=== PATIENT | female | born 1960 | race Caucasian/White ===

== ENCOUNTER 2023-03-07 16:28 | Outpatient (OUT) | payer OTHER, SELFPAY ==
--- NOTE | 2023-03-07 16:32 | XR_ITS ---
The [address] [address] Patient Name: MIRIAM DE PAZ MRN: [id number] date: 1960 Sex: F Assigned Patient Location: [facility] Current Patient Location: RAD Accession/Order Number: [id number] Exam Date: 03/07/2023 16:35 Report Date: 03/07/2023 16:55 At the request of: ULI MATHEW Procedure: XR chest 2V EXAM: XR chest 2V HISTORY: PNEUMONIA. J18.9 . Follow-up study. COMPARISON: 02/22/2023 TECHNIQUE: Upright PA and lateral chest x-ray FINDINGS: Significant infiltrates are seen in the lower lungs. The upper lungs are clear and there is no evidence of an effusion or pneumothorax. The heart is not enlarged and the vasculature is not distended. The osseous structures are grossly intact. XR/XR chest 2V IMPRESSION: Significant infiltrates are seen in the lower lungs. These are slightly more prominent since the prior study. There is no clear evidence of an effusion or pneumothorax. There is no evidence of cardiac decompensation. Further evaluation with a CT scan of the chest is recommended. Electronically authenticated by: ELIDIA HERRERA Date: 03/07/2023 16:55
== END 2023-03-07 16:29 | disposition home or self-care (01) ==
LOC: RAD 16:31
PROVIDERS: PCP Family Medicine; Visit Provider Internal Medicine
DX: J18.9 Pneumonia, unspecified organism (principal)
CPT/HCPCS: 71046

== ENCOUNTER 2023-03-21 14:31 | Outpatient (OUT) | payer OTHER, SELFPAY ==
--- NOTE | 2023-03-21 14:50 | CT_ITS ---
[address] [address] Patient Name: MIRIAM DE PAZ MRN: [id number] date: 1960 Sex: F Assigned Patient Location: CT Current Patient Location: CT Accession/Order Number: [id number] Exam Date: 03/21/2023 14:45 Report Date: 03/21/2023 15:33 At the request of: ULI MATHEW Procedure: CT chest wo con CT chest wo con, 03/21/2023 2:45 PM EDT INDICATION: Pneumonia J18.9, Bronchiestasia J47.9 COMPARISON: Radiograph the chest 02/22/2023 TECHNIQUE: Thin-section axial CT images of the chest were acquired without contrast. Supplemental 2D reformatted images were generated and reviewed as needed. Dose reduction techniques were achieved by using automated exposure control and/or adjustment of mA and/or kV according to patient size and/or use of iterative reconstruction technique. FINDINGS: Heart is upper limits of normal for size. Small pericardial effusion. Coronary artery calcification and calcified atherosclerotic change within the aorta. No aortic aneurysm. Enlarged precarinal lymph node 1.3 cm short axis. Enlarged aortopulmonary lymph node 1.6 cm short axis. No axillary lymphadenopathy. Calcified granulomas within the right lung. Bronchiectasis with extensive mucous plug in the right upper lobe, right middle lobe, lingula and lower lobes bilaterally. No pleural effusion. Septal thickening with focal peripheral reticular nodular opacities bilaterally. Hepatic cysts and subcentimeter hepatic hypodensities, too small to characterize. 8 mm lucent lesion T11 vertebral body. No acute fracture or dislocation. CT/CT chest wo con IMPRESSION: 1. Bronchiectasis with extensive mucous plug throughout the lung parenchyma bilaterally with increased conspicuity in the right and lower lobes. No pleural effusion. 2. Mediastinal lymphadenopathy. 3. Small pericardial effusion. 4. Multi lobar reticulonodular opacities. 5. Lucent lesion T11 vertebral body likely hemangioma but is nonspecific. Electronically authenticated by: DASHAWN PANDEY Date: 03/21/2023 15:33
== END 2023-03-21 14:32 | disposition home or self-care (01) ==
LOC: CT 14:31
PROVIDERS: PCP Family Medicine; Visit Provider Internal Medicine
DX: J18.9 Pneumonia, unspecified organism (principal); J47.9 Bronchiectasis, uncomplicated
CPT/HCPCS: 71250

== ENCOUNTER 2023-03-24 10:24 | Outpatient (OUT) | payer OTHER, SELFPAY | END 2023-03-24 10:25 | disposition home or self-care (01) | LOC: PST 10:24 | PROVIDERS: PCP Family Medicine; Visit Provider Internal Medicine | DX: Z01.818 Encounter for other preprocedural examination (principal); J47.9 Bronchiectasis, uncomplicated; J98.09 Other diseases of bronchus, not elsewhere classified ==

== ENCOUNTER 2023-03-30 07:28 | Day surgery (SDC) | payer OTHER, SELFPAY ==
[2023-03-24 11:30] VITALS: BP 133/82; PULSE 85; RESP 20; TEMP 36.2; O2SAT 94; BMI 20.2
[2023-03-30] VITALS (19 sets, daily range): BP systolic 90–126; BP diastolic 70–88; PULSE 70–135; RESP 15–39; TEMP 36.9; O2SAT 87–100; BMI 20.3
[2023-03-30] MEDS: LACTATED RINGER'S SOLUTION 1,000 ML 50 ML IV (08:01)
--- NOTE | 2023-03-30 09:59 | P.ON_ITS ---
Date of procedure: 03/30/23 Pre-op diagnosis: Bronchiectasis with diffuse mucus plugging on CT chest Post-op diagnosis: same as pre-op (1. Mucus plugging in large and small airways/excessive secretions; 2. Chronic inflammation; 3. No endobronchial lesions) Procedure: Procedure Diagnostic and therapeutic flexible bronchoscopy with bronchoalveolar lavage of the left lower and right lower lobes. Description Informed consent was obtained after risks, benefits, and alternatives were discussed with the patient.? Time out was initiated to confirm the correct patient, site, and procedure with all present voicing in the affirmative. Patient was brought to the operating room suite where noninvasive monitoring was utilized.? Sedation & anesthesia were administered by the anesthesia department- please refer to their records for further information.? Tape was placed over the patient's eyes to prevent spillage of secretions.? An i-Gel airway was placed by anesthesia.? The vocal cords were observed without gross evidence of nodules, ulcers, or masses.? 5mL of 1% lidocaine were instilled topically to the vocal cords.? The bronchoscope was then passed between the vocal cords and advanced through the trachea. A large amount of creamy secretions were encountered in the trachea, which the patient then coughed out through the i-Gel. The bronchoscope was retracted and secretions were suctioned. It was difficult to assess the airways given the significant amount of secretions, so I elected to clear the large airways of secretions to allow for closer inspection. There was a copious amount of secretions in the large airways. Normal saline was flushed into the airways to loosen the secretions. They were tenacious but thin enough that they were able to pass through the working channel with suction. The secretions were malodorous. Once the main airways were cleared of secretions, I was able to better examine the airways. The bronchoscope visualized the distal trachea, main chanelle, and bronchus intermedius. The bronchoscope was then advanced through the right main bronchus to the right upper lobe, where the apical, posterior, and anterior segments were visualized.? The bronchoscope was advanced through the bronchus intermedius to the right middle lobe which had a constricted opening. I was able to wedge the scope into the right middle lobe and visualize the medial and lateral segments.? The bronchoscope was then advanced to the right lower lobe superior, medial, anterior, lateral, and posterior basilar segments.? No endobronchial lesions were seen. The airways were friable and appeared inflamed with whitish exudate. The bronchoscope was retracted to the main chanelle and advanced through the left main bronchus to the left upper lobe where the upper division apicoposterior and anterior, as well as lingular superior and inferior segments were visualized.? The bronchoscope was then advanced into the left lower lobe where the superior, anteromedial, lateral, and posterior basilar segments visualized.? Findings were similar to the right lung, though inflammation was not as prominent. Next, a bronchoalveolar lavage was obtained from the left lower lobe. Once an adequate sample was obtained, further lavage was performed of the lower lobe. Despite aggressive irrigation, secretions continued to present from the left lower lobe. The bronchoscope was moved into the left upper lobe and light lavage was performed, as mucus was not as heavy here. More secretions were forming from the left lower lobe and further lavage was performed. The bronchoscope was then advanced to the right lower lobe where a second bronchoalveolar lavage was obtained. Secretions were so significant that the trap nearly filled with only a mild amount (~10mL) of instilled saline. After the sample was obtained, further lavage was performed of the right lower lobe, and then the right upper and middle lobes. The patient continued to produce secretions with mucus plugs bilaterally, mainly from the lower lobes. After further irrigations of the lower lobes, secretions decreased some, and the decision was made to stop at this time. The bronchoscope was retracted. The patient was transferred to PACU. The patient's was updated on the patient's condition (with her verbal consent). Final diagnosis pending cultures - I did not feel a need to assess for cytology at this current time. Specimens Left lower and right lower lobe bronchoalveolar lavages sent for cultures, including AFB and fungal as she has a history of MAC and cryptococcus. Anesthesia: MAC Surgeon: Stevie Fajardo Estimated blood loss (mL): 0 Pathology: none sent Condition: stable Disposition: PACU
--- NOTE | 2023-03-30 10:05 | PC.NURSE ---
Patient brought to pacu coughing with a simple face mask and 8 liters of oxygen. Denies pain and is rapidly breathng along with the cough. Patient also brought to PACU with a tachy heary rate. Anesthesia has give 15 mg esmolol to help decrease heart rate
--- NOTE | 2023-03-30 10:12 | ECG_ITS ---
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
--- NOTE | 2023-03-30 10:19 | PC.NURSE ---
Patient continues to cough post procedure with rapid heart rate and rapid breathing. Denies pain. Anesthesiologist requested 12 lead ekg in the process of being done now
--- NOTE | 2023-03-30 10:29 | PC.NURSE ---
Switched patient 3 liters oxygen via nasal cannula. Anethesiaologist gave 1 miligram of Metoprolol at this time.
--- NOTE | 2023-03-30 11:01 | PC.NURSE ---
Spoke to Anethesia it is ok to transfer patient to phase 2 on 1 liter of oxygen. Patient 's breathing has slowed down , heart rate has gone down . Patient states she is just sleepy
--- NOTE | 2023-03-30 11:03 | PC.NURSE ---
Anethesia is aware patient is still on 1 liter of oxygen and is ok to move to phase 2
--- NOTE | 2023-03-30 11:23 | PC.NURSE ---
continue with vital sign monitoring due to low saturations and rapid heart rate which is much improved
--- NOTE | 2023-03-30 12:41 | PC.NURSE ---
spoke with Dr. Fajardo about oxygen saturation of tis patient. Patient ranges from 89% to 93% on room air. Dr. Fajardo says to have patient cough and try and spit out mucus as much as possible. He states he is ok with her going home.
== END 2023-03-30 12:44 | disposition home or self-care (01) ==
PROVIDERS: PCP Family Medicine; Visit Provider Internal Medicine
PROC: (CPT 31624; principal; 2023-03-30 08:30)
DX: J47.9 Bronchiectasis, uncomplicated (principal); J98.09 Other diseases of bronchus, not elsewhere classified; K21.9 Gastro-esophageal reflux disease without esophagitis; G35 Multiple sclerosis; N31.9 Neuromuscular dysfunction of bladder, unspecified; C50.912 Malignant neoplasm of unspecified site of left female breast; Z86.19 Personal history of other infectious and parasitic diseases
CPT/HCPCS: 31624; 87070; 87102; 87116; 87205; 87206; 93005; 99999; J2704

== ENCOUNTER 2023-04-22 11:34 | Outpatient (OUT) | payer OTHER, SELFPAY | END 2023-04-22 11:35 | disposition home or self-care (01) | LOC: LAB 11:37 | PROVIDERS: PCP Family Medicine; Visit Provider Family Medicine | DX: J47.9 Bronchiectasis, uncomplicated (principal) | CPT/HCPCS: 87070 ==

== ENCOUNTER 2023-10-31 14:29 | Outpatient (OUT) | payer MEDICARE, OTHER, SELFPAY ==
--- NOTE | 2023-10-31 14:36 | XR_ITS ---
The [address] [address] Patient Name: MIRIAM DE PAZ MRN: [id number] date: 1960 Sex: F Assigned Patient Location: RAD Current Patient Location: RAD Accession/Order Number: [id number] Exam Date: 10/31/2023 14:44 Report Date: 10/31/2023 15:34 At the request of: ULI MATHEW Procedure: XR chest 2V EXAM: XR chest 2V HISTORY: Bronchiectasis. COMPARISON: 03/07/2023. TECHNIQUE: 2 views chest FINDINGS: There is progression of right perihilar, right middle, and bilateral lower lobe airspace disease since prior study. There is also mild airspace disease in the left perihilar upper lobe and lingula. There is bronchiectasis and bronchial wall thickening that is slightly worse. No effusion. No pneumothorax. There is aortic atherosclerosis and normal heart size. There are degenerative changes of the spine with mild scoliosis. XR/XR chest 2V IMPRESSION: 1. Progression of chronic multilobar pneumonia throughout both lungs. There are right worse than left perihilar to bilateral lower lobe consolidation since prior study 03/07/2023. There is bronchitis and chronic bronchiectasis that appears slightly worse. No significant effusion. Continued clinical and radiographic follow-up is recommended. Electronically authenticated by: CHARLEE PINEDO Date: 10/31/2023 15:34
== END 2023-10-31 14:30 | disposition home or self-care (01) ==
LOC: RAD 14:32
PROVIDERS: PCP Family Medicine; Visit Provider Internal Medicine
DX: J47.9 Bronchiectasis, uncomplicated (principal); J18.9 Pneumonia, unspecified organism
CPT/HCPCS: 71046

== ENCOUNTER 2023-11-01 13:35 | Outpatient (REF) | payer MEDICARE, OTHER, SELFPAY | END 2023-11-01 13:36 | disposition home or self-care (01) | LOC: LAB 13:35 | PROVIDERS: PCP Family Medicine; Visit Provider Internal Medicine | DX: J47.9 Bronchiectasis, uncomplicated (principal) | CPT/HCPCS: 87070; 87102; 87205; 87206 ==

== ENCOUNTER 2024-01-29 10:48 | Outpatient (REF) | payer MEDICARE, OTHER, SELFPAY ==
[2024-01-29 11:14] LABS: Internal Control Within Normal Limits; SARS-CoV-2 Ag POSITIVE (NEGATIVE)
== END 2024-01-29 10:49 | disposition home or self-care (01) ==
LOC: LAB 10:48
PROVIDERS: PCP Family Medicine; Visit Provider Family Medicine
DX: R50.9 Fever, unspecified (principal)
CPT/HCPCS: 87811

== ENCOUNTER 2024-03-08 12:47 | Outpatient (OUT) | payer MEDICARE, OTHER, SELFPAY ==
--- NOTE | 2024-03-08 12:57 | ECG_ITS ---
The 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
--- OUTSIDE RECORDS SUMMARY | 2024-03-08 13:01 | XMS_ITS | CCD ---
Author Organization [facility] Care Team Providers Care 3Rd Pressman Name Role Phone VAIBHAVY ., DR REED Admitting Unavailable HOY ., DR REED Primary Care Unavailable HOY ., DR REED Attending Unavailable HOY ., DR REED Consulting Unavailable HOY ., DR REED Primary Care Unavailable HOY ., DR REED Admitting Unavailable HOY ., DR REED Attending Unavailable HOY ., DR REED Consulting Unavailable ZIEBER, DR LUCIEN Morel Consulting Unavailable HOY ., DR REED Consulting Unavailable HOY ., DR REED Admitting Unavailable HOY ., DR REED Primary Care Unavailable HOY ., DR REED Attending Unavailable HOY ., DR REED Admitting Unavailable HOY ., DR REED Primary Care Unavailable HOY ., DR REED Attending Unavailable HOY ., DR REED Consulting Unavailable HOY ., DR REED Admdavid Unavailable HOY ., DR REED Primary Care Unavailable HOY ., DR REED Attending Unavailable HOY ., DR REED Consulting Unavailable HOY ., DR REED Primary Care Unavailable HOY ., DR REED Admitting Unavailable HOY ., DR REED Attending Unavailable HOY ., DR REED Primary Care Unavailable HOY ., DR REED Admitting Unavailable HOY ., DR REED Attending Unavailable HOY ., DR REED Consulting Unavailable HOY ., DR REED Admitting Unavailable HOY ., DR REED Primary Care Unavailable HOY ., DR REED Attending Unavailable HOY ., DR REED Consulting Unavailable VaibhavyBrianna Primary Care Physician ALANA MENDEZ Attending Unavaila abelino MENDEZ, ALANA Referring Unavaila abelino MENDEZ, ALANA Attending Unavaila KELIN aZvala Attending Unavailable KATHRYN, ALANA Attending Unavaila KELIN Zavala Attending Unavailable ALANA MENDEZ Attending Unavaila abelino MENDEZ, ALANA Attending Unavaila Brianna Benjamin MD Primary Care Provider [phone] SELF Referring Unavailable CHRIS BAUM Attending Unavailable BRIANNA YANEZ Primary Care Unavailable Lauro Simon Attending Unavailable Al-Marrawi, Masoodd Yaser Admitting Unavailabl e Al-Marrawi, Mhd Yaser Attending Unavailabl e Al-Marrawi, Mhd Yaser Attending Unavailabl e Al-Marrawi, Masoodd Yaser Admitting Unavailmichelle e Lauro Simon Attending Unavailable Al-Marrawi, Neftali Yaser Attending Unavailabl e Al-Marrawi, Mhd Yaser Referring Unavailabl e Al-Marrawi, Mhd Yaser Admitting Unavailabl e Sondra, Muna Fuentes Admitting Unavailable Muna Amaro Attending Unavailable Al-Marrawi, Neftali Yaadán Attending Unavailabl e Al-Marrawi, Mhd Yaser Admitting Unavailabl e Al-Marrawi, Mhd Yaser Attending Unavailmichelle e Lauro Simon Referring Unavailable Al-Yesenia, Neftali Ling Attending Unavailabl e Lauro Simon Attending Unavailable Al-Yesenia, Neftali Ling Attending Unavailabl e Muna Amaro Attending Unavailable NONE, XXXX Referring Unavailable Mehdi Jackson Attending Unavailable Negin Lobato Consulting Unavailab Lauro Husain Attending Unavailable Lauro Simon Referring Unavailable Lauro Simon Admitting Unavailable Tee Lobato Consulting Unavailable Tee Lobato Consulting Unavailable Tee Lobato Consulting Unavailable Tee Lobato Consulting Unavailable Tee Lobato Consulting Unavailable Tee Lobato Consulting Unavailable Tee Lobato Consulting Unavailable Tee Lobato Consulting Unavailable Tee Lobato Consulting Unavailable Lauro Simon Attending Unavailable Lauro Simon Attending Unavailable Lauro Simon Attending Unavailable Lauro Simon Attending Unavailable Muna Amaro Attending Unavailable Demboske, Muna Gina Admitting Unavailable MICHAEL BUKCLEY Referring Unavailable Allergies Allergy Classification Reported Allergen(s) Allergy Type Date of Onset Reaction(s) Facility (1 source) ALLERGIES NOT ON FILE; Translations: [ALLERGIES NOT ON FILE] Propensity to adverse reactions (disorder) [facility] (2 sources) No Known Medication Allergies; Translations: [No Known Medication Allergies] Propensity to adverse reactions (disorder) [facility] Rep[facility] Medications Current Medications Medication Drug Class(es) Dates Sig (Normalized) Sig (Original) albuterol 0.83 mg/ml inhalation solution (1 source) beta2-Adrenergic Agonist Start: 08-13-2019 take 3 mL by inhalation three times daily as needed albuterol (PROVENTIL) 2.5 mg /3 mL (0.083 %) nebulizer solution Indications: Bronchiectasis without complication (HCC) , Chronic cough Use 3 mL via nebulizer three times daily as needed. Inhale over 5-15 minutes 120 Vial 5 08/13/2019 Active calcium carbonate 1250 mg oral tablet (1 source) take 1 tablet by mouth once daily calcium carbonate (OS-TONY 500) 500 mg calcium (1,250 mg) tablet Take 1 tablet by mouth once daily. 0 Active cholecalciferol 0.05 mg oral tablet (1 source) Vitamin D take 1 tablet by mouth once daily cholecalciferol (VITAMIN D-3) 2,000 unit tablet Take 2,000 Units by mouth once daily. 0 Active ipratropium bromide 0.021 mg/actuat metered dose nasal spray (1 source) Anticholinergic Start: 07-19-2017 take 2 spray(s) nasal route twice daily Ipratropium Rudyard (ATROVENT) 0.03 % nasal spray Indications: Chronic vasomotor rhinitis Use 2 Sprays in each nostril twice daily. for up to three(3) weeks 1 Bottle 1 07/19/2017 Active letrozole 2.5 mg oral tablet (11 sources) Aromatase Inhibitor Start: 12-04-2023 take 1 tablet by mouth once daily letrozole 2.5 mg Tab 2.5 mg = 1 tab(s), Oral, Daily, # 90 tab(s), Refills(s) 1, Pharmacy: [facility]/pharmacy #[id number], 165, cm, 12/04/23 14:36:00 EDT, Height/Length Dosing, 54.8, kg, 12/04/23 14:36:00 EDT, Weight Dosing Start Date: 12/04/23 Status: Ordered Start: 05-22-2023 End: 11-18-2023 take 1 tablet by mouth once daily Femara 2.5 mg Tab 2.5 mg = 1 tab(s), Oral, Daily, Do not start until 1 week after radiation is finished., X 30 day(s), # 30 tab(s), Refills(s) 5, Pharmacy: [facility]/pharmacy #[id number], 165, cm, 05/22/23 14:14:00 EST, Height/Length Dosing, 56, kg, 05/22/23 14:14:00 EST, Weight Dosing Start Date: 05/22/23 Stop Date: 11/18/23 Status: Ordered levoFLOXacin 500 mg oral tablet (5 sources) Quinolone Antimicrobial Start: 11-06-2023 levofloxacin 500 mg Tab 10 tab(s), 0 Refill(s), Refills(s) 0 Start Date: 11/06/23 Status: Ordered Nebulizer and Compressor For Neb magdi (1 source) Start: 10-04-2016 Nebulizer and Compressor For Neb magdi Indications: Bronchiectasis without complication (HCC) , Chronic cough 1 Device as needed. Use as directed. 1 Device 0 10/04/2016 Active predniSONE (13 sources) Start: 05-01-2023 predniSONE Refills(s) 0 Start Date: 05/01/23 Status: Ordered risedronate sodium 35 mg oral tablet (1 source) Start: 09-04-2023 take 1 tablet by mouth every week Actonel 35 mg oral tablet 35 mg = 1 tab(s), Oral, qWeek, Take with full glass of 8oz plain water, at least 30 minutes before first food, beverage, or medication of the day. Remain in upright position for at least 30 minutes after taking., # 12 tab(s), Refills(s) 1, Pharmacy: [facility]/pharmacy #[id number], 165, cm, 09/04/23 14:48:00 EST, Height/Length Dosing, 56.1, kg, 09/04/23 14:48:00 EST, Weight Dosing Start Date: 09/04/23 Status: Ordered Sodium Chloride (17 sources) Start: 02-22-2023 Sodium Chloride, Inhalation 0.9% inhalation solution 1 dose, Inhalation, Daily, Other (see comment) Start Date: 02/22/23 Status: Ordered sodium chloride 0.9 % nebulizer solution Use 3 mL via nebulizer as needed. 0 Active Completed/Discontinued Medications Medication Drug Class(es) Dates Sig (Normalized) Sig (Original) alendronic acid 70 mg oral tablet (5 sources) Bisphosphonate Start: 01-05-2024 take 6-8 [oz_av] by mouth once daily alendronate 70 mg Tab 70 mg = 1 tab(s), Oral, q7day, with 6-8 oz plain water, at least 30 minutes before first food, beverage, or medication of the day, # 12 tab(s), Refills(s) 1, Pharmacy: [facility]/pharmacy #[id number], 165, cm, 12/04/23 14:36:00 EDT, Height/Length Dosing, 54.8, kg, 12/04/23 14:36:00 EDT, Weight Dosing Start Date: 01/05/24 Status: Ordered Start: 09-19-2023 take 6-8 [oz_av] by mouth once daily alendronate 70 mg Tab 70 mg = 1 tab(s), Oral, q7day, with 6-8 oz plain water, at least 30 minutes before first food, beverage, or medication of the day, # 12 tab(s), Refills(s) 1, Pharmacy: [facility]/pharmacy #[id number], 165, cm, 09/04/23 14:48:00 EST, Height/Length Dosing, 56.1, kg, 09/04/23 14:48:00 EST, Weight Dosing Start Date: 09/19/23 Status: Ordered latanoprost 0.05 mg/ml ophthalmic solution (17 sources) Prostaglandin Analog Start: 01-30-[address] Opth 0.005% Nita 1 drop(s), Eye-Both, qPM, Refill(s) 0, Other (see comment) Start Date: 01/30/23 Status: Ordered take 1 drop(s) into the eye(s) once daily at bedtime latanoprost (XALATAN) 0.005 % ophthalmic solution Use 1 Drop in both eyes daily at bedtime. 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 02-22-2023 Episodic Cancer of breast (20 sources) Malignant tumor of breast ; Translations: [Malignant neoplasm of unspecified site of left female breast] Onset: 05-01-2023 02-20-2023 Chronic Cancer of breast (13 sources) Personal history of malignant neoplasm of breast; Translations: [History of malignant neoplasm of breast] Onset: 08-07-2023 Episodic Chronic obstructive pulmonary disease and bronchiectasis (20 sources) Bronchiectasis, uncomplicated; Translations: [Chronic obstructive pulmonary disease, unspecified] Onset: 09-14-2016 Chronic Multiple sclerosis (18 sources) Multiple sclerosis; Translations: [Multiple sclerosis] Onset: 08-31-2010 01-30-2023 Chronic Other aftercare (4 sources) Follow-up status; Translations: [Encounter for follow-up examination after completed treatment for malignant neoplasm] Onset: 08-07-2023 Episodic Other bone disease and musculoskeletal deformities (1 source) Disorder of bone; Translations: [Other specified disorders of bone density and structure, unspecified site] Onset: 09-04-2023 Episodic Other hematologic conditions (1 source) Abnormal finding on evaluation procedure; Translations: [Other specified abnormalities of plasma proteins] Onset: 09-04-2023 Episodic Other lower respiratory disease (15 sources) H/O: respiratory disease 02-24-2023 Episodic Other screening for suspected conditions (not mental disorders or infectious disease) (20 sources) Encounter for screening for malignant neoplasm of rectum; Translations: [Mammography abnormal] Onset: 07-12-2022 Episodic Pneumonia (except that caused by tuberculosis or sexually transmitted disease) (18 sources) Pneumonia; Translations: [Pneumonia, unspecified organism] Onset: 09-14-2016 02-22-2023 Episodic Unclassified (1 source) CONTACT W/AND (SUSP) EXPOS COVID-19; Translations: [CONTACT W/AND (SUSP) EXPOS COVID-19] Onset: 09-18-2022 Unclassified (16 sources) Body mass index 20-24 - normal 02-20-2023 Unclassified (2 sources) OTV; Translations: [OTV] Onset: 07-27-2023 Viral infection (4 sources) COVID-19; Translations: [COVID-19] Onset: 04-16-2022 Past or Other Problems Problem Classification Problem Date Documented Da te Episodic/Chronic Other connective tissue disease (4 sources) Pain in right foot; Translations: [PAIN IN RIGHT FOOT] Onset: 01-10-2022 Episodic Other connective tissue disease (1 source) Pain in right toe(s); Translations: [PAIN IN RIGHT TOES] Onset: 01-13-2022 Episodic Other lower respiratory disease (1 source) Radiologic infiltrate of lung ; Translations: [Other nonspecific abnormal finding of lung field] Onset: 08-31-2010 08-31-2010 Episodic Other lower respiratory disease (1 source) Multiple nodules of lung; Translations: [Other nonspecific abnormal finding of lung field] Onset: 08-31-2010 08-31-2010 Episodic Other upper respiratory infections (4 sources) Acute sinusitis, unspecified; Translations: [ACUTE SINUSITIS UNSPECIFIED] Onset: 03-22-2022 Episodic Residual codes; unclassified (2 sources) Estrogen receptor positive status [ER+]; Translations: [Estrogen receptor positive status (ER+)] Onset: 05-25-2023 Episodic Skin and subcutaneous tissue infections (4 sources) Cellulitis, unspecified; Translations: [CELLULITIS UNSPECIFIED] Onset: 01-03-2022 Episodic Results Test Name Value Interpretation Reference Range Facility BI MAMMOGRAM SCREENING TOMOS YNTSHILAIS BILATERALon 03-01-2024 BI MAMMOGRAM SCREENING TOMOSYNTHESIS BILATERAL This is a summary report. The complete report is available in the patient's medical record. If you cannot access the medical record, please contact the sending organization for a detailed fax or copy. EXAMINATION: BI MAMMOGRAM SCREENING TOMOSYNTHESIS BILATERAL CLINICAL HISTORY:screening COMPARISON: January 05, 2023. RESULT: Density: There are scattered areas of fibroglandular density Overall appearance is stable. Left axillary tail surgical clips. There is no suspicious mass, asymmetry, architectural distortion, or calcification IMPRESSION: BIRADS 2 - Benign Follow-up: Routine Screening Mamm Board Certified Radiologists. Accredited by the ACR and FDA. MAMMOGRAPHY IS VERY IMPORTANT TO YOUR HEALTH. THE [employer] GUIDELINES RECOMMEND THAT WOMEN 40 YEARS OF AGE AND OLDER SHOULD HAVE A MAMMOGRAM EVERY YEAR. A REMINDER LETTER WILL BE SENT AT THE APPROPRIATE TIME. THIS FACILITY UTILIZES A REMINDER SYSTEM TO ENSURE ALL PATIENTS RECEIVE REMINDER NOTIFICATIONS AT THE APPROPRIATE TIME BASED ON THE RECOMMENDATIONS OF THIS EXAM. THIS INCLUDES REMINDERS FOR ROUTINE SCREENING MAMMOGRAMS, DIAGNOSTIC MAMMOGRAMS IN WHICH THE PATIENT IS ASKED TO RETURN FOR ADDITIONAL VIEWS, OR OTHER BREAST IMAGING INTERVENTIONS WHEN APPROPRIATE. THE PATIENT WILL BE PLACED IN THE APPROPRIATE REMINDER SYSTEM INCLUDING A REMINDER AT THE APPROPRIATE TIME FOR ANY PENDING ADDITIONAL VIEWS. TRANSCRIBED BY: ELECTRONICALLY SIGNED BY: Juma Garcia MD Normal Not Available Comment on above: Order Comment: Spot compression and us prn CHEMISTRYOrdered By: SYSTEM SYSTEM on 02-26-2024 Albumin [Mass/Vol] 4.1 g/dL Normal 3.3 - 5.0 gm/dL Remisol Chem Albumin/Globulin [Mass ratio] 1.1 {ratio} Normal 1.1 - 2.2 Remisol Chem ALP [Catalytic activity/Vol] 47 [iU]/d Normal 21 - 98 Int._Unit/L Remisol Chem ALT No additional P-5'-P [Catalytic activity/Vol] 9 [iU]/d Normal 6 - 46 Int._Unit/L [facility] Anion gap [Moles/Vol] 11 mmol/L Normal 6 - 16 mEq/L R emisol Chem AST [Catalytic activity/Vol] 16 [iU]/d Normal 5 - 43 Int._Unit/L [facility] Bilirubin [Mass/Vol] 0.4 mg/dL Normal 0.0 - 1 .1 mg/dL [facility] Calcium [Mass/Vol] 9.8 mg/dL Normal 8.9 - 11. 1 mg/dL [facility] Chloride [Moles/Vol] 102 mmol/L Normal 101 - 1 11 mmol/L [facility] CO2 [Moles/Vol] 27 mmol/L Normal 21 - 31 mmol/L [facility] Creatinine [Mass/Vol] 0.6 mg/dL Normal 0.5 - 1.3 mg/dL [facility] eGFR 99 mL/min/1.73 m2 Normal >=59mL/min /1 .73 m2 [facility] Globulin (S) [Mass/Vol] 3.7 g/dL Normal 1.4 - 4.0 gm/dL [facility] Glucose [Mass/Vol] 67 mg/dL Normal 55 - 199 mg/dL [facility] Potassium [Moles/Vol] 4.2 mmol/L Normal 3.5 - 5.3 mmol/L [facility] Protein [Mass/Vol] 7.8 g/dL Normal 6.0 - 7.8 gm/dL [facility] Sodium [Moles/Vol] 136 mmol/L Normal 135 - 145 mmol/L [facility] Urea nitrogen [Mass/Vol] 15 mg/dL Normal 5 - 21 mg/dL Rem[facility] Chem Urea nitrogen/Creatinine [Mass ratio] 25 mg/mg High 10 - 20 Remisol [facility] CMPon 02-26-2024 Albumin [Mass/Vol] 4.1 g/dL Normal 3.3-5.0 [facility] Comment on above: Performed By: #### 2 [id number] #### [facility] [address] [place] [address] Albumin/Globulin (S) [Mass conc ratio] 1.1 Normal 1.1-2.2 [facility] Comment on above: Performed By: #### 2 [id number] #### [facility] [address] [place] [address] ALP [Catalytic activity/Vol] 47 Int._Unit/L Normal 21-98 [facility] Comment on above: Performed By: #### 2 [id number] #### [facility] [address] [place] [address] ALT No additional P-5'-P [Catalytic activity/Vol] 9 Int._Unit/L Normal 6-46 [facility] Comment on above: Performed By: #### 2 [id number] #### [facility] [address] [place] [address] Anion gap [Moles/Vol] 11 mmol/L Normal 6-16 [facility] Comment on above: Performed By: #### 2 [id number] #### [facility] [address] [place] [address] AST [Catalytic activity/Vol] 16 Int._Unit/L Normal 5-43 [facility] Comment on above: Performed By: #### 2 [id number] #### [facility] [address] [place] [address] Bilirubin [Mass/Vol] 0.4 mg/dL Normal 0.0-1.1 [facility] Comment on above: Performed By: #### 2 [id number] #### [facility] [address] [place] [address] Calcium [Mass/Vol] 9.8 mg/dL Normal 8.9-11.1 [facility] Comment on above: Performed By: #### 2 [id number] #### [facility] [address] [place] [address] Chloride [Moles/Vol] 102 mmol/L Normal 101-111 [facility] Comment on above: Performed By: #### 2 [id number] #### [facility] [address] [place] [address] CO2 [Moles/Vol] 27 mmol/L Normal 21-31 [facility] Comment on above: Performed By: #### 2 [id number] #### [facility] [address] [place] [address] Creatinine [Mass/Vol] 0.6 mg/dL Normal 0.5-1.3 [facility] Comment on above: Performed By: #### 2 [id number] #### [facility] [address] [place] [address] Globulin (S) [Mass/Vol] 3.7 g/dL Normal 1.4-4.0 [facility] Comment on above: Performed By: #### 2 [id number] #### [facility] [address] [place] [address] Glucose [Mass/Vol] 67 mg/dL Normal 55-199 [facility] Comment on above: Performed By: #### 2 [id number] #### [facility] [address] [place] [address] Potassium [Moles/Vol] 4.2 mmol/L Normal 3.5-5.3 [facility] Comment on above: Performed By: #### 2 [id number] #### [facility] [address] [place] [address] Protein [Mass/Vol] 7.8 g/dL Normal 6.0-7.8 [facility] Comment on above: Performed By: #### 2 [id number] #### [facility] [address] [place] [address] Sodium [Moles/Vol] 136 mmol/L Normal 135-145 [facility] Comment on above: Performed By: #### 2 [id number] #### [facility] [address] [place] [address] Urea nitrogen [Mass/Vol] 15 mg/dL Normal 5-21 [facility] Comment on above: Performed By: #### 2 [id number] #### [facility] [address] [place] [address] Urea nitrogen/Creatinine [Mass ratio] 25 No Units High 10-20 [facility] Comment on above: Performed By: #### 2 [id number] #### [facility] [address] [place] [address] General Surgery Office/Clini c Noteon 02-26-2024 General Surgery Office/Clinic Note General Surgery Office/Clinic Note Chief Complaint Hormone positive left breast cancer surveillance visit HPI Staff Emeli is a 63 y.o. female here for 3 month follow up Hx of left breast cancer s/p [place] Node biopsy of left done 04/11/2023 Denies breast changes She continues with letrozole 2.5 mg History of Present Illness 63-year-old female currently on hormone therapy following left breast needle localized lumpectomy left axillary sentinel lymph node biopsy performed on April 11, 2023 this is her 3-month follow-up. Patient denies any issues with hormone therapy. Denies any shoulder pain or range of motion issues. Review of Systems PHQ Score Initial Depression Screen Score: 0 SCORE Negative other than as stated as above Physical Exam Vitals & Measurements HR: 90(Peripheral) BP: 145/96 HT: 65 in HT: 165 cm WT: 54 kg WT: 118.8 lb BMI: 19.83 Left breast incision clean dry intact healing well left axillary incision is completely healed left breast exam completely normal left axillary exam completely normal right breast exam normal right axillary exam normal Assessment/Plan 63-year-old female hormone positive cancer status post needle localized lumpectomy sentinel lymph node biopsy performed March 2023 doing well since is currently on hormone therapy 1. Breast cancer, left (C50.912: Malignant neoplasm of unspecified site of left female breast) Follow-up 3 months continue hormone therapy per medical oncology 2. Encounter for follow-up surveillance of breast cancer (Z08: Encounter for follow-up examination after completed treatment for malignant neoplasm) As above Ordered: E&M of Est. Patient Low 20-29 Min 06015 Personal history of malignant neoplasm of breast (Z85.3: Personal history of malignant neoplasm of breast) As above Portions of this record may have been created with voice recognition artificial intelligence software, specifically [employer], [email or web address] and or [employer]. Substitutions may have occurred due to the inherent limitations of voice recognition and artificial intelligence software. Follow-up No qualifying data available Problem List/Past Medical History Ongoing Abnormal mammogram of left breast BMI 22.0-22.9, adult Breast cancer, left Encounter for follow-up surveillance of breast cancer Multiple sclerosis Personal history of bronchiectasis Historical Bronchiectasis Procedure/Surgical History Biopsy of lymph node (04/11/2023), Bronchoscopy (06/16/2021), Biopsy of breast, section. Medications alendronate 70 mg Tab, 70 mg= 1 tab(s), Oral, q7day, 1 refills latanoprost Opth 0.005% Nita, 1 drop(s), Eye-Both, qPM letrozole 2.5 mg Tab, 2.5 mg= 1 tab(s), Oral, Daily, 1 refills levofloxacin 500 mg Tab predniSONE Sodium Chloride, Inhalation 0.9% inhalation solution, 1 dose, Inhalation, Daily Vitamin D 50,000 intl units (1.25 mg) oral capsule, [address] International_Unit= 1 cap(s), Oral, qWeek Allergies No Known Allergies No Known Medication Allergies Social History Alcohol - Denies Alcohol Use, 02/22/2023 Substance Abuse - Denies Substance Abuse, 02/22/2023 Tobacco - Denies Tobacco Use, 02/22/2023 Never (less than 100 in lifetime) Tobacco Use:. Never Smokeless Tobacco Use:. Household tobacco concerns: No., 02/26/2024 Immunizations Vaccine Date Status Comments influenza virus vaccine, inactivated - Not Given Postpone due to refusal influenza virus vaccine, inactivated 04/15/2022 Recorded influenza virus vaccine, inactivated 05/02/2021 Recorded SARS-CoV-2 (COVID-19) mRNA BNT-162b2 vax 10/31/2020 Recorded 2023-01-30: [id number] SARS-CoV-2 (COVID-19) mRNA BNT-162b2 vax 10/10/2020 Recorded 2023-01-30: TPV60 influenza virus vaccine, inactivated 05/02/2019 Recorded influenza virus vaccine, inactivated 05/04/2018 Recorded diphtheria/pertussis, acel/tetanus adult 11/27/2017 Recorded influenza virus vaccine, inactivated 05/02/2017 Recorded influenza, unspecified formulation 05/09/2016 Recorded influenza virus vaccine, inactivated 05/07/2015 Recorded pneumococcal 13-valent vaccine 07/14/2014 Recorded influenza virus vaccine, inactivated 07/14/2014 Recorded Normal [facility] Comment on above: Result Comment: Elec tronically Signed By: Aurora RICE, Lauro Cast.br\Date and Time Signed: 02/26/24 14:44 EDT eGFRon 02-26-2024 eGFR 99 mL/min/1.73 m2 Normal >=59 [facility] Comment on above: Order Comment: Order added by Discern Expert. Performed By: #### 1 [id number] #### [facility] [address] [place] [address] CNOVon 02-20-2024 CNOV Office Visit (MARIBELKaron ) EMELI KAUFMAN ([id number]) 1960 F Date Time Provider Department 02/20/24 1:00 PM CHRIS BAUM During your visit today, we recorded the following information about you: Pulse Blood pressure Weight Height 83/minute 133/81 59 kg 1.651 m Chris Baum MD 02/20/2024 5:38 PM Signed [facility] FOLLOWUP/ESTABLISHED PATIENT VISIT Also followed by: Brianna Yanez MD, PCP PRINCIPAL NEUROLOGIC DIAGNOSIS: Multiple sclerosis DISEASE SUMMARY Date of onset: 07/2005 Date of diagnosis of MS: 11/30/2005 Disease course at onset: Relapsing-Remitting Current disease course: Stable Previous disease therapies: Avonex (began 01/26/06) - stopped in June 2015 due to stable disease and chronic pulmonary infection Current disease therapy: None Most recent MRI brain: 12/11/15 (no new or contrast enhancing lesions) Most recent MRI cervical spine: 11/30/2005 (possible subtle C2 lesion per report) CSF: None CHIEF COMPLAINT: Follow-up for monitoring off MS modifying therapy INTERVAL HISTORY: Overall, patient has been doing well without any new neurologic symptoms or concerns for progressive disability. She has recently been treated for breast cancer with radiation and hormone therapy. She continues to have problematic symptoms from chronic bronchiectasis. She reports her weight is stable. However, reports she has lost some with her ongoing pulmonary issues. Mood: Good Spasticity:Sometimes a bit stiff after sitting in the car for too long and occasional muscle spasm in her legs Bladder: some stress incontinence with forceful coughing and some urgency Bowel: occasional constipation relieved with OTC stool softeners Fatigue: Mild Sleep: Difficulty staying asleep due to chronic cough Memory/Concentration: Patient has not noticed any issues; reports occasional issues using the computer Usual treating team: Fellow/Bautista The patient is accompanied by her . The patient was last seen 05/29/2019, currently taking Not on DMT. Since the patient's last visit the patient reports overall feeling stable. Issues with current therapy: Not currently on disease modifying therapy. Neuro-QoL Functions (higher=better functioning) Flowsheet Row Office Visit from 02/20/2024 in [facility] Office Visit from 07/01/2015 in [facility] Office Visit from 05/28/2014 in [facility] Upper Extremity Domain T Score 57 47.9 56.84 Lower Extremity Domain T Score 50 48.92 55.49 Cognitive Function Domain T Score 67 -- -- Positive Affect Well Being T Score -- -- -- Ability To Participate In Social Roles T Score 56 -- -- Satisfaction With Social Roles T Score 62 -- -- Neuro-QoL Symptoms (higher=worse symptoms) Flowsheet [facility] Office Visit from 02/20/2024 in [facility] Office Visit from 07/01/2015 in [facility] Office Visit from 05/28/2014 in [facility] Sleep Domain T Score 32 38.15 40.22 Fatigue Domain T Score 38 33.86 37.65 Anxiety Domain T Score 36 -- -- Depression Domain T Score 34 -- -- Stigma Domain T Score 37 -- -- Emotional Behavior Dyscontrol T Score -- -- -- has a past medical history of Migraine with aura, without mention of intractable migraine without mention of status migrainosus, Multiple sclerosis ([facility]), Pulmonary infiltrate, and Sciatica. She has no past medical history of Atrial fibrillation ([facility]), Cancer ([facility]), Chronic obstructive pulmonary disease (COPD) ([facility]), Chronic renal insufficiency, Congestive heart failure ([facility]), Coronary artery disease, Depression, Diabetes ([facility]), Epilepsy ([facility]), Hypertension, Obstructive sleep apnea, Steroid long-term use, Stroke ([facility]), or Substance abuse ([facility]). has a current medication list which includes the following prescription(s): letrozole, latanoprost, cholecalciferol, calcium carbonate, sodium chloride, albuterol, ipratropium bromide, and nebulizer and compressor for neb. EXAM: BP 133/81 Pulse 83 Ht 165.1 cm (5' 5 ) Wt 59 kg (130 lb) BMI 21.63 kg/m? MSPT Results [facility] Office Visit from 12/11/2015 in [facility] Office Visit from 07/01/2015 in [facility] Office Visit from 05/28/2014 in [facility] Processing Speed Total Number Correct -- -- -- Processing Speed Z score -- -- -- Dominant hand Right hand Right hand Right hand MDT Left Hand Time -- -- -- MDT Right Hand Time -- -- -- Walking Speed Test (25 feet) -- -- -- General Appearance: well appearing, in no acute distress Mental status evaluation during the interview and examination showed normal level of consciousness, orientation, language, memory, praxis, and higher intellectual function Affect: Normal Visual acuity: OD 20/20 OS 20/20 Correction: With glasses Extraocular movements: full, without MYLENE Facial sensation: Intact bilaterally Facial movements: Intact bilaterally Speech: normal Muscle tone: (more content not included)... Normal [facility] Oncology Progress Noteon Oncology Progress Note Chief Complaint breast Ca; has a mole that would like to discuss today. Diagnoses 1. Encounter for follow-up surveillance of breast cancer (Z08: Encounter for follow-up examination after completed treatment for malignant neoplasm) Personal history of malignant neoplasm of breast (Z85.3: Personal history of malignant neoplasm of breast) Oncological History/ROS/PE/Assess ment and Plan Emeli is a 62-year-old lady with history of multiple sclerosis and bronchiectasis who was referred by Dr. Simon to our oncology clinic to be evaluated and managed for her new left breast invasive lobular carcinoma, ER +90%, IL +20 to 30%, HER2/elif 1+, and Ki67 was positive 1%. 2 out of 2 sentinel lymph node with positive for macro metastatic disease. Her tumor was discussed at the [facility] tumor board patient is to obtain Oncotype DX score and identify if she needs chemotherapy or not. She will need for short adjuvant radiation and also adjuvant endocrine therapy. She initially had mammogram and ultrasound done on 01/05/2023 which revealed BI-RADS 4 of the left breast revealing 1.3 x 0.8 cm ill-defined heterogeneous solid ovoid nodule in the axillary tail at 2 o'clock position. They recommended left breast ultrasound-guided core biopsy which was done on 02/07/2023. She underwent left breast biopsy on 02/07/2023 which revealed invasive lobular carcinoma ER +90% and ki 67 was low 1%. Her lumpectomy was performed on 04/11/2023 and the surgical path revealed the following: A. TUMOR SUMMARY PROCEDURE: Lumpectomy with wire-guided localization LYMPH NODE SAMPLING: [place] lymph node(s) SPECIMEN INTEGRITY: multiple specimens (A and B) SPECIMEN SIZE: 3.5 x 2.6 x 0.8 cm (A) and 0.7-1.5 cm (B) SPECIMEN LATERALITY: Left TUMOR SITE OF INVASIVE CARCINOMA: Not specified SIZE OF LARGEST INVASION CARCINOMA: 1.1x0.6x0.5 cm TUMOR FOCALITY: Single focus of invasive carcinoma MACROSCOPIC AND MICROSCOPIC EXTENT OF TUMOR: Skin: Skin is not present Skeletal muscle: Skeletal muscle is not present DUCTAL CARCINOMA IN SITU (DCIS): Not identified SIZE (EXTENT) OF DCIS: NA LOBULAR CARCINOMA IN SITU (LCIS): Identified (involving 2 of 8 blocks) HISTOLOGIC TYPE OF INVASION CARCINOMA: Invasive lobular carcinoma GLANDULAR/TUBULAR DIFFERENTIATION: Score 3 NUCLEAR PLEOMORPHISM: Score 1 MITOTIC COUNT SCORE: Score 1 OVERALL GRADE OF INVASIVE CARCINOMA: Grade 1 (Total scores 5) MARGINS: Uninvolved by invasive carcinoma and LCIS (see comment above) Distance is indeterminant (part B represents true margin per surgeon). TREATMENT EFFECT: No known presurgical therapy LYMPHOVASCULAR INVASION: Not identified on the submitted sections DERMAL LYMPHOVASCULAR INVASION: No skin present LYMPH NODES: Metastatic lymph node identified (2/2) Number of sentinel lymph nodes examined: 2 Total number of lymph nodes examined (sentinel and nonsentinel): 2 Number of lymph nodes with macrometastasis: 2 Largest size of metastatic focus: 0.8 cm Extranodal extension: No identified METHOD OF EVALUATION OF SENTINAL NODES: H&E, multiple levels PRIMARY TUMOR (INVASIVE CARCINOMA (pT): pT1c (1 cm < tumor > 2cm) REGIONAL LYMPH NODES (pN): pN1a DISTANT METASTASIS (M): Not applicable ADDITIONAL PATHOLOGIC FINDINGS: NA ESTROGEN RECEPTOR: >90 % of invasive tumor cells, performed on previous biopsy (), please refer to previous report for details PROGESTERONE RECEPTOR: 20-30% of invasive tumor cells, performed on previous biopsy (), please refer to previous report for details Ki-67 INDEX OF INVASIVE TUMOR CELLS: Approximately 1% of invasive tumor cells, performed on previous biopsy (), please refer to previous report for details HER2/ELIF STUDIES: 1+ ([facility]), performed on previous biopsy (), please refer to previous report for details MICROCALCIFICATIONS: Not identified on submitted sections CLINICAL HISTORY: Radiologic finding Final Diagnosis (Verified) A: LEFT BREAST, LUMPECTOMY WITH NEEDLE LOCALIZATION: ? INVASIVE LOBULAR CARCINOMA, GRADE 1 (1.1 CM). ? LOBULAR CARCINOMA IN SITU. ? MEDIAL AND ANTERIOR/POSTERIOR MARGIN < 1 MM FROM INVASIVE CARCINOMA. ? PREVIOUS BIOPSY SITE IDENTIFIED. B: TRUE MARGINS, LEFT BREAST, EXCISION: ? BENIGN FATTY BREAST TISSUE WITH NO EVIDENCE OF MALIGNANCY. ? MARGINS NEGATIVE FOR MALIGNANCY. C: SENTINEL LYMPH NODES, LEFT BREAST, EXCISION: ? METASTATIC LYMPH NODES IDENTIFIED (08/18). Recovering from her surgery and she is seeing Dr. Montano again today. She denies any chest pain or shortness of breath. She never had bone density scan. Is not currently on hormone replacement therapy. 05/22/23: Patient is here for her Oncotype DX score and final planning of her adjuvant treatment. She is scheduled to see Rad onc on 05/25/23 for adjuvant radiation to her left breast. Her Oncotype DX screen came back only 17 with Recurrent score of 15% only at 9 years and no clear benefit from adding chemo to adjuv (more content not included)... Normal [facility] Consent for Treatmenton 11-15 Consent for Treatment [id number] Normal [facility] Immunoglobs. A/E/G/Mon 11-26 IgA Quant duplt test Invalid Interpretation Code [facility] Comment on above: Performed By: #### 1 2952598, 7000948, 2315846, 52201153, 41177784, 052580062 ####[facility] [address] [place] [address] IgG Quant duplt test Invalid Interpretation Code [facility] Comment on above: Performed By: #### 1 4093219, 9176491, 7020418, 59262188, 18290678, [id number] ####[facility] [address] [place] [address] IgM Quant duplt test Invalid Interpretation Code [facility] Comment on above: Performed By: #### 1 6821100, 6048515, 4992578, 66356500, 70861082, 406027105 ####[facility] [address] [place] [address] Free K+L Lt Chains,Qn,Son Immunoglobulin light chains.kappa.free (S) [Mass/Vol] 32.2 mg/L High 3.3-19.4 [facility] Comment on above: Performed By: #### 1 0297503, 8886136, 6363482, 08949732, 35348759, 707022894 ####[facility] [address] [place] [address] Immunoglobulin light chains.kappa.free/Immun oglobulin light chains.lambda.free (S) [Mass ratio] 1.11 Invalid Interpretation Code 0.26-1.65 [facility] Comment on above: Result Comment: Perf ormed at: [facility] [place] [address] [place], [place] [id number] PhD Adelfo Shannon Performed By: #### 1 5977797, 7256677, 6047008, 66157254, 75555705, 827710118 ####[address] [place] [address] Immunoglobulin light chains.lambda.free [Mass/Vol] 28.9 mg/L High 5.7-26.3 [facility] Comment on above: Performed By: #### 1 5143038, 8291249, 5030616, 87495636, 00523072, 964974607 ####[facility] [address] [place] [address] JULIO and PE, Serumon 11-26-19 24 Albumin [Mass/Vol] 3.6 g/dL Invalid Interpretation Code 2.9-4.4 [facility] Comment on above: Performed By: #### 1 1790071, 1856328, 6775233, 98564955, 51401573, 560705117 ####[facility] [address] [place] [address] Albumin/Globulin [Mass ratio] 0.9 {ratio} Invalid Interpretation Code 0.7-1.7 [facility] Comment on above: Performed By: #### 1 1585484, 2133414, 9660442, 86238199, 60013340, 084487283 ####[facility] [address] [place] [address] Alpha 1 globulin Elph [Mass/Vol] 0.4 g/dL Invalid Interpretation Code 0.0-0.4 [facility] Comment on above: Performed By: #### 1 0353695, 3170877, 1844018, 60764606, 08424049, 494125765 ####[address] [place] [address] Alpha 2 globulin Elph [Mass/Vol] 0.9 g/dL Invalid Interpretation Code 0.4-1.0 [facility] Comment on above: Performed By: #### 1 0884527, 9873747, 3695864, 98541040, 21573332, 498762149 ####[address] [place] [address] Beta globulin Elph [Mass/Vol] 1.2 g/dL Invalid Interpretation Code 0.7-1.3 [facility] Comment on above: Performed By: #### 1 0130397, 8025509, 7866668, 47065322, 88223899, 349860449 ####[address] [address] Gamma globulin Elph [Mass/Vol] 1.7 g/dL Invalid Interpretation Code 0.4-1.8 [facility] Comment on above: Performed By: #### 1 1842176, 1967857, 3288687, 30035369, 47890726, 490764708 ####[address] [place] [address] Globulin (S) [Mass/Vol] 4.2 g/dL High 2.2-3.9 [facility] Comment on above: Performed By: #### 1 2060358, 0575854, 4716947, 77991863, 55530572, 892934065 ####[address] [place] [address] IgA [Mass/Vol] 552 mg/dL High 87-352 [facility] Comment on above: Performed By: #### 1 8494345, 6895846, 7551850, 19419452, 76657115, 432324943 ####[address] [place] [address] IgG [Mass/Vol] 1650 mg/dL High 586-1602 [facility] Comment on above: Performed By: #### 1 7927354, 7963166, 5673257, 58610851, 65443608, 496782571 ####[facility] [address] [place] [address] IgM [Mass/Vol] 112 mg/dL Invalid Interpretation Code [facility] Comment on above: Performed By: #### 1 7314000, 4935348, 3176361, 37621743, 01612779, 025482578 ####[facility] [address] [place] [address] Interpretation IEP [Interp] Comment Invalid Interpretation Code [facility] Comment on above: Result Comment: No m onoclonality detected. Performed By: #### 1 7784287, 1567629, 1761789, 00548120, 60716530, 765822333 ####[facility] [address] [place] [address] Laboratory comment Yossi (Report) Comment Invalid Interpretation Code [facility] Comment on above: Result Comment: Prot ein electrophoresis scan will follow via computer, mail, or weigher packing delivery. Performed at: [address] [id number] PhD Adelfo Shannon Performed By: #### 1 3234755, 1256540, 7457460, 11961916, 43579196, 483784534 ####[facility] [address] [place] [address] Protein [Mass/Vol] 7.8 g/dL Invalid Interpretation Code 6.0-8.5 [facility] Comment on above: Performed By: #### 1 3544838, 5735374, 9051308, 36752834, 22366549, 251293291 ####[facility] [address] [place] [address] Protein.monoclonal Elph [Mass/Vol] Not Observed Invalid Interpretation Code Not Observed [facility] Comment on above: Performed By: #### 1 8514608, 4142685, 4121901, 59410261, 26433878, 675467279 ####[address] [place] [address] Immunoglobs. A/E/G/Mon 11-25 IgE Qn 21 International_Unit/mL Invalid Interpretation Code 6-376 [facility] Comment on above: Result Comment: Perf ormed at: [facility] [address] [id number] MD José Miguel Shipman Performed By: #### 1 4083628, 1872467, 2202925, 35669265, 74689331, 760327294 ####[address] [address] CBC w/ Auto Diffon 4 Basophils/100 WBC (Bld) 0.6 % Normal 0.0-2.0 F [facility] Comment on above: Performed By: #### 1 3416328, 6654443, 0053623, 66673112, 55614462, 767061720 ####[address] [address] Basophils/Leukocytes Auto (Bld) [Pure # fraction] 0.0 E9/L Normal 0.0-0.2 [facility] Comment on above: Performed By: #### 1 3582691, 6473148, 9076572, 06967026, 10609338, 730134205 ####[address] [address] Eosinophils (Bld) [#/Vol] 0.0 E9/L Normal 0.0-0.5 [facility] Comment on above: Performed By: #### 1 7133295, 5910716, 0507372, 65183869, 02548185, 092504668 ####[address] [address] Eosinophils/100 WBC (Bld) 0.9 % Normal 0.0-8.0 [facility] Comment on above: Performed By: #### 1 2766305, 0477731, 9377364, 18192831, 06061555, 236395195 ####[address] [place] [address] Erythrocyte distribution width (RBC) [Ratio] 14.3 % High 10.9-14.2 [facility] Comment on above: Performed By: #### 1 7465640, 5237002, 8596754, 05861171, 49306516, 483383586 ####[address] [address] Hematocrit (Bld) [Volume fraction] 37.7 % Normal 34.0-46.0 [facility] Comment on above: Performed By: #### 1 1098049, 6661696, 5924666, 90605186, 45686729, 375065095 ####[address] [address] Hemoglobin (Bld) [Mass/Vol] 12.2 g/dL Normal 12.0-16.0 [facility] Comment on above: Performed By: #### 1 2233346, 2939587, 5020471, 53736717, 66885785, 077677429 ####[address] [address] Lymphocytes (Bld) [#/Vol] 0.7 E9/L Low 1.0-4.0 [facility] Comment on above: Performed By: #### 1 2372858, 8347937, 2434237, 91726628, 63118644, 494627657 ####[address] [address] Lymphocytes/100 WBC (Bld) 16.0 % Normal 14.0-50.0 [facility] Comment on above: Performed By: #### 1 0584570, 3572968, 5948654, 75669927, 03541052, 781025110 ####[address] [address] MCH (RBC) [Entitic mass] 29.4 pg Normal 27.0-34.0 [facility] Comment on above: Performed By: #### 1 6112688, 6380065, 2353264, 42626086, 74489869, 156842608 ####[address] [place] [address] MCHC (RBC) [Mass/Vol] 32.3 g/dL Normal 31.4-36.0 [facility] Comment on above: Performed By: #### 1 3269332, 9107376, 8579370, 05144112, 55469086, 101319607 ####[address] [place] [address] MCV (RBC) [Entitic vol] 90.9 fL Normal 80.0-100.0 F [facility] Comment on above: Performed By: #### 1 0381610, 3214361, 7545349, 23491433, 39727497, 147119945 ####[address] [address] Monocytes (Bld) [#/Vol] 0.6 E9/L Normal 0.2-1.0 F [facility] Comment on above: Performed By: #### 1 5425825, 2217311, 8419070, 03360141, 52457257, 338305594 ####[address] [address] Neutrophils (Bld) [#/Vol] 3.2 E9/L Normal 2.0-7.5 [facility] Comment on above: Performed By: #### 1 5701310, 4072733, 3731801, 93288272, 88350155, 344687863 ####[address] [address] Neutrophils/100 WBC (Bld) 68.5 % Normal 36.0-75.0 [facility] Comment on above: Performed By: #### 1 2905129, 2490326, 7256750, 16830300, 15679974, 401004975 ####[facility] [address] [place] [address] Platelet 290.0 E9/L Normal 150.0-500.0 [facility] Comment on above: Performed By: #### 1 9219883, 9798904, 2945409, 13777314, 09820549, 145186610 ####[facility] [address] [place] [address] Platelet mean volume (Bld) [Entitic vol] 6.9 fL Normal 6.4-10.8 [facility] Comment on above: Performed By: #### 1 4163275, 2532255, 8685669, 30872150, 74865702, 399905591 ####[address] [place] [address] RBC (Bld) [#/Vol] 4.2 E12/L Low 4.3-5.9 [facility] Comment on above: Performed By: #### 1 5347838, 3035500, 0240159, 56153230, 67179147, 926406085 ####[facility] [address] [place] [address] WBC corrected for nucl RBC Auto (Bld) [#/Vol] 4.6 E9/L Normal 4.0-11.0 [facility] Comment on above: Performed By: #### 1 5258254, 2252200, 6607680, 43299214, 57819439, 113793912 ####[facility] [address] [place] [address] CHEMISTRYOrdered By: SYSTEM SYSTEM on 11-20-2023 Albumin [Mass/Vol] 4.1 g/dL Normal 3.3 - 5.0 gm/dL Remisol Chem Albumin/Globulin [Mass ratio] 1.0 {ratio} Low 1.1 - 2.2 Rem[facility] ALP [Catalytic activity/Vol] 52 [iU]/d Normal 21 - 98 Int._Unit/L Remisol Chem ALT No additional P-5'-P [Catalytic activity/Vol] 13 [iU]/d Normal 6 - 46 Int._Unit/L Rem[facility] Chem Anion gap [Moles/Vol] 11 mmol/L Normal 6 - 16 mEq/L R emisol Chem AST [Catalytic activity/Vol] 19 [iU]/d Normal 5 - 43 Int._Unit/L [facility] Bilirubin [Mass/Vol] 0.6 mg/dL Normal 0.0 - 1 .1 mg/dL [facility] Calcium [Mass/Vol] 9.4 mg/dL Normal 8.9 - 11. 1 mg/dL [facility] Chloride [Moles/Vol] 103 mmol/L Normal 101 - 1 11 mmol/L [facility] CO2 [Moles/Vol] 28 mmol/L Normal 21 - 31 mmol/L [facility] Creatinine [Mass/Vol] 0.6 mg/dL Normal 0.5 - 1.3 mg/dL [facility] eGFR 100 mL/min/1.73 m2 Normal >=59mL/mi n/1 .73 m2 [facility] Globulin (S) [Mass/Vol] 4.0 g/dL Normal 1.4 - 4.0 gm/dL [facility] Glucose [Mass/Vol] 84 mg/dL Normal 55 - 199 mg/dL [facility] Potassium [Moles/Vol] 4.2 mmol/L Normal 3.5 - 5.3 mmol/L [facility] Protein [Mass/Vol] 8.1 g/dL High 6.0 - 7.8 gm/dL [facility] Sodium [Moles/Vol] 138 mmol/L Normal 135 - 145 mmol/L [facility] Urea nitrogen [Mass/Vol] 17 mg/dL Normal 5 - 21 mg/dL [facility] Urea nitrogen/Creatinine [Mass ratio] 28 mg/mg High 10 - 20 Remisol Chem CMPon 11-20-2023 Albumin [Mass/Vol] 4.1 g/dL Normal 3.3-5.0 [facility] Comment on above: Performed By: #### 1 5230626, 0285582, 1223838, 57434736, 74798964, 889780078 ####[facility] [address] [place] [address] Albumin/Globulin (S) [Mass conc ratio] 1.0 Low 1.1-2.2 [facility] Comment on above: Performed By: #### 1 6122690, 5184186, 3359327, 69992677, 24609883, 078011929 ####[facility] [address] [place] [address] ALP [Catalytic activity/Vol] 52 Int._Unit/L Normal 21-98 [facility] Comment on above: Performed By: #### 1 9685855, 8767811, 1450503, 51065572, 80938994, 304626585 ####[address] [place] [address] ALT No additional P-5'-P [Catalytic activity/Vol] 13 Int._Unit/L Normal 6-46 [facility] Comment on above: Performed By: #### 1 0618008, 2331792, 5680397, 42364584, 83456427, 554884501 ####[address] [address] Anion gap [Moles/Vol] 11 mmol/L Normal 6-16 [facility] Comment on above: Performed By: #### 1 8488600, 2609861, 4658599, 79370417, 74765458, 390242521 ####[address] [address] AST [Catalytic activity/Vol] 19 Int._Unit/L Normal 5-43 [facility] Comment on above: Performed By: #### 1 0403654, 1427611, 3267820, 13872177, 75385897, 378608581 ####[address] [place] [address] Bilirubin [Mass/Vol] 0.6 mg/dL Normal 0.0-1.1 [facility] Comment on above: Performed By: #### 1 6962012, 8101618, 1330284, 48690732, 89185803, 222997752 ####[address] [place] [address] Calcium [Mass/Vol] 9.4 mg/dL Normal 8.9-11.1 [facility] Comment on above: Performed By: #### 1 9171652, 3489622, 6632114, 20688159, 07399260, 802662200 ####[facility] [address] [place] [address] Chloride [Moles/Vol] 103 mmol/L Normal 101-111 [facility] Comment on above: Performed By: #### 1 4181772, 2932056, 5969240, 89889159, 89956722, 724440901 ####[facility] [address] [place] [address] CO2 [Moles/Vol] 28 mmol/L Normal 21-31 [facility] Comment on above: Performed By: #### 1 3060012, 2737627, 4408369, 55209302, 83789244, 594948202 ####[facility] [address] [place] [address] Creatinine [Mass/Vol] 0.6 mg/dL Normal 0.5-1.3 [facility] [facility] Comment on above: Performed By: #### 1 [id number], [id number], [id number], [id number] ####[facility] [address] [place] [address] Globulin (S) [Mass/Vol] 4.0 g/dL Normal 1.4-4.0 F [facility] Comment on above: Performed By: #### 1 [id number], [id number], [id number], [id number], [id number], [id number] ####[facility] [address] [place] [address] Glucose [Mass/Vol] 84 mg/dL Normal 55-199 [facility] Comment on above: Performed By: #### 1 [id number], [id number], 4632462, [id number], [id number], [id number] ####[facility] [address] [place] [address] Potassium [Moles/Vol] 4.2 mmol/L Normal 3.5-5.3 [facility] Comment on above: Performed By: #### 1 [id number], 7759205, 0283191, [id number], [id number], [id number] ####[facility] [address] [place] [address] Protein [Mass/Vol] 8.1 g/dL High 6.0-7.8 [facility] Comment on above: Performed By: #### 1 [id number], 9089113, [id number], [id number], [id number], [id number] ####[facility] [address] [place] [address] Sodium [Moles/Vol] 138 mmol/L Normal 135-145 [facility] Comment on above: Performed By: #### 1 [id number], 3654935, 4039472, [id number], [id number], [id number] ####[facility] [address] [place] [address] Urea nitrogen [Mass/Vol] 17 mg/dL Normal 5-21 [facility] Comment on above: Performed By: #### 1 [id number], 4584749, 9102093, 48104400, [id number], [id number] ####[facility] [address] [place] [address] Urea nitrogen/Creatinine [Mass ratio] 28 No Units High 10-20 [facility] Comment on above: Performed By: #### 1 [id number], 8578406, 2714897, [id number], [id number], [id number] ####[facility] [address] [place] [address] Consent for Treatmenton Consent for Treatment [id number] .[id number] Normal [facility] HEMATOLOGYOrdered By: SYSTEM SYSTEM on 11-20-2023 Basophils/100 WBC (Bld) 0.6 % Normal 0.0 - 2.0 % Remisol Heme Basophils/Leukocytes Auto (Bld) [Pure # fraction] 0.0 E9/L Normal 0.0 - 0.2 E9/L Remisol Heme Eosinophils (Bld) [#/Vol] 0.0 E9/L Normal 0.0 - 0.5 E9/L Remisol Heme Eosinophils/100 WBC (Bld) 0.9 % Normal 0.0 - 8.0 % Remisol Heme Erythrocyte distribution width (RBC) [Ratio] 14.3 % High 10.9 - 14.2 % Remisol Heme Hematocrit (Bld) [Volume fraction] 37.7 % Normal 34.0 - 46.0 % Remisol Heme Hemoglobin (Bld) [Mass/Vol] 12.2 g/dL Normal 12.0 - 16.0 gm/dL Remisol Heme Lymphocytes (Bld) [#/Vol] 0.7 E9/L Low 1.0 - 4.0 E9/L Remisol Heme Lymphocytes/100 WBC (Bld) 16.0 % Normal 14.0 - 50.0 % Remisol Heme MCH (RBC) [Entitic mass] 29.4 pg Normal 27.0 - 34.0 pg Remisol Heme MCHC (RBC) [Mass/Vol] 32.3 g/dL Normal 31.4 - 36.0 gm/dL Remisol Heme MCV (RBC) [Entitic vol] 90.9 fL Normal 80.0 - 100.0 fL Remisol Heme Monocytes (Bld) [#/Vol] 0.6 E9/L Normal 0.2 - 1.0 E9/L Remisol Heme Monocytes/100 WBC (Bld) 14.0 % Normal 4.0 - 14.0 % Remisol Heme Neutrophils (Bld) [#/Vol] 3.2 E9/L Normal 2.0 - 7.5 E9/L Remisol Heme Neutrophils/100 WBC (Bld) 68.5 % Normal 36.0 - 75.0 % Remisol Heme Platelet 290.0 E9/L Normal 150.0 - 500.0 E9/L Remisol Heme Platelet mean volume (Bld) [Entitic vol] 6.9 fL Normal 6.4 - 10.8 fL Remisol Heme RBC (Bld) [#/Vol] 4.2 E12/L Low 4.3 - 5.9 E12/L Remisol Heme WBC corrected for nucl RBC Auto (Bld) [#/Vol] 4.6 E9/L Normal 4.0 - 11.0 E9/L Remisol Heme eGFRon 11-20-2023 eGFR 100 mL/min/1.73 m2 Normal >=59 [facility] Comment on above: Order Comment: Order added by Discern Expert. Performed By: #### 1 [id number], [id number], [id number], [id number], [id number], [id number] ####[facility] [address] [place] [address] General Surgery Office/Clini c Noteon 11-14-2023 General Surgery Office/Clinic Note Chief Complaint 3 month follow up HPI Staff Emeli is a 62 y.o. female here for 3 month follow up Hx of left breast cancer s/p [place] Node biopsy of left done 04/11/2023 Denies breast changes She continues with letrozole 2.5 mg History of Present Illness Emeli Kaufman is a 62-year-old female status post left breast needle localized lumpectomy and left sentinel lymph node biopsy. Two out of 2 lymph nodes are positive for cancer. Chemotherapy deferred by medical oncology. The patient has completed radiation therapy. She is currently on hormone therapy. The patient reports no issues since the operation. Review of Systems PHQ Score Initial Depression Screen Score: 0 SCORE ROS - Constitutional: No fever, no sweats, no weight loss. Eyes: No glasses, no blurred vision, no visual loss. ENMT: No dentures, no hoarseness, no swallowing difficulties, no hearing loss, no ear infection(s), no nose bleeds. Cardiovascular: Normal blood pressure, no chest pain, regular heartbeat, no heart murmur. Respiratory: No shortness of breath, no cough, no wheezing, no asthma. Gastrointestinal: No nausea, no vomiting, no diarrhea, no constipation, no blood in stool, no change in bowel habits, no abdominal pain, no hepatitis. Genitourinary: No kidney stones, no urine infection, no difficulty passing urine. Musculoskeletal: No pain, no weakness. Skin: No changing moles, no rash, no skin lumps. Neurologic: No seizures, no epilepsy, no headache. Psychiatric: No emotional, no psychiatric problem. Endocrine: No thyroid, no diabetes. Heme/Lymph: No bleeding problems, no anemia, no blood clots, no transfusions. Allergy/Immunologic: No swollen lymph nodes/glands, no IV drug abuse. Other: Additional ROS info: Except as noted in the above Review of Systems and in the History of Present Illness, all other systems have been reviewed and are negative or noncontributory. Physical Exam Vitals & Measurements HR: 85(Peripheral) BP: 137/90 HT: 65 in HT: 165 cm WT: 56 kg WT: 123.2 lb BMI: 20.57 Skin: Left breast incision and left axillary incision are clean, dry, intact and have healed well with no sign of infection. Breast: Bilateral breast exam is normal. Axilla: Bilateral axillary exam is normal. Assessment/Plan 1. Encounter for follow-up surveillance of breast cancer (Z08: Encounter for follow-up examination after completed treatment for malignant neoplasm) The patient is scheduled for a follow-up visit in 3 months. 2. Breast cancer, left (C50.912: Malignant neoplasm of unspecified site of left female breast) Personal history of malignant neoplasm of breast (Z85.3: Personal history of malignant neoplasm of breast) Portions of this record may have been created with voice recognition artificial intelligence software, specifically [email or web address], [email or web address] and or [employer]. Substitutions may have occurred due to the inherent limitations of voice recognition and artificial intelligence software. ATTESTATION: Documentation services were performed after patient or guardian consented to allow [employer] to record this visit. SANTA military technology specialist and provider reviewed before signing. SANTA: Lashay Smith. Follow-up No qualifying data available Problem List/Past Medical History Ongoing Abnormal mammogram of left breast BMI 22.0-22.9, adult Breast cancer, left Encounter for follow-up surveillance of breast cancer Multiple sclerosis Personal history of bronchiectasis Historical Bronchiectasis Procedure/Surgical History Biopsy of lymph node (04/11/2023), Bronchoscopy (06/16/2021), Biopsy of breast, section. Medications alendronate 70 mg Tab, 70 mg= 1 tab(s), Oral, q7day, 1 refills Femara 2.5 mg Tab, 2.5 mg= 1 tab(s), Oral, Daily, 5 refills latanoprost Opth 0.005% Nita, 1 drop(s), Eye-Both, qPM levofloxacin 500 mg Tab predniSONE Sodium Chloride, Inhalation 0.9% inhalation solution, 1 dose, Inhalation, Daily Vitamin D 50,000 intl units (1.25 mg) oral capsule, [address] International_Unit= 1 cap(s), Oral, qWeek Allergies No Known Allergies No Known Medication Allergies Social History Alcohol - Denies Alcohol Use, 02/22/2023 Substance Abuse - Denies Substance Abuse, 02/22/2023 Tobacco - Denies Tobacco Use, 02/22/2023 Never (less than 100 in lifetime) Tobacco Use:. Never Smokeless Tobacco Use:. Household tobacco concerns: No., 11/06/2023 Immunizations Vaccine Date Status Comments influenza virus vaccine, inactivated - Not Given Postpone due to refusal influenza virus vaccine, inactivated 04/15/2022 Recorded influenza virus vaccine, inactivated 05/02/2021 Recorded SARS-CoV-2 (COVID-19) mRNA BNT-162b2 vax 10/31/2020 Recorded 2023-01-30: TPV60 SARS-CoV-2 (COVID-19) mRNA BNT-162b2 vax 10/10/2020 Recorded 2023-01-30: TPV60 influenza virus vaccine, inactivated 05/02/2019 Recorded influenza virus vaccine, inactivated 05/04/2018 Recorded diphthe (more content not included)... Normal [facility] Comment on above: Result Comment: Elec tronically Signed By: Lauro Simon MD\.br\Date and Time Signed: 11/14/23 08:56 EDT\.br\Electronically Co-Signed By: Lashay Smith\.br\Date and Time Co-Signed: 11/06/23 16:21 EDT Ambulatory Visit Summaryon 0 11-06-2023 Ambulatory Visit Summary EMELI KAUFMAN :1960 Visit Date:11/06/2023 Ambulatory Visit Instructions Your Diagnosis Encounter for follow-up surveillance of breast cancer Breast cancer, left Personal history of malignant neoplasm of breast Your Care Team Attending Physician - Lauro Simon MD Primary Care Physician - Brianna Yanez MD This Is Your Medications List alendronate (alendronate 70 mg Tab) ergocalciferol (Vitamin D 50,000 intl units (1.25 mg) oral capsule) latanoprost ophthalmic (latanoprost Opth 0.005% Nita) letrozole (Femara 2.5 mg Tab) levofloxacin (levofloxacin 500 mg Tab) predniSONE sodium chloride (Sodium Chloride, Inhalation 0.9% inhalation solution) Procedures Performed Biopsy of lymph node (04/11/2023), Bronchoscopy (06/16/2021), Biopsy of breast, section. Discharge Vitals Heart Rate (Peripheral) 85 Blood Pressure 137/90 Height 165 cm Height 65 in Weight 56 kg Weight 123.2 lb BMI 20.57 What to do next Scheduled Follow-Up Appointments Monday 2:30 PM EDT With: Sylvain RICE, Neftali Ling Where: [facility] Monday 3:00 PM EDT With: Aurora RICE, Lauro Toro Where: [facility] General Surgery [place] Normal [facility] Insurance Correspondenceon 0 09-25-2023 Insurance Correspondence [id number] .00TIFF [facility] Consent for Treatmenton 08-17 Consent for Treatment [id number] .00TIFF [facility] ED Pat Eduon 09-04-2023 ED [facility] Nephrology Protein Blood Test Why am I having this test? Proteins are substances that are important for many functions in the body. You may have the protein blood test as a part of routine screening tests. This test helps screen for liver problems, kidney disease, and many other conditions. Your health care provider may also order this test if you have symptoms of one of these conditions. What is being tested? This test measures the amount of protein in your blood. The two main types of protein in the body are albumin and globulin. The test will measure the amount of each type as well as the total amount of protein in your blood. What kind of sample is taken? A blood sample is required for this test. It is usually collected by inserting a needle into a blood vessel. Tell a health care provider about: ? All medicines you are taking, including vitamins, herbs, eye drops, creams, and ootj-nhk-kktqsvx medicines. ? Any medical conditions you have. How are the results reported? Your test results will be reported as values that indicate the total amount of protein in your blood and the amount of albumin and globulin. Your health care provider will compare your results to normal ranges that were established after testing a large group of people (reference ranges). Reference ranges may vary among labs and hospitals. For this test, common reference ranges are: Adult and aging adult ? Total protein: 6.4?8.3 g/dL or 64?83 g/L (SI units). ? Albumin: 3.5?5 g/dL or 35?50 g/L (SI units). ? Globulin: 2.3?3.4 g/dL. ? Alpha1 globulin: 0.1?3 g/dL or 1?3 g/L (SI units). ? Alpha2 globulin: 0.6?1 g/dL or 6?10 g/L (SI units). ? Beta globulin: 0.7?1.1 g/dL or 7?11 g/L (SI units). Children ? Total protein: ? Premature : 4.2?7.6 g/dL. ? : 4.6?7.4 g/dL. ? Infant: 6?6.7 g/dL. ? Child: 6.2?8 g/dL. ? Albumin: ? Premature infant: 3?4.2 g/dL. ? : 3.5?5.4 g/dL. ? : 4.4?5.4 g/dL. ? Child: 4?5.9 g/dL. What do the results mean? Results within the reference range are considered normal. Increased protein levels may indicate: ? Dehydration. ? High cholesterol. ? Iron deficiency anemia. ? Estrogen therapy. ? Malignancy. ? Chronic inflammatory disease. Decreased protein levels may indicate: ? Malnutrition. ? . ? Liver disease. ? Nephrotic syndrome. ? Fluid imbalance. ? Acute inflammation. Talk with your health care provider about what your results mean. Questions to ask your health care provider Ask your health care provider, or the department that is doing the test: ? When will my results be ready? ? How will I get my results? ? What are my treatment options? ? What other tests do I need? ? What are my next steps? Summary ? A protein blood test measures the total amount of protein in your blood and the amount of albumin and globulin, the two main types of protein in your body. ? The protein blood test is a part of routine screening tests and helps screen for liver problems, kidney disease, and many other conditions. ? Talk with your health care provider about what your results mean. This information is not intended to replace advice given to you by your health care provider. Make sure you discuss any questions you have with your health care provider. Document Revised: 03/26/2021 Document Reviewed: 03/26/2021 [employer] Patient Education ? 2022 [employer] Normal [facility] Oncology Progress Noteon Oncology Progress Note Chief Complaint Breast CA Pt has no major ques/concerns for doc today. Diagnoses 1. Breast cancer, left (C50.912: Malignant neoplasm of unspecified site of left female breast) Oncological History/ROS/PE/Assess ment and Plan Chief Complaint Left breast invasive lobular carcinoma, ER +90%, IL +20 to 30%, HER2/elif 1+, and Ki67 was positive 1%. 2 out of 2 sentinel lymph node with positive for macro metastatic disease. History of Present Illness Emeli is a 62-year-old lady with history of multiple sclerosis and bronchiectasis who was referred by Dr. Simon to our oncology clinic to be evaluated and managed for her new left breast invasive lobular carcinoma, ER +90%, IL +20 to 30%, HER2/elif 1+, and Ki67 was positive 1%. 2 out of 2 sentinel lymph node with positive for macro metastatic disease. Her tumor was discussed at the [facility] tumor board patient is to obtain Oncotype DX score and identify if she needs chemotherapy or not. She will need for short adjuvant radiation and also adjuvant endocrine therapy. She initially had mammogram and ultrasound done on 01/05/2023 which revealed BI-RADS 4 of the left breast revealing 1.3 x 0.8 cm ill-defined heterogeneous solid ovoid nodule in the axillary tail at 2 o'clock position. They recommended left breast ultrasound-guided core biopsy which was done on 02/07/2023. She underwent left breast biopsy on 02/07/2023 which revealed invasive lobular carcinoma ER +90% and ki 67 was low 1%. Her lumpectomy was performed on 04/11/2023 and the surgical path revealed the following: A. TUMOR SUMMARY PROCEDURE: Lumpectomy with wire-guided localization LYMPH NODE SAMPLING: [place] lymph node(s) SPECIMEN INTEGRITY: multiple specimens (A and B) SPECIMEN SIZE: 3.5 x 2.6 x 0.8 cm (A) and 0.7-1.5 cm (B) SPECIMEN LATERALITY: Left TUMOR SITE OF INVASIVE CARCINOMA: Not specified SIZE OF LARGEST INVASION CARCINOMA: 1.1x0.6x0.5 cm TUMOR FOCALITY: Single focus of invasive carcinoma MACROSCOPIC AND MICROSCOPIC EXTENT OF TUMOR: Skin: Skin is not present Skeletal muscle: Skeletal muscle is not present DUCTAL CARCINOMA IN SITU (DCIS): Not identified SIZE (EXTENT) OF DCIS: NA LOBULAR CARCINOMA IN SITU (LCIS): Identified (involving 2 of 8 blocks) HISTOLOGIC TYPE OF INVASION CARCINOMA: Invasive lobular carcinoma GLANDULAR/TUBULAR DIFFERENTIATION: Score 3 NUCLEAR PLEOMORPHISM: Score 1 MITOTIC COUNT SCORE: Score 1 OVERALL GRADE OF INVASIVE CARCINOMA: Grade 1 (Total scores 5) MARGINS: Uninvolved by invasive carcinoma and LCIS (see comment above) Distance is indeterminant (part B represents true margin per surgeon). TREATMENT EFFECT: No known presurgical therapy LYMPHOVASCULAR INVASION: Not identified on the submitted sections DERMAL LYMPHOVASCULAR INVASION: No skin present LYMPH NODES: Metastatic lymph node identified (2/2) Number of sentinel lymph nodes examined: 2 Total number of lymph nodes examined (sentinel and nonsentinel): 2 Number of lymph nodes with macrometastasis: 2 Largest size of metastatic focus: 0.8 cm Extranodal extension: No identified METHOD OF EVALUATION OF SENTINAL NODES: H&E, multiple levels PRIMARY TUMOR (INVASIVE CARCINOMA (pT): pT1c (1 cm < tumor > 2cm) REGIONAL LYMPH NODES (pN): pN1a DISTANT METASTASIS (M): Not applicable ADDITIONAL PATHOLOGIC FINDINGS: NA ESTROGEN RECEPTOR: >90 % of invasive tumor cells, performed on previous biopsy ([id number]), please refer to previous report for details PROGESTERONE RECEPTOR: 20-30% of invasive tumor cells, performed on previous biopsy (), please refer to previous report for details Ki-67 INDEX OF INVASIVE TUMOR CELLS: Approximately 1% of invasive tumor cells, performed on previous biopsy (), please refer to previous report for details HER2/ELIF STUDIES: 1+ (IHC), performed on previous biopsy ([id number]), please refer to previous report for details MICROCALCIFICATIONS: Not identified on submitted sections CLINICAL HISTORY: Radiologic finding Final Diagnosis (Verified) A: LEFT BREAST, LUMPECTOMY WITH NEEDLE LOCALIZATION: ? INVASIVE LOBULAR CARCINOMA, GRADE 1 (1.1 CM). ? LOBULAR CARCINOMA IN SITU. ? MEDIAL AND ANTERIOR/POSTERIOR MARGIN < 1 MM FROM INVASIVE CARCINOMA. ? PREVIOUS BIOPSY SITE IDENTIFIED. B: TRUE MARGINS, LEFT BREAST, EXCISION: ? BENIGN FATTY BREAST TISSUE WITH NO EVIDENCE OF MALIGNANCY. ? MARGINS NEGATIVE FOR MALIGNANCY. C: SENTINEL LYMPH NODES, LEFT BREAST, EXCISION: ? METASTATIC LYMPH NODES IDENTIFIED (08/18). Recovering from her surgery and she is seeing Dr. Montano again today. She denies any chest pain or shortness of breath. She never had bone density scan. Is not currently on hormone replacement therapy. 05/22/23: Patient is here for her Oncotype DX score and final planning of her adjuvant treatment. She is scheduled to see Rad onc on 05/25/23 for adjuvant radiation to her left breast. Her Oncotype DX screen came back only 17 with Recurrent score of (more content not included)... Normal [facility] Outside Oncologyon Outside Oncology [id number]# 1.00TIFF Normal [facility] CHEMISTRYOrdered By: SYSTEM SYSTEM on 09-01-2023 Albumin [Mass/Vol] 4.0 g/dL Normal 3.3 - 5.0 gm/dL Remisol Chem Albumin/Globulin [Mass ratio] 0.9 {ratio} Low 1.1 - 2.2 Remisol Chem Alk Phos 67 [iU]/d Normal 21 - 98 Int._Unit/L Remisol Chem ALT 11 [iU]/d Normal 6 - 46 Int._Unit/L Remisol Chem AST 18 [iU]/d Normal 5 - 43 Int._Unit/L Remisol Chem Bili Direct 0.1 mg/dL Normal 0.0 - 0.4 mg/dL Remisol Chem Bili Indirect 0.4 mg/dL Normal 0.1 - 0.9 mg/dL Remisol Chem Bili Total 0.5 mg/dL Normal 0.0 - 1.1 mg/dL Remisol Chem Globulin (S) [Mass/Vol] 4.6 g/dL High 1.4 - 4.0 gm/dL Remisol Chem Protein [Mass/Vol] 8.6 g/dL High 6.0 - 7.8 gm/dL Remisol Chem Consent for Treatmenton 08-17 Consent for Treatment [id number] [facility] [id number]#1 .00TIFF Normal [facility] Hep Func Panelon 09-01-2023 Albumin [Mass/Vol] 4.0 g/dL Normal 3.3-5.0 [facility] Comment on above: Performed By: #### 2 [id number] #### [facility] [address] [place] [address] Albumin/Globulin [Mass ratio] 0.9 {ratio} Low 1.1-2.2 [facility] Comment on above: Performed By: #### 2 [id number] #### [facility] [address] [place] [address] Alk Phos 67 Int._Unit/L Normal 21-98 [facility] Comment on above: Performed By: #### 2 [id number] #### [facility] [address] [place] [address] ALT 11 Int._Unit/L Normal 6-46 [facility] Comment on above: Performed By: #### 2 [id number] #### [facility] [address] [place] [address] AST 18 Int._Unit/L Normal 5-43 [facility] Comment on above: Performed By: #### 2 [id number] #### [facility] [address] [place] [address] Bili Direct 0.1 mg/dL Normal 0.0-0.4 [facility] Comment on above: Performed By: #### 2 [id number] #### [facility] [address] [place] [address] Bili Indirect 0.4 mg/dL Normal 0.1-0.9 [facility] Comment on above: Performed By: #### 2 [id number] #### [facility] [address] [place] [address] Bili Total 0.5 mg/dL Normal 0.0-1.1 [facility] Comment on above: Performed By: #### 2 [id number] #### [facility] [address] [place] [address] Globulin (S) [Mass/Vol] 4.6 g/dL High 1.4-4.0 F [facility] Comment on above: Performed By: #### 2 [id number] #### [facility] [address] [place] [address] Protein [Mass/Vol] 8.6 g/dL High 6.0-7.8 [facility] Comment on above: Performed By: #### 2 [id number] #### [facility] [address] [place] [address] Ambulatory Visit Summaryon 0 08-07-2023 Ambulatory Visit Summary EMELI KAUFMAN :1960 Visit Date:08/07/2023 Ambulatory Visit Instructions Your Care Team Attending Physician - Aurora RICE, Lauro Toro Primary Care Physician - Bernard RICE, Brianna This Is Your Medications List ergocalciferol (Vitamin D 50,000 intl units (1.25 mg) oral capsule) latanoprost ophthalmic (latanoprost Opth 0.005% Nita) letrozole (Femara 2.5 mg Tab) predniSONE sodium chloride (Sodium Chloride, Inhalation 0.9% inhalation solution) Procedures Performed Biopsy of lymph node (04/11/2023), Bronchoscopy (06/16/2021), Biopsy of breast, section. Discharge Vitals Heart Rate (Peripheral) 80 Blood Pressure 128/78 Height 165 cm Height 65 in Weight 55.7 kg Weight 122.54 lb BMI 20.46 What to do next Scheduled Follow-Up Appointments Monday 2:30 PM EST With: Where: [facility] Monday 3:00 PM EDT With: Aurora RICE, Lauro Toro Where: [facility] General Surgery [place] Normal [facility] General Surgery Office/Clini c Noteon 08-07-2023 General Surgery Office/Clinic Note Chief Complaint 3 month follow up HPI Staff Emeli is a 62 y.o. female here for 3 month follow up Hx of left breast cancer s/p [place] Node biopsy of left done 04/11/2023 denies breast changes She started letrozole 2.5 mg History of Present Illness 62-year-old female status post left breast needle localized lumpectomy, left axillary sentinel lymph node biopsy performed for ER positive IL HER2 negative T1 N1 MX breast cancer 2 of 2 lymph nodes found to have metastases, low Oncotype DX with chemotherapy declined by medical oncology, completed radiation therapy at [facility] here today for breast cancer surveillance visit. Patient reports no new issues at this time states that the redness to her left breast is decreased and stopping radiation therapy Review of Systems PHQ Score Initial Depression Screen Score: 0 SCORE Physical Exam Vitals & Measurements HR: 80(Peripheral) BP: 128/78 HT: 65 in HT: 165 cm WT: 55.7 kg WT: 122.54 lb BMI: 20.46 General: Patient appears cachectic Breast exam: Left breast incision clean dry intact healed well no nipple retraction skin thickening peau d'orange noted normal nipple areolar complex no dominant masses noted. Right breast exam normal Axillary exam: Left axillary incision is clean dry intact is healed well, no enlarged lymph nodes noted in the left axilla, right axillary exam normal Assessment/Plan 62-year-old female with ER positive IL HER2 negative breast cancer status post needle left breast localized lumpectomy left sentinel lymph node biopsy performed March 2023 here for surveillance visit 1. Breast cancer, left (C50.912: Malignant neoplasm of unspecified site of left female breast) Follow-up 3 months Ordered: E&M of Est. Patient Low 20-29 Min [id number] 2. Encounter for follow-up surveillance of breast cancer (Z08: Encounter for follow-up examination after completed treatment for malignant neoplasm) As above Ordered: E&M of Est. Patient Low 20-29 Min [id number] Portions of this record may have been created with voice recognition artificial intelligence software, specifically Slots.com, BuyMyTronics.com and or Dragon Ambient Experience. Substitutions may have occurred due to the inherent limitations of voice recognition and artificial intelligence software. Follow-up No qualifying data available Problem List/Past Medical History Ongoing Abnormal mammogram of left breast BMI 22.0-22.9, adult Breast cancer, left Encounter for follow-up surveillance of breast cancer Multiple sclerosis Personal history of bronchiectasis Historical Bronchiectasis Procedure/Surgical History Biopsy of lymph node (04/11/2023), Bronchoscopy (06/16/2021), Biopsy of breast, section. Medications Femara 2.5 mg Tab, 2.5 mg= 1 tab(s), Oral, Daily, 5 refills latanoprost Opth 0.005% Nita, 1 drop(s), Eye-Both, qPM predniSONE Sodium Chloride, Inhalation 0.9% inhalation solution, 1 dose, Inhalation, Daily Vitamin D 50,000 intl units (1.25 mg) oral capsule, 35801 International_Unit= 1 cap(s), Oral, qWeek Allergies No Known Medication Allergies Social History Alcohol - Denies Alcohol Use, 02/22/2023 Substance Abuse - Denies Substance Abuse, 02/22/2023 Tobacco - Denies Tobacco Use, 02/22/2023 Never (less than 100 in lifetime) Tobacco Use:. Never Smokeless Tobacco Use:. Household tobacco concerns: No., 05/22/2023 Immunizations Vaccine Date Status Comments influenza virus vaccine, inactivated - Not Given Postpone due to refusal influenza virus vaccine, inactivated 04/15/2022 Recorded influenza virus vaccine, inactivated 05/02/2021 Recorded SARS-CoV-2 (COVID-19) mRNA BNT-162b2 vax 10/31/2020 Recorded 2023-01-30: TPV60 SARS-CoV-2 (COVID-19) mRNA BNT-162b2 vax 10/10/2020 Recorded 2023-01-30: TPV60 influenza virus vaccine, inactivated 05/02/2019 Recorded influenza virus vaccine, inactivated 05/04/2018 Recorded diphtheria/pertussis, acel/tetanus adult 11/27/2017 Recorded influenza virus vaccine, inactivated 05/02/2017 Recorded influenza, unspecified formulation 05/09/2016 Recorded influenza virus vaccine, inactivated 05/07/2015 Recorded pneumococcal 13-valent vaccine 07/14/2014 Recorded influenza virus vaccine, inactivated 07/14/2014 Recorded Normal [facility] Comment on above: Result Comment: Elec tronically Signed By: Aurora RICE, Lauro Peacock\Date and Time Signed: 08/07/23 16:29 EST BD Bone Density DEXAon 06-01 BD Bone Density DEXA Exam Date/Time: 05/30/2023 14:43 EST Reason for Exam: M85.88;supervisor 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 The 10 year probability (FRAX) of a major osteoporotic fracture based on the right femoral neck bone marrow density is: 7.6%, and hip fracture 0.8%. The NOF/ISD guideline recommend FRAX for postmenopausal patients (not on treatment) if the lowest T-score for Spine(L1-L4), Femur Neck or Femur Total indicates low bone density (T score -1.0 to -2.5, osteopenia). EXAM: BD Bone Density DEXA DATE: 05/30/2023 2:21 PM CLINICAL HISTORY: supervisor intermediates medication use, M85.88. COMPARISON: None available. COMMENTS: The lumbar spine, left forearm, and both hips were scanned. The mean bone mineral density from L1 to L4 is 1.146 g/cm2 and this value is -0.3 standard of deviation below the standard reference value for a young adult. Bone mineral density of the left femoral neck is 0.858 g/cm2 and this value is -1.3 standard of deviation below the standard reference value. Bone mineral density of the right femoral neck is 0.845 g/cm2 and this value is -1.4 standard of deviation below the standard reference value. Bone mineral density left radius 33% is 0.753 g/cm2 and this value is -1.5 standard of deviation below the standard reference value. The lowest value(s) meet WHO criteria for osteopenia. RECOMMENDATIONS: 1. All patients should optimize her calcium and vitamin D intake. 2. Consider FDA-approved medical therapies in postmenopausal women and minimal age 50 years and older, based on the following: - hip or vertebral (clinical or morphometric) fracture. - T-score less than or equal to -2.5 at the femoral neck or spine after the appropriate evaluation to exclude secondary causes. Report - Low bone density (T score between -1.0 and -2.5 at the femoral neck or spine) and a 10 year probability of hip fracture greater than or equal to 3% or a 10-year probability of a major osteoporosis-related fracture greater than or equal to 20% based on FRAX calculation. - Clinician judgment and/or patient preferences may indicate treatment for people with 10 year fracture probability above or below these levels. - Further guidance on treatment can be found at the National Osteoporosis Foundation's website: bonesource.org 3. Patients with diagnosis of osteoporosis or high risk for fracture should have regular bone mineral density tests. For patients eligible for Medicare, routine testing is allowed once every 2 years. Testing frequency can be increased to 1 year for patient's history of rapidly progressing disease, those who are receiving or discontinuing medical therapy to restore bone mass or have additional risk factors. Ordering Provider: Neftali Narayan FINAL REPORT Dictated: 06/01/2023 12:47 pm Aamir Dale MD Signed (Electronic Signature): 06/01/2023 12:47 pm Signed by: Aamir Dale MD Transcribed by: MEAGAN Technologist: VINCE [facility] Operative Reporton 3 Operative Report [id number]# 1.00TIFF [facility] Consent for Treatmenton 05-17 Consent for Treatment [id number]#1 .00TIFF [facility] Outside Progress Noteon 05-17 Outside Progress Note [id number]# 1.00TIFF [facility] 29on 05-25-2023 29 Encounter addended by: Alana Mendez on: 05/25/2023 4:02 PM Actions taken: Letter saved Normal [facility] Orders Onlyon 05-24-2023 Orders Only [id number] Emeli Kaufman 1960 F Date Provider Department Center 05/24/2023 [id number] RODAS RAD ONC DCC No family history on file [facility] CHEMISTRYOrdered By: SYSTEM SYSTEM on 05-22-2023 Albumin [Mass/Vol] 3.5 g/dL Normal 3.3 - 5.0 gm/dL [facility] Remisol Albumin/Globulin [Mass ratio] 0.8 {ratio} Low 1.1 - 2.2 [facility] Remisol ALP [Catalytic activity/Vol] 65 [iU]/d Normal 21 - 98 Int._Unit/L [facility] Remisol ALT No additional P-5'-P [Catalytic activity/Vol] 13 [iU]/d Normal 6 - 46 Int._Unit/L [facility] Remisol AST [Catalytic activity/Vol] 20 [iU]/d Normal 5 - 43 Int._Unit/L [facility] Bilirubin [Mass/Vol] 0.3 mg/dL Normal 0.0 - 1 .1 mg/dL [facility] Remisol Bilirubin.direct [Mass/Vol] mg/dL Normal 0.1 - 0.4 mg/dL [facility] Remisol Bilirubin.indirect [Mass or moles/Vol] Unable to Calculate mg/dL Invalid Interpretation Code 0.1 - 0.9 mg/dL [facility] Globulin (S) [Mass/Vol] 4.5 g/dL High 1.4 - 4.0 gm/dL [facility] Remisol Protein [Mass/Vol] 8.0 g/dL High 6.0 - 7.8 gm/dL [facility] Remisol Consent for Treatmenton Consent for Treatment [id number]#1 .00TIFF Normal [facility] Consent for Treatment [id number]#1 .00TIFF Normal [facility] Hep Func Panelon 05-22-2023 Bilirubin.indirect [Mass or moles/Vol] UTC Abnormal 0.1-0.9 [facility] Comment on above: Result Comment: Resu lt verified by Discern Rule. Performed result UTC (Unable to Calculate) was sent as an Alpha code due the inability to calculate a valid numeric value. Performed By: #### 2 [id number] #### [facility] [address] [place] [address] Albumin [Mass/Vol] 3.5 g/dL Normal 3.3-5.0 [facility] Comment on above: Performed By: #### 2 [id number] #### [facility] [address] [place] [address] Albumin/Globulin (S) [Mass conc ratio] 0.8 Low 1.1-2.2 [facility] Comment on above: Performed By: #### 2 [id number] #### [facility] [address] [place] [address] ALP [Catalytic activity/Vol] 65 Int._Unit/L Normal 21-98 [facility] Comment on above: Performed By: #### 2 [id number] #### [facility] [address] [place] [address] ALT No additional P-5'-P [Catalytic activity/Vol] 13 Int._Unit/L Normal 6-46 [facility] Comment on above: Performed By: #### 2 [id number] #### [facility] [address] [place] [address] AST [Catalytic activity/Vol] 20 Int._Unit/L Normal 5-43 [facility] Comment on above: Performed By: #### 2 [id number] #### [facility] [address] [place] [address] Bilirubin [Mass/Vol] 0.3 mg/dL Normal 0.0-1.1 [facility] Comment on above: Performed By: #### 2 [id number] #### [facility] [address] [place] [address] Globulin (S) [Mass/Vol] 4.5 g/dL High 1.4-4.0 [facility] Comment on above: Performed By: #### 2 [id number] #### [facility] [address] [place] [address] Protein [Mass/Vol] 8.0 g/dL High 6.0-7.8 [facility] Comment on above: Performed By: #### 2 [id number] #### [facility] [address] [place] [address] Bilirubin.direct [Mass/Vol] mg/dL Normal 0.1-0.4 [facility] Comment on above: Performed By: #### 2 [id number] #### [facility] [address] [place] [address] Oncology Noteon 05-22-2023 Oncology Note Oncology Manager Mba Office Visit/Treatment Note Current Patient Status/Reason: Pt in with family member for scheduled clinic visit after diagnosis of breast cancer. I accompanied Dr. Narayan in room. explained Oncotype Dx findings, with understanding voiced. Pt has appt with [facility] radiation oncologist on 05/25. explained aromatase inhibitor to start 1 week after finishing radiation. Treatment Plan: [facility] radiation of breast. LFT, now and 4 weeks after starting Femara 2.5 mg, and bone density soon. Follow-Up Appointment Info/Referrals: F/U in 12 weeks. Resources Offered: I gave pt my contact information and instructed to call with any questions or concerns. I instructed and gave handout on Femara from [facility] pt education. Pt voiced no questions or concerns. I instructed in outpt lab where and when with understanding voiced. I explained Bone density, and that she would get a call from our central scheduling dept. Pt voiced understanding. Normal [facility] Comment on above: Result Comment: Elec tronically Signed By: Matias CRAMER, Akua\.br\Date and Time Signed: 05/22/23 14:57 EST Oncology Progress Noteon Oncology Progress Note Patient: EMELI KAUFMAN Age: 62 years Sex: Female : 1960 Associated Diagnoses: None Author: Sylvain RICE, Neftali Ling Chief Complaint Left breast invasive lobular carcinoma, ER +90%, IL +20 to 30%, HER2/elif 1+, and Ki67 was positive 1%. 2 out of 2 sentinel lymph node with positive for macro metastatic disease. History of Present Illness Emeli is a 62-year-old lady with history of multiple sclerosis and bronchiectasis who was referred by Dr. Simon to our oncology clinic to be evaluated and managed for her new left breast invasive lobular carcinoma, ER +90%, IL +20 to 30%, HER2/elif 1+, and Ki67 was positive 1%. 2 out of 2 sentinel lymph node with positive for macro metastatic disease. Her tumor was discussed at the [facility] tumor board patient is to obtain Oncotype DX score and identify if she needs chemotherapy or not. She will need for short adjuvant radiation and also adjuvant endocrine therapy. She initially had mammogram and ultrasound done on 01/05/2023 which revealed BI-RADS 4 of the left breast revealing 1.3 x 0.8 cm ill-defined heterogeneous solid ovoid nodule in the axillary tail at 2 o'clock position. They recommended left breast ultrasound-guided core biopsy which was done on 02/07/2023. She underwent left breast biopsy on 02/07/2023 which revealed invasive lobular carcinoma ER +90% and ki 67 was low 1%. Her lumpectomy was performed on 04/11/2023 and the surgical path revealed the following: A. TUMOR SUMMARY PROCEDURE: Lumpectomy with wire-guided localization LYMPH NODE SAMPLING: [place] lymph node(s) SPECIMEN INTEGRITY: multiple specimens (A and B) SPECIMEN SIZE: 3.5 x 2.6 x 0.8 cm (A) and 0.7-1.5 cm (B) SPECIMEN LATERALITY: Left TUMOR SITE OF INVASIVE CARCINOMA: Not specified SIZE OF LARGEST INVASION CARCINOMA: 1.1x0.6x0.5 cm TUMOR FOCALITY: Single focus of invasive carcinoma MACROSCOPIC AND MICROSCOPIC EXTENT OF TUMOR: Skin: Skin is not present Skeletal muscle: Skeletal muscle is not present DUCTAL CARCINOMA IN SITU (DCIS): Not identified SIZE (EXTENT) OF DCIS: NA LOBULAR CARCINOMA IN SITU (LCIS): Identified (involving 2 of 8 blocks) HISTOLOGIC TYPE OF INVASION CARCINOMA: Invasive lobular carcinoma GLANDULAR/TUBULAR DIFFERENTIATION: Score 3 NUCLEAR PLEOMORPHISM: Score 1 MITOTIC COUNT SCORE: Score 1 OVERALL GRADE OF INVASIVE CARCINOMA: Grade 1 (Total scores 5) MARGINS: Uninvolved by invasive carcinoma and LCIS (see comment above) Distance is indeterminant (part B represents true margin per surgeon). TREATMENT EFFECT: No known presurgical therapy LYMPHOVASCULAR INVASION: Not identified on the submitted sections DERMAL LYMPHOVASCULAR INVASION: No skin present LYMPH NODES: Metastatic lymph node identified (2/2) Number of sentinel lymph nodes examined: 2 Total number of lymph nodes examined (sentinel and nonsentinel): 2 Number of lymph nodes with macrometastasis: 2 Largest size of metastatic focus: 0.8 cm Extranodal extension: No identified METHOD OF EVALUATION OF SENTINAL NODES: H&E, multiple levels PRIMARY TUMOR (INVASIVE CARCINOMA (pT): pT1c (1 cm < tumor > 2cm) REGIONAL LYMPH NODES (pN): pN1a DISTANT METASTASIS (M): Not applicable ADDITIONAL PATHOLOGIC FINDINGS: NA ESTROGEN RECEPTOR: >90 % of invasive tumor cells, performed on previous biopsy (), please refer to previous report for details PROGESTERONE RECEPTOR: 20-30% of invasive tumor cells, performed on previous biopsy (), please refer to previous report for details Ki-67 INDEX OF INVASIVE TUMOR CELLS: Approximately 1% of invasive tumor cells, performed on previous biopsy (), please refer to previous report for details HER2/ELIF STUDIES: 1+ (IHC), performed on previous biopsy (), please refer to previous report for details MICROCALCIFICATIONS: Not identified on submitted sections CLINICAL HISTORY: Radiologic finding Final Diagnosis (Verified) A: LEFT BREAST, LUMPECTOMY WITH NEEDLE LOCALIZATION: ? INVASIVE LOBULAR CARCINOMA, GRADE 1 (1.1 CM). ? LOBULAR CARCINOMA IN SITU. ? MEDIAL AND ANTERIOR/POSTERIOR MARGIN < 1 MM FROM INVASIVE CARCINOMA. ? PREVIOUS BIOPSY SITE IDENTIFIED. B: TRUE MARGINS, LEFT BREAST, EXCISION: ? BENIGN FATTY BREAST TISSUE WITH NO EVIDENCE OF MALIGNANCY. ? MARGINS NEGATIVE FOR MALIGNANCY. C: SENTINEL LYMPH NODES, LEFT BREAST, EXCISION: ? METASTATIC LYMPH NODES IDENTIFIED (2/2). Recovering from her surgery and she is seeing Dr. Montano again today. She denies any chest pain or shortness of breath. She never had bone density scan. Is not currently on hormone replacement therapy. 05/22/23: Patient is here for her Oncotype DX score and final planning of her adjuvant treatment. She is scheduled to see Rad onc on 05/25/23 for adjuvant radiation to her left breast. Her Oncotype DX screen came back only 17 with Recurrent score of 15% only at 9 years and no clear benefit from adding chemo to adjuvant endocrine (more content not included)... Normal [facility] Patient Educationon 05-22-20 Patient Education Normal [facility] Lab Reportson 05-12-2023 Lab Reports [id number]#1 .00TIFF Normal [facility] Reference Lab Reporton 05-09 Reference Lab Report [id number]# 1.00TIFF Normal [facility] Consenton 05-03-2023 Consent [id number] #1.00TIFF Normal [facility] ONC - Otheron 05-03-2023 ONC - Other [id number] #1.00TIFF Normal [facility] General Surgery Office/Clini c Noteon 05-02-2023 General Surgery Office/Clinic Note HPI Staff Emeli is a 62 y.o. female here for s/p sentinel node biopsy done 04/11/23 History of Present Illness Emeli Kaufman is a 62-year-old female who presents today for a follow-up of left axillary seroma following lumpectomy and sentinel lymph node biopsy. The seroma is almost completely resolved with only a small collection left, substantially decreased in size from when she was last seen 10 days ago in the office. She may follow up with us in 3 months as scheduled for her routine breast cancer surveillance. She last saw Dr. Narayan on 05/01/2023. We are awaiting Oncotype DX results. Review of Systems Constitutional: No fever, no sweats, no weight loss. Eyes: No glasses, no blurred vision, no visual loss. ENMT: No dentures, no hoarseness, no swallowing difficulties, no hearing loss, no ear infection (s), no nose bleeds. Cardiovascular: Normal blood pressure, no chest pain, regular heartbeat, no heart murmur. Respiratory: No shortness of breath, no cough, no wheezing, no asthma. Gastrointestinal: No nausea, no vomiting, no diarrhea, no constipation, no change in bowel habits, no abdominal pain, no hepatitis. Genitourinary: No kidney stones, no urine infection, no difficulty passing urine. Musculoskeletal: No pain, no weakness. Skin: No changing moles, no rash, no skin lumps. Neurologic: No seizures, no epilepsy, no headache. Psychiatric: No emotional, no psychiatric problem. Endocrine: No thyroid, no diabetes. Heme/Lymph: No bleeding problems, no anemia, no blood clots, no transfusions. Allergy/Immunologic: No swollen lymph nodes/glands, no IV drug abuse. Other: Additional ROS info: Except as noted in the above Review of Systems and in the History of Present Illness, all other systems have been reviewed and are negative or noncontributory. Physical Exam General: No acute distress Respiratory: Unlabored breathing on room air Cardiac: Regular rate and rhythm Abdomen: Soft nontender nondistended Assessment/Plan The patient may follow up with us in 3 months as scheduled for her routine breast cancer surveillance. She last saw Dr. Narayan on 05/01/2023. We are awaiting Oncotype DX results for the patient. 1. Breast cancer, left (C50.912: Malignant neoplasm of unspecified site of left female breast) ATTESTATION: Portions of this record may have been created with voice recognition artificial intelligence software, specifically Slots.com, [employer]MyTron[employer].com and or [employer] [employer]. Substitutions may have occurred voice recognition and artificial intelligence software. Documentation services were performed after patient or guardian consented to allow [employer] to record this visit. SANTA military technology specialist and provider reviewed before signing. SANTA: Scarlet Neal/Pasted by: Scarlet Neal Follow-up No qualifying data available Problem List/Past Medical History Ongoing Abnormal mammogram of left breast BMI 22.0-22.9, adult Breast cancer, left Multiple sclerosis Personal history of bronchiectasis Historical Bronchiectasis Procedure/Surgical History Biopsy of lymph node (04/11/2023), Bronchoscopy (06/16/2021), Biopsy of breast, section. Medications latanoprost Opth 0.005% Nita, 1 drop(s), Eye-Both, qPM predniSONE Sodium Chloride, Inhalation 0.9% inhalation solution, 1 dose, Inhalation, Daily Vitamin D 50,000 intl units (1.25 mg) oral capsule, 02113 International_Unit= 1 cap(s), Oral, qWeek Allergies No Known Medication Allergies Social History Alcohol - Denies Alcohol Use, 02/22/2023 Substance Abuse - Denies Substance Abuse, 02/22/2023 Tobacco - Denies Tobacco Use, 02/22/2023 Never (less than 100 in lifetime) Tobacco Use:. Never Smokeless Tobacco Use:., 04/21/2023 Immunizations Vaccine Date Status Comments influenza virus vaccine, inactivated - Not Given Postpone due to refusal influenza virus vaccine, inactivated 04/15/2022 Recorded influenza virus vaccine, inactivated 05/02/2021 Recorded SARS-CoV-2 (COVID-19) mRNA BNT-162b2 vax 10/31/2020 Recorded 2023-01-30: TPV60 SARS-CoV-2 (COVID-19) mRNA BNT-162b2 vax 10/10/2020 Recorded 2023-01-30: TPV60 influenza virus vaccine, inactivated 05/02/2019 Recorded influenza virus vaccine, inactivated 05/04/2018 Recorded diphtheria/pertussis, acel/tetanus adult 11/27/2017 Recorded influenza virus vaccine, inactivated 05/02/2017 Recorded influenza, unspecified formulation 05/09/2016 Recorded influenza virus vaccine, inactivated 05/07/2015 Recorded pneumococcal 13-valent vaccine 07/14/2014 Recorded influenza virus vaccine, inactivated 07/14/2014 Recorded Diagnostic Results No results were obtained or interrupted today. [facility] Comment on above: Result Comment: Elec tronically Signed By: Lauro Simon MD\.br\Date and Time Signed: 05/02/23 08:37 EDT\.br\Electronically Co-Signed By: Scarlet Neal\.br\Date and Time Co-Signed: 05/01/23 14:47 EDT\.br\Electronically Co-Signed By: Scarlet Neal\.br\Date and Time Co-Signed: 05/01/23 14:52 EDT Consent for Treatmenton 04-16 Consent for Treatment [id number]#1 .00TIFF [facility] Oncology Noteon 05-01-2023 Oncology Note Oncology Manager Mba Office Visit/Treatment Note Current Patient Status/Reason: Patient here with spouse for scheduled Initial Clinic Visit. I accompanied Dr. Narayan in room. Patient informs of left breast cancer - ER/IL positive. Patient has positive Lymph node. Medical history reviewed. Disease process and treatment options reviewed. Treatment Plan: Oncotype DX(per Teri/Dr. Simon's office will send), refer to Radiation-[facility] per patient's request Follow-Up Appointment Info/Referrals: 3 weeks Resources Offered: Distress thermometer of 4 discussed - no needs at this time. Distress thermometer emailed to social sciences professor. Contact information provided to patient. Normal [facility] Comment on above: Result Comment: Elec tronically Signed By: Donna CRAMER, Aundrea Perez\.br\Date and Time Signed: 05/01/23 12:59 EDT Oncology Progress Noteon Oncology Progress Note Patient: EMELI KAUFMAN Age: 62 years Sex: Female : 1960 Associated Diagnoses: None Author: Sylvain RICE, Neftali Ling Chief Complaint Left breast invasive lobular carcinoma, ER +90%, IL +20 to 30%, HER2/elif 1+, and Ki67 was positive 1%. 2 out of 2 sentinel lymph node with positive for macro metastatic disease. History of Present Illness Emeli is a 62-year-old lady with history of multiple sclerosis and bronchiectasis who was referred by Dr. Simon to our oncology clinic to be evaluated and managed for her new left breast invasive lobular carcinoma, ER +90%, IL +20 to 30%, HER2/elif 1+, and Ki67 was positive 1%. 2 out of 2 sentinel lymph node with positive for macro metastatic disease. Her tumor was discussed at the [facility] tumor board patient is to obtain Oncotype DX score and identify if she needs chemotherapy or not. She will need for short adjuvant radiation and also adjuvant endocrine therapy. She initially had mammogram and ultrasound done on 01/05/2023 which revealed BI-RADS 4 of the left breast revealing 1.3 x 0.8 cm ill-defined heterogeneous solid ovoid nodule in the axillary tail at 2 o'clock position. They recommended left breast ultrasound-guided core biopsy which was done on 02/07/2023. She underwent left breast biopsy on 02/07/2023 which revealed invasive lobular carcinoma ER +90% and ki 67 was low 1%. Her lumpectomy was performed on 04/11/2023 and the surgical path revealed the following: A. TUMOR SUMMARY PROCEDURE: Lumpectomy with wire-guided localization LYMPH NODE SAMPLING: [place] lymph node(s) SPECIMEN INTEGRITY: multiple specimens (A and B) SPECIMEN SIZE: 3.5 x 2.6 x 0.8 cm (A) and 0.7-1.5 cm (B) SPECIMEN LATERALITY: Left TUMOR SITE OF INVASIVE CARCINOMA: Not specified SIZE OF LARGEST INVASION CARCINOMA: 1.1x0.6x0.5 cm TUMOR FOCALITY: Single focus of invasive carcinoma MACROSCOPIC AND MICROSCOPIC EXTENT OF TUMOR: Skin: Skin is not present Skeletal muscle: Skeletal muscle is not present DUCTAL CARCINOMA IN SITU (DCIS): Not identified SIZE (EXTENT) OF DCIS: NA LOBULAR CARCINOMA IN SITU (LCIS): Identified (involving 2 of 8 blocks) HISTOLOGIC TYPE OF INVASION CARCINOMA: Invasive lobular carcinoma GLANDULAR/TUBULAR DIFFERENTIATION: Score 3 NUCLEAR PLEOMORPHISM: Score 1 MITOTIC COUNT SCORE: Score 1 OVERALL GRADE OF INVASIVE CARCINOMA: Grade 1 (Total scores 5) MARGINS: Uninvolved by invasive carcinoma and LCIS (see comment above) Distance is indeterminant (part B represents true margin per surgeon). TREATMENT EFFECT: No known presurgical therapy LYMPHOVASCULAR INVASION: Not identified on the submitted sections DERMAL LYMPHOVASCULAR INVASION: No skin present LYMPH NODES: Metastatic lymph node identified (2/2) Number of sentinel lymph nodes examined: 2 Total number of lymph nodes examined (sentinel and nonsentinel): 2 Number of lymph nodes with macrometastasis: 2 Largest size of metastatic focus: 0.8 cm Extranodal extension: No identified METHOD OF EVALUATION OF SENTINAL NODES: H&E, multiple levels PRIMARY TUMOR (INVASIVE CARCINOMA (pT): pT1c (1 cm < tumor > 2cm) REGIONAL LYMPH NODES (pN): pN1a DISTANT METASTASIS (M): Not applicable ADDITIONAL PATHOLOGIC FINDINGS: NA ESTROGEN RECEPTOR: >90 % of invasive tumor cells, performed on previous biopsy (), please refer to previous report for details PROGESTERONE RECEPTOR: 20-30% of invasive tumor cells, performed on previous biopsy (), please refer to previous report for details Ki-67 INDEX OF INVASIVE TUMOR CELLS: Approximately 1% of invasive tumor cells, performed on previous biopsy (), please refer to previous report for details HER2/ELIF STUDIES: 1+ (IHC), performed on previous biopsy (), please refer to previous report for details MICROCALCIFICATIONS: Not identified on submitted sections CLINICAL HISTORY: Radiologic finding Final Diagnosis (Verified) A: LEFT BREAST, LUMPECTOMY WITH NEEDLE LOCALIZATION: ? INVASIVE LOBULAR CARCINOMA, GRADE 1 (1.1 CM). ? LOBULAR CARCINOMA IN SITU. ? MEDIAL AND ANTERIOR/POSTERIOR MARGIN < 1 MM FROM INVASIVE CARCINOMA. ? PREVIOUS BIOPSY SITE IDENTIFIED. B: TRUE MARGINS, LEFT BREAST, EXCISION: ? BENIGN FATTY BREAST TISSUE WITH NO EVIDENCE OF MALIGNANCY. ? MARGINS NEGATIVE FOR MALIGNANCY. C: SENTINEL LYMPH NODES, LEFT BREAST, EXCISION: ? METASTATIC LYMPH NODES IDENTIFIED (2/2). Recovering from her surgery and she is seeing Dr. Montano again today. She denies any chest pain or shortness of breath. She never had bone density scan. Is not currently on hormone replacement therapy. Review of Systems Constitutional: Negative. Eye: Negative. Ear/Nose/Mouth/Throat : Negative. Respiratory: Negative. Cardiovascular: Negative. Gastrointestinal: Negative. Genitourinary: Negative. Hematology/Lymphatics : Negative. Immunologic: Negative. Musculoskeletal: Negative. Integumentary: Negative. Ne (more content not included)... [facility] Ambulatory Visit Summaryon 1 Ambulatory Visit Summary EMELI KAUFMAN :1960 Visit Date:04/21/2023 Ambulatory Visit Instructions Your Diagnosis Breast cancer, left Your Care Team Attending Physician - Lauro Simon MD Primary Care Physician - Brianna Yanez MD This Is Your Medications List ergocalciferol (Vitamin D 50,000 intl units (1.25 mg) oral capsule) latanoprost ophthalmic (latanoprost Opth 0.005% Nita) sodium chloride (Sodium Chloride, Inhalation 0.9% inhalation solution) Procedures Performed Biopsy of lymph node (04/11/2023), Bronchoscopy (06/16/2021), Biopsy of breast, section. What to do next Scheduled Follow-Up Appointments Monday 2:00 PM EDT With: Aurora RICE, Lauro Toro Where: [facility] General Surgery [place] [facility] General Surgery Office/Clini c Noteon 04-21-2023 General Surgery Office/Clinic Note HPI Staff Emeli is a 62 y.o. female here for s/p needle lumpectomy done 04/11/23 She continues to have a baseball size lump above incision that started yesterday. Denies fever or pain. History of Present Illness Here for postop visit has seroma in left axilla says it is gotten somewhat smaller in size Physical Exam Left axillary seroma soft roughly 3 cm in diameter incisions clean dry intact and healing well no evidence of infection, left breast incision is also clean dry intact and healing well Assessment/Plan 62-year-old female left breast cancer, 2 of the 2 nodes with metastatic disease, margins clear ER/IL positive HER2 negative low Ki-67 index T1 cN1 Mx 1. Breast cancer, left (C50.912: Malignant neoplasm of unspecified site of left female breast) Medical oncology, follow-up in 2 weeks for wound check, Oncotype DX, patient is listed for tumor board. Ordered: [facility] Internal Ambulatory Referral Postoperative follow-up visit, related to the original procedure [id number] Follow-up No qualifying data available Problem List/Past Medical History Ongoing Abnormal mammogram of left breast BMI 22.0-22.9, adult Breast cancer, left Multiple sclerosis Personal history of bronchiectasis Historical Bronchiectasis Procedure/Surgical History Biopsy of lymph node (04/11/2023), Bronchoscopy (06/16/2021), Biopsy of breast, section. Medications latanoprost Opth 0.005% Nita, 1 drop(s), Eye-Both, qPM Sodium Chloride, Inhalation 0.9% inhalation solution, 1 dose, Inhalation, Daily Vitamin D 50,000 intl units (1.25 mg) oral capsule, 64945 International_Unit= 1 cap(s), Oral, qWeek Allergies No Known Medication Allergies Social History Alcohol - Denies Alcohol Use, 02/22/2023 Substance Abuse - Denies Substance Abuse, 02/22/2023 Tobacco - Denies Tobacco Use, 02/22/2023 Never (less than 100 in lifetime) Tobacco Use:. Never Smokeless Tobacco Use:., 04/21/2023 Immunizations Vaccine Date Status Comments influenza virus vaccine, inactivated - Not Given Postpone due to refusal influenza virus vaccine, inactivated 04/15/2022 Recorded influenza virus vaccine, inactivated 05/02/2021 Recorded SARS-CoV-2 (COVID-19) mRNA BNT-162b2 vax 10/31/2020 Recorded 2023-01-30: TPV60 SARS-CoV-2 (COVID-19) mRNA BNT-162b2 vax 10/10/2020 Recorded 2023-01-30: TPV60 influenza virus vaccine, inactivated 05/02/2019 Recorded influenza virus vaccine, inactivated 05/04/2018 Recorded diphtheria/pertussis, acel/tetanus adult 11/27/2017 Recorded influenza virus vaccine, inactivated 05/02/2017 Recorded influenza, unspecified formulation 05/09/2016 Recorded influenza virus vaccine, inactivated 05/07/2015 Recorded pneumococcal 13-valent vaccine 07/14/2014 Recorded influenza virus vaccine, inactivated 07/14/2014 Recorded [facility] Comment on above: Result Comment: Elec tronically Signed By: Aurora RICE, Lauro Toro\.br\Date and Time Signed: 04/21/23 09:12 EDT IntraOperative Documentson 1 IntraOperative Documents [id number] #1.00CD:127 [facility] Main OR Intraoperative Recor don 04-13-2023 Main OR Intraoperative Record IntraOp Document Type FT Summary Primary Physician: Lauro Simon MD Finalized Date/Time: 04/13/23 13:34:41 Pt. Name: EMELI KAUFMAN/Sex: 1960 Female Med Rec #: [id number] Physician: Laruo Simon MD Financial #: [id number] Pt. Type: A Room/Bed: [place] [address] Admit/Disch: 04/11/23 08:40:14 - 04/11/23 15:30:00 Institution: Case Times FT Entry 1 Patient Times In Room 04/11/23 11:25:00 Out Room 04/11/23 13:19:00 Procedure Times Start 04/11/23 11:52:00 Stop 04/11/23 13:14:00 Anesthesia Times Start 04/11/23 11:25:00 Stop 04/11/23 13:19:00 Last Modified By: Teresa Minor RN 04/11/23 13:19:25 General Comments: 04/13/23 Chart opened to review and send charges LRoth CSFA Case Attendance FT Entry 1 Entry 2 Entry 3 Case Attendee Aurora RICE, Lauro GARDNER, Brissa Doyle A Role Performed Surgeon - Primary Anesthesiologist Scrub - Primary Wharf Attendant Time In 04/11/23 11:45:00 04/11/23 11:25:00 04/11/23 11:25:00 Time Out 04/11/23 12:58:00 04/11/23 13:19:00 04/11/23 13:01:00 Procedure BREAST BIOPSY(Left), BREAST BIOPSY(Left), BREAST BIOPSY(Left), SENTINEL NODE SENTINEL NODE SENTINEL NODE BIOPSY(Left) BIOPSY(Left) BIOPSY(Left) Comments Dr. Hanson supervising Last Modified By: Iván RN, Teresa Minor RN, Teresa Minor RN, Teresa Alatorre 04/11/23 13:19:26 04/11/23 13:19:04/11/23 13:19:26 Entry 4 Entry 5 Entry 6 Case Attendee Iván CRAMER, Darrel Guadalupe RN, Kayla Alatorre Role Performed Railroad Police - Primary HAIR TINTER/SA [employer] - Relief Time In 04/11/23 11:25:00 04/11/23 11:25:00 04/11/23 11:50:00 Time Out 04/11/23 13:19:00 04/11/23 13:19:00 04/11/23 12:35:00 Procedure BREAST BIOPSY(Left), BREAST BIOPSY(Left), BREAST BIOPSY(Left), SENTINEL NODE SENTINEL NODE SENTINEL NODE BIOPSY(Left) BIOPSY(Left) BIOPSY(Left) Comments Out of room for lunch [id number] Last Modified By: Iván RN, Teresa Minor RN, Teresa Minor RN, Teresa Alatorre 04/11/23 13:19:26 04/11/23 13:19:04/11/23 13:19: Perioperative Protocols FT Pre-Care Text: Implements protective measures prior to operative or invasive procedure, confirms identity before the operative or invasive procedure, verifies operative procedure, surgical site, and laterality Entry 1 Procedure(s) BREAST BIOPSY(Left), Patient Identity Birthday, ID Band SENTINEL NODE Verified (select at Check, Patient BIOPSY(Left) least 2): Participation Consents / H and P Anesthesia Consent, Operative Site Present Verified HandP, Surgery/Procedure Marking Verified Consent Surgical Site Yes Laterality Verified Yes Verified Procedure Verified Yes Correct Patient Yes Position Verified Availability Equipment, Medication Prep Dry Yes Verified (If Applicable) PreOp Antibiotic Yes Time Out Lauro Oates, Given Participants Aurora RICE, Lauro Toro, Iván CRAMER, Michele Pugh James W, Chap[place], [place] A, Mary CRAMER, Kayla Alatorre Time Out Complete 04/11/23 11:50:00 Outcomes Met? Yes Last Modified By: Teresa Minor RN 04/11/23 12:40:02 Post-Care Text: The patient is free from signs and symptoms of injury caused by extraneous objects Allergy Information FT Pre-Care Text: Verifies allergies Entry 1 Allergies Reviewed? Yes Allergies Reviewed Self/Patient With Outcomes Met? Yes Last Modified By: Teresa Minor RN 04/11/23 10:04:59 Post-Care Text: The patient received appropriate medication(s) safely administered during the perioperative period Surgical Procedures FT Entry 1 Entry 2 Procedure Description Procedure BREAST BIOPSY SENTINEL NODE BIOPSY Modifiers Left Left Surgeon Description LEFT BREAST NEEDLE LEFT BREAST NEEDLE LOCALIZED LUMPECTOMY LOCALIZED LUMPECTOMY WITH LEFT AXILLARY WITH LEFT AXILLARY SENTINEL LYMPH NODE SENTINEL LYMPH NODE BIOPSY BIOPSY Primary Procedure Yes No Primary Surgeon Aurora RICE, Lauro Simon MD, Lauro Toro Start 04/11/23 11:52:00 04/11/23 11:52:00 Stop 04/11/23 13:14:00 04/11/23 13:14:00 Anesthesia Type General General Surgical Service General General Wound Class 1 - Clean 1 - Clean Last Modified By: Teresa Minor RN, RN, Sheminith A 04/11/23 13:16:52 04/11/23 13:16:52 General Case Data FT Pre-Care Text: Classifies surgical wound, implements aseptic technique, initiates traffic control Entry 1 Case Information OR OR 5 FT Case Level Level 2 Wound Class 1 - Clean Specialty General ASA Class 2 Preop Diagnosis MALIGNANT NEOPLASM LEFT Postop Same As Preop Yes BREAST Postop Diagnosis MALIGNANT NEOPLASM LEFT Outcomes Met? Yes BREAST Last Modified By: Teresa Minor RN 04/11/23 12:47:54 Post-Care Text: The patient is free from signs and symptoms of infection Skin Assessment (Pre Procedure) FT Pre-Care Text: Implements protective measures to prevent skin/ tissue injury due to thermal or mechanical sources Evaluates for signs and sympto (more content not included)... [facility] Postoperative Documentson Postoperative Documents [id number]#1 .00CD:127 [facility] Progress Note-Physicianon Progress Note-Physician Patient: EMELI KAUFMAN Age: 62 years Sex: Female : 1960 Associated Diagnoses: None Author: MD Hanson Ahmad F Postoperative Information Postoperative disposition: Postoperative disposition: To PACU. Optimetrix number: Optimetrix number [id number]. Anesthetic utilized: General. Health Status Allergies: Allergic Reactions (Selected) No Known Medication Allergies Physical Examination VS/Measurements Pain Assessment: Controlled. General: Awake, Alert, Appropriate. Respiratory: Adequate air exchange. Cardiovascular: Stable, Normal peripheral perfusion. Neurological: Normal sensory function, Normal motor function. Assessment Anesthetic outcome No anesthetic complications noted. Adequate pain relief. able to void without difficulty, able to ambulate with assist, tolerating PO intake, no N/V. Review / Management Condition: Stable. Plan Transfer/Discharge: Transfer/Discharge Discharge when meets criteria ( To home ). [facility] Comment on above: Result Comment: Elec tronically Signed By: MD Hanson Ahmad F\.br\Date and Time Signed: 04/13/23 09:56 EDT Progress Note-Physician Patient: EMELI KAUFMAN Age: 62 years Sex: Female : 1960 Associated Diagnoses: None Author: MD Hanson Ahmad F Preoperative Information Time patient last ate or drank:=== (npo 8 hours) Anesthesia history: Patient history: No prior anesthesia problems. Re-evaluation prior to induction: Completed, Initial evaluation reviewed. Review of Systems Respiratory: No shortness of breath. Cardiovascular: No chest pain. Hematology/Lymphatics : No bruising tendency, No bleeding tendency. Health Status Allergies: Allergic Reactions (All) No Known Medication Allergies Current medications: (Selected) Prescriptions Prescribed [place] 325 mg-5 mg oral tablet: 1 tab(s), Oral, q6hr as needed for pain, 12 tab(s), Refill(s) 0, [facility], 165, cm, 03/01/23 11:22:00 EDT, Height/Length Dosing, 55.8, kg, 03/01/23 11:22:00 EDT, Weight Dosing Documented Medications Documented Sodium Chloride, Inhalation 0.9% inhalation solution: 1 dose, Inhalation, Daily, Other (see comment) Vitamin D 50,000 intl units (1.25 mg) oral capsule: 50,000 International_Unit = 1 cap(s), Oral, qWeek, Refills(s) 0, Prophylaxis latanoprost Opth 0.005% Nita: 1 drop(s), Eye-Both, qPM, Refill(s) 0, Other (see comment) Problem list: All Problems Frequent episodes of pneumonia / SNOMED CT 253544615 / Confirmed Multiple sclerosis / SNOMED CT 88505867 / Confirmed Abnormal mammogram of left breast / SNOMED CT 751597107 / Confirmed Breast cancer, left / SNOMED CT 992667296 / Confirmed BMI 22.0-22.9, adult / SNOMED CT 2974321394 / Confirmed Personal history of bronchiectasis / SNOMED CT 942849766 / Confirmed Inactive: EVAN (mycobacterium avium-intracellulare) / SNOMED CT 5126127775 Resolved: Bronchiectasis / SNOMED CT 58059696 Histories Past Medical History: Resolved Bronchiectasis (31710205): Resolved. Family History: Procedure history: Biopsy of lymph node in left breast (03744952) on 04/11/2023 at 62 Years. Bronchoscopy (72156939) on 06/16/2021 at 60 Years. section (69470681). Biopsy of breast - left (168964638). Social History Social & Psychosocial Habits Alcohol 02/22/2023 Risk Assessment: Denies Alcohol Use Substance Abuse 02/22/2023 Risk Assessment: Denies Substance Abuse Tobacco 02/22/2023 Risk Assessment: Denies Tobacco Use 03/01/2023 Tobacco Use: Never (less than 100 in l Smokeless tobacco use: Never . Physical Examination Please see preop flow sheet Airway: Mallampati classification: II (soft palate, fauces, uvula visible). Respiratory: Lungs are clear to auscultation. Cardiovascular: Normal rate, Regular rhythm. Neurologic: Alert. Review / Management Results review Interpretation of Outside Results Chest x-ray results Radiology results ECG interpretation Condition Plan [place] [employer]esthesi[employer] (ASA) physical status classification: Class II. Anesthetic Preoperative Plan Anesthesia: General. . Anesthetic plan, risks, benefits, and alternatives discussed with the patient and/or family. Risks discussed: nausea, vomiting, headache, sore throat, dental injury, serious complications. Patient verbalized understanding. Communication: face to face with patient 5 minutes. [facility] Comment on above: Result Comment: Elec tronically Signed By: MD Valentin, Chloe Arechiga\.br\Date and Time Signed: 04/13/23 09:54 EDT Consent for Anesthesiaon Consent for Anesthesia [id number]# 1.00CD:127 [facility] Discharge Instructionson Discharge Instructions [id number]# 1.00CD:127 [facility] IntraOperative Documentson 0 04-12-2023 IntraOperative Documents [id number]# 1.00CD:127 [facility] IntraOperative Documents [id number]# 1.00CD:127 [facility] Preoperative Documentson Preoperative Documents [id number]# 1.00CD:127 [facility] Provider Letteron 04-12-2023 Provider Letter April 12, 2023 EMELI KAUFMAN [id number] [place] [address] : 1960 To Whom It May Concern, Please excuse above patient from work. Date of Illness: From: 04/11/2023 To: 04/14/2023 May Return to Work On: 04/17/2023 Restrictions: None Comments: _ Sincerely, Lauro Simon MD [facility] General Surgery work excuse emailed to @[facility]..co m per patient request. [facility] Consent for Procedure/Surger yon 04-11-2023 Consent for Procedure/Surgery [id number]#1 .00CD:127 [facility] Consent for Treatmenton 03-18 Consent for Treatment [id number]#1 .00CD:127 [facility] Discharge Instructionson Discharge Instructions EMELI KAUFMAN :1960 Visit Date:04/11/2023 Inpatient Discharge Instructions Your Care Team Admitting Physician - Lauro Simon MD Consulting Physician - Cheryle Kam, Tee Perez Referring Physician - Aurora RICE, Lauro Toro Reason for Your Visit C50.912 This Is Your Medications List acetaminophen-hydroco done ([place] 325 mg-5 mg oral tablet) ergocalciferol (Vitamin D 50,000 intl units (1.25 mg) oral capsule) latanoprost ophthalmic (latanoprost Opth 0.005% Nita) sodium chloride (Sodium Chloride, Inhalation 0.9% inhalation solution) Procedure History Bronchoscopy (06/16/2021), Biopsy of breast, section. What to do next Instructions From Your Doctor Event Name Event Result Discharge Instructions Freetext Okay to remove wraps tomorrow, okay to remove gauze tomorrow. Do not remove skin glue. Okay to shower tomorrow. Do not submerge incision in water as in pool or tub for 2 weeks after surgery Discharge Activity Resume normal activities in 24 hours, Expect mild pain, Expect minimal amount of drainage and/or bleeding Discharge Restrictions No driving for 24 hrs, Do not make important decisions for 24 hours, Do not drink alcoholic beverages for 24 hours Discharge Diet(s) Regular Call Your Doctor For Persistent or heavy bleeding, Temperature above 101.5 degrees, Redness, swelling, or pus at operative site, Severe pain at the operative site, Persistent vomiting Discharge Instructions Discharge Instructions Previously Scheduled Follow-Up Appointments Monday 9:00 AM EDT With: Where: FT Mammography Monday 10:30 AM EDT With: Where: [facility] Nuclear Medicine Monday 8:40 AM EDT With: Lauro Simon MD Where: [facility] General Surgery [facility] Comment on above: Result Comment: Elec tronically Signed By: Madi CRAMER, Rio Olson\.br\Date and Time Signed: 04/11/23 13:59 EDT H&P Updateon 04-11-2023 H&P Update [id number]#1 .00CD:127 [facility] Inpatient Patient Summaryon 04-11-2023 Inpatient Patient Summary [address] [address] [facility] Clinical Discharge Instructions PERSON INFORMATION Name: EMELI KAUFMAN PHYSICIANS Admitting Physician: Lauro Simon MD Attending Physician: Lauro Simon MD PCP: Brianna Yanez MD Discharge Diagnosis: Comment: PATIENT EDUCATION INFORMATION Instructions: Lumpectomy, Care After Medication Leaflets: Follow up: With: Address: When: Lauro Simon [address] [place] [phone] Business (1) Comments: Appointment has already been scheduled Type Location Start Finish State MA Needle Loc (FT) FT.MAMMOGRAM 04/11/2023 9:00 AM 04/11/2023 9:45 AM Confirmed NM Lymphoscintigraphy (FT) FT.NUCLEAR MED 04/11/2023 10:30 AM 04/11/2023 12:00 PM Confirmed GS Post Op 15 [facility] GS [place] 04/21/2023 8:40 AM 04/21/2023 9:00 AM Confirmed MEDICATION LIST New Medications [facility] [address], [address] [place], [place] [id number], [phone] acetaminophen-hydroco done ([place] 325 mg-5 mg oral tablet) 1 Tablets By Mouth every 6 hours as needed as needed for pain. Refills: 0. Medications to Continue with No Changes Other Medications ergocalciferol (Vitamin D 50,000 intl units (1.25 mg) oral capsule) 1 Capsules By Mouth every week. latanoprost ophthalmic (latanoprost Opth 0.005% Nita) 1 Drops Both eyes once a day (in the evening)., glaucoma sodium chloride (Sodium Chloride, Inhalation 0.9% inhalation solution) 1 dose Inhalation every day., bronchiectasis Comment: [facility] Breast Needle Loc w/ Guid marianelae, Lefton 04-11-2023 [place] Breast Needle Loc w/ Guidance, Left Exam Date/Time: 04/11/2023 09:52 EDT Reason for Exam: Abnormal mammogram;C50.912 Report IMPRESSION: PREOPERATIVE LOCALIZATION PROCEDURE LEFT BREAST. CLINICAL HISTORY: Abnormal mammogram, C50.912. COMMENT: The procedure was discussed with the patient. Using sterile technique, lidocaine infiltration for analgesia, and mammographic localization, a localization needle and wire were introduced into the left breast. The needle was removed and the wire left in place. The end of the localization wire is in close proximity to the small metallic biopsy clip in the upper outer left breast. Ordering Provider: Lauor Simon FINAL REPORT Dictated: 04/11/2023 12:22 pm Tee Lobato M.D. Signed (Electronic Signature): 04/11/2023 12:22 pm Signed by: Tee Lobato M.D. Transcribed by: MEAGAN Technologist: [facility] Surgical Specimen Lefton 04-11-2023 [place] Surgical Specimen Left Exam Date/Time: 04/11/2023 12:12 EDT Reason for Exam: Biopsy Report IMPRESSION: BIOPSY CLIP WITHIN THE LEFT BREAST SURGICAL SPECIMEN. CLINICAL HISTORY: Biopsy. COMMENT: The left breast surgical specimen was radiographed. The end of the localization wire and the metallic biopsy clip are located within the surgical specimen. Ordering Provider: Lauro Simon FINAL REPORT Dictated: 04/11/2023 12:20 pm Tee Lobato M.D. Signed (Electronic Signature): 04/11/2023 12:20 pm Signed by: Tee Lobato M.D. Transcribed by: MEAGAN Technologist: PETRA Chowdhury [facility] Main OR PACU I Recordon 03-18 Main OR PACU I Record PACU Phase I Docum ent Type FT Summary Primary Physician: Lauro Simon MD Finalized Date/Time: 04/11/23 14:30:12 Pt. Name: ZANDRACONOR HODGEJOSELINE Alexander./Sex: 1960 Female Med Rec #: [id number] Physician: Lauro Simon MD Financial #: [id number] Pt. Type: A Room/Bed: [facility]09/14 Admit/Disch: 04/11/23 08:40:14 - Institution: Case Times PACU I FT Pre-Care Text: Identifies barriers to communication and implements measures to provide psychological support Develops individualized plan of care, and ensures continuity of care Maintains patient's dignity and privacy, and maintains patient confidentiality Identifies and reports philosophical, cultural, and spiritual beliefs and values Identifies individual values and wishes concerning care Implements aseptic technique, and administers prescribed antibiotic therapy and immunizing agents as ordered Evaluates postoperative tissue perfusion Implements thermoregulation measures, and monitors body temperature Evaluates postoperative respiratory status Evaluates postoperative cardiac status Evaluates postoperative neurological status Assesses pain control, collaborated in initiating patient-controlled analgesia and implements alternative methods of pain control Verifies allergies, administers prescribed medications and solutions, evaluates response to medications Entry 1 In PACU I 04/11/23 13:21:00 Discharge from PACU 04/11/23 14:00:00 I Outcomes Met? Yes Last Modified By: Magalys Wiggins RN 04/11/23 14:29:54 Post-Care Text: The patient demonstrates knowledge of the expected response to the operative or invasive procedure The patient's care is consistent with the individualized perioperative plan of care The patient's right to privacy is maintained The patient's value system, lifestyle, ethnicity, and culture are considered, respected, and incorporated into the perioperative plan of care The patient participates in decisions affecting his or her perioperative plan of care The patient is free from signs and symptoms of infection The patient has wound/tissue perfusion consistent with or improved from baseline levels established preoperatively The patient is at or returning to normothermia at the conclusion of the immediate postoperative period The patient's respiratory function is consistent with or improved from baseline levels established preoperatively The patient's cardiovascular status is consistent with or improved from baseline levels established preoperatively The patient's cardiovascular status is consistent with or improved from baseline levels established preoperatively The patient demonstrates and/or reports adequate pain control throughout the perioperative period The patient received appropriate medication(s), safely administered during the perioperative period Acuity Level PACU I FT Entry 1 Start Time 04/11/23 13:21:00 Stop Time 04/11/23 14:00:00 Acuity Level Acuity Level I Last Modified By: Magalys Wiggins RN 04/11/23 14:30:08 Finalized By: Magalys Wiggins RN Document Signatures Signed By: Magalys Wiggins RN 04/11/23 14:30 [facility] Main OR PACU II [facility] Main OR PACU II Record PACU Phase II Document Type FT Summary Primary Physician: Lauro Simon MD Finalized Date/Time: 04/11/23 15:52:51 Pt. Name: CONOR KAUFMANJOSELINE Art/Sex: 1960 Female Med Rec #: [id number] Physician: Lauro Simon MD Financial #: [id number] Pt. Type: A Room/Bed: [place] [address] Admit/Disch: 04/11/23 08:40:14 - Institution: Case Times PACU II FT Pre-Care Text: Identifies barriers to communication and implements measures to provide psychological support and determines knowledge level Develops individualized plan of care, and ensures continuity of care Maintains patient's dignity and privacy, and maintains patient confidentiality Identifies and reports philosophical, cultural, and spiritual beliefs and values Identifies individual values and wishes concerning care administers prescribed antibiotic therapy and immunizing agents as ordered, Evaluates postoperative tissue perfusion Implements thermoregulation measures, and monitors body temperature Evaluates postoperative respiratory status Evaluates postoperative cardiac status Evaluates postoperative neurological status Assesses pain control, collaborated in initiating patient-controlled analgesia and implements alternative methods of pain control Verifies allergies, administers prescribed medications and solutions, evaluates response to medications Entry 1 In PACU II 04/11/23 14:15:00 Discharge from PACU 04/11/23 15:30:00 II Outcomes Met? Yes Last Modified By: Rio Barraza RN 04/11/23 15:52:50 Post-Care Text: The patient demonstrates knowledge of the expected response to the operative or invasive procedure The patient's care is consistent with the individualized perioperative plan of care The patient's right to privacy is maintained The patient's value system, lifestyle, ethnicity, and culture are considered, respected, and incorporated into the perioperative plan of care The patient participates in decisions affecting his or her perioperative plan of care. The patient is free from signs and symptoms of infection The patient has wound/tissue perfusion consistent with or improved from baseline levels established preoperatively The patient is at or returning to normothermia at the conclusion of the immediate postoperative period The patient's respiratory function is consistent with or improved from baseline levels established preoperatively The patient's cardiovascular status is consistent with or improved from baseline levels established preoperatively The patient's neurological status is consistent with or improved from baseline levels established preoperatively The patient demonstrates and/or reports adequate pain control throughout the perioperative period The patient received appropriate medication(s), safely administered during the perioperative period Finalized By: Rio Barraza RN Document Signatures Signed By: Rio Barraza RN 04/11/23 15:52 [facility] Main OR Preoperative Recordo n 04-11-2023 Main OR Preoperative Record PreOp Document Type FT Summary Primary Physician: Lauro Simon MD Finalized Date/Time: 04/11/23 11:39:26 Pt. Name: EMELI KAUFMAN D.O.B./Sex: 1960 Female Med Rec #: [id number] Physician: Lauro Simon MD Financial #: [id number] Pt. Type: A Room/Bed: [place] [address] Admit/Disch: 04/11/23 08:40:14 - Institution: Case Times PreOp FT Pre-Care Text: Verifies consent for planned procedure, identifies individual values and wishes concerning care, includes family members in perioperative teaching Entry 1 Patient Times. In Pre Surgery 04/11/23 08:45:00 Out Pre Surgery 04/11/23 11:23:00 Outcomes Met? Yes Last Modified By: Teresa Minor RN 04/11/23 11:39:14 Post-Care Text: The patient participates in decisions affecting his or her perioperative plan of care Finalized By: Teresa Minor RN Document Signatures Signed By: Teresa Minor RN 04/11/23 11:39 Teresa Minor RN 04/11/23 11:39 [facility] Monitor [facility]ordon 04-11-2023 Monitor Record [id number]# 1.00CD:127 [facility] Monitor Record [id number]# 1.00CD:127 [facility] NM Lymphoscintigraphyon 03-18 NM Lymphoscintigraphy Exam Date/Time: 04/11/2023 10:20 EDT Reason for Exam: breast cancer Report IMPRESSION: ACTIVITY AT INJECTION SITES LEFT BREAST. CLINICAL HISTORY: breast cancer. COMMENT: The procedure was discussed with the patient. Using sterile technique, a total of 593 uCi of 99m Technetium Lymphoseek were injected subdermally at 4 periareolar sites in the left breast. At 15 minutes post radionuclide injection, there is activity at the injection sites. No definite sentinel lymph node activity is noted at 15 minutes. Ordering Provider: Lauro Simon FINAL REPORT Dictated: 04/11/2023 12:25 pm Tee Lobato M.D. Signed (Electronic Signature): 04/11/2023 12:25 pm Signed by: Tee Lobato M.D. Transcribed by: MEAGAN Technologist: JANNET Technical Comments Dose (mCi Tc99m Lymphoseek): 593 [facility] Outpatient Surgery Discharge Instructionon 04-11-2023 Outpatient Surgery Discharge Instruction [address] [address] Patient Discharge Instructions PERSON INFORMATION Name: EMELI KAUFMAN Date of : 1960 Current Date: 04/11/2023 13:32:38 PHYSICIANS Admitting Physician: Lauro Simon MD Discharge Diagnosis: EMELI KAUFMAN has been given the following list of follow-up instructions, prescriptions, and patient education materials: PATIENT FOLLOW-UP INFORMATION Diet: Regular Discharge Activity: Resume normal activities in 24 hours, Expect mild pain, Expect minimal amount of drainage and/or bleeding Discharge Restrictions: No driving for 24 hrs, Do not make important decisions for 24 hours, Do not drink alcoholic beverages for 24 hours Call Your Doctor For: Persistent or heavy bleeding, Temperature above 101.5 degrees, Redness, swelling, or pus at operative site, Severe pain at the operative site, Persistent vomiting Additional Instructions: Okay to remove wraps tomorrow, okay to remove gauze tomorrow. Do not remove skin glue. Okay to shower tomorrow. Do not submerge incision in water as in pool or tub for 2 weeks after surgery IF UNABLE TO CONTACT YOUR PHYSICIAN AND YOU FEEL IT IS AN EMERGENCY, GO TO THE NEAREST EMERGENCY ROOM OR CALL 911 ZANDRA Santana ANNETTE M, have received the attached patient education materials/instruction s and have verbalized understanding: May we do a follow up call? Yes No I was present when discharge instructions were given Patient Signature Date Clinican/Nurse Signature Date Follow up: With: Address: When: Lauro Simon [address] [place] [address], [place] [address], [address] [address] [phone] Business (1) Comments: Appointment has already been scheduled Type Location Start Finish State MA Needle Loc (FT) FT.MAMMOGRAM 04/11/2023 9:00 AM 04/11/2023 9:45 AM Confirmed NM Lymphoscintigraphy (FT) FT.NUCLEAR MED 04/11/2023 10:30 AM 04/11/2023 12:00 PM Confirmed GS Post Op 15 [facility] GS [place] 04/21/2023 8:40 AM 04/21/2023 9:00 AM Confirmed Pharmacy Information: You may receive a survey from [facility] asking you to rate your care experience. Your feedback is important and will help us understand what we do well and how we can improve the quality of care we provide to you, your loved ones and our community. It?s an honor to serve you. Thank you for choosing [facility] HERE ARE THE MEDICATION CHANGES THAT OCCURRED DURING YOUR HOSPITAL STAY New Medications [address], [place] [id number], [phone] acetaminophen-hydroco done ([place] 325 mg-5 mg oral tablet) 1 Tablets By Mouth every 6 hours as needed as needed for pain. Refills: 0. Medications to Continue with No Changes Other Medications ergocalciferol (Vitamin D 50,000 intl units (1.25 mg) oral capsule) 1 Capsules By Mouth every week. latanoprost ophthalmic (latanoprost Opth 0.005% Nita) 1 Drops Both eyes once a day (in the evening)., glaucoma sodium chloride (Sodium Chloride, Inhalation 0.9% inhalation solution) 1 dose Inhalation every day., bronchiectasis PATIENT EDUCATION INFORMATION Instructions: Lumpectomy, Care After This sheet gives you information about how to care for yourself after your procedure. Your health care provider may also give you more specific instructions. If you have problems or questions, contact your health care provider. What can I expect after the procedure? After the procedure, it is common to have: ? Breast swelling. ? Breast tenderness. ? Stiffness in your arm or shoulder. ? A change in the shape and feel of your breast. ? Scar tissue that feels hard to the touch in the area where the lump was removed. Follow these instructions at home: Medicines ? Take rtvo-dqs-cbwhavq and prescription medicines only as told by your health care provider. ? If you were prescribed an antibiotic medicine, take it as told by your health care provider. Do not stop taking the antibiotic even if you start to feel better. ? Ask your health care provider if the medicine prescribed to you: ? Requires you to avoid driving or using heavy machinery. ? Can cause constipation. You may need to take these actions to prevent or treat constipation: ? Drink enough fluid to keep your urine pale yellow. ? Take lsxy-oqh-kovpsjr or prescription medicines. ? Eat foods that are high in fiber, such as beans, whole grains, and fresh fruits and vegetables. ? Limit foods that are high in fat and processed sugars, such as fried or sweet foods. Incision care ? Follow instructio (more content not included)... [facility] Patient Education - Texton 0 04-11-2023 Patient Education - Text Obstetrics and Gynecology Lumpectomy, Care After This sheet gives you information about how to care for yourself after your procedure. Your health care provider may also give you more specific instructions. If you have problems or questions, contact your health care provider. What can I expect after the procedure? After the procedure, it is common to have: ? Breast swelling. ? Breast tenderness. ? Stiffness in your arm or shoulder. ? A change in the shape and feel of your breast. ? Scar tissue that feels hard to the touch in the area where the lump was removed. Follow these instructions at home: Medicines ? Take hxya-lpy-juqhqoz and prescription medicines only as told by your health care provider. ? If you were prescribed an antibiotic medicine, take it as told by your health care provider. Do not stop taking the antibiotic even if you start to feel better. ? Ask your health care provider if the medicine prescribed to you: ? Requires you to avoid driving or using heavy machinery. ? Can cause constipation. You may need to take these actions to prevent or treat constipation: ? Drink enough fluid to keep your urine pale yellow. ? Take kqtf-fna-ffhhdhe or prescription medicines. ? Eat foods that are high in fiber, such as beans, whole grains, and fresh fruits and vegetables. ? Limit foods that are high in fat and processed sugars, such as fried or sweet foods. Incision care ? Follow instructions from your health care provider about how to take care of your incision. Make sure you: ? Wash your hands with soap and water before and after you change your bandage (dressing). If soap and water are not available, use hand equipment service technician. ? Change your dressing as told by your health care provider. ? Leave stitches (sutures), skin glue, or adhesive strips in place. These skin closures may need to stay in place for 2 weeks or longer. If adhesive strip edges start to loosen and curl up, you may trim the loose edges. Do not remove adhesive strips completely unless your health care provider tells you to do that. ? Check your incision area every day for signs of infection. Check for: ? More redness, swelling, or pain. ? Fluid or blood. ? Warmth. ? Pus or a bad smell. ? Keep your dressing clean and dry. ? If you were sent home with a surgical drain in place, follow instructions from your health care provider about emptying it. Bathing ? Do not take baths, swim, or use a hot tub until your health care provider approves. ? Ask your health care provider if you may take showers. You may only be allowed to take sponge baths. Activity ? Rest as told by your health care provider. ? Avoid sitting for a long time without moving. Get up to take short walks every 1?2 hours. This is important to improve blood flow and breathing. Ask for help if you feel weak or unsteady. ? Return to your normal activities as told by your health care provider. Ask your health care provider what activities are safe for you. ? Be careful to avoid any activities that could cause an injury to your arm on the side of your surgery. ? Do not lift anything that is heavier than 10 lb (4.5 kg), or the limit that you are told, until your health care provider says that it is safe. Avoid lifting with the arm that is on the side of your surgery. ? Do not carry heavy objects on your shoulder on the side of your surgery. ? Do exercises to keep your shoulder and arm from getting stiff and swollen. Talk with your health care provider about which exercises are safe for you. General instructions ? Wear a supportive bra as told by your health care provider. ? Raise (elevate) your arm above the level of your heart while you are sitting or lying down. ? Do not wear tight jewelry on your arm, wrist, or fingers on the side of your surgery. ? Keep all follow-up visits as told by your health care provider. This is important. ? You may need to be screened for extra fluid around the lymph nodes and swelling in the breast and arm (lymphedema). Follow instructions from your health care provider about how often you should be checked. ? If you had any lymph nodes removed during your procedure, be sure to tell all of your health care providers. This is important information to share before you are involved in certain procedures, such as having blood tests or having your blood pressure taken. Contact a health care provider if: ? You develop a rash. ? You have a fever. ? Your pain medicine is not working. ? You have swelling, weakness, or numbness in your arm that does not improve after a few weeks. ? You have new swelling in your breast. ? You have any of these signs of infection: ? More redness, swelling, or pain in your incision area. ? Fluid or blood coming from your incision. ? Warmth coming from the incision area. ? Pus (more content not included)... [facility] RAD - Consent to Procedureon 04-11-2023 RAD - Consent to Procedure [id number]# 1.00CD:127 [facility] Consultation Noteon 04-06-20 Consultation Note [id number] .00CD:127 [facility] Consultation Noteon 03-31-20 Consultation Note [id number]#1. 00CD:127 [facility] Operative Reporton Operative Report [id number]#1. 00CD:127 [facility] RAD - CT Reporton 03-31-2023 [address] - [address] Report [id number] .00CD:127 [facility] RAD - MISCon 03-31-2023 RAD - MISC [id number] .00CD:127 [facility] RAD - MISCon 03-21-2023 RAD - MISC [id number] .00CD:127 [facility] Insurance Correspondenceon 0 03-15-2023 Insurance Correspondence [id number] .00CD:127 [facility] Consent for Treatmenton 02-14 Consent for Treatment [id number] .00CD:127 [facility] Heart and Vascular Office/Cl inic Noteon 03-01-2023 Heart and Vascular Office/Clinic Note Chief Complaint Moderate bibsilar pulm B/L pnumonia History of Present Illness This is 62-year-old female with past medical history significant for bronchiectasis diagnosed in 2011 at that time she was treated for MAC infection for couple years, she is followed by Dr. Fajardo. She was recently diagnosed with a lump on her breast and early stage breast cancer she is scheduled for surgery and chest x-ray showed bibasilar infiltrates suggestive of pneumonia. She does report that she had increase in her cough and sputum production around that time. She was prescribed Levaquin by her primary care physician. Her canal boat operator apparently out of office and was referred to pulmonary clinic for preop evaluation. She has chronic cough and productive sputum at baseline she uses hypertonic saline nebulizer treatment, she gets flareup of her bronchiectasis about 3 times a year. She was told before that her x-ray is always abnormal. She has good functional status and no significant dyspnea on exertion Review of Systems PHQ Score Initial Depression Screen Score: 0 12 point system review was done and negative except what mentioned in HPI Physical Exam Vitals & Measurements HR: 77(Peripheral) BP: 136/78 SpO2: 97% HT: 65 in HT: 165 cm WT: 55.8 kg WT: 122.76 lb BMI: 20.5 General: no distress Skin: warm? , dry? Head: no? trauma, normocephalic? Neck: Trachea midline? , no? adenopathy, no? tenderness Eye: normal? conjunctiva, sclera clear? ENMT: oral mucosa moist? Cardiovascular: regular? rate and rhythm, normal? Respiratory: Lungs CTA? ,respirations non labored? Chest wall: no? deformity. Gastrointestinal: soft? , non distended? , no? tenderness, no? guarding. Extremities: no? deformity, no? trauma Neurological: nonfocal Assessment/Plan 1. Bronchiectasis (J47.9: Bronchiectasis, uncomplicated) 2. Pneumonia (J18.9: Pneumonia, unspecified organism) 3. Preop pulmonary/respiratory exam (Z01.811: Encounter for preprocedural respiratory examination) Her symptoms and x-ray suggestive of bronchiectasis exacerbation and likely pneumonia, agree with the management with Levaquin and she seems to be improving on this therapy. Regarding her preop evaluation she has chronic bronchiectasis with good functional status at baseline. She will be at mild to moderate risk for perioperative pulmonary complication. Okay to proceed with the surgery considering the improvement in her clinical symptoms. The changes on the chest x-ray is likely chronic with some degree of acute worsening from the pneumonia, less likely to be related to her breast cancer or metastasis. Will defer the decision of ordering CT chest or staging to her surgeon. Per patient report it is small size and felt to be early stage. She will continue to follow-up with her regular canal boat operator Dr Fajardo Follow-up No qualifying data available Problem List/Past Medical History Ongoing Abnormal mammogram of left breast BMI 22.0-22.9, adult Breast cancer, left Multiple sclerosis Personal history of bronchiectasis Historical Bronchiectasis Procedure/Surgical History Bronchoscopy (06/16/2021), Biopsy of breast, section. Medications latanoprost Opth 0.005% Nita, 1 drop(s), Eye-Both, qPM Sodium Chloride, Inhalation 0.9% inhalation solution, 1 dose, Inhalation, Daily Vitamin D 50,000 intl units (1.25 mg) oral capsule, [address]874 International_Unit= 1 cap(s), Oral, qWeek Allergies No Known Medication Allergies Social History Alcohol - Denies Alcohol Use, 02/22/2023 Substance Abuse - Denies Substance Abuse, 02/22/2023 Tobacco - Denies Tobacco Use, 02/22/2023 Never (less than 100 in lifetime) Tobacco Use:. Never Smokeless Tobacco Use:., 03/01/2023 Immunizations Vaccine Date Status Comments influenza virus vaccine, inactivated 04/15/2022 Recorded influenza virus vaccine, inactivated 05/02/2021 Recorded SARS-CoV-2 (COVID-19) mRNA BNT-162b2 vax 10/31/2020 Recorded 2023-01-30: TPV60 SARS-CoV-2 (COVID-19) mRNA BNT-162b2 vax 10/10/2020 Recorded 2023-01-30: TPV60 influenza virus vaccine, inactivated 05/02/2019 Recorded influenza virus vaccine, inactivated 05/04/2018 Recorded diphtheria/pertussis, acel/tetanus adult 11/27/2017 Recorded influenza virus vaccine, inactivated 05/02/2017 Recorded influenza, unspecified formulation 05/09/2016 Recorded influenza virus vaccine, inactivated 05/07/2015 Recorded pneumococcal 13-valent vaccine 07/14/2014 Recorded influenza virus vaccine, inactivated 07/14/2014 Recorded [facility] Comment on above: Result Comment: Elec tronically Signed By: Manuel RICE, Mehdi Vitale\.br\Date and Time Signed: 03/01/23 15:50 EDT Physician Orderon 03-01-2023 Physician Order [id number]# 1.00CD:127 [facility] CHEMISTRYOrdered By: SYSTEM SYSTEM on 02-22-2023 Anion gap [Moles/Vol] 11 mmol/L Normal 6 - 16 mEq/L F [facility] Remisol Chloride [Moles/Vol] 105 mmol/L Normal 101 - 1 11 mmol/L [facility] Remisol CO2 [Moles/Vol] 26 mmol/L Normal 21 - 31 mmol/L [facility] Remisol Creatinine [Mass/Vol] 0.7 mg/dL Normal 0.5 - 1.3 mg/dL [facility] Remisol GFR/1.73 sq M.predicted among non-blacks MDRD (S/P/Bld) [Vol rate/Area] 97 mL/min/1.73 m2 Normal >=59mL/min/1 .73 m2 [facility] Chem S Glucose [Mass/Vol] 93 mg/dL Normal 55 - 199 mg/dL FT Remisol Potassium [Moles/Vol] 4.1 mmol/L Normal 3.5 - 5.3 mmol/L FT Remisol Sodium [Moles/Vol] 138 mmol/L Normal 135 - 145 mmol/L FT [facility] Urea nitrogen [Mass/Vol] 21 mg/dL Normal 5 - 21 mg/dL FT [facility] HEMATOLOGYOrdered By: Rama Davenport on 02-22-2023 Erythrocyte distribution width (RBC) [Ratio] 15.4 % High 10.9 - 14.2 % FT HemeAutoSS Hematocrit (Bld) [Volume fraction] 36.5 % Normal 34.0 - 46.0 % FT HemeAutoSS Hemoglobin (Bld) [Mass/Vol] 12.4 g/dL Normal 12.0 - 16.0 gm/dL FT HemeAutoSS MCH (RBC) [Entitic mass] 29.5 pg Normal 27.0 - 34.0 pg FT HemeAutoSS MCHC (RBC) [Mass/Vol] 34.0 g/dL Normal 31.4 - 36.0 gm/dL FT HemeAutoSS MCV (RBC) [Entitic vol] 86.8 fL Normal 80.0 - 100.0 fL FT HemeAutoSS Platelet mean volume (Bld) [Entitic vol] 7.1 fL Normal 6.4 - 10.8 fL FT HemeAutoSS Platelets (Bld) [#/Vol] 275.0 E9/L Normal 150. 0 - 500.0 E9/L FT HemeAutoSS RBC (Bld) [#/Vol] 4.2 E12/L Low 4.3 - 5.9 E12/L FT HemeAutoSS WBC corrected for nucl RBC Auto (Bld) [#/Vol] 6.6 E9/L Normal 4.0 - 11.0 E9/L [facility] HemeAutoSS CULTURE SPUTUMon 12-10-2022 CULTURE SPUTUM Culture Observations : NORMAL RESPIRATORY LI. Normal [facility] Comment on above: Performed By: #### C BC #### [facility] [address] [address] [address] Ildefonso Finn SPUTUM GRAM STAINon 12-11-19 COMMENTS Normal [facility] Comment on above: Performed By: #### S PUTGS #### [facility] [address] [place] [address] Dr. Ildefonso Finn DIPHTHEROIDS Normal [facility] Comment on above: Performed By: #### S PUTGS #### [facility] [address] [place] [address] Dr. Ildefonso Finn EPITHELIALS <25 Normal [facility] Comment on above: Performed By: #### S PUTGS #### [facility] [address] [address] [address] Ildefonso Finn FUNGAL ELEMENTS Normal [facility] Comment on above: Performed By: #### S PUTGS #### [facility] [address] [place] [address] Dr. Ildefonso Finn GRAM NEG BACILLI [facility] Comment on above: Performed By: #### S PUTGS #### [facility] [address] [place] [address] Dr. Ildefonso Finn GRAM NEG DIPPLOCOCCI [facility] Comment on above: Performed By: #### S PUTGS #### [facility] [address] [place] [address] Dr. Ildefonso Finn GRAM POS BACILLI Normal [facility] Comment on above: Performed By: #### S PUTGS #### [facility] [address] [place] [address] Dr. Ildefonso Finn GRAM POSITIVE COCCI MODERATE Normal [facility] Comment on above: Performed By: #### S PUTGS #### [facility] [address] [place] [address] Dr. Ildefonso Finn WBC (Bld) [#/Vol] 10*3/uL Normal [facility] Comment on above: Performed By: #### S PUTGS #### [facility] [address] [place] [address] Dr. Ildefonso Finn Covid-19 PCR (CVDTB)on SARS-CoV-2 (COVID-19) RNA KARLA+probe Ql (Unsp spec) Not detected Normal NOT DETECTED [facility] Comment on above: Result Comment: When diagnostic testing is negative, the possibility of a false negative should be considered in the context of a patient's recent exposures and the presence of clinical signs and symptoms consistent with SARS-CoV-2. This test is not yet approved or cleared by the [place] FDA. When there are no FDA-approved or cleared tests available, and other criteria are met, FDA can make tests available under an emergency access mechanism called an Emergency Use Authorization (EUA). The EUA for this test is supported by the [place] of Health and Human Service's declaration that circumstances exist to justify the emergency use of in vitro diagnostics for the detection and/or diagnosis of the virus that causes COVID-19. This EUA will remain in effect for the duration of the COVID-19 declaration justifying emergency of IVDs, unless it is terminated or revoked by the FDA (after which the test may no longer be used). Performed By: #### C VDTB #### [facility] [address] [place] [address] Dr. Ildefonso Finn INFLUENZA A AND B AGon 09-15 [facility] BEL[facility] Normal [facility] Comment on above: Result Comment: Nega tive for Flu A protein angiten. Infection due to Flu A cannot be ruled out. Flu A angiten in the sample may be below the detection limit of the test. Performed By: #### I NFLUAB #### [facility] [address] [place] [address] Dr. Ildefonso Finn [facility] SEE BELOW Normal [facility] Comment on above: Result Comment: Nega tive for Flu B protein antigen. Infection due to Flu B cannot be ruled out. Flu B antigen in the sample may be below the detection limit of the test. Performed By: #### I NFLUAB #### [facility] [address] [place] [address] Dr. Ildefonso Finn INFLUENZA A AG Negative Normal NEGATIVE SEE COMMENT [facility] Comment on above: Performed By: #### I NFLUAB #### [facility] [address] [place] [address] Dr. Ildefonso Finn INFLUENZA B AG Negative Normal NEGATIVE SEE COMMENT [facility] Comment on above: Performed By: #### I NFLUAB #### [facility] [address] [place] [address] Dr. Ildefonso Finn OCC BLD IMMUNO SCREENon 06-17 OCCULT BLOOD Negative Normal NEGATIVE [facility] Comment on above: Performed By: #### O BSCRN #### [facility] [address] [place] [address] Dr. Ildefonso Finn CBC AUTO DIFFon 07-02-2022 BASO # 0.0 103/ul Normal 0.0-0.1 [facility] Comment on above: Performed By: #### C BC #### [facility] [address] [place] [address] Dr. Ildefonso Finn Basophils/100 WBC (Bld) 0.8 % Normal 0.2-2.0 [facility] Comment on above: Performed By: #### C BC #### [facility] [address] [place] [address] Dr. Ildefonso Finn EO # 0.1 103/ul Normal 0.0-0.7 [facility] Comment on above: Performed By: #### C BC #### [facility] [address] [place] [address] Dr. Ildefonso Finn Eosinophils/100 WBC (Bld) 1.1 % Normal 0.9-7.0 [facility] Comment on above: Performed By: #### C BC #### [facility] [address] [place] [address] Dr. Ildefonso Finn Erythrocyte distribution width (RBC) [Ratio] 13.4 % Normal 11.0-15.0 [facility] Comment on above: Performed By: #### C BC #### [facility] [address] [place] [address] Dr. Ildefonso Finn Hematocrit (Bld) [Volume fraction] 39.5 % Normal 36.0-48.0 [facility] Comment on above: Performed By: #### C BC #### [facility] [address] [place] [address] Dr. Ildefonso Finn Hemoglobin (Bld) [Mass/Vol] 12.9 g/dL Normal 12.0-16.0 [facility] Comment on above: Performed By: #### C BC #### [facility] [address] [place] [address] Dr. Ildefonso Finn IG # 0.01 10e3/ul Normal 0.00-0.03 [facility] Comment on above: Performed By: #### C BC #### [facility] [address] [place] [address] Dr. Ildefonso Finn IG % 0.2 % Normal 0.0-0.5 [facility] Comment on above: Performed By: #### C BC #### [facility] [address] [place] [address] Dr. Ildefonso Finn LYMPH # 1.1 103/ul Critically low 1.2-3.8 [facility] Comment on above: Performed By: #### C BC #### [facility] [address] [place] [address] Dr. Ildefonso Finn Lymphocytes/100 WBC (Bld) 20.3 % Critically low 20.5-60.0 [facility] Comment on above: Performed By: #### C BC #### [facility] [address] [place] [address] Dr. Ildefonso Finn MANUAL DIFF REQ NO Normal [facility] Comment on above: Performed By: #### C BC #### [facility] [address] [place] [address] Dr. Ildefonso Finn MCH (RBC) [Entitic mass] 29.3 pg Normal 26.7-34.0 [facility] Comment on above: Performed By: #### C BC #### [facility] [address] [place] [address] Dr. Ildefonso Finn MCHC (RBC) [Mass/Vol] 32.7 g/dL Normal 29.9-35.2 [facility] Comment on above: Performed By: #### C BC #### [facility] [address] [place] [address] Dr. Ildefonso Finn MCV (RBC) [Entitic vol] 89.8 fL Normal 81.0-99.0 [facility] Comment on above: Performed By: #### C BC #### [facility] [address] [place] [address] Dr. Ildefonso Finn MONO # 0.5 103/ul Normal 0.3-0.8 [facility] Comment on above: Performed By: #### C BC #### [facility] [address] [place] [address] Dr. Ildefonso Finn Monocytes/100 WBC (Bld) 10.0 % Normal 1.7-12.0 [facility] Comment on above: Performed By: #### C BC #### [facility] [address] [place] [address] Dr. Ildefonso Finn NEUT # 3.6 103/ul Normal 1.4-6.5 [facility] Comment on above: Performed By: #### C BC #### [facility] [address] [place] [address] Dr. Ildefonso Finn Neutrophils/100 WBC (Bld) 67.6 % Normal 43.0-75.0 [facility] Comment on above: Performed By: #### C BC #### [facility] [address] [place] [address] Dr. Ildefonso Finn Platelet mean volume (Bld) [Entitic vol] 9.0 fL Critically low 9.5-13.5 [facility] Comment on above: Performed By: #### C BC #### [facility] [address] [place] [address] Dr. Ildefonso Finn PLT 290 103/ul Normal 150-450 [facility] Comment on above: Performed By: #### C BC #### [facility] [address] [place] [address] Dr. Ildefonso Finn RBC 4.40 106/ul Normal 4.20-5.40 [facility] Comment on above: Performed By: #### C BC #### [facility] [address] [place] [address] Dr. Ildefonso Finn WBC 5.3 103/ul Normal 4.0-11.0 [facility] Comment on above: Performed By: #### C BC #### [facility] [address] [address] [address] Ildefonso Finn FREE THYROXINE INDEX T7on FTI 2.56 Normal 1.30-4.50 [facility] Comment on above: Performed By: #### C BC #### [facility] [address] [place] [address] Dr. Ildefonso Finn T3U 32.0 % Normal 30.0-39.0 [facility] Comment on above: Performed By: #### C BC #### [facility] [address] [address] [address] Ildefonso Finn T4 [Mass/Vol] 8.00 ug/dL Normal 4.80-13.90 [facility] Comment on above: Performed By: #### C BC #### [facility] [address] [place] [address] Dr. Ildefonso Finn GLYCOHEMOGLOBIN A1Con 2021 ADA RECOMMENDATION SEE BELOW Normal [facility] Comment on above: Result Comment: ADA RECOMMENDED LIMIT 4.0 - 6.0 ADA THERAPEUTIC TARGET < 7.0 ACTION SUGGESTED > 7.0 Performed By: #### A 1C #### [facility] [address] [place] [address] Dr. Ildefonso Finn Glucose [Mass/Vol] 114 mg/dL Normal [facility] Comment on above: Performed By: #### A 1C #### [facility] [address] [place] [address] Dr. Ildefonso Finn HbA1c (Bld) [Mass fraction] 5.6 % Normal 4.5-6.2 [facility] Comment on above: Performed By: #### A 1C #### [facility] [address] [place] [address] Dr. Ildefonso Finn IRONon 07-02-2022 Iron [Mass/Vol] 87.0 ug/dL Normal 50.0-170.0 [facility] Comment on above: Performed By: #### I PRISCILLA #### [facility] [address] [place] [address] Dr. Ildefonso Finn LIPID PROFILEon 07-02-2022 CHOL-HDL RATIO NORM SEE BELOW Normal [facility] Comment on above: Result Comment: 3.3 - 4.4 LOW RISK 4.4 - 7.1 AVERAGE RISK 7.1 - 11.0 MODERATE RISK >11.0 HIGH RISK Performed By: #### C BC #### [facility] [address] [place], [place] [address] Dr. Ildefonso Finn Cholesterol [Mass/Vol] 173 mg/dL Normal <=200 Th [facility] Comment on above: Performed By: #### C BC #### [facility] [address] [address] [address] Ildefonso Finn Cholesterol in HDL [Mass/Vol] 74 mg/dL Critically high 40-60 [facility] Comment on above: Performed By: #### C BC #### [facility] [address] [address] [address] Ildefonso Finn Cholesterol in LDL [Mass/Vol] 90.6 mg/dL Normal [facility] Comment on above: Performed By: #### C BC #### [facility] [address] [address] [address] Ildefonso Finn Cholesterol.total/Tracee sterol in HDL [Mass ratio] 2.3 {ratio} Normal [facility] Comment on above: Performed By: #### C BC #### [facility] [address] [address] [address] Ildefonso Finn HDL NORMAL > or = 60 mg/dl - LO W CARDIOVASCULAR RISK <40 mg/dl - HIGH CARDIOVASCULAR RISK Normal [facility] Comment on above: Performed By: #### C BC #### [facility] [address] [address] [address] Ildefonso Finn LDL CALC NORMAL SEE BELOW Normal [facility] Comment on above: Result Comment: <100 mg/dl OPTIMAL 100 - 129 mg/dl NEAR OR ABOVE OPTIMAL 130 - 159 mg/dl BORDERLINE HIGH 160 - 189 mg/dl HIGH >190 mg/dl VERY HIGH Performed By: #### C BC #### [facility] [address] [address] [address] Ildefonso Finn Triglyceride [Mass/Vol] 42 mg/dL Normal <=150 T [facility] Comment on above: Performed By: #### C BC #### [facility] [address] [place] [address] Dr. Ildefonso Finn VLDL CALC 8.4 mg/dL Normal [facility] Comment on above: Performed By: #### C BC #### [facility] [address] [place] [address] Dr. Ildefonso Finn PROF 14(COMP METB)on 022 Albumin [Mass/Vol] 3.6 g/dL Normal 3.4-5.0 [facility] Comment on above: Performed By: #### C BC #### [facility] [address] [place] [address] Dr. Ildefonso Finn Albumin/Globulin [Mass ratio] 0.8 {ratio} Normal [facility] Comment on above: Performed By: #### C BC #### [facility] [address] [place] [address] Dr. Ildefonso Finn ALP [Catalytic activity/Vol] 74 U/L Normal 46-116 [facility] Comment on above: Performed By: #### C BC #### [facility] [address] [place] [address] Dr. Ildefonso Finn ALT [Catalytic activity/Vol] 15 U/L Normal 14-59 [facility] Comment on above: Performed By: #### C BC #### [facility] [address] [place] [address] Dr. Ildefonso Finn Anion gap [Moles/Vol] 7.8 mmol/L Normal [facility] Comment on above: Performed By: #### C BC #### [facility] [address] [place] [address] Dr. Ildefonso Finn AST [Catalytic activity/Vol] 21 U/L Normal 15-37 [facility] Comment on above: Performed By: #### C BC #### [facility] [address] [place] [address] Dr. Ildefonso Finn Bilirubin [Mass/Vol] 0.4 mg/dL Normal 0.2-1.0 [facility] Comment on above: Performed By: #### C BC #### [facility] [address] [place] [address] Dr. Ildefonso Finn Calcium [Mass/Vol] 9.0 mg/dL Normal 8.5-10.1 [facility] Comment on above: Performed By: #### C BC #### [facility] [address] [place] [address] Dr. Ildefonso Finn Chloride [Moles/Vol] 103 mmol/L Normal 98-107 [facility] Comment on above: Performed By: #### C BC #### [facility] [address] [place] [address] Dr. Ildefonso Finn CO2 [Moles/Vol] 30.5 mmol/L Normal 21.0-32.0 [facility] Comment on above: Performed By: #### C BC #### [facility] [address] [place] [address] Dr. Ildefonso Finn Creatinine [Mass/Vol] 0.70 mg/dL Normal 0.55-1.02 [facility] Comment on above: Performed By: #### C BC #### [facility] [address] [place] [address] Dr. Ildefonso Finn EGFR-AF [place] >60 Normal >=60 [facility] Comment on above: Performed By: #### C BC #### [facility] [address] [place] [address] Dr. Ildefonso Finn EGFR-NON AF [place] >60 Normal >=60 [facility] Comment on above: Performed By: #### C BC #### [facility] [address] [place] [address] Dr. Ildefonso Finn Globulin (S) [Mass/Vol] 4.5 g/dL Normal [facility] Comment on above: Performed By: #### C BC #### [facility] [address] [place] [address] Dr. Ildefonso Finn Glucose [Mass/Vol] 106 mg/dL Normal 74-106 [facility] Comment on above: Performed By: #### C BC #### [facility] [address] [place] [address] Dr. Ildefonso Finn Potassium [Moles/Vol] 4.3 mmol/L Normal 3.5-5.1 [facility] Comment on above: Performed By: #### C BC #### [facility] [address] [address] [address] Ildefonso Finn Protein [Mass/Vol] 8.1 g/dL Normal 6.4-8.2 [facility] Comment on above: Performed By: #### C BC #### [facility] [address] [address] [address] Ildefonso Finn Sodium [Moles/Vol] 137 mmol/L Normal 136-145 [facility] Comment on above: Performed By: #### C BC #### [facility] [address] [place] [address] Dr. Ildefonso Finn Urea nitrogen [Mass/Vol] 15.0 mg/dL Normal 7.0-18.0 [facility] Comment on above: Performed By: #### C BC #### [facility] [address] [place] [address] Dr. Ildefonso Finn Urea nitrogen/Creatinine [Mass ratio] 21.4 mg/mg Normal [facility] Comment on above: Performed By: #### C BC #### [facility] [address] [place] [address] Dr. Ildefonso Finn TSHon 07-02-2022 TSH 2.511 uIU/mL Normal 0.358-3.740 [facility] Comment on above: Performed By: #### C BC #### [facility] [address] [place] [address] Dr. Ildefonso Finn CULTURE SPUTUMon 04-16-2022 CULTURE SPUTUM Culture Observations : H. parainfluenzae; beta lactamase negative Isolate 1 Haemophilus parainfluenzae Normal [facility] Comment on above: Performed By: #### S PUTCX #### [facility] [address] [place] [address] Dr. Ildefonso Finn SPUTUM GRAM STAINon 04-16-20 COMMENTS Normal [facility] Comment on above: Performed By: #### S PUTGS #### [facility] [address] [address] [address] Ildefonso Finn DIPHTHEROIDS Normal [facility] Comment on above: Performed By: #### S PUTGS #### [facility] [address] [address] [address] Ildefonso Finn EPITHELIALS <25 Normal [facility] Comment on above: Performed By: #### S PUTGS #### [facility] [address] [address] [address] Ildefonso Finn FUNGAL ELEMENTS Normal [facility] Comment on above: Performed By: #### S PUTGS #### [facility] [address] [address] [address] Ildefonso Finn GRAM NEG BACILLI Normal [facility] Comment on above: Performed By: #### S PUTGS #### [facility] [address] [place] [address] Dr. Ildefonso INGRAM NEG DIPPLOCOCCI MODERATE Normal [facility] Comment on above: Performed By: #### S PUTGS #### [facility] [address] [place] [address] Dr. Ildefonso Finn GRAM POS BACILLI Normal [facility] Comment on above: Performed By: #### S PUTGS #### [facility] [address] [address] [address] Ildefonso Finn GRAM POSITIVE COCCI FEW Normal The [facility] Comment on above: Performed By: #### S PUTGS #### [facility] [address] [place] [address] Dr. Ildefonso Finn WBC (Bld) [#/Vol] 10*3/uL Normal [facility] Comment on above: Performed By: #### S PUTGS #### [facility] [address] [address] [address] Ildefonso Finn Covid-19 PCR (CVDTB)on SARS-CoV-2 (COVID-19) RNA KARLA+probe Ql (Unsp spec) Detected Critically abnormal NOT DETECTED [facility] Comment on above: Result Comment: This test is not yet approved or cleared by the [place] FDA. When there are no FDA-approved or cleared tests available, and other criteria are met, FDA can make tests available under an emergency access mechanism called an Emergency Use Authorization (EUA). The EUA for this test is supported by the [place] of Health and Human Service's (HHS's) declaration that circumstances exist to justify the emergency use of in vitro diagnostics for the detection and/or diagnosis of the virus that causes COVID-19. This EUA will remain in effect (meaning this test can be used) for the duration of the COVID-19 declaration justifying emergency of IVDs, unless it is terminated or revoked by FDA (after which the test may no longer be used). Performed By: #### C [facility] #### [facility] [address] [place] [address] Dr. Ildefonso Finn Screening Mammogram, [facility] 12-29-2021 Screening Mammogram, Bilateral CLINICAL HISTORY: Screening Mammogram COMPARISON: 2020, 2020 2018. TECHNIQUE: 2D and 3D mammogram imaging of both breasts was performed. RESULT: DENSITY: Heterogeneously dense, which may obscure small masses. There is no suspicious mass, asymmetry, architectural distortion, or calcification. No significant change since the prior mammograms. IMPRESSION: BIRADS 1 : NEGATIVE, NORMAL INTERVAL FOLLOW UP FOLLOW UP: 12 months DENSITY: Heterogeneously dense MAMMOGRAPHY IS VERY IMPORTANT TO YOUR HEALTH. THE CURRENT [place] [employer] OF [employer] AND [employer]WORK GUIDELINES RECOMMENDS ANNUAL MAMMOGRAPHY BEGINNING AT AGE 38 THIS FACILITY USES A REMINDER SYSTEM TO ENSURE ALL PATIENTS RECEIVE REMINDER NOTIFICATIONS AT THE APPROPRIATE TIME BASED ON THE RECOMMENDATIONS OF THIS EXAM. 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 Accredited by the ACR and FDA. Report reported and signed by ESTEFANIA RUBIN on 12/31/2021 1312 Normal [facility] [employer] Vital Signs Date Time Vital Sign Value Performing Clinician Facility 02-26-2024 14:36-0400 Diastolic blood pressure 96 mm[Hg] Lauro Simon [facility] [place] 02-26-2024 14:36-0400 Heart rate 90 /min Lauro Simon [facility] [place] 02-26-2024 14:36-0400 Systolic blood pressure 145 mm[Hg] Lauro Mourany [facility] [place] 02-20-2024 12:42-0400 Body height 165.1 cm Chris Baum MD Work Phone: [facility] 02-20-2024 12:42-0400 Body mass index (BMI) [Ratio] 21.63 kg/m2 Chris Baum MD Work Phone: [facility] 02-20-2024 12:42-0400 Body weight 58.97 kg Chris Baum MD Work Phone: [facility] 02-20-2024 12:42-0400 Diastolic blood pressure 81 mm[Hg] Chris Baum MD Work Phone: [facility] 02-20-2024 12:42-0400 Heart rate 83 /min Chris Baum MD Work Phone: [facility] 02-20-2024 12:42-0400 Systolic blood pressure 133 mm[Hg] Chris Baum MD Work Phone: [facility] 12-04-2023 14:31-0400 Body temperature 98.42 [degF] Muna Amaro [facility] 12-04-2023 14:31-0400 Diastolic blood pressure 72 mm[Hg] Muna Amaro [facility] 12-04-2023 14:31-0400 Heart rate 97 /min Muna Amaro [facility] 12-04-2023 14:31-0400 Mean blood pressure 86 mm[Hg] Muna Amaro [facility] 12-04-2023 14:31-0400 Respiratory rate 16 /min Muna Amaro [facility] 12-04-2023 14:31-0400 SaO2% (BldA) [Mass fraction] 95 % Muna Amaro [facility] 12-04-2023 14:31-0400 Systolic blood pressure 113 mm[Hg] Muna Amaro [facility] 11-06-2023 15:13-0400 Blood Pressure Location Lauro Simon [facility] [place] 11-06-2023 15:13-0400 Diastolic blood pressure 90 mm[Hg] Lauro Simon [facility] [place] 11-06-2023 15:13-0400 Heart rate 85 /min Lauor Simon [facility] [place] 11-06-2023 15:13-0400 Systolic blood pressure 137 mm[Hg] Lauro Simon [facility] 09-04-2023 14:44-0500 Body temperature 97.34 [degF] Mhd Al-Marrawi [facility] 09-04-2023 14:44-0500 Diastolic blood pressure 64 mm[Hg] Mhd Al-Marrawi [facility] 09-04-2023 14:44-0500 Heart rate 91 /min Mhd Al-Marrawi [facility] 09-04-2023 14:44-0500 Mean blood pressure 86 mm[Hg] Mhd Al-Marrawi [facility] 09-04-2023 14:44-0500 Respiratory rate 18 /min Mhd Al-Marrawi [facility] 09-04-2023 14:44-0500 SaO2% (BldA) [Mass fraction] 99 % Mhd Al-Marrawi [facility] 09-04-2023 14:44-0500 Systolic blood pressure 130 mm[Hg] Mhd Al-Marrawi [facility] 08-07-2023 15:51-0500 Diastolic blood pressure 78 mm[Hg] Lauro Simon [facility] [place] 08-07-2023 15:51-0500 Heart rate 80 /min Lauro Simon [facility] [place] 08-07-2023 15:51-0500 Systolic blood pressure 128 mm[Hg] Lauro Simon [facility] [place] 05-22-2023 14:00-0500 Blood Pressure Location Mhd Al-Marrawi [facility] 05-22-2023 14:00-0500 Body temperature 97.88 [degF] Mhd Al-Marrawi [facility] 05-22-2023 14:00-0500 Diastolic blood pressure 77 mm[Hg] Mhd Al-Marrawi [facility] 05-22-2023 14:00-0500 Heart rate 86 /min Mhd Al-Marrawi [facility] 05-22-2023 14:00-0500 Mean blood pressure 94 mm[Hg] Mhd Al-Marrawi [facility] 05-22-2023 14:00-0500 Respiratory rate 16 /min Mhd Al-Marrawi [facility] 05-22-2023 14:00-0500 SaO2% (BldA) [Mass fraction] 98 % Mhd Al-Marrawi [facility] 05-22-2023 14:00-0500 Systolic blood pressure 129 mm[Hg] Mhd Al-Marrawi [facility] 05-01-2023 09:00-0400 Blood Pressure Location Mhd Al-Marrawi [facility] 05-01-2023 09:00-0400 Body temperature 97.7 [degF] Mhd Al-Marrawi [facility] 05-01-2023 09:00-0400 Diastolic blood pressure 71 mm[Hg] d Al-Marrawi [facility] 05-01-2023 09:00-0400 Heart rate 86 /min d Al-Marrawi [facility] 05-01-2023 09:00-0400 Mean blood pressure 87 mm[Hg] d Al-Marrawi [facility] 05-01-2023 09:00-0400 Respiratory rate 18 /min d Al-Marrawi [facility] 05-01-2023 09:00-0400 SaO2% (BldA) [Mass fraction] 95 % d Al-Marrawi [facility] 05-01-2023 09:00-0400 Systolic blood pressure 120 mm[Hg] d Al-Marrawi [facility] 03-01-2023 10:51-0400 Blood Pressure Location Bashar Palmyra [facility] 03-01-2023 10:51-0400 Diastolic blood pressure 78 mm[Hg] Bashar [place] [facility] 03-01-2023 10:51-0400 Heart rate 77 /min Bashar [place] [facility] 03-01-2023 10:51-0400 SaO2% (BldA) [Mass fraction] 97 % Bashar [place] [facility] 03-01-2023 10:51-0400 Systolic blood pressure 136 mm[Hg] Bashar Palmyra [facility] 02-22-2023 12:31-0400 Blood Pressure Location Lauro Ugartebradfordy [facility] 02-22-2023 12:31-0400 Diastolic blood pressure 84 mm[Hg] Lauro Mourany [facility] 02-22-2023 12:31-0400 Systolic blood pressure 127 mm[Hg] Lauro Mourany [facility] 02-22-2023 12:30-0400 Blood Pressure Location Lauro Mourany [facility] 02-22-2023 12:30-0400 Body temperature 98.06 [degF] Lauro Mourany [facility] 02-22-2023 12:30-0400 Diastolic blood pressure 79 mm[Hg] Lauro Mourany [facility] 02-22-2023 12:30-0400 Heart rate 87 /min Lauro Mourany [facility] 02-22-2023 12:30-0400 Respiratory rate 16 /min Lauro Ugarteurany [facility] 02-22-2023 12:30-0400 SaO2% (BldA) [Mass fraction] 96 % Lauro Moratayay [facility] 02-22-2023 12:30-0400 Systolic blood pressure 136 mm[Hg] Lauro Mourany [facility] Encounters Encounter Date Encounter Type Care Provider Facility Start: 05-27-2024 ambulatory Lauro Wick y:[facility] Start: 03-01-2024 End: 03-01-2024 ambulatory MICHAEL BUCKLEY Not Available Start: 02-26-2024 End: 02-26-2024 ambulatory Lauro Simon Facility:[facility] Start: 02-26-2024 End: 02-26-2024 Patient encounter procedure Lauro Simon [facility] [place] Start: 02-20-2024 End: 02-20-2024 ambulatory SELF Facility:[facility] Start: 02-20-2024 End: 02-20-2024 Patient encounter procedure Chris Baum MD Work Phone: [facility] Comment on above: Multiple sclerosis ( HCC) (Primary Dx) Start: 12-04-2023 End: 12-04-2023 ambulatory Muna Amaro Facility:[facility] Start: 12-04-2023 End: 12-04-2023 Patient encounter procedure Muna Amaro [facility] Start: 11-20-2023 End: 11-20-2023 ambulatory Mhd Yaser Al-Marrawi Facility:[facility] Start: 11-20-2023 End: 11-20-2023 Patient encounter procedure Mhd Yaser Al-Marrawi [facility] Start: 11-07-2023 End: 11-08-2023 ambulatory ALANA MENDEZ [facility] Start: 11-06-2023 End: 11-06-2023 ambulatory Lauro Simon Facility:[facility] Start: 11-06-2023 End: 11-06-2023 Patient encounter procedure Lauro Simon [facility] [place] Start: 09-15-2023 ambulatory Lauro Simon Facility:[facility] Start: 09-04-2023 End: 09-04-2023 ambulatory Mhd Yaser Al-Marrawi Facility:[facility] Start: 09-04-2023 End: 09-04-2023 Patient encounter procedure Mhd Yaser Al-Marrawi [facility] Start: 09-01-2023 End: 09-01-2023 ambulatory Mhd Sushil Narayan Facility:[facility] Start: 09-01-2023 End: 09-01-2023 Patient encounter procedure Mhd Sushil Narayan [facility] Start: 08-07-2023 End: 08-07-2023 ambulatory Lauro Simon Facility:[facility] Start: 08-07-2023 End: 08-07-2023 Patient encounter procedure Lauro Simon [facility] [place] Start: 07-28-2023 End: 07-29-2023 ambulatory [facility] Start: 07-28-2023 End: 08-01-2023 ambulatory [facility] Start: 07-27-2023 End: 07-28-2023 ambulatory [facility] Start: 07-26-2023 End: 07-27-2023 ambulatory [facility] Start: 07-25-2023 End: 07-26-2023 ambulatory [facility] Start: 07-24-2023 End: 07-25-2023 ambulatory [facility] Start: 07-21-2023 End: 07-22-2023 ambulatory [facility] Start: 07-20-2023 End: 07-21-2023 ambulatory [facility] Start: 07-19-2023 End: 07-20-2023 ambulatory KELIN CASSIDYGEOFFREY [facility] Start: 07-18-2023 End: 07[facility]: 07-14-[facility]23 End: 07-15-2023 ambulatory [facility] Start: 07-13-2023 End: 07-14-2023 ambulatory [facility] Start: 07-13-2023 End: 07-13-2023 ambulatory KELIN ANGEGEOFFREY [facility] Start: 07-12-2023 End: 07-13-2023 ambulatory [facility] Start: 07-07-2023 End: 07-08-2023 ambulatory [facility] Start: 07-06-2023 End: 07-07-2023 ambulatory [facility] Start: 07-05-2023 End: 07-06-2023 ambulatory [facility] Start: 07-04-2023 End: 07-05-2023 ambulatory [facility] Start: 07-03-2023 End: 07-04-2023 ambulatory [facility] Start: 06-30-2023 End: 07-01-2023 ambulatory [facility] Start: 06-29-2023 End: 06-30-2023 ambulatory [facility] Start: 06-28-2023 End: 06-29-2023 ambulatory [facility] Start: 06-27-2023 End: 06-28-2023 ambulatory [facility] Start: 06-26-2023 End: 06-27-2023 ambulatory [facility] Start: 06-23-2023 End: 06-24-2023 ambulatory [facility] Start: 06-22-2023 End: 06-23-2023 [facility] Start: 06-21-2023 End: 06-22-2023 ambulatory [facility] Start: 06-20-2023 End: 06-21-2023 ambulatory [facility] Start: 06-19-2023 End: 06-20-2023 ambulatory [facility] Start: 06-16-2023 End: 06-17-2023 ambulatory [facility] Start: 06-15-2023 End: 06-16-2023 ambulatory [facility] Start: 06-14-2023 End: 06-15-2023 ambulatory [facility] Start: 06-13-2023 End: 06-14-2023 ambulatory [facility] Start: 05-30-2023 End: 05-30-2023 ambulatory Mhd Yaser Al-Marrawi Facility:[facility] Start: 05-30-2023 End: 05-30-2023 Patient encounter procedure Mhd Yaser Al-Marrawi [facility] Start: 05-25-2023 End: 05-26-2023 [facility] Start: 05-25-2023 End: 05-25-2023 [facility] Start: 05-22-2023 End: 05-22-2023 ambulatory Mhd Yaser Al-Marrawi Facility:[facility] Start: 05-22-2023 End: 05-22-2023 Patient encounter procedure Mhd Yaser Al-Marrawi [facility] Start: 05-22-2023 End: 05-22-2023 ambulatory Mhd Yaser Al-Marrawi Facility:[facility] Start: 05-22-2023 End: 05-22-2023 Patient encounter procedure Mhd Sushil Boo-Yesenia [facility] Start: 05-02-2023 End: 05-03-2023 ambulatory BESSYJILL KATHRYN [facility] Start: 05-01-2023 End: 05-01-2023 ambulatory Lauro Simon Facility:[facility] Start: 05-01-2023 End: 05-01-2023 Patient encounter procedure Lauro Simon [facility] [place] Start: 05-01-2023 End: 05-01-2023 ambulatory Mhd Sushil Narayan Facility:[facility] Start: 05-01-2023 End: 05-01-2023 Patient encounter procedure Mhd Sushil Narayan [facility] Start: 04-21-2023 End: 04-21-2023 ambulatory Lauro Simon Facility:[facility] Start: 04-11-2023 End: 04-11-2023 ambulatory Negin Lobato Facility:[facility] Start: 04-03-2023 ambulatory Lauro Simon Facilit y:[facility] Start: 03-01-2023 End: 03-01-2023 ambulatory XXXX NONE Facility:[facility] Start: 03-01-2023 End: 03-01-2023 Patient encounter procedure Basangie X Pal[place]ra [facility] Start: 03-01-2023 End: 03-01-2023 Preprocedural examination done Bashar X [place] [facility] Start: 02-22-2023 End: 02-22-2023 Patient encounter procedure Lauro Simon [facility] Start: 02-20-2023 End: 03-23-2023 Pre-admission assessment Lauro Simon [facility] Start: 12-10-2022 End: 12-11-[address] BRIANNA YANEZ . Facility:[facility] Start: 09-15-2022 End: 09-15-[address] BRIANNA YANEZ . Facility:[facility] Start: 07-12-2022 End: 07-12-[address] BRIANNA YANEZ . Facility:[facility] Start: 07-06-2022 Encounter for genera l adult medical examination without abnormal findings DR BRIANNA YANEZ . [facility] Start: 07-02-2022 End: 07-03-[address] BRIANNA YANEZ . Facility:[facility] Start: 07-02-2022 End: 07-03-2022 Encounter for general adult medical examination without abnormal findings DR BRIANNA YANEZ . Facility:[facility] Start: 04-16-2022 End: 04-17-[address] BRIANNA YANEZ . Facility:[facility] Start: 03-22-2022 End: 03-22-[address] BRIANNA YANEZ . Facility:[facility] Start: 01-10-2022 End: 01-10-[address] BRIANNA YANEZ . Facility:[facility] Start: 01-03-2022 End: 01-04-[address] BRIANNA YANEZ . Facility: Procedures Date Procedure Procedure Detail Performing Clinician Start: 04-11-2023 Biopsy of lymph node June Simon Start: 06-16-2021 Bronchoscopy Lauro more Biopsy of breast Lauro stevenson section Lauro stevenson Plan of Treatment Date Care Activity Detail Author Start: 11-28-2027 Urine microalbumin profile DTa P,Tdap,Td Vaccine (2 - Td or Tdap) [facility] Start: 03-17-2024 Influenza vaccination Influenza Vacc ine (#1) [facility] Start: 01-06-2024 Screening for malign ant neoplasm of breast Mammogram Screening [facility] Start: 11-11-2023 Advance Directive Discussion Advance Directive Discussion [facility] Start: 11-11-2023 Screening for osteoporosis Bone Dens ity Screening [facility] Start: 03-17-2023 Covid-19 Vaccine ( season) Covid-19 Vaccine ( season) [facility] Start: 07-05-2022 Diabetes Screening Diabetes Screenin g [facility] Start: 2008 Shingrix Vaccine (1 of 2) Craig grix Vaccine (1 of 2) [facility] Start: 11-11-2003 Lipid panel Lipid Screening [place] Start: 11-11-2003 Screening for malign ant neoplasm of colon [facility] Start: 1976 Anxiety Screening Anxiety Screening [facility] Start: 1976 Depression Screening Depression Scre ening [facility] Start: 1976 Hepatitis C screening Hepatitis C Sc reening [facility] Start: 1976 HIV screening [facility] Immunizations Immunization Date Immunization Notes Care Provider [facility] 06-27-2023 influenza virus vaccine, unspecified formulation Chris Baum MD Work Phone: [facility] 04-15-2022 influenza virus vaccine, unspecified formulation Lauro Simon [facility] 05-02-2021 influenza virus vaccine, unspecified formulation Lauro Simon [facility] 10-31-2020 SARS-CoV-2 (COVID-19 ) mRNA BNT-162l2 vax Lauro Mourangraham [facility] Comment on above: Result Comment: 2022: [id number] 10-10-2020 SARS-CoV-2 (COVID-19 ) mRNA BNT-162b2 vax Lauro Mourangraham [facility] Comment on above: Result Comment: 2022: [id number] 05-02-2019 influenza virus vaccine, unspecified formulation Lauro Simon [facility] 05-02-2019 influenza, injectabl e, quadrivalent, preservative free Chris Baum MD Work Phone: [facility] 05-04-2018 influenza virus vaccine, unspecified formulation Lauro Simon [facility] 05-04-2018 influenza, injectabl e, quadrivalent, preservative free Chris Baum MD Work Phone: [facility] 11-27-2017 tetanus toxoid, redu alona diphtheria toxoid, and acellular pertussis vaccine, adsorbed Lauro Simon [facility] 05-02-2017 influenza virus vaccine, unspecified formulation Lauro Simon [facility] 05-09-2016 influenza, unspecifi ed formulation Lauro Simon [facility] 05-07-2015 influenza virus vaccine, unspecified formulation Lauro Simon [facility] 05-07-2015 influenza, high dose seasonal, preservative-free Chris Baum MD Work Phone: [facility] 07-14-2014 influenza virus vaccine, unspecified formulation Lauro Simon [facility] 07-14-2014 influenza, injectable,quadrivalent , preservative free, pediatric Chris Baum MD Work Phone: [facility] 07-14-2014 pneumococcal conjuga te vaccine, 13 valent Lauro Simon [facility] 04-12-2013 influenza virus vaccine, unspecified formulation Chris Baum MD Work Phone: [facility] Work Phone: 06-15-2012 influenza virus vaccine, unspecified formulation Chris Baum MD Work Phone: [facility] 12-01-2011 pneumococcal polysaccharide vaccine, 23 valent Chris Baum MD Work Phone: [facility] 10-12-2010 influenza virus vaccine, unspecified formulation Chris Baum MD Work Phone: [facility] NEGATED: Highlighted row has not occurred!04-21-2023 influenza virus vaccine, unspecified formulation Lauro Ugarteshae [facility] [place] Payers Date Payer Category Payer Medicare [id number] 2023 Medicare [id number] 2023 Unknown [id number] 2022 Unknown [id number] 1958 Unknown [id number] 2.16.84 0.1.798971.3.579.2.593 1958 Unknown [id number] 2.16.84 0.1.722652.3.579.2.593 1958 Unknown [id number] 2.16.84 0.1.038342.3.579.2.593 1958 Unknown [id number] 2.16.84 0.1.155959.3.579.2.593 1958 Unknown [id number] 2.16.84 0.1.472145.3.579.2.593 1958 Unknown [id number] 2.16.84 0.1.390480.3.579.2.593 1958 Unknown [id number] 2.16.84 0.1.658072.3.579.2.593 1958 Unknown [id number] 2.16.84 0.1.231122.3.579.2.593 1958 Unknown [id number] 2.16.8 40.1.342962.3.579.2.727 1958 Unknown [id number] 2.16.8 40.1.581332.3.579.2. 1958 Unknown [id number] 2.16.8 40.1.524634.3.579.2 1958 Unknown [id number] 2.16.8 40.1.920973.3.579.2. 1958 Unknown [id number] 2.16.8 40.1.604335.3.579.2 1958 Unknown [id number] 2.16.8 40.1.738165.3.579.2 1958 Unknown [id number] 2.16.8 40.1.117910.3.579.2 1958 Unknown [id number] 2.16.8 40.1.956271.3.579.2 1958 Unknown [id number] 2.16.8 40.1.406659.3.579.2 1958 Unknown [id number] 2.16.8 40.1.058294.3.579.2 1958 Unknown [id number] 2.16.8 40.1.331628.3.579.2 1958 Unknown [id number] 2.16.8 40.1.628571.3.579.2 1958 Unknown [id number] 2.16.8 40.1.504916.3.579.2 1958 Unknown [id number] 2.16.8 40.1.173016.3.579.2 1958 Unknown [id number] 2.16.8 40.1.136700.3.579.2 1958 Unknown [id number] 2.16.8 40.1.429159.3.579.2 1958 Unknown [id number] 2.16.8 40.1.144996.3.579.2.727 1958 Unknown [id number] 2.16.8 40.1.679202.3.579.2.727 1958 Unknown [id number] 2.16.8 40.1.245113.3.579.2.727 1958 Unknown [id number] 2.16.84 0.1.168851.3.579.2.1259 Unknown [id number] Social History Date Type Detail Facility Start: 01-30-2023 End: 02-26-2024 Tobacco smoking status Never smoked tobacco (finding) [facility] Tobacco smoking status Never [facility] Start: 02-19-2024 End: 02-20-2024 Sex Assigned At Female [facility] Start: 10-22-2014 Tobacco use and exposure Smokeless tobacco non-user [facility] Start: 02-20-2024 Alcohol intake 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 Functional Status Date Assessment Result Facility 08-07-2023 Functional Status N/A [facility] 03-01-2023 Functional Status No [facility] 02-22-2023 Functional Status No [facility] Clinical Notes 01-03-2022 to 02-20-2024 Chris Baum MD - 02/20/2024 12:45 PM EDTRadiologyRadiologyLaboratoryRadiologyLaboratoryLaboratoryLaboratoryLaboratory Laboratory Note Date & Type Note Facility 02-20-2024 Note HNO ID: [id number] Author: CHRIS BAUM MD Service: ? Author Type: Physician Type: Progress Notes Filed: 02/20/2024 17:38 Note Text: [facility] FOLLOWUP/ESTABLISHED PATIENT VISIT Also followed by: Brianna Yanez MD, PCP PRINCIPAL NEUROLOGIC DIAGNOSIS: Multiple sclerosis DISEASE SUMMARY Date of onset: 07/2005 Date of diagnosis of MS: 11/30/2005 Disease course at onset: Relapsing-Remitting Current disease course: Stable Previous disease therapies: Avonex (began 01/26/06) - stopped in June 2015 due to stable disease and chronic pulmonary infection Current disease therapy: None Most recent MRI brain: 12/11/15 (no new or contrast enhancing lesions) Most recent MRI cervical spine: 11/30/2005 (possible subtle C2 lesion per report) CSF: None CHIEF COMPLAINT: Follow-up for monitoring off MS modifying therapy INTERVAL HISTORY: Overall, patient has been doing well without any new neurologic symptoms or concerns for progressive disability. She has recently been treated for breast cancer with radiation and hormone therapy. She continues to have problematic symptoms from chronic bronchiectasis. She reports her weight is stable. However, reports she has lost some with her ongoing pulmonary issues. Mood: Good Spasticity:Sometimes a bit stiff after sitting in the car for too long and occasional muscle spasm in her legs Bladder: some stress incontinence with forceful coughing and some urgency Bowel: occasional constipation relieved with OTC stool softeners Fatigue: Mild Sleep: Difficulty staying asleep due to chronic cough Memory/Concentration: Patient has not noticed any issues; reports occasional issues using the computer Usual treating team: Fellow/Baum The patient is accompanied by her . The patient was last seen 05/29/2019, currently taking Not on DMT. Since the patient's last visit the patient reports overall feeling stable. Issues with current therapy: Not currently on disease modifying therapy. Neuro-QoL Functions (higher=better functioning) Flowsheet [facility] Office Visit from 02/20/2024 in [facility] Office Visit from 07/01/2015 in [facility] Office Visit from 05/28/2014 in [facility] Upper Extremity Domain T Score 57 47.9 56.84 Lower Extremity Domain T Score 50 48.92 55.49 Cognitive Function Domain T Score 67 -- -- Positive Affect Well Being T Score -- -- -- Ability To Participate In Social Roles T Score 56 -- -- Satisfaction With Social Roles T Score 62 -- -- Neuro-QoL Symptoms (higher=worse symptoms) Flowsheet [facility] Office Visit from 02/20/2024 in [facility] Office Visit from 07/01/2015 in [facility] Office Visit from 05/28/2014 in [facility] Sleep Domain T Score 32 38.15 40.22 Fatigue Domain T Score 38 33.86 37.65 Anxiety Domain T Score 36 -- -- Depression Domain T Score 34 -- -- Stigma Domain T Score 37 -- -- Emotional Behavior Dyscontrol T Score -- -- -- has a past medical history of Migraine with aura, without mention of intractable migraine without mention of status migrainosus, Multiple sclerosis ([facility]), Pulmonary infiltrate, and Sciatica. She has no past medical history of Atrial fibrillation ([facility]), Cancer ([facility]), Chronic obstructive pulmonary disease (COPD) ([facility] [facility]), Chronic renal insufficiency, Congestive heart failure ([facility]), Coronary artery disease, Depression, Diabetes ([facility]), Epilepsy ([facility]), Hypertension, Obstructive sleep apnea, Steroid long-term use, Stroke ([facility]), or Substance abuse ([facility]). has a current medication list which includes the following prescription(s): letrozole, latanoprost, cholecalciferol, calcium carbonate, sodium chloride, albuterol, ipratropium bromide, and nebulizer and compressor for neb. EXAM: BP 133/81 Pulse 83 Ht 165.1 cm (5' 5 ) Wt 59 kg (130 lb) BMI 21.63 kg/m? MSPT Results Flowsheet [facility] Office Visit from 12/11/2015 in [facility] Office Visit from 07/01/2015 in [facility] Office Visit from 05/28/2014 in [facility] Processing Speed Total Number Correct -- -- -- Processing Speed Z score -- -- -- Dominant hand Right hand Right hand Right hand MDT Left Hand Time -- -- -- MDT Right Hand Time -- -- -- Walking Speed Test (25 feet) -- -- -- General Appearance: well appearing, in no acute distress Mental status evaluation during the interview and examination showed normal level of consciousness, orientation, language, memory, praxis, and higher intellectual function Affect: Normal Visual acuity: OD 20/20 OS 20/20 Correction: With glasses Extraocular movements: full, without MYLENE Facial sensation: Intact bilaterally Facial movements: Intact bilaterally Speech: normal Muscle tone: Right arm spasticity: None Right leg spasticity: None Left arm spasticity: None Left leg spasticity: None Muscle strength (#/5): Right Left Upper Extremity: Deltoids 5 5 Biceps 5 5 Triceps 5 5 Sewing Inspector 5 5 Dorsal interossei 5 5 Lower extremit (more content not included)... [facility] 02-20-2024 History of Present illness Narrative Images from the original note were not included. [facility] FOLLOWUP/ESTABLISHED PATIENT VISIT Also followed by: Brianna Yanez MD, PCP PRINCIPAL NEUROLOGIC DIAGNOSIS: Multiple sclerosis DISEASE SUMMARY Date of onset: 07/2005 Date of diagnosis of MS: 11/30/2005 Disease course at onset: Relapsing-Remitting Current disease course: Stable Previous disease therapies: Avonex (began 01/26/06) - stopped in June 2015 due to stable disease and chronic pulmonary infection Current disease therapy: None Most recent MRI brain: 12/11/15 (no new or contrast enhancing lesions) Most recent MRI cervical spine: 11/30/2005 (possible subtle C2 lesion per report) CSF: None CHIEF COMPLAINT: Follow-up for monitoring off MS modifying therapy INTERVAL HISTORY: Overall, patient has been doing well without any new neurologic symptoms or concerns for progressive disability. She has recently been treated for breast cancer with radiation and hormone therapy. She continues to have problematic symptoms from chronic bronchiectasis. She reports her weight is stable. However, reports she has lost some with her ongoing pulmonary issues. Mood: Good Spasticity:Sometimes a bit stiff after sitting in the car for too long and occasional muscle spasm in her legs Bladder: some stress incontinence with forceful coughing and some urgency Bowel: occasional constipation relieved with OTC stool softeners Fatigue: Mild Sleep: Difficulty staying asleep due to chronic cough Memory/Concentration: Patient has not noticed any issues; reports occasional issues using the computer Usual treating team: Fellow/Baum The patient is accompanied by her . The patient was last seen 05/29/2019, currently taking Not on DMT. Since the patient's last visit the patient reports overall feeling stable. Issues with current therapy: Not currently on disease modifying therapy. Neuro-QoL Functions (higher=better functioning) Flowsheet Row Office Visit from 02/20/2024 in [facility] Office Visit from 07/01/2015 in [facility] Office Visit from 05/28/2014 in [facility] Upper Extremity Domain T Score 57 47.9 56.84 Lower Extremity Domain T Score 50 48.92 55.49 Cognitive Function Domain T Score 67 -- -- Positive Affect Well Being T Score -- -- -- Ability To Participate In Social Roles T Score 56 -- -- Satisfaction With Social Roles T Score 62 -- -- Neuro-QoL Symptoms (higher=worse symptoms) Flowsheet [facility] Office Visit from 02/20/2024 in [facility] Office Visit from 07/01/2015 in [facility] Office Visit from 05/28/2014 in [facility] Sleep Domain T Score 32 38.15 40.22 Fatigue Domain T Score 38 33.86 37.65 Anxiety Domain T Score 36 -- -- Depression Domain T Score 34 -- -- Stigma Domain T Score 37 -- -- Emotional Behavior Dyscontrol T Score -- -- -- has a past medical history of Migraine with aura, without mention of intractable migraine without mention of status migrainosus, Multiple sclerosis ([facility]), Pulmonary infiltrate, and Sciatica. She has no past medical history of Atrial fibrillation ([facility]), Cancer ([facility]), Chronic obstructive pulmonary disease (COPD) ([facility]), Chronic renal insufficiency, Congestive heart failure ([facility]), Coronary artery disease, Depression, Diabetes ([facility]), Epilepsy ([facility]), Hypertension, Obstructive sleep apnea, Steroid long-term use, Stroke ([facility]), or Substance abuse ([facility]). has a current medication list which includes the following prescription(s): letrozole, latanoprost, cholecalciferol, calcium carbonate, sodium chloride, albuterol, ipratropium bromide, and nebulizer and compressor for neb. EXAM: BP 133/81 Pulse 83 Ht 165.1 cm (5' 5 ) Wt 59 kg (130 lb) BMI 21.63 kg/m MSPT Results [facility] Office Visit from 12/11/2015 in [facility] Office Visit from 07/01/2015 in [facility] Office Visit from 05/28/2014 in [facility] Processing Speed Total Number Correct -- -- -- Processing Speed Z score -- -- -- Dominant hand Right hand Right hand Right hand MDT Left Hand Time -- -- -- MDT Right Hand Time -- -- -- Walking Speed Test (25 feet) -- -- -- General Appearance: well appearing, in no acute distress Mental status evaluation during the interview and examination showed normal level of consciousness, orientation, language, memory, praxis, and higher intellectual function Affect: Normal Visual acuity: OD 20/20 OS 20/20 Correction: With glasses Extraocular movements: full, without MYLENE Facial sensation: Intact bilaterally Facial movements: Intact bilaterally Speech: normal Muscle tone: Right arm spasticity: None Right leg spasticity: None Left arm spasticity: None Left leg spasticity: None Muscle strength (#/5): Right Left Upper Extremity: Deltoids 5 5 Biceps 5 5 Triceps 5 5 Sewing Inspector 5 5 Dorsal interossei 5 5 Lower extremity: Iliopsoas 4+ < 4+ Quadriceps 4+ 4+ Hamstrings 4+ 4+ Tibialis anterior 5 5 Gastrocnemius 5 5 Reflexes: brachioradialis +++ brachioradialis +++ biceps ++ biceps ++ triceps ++ triceps ++ patellar +++ patellar +++ Achilles 0 Achilles ++ plantar response down plantar response down Coordination: Upper extremity dexterity and rapid movements: Normal bilaterally Finger-nose: no dysmetria; coordination intact Heel-craig: no dysmetria; coordination intact Sensory Perception: Pin Prick: Intact, Vibration: Diminished at the right toe, Touch: Diminished below the knees bilaterally, Position Sense: diminished at the right toe Standing balance: Normal Standard gait: slow and somewhat cautious but otherwise normal. Assistive device: independent RESULTS: No updated labs to review MRI Results: Discrete MRI Results Component Value Date Brain New T2 Lesions Not applicable 12/11/2015 Brain Enhancing Lesions None 12/11/2015 MRI brain 12/11/15 personally reviewed and a moderate to severe burden of periventricular demyelinating lesions as well as additional more nonspecific subcortical lesions. ASSESSMENT/PLAN: Emeli Kaufman is a 63 year old female with multiple sclerosis not currently on disease modifying therapy. Based on history and exam as well as patient's age, she is very unlikely to have active inflammatory disease and her exam is overall relatively stable compared to 2019 with only some very mild proximal bilateral lower extremity weakness. Given this and continued desire to avoid strong immunosuppression in the setting of chronic bronchiectasis and pulmonary issues, we will continue to monitor the patient clinically off DMT. PLAN: -Continue to monitor clinically. Consider follow-up in 1 to 2 years or as needed. -No need for repeat imaging at this time Ángel Zendejas MD Neuroimmunology Fellow, PGY 5 [facility] Patient seen and evaluated. She has long-standing multiple sclerosis but has been clinically stable for many years, without evidence for active inflammation. Although a brain MRI could be considered now, I think it's unlikely to change our current recommendations to remain off multiple sclerosis disease modifying therapy. Chris Baum MD cc: Brianna Yanez MD, [address] [facility] [id number] documented in this encounter [facility] 11-07-2023 Note [facility] Department of Radiation Oncology [address] [place] [address] RADIATION ONCOLOGY FOLLOW UP NOTE Date of Service: 11/07/23 Patient Name: Emeli Kaufman Patient : 1960 Diagnosis: 62 y.o. woman diagnosed in January 2023 with low-grade, ER/IL+, her2 negative invasive lobular carcinoma of the LEFT breast s/p R0 lumpectomy and SLNbx in Mar 2023 yielding pT1c pN1a(sn) G1 R0 disease, OncotypeDx score X, completed a course of adjuvant radiotherapy to the L breast and draining lymphatics on 07/28/2023, on letrozole/Femara. Chief Complaint: I feel fine. Interval Hx: Patient returns in an initial post-radiation follow up. She is doing well, tolerating letrozole. She saw both her medical oncologist and surgeon in follow up recently. Also follows closely with her canal boat operator for chronic EVAN infection. Denies breast pain, nipple discharge, limited RoM in L shoulder, CP, worsening SOB, worsening cough. Original Consultation History of Present Illness: Patient presents in initial Radiation Oncology consultation as per the request of Dr. Narayan of Medical Oncology. We have been asked to evaluate the patient for radiotherapy options. Ms. Kaufman is a 62 y.o. woman diagnosed in January with early-stage invasive lobular carcinoma of the left breast, as noted above. She has been regularly getting screening mammograms which have been benign all these years; in December 2022 she palpated a mass in the left breast, thus prompting further work-up thateventually established the diagnosis in January. Patient had to have bronchoscopy to clear out my airways before she had oncologic surgery in late March. Of note, patient has a history of multiple sclerosis, has been off treatment for 12-13 years, without neurologic progression. Moreover, she has a chronic Mycobacterium avium intracellulare infection, NOS, that causes bronchiectasis, and she is under a close care of Dr. Stevie Fajardo at [facility]. Patient experiences cough whenever I lie down. I reviewed the patient's oncologic, medical, surgical, social, and family history, as well as allergies/medications as per the medical record. GynHx: Menarche 10. Used oral contraceptives 4-5 years. . Age at delivery of first child 20. Did not breast feed. Menopause early 50s. No HRT. SocHx: , lives with spouse. Does not smoke or drink alcohol. FamHx: Reviewed. Review of Systems: I reviewed the Review of Systems with the patient. Clinically pertinent ones noted in the HPI. All others have been reviewed and are negative. Physical Exam: BP 114/68 (BP Location: Right arm, Patient Position: Sitting, BP Cuff Size: Adult) Pulse 99 Temp 36.6 ???C (97.8 ???F) (Oral) Resp 18 Wt 54.4 kg (120 lb) BMI 19.97 kg/m??? GENERAL: ECOG 1-2, well-appearing, in no apparent distress, alert and fully oriented, answers questions appropriately, accompanied by spouse. HEENT: Normocephalic, atraumatic, PER, EOMI, mucous membranes moist, no suspicious asymmetry or abnormal mass lesions. NECK: No cervical or supraclavicular lymphadenopathy. BREAST: barely perceptible curvilinear incision in UOQ of L breast is c/d/I; mild edema; no palpable mass in either breast, no LAD in axillae or supraclavicular fossae. ABD: No visceromegaly or masses. EXTREMITIES: Normal range of motion, no cyanosis/clubbing/edema. LYMPH: No appreciable adenopathy. NEURO: AOx4, credit reference clerk grossly normal, gait normal, muscle power in extremities normal. PSYCH: Appropriate affect for the clinical situation. Insight and judgment not impaired. LABS: No recent studies. RADS: 01/05/2023 BI MAMMOGRAM DIAGNOSTIC TOMOSYNTHESIS BILATERAL, BI US BREAST LIMITED LEFT: A mostly obscured asymmetric density is noted in the upper outer quadrant of the left breast at an area of palpable concern. There are no suspicious microcalcifications, or other significant changes identified elsewhere, given differences in technique and positioning. On ultrasound, at the 1 to 2 o'clock position of the axillary tail is an ill-defined heterogeneous solid ovoid nodule measuring approximately 1.3 x 0.8 x 0.6 cm. Ultrasound-guided biopsy is suggested. PATH: 04/19/2023 Left partial mastectomy (lumpectomy, upper outer quadrant) and sentinel lymph node biopsy specimens demonstrated invasive lobular carcinoma, single focus, grade 1, 1.1 x 0.6 x 0.5 cm, with associated lobular carcinoma in situ. Medial and anterior/posterior margin was less than 1 mm from invasive carcinoma. True margin, left breast, excision: No evidence of malignancy. [place] lymph nodes, left breast, excision: Metastatic lymph nodes identified, 2/2 positive for metastatic neoplasm, large size of metastatic focus 0.8 cm, no extranodal extension identified. Pathologic staging: pT1c pN1a(sn). Estrogen receptor >90% positive, progesterone receptor 20-30% positi (more content not included)... [facility] 09-04-2023 Hospital Discharge instructions Follow Up Care 09/04/2023 15:35:12 With:Sondra FIELDS, Muna Fuentes, ONC Address: [facility] [address] [place] [phone] When: Unknown Comments:continue alendronate weekly and letrozole dailydiagnostic mamm in January/Feb (pipeline superintendent will order)cmp in 3mofollow-up in 3mo with Dr. Donis [facility] 09-04-2023 Hospital Discharge instructions Patient Education 09/04/2023 15:24:09 Protein Blood Test Protein Blood Test Why am I having this test? Proteins are substances that are important for many functions in the body. You may have the protein blood test as a part of routine screening tests. This test helps screen for liver problems, kidney disease, and many other conditions. Your health care provider may also order this test if you have symptoms of one of these conditions. What is being tested? This test measures the amount of protein in your blood. The two main types of protein in the body are albumin and globulin. The test will measure the amount of each type as well as the total amount of protein in your blood. What kind of sample is taken? A blood sample is required for this test. It is usually collected by inserting a needle into a blood vessel. Tell a health care provider about: All medicines you are taking, including vitamins, herbs, eye drops, creams, and [id number] medicines. Any medical conditions you have. How are the results reported? Your test results will be reported as values that indicate the total amount of protein in your blood and the amount of albumin and globulin. Your health care provider will compare your results to normal ranges that were established after testing a large group of people (reference ranges). Reference ranges may vary among labs and hospitals. For this test, common reference ranges are: Adult and aging adult Total protein: 6.4 8.3 g/dL or 64 83 g/L (SI units). Albumin: 3.5 5 g/dL or 35 50 g/L (SI units). Globulin: 2.3 3.4 g/dL. Alpha1 globulin: 0.1 3 g/dL or 1 3 g/L (SI units). Alpha2 globulin: 0.6 1 g/dL or 6 10 g/L (SI units). Beta globulin: 0.7 1.1 g/dL or 7 11 g/L (SI units). Children Total protein: ?Premature infant: 4.2 7.6 g/dL. ?[place]: 4.6 7.4 g/dL. ?: 6 6.7 g/dL. ?Child: 6.2 8 g/dL. Albumin: ?Premature infant: 3 4.2 g/dL. ?: 3.5 5.4 g/dL. ?: 4.4 5.4 g/dL. ?Child: 4 5.9 g/dL. What do the results mean? Results within the reference range are considered normal. Increased protein levels may indicate: Dehydration. High cholesterol. Iron deficiency anemia. Estrogen therapy. Malignancy. Chronic inflammatory disease. Decreased protein levels may indicate: Malnutrition. . Liver disease. Nephrotic syndrome. Fluid imbalance. Acute inflammation. Talk with your health care provider about what your results mean. Questions to ask your health care provider Ask your health care provider, or the department that is doing the test: When will my results be ready? How will I get my results? What are my treatment options? What other tests do I need? What are my next steps? Summary A protein blood test measures the total amount of protein in your blood and the amount of albumin and globulin, the two main types of protein in your body. The protein blood test is a part of routine screening tests and helps screen for liver problems, kidney disease, and many other conditions. Talk with your health care provider about what your results mean. This information is not intended to replace advice given to you by your health care provider. Make sure you discuss any questions you have with your health care provider. Document Revised: 03/26/2021 Document Reviewed: 03/26/2021 [employer] Patient Education 2022 [employer]. Follow Up Care 05/22/2023 14:57:40 With:Sylvain RICE, Neftali Ling, MED, ONC Address: When: Unknown Comments:Start Actonel 35 mg once a week with full glass of water in am in upright position, again only once a week.Continue Femara once daily.Calcium 500 mg twice daily.Continue vitamin D 2000 units daily.Labs in 3 months including CBC with differential, CMP, myeloma labs.Return in 3 months. [facility] 07-27-2023 Note [facility] Department of Radiation Oncology [address] [place] [address] Date of Service: 07/27/23 Patient Name: Emeli Kaufman Patient : 1960 Radiation Oncology ON-TREATMENT VISIT NOTE Diagnosis: 62 y.o. woman diagnosed in January 2023 with low-grade, ER/IL+, her2 negative invasive lobular carcinoma of the LEFT breast s/p R0 lumpectomy and SLNbx in Mar 2023 yielding pT1c pN1a(sn) G1 R0 disease, now receiving adjuvant radiotherapy to the left breast and axillary lymph nodes. Dose Accrued: 25/25 fractions to left breast, and 4/5 fractions lumpectomy bed boost. Subjective: Patient is doing well, voices no complaints, will complete the course tomorrow. She is tolerating daily treatment set-up and delivery without issues. Noticing some additional areas of erythema, now on the posterior left shoulder, applying Aveeno lotion twice daily. Energy level is essentially stable, daily routine largely unchanged. Objective: ECOG 1, well appearing, in NAD, sitting comfortably in a chair, treatment area with moderate erythema, no desquamation or breakdown. Plan: Continue radiotherapy as planned, will finish the course tomorrow. Start applying Aquaphor or an ointment-like moisturizer; will also Rx Silvadene cream. I reiterated the anticipated recovery over the next few weeks. Continue bacterial decolonization for another week or so, and moisturizing at least twice a day for 2-3 weeks, as instructed. RTC in mid October. She will follow up with [facility] in te interim. Patient verbalized a good understanding to everything. Alana Mendez MD [facility] 07-19-2023 Note [facility] Department of Radiation Oncology [address] [place] [address] Date of Service: 07/19/23 Patient Name: Emeli Kaufman Patient : 1960 Radiation Oncology ON-TREATMENT VISIT NOTE Diagnosis: 62 y.o. woman diagnosed in January 2023 with low-grade, ER/IL+, her2 negative invasive lobular carcinoma of the LEFT breast s/p R0 lumpectomy and SLNbx in Mar 2023 yielding pT1c pN1a(sn) G1 R0 disease, now receiving adjuvant radiotherapy to the left breast and axillary lymph nodes. Dose Accrued: 23/25 fractions. Subjective: Patient is doing well, voices no complaints. She is tolerating daily treatment set-up and delivery without issues. Noticing some additional areas of erythema, now on the posterior left shoulder, applying moisturizers twice daily. Energy level is essentially stable, daily routine largely unchanged. Objective: Visit Vitals BP 135/78 Pulse 86 Temp 36.4 ???C (97.5 ???F) Resp 16 ECOG 1, well appearing, in NAD, sitting comfortably in a chair, treatment area with moderate erythema, no desquamation or breakdown. Plan: Continue radiotherapy as planned. I reiterated the anticipated side effects over the next few weeks. Continue bacterial decolonization, and moisturizing at least twice a day. Patient verbalized a good understanding to everything. 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 Vitals WNL. Rad site brisk, no open areas. Reviewed proper skin care, pt verbalizes understanding. Pt. Denies any pain. No further concerns at this time. [facility] 07-13-2023 Note [facility] Department of Radiation Oncology [address] [place] [address] Date of Service: 07/13/23 Patient Name: Emeli Kaufman Patient : 1960 Radiation Oncology ON-TREATMENT VISIT NOTE Diagnosis: 62 y.o. woman diagnosed in January 2023 with low-grade, ER/IL+, her2 negative invasive lobular carcinoma of the LEFT breast s/p R0 lumpectomy and SLNbx in Mar 2023 yielding pT1c pN1a(sn) G1 R0 disease, now receiving adjuvant radiotherapy to the left breast and axillary lymph nodes. Dose Accrued: 20/25 fractions. Subjective: Patient is doing well, same as last week, voices no complaints. She is tolerating daily treatment set-up and delivery without issues. Denies new symptoms. Energy level is essentially stable, daily routine largely unchanged. She is washing the treated area with an antibacterial soap as instructed, and moisturizing twice daily with Aveeno lotion. Objective: Visit Vitals BP 137/63 Pulse 95 Temp 36.3 ???C (97.3 ???F) Resp 16 ECOG 1, well appearing, in NAD, sitting comfortably in a chair, treatment area with moderate erythema, no desquamation or breakdown. Plan: Continue radiotherapy as planned. I reiterated the anticipated side effects over the next few weeks. Continue bacterial decolonization, and moisturizing at least twice a day. Patient verbalized a good understanding to everything. Kelin Rosenberg MD Patient Care Team: Brianna Yanez MD as PCP - General Alana Mendez (Radiation Oncology) Stevie Fajardo (Pulmonary Disease) Sridhar Narayan as Referring Physician (Medical Oncology) [facility] 06-27-2023 Note Accompanied by Noe mark nd. States tolerating radiation treatments well. States is using antibacterial soap and moisturizing daily with Aveeno. Denies pain. Left breast slightly reddened. Denies dyspnea. States has chronic cough productive of light green sputum. Denies hemoptysis. Denies issues with elimination. Denies hematuria or hematochezia. [facility] 06-27-2023 Note [facility] Department of Radiation Oncology [address] [place] [address] Date of Service: 06/27/23 Patient Name: Emeli Kaufman Patient : 1960 Radiation Oncology ON-TREATMENT VISIT NOTE Diagnosis: 62 y.o. woman diagnosed in January 2023 with low-grade, ER/IL+, her2 negative invasive lobular carcinoma of the LEFT breast s/p R0 lumpectomy and SLNbx in Mar 2023 yielding pT1c pN1a(sn) G1 R0 disease, now receiving adjuvant radiotherapy to the left breast and axillary lymph nodes. Dose Accrued: Reviewed. Subjective: Patient is doing well, same as last week, voices no complaints. She is tolerating daily treatment set-up and delivery without issues. Denies new symptoms. Energy level is essentially stable, daily routine largely unchanged. She has a long commute, but it's not bothersome as of yet. She is washing the treated area with an antibacterial soap as instructed, and moisturizing twice daily with Aveeno lotion. 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 Objective: Visit Vitals BP 156/87 (BP Location: Left arm, Patient Position: Sitting, BP Cuff Size: Small adult) Pulse 90 Temp 36.2 ???C (97.2 ???F) (Oral) Resp 16 ECOG 1, well appearing, in NAD, sitting comfortably in a chair, grossly stable exam with no signs of RT induced toxicity. Plan: Continue radiotherapy as planned. I reiterated the anticipated side effects over the next few weeks. Continue bacterial decolonization, and moisturizing at least twice a day. Patient verbalized a good understanding to everything. Alana Mendez MD Patient Care Team: Brianna Yanez MD as PCP - General Alana Mendez (Radiation Oncology) Stevie Fajardo (Pulmonary Disease) Sridhar Narayan as Referring Physician (Medical Oncology) [facility] 06-22-2023 Note [facility] a t [facility] Department of Radiation Oncology [address] [place] [address] Date of Service: 06/22/23 Patient Name: Emeli Kaufman Patient : 1960 Radiation Oncology ON-TREATMENT VISIT NOTE Diagnosis: 62 y.o. woman diagnosed in January 2023 with low-grade, ER/IL+, her2 negative invasive lobular carcinoma of the LEFT breast s/p R0 lumpectomy and SLNbx in Mar 2023 yielding pT1c pN1a(sn) G1 R0 disease, now receiving adjuvant radiotherapy to the left breast and axillary lymph nodes. Dose Accrued: Reviewed. Subjective: Patient is doing well, tolerating daily treatment set-up and delivery without issues. Denies new symptoms. Energy level is essentially stable, daily routine largely unchanged. She has a long commute, but it's not bothersome as of yet. She is washing the treated area with an antibacterial soap as instructed, and moisturizing twice daily. 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 Objective: Visit Vitals BP 128/78 (BP Location: Left arm, Patient Position: Sitting, BP Cuff Size: Adult) Pulse 78 Temp 37.1 ???C (98.7 ???F) (Oral) Resp 16 ECOG 1, well appearing, in NAD, sitting comfortably in a chair, grossly stable exam with no signs of RT induced toxicity. Plan: Continue radiotherapy as planned. I reiterated the anticipated side effects over the next few weeks. Continue bacterial decolonization, and moisturizing at least twice a day. Patient verbalized a good understanding to everything. Alana Mendez MD Patient Care Team: Brianna Yanez MD as PCP - General Alana Mendez (Radiation Oncology) Stevie Fajardo (Pulmonary Disease) Sridhar Narayan as Referring Physician (Medical Oncology) [facility] 06-22-2023 Note [employer]T INSTALLER NOTE: Emeli is accompanied by Aamir. Pt has completed 7/ fx RT to Left Breast/LN. Pt denies pain. Respirations are unlabored, O2 sat 95% RA. Pt is cleansing treatment area with antibacterial soap daily and moisturizer as directed. [facility] 05-25-2023 Note PHYSICIAN CLINICAL T REATMENT PLANNING NOTE Identification: Emeli Kaufman is a 62 y.o. female with T1c N1a M0 invasive lobular carcinoma of LEFT breast. Emeli has agreed to proceed with Radiation Therapy. The following represents the clinical treatment plan after I considered the patient???s clinical history, exam findings and relevant testing. Tests and supporting medical records were also reviewed to define the tumor location and extent of disease. Patient has not previously received radiation therapy. Patient does not have a pacemaker. ? No. Exclusions:female 53 older Radiation Therapy Planning Treatment Site 1 Treatment intent Curative Line of treatment Adjuvant Treatment site Left Breast with lymph nodes Technique IGRT and 3D SOCIAL ECONOMIST IGRT localization type Daily kV Prescribed fraction dose 2 Gy Prescribed total dose 50 Gy Prescribed number of fractions 25 Frequency Every 1 day Energy MV Patient position Supine, head first Immobilization Cradle, Gating and Breath Hold Boost Details Boost treatment included Yes Boost treatment site Left Partial breast Boost technique Electron Beam Boost prescribed fraction dose 2 Gy Boost prescribed total dose 10 Gy Boost prescribed number of fractions 5 Boost frequency Every 1 day Boost energy MeV I am ordering CT guidance for placement of XRT koch Yes Scan area: lower neck and thorax Isocenters: tentative isocenter Slice thickness: 3mm [facility] Scan requested: Yes - Simulation will be performed on CT Scanner to accomplish a reproducible treatment position, to determine optimal beam arrangements and to .design beam modifying devices and immobilization devices: Alphacradle. Verification Sim (films Day1): Yes Ongoing images: Daily image guided radiotherapy. Image fusion requested: will not be performed A 4D CT will be performed for assessment of respiratory motion and deformation of the target volume. This assessment was used to generate an internal target volume designed for maximal normal tissue sparing and reduction of ptv margins. 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 Pt has been referred by Dr. Narayan, Medical Oncologist, [facility]. Pt is s/p Lumpectomy 04/11/23. Pt states surgery was delayed due to hx of Bronchiectasis. Oncotype score 17. PT DENIES HAVING PRIOR CANCER DIAGNOSIS, PRIOR CHEMOTHERAPY OR RADIATION THERAPY. PT DENIES HAVING ANY IMPLANTABLE DEVICES OR CONNECTIVE TISSUE DISEASE. Pt denies pain. Pt has frequent dry cough. Pt states she does not have a neurologist Care Trainer present for exam. [facility] 05-25-2023 Note [facility] Department of Radiation Oncology [address] [place] [address] RADIATION ONCOLOGY CONSULTATION NOTE Date of Service: 05/25/23 Patient Name: Emeli Kaufman Patient : 1960 Diagnosis: 62 y.o. woman diagnosed in January 2023 with low-grade, ER/IL+, her2 negative invasive lobular carcinoma of the LEFT breast s/p R0 lumpectomy and SLNbx in Mar 2023 yielding pT1c pN1a(sn) G1 R0 disease. Chief Complaint: I have breast cancer. History of Present Illness: Patient presents in initial Radiation Oncology consultation as per the request of Dr. Narayan of Medical Oncology. We have been asked to evaluate the patient for radiotherapy options. Ms. Kaufman is a 62 y.o. woman diagnosed in January with early-stage invasive lobular carcinoma of the left breast, as noted above. She has been regularly getting screening mammograms which have been benign all these years; in December 2022 she palpated a mass in the left breast, thus prompting further work-up that eventually established the diagnosis in January. Patient had to have bronchoscopy to clear out my airways before she had oncologic surgery in late March. Of note, patient has a history of multiple sclerosis, has been off treatment for 12-13 years, without neurologic progression. Moreover, she has a chronic Mycobacterium avium intracellulare infection, NOS, that causes bronchiectasis, and she is under a close care of Dr. Stevie Fajardo at [facility]. Patient experiences cough whenever I lie down. I reviewed the patient's oncologic, medical, surgical, social, and family history, as well as allergies/medications as per the medical record. GynHx: Menarche 10. Used oral contraceptives 4-5 years. . Age at delivery of first child 20. Did not breast feed. Menopause early 50s. No HRT. SocHx: , lives with spouse. Does not smoke or drink alcohol. FamHx: Reviewed. Review of Systems: I reviewed the Review of Systems with the patient. Clinically pertinent ones noted in the HPI. All others have been reviewed and are negative. Physical Exam: BP 150/83 (BP Location: Right arm, Patient Position: Sitting, BP Cuff Size: Adult) Pulse 93 Temp 36.3 ???C (97.4 ???F) (Oral) Resp 16 Ht 1.651 m (5' 5 ) Wt 55.5 kg (122 lb 6.4 oz) BMI 20.37 kg/m??? GENERAL: ECOG 1-2, well-appearing, in no apparent distress, alert and fully oriented, answers questions appropriately, accompanied by spouse. HEENT: Normocephalic, atraumatic, PER, EOMI, mucous membranes moist, no suspicious asymmetry or abnormal mass lesions. NECK: No cervical or supraclavicular lymphadenopathy. LUNGS: Clear to auscultation bilaterally. HEART: Normal rate, regular rhythm. Normal S1/S2, no murmurs/rubs/gallops appreciated. BREAST: curvilinear incision in UOQ of L breast is c/d/I; no palpable mass in either breast, no LAD in axillae or supraclavicular fossae. ABD: No visceromegaly or masses. EXTREMITIES: Normal range of motion, no cyanosis/clubbing/edema. LYMPH: No appreciable adenopathy. NEURO: AOx4, credit reference clerk grossly normal, gait normal, muscle power in extremities normal. PSYCH: Appropriate affect for the clinical situation. Insight and judgment not impaired. LABS: No recent studies. RADS: 01/05/2023 BI MAMMOGRAM DIAGNOSTIC TOMOSYNTHESIS BILATERAL, BI US BREAST LIMITED LEFT: A mostly obscured asymmetric density is noted in the upper outer quadrant of the left breast at an area of palpable concern. There are no suspicious microcalcifications, or other significant changes identified elsewhere, given differences in technique and positioning. On ultrasound, at the 1 to 2 o'clock position of the axillary tail is an ill-defined heterogeneous solid ovoid nodule measuring approximately 1.3 x 0.8 x 0.6 cm. Ultrasound-guided biopsy is suggested. PATH: 04/19/2023 Left partial mastectomy (lumpectomy, upper outer quadrant) and sentinel lymph node biopsy specimens demonstrated invasive lobular carcinoma, single focus, grade 1, 1.1 x 0.6 x 0.5 cm, with associated lobular carcinoma in situ. Medial and anterior/posterior margin was less than 1 mm from invasive carcinoma. True margin, left breast, excision: No evidence of malignancy. [place] lymph nodes, left breast, excision: Metastatic lymph nodes identified, 2/2 positive for metastatic neoplasm, large size of metastatic focus 0.8 cm, no extranodal extension identified. Pathologic staging: pT1c pN1a(sn). Estrogen receptor >90% positive, progesterone receptor 20-30% positive, Ki-67 index 1%, HER2/elif 1+ IHC. 02/07/2023 left breast nodule, 1:00, ultrasound-guided core biopsy: Invasive lobular carcinoma grade 1. Assessment: 62 y.o. woman diagnosed in January 2023 with low-grade, ER/IL+, her2 negative invasive lobular carcinoma of the LEFT breast s/p R0 lumpectomy and SLNbx in Mar 2023 yielding pT1c pN1a(sn) G1 R0 disease. Plan: I explained t (more content not included)... [facility] 05-01-2023 Hospital Discharge instructions Follow Up Care 05/01/2023 10:39:18 With:Neftali Narayan Address: [address] [address] [phone] Business (1) When: Unknown Comments:Proceed with radiation oncology consult and adjuvant radiation once recommended by them.LFTS and Bone density scan now.Start Femara 2.5 mg once daily one week after completing the radiation to the left breast.Start calcium 500 mg one pill twice daily.Start vitamin D 2000 units daily.LFTs 4 weeks after starting Femara and RTC then. [facility] 04-25-2023 Hospital Discharge instructions Follow Up Care 04/25/2023 12:37:04 With:Neftali Narayan Address: [address] [address]- [phone] Business (1) When: Unknown Comments:The plan will need to do Oncotype DX scoreReferral to radiation oncology for evaluation for need for adjuvant radiation. Return in 2 to 3 weeks for oncotype DX results [facility] 03-09-2023 Note [id number]:127 [facility] 01-03-2022 Note PROCEDURE: XR FOOT R T MIN 3 VIEWS HISTORY: Cellulitis ; acute second toe pain COMPARISON: None. FINDINGS: BONES:No fracture, acute abnormality, or significant arthropathy. SOFT TISSUES:No visible soft tissue swelling. EFFUSION:None visible. OTHER: Negative. IMPRESSION: 1. No appreciable bone or soft tissue abnormality to account for patient's symptoms. Electronically authenticated by: LUCIEN BONILLA Date: 2022-01-03 17:34 [facility] Evaluation + Plan note Future Appointments Appointment Date:03/01/2023 09:00:00 AM Scheduled Provider: Location:.MAMMOGRAM Appointment Type:MA Needle Loc (FT) Appointment Date:03/01/2023 11:00:00 AM Scheduled Provider: [facility] App[facility] Type:NM Lymphoscintigraphy (FT) Appointment Date:03/01/2023 12:00:00 PM Scheduled Provider: Location:[facility] Appointment Type:Surgery FT Appointment Date:03/01/2023 02:00:00 PM Scheduled Provider: Location:.MAMMOGRAM Appointment Type:MA Diagnostic (FT) Appointment Date:03/13/2023 03:00:00 PM Scheduled Provider:Lauro Simon MD Location:[facility] Appointment Type: Post Op 15 Future Scheduled TestsMA Breast Needle Loc w/ Guidance, Left 03/01/23NM Lymphoscintigraphy 03/01/23MA Mamm Diag w/CAD if perf and 3D LT 03/01/23 [facility] Evaluation + Plan note Future Appointments Appointment Date:03/22/2023 09:00:00 AM Scheduled Provider: Location:.MAMMOGRAM Appointment Type:MA Needle Loc (FT) Appointment Date:03/22/2023 10:00:00 AM Scheduled Provider: Location:.[facility] Appointment Type:NM Lymphoscintigraphy (FT) Appointment Date:03/22/2023 01:00:00 PM Scheduled Provider: Location:[facility] Appointment Type:Surgery FT Appointment Date:03/22/2023 03:00:00 PM Scheduled [facility]: [facility] Type:MA Diagnostic (FT) Appointment Date:04/03/2023 02:00:00 PM Scheduled Provider:Lauro Simon MD Location:[facility] Appointment Type: Post Op 15 Future Scheduled TestsMA Breast Needle Loc w/ Guidance, Left 03/22/23NM Lymphoscintigraphy 03/22/23MA Mamm Diag w/CAD if perf and 3D LT 03/22/23 [facility] Evaluation + Plan note Future Appointments Appointment Date:04/03/2023 02:00:00 PM Scheduled Provider:Lauro Simon MD Location:[facility] Appointment Type: Post Op 15 [facility] Evaluation + Plan note Future Appointments Appointment Date:05/22/2023 02:00:00 PM Scheduled Provider: [facility] Type:ONC Office Visit 30 (FT) Appointment Date:07/24/2023 03:00:00 PM Scheduled Provider:Lauro Simon MD Location:[facility] Appointment Type:[address] General Surgery [place] Evaluation + Plan note Future Appointments Appointment Date:07/24/2023 03:00:00 PM Scheduled Provider:Lauro Simon MD Location:[facility] Appointment Type:[place] [address] Appointment Date:08/14/2023 02:30:00 PM Scheduled Provider: [facility] Type:ONC Office Visit 30 (FT) Future Scheduled TestsHepatic Function Panel 08/07/23BD Bone Density DEXA 05/23/23 [facility] Evaluation + Plan note Future Appointments Appointment Date:07/24/2023 03:00:00 PM Scheduled Provider:Lauro Simon MD Location:[facility] Appointment Type:[place] [address] Appointment Date:08/14/2023 02:30:00 PM Scheduled Provider: [facility] Type:ONC Office Visit 30 (FT) Future Scheduled TestsHepatic Function Panel 08/07/23 [facility] Evaluation + Plan note Future Appointments Appointment Date:08/14/2023 02:30:00 PM Scheduled Provider: Location:.ONCOLOGY Appointment Type:ONC Office Visit 30 (FT) Appointment Date:11/06/2023 03:00:00 PM Scheduled Provider:Lauro Simon MD Location:[facility] Appointment Type:[place] [address] Future Scheduled TestsHepatic Function Panel 08/07/23 [facility] General Surgery [place] Evaluation + Plan note Future Appointments Appointment Date:09/04/2023 02:30:00 PM Scheduled Provider:Neftali Narayan MD Location:FT.ONCOLOGY Appointment Type:ONC Office Visit 30 (FT) Appointment Date:11/06/2023 03:00:00 PM Scheduled Provider:Lauro Simon MD Location:[facility] Appointment Type:[address] Evaluation + Plan note Future Appointments Appointment Date:11/06/2023 03:00:00 PM Scheduled Provider:Lauro Simon MD Location:[facility] Appointment Type:[facility] Appointment Date:12/04/2023 02:30:00 PM Scheduled Provider:Neftali Narayan MD Location:FT.ONCOLOGY Appointment Type:ONC Office Visit 30 (FT) Future Scheduled TestsIFE and PE, Serum 12/03/23Immunoglobs. A/E/G/M 12/03/23Free K+L Lt Chains,Qn,S 12/03/23CBC w/ Auto Diff 12/03/23Comprehensive Metabolic Panel 12/03/23 [facility] Evaluation + Plan note Future Appointments Appointment Date:12/04/2023 02:30:00 PM Scheduled Provider:Neftali Narayan MD Location:FT.ONCOLOGY Appointment Type:ONC Office Visit 30 (FT) Appointment Date:02/05/2024 03:00:00 PM Scheduled Provider:Lauro Simon MD Location:[facility] Appointment Type:[place] [address] Future Scheduled TestsIFE and PE, Serum 12/03/23Immunoglobs. A/E/G/M 12/03/23Free K+L Lt Chains,Qn,S 12/03/23CBC w/ Auto Diff 12/03/23Comprehensive Metabolic Panel 12/03/23 [facility] Evaluation + Plan note Future Appointments Appointment Date:12/04/2023 02:30:00 PM Scheduled Provider:Neftali Narayan MD Location:FT.ONCOLOGY Appointment Type:ONC Office Visit 30 (FT) Appointment Date:02/05/2024 03:00:00 PM Scheduled Provider:Lauro Simon MD Location:[facility] Appointment Type:[facility] 15 Diagnostic Tests PendingIFE and PE, Serum 11/20/23Immunoglobs. A/E/G/M 11/20/23Free K+L Lt Chains,Qn,S 11/20/23 [facility] Evaluation + Plan note Future Appointments Appointment Date:02/05/2024 03:00:00 PM Scheduled Provider:Lauro Simon MD Location:[facility] Appointment Type: Established 15 Appointment Date:03/04/2024 03:30:00 PM Scheduled Provider:Neftali Narayan MD Location:FT.ONCOLOGY Appointment Type:ONC Office Visit 30 (FT) Future Scheduled TestsComprehensive Metabolic Panel 02/26/24 [facility] Evaluation + Plan note Future Appointments Appointment Date:03/11/2024 03:00:00 PM Scheduled Provider:Neftali Narayan MD Location:FT.ONCOLOGY Appointment Type:ONC Office Visit 30 (FT) Appointment Date:05/27/2024 03:00:00 PM Scheduled Provider:Lauro Simon MD Location:[facility] Appointment Type: Established 15 [facility] Evaluation note Diagnosis Multiple sclerosis (HCC)- Primary Multiple sclerosis [facility] Narr[facility] No data available for this section [facility] No data available for this section [facility] No data available for this section [facility] Summary Purpose Family History No Family History Records FoundNo Family History Records Found No data available for this section No data available for this section No data available for this section No data available for this section No data available for this section No data available for this section No data available for this section No data available for this section No data available for this section No Family History Records Found No data available for this section No data available for this section No Family History Records Found No data available for this section No data available for this section No Family History Records FoundNo Family History Records FoundNo Family History Records FoundNo Family History Records Found Advance Directives No Advanced Directives Records FoundNo Advanced Directives Records FoundNo Advanced Directives Records FoundNo Advanced Directives Records FoundNo Advanced Directives Records FoundNo Advanced Directives Records FoundNo Advanced Directives Records FoundNo Advanced Directives Records Found Additional Source Comments INFORMATION SOURCE (unrecogn ized section and content) DATE CREATED AUTHOR 01/01/2022 [facility] dical Specialist DATE CREATED AUTHOR AUTHOR'S ORGANIZ ATION 12/23/2022 [facility] DATE CREATED AUTHOR AUTHOR'S ORGANIZ ATION 11/09/[address] [facility] DATE CREATED AUTHOR AUTHOR'S ORGANIZ ATION 02/22/2024 [facility] DATE CREATED AUTHOR AUTHOR'S ORGANIZ ATION 02/28/2024 [facility] DATE CREATED AUTHOR AUTHOR'S ORGANIZ ATION 03/03/2024 [facility] DATE CREATED AUTHOR AUTHOR'S ORGANIZ ATION 03/05/2024 [facility] dical Specialists EPIC Patient Care team informatio n (unrecognized section and content) [address] Pressman Relationship Specialty Start Date End Date Brianna Yanez MD PCP - General Family Medicine 09/09/10 Source Comments (unrecognize d section and content) In the event this informatio n is protected by the Federal Confidentiality of Alcohol and Drug Abuse Patient Records regulations: The Federal rules restrict any use of the information to criminally investigate or prosecute any alcohol or drug abuse patient.[facility] Reason for Visit (unrecogniz ed section and content) Reason Comments New Patient Evaluation FOR RECORDS PERTAINING TO PATIENTS WHO ARE OR HAVE BEEN ENROLLED IN A CHEMICAL DEPENDENCY/SUBSTANCEABUSE PROGRAM, SOME INFORMATION MAY BE OMITTED. This clinical summary was aggregated from multiple sources. Caution should be exercised in using it in the provision of clinical care. This summary normalizes information from multiple sources, and as a consequence, information in this document may materially change the coding, format and clinical context of patient data. In addition, data may be omitted in some cases. CLINICAL DECISIONS SHOULD BE BASED ON THE PRIMARY CLINICAL RECORDS. [facility]. provides no warranty or guarantee of the accuracy or completeness of information in this document.
== END 2024-03-08 12:48 | disposition home or self-care (01) ==
LOC: PST 12:48
PROVIDERS: PCP Family Medicine; Visit Provider Internal Medicine
DX: Z01.810 Encounter for preprocedural cardiovascular examination (principal); J47.9 Bronchiectasis, uncomplicated; J98.09 Other diseases of bronchus, not elsewhere classified
CPT/HCPCS: 93005

== ENCOUNTER 2024-03-14 06:17 | Day surgery (SDC) | payer MEDICARE, OTHER, SELFPAY ==
[2024-03-08 13:20] VITALS: BP 133/81; PULSE 90; TEMP 36.2; O2SAT 97; BMI 20.3
[2024-03-14 06:20] VITALS: BP 142/69; PULSE 88; TEMP 36.4; O2SAT 93; BMI 20.3
--- OUTSIDE RECORDS SUMMARY | 2024-03-14 06:20 | XMS_ITS | CCD ---
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 Name Role Phone VAIBHAVY ., DR REED [...] Primary Care Physician ALANA MENDEZ Attending Unavaila ble HADZITORREYMETGERTRUDE, ALANA Referring Unavaila abelino MENDEZ, ALANA Attending Unavaila ble KELIN ROSENBERG Attending Unavailable HADZIAHMETGERTRUDE, ALANA Attending Unavaila ble FREKELIN BLETRE Attending Unavailable HADZIAHMETOVIC, MERSIHA Attending Unavaila ALANA De León Attending Unavaila Brianna Benjamin MD Primary Care Provider [phone] SELF Referring Unavailable CHRIS BAUM Attending Unavailable BRIANNA YANEZ Primary Care Unavailable Muna Amaro Attending Unavailable Muna Amaro Admitting Unavailable RINKES, MICHAEL E Referring Unavailable Lauro Simon. Attending Unavailable Al-Marrawi, Mhd Yaser Admitting Unavailabl e Al-Marrawi, Mhd Yaser Attending Unavailabl e Al-Marrawi, Mhd Yaser Attending Unavailabl e Al-Marrawi, Mhd Yaser Admitting Unavailabl e MoLauro kaufman E. Attending Unavailable Al-Marrawi, Mhd Yaser Attending Unavailabl e Al-Marrawi, Mhd Yaser Referring Unavailabl e Al-Marrawi, Mhd Yaser Admitting Unavailabl e Kaceybossuellen, Muna Fuentes Attending Unavailable Sondra, Muna Fuentes Admitting Unavailable Al-Marrawi, Mhd Yaser Attending Unavailabl e Al-Marrawi, Mhd Yaser Admitting Unavailabl e Al-Marrawi, Mhd Yaser Attending Unavailabl e Al-Marrawi, Mhd Yaser Attending Unavailabl e Al-Marrawi, Mhd Yaser Attending Unavailabl e MoLauro kaufman Referring Unavailable Lauro Simon. Attending Unavailable Al-Marrawi, Neftali Yaser Attending Unavailabl e Muna Amaro Attending Unavailable Tee Lobato Consulting Unavailable Lauro Simon. Attending Unavailable Lauro Simon. Referring Unavailable MoLauro kaufman E. Admitting Unavailable CheryleTee L Consulting Unavailable CheryleTee L Consulting Unavailable Cheryle, Tee L Consulting Unavailable Cheryle, Tee Perez Consulting Unavailable Cheryle, Tee L Consulting Unavailable Cheryle, Tee L Consulting Unavailable Cheryle, Tee L Consulting Unavailable Cheryle, Tee Perez Consulting Unavailable CheryleTee Consulting Unavailable Lauro Simon Attending Unavailable MoLauro kaufman Attending Unavailable MoLauro kaufman. Attending Unavailable Lauro Simon Attending Unavailable Allergies Allergy Classification Reported Allergen(s) Allergy Type Date of Onset Reaction(s) Facility (1 source) ALLERGIES NOT ON FILE; Translations: [ALLERGIES NOT ON FILE] Propensity to adverse reactions (disorder) [facility] Repository (2 sources) No Known Medication Allergies; Translations: [No Known Medication Allergies] Propensity to adverse reactions (disorder) [facility] Repository Medications Current Medications Medication Drug Class(es) [...] 2 spray(s) nasal route twice daily Ipratropium [place] (ATROVENT) 0.03 % nasal spray Indications: Chronic vasomotor rhinitis Use 2 Sprays in each nostril twice daily. for up to three(3) weeks 1 Bottle 1 07/19/2017 Active letrozole 2.5 mg oral tablet (12 sources) Aromatase Inhibitor Start: 12-04-2023 take 1 tablet by mouth once daily letrozole 2.5 mg Tab 2.5 mg = 1 tab(s), Oral, Daily, # 90 tab(s), Refills(s) 1, Pharmacy: [facility]/pharmacy #[id number], 165, cm, 12/04/23 14:36:00 EDT, Height/Length Dosing, 54.8, kg, 12/04/23 14:36:00 EDT, Weight Dosing Start Date: 12/04/23 Status: Ordered Start: 05-22-2023 End: 11-18-2023 take 1 tablet by mouth once daily Femara 2.5 mg Tab 2.5 mg = 1 tab(s), Oral, Daily, Do not start until 1 week after radiation is finished., X 30 day(s), # 30 tab(s), Refills(s) 5, Pharmacy: [facility]/pharmacy #[id number], 165, cm, 05/22/23 14:14:00 EST, Height/Length Dosing, 56, kg, 05/22/23 14:14:00 EST, Weight Dosing Start Date: 05/22/23 Stop Date: 11/18/23 Status: Ordered levoFLOXacin 500 mg oral tablet (6 sources) Quinolone Antimicrobial Start: 11-06-2023 levofloxacin 500 mg Tab 10 tab(s), 0 Refill(s), Refills(s) 0 Start Date: 11/06/23 Status: Ordered Nebulizer and Compressor For Neb magdi (1 source) Start: 10-04-2016 Nebulizer and Compressor For Neb magdi Indications: Bronchiectasis without complication (HCC) , Chronic cough 1 Device as needed. Use as directed. 1 Device 0 10/04/2016 Active predniSONE (14 sources) Start: 05-01-2023 predniSONE Refills(s) 0 Start [...] taking., # 12 tab(s), Refills(s) 1, Pharmacy: [facility]/pharmacy #[id number], 165, cm, 09/04/23 14:48:00 EST, Height/Length Dosing, 56.1, kg, 09/04/23 14:48:00 EST, Weight Dosing Start Date: 09/04/23 Status: Ordered Sodium Chloride (18 sources) Start: 02-22-2023 Sodium Chloride, Inhalation 0.9% inhalation solution 1 dose, Inhalation, Daily, Other (see comment) Start Date: 02/22/23 Status: Ordered sodium chloride 0.9 % nebulizer solution Use 3 mL via nebulizer as needed. 0 Active Completed/Discontinued Medications Medication Drug Class(es) Dates Sig (Normalized) Sig (Original) alendronic acid 70 mg oral tablet (6 sources) Bisphosphonate Start: 01-05-2024 take 6-8 [oz_av] by mouth once daily alendronate 70 mg Tab 70 mg = 1 tab(s), Oral, q7day, with 6-8 oz plain water, at least 30 minutes before first food, beverage, or medication of the day, # 12 tab(s), Refills(s) 1, Pharmacy: [facility]/pharmacy #[id number], 165, cm, 12/04/23 14:36:00 EDT, Height/Length [...] day, # 12 tab(s), Refills(s) 1, Pharmacy: [facility]/pharmacy #[id number], 165, cm, 09/04/23 14:48:00 EST, Height/Length Dosing, 56.1, kg, 09/04/23 14:48:00 EST, Weight Dosing Start Date: 09/19/23 Status: Ordered latanoprost 0.05 mg/ml ophthalmic solution (18 sources) Prostaglandin Analog Start: 01-30-[address] Opth 0.005% Nita 1 drop(s), Eye-Both, qPM, Refill(s) 0, Other (see comment) Start Date: 01/30/23 Status: Ordered take 1 drop(s) into the eye(s) once daily at bedtime latanoprost (XALATAN) 0.005 % ophthalmic solution Use 1 Drop in both eyes daily at bedtime. 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 02-22-2023 Episodic Cancer of breast (20 sources) Malignant tumor of breast ; Translations: [Malignant neoplasm of unspecified site of left female breast] Onset: 05-01-2023 02-20-2023 Chronic Cancer of breast (14 sources) Personal history of malignant neoplasm of breast; Translations: [History of malignant neoplasm of breast] Onset: 08-07-2023 Episodic Chronic obstructive pulmonary disease and bronchiectasis (20 sources) Bronchiectasis, uncomplicated; Translations: [Chronic obstructive pulmonary disease, unspecified] Onset: 09-14-2016 Chronic Multiple sclerosis (19 sources) Multiple sclerosis; Translations: [Multiple sclerosis] Onset: [...] Onset: 09-04-2023 Episodic Other lower respiratory disease (16 sources) H/O: respiratory disease 02-24-2023 Episodic Other screening for suspected conditions (not mental disorders or infectious disease) (20 sources) Encounter for screening for malignant neoplasm of rectum; Translations: [Mammography abnormal] Onset: 07-12-2022 Episodic Pneumonia (except that caused by tuberculosis or sexually transmitted disease) (19 sources) Pneumonia; Translations: [Pneumonia, unspecified organism] Onset: 09-14-2016 02-22-2023 Episodic Unclassified (1 source) CONTACT W/AND (SUSP) EXPOS COVID-19; Translations: [CONTACT W/AND (SUSP) EXPOS COVID-19] Onset: 09-18-2022 Unclassified (17 sources) Body mass index 20-24 - normal [...] Reference Range Facility BI MAMMOGRAM SCREENING TOMOS YNTHESIS BILATERALon 03-01-2024 BI MAMMOGRAM SCREENING TOMOSYNTHESIS BILATERAL [...] IS VERY IMPORTANT TO YOUR HEALTH. THE [employer] GUIDELINES RECOMMEND THAT WOMEN 40 [...] 02-26-2024 Albumin [Mass/Vol] 4.1 g/dL Normal 3.3-5.0 [facility] Comment on above: Performed By: #### 2 [id number] #### [facility] [address] [place] [address] Albumin/Globulin (S) [Mass conc ratio] 1.1 Normal 1.1-2.2 [facility] Comment on above: Performed By: #### 2 [id number] #### [facility] [address] [place] [address] ALP [Catalytic activity/Vol] 47 Int._Unit/L Normal 21-98 [facility] Comment on above: Performed By: #### 2 [id number] #### [facility] [address] [place] [address] ALT No additional P-5'-P [Catalytic activity/Vol] 9 Int._Unit/L Normal 6-46 [facility] Comment on above: Performed By: #### 2 093514 #### [facility] [address] [place] [address] Anion gap [Moles/Vol] 11 mmol/L Normal 6-16 [facility] Comment on above: Performed By: #### 2 [id number] #### [facility] [address] [place] [address] AST [Catalytic activity/Vol] 16 Int._Unit/L Normal 5-43 [facility] Comment on above: Performed By: #### 2 [id number] #### [facility] [address] [place] [address] Bilirubin [Mass/Vol] 0.4 mg/dL Normal 0.0-1.1 [facility] Comment on above: Performed By: #### 2 471945 #### [facility] [address] [place] [address] Calcium [Mass/Vol] 9.8 mg/dL Normal 8.9-11.1 [facility] Comment on above: Performed By: #### 2 692555 #### [facility] [address] [place] [address] Chloride [Moles/Vol] 102 mmol/L Normal 101-111 [facility] Comment on above: Performed By: #### 2 [id number] #### [facility] [address] [place] [address] CO2 [Moles/Vol] 27 mmol/L Normal 21-31 [facility] Comment on above: Performed By: #### 2 920542 #### [facility] [address] [place] [address] Creatinine [Mass/Vol] 0.6 mg/dL Normal 0.5-1.3 [facility] Comment on above: Performed By: #### 2 572324 #### [facility] [address] [place] [address] Globulin (S) [Mass/Vol] 3.7 g/dL Normal 1.4-4.0 [facility] Comment on above: Performed By: #### 2 017735 #### [facility] [address] [place] [address] Glucose [Mass/Vol] 67 mg/dL Normal 55-199 [facility] Comment on above: Performed By: #### 2 060657 #### [facility] [address] [place] [address] Potassium [Moles/Vol] 4.2 mmol/L Normal 3.5-5.3 [facility] Comment on above: Performed By: #### 2 520326 #### [facility] [address] [place] [address] Protein [Mass/Vol] 7.8 g/dL Normal 6.0-7.8 [facility] Comment on above: Performed By: #### 2 578088 #### [facility] [address] [place] [address] Sodium [Moles/Vol] 136 mmol/L Normal 135-145 [facility] Comment on above: Performed By: #### 2 934860 #### [facility] [address] [place] [address] Urea nitrogen [Mass/Vol] 15 mg/dL Normal 5-21 [facility] Comment on above: Performed By: #### 2 575359 #### [facility] [address] [place] [address] Urea nitrogen/Creatinine [Mass ratio] 25 No Units High 10-20 [facility] Comment on above: Performed By: #### 2 257054 #### [facility] [address] [place] [address] General Surgery Office/Clini c Noteon 02-26-2024 General Surgery Office/Clinic Note General Surgery Office/Clinic Note Chief Complaint Hormone positive left breast cancer surveillance visit HPI Staff Emeli is a 63 y.o. female here for 3 month follow up Hx of left breast cancer s/p [place] Node biopsy of left done 04/11/2023 Denies [...] E&M of Est. Patient Low 20-29 Min 03481 Personal history of malignant neoplasm of breast (Z85.3: Personal history of malignant neoplasm of breast) As above Portions of this record may have been created with voice recognition artificial intelligence software, specifically Brightcove, SureWaves and or [employer]. Substitutions may have occurred due to the [...] 50,000 intl units (1.25 mg) oral capsule, [address] International_Unit= 1 cap(s), Oral, qWeek Allergies No [...] influenza virus vaccine, inactivated 07/14/2014 Recorded Normal [facility] Comment on above: Result Comment: Elec tronically Signed By: Aurora RICE, Lauro Peacock\Date and Time Signed: 02/26/24 14:44 EDT eGFRon 02-26-2024 eGFR 99 mL/min/1.73 m2 Normal >=59 [facility] Comment on above: Order Comment: Order added by Discern Expert. Performed By: #### 1 [id number] #### [facility] [address] [place] [address] CNOVon 02-20-2024 CNOV Office Visit (NEMN ) EMELI KAUFMAN ([id number]) 1960 F Date Time Provider Department 02/20/24 1:00 PM CHRIS BAUM During your visit today, we recorded the following information about you: Pulse Blood pressure Weight Height 83/minute 133/81 59 kg 1.651 m Chris Baum MD 02/20/2024 5:38 PM Signed [facility] FOLLOWUP/ESTABLISHED PATIENT VISIT Also followed by: Brianna [...] Flowsheet Row Office Visit from 02/20/2024 in [facility] Office Visit from 07/01/2015 in [facility] Office Visit from 05/28/2014 in [facility] Upper Extremity Domain T Score 57 47.9 56.84 Lower Extremity Domain T Score 50 48.92 55.49 Cognitive Function Domain T Score 67 -- -- Positive Affect Well Being T Score -- -- -- Ability To Participate In Social Roles T Score 56 -- -- Satisfaction With Social Roles T Score 62 -- -- Neuro-QoL Symptoms (higher=worse symptoms) Flowsheet [facility] Office Visit from 02/20/2024 in [facility] Office Visit from 07/01/2015 in [facility] Office Visit from 05/28/2014 in [facility] Sleep Domain T Score 32 38.15 [...] without mention of status migrainosus, Multiple sclerosis ([facility]), Pulmonary infiltrate, and Sciatica. She has no past medical history of Atrial fibrillation ([facility]), Cancer ([facility]), Chronic obstructive pulmonary disease (COPD) ([facility]), Chronic renal insufficiency, Congestive heart failure ([facility]), Coronary artery disease, Depression, Diabetes ([facility]), Epilepsy ([facility]), Hypertension, Obstructive sleep apnea, Steroid long-term use, Stroke ([facility]), or Substance abuse ([facility]). has a current medication list which includes the following prescription(s): letrozole, latanoprost, cholecalciferol, calcium carbonate, sodium chloride, albuterol, ipratropium bromide, and nebulizer and compressor for neb. EXAM: BP 133/81 Pulse 83 Ht 165.1 cm (5' 5 ) Wt 59 kg (130 lb) BMI 21.63 kg/m? MSPT Results Flowsheet [facility] Office Visit from 12/11/2015 in [facility] Office Visit from 07/01/2015 in [facility] Office Visit from 05/28/2014 in [facility] Processing Speed Total Number Correct -- [...] Muscle tone: (more content not included)... Normal [facility] Oncology Progress Noteon Oncology Progress Note Chief [...] left breast invasive lobular carcinoma, ER +90%, [place] +20 to 30%, HER2/elif 1+, and Ki67 was positive 1%. 2 out of 2 sentinel lymph node with positive for macro metastatic disease. Her tumor was discussed at the [facility] tumor board patient is to obtain Oncotype [...] Lumpectomy with wire-guided localization LYMPH NODE SAMPLING: [place] lymph node(s) SPECIMEN INTEGRITY: multiple specimens (A [...] invasive tumor cells, performed on previous biopsy (6415), please refer to previous report for details PROGESTERONE RECEPTOR: 20-30% of invasive tumor cells, performed on previous biopsy (965), please refer to previous report for details Ki-67 INDEX OF INVASIVE TUMOR CELLS: Approximately 1% of invasive tumor cells, performed on previous biopsy (813), please refer to previous report for details HER2/ELIF STUDIES: 1+ ([facility]), performed on previous biopsy (571), please refer to previous report for details [...] to adjuv (more content not included)... Normal [facility] Consent for Treatmenton 11-15 Consent for Treatment [id number] Normal [facility] Immunoglobs. A/E/G/Mon 11-26 IgA Quant duplt test Invalid Interpretation Code [facility] Comment on above: Performed By: #### 1 1939168, [id number], 23117315, 9445909, 01698811, 0019114 ####[facility] [address] [place] [address] IgG Quant duplt test Invalid Interpretation Code [facility] Comment on above: Performed By: #### 1 5351592, 689139439, 12417480, 7453765, 97443278, 0808568 ####[facility] [address] [place] [address] IgM Quant duplt test Invalid Interpretation Code [facility] Comment on above: Performed By: #### 1 5592675, 669044524, 68582425, 9492550, 68640483, 9991871 ####[facility] [address] [place] [address] Free K+L Lt Chains,Qn,Son Immunoglobulin light chains.kappa.free (S) [Mass/Vol] 32.2 mg/L High 3.3-19.4 [facility] Comment on above: Performed By: #### 1 9176210, 079755637, 82073730, 0839512, 77529800, 3928165 ####[place] [address] Immunoglobulin light chains.kappa.free/Immun oglobulin light chains.lambda.free (S) [Mass ratio] 1.11 Invalid Interpretation Code 0.26-1.65 [facility] Comment on above: Result Comment: Perf ormed at: [facility] [address] [place], [place] [id number] PhD Adelfo Shannon Performed By: #### 1 6581755, 198063909, 38797061, 3082080, 73190641, 9839424 ####[address] [address] Immunoglobulin light chains.lambda.free [Mass/Vol] 28.9 mg/L High 5.7-26.3 [facility] Comment on above: Performed By: #### 1 5478534, 199553900, 81771046, 0220150, 49214127, 2492852 ####[address] [address] JULIO and PE, Serumon 11-26-19 24 Albumin [Mass/Vol] 3.6 g/dL Invalid Interpretation Code 2.9-4.4 [facility] Comment on above: Performed By: #### 1 0446735, 273031545, 74312634, 8010704, 16310843, 1391535 ####[address] [address] Albumin/Globulin [Mass ratio] 0.9 {ratio} Invalid Interpretation Code 0.7-1.7 [facility] Comment on above: Performed By: #### 1 1452226, 452103157, 65283402, 3190625, 31274978, 5868395 ####[place] [place] [address] Alpha 1 globulin Elph [Mass/Vol] 0.4 g/dL Invalid Interpretation Code 0.0-0.4 [facility] Comment on above: Performed By: #### 1 6231128, 088343164, 04844650, 0484187, 88761364, 4028678 ####[facility] [address] [place] [address] Alpha 2 globulin Elph [Mass/Vol] 0.9 g/dL Invalid Interpretation Code 0.4-1.0 [facility] Comment on above: Performed By: #### 1 8522926, 784317215, 09733318, 3786524, 38681074, 0483520 ####[facility] [address] [place] [address] Beta globulin Elph [Mass/Vol] 1.2 g/dL Invalid Interpretation Code 0.7-1.3 [facility] Comment on above: Performed By: #### 1 4177553, 170926773, 55524730, 0493586, 63560409, 6266083 ####[facility] [address] [place] [address] Gamma globulin Elph [Mass/Vol] 1.7 g/dL Invalid Interpretation Code 0.4-1.8 [facility] Comment on above: Performed By: #### 1 4975226, 746424543, 05855020, 2814405, 95705026, 7312435 ####[facility] [address] [place] [address] Globulin (S) [Mass/Vol] 4.2 g/dL High 2.2-3.9 [facility] Comment on above: Performed By: #### 1 6333957, 530308275, 45818298, 6411345, 99390152, 7373158 ####[facility] [address] [place] [address] IgA [Mass/Vol] 552 mg/dL High 87-352 [facility] Comment on above: Performed By: #### 1 9404331, 409316571, 67266438, 9676972, 03483473, 6899001 ####[facility] [address] [place] [address] IgG [Mass/Vol] 1650 mg/dL High 586-1602 [facility] Comment on above: Performed By: #### 1 6141231, 225832008, 95783018, 2578937, 46506289, 5012945 ####[facility] [address] [place] [address] IgM [Mass/Vol] 112 mg/dL Invalid Interpretation Code [facility] Comment on above: Performed By: #### 1 5539705, 824708335, 50706346, 4781230, 87810684, 3739858 ####[facility] [address] [place] [address] Interpretation IEP [Interp] Comment Invalid Interpretation Code [facility] Comment on above: Result Comment: No m onoclonality detected. Performed By: #### 1 7551116, 171820200, 08683634, 7960900, 43443776, 7550600 ####[address] [place] [address] Laboratory comment Yossi (Report) Comment Invalid Interpretation Code [facility] Comment on above: Result Comment: Prot ein electrophoresis scan will follow via computer, mail, or valve repairer delivery. Performed at: [address] [id number] PhD Adelfo Shannon Performed By: #### 1 7941667, 701486734, 35286444, 1712855, 91485760, 2136910 ####[address] [place] [address] Protein [Mass/Vol] 7.8 g/dL Invalid Interpretation Code 6.0-8.5 [facility] Comment on above: Performed By: #### 1 5132478, 164894794, 26044608, 3578433, 16934502, 4028935 ####[facility] [address] [place] [address] Protein.monoclonal Elph [Mass/Vol] Not Observed Invalid Interpretation Code Not Observed [facility] Comment on above: Performed By: #### 1 1596997, 848484415, 22499765, 8527842, 80822885, 2679723 ####[facility] [address] [place] [address] Immunoglobs. A/E/G/Mon 11-25 IgE Qn 21 International_Unit/mL Invalid Interpretation Code 6-495 [facility] Comment on above: Result Comment: Perf ormed at: [facility] [address] [id number] MD José Miguel Shipman Performed By: #### 1 1859765, 590317182, 48114149, 2480178, 49727639, 3816017 ####[facility] [address] [place] [address] CBC w/ Auto Diffon 4 Basophils/100 WBC (Bld) 0.6 % Normal 0.0-2.0 [facility] Comment on above: Performed By: #### 1 5321276, 617474356, 76597740, 5352007, 53778486, 2997635 ####[facility] [address] [place] [address] Basophils/Leukocytes Auto (Bld) [Pure # fraction] 0.0 E9/L Normal 0.0-0.2 [facility] Comment on above: Performed By: #### 1 1668151, 837311534, 39144538, 2717558, 39694920, 4180312 ####[facility] [address] [place] [address] Eosinophils (Bld) [#/Vol] 0.0 E9/L Normal 0.0-0.5 [facility] Comment on above: Performed By: #### 1 4061969, 758097587, 58557100, 7056225, 85802751, 6735036 ####[facility] [address] [place] [address] Eosinophils/100 WBC (Bld) 0.9 % Normal 0.0-8.0 [facility] Comment on above: Performed By: #### 1 2656039, 443949905, 25213114, 7996321, 71061220, 0852770 ####[address] [place] [address] Erythrocyte distribution width (RBC) [Ratio] 14.3 % High 10.9-14.2 [facility] Comment on above: Performed By: #### 1 6201821, 902081242, 02909931, 9600591, 89180719, 9953746 ####[address] [place] [address] Hematocrit (Bld) [Volume fraction] 37.7 % Normal 34.0-46.0 [facility] Comment on above: Performed By: #### 1 8722797, 496755976, 75938736, 9784644, 63005707, 3579336 ####[address] [address] Hemoglobin (Bld) [Mass/Vol] 12.2 g/dL Normal 12.0-16.0 [facility] Comment on above: Performed By: #### 1 2554375, 583687427, 47147090, 0598846, 94232191, 6357450 ####[address] [address] Lymphocytes (Bld) [#/Vol] 0.7 E9/L Low 1.0-4.0 [facility] Comment on above: Performed By: #### 1 4880938, 814359692, 33175271, 3293468, 66780452, 5479372 ####[address] [address] Lymphocytes/100 WBC (Bld) 16.0 % Normal 14.0-50.0 [facility] Comment on above: Performed By: #### 1 0096081, 351339407, 04765452, 7327416, 91996946, 9208813 ####[address] [address] MCH (RBC) [Entitic mass] 29.4 pg Normal 27.0-34.0 [facility] Comment on above: Performed By: #### 1 2435850, 632133010, 30289306, 7021917, 37627242, 2949694 ####[place] [place] [address] MCHC (RBC) [Mass/Vol] 32.3 g/dL Normal 31.4-36.0 [facility] Comment on above: Performed By: #### 1 8500691, [id number], 74666716, 2525234, 55756458, 9314206 ####[place] 0748657 MCV (RBC) [Entitic vol] 90.9 fL Normal 80.0-100.0 [facility] Comment on above: Performed By: #### 1 9040986, 892395187, 09860194, 8905918, 45467462, 2776057 ####[place] 0748657 Monocytes (Bld) [#/Vol] 0.6 E9/L Normal 0.2-1.0 [facility] Comment on above: Performed By: #### 1 6861065, 910936156, 37256935, 2389224, 25936564, 7032325 ####[place] 0748657 Neutrophils (Bld) [#/Vol] 3.2 E9/L Normal 2.0-7.5 [facility] Comment on above: Performed By: #### 1 1521967, 324211300, 75604451, 4151623, 98463426, 9110979 ####[place] 0748657 Neutrophils/100 WBC (Bld) 68.5 % Normal 36.0-75.0 [facility] Comment on above: Performed By: #### 1 5925036, 674127554, 01347831, 0278238, 62533145, 3679350 ####[address] [address] Platelet 290.0 E9/L Normal 150.0-500.0 [facility] Comment on above: Performed By: #### 1 2218697, 733705362, 89182450, 4915270, 14116747, 6943763 ####[facility] [address] [place] [address] Platelet mean volume (Bld) [Entitic vol] 6.9 fL Normal 6.4-10.8 [facility] Comment on above: Performed By: #### 1 0818026, 489858628, 83486829, 1919642, 47897813, 7423332 ####[facility] [address] [place] [address] RBC (Bld) [#/Vol] 4.2 E12/L Low 4.3-5.9 [facility] Comment on above: Performed By: #### 1 8028426, 061171727, 93765315, 9900913, 36741266, 7915766 ####[facility] [address] [place] [address] WBC corrected for nucl RBC Auto (Bld) [#/Vol] 4.6 E9/L Normal 4.0-11.0 [facility] Comment on above: Performed By: #### 1 3023303, 147152519, 82825718, 0706130, 41744973, 4228868 ####[facility] [address] [place] [address] CHEMISTRYOrdered By: SYSTEM SYSTEM on 11-20-2023 Albumin [...] 11-20-2023 Albumin [Mass/Vol] 4.1 g/dL Normal 3.3-5.0 [facility] Comment on above: Performed By: #### 1 2736306, 252296801, 87759945, 7197922, 82088996, 5687676 ####[facility] [address] [place] [address] Albumin/Globulin (S) [Mass conc ratio] 1.0 Low 1.1-2.2 [facility] Comment on above: Performed By: #### 1 8050940, 505997212, 08098697, 3717235, 39240907, 7127050 ####[facility] [address] [place] [address] ALP [Catalytic activity/Vol] 52 Int._Unit/L Normal 21-98 [facility] Comment on above: Performed By: #### 1 7384278, 696214219, 37191422, 1460791, 07895933, 7531878 ####[facility] [address] [place] [address] ALT No additional P-5'-P [Catalytic activity/Vol] 13 Int._Unit/L Normal 6-46 [facility] Comment on above: Performed By: #### 1 5047301, 857781475, 72566985, 2838611, 38508979, 2689489 ####[address] [address] Anion gap [Moles/Vol] 11 mmol/L Normal 6-16 [facility] Comment on above: Performed By: #### 1 2747029, 606471437, 33629684, 5737846, 46511995, 1406928 ####[facility] [address] [place] [address] AST [Catalytic activity/Vol] 19 Int._Unit/L Normal 5-43 [facility] Comment on above: Performed By: #### 1 2281845, 417423363, 68610764, 4554765, 78562009, 2494043 ####[facility] [address] [place] [address] Bilirubin [Mass/Vol] 0.6 mg/dL Normal 0.0-1.1 [facility] Comment on above: Performed By: #### 1 0085395, 123897279, 21045605, 2363674, 72693884, 0534188 ####[facility] [address] [place] [address] Calcium [Mass/Vol] 9.4 mg/dL Normal 8.9-11.1 [facility] Comment on above: Performed By: #### 1 3549340, 360113496, 49836726, 4414484, 22471148, 2896902 ####[facility] [address] [place] [address] Chloride [Moles/Vol] 103 mmol/L Normal 101-111 [facility] Comment on above: Performed By: #### 1 6316258, 673695218, 91877437, 3149773, 61076373, 2855476 ####[facility] [address] [place] [address] CO2 [Moles/Vol] 28 mmol/L Normal 21-31 [facility] Comment on above: Performed By: #### 1 7088097, 863563331, 74584140, 3671570, 92415915, 7321588 ####[facility] [address] [place] [address] Creatinine [Mass/Vol] 0.6 mg/dL Normal 0.5-1.3 [facility] Comment on above: Performed By: #### 1 1125729, 066718801, 69168971, 1020556, 58180910, 5933286 ####[facility] [address] [place] [address] Globulin (S) [Mass/Vol] 4.0 g/dL Normal 1.4-4.0 [facility] Comment on above: Performed By: #### 1 8677975, 838170812, 28873095, 6495582, 19390308, 1506078 ####[facility] [address] [place] [address] Glucose [Mass/Vol] 84 mg/dL Normal 55-199 [facility] Comment on above: Performed By: #### 1 4054289, 399634818, 70288669, 1782227, 33643732, 0815633 ####[facility] [address] [place] [address] Potassium [Moles/Vol] 4.2 mmol/L Normal 3.5-5.3 [facility] Comment on above: Performed By: #### 1 0389216, 965179428, 10444088, 2908816, 49892772, 9592289 ####[facility] [address] [place] [address] Protein [Mass/Vol] 8.1 g/dL High 6.0-7.8 [facility] Comment on above: Performed By: #### 1 8346180, 248291924, 72749941, 9953178, 07326794, 7653803 ####[facility] [address] [place] [address] Sodium [Moles/Vol] 138 mmol/L Normal 135-145 [facility] Comment on above: Performed By: #### 1 6722985, 309823222, 20541215, 0068154, 83994526, 7900529 ####[facility] [address] [place] [address] Urea nitrogen [Mass/Vol] 17 mg/dL Normal 5-21 [facility] Comment on above: Performed By: #### 1 1069217, 275694260, 14521988, 7305161, 20779005, 3847571 ####[facility] [address] [place] [address] Urea nitrogen/Creatinine [Mass ratio] 28 No Units High 10-20 [facility] Comment on above: Performed By: #### 1 2029932, 453844392, 20187489, 4160369, 30853345, 3011173 ####[facility] [address] [place] [address] Consent for Treatmenton Consent for Treatment [id number] 405 [id number]#1 .00TIFF Normal [facility] HEMATOLOGYOrdered By: SYSTEM SYSTEM on 11-20-2023 Basophils/100 [...] 11-20-2023 eGFR 100 mL/min/1.73 m2 Normal >=59 [facility] Comment on above: Order Comment: Order added by Discern Expert. Performed By: #### 1 0978820, 101507252, 15116407, 0293168, 56456562, 4603516 ####[facility] [address] [place] [address] General Surgery Office/Clini c Noteon 11-14-2023 General Surgery Office/Clinic Note Chief Complaint 3 month follow up HPI Staff Emeli is a 62 y.o. female here for 3 month follow up Hx of left breast cancer s/p [place] Node biopsy of left done 04/11/2023 Denies [...] with voice recognition artificial intelligence software, specifically Brightcove, SureWaves and or XL Video. Substitutions may have occurred due to the inherent limitations of voice recognition and artificial intelligence software. ATTESTATION: Documentation services were performed after patient or guardian consented to allow [employer] to record this visit. SANTA residential lawn specialist and provider reviewed before signing. SANTA: [...] 50,000 intl units (1.25 mg) oral capsule, 75462 International_Unit= 1 cap(s), Oral, qWeek Allergies No [...] Recorded diphthe (more content not included)... Normal [facility] Comment on above: Result Comment: Elec [...] breast Your Care Team Attending Physician - Aurora RICE, Lauro Toro Primary Care Physician - Brianna Yanez MD [...] FT Oncology Monday 3:00 PM EDT With: Lauro Simon MD Where: [facility] General Surgery [facility] Insurance Correspondenceon 0 09-25-2023 Insurance Correspondence [id number]#1 .00TIFF [facility] Consent for Treatmenton 08-17 Consent for Treatment [id number]#1 .00TIFF [facility] ED Pat Eduon 09-04-2023 ED [facility] Nephrology Protein Blood Test Why am I [...] including vitamins, herbs, eye drops, creams, and kxde-qib-ybfubvn medicines. ? Any medical conditions you have. [...] units). Children ? Total protein: ? Premature infant: 4.2?7.6 g/dL. ? [place]: 4.6?7.4 g/dL. ? : 6?6.7 g/dL. ? Child: 6.2?8 g/dL. ? Albumin: ? Premature infant: 3?4.2 g/dL. ? : 3.5?5.4 g/dL. ? Infant: 4.4?5.4 g/dL. ? Child: 4?5.9 g/dL. What [...] provider. Document Revised: 03/26/2021 Document Reviewed: 03/26/2021 Elsevier Patient Education ? 2022 Doctor Evidence. Normal [facility] Oncology Progress Noteon Oncology Progress Note Chief Complaint Breast CA Pt has no major ques/concerns for doc today. Diagnoses 1. Breast cancer, left (C50.912: Malignant neoplasm of unspecified site of left female breast) Oncological History/ROS/PE/Assess ment and Plan Chief Complaint Left breast invasive lobular carcinoma, ER +90%, KY +20 to 30%, HER2/elif 1+, and Ki67 [...] left breast invasive lobular carcinoma, ER +90%, KY +20 to 30%, HER2/elif 1+, and Ki67 was positive 1%. 2 out of 2 sentinel lymph node with positive for macro metastatic disease. Her tumor was discussed at the [facility] tumor board patient is to obtain Oncotype [...] Lumpectomy with wire-guided localization LYMPH NODE SAMPLING: [place] lymph node(s) SPECIMEN INTEGRITY: multiple specimens (A [...] score of (more content not included)... Normal [facility] Outside Oncologyon 4 Outside Oncology [id number]# 1.00TIFF Normal [facility] CHEMISTRYOrdered By: SYSTEM SYSTEM on 09-01-2023 Albumin [...] for Treatmenton 08-17 Consent for Treatment [id number] 402 [id number]#1 .00TIFF Normal [facility] Hep Func Panelon 09-01-2023 Albumin [Mass/Vol] 4.0 g/dL Normal 3.3-5.0 [facility] Comment on above: Performed By: #### 2 081393 #### [facility] [address] [place] [address] Albumin/Globulin [Mass ratio] 0.9 {ratio} Low 1.1-2.2 [facility] Comment on above: Performed By: #### 2 249154 #### [facility] [address] [place] [address] Alk Phos 67 Int._Unit/L Normal 21-98 [facility] Comment on above: Performed By: #### 2 863764 #### [facility] [address] [place] [address] ALT 11 Int._Unit/L Normal 6-46 [facility] Comment on above: Performed By: #### 2 045057 #### [facility] [address] [place] [address] AST 18 Int._Unit/L Normal 5-43 [facility] Comment on above: Performed By: #### 2 242093 #### [facility] [address] [place] [address] Bili Direct 0.1 mg/dL Normal 0.0-0.4 [facility] Comment on above: Performed By: #### 2 536409 #### [facility] [address] [place] [address] Bili Indirect 0.4 mg/dL Normal 0.1-0.9 [facility] Comment on above: Performed By: #### 2 433740 #### [facility] [address] [place] [address] Bili Total 0.5 mg/dL Normal 0.0-1.1 [facility] Comment on above: Performed By: #### 2 222241 #### [facility] [address] [place] [address] Globulin (S) [Mass/Vol] 4.6 g/dL High 1.4-4.0 F [facility] Comment on above: Performed By: #### 2 709632 #### [facility] [address] [place] [address] Protein [Mass/Vol] 8.6 g/dL High 6.0-7.8 [facility] Comment on above: Performed By: #### 2 719963 #### [facility] [address] [place] [address] Ambulatory Visit Summaryon 0 08-07-2023 Ambulatory Visit Summary EMELI KAUFMAN :1960 Visit Date:08/07/2023 Ambulatory Visit Instructions Your Care Team Attending Physician - Lauro [...] Appointments Monday 2:30 PM EST With: Where: Oncology Monday 3:00 PM EDT With: Lauro Simon MD Where: [facility] General Surgery [facility] General Surgery Office/Clini c Noteon 08-07-2023 General Surgery Office/Clinic Note Chief Complaint 3 month follow up HPI Staff Emeli is a 62 y.o. female here for 3 month follow up Hx of left breast cancer s/p [place] Node biopsy of left done 04/11/2023 denies breast changes She started letrozole 2.5 mg History of Present Illness 62-year-old female status post left breast needle localized lumpectomy, left axillary sentinel lymph node biopsy performed for ER positive KY HER2 negative T1 N1 MX breast cancer 2 of 2 lymph nodes found to have metastases, low Oncotype DX with chemotherapy declined by medical oncology, completed radiation therapy at [facility] here today for breast cancer surveillance visit. [...] normal Assessment/Plan 62-year-old female with ER positive KY HER2 negative breast cancer status post needle left breast localized lumpectomy left sentinel lymph node biopsy performed March 2023 here for surveillance visit 1. Breast cancer, left (C50.912: Malignant neoplasm of unspecified site of left female breast) Follow-up 3 months Ordered: E&M of Est. Patient Low 20-29 Min 01529 2. Encounter for follow-up surveillance of breast cancer (Z08: Encounter for follow-up examination after completed treatment for malignant neoplasm) As above Ordered: E&M of Est. Patient Low 20-29 Min 77432 Portions of this record may have been created with voice recognition artificial intelligence software, specifically Brightcove, SureWaves and or XL Video. Substitutions may have occurred due to the [...] 50,000 intl units (1.25 mg) oral capsule, 15914 International_Unit= 1 cap(s), Oral, qWeek Allergies No [...] virus vaccine, inactivated 07/14/2014 Recorded Normal [facility] Comment on above: Result Comment: Elec tronically Signed By: Aurora RICE, Lauro Roabr\Date and Time Signed: 08/07/23 16:29 EST BD Bone Density DEXAon 06-01 BD Bone Density DEXA Exam Date/Time: 05/30/2023 14:43 EST Reason for Exam: M85.88;nursing home medication use Report IMPRESSION: OSTEOPENIA. The 10 [...] DEXA DATE: 05/30/2023 2:21 PM CLINICAL HISTORY: nursing home medication use, M85.88. COMPARISON: None available. COMMENTS: [...] Dale MD Transcribed by: MEAGAN Technologist: VINCE [facility] Operative Reporton 3 Operative Report [id number]# 1.00TIFF [facility] Consent for Treatmenton 05-17 Consent for Treatment [id number]#1 .00TIFF [facility] Outside Progress Noteon 05-17 Outside Progress Note [id number]# 1.00TIFF [facility] 29on 05-25-2023 29 Encounter addended by: Alana Mendez on: 05/25/2023 4:02 PM Actions taken: Letter saved Normal [facility] Orders Onlyon 05-24-2023 Orders Only [id number] Emeli Kaufman 1960 F Date Provider Department Center 05/24/2023 743-OSITO RODAS RAD ONC DCC No family history on file Normal [facility] CHEMISTRYOrdered By: SYSTEM SYSTEM on 05-22-2023 Albumin [Mass/Vol] 3.5 g/dL Normal 3.3 - 5.0 gm/dL [facility] Remisol Albumin/Globulin [Mass ratio] 0.8 {ratio} Low [...] for Treatmenton Consent for Treatment [id number] 311 [id number]#1 .00TIFF Normal [facility] Consent for Treatment [id number] 311 [id number]#1 .00TIFF Normal [facility] Hep Func Panelon 05-22-2023 Bilirubin.indirect [Mass or moles/Vol] UTC Abnormal 0.1-0.9 [facility] Comment on above: Result Comment: Resu lt verified by Discern Rule. Performed result UTC (Unable to Calculate) was sent as an Alpha code due the inability to calculate a valid numeric value. Performed By: #### 2 436024 #### [facility] [address] [place] [address] Albumin [Mass/Vol] 3.5 g/dL Normal 3.3-5.0 [facility] Comment on above: Performed By: #### 2 833449 #### [facility] [address] [place] [address] Albumin/Globulin (S) [Mass conc ratio] 0.8 Low 1.1-2.2 [facility] Comment on above: Performed By: #### 2 815906 #### [facility] [address] [place] [address] ALP [Catalytic activity/Vol] 65 Int._Unit/L Normal 21-98 [facility] Comment on above: Performed By: #### 2 320940 #### [facility] [address] [place] [address] ALT No additional P-5'-P [Catalytic activity/Vol] 13 Int._Unit/L Normal 6-46 [facility] Comment on above: Performed By: #### 2 059833 #### [facility] [address] [place] [address] AST [Catalytic activity/Vol] 20 Int._Unit/L Normal 5-43 [facility] Comment on above: Performed By: #### 2 087968 #### [facility] [address] [place] [address] Bilirubin [Mass/Vol] 0.3 mg/dL Normal 0.0-1.1 [facility] Comment on above: Performed By: #### 2 926275 #### [facility] [address] [place] [address] Globulin (S) [Mass/Vol] 4.5 g/dL High 1.4-4.0 [facility] Comment on above: Performed By: #### 2 015821 #### [facility] [address] [place] [address] Protein [Mass/Vol] 8.0 g/dL High 6.0-7.8 [facility] Comment on above: Performed By: #### 2 142959 #### [facility] [address] [place] [address] Bilirubin.direct [Mass/Vol] mg/dL Normal 0.1-0.4 [facility] Comment on above: Performed By: #### 2 769628 #### [facility] [address] [place] [address] Oncology Noteon 05-22-2023 Oncology Note Oncology Supervisor Garage Office Visit/Treatment Note Current Patient Status/Reason: Pt in with family member for scheduled clinic visit after diagnosis of breast cancer. I accompanied Dr. Narayan in room. explained Oncotype Dx findings, with understanding voiced. Pt has appt with [facility] radiation oncologist on 05/25. explained aromatase inhibitor to start 1 week after finishing radiation. Treatment Plan: [facility] radiation of breast. LFT, now and 4 [...] central scheduling dept. Pt voiced understanding. Normal [facility] Comment on above: Result Comment: Elec tronically Signed By: Matias CRAMER, Akua\.br\Date and Time Signed: 05/22/23 14:57 EST Oncology Progress Noteon Oncology Progress Note Patient: EMELI KAUFMAN Age: 62 years Sex: Female : 1960 Associated Diagnoses: None Author: Sylvain RICE, Neftali Ling Chief Complaint Left breast invasive lobular carcinoma, ER +90%, KY +20 to 30%, HER2/elif 1+, and Ki67 [...] left breast invasive lobular carcinoma, ER +90%, [place] +20 to 30%, HER2/elif 1+, and Ki67 was positive 1%. 2 out of 2 sentinel lymph node with positive for macro metastatic disease. Her tumor was discussed at the [facility] tumor board patient is to obtain Oncotype [...] Lumpectomy with wire-guided localization LYMPH NODE SAMPLING: [place] lymph node(s) SPECIMEN INTEGRITY: multiple specimens (A [...] BREAST, EXCISION: ? METASTATIC LYMPH NODES IDENTIFIED (2/). Recovering from her surgery and she is [...] adjuvant endocrine (more content not included)... Normal [facility] Patient Educationon 05-22-20 Patient Education Normal [facility] Lab Reportson 05-12-2023 Lab Reports [id number]#1 .00TIFF Normal [facility] Reference Lab Reporton 10-24 -2023 Reference Lab Report [id number]# 1.00TIFF Normal [facility] Consenton 05-03-2023 Consent [id number] #1.00TIFF Normal [facility] ONC - Otheron 05-03-2023 ONC - Other [id number] #1.00TIFF Normal [facility] General Surgery Office/Clini c Noteon 05-02-2023 General [...] with voice recognition artificial intelligence software, specifically Brightcove, SureWaves and or XL Video. Substitutions may have occurred voice recognition and artificial intelligence software. Documentation services were performed after patient or guardian consented to allow [employer] to record this visit. SANTA residential lawn specialist and provider reviewed before signing. SANTA: [...] 50,000 intl units (1.25 mg) oral capsule, 08765 International_Unit= 1 cap(s), Oral, qWeek Allergies No [...] No results were obtained or interrupted today. [facility] Comment on above: Result Comment: Elec tronically Signed By: Lauro Simon MD\.br\Date and Time Signed: 05/02/23 08:37 EDT\.br\Electronically Co-Signed By: Scarlet Neal\.br\Date and Time Co-Signed: 05/01/23 14:47 EDT\.br\Electronically Co-Signed By: Scarlet Neal\.br\Date and Time Co-Signed: 05/01/23 14:52 EDT Consent for Treatmenton 04-16 Consent for Treatment [id number]#1 .00TIFF [facility] Oncology Noteon 05-01-2023 Oncology Note Oncology Supervisor Garage Office Visit/Treatment Note Current Patient Status/Reason: Patient here with spouse for scheduled Initial Clinic Visit. I accompanied Dr. Narayan in room. Patient informs of left breast cancer - ER/KY positive. Patient has positive Lymph node. Medical history reviewed. Disease process and treatment options reviewed. Treatment Plan: Oncotype DX(per Teri/Dr. Simon's office will send), refer to Radiation-[facility] per patient's request Follow-Up Appointment Info/Referrals: 3 weeks Resources Offered: Distress thermometer of 4 discussed - no needs at this time. Distress thermometer emailed to social welfare clerk. Contact information provided to patient. Normal [facility] Comment on above: Result Comment: Elec trovianeyally Signed By: Donna CRAMER, Aundrea Perez\.marianela\Date and Time Signed: 05/01/23 12:59 EDT Oncology Progress Noteon Oncology Progress Note Patient: EMELI KAUFMAN Age: 62 years Sex: Female : 1960 Associated Diagnoses: None Author: Sylvain RICE, Neftali Ling Chief Complaint Left breast invasive lobular carcinoma, ER +90%, KY +20 to 30%, HER2/elif 1+, and Ki67 [...] left breast invasive lobular carcinoma, ER +90%, KY +20 to 30%, HER2/elif 1+, and Ki67 was positive 1%. 2 out of 2 sentinel lymph node with positive for macro metastatic disease. Her tumor was discussed at the [facility] tumor board patient is to obtain Oncotype [...] Lumpectomy with wire-guided localization LYMPH NODE SAMPLING: [place] lymph node(s) SPECIMEN INTEGRITY: multiple specimens (A [...] Negative. Ne (more content not included)... Normal [facility] Ambulatory Visit Summaryon 1 Ambulatory Visit Summary [...] EDT With: Aurora RICE, Lauro Toro Where: [facility] General Surgery [place] Normal [facility] General Surgery Office/Clini c Noteon 04-21-2023 General [...] 2 nodes with metastatic disease, margins clear ER/KY positive HER2 negative low Ki-67 index T1 cN1 Mx 1. Breast cancer, left (C50.912: Malignant neoplasm of unspecified site of left female breast) Medical oncology, follow-up in 2 weeks for wound check, Oncotype DX, patient is listed for tumor board. Ordered: [facility] Internal Ambulatory Referral Postoperative follow-up visit, related to the original procedure [id number] Follow-up No qualifying data available Problem List/Past [...] 50,000 intl units (1.25 mg) oral capsule, 46243 International_Unit= 1 cap(s), Oral, qWeek Allergies No [...] influenza virus vaccine, inactivated 07/14/2014 Recorded Normal [facility] Comment on above: Result Comment: Elec tronically Signed By: Aurora RICE, Lauro Toro\.br\Date and Time Signed: 04/21/23 09:12 EDT IntraOperative Documentson 1 IntraOperative Documents [id number] #1.00CD:127 Normal [facility] Main OR Intraoperative Recor don 04-13-2023 Main OR Intraoperative Record IntraOp Document Type FT Summary Primary Physician: Lauro Simon MD Finalized Date/Time: 04/13/23 13:34:41 Pt. Name: EMELI KAUFMAN Nehal BelcherB./Sex: 1960 Female Med Rec #: [id number] Physician: Lauro Simon MD Financial #: [id number] Pt. Type: A Room/Bed: [place] [address] Admit/Disch: 04/11/23 08:40:14 - 04/11/23 15:30:00 Institution: [...] Entry 3 Case Attendee Aurora RICE, Lauro GARDNERLauro [facility] A Role Performed Surgeon - Primary Anesthesiologist Scrub - Primary Tester Operator Helper Time In 04/11/23 11:45:00 04/11/23 11:25:00 04/11/23 11:25:00 Time Out 04/11/23 12:58:00 04/11/23 13:19:00 04/11/23 13:01:00 Procedure BREAST BIOPSY(Left), BREAST BIOPSY(Left), BREAST BIOPSY(Left), SENTINEL NODE SENTINEL NODE SENTINEL NODE BIOPSY(Left) BIOPSY(Left) BIOPSY(Left) Comments Dr. Hanson supervising Last Modified By: Iván RN, Teresa Minor RN, Teresa Minor RN, Teresa Alatorre 04/11/23 13:19:04/11/23 13::04/11/23 13:19: Entry 4 Entry 5 Entry 6 Case Attendee Iván CRAMER, Darrel Guadalupe RN, Olivia A Role Performed Prototype Technician - Primary OPEN HEARTH DOOR LINER/SA Prototype Technician - Relief Time In 04/11/23 11:25:00 04/11/23 11:25:00 04/11/23 11:50:00 Time Out 04/11/23 13:19:00 04/11/23 13:19:04/11/23 12:35:00 Procedure BREAST BIOPSY(Left), BREAST BIOPSY(Left), BREAST BIOPSY(Left), SENTINEL NODE SENTINEL NODE SENTINEL NODE BIOPSY(Left) BIOPSY(Left) BIOPSY(Left) Comments Out of room for lunch [id number] Last Modified By: Iván RN, Teresa Minor RN, Teresa Minor RN, Teresa Alatorre 04/11/23 13:19:04/11/23 13:19:04/11/23 13:: Perioperative Protocols FT Pre-Care Text: Implements protective [...] (If Applicable) PreOp Antibiotic Yes Time Out Jabari GARDNER, Lauro Edge, Given Participants uArora RICE, Lauro Toro, Iván CRAMER, Michele Pugh [...] signs and sympto (more content not included)... [facility] Postoperative Documentson Postoperative Documents [id number]#1 .00CD:127 [facility] Progress Note-Physicianon Progress Note-Physician Patient: EMELI KAUFMAN Age: 62 years Sex: Female : 1960 Associated Diagnoses: None Author: MD Valentin, Chloe Arechiga Postoperative Information Postoperative disposition: Postoperative disposition: To PACU. Optimetrix number: Optimetrix number [id number]. Anesthetic utilized: General. Health Status Allergies: Allergic [...] when meets criteria ( To home ). [facility] Comment on above: Result Comment: Elec tronically [...] Medication Allergies Current medications: (Selected) Prescriptions Prescribed [place] 325 mg-5 mg oral tablet: 1 tab(s), Oral, q6hr as needed for pain, 12 tab(s), Refill(s) 0, [facility], 165, cm, 03/01/23 11:22:00 EDT, Height/Length [...] Frequent episodes of pneumonia / SNOMED CT 857871116 / Confirmed Multiple sclerosis / SNOMED CT 67765962 / Confirmed Abnormal mammogram of left breast / SNOMED CT 605664018 / Confirmed Breast cancer, left / SNOMED CT 060606994 / Confirmed BMI 22.0-22.9, adult / SNOMED CT 8618306734 / Confirmed Personal history of bronchiectasis / SNOMED CT 696981248 / Confirmed Inactive: EVAN (mycobacterium avium-intracellulare) / SNOMED CT 8377079879 Resolved: Bronchiectasis / SNOMED CT 35918614 Histories Past Medical History: Resolved Bronchiectasis (55028983): Resolved. Family History: Procedure history: Biopsy of lymph node in left breast (32162636) on 04/11/2023 at 62 Years. Bronchoscopy (66797326) on 06/16/2021 at 60 Years. section (55807945). Biopsy of breast - left (131304447). Social History Social & Psychosocial Habits Alcohol [...] results Radiology results ECG interpretation Condition Plan [place] [employer]esthesi[employer] (ASA) physical status classification: Class II. Anesthetic Preoperative Plan Anesthesia: General. . Anesthetic plan, risks, benefits, and alternatives discussed with the patient and/or family. Risks discussed: nausea, vomiting, headache, sore throat, dental injury, serious complications. Patient verbalized understanding. Communication: face to face with patient 5 minutes. [facility] Comment on above: Result Comment: Elec tronically Signed By: MD Valentin, Chloe Arechiga\.br\Date and Time Signed: 04/13/23 09:54 EDT Consent for Anesthesiaon Consent for Anesthesia [id number] [id number]# 1.00CD:127 [facility] Discharge Instructionson Discharge Instructions [id number]# 1.00CD:127 [facility] IntraOperative Documentson 0 04-12-2023 IntraOperative Documents [id number]# 1.00CD:127 [facility] IntraOperative Documents [id number]# 1.00CD:127 [facility] Preoperative Documentson Preoperative Documents [id number]# 1.00CD:127 [facility] Provider Letteron 04-12-2023 Provider Letter April 12, 2023 [address]ELI [place] [id number] [place] [address] : 1960 To Whom It May Concern, Please excuse above patient from work. Date of Illness: From: 04/11/2023 To: 04/14/2023 May Return to Work On: 04/17/2023 Restrictions: None Comments: _ Sincerely, Lauro Simon MD [facility] General Surgery work excuse emailed to [email or web address] patient request. [facility] Consent for Procedure/Surger yon 04-11-2023 Consent for Procedure/Surgery [id number]#1 .00CD:127 Normal [facility] Consent for Treatmenton 03-18 Consent for Treatment [id number]#1 .00CD:127 [facility] Discharge Instructionson Discharge Instructions EMELI KAUFMAN :1960 Visit Date:04/11/2023 Inpatient Discharge Instructions Your Care Team Admitting Physician - Lauro Simon MD Consulting Physician - Cheryle Kam, Tee Perez Referring Physician - Lauro Simon MD Reason for Your Visit C50.832 This Is Your Medications List acetaminophen-hydroco done ([place] 325 mg-5 mg oral tablet) ergocalciferol (Vitamin [...] AM EDT With: Lauro Simon MD Where: [facility] General Surgery [facility] Comment on above: Result Comment: Elec tronically Signed By: Madi CRAMER, Rio Olson\.br\Date and Time Signed: 04/11/23 13:59 EDT H&P Updateon 04-11-2023 H&P Update [id number]#1 .00CD:127 Normal [facility] Inpatient Patient Summaryon 04-11-2023 Inpatient Patient Summary [address] [address] [facility] Clinical Discharge Instructions PERSON INFORMATION Name: EMELI KAUFMAN PHYSICIANS Admitting Physician: Lauro Simon MD Attending Physician: Lauro Simon MD PCP: Brianna Yanez MD Discharge Diagnosis: Comment: PATIENT EDUCATION INFORMATION Instructions: Lumpectomy, Care After Medication Leaflets: Follow up: With: Address: When: Lauro Simon [address] [place] [address], [place] [address], [address] [phone] Business (1) Comments: Appointment has already been scheduled Type Location Start Finish [facility] MA Needle Loc (FT) FT.MAMMOGRAM 04/11/2023 9:00 AM 04/11/2023 9:45 AM Confirmed NM Lymphoscintigraphy (FT) FT.NUCLEAR MED 04/11/2023 10:30 AM 04/11/2023 12:00 PM Confirmed GS Post Op 15 [facility] 04/21/2023 8:40 AM 04/21/2023 9:00 AM Confirmed MEDICATION LIST New Medications [facility], [address] [place], [place] [id number], [phone] acetaminophen-hydroco done ([place] 325 mg-5 mg oral tablet) 1 Tablets [...] 1 dose Inhalation every day., bronchiectasis Comment: Normal [facility] Breast Needle Loc w/ Guid ance, Lefton 04-11-2023 MA Breast Needle Loc w/ Guidance, Left Exam [...] the upper outer left breast. Ordering Provider: Lauro Simon FINAL REPORT Dictated: 04/11/2023 12:22 pm Tee Lobato M.D. Signed (Electronic Signature): 04/11/2023 12:22 pm Signed by: Tee Lobato M.D. Transcribed by: MEAGAN Technologist: [facility] Normal [facility] Surgical Specimen Lefton 04-11-2023 MA Surgical Specimen Left Exam Date/Time: 04/11/2023 12:12 [...] Tee Lobato M.D. Transcribed by: MEAGAN Technologist: [facility] Main OR PACU I Recordon 03-18 Main OR PACU I Record PACU Phase I Docum ent Type FT Summary Primary Physician: Lauro Simon MD Finalized Date/Time: 04/11/23 14:30:12 Pt. Name: CONOR KAUFMANJOSELINE Calvert D.O.B./Sex: 1960 Female Med Rec #: [id number] Physician: Lauro Simon MD Financial #: [id number] Pt. Type: A Room/Bed: [facility]/ Admit/Disch: 04/11/23 08:40:14 - Institution: Case Times [...] Outcomes Met? Yes Last Modified By: Magalys Wigigns RN 04/11/23 14:29:54 Post-Care Text: The patient [...] Signed By: Magalys Wiggins RN 04/11/23 14:30 Normal [facility] Main OR PACU II Recordon Main OR PACU II Record PACU Phase II Document Type FT Summary Primary Physician: Lauro Simon MD Finalized Date/Time: 04/11/23 15:52:51 Pt. Name: EMELI KAUFMAN/Sex: 1960 Female Med Rec #: [id number] Physician: Lauro Simon MD Financial #: [id number] Pt. Type: A Room/Bed: [place] [address] Admit/Disch: 04/11/23 08:40:14 - Institution: Case Times [...] By: Rio Barraza RN 04/11/23 15:52 Normal [facility] Main OR Preoperative Recordo n 04-11-2023 Main OR Preoperative Record PreOp Document Type FT Summary Primary Physician: Lauro Simon MD Finalized Date/Time: 04/11/23 11:39:26 Pt. Name: EMELI KAUFMAN Nehal Art/Sex: 1960 Female Med Rec #: [id number] Physician: Lauro Simon MD Financial #: [id number] Pt. Type: A Room/Bed: [place] [address] Admit/Disch: 04/11/23 08:40:14 - Institution: Case Times [...] 11:39 Teresa Minor RN 04/11/23 11:39 Normal [facility] Monitor Recordon 04-11-2023 Monitor Record [id number]# 1.00CD:127 Normal [facility] Monitor Record [id number]# 1.00CD:127 Normal [facility] NM Lymphoscintigraphyon 03-18 NM Lymphoscintigraphy Exam Date/Time: [...] Comments Dose (mCi Tc99m Lymphoseek): 593 Normal [facility] Outpatient Surgery Discharge Instructionon 04-11-2023 Outpatient Surgery Discharge Instruction [address] [address] Patient Discharge Instructions PERSON INFORMATION [...] Follow up: With: Address: When: Lauro Simon [address] [place], [place] [address]dict Savita, [facility] [address], [address] [address] [phone] Business (1) Comments: Appointment has already been scheduled Type Location Start Finish State [place] Needle Loc (FT) FT.MAMMOGRAM 04/11/2023 9:00 AM 04/11/2023 9:45 AM Confirmed NM Lymphoscintigraphy (FT) FT.NUCLEAR MED 04/11/2023 10:30 AM 04/11/2023 12:00 PM Confirmed GS Post Op 15 [facility] GS [place] 04/21/2023 8:40 AM 04/21/2023 9:00 AM Confirmed [...] to serve you. Thank you for choosing [facility] HERE ARE THE MEDICATION CHANGES THAT OCCURRED DURING YOUR HOSPITAL STAY New Medications [facility], [address] [place], [place] [id number], [phone] acetaminophen-hydroco done ([place] 325 mg-5 mg oral tablet) 1 Tablets [...] these instructions at home: Medicines ? Take ppng-hpw-dskyerv and prescription medicines only as told by [...] keep your urine pale yellow. ? Take wnpv-ocj-ltolxdo or prescription medicines. ? Eat foods that are high in fiber, such as beans, whole grains, and fresh fruits and vegetables. ? Limit foods that are high in fat and processed sugars, such as fried or sweet foods. Incision care ? Follow instructio (more content not included)... Normal [facility] Patient Education - Texton 0 04-11-2023 Patient [...] these instructions at home: Medicines ? Take zyub-bar-gujmmjt and prescription medicines only as told by [...] keep your urine pale yellow. ? Take indw-cve-icuqlbj or prescription medicines. ? Eat foods that [...] and water are not available, use hand animal biologist. ? Change your dressing as told by [...] ? Pus (more content not included)... [facility] RAD - Consent to Procedureon 04-11-2023 RAD - Consent to Procedure [id number]# 1.00CD:127 [facility] Consultation Noteon 04-06-20 Consultation Note [id number]#1 .00CD:127 Normal [facility] Consultation Noteon 03-31-20 Consultation Note [id number]#1. 00CD:127 [facility] Operative Reporton Operative Report [id number]#1. 00CD:127 [facility] RAD - CT Reporton 03-31-2023 RAD - CT Report [id number]#1 .00CD:127 [facility] Insurance Correspondenceon 0 03-15-2023 Insurance Correspondence [id number]#1 .00CD:127 [facility] CHEMISTRYOrdered By: SYSTEM SYSTEM on 02-22-2023 Anion gap [Moles/Vol] 11 mmol/L Normal 6 - 16 mEq/L [facility] Remisol Chloride [Moles/Vol] 105 mmol/L Normal 101 - 1 11 mmol/L FT Remisol CO2 [Moles/Vol] 26 mmol/L Normal 21 - 31 mmol/L FT Remisol Creatinine [Mass/Vol] 0.7 mg/dL Normal 0.5 - 1.3 mg/dL FT Remisol GFR/1.73 sq M.predicted among non-blacks MDRD (S/P/Bld) [Vol rate/Area] 97 mL/min/1.73 m2 Normal >=59mL/min/1 .73 m2 [facility] Chem S Glucose [Mass/Vol] 93 mg/dL Normal [...] 86.8 fL Normal 80.0 - 100.0 fL [facility] HemeAutoSS Platelet mean volume (Bld) [Entitic vol] 7.1 fL Normal 6.4 - 10.8 fL [facility] HemeAutoSS Platelets (Bld) [#/Vol] 275.0 E9/L Normal 150. 0 - 500.0 E9/L FT HemeAutoSS RBC (Bld) [#/Vol] 4.2 E12/L Low 4.3 - 5.9 E12/L FT HemeAutoSS WBC corrected for nucl RBC Auto (Bld) [#/Vol] 6.6 E9/L Normal 4.0 - 11.0 E9/L [facility] HemeAutoSS CULTURE SPUTUMon 12-10-2022 CULTURE SPUTUM Culture Observations : NORMAL RESPIRATORY LI. Normal [facility] Comment on above: Performed By: #### C BC #### [facility] [address] [place] [address] Dr. Ildefonso Finn SPUTUM GRAM STAINon 12-11-19 COMMENTS Normal [facility] Comment on above: Performed By: #### S PUTGS #### [facility] [address] [place] [address] Dr. Ildefonso Finn DIPHTHEROIDS Normal [facility] Comment on above: Performed By: #### S PUTGS #### [facility] [address] [place] [address] Dr. Ildefonso Finn EPITHELIALS <25 Normal [facility] Comment on above: Performed By: #### S PUTGS #### [facility] [address] [place] [address] [address] Ildefonso Finn FUNGAL ELEMENTS Normal [facility] Comment on above: Performed By: #### S PUTGS #### [facility] [address] [place] [address] Dr. Ildefonso INGRAM NEG BACILLI Normal [facility] Comment on above: Performed By: #### S PUTGS #### [facility] [address] [place] [address] Dr. Ildefonso INGRAM NEG DIPPLOCOCCI Normal [facility] Comment on above: Performed By: #### S PUTGS #### [facility] [address] [place] [address] Dr. Ildefonso Finn GRAM POS BACILLI Normal [facility] Comment on above: Performed By: #### S PUTGS #### [facility] [address] [place] [address] [address] Ildefonso Finn GRAM POSITIVE COCCI MODERATE Normal [facility] Comment on above: Performed By: #### S PUTGS #### [facility] [address] [place] [address] [address] Ildefonso Finn WBC (Bld) [#/Vol] 10*3/uL Normal [facility] Comment on above: Performed By: #### S PUTGS #### [facility] [address] [place] [address] [address] Ildefonso Finn Cov[facility] PCR [facility] SARS-CoV-2 (COVID-19) RNA KARLA+probe Ql (Unsp spec) Not detected Normal NOT DETECTED [facility] Comment on above: Result Comment: When diagnostic [...] for this test is supported by the [place] of Health and Human Service's declaration that [...] longer be used). Performed By: #### C VDTBH #### [facility] [address] [place] [address] [address] Ildefonso Finn INFLUENZA A AND B AGon 09-15 INFLUANEGH SEE BELOW Normal [facility] Comment on above: Result Comment: Nega tive for Flu A protein angiten. Infection due to Flu A cannot be ruled out. Flu A angiten in the sample may be below the detection limit of the test. Performed By: #### I NFLUAB #### [facility] [address] [place] [address] Dr. Ildefonso Finn [facility] SEE BELOW Normal [facility] Comment on above: Result Comment: Nega tive for Flu B protein antigen. Infection due to Flu B cannot be ruled out. Flu B antigen in the sample may be below the detection limit of the test. Performed By: #### I NFLUAB #### [facility] [address] [place] [address] Dr. Ildefonso Finn INFLUENZA A AG Negative Normal NEGATIVE SEE COMMENT [facility] Comment on above: Performed By: #### I NFLUAB #### [facility] [address] [place] [address] Dr. Ildefonso Finn INFLUENZA B AG Negative Normal NEGATIVE SEE COMMENT [facility] Comment on above: Performed By: #### I NFLUAB #### [facility] [address] [place] [address] Dr. Ildefonso Finn OCC BLD IMMUNO SCREENon 06-17 OCCULT BLOOD Negative Normal NEGATIVE [facility] Comment on above: Performed By: #### O BSCRN #### [facility] [address] [place] [address] Dr. Ildefonso Finn CBC AUTO DIFFon 07-02-2022 BASO # 0.0 103/ul Normal 0.0-0.1 [facility] Comment on above: Performed By: #### C BC #### [facility] [address] [place] [address] Dr. Ildefonso Finn Basophils/100 WBC (Bld) 0.8 % Normal 0.2-2.0 [facility] Comment on above: Performed By: #### C BC #### [facility] [address] [place] [address] Dr. Ildefonso Finn EO # 0.1 103/ul Normal 0.0-0.7 [facility] Comment on above: Performed By: #### C BC #### [facility] [address] [place] [address] Dr. Ildefonso Finn Eosinophils/100 WBC (Bld) 1.1 % Normal 0.9-7.0 [facility] Comment on above: Performed By: #### C BC #### [facility] [address] [place] [address] Dr. Ildefonso Finn Erythrocyte distribution width (RBC) [Ratio] 13.4 % Normal 11.0-15.0 [facility] Comment on above: Performed By: #### C BC #### [facility] [address] [place] [address] Dr. Ildefonso Finn Hematocrit (Bld) [Volume fraction] 39.5 % Normal 36.0-48.0 [facility] Comment on above: Performed By: #### C BC #### [facility] [address] [place] [address] Dr. Ildefonso Finn Hemoglobin (Bld) [Mass/Vol] 12.9 g/dL Normal 12.0-16.0 [facility] Comment on above: Performed By: #### C BC #### [facility] [address] [place] [address] Dr. Ildefonso Finn IG # 0.01 10e3/ul Normal 0.00-0.03 [facility] Comment on above: Performed By: #### C BC #### [facility] [address] [place] [address] Dr. Ildefonso Finn IG % 0.2 % Normal 0.0-0.5 [facility] Comment on above: Performed By: #### C BC #### [facility] [address] [place] [address] Dr. Ildefonso Finn LYMPH # 1.1 103/ul Critically low 1.2-3.8 [facility] Comment on above: Performed By: #### C BC #### [facility] [address] [place] [address] Dr. Ildefonso Finn Lymphocytes/100 WBC (Bld) 20.3 % Critically low 20.5-60.0 [facility] Comment on above: Performed By: #### C BC #### [facility] [address] [place] [address] Dr. Ildefonso Finn MANUAL DIFF REQ NO Normal [facility] Comment on above: Performed By: #### C BC #### [facility] [address] [place] [address] Dr. Ildefonso Finn MCH (RBC) [Entitic mass] 29.3 pg Normal 26.7-34.0 [facility] Comment on above: Performed By: #### C BC #### [facility] [address] [place] [address] Dr. Ildefonso Finn MCHC (RBC) [Mass/Vol] 32.7 g/dL Normal 29.9-35.2 [facility] Comment on above: Performed By: #### C BC #### [facility] [address] [place] [address] Dr. Ildefonso Finn MCV (RBC) [Entitic vol] 89.8 fL Normal 81.0-99.0 [facility] Comment on above: Performed By: #### C BC #### [facility] [address] [place] [address] Dr. Ildefonso Finn MONO # 0.5 103/ul Normal 0.3-0.8 [facility] Comment on above: Performed By: #### C BC #### [facility] [address] [place] [address] Dr. Ildefonso Finn Monocytes/100 WBC (Bld) 10.0 % Normal 1.7-12.0 [facility] Comment on above: Performed By: #### C BC #### [facility] [address] [place] [address] Dr. Ildefonso Finn NEUT # 3.6 103/ul Normal 1.4-6.5 [facility] Comment on above: Performed By: #### C BC #### [facility] [address] [place] [address] Dr. Ildefonso Finn Neutrophils/100 WBC (Bld) 67.6 % Normal 43.0-75.0 [facility] Comment on above: Performed By: #### C BC #### [facility] [address] [place] [address] Dr. Ildefonso Finn Platelet mean volume (Bld) [Entitic vol] 9.0 fL Critically low 9.5-13.5 [facility] Comment on above: Performed By: #### C BC #### [facility] [address] [place] [address] Dr. Ildefonso Finn PLT 290 103/ul Normal 150-450 [facility] Comment on above: Performed By: #### C BC #### [facility] [address] [place] [address] Dr. Ildefonso Finn RBC 4.40 106/ul Normal 4.20-5.40 [facility] Comment on above: Performed By: #### C BC #### [facility] [address] [place] [address] Dr. Ildefonso Finn WBC 5.3 103/ul Normal 4.0-11.0 [facility] Comment on above: Performed By: #### C BC #### [facility] [address] [place] [address] Dr. Ildefonso Finn FREE THYROXINE INDEX T7on FTI 2.56 Normal 1.30-4.50 [facility] Comment on above: Performed By: #### C BC #### [facility] [address] [place] [address] Dr. Ildefonso Finn T3U 32.0 % Normal 30.0-39.0 [facility] Comment on above: Performed By: #### C BC #### [facility] [address] [place] [address] Dr. Ildefonso Finn T4 [Mass/Vol] 8.00 ug/dL Normal 4.80-13.90 [facility] Comment on above: Performed By: #### C BC #### [facility] [address] [place] [address] Dr. Ildefonso Finn GLYCOHEMOGLOBIN A1Con 2021 ADA RECOMMENDATION SEE BELOW Normal [facility] Comment on above: Result Comment: ADA RECOMMENDED LIMIT 4.0 - 6.0 ADA THERAPEUTIC TARGET < 7.0 ACTION SUGGESTED > 7.0 Performed By: #### A 1C #### [facility] [address] [place] [address] Dr. Ildefonso Finn Glucose [Mass/Vol] 114 mg/dL Normal [facility] Comment on above: Performed By: #### A 1C #### [facility] [address] [place] [address] Dr. Ildefonso Finn HbA1c (Bld) [Mass fraction] 5.6 % Normal 4.5-6.2 [facility] Comment on above: Performed By: #### A 1C #### [facility] [address] [place] [address] Dr. Ildefonso Finn IRONon 07-02-2022 Iron [Mass/Vol] 87.0 ug/dL Normal 50.0-170.0 [facility] Comment on above: Performed By: #### I PRISCILLA #### [facility] [address] [place] [address] Dr. Ildefonso Finn LIPID PROFILEon 07-02-2022 CHOL-HDL RATIO NORM SEE BELOW Normal [facility] Comment on above: Result Comment: 3.3 - 4.4 LOW RISK 4.4 - 7.1 AVERAGE RISK 7.1 - 11.0 MODERATE RISK >11.0 HIGH RISK Performed By: #### C BC #### [facility] [address] [place] [address] Dr. Ildefonso Finn Cholesterol [Mass/Vol] 173 mg/dL Normal <=200 Th [facility] Comment on above: Performed By: #### C BC #### [facility] [address] [place] [address] Dr. Ildefonso Finn Cholesterol in HDL [Mass/Vol] 74 mg/dL Critically high 40-60 [facility] Comment on above: Performed By: #### C BC #### [facility] [address] [address] [address] Ildefonso Finn Cholesterol in LDL [Mass/Vol] 90.6 mg/dL Normal [facility] Comment on above: Performed By: #### C BC #### [facility] [address] [place] [address] Dr. Ildefonso Finn Cholesterol.total/Tracee sterol in HDL [Mass ratio] 2.3 {ratio} Normal [facility] Comment on above: Performed By: #### C BC #### [facility] [address] [address] [address] Ildefonso Finn HDL NORMAL > or = 60 mg/dl - LO W CARDIOVASCULAR RISK <40 mg/dl - HIGH CARDIOVASCULAR RISK Normal [facility] Comment on above: Performed By: #### C BC #### [facility] [address] [place] [address] Dr. Ildefonso Finn LDL CALC NORMAL SEE BELOW Normal [facility] Comment on above: Result Comment: <100 mg/dl OPTIMAL 100 - 129 mg/dl NEAR OR ABOVE OPTIMAL 130 - 159 mg/dl BORDERLINE HIGH 160 - 189 mg/dl HIGH >190 mg/dl VERY HIGH Performed By: #### C BC #### [facility] [address] [place] [address] Dr. Ildefonso Finn Triglyceride [Mass/Vol] 42 mg/dL Normal <=150 [facility] Comment on above: Performed By: #### C BC #### [facility] [address] [place] [address] Dr. Ildefonso Finn VLDL CALC 8.4 mg/dL Normal [facility] Comment on above: Performed By: #### C BC #### [facility] [address] [place] [address] Dr. Ildefonso Finn PROF 14(COMP METB)on 022 Albumin [Mass/Vol] 3.6 g/dL Normal 3.4-5.0 [facility] Comment on above: Performed By: #### C BC #### [facility] [address] [place] [address] Dr. Ildefonso Finn Albumin/Globulin [Mass ratio] 0.8 {ratio} Normal [facility] Comment on above: Performed By: #### C BC #### [facility] [address] [place] [address] Dr. Ildefonso Finn ALP [Catalytic activity/Vol] 74 U/L Normal 46-116 [facility] Comment on above: Performed By: #### C BC #### [facility] [address] [place] [address] Dr. Ildefonso Finn ALT [Catalytic activity/Vol] 15 U/L Normal 14-59 [facility] Comment on above: Performed By: #### C BC #### [facility] [address] [address] [address] Ildefonso Finn Anion gap [Moles/Vol] 7.8 mmol/L Normal [facility] Comment on above: Performed By: #### C BC #### [facility] [address] [address] [address] Ildefonso Finn AST [Catalytic activity/Vol] 21 U/L Normal 15-37 [facility] Comment on above: Performed By: #### C BC #### [facility] [address] [address] [address] Ildefonso Finn Bilirubin [Mass/Vol] 0.4 mg/dL Normal 0.2-1.0 [facility] Comment on above: Performed By: #### C BC #### [facility] [address] [place] [address] Dr. Ildefonso Finn Calcium [Mass/Vol] 9.0 mg/dL Normal 8.5-10.1 [facility] Comment on above: Performed By: #### C BC #### [facility] [address] [place] [address] Dr. Ildefonso Finn Chloride [Moles/Vol] 103 mmol/L Normal 98-107 [facility] Comment on above: Performed By: #### C BC #### [facility] [address] [address] [address] Ildefonso Finn CO2 [Moles/Vol] 30.5 mmol/L Normal 21.0-32.0 [facility] Comment on above: Performed By: #### C BC #### [facility] [address] [address] [address] Ildefonso Finn Creatinine [Mass/Vol] 0.70 mg/dL Normal 0.55-1.02 [facility] Comment on above: Performed By: #### C BC #### [facility] [address] [address] [address] Ildefonso Finn EGFR-AF BANGLADESHI >60 Normal >=60 [facility] Comment on above: Performed By: #### C BC #### [facility] [address] [place] [address] Dr. Ildefonso Finn EGFR-NON AF BANGLADESHI >60 Normal >=60 [facility] Comment on above: Performed By: #### C BC #### [facility] [address] [address] [address] Ildefonso Finn Globulin (S) [Mass/Vol] 4.5 g/dL Normal [facility] Comment on above: Performed By: #### C BC #### [facility] [address] [place] [address] Dr. Ildefonso Finn Glucose [Mass/Vol] 106 mg/dL Normal 74-106 [facility] Comment on above: Performed By: #### C BC #### [facility] [address] [place] [address] Dr. Ildefonso Finn Potassium [Moles/Vol] 4.3 mmol/L Normal 3.5-5.1 [facility] Comment on above: Performed By: #### C BC #### [facility] [address] [place] [address] Dr. Ildefonso Finn Protein [Mass/Vol] 8.1 g/dL Normal 6.4-8.2 [facility] Comment on above: Performed By: #### C BC #### [facility] [address] [place] [address] Dr. Ildefonso Finn Sodium [Moles/Vol] 137 mmol/L Normal 136-145 [facility] Comment on above: Performed By: #### C BC #### [facility] [address] [place] [address] Dr. Ildefonso Finn Urea nitrogen [Mass/Vol] 15.0 mg/dL Normal 7.0-18.0 [facility] Comment on above: Performed By: #### C BC #### [facility] [address] [place] [address] Dr. Ildefonso Finn Urea nitrogen/Creatinine [Mass ratio] 21.4 mg/mg Normal [facility] Comment on above: Performed By: #### C BC #### [facility] [address] [address] [address] Ildefonso Finn TSHon 07-02-2022 TSH 2.511 uIU/mL Normal 0.358-3.740 [facility] Comment on above: Performed By: #### C BC #### [facility] [address] [address] [address] Ildefonso Finn CULTURE SPUTUMon 04-16-2022 CULTURE SPUTUM Culture Observations : H. parainfluenzae; beta lactamase negative Isolate 1 Haemophilus parainfluenzae Normal [facility] Comment on above: Performed By: #### S PUTCX #### [facility] [address] [address] [address] Ildefonso Finn SPUTUM GRAM STAINon 04-16-20 COMMENTS Normal [facility] Comment on above: Performed By: #### S PUTGS #### [facility] [address] [place] [address] Dr. Ildefonso Finn DIPHTHEROIDS [facility] Comment on above: Performed By: #### S PUTGS #### [facility] [address] [place] [address] Dr. Ildefonso Finn EPITHELIALS <25 Normal [facility] Comment on above: Performed By: #### S PUTGS #### [facility] [address] [place] [address] Dr. Ildefonso Finn FUNGAL ELEMENTS Normal [facility] Comment on above: Performed By: #### S PUTGS #### [facility] [address] [place] [address] Dr. Ildefonso Finn GRAM NEG BACILLI Normal [facility] Comment on above: Performed By: #### S PUTGS #### [facility] [address] [address] [address] Ildefonso INGRAM NEG DIPPLOCOCCI MODERATE Normal [facility] Comment on above: Performed By: #### S PUTGS #### [facility] [address] [place] [address] Dr. Ildefonso Finn GRAM POS BACILLI Normal [facility] Comment on above: Performed By: #### S PUTGS #### [facility] [address] [address] [address] Ildefonso Finn GRAM POSITIVE COCCI FEW Normal [facility] Comment on above: Performed By: #### S PORSCHEGS #### [facility] [address] [address] [address] Ildefonso Finn WBC (Bld) [#/Vol] 10*3/uL Normal [facility] Comment on above: Performed By: #### S PUTGS #### [facility] [address] [address] [address] Ildefonso Finn Covid-19 PCR (CVDTB)on SARS-CoV-2 (COVID-19) RNA KARLA+probe Ql (Unsp spec) Detected Critically abnormal NOT DETECTED [facility] Comment on above: Result Comment: This test is not yet approved or cleared by the [place] FDA. When there are no FDA-approved or cleared tests available, and other criteria are met, FDA can make tests available under an emergency access mechanism called an Emergency Use Authorization (EUA). The EUA for this test is supported by the Robotic Weld Technician of Health and Human Service's (HHS's) declaration [...] used). Performed By: #### C VDTB #### [facility] [address] [address] [address] Ildefonso Finn Screening Mammogram, Ryan stanley 12-29-2021 Screening Mammogram, Bilateral CLINICAL HISTORY: Screening [...] VERY IMPORTANT TO YOUR HEALTH. THE CURRENT [place] [employer] OF [employer] AND [employer] GUIDELINES RECOMMENDS ANNUAL MAMMOGRAPHY BEGINNING AT AGE 38 THIS FACILITY USES A REMINDER SYSTEM TO ENSURE ALL PATIENTS RECEIVE REMINDER NOTIFICATIONS AT THE APPROPRIATE TIME BASED ON THE RECOMMENDATIONS OF THIS EXAM. 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 Accredited by the ACR and FDA. Report reported and signed by ESTEFANIA RUBIN on 12/31/2021 1312 Normal [facility] [employer] Vital Signs Date Time Vital Sign Value Performing Clinician Facility 03-11-2024 15:19-0400 Body temperature 99.14 [degF] Mhd Al-Marrawi [facility] 03-11-2024 15:19-0400 Diastolic blood pressure 83 mm[Hg] Mhd Al-Marrawi [facility] 03-11-2024 15:19-0400 Heart rate 96 /min Mhd Al-Marrawi [facility] 03-11-2024 15:19-0400 Mean blood pressure 97 mm[Hg] Mhd Al-Marrawi [facility] 03-11-2024 15:19-0400 Respiratory rate 20 /min Mhd Al-Marrawi [facility] 03-11-2024 15:19-0400 SaO2% (BldA) [Mass fraction] 94 % Mhd Al-Marrawi [facility] 03-11-2024 15:19-0400 Systolic blood pressure 124 mm[Hg] Mhd Al-Marrawi [facility] 02-26-2024 14:36-0400 Diastolic blood pressure 96 mm[Hg] Lauro Simon [facility] [place] 02-26-2024 14:36-0400 Heart rate 90 /min Lauro Simon [facility] 02-26-2024 14:36-0400 Systolic blood pressure 145 mm[Hg] Lauro Simon [facility] [place] 02-20-2024 12:42-0400 Body height 165.1 cm Chris Baum MD Work Phone: [facility] 02-20-2024 12:42-0400 Body mass index (BMI) [Ratio] 21.63 kg/m2 Chris Baum MD Work Phone: [facility] 02-20-2024 12:42-0400 Body weight 58.97 kg Chris Baum MD Work Phone: [facility] 02-20-2024 12:42-0400 Diastolic blood pressure 81 mm[Hg] Chris Baum MD Work Phone: [facility] 02-20-2024 12:42-0400 Heart rate 83 /min Chris Baum MD Work Phone: [facility] 02-20-2024 12:42-0400 Systolic blood pressure 133 mm[Hg] Chris Baum MD Work Phone: [facility] 12-04-2023 14:31-0400 Body temperature 98.42 [degF] Muna Amaro [facility] 12-04-2023 14:31-0400 Diastolic blood pressure 72 mm[Hg] Muna Amaro [facility] 12-04-2023 14:31-0400 Heart rate 97 /min Muna Amaro [facility] 12-04-2023 14:31-0400 Mean blood pressure 86 mm[Hg] Muna Amaro [facility] 12-04-2023 14:31-0400 Respiratory rate 16 /min Muna Amaro [facility] 12-04-2023 14:31-0400 SaO2% (BldA) [Mass fraction] 95 % Muna Amaro [facility] 12-04-2023 14:31-0400 Systolic blood pressure 113 mm[Hg] Muna Amaro [facility] 11-06-2023 15:13-0400 Blood Pressure Location Lauro Simon [facility] [place] 11-06-2023 15:13-0400 Diastolic blood pressure 90 mm[Hg] Lauro Simon [facility] [place] 11-06-2023 15:13-0400 Heart rate 85 /min Lauro Simon [facility] [place] 11-06-2023 15:13-0400 Systolic blood pressure 137 mm[Hg] Lauro Simon [facility] 09-04-2023 14:44-0500 Body temperature 97.34 [degF] Mhd Al-Marrawi [facility] 09-04-2023 14:44-0500 Diastolic blood pressure 64 mm[Hg] Mhd Al-Marrawi [facility] 09-04-2023 14:44-0500 Heart rate 91 /min d Al-Marrawi [facility] 09-04-2023 14:44-0500 Mean blood pressure 86 mm[Hg] Mhd Al-Marrawi [facility] 09-04-2023 14:44-0500 Respiratory rate 18 /min Mhd Al-Marrawi [facility] 09-04-2023 14:44-0500 SaO2% (BldA) [Mass fraction] 99 % Mhd Al-Marrawi [facility] 09-04-2023 14:44-0500 Systolic blood pressure 130 mm[Hg] Mhd Al-Marrawi [facility] 08-07-2023 15:51-0500 Diastolic blood pressure 78 mm[Hg] Lauro Simon [facility] [place] 08-07-2023 15:51-0500 Heart rate 80 /min Lauro Simon [facility] [place] 08-07-2023 15:51-0500 Systolic blood pressure 128 mm[Hg] Lauro Simon [facility] [place] 05-22-2023 14:00-0500 Blood Pressure Location Mhd Al-Marrawi [facility] 05-22-2023 14:00-0500 Body temperature 97.88 [degF] Mhd Al-Marrawi [facility] 05-22-2023 14:00-0500 Diastolic blood pressure 77 mm[Hg] Mhd Al-Marrawi [facility] 05-22-2023 14:00-0500 Heart rate 86 /min Mhd Al-Marrawi [facility] 05-22-2023 14:00-0500 Mean blood pressure 94 mm[Hg] Mhd Al-Marrawi [facility] 05-22-2023 14:00-0500 Respiratory rate 16 /min Mhd Al-Marrawi [facility] 05-22-2023 14:00-0500 SaO2% (BldA) [Mass fraction] 98 % Mhd Al-Marrawi [facility] 05-22-2023 14:00-0500 Systolic blood pressure 129 mm[Hg] Mhd Al-Marrawi [facility] 05-01-2023 09:00-0400 Blood Pressure Location Mhd Al-Marrawi [facility] 05-01-2023 09:00-0400 Body temperature 97.7 [degF] Mhd Al-Marrawi [facility] 05-01-2023 09:00-0400 Diastolic blood pressure 71 mm[Hg] Mhd Al-Marrawi [facility] 05-01-2023 09:00-0400 Heart rate 86 /min d Al-Marrawi [facility] 05-01-2023 09:00-0400 Mean blood pressure 87 mm[Hg] d Al-Marrawi [facility] 05-01-2023 09:00-0400 Respiratory rate 18 /min d Al-Marrawi [facility] 05-01-2023 09:00-0400 SaO2% (BldA) [Mass fraction] 95 % d Al-Marrawi [facility] 05-01-2023 09:00-0400 Systolic blood pressure 120 mm[Hg] d Al-Marrawi [facility] 03-01-2023 10:51-0400 Blood Pressure Location Bashar Harding [facility] 03-01-2023 10:51-0400 Diastolic blood pressure 78 mm[Hg] Bashar Harding [facility] 03-01-2023 10:51-0400 Heart rate 77 /min Bashar Harding [facility] 03-01-2023 10:51-0400 SaO2% (BldA) [Mass fraction] 97 % Bashar Harding [facility] 03-01-2023 10:51-0400 Systolic blood pressure 136 mm[Hg] Bashar Harding [facility] 02-22-2023 12:31-0400 Blood Pressure Location Lauro Hoody [facility] 02-22-2023 12:31-0400 Diastolic blood pressure 84 mm[Hg] Lauro Ugarteurany [facility] 02-22-2023 12:31-0400 Systolic blood pressure 127 mm[Hg] Lauro Ugarteurany [facility] 02-22-2023 12:30-0400 Blood Pressure Location Lauro Hoody [facility] 02-22-2023 12:30-0400 Body temperature 98.06 [degF] Lauro Moratayay [facility] 02-22-2023 12:30-0400 Diastolic blood pressure 79 mm[Hg] Lauro Moratayay [facility] 02-22-2023 12:30-0400 Heart rate 87 /min Lauro Toritourany [facility] 02-22-2023 12:30-0400 Respiratory rate 16 /min Lauro Moratayay [facility] 02-22-2023 12:30-0400 SaO2% (BldA) [Mass fraction] 96 % Lauro Simon [facility] 02-22-2023 12:30-0400 Systolic blood pressure 136 mm[Hg] Lauro Mourany [facility] Encounters Encounter Date Encounter Type Care Provider Facility Start: 03-11-2024 End: 03-11-2024 ambulatory Mhd Sushil Narayan Facility:[facility] Start: 03-11-2024 End: 03-11-2024 Patient encounter procedure Mhd Sushil Narayan [facility] Start: 03-01-2024 End: 03-01-2024 ambulatory MICHAEL BUCKLEY Not Available Start: 02-26-2024 End: 02-26-2024 ambulatory Muna Amaro Facility:[facility] Start: 02-26-2024 End: 02-26-2024 Patient encounter procedure Lauro Simon [facility] [place] Start: 02-20-2024 End: 02-20-2024 ambulatory SELF Facility:[facility] Start: 02-20-2024 End: 02-20-2024 Patient encounter procedure Chris Baum MD Work Phone: [facility] Comment on above: Multiple sclerosis ( HCC) (Primary Dx) Start: 12-04-2023 End: 12-04-2023 ambulatory Muna Amaro Facility:[facility] Start: 12-04-2023 End: 12-04-2023 Patient encounter procedure Muna Amaro [facility] Start: 11-20-2023 End: 11-20-2023 ambulatory Mhd Yaser Al-Marrawi Facility:[facility] Start: 11-20-2023 End: 11-20-2023 Patient encounter procedure Mhd Yaser Al-Marrawi [facility] Start: 11-07-2023 End: 11-08-2023 ambulatory ALANA MENDEZ [facility] Start: 11-06-2023 End: 11-06-2023 ambulatory Lauro Simon Facility:[facility] Start: 11-06-2023 End: 11-06-2023 Patient encounter procedure Lauro Simon [facility] [place] Start: 09-15-2023 ambulatory Lauro Simon Facility:[facility] Start: 09-04-2023 End: 09-04-2023 ambulatory Mhd Kristineser Al-Sharirawi Facility:[facility] Start: 09-04-2023 End: 09-04-2023 Patient encounter procedure Mhd Kristineser Al-Sharirasendy [facility] Start: 09-01-2023 End: 09-01-2023 ambulatory Mhd Kristineser Al-Sharirasendy Facility:[facility] Start: 09-01-2023 End: 09-01-2023 Patient encounter procedure Mhd Kristineser Al-Sharirasendy [facility] Start: 08-07-2023 End: 08-07-2023 ambulatory Lauro Simon Facility:[facility] Start: 08-07-2023 End: 08-07-2023 Patient encounter procedure Lauro Simon [facility] [place] Start: 07-28-2023 End: 07-29-2023 ambulatory [facility] Start: 07-28-2023 End: 08-01-2023 ambulatory [facility] Start: 07-27-2023 End: 07-28-2023 ambulatory [facility] Start: 07-26-2023 End: 07-27-2023 ambulatory [facility] Start: 07-25-2023 End: 07-26-2023 ambulatory [facility] Start: 07-24-2023 End: 07-25-2023 ambulatory [facility] Start: 07-21-2023 End: 07-22-2023 ambulatory [facility] Start: 07-20-2023 End: 07-21-2023 ambulatory [facility] Start: 07-19-2023 End: 07-20-2023 ambulatory KELINDAPHNE ROSENBERG [facility] Start: 07-18-2023 End: 07-19-2023 ambulatory [facility] Start: 07-14-2023 End: 07-15-2023 ambulatory [facility] Start: 07-13-2023 End: 07-14-2023 ambulatory [facility] Start: 07-13-2023 End: [facility]: 07-12-[facility]23 End: 07-13-2023 ambulatory [facility] Start: 07-07-2023 End: 07-08-2023 ambulatory [facility] Start: 07-06-2023 End: 07-07-2023 ambulatory [facility] Start: 07-05-2023 End: 07-06-2023 ambulatory [facility] Start: 07-04-2023 End: 07-05-2023 ambulatory [facility] Start: 07-03-2023 End: 07-04-2023 ambulatory [facility] Start: 06-30-2023 End: 07-01-2023 ambulatory [facility] Start: 06-29-2023 End: 06-30-2023 ambulatory [facility] Start: 06-28-2023 End: 06-29-2023 ambulatory [facility] Start: 06-27-2023 End: 06-28-2023 ambulatory [facility] Start: 06-26-2023 End: 06-27-2023 [facility]: [facility]-23-[facility]23 End: 06-24-2023 ambulatory [facility] Start: 06-22-2023 End: 06-23-2023 ambulatory [facility] Start: 06-21-2023 End: 06-22-2023 ambulatory [facility] Start: 06-20-2023 End: 06-21-2023 ambulatory [facility] Start: 06-19-2023 End: 06-20-2023 ambulatory [facility] Start: 06-16-2023 End: 06-17-2023 ambulatory [facility] Start: 06-15-2023 End: 06-16-2023 ambulatory [facility] Start: 06-14-2023 End: 06-15-2023 ambulatory [facility] Start: 06-13-2023 End: 06-14-2023 ambulatory [facility] Start: 05-30-2023 End: 05-30-2023 ambulatory Mhd Yaser Al-Marrawi Facility:[facility] Start: 05-30-2023 End: 05-30-2023 Patient encounter procedure Mhd Yaser Al-Yesenia [facility] Start: 05-25-2023 End: 05-26-2023 ambulatory [facility] Start: 05-25-2023 End: 05-25-2023 ambulatory [facility] Start: 05-22-2023 End: 05-22-2023 ambulatory Mhd Yaser Al-Marrawi Facility:[facility] Start: 05-22-2023 End: 05-22-2023 Patient encounter procedure Mhd Yaser Al-Marrawi [facility] Start: 05-22-2023 End: 05-22-2023 ambulatory Mhd Yaser Al-Marrawi Facility:[facility] Start: 05-22-2023 End: 05-22-2023 Patient encounter procedure Mhd Yaser Al-Marrawi [facility] Start: 05-02-2023 End: 05-03-2023 ambulatory AMRIKLandry KATHRYN [facility] Start: 05-01-2023 End: 05-01-2023 ambulatory Lauro Simon Facility:[facility] Start: 05-01-2023 End: 05-01-2023 Patient encounter procedure Lauro Simon [facility] [place] Start: 05-01-2023 End: 05-01-2023 ambulatory Mhd Yaser Al-Marrawi Facility:[facility] Start: 05-01-2023 End: 05-01-2023 Patient encounter procedure Mhd Yaser Al-Marrawi [facility] Start: 04-21-2023 End: 04-21-2023 ambulatory Lauro Simon Facility:[facility] Start: 04-11-2023 End: 04-11-2023 ambulatory Tee Lobato Facility:[facility] Start: 04-03-2023 ambulatory Lauro Simon Facilit y:[facility] Start: 03-01-2023 End: 03-01-2023 Patient encounter procedure Bashar X Harding [facility] Start: 03-01-2023 End: 03-01-2023 Preprocedural examination done Bashar X Harding [facility] Start: 02-22-2023 End: 02-22-2023 Patient encounter procedure Lauro Simon [facility] Start: 02-20-2023 End: 03-23-2023 Pre-admission assessment Lauro Simon [facility] Start: 12-10-2022 End: 12-11-[address] BRIANNA YANEZ . Facility:[facility] Start: 09-15-2022 End: 09-15-[address] BRIANNA YANEZ . Facility:[facility] Start: 07-12-2022 End: 07-12-[address] BRIANNA YANEZ . Facility:[facility] Start: 07-06-2022 Encounter for genera l adult medical examination without abnormal findings DR BRIANNA YANEZ . [facility] Start: 07-02-2022 End: 07-03-[address] BRIANNA [...] End: 01-04-[address] BRIANNA YANEZ . Facility:[facility] Procedures Date Procedure Procedure Detail Performing Clinician Start: 04-11-2023 Biopsy of lymph node June Simon Start: 06-16-2021 Bronchoscopy Lauro Ro ny Biopsy of breast Lauro stevenson section Lauro stevenson Plan of Treatment Date Care Activity Detail Author Start: 11-28-2027 Urine microalbumin profile DTaP,Tdap,Td Vaccine (2 - Td or Tdap) [facility] Start: 05-27-2024 ambulatory Ambulatory Facility:[facility] Start: 03-17-2024 Influenza vaccination Influenza Vacc ine (#1) [facility] Start: 01-06-2024 Screening for malign ant neoplasm of breast Mammogram Screening [facility] Start: 11-11-2023 Advance Directive Discussion Advance Directive Discussion [facility] Start: 11-11-2023 Screening for osteoporosis Bone Density Screening [facility] Start: 03-17-2023 Covid-19 Vaccine ( season) Covid-19 Vaccine () [facility] [facility] Start: 07-05-2022 Diabetes Screening Diabetes Screenin g [facility] Start: 2008 Shingrix Vaccine (1 of 2) Craig grix Vaccine (1 of 2) [facility] Start: 11-11-2003 Lipid panel Lipid Screening [facility] Start: 11-11-2003 Screening for malign ant neoplasm of colon [facility] Start: 1976 Anxiety Screening Anxiety Screening [facility] Start: 1976 Depression Screening Depression Scre ening [facility] Start: 1976 Hepatitis C screening Hepatitis C Sc reening [facility] Start: 1976 HIV screening HIV Screening [facility] Immunizations Immunization Date Immunization Notes Care Provider Vianca mcfarlane 06-27-2023 influenza virus vaccine, unspecified formulation Chris Baum MD Work Phone: [facility] 04-15-2022 influenza virus vaccine, unspecified formulation Lauro Simon [facility] 05-02-2021 influenza virus vaccine, unspecified formulation Lauro Simon [facility] 10-31-2020 SARS-CoV-2 (COVID-19 ) mRNA BNT-162y4 vax Lauro Simon [facility] Comment on above: Result Comment: 2022: [id number] 10-10-2020 SARS-CoV-2 (COVID-19 ) mRNA BNT-162b2 vax Lauro Simon [facility] Comment on above: Result Comment: 2022: [id number] 05-02-2019 influenza virus vaccine, unspecified formulation Lauro Simon [facility] 05-02-2019 influenza, injectabl e, quadrivalent, preservative free Chris Baum MD Work Phone: [facility] 05-04-2018 influenza virus vaccine, unspecified formulation Lauro Simon [facility] 05-04-2018 influenza, injectabl e, quadrivalent, preservative free Chris Baum MD Work Phone: [facility] 11-27-2017 tetanus toxoid, redu alona diphtheria toxoid, and acellular pertussis vaccine, adsorbed Lauro Simon [facility] 05-02-2017 influenza virus vaccine, unspecified formulation Lauro Simon [facility] 05-09-2016 influenza, unspecifi ed formulation Lauro Simon [facility] 05-07-2015 influenza virus vaccine, unspecified formulation Lauro Simon [facility] 05-07-2015 influenza, high dose seasonal, preservative-free Chris Baum MD Work Phone: [facility] 07-14-2014 influenza virus vaccine, unspecified formulation Lauro Simon [facility] 07-14-2014 influenza, injectable,quadrivalent , preservative free, pediatric Chris Baum MD Work Phone: [facility] 07-14-2014 pneumococcal conjuga te vaccine, 13 valent Lauro Simon [facility] 04-12-2013 influenza virus vaccine, unspecified formulation Chris Baum MD Work Phone: [facility] Work Phone: 06-15-2012 influenza virus vaccine, unspecified formulation Chris Baum MD Work Phone: [facility] 12-01-2011 pneumococcal polysaccharide vaccine, 23 valent Chris Baum MD Work Phone: [facility] 10-12-2010 influenza virus vaccine, unspecified formulation Chris Baum MD Work Phone: [facility] NEGATED: Highlighted row has not occurred!04-21-2023 influenza virus vaccine, unspecified formulation Lauro Ugartebradfordgraham [facility] [place] Payers Date Payer Category Payer Medicare [id number] 2023 Medicare [id number] 2023 Unknown [id number] 2022 Unknown [id number] 1960 Unknown [id number] 2.16.84 0.1.835536.3.579.2.593 1960 Unknown [id number] 2.16.84 0.1.659176.3.579.2.593 1960 Unknown [id number] 2.16.84 0.1.495680.3.579.2.593 1960 Unknown [id number] 2.16.84 0.1.271811.3.579.2.593 1960 Unknown [id number] 2.16.84 0.1.088087.3.579.2.593 1958 Unknown [id number] 2.16.84 0.1.509637.3.579.2.593 1960 Unknown [id number] 2.16.84 0.1.505070.3.579.2.593 1960 Unknown [id number] 2.16.84 0.1.215865.3.579.2.593 1960 Unknown [id number] 2.16.8 40.1.163230.3.579.2.727 1960 Unknown [id number] 2.16.84 0.1.204129.3.579.2.1259 1960 Unknown [id number] 2.16.8 40.1.620921.3.579.2.727 1960 Unknown [id number] 2.16.8 40.1.734551.3.579.2.727 1960 Unknown [id number] 2.16.8 40.1.034463.3.579.2.727 1958 Unknown [id number] 2.16.8 40.1.784550.3.579.2.727 1958 Unknown [id number] 2.16.8 40.1.364870.3.579.2.72 1960 Unknown [id number] 2.16.8 40.1.273362.3.579.2.727 1960 Unknown [id number] 2.16.8 40.1.702229.3.579.2.727 1958 Unknown [id number] 2.16.8 40.1.990131.3.579.2.727 1958 Unknown [id number] 2.16.8 40.1.643722.3.579.2.727 1960 Unknown [id number] 2.16.8 40.1.165370.3.579.2.727 1960 Unknown [id number] 2.16.8 40.1.667430.3.579.2.72 1958 Unknown [id number] 2.16.8 40.1.544298.3.579.2.727 1958 Unknown [id number] 2.16.8 40.1.240378.3.579.2.72 1958 Unknown [id number] 2.16.8 40.1.583562.3.579.2.727 1958 Unknown [id number] 2.16.8 40.1.500147.3.579.2.727 1958 Unknown [id number] 2.16.8 40.1.794351.3.579.2.727 1960 Unknown [id number] 2.16.8 40.1.112808.3.579.2.727 1960 Unknown [id number] 2.16.8 40.1.527521.3.579.2.727 Unknown [id number] Social History Date Type Detail Facility Start: 01-30-2023 End: 02-26-2024 Tobacco smoking status Never smoked tobacco (finding) [facility] Tobacco smoking status Never [facility] Start: 02-19-2024 End: 02-20-2024 Sex Assigned At Female [facility] Start: 10-22-2014 Tobacco use and exposure Smokeless tobacco non-user [facility] Start: 02-20-2024 Alcohol intake Current non-dr polisher dial of alcohol (finding) [facility] Start: 02-19-2024 End: 02-20-2024 History of Social function [facility] Start: 1960 [facility] Functional Status Date Assessment Result Facility 08-07-2023 Functional Status N/A [facility] 03-01-2023 Functional Status No [facility] 02-22-2023 Functional Status No [facility] Clinical Notes 01-03-2022 to 03-11-2024 Chris Baum MD - 02/20/2024 12:45 PM EDTRadiologyRadiologyLaboratoryRadiologyLaboratoryLaboratoryLaboratoryLaboratory LaboratoryLaboratory Note Date & Type Note Facility 03-11-2024 Note Oncology Progress No te Chief Complaint no concerns Diagnoses 1. Breast cancer, left (C50.912: Malignant neoplasm of unspecified site of left female breast) Oncological History/ROS/PE/Assessment and Plan Chief Complaint breast Ca; has a mole that would like to discuss today. Diagnoses 1. Encounter for follow-up surveillance of breast cancer (Z08: Encounter for follow-up examination after completed treatment for malignant neoplasm) Personal history of malignant neoplasm of breast (Z85.3: Personal history of malignant neoplasm of breast) Oncological History/ROS/PE/Assessment and Plan Emeli is a 62-year-old lady with history of multiple sclerosis and bronchiectasis who was referred by Dr. Simon to our oncology clinic to be evaluated and managed for her new left breast invasive lobular carcinoma, ER +90%, KY +20 to 30%, HER2/elif 1+, and Ki67 was positive 1%. 2 out of 2 sentinel lymph node with positive for macro metastatic disease. Her tumor was discussed at the [facility] tumor board patient is to obtain Oncotype [...] Lumpectomy with wire-guided localization LYMPH NODE SAMPLING: [place] lymph node(s) SPECIMEN INTEGRITY: multiple specimens (A [...] invasive tumor cells, performed on previous biopsy ([id number]), please refer to previous report for details PROGESTERONE RECEPTOR: 20-30% of invasive tumor cells, performed on previous biopsy (993), please refer to previous report for details Ki-67 INDEX OF INVASIVE TUMOR CELLS: Approximately 1% of invasive tumor cells, performed on previous biopsy ([id number]), please refer to previous report for details HER2/ELIF STUDIES: 1+ ([facility]), performed on previous biopsy (307), please refer to previous report for details [...] final planning of her adjuvant treatment. She (more content not included)... [facility] 02-20-2024 Note HNO ID: [id number] Author: CHRIS BAUM MD Service: ? Author Type: Physician Type: Progress Notes Filed: 02/20/2024 17:38 Note Text: [facility] FOLLOWUP/ESTABLISHED PATIENT VISIT Also followed by: Brianna [...] Flowsheet Row Office Visit from 02/20/2024 in [facility] Office Visit from 07/01/2015 in [facility] Office Visit from 05/28/2014 in [facility] Upper Extremity Domain T Score 57 47.9 56.84 Lower Extremity Domain T Score 50 48.92 55.49 Cognitive Function Domain T Score 67 -- -- Positive Affect Well Being T Score -- -- -- Ability To Participate In Social Roles T Score 56 -- -- Satisfaction With Social Roles T Score 62 -- -- Neuro-QoL Symptoms (higher=worse symptoms) Flowsheet [facility] Office Visit from 02/20/2024 in [facility] Office Visit from 07/01/2015 in [facility] Office Visit from 05/28/2014 in [facility] Sleep Domain T Score 32 38.15 [...] without mention of status migrainosus, Multiple sclerosis ([facility]), Pulmonary infiltrate, and Sciatica. She has no past medical history of Atrial fibrillation ([facility]), Cancer ([facility]), Chronic obstructive pulmonary disease (COPD) ([facility]), Chronic renal insufficiency, Congestive heart failure ([facility]), Coronary artery disease, Depression, Diabetes ([facility]), Epilepsy ([facility]), Hypertension, Obstructive sleep apnea, Steroid long-term use, Stroke ([facility]), or Substance abuse ([facility]). has a current medication list which includes the following prescription(s): letrozole, latanoprost, cholecalciferol, calcium carbonate, sodium chloride, albuterol, ipratropium bromide, and nebulizer and compressor for neb. EXAM: BP 133/81 Pulse 83 Ht 165.1 cm (5' 5 ) Wt 59 kg (130 lb) BMI 21.63 kg/m? MSPT Results Flowsheet [facility] Office Visit from 12/11/2015 in [facility] Office Visit from 07/01/2015 in [facility] Office Visit from 05/28/2014 in [facility] Processing Speed Total Number Correct -- [...] 5 Biceps 5 5 Triceps 5 5 Fabrication Operator 5 5 Dorsal interossei 5 5 Lower extremit (more content not included)... [facility] 02-20-2024 History of Present illness Narrative Images from the original note were not included. [facility] FOLLOWUP/ESTABLISHED PATIENT VISIT Also followed by: Brianna [...] modifying therapy. Neuro-QoL Functions (higher=better functioning) Flowsheet [facility] Office Visit from 02/20/2024 in [facility] Office Visit from 07/01/2015 in [facility] Office Visit from 05/28/2014 in [facility] Upper Extremity Domain T Score 57 47.9 56.84 Lower Extremity Domain T Score 50 48.92 55.49 Cognitive Function Domain T Score 67 -- -- Positive Affect Well Being T Score -- -- -- Ability To Participate In Social Roles T Score 56 -- -- Satisfaction With Social Roles T Score 62 -- -- Neuro-QoL Symptoms (higher=worse symptoms) Flowsheet [facility] Office Visit from 02/20/2024 in [facility] Office Visit from 07/01/2015 in [facility] Office Visit from 05/28/2014 in [facility] Sleep Domain T Score 32 38.15 [...] without mention of status migrainosus, Multiple sclerosis ([facility]), Pulmonary infiltrate, and Sciatica. She has no past medical history of Atrial fibrillation ([facility]), Cancer ([facility]), Chronic obstructive pulmonary disease (COPD) ([facility]), Chronic renal insufficiency, Congestive heart failure ([facility]), Coronary artery disease, Depression, Diabetes ([facility]), Epilepsy ([facility]), Hypertension, Obstructive sleep apnea, Steroid long-term use, Stroke ([facility]), or Substance abuse ([facility]). has a current medication list which includes the following prescription(s): letrozole, latanoprost, cholecalciferol, calcium carbonate, sodium chloride, albuterol, ipratropium bromide, and nebulizer and compressor for neb. EXAM: BP 133/81 Pulse 83 Ht 165.1 cm (5' 5 ) Wt 59 kg (130 lb) BMI 21.63 kg/m MSPT Results Flowsheet [facility] Office Visit from 12/11/2015 in [facility] Office Visit from 07/01/2015 in [facility] Office Visit from 05/28/2014 in [facility] Processing Speed Total Number Correct -- [...] 5 Biceps 5 5 Triceps 5 5 Fabrication Operator 5 5 Dorsal interossei 5 5 Lower [...] Ángel Zendejas MD Neuroimmunology Fellow, PGY 5 [facility] for Multiple Sclerosis Patient seen and evaluated. She has long-standing multiple sclerosis but has been clinically stable for many years, without evidence for active inflammation. Although a brain MRI could be considered now, I think it's unlikely to change our current recommendations to remain off multiple sclerosis disease modifying therapy. Chris Baum MD cc: Brianna Yanez MD, [address] [place] [id number] documented in this encounter [facility] 12-04-2023 Hospital Discharge instructions Follow Up Care 12/04/2023 15:23:41 With:Sylvain RICE, Neftali Ling, BRENNAN, ONC Address: When: Unknown Comments:Continue taking letrozole or Femara once daily.Continue calcium and vitamin D.Continue taking Fosamax once a week for the osteoporosis.CBC and CMP labs in 6 months and return in 6 months. [facility] 11-07-2023 Note [facility] Department of Radiation Oncology [address] [place] [address] RADIATION ONCOLOGY FOLLOW UP NOTE Date of Service: 11/07/23 Patient Name: Emeli Kaufman Patient : 1960 Diagnosis: 62 y.o. woman diagnosed in January 2023 with low-grade, ER/KY+, her2 negative invasive lobular carcinoma of the [...] up recently. Also follows closely with her learning and development consultant for chronic EVAN infection. Denies breast pain, [...] close care of Dr. Stevie Fajardo at [facility]. Patient experiences cough whenever I lie [...] cyanosis/clubbing/edema. LYMPH: No appreciable adenopathy. 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 [place] lymph nodes, left breast, excision: Metastatic lymph nodes identified, 2/2 positive for metastatic neoplasm, large size of metastatic focus 0.8 cm, no extranodal extension identified. Pathologic staging: pT1c pN1a(sn). Estrogen receptor >90% positive, progesterone receptor 20-30% positi (more content not included)... [facility] 09-04-2023 Hospital Discharge instructions Follow Up Care 09/04/2023 15:35:12 With:Sondra FEILDS, Muna Fuentes, ONC Address: [facility] [place] [address]- [phone] When: Unknown Comments:continue alendronate weekly and letrozole dailydiagnostic mamm in January/Feb (scarfer operator will order)cmp in 3mofollow-up in 3mo with Dr. Donis [facility] 09-04-2023 Hospital Discharge instructions Patient Education 09/04/2023 [...] including vitamins, herbs, eye drops, creams, and mvub-yuh-sglxoxe medicines. Any medical conditions you have. How [...] g/L (SI units). Children Total protein: ?Premature : 4.2 7.6 g/dL. ?: 4.6 7.4 g/dL. ?: 6 6.7 g/dL. ?Child: 6.2 8 g/dL. Albumin: ?Premature infant: 3 4.2 g/dL. ?[place]: 3.5 5.4 g/dL. ?Infant: 4.4 5.4 g/dL. ?Child: 4 5.9 g/dL. [...] provider. Document Revised: 03/26/2021 Document Reviewed: 03/26/2021 [employer] Patient Education 2022 Doctor Evidence. Follow Up Care 05/22/2023 14:57:40 With:Sylvain RICE, Neftali Ling, MED, ONC Address: When: Unknown Comments:Start Actonel 35 mg once a week with full glass of water in am in upright position, again only once a week.Continue Femara once daily.Calcium 500 mg twice daily.Continue vitamin D 2000 units daily.Labs in 3 months including CBC with differential, CMP, myeloma labs.Return in 3 months. [facility] 07-27-2023 Note [facility] Department of Radiation Oncology [address] [place] [address] Date of Service: 07/27/23 Patient Name: Emeli Kaufman Patient : 1960 Radiation Oncology ON-TREATMENT VISIT NOTE Diagnosis: 62 y.o. woman diagnosed in January 2023 with low-grade, ER/KY+, her2 negative invasive lobular carcinoma of the [...] mid October. She will follow up with [facility] in te interim. Patient verbalized a good understanding to everything. Alana Mendez MD [facility] 07-19-2023 Note [facility] Department of Radiation Oncology [address] [place] [address] Date of Service: 07/19/23 Patient Name: Emeli Kaufman Patient : 1960 Radiation Oncology ON-TREATMENT VISIT NOTE Diagnosis: 62 y.o. woman diagnosed in January 2023 with low-grade, ER/KY+, her2 negative invasive lobular carcinoma of the [...] Sridhar Narayan as Referring Physician (Medical Oncology) [facility] 07-13-2023 Note GROUNDMAN/LINEMAN: L breast and LN 20/25 fx + 5. Vitals WNL. Rad site brisk, no open areas. Reviewed proper skin care, pt verbalizes understanding. Pt. Denies any pain. No further concerns at this time. [facility] 07-13-2023 Note [facility] Department of Radiation Oncology [address] [place] [address] Date of Service: 07/13/23 Patient Name: Emeli Kaufman Patient : 1960 Radiation Oncology ON-TREATMENT VISIT NOTE Diagnosis: 62 y.o. woman diagnosed in January 2023 with low-grade, ER/KY+, her2 negative invasive lobular carcinoma of the [...] Sridhar Narayan as Referring Physician (Medical Oncology) [facility] 06-27-2023 Note Accompanied by Noe mark nd. States tolerating radiation treatments well. States is using antibacterial soap and moisturizing daily with Aveeno. Denies pain. Left breast slightly reddened. Denies dyspnea. States has chronic cough productive of light green sputum. Denies hemoptysis. Denies issues with elimination. Denies hematuria or hematochezia. [facility] 06-27-2023 Note [facility] landry dozier [facility] Department of Radiation Oncology [address] [place] [address] Date of Service: 06/27/23 Patient Name: Emeli Kaufman Patient : 1960 Radiation Oncology ON-TREATMENT VISIT NOTE Diagnosis: 62 y.o. woman diagnosed in January 2023 with low-grade, ER/KY+, her2 negative invasive lobular carcinoma of the [...] cough due to EVAN, regularly sees her learning and development consultant in [place]. Objective: Visit Vitals BP 156/87 (BP Location: [...] Sridhar Narayan as Referring Physician (Medical Oncology) [facility] 06-22-2023 Note [facility] Department of Radiation Oncology [address] [place] [address] Date of Service: 06/22/23 Patient Name: Emeli Kaufman Patient : 1960 Radiation Oncology ON-TREATMENT VISIT NOTE Diagnosis: 62 y.o. woman diagnosed in January 2023 with low-grade, ER/KY+, her2 negative invasive lobular carcinoma of the [...] cough due to EVAN, regularly sees her learning and development consultant in [place]. Objective: Visit Vitals BP 128/78 (BP Location: [...] Sridhar Narayan as Referring Physician (Medical Oncology) [facility] 06-22-2023 Note GROUNDMAN/LINEMAN NOTE: Emeli is accompanied by Aamir. Pt has completed 02/07 fx RT to Left Breast/LN. Pt denies pain. Respirations are unlabored, O2 sat 95% RA. Pt is cleansing treatment area with antibacterial soap daily and moisturizer as directed. [facility] 05-25-2023 Note PHYSICIAN CLINICAL T REATMENT PLANNING [...] with lymph nodes Technique IGRT and 3D DATA LIBRARIAN IGRT localization type Daily kV Prescribed fraction [...] thorax Isocenters: tentative isocenter Slice thickness: 3mm DIBH Scan requested: Yes - Simulation will be [...] and reduction of ptv margins. Additional comments: [facility] 05-25-2023 Note GROUNDMAN/LINEMAN NOTE: Emeli is here for Consult accompanied by Aamir. Pt has been referred by Dr. Narayan, Medical Oncologist, [facility]. Pt is s/p Lumpectomy 04/11/23. Pt states surgery was delayed due to hx of Bronchiectasis. Oncotype score 17. PT DENIES HAVING PRIOR CANCER DIAGNOSIS, PRIOR CHEMOTHERAPY OR RADIATION THERAPY. PT DENIES HAVING ANY IMPLANTABLE DEVICES OR CONNECTIVE TISSUE DISEASE. Pt denies pain. Pt has frequent dry cough. Pt states she does not have a neurologist Residence Hall Director present for exam. [facility] 05-25-2023 Note [facility] Department of Radiation Oncology [address] [place] [address] RADIATION ONCOLOGY CONSULTATION NOTE Date of Service: 05/25/23 Patient Name: Emeli Kaufman Patient : 1960 Diagnosis: 62 y.o. woman diagnosed in January 2023 with low-grade, ER/KY+, her2 negative invasive lobular carcinoma of the [...] close care of Dr. Stevie Fajardo at [facility]. Patient experiences cough whenever I lie [...] cyanosis/clubbing/edema. LYMPH: No appreciable adenopathy. 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 [place] lymph nodes, left breast, excision: Metastatic lymph [...] woman diagnosed in January 2023 with low-grade, ER/KY+, her2 negative invasive lobular carcinoma of the LEFT breast s/p R0 lumpectomy and SLNbx in Mar 2023 yielding pT1c pN1a(sn) G1 R0 disease. Plan: I explained t (more content not included)... [facility] 05-01-2023 Hospital Discharge instructions Follow Up Care 05/01/2023 10:39:18 With:Neftali Narayan Address: [address] [address] [phone] Business (1) When: Unknown Comments:Proceed with radiation oncology consult and adjuvant radiation once recommended by them.LFTS and Bone density scan now.Start Femara 2.5 mg once daily one week after completing the radiation to the left breast.Start calcium 500 mg one pill twice daily.Start vitamin D 2000 units daily.LFTs 4 weeks after starting Femara and RTC then. [facility] 04-25-2023 Hospital Discharge instructions Follow Up Care 04/25/2023 12:37:04 With:Neftali Narayan Address: [address] [address]- [phone] Business (1) When: Unknown Comments:The plan will need to do Oncotype DX scoreReferral to radiation oncology for evaluation for need for adjuvant radiation. Return in 2 to 3 weeks for oncotype DX results [facility] 01-03-2022 Note PROCEDURE: XR FOOT R T MIN 3 VIEWS HISTORY: Cellulitis ; acute second toe pain COMPARISON: None. FINDINGS: BONES:No fracture, acute abnormality, or significant arthropathy. SOFT TISSUES:No visible soft tissue swelling. EFFUSION:None visible. OTHER: Negative. IMPRESSION: 1. No appreciable bone or soft tissue abnormality to account for patient's symptoms. Electronically authenticated by: LUCIEN BONILLA Date: 2022-01-03 17:34 [facility] Evaluation + Plan note Future Appointments Appointment Date:03/01/2023 09:00:00 AM Scheduled Provider: Location:.[facility]MO[facility] Appointment Type:MA Needle Loc (FT) Appointment Date:03/01/2023 11:00:00 AM Scheduled Provider: Location:.NUCLEAR MED Appointment Type:NM Lymphoscintigraphy (FT) Appointment Date:03/01/2023 12:00:00 PM Scheduled Provider: Location:[facility] Appointment Type:Surgery FT Appointment Date:03/01/2023 02:00:00 PM Scheduled Provider: Location:.MAMMOGRAM Appointment Type:MA Diagnostic (FT) Appointment Date:03/13/2023 03:00:00 PM Scheduled Provider:Lauro Simon MD Location:[facility] Appointment Type:GS Post Op 15 Future Scheduled TestsMA Breast Needle Loc w/ Guidance, Left 03/01/23NM Lymphoscintigraphy 03/01/23MA Mamm Diag w/CAD if perf and 3D LT 03/01/23 [facility] Evaluation + Plan note Future Appointments Appointment Date:03/22/2023 09:00:00 AM Scheduled Provider: Location:.M[facility]MOGRAM Appointment Type:MA Needle Loc (FT) Appointment Date:03/22/2023 10:00:00 AM Scheduled [facility] Type:NM Lymphoscintigraphy (FT) Appointment Date:03/22/2023 01:00:00 PM Scheduled Provider: Location:[facility] Appointment Type:Surgery FT Appointment Date:03/22/2023 03:00:00 PM Scheduled Provider: Location:.[facility]MOGRAM Appointment Type:MA Diagnostic (FT) Appointment Date:04/03/2023 02:00:00 PM Scheduled Provider:Lauro Simon MD Location:[facility] Appointment Type: Post Op 15 Future Scheduled TestsMA Breast Needle Loc w/ Guidance, Left 03/22/23NM Lymphoscintigraphy 03/22/23MA Mamm Diag w/CAD if perf and 3D LT 03/22/23 [facility] Evaluation + Plan note Future Appointments Appointment Date:04/03/2023 02:00:00 PM Scheduled Provider:Lauro Simon MD Location:[facility] Appointment Type:GS Post Op 15 [facility] Evaluation + Plan note Future Appointments Appointment Date:05/22/2023 02:00:00 PM Scheduled Provider: Location:.ONCOLOGY Appointment Type:ONC Office Visit 30 (FT) Appointment Date:07/24/2023 03:00:00 PM Scheduled Provider:Lauro Simon MD Location:[facility] Appointment Type:GS Established 15 [facility] General Surgery [place] Evaluation + Plan note Future Appointments Appointment Date:07/24/2023 03:00:00 PM Scheduled Provider:Lauro Simon MD Location:[facility] Appointment Type:[facility] Appointment Date:08/14/2023 02:30:00 PM Scheduled Provider: Location:.ONCOLOGY Appointment Type:ONC Office Visit 30 (FT) Future Scheduled TestsHepatic Function Panel 08/07/23BD Bone Density DEXA 05/23/23 [facility] Evaluation + Plan note Future Appointments Appointment Date:07/24/2023 03:00:00 PM Scheduled Provider:Lauro Simon MD Location:[facility] Appointment Type:[facility] Appointment Date:08/14/2023 02:30:00 PM Scheduled [facility]: [facility] Type:[facility]C Office Visit 30 (FT) Future Scheduled TestsHepatic Function Panel 08/07/23 [facility] Evaluation + Plan note Future Appointments Appointment Date:08/14/2023 02:30:00 PM Scheduled Provider: Location:.ONCOLOGY Appointment Type:ONC Office Visit 30 (FT) Appointment Date:11/06/2023 03:00:00 PM Scheduled Provider:Lauro Simon MD Location:[facility] Appointment Type:[facility] Future Scheduled TestsHepatic Function Panel 08/07/23 [facility] General Surgery [place] Evaluation + Plan note Future Appointments Appointment Date:09/04/2023 02:30:00 PM Scheduled Provider:Neftali Narayan MD Location:.ONCOLOGY Appointment Type:ONC Office Visit 30 (FT) Appointment Date:11/06/2023 03:00:00 PM Scheduled Provider:Lauro Simon MD Location:[facility] Appointment Type:[address] Evaluation + Plan note Future Appointments Appointment Date:11/06/2023 03:00:00 PM Scheduled Provider:Lauro Simon MD Location:[facility] Appointment Type: Appointment Date:12/04/2023 02:30:00 PM Scheduled Provider:Neftali Narayan MD Location:.ONCOLOGY Appointment Type:ONC Office Visit 30 (FT) Future Scheduled TestsIFE and PE, Serum 12/03/23Immunoglobs. A/E/G/M 12/03/23Free K+L Lt Chains,Qn,S 12/03/23CBC w/ Auto Diff 12/03/23Comprehensive Metabolic Panel 12/03/23 [facility] Evaluation + Plan note Future Appointments Appointment Date:12/04/2023 02:30:00 PM Scheduled Provider:Neftali Narayan MD Location:FT.ONCOLOGY Appointment Type:ONC Office Visit 30 (FT) Appointment Date:02/05/2024 03:00:00 PM Scheduled Provider:Lauro Simon MD Location:[facility] Appointment Type: Established 15 Future Scheduled TestsIFE and PE, Serum 12/03/23Immunoglobs. A/E/G/M 12/03/23Free K+L Lt Chains,Qn,S 12/03/23CBC w/ Auto Diff 12/03/23Comprehensive Metabolic Panel 12/03/23 [facility] General Surgery [place] Evaluation + Plan note Future Appointments Appointment Date:12/04/2023 02:30:00 PM Scheduled Provider:Neftali Narayan MD Location:FT.ONCOLOGY Appointment Type:ONC Office Visit 30 (FT) Appointment Date:02/05/2024 03:00:00 PM Scheduled Provider:Lauro Simon MD Location:[facility] Appointment Type: Established 15 Diagnostic Tests PendingIFE and PE, Serum 11/20/23Immunoglobs. A/E/G/M 11/20/23Free K+L Lt Chains,Qn,S 11/20/23 [facility] Evaluation + Plan note Future Appointments Appointment Date:02/05/2024 03:00:00 PM Scheduled Provider:Lauro Simon MD Location:[facility] Appointment Type: Established 15 Appointment Date:03/04/2024 03:30:00 PM Scheduled Provider:Neftali Narayan MD Location:FT.ONCOLOGY Appointment Type:ONC Office Visit 30 (FT) Future Scheduled TestsComprehensive Metabolic Panel 02/26/24 [facility] Evaluation + Plan note Future Appointments Appointment Date:03/11/2024 03:00:00 PM Scheduled Provider:Neftali Narayan MD Location:FT.ONCOLOGY Appointment Type:ONC Office Visit 30 (FT) Appointment Date:05/27/2024 03:00:00 PM Scheduled Provider:Lauro Simon MD Location:[facility] Appointment Type:[address] General Surgery [place] Evaluation + Plan note Future Appointments Appointment Date:05/27/2024 03:00:00 PM Scheduled Provider:Lauro Simon MD Location:[facility] Appointment Type:[place] [address] Appointment Date:09/02/2024 03:20:00 PM Scheduled Provider:Neftali Narayan MD Location:FT.ONCOLOGY Appointment Type:ONC Office Visit 20 (FT) Future Scheduled TestsCBC w/ Auto Diff 09/11/24Comprehensive Metabolic Panel 09/11/24 [facility] Evaluation note Diagnosis Multiple sclerosis (HCC)- Primary Multiple [facility] Narrative No data available for this section [facility] No data available for this section [facility] No data available for this section [facility] Summary Purpose Family History No Family History [...] this section No Family History Records Found Advance Directives No Advanced Directives Records FoundNo Advanced Directives Records FoundNo Advanced Directives Records FoundNo Advanced Directives Records FoundNo Advanced Directives Records FoundNo Advanced Directives Records FoundNo Advanced Directives Records FoundNo Advanced Directives Records Found Additional Source Comments INFORMATION SOURCE (unrecogn ized section and content) DATE CREATED AUTHOR 01/01/2022 [facility] DATE CREATED AUTHOR AUTHOR'S ORGANIZ ATION 12/23/2022 [facility] DATE CREATED AUTHOR AUTHOR'S ORGANIZ ATION 11/09/2023 [facility] DATE CREATED AUTHOR AUTHOR'S ORGANIZ ATION 02/22/2024 [facility] DATE CREATED AUTHOR AUTHOR'S ORGANIZ ATION 02/28/2024 [facility] DATE CREATED AUTHOR AUTHOR'S ORGANIZ ATION 03/03/2024 [facility] DATE CREATED AUTHOR AUTHOR'S ORGANIZ ATION 03/05/[address] [facility] EPIC DATE CREATED AUTHOR AUTHOR'S ORGANIZ ATION 03/13/2024 [facility] Patient Care team informatio n (unrecognized section and content) 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 [facility] [employer] [facility]. provides no warranty or guarantee of the accuracy or completeness of information in this document.
[2024-03-14] MEDS: LACTATED RINGER'S SOLUTION 1,000 ML 50 ML IV ×2 (06:53→08:10)
[2024-03-14] MEDS: LIDOCAINE HCL 1% 100 MG/10 ML MDV INJ (07:25)
[2024-03-14] MEDS: EPINEPHrine 1 MG/10 ML SYRINGE INJ (07:40)
[2024-03-14] MEDS: TRANEXAMIC ACID 1,000 MG/10 ML AMPUL 1000 MG IV ×2 (07:45→10:09)
[2024-03-14] MEDS: 0.9 % SODIUM CHLORIDE 1,000 ML 75 ML IV (08:00)
--- NOTE | 2024-03-14 08:24 | W.PM.PROCNOT ---
Date of procedure: 03/14/24 Pre-op diagnosis: Bronchiectasis with mucus plugging Post-op diagnosis: same as pre-op Procedure: Procedure Diagnostic and therapeutic bronchoscopy with bronchoalveolar lavage Indication Bronchiectasis with mucus plugging, history of EVAN and pulmonary cryptococcus Findings 1. Diffuse mucus plugging 2. Friable mucosa 3. Significant bleeding from right middle lobe bronchus Anesthesia 1. General anesthesia - please see their records 2. Lidocaine 1% - 10mL Additional medications 1. Epinephrine 5mg 2. Tranexamic acid 200mg Specimens Bronchoalveolar lavage Estimated blood loss 250mL Complications Massive hemoptysis History Patient has history of MAC and cryptococcus. She has bronchiectasis and failed traditional treatments for clearance of secretions (PEP, saline nebs, vest) with increased work of breathing. Bronchoscopy was scheduled for clearance of secretions and to obtain a bronchoalveolar lavage from the right middle lobe and lingula for cultures. Informed consent was obtained after risks, benefits, and alternatives were discussed with the patient.? Description Time out was initiated to confirm the correct patient, site, and procedure with all present voicing in the affirmative. Patient was brought to the operating room suite where noninvasive monitoring was utilized.? Sedation & anesthesia were administered by the anesthesia department-please refer to their records for further information.? Tape was placed over the patient's eyes to prevent spillage of secretions.? A laryngeal mask airway was placed by anesthesia.? The vocal cords were observed without gross evidence of nodules, ulcers, or masses.? 5mL of 1% lidocaine were instilled topically to the vocal cords.? The bronchoscope was then passed between the vocal cords and advanced through the trachea. A mild amount of secretions adhered to the anterior trachea were noted. The bronchoscope reached the distal trachea where large mucus plugs were noted occluding both the left and right main bronchi, with saddle secretions across the main chanelle. An additional 5mL of 1% lidocaine were instilled topically to the main chanelle.? The retained secretions were suctioned to the point I could visualize the airway. The bronchoscope was then advanced through the right main bronchus to the right upper lobe with a moderate amount of secretions noted - they were suctioned and I was able to visualize the apical, posterior, and anterior segments.? The bronchoscope was advanced through the bronchus intermedius to the right middle lobe where a large obstructing mucus plug was noted. This was removed with the medial and lateral segments visualized.? The bronchoscope was then advanced to the right lower lobe superior with secretions removed, afterwards visualizing the medial, anterior, lateral, and posterior basilar segments.? The bronchoscope was retracted to the main chanelle and advanced through the left main bronchus to the left upper lobe with retained secretions which were suctioned. The upper division apicoposterior and anterior, as well as lingular superior and inferior segments were visualized.? The bronchoscope was then advanced into the left lower lobe where once again secretions were removed to the point the superior, anteromedial, lateral, and posterior basilar segments could be visualized. Mucosa throughout the airways appeared inflamed and friable. There were no endobronchial lesions visualized. Next, the bronchoscope was wedged into the right middle lobe to obtain a bronchoalveolar lavage. Saline was instilled, and when suction was applied, there was a large amount of blood returned. There was hemorrhaging from the right middle lobe which was unable to be stopped with suction tamponade. At this point, the hemorrhaging compromised her respiratory status with inability to ventilate the patient. The LMA was removed and an 8.0 endotracheal tube was placed. The patient was positioned in a right lateral recumbent position. The bronchoscope was inserted through the endotracheal tube. Blood was suctioned with a large amount of clot occluding the trachea and main bronchi. These were removed and the bronchoscope was able to be positioned at the right middle lobe bronchus where 2mg epinephrine was administered topically. Bleeding continued and an additional 3mg of epinephrine was administered topically. This still did not stop the bleeding. 200mg tranexamic acid was applied topically which finally stopped active bleeding. A large hemostatic plug developed from the right middle lobe extending in to the right main bronchus. This was deemed to be beneficial and no attempts to remove this plug were made at this time. Anesthesia noted improvement to the patient's ventilation with better tidal volumes. Patient did not require any ACLS / CPR. I estimate a 250mL blood loss during this time. Due to the massive hemorrhage, I felt that keeping the patient here at [facility] was too risky, especially if she were to hemorrhage again. The was updated on the patient's status and recommendation to transfer to a tertiary care facility where there are more advanced services available (e.g. interventional bronchoscopy, interventional radiology, thoracic surgery). He verbalized agreement and consent to transfer the patient; he requested [facility]. I contact [facility] and spoke with the ICU team who accepted the patient for transfer under Dr. Adler. I recommended transfer via flight due to the critical nature of her airway. Unfortunately, none of the flight crews we contacted were flying today due to the weather/fog. By this time, the patient was transported to PACU. Discussed case closely with anesthesia - her oxygenation and ventilation have improved. She was started on a Precedex drip, requiring phenylephrine for blood pressure support. FiO2 is being weaned down slowly. I notified the patient's . He asked about going towards [place] for flight - I explained that we have the patient currently stabilized from a respiratory and hemodynamic standpoint that I feel that ICU mobile/ground is acceptable at this point. The voiced agreement. Patient will be transported to [facility] ICU. Anesthesia: DAWSON Surgeon: Stevie Fajardo Estimated blood loss (mL): 250 Condition: critical Disposition: other (Transfer to [facility])
[2024-03-14 08:26] VITALS: BP 92/57; PULSE 80; PULSE 81; TEMP 36.3; O2SAT 100
[2024-03-14 08:35] LABS: Basophils Absolute Auto 0.1 10^3/uL (0.0-0.1); Basophils Percent Auto 0.7 % (0.2-2.0); Eosinophils Absolute Auto 0.1 10^3/uL (0.0-0.7); Eosinophils Percent Auto 1.3 % (0.9-7.0); Hematocrit 31.3 % (36.0-48.0); Hemoglobin 9.8 g/dL (12.0-16.0); Immature Granulocytes Abs Auto 0.02 10^3/uL (0.00-0.03); Immature Granulocytes Pct Auto 0.3 % (0.0-0.5); Lymphocytes Absolute Auto 0.9 10^3/uL (1.2-3.8); Lymphocytes Percent Auto 13.5 % (20.5-60.0); Mean Corpuscular HGB Conc 31.3 g/dL (29.9-35.2); Mean Corpuscular Hemoglobin 29.9 pg (26.7-34.0); Mean Corpuscular Volume 95.4 fL (81.0-99.0); Mean Platelet Volume 9.1 fL (9.5-13.5); Monocytes Absolute Auto 0.7 10^3/uL (0.3-0.8); Monocytes Percent Auto 10.2 % (1.7-12.0); Platelet Count 243 10^3/uL (150-450); Red Blood Count 3.28 10^6/uL (4.20-5.40); Red Cell Distribution Width 14.6 % (11.0-15.0); White Blood Count 6.8 10^3/uL (4.0-11.0)
[2024-03-14] MEDS: SODIUM CHLORIDE 0.9% IV (08:37)
[2024-03-14] MEDS: PHENYLEPHRINE HCL IV (08:37)
[2024-03-14] MEDS: DEXMEDETOMIDINE HCL 200 MCG in 0.9 % SODIUM CHLORIDE 50 ML IV (08:40)
[2024-03-14 08:50] LABS: Alanine Aminotransferase 14 U/L (14-59); Albumin Globulin Ratio 0.7; Albumin Level 2.4 g/dL (3.4-5.0); Alkaline Phosphatase 41 U/L (46-116); Anion Gap 11.8; Aspartate Amino Transferase 17 U/L (15-37); BUN Creatinine Ratio 30.2; Bilirubin Total 0.2 mg/dL (0.2-1.0); Calcium 8.2 mg/dL (8.5-10.1); Carbon Dioxide 25.4 mmol/L (21.0-32.0); Chloride 108 mmol/L (98-107); Estimated GFR (African America >60 (>=60); Estimated GFR (Non-African Ame >60 (>=60); Globulin 3.6 g/dL; Glucose 106 mg/dL (74-106); INR 1.03; Partial Thromboplastin Time 29.3 sec (22.3-36.2); Potassium 4.2 mmol/L (3.5-5.1); Prothrombin Time 10.9 sec (9.0-11.6); Sodium 141 mmol/L (136-145)
--- NOTE | 2024-03-14 08:59 | RESP.RT ---
Titrated down to 70% FiO2
[2024-03-14] MEDS: PROPOFOL 1,000 MG/100 ML VIAL 8.295 MG IV (09:37)
--- NOTE | 2024-03-14 14:40 | PC.NURSE ---
Addendum entered by Carrol Rizvi RN 03/14/24 16:14: Clarification on medication given at 1023. Medication given was Thrombin. Original Note: 0826- Received patient from OR. Patient orally intubated with #8.0 taped at 24cm @ lip. Patient placed on mechanical ventilator per CPS. Dr. Trimble and Dr. Fajardo present at bedside. (0837) Dom-synephrine drip started as ordered. See RX sheet. (0840) Precedex started as ordered. See RX sheet. (0844) Fi02 decreased to 70% per CPS. (0845) Dr. Fajardo states that PCXR isn't needed at present time. (0900) See posted vital signs. Dom-Synephrine decreased to 0.4mcg as instructed per Dr. Trimble. (0902) Family to bedside. Family updated on patients status. All questions answered. Family tearful at times. Reassurance given. (0906) Dom-Synephrine stopped as instructed per Dr. Trimble. See posted vital signs. (0916)-Fi02 decreased to 60% per CPS. (0920)-Patient suctioned via ET for moderate amount of bloody secretions. Mouth suctioned orally for small amount of bloody secretions. (0937) Patient breathing above ventilator settings. Propofol drip initiated at @25mcg as ordered. (0945) Patient continues to breathe above ventilator settings. Propofol drip increased to 50mcg as instructed per Dr. Trimble. (0952) BP decreased. See posted vital signs. Propofol decreased to 25mcg as instructed per Dr. Trimble. (0955) See posted vital signs. Dom-synephrine restarted as instructed per Dr. Trimble. (1004) Precedex restarted as instructed per Dr. Trimble. (1009) Dr. Fajardo at bedside. Moderate amount of bleeding noted when suctioning via ET tube. Dr. Fajardo gives 300mg TXA via ET tube. (1010) [facility] ICU Transport here. (1015) SAO2 reading 77%. Patient placed on 100% and suctioned for moderate amount of bloody secretions via ET tube. Small blood clot noted in suction catheter. Family members updated on patients condition. (1019) Dr. Fajardo performs bronchoscopy at bedside. (1022) Dr. Trimble gives Rocuronium 40mg via IV. (1023) Dr. Fajardo injects Thrombus 5000 units via ET during bronchoscopy. (1025) Bronchoscopy completed. (1030) Patient suctioned via ET for moderate bloody secretions. Suctioned for moderate amount bloody secretions orally. (1035) Family members at bedside and updated on condition. Family members tearful. Reassurance given. (1040) Patient transported to [facility] via [facility] ICU Transport. See completed assessments and vital signs. (1115) Report called to Jayshree CRAMER at [facility] in the MICU.
== END 2024-03-14 10:40 | disposition short-term general hospital (02) ==
PROVIDERS: PCP Family Medicine; Visit Provider Internal Medicine
PROC: (CPT 31624; principal; 2024-03-14 07:15)
DX: J47.9 Bronchiectasis, uncomplicated (principal); J95.61 Intraoperative hemorrhage and hematoma of a respiratory system organ or structure complicating a respiratory system procedure; J98.09 Other diseases of bronchus, not elsewhere classified; Z86.16 Personal history of COVID-19; Z86.19 Personal history of other infectious and parasitic diseases
CPT/HCPCS: 31624; 36415; 80053; 85025; 85610; 85730; 87015; 87070; 87075; 87102; 87116; 87205; 87206; 94002; 99999; J0171; J0330; J1100; J2250; J2371; J2405; J2704; J3010

== ENCOUNTER 2024-03-26 23:40 | Emergency (ER) | payer MEDICARE, OTHER, SELFPAY ==
[2024-03-26] MEDS: MIDAZOLAM HCL 2 MG/2 ML VIAL 4 MG IV (23:40)
--- NOTE | 2024-03-26 23:42 | XR_ITS ---
The [address] [address] Patient Name: MIRIAM DE PAZ MRN: [id number] date: 1960 Sex: F Assigned Patient Location: ER Current Patient Location: ED.MAIN Accession/Order Number: [id number] Exam Date: 03/26/2024 23:48 Report Date: 03/27/2024 00:25 At the request of: BECKIE MONTES Procedure: XR chest 1V SINGLE VIEW CHEST: 03/26/2024 11:48 PM EDT CLINICAL HISTORY:intubation COMPARISONS: None. TECHNIQUE: Single frontal view of the chest, utilizing portable technique. Portable radiography should be considered a technically compromised study. Strongly consider dedicated PA and lateral chest radiographs, as clinically indicated. FINDINGS: LINES AND TUBES: Endotracheal tube tip in good position and clavicular head level approximately 5.1 cm above chanelle. External cardiac monitoring leads. CARDIAC SILHOUETTE: Within normal limits. MEDIASTINAL AND HILAR CONTOUR: Within normal limits. PULMONARY PARENCHYMA AND PLEURA: Widespread mixed alveolar infiltrates throughout right perihilar lower lobe and left lower lobe. Multifocal pneumonia with slight sparing of the upper lobes. No pneumothorax. No pleural effusion. OSSEOUS STRUCTURES:Nothing significant. OTHER COMMENTS:None. XR/XR chest 1V IMPRESSION: Bilateral multifocal pneumonia mostly lung bases greater on the right. Satisfactory endotracheal tube position. This report was generated with voice recognition software. Effort has been made to ensure accuracy of this report, however, occasional wording errors may persist. Please contact our office with any questions. Electronically authenticated by: RODOLFO BANG Date: 03/27/2024 00:25
--- OUTSIDE RECORDS SUMMARY | 2024-03-26 23:48 | XMS_ITS | CCD ---
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 Attending Unavailable Al-Marrawi, Masoodd Yaser Admitting Unavailabl e Al-Marrawi, Masoodd Yaser Attending Unavailabl e Al-Marrawi, Mhd Yaser Attending Unavailabl e Al-Marrawi, Mhd Yaser Admitting Unavailabl e MoLauro kaufman E. Attending Unavailable Al-Marrawi, Neftali Yaser Attending Unavailabl e Al-Marrawi, Mhd Yaser Referring Unavailabl e Al-Marrawi, Mhd Yaser Admitting Unavailabl e Dembossuellen, Muna Fuentes Attending Unavailable Kaceyboske, Muna Gina Admitting Unavailable Al-Marrawi, Masoodd Yaser Attending Unavailabl e Al-Marrawi, Mhd Yaser Admitting Unavailabl e Al-Marrawi, Mhd Yaser Attending Unavailabl e Al-Marrawi, Mhd Yaser Attending Unavailabl e Al-Marrawi, Mhd Yaser Attending Unavailabl e MoLauro kaufman. Referring Unavailable Moshae, Lauro Pritchard. Attending Unavailable Al-Marrawi, Neftali Carmonaser Attending Unavailabl e Dembossuellen, Muna Fuentes Attending Unavailable Tee Lobato Consulting Unavailable MoLauro kaufman Attending Unavailable MoLauro kaufman Referring Unavailable MoLauro kaufman. Admitting Unavailable Tee Lobato Consulting Unavailable CheryleTee Consulting Unavailable Cheryle, Tee Perez Consulting Unavailable CheryleTee Consulting Unavailable CheryleTee Consulting Unavailable CheryleTee Consulting Unavailable CheryleTee Consulting Unavailable CheryleTee Consulting Unavailable CheryleTee Consulting Unavailable MoLauro kaufman. Attending Unavailable MoLauro kaufman. Attending Unavailable MouranyLauro. Attending Unavailable MoLauro kaufman. Attending Unavailable ASSALY, RAGHEB Referring Unavailable HADZIAHMETOVIC, MERSIHA Attending Unavaila ble ASSALY, RAGHEB Referring Unavailable HADZIAHMETOVIC, MERSIHA Attending Unavaila ble HADZIAHMETOVIC, MERSLUCIA Attending Unavaila ble HADZIAHMETOVIC, MERSLUCIA Attending Unavaila ble FREDMKELIN HALE Attending Unavailable FREDMKELIN HALE Attending Unavailable ASSALY, RAGHEB Referring Unavailable ASSALY, RAGHEB Referring Unavailable ASSALY, RAGHEB Referring Unavailable PIRKL, DEA Referring Unavailable ASSALY, RAGHEB Referring Unavailable PIRKL, DEA Referring Unavailable YUSUF, LAURA Referring Unavailable ANIBAL, JO ANN Referring Unavailable HADZIAHMETOVIC, MERSIHA Attending Unavaila ble HADZIAHMETOVIC, MERSIHA Referring Unavaila ble YUSUF, LAURA Referring Unavailable YUSUF, LAURA Referring Unavailable JOSE, MIRRA Referring Unavailable JOSE, MIRRA Referring Unavailable YUSUF, LAURA Referring Unavailable ASSALY, RAGHEB Referring Unavailable SAMSA, ULI Referring Unavailable ASSALY, RAGHEB Admitting Unavailable YUSUF, LAURA Attending Unavailable ASSALY, RAGHEB Referring Unavailable ASSALY, RAGHEB Referring Unavailable ASSALY, RAGHEB Referring Unavailable Allergies Allergy Classification Reported Allergen(s) Allergy Type Date of Onset Reaction(s) Facility (2 sources) No Known Medication Allergies; Translations: [No Known Medication Allergies] Propensity to adverse reactions (disorder) [facility] Repository (1 source) ALLERGIES NOT ON FILE; Translations: [ALLERGIES NOT ON FILE] Propensity to adverse reactions (disorder) [facility] Repository Medications Current Medications Medication Drug Class(es) [...] 2 spray(s) nasal route twice daily Ipratropium Mckenzie (ATROVENT) 0.03 % nasal spray Indications: Chronic vasomotor rhinitis Use 2 Sprays in each nostril twice daily. for up to three(3) weeks 1 Bottle 1 07/19/2017 Active letrozole 2.5 mg oral tablet (12 sources) Aromatase Inhibitor Start: 12-04-2023 take 1 tablet by mouth once daily letrozole 2.5 mg Tab 2.5 mg = 1 tab(s), Oral, Daily, # 90 tab(s), Refills(s) 1, Pharmacy: [facility]/pharmacy #[id number], 165, cm, 12/04/23 14:36:00 EDT, Height/Length Dosing, 54.8, kg, 12/04/23 14:36:00 EDT, Weight Dosing Start Date: 12/04/23 Status: Ordered Start: 05-22-2023 End: 11-18-2023 take 1 tablet by mouth once daily Femara 2.5 mg Tab 2.5 mg = 1 tab(s), Oral, Daily, Do not start until 1 week after radiation is finished., X 30 day(s), # 30 tab(s), Refills(s) 5, Pharmacy: [facility]/pharmacy #[id number], 165, cm, 05/22/23 14:14:00 EST, [...] taking., # 12 tab(s), Refills(s) 1, Pharmacy: [facility]/pharmacy #[id number], 165, cm, 09/04/23 14:48:00 EST, [...] day, # 12 tab(s), Refills(s) 1, Pharmacy: [facility]/pharmacy #[id number], 165, cm, 12/04/23 14:36:00 EDT, [...] day, # 12 tab(s), Refills(s) 1, Pharmacy: [facility]/pharmacy #[id number], 165, cm, 09/04/23 14:48:00 EST, [...] sources) H/O: respiratory disease 02-24-2023 Episodic Other lower respiratory disease (2 sources) Hemoptysis; Translations: [Hemoptysis] Onset: 03-14-2024 Episodic Other screening for suspected conditions (not [...] Test Name Value Interpretation Reference Range Facility 30on 03-25-2024 30 Normal [facility] 30 Normal [facility] ANTI-XA (HEPARIN LEVEL)on HEPARIN UNFRACTIONATED (U/ML) IN PPP BY CHROMOGENIC METHOD 0.24 IU/mL Low 0.3-0.7 [facility] Comment on above: Order Comment: Check anti-Xa level every 6 hours while on heparin infusion, or per protocol. Result Comment: [place] roxaban and Apixaban will interfere with the anti Xa assay used to monitor UFH and LMWH. Performed By: #### L [id number] ####[facility] ([facility])[address] [place] [address] HEPARIN UNFRACTIONATED (U/ML) IN PPP BY CHROMOGENIC METHOD 0.10 IU/mL Invalid Interpretation Code 0.3-0.7 [facility] Comment on above: Order Comment: Check anti-Xa level every 6 hours while on heparin infusion, or per protocol. Result Comment: [place] roxaban and Apixaban will interfere with the anti Xa assay used to monitor UFH and LMWH. Performed By: #### L [id number] ####[facility] ([facility])[address] [facility] [address] BASIC METABOLIC PANELon Anion gap [Moles/Vol] 13 mmol/L Normal 7-20 [facility] Comment on above: Performed By: #### L [id number] ####[facility] ([facility])[address] [facility] [address] Calcium [Mass/Vol] 9.4 mg/dL Normal 8.6-10.3 [facility] Comment on above: Performed By: #### L [id number] ####[facility] ([facility])[address] [facility] [address] Chloride [Moles/Vol] 100 mmol/L Normal 98-107 [facility] Comment on above: Performed By: #### L [id number] ####[facility] ([facility] [place] [address] CO2 [Moles/Vol] 27 mmol/L Normal 21-31 [facility] Comment on above: Performed By: #### L [id number] ####[facility] ([facility])[address] [place] [address] Creatinine [Mass/Vol] 0.52 mg/dL Low 0.60-1.20 [facility] Comment on above: Performed By: #### L [id number] ####[facility] ([facility])[address] [place] [address] GLOMERULAR FILTRATION RATE ML/MIN/1.73 SQ M.PREDICTED 103.0 mL/min/1.73m*2 Normal >60.0 [facility] Comment on above: Result Comment: The [facility]???s estimated glomerular filtration rate (eGFR) will no longer include consideration of race in its calculation. The National Kidney Foundation???s eGFR Task Force developed new recommendations for the estimation of the glomerular filtration rate in the [place] They recommend immediate implementation of the new equation refit without the race variable in all laboratories because the calculation does not include race. In addition to not including race in the calculation and reporting, it included diversity in its development, and has acceptable performance characteristics and potential consequences that do not disproportionately affect any one group of individuals. Performed By: #### L [id number] ####[facility] ([facility])[address] [place] [address] Glucose [Mass/Vol] 109 mg/dL High 70-100 [facility] Comment on above: Performed By: #### L [id number] ####[facility] ([facility])[address] [place] [address] Potassium [Moles/Vol] 4.6 mmol/L Normal 3.5-5.1 [facility] Comment on above: Performed By: #### L [id number] ####[facility] ([facility])[address] [place] [address] Sodium [Moles/Vol] 135 mmol/L Low 136-145 [facility] Comment on above: Performed By: #### L [id number] ####[facility] ([facility])[address] [place] [address] Urea nitrogen [Mass/Vol] 22 mg/dL Normal 7-25 [facility] Comment on above: Performed By: #### L [id number] ####[facility] ([facility])[address] [place] [address] UREA NITROGEN/CREATININE (MASS RATIO) IN SER/PLAS 42.3 Normal [facility] Comment on above: Performed By: #### L [id number] ####[facility] ([facility])[address] [place] [address] CBCon 03-25-2024 Erythrocyte distribution width (RBC) [Ratio] 14.6 % Normal 11.5-15.0 [facility] Comment on above: Performed By: #### L [id number] ####[facility] ([facility])[address] [place] [address] ERYTHROCYTE MEAN CORPUSCULAR HEMOGLOBIN CONCENTRATION (G/DL) BY AUTOMATED 31.3 g/dL Low 32.0-35.0 [facility] Comment on above: Performed By: #### L [id number] ####[facility] ([facility])[address] [place] [address] Hematocrit (Bld) [Volume fraction] 33.5 % Low 36.0-48.0 [facility] Comment on above: Performed By: #### L [id number] ####[facility] ([facility])[address] [place] [address] Hemoglobin (Bld) [Mass/Vol] 10.5 g/dL Low 12.0-15.0 [facility] Comment on above: Performed By: #### L [id number] ####[facility] ([facility])[address] [place] [address] MCH (RBC) [Entitic mass] 29.6 pg Normal 27.0-33.0 [facility] Comment on above: Performed By: #### L [id number] ####[facility] ([facility])[address] [place] [address] MCV (RBC) [Entitic vol] 94.4 fL Normal 82.0-98.0 [facility] Comment on above: Performed By: #### L [id number] ####[facility] ([facility])[address] [place] [address] PLATELETS (10*3/UL) IN BLOOD AUTOMATED COUNT 321 10*3/uL Normal 150-400 [facility] Comment on above: Performed By: #### L [id number] ####[facility] ([facility])[address] [place], [place] [address] RBC (Bld) [#/Vol] 3.55 10*6/uL Low 3.80-5.00 [facility] Comment on above: Performed By: #### L [id number] ####[facility] ([facility])[address] [place], [place] [address] WBC (Bld) [#/Vol] 8.51 10*3/uL Normal 4.00-10.60 [facility] Comment on above: Performed By: #### L [id number] ####[facility] ([facility])[address] [place], [place] [address] Erythrocyte distribution width (RBC) [Ratio] 14.5 % Normal 11.5-15.0 [facility] Comment on above: Performed By: #### L [id number] ####[facility] ([facility])[address] [place], [place] [address] ERYTHROCYTE MEAN CORPUSCULAR HEMOGLOBIN CONCENTRATION (G/DL) BY AUTOMATED 30.7 g/dL Low 32.0-35.0 [facility] Comment on above: Performed By: #### L [id number] ####[facility] ([facility])[address] [place] [address] Hematocrit (Bld) [Volume fraction] 28.3 % Low 36.0-48.0 [facility] Comment on above: Performed By: #### L [id number] ####[facility] ([facility])[address] [place] [address] Hemoglobin (Bld) [Mass/Vol] 8.7 g/dL Low 12.0-15.0 [facility] Comment on above: Performed By: #### L [id number] ####[facility] ([facility])[address] [place] [address] MCH (RBC) [Entitic mass] 28.8 pg Normal 27.0-33.0 [facility] Comment on above: Performed By: #### L [id number] ####[facility] ([facility])[address] [place] [address] MCV (RBC) [Entitic vol] 93.7 fL Normal 82.0-98.0 [facility] Comment on above: Performed By: #### L [id number] ####[facility] ([facility])[address] [place] [address] PLATELETS (10*3/UL) IN BLOOD AUTOMATED COUNT 350 10*3/uL Normal 150-400 [facility] Comment on above: Performed By: #### L [id number] ####[facility] ([facility])[address] [place] [address] RBC (Bld) [#/Vol] 3.02 10*6/uL Low 3.80-5.00 [facility] Comment on above: Performed By: #### L [id number] ####[facility] ([facility])[address] [place] [address] WBC (Bld) [#/Vol] 6.83 10*3/uL Normal 4.00-10.60 [facility] Comment on above: Performed By: #### L [id number] ####[facility] ([facility])[address] [place] [address] COMPREHENSIVE METABOLIC PANE Flash 03-25-2024 Albumin [Mass/Vol] 3.2 g/dL Low 3.5-5.7 [facility] Comment on above: Performed By: #### L [id number] ####[facility] ([facility])[address] [place] [address] ALP [Catalytic activity/Vol] 41 U/L Normal 34-104 [facility] Comment on above: Performed By: #### L [id number] ####[facility] ([facility])[address] [place] [address] ALT [Catalytic activity/Vol] 13 U/L Normal 7-52 [facility] Comment on above: Performed By: #### L [id number] ####[facility] ([facility])[address] [place] [address] Anion gap [Moles/Vol] 10 mmol/L Normal 7-20 [facility] Comment on above: Performed By: #### L [id number] ####[facility] ([facility])[address] [place] [address] AST [Catalytic activity/Vol] 19 U/L Normal 13-39 [facility] Comment on above: Performed By: #### L [id number] ####[facility] ([facility])[address] [place] [address] Bilirubin [Mass/Vol] 0.3 mg/dL Normal 0.3-1.0 [facility] Comment on above: Performed By: #### L [id number] ####[facility] ([facility])[address] [place] [address] Calcium [Mass/Vol] 8.6 mg/dL Normal 8.6-10.3 [facility] Comment on above: Performed By: #### L [id number] ####[facility] ([facility])[address] [place] [address] Chloride [Moles/Vol] 101 mmol/L Normal 98-107 [facility] Comment on above: Performed By: #### L [id number] ####[facility] ([facility])[address] [place] [address] CO2 [Moles/Vol] 30 mmol/L Normal 21-31 [facility] Comment on above: Performed By: #### L [id number] ####[facility] ([facility])[address] [place] [address] Creatinine [Mass/Vol] 0.49 mg/dL Low 0.60-1.20 [facility] Comment on above: Performed By: #### L [id number] ####[facility] ([facility])[address] [place] [address] GLOMERULAR FILTRATION RATE ML/MIN/1.73 SQ M.PREDICTED 104.5 mL/min/1.73m*2 Normal >60.0 [facility] Comment on above: Result Comment: The [facility]???s estimated glomerular filtration rate (eGFR) will no longer include consideration of race in its calculation. The National Kidney Foundation???s eGFR Task Force developed new recommendations for the estimation of the glomerular filtration rate in the [place] They recommend immediate implementation of the new equation refit without the race variable in all laboratories because the calculation does not include race. In addition to not including race in the calculation and reporting, it included diversity in its development, and has acceptable performance characteristics and potential consequences that do not disproportionately affect any one group of individuals. Performed By: #### L [id number] ####[facility] ([facility])[address] [place] [address] Glucose [Mass/Vol] 108 mg/dL High 70-100 [facility] Comment on above: Performed By: #### L [id number] ####[facility] ([facility])[address] [place] [address] Potassium [Moles/Vol] 4.2 mmol/L Normal 3.5-5.1 [facility] Comment on above: Performed By: #### L [id number] ####[facility] ([facility])[address] [place] [address] Protein [Mass/Vol] 6.5 g/dL Normal 6.0-8.3 [facility] Comment on above: Performed By: #### L [id number] ####[facility] ([facility])[address] [place] [address] Sodium [Moles/Vol] 137 mmol/L Normal 136-145 [facility] Comment on above: Performed By: #### L [id number] ####[facility] ([facility])[address] [place] [address] Urea nitrogen [Mass/Vol] 22 mg/dL Normal 7-25 [facility] Comment on above: Performed By: #### L [id number] ####[facility] ([facility])[address] [place] [address] UREA NITROGEN/CREATININE (MASS RATIO) IN SER/PLAS 44.9 Normal [facility] Comment on above: Performed By: #### L [id number] ####[facility] ([facility])[address] [place] [address] KAPPA / LAMBDA LIGHT CHAINS, FREEon 03-25-2024 IMMUNOGLOBULIN LIGHT CHAINS KAPPA/LAMBDA (MASS RATIO) IN SERUM 1.29 Normal 0.22-1.74 [facility] Comment on above: Result Comment: Test Performed by [employer] [address] [place], [place] [id number] - Released 03/25/2024 18:34 Performed By: #### L [id number] ####[facility] [id number] [place] [id number] IMMUNOGLOBULIN LIGHT CHAINS.KAPPA (MG/DL) IN SERUM 51.3 mg/L High <20.8 [facility] Comment on above: Result Comment: Perf ormed using Diazyme reagent on [employer]. Results obtained with different assay methods cannot be used interchangeably. Performed By: #### L [id number] ####[facility] [id number] [place] [address] IMMUNOGLOBULIN LIGHT CHAINS.LAMBDA (MG/DL) IN SERUM 39.9 mg/L High 4.2-27.7 [facility] Comment on above: Result Comment: Perf ormed using Diazyme reagent on [employer]. Results obtained with different assay methods cannot be used interchangeably. Performed By: #### L [id number] ####[facility] [id number] [place] [address] MAGNESIUMon 03-25-2024 Magnesium [Mass/Vol] 1.8 mg/dL Low 1.9-2.7 [facility] Comment on above: Performed By: #### L [id number] ####[facility] ([facility])[address] [place] [address] 30on 03-24-2024 30 Normal [facility] APTTon 03-24-2024 ACTIVATED PARTIAL THROMBOPLASTIN TIME IN PPP BY COAGULATION ASSAY 27.4 Seconds Normal 25.0-35.0 [facility] Comment on above: Order Comment: Basel ine aPTT before initiating heparin infusion. Result Comment: Clin ical significance of the APTT is questionable in the presence of heparin. Performed By: #### L [id number] ####[facility] ([facility])[address] [place] [address] CBC WITH AUTO DIFFERENTIALon 03-24-2024 Basophils (Bld) [#/Vol] 0.04 10*3/uL Normal 0.00-0.20 [facility] Comment on above: Performed By: #### L [id number] ####[facility] ([facility])[address] [place] [address] Basophils/100 WBC (Bld) 0.6 % Normal 0.0-1.0 [facility] Comment on above: Performed By: #### L [id number] ####[facility] ([facility])[address] [place] [address] Eosinophils (Bld) [#/Vol] 0.25 10*3/uL Normal 0.00-0.50 [facility] Comment on above: Performed By: #### L [id number] ####[facility] ([facility])[address] [place] [address] Eosinophils/100 WBC (Bld) 3.5 % Normal 0.0-6.0 [facility] Comment on above: Performed By: #### L [id number] ####[facility] ([facility])[address] [place] [address] Erythrocyte distribution width (RBC) [Ratio] 14.5 % Normal 11.5-15.0 [facility] Comment on above: Performed By: #### L [id number] ####[facility] ([facility])[address] [place] [address] ERYTHROCYTE MEAN CORPUSCULAR HEMOGLOBIN CONCENTRATION (G/DL) BY AUTOMATED 30.7 g/dL Low 32.0-35.0 [facility] Comment on above: Performed By: #### L [id number] ####[facility] ([facility])[address] [place] [address] Hematocrit (Bld) [Volume fraction] 27.4 % Low 36.0-48.0 [facility] Comment on above: Performed By: #### L [id number] ####[facility] ([facility])[address] [place] [address] Hemoglobin (Bld) [Mass/Vol] 8.4 g/dL Low 12.0-15.0 [facility] Comment on above: Performed By: #### L [id number] ####[facility] ([facility])[address] [place] [address] Immature granulocytes (Bld) [#/Vol] 0.04 10*3/uL Normal 0.00-0.20 [facility] Comment on above: Performed By: #### L [id number] ####[facility] ([facility])[address] [place] [address] Immature granulocytes/100 WBC (Bld) 0.6 % Normal 0.0-1.0 [facility] Comment on above: Performed By: #### L [id number] ####[facility] ([facility])[address] [place] [address] Lymphocytes (Bld) [#/Vol] 0.93 10*3/uL Low 1.20-4.00 [facility] Comment on above: Performed By: #### L [id number] ####[facility] ([facility])[address] [place] [address] Lymphocytes/100 WBC (Bld) 12.9 % Low 20.0-45.0 [facility] Comment on above: Performed By: #### L [id number] ####[facility] ([facility])[address] [place] [address] MCH (RBC) [Entitic mass] 29.5 pg Normal 27.0-33.0 [facility] Comment on above: Performed By: #### L [id number] ####[facility] ([facility])[address] [place] [address] MCV (RBC) [Entitic vol] 96.1 fL Normal 82.0-98.0 [facility] Comment on above: Performed By: #### L [id number] ####[facility] ([facility])[address] [place] [address] Monocytes (Bld) [#/Vol] 0.57 10*3/uL Normal 0.10-1.00 [facility] Comment on above: Performed By: #### L [id number] ####[facility] ([facility])[address] [place] [address] Monocytes/100 WBC (Bld) 7.9 % Normal 5.0-12.0 [facility] Comment on above: Performed By: #### L [id number] ####[facility] ([facility])[address] [place] [address] Neutrophils (Bld) [#/Vol] 5.39 10*3/uL Normal 1.60-7.60 [facility] Comment on above: Performed By: #### L [id number] ####[facility] ([facility])[address] [place] [address] Neutrophils/100 WBC (Bld) 74.5 % High 40.0-72.0 [facility] Comment on above: Performed By: #### L [id number] ####[facility] ([facility])[address] [place] [address] NRBC (PER 100 WBCS) BY AUTOMATED COUNT 0.0 % Normal 0 [facility] Comment on above: Performed By: #### L [id number] ####[facility] ([facility])[address] [place] [address] PLATELETS (10*3/UL) IN BLOOD AUTOMATED COUNT 303 10*3/uL Normal 150-400 [facility] Comment on above: Performed By: #### L [id number] ####[facility] ([facility])[address] [place] [address] RBC (Bld) [#/Vol] 2.85 10*6/uL Low 3.80-5.00 [facility] Comment on above: Performed By: #### L [id number] ####[facility] ([facility])[address] [place] [address] WBC (Bld) [#/Vol] 7.22 10*3/uL Normal 4.00-10.60 [facility] Comment on above: Performed By: #### L [id number] ####[facility] ([facility])[address] [place] [address] COMPREHENSIVE METABOLIC PANE Flash 03-24-2024 Albumin [Mass/Vol] 3.0 g/dL Low 3.5-5.7 [facility] Comment on above: Performed By: #### L [id number] ####[facility] ([facility])[address] [place] [address] ALP [Catalytic activity/Vol] 39 U/L Normal 34-104 [facility] Comment on above: Performed By: #### L [id number] ####[facility] ([facility])[address] [place] [address] ALT [Catalytic activity/Vol] 13 U/L Normal 7-52 [facility] Comment on above: Performed By: #### L [id number] ####[facility] ([facility])[address] [place] [address] Anion gap [Moles/Vol] 8 mmol/L Normal 7-20 [facility] Comment on above: Performed By: #### L [id number] ####[facility] ([facility])[address] [place] [address] AST [Catalytic activity/Vol] 20 U/L Normal 13-39 [facility] Comment on above: Performed By: #### L [id number] ####[facility] ([facility])[address] [place] [address] Bilirubin [Mass/Vol] 0.3 mg/dL Normal 0.3-1.0 [facility] Comment on above: Performed By: #### L [id number] ####[facility] ([facility])[address] [place] [address] Calcium [Mass/Vol] 8.6 mg/dL Normal 8.6-10.3 [facility] Comment on above: Performed By: #### L [id number] ####[facility] ([facility])[address] [place] [address] Chloride [Moles/Vol] 106 mmol/L Normal 98-107 [facility] Comment on above: Performed By: #### L [id number] ####[facility] ([facility])[address] [place] [address] CO2 [Moles/Vol] 30 mmol/L Normal 21-31 [facility] Comment on above: Performed By: #### L [id number] ####[facility] ([facility])[address] [place] [address] Creatinine [Mass/Vol] 0.42 mg/dL Low 0.60-1.20 [facility] Comment on above: Performed By: #### L [id number] ####[facility] ([facility])[address] [place] [address] GLOMERULAR FILTRATION RATE ML/MIN/1.73 SQ M.PREDICTED 108.5 mL/min/1.73m*2 Normal >60.0 [facility] Comment on above: Result Comment: The [facility]???s estimated glomerular filtration rate (eGFR) will no longer include consideration of race in its calculation. The National Kidney Foundation???s eGFR Task Force developed new recommendations for the estimation of the glomerular filtration rate in the [place] They recommend immediate implementation of the new equation refit without the race variable in all laboratories because the calculation does not include race. In addition to not including race in the calculation and reporting, it included diversity in its development, and has acceptable performance characteristics and potential consequences that do not disproportionately affect any one group of individuals. Performed By: #### L [id number] ####[facility] ([facility])[address] [place] [address] Glucose [Mass/Vol] 102 mg/dL High 70-100 [facility] Comment on above: Performed By: #### L [id number] ####[facility] ([facility])[address] [place] [address] Potassium [Moles/Vol] 3.9 mmol/L Normal 3.5-5.1 [facility] Comment on above: Performed By: #### L [id number] ####[facility] ([facility])[address] [place] [address] Protein [Mass/Vol] 6.2 g/dL Normal 6.0-8.3 [facility] Comment on above: Performed By: #### L [id number] ####[facility] ([facility])[address] [place] [address] Sodium [Moles/Vol] 140 mmol/L Normal 136-145 [facility] Comment on above: Performed By: #### L [id number] ####[facility] ([facility])[address] [place] [address] Urea nitrogen [Mass/Vol] 28 mg/dL High 7-25 [facility] Comment on above: Performed By: #### L [id number] ####[facility] ([facility])[address] [place] [address] UREA NITROGEN/CREATININE (MASS RATIO) IN SER/PLAS 66.7 Normal [facility] Comment on above: Performed By: #### L [id number] ####[facility] ([facility])[address] [place] [address] PLATELET COUNTon 03-24-2024 PLATELETS (10*3/UL) IN BLOOD AUTOMATED COUNT 345 10*3/uL Normal 150-400 [facility] Comment on above: Performed By: #### L [id number] ####[facility] ([facility])[address] [place] [address] CBCon 03-23-2024 Erythrocyte distribution width (RBC) [Ratio] 14.1 % Normal 11.5-15.0 [facility] Comment on above: Performed By: #### L [id number] ####[facility] ([facility])[address] [place] [address] ERYTHROCYTE MEAN CORPUSCULAR HEMOGLOBIN CONCENTRATION (G/DL) BY AUTOMATED 30.9 g/dL Low 32.0-35.0 [facility] Comment on above: Performed By: #### L [id number] ####[facility] ([facility])[address] [place] [address] Hematocrit (Bld) [Volume fraction] 31.4 % Low 36.0-48.0 [facility] Comment on above: Performed By: #### L [id number] ####[facility] ([facility])[address] [place] [address] Hemoglobin (Bld) [Mass/Vol] 9.7 g/dL Low 12.0-15.0 [facility] Comment on above: Performed By: #### L [id number] ####[facility] ([facility])[address] [place] [address] MCH (RBC) [Entitic mass] 29.4 pg Normal 27.0-33.0 [facility] Comment on above: Performed By: #### L [id number] ####[facility] ([facility])[address] [place] [address] MCV (RBC) [Entitic vol] 95.2 fL Normal 82.0-98.0 [facility] Comment on above: Performed By: #### L [id number] ####[facility] ([facility])[address] [place] [address] PLATELETS (10*3/UL) IN BLOOD AUTOMATED COUNT 266 10*3/uL Normal 150-400 [facility] Comment on above: Performed By: #### L [id number] ####[facility] ([facility])[address] [place] [address] RBC (Bld) [#/Vol] 3.30 10*6/uL Low 3.80-5.00 [facility] Comment on above: Performed By: #### L [id number] ####[facility] ([facility])[address] [place] [address] WBC (Bld) [#/Vol] 5.54 10*3/uL Normal 4.00-10.60 [facility] Comment on above: Performed By: #### L [id number] ####[facility] ([facility])[address] [place] [address] COMPREHENSIVE METABOLIC PANE [facility] 03-23-2024 Albumin [Mass/Vol] 3.0 g/dL Low 3.5-5.7 [facility] Comment on above: Performed By: #### L [id number] ####[facility] ([facility])[address] [place] [address] ALP [Catalytic activity/Vol] 38 U/L Normal 34-104 [facility] Comment on above: Performed By: #### L [id number] ####[facility] ([facility])[address] [place] [address] ALT [Catalytic activity/Vol] 11 U/L Normal 7-52 [facility] Comment on above: Performed By: #### L [id number] ####[facility] ([facility])[address] [place] [address] Anion gap [Moles/Vol] 13 mmol/L Normal 7-20 [facility] Comment on above: Performed By: #### L [id number] ####[facility] ([facility])[address] [place] [address] AST [Catalytic activity/Vol] 21 U/L Normal 13-39 [facility] Comment on above: Performed By: #### L [id number] ####[facility] ([facility])[address] [place] [address] Bilirubin [Mass/Vol] 0.3 mg/dL Normal 0.3-1.0 [facility] Comment on above: Performed By: #### L [id number] ####[facility] ([facility])[address] [facility] [place] [address] Calcium [Mass/Vol] 8.6 mg/dL Normal 8.6-10.3 [facility] Comment on above: Performed By: #### L [id number] ####[facility] ([facility])[address] [facility] [address] Chloride [Moles/Vol] 107 mmol/L Normal 98-107 [facility] Comment on above: Performed By: #### L [id number] ####[facility] ([facility])[address] [facility] [place] [address] CO2 [Moles/Vol] 23 mmol/L Normal 21-31 [facility] Comment on above: Performed By: #### L [id number] ####[facility] ([facility])[address] [facility] [address] Creatinine [Mass/Vol] 0.46 mg/dL Low 0.60-1.20 [facility] Comment on above: Performed By: #### L [id number] ####[facility] ([facility])[address] [facility] [address] GLOMERULAR FILTRATION RATE ML/MIN/1.73 SQ M.PREDICTED 106.1 mL/min/1.73m*2 Normal >60.0 [facility] Comment on above: Result Comment: The [facility]???s estimated glomerular filtration rate (eGFR) will no longer include consideration of race in its calculation. The National Kidney Foundation???s eGFR Task Force developed new recommendations for the estimation of the glomerular filtration rate in the [place] They recommend immediate implementation of the new equation refit without the race variable in all laboratories because the calculation does not include race. In addition to not including race in the calculation and reporting, it included diversity in its development, and has acceptable performance characteristics and potential consequences that do not disproportionately affect any one group of individuals. Performed By: #### L [id number] ####[facility] ([facility])[address] [place] [address] Glucose [Mass/Vol] 93 mg/dL Normal 70-100 [facility] Comment on above: Performed By: #### L [id number] ####[facility] ([facility])[address] [place] [address] Potassium [Moles/Vol] 3.8 mmol/L Normal 3.5-5.1 [facility] Comment on above: Performed By: #### L [id number] ####[facility] ([facility])[address] [place] [address] Protein [Mass/Vol] 6.2 g/dL Normal 6.0-8.3 [facility] Comment on above: Performed By: #### L [id number] ####[facility] ([facility])[address] [place] [address] Sodium [Moles/Vol] 139 mmol/L Normal 136-145 [facility] Comment on above: Performed By: #### L [id number] ####[facility] ([facility])[address] [place] [address] Urea nitrogen [Mass/Vol] 28 mg/dL High 7-25 [facility] Comment on above: Performed By: #### L [id number] ####[facility] ([facility])[address] [place] [address] UREA NITROGEN/CREATININE (MASS RATIO) IN SER/PLAS 60.9 Normal [facility] Comment on above: Performed By: #### L [id number] ####[facility] ([facility])[address] [place] [address] CONSULTon 03-23-2024 CONSULT Normal [facility] CT ABDOMEN PELVIS W AND WO I V CONTRASTon 03-23-2024 CT ABDOMEN PELVIS W AND WO IV CONTRAST Invalid Interpretation Code [facility] CT CHEST W IV CONTRASTon CT CHEST W IV CONTRAST Invalid Interpretation Code [facility] MAGNESIUMon 03-23-2024 Magnesium [Mass/Vol] 1.7 mg/dL Low 1.9-2.7 [facility] Comment on above: Performed By: #### L [id number] ####[facility] ([facility])[address] [place] [address] PHOSPHORUSon 03-23-2024 Magnesium [Mass/Vol] 3.6 mg/dL Normal 2.5-5.0 [facility] Comment on above: Performed By: #### L [id number] ####[facility] ([facility])[address] [place] [address] VENOUS BLOOD GAS WITH IONIZE D CALCIUMon 03-23-2024 Base excess Calc (BldV) [Moles/Vol] 4.5 mmol/L Normal [facility] Comment on above: Performed By: #### L [id number] ####[facility] [id number] [place] [address] [place] CALCIUM IONIZED (MMOL/L) IN BLOOD 1.18 mmol/L Normal 1.15-1.33 [facility] Comment on above: Performed By: #### L [id number] ####[facility] [id number] [place] [address] [place] CO2 (BldV) [Partial pressure] 39 mm[Hg] Low 40-50 [facility] Comment on above: Performed By: #### L [id number] ####[facility] [id number] [place] [address] [place] HCO3 (Bld) [Moles/Vol] 28.4 mmol/L Normal [facility] Comment on above: Performed By: #### L [id number] ####[facility] [id number] [place] [address] [place] Oxygen (BldV) [Partial pressure] 62 mm[Hg] High 35-45 [facility] Comment on above: Performed By: #### L [id number] ####[facility] [id number] [place] [address] [place] OXYGEN SATURATION (%) IN VENOUS BLOOD 92.7 % High 65.0-75.0 [facility] Comment on above: Performed By: #### L [id number] ####[facility] [id number] [place] [address] [place] PH OF VENOUS BLOOD 7.47 High 7.31-7.41 [facility] Comment on above: Performed By: #### L [id number] ####[facility] [id number] [place] [address] [place] 30on 03-22-2024 30 Normal [facility] 30 Normal [facility] BASIC METABOLIC PANELon Anion gap [Moles/Vol] 12 mmol/L Normal 7-20 [facility] Comment on above: Performed By: #### L [id number] ####[facility])[address] [place] [address] Calcium [Mass/Vol] 8.9 mg/dL Normal 8.6-10.3 [facility] Comment on above: Performed By: #### L [id number] ####[facility] ([facility])[address] [place] [address] Chloride [Moles/Vol] 105 mmol/L Normal 98-107 [facility] Comment on above: Performed By: #### L [id number] ####[facility] ([facility])[address] [place] [address] CO2 [Moles/Vol] 26 mmol/L Normal 21-31 [facility] Comment on above: Performed By: #### L [id number] ####[facility] ([facility])[address] [place] [address] Creatinine [Mass/Vol] 0.44 mg/dL Low 0.60-1.20 [facility] Comment on above: Performed By: #### L [id number] ####[facility] ([facility])[address] [place] [address] GLOMERULAR FILTRATION RATE ML/MIN/1.73 SQ M.PREDICTED 107.3 mL/min/1.73m*2 Normal >60.0 [facility] Comment on above: Result Comment: The [facility]???s estimated glomerular filtration rate (eGFR) will no longer include consideration of race in its calculation. The National Kidney Foundation???s eGFR Task Force developed new recommendations for the estimation of the glomerular filtration rate in the [place] They recommend immediate implementation of the new equation refit without the race variable in all laboratories because the calculation does not include race. In addition to not including race in the calculation and reporting, it included diversity in its development, and has acceptable performance characteristics and potential consequences that do not disproportionately affect any one group of individuals. Performed By: #### L [id number] ####[facility] ([facility])[address] [place] [address] Glucose [Mass/Vol] 92 mg/dL Normal 70-100 [facility] Comment on above: Performed By: #### L [id number] ####[facility] ([facility])[address] [place] [address] Potassium [Moles/Vol] 3.7 mmol/L Normal 3.5-5.1 [facility] Comment on above: Performed By: #### L [id number] ####[facility] ([facility])[address] [place] [address] Sodium [Moles/Vol] 139 mmol/L Normal 136-145 [facility] Comment on above: Performed By: #### L [id number] ####[facility] ([facility])[address] [place] [address] Urea nitrogen [Mass/Vol] 26 mg/dL High 7-25 [facility] Comment on above: Performed By: #### L [id number] ####[facility] ([facility])[address] [place] [address] UREA NITROGEN/CREATININE (MASS RATIO) IN SER/PLAS 59.1 Normal [facility] Comment on above: Performed By: #### L [id number] ####[facility] ([facility])[address] [place] [address] CBCon 03-22-2024 Erythrocyte distribution width (RBC) [Ratio] 13.9 % Normal 11.5-15.0 [facility] Comment on above: Performed By: #### L [id number] ####[facility] ([facility])[address] [place] [address] ERYTHROCYTE MEAN CORPUSCULAR HEMOGLOBIN CONCENTRATION (G/DL) BY AUTOMATED 31.4 g/dL Low 32.0-35.0 [facility] Comment on above: Performed By: #### L [id number] ####[facility] ([facility])[address] [place] [address] Hematocrit (Bld) [Volume fraction] 32.8 % Low 36.0-48.0 [facility] Comment on above: Performed By: #### L [id number] ####[facility] ([facility])[address] [place] [address] Hemoglobin (Bld) [Mass/Vol] 10.3 g/dL Low 12.0-15.0 [facility] Comment on above: Performed By: #### L [id number] ####[facility] ([facility])[address] [place] [address] MCH (RBC) [Entitic mass] 28.9 pg Normal 27.0-33.0 [facility] Comment on above: Performed By: #### L [id number] ####[facility] ([facility])[address] [place] [address] MCV (RBC) [Entitic vol] 91.9 fL Normal 82.0-98.0 [facility] Comment on above: Performed By: #### L [id number] ####[facility] ([facility])[address] [place] [address] PLATELETS (10*3/UL) IN BLOOD AUTOMATED COUNT 313 10*3/uL Normal 150-400 [facility] Comment on above: Performed By: #### L [id number] ####[facility] ([facility])[address] [place] [address] RBC (Bld) [#/Vol] 3.57 10*6/uL Low 3.80-5.00 [facility] Comment on above: Performed By: #### L [id number] ####[facility] ([facility])[address] [address] WBC (Bld) [#/Vol] 5.94 10*3/uL Normal 4.00-10.60 [facility] Comment on above: Performed By: #### L [id number] ####[facility] ([facility])[address] [place] [address] CONSULTon 03-22-2024 CONSULT Normal [facility] LACTIC ACID WITH 4 HOUR REFL EXon 03-22-2024 LACTATE (MMOL/L) IN SER/PLAS 1.3 mmol/L Normal 0.5-2.2 [facility] Comment on above: Result Comment: M-CH EMISTRY SPECIMEN MODERATELY HEMOLYZED RESULTS MAY NOT BE ACCURATE Performed By: #### L [id number] ####[facility] ([facility])[address] [place] [address] MAGNESIUMon 03-22-2024 Magnesium [Mass/Vol] 1.9 mg/dL Normal 1.9-2.7 [facility] Comment on above: Performed By: #### L [id number] ####[facility] ([facility])[address] [place] [address] MR CERVICAL SPINE W AND WO C ONTRASTon 03-22-2024 MR CERVICAL SPINE W AND WO CONTRAST Invalid Interpretation Code [facility] MR LUMBAR SPINE W AND WO CON TRASTon 03-22-2024 MR LUMBAR SPINE W AND WO CONTRAST Invalid Interpretation Code [facility] MR THORACIC SPINE W AND WO C ONTRASTon 03-22-2024 MR THORACIC SPINE W AND WO CONTRAST Invalid Interpretation Code [facility] PHOSPHORUSon 03-22-2024 Magnesium [Mass/Vol] 3.5 mg/dL Normal 2.5-5.0 [facility] Comment on above: Performed By: #### L [id number] ####[facility] ([facility])[address] [facility] [facility] [place] [address] 30on 03-21-2024 30 Normal [facility] 30 Normal [facility] BASIC METABOLIC PANELon 09-0 Anion gap [Moles/Vol] 13 mmol/L Normal 7-20 [facility] Comment on above: Performed By: #### L [id number] ####[facility] ([facility])[address] [place] [address] Calcium [Mass/Vol] 8.8 mg/dL Normal 8.6-10.3 [facility] Comment on above: Performed By: #### L [id number] ####[facility] ([facility])[address] [place] [address] Chloride [Moles/Vol] 104 mmol/L Normal 98-107 [facility] Comment on above: Performed By: #### L [id number] ####[facility] ([facility])[address] [place] [address] CO2 [Moles/Vol] 27 mmol/L Normal 21-31 [facility] Comment on above: Performed By: #### L [id number] ####[facility] ([facility])[address] [place] [address] Creatinine [Mass/Vol] 0.48 mg/dL Low 0.60-1.20 [facility] Comment on above: Performed By: #### L [id number] ####[facility] ([facility])[address] [place] [address] GLOMERULAR FILTRATION RATE ML/MIN/1.73 SQ M.PREDICTED 105.0 mL/min/1.73m*2 Normal >60.0 [facility] Comment on above: Result Comment: The [facility]???s estimated glomerular filtration rate (eGFR) will no longer include consideration of race in its calculation. The National Kidney Foundation???s eGFR Task Force developed new recommendations for the estimation of the glomerular filtration rate in the [place] They recommend immediate implementation of the new equation refit without the race variable in all laboratories because the calculation does not include race. In addition to not including race in the calculation and reporting, it included diversity in its development, and has acceptable performance characteristics and potential consequences that do not disproportionately affect any one group of individuals. Performed By: #### L [id number] ####[facility] ([facility])[address] [place] [address] Glucose [Mass/Vol] 108 mg/dL High 70-100 [facility] Comment on above: Performed By: #### L [id number] ####[facility] ([facility])[address] [place] [address] Potassium [Moles/Vol] 3.9 mmol/L Normal 3.5-5.1 [facility] Comment on above: Performed By: #### L [id number] ####[facility] ([facility])[address] [place] [address] Sodium [Moles/Vol] 140 mmol/L Normal 136-145 [facility] Comment on above: Performed By: #### L [id number] ####[facility] ([facility])[address] [place] [address] Urea nitrogen [Mass/Vol] 23 mg/dL Normal 7-25 [facility] Comment on above: Performed By: #### L [id number] ####[facility] ([facility])[address] [place] [address] UREA NITROGEN/CREATININE (MASS RATIO) IN SER/PLAS 47.9 Normal [facility] Comment on above: Performed By: #### L [id number] ####[facility] ([facility])[address] [place] [address] CBCon 03-21-2024 Erythrocyte distribution width (RBC) [Ratio] 13.7 % Normal 11.5-15.0 [facility] Comment on above: Performed By: #### L [id number] ####[facility] ([facility])[address] [place] [address] ERYTHROCYTE MEAN CORPUSCULAR HEMOGLOBIN CONCENTRATION (G/DL) BY AUTOMATED 32.4 g/dL Normal 32.0-35.0 [facility] Comment on above: Performed By: #### L [id number] ####[facility] ([facility])[address] [place] [address] Hematocrit (Bld) [Volume fraction] 32.4 % Low 36.0-48.0 [facility] Comment on above: Performed By: #### L [id number] ####[facility] ([facility])[address] [place] [address] Hemoglobin (Bld) [Mass/Vol] 10.5 g/dL Low 12.0-15.0 [facility] Comment on above: Performed By: #### L [id number] ####[facility] ([facility])[address] [place] [address] MCH (RBC) [Entitic mass] 29.2 pg Normal 27.0-33.0 [facility] Comment on above: Performed By: #### L [id number] ####[facility] ([facility])[address] [address] MCV (RBC) [Entitic vol] 90.3 fL Normal 82.0-98.0 [facility] Comment on above: Performed By: #### L [id number] ####[facility] ([facility])[address] [place] [address] PLATELETS (10*3/UL) IN BLOOD AUTOMATED COUNT 288 10*3/uL Normal 150-400 [facility] Comment on above: Performed By: #### L [id number] ####[facility] ([facility])[address] [place] [address] RBC (Bld) [#/Vol] 3.59 10*6/uL Low 3.80-5.00 [facility] Comment on above: Performed By: #### L [id number] ####[facility] ([facility])[address] [place] [address] WBC (Bld) [#/Vol] 7.45 10*3/uL Normal 4.00-10.60 [facility] Comment on above: Performed By: #### L [id number] ####[facility] ([facility])[address] [place] [address] CONSULTon 03-21-2024 CONSULT Normal [facility] MAGNESIUMon 03-21-2024 Magnesium [Mass/Vol] 1.9 mg/dL Normal 1.9-2.7 [facility] Comment on above: Performed By: #### L [id number] ####[facility] ([facility])[address] [place] [address] MR BRAIN W AND WO CONTRASTon 03-21-2024 MR BRAIN W AND WO CONTRAST Invalid Interpretation Code [facility] PHOSPHORUSon 03-21-2024 Magnesium [Mass/Vol] 3.1 mg/dL Normal 2.5-5.0 [facility] Comment on above: Performed By: #### L [id number] ####[facility] ([facility])[address] [place] [address] 30on 03-20-2024 30 Normal [facility] BASIC METABOLIC PANELon Anion gap [Moles/Vol] 15 mmol/L Normal 7-20 [facility] Comment on above: Performed By: #### L [id number] ####[facility] ([facility])[address] [place] [address] Calcium [Mass/Vol] 8.7 mg/dL Normal 8.6-10.3 [facility] Comment on above: Performed By: #### L [id number] ####[facility] ([facility])[address] [place] [address] Chloride [Moles/Vol] 102 mmol/L Normal 98-107 [facility] Comment on above: Performed By: #### L [id number] ####[facility] ([facility])[address] [place] [address] CO2 [Moles/Vol] 25 mmol/L Normal 21-31 [facility] Comment on above: Performed By: #### L [id number] ####[facility] ([facility])[address] [place] [address] Creatinine [Mass/Vol] 0.39 mg/dL Low 0.60-1.20 [facility] Comment on above: Performed By: #### L [id number] ####[facility] ([facility])[address] [place] [address] GLOMERULAR FILTRATION RATE ML/MIN/1.73 SQ M.PREDICTED 110.4 mL/min/1.73m*2 Normal >60.0 [facility] Comment on above: Result Comment: The [facility]???s estimated glomerular filtration rate (eGFR) will no longer include consideration of race in its calculation. The National Kidney Foundation???s eGFR Task Force developed new recommendations for the estimation of the glomerular filtration rate in the [place] They recommend immediate implementation of the new equation refit without the race variable in all laboratories because the calculation does not include race. In addition to not including race in the calculation and reporting, it included diversity in its development, and has acceptable performance characteristics and potential consequences that do not disproportionately affect any one group of individuals. Performed By: #### L [id number] ####[facility] ([facility])[address] [place] [address] Glucose [Mass/Vol] 85 mg/dL Normal 70-100 [facility] Comment on above: Performed By: #### L [id number] ####[facility] ([facility])[address] [place] [address] Potassium [Moles/Vol] 3.5 mmol/L Normal 3.5-5.1 [facility] Comment on above: Performed By: #### L [id number] ####[facility] ([facility])[address] [place] [address] Sodium [Moles/Vol] 138 mmol/L Normal 136-145 [facility] Comment on above: Performed By: #### L [id number] ####[facility] ([facility])[address] [facility] [place] [address] Urea nitrogen [Mass/Vol] 8 mg/dL Normal 7-25 [facility] Comment on above: Performed By: #### L [id number] ####[facility] ([facility])[address] [facility] [facility] [place] [address] UREA NITROGEN/CREATININE (MASS RATIO) IN SER/PLAS 20.5 Normal [facility] Comment on above: Performed By: #### L [id number] ####[facility] ([facility])[address] [place] [address] CBCon 03-20-2024 Erythrocyte distribution width (RBC) [Ratio] 13.9 % Normal 11.5-15.0 [facility] Comment on above: Performed By: #### L [id number] ####[facility] ([facility])[address] [place] [address] ERYTHROCYTE MEAN CORPUSCULAR HEMOGLOBIN CONCENTRATION (G/DL) BY AUTOMATED 32.1 g/dL Normal 32.0-35.0 [facility] Comment on above: Performed By: #### L [id number] ####[facility] ([facility])[address] [place] [address] Hematocrit (Bld) [Volume fraction] 32.1 % Low 36.0-48.0 [facility] Comment on above: Performed By: #### L [id number] ####[facility] ([facility])[address] [place] [address] Hemoglobin (Bld) [Mass/Vol] 10.3 g/dL Low 12.0-15.0 [facility] Comment on above: Performed By: #### L [id number] ####[facility] ([facility])[address] [place] [address] MCH (RBC) [Entitic mass] 29.5 pg Normal 27.0-33.0 [facility] Comment on above: Performed By: #### L [id number] ####[facility] ([facility])[address] [place] [address] MCV (RBC) [Entitic vol] 92.0 fL Normal 82.0-98.0 [facility] Comment on above: Performed By: #### L [id number] ####[facility] ([facility])[address] [place] [address] PLATELETS (10*3/UL) IN BLOOD AUTOMATED COUNT 243 10*3/uL Normal 150-400 [facility] Comment on above: Performed By: #### L [id number] ####[facility] ([facility])[address] [place] [address] RBC (Bld) [#/Vol] 3.49 10*6/uL Low 3.80-5.00 [facility] Comment on above: Performed By: #### L [id number] ####[facility] ([facility])[address] [place] [address] WBC (Bld) [#/Vol] 6.86 10*3/uL Normal 4.00-10.60 [facility] Comment on above: Performed By: #### L [id number] ####[facility] ([facility])[address] [place] [address] MAGNESIUMon 03-20-2024 Magnesium [Mass/Vol] 1.8 mg/dL Low 1.9-2.7 [facility] Comment on above: Performed By: #### L [id number] ####[facility] ([facility])[address] [place] [address] PHOSPHORUSon 03-20-2024 Magnesium [Mass/Vol] 2.6 mg/dL Normal 2.5-5.0 [facility] Comment on above: Performed By: #### L [id number] ####[facility] ([facility])[address] [place] [address] BASIC METABOLIC PANELon Anion gap [Moles/Vol] 10 mmol/L Normal 7-20 [facility] Comment on above: Performed By: #### L [id number] ####[facility] ([facility])[address] [place] [address] Calcium [Mass/Vol] 8.1 mg/dL Low 8.6-10.3 [facility] Comment on above: Performed By: #### L [id number] ####[facility] ([facility])[address] [place] [address] Chloride [Moles/Vol] 107 mmol/L Normal 98-107 [facility] Comment on above: Performed By: #### L [id number] ####[facility] ([facility])[address] [place] [address] CO2 [Moles/Vol] 27 mmol/L Normal 21-31 [facility] Comment on above: Performed By: #### L [id number] ####[facility] ([facility])[address] [place] [address] Creatinine [Mass/Vol] 0.41 mg/dL Low 0.60-1.20 [facility] Comment on above: Performed By: #### L [id number] ####[facility] ([facility])[address] [place] [address] GLOMERULAR FILTRATION RATE ML/MIN/1.73 SQ M.PREDICTED 109.1 mL/min/1.73m*2 Normal >60.0 [facility] Comment on above: Result Comment: The [facility]???s estimated glomerular filtration rate (eGFR) will no longer include consideration of race in its calculation. The National Kidney Foundation???s eGFR Task Force developed new recommendations for the estimation of the glomerular filtration rate in the [place] They recommend immediate implementation of the new equation refit without the race variable in all laboratories because the calculation does not include race. In addition to not including race in the calculation and reporting, it included diversity in its development, and has acceptable performance characteristics and potential consequences that do not disproportionately affect any one group of individuals. Performed By: #### L [id number] ####[facility] ([facility])[address] [place] [address] Glucose [Mass/Vol] 107 mg/dL High 70-100 [facility] Comment on above: Performed By: #### L [id number] ####[facility] ([facility])[address] [place] [address] Potassium [Moles/Vol] 3.6 mmol/L Normal 3.5-5.1 [facility] Comment on above: Performed By: #### L [id number] ####[facility] ([facility])[address] [place] [address] Sodium [Moles/Vol] 140 mmol/L Normal 136-145 [facility] Comment on above: Performed By: #### L [id number] ####[facility] ([facility])[address] [place] [address] Urea nitrogen [Mass/Vol] 6 mg/dL Low 7-25 [facility] Comment on above: Performed By: #### L [id number] ####[facility] ([facility])[address] [place] [address] UREA NITROGEN/CREATININE (MASS RATIO) IN SER/PLAS 14.6 Normal [facility] Comment on above: Performed By: #### L [id number] ####[facility] ([facility])[address] [place] [address] CBCon 03-19-2024 Erythrocyte distribution width (RBC) [Ratio] 14.6 % Normal 11.5-15.0 [facility] Comment on above: Performed By: #### L [id number] ####[facility] ([facility])[address] [place] [address] ERYTHROCYTE MEAN CORPUSCULAR HEMOGLOBIN CONCENTRATION (G/DL) BY AUTOMATED 31.6 g/dL Low 32.0-35.0 [facility] Comment on above: Performed By: #### L [id number] ####[facility] ([facility])[address] [place] [address] Hematocrit (Bld) [Volume fraction] 28.2 % Low 36.0-48.0 [facility] Comment on above: Performed By: #### L [id number] ####[facility] ([facility])[address] [place] [address] Hemoglobin (Bld) [Mass/Vol] 8.9 g/dL Low 12.0-15.0 [facility] Comment on above: Performed By: #### L [id number] ####[facility] ([facility])[address] [place] [address] MCH (RBC) [Entitic mass] 29.3 pg Normal 27.0-33.0 [facility] Comment on above: Performed By: #### L [id number] ####[facility] ([facility])[address] [address] MCV (RBC) [Entitic vol] 92.8 fL Normal 82.0-98.0 [facility] Comment on above: Performed By: #### L [id number] ####[facility] ([facility])[address] [place] [address] PLATELETS (10*3/UL) IN BLOOD AUTOMATED COUNT 212 10*3/uL Normal 150-400 [facility] Comment on above: Performed By: #### L [id number] ####[facility] ([facility])[address] [place] [address] RBC (Bld) [#/Vol] 3.04 10*6/uL Low 3.80-5.00 [facility] Comment on above: Performed By: #### L [id number] ####[facility] ([facility])[address] [place] [address] WBC (Bld) [#/Vol] 6.98 10*3/uL Normal 4.00-10.60 [facility] Comment on above: Performed By: #### L [id number] ####[facility] ([facility])[address] [place] [address] MAGNESIUMon 03-19-2024 Magnesium [Mass/Vol] 1.8 mg/dL Low 1.9-2.7 [facility] Comment on above: Performed By: #### L [id number] ####[facility] ([facility])[address] [place] [address] PHOSPHORUSon 03-19-2024 Magnesium [Mass/Vol] 2.6 mg/dL Normal 2.5-5.0 [facility] Comment on above: Performed By: #### L [id number] ####[facility] ([facility])[address] [place] [address] [id number] 2023 ALPHA-1 ANTITRYPSIN 294 mg/dL High 90-200 [facility] Comment on above: Result Comment: To c onvert to umol/L, multiply mg/dL by 0.185Performed By: [facility] [place], [place] [address]Bpllfwzbce Director: Tip Hathaway MD, PhDCLIA Number: [id number] Performed By: #### L [id number] ####[facility] ([facility])[address] [place] [address] BASIC METABOLIC PANELon 09-0 -2023 Anion gap [Moles/Vol] 14 mmol/L Normal 7-20 [facility] Comment on above: Performed By: #### L [id number] ####[facility] ([facility])[address] [place] [address] Calcium [Mass/Vol] 7.9 mg/dL Low 8.6-10.3 [facility] Comment on above: Performed By: #### L [id number] ####[facility] ([facility])[address] [facility] [place] [place] [address] Chloride [Moles/Vol] 108 mmol/L High 98-107 [facility] Comment on above: Performed By: #### L [id number] ####[facility] ([facility])[address] [place] [address] CO2 [Moles/Vol] 23 mmol/L Normal 21-31 [facility] Comment on above: Performed By: #### L [id number] ####[facility] ([facility])[address] [facility] [place] [address] Creatinine [Mass/Vol] 0.47 mg/dL Low 0.60-1.20 [facility] Comment on above: Performed By: #### L [id number] ####[facility] ([facility])[address] [facility] [address] GLOMERULAR FILTRATION RATE ML/MIN/1.73 SQ M.PREDICTED 105.6 mL/min/1.73m*2 Normal >60.0 [facility] Comment on above: Result Comment: The [facility]???s estimated glomerular filtration rate (eGFR) will no longer include consideration of race in its calculation. The National Kidney Foundation???s eGFR Task Force developed new recommendations for the estimation of the glomerular filtration rate in the [place] They recommend immediate implementation of the new equation refit without the race variable in all laboratories because the calculation does not include race. In addition to not including race in the calculation and reporting, it included diversity in its development, and has acceptable performance characteristics and potential consequences that do not disproportionately affect any one group of individuals. Performed By: #### L [id number] ####[facility] ([facility])[address] [place] [address] Glucose [Mass/Vol] 103 mg/dL High 70-100 [facility] Comment on above: Performed By: #### L [id number] ####[facility] ([facility])[address] [place] [address] Potassium [Moles/Vol] 3.6 mmol/L Normal 3.5-5.1 [facility] Comment on above: Performed By: #### L [id number] ####[facility] ([facility])[address] [place] [address] Sodium [Moles/Vol] 141 mmol/L Normal 136-145 [facility] Comment on above: Performed By: #### L [id number] ####[facility] ([facility])[address] [place] [address] Urea nitrogen [Mass/Vol] 6 mg/dL Low 7-25 [facility] Comment on above: Performed By: #### L [id number] ####[facility] ([facility])[address] [place] [address] UREA NITROGEN/CREATININE (MASS RATIO) IN SER/PLAS 12.8 Normal [facility] Comment on above: Performed By: #### L [id number] ####[facility] ([facility])[address] [place] [address] Anion gap [Moles/Vol] 11 mmol/L Normal 7-20 [facility] Comment on above: Performed By: #### L [id number] ####[facility] ([facility])[address] [place] [address] Calcium [Mass/Vol] 8.1 mg/dL Low 8.6-10.3 [facility] Comment on above: Performed By: #### L [id number] ####[facility] ([facility])[address] [place] [address] Chloride [Moles/Vol] 108 mmol/L High 98-107 [facility] Comment on above: Performed By: #### L [id number] ####[facility] ([facility])[address] [place] [address] CO2 [Moles/Vol] 23 mmol/L Normal 21-31 [facility] Comment on above: Performed By: #### L [id number] ####[facility] ([facility])[address] [place] [address] Creatinine [Mass/Vol] 0.44 mg/dL Low 0.60-1.20 [facility] Comment on above: Performed By: #### L [id number] ####[facility] ([facility])[address] [place] [address] GLOMERULAR FILTRATION RATE ML/MIN/1.73 SQ M.PREDICTED 107.3 mL/min/1.73m*2 Normal >60.0 [facility] Comment on above: Result Comment: The [facility]???s estimated glomerular filtration rate (eGFR) will no longer include consideration of race in its calculation. The National Kidney Foundation???s eGFR Task Force developed new recommendations for the estimation of the glomerular filtration rate in the [place] They recommend immediate implementation of the new equation refit without the race variable in all laboratories because the calculation does not include race. In addition to not including race in the calculation and reporting, it included diversity in its development, and has acceptable performance characteristics and potential consequences that do not disproportionately affect any one group of individuals. Performed By: #### L [id number] ####[facility] ([facility])[address] [place] [address] Glucose [Mass/Vol] 92 mg/dL Normal 70-100 [facility] Comment on above: Performed By: #### L [id number] ####[facility] ([facility])[address] [place] [address] Potassium [Moles/Vol] 3.6 mmol/L Normal 3.5-5.1 [facility] Comment on above: Performed By: #### L [id number] ####[facility] ([facility])[address] [place] [address] Sodium [Moles/Vol] 138 mmol/L Normal 136-145 [facility] Comment on above: Performed By: #### L [id number] ####[facility] ([facility])[address] [place] [address] Urea nitrogen [Mass/Vol] 8 mg/dL Normal 7-25 [facility] Comment on above: Performed By: #### L [id number] ####[facility] ([facility])[address] [place] [address] UREA NITROGEN/CREATININE (MASS RATIO) IN SER/PLAS 18.2 Normal [facility] Comment on above: Performed By: #### L [id number] ####[facility] ([facility])[address] [place] [address] CBCon 03-18-2024 Erythrocyte distribution width (RBC) [Ratio] 14.6 % Normal 11.5-15.0 [facility] Comment on above: Performed By: #### L [id number] ####[facility] ([facility])[address] [place] [address] ERYTHROCYTE MEAN CORPUSCULAR HEMOGLOBIN CONCENTRATION (G/DL) BY AUTOMATED 31.7 g/dL Low 32.0-35.0 [facility] Comment on above: Performed By: #### L [id number] ####[facility] ([facility])[address] [place] [address] Hematocrit (Bld) [Volume fraction] 27.1 % Low 36.0-48.0 [facility] Comment on above: Performed By: #### L [id number] ####[facility] ([facility])[address] [place] [address] Hemoglobin (Bld) [Mass/Vol] 8.6 g/dL Low 12.0-15.0 [facility] Comment on above: Performed By: #### L [id number] ####[facility] ([facility])[address] [address] MCH (RBC) [Entitic mass] 29.3 pg Normal 27.0-33.0 [facility] Comment on above: Performed By: #### L [id number] ####[facility] ([facility])[address] [place] [address] MCV (RBC) [Entitic vol] 92.2 fL Normal 82.0-98.0 [facility] Comment on above: Performed By: #### L [id number] ####[facility] ([facility])[address] [place] [address] PLATELETS (10*3/UL) IN BLOOD AUTOMATED COUNT 167 10*3/uL Normal 150-400 [facility] Comment on above: Performed By: #### L [id number] ####[facility] ([facility])[address] [place] [address] RBC (Bld) [#/Vol] 2.94 10*6/uL Low 3.80-5.00 [facility] Comment on above: Performed By: #### L [id number] ####[facility] ([facility])[address] [place] [address] WBC (Bld) [#/Vol] 8.17 10*3/uL Normal 4.00-10.60 [facility] Comment on above: Performed By: #### L [id number] ####[facility] ([facility])[address] [place] [address] MAGNESIUMon 03-18-2024 Magnesium [Mass/Vol] 2.0 mg/dL Normal 1.9-2.7 [facility] Comment on above: Performed By: #### L [id number] ####[facility] ([facility])[address] [place] [address] Magnesium [Mass/Vol] 1.7 mg/dL Low 1.9-2.7 [facility] Comment on above: Performed By: #### L [id number] ####[facility] ([facility])[address] [place] [address] PHOSPHORUSon 03-18-2024 Magnesium [Mass/Vol] 3.4 mg/dL Normal 2.5-5.0 [facility] Comment on above: Performed By: #### L [id number] ####[facility] ([facility])[address] [facility] [place] [address] Magnesium [Mass/Vol] 2.4 mg/dL Low 2.5-5.0 [facility] Comment on above: Performed By: #### L [id number] ####[facility] ([facility])[address] [address] TRIGLYCERIDESon 03-18-2024 FASTING? Unknown [facility] Comment on above: Order Comment: Monit or triglycerides while patient is on propofol. Consult Nutrition if greater than 500 mg/dL. Performed By: #### L [id number] ####[facility] ([facility])[address]AR[address] [facility] [place] [address] Magnesium [Mass/Vol] 116 mg/dL Normal 40-149 [facility] Comment on above: Order Comment: Monit or triglycerides while patient is on propofol. Consult Nutrition if greater than 500 mg/dL. Result Comment: TRIG LYCERIDE REFERENCE RANGE:20 YEARS AND OLDER CARDIOVASCULAR RISKLESS THAN 150 mg/dL LOW [id number] TO 199 mg/dL BORDERLINE [id number] mg/dL AND GREATER HIGH RISK Performed By: #### L [id number] ####[facility] ([facility])[address]AR[address] [facility] [place] [address] 30on 03-17-2024 30 Normal [facility] AFB CULTUREon 03-17-2024 AFB CULTURE No growth at 6 days Normal [facility] Comment on above: Performed By: #### L [id number] ####[facility] ([facility])[address] [place] [address] AFB STAIN No acid fast bacilli seen Normal [facility] Comment on above: Performed By: #### L [id number] ####[facility] ([facility])[address] [place] [address] BASIC METABOLIC PANELon 09-0 Anion gap [Moles/Vol] 10 mmol/L Normal 7-20 [facility] Comment on above: Performed By: #### L [id number] ####[facility] ([facility])[address] [place] [address] Calcium [Mass/Vol] 8.0 mg/dL Low 8.6-10.3 [facility] Comment on above: Performed By: #### L [id number] ####[facility] (BEAKER)[address] [place] [address] Chloride [Moles/Vol] 107 mmol/L Normal 98-107 [facility] Comment on above: Performed By: #### L [id number] ####[facility] (BEAKER)[address] [place] [address] CO2 [Moles/Vol] 23 mmol/L Normal 21-31 [facility] Comment on above: Performed By: #### L [id number] ####[facility] (BEAKER)[address] [place] [address] Creatinine [Mass/Vol] 0.48 mg/dL Low 0.60-1.20 [facility] Comment on above: Performed By: #### L [id number] ####[facility] (BEAKER)[address] [place] [address] GLOMERULAR FILTRATION RATE ML/MIN/1.73 SQ M.PREDICTED 105.0 mL/min/1.73m*2 Normal >60.0 [facility] Comment on above: Result Comment: The [facility]???s estimated glomerular filtration rate (eGFR) will no longer include consideration of race in its calculation. The National Kidney Foundation???s eGFR Task Force developed new recommendations for the estimation of the glomerular filtration rate in the [place] They recommend immediate implementation of the new equation refit without the race variable in all laboratories because the calculation does not include race. In addition to not including race in the calculation and reporting, it included diversity in its development, and has acceptable performance characteristics and potential consequences that do not disproportionately affect any one group of individuals. Performed By: #### L [id number] ####[facility] (BEAKER)[address] [place] [address] Glucose [Mass/Vol] 101 mg/dL High 70-100 [facility] Comment on above: Performed By: #### L [id number] ####[facility] ([facility])[address] [place] [address] Potassium [Moles/Vol] 3.4 mmol/L Low 3.5-5.1 [facility] Comment on above: Performed By: #### L [id number] ####[facility] ([facility])[address] [place] [address] Sodium [Moles/Vol] 137 mmol/L Normal 136-145 [facility] Comment on above: Performed By: #### L [id number] ####[facility] ([facility])[address] [place] [address] Urea nitrogen [Mass/Vol] 8 mg/dL Normal 7-25 [facility] Comment on above: Performed By: #### L [id number] ####[facility] (BEAKER)[address] [place] [address] UREA NITROGEN/CREATININE (MASS RATIO) IN SER/PLAS 16.7 Normal [facility] Comment on above: Performed By: #### L [id number] ####[facility] (BEAKER)[address] [place] [address] CBCon 03-17-2024 Erythrocyte distribution width (RBC) [Ratio] 14.7 % Normal 11.5-15.0 [facility] Comment on above: Performed By: #### L [id number] ####[facility] (BEAKER)[address] [place] [address] ERYTHROCYTE MEAN CORPUSCULAR HEMOGLOBIN CONCENTRATION (G/DL) BY AUTOMATED 32.0 g/dL Normal 32.0-35.0 [facility] Comment on above: Performed By: #### L [id number] ####[facility] ([facility])[address] [place] [address] Hematocrit (Bld) [Volume fraction] 29.7 % Low 36.0-48.0 [facility] Comment on above: Performed By: #### L [id number] ####[facility] ([facility])[address] [place] [address] Hemoglobin (Bld) [Mass/Vol] 9.5 g/dL Low 12.0-15.0 [facility] Comment on above: Performed By: #### L [id number] ####[facility] ([facility])[address], [place] [address] MCH (RBC) [Entitic mass] 29.9 pg Normal 27.0-33.0 [facility] Comment on above: Performed By: #### L [id number] ####[facility] ([facility])[address] [place] [address] MCV (RBC) [Entitic vol] 93.4 fL Normal 82.0-98.0 [facility] Comment on above: Performed By: #### L [id number] ####[facility] ([facility])[address] [place] [address] PLATELETS (10*3/UL) IN BLOOD AUTOMATED COUNT 186 10*3/uL Normal 150-400 [facility] Comment on above: Performed By: #### L [id number] ####[facility] ([facility])[address] [place] [address] RBC (Bld) [#/Vol] 3.18 10*6/uL Low 3.80-5.00 [facility]: Performed By: #### L [id number] ####[facility] ([facility])[address] [place] [address] WBC (Bld) [#/Vol] 8.27 10*3/uL Normal 4.00-10.60 [facility] Comment on above: Performed By: #### L [id number] ####[facility] (BEAKER)[address] [place] [address] Erythrocyte distribution width (RBC) [Ratio] 14.6 % Normal 11.5-15.0 [facility] Comment on above: Performed By: #### L [id number] ####[facility] ([facility])[address], [place] [address] ERYTHROCYTE MEAN CORPUSCULAR HEMOGLOBIN CONCENTRATION (G/DL) BY AUTOMATED 31.4 g/dL Low 32.0-35.0 [facility] Comment on above: Performed By: #### L [id number] ####[facility] ([facility])[address] [place] [address] Hematocrit (Bld) [Volume fraction] 30.3 % Low 36.0-48.0 [facility] Comment on above: Performed By: #### L [id number] ####[facility] ([facility])[address] [place] [address] Hemoglobin (Bld) [Mass/Vol] 9.5 g/dL Low 12.0-15.0 [facility] Comment on above: Performed By: #### L [id number] ####[facility] ([facility])[address] [place] [address] MCH (RBC) [Entitic mass] 29.3 pg Normal 27.0-33.0 [facility] Comment on above: Performed By: #### L [id number] ####[facility] ([facility])[address] [place] [address] MCV (RBC) [Entitic vol] 93.5 fL Normal 82.0-98.0 [facility] Comment on above: Performed By: #### L [id number] ####[facility] (BEAKER)[address] [place] [address] PLATELETS (10*3/UL) IN BLOOD AUTOMATED COUNT 185 10*3/uL Normal 150-400 [facility] Comment on above: Performed By: #### L [id number] ####[facility] (BEAKER)[address] [place] [address] RBC (Bld) [#/Vol] 3.24 10*6/uL Low 3.80-5.00 [facility] Comment on above: Performed By: #### L [id number] ####[facility] ([facility])[address] [address] WBC (Bld) [#/Vol] 9.38 10*3/uL Normal 4.00-10.60 [facility] Comment on above: Performed By: #### L [id number] ####[facility] ([facility])[address] [address] FUNGAL CULTUREon 03-17-2024 FUNGAL SMEAR No yeast or fungal e lements seen Normal [facility] Comment on above: Performed By: #### L [id number] ####[facility] ([facility])[address] [place] [address] HEMOGLOBIN AND HEMATOCRIT, B LOODon 03-17-2024 Hematocrit (Bld) [Volume fraction] 27.7 % Low 36.0-48.0 [facility] Comment on above: Performed By: #### L [id number] ####[facility] (BEAKER)[address] [place] [address] Hemoglobin (Bld) [Mass/Vol] 9.0 g/dL Low 12.0-15.0 [facility] Comment on above: Performed By: #### L [id number] ####[facility] (BEAKER)[address] [place] [address] MAGNESIUMon 03-17-2024 Magnesium [Mass/Vol] 1.9 mg/dL Normal 1.9-2.7 [facility] Comment on above: Performed By: #### L [id number] ####[facility] (BEAKER)[address] [place] [address] PHOSPHORUSon 03-17-2024 Magnesium [Mass/Vol] 2.2 mg/dL Low 2.5-5.0 [facility] Comment on above: Performed By: #### L [id number] ####[facility] ([facility])[address] [facility] [place] [address] SPUTUM CULTUREon 03-17-2024 GRAM STAIN RESULT Normal [facility] Comment on above: Order Comment: Light Growth Colonies Consistent with Upper Respiratory Li Result Comment: <10 Epithelial cells per low power field>25 Polys Per Low Power FieldRare Gram positive cocci in clustersRare Gram negative bacilli Performed By: #### L [id number] ####[facility] ([facility])[address] [address] TROPONIN Ion 03-17-2024 Troponin I.cardiac [Mass/Vol] 0.08 ng/mL High 0.00-0.04 [facility] Comment on above: Performed By: #### L [id number] ####[facility] ([facility])[address] [place] [address] Troponin I.cardiac [Mass/Vol] 0.06 ng/mL High 0.00-0.04 [facility] Comment on above: Performed By: #### L [id number] ####[facility] ([facility])[address] [place] [address] VANCOMYCIN, TROUGHon 024 VANCOMYCIN (UG/ML) IN SER/PLAS - TROUGH 4.5 ug/mL Low 5.0-20.0 [facility] Comment on above: Performed By: #### L [id number] ####[facility] ([facility])[address] [place] [address] BASIC METABOLIC PANELon 08-3 Anion gap [Moles/Vol] 12 mmol/L Normal 7-20 [facility] Comment on above: Performed By: #### L [id number] ####[facility] ([facility])[address] [place] [address] Calcium [Mass/Vol] 7.9 mg/dL Low 8.6-10.3 [facility] Comment on above: Performed By: #### L [id number] ####[facility] ([facility])[address] [place] [address] Chloride [Moles/Vol] 105 mmol/L Normal 98-107 [facility] Comment on above: Performed By: #### L [id number] ####[facility] ([facility])[address] [place] [address] CO2 [Moles/Vol] 22 mmol/L Normal 21-31 [facility] Comment on above: Performed By: #### L [id number] ####[facility] ([facility])[address] [place] [address] Creatinine [Mass/Vol] 0.65 mg/dL Normal 0.60-1.20 [facility] Comment on above: Performed By: #### L [id number] ####[facility] ([facility])[address] [place] [address] GLOMERULAR FILTRATION RATE ML/MIN/1.73 SQ M.PREDICTED 97.6 mL/min/1.73m*2 Normal >60.0 [facility] Comment on above: Result Comment: The [facility]???s estimated glomerular filtration rate (eGFR) will no longer include consideration of race in its calculation. The National Kidney Foundation???s eGFR Task Force developed new recommendations for the estimation of the glomerular filtration rate in the [place] They recommend immediate implementation of the new equation refit without the race variable in all laboratories because the calculation does not include race. In addition to not including race in the calculation and reporting, it included diversity in its development, and has acceptable performance characteristics and potential consequences that do not disproportionately affect any one group of individuals. Performed By: #### L [id number] ####[facility] ([facility])[address] [place] [address] Glucose [Mass/Vol] 95 mg/dL Normal 70-100 [facility] Comment on above: Performed By: #### L [id number] ####[facility] ([facility])[address] [place] [address] Potassium [Moles/Vol] 3.3 mmol/L Low 3.5-5.1 [facility] Comment on above: Performed By: #### L [id number] ####[facility] (BEAKER)[address] [place] [address] Sodium [Moles/Vol] 136 mmol/L Normal 136-145 [facility] Comment on above: Performed By: #### L [id number] ####[facility] (BEAKER)[address] [address] Urea nitrogen [Mass/Vol] 9 mg/dL Normal 7-25 [facility] Comment on above: Performed By: #### L [id number] ####[facility] (BEAKER)[address] [place] [address] UREA NITROGEN/CREATININE (MASS RATIO) IN SER/PLAS 13.8 Normal [facility] Comment on above: Performed By: #### L [id number] ####[facility] (BEAKER)[address] [place] [address] CBCon 03-16-2024 Erythrocyte distribution width (RBC) [Ratio] 14.7 % Normal 11.5-15.0 [facility] Comment on above: Performed By: #### L [id number] ####[facility] (BEAKER)[address] [address] ERYTHROCYTE MEAN CORPUSCULAR HEMOGLOBIN CONCENTRATION (G/DL) BY AUTOMATED 31.8 g/dL Low 32.0-35.0 [facility] Comment on above: Performed By: #### L [id number] ####[facility] (BEAKER)[address], [place] [address] Hematocrit (Bld) [Volume fraction] 30.8 % Low 36.0-48.0 [facility] Comment on above: Performed By: #### L [id number] ####[facility] (BEAKER)[address], [place] [address] Hemoglobin (Bld) [Mass/Vol] 9.8 g/dL Low 12.0-15.0 [facility] Comment on above: Performed By: #### L [id number] ####[facility] (BEAKER)[address] [place] [address] MCH (RBC) [Entitic mass] 29.4 pg Normal 27.0-33.0 [facility] Comment on above: Performed By: #### L [id number] ####[facility] ([facility])[address] [address] MCV (RBC) [Entitic vol] 92.5 fL Normal 82.0-98.0 [facility] Comment on above: Performed By: #### L [id number] ####[facility] ([facility])[address] [place] [address] PLATELETS (10*3/UL) IN BLOOD AUTOMATED COUNT 179 10*3/uL Normal 150-400 [facility] Comment on above: Performed By: #### L [id number] ####[facility] ([facility])[address] [place] [address] RBC (Bld) [#/Vol] 3.33 10*6/uL Low 3.80-5.00 [facility] Comment on above: Performed By: #### L [id number] ####[facility] ([facility])[address] [place] [address] WBC (Bld) [#/Vol] 9.45 10*3/uL Normal 4.00-10.60 [facility] Comment on above: Performed By: #### L [id number] ####[facility] ([facility])[address] [place] [address] Erythrocyte distribution width (RBC) [Ratio] 14.7 % Normal 11.5-15.0 [facility] Comment on above: Performed By: #### L [id number] ####[facility] ([facility])[address] [place] [address] ERYTHROCYTE MEAN CORPUSCULAR HEMOGLOBIN CONCENTRATION (G/DL) BY AUTOMATED 32.0 g/dL Normal 32.0-35.0 [facility] Comment on above: Performed By: #### L [id number] ####[facility] ([facility])[address] [place] [address] Hematocrit (Bld) [Volume fraction] 30.6 % Low 36.0-48.0 [facility] Comment on above: Performed By: #### L [id number] ####[facility] (BEAKER)[address] [address] Hemoglobin (Bld) [Mass/Vol] 9.8 g/dL Low 12.0-15.0 [facility] Comment on above: Performed By: #### L [id number] ####[facility] ([facility])[address] [address] MCH (RBC) [Entitic mass] 30.0 pg Normal 27.0-33.0 [facility] Comment on above: Performed By: #### L [id number] ####[facility] ([facility])[address] [address] MCV (RBC) [Entitic vol] 93.6 fL Normal 82.0-98.0 [facility] Comment on above: Performed By: #### L [id number] ####[facility] ([facility])[address] [place] [address] PLATELETS (10*3/UL) IN BLOOD AUTOMATED COUNT 177 10*3/uL Normal 150-400 [facility] Comment on above: Performed By: #### L [id number] ####[facility] (BEAKER)[address] [place] [address] RBC (Bld) [#/Vol] 3.27 10*6/uL Low 3.80-5.00 [facility] Comment on above: Performed By: #### L [id number] ####[facility] (BEAKER)[address] [place] [address] WBC (Bld) [#/Vol] 10.10 10*3/uL Normal 4.00-10.60 [facility] Comment on above: Performed By: #### L [id number] ####[facility] (BEAKER)[address] [place] [address] Erythrocyte distribution width (RBC) [Ratio] 14.9 % Normal 11.5-15.0 [facility] Comment on above: Performed By: #### L [id number] ####[facility] ([facility])[address] [place] [address] ERYTHROCYTE MEAN CORPUSCULAR HEMOGLOBIN CONCENTRATION (G/DL) BY AUTOMATED 31.0 g/dL Low 32.0-35.0 [facility] Comment on above: Performed By: #### L [id number] ####[facility] ([facility])[address] [place] [address] Hematocrit (Bld) [Volume fraction] 37.4 % Normal 36.0-48.0 [facility] Comment on above: Performed By: #### L [id number] ####[facility] ([facility])[address] [place] [address] Hemoglobin (Bld) [Mass/Vol] 11.6 g/dL Low 12.0-15.0 [facility] Comment on above: Performed By: #### L [id number] ####[facility] ([facility])[address] [place] [address] MCH (RBC) [Entitic mass] 30.1 pg Normal 27.0-33.0 [facility] Comment on above: Performed By: #### L [id number] ####[facility] ([facility])[address] [place] [address] MCV (RBC) [Entitic vol] 96.9 fL Normal 82.0-98.0 [facility] Comment on above: Performed By: #### L [id number] ####[facility] ([facility])[address] [place] [address] PLATELETS (10*3/UL) IN BLOOD AUTOMATED COUNT 179 10*3/uL Normal 150-400 [facility] Comment on above: Performed By: #### L [id number] ####[facility] (BEAKER)[address] [place] [address] RBC (Bld) [#/Vol] 3.86 10*6/uL Normal 3.80-5.00 [facility] Comment on above: Performed By: #### L [id number] ####[facility] (BEAKER)[address] [place] [address] WBC (Bld) [#/Vol] 12.28 10*3/uL High 4.00-10.60 [facility] Comment on above: Performed By: #### L [id number] ####[facility] (BEAKER)[address] [place] [address] HEMOGLOBIN AND HEMATOCRIT, B LOODon 03-16-2024 Hematocrit (Bld) [Volume fraction] 29.0 % Low 36.0-48.0 [facility] Comment on above: Performed By: #### L [id number] ####[facility] (BEAKER)[address] [place] [address] Hemoglobin (Bld) [Mass/Vol] 9.4 g/dL Low 12.0-15.0 [facility] Comment on above: Performed By: #### L [id number] ####[facility] (BEAKER)[address] [place] [address] Hematocrit (Bld) [Volume fraction] 31.8 % Low 36.0-48.0 [facility] Comment on above: Performed By: #### L [id number] ####[facility] (BEAKER)[address] [place] [address] Hemoglobin (Bld) [Mass/Vol] 9.9 g/dL Low 12.0-15.0 [facility] Comment on above: Performed By: #### L [id number] ####[facility] (BEAKER)[address] [place] [address] Hematocrit (Bld) [Volume fraction] 30.0 % Low 36.0-48.0 [facility] Comment on above: Performed By: #### L [id number] ####[facility] (BEAKER)[address] [place] [address] Hemoglobin (Bld) [Mass/Vol] 9.6 g/dL Low 12.0-15.0 [facility] Comment on above: Performed By: #### L [id number] ####[facility] ([facility])[address] [place] [address] MAGNESIUMon 03-16-2024 Magnesium [Mass/Vol] 1.7 mg/dL Low 1.9-2.7 [facility] Comment on above: Performed By: #### L [id number] ####[facility] ([facility])[address] [place] [address] PHOSPHORUSon 03-16-2024 Magnesium [Mass/Vol] 2.4 mg/dL Low 2.5-5.0 [facility] Comment on above: Performed By: #### L [id number] ####[facility] ([facility])[address] [place] [address] TROPONIN Ion 03-16-2024 Troponin I.cardiac [Mass/Vol] 0.05 ng/mL High 0.00-0.04 [facility] Comment on above: Performed By: #### L [id number] ####[facility] (AKER)[address] [place] [address] Troponin I.cardiac [Mass/Vol] 0.05 ng/mL High 0.00-0.04 [facility] Comment on above: Performed By: #### L [id number] ####[facility] (BEAKER)[address] [place] [address] Troponin I.cardiac [Mass/Vol] 0.03 ng/mL Normal 0.00-0.04 [facility] Comment on above: Performed By: #### L [id number] ####[facility] (BEAKER)[address] [place] [address] Troponin I.cardiac [Mass/Vol] 0.02 ng/mL Normal 0.00-0.04 [facility] Comment on above: Performed By: #### L [id number] ####[facility] (BEAKER)[address] [place] [address] Troponin I.cardiac [Mass/Vol] 0.07 ng/mL High 0.00-0.04 [facility] Comment on above: Performed By: #### L [id number] ####[facility] (BEAKER)[address] [place] [address] VANCOMYCIN, PEAKon 03-16- 4 VANCOMYCIN (UG/ML) IN SER/PLAS - PEAK 13.4 ug/mL Low 20.0-50.0 [facility] Comment on above: Performed By: #### L [id number] ####[facility] (BEAKER)[address] [place] [address] 30on 03-15-2023 30 Normal [facility] BASIC METABOLIC PANELon 02-16 Anion gap [Moles/Vol] 10 mmol/L Normal 7-20 [facility] Comment on above: Performed By: #### L [id number] ####[facility] (BEAKER)[address] [place] [address] Calcium [Mass/Vol] 7.9 mg/dL Low 8.6-10.3 [facility] Comment on above: Performed By: #### L [id number] ####[facility] (BEAKER)[address] [place] [address] Chloride [Moles/Vol] 110 mmol/L High 98-107 [facility] Comment on above: Performed By: #### L [id number] ####[facility] (BEAKER)[address] [place] [address] CO2 [Moles/Vol] 23 mmol/L Normal 21-31 [facility] Comment on above: Performed By: #### L [id number] ####[facility] (BEAKER)[address] [place] [address] Creatinine [Mass/Vol] 0.59 mg/dL Low 0.60-1.20 [facility] Comment on above: Performed By: #### L [id number] ####[facility] (BEAKER)[address] [place] [address] GLOMERULAR FILTRATION RATE ML/MIN/1.73 SQ M.PREDICTED 100.0 mL/min/1.73m*2 Normal >60.0 [facility] Comment on above: Result Comment: The [facility]???s estimated glomerular filtration rate (eGFR) will no longer include consideration of race in its calculation. The National Kidney Foundation???s eGFR Task Force developed new recommendations for the estimation of the glomerular filtration rate in the [place] They recommend immediate implementation of the new equation refit without the race variable in all laboratories because the calculation does not include race. In addition to not including race in the calculation and reporting, it included diversity in its development, and has acceptable performance characteristics and potential consequences that do not disproportionately affect any one group of individuals. Performed By: #### L [id number] ####[facility] ([facility])[address] [place] [address] Glucose [Mass/Vol] 103 mg/dL High 70-100 [facility] Comment on above: Performed By: #### L [id number] ####[facility] ([facility])[address] [place] [address] Potassium [Moles/Vol] 3.6 mmol/L Normal 3.5-5.1 [facility] Comment on above: Performed By: #### L [id number] ####[facility] ([facility])[address] [place] [address] Sodium [Moles/Vol] 139 mmol/L Normal 136-145 [facility] Comment on above: Performed By: #### L [id number] ####[facility] ([facility])[address] [place] [address] Urea nitrogen [Mass/Vol] 11 mg/dL Normal 7-25 [facility] Comment on above: Performed By: #### L [id number] ####[facility] ([facility])[address] [place] [address] UREA NITROGEN/CREATININE (MASS RATIO) IN SER/PLAS 18.6 Normal [facility] Comment on above: Performed By: #### L [id number] ####[facility] ([facility])[address] [place] [address] Anion gap [Moles/Vol] 9 mmol/L Normal 7-20 [facility] Comment on above: Performed By: #### L [id number] ####[facility] ([facility])[address] [place] [address] Calcium [Mass/Vol] 7.9 mg/dL Low 8.6-10.3 [facility] Comment on above: Performed By: #### L [id number] ####[facility] ([facility])[address] [facility] [place] [address] Chloride [Moles/Vol] 107 mmol/L Normal 98-107 [facility] Comment on above: Performed By: #### L [id number] ####[facility] ([facility])[address] [place] [address] CO2 [Moles/Vol] 24 mmol/L Normal 21-31 [facility] Comment on above: Performed By: #### L [id number] ####[facility] ([facility])[address] [facility] [place] [address] Creatinine [Mass/Vol] 0.65 mg/dL Normal 0.60-1.20 [facility] Comment on above: Performed By: #### L [id number] ####[facility] ([facility])[address] [place] [address] GLOMERULAR FILTRATION RATE ML/MIN/1.73 SQ M.PREDICTED 97.6 mL/min/1.73m*2 Normal >60.0 [facility] Comment on above: Result Comment: The [facility]???s estimated glomerular filtration rate (eGFR) will no longer include consideration of race in its calculation. The National Kidney Foundation???s eGFR Task Force developed new recommendations for the estimation of the glomerular filtration rate in the [place] They recommend immediate implementation of the new equation refit without the race variable in all laboratories because the calculation does not include race. In addition to not including race in the calculation and reporting, it included diversity in its development, and has acceptable performance characteristics and potential consequences that do not disproportionately affect any one group of individuals. Performed By: #### L [id number] ####[facility] ([facility])[address] [place] [address] Glucose [Mass/Vol] 117 mg/dL High 70-100 [facility] Comment on above: Performed By: #### L [id number] ####[facility] ([facility])[address] [place] [address] Potassium [Moles/Vol] 3.8 mmol/L Normal 3.5-5.1 [facility] Comment on above: Performed By: #### L [id number] ####[facility] ([facility])[address] [place] [address] Sodium [Moles/Vol] 136 mmol/L Normal 136-145 [facility] Comment on above: Performed By: #### L [id number] ####[facility] ([facility])[address] [place] [address] Urea nitrogen [Mass/Vol] 15 mg/dL Normal 7-25 [facility] Comment on above: Performed By: #### L [id number] ####[facility] ([facility])[address] [place] [address] UREA NITROGEN/CREATININE (MASS RATIO) IN SER/PLAS 23.1 Normal [facility] Comment on above: Performed By: #### L [id number] ####[facility] ([facility])[address] [place] [address] CBCon 03-15-2024 Erythrocyte distribution width (RBC) [Ratio] 14.7 % Normal 11.5-15.0 [facility] Comment on above: Performed By: #### L [id number] ####[facility] ([facility])[address] [place] [address] ERYTHROCYTE MEAN CORPUSCULAR HEMOGLOBIN CONCENTRATION (G/DL) BY AUTOMATED 31.5 g/dL Low 32.0-35.0 [facility] Comment on above: Performed By: #### L [id number] ####[facility] ([facility])[address] [place] [address] Hematocrit (Bld) [Volume fraction] 28.9 % Low 36.0-48.0 [facility] Comment on above: Performed By: #### L [id number] ####[facility] ([facility])[address] [place] [address] Hemoglobin (Bld) [Mass/Vol] 9.1 g/dL Low 12.0-15.0 [facility] Comment on above: Performed By: #### L [id number] ####[facility] ([facility])[address] [place] [address] MCH (RBC) [Entitic mass] 29.4 pg Normal 27.0-33.0 [facility] Comment on above: Performed By: #### L [id number] ####[facility] ([facility])[address], [place] [address] MCV (RBC) [Entitic vol] 93.5 fL Normal 82.0-98.0 [facility] Comment on above: Performed By: #### L [id number] ####[facility] ([facility])[address] [place] [address] PLATELETS (10*3/UL) IN BLOOD AUTOMATED COUNT 170 10*3/uL Normal 150-400 [facility] Comment on above: Performed By: #### L [id number] ####[facility] ([facility])[address], [place] [address] RBC (Bld) [#/Vol] 3.09 10*6/uL Low 3.80-5.00 [facility] Comment on above: Performed By: #### L [id number] ####[facility] ([facility])[address] [place] [address] WBC (Bld) [#/Vol] 6.38 10*3/uL Normal 4.00-10.60 [facility] Comment on above: Performed By: #### L [id number] ####[facility] ([facility])[address] [place] [address] Erythrocyte distribution width (RBC) [Ratio] 14.9 % Normal 11.5-15.0 [facility] Comment on above: Performed By: #### L [id number] ####[facility] ([facility])[address] [place] [address] ERYTHROCYTE MEAN CORPUSCULAR HEMOGLOBIN CONCENTRATION (G/DL) BY AUTOMATED 32.0 g/dL Normal 32.0-35.0 [facility] Comment on above: Performed By: #### L [id number] ####[facility] ([facility])[address] [address] Hematocrit (Bld) [Volume fraction] 28.4 % Low 36.0-48.0 [facility] Comment on above: Performed By: #### L [id number] ####[facility] ([facility])[address] [address] Hemoglobin (Bld) [Mass/Vol] 9.1 g/dL Low 12.0-15.0 [facility] Comment on above: Performed By: #### L [id number] ####[facility] ([facility])[address] [place] [address] MCH (RBC) [Entitic mass] 29.7 pg Normal 27.0-33.0 [facility] Comment on above: Performed By: #### L [id number] ####[facility] ([facility])[address] [address] MCV (RBC) [Entitic vol] 92.8 fL Normal 82.0-98.0 [facility] Comment on above: Performed By: #### L [id number] ####[facility] ([facility])[address] [place] [address] PLATELETS (10*3/UL) IN BLOOD AUTOMATED COUNT 180 10*3/uL Normal 150-400 [facility] Comment on above: Performed By: #### L [id number] ####[facility] ([facility])[address] [address] RBC (Bld) [#/Vol] 3.06 10*6/uL Low 3.80-5.00 [facility] Comment on above: Performed By: #### L [id number] ####[facility] ([facility])[address] [place] [address] WBC (Bld) [#/Vol] 5.62 10*3/uL Normal 4.00-10.60 [facility] Comment on above: Performed By: #### L [id number] ####[facility] ([facility])[address] [place] [address] HEMOGLOBIN AND HEMATOCRIT, B LOODon 03-15-2024 Hematocrit (Bld) [Volume fraction] 30.1 % Low 36.0-48.0 [facility] Comment on above: Performed By: #### L [id number] ####[facility] ([facility])[address] [place] [address] Hemoglobin (Bld) [Mass/Vol] 9.5 g/dL Low 12.0-15.0 [facility] Comment on above: Performed By: #### L [id number] ####[facility] ([facility])[address] [place] [address] Hematocrit (Bld) [Volume fraction] 30.3 % Low 36.0-48.0 [facility] Comment on above: Performed By: #### L [id number] ####[facility] ([facility])[address] [place] [address] Hemoglobin (Bld) [Mass/Vol] 9.7 g/dL Low 12.0-15.0 [facility] Comment on above: Performed By: #### L [id number] ####[facility] ([facility])[address] [place] [address] MAGNESIUMon 03-15-2024 Magnesium [Mass/Vol] 1.5 mg/dL Low 1.9-2.7 [facility] Comment on above: Performed By: #### L [id number] ####[facility] ([facility])[address] [place] [address] MRSA/MSSA DNA NASALon 2023 MRSA DNA Negative Normal Negative [facility] Comment on above: Order Comment: Testi ng methodology is an automated qualitative in vitro diagnostic test for the directdetection and differentiation of Staphylococcus aureus (SA) DNA and methicillin-resistant Staphylococcus aureus (MRSA) DNA from nasal swabs in patients at risk for nasal colonization. The test utilizes real-time polymerase chain reaction (PCR) for the amplification of MRSA/SA DNA and fluorogenic target-specific hybridization probes for the detection of the amplified DNA. A negative result does not preclude nasal colonization. Performed By: #### L [id number] ####[facility] ([facility])[address] [place] [address] MSSA DNA Negative Normal Negative [facility] Comment on above: Order Comment: Testi ng methodology is an automated qualitative in vitro diagnostic test for the directdetection and differentiation of Staphylococcus aureus (SA) DNA and methicillin-resistant Staphylococcus aureus (MRSA) DNA from nasal swabs in patients at risk for nasal colonization. The test utilizes real-time polymerase chain reaction (PCR) for the amplification of MRSA/SA DNA and fluorogenic target-specific hybridization probes for the detection of the amplified DNA. A negative result does not preclude nasal colonization. Performed By: #### L [id number] ####[facility] ([facility])[address] [place] [address] PHOSPHORUSon 03-15-2024 Magnesium [Mass/Vol] 2.1 mg/dL Normal 1.9-2.7 [facility] Comment on above: Performed By: #### L [id number] ####[facility] ([facility])[address] [place] [address] Performed By: #### L [id number] ####[facility] ([facility])[address] [place] [address] Magnesium [Mass/Vol] 2.8 mg/dL Normal 2.5-5.0 [facility] Comment on above: Performed By: #### L [id number] ####[facility] ([facility])[address] [place] [address] TROPONIN Ion 03-15-2024 Troponin I.cardiac [Mass/Vol] 0.02 ng/mL Normal 0.00-0.04 [facility] Comment on above: Performed By: #### L [id number] ####[facility] ([facility])[address] [facility] [address] Troponin I.cardiac [Mass/Vol] 0.01 ng/mL Normal 0.00-0.04 [facility] Comment on above: Performed By: #### L [id number] ####[facility] ([facility])[address] [facility] [address] Troponin I.cardiac [Mass/Vol] 0.02 ng/mL Normal 0.00-0.04 [facility] Comment on above: Performed By: #### L [id number] ####[facility] ([facility])[address] [facility] [address] Troponin I.cardiac [Mass/Vol] 0.03 ng/mL Normal 0.00-0.04 [facility] Comment on above: Performed By: #### L [id number] ####[facility] ([facility])[address] [facility] [address] Troponin I.cardiac [Mass/Vol] 0.07 ng/mL High 0.00-0.04 [facility] Comment on above: Performed By: #### L [id number] ####[facility] ([facility])[address] [place] [address] 1,7-CEIF-Y-GLUCANon 03-14-20 24 (1,3)-OOYL-G-IOFYQW 47 pg/mL Normal [facility] Comment on above: Performed By: #### L [id number] ####[facility] ([facility])[address] [place] [address] (1,3)-NNJU-H-GILVZA INTERPRETATION Negative Normal Negative [facility] Comment on above: Result Comment: INTE RPRETIVE INFORMATION: (1,3)-bjnw-N-xsovwg (Fungitell) Less than 31 pg/mL ................... Negative 31-59 pg/mL .......................... Negative 60-79 pg/mL .......................... Indeterminate Greater than or equal to 80 pg/mL .... PositiveThe Fungitell test is indicated for presumptive diagnosisof fungal infection and should be used in conjunction withother diagnostic procedures. This test does not detectcertain fungal species such as Cryptococcus, which producevery low levels of (1,3)-qfzm-T-kyqyqf. This test will notdetect the zygomycetes, such as Absidia, Mucor, andRhizopus, which are not known to produce(1,3)-zbbj-A-mqiylm. In addition, the yeast phase ofBlastomyces dermatitidis produces little(1,3)-qllx-U-mepdsb and may not be detected by the assay.Performed By: [facility] [place] [id number] Director: Tip Hathaway MD, PhDCLIA Number: [id number] Performed By: #### L [id number] ####[facility] ([facility])[address] [place] [address] 30on 03-14-2024 30 Normal [facility] 30 Normal [facility] 30 The patient is Moder ately Unstable - Medium risk of patient condition declining or worsening The patient's goals for the shift include NABIL The clinical goals for the shift include Reduce Bleeding and VSS Normal [facility] AFB CULTUREon 03-14-2024 AFB CULTURE No growth at 9 days Normal [facility] Comment on above: Performed By: #### L [id number] ####[facility] ([facility])[address] [place] [address] AFB STAIN No acid fast bacilli seen Normal [facility] Comment on above: Performed By: #### L [id number] ####[facility] ([facility])[address] [place] [address] ALLERGEN ASPERGILLUS FUMIGAT USon 03-14-2024 ALLERGEN MICROORGANISM: ASPERGILLUS FUMIGATUS IGE (KU/L) <0.10 Normal <=0.34 [facility] Comment on above: Result Comment: Perf ormed By: [facility] [place] [id number] Director: Tip Hathaway MD, PhDCLIA Number: [id number] Performed By: #### L [id number] ####[facility] [employer] ([facility])[address] [place] [address] ALLERGEN INTERPRETATIONon ALLERGEN INTERPRETATION See Note Normal [facility] Comment on above: Result Comment: REFE RENCE INTERVAL: Allergen, Interpretation Less than 0.10 kU/L......Class 0.....No significant level detected 0.10-0.34 kU/L...........Class 0/1...Clinical relevanceundetermined 0.35-0.70 kU/L...........Class 1.....Low 0.71-3.50 kU/L...........Class 2.....Moderate 3.51-17.50 kU/L..........Class 3.....High 17.51-50.00 kU/L.........Class 4.....Very High 50.01-100.00 kU/L........Class 5.....Very High Greater than 100.00kU/L..Class 6.....Very HighAllergen results of 0.10-0.34 kU/L are intended for specialist useas the clinical relevance is undetermined. Even though increasingranges are reflective of increasing concentrations ofallergen-specific IgE, these concentrations may not correlate withthe degree of clinical response or skin testing results whenchallenged with a specific allergen. The correlation of allergylaboratory results with clinical history and in vivo reactivity tospecific allergens is essential. A negative test may not rule outclinical allergy or even anaphylaxis.Performed By: [facility] [place] [id number] Director: Tip Hathaway MD, PhDCLIA Number: [id number] Performed By: #### L [id number] ####[facility] [employer] ([facility])[address] [place] [address] APTTon 03-14-2024 ACTIVATED PARTIAL THROMBOPLASTIN TIME IN PPP BY COAGULATION ASSAY 26.4 Seconds Normal 25.0-35.0 [facility] Comment on above: Result Comment: Clin ical significance of the APTT is questionable in the presence of heparin. Performed By: #### L [id number] ####[facility] ([facility])[address] [place] [address] ASPERGILLUS GALACTOMANNAN AN TIGENon 03-14-2024 ASPERGILLUS GALACTOMANNAN ANTIGEN, SERUM Negative Normal Negative [facility] Comment on above: Result Comment: INTE RPRETIVE INFORMATION: Aspergillus Galactomannan Antigen by EIANegative results do not exclude the diagnosis of invasiveaspergillosis. A single positive test result (index equalto or greater than 0.5) should be clinically correlatedby testing a separate serum specimen because many agents(e.g. foods, antibiotics) may cross-react with the test.If invasive aspergillosis is suspected in high-riskpatients, serial sampling is recommended.Performed By: [facility] [place], [place] [address]Lcgaplifcq Director: Tip Hathaway MD, PhDCLIA Number: [id number] Performed By: #### L [id number] ####[facility] ([facility])[address] [place] [address] ASPERGILLUS GALACTOMANNAN INDEX 0.03 Normal [facility] Comment on above: Performed By: #### L [id number] ####[facility] ([facility] [place] [place] [address] ASPERGILLUS GALACTOMANNAN ANTIGEN, SERUM Negative Normal Negative [facility] Comment on above: Result Comment: INTE RPRETIVE INFORMATION: Aspergillus Galactomannan Antigen by EIANegative results do not exclude the diagnosis of invasiveaspergillosis. A single positive test result (index equalto or greater than 0.5) should be clinically correlatedby testing a separate serum specimen because many agents(e.g. foods, antibiotics) may cross-react with the test.If invasive aspergillosis is suspected in high-riskpatients, serial sampling is recommended.Performed By: [facility] [place], [place] [address]Anazdrpguz Director: Tip Hathaway MD, PhDCLIA Number: [id number] Performed By: #### L [id number] ####[facility] ([facility])[address] [place] [address] ASPERGILLUS GALACTOMANNAN INDEX 0.03 Normal [facility] Comment on above: Performed By: #### L [id number] ####[facility] ([facility])[address] [place] [address] BASIC METABOLIC PANELon 02-15 Anion gap [Moles/Vol] 11 mmol/L Normal 7-20 [facility] Comment on above: Performed By: #### L [id number] ####[facility] ([facility])[address] [facility] [address] Calcium [Mass/Vol] 7.7 mg/dL Low 8.6-10.3 [facility] Comment on above: Performed By: #### L [id number] ####[facility] ([facility])[address] [place] [address] Chloride [Moles/Vol] 106 mmol/L Normal 98-107 [facility] Comment on above: Performed By: #### L [id number] ####[facility] ([facility])[address] [facility] [address] CO2 [Moles/Vol] 26 mmol/L Normal 21-31 [facility] Comment on above: Performed By: #### L [id number] ####[facility] ([facility])[address] [place] [address] Creatinine [Mass/Vol] 0.73 mg/dL Normal 0.60-1.20 [facility] Comment on above: Performed By: #### L [id number] ####[facility] ([facility])[address] [place] [address] GLOMERULAR FILTRATION RATE ML/MIN/1.73 SQ M.PREDICTED 91.2 mL/min/1.73m*2 Normal >60.0 [facility] Comment on above: Result Comment: The [facility]???s estimated glomerular filtration rate (eGFR) will no longer include consideration of race in its calculation. The National Kidney Foundation???s eGFR Task Force developed new recommendations for the estimation of the glomerular filtration rate in the [place] They recommend immediate implementation of the new equation refit without the race variable in all laboratories because the calculation does not include race. In addition to not including race in the calculation and reporting, it included diversity in its development, and has acceptable performance characteristics and potential consequences that do not disproportionately affect any one group of individuals. Performed By: #### L [id number] ####[facility] ([facility])[address] [place] [address] Glucose [Mass/Vol] 104 mg/dL High 70-100 [facility] Comment on above: Performed By: #### L [id number] ####[facility] ([facility])[address] [place] [address] Potassium [Moles/Vol] 4.0 mmol/L Normal 3.5-5.1 [facility] Comment on above: Performed By: #### L [id number] ####[facility] ([facility])[address] [place] [address] Sodium [Moles/Vol] 139 mmol/L Normal 136-145 [facility] Comment on above: Performed By: #### L [id number] ####[facility] ([facility])[address] [place] [address] Urea nitrogen [Mass/Vol] 17 mg/dL Normal 7-25 [facility] Comment on above: Performed By: #### L [id number] ####[facility] ([facility])[address] [place] [address] UREA NITROGEN/CREATININE (MASS RATIO) IN SER/PLAS 23.3 Normal [facility] Comment on above: Performed By: #### L [id number] ####[facility] ([facility])[address] [place] [address] BLOOD CULTUREon 03-14-2024 Bacteria identified Cx Nom (Bld) No growth at 5 days Normal [facility] Comment on above: Performed By: #### L [id number] ####[facility] ([facility])[address] [place] [address] Order Comment: From a different site than #1. BODY FLUID CELL DIFFERENTIAL on 03-14-2024 BASOPHILS TOTAL PER COUNTED LEUKOCYTES IN BODY FLUID BY MANUAL COUNT [facility] Comment on above: Order Comment: Diffe rential performed on cytospin Performed By: #### L [id number] ####[facility] ([facility])[address] [place] [address] CELLS COUNTED TOTAL (#) IN BODY FLUID 100 Normal [facility] Comment on above: Order Comment: Diffe rential performed on cytospin Performed By: #### L [id number] ####[facility] ([facility])[address] [place] [address] EOSINOPHILS TOTAL PER COUNTED LEUKOCYTES IN BODY FLUID BY MANUAL COUNT [facility] Comment on above: Order Comment: Diffe rential performed on cytospin Performed By: #### L [id number] ####[facility] ([facility])[address] [place] [address] LYMPHOCYTES TOTAL PER COUNTED LEUKOCYTES IN BODY FLUID BY MANUAL COUNT 13 [facility] Comment on above: Order Comment: Diffe rential performed on cytospin Performed By: #### L [id number] ####[facility] ([facility])[address] [place] [address] MESOTHELIAL CELLS TOTAL PER COUNTED LEUKOCYTES IN BODY FLUID BY MANUAL COUN [facility] Comment on above: Order Comment: Diffe rential performed on cytospin Performed By: #### L [id number] ####[facility] ([facility])[address] [place] [address] MONOCYTES+MACROPHAGES TOTAL PER COUNTED LEUKOCYTES IN BODY FLUID BY MANUAL 36 [facility] Comment on above: Order Comment: Diffe rential performed on cytospin Performed By: #### L [id number] ####[facility] ([facility])[address] [place] [address] NEUTROPHILS TOTAL PER COUNTED LEUKOCYTES IN BODY FLUID BY MANUAL COUNT 51 [facility] Comment on above: Order Comment: Diffe rential performed on cytospin Performed By: #### L [id number] ####[facility] ([facility])[address] [place] [address] OTHER CELLS BODY FLUID (MANUAL) Normal [facility] Comment on above: Order Comment: Jas cason performed on cytospin Performed By: #### L [id number] ####[facility] ([facility] [place] [address] CBC WITH AUTO DIFFERENTIALon 03-14-2024 Erythrocyte distribution width (RBC) [Ratio] 14.7 % Normal 11.5-15.0 [facility] Comment on above: Performed By: #### L [id number] ####[facility] ([facility])[address] [place] [address] ERYTHROCYTE MEAN CORPUSCULAR HEMOGLOBIN CONCENTRATION (G/DL) BY AUTOMATED 31.6 g/dL Low 32.0-35.0 [facility] Comment on above: Performed By: #### L [id number] ####[facility] ([facility])[address] [place] [address] Hematocrit (Bld) [Volume fraction] 34.2 % Low 36.0-48.0 [facility] Comment on above: Performed By: #### L [id number] ####[facility] ([facility])[address] [place] [address] Hemoglobin (Bld) [Mass/Vol] 10.8 g/dL Low 12.0-15.0 [facility] Comment on above: Performed By: #### L [id number] ####[facility] ([facility])[address] [place] [address] MCH (RBC) [Entitic mass] 29.8 pg Normal 27.0-33.0 [facility] Comment on above: Performed By: #### L [id number] ####[facility] ([facility])[address] [place] [address] MCV (RBC) [Entitic vol] 94.5 fL Normal 82.0-98.0 [facility] Comment on above: Performed By: #### L [id number] ####[facility])[address] [place] [address] NRBC (PER 100 WBCS) BY AUTOMATED COUNT 0.0 % Normal 0 [facility] Comment on above: Performed By: #### L [id number] ####[facility] ([facility])[address] [place] [address] PLATELETS (10*3/UL) IN BLOOD AUTOMATED COUNT 218 10*3/uL Normal 150-400 [facility] Comment on above: Performed By: #### L [id number] ####[facility] ([facility])[address] [place] [address] RBC (Bld) [#/Vol] 3.62 10*6/uL Low 3.80-5.00 [facility] Comment on above: Performed By: #### L [id number] ####[facility] ([facility])[address] [place] [address] WBC (Bld) [#/Vol] 18.33 10*3/uL High 4.00-10.60 [facility] Comment on above: Performed By: #### L [id number] ####[facility] ([facility])[address] [place] [address] CONSULTon 03-14-2024 CONSULT Normal [facility] FUNGAL CULTUREon 03-14-2024 FUNGAL SMEAR No yeast or fungal e lements seen Normal [facility] Comment on above: Performed By: #### L [id number] ####[facility])[address] [place] [address] HEMOGLOBIN AND HEMATOCRIT, B LOODon 03-14-2024 Hematocrit (Bld) [Volume fraction] 31.9 % Low 36.0-48.0 [facility] Comment on above: Performed By: #### L [id number] ####[facility] ([facility])[address] [place] [address] Hemoglobin (Bld) [Mass/Vol] 10.3 g/dL Low 12.0-15.0 [facility] Comment on above: Performed By: #### L [id number] ####[facility] ([facility])[address] [place] [address] HPon 03-14-2024 HP Normal [facility] IGG, IGA, IGMon 03-14-2024 Magnesium [Mass/Vol] 1340 mg/dL Normal 591-1540 [facility] Comment on above: Performed By: #### L [id number] ####[facility] ([facility])[address] [place] [address] Magnesium [Mass/Vol] 517 mg/dL High 60-413 [facility] Comment on above: Performed By: #### L [id number] ####[facility] ([facility])[address] [place] [address] Magnesium [Mass/Vol] 95.3 mg/dL Normal 54-285 [facility] Comment on above: Performed By: #### L [id number] ####[facility] ([facility])[address] [place] [address] IMMUNOGLOBULIN Skyler IMMUNOGLOBIN E 32 IU/mL Normal 0-100 [facility] Comment on above: Result Comment: Test Performed by [facility] [place] [address] - Released 03/14/2024 23:25 Performed By: #### L [id number] ####[employer] [facility] [id number] [place] [address] LACTIC ACID WITH 4 HOUR REFL EXon 03-14-2024 LACTATE (MMOL/L) IN SER/PLAS 0.3 mmol/L Low 0.5-2.2 [facility] Comment on above: Performed By: #### L [id number] ####[facility] ([facility])[address] [place] [address] MAGNESIUMon 03-14-2024 Magnesium [Mass/Vol] 1.5 mg/dL Low 1.9-2.7 [facility] Comment on above: Performed By: #### L [id number] ####[facility] ([facility])[address] [place] [address] MANUAL DIFFERENTIALon 2023 BASOPHILS (10*3/UL) IN BLOOD BY CALCULATION 0.04 10*3/uL Normal 0.00-0.20 [facility] Comment on above: Performed By: #### L [id number] ####[facility] ([facility])[address] [place] [address] BASOPHILS/100 LEUKOCYTES IN BLOOD BY AUTOMATED COUNT 0.2 % Normal 0.0-1.0 [facility] Comment on above: Performed By: #### L [id number] ####[facility] ([facility])[address] [place] [address] EOSINOPHILS (10*3/UL) IN BLOOD BY CALCULATION 0.00 10*3/uL Normal 0.00-0.50 [facility] Comment on above: Performed By: #### L [id number] ####[facility] ([facility])[address] [place] [address] EOSINOPHILS/100 LEUKOCYTES IN BLOOD BY AUTOMATED COUNT 0.0 % Normal 0.0-6.0 [facility] Comment on above: Performed By: #### L [id number] ####[facility] ([facility])[address] [place] [address] IMMATURE GRANULOCYTES (10*3/UL) IN BLOOD BY CALCULATION 0.09 10*3/uL Normal 0.00-0.20 [facility] Comment on above: Performed By: #### L [id number] ####[facility] ([facility])[address] [place] [address] IMMATURE GRANULOCYTES/100 LEUKOCYTES IN BLOOD BY AUTOMATED COUNT 0.5 % Normal 0.0-1.0 [facility] Comment on above: Performed By: #### L [id number] ####[facility] ([facility])[address] [place] [address] LYMPHOCYTES (10*3/UL) IN BLOOD BY CALCULATION 0.24 10*3/uL Low 1.20-4.00 [facility] Comment on above: Performed By: #### L [id number] ####[facility] ([facility])[address] [place] [address] LYMPHOCYTES/100 LEUKOCYTES IN BLOOD BY AUTOMATED COUNT 1.3 % Low 20.0-45.0 [facility] Comment on above: Performed By: #### L [id number] ####[facility] ([facility])[address] [place] [address] MONOCYTES (10*3/UL) IN BLOOD BY CALCUATION 0.97 10*3/uL Normal 0.10-1.00 [facility] Comment on above: Performed By: #### L [id number] ####[facility] ([facility])[address] [place] [address] MONOCYTES/100 LEUKOCYTES IN BLOOD BY AUTOMATED COUNT 5.3 % Normal 5.0-12.0 [facility] Comment on above: Performed By: #### L [id number] ####[facility] ([facility])[address] [place] [address] NEUTROPHILS (10*3/UL) IN BLOOD BY CALCULATION 17.0 10*3/uL High 1.6-7.6 [facility] Comment on above: Performed By: #### L [id number] ####[facility] ([facility])[address] [place] [address] NEUTROPHILS/100 LEUKOCYTES IN BLOOD BY AUTOMATED COUNT 92.7 % High 40.0-72.0 [facility] Comment on above: Performed By: #### L [id number] ####[facility] ([facility])[address] [place] [address] MYCOPLASMA PNEUMONIAE ANTIBO DY, IGMon 03-14-2024 MYCOPLASMA PNEUMONIAE IGM 0.43 U/L Normal <=0.76 [facility] Comment on above: Result Comment: INTE RPRETIVE INFORMATION: Mycoplasma pneumoniae Ab, IgM 0.76 U/L or less .......... Negative: No clinically significant amount of M. pneumoniae IgM antibody detected. 0.77 - 0.95 U/L ........... Low Positive: M. pneumoniae- specific IgM presumptively detected. Collection of a follow-up sample in 1-2 weeks is recommended to assure reactivity. 0.96 U/L or greater ....... Positive: Highly significant amount of M. pneumoniae- specific IgM antibody detected. However, low levels of IgM antibodies may occasionally persist for more than 12 months post-infection.Performed By: [facility] [place] [id number] Director: Tip Hathaway MD, PhDCLIA Number: [id number] Performed By: #### L [id number] ####[facility] ([facility])[address] [place] [address] MYCOPLASMA PNEUMONIAE PCRon 03-14-2024 MYCOPLASMA PNEUMONIAE PCR Not detected Normal [facility] Comment on above: Result Comment: NOT DETECTED - A negative result does not rule out thepresence of PCR inhibitors in the patient specimen orassay specific nucleic acid in concentrations below thelevel of detection by the assay.INTERPRETIVE INFORMATION: Mycoplasma pneumoniae by PCRThis test was developed and its performance characteristicsdetermined by [facility]. It has not been cleared orapproved by the [place] Food and Drug Administration. This test wasperformed in a CLIA certified laboratory and is intended forclinical purposes.Performed By: [facility] [place] [id number] Director: Tip Hathaway MD, PhDCLIA Number: [id number] Performed By: #### L [id number] ####[facility] ([facility])[address] [place] [address] MYCOPLASMA PNEUMONIAE SOURCE Bronchial wash Normal [facility] Comment on above: Performed By: #### L [id number] ####[facility] ([facility])[address] [place] [address] NON-MOSAIC TECHNICIAN CYTOLOGY - CELLULAR EXAMon 03-14-2024 LAB AP CASE REPORT Normal [facility] Comment on above: Result Comment: Non- gynecologic Cytology Case: [id number] Provider: Quinn Adler MD Collected: 03/14/2024 1535Ordering Location: [facility] Medical Intensive Received: 03/15/2024 0721 CarePathologist: DAVID Reddypecimen: Bronchoalveolar lavage, right lower lobe Performed By: #### L [id number] ####[facility] ([facility])[address] [place] [address] LAB AP CLINICAL INFORMATION Hemoptysis Normal [facility] Comment on above: Performed By: #### L [id number] ####[facility] ([facility])[address] [place] [address] LAB AP GROSS DESCRIPTION Normal [facility] Comment on above: Result Comment: 27 m L cloudy, red mucoid fluid Performed By: #### L [id number] ####[facility] ([facility])[address] [place] [address] LAB AP REPORT FINAL DIAGNOSIS NARRATIVE Normal [facility] Comment on above: Result Comment: A. L óscar, right lower lobe, bronchoalveolar lavage: - Negative for malignancy - Marked acute inflammation and bacteria present. Performed By: #### L [id number] ####[facility] ([facility])[address] [place] [address] PATHOLOGY REVIEWon PATHOLOGY REVIEW Electronically pete d by Eboni Celis MD on 03/22/24 at 12:41 PM. Normal [facility] Comment on above: Performed By: #### L [id number] ####[facility] ([facility])[address] [place] [address] PHOSPHORUSon 03-14-2024 Magnesium [Mass/Vol] 3.7 mg/dL Normal 2.5-5.0 [facility] Comment on above: Performed By: #### L [id number] ####[facility] ([facility])[address] [place] [address] PNEUMOCYSTIS SMEAR BY DFAon 03-14-2024 PNEUMOCYSTIS SMEAR, DFA Negative Normal Negative [facility] Comment on above: Performed By: #### L [id number] ####[facility] ([facility])[address] [place] [address] PROTIME-INRon 03-14-2024 INR IN PPP BY COAGULATION ASSAY 1.08 Normal 0.90-1.10 [facility] Comment on above: Result Comment: ACCC P RECOMMENDED INR FOR WARFARIN THERAPY CONDITION INRPROPHYLAXIS OF VENOUS THROMBOSIS 2-3(HIGH-RISK SURGERY)TREATMENT OF VENOUS THROMBOSIS 2-3TREATMENT OF PULMONARY EMBOLISM 2-3PREVENTION OF SYSTEMIC EMBOLISM: 2-3 ACUTE MYOCARDIAL INFARCTION TISSUE HEART VALVES VALVULAR HEART DISEASE ATRIAL FIBRILLATION RECURRENT SYSTEMIC EMBOLISMMECHANICAL HEART VALVE 2.5-3.5 FROM: ORAL ANTICOAGULANTS. MECHANISM OF ACTION, CLINICAL EFFECTIVENESS, AND OPTIMAL THERAPEUTIC RANGE. CHEST 1995;108:231S-246S. Performed By: #### L [id number] ####[facility] ([facility])[address] [place] [address] PROTHROMBIN TIME (PT) IN PPP BY COAGULATION ASSAY 14.0 Seconds Normal 12.3-14.8 [facility] Comment on above: Performed By: #### L [id number] ####[facility] [employer])[address] [place] [address] RESPIRATORY CULTUREon 2023 Bacteria identified Cx Nom (Unsp spec) Normal [facility] Comment on above: Result Comment: >10, 000 CFU/mL of Colonies Consistent with Upper Respiratory Li Performed By: #### L [id number] ####[facility] [employer])[address] [place] [address] GRAM STAIN RESULT Normal [facility] Comment on above: Result Comment: Poly morphonuclear leukocytesGram positive cocci in pairsGram negative bacilliCytocentrifuge sample Performed By: #### L [id number] ####[facility] ([facility])[address] [facility] [address] TRIGLYCERIDESon 03-14-2024 FASTING? unknown Normal [facility] Comment on above: Order Comment: Monit or triglycerides while patient is on propofol. Consult Nutrition if greater than 500 mg/dL. Performed By: #### L [id number] ####[facility] ([facility])[address] [place] [address] Magnesium [Mass/Vol] 84 mg/dL Normal 40-149 [facility] Comment on above: Order Comment: Monit or triglycerides while patient is on propofol. Consult Nutrition if greater than 500 mg/dL. Result Comment: TRIG LYCERIDE REFERENCE RANGE:20 YEARS AND OLDER CARDIOVASCULAR RISKLESS THAN 150 mg/dL LOW [id number] TO 199 mg/dL BORDERLINE [id number] mg/dL AND GREATER HIGH RISK Performed By: #### L [id number] ####[facility] ([facility])[address] [place] [address] TROPONIN Ion 03-14-2024 Troponin I.cardiac [Mass/Vol] 0.05 ng/mL High 0.00-0.04 [facility] Comment on above: Performed By: #### L [id number] ####[facility] ([facility])[address] [facility] [place] [address] Troponin I.cardiac [Mass/Vol] 0.06 ng/mL High 0.00-0.04 [facility] Comment on above: Performed By: #### L [id number] ####[facility] ([facility])[address] [facility] [address] TYPE AND SCREENon 03-14-2024 AB SCREEN Negative Normal [facility] Comment on above: Performed By: #### L [id number] ####[facility], ABO group Nom (Bld) A Normal [facility] Comment on above: Performed By: #### L [id number] ####[facility], RH TYPE IN BLOOD Negative Normal [facility] Comment on above: Performed By: #### L [id number] ####[facility], BI MAMMOGRAM SCREENING TOMOS YNTHESIS BILATERALon 03-01-2024 [...] IS VERY IMPORTANT TO YOUR HEALTH. THE [employer] GUIDELINES RECOMMEND THAT WOMEN 40 [...] activity/Vol] 47 [iU]/d Normal 21 - 98 Int._Unit/ L Remisol Chem ALT No additional P-5'-P [Catalytic activity/Vol] 9 [iU]/d Normal 6 - 46 Int._Unit/ L Remisol Chem Anion gap [Moles/Vol] 11 mmol/L Normal 6 - 16 mEq/L Remisol Chem AST [Catalytic activity/Vol] 16 [iU]/d Normal 5 - 43 Int._Unit/ L Remisol Chem Bilirubin [Mass/Vol] 0.4 mg/dL Normal [...] Chem eGFR 99 mL/min/1.73 m2 Normal >=59mL/min /1.73 m2 Remisol Chem Globulin (S) [Mass/Vol] 3.7 [...] 02-26-2024 Albumin [Mass/Vol] 4.1 g/dL Normal 3.3-5.0 [facility] Comment on above: Performed By: #### 2 [id number] #### [facility] [address] [place] [address] Albumin/Globulin (S) [Mass conc ratio] 1.1 Normal 1.1-2.2 [facility] Comment on above: Performed By: #### 2 [id number] #### [facility] [address] [place] [address] ALP [Catalytic activity/Vol] 47 Int._Unit/L Normal 21-98 [facility] Comment on above: Performed By: #### 2 [id number] #### [facility] [address] [place] [address] ALT No additional P-5'-P [Catalytic activity/Vol] 9 Int._Unit/L Normal 6-46 [facility] Comment on above: Performed By: #### 2 [id number] #### [facility] [address] [place] [address] Anion gap [Moles/Vol] 11 mmol/L Normal 6-16 [facility] Comment on above: Performed By: #### 2 [id number] #### [facility] [address] [place] [address] AST [Catalytic activity/Vol] 16 Int._Unit/L Normal 5-43 [facility] Comment on above: Performed By: #### 2 [id number] #### [facility] [address] [place] [address] Bilirubin [Mass/Vol] 0.4 mg/dL Normal 0.0-1.1 [facility] Comment on above: Performed By: #### 2 [id number] #### [facility] [address] [place] [address] Calcium [Mass/Vol] 9.8 mg/dL Normal 8.9-11.1 [facility] Comment on above: Performed By: #### 2 [id number] #### [facility] [address] [place] [address] Chloride [Moles/Vol] 102 mmol/L Normal 101-111 [facility] Comment on above: Performed By: #### 2 [id number] #### [facility] [address] [place] [address] CO2 [Moles/Vol] 27 mmol/L Normal 21-31 [facility] Comment on above: Performed By: #### 2 [id number] #### [facility] [address] [place] [address] Creatinine [Mass/Vol] 0.6 mg/dL Normal 0.5-1.3 [facility] Comment on above: Performed By: #### 2 [id number] #### [facility] [address] [place] [address] Globulin (S) [Mass/Vol] 3.7 g/dL Normal 1.4-4.0 [facility] Comment on above: Performed By: #### 2 [id number] #### [facility] [address] [place] [address] Glucose [Mass/Vol] 67 mg/dL Normal 55-199 [facility] Comment on above: Performed By: #### 2 [id number] #### [facility] [address] [place] [address] Potassium [Moles/Vol] 4.2 mmol/L Normal 3.5-5.3 [facility] Comment on above: Performed By: #### 2 [id number] #### [facility] [address] [place] [address] Protein [Mass/Vol] 7.8 g/dL Normal 6.0-7.8 [facility] Comment on above: Performed By: #### 2 [id number] #### [facility] [address] [place] [address] Sodium [Moles/Vol] 136 mmol/L Normal 135-145 [facility] Comment on above: Performed By: #### 2 [id number] #### [facility] [address] [place] [address] Urea nitrogen [Mass/Vol] 15 mg/dL Normal 5-21 [facility] Comment on above: Performed By: #### 2 [id number] #### [facility] [address] [place] [address] Urea nitrogen/Creatinine [Mass ratio] 25 No Units High 10-20 [facility] Comment on above: Performed By: #### 2 [id number] #### [facility] [address] [place] [address] General Surgery Office/Clini c Noteon 02-26-2024 General Surgery Office/Clinic Note General Surgery Office/Clinic Note Chief Complaint Hormone positive left breast cancer surveillance visit HPI Staff Emeli is a 63 y.o. female here for 3 month follow up Hx of left breast cancer s/p Spray Node biopsy of left done 04/11/2023 Denies [...] E&M of Est. Patient Low 20-29 Min [address]4340 Personal history of malignant neoplasm of breast (Z85.3: Personal history of malignant neoplasm of breast) As above Portions of this record may have been created with voice recognition artificial intelligence software, specifically Apartment [employer], What[employer]on and or Statzup. Substitutions may have occurred due to the [...] 50,000 intl units (1.25 mg) oral capsule, [address] International_Unit= 1 cap(s), Oral, qWeek Allergies No [...] influenza virus vaccine, inactivated 07/14/2014 Recorded Normal [facility] Comment on above: Result Comment: Elec tronically Signed By: Aurora RICE, Lauro Roabr\Date and Time Signed: 02/26/24 14:44 EDT eGFRon 02-26-2024 eGFR 99 mL/min/1.73 m2 Normal >=59 [facility] Comment on above: Order Comment: Order added by Discern Expert. Performed By: #### 1 [id number] #### [facility] [address] [facility] [address] CNOVon 02-20-2024 [facility] EMELI KAUFMAN ([id number]) 1960 F Date Time Provider Department 02/20/24 1:00 PM CHRIS BAUM During your visit today, we recorded the following information about you: Pulse Blood pressure Weight Height 83/minute 133/81 59 kg 1.651 m Chris Baum MD 02/20/2024 5:38 PM [facility] FOLLOWUP/ESTABLISHED PATIENT VISIT Also followed by: Brianna [...] modifying therapy. Neuro-QoL Functions (higher=better functioning) Flowsheet [facility] Office Visit from 02/20/2024 in [facility] Office Visit from 07/01/2015 in [facility] Office Visit from 05/28/2014 in [facility] Upper Extremity Domain T Score 57 47.9 56.84 Lower Extremity Domain T Score 50 48.92 55.49 Cognitive Function Domain T Score 67 -- -- Positive Affect Well Being T Score -- -- -- Ability To Participate In Social Roles T Score 56 -- -- Satisfaction With Social Roles T Score 62 -- -- Neuro-QoL Symptoms (higher=worse symptoms) Flowsheet [facility] Office Visit from 02/20/2024 in [facility] Office Visit from 07/01/2015 in [facility] Office Visit from 05/28/2014 in [facility] Sleep Domain T Score 32 38.15 [...] without mention of status migrainosus, Multiple sclerosis ([facility]), Pulmonary infiltrate, and Sciatica. She has no past medical history of Atrial fibrillation ([facility]), Cancer ([facility]), Chronic obstructive pulmonary disease (COPD) ([facility]), Chronic renal insufficiency, Congestive heart failure ([facility]), Coronary artery disease, Depression, Diabetes ([facility]), Epilepsy ([facility]), Hypertension, Obstructive sleep apnea, Steroid long-term use, Stroke ([facility]), or Substance abuse ([facility]). has a current medication list which includes the following prescription(s): letrozole, latanoprost, cholecalciferol, calcium carbonate, sodium chloride, albuterol, ipratropium bromide, and nebulizer and compressor for neb. EXAM: BP 133/81 Pulse 83 Ht 165.1 cm (5' 5 ) Wt 59 kg (130 lb) BMI 21.63 kg/m? MSPT Results Flowsheet [facility] Office Visit from 12/11/2015 in [facility] Office Visit from 07/01/2015 in [facility] Office Visit from 05/28/2014 [facility] Processing Speed Total Number Correct -- -- [...] Muscle tone: (more content not included)... Normal [facility] Oncology Progress Noteon Oncology Progress Note Chief [...] disease. Her tumor was discussed at the [facility] tumor board patient is to obtain Oncotype [...] Lumpectomy with wire-guided localization LYMPH NODE SAMPLING: Spray lymph node(s) SPECIMEN INTEGRITY: multiple specimens (A [...] invasive tumor cells, performed on previous biopsy ([id number]), please refer to previous report for details PROGESTERONE RECEPTOR: 20-30% of invasive tumor cells, performed on previous biopsy (858), please refer to previous report for details Ki-67 INDEX OF INVASIVE TUMOR CELLS: Approximately 1% of invasive tumor cells, performed on previous biopsy (7955), please refer to previous report for details HER2/ELIF STUDIES: 1+ ([facility]), performed on previous biopsy (2461), please refer to previous report for details [...] to adjuv (more content not included)... Normal [facility] Consent for Treatmenton 11-15 Consent for Treatment [id number] Normal [facility] Immunoglobs. A/E/G/Mon 11-26 IgA Quant duplt test Invalid Interpretation Code [facility] Comment on above: Performed By: #### 1 [id number] ####[facility] [id number] [place] [address] IgG Quant duplt test Invalid Interpretation Code [facility] Comment on above: Performed By: #### 1 [id number], [id number], 69050336, 8728413, 53421294, 8773009 ####[facility] [address] [place] [address] IgM Quant duplt test Invalid Interpretation Code [facility] Comment on above: Performed By: #### 1 6704661, 414765913, 51286441, 5736433, 46486675, 7670319 ####[facility] [address] [place] [address] Free K+L Lt Chains,Qn,Son Immunoglobulin light chains.kappa.free (S) [Mass/Vol] 32.2 mg/L High 3.3-19.4 [facility] Comment on above: Performed By: #### 1 3505067, 827337173, 81208970, 0820708, 62348082, 3452374 ####[facility] [address] [place] [address] Immunoglobulin light chains.kappa.free/Immu noglobulin light chains.lambda.free (S) [Mass ratio] 1.11 Invalid Interpretation Code 0.26-1.65 [facility] Comment on above: Result Comment: Perf ormed at: [facility] [address] [id number] PhD Adelfo Shannon Performed By: #### 1 5601965, 678348707, 85099230, 1412403, 83779254, 5260334 ####[address] [place] [address] Immunoglobulin light chains.lambda.free [Mass/Vol] 28.9 mg/L High 5.7-26.3 [facility] Comment on above: Performed By: #### 1 6877912, 545818410, 91252348, 3165484, 26542684, 0749770 ####[facility] [address] [place] [address] JULIO and PE, Serumon 11-26-19 Albumin [Mass/Vol] 3.6 g/dL Invalid Interpretation Code 2.9-4.4 [facility] Comment on above: Performed By: #### 1 2237918, 125912610, 60291819, 8143250, 74068336, 7420563 ####[address] [place] [address] Albumin/Globulin [Mass ratio] 0.9 {ratio} Invalid Interpretation Code 0.7-1.7 [facility] Comment on above: Performed By: #### 1 2102229, 061320544, 07711396, 3579043, 93772316, 9094208 ####[address] [place] [address] Alpha 1 globulin Elph [Mass/Vol] 0.4 g/dL Invalid Interpretation Code 0.0-0.4 [facility] Comment on above: Performed By: #### 1 7557834, 940127708, 51313426, 1603752, 59049303, 6220438 ####[address] [address] Alpha 2 globulin Elph [Mass/Vol] 0.9 g/dL Invalid Interpretation Code 0.4-1.0 [facility] Comment on above: Performed By: #### 1 5348881, 208680686, 26648892, 0525407, 38032788, 7795616 ####[address] [address] Beta globulin Elph [Mass/Vol] 1.2 g/dL Invalid Interpretation Code 0.7-1.3 [facility] Comment on above: Performed By: #### 1 2599814, 607727265, 29117201, 5183608, 22011837, 2807050 ####[address] [address] Gamma globulin Elph [Mass/Vol] 1.7 g/dL Invalid Interpretation Code 0.4-1.8 [facility] Comment on above: Performed By: #### 1 3210470, 126046894, 24652957, 7302700, 13779225, 3394591 ####[address] [place] [address] Globulin (S) [Mass/Vol] 4.2 g/dL High 2.2-3.9 [facility] Comment on above: Performed By: #### 1 6068160, 400366589, 18547992, 9128628, 02548856, 0137902 ####[facility] [address] [place] [address] IgA [Mass/Vol] 552 mg/dL High 87-352 [facility] Comment on above: Performed By: #### 1 3463355, 584860207, 91430395, 8120381, 69740637, 3391061 ####[facility] [address] [place] [address] IgG [Mass/Vol] 1650 mg/dL High 586-1602 [facility] Comment on above: Performed By: #### 1 6169719, 407588441, 29664413, 5646242, 26208754, 3072068 ####[facility] [address] [place] [address] IgM [Mass/Vol] 112 mg/dL Invalid Interpretation Code [facility] Comment on above: Performed By: #### 1 2302248, 117054711, 73248223, 4745933, 05685249, 0921137 ####[facility] [address] [place] [address] Interpretation IEP [Interp] Comment Invalid Interpretation Code [facility] Comment on above: Result Comment: No m onoclonality detected. Performed By: #### 1 8501292, 128140424, 60890056, 8468984, 35119384, 9986258 ####[facility] [address] [place] [address] Laboratory comment Yossi (Report) Comment Invalid Interpretation Code [facility] Comment on above: Result Comment: Prot ein electrophoresis scan will follow via computer, mail, or combination machine tender delivery. Performed at: [facility] [address] [place], [place] [id number] PhD Adelfo Shannon Performed By: #### 1 7612226, 495504535, 27402840, 6078484, 48737098, 2735827 ####[address] [place] [address] Protein [Mass/Vol] 7.8 g/dL Invalid Interpretation Code 6.0-8.5 [facility] Comment on above: Performed By: #### 1 7471354, 122124905, 04797545, 2461108, 72023684, 2392271 ####[facility] [address] [place] [address] Protein.monoclonal Elph [Mass/Vol] Not Observed Invalid Interpretation Code Not Observed [facility] Comment on above: Performed By: #### 1 6402031, 426038270, 66941831, 0604136, 27566575, 4091618 ####[facility] [address] [place] [address] Immunoglobs. A/E/G/Mon 11-25 IgE Qn 21 International_Unit/mL Invalid Interpretation Code 6-495 [facility] Comment on above: Result Comment: Perf ormed at: [facility] [address] [id number] MD José Miguel Shipman Performed By: #### 1 7346316, 807033375, 98970489, 8028914, 37188913, 4422529 ####[facility] [address] [place] [address] CBC w/ Auto Diffon 4 Basophils/100 WBC (Bld) 0.6 % Normal 0.0-2.0 [facility] Comment on above: Performed By: #### 1 3536907, 860939492, 48654575, 4816447, 83293361, 7988728 ####[facility] [address] [place] [address] Basophils/Leukocytes Auto (Bld) [Pure # fraction] 0.0 E9/L Normal 0.0-0.2 [facility] Comment on above: Performed By: #### 1 1199266, 107582256, 66135830, 5346328, 40970122, 0725504 ####[facility] [address] [place] [address] Eosinophils (Bld) [#/Vol] 0.0 E9/L Normal 0.0-0.5 [facility] Comment on above: Performed By: #### 1 8507036, 418059901, 94897908, 8364961, 56032346, 1107426 ####[address] [place] [address] Eosinophils/100 WBC (Bld) 0.9 % Normal 0.0-8.0 [facility] Comment on above: Performed By: #### 1 4065334, 335749587, 52912529, 4887903, 14518414, 8320085 ####[address] [place] [address] Erythrocyte distribution width (RBC) [Ratio] 14.3 % High 10.9-14.2 [facility] Comment on above: Performed By: #### 1 2854335, 671542183, 09435194, 6040608, 67212575, 5898282 ####[address] Hematocrit (Bld) [Volume fraction] 37.7 % Normal 34.0-46.0 [facility] Comment on above: Performed By: #### 1 0278192, 277634304, 49616928, 9508887, 89898536, 8181742 ####[place] Hemoglobin (Bld) [Mass/Vol] 12.2 g/dL Normal 12.0-16.0 [facility] Comment on above: Performed By: #### 1 0080628, 521828341, 94659179, 0138068, 94730304, 3465865 ####[address] Lymphocytes (Bld) [#/Vol] 0.7 E9/L Low 1.0-4.0 [facility] Comment on above: Performed By: #### 1 8941544, 333478740, 91057469, 0783960, 62130933, 3973808 ####[address] [place] [address] Lymphocytes/100 WBC (Bld) 16.0 % Normal 14.0-50.0 [facility] Comment on above: Performed By: #### 1 6737258, 620714562, 64981090, 1594947, 47372427, 6260074 ####[address] [address] MCH (RBC) [Entitic mass] 29.4 pg Normal 27.0-34.0 [facility] Comment on above: Performed By: #### 1 1160364, 005514298, 22595982, 5825589, 28464437, 5685226 ####[address] [address] MCHC (RBC) [Mass/Vol] 32.3 g/dL Normal 31.4-36.0 [facility] Comment on above: Performed By: #### 1 9025756, 902172009, 82741403, 3926318, 82131258, 2919826 ####[address] [address] MCV (RBC) [Entitic vol] 90.9 fL Normal 80.0-100.0 [facility] Comment on above: Performed By: #### 1 1311068, 455825036, 82477339, 5967874, 94632325, 5294189 ####[address] [address] Monocytes (Bld) [#/Vol] 0.6 E9/L Normal 0.2-1.0 [facility] Comment on above: Performed By: #### 1 4665254, 412973982, 75020983, 5210798, 72692897, 9664798 ####[address] [address] Neutrophils (Bld) [#/Vol] 3.2 E9/L Normal 2.0-7.5 [facility] Comment on above: Performed By: #### 1 8510926, 605745604, 46226803, 8054722, 83286952, 7010369 ####[address] [place] [address] Neutrophils/100 WBC (Bld) 68.5 % Normal 36.0-75.0 [facility] Comment on above: Performed By: #### 1 2014976, 729544171, 16305658, 0891983, 03520720, 7509027 ####[address] [place] [address] Platelet 290.0 E9/L Normal 150.0-500. 0 [facility] Comment on above: Performed By: #### 1 8671625, 099335902, 38944379, 7165678, 11766858, 8608058 ####[address] [address] Platelet mean volume (Bld) [Entitic vol] 6.9 fL Normal 6.4-10.8 [facility] Comment on above: Performed By: #### 1 2773387, 263627579, 88594625, 3579090, 90169121, 1395498 ####[address] [address] RBC (Bld) [#/Vol] 4.2 E12/L Low 4.3-5.9 [facility] Comment on above: Performed By: #### 1 0282509, 722259123, 12934348, 0685462, 94731287, 3824050 ####[address] [place] [address] WBC corrected for nucl RBC Auto (Bld) [#/Vol] 4.6 E9/L Normal 4.0-11.0 [facility] Comment on above: Performed By: #### 1 9004846, 380242427, 79766958, 3017530, 76693895, 6762312 ####[address] [address] CHEMISTRYOrdered By: SYSTEM SYSTEM on 11-20-2023 Albumin [Mass/Vol] 4.1 g/dL Normal 3.3 - 5.0 gm/dL Remisol Chem Albumin/Globulin [Mass ratio] 1.0 {ratio} Low 1.1 - 2.2 Rem[facility] Chem ALP [Catalytic activity/Vol] 52 [iU]/d Normal 21 - 98 Int._Unit/ L Remisol Chem ALT No additional P-5'-P [Catalytic activity/Vol] 13 [iU]/d Normal 6 - 46 Int._Unit/ L Remisol Chem Anion gap [Moles/Vol] 11 mmol/L Normal 6 - 16 mEq/L Remisol Chem AST [Catalytic activity/Vol] 19 [iU]/d Normal 5 - 43 Int._Unit/ L Rem[facility] Chem Bilirubin [Mass/Vol] 0.6 mg/dL Normal [...] Chem eGFR 100 mL/min/1.73 m2 Normal >=59mL/mi n /1.73 m2 Remisol Chem Globulin (S) [Mass/Vol] 4.0 [...] 11-20-2023 Albumin [Mass/Vol] 4.1 g/dL Normal 3.3-5.0 [facility] Comment on above: Performed By: #### 1 4594811, 360355461, 45502836, 9197124, 24328859, 4497595 ####[facility] [address] [place] [address] Albumin/Globulin (S) [Mass conc ratio] 1.0 Low 1.1-2.2 [facility] Comment on above: Performed By: #### 1 4608264, 831842584, 17837394, 3023630, 77326455, 9400891 ####[facility] [address] [place] [address] ALP [Catalytic activity/Vol] 52 Int._Unit/L Normal 21-98 [facility] Comment on above: Performed By: #### 1 1473531, 668016490, 25349770, 9462869, 15348862, 8827851 ####[facility] [address] [place] [address] ALT No additional P-5'-P [Catalytic activity/Vol] 13 Int._Unit/L Normal 6-46 [facility] Comment on above: Performed By: #### 1 3356456, 312285419, 65755580, 0020060, 47626427, 6021662 ####[facility] [address] [place] [address] Anion gap [Moles/Vol] 11 mmol/L Normal 6-16 [facility] Comment on above: Performed By: #### 1 9945264, 332444826, 74583720, 8313113, 34655148, 1695899 ####[facility] [address] [place] [address] AST [Catalytic activity/Vol] 19 Int._Unit/L Normal 5-43 [facility] Comment on above: Performed By: #### 1 3577788, 043514196, 00234194, 0701722, 47673597, 6840519 ####[facility] [address] [place] [address] Bilirubin [Mass/Vol] 0.6 mg/dL Normal 0.0-1.1 [facility] Comment on above: Performed By: #### 1 8252309, 785595497, 51088483, 3662169, 65698549, 7512145 ####[facility] [address] [place] [address] Calcium [Mass/Vol] 9.4 mg/dL Normal 8.9-11.1 [facility] Comment on above: Performed By: #### 1 1112559, 190264422, 81057586, 5193894, 29645188, 4997911 ####[facility] [address] [place] [address] Chloride [Moles/Vol] 103 mmol/L Normal 101-111 [facility] Comment on above: Performed By: #### 1 9141906, 497845445, 65764498, 1219969, 39649639, 9421690 ####[facility] [address] [place] [address] CO2 [Moles/Vol] 28 mmol/L Normal 21-31 [facility] Comment on above: Performed By: #### 1 0706616, 955912429, 34211135, 1202038, 05541607, 4096709 ####[facility] [address] [place] [address] Creatinine [Mass/Vol] 0.6 mg/dL Normal 0.5-1.3 [facility] Comment on above: Performed By: #### 1 4136234, 820163172, 91770141, 8145205, 21684432, 5230304 ####[facility] [address] [place] [address] Globulin (S) [Mass/Vol] 4.0 g/dL Normal 1.4-4.0 [facility] Comment on above: Performed By: #### 1 0633967, 601844224, 39928767, 8313075, 81274407, 0377182 ####[facility] [address] [place] [address] Glucose [Mass/Vol] 84 mg/dL Normal 55-199 [facility] Comment on above: Performed By: #### 1 9524233, 367364710, 68811735, 1181668, 79580008, 5135510 ####[facility] [address] [place] [address] Potassium [Moles/Vol] 4.2 mmol/L Normal 3.5-5.3 [facility] Comment on above: Performed By: #### 1 7859344, 199057605, 67544532, 4925710, 20871289, 2487151 ####[facility] [address] [place] [address] Protein [Mass/Vol] 8.1 g/dL High 6.0-7.8 [facility] Comment on above: Performed By: #### 1 3526795, 866886606, 98009446, 6005088, 82569392, 9382495 ####[facility] [address] [place] [address] Sodium [Moles/Vol] 138 mmol/L Normal 135-145 [facility] Comment on above: Performed By: #### 1 3400089, 587744351, 48086487, 3300637, 92184247, 5908257 ####[facility] [address] [place] [address] Urea nitrogen [Mass/Vol] 17 mg/dL Normal 5-21 [facility] Comment on above: Performed By: #### 1 0835460, 835972465, 46304668, 1311087, 89923415, 8101928 ####[facility] [address] [place] [address] Urea nitrogen/Creatinine [Mass ratio] 28 No Units High 10-20 [facility] Comment on above: Performed By: #### 1 5748268, 106998810, 24534714, 7940553, 92437039, 6235780 ####[facility] [address] [place] [address] Consent for Treatmenton Consent for Treatment [id number]#1.00TIFF Normal [facility] HEMATOLOGYOrdered By: SYSTEM SYSTEM on 11-20-2023 [...] 11-20-2023 eGFR 100 mL/min/1.73 m2 Normal >=59 [facility] Comment on above: Order Comment: Order added by Discern Expert. Performed By: #### 1 5617792, 912203862, 32372372, 2625149, 29424287, 1364712 ####[facility] [address] [place] [address] General Surgery Office/Clini c Noteon 11-14-2023 General Surgery Office/Clinic Note Chief Complaint 3 month follow up HPI Staff Emeli is a 62 y.o. female here for 3 month follow up Hx of left breast cancer s/p Spray Node biopsy of left done 04/11/2023 Denies [...] with voice recognition artificial intelligence software, specifically Apartment List, WhatSalon and or Statzup. Substitutions may have occurred due to the inherent limitations of voice recognition and artificial intelligence software. ATTESTATION: Documentation services were performed after patient or guardian consented to allow [facility] to record this visit. SANTA station air traffic control specialist and provider reviewed before signing. [place]: [...] 50,000 intl units (1.25 mg) oral capsule, [address] International_Unit= 1 cap(s), Oral, qWeek Allergies No [...] Recorded diphthe (more content not included)... Normal [facility] Comment on above: Result Comment: Elec tronically Signed By: Lauro Simon MD.br\Date and Time Signed: 11/14/23 08:56 EDT\.br\Electronically Co-Signed By: Lashay Smith.br\Date and Time Co-Signed: 11/06/23 16:21 EDT Ambulatory [...] PM EDT With: Lauro Simon MD Where: [facility] General Surgery [place] Normal [facility] Insurance Correspondenceon 0 09-25-2023 Insurance Correspondence [id number]#1.00TIFF [facility] Consent for Treatmenton 08-17 Consent for Treatment [id number]#1.00TIFF [facility] ED Pat Eduon 09-04-2023 ED Pat Edu Nephrology Protein Blood Test Why am I [...] including vitamins, herbs, eye drops, creams, and cggy-ztq-kohcegu medicines. ? Any medical conditions you have. [...] 4.2?7.6 g/dL. ? : 4.6?7.4 g/dL. ? : 6?6.7 g/dL. ? [...] provider. Document Revised: 03/26/2021 Document Reviewed: 03/26/2021 [employer] Patient Education ? 2022 [employer]. Normal [facility] Oncology Progress Noteon Oncology Progress Note Chief Complaint Breast CA Pt has no major ques/concerns for doc today. Diagnoses 1. Breast cancer, left (C50.912: Malignant neoplasm of unspecified site of left female breast) Oncological History/ROS/PE/Assessment and Plan Chief Complaint Left breast invasive [...] disease. Her tumor was discussed at the [facility] tumor board patient is to obtain Oncotype [...] Lumpectomy with wire-guided localization LYMPH NODE SAMPLING: Spray lymph node(s) SPECIMEN INTEGRITY: multiple specimens (A [...] score of (more content not included)... Normal [facility] Outside Oncologyon 4 Outside Oncology [id number]#1.00TIFF Normal [facility] CHEMISTRYOrdered By: SYSTEM SYSTEM on 09-01-2023 Albumin [Mass/Vol] 4.0 g/dL Normal 3.3 - 5.0 gm/dL Remisol Chem Albumin/Globulin [Mass ratio] 0.9 {ratio} Low 1.1 - 2.2 [facility] Chem Alk Phos 67 [iU]/d Normal 21 - 98 Int._Unit/ L Remisol Chem ALT 11 [iU]/d Normal 6 - 46 Int._Unit/ L Remisol Chem AST 18 [iU]/d Normal 5 - 43 Int._Unit/ L Remisol Chem Bili Direct 0.1 mg/dL Normal [...] for Treatmenton 08-17 Consent for Treatment [id number]#1.00TIFF Normal [facility] Hep Func Panelon 09-01-2023 Albumin [Mass/Vol] 4.0 g/dL Normal 3.3-5.0 [facility] Comment on above: Performed By: #### 2 170392 #### [facility] [address] [place] [address] Albumin/Globulin [Mass ratio] 0.9 {ratio} Low 1.1-2.2 [facility] Comment on above: Performed By: #### 2 766216 #### [facility] [address] [place] [address] Alk Phos 67 Int._Unit/L Normal - [facility] Comment on above: Performed By: #### 2 465832 #### [facility] [address] [place] [address] ALT 11 Int._Unit/L Normal - [facility] Comment on above: Performed By: #### 2 801617 #### [facility] [address] [place] [address] AST 18 Int._Unit/L Normal - [facility] Comment on above: Performed By: #### 2 083627 #### [facility] [address] [place] [address] Bili Direct 0.1 mg/dL Normal 0.0-0.4 [facility] Comment on above: Performed By: #### 2 711548 #### [facility] [address] [place] [address] Bili Indirect 0.4 mg/dL Normal 0.1-0.9 [facility] Comment on above: Performed By: #### 2 400516 #### [facility] [address] [place] [address] Bili Total 0.5 mg/dL Normal 0.0-1.1 [facility] Comment on above: Performed By: #### 2 840880 #### [facility] [address] [place] [address] Globulin (S) [Mass/Vol] 4.6 g/dL High 1.4-4.0 [facility] Comment on above: Performed By: #### 2 252455 #### [facility] [address] [place] [address] Protein [Mass/Vol] 8.6 g/dL High 6.0-7.8 [facility] Comment on above: Performed By: #### 2 007765 #### [facility] [address] [place] [address] Ambulatory Visit Summaryon 0 08-07-2023 Ambulatory Visit Summary ZANDRACONOR HODGEJOSELINE Calvert :1960 Visit Date:08/07/2023 Ambulatory Visit Instructions Your [...] Where: Oncology Monday 3:00 PM EDT With: Aurora RICE, Lauro Toro Where: [facility] General Surgery [place] Normal [facility] General Surgery Office/Clini c Noteon 08-07-2023 General Surgery Office/Clinic Note Chief Complaint 3 month follow up HPI Staff Emeli is a 62 y.o. female here for 3 month follow up Hx of left breast cancer s/p Spray Node biopsy of left done 04/11/2023 denies [...] by medical oncology, completed radiation therapy at [facility] here today for breast cancer surveillance [...] E&M of Est. Patient Low 20-29 Min 00047 2. Encounter for follow-up surveillance of breast cancer (Z08: Encounter for follow-up examination after completed treatment for malignant neoplasm) As above Ordered: E&M of Est. Patient Low 20-29 Min [address]1091 Portions of this record may have been created with voice recognition artificial intelligence software, specifically Apartment List, WhatSalon and or Statzup. Substitutions may have occurred due to the [...] 50,000 intl units (1.25 mg) oral capsule, [address] International_Unit= 1 cap(s), Oral, qWeek Allergies No [...] virus vaccine, inactivated 07/14/2014 Recorded Normal [facility] Comment on above: Result Comment: Elec tronically Signed By: Aurora RICE, Lauro Peacock\Date and Time Signed: 08/07/23 16:29 EST BD Bone Density DEXAon 06-01 BD Bone Density DEXA Exam Date/Time: 05/30/2023 14:43 EST Reason for Exam: M85.88;[facility] medication use Report IMPRESSION: OSTEOPENIA. The 10 [...] DEXA DATE: 05/30/2023 2:21 PM CLINICAL HISTORY: [facility] medication use, M85.88. COMPARISON: None available. COMMENTS: [...] Dale MD Transcribed by: MEAGAN Technologist: VINCE [facility] Operative Reporton 3 Operative Report [id number]#1.00TIFF [facility] Consent for Treatmenton 05-17 Consent for Treatment [id number]#1.00TIFF [facility] Outside Progress Noteon 05-17 Outside Progress Note [id number]#1.00TIFF [facility] 29on 05-25-2023 29 Encounter addended b y: Alana Mendez on: 05/25/2023 4:02 PM Actions taken: Letter saved Normal [facility] 80on 05-25-2023 80 Normal [facility] Orders Onlyon 05-24-2023 Orders Only [id number] Conor Kaufman Nehal 1960 F Date Provider Department Center 05/24/2023 743-OSITO RODAS [facility] RAD ONC [facility] No family history on file [facility] CHEMISTRYOrdered By: SYSTEM SYSTEM on 05-22-2023 Albumin [Mass/Vol] 3.5 g/dL Normal 3.3 - 5.0 gm/dL [facility] Remisol Albumin/Globulin [Mass ratio] 0.8 {ratio} Low 1.1 - 2.2 [facility] Remisol ALP [Catalytic activity/Vol] 65 [iU]/d Normal 21 - 98 Int._Unit/ L [facility] Remisol ALT No additional P-5'-P [Catalytic activity/Vol] 13 [iU]/d Normal 6 - 46 Int._Unit/ L [facility] Remisol AST [Catalytic activity/Vol] 20 [iU]/d Normal 5 - 43 Int._Unit/ L [facility] Remisol Bilirubin [Mass/Vol] 0.3 mg/dL Normal [...] Consent for Treatmenton Consent for Treatment [id number]#1.00TIFF [facility] Consent for Treatment [id number]#1.00TIFF [facility] Hep Func Panelon 05-22-2023 Bilirubin.indirect [Mass or moles/Vol] UTC Abnormal 0.1-0.9 [facility] Comment on above: Result Comment: Resu lt verified by Discern Rule. Performed result UTC (Unable to Calculate) was sent as an Alpha code due the inability to calculate a valid numeric value. Performed By: #### 2 244787 #### [facility] [address] [place] [address] Albumin [Mass/Vol] 3.5 g/dL Normal 3.3-5.0 [facility] Comment on above: Performed By: #### 2 683715 #### [facility] [address] [place] [address] Albumin/Globulin (S) [Mass conc ratio] 0.8 Low 1.1-2.2 [facility] Comment on above: Performed By: #### 2 654368 #### [facility] [address] [place] [address] ALP [Catalytic activity/Vol] 65 Int._Unit/L Normal 21-98 [facility] Comment on above: Performed By: #### 2 543485 #### [facility] [address] [place] [address] ALT No additional P-5'-P [Catalytic activity/Vol] 13 Int._Unit/L Normal 6-46 [facility] Comment on above: Performed By: #### 2 017431 #### [facility] Laboratory [address] [place] [address] AST [Catalytic activity/Vol] 20 Int._Unit/L Normal 5-43 [facility] Comment on above: Performed By: #### 2 [id number] #### [facility] [address] [place] [address] Bilirubin [Mass/Vol] 0.3 mg/dL Normal 0.0-1.1 [facility] Comment on above: Performed By: #### 2 [id number] #### [facility] [address] [place] [address] Globulin (S) [Mass/Vol] 4.5 g/dL High 1.4-4.0 [facility] Comment on above: Performed By: #### 2 [id number] #### [facility] [address] [place] [address] Protein [Mass/Vol] 8.0 g/dL High 6.0-7.8 [facility] Comment on above: Performed By: #### 2 [id number] #### [facility] [address] [place] [address] Bilirubin.direct [Mass/Vol] mg/dL Normal 0.1-0.4 [facility] Comment on above: Performed By: #### 2 [id number] #### [facility] [address] [place] [address] Oncology Noteon 05-22-2023 Oncology Note Oncology Care Coordi nator Office Visit/Treatment Note Current Patient Status/Reason: Pt in with family member for scheduled clinic visit after diagnosis of breast cancer. I accompanied Dr. Narayan in room. explained Oncotype Dx findings, with understanding voiced. Pt has appt with [facility] radiation oncologist on 05/25. explained aromatase inhibitor to start 1 week after finishing radiation. Treatment Plan: [facility] radiation of breast. LFT, now [...] central scheduling dept. Pt voiced understanding. Normal [facility] Comment on above: Result Comment: Elec [...] disease. Her tumor was discussed at the [facility] tumor board patient is to obtain Oncotype [...] Lumpectomy with wire-guided localization LYMPH NODE SAMPLING: Spray lymph node(s) SPECIMEN INTEGRITY: multiple specimens (A [...] invasive tumor cells, performed on previous biopsy (6576), please refer to previous report for details PROGESTERONE RECEPTOR: 20-30% of invasive tumor cells, performed on previous biopsy (710), please refer to previous report for details Ki-67 INDEX OF INVASIVE TUMOR CELLS: Approximately 1% of invasive tumor cells, performed on previous biopsy (9210), please refer to previous report for details HER2/ELIF STUDIES: 1+ (IHC), performed on previous biopsy (008), please refer to previous report for details [...] adjuvant treatment. She is scheduled to see [facility] on 05/25/23 for adjuvant radiation to her left breast. Her Oncotype DX screen came back only 17 with Recurrent score of 15% only at 7 years and no clear benefit from adding chemo to adjuvant endocrine (more content not included)... Normal [facility] Patient Educationon 05-22-20 Patient Education Normal [facility] Lab Reportson 05-12-2023 Lab Reports [id number]#1.00TIFF Normal [facility] Reference Lab Reporton 05-09 Reference Lab Report [id number]#1.00TIFF Normal [facility] Consenton 05-03-2023 Consent [id number]#1.00TIFF Normal [facility] ONC - Otheron 05-03-2023 ONC - Other [id number]#1.00TIFF Normal [facility] General Surgery Office/Clini c Noteon 05-02-2023 [...] with voice recognition artificial intelligence software, specifically Apartment [employer], What[employer]on and or Statzup. Substitutions may have occurred voice recognition and artificial intelligence software. Documentation services were performed after patient or guardian consented to allow [facility] to record this visit. SANTA station air traffic control specialist and provider reviewed before signing. SANTA: [...] 50,000 intl units (1.25 mg) oral capsule, 19127 International_Unit= 1 cap(s), Oral, qWeek Allergies No [...] No results were obtained or interrupted today. [facility] Comment on above: Result Comment: Elec tronically Signed By: Lauro Simon MD\.br\Date and Time Signed: 05/02/23 08:37 EDT\.br\Electronically Co-Signed By: Scarlet Neal\.br\Date and Time Co-Signed: 05/01/23 14:47 EDT\.br\Electronically Co-Signed By: Scarlet Neal\.br\Date and Time Co-Signed: 05/01/23 14:52 EDT Consent for Treatmenton 04-16 Consent for Treatment [id number]#1.00TIFF [facility] Oncology Noteon 05-01-2023 Oncology Note Oncology Care Coordi nator Office Visit/Treatment Note Current Patient Status/Reason: Patient here with spouse for scheduled Initial Clinic Visit. I accompanied Dr. Narayan in room. Patient informs of left breast cancer - ER/[place] positive. Patient has positive Lymph node. Medical history reviewed. Disease process and treatment options reviewed. Treatment Plan: Oncotype DX(per Teri/Dr. Simon's office will send), refer to Radiation-[facility] per patient's request Follow-Up Appointment Info/Referrals: 3 weeks Resources Offered: Distress thermometer of 4 discussed - no needs at this time. Distress thermometer emailed to social services coordinator. Contact information provided to patient. [facility] Comment on above: Result Comment: Elec [...] disease. Her tumor was discussed at the [facility] tumor board patient is to obtain Oncotype [...] Lumpectomy with wire-guided localization LYMPH NODE SAMPLING: Spray lymph node(s) SPECIMEN INTEGRITY: multiple specimens (A [...] invasive tumor cells, performed on previous biopsy ([id number]), please refer to previous report for details [...] BREAST, EXCISION: ? METASTATIC LYMPH NODES IDENTIFIED (/). Recovering from her surgery and she is seeing Dr. Montano again today. She denies any chest pain or shortness of breath. She never had bone density scan. Is not currently on hormone replacement therapy. Review of Systems Constitutional: Negative. Eye: Negative. Ear/Nose/Mouth/Throat: Negative. Respiratory: Negative. Cardiovascular: Negative. Gastrointestinal: Negative. Genitourinary: Negative. Hematology/Lymphatics: Negative. Immunologic: Negative. Musculoskeletal: Negative. Integumentary: Negative. Ne (more content not included)... Normal [facility] Ambulatory Visit Summaryon 1 Ambulatory Visit Summary EMELI KAUFMAN :1960 Visit Date:04/21/2023 Ambulatory Visit Instructions Your Diagnosis Breast cancer, left Your Care Team Attending Physician - Aurora [...] EDT With: Aurora RICE, Lauro Toro Where: [facility] General Surgery [place] Normal [facility] General Surgery Office/Clini c Noteon 04-21-2023 [...] patient is listed for tumor board. Ordered: [facility] Internal Ambulatory Referral Postoperative follow-up visit, related to the original procedure 37618 Follow-up No qualifying data available Problem List/Past [...] 50,000 intl units (1.25 mg) oral capsule, 92383 International_Unit= 1 cap(s), Oral, qWeek Allergies No [...] influenza virus vaccine, inactivated 07/14/2014 Recorded Normal [facility] Comment on above: Result Comment: Elec tronically Signed By: Aurora RICE, Lauro Toro\.br\Date and Time Signed: 04/21/23 09:12 EDT IntraOperative Documentson 1 IntraOperative Documents [id number]#1.00CD:127 Normal [facility] Main OR Intraoperative Recor don 04-13-2023 Main OR Intraoperative Record IntraOp Document Type FT Summary Primary Physician: Lauro Simon MD Finalized Date/Time: 04/13/23 13:34:41 Pt. Name: EMELI KAUFMAN/Sex: 1960 Female Med Rec #: [id number] Physician: Lauro Simon MD Financial #: [id number] Pt. Type: A Room/Bed: [facility]/ Admit/Disch: 04/11/23 08:40:14 - 04/11/23 15:30:00 Institution: [...] Attendee Aurora RICE, Lauro GARDNER, Brissa Doyle Role Performed Surgeon - Primary Anesthesiologist Scrub - Primary Sticker Operator Time In 04/11/23 11:45:00 04/11/23 11:25:00 04/11/23 11:25:00 Time Out 04/11/23 12:58:00 04/11/23 13:19:00 04/11/23 13:01:00 Procedure BREAST BIOPSY(Left), BREAST BIOPSY(Left), BREAST BIOPSY(Left), SENTINEL NODE SENTINEL NODE SENTINEL NODE BIOPSY(Left) BIOPSY(Left) BIOPSY(Left) Comments Dr. Hanson supervising Last Modified By: Teresa Minor RN, RN, Sheminith A Cantal RN, Sheminith A 04/11/23 13:19:26 04/11/23 13:19:26 04/11/23 13:19:26 Entry 4 Entry 5 Entry 6 Case Attendee Iván CRAMER, Darrel Guadalupe RN, Olivia A Role Performed Hand Assembler - Primary CYLINDER MACHINE OPERATOR PULP DRIER/SA Hand Assembler - Relief Time In 04/11/23 11:25:00 04/11/23 11:25:00 04/11/23 11:50:00 Time Out 04/11/23 13:19:00 04/11/23 13:19:00 04/11/23 12:35:00 Procedure BREAST BIOPSY(Left), BREAST BIOPSY(Left), BREAST BIOPSY(Left), SENTINEL NODE SENTINEL NODE SENTINEL NODE BIOPSY(Left) BIOPSY(Left) BIOPSY(Left) Comments Out of room for lunch [phone] Last Modified By: Teresa Minor RN RN, Teresa Mcdowell RN 04/11/23 13:19:26 04/11/23 13:19:26 04/11/23 13:19:26 Perioperative Protocols FT Pre-Care Text: Implements protective [...] Yes Time Out Lauro Oates, Given Participants Lauro Simon MD, Iván CRAMER, Michele Pugh James W, Chaput, Madison A, Saflund RN, Kayla Alatorre Time Out Complete 04/11/23 11:50:00 [...] Yes No Primary Surgeon Aurora RICE, Lauro Rodriguez MD Start 04/11/23 11:52:00 04/11/23 11:52:00 Stop 04/11/23 13:14:00 04/11/23 13:14:00 Anesthesia Type General General Surgical Service General General Wound Class 1 - Clean 1 - Clean Last Modified By: Teresa Minor RN, RN, Teresa Alatorre 04/11/23 13:16:52 04/11/23 13:16:52 General Case Data [...] signs and sympto (more content not included)... [facility] Postoperative Documentson Postoperative Documents [id number]#1.00CD:127 [facility] Progress Note-Physicianon Progress Note-Physician Patient: EMELI KAUFMAN Age: 62 years Sex: Female : 1960 Associated Diagnoses: None Author: MD Valentin, Chloe Arechiga Postoperative Information Postoperative disposition: Postoperative disposition: To PACU. Optimetrix number: Optimetrix number [id number]. Anesthetic utilized: General. Health Status Allergies: Allergic [...] when meets criteria ( To home ). [facility] Comment on above: Result Comment: Elec tronically Signed By: MD Hanson Ahmad F\.br\Date and Time Signed: 04/13/23 09:56 EDT Progress Note-Physician Patient: EMELI KAUFMAN Age: 62 years Sex: Female : 1960 Associated Diagnoses: None Author: MD Valentin, Chloe Arechiga Preoperative Information Time patient last ate or drank:=== (npo 8 hours) Anesthesia history: Patient history: No prior anesthesia problems. Re-evaluation prior to induction: Completed, Initial evaluation reviewed. Review of Systems Respiratory: No shortness of breath. Cardiovascular: No chest pain. Hematology/Lymphatics: No bruising tendency, No bleeding tendency. Health Status Allergies: Allergic Reactions (All) No Known Medication Allergies Current medications: (Selected) Prescriptions Prescribed [place] 325 mg-5 mg oral tablet: 1 tab(s), Oral, q6hr as needed for pain, 12 tab(s), Refill(s) 0, [facility], 165, cm, 03/01/23 11:22:00 EDT, Height/Length [...] Frequent episodes of pneumonia / SNOMED CT 371988398 / Confirmed Multiple sclerosis / SNOMED CT 49087951 / Confirmed Abnormal mammogram of left breast / SNOMED CT 231980242 / Confirmed Breast cancer, left / SNOMED CT 030296381 / Confirmed BMI 22.0-22.9, adult / SNOMED CT 4048497864 / Confirmed Personal history of bronchiectasis / SNOMED CT 413033441 / Confirmed Inactive: EVAN (mycobacterium avium-intracellulare) / SNOMED CT 8739317877 Resolved: Bronchiectasis / SNOMED CT 67565980 Histories Past Medical History: Resolved Bronchiectasis (34055624): Resolved. Family History: Procedure history: Biopsy of lymph node in left breast (11349712) on 04/11/2023 at 62 Years. Bronchoscopy (48506630) on 06/16/2021 at 60 Years. section (01682312). Biopsy of breast - left (876524877). Social History Social & Psychosocial Habits Alcohol [...] results Radiology results ECG interpretation Condition Plan [place] [employer] Anesthesiologists (ASA) physical status classification: Class II. Anesthetic Preoperative Plan Anesthesia: General. . Anesthetic plan, risks, benefits, and alternatives discussed with the patient and/or family. Risks discussed: nausea, vomiting, headache, sore throat, dental injury, serious complications. Patient verbalized understanding. Communication: face to face with patient 5 minutes. [facility] Comment on above: Result Comment: Elec tronically Signed By: MD Valentin, Chloe Arechiga\.marianela\Date and Time Signed: 04/13/23 09:54 EDT Consent for Anesthesiaon Consent for Anesthesia [id number]#1.00CD:127 [facility] Discharge Instructionson Discharge Instructions [id number]#1.00CD:127 [facility] IntraOperative Documentson 0 04-12-2023 IntraOperative Documents [id number]#1.00CD:127 [facility] IntraOperative Documents [id number]#1.00CD:127 [facility] Preoperative Documentson Preoperative Documents [id number]#1.00CD:127 Normal [facility] Provider Letteron 04-12-2023 Provider Letter (Inserted Image. Frances ble to display) April 12, 2023 EMELI [place] [address] [place] [address] : 1960 To Whom It May Concern, Please excuse above patient from work. Date of Illness: From: 04/11/2023 To: 04/14/2023 May Return to Work On: 04/17/2023 Restrictions: None Comments: _ Sincerely, Lauro Simon MD [facility] General Surgery work excuse emailed to per patient request. [facility] Consent for Procedure/Surger yon 04-11-2023 Consent for Procedure/Surgery [id number]#1.00CD:127 Normal [facility] Consent for Treatmenton 03-18 Consent for Treatment [id number]#1.00CD:127 [facility] Discharge Instructionson Discharge Instructions EMELI KAUFMAN :1960 Visit Date:04/11/2023 Inpatient Discharge Instructions Your Care Team Admitting Physician - Lauro Simon MD Consulting Physician - Tee Lobato M.D. Referring Physician - Lauro Simon MD Reason for Your Visit C50.912 This Is Your Medications List acetaminophen-hydrocodone ([place] 325 mg-5 mg oral tablet) ergocalciferol (Vitamin [...] Mammography Monday 10:30 AM EDT With: Where: Nuclear Medicine Monday 8:40 AM EDT With: Lauro Simon MD Where: [facility] General Surgery [facility] Comment on above: Result Comment: Elec tronically Signed By: Madi CRAMER, Rio Olson\.br\Date and Time Signed: 04/11/23 13:59 EDT H&P Updateon 04-11-2023 H&P Update [id number]#1.00CD:127 Normal [facility] Inpatient Patient Summaryon 04-11-2023 Inpatient Patient Summary [place] [id number] [facility] Clinical Discharge Instructions PERSON INFORMATION Name: EMELI KAUFMAN PHYSICIANS Admitting Physician: Lauro Simon MD Attending Physician: Lauro Simon MD PCP: Brianna Yanez MD Discharge Diagnosis: Comment: PATIENT EDUCATION INFORMATION Instructions: Lumpectomy, Care After Medication Leaflets: Follow up: With: Address: When: Lauro Simon [address] [place] [address], [place] [address], [place] [address] [phone] Business (1) Comments: Appointment has already been scheduled Type Location Start [facility] Needle Loc (FT) FT.MAMMOGRAM 04/11/2023 9:00 AM 04/11/2023 9:45 AM Confirmed NM Lymphoscintigraphy (FT) FT.NUCLEAR MED 04/11/2023 10:30 AM 04/11/2023 12:00 PM Confirmed GS Post Op 15 [facility] GS Pelon 04/21/2023 8:40 AM 04/21/2023 9:00 AM Confirmed MEDICATION LIST New Medications [facility], [address] [place], [place] [id number], [phone] acetaminophen-hydrocodone ([place] 325 mg-5 mg oral tablet) 1 Tablets [...] 1 dose Inhalation every day., bronchiectasis Comment: [facility] Breast Needle Loc w/ Guid Jimmie el 04-11-2023 [place] Breast Needle Loc w/ Guidance, Left Exam [...] Tee Lobato M.D. Transcribed by: MEAGAN Technologist: [facility] Surgical Specimen Lefton 04-11-2023 [place] Surgical Specimen [...] Tee Lobato M.D. Transcribed by: MEAGAN Technologist: [facility] Main OR PACU I Recordon 03-18 Main OR PACU I Record PACU Phase I Docum ent Type FT Summary Primary Physician: Lauro Simon MD Finalized Date/Time: 04/11/23 14:30:12 Pt. Name: EMELI KAUFMAN/Sex: 1960 Female Med Rec #: [id number] Physician: Lauro Simon MD Financial #: [id number] Pt. Type: A Room/Bed: [place] [address] Admit/Disch: 04/11/23 08:40:14 - Institution: Case Times [...] Signed By: Magalys Wiggins RN 04/11/23 14:30 [facility] Main OR PACU II Recordon Main OR PACU II Record PACU Phase II Doc ument Type FT Summary Primary Physician: Lauro Simon MD Finalized Date/Time: 04/11/23 15:52:51 Pt. Name: EMELI KAUFMAN/Sex: 1960 Female Med Rec #: [id number] Physician: Lauro Simon MD Financial #: [id number] Pt. Type: A Room/Bed: [facility]09/14 Admit/Disch: 04/11/23 08:40:14 - Institution: Case Times [...] By: Rio Barraza RN 04/11/23 15:52 Normal [facility] Main OR Preoperative Recordo n 04-11-2023 Main OR Preoperative Record PreOp Document Type FT Summary Primary Physician: Lauro Simon MD Finalized Date/Time: 04/11/23 11:39:26 Pt. Name: EMELI KAUFMANO.B./Sex: 1960 Female Med Rec #: [id number] Physician: Lauro Simon MD Financial #: [id number] Pt. Type: A Room/Bed: [facility]3 Admit/Disch: 04/11/23 08:40:14 - Institution: Case Times [...] 11:39 Teresa Minor RN 04/11/23 11:39 Normal [facility] Monitor Recordon 04-11-2023 Monitor Record [id number]#1.00CD:127 Normal [facility] Monitor Record [id number]#1.00CD:127 Normal [facility] NM Lymphoscintigraphyon 03-18 NM Lymphoscintigraphy Exam [...] Comments Dose (mCi Tc99m Lymphoseek): 593 Normal [facility] Outpatient Surgery Discharge Instructionon 04-11-2023 Outpatient Surgery Discharge Instruction [place] [id number] Patient Discharge Instructions PERSON INFORMATION Name: EMELI [...] THE NEAREST EMERGENCY ROOM OR CALL 911 I, EMELI KAUFMAN, have received the attached patient education materials/instructions and have verbalized understanding: May we do a follow up call? Yes No I was present when discharge instructions were given ___ Patient Signature Date Clinican/Nurse Signature Date Follow up: With: Address: When: Lauro Simon [address] [place], [place] [address]yana [address], [facility] [address], [facility] [address] [place] [phone] Business (1) Comments: Appointment has already been scheduled Type Location Start [place] Needle Loc (FT) FT.MAMMOGRAM 04/11/2023 9:00 AM 04/11/2023 9:45 AM Confirmed NM Lymphoscintigraphy (FT) FT.NUCLEAR MED 04/11/2023 10:30 AM 04/11/2023 12:00 PM Confirmed GS Post Op 15 [facility] GS [place] 04/21/2023 8:40 AM 04/21/2023 9:00 AM Confirmed Pharmacy Information: You may receive a survey from [employer] asking you to rate your care experience. Your feedback is important and will help us understand what we do well and how we can improve the quality of care we provide to you, your loved ones and our community. It?s an honor to serve you. Thank you for choosing [facility] HERE ARE THE MEDICATION CHANGES THAT OCCURRED DURING YOUR HOSPITAL STAY New Medications [facility], [address] [place] [id number], [phone] acetaminophen-hydrocodone ([place] 325 mg-5 mg oral tablet) 1 Tablets [...] these instructions at home: Medicines ? Take rffd-epf-wrrfjij and prescription medicines only as told by [...] keep your urine pale yellow. ? Take nkui-wxi-bwkphar or prescription medicines. ? Eat foods that are high in fiber, such as beans, whole grains, and fresh fruits and vegetables. ? Limit foods that are high in fat and processed sugars, such as fried or sweet foods. Incision care ? Follow instructio (more content not included)... Normal [facility] Patient Education - Texton 0 04-11-2023 [...] these instructions at home: Medicines ? Take ncot-oxg-ukpnjma and prescription medicines only as told by [...] keep your urine pale yellow. ? Take aeyp-nwb-gzkrkjg or prescription medicines. ? Eat foods that [...] and water are not available, use hand loop puller. ? Change your dressing as told by [...] ? Pus (more content not included)... [facility] RAD - Consent to Procedureon 04-11-2023 RAD - Consent to Procedure [id number]#1.00CD:127 Normal [facility] Consultation Noteon 04-06-20 Consultation Note [id number]#1.00CD:127 Normal [facility] Consultation Noteon 03-31-20 Consultation Note [id number]#1.00CD:127 Normal [facility] Operative Reporton Operative Report [id number]#1.00CD:127 Normal [facility] RAD - CT Reporton 03-31-[address] - [address] Report [id number]#1.00CD:127 Normal [facility] Insurance Correspondenceon 0 03-15-2023 Insurance Correspondence [id number]#1.00CD:127 Normal [facility] CHEMISTRYOrdered By: SYSTEM SYSTEM on 02-22-2023 Anion gap [Moles/Vol] 11 mmol/L Normal 6 - 16 mEq/L [facility] Remisol Chloride [Moles/Vol] 105 mmol/L Normal 101 - 1 11 mmol/L [facility] Remisol CO2 [Moles/Vol] 26 mmol/L Normal 21 - 31 mmol/L [facility] Remisol Creatinine [Mass/Vol] 0.7 mg/dL Normal 0.5 - 1.3 mg/dL [facility] Remisol GFR/1.73 sq M.predicted among non-blacks MDRD (S/P/Bld) [Vol rate/Area] 97 mL/min/1.73 m2 Normal >=59mL/min /1.73 m2 [facility] Chem S Glucose [Mass/Vol] 93 mg/dL Normal 55 - 199 mg/dL [facility] Remisol Potassium [Moles/Vol] 4.1 mmol/L Normal 3.5 - 5.3 mmol/L [facility] Remisol Sodium [Moles/Vol] 138 mmol/L Normal 135 - 145 mmol/L [facility] Remisol Urea nitrogen [Mass/Vol] 21 mg/dL Normal 5 - 21 mg/dL [facility] Remisol HEMATOLOGYOrdered By: Rama Davenport on 02-22-2023 Erythrocyte distribution width (RBC) [Ratio] 15.4 % High 10.9 - 14.2 % FT HemeAutoSS Hematocrit (Bld) [Volume fraction] 36.5 % Normal 34.0 - 46.0 % [facility] HemeAutoSS Hemoglobin (Bld) [Mass/Vol] 12.4 g/dL Normal 12.0 - 16.0 gm/dL [facility] HemeAutoSS MCH (RBC) [Entitic mass] 29.5 pg Normal 27.0 - 34.0 pg [facility] HemeAutoSS MCHC (RBC) [Mass/Vol] 34.0 g/dL Normal 31.4 - 36.0 gm/dL [facility]eAutoSS MCV (RBC) [Entitic vol] 86.8 fL Normal 80.0 - 100.0 fL [facility]eAutoSS Platelet mean volume (Bld) [Entitic vol] 7.1 fL Normal 6.4 - 10.8 fL [facility]eAutoSS Platelets (Bld) [#/Vol] 275.0 E9/L Normal 150.0 - 500.0 E9/L [facility]eAutoSS RBC (Bld) [#/Vol] 4.2 E12/L Low 4.3 - 5.9 E12/L [facility]eAutoSS WBC corrected for nucl RBC Auto (Bld) [#/Vol] 6.6 E9/L Normal 4.0 - 11.0 E9/L FT HemeAutoSS CULTURE SPUTUMon 12-10-2022 CULTURE SPUTUM Culture Observations : NORMAL RESPIRATORY LI. Normal [facility] Comment on above: Performed By: #### C BC #### [facility] [address] [place] [address] Dr. Ildefonso Finn SPUTUM GRAM STAINon 12-11-19 COMMENTS Normal [facility] Comment on above: Performed By: #### S PUTGS #### [facility] [address] [address] [address] Ildefonso Finn DIPHTHEROIDS Normal [facility] Comment on above: Performed By: #### S PUTGS #### [facility] [address] [place] [address] Dr. Ildefonso Finn EPITHELIALS <25 Normal [facility] [facility] Comment on above: Performed By: #### S PUTGS #### [facility] [address] [address] [address] Ildefonso Finn FUNGAL ELEMENTS Normal [facility] Comment on above: Performed By: #### S PUTGS #### [facility] [address] [place] [address] Dr. Ildefonso Finn GRAM NEG BACILLI Normal [facility] Comment on above: Performed By: #### S PUTGS #### [facility] [address] [place] [address] Dr. Ildefonso Finn GRAM NEG DIPPLOCOCCI Normal [facility] Comment on above: Performed By: #### S PUTGS #### [facility] [address] [place] [address] Dr. Ildefonso Finn GRAM POS BACILLI Normal [facility] Comment on above: Performed By: #### S PUTGS #### [facility] [address] [place] [address] Dr. Ildefonso Finn GRAM POSITIVE COCCI MODERATE Normal [facility] Comment on above: Performed By: #### S PUTGS #### [facility] [address] [place] [address] Dr. Ildefonso Finn WBC (Bld) [#/Vol] 10*3/uL Normal [facility] Comment on above: Performed By: #### S PUTGS #### [facility] [address] [place] [address] Dr. Ildefonso Finn Covid-19 PCR (CVDTB)on SARS-CoV-2 (COVID-19) RNA KARLA+probe Ql (Unsp spec) Not detected Normal NOT DETECTED [facility] Comment on above: Result Comment: When [...] for this test is supported by the [employer] Leader of Health and Human Service's declaration that [...] used). Performed By: #### C VDTBH #### [facility] [address] [place] [address] Dr. Ildefonso Finn INFLUENZA A AND B AGon 09-15 [facility] SEE BELOW Normal [facility] Comment on above: Result Comment: Nega tive for Flu A protein angiten. Infection due to Flu A cannot be ruled out. Flu A angiten in the sample may be below the detection limit of the test. Performed By: #### I NFLUAB #### [facility] [address] [place] [address] Dr. Ildefonso Finn INFLUBNEG SEE BELOW Normal [facility] Comment on above: Result Comment: Nega tive for Flu B protein antigen. Infection due to Flu B cannot be ruled out. Flu B antigen in the sample may be below the detection limit of the test. Performed By: #### I NFLUAB #### [facility] [address] [place] [address] Dr. Ildefonso Finn INFLUENZA A AG Negative Normal NEGATIVE SEE COMMENT [facility] Comment on above: Performed By: #### I NFLUAB #### [facility] [address] [place] [address] Dr. Ildefonso Finn INFLUENZA B AG Negative Normal NEGATIVE SEE COMMENT [facility] Comment on above: Performed By: #### I NFLUAB #### [facility] [address] [place] [address] Dr. Ildefonso Finn OCC BLD IMMUNO SCREENon 06-17 OCCULT BLOOD Negative Normal NEGATIVE [facility] Comment on above: Performed By: #### O BSCRN #### [facility] [address] [place] [address] Dr. Ildefonso Finn CBC AUTO DIFFon 07-02-2022 BASO # 0.0 103/ul Normal 0.0-0.1 [facility] Comment on above: Performed By: #### C BC #### [facility] [address] [place] [address] Dr. Ildefonso Finn Basophils/100 WBC (Bld) 0.8 % Normal 0.2-2.0 [facility] Comment on above: Performed By: #### C BC #### [facility] [address] [place] [address] Dr. Ildefonso Finn EO # 0.1 103/ul Normal 0.0-0.7 [facility] Comment on above: Performed By: #### C BC #### [facility] [address] [place] [address] Dr. Ildefonso Finn Eosinophils/100 WBC (Bld) 1.1 % Normal 0.9-7.0 [facility] Comment on above: Performed By: #### C BC #### [facility] [address] [place] [address] Dr. Ildefonso Finn Erythrocyte distribution width (RBC) [Ratio] 13.4 % Normal 11.0-15.0 [facility] Comment on above: Performed By: #### C BC #### [facility] [address] [place] [address] Dr. Ildefonso Finn Hematocrit (Bld) [Volume fraction] 39.5 % Normal 36.0-48.0 [facility] Comment on above: Performed By: #### C BC #### [facility] [address] [place] [address] Dr. Ildefonso Finn Hemoglobin (Bld) [Mass/Vol] 12.9 g/dL Normal 12.0-16.0 [facility] Comment on above: Performed By: #### C BC #### [facility] [address] [place] [address] Dr. Ildefonso Finn IG # 0.01 10e3/ul Normal 0.00-0.03 [facility] Comment on above: Performed By: #### C BC #### [facility] [address] [place] [address] Dr. Ildefonso Finn IG % 0.2 % Normal 0.0-0.5 [facility] Comment on above: Performed By: #### C BC #### [facility] [address] [place] [address] Dr. Ildefonso Finn LYMPH # 1.1 103/ul Critically low 1.2-3.8 [facility] Comment on above: Performed By: #### C BC #### [facility] [address] [place] [address] Dr. Ildefonso Finn Lymphocytes/100 WBC (Bld) 20.3 % Critically low 20.5-60.0 [facility] Comment on above: Performed By: #### C BC #### [facility] [address] [place] [address] Dr. Ildefonso Finn MANUAL DIFF REQ NO Normal [facility] Comment on above: Performed By: #### C BC #### [facility] [address] [place] [address] Dr. Ildefonso Finn MCH (RBC) [Entitic mass] 29.3 pg Normal 26.7-34.0 [facility] Comment on above: Performed By: #### C BC #### [facility] [address] [place] [address] Dr. Ildefonso Finn MCHC (RBC) [Mass/Vol] 32.7 g/dL Normal 29.9-35.2 [facility] Comment on above: Performed By: #### C BC #### [facility] [address] [place] [address] Dr. Ildefonso Finn MCV (RBC) [Entitic vol] 89.8 fL Normal 81.0-99.0 [facility] Comment on above: Performed By: #### C BC #### [facility] [address] [place] [address] Dr. Ildefonso Finn MONO # 0.5 103/ul Normal 0.3-0.8 [facility] Comment on above: Performed By: #### C BC #### [facility] [address] [place] [address] Dr. Ildefonso Finn Monocytes/100 WBC (Bld) 10.0 % Normal 1.7-12.0 [facility] Comment on above: Performed By: #### C BC #### [facility] [address] [place] [address] Dr. Ildefonso Finn NEUT # 3.6 103/ul Normal 1.4-6.5 [facility] Comment on above: Performed By: #### C BC #### [facility] [address] [place] [address] Dr. Ildefonso Finn Neutrophils/100 WBC (Bld) 67.6 % Normal 43.0-75.0 [facility] Comment on above: Performed By: #### C BC #### [facility] [address] [place] [address] Dr. Ildefonso Finn Platelet mean volume (Bld) [Entitic vol] 9.0 fL Critically low 9.5-13.5 [facility] Comment on above: Performed By: #### C BC #### [facility] [address] [place] [address] Dr. Ildefonso Finn PLT 290 103/ul Normal 150-450 [facility] Comment on above: Performed By: #### C BC #### [facility] [address] [place] [address] Dr. Ildefonso Finn RBC 4.40 106/ul Normal 4.20-5.40 [facility] Comment on above: Performed By: #### C BC #### [facility] [address] [place] [address] Dr. Ildefonso Finn WBC 5.3 103/ul Normal 4.0-11.0 [facility] Comment on above: Performed By: #### C BC #### [facility] [address] [place] [address] Dr. Ildefonso Finn FREE THYROXINE INDEX T7on FTI 2.56 Normal 1.30-4.50 [facility] Comment on above: Performed By: #### C BC #### [facility] [address] [place] [address] Dr. Ildefonso Finn T3U 32.0 % Normal 30.0-39.0 [facility] Comment on above: Performed By: #### C BC #### [facility] [address] [place] [address] Dr. Ildefonso Finn T4 [Mass/Vol] 8.00 ug/dL Normal 4.80-13.90 [facility] Comment on above: Performed By: #### C BC #### [facility] [address] [place] [address] Dr. Ildefonso Finn GLYCOHEMOGLOBIN A1Con 2021 ADA RECOMMENDATION SEE BELOW Normal [facility] Comment on above: Result Comment: ADA RECOMMENDED LIMIT 4.0 - 6.0 ADA THERAPEUTIC TARGET < 7.0 ACTION SUGGESTED > 7.0 Performed By: #### A 1C #### [facility] [address] [place] [address] Dr. Ildefonso Finn Glucose [Mass/Vol] 114 mg/dL Normal [facility] Comment on above: Performed By: #### A 1C #### [facility] [address] [place] [address] Dr. Ildefonso Finn HbA1c (Bld) [Mass fraction] 5.6 % Normal 4.5-6.2 [facility] Comment on above: Performed By: #### A 1C #### [facility] [address] [place] [address] Dr. Ildefonso Finn IRONon 07-02-2022 Iron [Mass/Vol] 87.0 ug/dL Normal 50.0-170.0 [facility] Comment on above: Performed By: #### I PRISCILLA #### [facility] [address] [place] [address] Dr. Ildefonso Finn LIPID PROFILEon 07-02-2022 CHOL-HDL RATIO NORM SEE BELOW Normal [facility] Comment on above: Result Comment: 3.3 - 4.4 LOW RISK 4.4 - 7.1 AVERAGE RISK 7.1 - 11.0 MODERATE RISK >11.0 HIGH RISK Performed By: #### C BC #### [facility] [address] [place] [address] Dr. Ildefonso Finn Cholesterol [Mass/Vol] 173 mg/dL Normal <=200 Th [facility] Comment on above: Performed By: #### C BC #### [facility] [address] [place] [address] Dr. Ildefonso Finn Cholesterol in HDL [Mass/Vol] 74 mg/dL Critically high 40-60 [facility] Comment on above: Performed By: #### C BC #### [facility] [address] [address] [address] Ildefonso Finn Cholesterol in LDL [Mass/Vol] 90.6 mg/dL Normal [facility] Comment on above: Performed By: #### C BC #### [facility] [address] [place] [address] Dr. Ildefonso Finn Cholesterol.total/Chol esterol in HDL [Mass ratio] 2.3 {ratio} Normal [facility] Comment on above: Performed By: #### C BC #### [facility] [address] [place] [address] Dr. Ildefonso Finn HDL NORMAL > or = 60 mg/dl - LO W CARDIOVASCULAR RISK <40 mg/dl - HIGH CARDIOVASCULAR RISK Normal [facility] Comment on above: Performed By: #### C BC #### [facility] [address] [place] [address] Dr. Ildefonso Finn LDL CALC NORMAL SEE BELOW Normal [facility] Comment on above: Result Comment: <100 mg/dl OPTIMAL 100 - 129 mg/dl NEAR OR ABOVE OPTIMAL 130 - 159 mg/dl BORDERLINE HIGH 160 - 189 mg/dl HIGH >190 mg/dl VERY HIGH Performed By: #### C BC #### [facility] [address] [place] [address] Dr. Ildefonso Finn Triglyceride [Mass/Vol] 42 mg/dL Normal <=150 [facility] Comment on above: Performed By: #### C BC #### [facility] [address] [place] [address] Dr. Ildefonso Finn VLDL CALC 8.4 mg/dL Normal [facility] Comment on above: Performed By: #### C BC #### [facility] [address] [place] [address] Dr. Ildefonso Finn PROF 14(COMP METB)on 022 Albumin [Mass/Vol] 3.6 g/dL Normal 3.4-5.0 [facility] Comment on above: Performed By: #### C BC #### [facility] [address] [place] [address] Dr. Ildefonso Finn Albumin/Globulin [Mass ratio] 0.8 {ratio} Normal [facility] Comment on above: Performed By: #### C BC #### [facility] [address] [place] [address] Dr. Ildefonso Finn ALP [Catalytic activity/Vol] 74 U/L Normal 46-116 [facility] Comment on above: Performed By: #### C BC #### [facility] [address] [place] [address] Dr. Ildefonso Finn ALT [Catalytic activity/Vol] 15 U/L Normal 14-59 [facility] Comment on above: Performed By: #### C BC #### [facility] [address] [place] [address] Dr. Ildefonso Finn Anion gap [Moles/Vol] 7.8 mmol/L Normal [facility] Comment on above: Performed By: #### C BC #### [facility] [address] [place] [address] Dr. Ildefonso Finn AST [Catalytic activity/Vol] 21 U/L Normal 15-37 [facility] Comment on above: Performed By: #### C BC #### [facility] [address] [place] [address] Dr. Ildefonso Finn Bilirubin [Mass/Vol] 0.4 mg/dL Normal 0.2-1.0 [facility] Comment on above: Performed By: #### C BC #### [facility] [address] [place] [address] Dr. Ildefonso Finn Calcium [Mass/Vol] 9.0 mg/dL Normal 8.5-10.1 [facility] Comment on above: Performed By: #### C BC #### [facility] [address] [place] [address] Dr. Ildefonso Finn Chloride [Moles/Vol] 103 mmol/L Normal 98-107 [facility] Comment on above: Performed By: #### C BC #### [facility] [address] [place] [address] Dr. Ildefonso Finn CO2 [Moles/Vol] 30.5 mmol/L Normal 21.0-32.0 [facility] Comment on above: Performed By: #### C BC #### [facility] [address] [place] [address] Dr. Ildefonso Finn Creatinine [Mass/Vol] 0.70 mg/dL Normal 0.55-1.02 [facility] Comment on above: Performed By: #### C BC #### [facility] [address] [place] [address] Dr. Ildefonso Finn EGFR-AF ETHIOPIAN >60 Normal >=60 [facility] Comment on above: Performed By: #### C BC #### [facility] [address] [place] [address] Dr. Ildefonso Finn EGFR-NON AF ETHIOPIAN >60 Normal >=60 [facility] Comment on above: Performed By: #### C BC #### [facility] [address] [place] [address] Dr. Ildefonso Finn Globulin (S) [Mass/Vol] 4.5 g/dL Normal [facility] Comment on above: Performed By: #### C BC #### [facility] [address] [place] [address] Dr. Ildefonso Finn Glucose [Mass/Vol] 106 mg/dL Normal 74-106 [facility] Comment on above: Performed By: #### C BC #### [facility] [address] [place] [address] Dr. Ildefonso Finn Potassium [Moles/Vol] 4.3 mmol/L Normal 3.5-5.1 [facility] Comment on above: Performed By: #### C BC #### [facility] [address] [place] [address] Dr. Ildefonso Finn Protein [Mass/Vol] 8.1 g/dL Normal 6.4-8.2 [facility] Comment on above: Performed By: #### C BC #### [facility] [address] [place] [address] Dr. Ildefonso Finn Sodium [Moles/Vol] 137 mmol/L Normal 136-145 [facility] Comment on above: Performed By: #### C BC #### [facility] [address] [address] [address] Ildefonso Finn Urea nitrogen [Mass/Vol] 15.0 mg/dL Normal 7.0-18.0 [facility] Comment on above: Performed By: #### C BC #### [facility] [address] [address] [address] Ildefonso Finn Urea nitrogen/Creatinine [Mass ratio] 21.4 mg/mg Normal [facility] Comment on above: Performed By: #### C BC #### [facility] [address] [address] [address] Ildefonso Finn TSHon 07-02-2022 TSH 2.511 uIU/mL Normal 0.358-3.74 0 [facility] Comment on above: Performed By: #### C BC #### [facility] [address] [address] [address] Ildefonso Finn CULTURE SPUTUMon 04-16-2022 CULTURE SPUTUM Culture Observations : H. parainfluenzae; beta lactamase negative Isolate 1 Haemophilus parainfluenzae Normal [facility] Comment on above: Performed By: #### S PUTCX #### [facility] [address] [address] [address] Ildefonso Finn SPUTUM GRAM STAINon 04-16-20 COMMENTS Normal [facility] Comment on above: Performed By: #### S PUTGS #### [facility] [address] [place] [address] Dr. Ildefonso Finn DIPHTHEROIDS Normal [facility] Comment on above: Performed By: #### S PUTGS #### [facility] [address] [place] [address] Dr. Ildefonso Finn EPITHELIALS <25 Normal [facility] Comment on above: Performed By: #### S PUTGS #### [facility] [address] [place] [address] Dr. Ildefonso Finn FUNGAL ELEMENTS Normal [facility] Comment on above: Performed By: #### S PUTGS #### [facility] [address] [place] [address] Dr. Ildefonso Finn GRAM NEG BACILLI Normal [facility] Comment on above: Performed By: #### S PUTGS #### [facility] [address] [address] [address] Ildefonso Finn GRAM NEG DIPPLOCOCCI MODERATE Normal [facility] Comment on above: Performed By: #### S PUTGS #### [facility] [address] [address] [address] Ildefonso Finn GRAM POS BACILLI Normal [facility] Comment on above: Performed By: #### S PUTGS #### [facility] [address] [place] [address] Dr. Ildefonso Finn GRAM POSITIVE COCCI FEW Normal [facility] Comment on above: Performed By: #### S PUTGS #### [facility] [address] [place] [address] Dr. Ildefonso Finn WBC (Bld) [#/Vol] 10*3/uL Normal [facility] Comment on above: Performed By: #### S PUTGS #### [facility] [address] [place] [address] Dr. Ildefonso Finn Covid-19 PCR (CVDTBH)on SARS-CoV-2 (COVID-19) RNA KARLA+probe Ql (Unsp spec) Detected Critically abnormal NOT DETECTED [facility] Comment on above: Result Comment: This test is not yet approved or cleared by the [place] FDA. When there are no FDA-approved or cleared tests available, and other criteria are met, FDA can make tests available under an emergency access mechanism called an Emergency Use Authorization (EUA). The EUA for this test is supported by the [employer] Leader of Health and Human Service's (HHS's) declaration [...] used). Performed By: #### C VDTBH #### [facility] [address] [place] [address] Dr. Ildefonso Finn Screening Mammogram, Ryan stanley [...] VERY IMPORTANT TO YOUR HEALTH. THE CURRENT [employer] GUIDELINES RECOMMENDS ANNUAL MAMMOGRAPHY BEGINNING AT AGE 40 THIS FACILITY USES A REMINDER SYSTEM TO ENSURE ALL PATIENTS RECEIVE REMINDER NOTIFICATIONS AT THE APPROPRIATE TIME BASED ON THE RECOMMENDATIONS OF THIS EXAM. 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 Accredited by the ACR and FDA. Report reported and signed by ESTEFANIA RUBIN on 12/31/2021 1312 Normal [facility] Vital Signs Date Time Vital Sign Value Performing Clinician Facility 03-11-2024 15:19-0400 Body temperature 99.14 [degF] Mhd Al-Marrawi [facility] 03-11-2024 15:19-0400 Diastolic blood pressure 83 mm[Hg] Mhd Al-Marrawi [facility] 03-11-2024 15:19-0400 Heart rate 96 /min d Al-Marrawi [facility] 03-11-2024 15:19-0400 Mean blood pressure 97 mm[Hg] d Al-Marrawi [facility] 03-11-2024 15:19-0400 Respiratory rate 20 /min Mhd Al-Marrawi [facility] 03-11-2024 15:19-0400 SaO2% (BldA) [Mass fraction] 94 % Mhd Al-Marrawi [facility] 03-11-2024 15:19-0400 Systolic blood pressure 124 mm[Hg] Mhd Al-Marrawi [facility] 02-26-2024 14:36-0400 Diastolic blood pressure 96 mm[Hg] Lauro Simon [facility] 02-26-2024 14:36-0400 Heart rate 90 /min Lauro Simon [facility] 02-26-2024 14:36-0400 Systolic blood pressure 145 mm[Hg] Lauro Simon [facility] 02-20-2024 12:42-0400 Body height 165.1 cm Chris Baum MD Work Phone: [facility] 02-20-2024 12:42-0400 Body mass index (BMI) [Ratio] 21.63 kg/m2 Chris Baum MD Work Phone: [facility] 02-20-2024 12:42-0400 Body weight 58.97 kg Chris Baum MD Work Phone: [facility] 02-20-2024 12:42-0400 Diastolic blood pressure 81 mm[Hg] Chris Baum MD Work Phone: [facility] 02-20-2024 12:42-0400 Heart rate 83 /min Chris Baum MD Work Phone: [facility] 02-20-2024 12:42-0400 Systolic blood pressure 133 mm[Hg] Chris Baum MD Work Phone: [facility] 12-04-2023 14:31-0400 Body temperature 98.42 [degF] Muna Erazochad [facility] 12-04-2023 14:31-0400 Diastolic blood pressure 72 mm[Hg] Muna Erazochad [facility] 12-04-2023 14:31-0400 Heart rate 97 /min Muna Erazochad [facility] 12-04-2023 14:31-0400 Mean blood pressure 86 mm[Hg] Muna Amaro [facility] 12-04-2023 14:31-0400 Respiratory rate 16 /min Muna Amaro [facility] 12-04-2023 14:31-0400 SaO2% (BldA) [Mass fraction] 95 % Muna Amaro [facility] 12-04-2023 14:31-0400 Systolic blood pressure 113 mm[Hg] Muna Amaro [facility] 11-06-2023 15:13-0400 Blood Pressure Location Lauro Ugartebradfordgraham [facility] [place] 11-06-2023 15:13-0400 Diastolic blood pressure 90 mm[Hg] Lauro Aurora [facility] [place] 11-06-2023 15:13-0400 Heart rate 85 /min Lauro Ugartebradfordgraham [facility] [place] 11-06-2023 15:13-0400 Systolic blood pressure 137 mm[Hg] Lauro Ugartebradfordgraham [facility] [place] 09-04-2023 14:44-0500 Body temperature 97.34 [degF] Mhd Al-Marrawi [facility] 09-04-2023 14:44-0500 Diastolic blood pressure 64 mm[Hg] Mhd Al-Marrawi [facility] 09-04-2023 14:44-0500 Heart rate 91 /min Mhd Al-Marrawi [facility] 09-04-2023 14:44-0500 Mean blood pressure 86 mm[Hg] Mhd Al-Marrawi [facility] 09-04-2023 14:44-0500 Respiratory rate 18 /min Mhd Al-Marrawi [facility] 09-04-2023 14:44-0500 SaO2% (BldA) [Mass fraction] 99 % Mhd Al-Marrawi [facility] 09-04-2023 14:44-0500 Systolic blood pressure 130 mm[Hg] Mhd Al-Marrawi [facility] 08-07-2023 15:51-0500 Diastolic blood pressure 78 mm[Hg] Lauro Simon [facility] [place] 08-07-2023 15:51-0500 Heart rate 80 /min Lauro Aurora [facility] 08-07-2023 15:51-0500 Systolic blood pressure 128 mm[Hg] Lauro Hoody [facility] 05-22-2023 14:00-0500 Blood Pressure Location Mhd Al-Marrawi [facility] 05-22-2023 14:00-0500 Body temperature 97.88 [degF] Mhd Al-Marrawi [facility] 05-22-2023 14:00-0500 Diastolic blood pressure 77 mm[Hg] Mhd Al-Marrawi [facility] 05-22-2023 14:00-0500 Heart rate 86 /min Mhd Al-Marrawi [facility] 05-22-2023 14:00-0500 Mean blood pressure 94 mm[Hg] Mhd Al-Marrawi [facility] 05-22-2023 14:00-0500 Respiratory rate 16 /min Mhd Al-Marrawi [facility] 05-22-2023 14:00-0500 SaO2% (BldA) [Mass fraction] 98 % Mhd Al-Marrawi [facility] 05-22-2023 14:00-0500 Systolic blood pressure 129 mm[Hg] Mhd Al-Marrawi [facility] 05-01-2023 09:00-0400 Blood Pressure Location Mhd Al-Marrawi [facility] 05-01-2023 09:00-0400 Body temperature 97.7 [degF] Mhd Al-Marrawi [facility] 05-01-2023 09:00-0400 Diastolic blood pressure 71 mm[Hg] Mhd Al-Marrawi [facility] 05-01-2023 09:00-0400 Heart rate 86 /min Mhd Al-Marrawi [facility] 05-01-2023 09:00-0400 Mean blood pressure 87 mm[Hg] Mhd Al-Marrawi [facility] 05-01-2023 09:00-0400 Respiratory rate 18 /min Mhd Al-Marrawi [facility] 05-01-2023 09:00-0400 SaO2% (BldA) [Mass fraction] 95 % Mhd Al-Marrawi [facility] 05-01-2023 09:00-0400 Systolic blood pressure 120 mm[Hg] Mhd Al-Marrawi [facility] 03-01-2023 10:51-0400 Blood Pressure Location Bashar [place] [facility] 03-01-2023 10:51-0400 Diastolic blood pressure 78 mm[Hg] Bashar [place] [facility] 03-01-2023 10:51-0400 Heart rate 77 /min Mehdi Jackson [facility] 03-01-2023 10:51-0400 SaO2% (BldA) [Mass fraction] 97 % Mehdi Jackson [facility] 03-01-2023 10:51-0400 Systolic blood pressure 136 mm[Hg] Mehdi Jackson [facility] 02-22-2023 12:31-0400 Blood Pressure Location Lauro Moratayay [facility] 02-22-2023 12:31-0400 Diastolic blood pressure 84 mm[Hg] Lauro Mourany [facility] 02-22-2023 12:31-0400 Systolic blood pressure 127 mm[Hg] Lauro Mourany [facility] 02-22-2023 12:30-0400 Blood Pressure Location Lauro Mourany [facility] 02-22-2023 12:30-0400 Body temperature 98.06 [degF] Lauro Mourany [facility] 02-22-2023 12:30-0400 Diastolic blood pressure 79 mm[Hg] Lauro Mourany [facility] 02-22-2023 12:30-0400 Heart rate 87 /min Lauro Mourany [facility] 02-22-2023 12:30-0400 Respiratory rate 16 /min Lauro Mourany [facility] 02-22-2023 12:30-0400 SaO2% (BldA) [Mass fraction] 96 % Lauro Mourany [facility] 02-22-2023 12:30-0400 Systolic blood pressure 136 mm[Hg] Lauro Simon [facility] Encounters Encounter Date Encounter Type Care Provider Facility Start: [facility]: [facility]: 03-25-2024 Evaluation and management of inpatient JO ANN ANIBAL [facility] Start: 03-25-2024 [facility] Start: 03-24-2024 Evaluation and management of inpatient LAURA [facility] Start: 03-23-2024 Evaluation and management of inpatient MIRRA JOSE [facility] Start: 03-22-2024 Evaluation and management of inpatient DEA [facility] Start: 03-22-2024 Evaluation and management of inpatient LAURA [facility] Start: 03-22-2024 Evaluation and management of inpatient RAGHEB [facility] Start: 03-21-2024 Evaluation and management of inpatient RAGHEB [facility] Start: 03-20-2024 Evaluation and management of inpatient RAGHEB [facility] Start: 03-18-2024 Evaluation and management of inpatient RAGHEB [facility] Start: 03-17-2024 Evaluation and management of inpatient RAGHEB [facility] Start: 03-16-2024 Evaluation and management of inpatient RAGHEB [facility] Start: 03-15-2024 Evaluation and management of inpatient RAGHEB [facility] Start: 03-15-2024 Evaluation and management of inpatient RAGHEB [facility] Start: 03-14-2024 [facility]: 03-11-2024 End: 03-11-2024 ambulatory Mhd Sushil Narayan Facility[facility] Start: 03-11-2024 End: 03-11-2024 Patient encounter procedure Mhd Yaser Al-Marrawi [facility] Start: 03-01-2024 End: 03-01-2024 ambulatory MICHAEL BUCKLEY Not Available Start: 02-26-2024 End: 02-26-2024 ambulatory Muna Amaro Facility:[facility] Start: 02-26-2024 End: 02-26-2024 Patient encounter procedure Lauro Simon [facility] [place] Start: 02-20-2024 End: 02-20-2024 ambulatory SELF Facility:[facility] Start: 02-20-2024 End: 02-20-2024 Patient encounter procedure Chris Baum MD Work Phone: [facility] Comment on above: Multiple sclerosis ( HCC) (Primary Dx) Start: 12-04-2023 End: 12-04-2023 ambulatory Muna Amaro Facility:[facility] Start: 12-04-2023 End: 12-04-2023 Patient encounter procedure Muna Amaro [facility] Start: 11-20-2023 End: 11-20-2023 ambulatory Mhd Yaser Al-Marrawi Facility:[facility] Start: 11-20-2023 End: 11-20-2023 Patient encounter procedure Mhd Yaser Al-Marrawi [facility] Start: 11-07-2023 End: 11-07-2023 ambulatory ALANA MENDEZ [facility] Start: 11-06-2023 End: 11-06-2023 ambulatory Lauro Simon Facility: [place] Start: 11-06-2023 End: 11-06-2023 Patient encounter procedure Lauro Simon [facility] Start: 09-15-2023 ambulatory Lauro Ugarteshae Facility:[facility] Start: 09-04-2023 End: 09-04-2023 ambulatory Mhd Yaser Al-Marrawi Facility:[facility] Start: 09-04-2023 End: 09-04-2023 Patient encounter procedure Mhd Yaser Al-Marrawi [facility] Start: 09-01-2023 End: 09-01-2023 ambulatory Mhd Yaser Al-Marrawi Facility:[facility] Start: 09-01-2023 End: 09-01-2023 Patient encounter procedure Mhd Yaser Al-Marrawi [facility] Start: 08-07-2023 End: 08-07-2023 ambulatory Lauro Simon Facility:[facility] Start: 08-07-2023 End: 08-07-2023 Patient encounter procedure Lauro Simon [facility] Start: 07-28-2023 End: 07-28-2023 ambulatory RAGHEB [facility] Start: 07-27-2023 End: 08-01-2023 ambulatory ALANA MENDEZ [facility] Start: 07-27-2023 End: 07-27-2023 ambulatory RAGHEB [facility] Start: 07-26-2023 End: 07-26-2023 ambulatory RAGHEB [facility] Start: 07-25-2023 End: 07-25-2023 ambulatory RAGHEB [facility] Start: 07-24-2023 End: 07-24-2023 ambulatory RAGHEB [facility] Start: 07-21-2023 End: 07-21-2023 ambulatory RAGHEB [facility] Start: 07-20-2023 End: 07-20-2023 ambulatory RAGHEB [facility] Start: 07-19-2023 End: 07-19-2023 ambulatory [facility] Start: 07-18-2023 End: 07-18-2023 ambulatory RAGHEB [facility] Start: 07-14-2023 End: 07-14-2023 ambulatory RAGHEB [facility] Start: 07-13-2023 End: 07-13-2023 ambulatory RAGHEB [facility] Start: 07-13-2023 End: 07-13-2023 ambulatory [facility] Start: 07-12-2023 End: 07-12-2023 ambulatory RAGHEB [facility] Start: 07-07-2023 End: 07-07-2023 ambulatory RAGHEB [facility] Start: 07-06-2023 End: 07-06-2023 ambulatory RAGHEB [facility] Start: 07-05-2023 End: 07-05-2023 ambulatory RAGHEB [facility] Start: 07-04-2023 End: 07-04-2023 ambulatory RAGHEB [facility] Start: 07-03-2023 End: 07-03-2023 ambulatory RAGHEB [facility] Start: 06-30-2023 End: 06-30-2023 ambulatory RAGHEB [facility] Start: 06-29-2023 End: 06-29-2023 ambulatory RAGHEB [facility] Start: 06-28-2023 End: 06-28-2023 ambulatory RAGHEB [facility] Start: 06-27-2023 End: 06-27-[facility]: 06-26-2023 End: 06-26-2023 ambulatory RAGHEB [facility] Start: 06-23-2023 End: 06-23-2023 ambulatory RAGHEB [facility] Start: 06-22-2023 End: 06-22-2023 ambulatory [facility] Start: 06-21-2023 End: 06-21-2023 ambulatory RAGB [facility] Start: 06-20-2023 End: 06-20-2023 ambulatory RAGHEB [facility] Start: 06-19-2023 End: 06-19-2023 ambulatory RAGHEB [facility] Start: 06-16-2023 End: 06-16-2023 ambulatory RAGB [facility] Start: 06-15-2023 End: 06-15-2023 ambulatory RAGHEB [facility] Start: 06-14-2023 End: 06-14-2023 ambulatory RAGB [facility] Start: 06-13-2023 End: 06-13-2023 ambulatory RAGHEB [facility] Start: 05-30-2023 End: 05-30-2023 ambulatory Mhd Yaser Al-Marrawi Facility:[facility] Start: 05-30-2023 End: 05-30-2023 Patient encounter procedure Mhd Yaser Al-Marrawi [facility] Start: 05-25-2023 End: 05-25-2023 ambulatory RAGHEB [facility] Start: 05-25-2023 End: 05-25-2023 ambulatory [facility] Start: 05-22-2023 End: 05-22-2023 ambulatory Mhd Yaser Al-Marrawi Facility:[facility] Start: 05-22-2023 End: 05-22-2023 Patient encounter procedure Mhd Yaser Al-Marrawi [facility] Start: 05-22-2023 End: 05-22-2023 ambulatory Mhd Yaser Al-Marrawi Facility:[facility] Start: 05-22-2023 End: 05-22-2023 Patient encounter procedure Mhd Yaser Al-Marrawi [facility] Start: 05-02-2023 End: 05-02-2023 ambulatory BESSYJILL LOZAD[facility]EM[facility]REY[facility] Start: 05-01-2023 End: 05-01-2023 ambulatory Lauro Simon Facility:[facility] Start: 05-01-2023 End: 05-01-2023 Patient encounter procedure Lauro Simon [facility] [place] Start: 05-01-2023 End: 05-01-2023 ambulatory Mhd Yaser Al-Marrawi Facility:[facility] Start: 05-01-2023 End: 05-01-2023 Patient encounter procedure Mhd Yaser Al-Marrasendy [facility] Start: 04-21-2023 End: 04-21-2023 ambulatory Lauro Simon Facility:[facility] Start: 04-11-2023 End: 04-11-2023 ambulatory Tee Lobato Facility:[facility] Start: 04-03-2023 ambulatory Lauro Simon Facilit y:[facility] Start: 03-01-2023 End: 03-01-2023 Patient encounter procedure Bashar X [place] [facility] Start: 03-01-2023 End: 03-01-2023 Preprocedural examination done Bashar X [place] [facility] Start: 02-22-2023 End: 02-22-2023 Patient encounter procedure Lauro Simon [facility] Start: 02-20-2023 End: 03-23-2023 Pre-admission assessment Lauro Simon [facility] Start: 12-10-2022 End: 12-11-[address] BRIANNA YANEZ . Facility:[facility] Start: 09-15-2022 End: 09-15-[address] BRIANNA YANEZ . Facility:[facility] Start: 07-12-2022 End: 07-12-[address] BRIANNA YANEZ . Facility:[facility] Start: 07-06-2022 Encounter for genera l adult medical examination without abnormal findings DR BRIANNA YANEZ . [facility] Start: 07-02-2022 End: 07-03-[address] BRIANNA YANEZ . Facility:[facility] Start: 07-02-2022 End: 07-03-2022 Encounter for general adult medical examination without abnormal findings DR BRIANAN YANEZ . Facility:[facility] Start: 04-16-2022 End: 04-17-2022 [...] DTaP,Tdap,Td Vaccine (2 - Td or Tdap) [facility] Start: 05-27-2024 ambulatory Ambulatory Facility:[facility] Start: 03-17-2024 Influenza vaccination Influenza Vacc ine (#1) [facility] Start: 01-06-2024 Screening for malign ant neoplasm of breast Mammogram Screening [facility] Start: 11-11-2023 Advance Directive Discussion Advance Directive Discussion [facility] Start: 11-11-2023 Screening for osteoporosis Bone Density Screening [facility] Start: 03-17-2023 Covid-19 Vaccine ( season) Covid-19 Vaccine ( season) [facility] Start: 07-05-2022 Diabetes Screening Diabetes Screenin g [facility] Start: 2008 Shingrix Vaccine (1 of 2) Craig grix Vaccine (1 of 2) [facility] Start: 11-11-2003 Lipid panel Lipid Screening [facility] Start: 11-11-2003 Screening for malign ant neoplasm of colon [facility] Start: 1976 Anxiety Screening Anxiety Screening [facility] Start: 1976 Depression Screening Depression Scre ening [facility] Start: 1976 Hepatitis C screening Hepatitis C Sc reening [facility] Start: 1976 HIV screening HIV Screening [facility] Immunizations Immunization Date Immunization Notes Care Provider Fa [facility] 06-27-2023 influenza virus vaccine, unspecified formulation Chris Baum MD Work Phone: [facility] 04-15-2022 influenza virus vaccine, unspecified formulation Lauro Simon [facility] 05-02-2021 influenza virus vaccine, unspecified formulation Lauro Simon [facility] 10-31-2020 SARS-CoV-2 (COVID-19 ) mRNA BNT-162b2 vax Lauro Mourany [facility] Comment on above: Result Comment: 2022: [id number] 10-10-2020 SARS-CoV-2 (COVID-19 ) mRNA BNT-162b2 vax Lauro Mourangraham [facility] Comment on above: Result Comment: 2022: [id number] 05-02-2019 influenza virus vaccine, unspecified formulation Lauro Simon [facility] 05-02-2019 influenza, injectabl e, quadrivalent, preservative free Chris Baum MD Work Phone: [facility] 05-04-2018 influenza virus vaccine, unspecified formulation Lauro Simon [facility] 05-04-2018 influenza, injectabl e, quadrivalent, preservative free Chris Baum MD Work Phone: [facility] 11-27-2017 tetanus toxoid, redu alona diphtheria toxoid, and acellular pertussis vaccine, adsorbed Lauro Simon [facility] 05-02-2017 influenza virus vaccine, unspecified formulation Lauro Simon [facility] 05-09-2016 influenza, unspecifi ed formulation Lauro Simon [facility] 05-07-2015 influenza virus vaccine, unspecified formulation Lauro Simon [facility] 05-07-2015 influenza, high dose seasonal, preservative-free Chris Baum MD Work Phone: [facility] 07-14-2014 influenza virus vaccine, unspecified formulation Lauro Simon [facility] 07-14-2014 influenza, injectable,quadrivalent , preservative free, pediatric Chris Baum MD Work Phone: [facility] 07-14-2014 pneumococcal conjuga te vaccine, 13 valent Lauro Simon [facility] 04-12-2013 influenza virus vaccine, unspecified formulation Chris Baum MD Work Phone: [facility] Work Phone: 06-15-2012 influenza virus vaccine, unspecified formulation Chris Baum MD Work Phone: [facility] 12-01-2011 pneumococcal polysaccharide vaccine, 23 valent Chris Baum MD Work Phone: [facility] 10-12-2010 influenza virus vaccine, unspecified formulation Chris Baum MD Work Phone: [facility] NEGATED: Highlighted row has not occurred!04-21-2023 influenza virus vaccine, unspecified formulation Lauro Ugarteshae [facility] [place] Payers Date Payer Category Payer Medicare [id number] 2023 Medicare [id number] 2023 Unknown [id number] 2022 Unknown [id number] 1958 Unknown [id number] 2.16.84 0.1.111564.3.579.2.593 1958 Unknown [id number] 2.16.84 0.1.647242.3.579.2.593 1958 Unknown [id number] 2.16.84 0.1.108468.3.579.2.593 1958 Unknown [id number] 2.16.84 0.1.497860.3.579.2.593 1958 Unknown [id number] 2.16.84 0.1.793258.3.579.2.593 1958 Unknown [id number] 2.16.84 0.1.493945.3.579.2.593 1958 Unknown [id number] 2.16.84 0.1.466796.3.579.2.593 1958 Unknown [id number] 2.16.84 0.1.579839.3.579.2.593 1958 Unknown [id number] 2.16.8 40.1.997647.3.579.2.72 1958 Unknown [id number] 2.16.84 0.1.573335.3.579.2.1259 1958 Unknown [id number] 2.16.8 40.1.164004.3.579.2. 1958 Unknown [id number] 2.16.8 40.1.734633.3.579.2. 1958 Unknown [id number] 2.16.8 40.1.058649.3.579.2 1958 Unknown [id number] 2.16.8 40.1.631681.3.579.2 1958 Unknown [id number] 2.16.8 40.1.902576.3.579.2 1958 Unknown [id number] 2.16.8 40.1.441157.3.579.2 1958 Unknown [id number] 2.16.8 40.1.397291.3.579.2 1958 Unknown [id number] 2.16.8 40.1.171403.3.579.2 1958 Unknown [id number] 2.16.8 40.1.145998.3.579.2 1958 Unknown [id number] 2.16.8 40.1.239912.3.579.2 1958 Unknown [id number] 2.16.8 40.1.075850.3.579.2 1958 Unknown [id number] 2.16.8 40.1.541661.3.579.2 1958 Unknown [id number] 2.16.8 40.1.991422.3.579.2 1958 Unknown [id number] 2.16.8 40.1.758095.3.579.2 1958 Unknown [id number] 2.16.8 40.1.714491.3.579.2.727 1958 Unknown [id number] 2.16.8 40.1.566725.3.579.2.727 1958 Unknown [id number] 2.16.8 40.1.201487.3.579.2.727 1958 Unknown [id number] 2.16.8 40.1.551618.3.579.2.727 Unknown [id number] Social History Date Type Detail Facility Start: 01-30-2023 End: 02-26-2024 Tobacco smoking status Never smoked tobacco (finding) [facility] Tobacco smoking status Never [facility] Start: 02-19-2024 End: 02-20-2024 Sex Assigned At Female [facility] Start: 10-22-2014 Tobacco use and exposure Smokeless tobacco non-user [facility] Start: 02-20-2024 Alcohol intake 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 (finding) [facility] Start: 02-19-2024 End: 02-20-2024 History of Social function [facility] Start: 1960 Sex Assigned At Not on file [facility] Functional Status Date Assessment Result Facility 08-07-2023 Functional Status N/A [facility] 03-01-2023 Functional Status No [facility] 02-22-2023 Functional Status No [facility] Clinical Notes 01-03-2022 to 03-25-2024 Chris Baum MD - 02/20/2024 12:45 PM EDTRadiologyRadiologyLaboratoryRadiologyLaboratoryLaboratoryLaboratoryLaboratory LaboratoryLaboratory Note Date & Type Note Facility 03-25-2024 Note [facility] 03-25-2024 Note [facility] 03-25-2024 Note [facility] 03-25-2024 Note 9:30-SW sent MRI fin dings to [facility], to call. 10:30-SW called and faxed updated documents to [facility]-await call back on accepting. OTM will continue to follow. [facility] 03-25-2024 Note [facility] 03-24-2024 Note [facility] 03-24-2024 Note [facility] 03-23-2024 Note [facility] 03-23-2024 Note [facility] 03-22-2024 Note [facility] 03-22-2024 Note [facility] 03-22-2024 Note [facility] 03-22-2024 Note [facility] 03-22-2024 Note [facility] 03-21-2024 Note [facility] 03-21-2024 Note [facility] 03-21-2024 Note [facility] 03-20-2024 Note [facility] 03-20-2024 Note [facility] 03-20-2024 Note [facility] 03-20-2024 Note [facility] 03-20-2024 Note [facility] 03-19-2024 Note [facility] 03-19-2024 Note [facility] 03-18-2024 Note [facility] 03-18-2024 Note [facility] 03-17-2024 Note [facility] 03-17-2024 Note [facility] 03-17-2024 Note [facility] 03-16-2024 Note [facility] 03-15-2024 Note [facility] 03-15-2024 Note [facility] 03-15-2024 Note [facility] 03-14-2024 Note [facility] 03-14-2024 Note Satisfactory for luci luation. Examination of the ThinPrep slide and cell block reveals benign bronchial cells, abundant acute inflammation, bacteria, and debris. [facility] Comment on above: Performed By: #### L [id number] ####[facility] ([facility])[address] [place] [address] 03-11-2024 Note Oncology Progress No te Chief [...] disease. Her tumor was discussed at the [facility] tumor board patient is to obtain Oncotype [...] Lumpectomy with wire-guided localization LYMPH NODE SAMPLING: Spray lymph node(s) SPECIMEN INTEGRITY: multiple specimens (A [...] present LYMPH NODES: Metastatic lymph node identified (2/) Number of sentinel lymph nodes examined: 2 [...] adjuvant treatment. She (more content not included)... [facility] 02-20-2024 Note HNO ID: [id number] Author: CHRIS BAUM MD Service: ? Author Type: Physician Type: Progress Notes Filed: 02/20/2024 17:38 Note Text: [facility] FOLLOWUP/ESTABLISHED PATIENT VISIT Also followed by: [...] modifying therapy. Neuro-QoL Functions (higher=better functioning) Flowsheet [facility] Office Visit from 02/20/2024 in [facility] Office Visit from 07/01/2015 in [facility] Office Visit from 05/28/2014 in [facility] Upper Extremity Domain T Score 57 47.9 56.84 Lower Extremity Domain T Score 50 48.92 55.49 Cognitive Function Domain T Score 67 -- -- Positive Affect Well Being T Score -- -- -- Ability To Participate In Social Roles T Score 56 -- -- Satisfaction With Social Roles T Score 62 -- -- Neuro-QoL Symptoms (higher=worse symptoms) Flowsheet [facility] Office Visit from 02/20/2024 in [facility] Office Visit from 07/01/2015 in [facility] Office Visit from 05/28/2014 in [facility] Sleep Domain T Score 32 38.15 [...] without mention of status migrainosus, Multiple sclerosis ([facility]), Pulmonary infiltrate, and Sciatica. She has no past medical history of Atrial fibrillation ([facility]), Cancer ([facility]), Chronic obstructive pulmonary disease (COPD) ([facility]), Chronic renal insufficiency, Congestive heart failure ([facility]), Coronary artery disease, Depression, Diabetes ([facility]), Epilepsy ([facility]), Hypertension, Obstructive sleep apnea, Steroid long-term use, Stroke ([facility]), or Substance abuse ([facility]). has a current medication list which includes the following prescription(s): letrozole, latanoprost, cholecalciferol, calcium carbonate, sodium chloride, albuterol, ipratropium bromide, and nebulizer and compressor for neb. EXAM: BP 133/81 Pulse 83 Ht 165.1 cm (5' 5 ) Wt 59 kg (130 lb) BMI 21.63 kg/m? MSPT Results Flowsheet [facility] Office Visit from 12/11/2015 in [facility] Office Visit from 07/01/2015 in [facility] Office Visit from 05/28/2014 in [facility] Processing Speed Total Number Correct -- [...] 5 Biceps 5 5 Triceps 5 5 Workforce Management Coordinator 5 5 Dorsal interossei 5 5 Lower extremit (more content not included)... [facility] 02-20-2024 History of Present illness Narrative Images from the original note were not included. [facility] FOLLOWUP/ESTABLISHED PATIENT VISIT Also followed by: [...] modifying therapy. Neuro-QoL Functions (higher=better functioning) Flowsheet [facility] Office Visit from 02/20/2024 in [facility] Office Visit from 07/01/2015 in [facility] Office Visit from 05/28/2014 in [facility] Upper Extremity Domain T Score 57 47.9 56.84 Lower Extremity Domain T Score 50 48.92 55.49 Cognitive Function Domain T Score 67 -- -- Positive Affect Well Being T Score -- -- -- Ability To Participate In Social Roles T Score 56 -- -- Satisfaction With Social Roles T Score 62 -- -- Neuro-QoL Symptoms (higher=worse symptoms) Flowsheet [facility] Office Visit from 02/20/2024 in [facility] Office Visit from 07/01/2015 in [facility] Office Visit from 05/28/2014 in [facility] Sleep Domain T Score 32 38.15 [...] without mention of status migrainosus, Multiple sclerosis ([facility]), Pulmonary infiltrate, and Sciatica. She has no past medical history of Atrial fibrillation ([facility]), Cancer ([facility]), Chronic obstructive pulmonary disease (COPD) ([facility]), Chronic renal insufficiency, Congestive heart failure ([facility]), Coronary artery disease, Depression, Diabetes ([facility]), Epilepsy ([facility]), Hypertension, Obstructive sleep apnea, Steroid long-term use, Stroke ([facility]), or Substance abuse ([facility]). has a current medication list which includes the following prescription(s): letrozole, latanoprost, cholecalciferol, calcium carbonate, sodium chloride, albuterol, ipratropium bromide, and nebulizer and compressor for neb. EXAM: BP 133/81 Pulse 83 Ht 165.1 cm (5' 5 ) Wt 59 kg (130 lb) BMI 21.63 kg/m MSPT Results Flowsheet [facility] Office Visit from 12/11/2015 in [facility] Office Visit from 07/01/2015 in [facility] Office Visit from 05/28/2014 in [facility] Processing Speed Total Number Correct -- [...] 5 Biceps 5 5 Triceps 5 5 Workforce Management Coordinator 5 5 Dorsal interossei 5 5 Lower [...] this time Ángel Zendejas MD Neuroimmunology Fellow, Y 5 [facility] for Multiple Sclerosis Patient seen and evaluated. She has long-standing multiple sclerosis but has been clinically stable for many years, without evidence for active inflammation. Although a brain MRI could be considered now, I think it's unlikely to change our current recommendations to remain off multiple sclerosis disease modifying therapy. Chris Baum MD cc: Brianna Yanez MD, [address] [place] [id number] documented in this encounter [facility] 12-04-2023 Hospital Discharge instructions Follow Up Care 12/04/2023 15:23:41 With:Sylvain RICE, BRENNAN Mello, ONC Address: When: Unknown Comments:Continue taking letrozole or Femara once daily.Continue calcium and vitamin D.Continue taking Fosamax once a week for the osteoporosis.CBC and CMP labs in 6 months and return in 6 months. [facility] 11-07-2023 Note [facility] 09-04-2023 Hospital Discharge instructions Follow Up Care 09/04/2023 15:35:12 With:Sondra FIELDS, Muna Fuentes, ONC Address: [facility] [address] [place] [phone] When: Unknown Comments:continue alendronate weekly and letrozole dailydiagnostic mamm in (quality control tech raw materials will order)cmp in 3mofollow-up [place] [facility] [place] [facility] 09-04-2023 Hospital Discharge instructions Patient Education 09/04/2023 [...] including vitamins, herbs, eye drops, creams, and [id number] medicines. Any medical conditions you have. How [...] Total protein: ?Premature : 4.2 7.6 g/dL. ?[place]: 4.6 7.4 g/dL. ?: 6 6.7 g/dL. ?Child: 6.2 8 g/dL. Albumin: ?Premature : 3 4.2 g/dL. ?: 3.5 5.4 g/dL. [...] provider. Document Revised: 03/26/2021 Document Reviewed: 03/26/2021 [employer] Patient Education 2022 [employer]. Follow Up Care 05/22/2023 14:57:40 With:Sylvain RICE, Neftali Ling, MED, ONC Address: When: Unknown Comments:Start Actonel 35 mg once a week with full glass of water in am in upright position, again only once a week.Continue Femara once daily.Calcium 500 mg twice daily.Continue vitamin D 2000 units daily.Labs in 3 months including CBC with differential, CMP, myeloma labs.Return in 3 months. [facility] 07-27-2023 Note [facility] 07-19-2023 Note [facility] 07-13-2023 Note REAL ESTATE LISTING CONSULTANT: L breast and LN 20/25 fx + 5. Vitals WNL. Rad site brisk, no open areas. Reviewed proper skin care, pt verbalizes understanding. Pt. Denies any pain. No further concerns at this time. [facility] 07-13-2023 Note [facility] 06-27-2023 Note [facility] 06-27-2023 Note [facility] 06-22-2023 Note [facility] 06-22-2023 Note REAL ESTATE LISTING CONSULTANT NOTE: Emeli is accompanied by Aamir. Pt has completed / fx RT to Left Breast/LN. Pt denies pain. Respirations are unlabored, O2 sat 95% RA. Pt is cleansing treatment area with antibacterial soap daily and moisturizer as directed. [facility] 05-25-2023 Note [facility] 05-25-2023 Note [facility] 05-01-2023 Hospital Discharge instructions Follow Up Care 05/01/2023 10:39:18 With:Neftali Narayan Address: [address] [phone] Business (1) When: Unknown Comments:Proceed with radiation oncology consult and adjuvant radiation once recommended by them.LFTS and Bone density scan now.Start Femara 2.5 mg once daily one week after completing the radiation to the left breast.Start calcium 500 mg one pill twice daily.Start vitamin D 2000 units daily.LFTs 4 weeks after starting Femara and RTC then. [facility] 04-25-2023 Hospital Discharge instructions Follow Up Care 04/25/2023 12:37:04 With:Neftali Narayan Address: [address] [phone] Business (1) When: Unknown Comments:The plan will need to do Oncotype DX scoreReferral to radiation oncology for evaluation for need for adjuvant radiation. Return in 2 to 3 weeks for oncotype DX results [facility] 01-03-2022 Note PROCEDURE: XR FOOT R T MIN 3 VIEWS HISTORY: Cellulitis ; acute second toe pain COMPARISON: None. FINDINGS: BONES:No fracture, acute abnormality, or significant arthropathy. SOFT TISSUES:No visible soft tissue swelling. EFFUSION:None visible. OTHER: Negative. IMPRESSION: 1. No appreciable bone or soft tissue abnormality to account for patient's symptoms. Electronically authenticated by: LUCIEN BONILLA Date: 2022-01-03 17:34 [facility] Evaluation + Plan note Future Appointments Appointment Date:03/01/2023 09:00:00 AM Scheduled Provider: Location:.MAMMOGRAM Appointment Type:MA Needle Loc (FT) Appointment Date:03/01/2023 11:00:00 AM Scheduled Provider: Location:.NUCLEAR MED Appointment Type:NM Lymphoscintigraphy (FT) Appointment Date:03/01/2023 12:00:00 PM Scheduled Provider: Location:[facility] Appointment Type:Surgery FT Appointment Date:03/01/2023 02:00:00 PM Scheduled Provider: Location:.MAMMOGRAM Appointment Type:MA Diagnostic (FT) Appointment Date:03/13/2023 03:00:00 PM Scheduled Provider:Lauro Simon MD Location:[facility] Appointment Type:GS Post Op 15 Future Scheduled TestsMA Breast Needle Loc w/ Guidance, Left 03/01/23NM Lymphoscintigraphy 03/01/23MA Mamm Diag w/CAD if perf and 3D LT 03/01/23 [facility] Evaluation + Plan note Future Appointments Appointment Date:03/22/2023 09:00:00 AM Scheduled Provider: Location:.MAMMOGRAM Appointment Type:MA Needle Loc (FT) Appointment Date:03/22/2023 10:00:00 AM Scheduled Provider: Location:.NUCLEAR MED Appointment Type:NM Lymphoscintigraphy (FT) Appointment Date:03/22/2023 01:00:00 PM Scheduled Provider: Location:[facility] Appointment Type:Surgery FT Appointment Date:03/22/2023 03:00:00 PM Scheduled Provider: Location:.MAMMOGRAM Appointment Type:MA Diagnostic (FT) Appointment Date:04/03/2023 02:00:00 PM Scheduled Provider:Lauro Simon MD Location:[facility] Appointment Type: Post Op 15 Future Scheduled TestsMA Breast Needle Loc w/ Guidance, Left /01/06NM Lymphoscintigraphy 03/22/23MA Mamm Diag w/CAD if perf and 3D LT 03/22/23 [facility] Evaluation + Plan note Future Appointments Appointment Date:04/03/2023 02:00:00 PM Scheduled Provider:Lauro Simon MD Location:[facility] Appointment Type: Post Op 15 [facility] Evaluation + Plan note Future Appointments Appointment Date:05/22/2023 02:00:00 PM Scheduled Provider: Location:.ONCOLOGY Appointment Type:ONC Office Visit 30 (FT) Appointment Date:07/24/2023 03:00:00 PM Scheduled Provider:Lauro Simon MD Location:[facility] Appointment Type:[address] Evaluation + Plan note Future Appointments Appointment Date:07/24/2023 03:00:00 PM Scheduled Provider:Lauro Simon MD Location:[facility] Appointment Type:[place] [address] Appointment Date:08/14/2023 02:30:00 PM Scheduled Provider: Location:.ONCOLOGY Appointment Type:ONC Office Visit 30 (FT) Future Scheduled TestsHepatic Function Panel 08/07/23BD Bone Density DEXA 05/23/23 [facility] Evaluation + Plan note Future Appointments Appointment Date:07/24/2023 03:00:00 PM Scheduled Provider:Lauro Simon MD Location:[facility] Appointment Type:[facility] Appointment Date:08/14/2023 02:30:00 PM Scheduled Provider: Location:.ONCOLOGY Appointment Type:ONC Office Visit 30 (FT) Future Scheduled TestsHepatic Function Panel 08/07/23 [facility] Evaluation + Plan note Future Appointments Appointment Date:08/14/2023 02:30:00 PM Scheduled Provider: Location:FT.ONCOLOGY Appointment Type:ONC Office Visit 30 (FT) Appointment Date:11/06/2023 03:00:00 PM Scheduled Provider:Lauro Simon MD Location:[facility] Appointment Type:[place] [address] Future Scheduled TestsHepatic Function Panel 08/07/23 [facility] Evaluation + Plan note Future Appointments Appointment Date:09/04/2023 02:30:00 PM Scheduled Provider:Neftali Narayan MD Location:FT.ONCOLOGY Appointment Type:ONC Office Visit 30 (FT) Appointment Date:11/06/2023 03:00:00 PM Scheduled Provider:Lauro Simon MD Location:[facility] Appointment Type: Established 15 [facility] Evaluation + Plan note Future Appointments Appointment Date:11/06/2023 03:00:00 PM Scheduled Provider:Lauro Simon MD Location:[facility] Appointment Type: Established 15 Appointment Date:12/04/2023 02:30:00 PM Scheduled Provider:Neftali Narayan MD Location:FT.ONCOLOGY Appointment Type:ONC Office Visit 30 (FT) Future Scheduled TestsIFE and PE, Serum 12/03/23Immunoglobs. A/E/G/M 12/03/23Free K+L Lt Chains,Qn,S 12/03/23CBC w/ Auto Diff 12/03/23Comprehensive Metabolic Panel 12/03/23 [facility] Evaluation + Plan note Future Appointments Appointment Date:12/04/2023 02:30:00 PM Scheduled Provider:Neftali Narayan MD Location:FT.ONCOLOGY Appointment Type:ONC Office Visit 30 (FT) Appointment Date:02/05/2024 03:00:00 PM Scheduled Provider:Lauro Simon MD Location:[facility] Appointment Type: Established 15 Future Scheduled TestsIFE and PE, Serum 12/03/23Immunoglobs. A/E/G/M 12/03/23Free K+L Lt Chains,Qn,S 12/03/23CBC w/ Auto Diff 12/03/23Comprehensive Metabolic Panel 12/03/23 [facility] Surgery [place] Evaluation + Plan note Future Appointments Appointment Date:12/04/2023 02:30:00 PM Scheduled Provider:Neftali Narayan MD Location:.ONCOLOGY Appointment Type:ONC Office Visit 30 (FT) Appointment Date:02/05/2024 03:00:00 PM Scheduled Provider:Lauro Simon MD Location:[facility] Appointment Type: Established 15 Diagnostic Tests PendingIFE and PE, Serum 11/20/23Immunoglobs. A/E/G/M 11/20/23Free K+L Lt Chains,Qn,S 11/20/23 [facility] Evaluation + Plan note Future Appointments Appointment Date:02/05/2024 03:00:00 PM Scheduled Provider:Lauro Simon MD Location:[facility] Appointment Type:[place] [address] Appointment Date:03/04/2024 03:30:00 PM Scheduled Provider:Neftali Narayan MD Location:FT.ONCOLOGY Appointment Type:ONC Office Visit 30 (FT) Future Scheduled TestsComprehensive Metabolic Panel 02/26/24 [facility] Evaluation + Plan note Future Appointments Appointment Date:03/11/2024 03:00:00 PM Scheduled Provider:Neftali Narayan MD Location:FT.ONCOLOGY Appointment Type:ONC Office Visit 30 (FT) Appointment Date:05/27/2024 03:00:00 PM Scheduled Provider:Lauro Simon MD Location:[facility] Appointment Type:[address] General Surgery [place] Evaluation + Plan note Future Appointments Appointment Date:05/27/2024 03:00:00 PM Scheduled Provider:Lauro Simon MD Location:[facility] Appointment Type:[place] [address] Appointment Date:09/02/2024 03:20:00 PM Scheduled Provider:Neftali Narayan MD Location:FT.ONCOLOGY Appointment Type:ONC Office Visit 20 (FT) Future Scheduled TestsCBC w/ Auto Diff 09/11/24Comprehensive Metabolic Panel 09/11/24 [facility] Evaluation note Diagnosis Multiple sclerosis (HCC)- Primary Multiple sclerosis [facility] N[facility] No data available for this section [facility] No data available for this section [facility] No data available for this section [facility] Summary Purpose Family History No Family [...] section and content) DATE CREATED AUTHOR 01/01/2022 [facility] Me dical Specialist DATE CREATED AUTHOR AUTHOR'S ORGANIZ ATION 12/23/2022 [facility] DATE CREATED AUTHOR AUTHOR'S ORGANIZ ATION 02/22/2024 [facility] DATE CREATED AUTHOR AUTHOR'S ORGANIZ ATION 02/28/2024 [facility] DATE CREATED AUTHOR AUTHOR'S ORGANIZ ATION 03/03/2024 [facility] DATE CREATED AUTHOR AUTHOR'S ORGANIZ ATION 03/05/2024 [facility] dical Specialists EPIC DATE CREATED AUTHOR AUTHOR'S ORGANIZ ATION 03/13/2024 [facility] DATE CREATED AUTHOR AUTHOR'S ORGANIZ ATION 03/26/2024 [facility] Patient Care team informatio n (unrecognized section and content) Lead Based Paint Technician Relationship Specialty Start Date End Date Brianna Yanez MD PCP - General Family Medicine 09/09/10 Source Comments (unrecognize d section and content) In the event this informatio n is protected by the Federal Confidentiality of Alcohol and Drug Abuse Patient Records regulations: The Federal rules restrict any use of the information to criminally investigate or prosecute any alcohol or drug abuse patient.[facility] Reason for Visit (unrecogniz ed section and [...] BE BASED ON THE PRIMARY CLINICAL RECORDS. [facility]. provides no warranty or guarantee of the accuracy or completeness of information in this document.
[2024-03-26] MEDS: 0.9 % SODIUM CHLORIDE 1,000 ML 2000 ML IV (23:50)
[2024-03-26] MEDS: LORAZEPAM 2 MG/ML VIAL IV (23:58)
--- NOTE | 2024-03-27 00:05 | ED.SOB1 ---
HPI - SOB/Dyspnea General Chief Complaint: Shortness of Breath/Dyspnea Stated Complaint: COUGHING BLOOD Time Seen by Provider: 03/26/24 23:52 History of Present Illness HPI Narrative: patient presents carried in by family bleeding from her airway. Discharged today from [facility] after admission for Bronchial airway bleed. She takes Eliquis patient arrives unresponsive with agonal respirations. RA pulse ox 46 palpable radial pulse Related Data Home Medications ?Medication ?Instructions ?Recorded ?Confirmed benzonatate 200 mg capsule 200 mg PO TID 03/24/23 03/30/23 cholecalciferol (vitamin D3) 50 50 mcg PO DAILY 03/24/23 03/08/24 mcg (2,000 unit) capsule latanoprost 0.005 % eye drops 1 drp ophthalmic (eye) DAILY 03/24/23 03/08/24 sodium chloride 0.9 % for 3 ml inhalation Q8H 03/24/23 03/08/24 nebulization alendronate 70 mg tablet 70 mg PO QWEEK 03/08/24 03/08/24 calcium 500 mg tablet 500 mg PO DAILY 03/08/24 03/08/24 letrozole 2.5 mg tablet 2.5 mg PO DAILY 03/08/24 03/08/24 Allergies Allergy/AdvReac Type Severity Reaction Status Date / Time No Known Drug Allergies Allergy Verified 03/27/24 00:19 Review of Systems ROS Status of ROS unobtainable due to mental status [facility] Medical History (Updated 03/27/24 @ 00:44 by Roberto Verdin MD) Chronic cough ?R05.3 - Chronic cough (ICD-10) Breast cancer ?C50.919 - Malignant neoplasm of unspecified site of unspecified female breast (ICD-10) Mucus plugging of bronchi ?T17.500A - Unspecified foreign body in bronchus causing asphyxiation, initial encounter (ICD-10) Fungal infection ?B49 - Unspecified mycosis (ICD-10) COVID-19 ?U07.1 - COVID-19 (ICD-10) GERD (gastroesophageal reflux disease) ?K21.9 - Gastro-esophageal reflux disease without esophagitis (ICD-10) Dextroscoliosis ?M41.80 - Other forms of scoliosis, site unspecified (ICD-10) Multiple sclerosis ?G35 - Multiple sclerosis (ICD-10) Neurogenic bladder ?N31.9 - Neuromuscular dysfunction of bladder, unspecified (ICD-10) Migraines ?G43.909 - Migraine, unspecified, not intractable, without status migrainosus (ICD-10) Paralysis of vocal cords ?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 - Paralysis of vocal cords and larynx, unspecified (ICD-10) Pericardial effusion ?I31.39 - Other pericardial effusion (noninflammatory) (ICD-10) Bronchiectasis ?J47.9 - Bronchiectasis, uncomplicated (ICD-10) Surgical History (Updated 03/08/24 @ 13:16 by Alisa Dorantes NP) H/O lumpectomy ?Z98.890 - Other specified postprocedural states (ICD-10) History of breast biopsy ?Z98.890 - Other specified postprocedural states (ICD-10) History of bronchoscopy ?Z98.890 - Other specified postprocedural states (ICD-10) H/O dilation and curettage ?Z98.890 - Other specified postprocedural states (ICD-10) Previous section ?Z98.891 - History of uterine scar from previous surgery (ICD-10) Family History (Updated 03/24/23 @ 11:21 by Carrol Rizvi RN) Other Blood clot in vein Family history of diabetes mellitus Respiratory disease Social History (Updated 03/14/24 @ 06:36 by Rhoda Wagoner) Within the past year, how often did you have a drink containing alcohol: never Score interpretation: A score less than 3 is consistent with normal alcohol consumption. Smoking status: Never smoker Second hand tobacco smoke exposure: Yes Non-prescribed substance use: denies use Previous occupational history: retired Known occupational exposures/hazards: No Highest level of school completed/degree received: high school graduate Exam Constitutional Vital Signs, click to edit/add: Last Vital Signs Pulse 120 H 03/27/24 00:22 Resp 24 H 03/27/24 00:22 BP 123/78 03/27/24 00:08 Pulse Ox 45 L 03/27/24 00:08 O2 Del Method Mechanical Ventilator 03/27/24 00:22 FiO2 100 03/27/24 00:22 Orientation/consciousness: Yes obtunded HENMT Common normals: normocephalic and head/scalp atraumatic Chest Other: diminished breath sounds on right . no obvious wheezes or rhonchi on left Respiratory Other: agonal Cardio Rate: tachycardic GI Common normals: Normal to inspection, nondistended, normoactive bowel sounds present and soft to palpation Extremity Other: no deformity of her extremities Neuro Other: obtunded Course Vital Signs Vital signs: Vital Signs Pulse Rate 135 H 03/27/24 00:08 Respiratory Rate 0 L 03/27/24 00:08 Blood Pressure 123/78 03/27/24 00:08 Pulse Oximetry 45 L 03/27/24 00:08 Oxygen Delivery Method Room Air 03/27/24 00:08 Pulse Rate 120 H 03/27/24 00:22 Respiratory Rate 24 H 03/27/24 00:22 Blood Pressure 123/78 03/27/24 00:08 Pulse Oximetry 45 L 03/27/24 00:08 Oxygen Delivery Method Mechanical Ventilator 03/27/24 00:22 Fraction of Inspired Oxygen 100 03/27/24 00:22 MDM - SOB/Dyspnea MDM Narrative Medical decision making narrative: patient arrives bleeding from her airway unresponsive, agonal breaths. palpable radial pulse. Immediately suctioned and intubated. Despite intubation her pulse ox remained in low 80s. She was sedated with propofol and ativan because she was coughing with tube in place. Solumedrol and duoneb administered due to history of Bronchiectasis to see if this may help. Cxray with proper tube placement and bilat infiltrates patient placed on vent and suctioned repeatedly and a large blood clot was removed and her pulse ox improved into mid 90s. her BP dropped to 60 systolic despite receiving IV fluids propofol d/alona. patient giving ketamine for sedation and IV levophed ordered. BP has improved to 82 systolic and pulse ox remains 95%. [facility] now in room managing patient for transfer Lab Data Labs: Lab Results 03/26/24 03/27/24 Range/Units 23:40 00:04 WBC 15.6 H (4.0-11.0) 10^3/uL RBC 3.42 L (4.20-5.40) 10^6/uL Hgb 10.2 L (12.0-16.0) g/dL Hct 33.8 L (36.0-48.0) % MCV 98.8 (81.0-99.0) fL MCH 29.8 (26.7-34.0) pg MCHC 30.2 (29.9-35.2) g/dL RDW 15.2 H (11.0-15.0) % Plt Count 576 H (150-450) 10^3/uL MPV 10.6 (9.5-13.5) fL Seg Neuts % (Manual) 53.0 (43.0-75.0) Lymphocytes % (Manual) 34.0 (20.5-60.0) % Monocytes % (Manual) 10.0 (1.7-12.0) % Eosinophils % (Manual) 3.0 (0.9-7.0) % Basophils % (Manual) 0.0 L (0.2-2.0) % Neutrophils # (Manual) 8.26 H (1.4-6.5) 10^3/uL Lymphocytes # (Manual) 5.30 H (1.20-3.80) 10^3/uL Monocytes # (Manual) 1.56 H (0.30-0.80) 10^3/uL Eosinophils # (Manual) 0.46 (0.00-0.70) 10^3/uL Basophils # (Manual) 0.00 (0.00-0.10) 10^3/uL Puncture Site Rtfem ABG pH 7.215 L* (7.350-7.450) ABG pCO2 60.9 H* (35.0-45.0) mmHg ABG pO2 62.6 L (80.0-100.0) mmHg ABG HCO3 24.6 (22.0-26.0) mmol/L ABG O2 Saturation 84.6 % ABG Base Excess -3.2 L (-2.0-2.0) mmol/L Calin Test Positive (POSITIVE) O2 Liters/Min 15 FiO2 100 % Imaging Data Chest x-ray: Radiologist's impression: ITS Impressions Chest X-Ray 03/26/24 23:42 IMPRESSION: Bilateral multifocal pneumonia mostly lung bases greater on the right. Satisfactory endotracheal tube position. This report was generated with voice recognition software. Effort has been made to ensure accuracy of this report, however, occasional wording errors may persist. Please contact our office with any questions. Electronically authenticated by: RODOLFO BANG Date: 03/27/2024 00:25 Critical Care Time Critical Care Time Total Critical Care Time: 60 Discharge Plan Discharge Chief Complaint: Shortness of Breath/Dyspnea Clinical Impression: Acute respiratory failure with hypoxemia, Airway obstruction due to foreign body Patient Disposition: [facility] Mode of Transportation: [facility] Discharge Date/Time: 03/27/24 01:15 Procedures ED Procedure Instructions Procedures Procedures: patient intubated on first attempt with size # 7 tube using #3 straight blade. no complications. Positive color CO2 change
[2024-03-27 00:08] VITALS: BP 123/78; PULSE 135; O2SAT 45; BMI 19.5
[2024-03-27 00:10] LABS: Allen Test POSITIVE (POSITIVE); Base Excess ABG -3.2 mmol/L (-2.0-2.0); HCO3 ABG 24.6 mmol/L (22.0-26.0); Oxygen Saturation ABG 84.6 %; PO2 ABG 62.6 mmHg (80.0-100.0)
[2024-03-27 00:11] LABS: Fractionated Inspired Oxygen 100 %; Liters per Minute 15; O2 Mode PPV; Puncture Site RTFEM
[2024-03-27 00:12] LABS: ABG PCO2 60.9 mmHg (35.0-45.0); pH ABG 7.215 (7.350-7.450)
[2024-03-27 00:15] VITALS: PULSE 120
[2024-03-27 00:22] VITALS: PULSE 120
[2024-03-27] MEDS: IPRATROPIUM/ALBUTEROL SULFATE 3 ML AMPUL.NEB IH (00:22)
[2024-03-27] MEDS: METHYLPREDNISOLONE SOD SUCC PF 125 MG/2 ML VIAL IVP (00:23)
[2024-03-27] MEDS: KETAMINE HCL 500 MG/5 ML VIAL 50 MG IV (00:35)
[2024-03-27 00:48] LABS: Hematocrit 33.8 % (36.0-48.0); Hemoglobin 10.2 g/dL (12.0-16.0); Mean Corpuscular HGB Conc 30.2 g/dL (29.9-35.2); Mean Corpuscular Hemoglobin 29.8 pg (26.7-34.0); Mean Corpuscular Volume 98.8 fL (81.0-99.0); Mean Platelet Volume 10.6 fL (9.5-13.5); Platelet Count 576 10^3/uL (150-450); Red Blood Count 3.42 10^6/uL (4.20-5.40); Red Cell Distribution Width 15.2 % (11.0-15.0); White Blood Count 15.6 10^3/uL (4.0-11.0)
[2024-03-27] MEDS: NOREPINEPHRINE BITARTRATE/D5W 4 MG/250 ML PREMIX 37.5 MG IV (00:49)
--- NOTE | 2024-03-27 01:20 | PC.NURSE ---
Patient was brought into the ED being carried by her son. They had called the police who then called the ED to inform us that the patient would be arriving. They pulled up by private vehicle to the ambulance bay, honking the car horn. Staff met patient and family at the doors where patient was then carried in by son, blood was coming out of her mouth and she appeared to not be breathing. Patient was carried by son to room 6 in the ED. Patient's son and were shouting at staff, screaming orders at everyone, son states that he is a medic and begins to go through all the drawers looking for things. Dr. Verdin was in the room the entire time, the situation was being handled appropriately by staff members, respiratory was in the room and security asked the family to step out so we could care for the patient. at 2336 Etomidate was given and at 2338 Dr. Verdin successfully intubated the patient. dalton catheter was inserted Propofol drip started at 0001, BP started to drop, second liter of fluids started with pressure bag and propofol drip stopped at 0030. IV push Ketamine given at 0035 and levophed drip started at 0049 at 10mcg/minute. BP responded to Levo and fluids.. [facility] arrived at 0055, report given by Dr. Verdin, myself and respiratory. Nursing report called to Ronel CRAMER at [facility] at 0119
[2024-03-27 01:37] LABS: Eosinophils Absolute Manual 0.46 10^3/uL (0.00-0.70); Monocytes Absolute Manual 1.56 10^3/uL (0.30-0.80); Segmented Neut Absolute Manual 8.26 10^3/uL (1.4-6.5)
--- NOTE | 2024-03-27 01:56 | ECG_ITS ---
[facility] Test Date: 2024-03-27 Pat Name: MIRIAM DE PAZ Department: Room: - Gender: Female Disbursement Clerk: : 1960 Requested By: [id number] Order Number: [id number] Reading MD: DAMI MCKOY Measurements Intervals Garfield Rate: 109 P: 90 VA: 114 QRS: 86 QRSD: 90 T: 270 QT: 330 QTc: 394 Interpretive Statements 1120 Sinus tachycardia 2210 Short VA interval 2420 RSR (QR) in lead V1/V2, consistent with right ventricular conduction delay [address] depression 4664 Twave abnormality, possible inferior ischemia 9150 abnormal ECG Electronically Signed On 03-28-2024 6:42:37 EDT by DAMI MCKOY
== END 2024-03-27 01:15 | disposition short-term general hospital (02) ==
PROVIDERS: Emergency Provider Internal Medicine; PCP Family Medicine
DX: J96.01 Acute respiratory failure with hypoxia (principal); Z79.01 Long term (current) use of anticoagulants; R40.4 Transient alteration of awareness; T17.900A Unspecified foreign body in respiratory tract, part unspecified causing asphyxiation, initial encounter; W44.9XXA Unspecified foreign body entering into or through a natural orifice, initial encounter; J47.0 Bronchiectasis with acute lower respiratory infection; J18.9 Pneumonia, unspecified organism; R04.2 Hemoptysis
CPT/HCPCS: 31500; 31720; 36415; 36600; 71045; 82805; 85007; 85027; 93005; 94002; 94640; 96365; 96375; 99285; J2060; J2250; J2704; J2919

== ENCOUNTER 2024-04-04 12:04 | Outpatient (OUT) | payer MEDICARE, OTHER, SELFPAY ==
--- NOTE | 2024-04-04 12:10 | US_ITS ---
[facility] [place] [id number] Patient Name: MIRIAM DE PAZ MRN: [id number] date: 1960 Sex: F Assigned Patient Location: LAB Current Patient Location: LAB Accession/Order Number: [id number] Exam Date: 04/04/2024 12:18 Report Date: 04/04/2024 13:38 At the request of: BRIANNA YANEZ Procedure: US venous doppler LE BI CLINICAL DATA: Bilateral leg edema. PROCEDURE: Bilateral lower extremity venous duplex ultrasound TECHNIQUE: Rowland-scale, color flow, and waveform spectral analysis was performed of the bilateral lower extremities. FINDINGS: The bilateral common femoral, profunda femoral, femoral, and popliteal veins were compressible. The saphenous veins were compressible. No venous thrombosis was seen. The veins fill with color Doppler. Augmentation was normal. US/US venous doppler LE BI IMPRESSION: 1. No acute lower extremity deep venous thrombosis. 2. No superficial venous thrombosis. Electronically authenticated by: Charlie ALCANTAR Date: 04/04/2024 13:38
--- OUTSIDE RECORDS SUMMARY | 2024-04-04 12:18 | XMS_ITS | CCD ---
Author Organization [facility] Care Team Providers Care Shelter Case Manager Name Role Phone RENATA ., DR REED Admitting Unavailable HOY ., [...] Physician Brianna Yanez MD Primary Care Provider [phone] SELF Referring Unavailable CHRIS BAUM Attending Unavailable BRIANNA YANEZ Primary Care Unavailable Demboske, Muna Gina Attending Unavailable Sondra, Muna Fuentes Admitting Unavailable RINVINCE, MICHAEL E Referring Unavailable Lauro Simon. Attending Unavailable Al-Marrawi, Masoodd Yaser Admitting Unavailabl e Al-Marrawi, Masoodd Yaser Attending Unavailabl e Al-Marrawi, Masoodd Yaser Attending Unavailabl e Al-Marrawi, Mhd Yaser Admitting Unavailabl e MoLauro kaufman. Attending Unavailable Al-Marrawi, Masoodd Yaser Attending Unavailabl e Al-Marrawi, Mhd Yaser Referring Unavailabl e Al-Marrawi, Mhd Yaser Admitting Unavailabl e Muna Amaro Attending Unavailable Sondra, Muna Fuentes Admitting Unavailable Al-Marrawi, Masoodd Yaser Attending Unavailabl e Al-Marrawi, Mhd Yaser Admitting Unavailabl e Al-Marrawi, Mhd Yaser Attending Unavailabl e Al-Marrawi, Mhd Yaser Attending Unavailabl e Al-Marrawi, Mhd Yaser Attending Unavailabl e Lauro Simon Referring Unavailable Lauro Simon Attending Unavailable Al-Marrasendy, Neftali Ling Attending Unavailabl e Muna Amaro Attending Unavailable Tee Lobato Consulting Unavailable Lauro Simon Attending Unavailable Lauro Simon Referring Unavailable Lauro Simon Admitting Unavailable Tee Lobato Consulting Unavailable CheryleTee Consulting Unavailable CheryleTee Consulting Unavailable CheryleTee Consulting Unavailable CheryleTee Consulting Unavailable CheryleTee Consulting Unavailable CheryleTee Consulting Unavailable CheryleTee Consulting Unavailable CheryleTee Consulting Unavailable Lauro Simon Attending Unavailable MoLauro kaufman Attending Unavailable Lauro Simon Attending Unavailable Lauro Simon Attending Unavailable ASSALY, RAGHEB Referring Unavailable HADZIAHMETOVIC, BESSYIHA Attending Unavaila ble ASSALY, RAGHEB Referring Unavailable PIRKL, DEA Referring Unavailable HADZIAHMETOVIC, AMRIKA Attending Unavaila ble HADZIAHMETOVIC, MERSLUCIA Attending Unavaila ble YUSUF, LAURA Referring Unavailable YUSUF, LAURA Referring Unavailable ANIBAL, JO ANN Referring Unavailable JOSE, MIRRA Referring Unavailable ASSALY, RAGHEB Referring Unavailable ASSALY, RAGHEB Referring Unavailable ASSALY, RAGHEB Referring Unavailable YUSUF, LAURA Referring Unavailable HADZIAHMETOVIC, MERSIHA Referring Unavaila ble HADZIAHMETOVIC, MERSIHA Attending Unavaila ble FREDMAN, KELIN Attending Unavailable FREDMAN, KELIN Attending Unavailable HADZIAHMETOVIC, MERSIHA Attending Unavaila ble JOSE, MIRRA Referring Unavailable YUSUF, LAURA Referring Unavailable PIRKL, DEA Referring Unavailable CHACE, YOUNGSOOK Referring Unavailable CHACE, YOUNGSOOK Referring Unavailable CHACE, YOUNGSOOK Referring Unavailable CHACE, YOUNGSOOK Referring Unavailable ASSALY, RAGHEB Referring Unavailable ASSALY, RAGHEB Referring Unavailable ASSALY, RAGHEB Referring Unavailable ASSALY, RAGHEB Referring Unavailable SIMON, BECKIE T Referring Unavailable OMBALLI, MOHAMED Admitting Unavailable BUFFY, HANI Attending Unavailable SAMSA, ULI Referring Unavailable ASSALY, RAGHEB Admitting Unavailable HORANI, OTIS Attending Unavailable ASSALY, RAGHEB Referring Unavailable PROVIDER, UNKNOWN Attending Unavailable PROVIDER, UNKNOWN Admitting Unavailable Allergies Allergy Classification Reported Allergen(s) Allergy Type Date of Onset Reaction(s) Facility (2 sources) No Known Medication Allergies; Translations: [No Known Medication Allergies] Propensity to adverse reactions (disorder) [facility] Repository (1 source) ALLERGIES NOT ON FILE; Translations: [ALLERGIES NOT ON FILE] Propensity to adverse reactions (disorder) [facility] Repository Medications Current Medications Medication Drug [...] 2 spray(s) nasal route twice daily Ipratropium Sheridan (ATROVENT) 0.03 % nasal spray Indications: Chronic vasomotor rhinitis Use 2 Sprays in each nostril twice daily. for up to three(3) weeks 1 Bottle 1 07/19/2017 Active letrozole 2.5 mg oral tablet (12 sources) Aromatase Inhibitor Start: 12-04-2023 take 1 tablet by mouth once daily letrozole 2.5 mg Tab 2.5 mg = 1 tab(s), Oral, Daily, # 90 tab(s), Refills(s) 1, Pharmacy: [facility]/pharmacy #[id number], 165, cm, 12/04/23 14:36:00 EDT, Height/Length Dosing, 54.8, kg, 12/04/23 14:36:00 EDT, Weight Dosing Start Date: 12/04/23 Status: Ordered Start: 05-22-2023 End: 11-18-2023 take 1 tablet by mouth once daily Femara 2.5 mg Tab 2.5 mg = 1 tab(s), Oral, Daily, Do not start until 1 week after radiation is finished., X 30 day(s), # 30 tab(s), Refills(s) 5, Pharmacy: [facility]/pharmacy #[id number], 165, cm, 05/22/23 14:14:00 EST, [...] taking., # 12 tab(s), Refills(s) 1, Pharmacy: [facility]/pharmacy #[id number], 165, cm, 09/04/23 14:48:00 EST, [...] day, # 12 tab(s), Refills(s) 1, Pharmacy: [facility]/pharmacy #[id number], 165, cm, 12/04/23 14:36:00 EDT, [...] day, # 12 tab(s), Refills(s) 1, Pharmacy: [facility]/pharmacy #[id number], 165, cm, 09/04/23 14:48:00 EST, [...] malignant neoplasm of breast] Onset: 08-07-2023 Episodic Cardiac dysrhythmias (2 sources) Tachycardia, unspecified; Translations: [Tachycardia, unspecified] Onset: 03-27-2024 Episodic Chronic obstructive pulmonary disease and bronchiectasis (20 sources) Bronchiectasis, uncomplicated; Translations: [Chronic obstructive pulmonary disease, unspecified] Onset: 09-14-2016 Chronic Multiple sclerosis (20 sources) Multiple sclerosis; Translations: [Multiple sclerosis] Onset: [...] disease (2 sources) Hemoptysis; Translations: [Hemoptysis] Onset: 03-27-2024 Episodic Other screening for suspected conditions (not [...] Test Name Value Interpretation Reference Range Facility 36on 04-02-2024 36 No one answered the phone call. Normal [facility] Telephoneon 04-02-2024 Telephone Normal [facility] 30on 04-01-2024 30 Normal [facility] BASIC METABOLIC PANELon 03-17 Anion gap [Moles/Vol] 13 mmol/L Normal 7-20 [facility] Comment on above: Performed By: #### L [id number] ####[facility] (BEAKER)[address] [facility] [place] [address] Calcium [Mass/Vol] 9.3 mg/dL Normal 8.6-10.3 [facility] Comment on above: Performed By: #### L [id number] ####[facility] (BEAKER)[address] [facility] [place] [address] Chloride [Moles/Vol] 103 mmol/L Normal 98-107 [facility] Comment on above: Performed By: #### L [id number] ####[facility] (BEAKER)[address] [facility] [place] [address] CO2 [Moles/Vol] 28 mmol/L Normal 21-31 [facility] Comment on above: Performed By: #### L [id number] ####[facility] (BEAKER)[address] [place] [address] Creatinine [Mass/Vol] 0.52 mg/dL Low 0.60-1.20 [facility] Comment on above: Performed By: #### L [id number] ####[facility] ([facility])[address] [place] [address] GLOMERULAR FILTRATION RATE ML/MIN/1.73 SQ M.PREDICTED 103.0 mL/min/1.73m*2 Normal >60.0 [facility] Comment on above: Result Comment: The [facility]???s estimated glomerular filtration rate (eGFR) will no [...] of individuals. Performed By: #### L [id number] ####[facility] ([facility])[address] [place] [address] Glucose [Mass/Vol] 84 mg/dL Normal 70-100 [facility] Comment on above: Performed By: #### L [id number] ####[facility] ([facility])[address] [place] [address] Potassium [Moles/Vol] 3.8 mmol/L Normal 3.5-5.1 [facility] Comment on above: Performed By: #### L [id number] ####[facility] ([facility])[address] [place] [address] Sodium [Moles/Vol] 140 mmol/L Normal 136-145 [facility] Comment on above: Performed By: #### L [id number] ####[facility] ([facility])[address] [place] [address] Urea nitrogen [Mass/Vol] 34 mg/dL High 7-25 [facility] Comment on above: Performed By: #### L [id number] ####[facility] ([facility])[address] [place] [address] UREA NITROGEN/CREATININE (MASS RATIO) IN SER/PLAS 65.4 Normal [facility] Comment on above: Performed By: #### L [id number] ####[facility] ([facility])[address] [place] [address] CBC WITH AUTO DIFFERENTIALon 04-01-2024 Basophils (Bld) [#/Vol] 0.04 10*3/uL Normal 0.00-0.20 [facility] Comment on above: Performed By: #### L [id number] ####[facility] ([facility])[address] [place] [address] Basophils/100 WBC (Bld) 0.8 % Normal 0.0-1.0 [facility] Comment on above: Performed By: #### L [id number] ####[facility] ([facility])[address] [place] [address] Eosinophils (Bld) [#/Vol] 0.17 10*3/uL Normal 0.00-0.50 [facility] Comment on above: Performed By: #### L [id number] ####[facility] ([facility])[address] [place] [address] Eosinophils/100 WBC (Bld) 3.4 % Normal 0.0-6.0 [facility] Comment on above: Performed By: #### L [id number] ####[facility] ([facility])[address] [place] [address] Erythrocyte distribution width (RBC) [Ratio] 15.7 % High 11.5-15.0 [facility] Comment on above: Performed By: #### L [id number] ####[facility] ([facility])[address] [place] [address] ERYTHROCYTE MEAN CORPUSCULAR HEMOGLOBIN CONCENTRATION (G/DL) BY AUTOMATED 30.8 g/dL Low 32.0-35.0 [facility] Comment on above: Performed By: #### L [id number] ####[facility] ([facility])[address] [place] [address] Hematocrit (Bld) [Volume fraction] 31.8 % Low 36.0-48.0 [facility] Comment on above: Performed By: #### L [id number] ####[facility] (BEAKER)[address] [place] [address] Hemoglobin (Bld) [Mass/Vol] 9.8 g/dL Low 12.0-15.0 [facility] Comment on above: Performed By: #### L [id number] ####[facility] (BEAKER)[address] [place] [address] Immature granulocytes (Bld) [#/Vol] 0.04 10*3/uL Normal 0.00-0.20 [facility] Comment on above: Performed By: #### L [id number] ####[facility] (BEAKER)[address] [place] [address] Immature granulocytes/100 WBC (Bld) 0.8 % Normal 0.0-1.0 [facility] Comment on above: Performed By: #### L [id number] ####[facility] (BEAKER)[address] [place] [address] Lymphocytes (Bld) [#/Vol] 1.49 10*3/uL Normal 1.20-4.00 [facility] Comment on above: Performed By: #### L [id number] ####[facility] (BEAKER)[address] [place] [address] Lymphocytes/100 WBC (Bld) 30.2 % Normal 20.0-45.0 [facility] Comment on above: Performed By: #### L [id number] ####[facility] (BEAKER)[address] [place] [address] MCH (RBC) [Entitic mass] 29.6 pg Normal 27.0-33.0 [facility] Comment on above: Performed By: #### L [id number] ####[facility] (BEAKER)[address] [place] [address] MCV (RBC) [Entitic vol] 96.1 fL Normal 82.0-98.0 [facility] Comment on above: Performed By: #### L [id number] ####[facility] (BEAKER)[address] [place] [address] Monocytes (Bld) [#/Vol] 0.46 10*3/uL Normal 0.10-1.00 [facility] Comment on above: Performed By: #### L [id number] ####[facility] (BEAKER)[address] [place] [address] Monocytes/100 WBC (Bld) 9.3 % Normal 5.0-12.0 [facility] Comment on above: Performed By: #### L [id number] ####[facility] (AKER)[address] [place] [address] Neutrophils (Bld) [#/Vol] 2.74 10*3/uL Normal 1.60-7.60 [facility] Comment on above: Performed By: #### L [id number] ####[facility] ([facility])[address] [place] [address] Neutrophils/100 WBC (Bld) 55.5 % Normal 40.0-72.0 [facility] Comment on above: Performed By: #### L [id number] ####[facility] ([facility])[address] [place] [address] NRBC (PER 100 WBCS) BY AUTOMATED COUNT 0.0 % Normal 0 [facility] Comment on above: Performed By: #### L [id number] ####[facility] ([facility])[address] [place] [address] PLATELETS (10*3/UL) IN BLOOD AUTOMATED COUNT 393 10*3/uL Normal 150-400 [facility] Comment on above: Performed By: #### L [id number] ####[facility] ([facility])[address] [address] RBC (Bld) [#/Vol] 3.31 10*6/uL Low 3.80-5.00 [facility] Comment on above: Performed By: #### L [id number] ####[facility] (BEAKER)[address] [place] [address] WBC (Bld) [#/Vol] 4.94 10*3/uL Normal 4.00-10.60 [facility] Comment on above: Performed By: #### L [id number] ####[facility] (BEAKER)[address] [place] [address] CONSULTon 04-01-2024 CONSULT Normal [facility] DSon 04-01-2024 DS Normal [facility] MAGNESIUMon 04-01-2024 Magnesium [Mass/Vol] 1.9 mg/dL Normal 1.9-2.7 [facility] Comment on above: Performed By: #### L [id number] ####[facility] (BEAKER)[address] [place] [address] PHOSPHORUSon 04-01-2024 Magnesium [Mass/Vol] 3.1 mg/dL Normal 2.5-5.0 [facility] Comment on above: Performed By: #### L [id number] ####[facility] (BEAKER)[address] [place] [address] BASIC METABOLIC PANELon 03-17 Anion gap [Moles/Vol] 12 mmol/L Normal 7-20 [facility] Comment on above: Performed By: #### L [id number] ####[facility] (BEAKER)[address] [place] [address] Calcium [Mass/Vol] 9.1 mg/dL Normal 8.6-10.3 [facility] Comment on above: Performed By: #### L [id number] ####[facility] (BEAKER)[address] [place] [address] Chloride [Moles/Vol] 102 mmol/L Normal 98-107 [facility] Comment on above: Performed By: #### L [id number] ####[facility] (BEAKER)[address] [place] [address] CO2 [Moles/Vol] 28 mmol/L Normal 21-31 [facility] Comment on above: Performed By: #### L [id number] ####[facility] ([facility])[address] [place] [address] Creatinine [Mass/Vol] 0.52 mg/dL Low 0.60-1.[address] [facility] Comment on above: Performed By: #### L [id number] ####[facility] ([facility])[address] [place] [address] GLOMERULAR FILTRATION RATE ML/MIN/1.73 SQ M.PREDICTED 103.0 mL/min/1.73m*2 Normal >60.0 [facility] Comment on above: Result Comment: The [facility]???s estimated glomerular filtration rate (eGFR) will no [...] of individuals. Performed By: #### L [id number] ####[facility] ([facility])[address] [place] [address] Glucose [Mass/Vol] 103 mg/dL High 70-100 [facility] Comment on above: Performed By: #### L [id number] ####[facility] ([facility])[address] [place] [address] Potassium [Moles/Vol] 4.0 mmol/L Normal 3.5-5.[address] [facility] Comment on above: Performed By: #### L [id number] ####[facility] ([facility])[address] [place] [address] Sodium [Moles/Vol] 138 mmol/L Normal 136-145 [facility] Comment on above: Performed By: #### L [id number] ####[facility] ([facility])[address] [place] [address] Urea nitrogen [Mass/Vol] 28 mg/dL High 7-25 [facility] Comment on above: Performed By: #### L [id number] ####[facility] (BEAKER)[address] [place] [address] UREA NITROGEN/CREATININE (MASS RATIO) IN SER/PLAS 53.8 Normal [facility] Comment on above: Performed By: #### L [id number] ####[facility] ([facility])[address] [place] [address] CBC WITH AUTO DIFFERENTIALon 03-31-2024 Basophils (Bld) [#/Vol] 0.05 10*3/uL Normal 0.00-0.20 [facility] Comment on above: Performed By: #### L [id number] ####[facility] (BEAKER)[address] [place] [address] Basophils/100 WBC (Bld) 0.8 % Normal 0.0-1.0 [facility] Comment on above: Performed By: #### L [id number] ####[facility] (BEAKER)[address] [place] [address] Eosinophils (Bld) [#/Vol] 0.16 10*3/uL Normal 0.00-0.50 [facility] Comment on above: Performed By: #### L [id number] ####[facility] (BEAKER)[address] [place] [address] Eosinophils/100 WBC (Bld) 2.7 % Normal 0.0-6.0 [facility] Comment on above: Performed By: #### L [id number] ####[facility] (BEAKER)[address] [place] [address] Erythrocyte distribution width (RBC) [Ratio] 15.4 % High 11.5-15.0 [facility] Comment on above: Performed By: #### L [id number] ####[facility] (BEAKER)[address] [place] [address] ERYTHROCYTE MEAN CORPUSCULAR HEMOGLOBIN CONCENTRATION (G/DL) BY AUTOMATED 31.4 g/dL Low 32.0-35.0 [facility] Comment on above: Performed By: #### L [id number] ####[facility] (BEAKER)[address] [place] [address] Hematocrit (Bld) [Volume fraction] 30.6 % Low 36.0-48.0 [facility] Comment on above: Performed By: #### L [id number] ####[facility] (BEAKER)[address] [place] [address] Hemoglobin (Bld) [Mass/Vol] 9.6 g/dL Low 12.0-15.0 [facility] Comment on above: Performed By: #### L [id number] ####[facility] (BEAKER)[address] [place] [address] Immature granulocytes (Bld) [#/Vol] 0.03 10*3/uL Normal 0.00-0.20 [facility] Comment on above: Performed By: #### L [id number] ####[facility] (BEAKER)[address] [place] [address] Immature granulocytes/100 WBC (Bld) 0.5 % Normal 0.0-1.0 [facility] Comment on above: Performed By: #### L [id number] ####[facility] (BEAKER)[address] [place] [address] Lymphocytes (Bld) [#/Vol] 1.18 10*3/uL Low 1.20-4.00 [facility] Comment on above: Performed By: #### L [id number] ####[facility] (BEAKER)[address] [place] [address] Lymphocytes/100 WBC (Bld) 20.0 % Normal 20.0-45.0 [facility] Comment on above: Performed By: #### L [id number] ####[facility] (BEAKER)[address] [place] [address] MCH (RBC) [Entitic mass] 29.6 pg Normal 27.0-33.0 [facility] Comment on above: Performed By: #### L [id number] ####[facility] ([facility])[address] [place] [address] MCV (RBC) [Entitic vol] 94.4 fL Normal 82.0-98.0 [facility] Comment on above: Performed By: #### L [id number] ####[facility] ([facility])[address] [place] [address] Monocytes (Bld) [#/Vol] 0.61 10*3/uL Normal 0.10-1.00 [facility] Comment on above: Performed By: #### L [id number] ####[facility] ([facility])[address] [place] [address] Monocytes/100 WBC (Bld) 10.4 % Normal 5.0-12.0 [facility] Comment on above: Performed By: #### L [id number] ####[facility] ([facility])[address] [place] [address] Neutrophils (Bld) [#/Vol] 3.86 10*3/uL Normal 1.60-7.60 [facility] Comment on above: Performed By: #### L [id number] ####[facility] ([facility])[address] [place] [address] Neutrophils/100 WBC (Bld) 65.6 % Normal 40.0-72.0 [facility] Comment on above: Performed By: #### L [id number] ####[facility] ([facility])[address] [place] [address] NRBC (PER 100 WBCS) BY AUTOMATED COUNT 0.0 % Normal 0 [facility] Comment on above: Performed By: #### L [id number] ####[facility] ([facility])[address] [place] [address] PLATELETS (10*3/UL) IN BLOOD AUTOMATED COUNT 373 10*3/uL Normal 150-400 [facility] Comment on above: Performed By: #### L [id number] ####[facility] ([facility])[address] [place] [address] RBC (Bld) [#/Vol] 3.24 10*6/uL Low 3.80-5.00 [facility] Comment on above: Performed By: #### L [id number] ####[facility] ([facility])[address] [address] WBC (Bld) [#/Vol] 5.89 10*3/uL Normal 4.00-10.60 [facility] Comment on above: Performed By: #### L [id number] ####[facility] ([facility])[address] [place] [address] MAGNESIUMon 03-31-2024 Magnesium [Mass/Vol] 1.9 mg/dL Normal 1.9-2.7 [facility] Comment on above: Performed By: #### L [id number] ####[facility] ([facility])[address] [place] [address] Magnesium [Mass/Vol] 1.8 mg/dL Low 1.9-2.7 [facility] Comment on above: Performed By: #### L [id number] ####[facility] ([facility])[address] [place] [address] NURSNOTEon 03-31-2024 NURSNOTE [facility] NURSNOTE Normal [facility] PHOSPHORUSon 03-31-2024 Magnesium [Mass/Vol] 3.2 mg/dL Normal 2.5-5.0 [facility] Comment on above: Performed By: #### L [id number] ####[facility] ([facility])[address] [place] [address] 30on 03-30-2024 30 Normal [facility] BASIC METABOLIC PANELon 03-17 Anion gap [Moles/Vol] 14 mmol/L Normal 7-[address] [facility] Comment on above: Performed By: #### L [id number] ####[facility] ([facility])[address] [place] [address] Calcium [Mass/Vol] 9.2 mg/dL Normal 8.6-10.3 [facility] Comment on above: Performed By: #### L [id number] ####[facility] ([facility])[address] [place] [address] Chloride [Moles/Vol] 101 mmol/L Normal 98-107 [facility] Comment on above: Performed By: #### L [id number] ####[facility] ([facility])[address] [place] [address] CO2 [Moles/Vol] 27 mmol/L Normal 21-31 [facility] Comment on above: Performed By: #### L [id number] ####[facility] ([facility])[address] [place] [address] Creatinine [Mass/Vol] 0.44 mg/dL Low 0.60-1.20 [facility] Comment on above: Performed By: #### L [id number] ####[facility] ([facility])[address] [place] [address] GLOMERULAR FILTRATION RATE ML/MIN/1.73 SQ M.PREDICTED 107.3 mL/min/1.73m*2 Normal >60.0 [facility] Comment on above: Result Comment: The [facility]???s estimated glomerular filtration rate (eGFR) will no [...] of individuals. Performed By: #### L [id number] ####[facility] ([facility])[address] [place] [address] Glucose [Mass/Vol] 103 mg/dL High 70-100 [facility] Comment on above: Performed By: #### L [id number] ####[facility] (BEAKER)[address] [place] [address] Potassium [Moles/Vol] 3.8 mmol/L Normal 3.5-5.[address] [facility] Comment on above: Performed By: #### L [id number] ####[facility] (BEAKER)[address] [place] [address] Sodium [Moles/Vol] 138 mmol/L Normal 136-145 [facility] Comment on above: Performed By: #### L [id number] ####[facility] ([facility])[address] [place] [address] Urea nitrogen [Mass/Vol] 15 mg/dL Normal 7-25 [facility] Comment on above: Performed By: #### L [id number] ####[facility] ([facility])[address] [place] [address] UREA NITROGEN/CREATININE (MASS RATIO) IN SER/PLAS 34.1 Normal [facility] Comment on above: Performed By: #### L [id number] ####[facility] ([facility])[address] [place] [address] CBC WITH AUTO DIFFERENTIALon 03-30-2024 Basophils (Bld) [#/Vol] 0.03 10*3/uL Normal 0.00-0.20 [facility] Comment on above: Performed By: #### L [id number] ####[facility] ([facility])[address] [place] [address] Basophils/100 WBC (Bld) 0.4 % Normal 0.0-1.0 [facility] Comment on above: Performed By: #### L [id number] ####[facility] ([facility])[address] [place] [address] Eosinophils (Bld) [#/Vol] 0.03 10*3/uL Normal 0.00-0.50 [facility] Comment on above: Performed By: #### L [id number] ####[facility] ([facility])[address] [place] [place] [address] Eosinophils/100 WBC (Bld) 0.4 % Normal 0.0-6.0 [facility] Comment on above: Performed By: #### L [id number] ####[facility] ([facility])[address] [place] [address] Erythrocyte distribution width (RBC) [Ratio] 14.6 % Normal 11.5-15.0 [facility] Comment on above: Performed By: #### L [id number] ####[facility] ([facility])[address] [place] [address] ERYTHROCYTE MEAN CORPUSCULAR HEMOGLOBIN CONCENTRATION (G/DL) BY AUTOMATED 32.4 g/dL Normal 32.0-35.0 [facility] Comment on above: Performed By: #### L [id number] ####[facility] ([facility])[address] [place] [address] Hematocrit (Bld) [Volume fraction] 29.6 % Low 36.0-48.0 [facility] Comment on above: Performed By: #### L [id number] ####[facility] ([facility])[address] [place] [address] Hemoglobin (Bld) [Mass/Vol] 9.6 g/dL Low 12.0-15.0 [facility] Comment on above: Performed By: #### L [id number] ####[facility] ([facility])[address] [place] [address] Immature granulocytes (Bld) [#/Vol] 0.04 10*3/uL Normal 0.00-0.20 [facility] Comment on above: Performed By: #### L [id number] ####[facility] ([facility])[address] [place] [address] Immature granulocytes/100 WBC (Bld) 0.5 % Normal 0.0-1.0 [facility] Comment on above: Performed By: #### L [id number] ####[facility] ([facility])[address] [place] [address] Lymphocytes (Bld) [#/Vol] 1.16 10*3/uL Low 1.20-4.00 [facility] Comment on above: Performed By: #### L [id number] ####[facility] ([facility])[address] [place] [address] Lymphocytes/100 WBC (Bld) 14.4 % Low 20.0-45.0 [facility] Comment on above: Performed By: #### L [id number] ####[facility] ([facility])[address] [place] [address] MCH (RBC) [Entitic mass] 30.1 pg Normal 27.0-33.0 [facility] Comment on above: Performed By: #### L [id number] ####[facility] ([facility])[address] [place] [address] MCV (RBC) [Entitic vol] 92.8 fL Normal 82.0-98.0 [facility] Comment on above: Performed By: #### L [id number] ####[facility] ([facility])[address] [place] [address] Monocytes (Bld) [#/Vol] 0.83 10*3/uL Normal 0.10-1.00 [facility] Comment on above: Performed By: #### L [id number] ####[facility] ([facility])[address] [place] [address] Monocytes/100 WBC (Bld) 10.3 % Normal 5.0-12.0 [facility] Comment on above: Performed By: #### L [id number] ####[facility] ([facility])[address] [place] [address] Neutrophils (Bld) [#/Vol] 5.97 10*3/uL Normal 1.60-7.60 [facility] Comment on above: Performed By: #### L [id number] ####[facility] ([facility])[address] [place] [address] Neutrophils/100 WBC (Bld) 74.0 % High 40.0-72.0 [facility] Comment on above: Performed By: #### L [id number] ####[facility] ([facility])[address] [place] [address] NRBC (PER 100 WBCS) BY AUTOMATED COUNT 0.0 % Normal 0 [facility] Comment on above: Performed By: #### L [id number] ####[facility] ([facility])[address] [place] [address] PLATELETS (10*3/UL) IN BLOOD AUTOMATED COUNT 394 10*3/uL Normal 150-400 [facility] Comment on above: Performed By: #### L [id number] ####[facility] ([facility])[address] [place] [address] RBC (Bld) [#/Vol] 3.19 10*6/uL Low 3.80-5.00 [facility] Comment on above: Performed By: #### L [id number] ####[facility] ([facility])[address], [place] [address] WBC (Bld) [#/Vol] 8.06 10*3/uL Normal 4.00-10.60 [facility] Comment on above: Performed By: #### L [id number] ####[facility] ([facility])[address] [place] [address] HEMOGLOBIN AND HEMATOCRIT, B LOODon 03-30-2024 Hematocrit (Bld) [Volume fraction] 29.9 % Low 36.0-48.0 [facility] Comment on above: Performed By: #### L [id number] ####[facility] ([facility])[address] [place] [address] Hemoglobin (Bld) [Mass/Vol] 9.7 g/dL Low 12.0-15.0 [facility] Comment on above: Performed By: #### L [id number] ####[facility] ([facility])[address] [place] [address] MAGNESIUMon 03-30-2024 Magnesium [Mass/Vol] 2.1 mg/dL Normal 1.9-2.7 [facility] Comment on above: Performed By: #### L [id number] ####[facility] ([facility])[address] [place] [address] PHOSPHORUSon 03-30-2024 Magnesium [Mass/Vol] 3.4 mg/dL Normal 2.5-5.0 [facility] Comment on above: Performed By: #### L [id number] ####[facility] ([facility])[address] [place] [address] BASIC METABOLIC PANELon 03-17 Anion gap [Moles/Vol] 16 mmol/L Normal 7-20 [facility] Comment on above: Performed By: #### L [id number] ####[facility] ([facility])[address] [place] [address] Calcium [Mass/Vol] 9.5 mg/dL Normal 8.6-10.3 [facility] Comment on above: Performed By: #### L [id number] ####[facility] ([facility])[address] [place] [address] Chloride [Moles/Vol] 101 mmol/L Normal 98-107 [facility] Comment on above: Performed By: #### L [id number] ####[facility] ([facility])[address] [place] [address] CO2 [Moles/Vol] 26 mmol/L Normal 21-31 [facility] Comment on above: Performed By: #### L [id number] ####[facility] ([facility])[address] [place] [address] Creatinine [Mass/Vol] 0.48 mg/dL Low 0.60-1.20 [facility] Comment on above: Performed By: #### L [id number] ####[facility] ([facility])[address] [place] [address] GLOMERULAR FILTRATION RATE ML/MIN/1.73 SQ M.PREDICTED 105.0 mL/min/1.73m*2 Normal >60.0 [facility] Comment on above: Result Comment: The [facility]???s estimated glomerular filtration rate (eGFR) will no [...] of individuals. Performed By: #### L [id number] ####[facility] ([facility])[address] [place] [address] Glucose [Mass/Vol] 183 mg/dL High 70-100 [facility] Comment on above: Performed By: #### L [id number] ####[facility] ([facility])[address] [place] [address] Potassium [Moles/Vol] 3.9 mmol/L Normal 3.5-5.[address] [facility] Comment on above: Performed By: #### L [id number] ####[facility] ([facility])[address] [place] [address] Sodium [Moles/Vol] 139 mmol/L Normal 136-145 [facility] Comment on above: Performed By: #### L [id number] ####[facility] ([facility])[address] [place] [address] Urea nitrogen [Mass/Vol] 13 mg/dL Normal 7-25 [facility] Comment on above: Performed By: #### L [id number] ####[facility] ([facility])[address] [place] [address] UREA NITROGEN/CREATININE (MASS RATIO) IN SER/PLAS 27.1 Normal [facility] Comment on above: Performed By: #### L [id number] ####[facility] ([facility])[address] [place] [address] Anion gap [Moles/Vol] 10 mmol/L Normal 7-[address] [facility] Comment on above: Performed By: #### L [id number] ####[facility] ([facility])[address] [place] [address] Calcium [Mass/Vol] 8.5 mg/dL Low 8.6-10.3 [facility] Comment on above: Performed By: #### L [id number] ####[facility] ([facility])[address] [place] [address] Chloride [Moles/Vol] 107 mmol/L Normal 98-107 [facility] Comment on above: Performed By: #### L [id number] ####[facility] ([facility])[address] [place] [address] CO2 [Moles/Vol] 26 mmol/L Normal 21-31 [facility] Comment on above: Performed By: #### L [id number] ####[facility] ([facility])[address] [place] [address] Creatinine [Mass/Vol] 0.41 mg/dL Low 0.60-1.20 [facility] Comment on above: Performed By: #### L [id number] ####[facility] ([facility])[address] [place] [address] GLOMERULAR FILTRATION RATE ML/MIN/1.73 SQ M.PREDICTED 109.1 mL/min/1.73m*2 Normal >60.0 [facility] Comment on above: Result Comment: The [facility]???s estimated glomerular filtration rate (eGFR) will no [...] of individuals. Performed By: #### L [id number] ####[facility] ([facility])[address] [place] [address] Glucose [Mass/Vol] 86 mg/dL Normal 70-100 [facility] Comment on above: Performed By: #### L [id number] ####[facility] ([facility])[address] [place] [address] Potassium [Moles/Vol] 3.8 mmol/L Normal 3.5-5.[address] [facility] Comment on above: Performed By: #### L [id number] ####[facility] ([facility])[address] [place] [address] Sodium [Moles/Vol] 139 mmol/L Normal 136-145 [facility] Comment on above: Performed By: #### L [id number] ####[facility] ([facility])[address] [place] [address] Urea nitrogen [Mass/Vol] 14 mg/dL Normal 7-25 [facility] Comment on above: Performed By: #### L [id number] ####[facility] ([facility])[address] [place] [address] UREA NITROGEN/CREATININE (MASS RATIO) IN SER/PLAS 34.1 Normal [facility] Comment on above: Performed By: #### L [id number] ####[facility] ([facility])[address] [place] [address] CBC WITH AUTO DIFFERENTIALon 03-29-2024 Basophils (Bld) [#/Vol] 0.03 10*3/uL Normal 0.00-0.20 [facility] Comment on above: Performed By: #### L [id number] ####[facility] ([facility])[address] [place] [address] Basophils/100 WBC (Bld) 0.7 % Normal 0.0-1.0 [facility] Comment on above: Performed By: #### L [id number] ####[facility] ([facility])[address] [place] [address] Eosinophils (Bld) [#/Vol] 0.19 10*3/uL Normal 0.00-0.50 [facility] Comment on above: Performed By: #### L [id number] ####[facility] ([facility])[address] [place] [address] Eosinophils/100 WBC (Bld) 4.3 % Normal 0.0-6.0 [facility] Comment on above: Performed By: #### L [id number] ####[facility] ([facility])[address] [place] [address] Erythrocyte distribution width (RBC) [Ratio] 15.2 % High 11.5-15.0 [facility] Comment on above: Performed By: #### L [id number] ####[facility] ([facility])[address] [place] [address] ERYTHROCYTE MEAN CORPUSCULAR HEMOGLOBIN CONCENTRATION (G/DL) BY AUTOMATED 31.6 g/dL Low 32.0-35.0 [facility] Comment on above: Performed By: #### L [id number] ####[facility] ([facility])[address] [place] [address] Hematocrit (Bld) [Volume fraction] 24.7 % Low 36.0-48.0 [facility] Comment on above: Performed By: #### L [id number] ####[facility] ([facility])[address] [place] [address] Hemoglobin (Bld) [Mass/Vol] 7.8 g/dL Low 12.0-15.0 [facility] Comment on above: Performed By: #### L [id number] ####[facility] ([facility])[address] [place] [address] Immature granulocytes (Bld) [#/Vol] 0.02 10*3/uL Normal 0.00-0.20 [facility] Comment on above: Performed By: #### L [id number] ####[facility] ([facility])[address] [place] [address] Immature granulocytes/100 WBC (Bld) 0.4 % Normal 0.0-1.0 [facility] Comment on above: Performed By: #### L [id number] ####[facility] ([facility])[address] [place] [address] Lymphocytes (Bld) [#/Vol] 0.87 10*3/uL Low 1.20-4.00 [facility] Comment on above: Performed By: #### L [id number] ####[facility] ([facility])[address] [place] [address] Lymphocytes/100 WBC (Bld) 19.5 % Low 20.0-45.0 [facility] Comment on above: Performed By: #### L [id number] ####[facility] ([facility]ER)[address] [place] [address] MCH (RBC) [Entitic mass] 29.3 pg Normal 27.0-33.0 [facility] Comment on above: Performed By: #### L [id number] ####[facility] ([facility]ER)[address] [place] [address] MCV (RBC) [Entitic vol] 92.9 fL Normal 82.0-98.0 [facility] Comment on above: Performed By: #### L [id number] ####[facility] ([facility])[address] [place] [address] Monocytes (Bld) [#/Vol] 0.49 10*3/uL Normal 0.10-1.00 [facility] Comment on above: Performed By: #### L [id number] ####[facility] ([facility])[address] [place] [address] Monocytes/100 WBC (Bld) 11.0 % Normal 5.0-12.0 [facility] Comment on above: Performed By: #### L [id number] ####[facility] ([facility])[address] [place] [address] Neutrophils (Bld) [#/Vol] 2.86 10*3/uL Normal 1.60-7.60 [facility] Comment on above: Performed By: #### L [id number] ####[facility] ([facility]ER)[address] [place] [address] Neutrophils/100 WBC (Bld) 64.1 % Normal 40.0-72.0 [facility] Comment on above: Performed By: #### L [id number] ####[facility] ([facility])[address] [place] [address] NRBC (PER 100 WBCS) BY AUTOMATED COUNT 0.0 % Normal 0 [facility] Comment on above: Performed By: #### L [id number] ####[facility] ([facility])[address] [address] PLATELETS (10*3/UL) IN BLOOD AUTOMATED COUNT 283 10*3/uL Normal 150-400 [facility] Comment on above: Performed By: #### L [id number] ####[facility] ([facility])[address] [place] [address] RBC (Bld) [#/Vol] 2.66 10*6/uL Low 3.80-5.00 [facility] Comment on above: Performed By: #### L [id number] ####[facility] ([facility])[address] [address] WBC (Bld) [#/Vol] 4.46 10*3/uL Normal 4.00-10.60 [facility] Comment on above: Performed By: #### L [id number] ####[facility] ([facility]ER)[address] [address] HEMOGLOBIN AND HEMATOCRIT, B LOODon 03-29-2024 Hematocrit (Bld) [Volume fraction] 32.2 % Low 36.0-48.0 [facility] Comment on above: Performed By: #### L [id number] ####[facility] ([facility]ER)[address], [place] [address] Hemoglobin (Bld) [Mass/Vol] 10.4 g/dL Low 12.0-15.0 [facility] Comment on above: Performed By: #### L [id number] ####[facility] ([facility]ER)[address] [place] [address] Hematocrit (Bld) [Volume fraction] 23.8 % Low 36.0-48.0 [facility] Comment on above: Performed By: #### L [id number] ####[facility] ([facility])[address] [address] Hemoglobin (Bld) [Mass/Vol] 7.8 g/dL Low 12.0-15.0 [facility] Comment on above: Performed By: #### L [id number] ####[facility] ([facility])[address] [address] Hematocrit (Bld) [Volume fraction] 25.2 % Low 36.0-48.0 [facility] Comment on above: Performed By: #### L [id number] ####[facility] ([facility])[address] [address] Hemoglobin (Bld) [Mass/Vol] 8.1 g/dL Low 12.0-15.0 [facility] Comment on above: Performed By: #### L [id number] ####[facility] ([facility])[address] [place] [address] MAGNESIUMon 03-29-2024 Magnesium [Mass/Vol] 1.8 mg/dL Low 1.9-2.7 [facility] Comment on above: Performed By: #### L [id number] ####[facility] ([facility])[address] [place] [address] Magnesium [Mass/Vol] 1.9 mg/dL Normal 1.9-2.7 [facility] Comment on above: Performed By: #### L [id number] ####[facility] ([facility])[address] [place] [address] PHOSPHORUSon 03-29-2024 Magnesium [Mass/Vol] 3.6 mg/dL Normal 2.5-5.0 [facility] Comment on above: Performed By: #### L [id number] ####[facility] (BEAKER)[address] [place] [address] BASIC METABOLIC PANELon 03-17 Anion gap [Moles/Vol] 9 mmol/L Normal 7-20 [facility] Comment on above: Performed By: #### L [id number] ####[facility] ([facility])[address] [place] [address] Calcium [Mass/Vol] 8.1 mg/dL Low 8.6-10.3 [facility] Comment on above: Performed By: #### L [id number] ####[facility] ([facility])[address] [place] [address] Chloride [Moles/Vol] 107 mmol/L Normal 98-107 [facility] Comment on above: Performed By: #### L [id number] ####[facility] ([facility])[address] [place] [address] CO2 [Moles/Vol] 26 mmol/L Normal 21-31 [facility] Comment on above: Performed By: #### L [id number] ####[facility] ([facility])[address] [place] [address] Creatinine [Mass/Vol] 0.47 mg/dL Low 0.60-1.20 [facility] Comment on above: Performed By: #### L [id number] ####[facility] ([facility])[address] [place] [address] GLOMERULAR FILTRATION RATE ML/MIN/1.73 SQ M.PREDICTED 105.6 mL/min/1.73m*2 Normal >60.0 [facility] Comment on above: Result Comment: The [facility]???s estimated glomerular filtration rate (eGFR) will no [...] of individuals. Performed By: #### L [id number] ####[facility] ([facility])[address] [place] [address] Glucose [Mass/Vol] 111 mg/dL High 70-100 [facility] Comment on above: Performed By: #### L [id number] ####[facility] ([facility])[address] [place] [address] Potassium [Moles/Vol] 3.8 mmol/L Normal 3.5-5.[address] [facility] Comment on above: Performed By: #### L [id number] ####[facility] ([facility])[address] [place] [address] Sodium [Moles/Vol] 138 mmol/L Normal 136-145 [facility] Comment on above: Performed By: #### L [id number] ####[facility] ([facility])[address] [place] [address] Urea nitrogen [Mass/Vol] 24 mg/dL Normal 7-25 [facility] Comment on above: Performed By: #### L [id number] ####[facility] ([facility])[address] [place] [address] UREA NITROGEN/CREATININE (MASS RATIO) IN SER/PLAS 51.1 Normal [facility] Comment on above: Performed By: #### L [id number] ####[facility] ([facility])[address] [place] [address] CBC WITH AUTO DIFFERENTIALon 03-28-2024 Basophils (Bld) [#/Vol] 0.05 10*3/uL Normal 0.00-0.20 [facility] Comment on above: Performed By: #### L [id number] ####[facility] ([facility])[address] [place] [address] Basophils/100 WBC (Bld) 0.6 % Normal 0.0-1.0 [facility] Comment on above: Performed By: #### L [id number] ####[facility] ([facility])[address] [place] [address] Eosinophils (Bld) [#/Vol] 0.11 10*3/uL Normal 0.00-0.50 [facility] Comment on above: Performed By: #### L [id number] ####[facility] (BEAKER)[address] [place] [address] Eosinophils/100 WBC (Bld) 1.3 % Normal 0.0-6.0 [facility] Comment on above: Performed By: #### L [id number] ####[facility] ([facility])[address] [place] [address] Erythrocyte distribution width (RBC) [Ratio] 15.4 % High 11.5-15.0 [facility] Comment on above: Performed By: #### L [id number] ####[facility] ([facility])[address] [place] [address] ERYTHROCYTE MEAN CORPUSCULAR HEMOGLOBIN CONCENTRATION (G/DL) BY AUTOMATED 32.0 g/dL Normal 32.0-35.0 [facility] Comment on above: Performed By: #### L [id number] ####[facility] ([facility])[address] [place] [address] Hematocrit (Bld) [Volume fraction] 25.3 % Low 36.0-48.0 [facility] Comment on above: Performed By: #### L [id number] ####[facility] (BEAKER)[address] [place] [address] Hemoglobin (Bld) [Mass/Vol] 8.1 g/dL Low 12.0-15.0 [facility] Comment on above: Performed By: #### L [id number] ####[facility] ([facility])[address] [place] [address] Immature granulocytes (Bld) [#/Vol] 0.04 10*3/uL Normal 0.00-0.20 [facility] Comment on above: Performed By: #### L [id number] ####[facility] ([facility]AKER)[address] [place] [address] Immature granulocytes/100 WBC (Bld) 0.5 % Normal 0.0-1.0 [facility] Comment on above: Performed By: #### L [id number] ####[facility] ([facility]AK[facility])[address] [place] [address] Lymphocytes (Bld) [#/Vol] 1.35 10*3/uL Normal 1.20-4.00 [facility] Comment on above: Performed By: #### L [id number] ####[facility] ([facility]AKER)[address] [place] [address] Lymphocytes/100 WBC (Bld) 15.9 % Low 20.0-45.0 [facility] Comment on above: Performed By: #### L [id number] ####[facility] ([facility]AKER)[address] [place] [address] MCH (RBC) [Entitic mass] 30.1 pg Normal 27.0-33.0 [facility] Comment on above: Performed By: #### L [id number] ####[facility] (BEAKER)[address] [place] [address] MCV (RBC) [Entitic vol] 94.1 fL Normal 82.0-98.0 [facility] Comment on above: Performed By: #### L [id number] ####[facility] (BEAKER)[address] [place] [address] Monocytes (Bld) [#/Vol] 0.83 10*3/uL Normal 0.10-1.00 [facility] Comment on above: Performed By: #### L [id number] ####[facility] (BEAKER)[address] [place] [address] Monocytes/100 WBC (Bld) 9.8 % Normal 5.0-12.0 [facility] Comment on above: Performed By: #### L [id number] ####[facility] (BEAKER)[address] [place] [address] Neutrophils (Bld) [#/Vol] 6.10 10*3/uL Normal 1.60-7.60 [facility] Comment on above: Performed By: #### L [id number] ####[facility] (BEAKER)[address] [address] Neutrophils/100 WBC (Bld) 71.9 % Normal 40.0-72.0 [facility] Comment on above: Performed By: #### L [id number] ####[facility] ([facility])[address] [address] NRBC (PER 100 WBCS) BY AUTOMATED COUNT 0.0 % Normal 0 [facility] Comment on above: Performed By: #### L [id number] ####[facility] ([facility])[address] [address] PLATELETS (10*3/UL) IN BLOOD AUTOMATED COUNT 397 10*3/uL Normal 150-400 [facility] Comment on above: Performed By: #### L [id number] ####[facility] ([facility])[address] [address] RBC (Bld) [#/Vol] 2.69 10*6/uL Low 3.80-5.00 [facility] Comment on above: Performed By: #### L [id number] ####[facility] ([facility])[address] [address] WBC (Bld) [#/Vol] 8.48 10*3/uL Normal 4.00-10.60 [facility] Comment on above: Performed By: #### L [id number] ####[facility] ([facility])[address] [address] CONSULTon 03-28-2024 CONSULT Normal [facility] HEMOGLOBIN AND HEMATOCRIT, B LOODon 03-28-2024 Hematocrit (Bld) [Volume fraction] 24.9 % Low 36.0-48.0 [facility] Comment on above: Performed By: #### L [id number] ####[facility] (BEAKER)[address] [address] Hemoglobin (Bld) [Mass/Vol] 7.9 g/dL Low 12.0-15.0 [facility] Comment on above: Performed By: #### L [id number] ####[facility] ([facility])[address] [place] [address] Hematocrit (Bld) [Volume fraction] 25.7 % Low 36.0-48.0 [facility] Comment on above: Performed By: #### L [id number] ####[facility] ([facility])[address] [place] [address] Hemoglobin (Bld) [Mass/Vol] 8.2 g/dL Low 12.0-15.0 [facility] Comment on above: Performed By: #### L [id number] ####[facility] ([facility])[address] [place] [address] MAGNESIUMon 03-28-2024 Magnesium [Mass/Vol] 1.9 mg/dL Normal 1.9-2.7 [facility] Comment on above: Performed By: #### L [id number] ####[facility] ([facility])[address] [place] [address] PHOSPHORUSon 03-28-2024 Magnesium [Mass/Vol] 3.0 mg/dL Normal 2.5-5.0 [facility] Comment on above: Performed By: #### L [id number] ####[facility] ([facility])[address] [place] [address] 30on 03-27-2024 30 Normal [facility] 30 Normal [facility] 30 Normal [facility] AFB CULTUREon 03-27-2024 AFB STAIN No acid fast bacilli seen Normal [facility] Comment on above: Performed By: #### L [id number] ####[facility] ([facility])[address] [place] [address] APTTon 03-27-2024 ACTIVATED PARTIAL THROMBOPLASTIN TIME IN PPP BY COAGULATION ASSAY 27.7 Seconds Normal 25.0-35.0 [facility] Comment on above: Result Comment: Clin ical significance of the APTT is questionable in the presence of heparin. Performed By: #### L [id number] ####[facility] ([facility])[address] [place] [address] ACTIVATED PARTIAL THROMBOPLASTIN TIME IN PPP BY COAGULATION ASSAY 31.3 Seconds Normal 25.0-35.0 [facility] Comment on above: Result Comment: Clin ical significance of the APTT is questionable in the presence of heparin. Performed By: #### L [id number] ####[facility] ([facility])[address] [place] [address] B-TYPE NATRIURETIC PEPTIDEon 03-27-2024 Natriuretic peptide B (Bld) [Mass/Vol] 53 pg/mL Normal 0-100 [facility] Comment on above: Performed By: #### L [id number] ####[facility] ([facility])[address] [place] [address] BASIC METABOLIC PANELon 03-17 Anion gap [Moles/Vol] 10 mmol/L Normal 7-20 [facility] Comment on above: Performed By: #### L [id number] ####[facility] ([facility])[address] [place] [address] Calcium [Mass/Vol] 8.2 mg/dL Low 8.6-10.3 [facility] Comment on above: Performed By: #### L [id number] ####[facility] ([facility])[address] [place] [address] Chloride [Moles/Vol] 106 mmol/L Normal 98-107 [facility] Comment on above: Performed By: #### L [id number] ####[facility] ([facility])[address] [place] [address] CO2 [Moles/Vol] 26 mmol/L Normal 21-31 [facility] Comment on above: Performed By: #### L [id number] ####[facility] (BEAKER)[address] [place] [address] Creatinine [Mass/Vol] 0.51 mg/dL Low 0.60-1.20 [facility] Comment on above: Performed By: #### L [id number] ####[facility] (BEAKER)[address] [place] [address] GLOMERULAR FILTRATION RATE ML/MIN/1.73 SQ M.PREDICTED 103.5 mL/min/1.73m*2 Normal >60.0 [facility] Comment on above: Result Comment: The [facility]???s estimated glomerular filtration rate (eGFR) will no [...] of individuals. Performed By: #### L [id number] ####[facility] ([facility])[address] [place] [address] Glucose [Mass/Vol] 103 mg/dL High 70-100 [facility] Comment on above: Performed By: #### L [id number] ####[facility] ([facility])[address] [place] [address] Potassium [Moles/Vol] 4.0 mmol/L Normal 3.5-5.1 [facility] Comment on above: Performed By: #### L [id number] ####[facility] ([facility])[address] [place] [address] Sodium [Moles/Vol] 138 mmol/L Normal 136-145 [facility] Comment on above: Performed By: #### L [id number] ####[facility] (BEAKER)[address] [place] [address] Urea nitrogen [Mass/Vol] 26 mg/dL High 7-25 [facility] Comment on above: Performed By: #### L [id number] ####[facility] ([facility])[address] [place] [address] UREA NITROGEN/CREATININE (MASS RATIO) IN SER/PLAS 51.0 Normal [facility] Comment on above: Performed By: #### L [id number] ####[facility] (BEAKER)[address] [place] [address] BLOOD CULTUREon 03-27-2024 Bacteria identified Cx Nom (Bld) No growth at 5 days Normal [facility] Comment on above: Performed By: #### L [id number] ####[facility] ([facility])[address] [place] [address] Order Comment: From a different site than #1. CALCIUM, IONIZEDon CALCIUM IONIZED (MMOL/L) IN BLOOD 1.24 mmol/L Normal 1.15-1.33 [facility] Comment on above: Performed By: #### C ALCIUM, IONIZED ####[facility] RESPIRATORY [id number] [place], [place] [address] CALCIUM IONIZED (MMOL/L) IN BLOOD 1.21 mmol/L Normal 1.15-1.33 [facility] Comment on above: Performed By: #### C ALCIUM, IONIZED ####[facility] RESPIRATORY [id number] [place], [place] [address] CBC WITH AUTO DIFFERENTIALon 03-27-2024 Basophils (Bld) [#/Vol] 0.04 10*3/uL Normal 0.00-0.20 [facility] Comment on above: Performed By: #### L [id number] ####[facility] (BEAKER)[address] [place] [address] Basophils/100 WBC (Bld) 0.2 % Normal 0.0-1.0 [facility] Comment on above: Performed By: #### L [id number] ####[facility] (BEAKER)[address] [place] [address] Eosinophils (Bld) [#/Vol] 0.02 10*3/uL Normal 0.00-0.50 [facility] Comment on above: Performed By: #### L [id number] ####[facility] (BEAKER)[address] [place] [address] Eosinophils/100 WBC (Bld) 0.1 % Normal 0.0-6.0 [facility] Comment on above: Performed By: #### L [id number] ####[facility] ([facility])[address] [place] [address] Erythrocyte distribution width (RBC) [Ratio] 15.1 % High 11.5-15.0 [facility] Comment on above: Performed By: #### L [id number] ####[facility] ([facility])[address] [place] [address] ERYTHROCYTE MEAN CORPUSCULAR HEMOGLOBIN CONCENTRATION (G/DL) BY AUTOMATED 30.1 g/dL Low 32.0-35.0 [facility] Comment on above: Performed By: #### L [id number] ####[facility] ([facility])[address] [place] [address] Hematocrit (Bld) [Volume fraction] 28.2 % Low 36.0-48.0 [facility] Comment on above: Performed By: #### L [id number] ####[facility] ([facility])[address] [place] [address] Hemoglobin (Bld) [Mass/Vol] 8.5 g/dL Low 12.0-15.0 [facility] Comment on above: Performed By: #### L [id number] ####[facility] ([facility])[address] [place] [address] Immature granulocytes (Bld) [#/Vol] 0.16 10*3/uL Normal 0.00-0.20 [facility] Comment on above: Performed By: #### L [id number] ####[facility] ([facility])[address] [place] [address] Immature granulocytes/100 WBC (Bld) 0.8 % Normal 0.0-1.0 [facility] Comment on above: Performed By: #### L [id number] ####[facility] ([facility])[address] [place] [address] Lymphocytes (Bld) [#/Vol] 0.37 10*3/uL Low 1.20-4.00 [facility] Comment on above: Performed By: #### L [id number] ####[facility] (BEAKER)[address] [place] [address] Lymphocytes/100 WBC (Bld) 1.9 % Low 20.0-45.0 [facility] Comment on above: Performed By: #### L [id number] ####[facility] (BEAKER)[address] [place] [address] MCH (RBC) [Entitic mass] 29.4 pg Normal 27.0-33.0 [facility] Comment on above: Performed By: #### L [id number] ####[facility] (BEAKER)[address] [place] [address] MCV (RBC) [Entitic vol] 97.6 fL Normal 82.0-98.0 [facility] Comment on above: Performed By: #### L [id number] ####[facility] (BEAKER)[address] [place] [address] Monocytes (Bld) [#/Vol] 0.31 10*3/uL Normal 0.10-1.00 [facility] Comment on above: Performed By: #### L [id number] ####[facility] (BEAKER)[address] [place] [address] Monocytes/100 WBC (Bld) 1.6 % Low 5.0-12.0 [facility] Comment on above: Performed By: #### L [id number] ####[facility] (BEAKER)[address] [place] [address] Neutrophils (Bld) [#/Vol] 18.90 10*3/uL High 1.60-7.60 [facility] Comment on above: Performed By: #### L [id number] ####[facility] (BEAKER)[address] [place] [address] Neutrophils/100 WBC (Bld) 95.4 % High 40.0-72.0 [facility] Comment on above: Performed By: #### L [id number] ####[facility] (BEAKER)[address] [place] [address] NRBC (PER 100 WBCS) BY AUTOMATED COUNT 0.0 % Normal 0 [facility] Comment on above: Performed By: #### L [id number] ####[facility] ([facility])[address] [place] [address] PLATELETS (10*3/UL) IN BLOOD AUTOMATED COUNT 399 10*3/uL Normal 150-400 [facility] Comment on above: Performed By: #### L [id number] ####[facility] ([facility])[address] [place] [address] RBC (Bld) [#/Vol] 2.89 10*6/uL Low 3.80-5.00 [facility] Comment on above: Performed By: #### L [id number] ####[facility] ([facility])[address] [address] WBC (Bld) [#/Vol] 19.80 10*3/uL High 4.00-10.60 [facility] Comment on above: Performed By: #### L [id number] ####[facility] ([facility])[address] [place] [address] COMPREHENSIVE METABOLIC PANE Flash 03-27-2024 Albumin [Mass/Vol] 3.2 g/dL Low 3.5-5.7 [facility] Comment on above: Performed By: #### L [id number] ####[facility] ([facility])[address] [place] [address] ALP [Catalytic activity/Vol] 43 U/L Normal 34-104 [facility] Comment on above: Performed By: #### L [id number] ####[facility] (BEAKER)[address] [place] [address] ALT [Catalytic activity/Vol] 11 U/L Normal 7-52 [facility] Comment on above: Performed By: #### L [id number] ####[facility] (BEAKER)[address] [place] [address] Anion gap [Moles/Vol] 10 mmol/L Normal 7-20 [facility] Comment on above: Performed By: #### L [id number] ####[facility] (BEAKER)[address] [place] [address] AST [Catalytic activity/Vol] 17 U/L Normal 13-39 [facility] Comment on above: Performed By: #### L [id number] ####[facility] (BEAKER)[address] [place] [address] Bilirubin [Mass/Vol] 0.4 mg/dL Normal 0.3-1.0 [facility] Comment on above: Performed By: #### L [id number] ####[facility] (BEAKER)[address] [place] [address] Calcium [Mass/Vol] 8.1 mg/dL Low 8.6-10.3 [facility] Comment on above: Performed By: #### L [id number] ####[facility] (BEAKER)[address] [place] [address] Chloride [Moles/Vol] 104 mmol/L Normal 98-107 [facility] Comment on above: Performed By: #### L [id number] ####[facility] (BEAKER)[address] [place] [address] CO2 [Moles/Vol] 26 mmol/L Normal 21-31 [facility] Comment on above: Performed By: #### L [id number] ####[facility] (BEAKER)[address] [place] [address] Creatinine [Mass/Vol] 0.54 mg/dL Low 0.60-1.20 [facility] Comment on above: Performed By: #### L [id number] ####[facility] (BEAKER)[address] [place] [address] GLOMERULAR FILTRATION RATE ML/MIN/1.73 SQ M.PREDICTED 102.1 mL/min/1.73m*2 Normal >60.0 [facility] Comment on above: Result Comment: The [facility]???s estimated glomerular filtration rate (eGFR) will no [...] of individuals. Performed By: #### L [id number] ####[facility] ([facility])[address] [place] [address] Glucose [Mass/Vol] 176 mg/dL High 70-100 [facility] Comment on above: Performed By: #### L [id number] ####[facility] ([facility])[address] [place] [address] Potassium [Moles/Vol] 4.4 mmol/L Normal 3.5-5.[address] [facility] Comment on above: Performed By: #### L [id number] ####[facility] ([facility])[address] [place] [address] Protein [Mass/Vol] 6.5 g/dL Normal 6.0-8.3 [facility] Comment on above: Performed By: #### L [id number] ####[facility] ([facility])[address] [place] [address] Sodium [Moles/Vol] 136 mmol/L Normal 136-145 [facility] Comment on above: Performed By: #### L [id number] ####[facility] ([facility])[address] [place] [address] Urea nitrogen [Mass/Vol] 34 mg/dL High 7-25 [facility] Comment on above: Performed By: #### L [id number] ####[facility] ([facility])[address] [place] [address] UREA NITROGEN/CREATININE (MASS RATIO) IN SER/PLAS 63.0 Normal [facility] Comment on above: Performed By: #### L [id number] ####[facility] (BEAKER)[address] [place] [address] FUNGAL CULTUREon 03-27-2024 FUNGAL SMEAR No yeast or fungal e lements seen Normal [facility] Comment on above: Performed By: #### L [id number] ####[facility] (BEAKER)[address] [place] [address] HEMOGLOBIN AND HEMATOCRIT, B LOODon 03-27-2024 Hematocrit (Bld) [Volume fraction] 22.1 % Low 36.0-48.0 [facility] Comment on above: Performed By: #### L [id number] ####[facility] (BEAKER)[address] [place] [address] Hemoglobin (Bld) [Mass/Vol] 6.9 g/dL Low 12.0-15.0 [facility] Comment on above: Performed By: #### L [id number] ####[facility] (BEAKER)[address] [place] [address] Hematocrit (Bld) [Volume fraction] 24.1 % Low 36.0-48.0 [facility] Comment on above: Performed By: #### L [id number] ####[facility] (BEAKER)[address] [place] [address] Hemoglobin (Bld) [Mass/Vol] 7.5 g/dL Low 12.0-15.0 [facility] Comment on above: Performed By: #### L [id number] ####[facility] (BEAKER)[address] [place] [address] Hematocrit (Bld) [Volume fraction] 24.4 % Low 36.0-48.0 [facility] Comment on above: Performed By: #### L [id number] ####[facility] (BEAKER)[address] [place] [address] Hemoglobin (Bld) [Mass/Vol] 7.6 g/dL Low 12.0-15.0 [facility] Comment on above: Performed By: #### L [id number] ####[facility] (BEAKER)[address] [place] [address] Hematocrit (Bld) [Volume fraction] 25.4 % Low 36.0-48.0 [facility] Comment on above: Performed By: #### L [id number] ####[facility] ([facility])[address] [address] Hemoglobin (Bld) [Mass/Vol] 8.0 g/dL Low 12.0-15.0 [facility] Comment on above: Performed By: #### L [id number] ####[facility] ([facility])[address] [place] [address] HPon 03-27-2024 HP Normal [facility] LACTIC ACID WITH 4 HOUR REFL EXon 03-27-2024 LACTATE (MMOL/L) IN SER/PLAS 0.7 mmol/L Normal 0.5-2.2 [facility] Comment on above: Performed By: #### L [id number] ####[facility] ([facility])[address] [place] [address] LACTATE (MMOL/L) IN SER/PLAS 1.3 mmol/L Normal 0.5-2.2 [facility] Comment on above: Performed By: #### L [id number] ####[facility] ([facility])[address] [place] [address] MAGNESIUMon 03-27-2024 Magnesium [Mass/Vol] 1.8 mg/dL Low 1.9-2.7 [facility] Comment on above: Performed By: #### L [id number] ####[facility] ([facility])[address] [place] [address] PHOSPHORUSon 03-27-2024 Magnesium [Mass/Vol] 4.0 mg/dL Normal 2.5-5.0 [facility] Comment on above: Performed By: #### L [id number] ####[facility] ([facility])[address] [place] [address] POTASSIUM, WHOLE BLOODon Potassium [Moles/Vol] 4.1 mmol/L Normal 3.5-5.[address] [facility] Comment on above: Performed By: #### P OTASSIUM, WHOLE BLOOD ####[facility] RESPIRATORY [id number] [place] [address] [facility] Potassium [Moles/Vol] 4.9 mmol/L Normal 3.5-5.1 [facility] Comment on above: Performed By: #### P OTASSIUM, WHOLE BLOOD ####[facility] RESPIRATORY [id number] [place] [address] [facility] PROCALCITONIN TESTon 024 PROCALCITONIN IN BLOOD 0.08 ng/mL Normal 0.00-0.10 [facility] Comment on above: Result Comment: Rebeca tor triglycerides while patient is on propofol Performed By: #### L [id number] ####[facility] ([facility])[address] [place] [address] PROTIME-INRon 03-27-2024 INR IN PPP BY COAGULATION ASSAY 1.16 High 0.90-1.10 [facility] Comment on above: Result Comment: ACCC P [...] CHEST 1995;108:[id number]. Performed By: #### L [id number] ####[facility] (BEAKER)[address] [place] [address] PROTHROMBIN TIME (PT) IN PPP BY COAGULATION ASSAY 14.8 Seconds Normal 12.3-14.8 [facility] Comment on above: Performed By: #### L [id number] ####[facility] ([facility])[address] [place] [address] INR IN PPP BY COAGULATION ASSAY 1.41 High 0.90-1.10 [facility] Comment on above: Result Comment: ACCC P [...] CHEST 1995;108:[id number]. Performed By: #### L [id number] ####[facility] ([facility])[address] [place] [address] PROTHROMBIN TIME (PT) IN PPP BY COAGULATION ASSAY 17.1 Seconds High 12.3-14.8 [facility] Comment on above: Performed By: #### L [id number] ####[facility] ([facility])[address] [place] [address] RESPIRATORY CULTUREon 2023 Bacteria identified Cx Nom (Unsp spec) 1,000 CFU/mL Colonies Consistent with Upper Respiratory Li Normal [facility] Comment on above: Performed By: #### L [id number] ####[facility] ([facility])[address] [place] [address] GRAM STAIN RESULT Normal [facility] Comment on above: Result Comment: Few Polymorphonuclear leukocytesNo organisms seen Performed By: #### L [id number] ####[facility] ([facility])[address] [place] [place] [address] SODIUM, WHOLE BLOODon 2023 SODIUM, WHOLE BLOOD 138 Normal 136-145 [facility] Comment on above: Performed By: #### S ODIUM, WHOLE BLOOD ####[facility] RESPIRATORY [id number] [place] [address] [place] SODIUM, WHOLE BLOOD 137 Normal 136-145 [facility] Comment on above: Performed By: #### S ODIUM, WHOLE BLOOD ####[facility] RESPIRATORY [id number] [place] [address] [place] TRIGLYCERIDESon 03-27-2024 FASTING? unknown Normal [facility] Comment on above: Order Comment: Monit or triglycerides while patient is on propofol. Consult Nutrition if greater than 500 mg/dL. Performed By: #### L [id number] ####[facility] ([facility])[address] [place] [address] Magnesium [Mass/Vol] 50 mg/dL Normal 40-149 [facility] Comment on above: Order Comment: Monit or triglycerides while patient is on propofol. Consult Nutrition if greater than 500 mg/dL. Result Comment: TRIG LYCERIDE REFERENCE RANGE:20 YEARS AND OLDER CARDIOVASCULAR RISKLESS THAN 150 mg/dL LOW [id number] TO 199 mg/dL BORDERLINE SPHC820 mg/dL AND GREATER HIGH RISK Performed By: #### L [id number] ####[facility] ([facility])[address] [place] [address] TROPONIN Ion 03-27-2024 Troponin I.cardiac [Mass/Vol] 0.02 ng/mL Normal 0.00-0.04 [facility] Comment on above: Performed By: #### L [id number] ####[facility] ([facility])[address] [place] [address] TYPE AND SCREENon 03-27-2024 AB SCREEN Negative Normal [facility] Comment on above: Performed By: #### L [id number] ####[facility] BLOOD BANK, ABO group Nom (Bld) A Normal [facility] Comment on above: Performed By: #### L [id number] ####[facility] BLOOD BANK, RH TYPE IN BLOOD Negative Normal [facility] Comment on above: Performed By: #### L [id number] ####[facility] BLOOD BANK, VENOUS BLOOD GAS WITH IONIZE D CALCIUMon 03-27-2024 Base excess Calc (BldV) [Moles/Vol] 2.1 mmol/L Normal [facility] Comment on above: Performed By: #### L [id number] ####[facility] RESPIRATORY [id number] [place] [address] [facility] CALCIUM IONIZED (MMOL/L) IN BLOOD 1.21 mmol/L Normal 1.15-1.33 [facility] Comment on above: Performed By: #### L [id number] ####[facility] RESPIRATORY [id number] [place] [address] [place] CO2 (BldV) [Partial pressure] 61 mm[Hg] High 40-50 [facility] Comment on above: Performed By: #### L [id number] ####[facility] RESPIRATORY [id number] [place] [address] [place] HCO3 (Bld) [Moles/Vol] 29.3 mmol/L Normal U [facility] Comment on above: Performed By: #### L [id number] ####[facility] RESPIRATORY [id number] [place] [address] [place] Oxygen (BldV) [Partial pressure] 55 mm[Hg] High 35-45 [facility] Comment on above: Performed By: #### L [id number] ####[facility] RESPIRATORY [id number] [place] [address] [facility] OXYGEN SATURATION (%) IN VENOUS BLOOD 83.8 % High 65.0-75.0 [facility] Comment on above: Performed By: #### L [id number] ####[facility] RESPIRATORY [id number] [place] [address] [facility] PH OF VENOUS BLOOD 7.29 Low 7.31-7.41 [facility] Comment on above: Performed By: #### L [id number] ####[facility] RESPIRATORY [id number] [place] [address] [place] 30on 03-26-2024 30 Normal [facility] ANTI-XA (HEPARIN LEVEL)on HEPARIN UNFRACTIONATED (U/ML) IN PPP BY CHROMOGENIC METHOD >1.00 Critically high 0.3-0.7 [facility] Comment on above: Order Comment: Check anti-Xa level every 6 hours while on heparin infusion, or per protocol. Result Comment: [place] roxaban and Apixaban will interfere with the anti Xa assay used to monitor UFH and LMWH. Performed By: #### L [id number] ####[facility] ([facility])[address] [place] [address] COMPREHENSIVE METABOLIC PANE Flash 03-26-2024 Albumin [Mass/Vol] 3.4 g/dL Low 3.5-5.7 [facility] Comment on above: Performed By: #### L [id number] ####[facility] ([facility])[address] [place] [address] ALP [Catalytic activity/Vol] 39 U/L Normal 34-104 [facility] Comment on above: Performed By: #### L [id number] ####[facility] (BEAKER)[address] [place] [address] ALT [Catalytic activity/Vol] 10 U/L Normal 7-52 [facility] Comment on above: Performed By: #### L [id number] ####[facility] (BEAKER)[address] [place] [address] Anion gap [Moles/Vol] 11 mmol/L Normal 7-20 [facility] Comment on above: Performed By: #### L [id number] ####[facility] (BEAKER)[address] [place] [address] AST [Catalytic activity/Vol] 19 U/L Normal 13-39 [facility] Comment on above: Performed By: #### L [id number] ####[facility] ([facility])[address] [place] [address] Bilirubin [Mass/Vol] 0.4 mg/dL Normal 0.3-1.0 [facility] Comment on above: Performed By: #### L [id number] ####[facility] ([facility])[address] [place] [address] Calcium [Mass/Vol] 9.0 mg/dL Normal 8.6-10.3 [facility] Comment on above: Performed By: #### L [id number] ####[facility] ([facility])[address] [place] [address] Chloride [Moles/Vol] 101 mmol/L Normal 98-107 [facility] Comment on above: Performed By: #### L [id number] ####[facility] ([facility])[address] [place] [address] CO2 [Moles/Vol] 28 mmol/L Normal 21-31 [facility] Comment on above: Performed By: #### L [id number] ####[facility] ([facility])[address] [place] [address] Creatinine [Mass/Vol] 0.46 mg/dL Low 0.60-1.20 [facility] Comment on above: Performed By: #### L [id number] ####[facility] ([facility])[address] [place] [address] GLOMERULAR FILTRATION RATE ML/MIN/1.73 SQ M.PREDICTED 106.1 mL/min/1.73m*2 Normal >60.0 [facility] Comment on above: Result Comment: The [facility]???s estimated glomerular filtration rate (eGFR) will no [...] of individuals. Performed By: #### L [id number] ####[facility] ([facility])[address] [place] [address] Glucose [Mass/Vol] 115 mg/dL High 70-100 [facility] Comment on above: Performed By: #### L [id number] ####[facility] ([facility])[address] [place] [address] Potassium [Moles/Vol] 4.0 mmol/L Normal 3.5-5.1 [facility] Comment on above: Performed By: #### L [id number] ####[facility] ([facility])[address] [place] [address] Protein [Mass/Vol] 6.9 g/dL Normal 6.0-8.3 [facility] Comment on above: Performed By: #### L [id number] ####[facility] ([facility])[address] [place] [address] Sodium [Moles/Vol] 136 mmol/L Normal 136-145 [facility] Comment on above: Performed By: #### L [id number] ####[facility] ([facility])[address] [place] [address] Urea nitrogen [Mass/Vol] 17 mg/dL Normal 7-25 [facility] Comment on above: Performed By: #### L [id number] ####[facility] ([facility])[address] [place] [address] UREA NITROGEN/CREATININE (MASS RATIO) IN SER/PLAS 37.0 [facility] Comment on above: Performed By: #### L [id number] ####[facility] ([facility])[address] [place] [address] DSon 03-26-2024 DS [facility] NURSNOTEon 03-26-2024 NURSNOTE [facility] NURSNOTE Health Information Clerk received a ca ll from lab for a critical heparin greater than 1.0 and PTT of 32. The patient is no longer on the heparin drip. [facility] 30on 03-25-2024 30 [facility] 30 [facility] ANTI-XA (HEPARIN LEVEL)on HEPARIN UNFRACTIONATED (U/ML) IN PPP BY CHROMOGENIC METHOD 0.24 IU/mL Low 0.3-0.7 [facility] Comment on above: Order Comment: Check anti-Xa level every 6 hours while on heparin infusion, or per protocol. Result Comment: [place] roxaban and Apixaban will interfere with the anti Xa assay used to monitor UFH and LMWH. Performed By: #### L [id number] ####[facility] (AKER)[address] [place] [address] HEPARIN UNFRACTIONATED (U/ML) IN PPP BY CHROMOGENIC METHOD 0.10 IU/mL Invalid Interpretation Code 0.3-0.7 [facility] Comment on above: Order Comment: Check anti-Xa level every 6 hours while on heparin infusion, or per protocol. Result Comment: [place] roxaban and Apixaban will interfere with the anti Xa assay used to monitor UFH and LMWH. Performed By: #### L [id number] ####[facility] (AKER)[address] [place] [address] BASIC METABOLIC PANELon Anion gap [Moles/Vol] 13 mmol/L Normal 7-20 [facility] Comment on above: Performed By: #### L [id number] ####[facility] (BEAKER)[address] [place] [address] Calcium [Mass/Vol] 9.4 mg/dL Normal 8.6-10.3 [facility] Comment on above: Performed By: #### L [id number] ####[facility] (BEAKER)[address] [place] [address] Chloride [Moles/Vol] 100 mmol/L Normal 98-107 [facility] Comment on above: Performed By: #### L [id number] ####[facility] ([facility])[address] [place] [address] CO2 [Moles/Vol] 27 mmol/L Normal 21-31 [facility] Comment on above: Performed By: #### L [id number] ####[facility] ([facility])[address] [place] [address] Creatinine [Mass/Vol] 0.52 mg/dL Low 0.60-1.20 [facility] Comment on above: Performed By: #### L [id number] ####[facility] ([facility])[address] [place] [address] GLOMERULAR FILTRATION RATE ML/MIN/1.73 SQ M.PREDICTED 103.0 mL/min/1.73m*2 Normal >60.0 [facility] Comment on above: Result Comment: The [facility]???s estimated glomerular filtration rate (eGFR) will no [...] of individuals. Performed By: #### L [id number] ####[facility] ([facility])[address] [place] [address] Glucose [Mass/Vol] 109 mg/dL High 70-100 [facility] Comment on above: Performed By: #### L [id number] ####[facility] ([facility])[address] [place] [address] Potassium [Moles/Vol] 4.6 mmol/L Normal 3.5-5.1 [facility] Comment on above: Performed By: #### L [id number] ####[facility] ([facility])[address] [place] [address] Sodium [Moles/Vol] 135 mmol/L Low 136-145 [facility] Comment on above: Performed By: #### L [id number] ####[facility] (BEAKER)[address] [place] [address] Urea nitrogen [Mass/Vol] 22 mg/dL Normal 7-25 [facility] Comment on above: Performed By: #### L [id number] ####[facility] ([facility])[address] [place] [address] UREA NITROGEN/CREATININE (MASS RATIO) IN SER/PLAS 42.3 Normal [facility] Comment on above: Performed By: #### L [id number] ####[facility] ([facility])[address] [place] [address] CBCon 03-25-2024 Erythrocyte distribution width (RBC) [Ratio] 14.6 % Normal 11.5-15.0 [facility] Comment on above: Performed By: #### L [id number] ####[facility] ([facility])[address] [place] [address] ERYTHROCYTE MEAN CORPUSCULAR HEMOGLOBIN CONCENTRATION (G/DL) BY AUTOMATED 31.3 g/dL Low 32.0-35.0 [facility] Comment on above: Performed By: #### L [id number] ####[facility] ([facility])[address] [place] [address] Hematocrit (Bld) [Volume fraction] 33.5 % Low 36.0-48.0 [facility] Comment on above: Performed By: #### L [id number] ####[facility] ([facility])[address] [place] [address] Hemoglobin (Bld) [Mass/Vol] 10.5 g/dL Low 12.0-15.0 [facility] Comment on above: Performed By: #### L [id number] ####[facility] (BEAKER)[address] [place] [address] MCH (RBC) [Entitic mass] 29.6 pg Normal 27.0-33.0 [facility] Comment on above: Performed By: #### L [id number] ####[facility] (BEAKER)[address] [place] [address] MCV (RBC) [Entitic vol] 94.4 fL Normal 82.0-98.0 [facility] Comment on above: Performed By: #### L [id number] ####[facility] ([facility])[address] [place] [address] PLATELETS (10*3/UL) IN BLOOD AUTOMATED COUNT 321 10*3/uL Normal 150-400 [facility] Comment on above: Performed By: #### L [id number] ####[facility] ([facility])[address] [place] [address] RBC (Bld) [#/Vol] 3.55 10*6/uL Low 3.80-5.00 [facility] Comment on above: Performed By: #### L [id number] ####[facility] ([facility])[address] [place] [address] WBC (Bld) [#/Vol] 8.51 10*3/uL Normal 4.00-10.60 [facility] Comment on above: Performed By: #### L [id number] ####[facility] ([facility])[address] [place], [place] [address] Erythrocyte distribution width (RBC) [Ratio] 14.5 % Normal 11.5-15.0 [facility] Comment on above: Performed By: #### L [id number] ####[facility] ([facility])[address] [place], [place] [address] ERYTHROCYTE MEAN CORPUSCULAR HEMOGLOBIN CONCENTRATION (G/DL) BY AUTOMATED 30.7 g/dL Low 32.0-35.0 [facility] Comment on above: Performed By: #### L [id number] ####[facility] (BEAKER)[address] [place], [place] [address] Hematocrit (Bld) [Volume fraction] 28.3 % Low 36.0-48.0 [facility] Comment on above: Performed By: #### L [id number] ####[facility] ([facility])[address] [place] [address] Hemoglobin (Bld) [Mass/Vol] 8.7 g/dL Low 12.0-15.0 [facility] Comment on above: Performed By: #### L [id number] ####[facility] ([facility])[address] [place] [address] MCH (RBC) [Entitic mass] 28.8 pg Normal 27.0-33.0 [facility] Comment on above: Performed By: #### L [id number] ####[facility] ([facility])[address] [place], [place] [address] MCV (RBC) [Entitic vol] 93.7 fL Normal 82.0-98.0 [facility] Comment on above: Performed By: #### L [id number] ####[facility] ([facility])[address] [place] [address] PLATELETS (10*3/UL) IN BLOOD AUTOMATED COUNT 350 10*3/uL Normal 150-400 [facility] Comment on above: Performed By: #### L [id number] ####[facility] ([facility])[address] [place], [place] [address] RBC (Bld) [#/Vol] 3.02 10*6/uL Low 3.80-5.00 [facility] Comment on above: Performed By: #### L [id number] ####[facility] ([facility])[address] [place], [place] [address] WBC (Bld) [#/Vol] 6.83 10*3/uL Normal 4.00-10.60 [facility] Comment on above: Performed By: #### L [id number] ####[facility] ([facility])[address] [place] [address] COMPREHENSIVE METABOLIC PANE Flash 03-25-2024 Albumin [Mass/Vol] 3.2 g/dL Low 3.5-5.7 [facility] Comment on above: Performed By: #### L [id number] ####[facility] (BEAKER)[address] [place] [address] ALP [Catalytic activity/Vol] 41 U/L Normal 34-104 [facility] Comment on above: Performed By: #### L [id number] ####[facility] (BEAKER)[address] [place] [address] ALT [Catalytic activity/Vol] 13 U/L Normal 7-52 [facility] Comment on above: Performed By: #### L [id number] ####[facility] ([facility])[address] [place] [address] Anion gap [Moles/Vol] 10 mmol/L Normal 7-20 [facility] Comment on above: Performed By: #### L [id number] ####[facility] ([facility])[address] [place] [address] AST [Catalytic activity/Vol] 19 U/L Normal 13-39 [facility] Comment on above: Performed By: #### L [id number] ####[facility] ([facility])[address] [place] [address] Bilirubin [Mass/Vol] 0.3 mg/dL Normal 0.3-1.0 [facility] Comment on above: Performed By: #### L [id number] ####[facility] ([facility])[address] [place] [address] Calcium [Mass/Vol] 8.6 mg/dL Normal 8.6-10.3 [facility] Comment on above: Performed By: #### L [id number] ####[facility] ([facility])[address] [place] [address] Chloride [Moles/Vol] 101 mmol/L Normal 98-107 [facility] Comment on above: Performed By: #### L [id number] ####[facility] (BEAKER)[address] [place] [address] CO2 [Moles/Vol] 30 mmol/L Normal 21-31 [facility] Comment on above: Performed By: #### L [id number] ####[facility] ([facility])[address] [place] [address] Creatinine [Mass/Vol] 0.49 mg/dL Low 0.60-1.20 [facility] Comment on above: Performed By: #### L [id number] ####[facility] ([facility])[address] [place] [address] GLOMERULAR FILTRATION RATE ML/MIN/1.73 SQ M.PREDICTED 104.5 mL/min/1.73m*2 Normal >60.0 [facility] Comment on above: Result Comment: The [facility]???s estimated glomerular filtration rate (eGFR) will no [...] of individuals. Performed By: #### L [id number] ####[facility] ([facility])[address] [place] [address] Glucose [Mass/Vol] 108 mg/dL High 70-100 [facility] Comment on above: Performed By: #### L [id number] ####[facility] ([facility])[address] [place] [address] Potassium [Moles/Vol] 4.2 mmol/L Normal 3.5-5.1 [facility] Comment on above: Performed By: #### L [id number] ####[facility] ([facility])[address] [place] [address] Protein [Mass/Vol] 6.5 g/dL Normal 6.0-8.3 [facility] Comment on above: Performed By: #### L [id number] ####[facility] ([facility])[address] [place] [address] Sodium [Moles/Vol] 137 mmol/L Normal 136-145 [facility] Comment on above: Performed By: #### L [id number] ####[facility] ([facility])[address] [place] [address] Urea nitrogen [Mass/Vol] 22 mg/dL Normal 7-25 [facility] Comment on above: Performed By: #### L [id number] ####[facility] ([facility])[address] [place] [address] UREA NITROGEN/CREATININE (MASS RATIO) IN SER/PLAS 44.9 Normal [facility] Comment on above: Performed By: #### L [id number] ####[facility] ([facility])[address] [place] [address] KAPPA / LAMBDA LIGHT CHAINS, FREEon 03-25-2024 IMMUNOGLOBULIN LIGHT CHAINS KAPPA/LAMBDA (MASS RATIO) IN SERUM 1.29 Normal 0.22-1.74 [facility] Comment on above: Result Comment: Test Performed by [email or web address] [address] [place] [id number] - Released 03/25/2024 18:34 Performed By: #### L [id number] ####[facility] [employer] [id number] [place] [address] IMMUNOGLOBULIN LIGHT CHAINS.KAPPA (MG/DL) IN SERUM 51.3 mg/L High <20.8 [facility] Comment on above: Result Comment: Perf ormed using [employer] reagent on [employer]. Results obtained with different assay methods cannot be used interchangeably. Performed By: #### L [id number] ####[employer] [id number] [place] [address] IMMUNOGLOBULIN LIGHT CHAINS.LAMBDA (MG/DL) IN SERUM 39.9 mg/L High 4.2-27.7 [facility] Comment on above: Result Comment: Perf ormed using [employer] reagent on [employer]. Results obtained with different assay methods cannot be used interchangeably. Performed By: #### L [id number] ####[employer] [id number] [place] [address] MAGNESIUMon 03-25-2024 Magnesium [Mass/Vol] 1.8 mg/dL Low 1.9-2.7 [facility] Comment on above: Performed By: #### L [id number] ####[facility] ([facility])[address] [place] [address] 30on 03-24-2024 30 Normal [facility] APTTon 03-24-2024 ACTIVATED PARTIAL THROMBOPLASTIN TIME IN PPP BY COAGULATION ASSAY 27.4 Seconds Normal 25.0-35.0 [facility] Comment on above: Order Comment: Basel ine aPTT before initiating heparin infusion. Result Comment: Clin ical significance of the APTT is questionable in the presence of heparin. Performed By: #### L [id number] ####[facility] ([facility])[address] [place] [address] CBC WITH AUTO DIFFERENTIALon 03-24-2024 Basophils (Bld) [#/Vol] 0.04 10*3/uL Normal 0.00-0.20 [facility] Comment on above: Performed By: #### L [id number] ####[facility] ([facility])[address] [place] [address] Basophils/100 WBC (Bld) 0.6 % Normal 0.0-1.0 [facility] Comment on above: Performed By: #### L [id number] ####[facility] ([facility])[address] [place] [address] Eosinophils (Bld) [#/Vol] 0.25 10*3/uL Normal 0.00-0.50 [facility] Comment on above: Performed By: #### L [id number] ####[facility] ([facility])[address] [place] [address] Eosinophils/100 WBC (Bld) 3.5 % Normal 0.0-6.0 [facility] Comment on above: Performed By: #### L [id number] ####[facility] ([facility])[address] [place] [address] Erythrocyte distribution width (RBC) [Ratio] 14.5 % Normal 11.5-15.0 [facility] Comment on above: Performed By: #### L [id number] ####[facility] (BEAKER)[address] [place] [address] ERYTHROCYTE MEAN CORPUSCULAR HEMOGLOBIN CONCENTRATION (G/DL) BY AUTOMATED 30.7 g/dL Low 32.0-35.0 [facility] Comment on above: Performed By: #### L [id number] ####[facility] (BEAKER)[address] [place] [address] Hematocrit (Bld) [Volume fraction] 27.4 % Low 36.0-48.0 [facility] Comment on above: Performed By: #### L [id number] ####[facility] (BEAKER)[address] [place] [address] Hemoglobin (Bld) [Mass/Vol] 8.4 g/dL Low 12.0-15.0 [facility] Comment on above: Performed By: #### L [id number] ####[facility] (BEAKER)[address] [place] [address] Immature granulocytes (Bld) [#/Vol] 0.04 10*3/uL Normal 0.00-0.20 [facility] Comment on above: Performed By: #### L [id number] ####[facility] (BEAKER)[address] [place] [address] Immature granulocytes/100 WBC (Bld) 0.6 % Normal 0.0-1.0 [facility] Comment on above: Performed By: #### L [id number] ####[facility] (BEAKER)[address] [place] [address] Lymphocytes (Bld) [#/Vol] 0.93 10*3/uL Low 1.20-4.00 [facility] Comment on above: Performed By: #### L [id number] ####[facility] (BEAKER)[address] [place] [address] Lymphocytes/100 WBC (Bld) 12.9 % Low 20.0-45.0 [facility] Comment on above: Performed By: #### L [id number] ####[facility] (BEAKER)[address] [place] [address] MCH (RBC) [Entitic mass] 29.5 pg Normal 27.0-33.0 [facility] Comment on above: Performed By: #### L [id number] ####[facility] (BEAKER)[address] [place] [address] MCV (RBC) [Entitic vol] 96.1 fL Normal 82.0-98.0 [facility] Comment on above: Performed By: #### L [id number] ####[facility] (BEAKER)[address] [place] [address] Monocytes (Bld) [#/Vol] 0.57 10*3/uL Normal 0.10-1.00 [facility] Comment on above: Performed By: #### L [id number] ####[facility] (BEAKER)[address] [place] [address] Monocytes/100 WBC (Bld) 7.9 % Normal 5.0-12.0 [facility] Comment on above: Performed By: #### L [id number] ####[facility] (BEAKER)[address] [place] [address] Neutrophils (Bld) [#/Vol] 5.39 10*3/uL Normal 1.60-7.60 [facility] Comment on above: Performed By: #### L [id number] ####[facility] (BEAKER)[address] [place] [address] Neutrophils/100 WBC (Bld) 74.5 % High 40.0-72.0 [facility] Comment on above: Performed By: #### L [id number] ####[facility] (BEAKER)[address] [place] [address] NRBC (PER 100 WBCS) BY AUTOMATED COUNT 0.0 % Normal 0 [facility] Comment on above: Performed By: #### L [id number] ####[facility] (BEAKER)[address] [place] [address] PLATELETS (10*3/UL) IN BLOOD AUTOMATED COUNT 303 10*3/uL Normal 150-400 [facility] Comment on above: Performed By: #### L [id number] ####[facility] ([facility])[address] [place] [address] RBC (Bld) [#/Vol] 2.85 10*6/uL Low 3.80-5.00 [facility] Comment on above: Performed By: #### L [id number] ####[facility] ([facility])[address] [place] [address] WBC (Bld) [#/Vol] 7.22 10*3/uL Normal 4.00-10.60 [facility] Comment on above: Performed By: #### L [id number] ####[facility] ([facility])[address] [place] [address] COMPREHENSIVE METABOLIC PANE Flash 03-24-2024 Albumin [Mass/Vol] 3.0 g/dL Low 3.5-5.7 [facility] Comment on above: Performed By: #### L [id number] ####[facility] ([facility])[address] [place] [address] ALP [Catalytic activity/Vol] 39 U/L Normal 34-104 [facility] Comment on above: Performed By: #### L [id number] ####[facility] ([facility])[address] [place] [address] ALT [Catalytic activity/Vol] 13 U/L Normal 7-52 [facility] Comment on above: Performed By: #### L [id number] ####[facility] ([facility])[address] [place] [address] Anion gap [Moles/Vol] 8 mmol/L Normal 7-20 [facility] Comment on above: Performed By: #### L [id number] ####[facility] ([facility])[address] [place] [address] AST [Catalytic activity/Vol] 20 U/L Normal 13-39 [facility] Comment on above: Performed By: #### L [id number] ####[facility] (BEAKER)[address] [place] [address] Bilirubin [Mass/Vol] 0.3 mg/dL Normal 0.3-1.0 [facility] Comment on above: Performed By: #### L [id number] ####[facility] (BEAKER)[address] [place] [address] Calcium [Mass/Vol] 8.6 mg/dL Normal 8.6-10.3 [facility] Comment on above: Performed By: #### L [id number] ####[facility] (BEAKER)[address] [place] [address] Chloride [Moles/Vol] 106 mmol/L Normal 98-107 [facility] Comment on above: Performed By: #### L [id number] ####[facility] (BEAKER)[address] [place] [address] CO2 [Moles/Vol] 30 mmol/L Normal 21-31 [facility] Comment on above: Performed By: #### L [id number] ####[facility] (BEAKER)[address] [place] [address] Creatinine [Mass/Vol] 0.42 mg/dL Low 0.60-1.20 [facility] Comment on above: Performed By: #### L [id number] ####[facility] ([facility])[address] [place] [address] GLOMERULAR FILTRATION RATE ML/MIN/1.73 SQ M.PREDICTED 108.5 mL/min/1.73m*2 Normal >60.0 [facility] Comment on above: Result Comment: The [facility]???s estimated glomerular filtration rate (eGFR) will no [...] of individuals. Performed By: #### L [id number] ####[facility] ([facility])[address] [place] [address] Glucose [Mass/Vol] 102 mg/dL High 70-100 [facility] Comment on above: Performed By: #### L [id number] ####[facility] ([facility])[address] [place] [address] Potassium [Moles/Vol] 3.9 mmol/L Normal 3.5-5.1 [facility] Comment on above: Performed By: #### L [id number] ####[facility] ([facility])[address] [place] [address] Protein [Mass/Vol] 6.2 g/dL Normal 6.0-8.3 [facility] Comment on above: Performed By: #### L [id number] ####[facility] ([facility])[address] [place] [address] Sodium [Moles/Vol] 140 mmol/L Normal 136-145 [facility] Comment on above: Performed By: #### L [id number] ####[facility] ([facility])[address] [place] [address] Urea nitrogen [Mass/Vol] 28 mg/dL High 7-25 [facility] Comment on above: Performed By: #### L [id number] ####[facility] ([facility])[address] [place] [address] UREA NITROGEN/CREATININE (MASS RATIO) IN SER/PLAS 66.7 Normal [facility] Comment on above: Performed By: #### L [id number] ####[facility] ([facility])[address] [place] [address] PLATELET COUNTon 03-24-2024 PLATELETS (10*3/UL) IN BLOOD AUTOMATED COUNT 345 10*3/uL Normal 150-400 [facility] Comment on above: Performed By: #### L [id number] ####[facility] ([facility])[address] [place] [address] CBCon 03-23-2024 Erythrocyte distribution width (RBC) [Ratio] 14.1 % Normal 11.5-15.0 [facility] Comment on above: Performed By: #### L [id number] ####[facility] ([facility])[address] [place] [address] ERYTHROCYTE MEAN CORPUSCULAR HEMOGLOBIN CONCENTRATION (G/DL) BY AUTOMATED 30.9 g/dL Low 32.0-35.0 [facility] Comment on above: Performed By: #### L [id number] ####[facility] ([facility])[address] [place] [address] Hematocrit (Bld) [Volume fraction] 31.4 % Low 36.0-48.0 [facility] Comment on above: Performed By: #### L [id number] ####[facility] ([facility])[address] [place] [address] Hemoglobin (Bld) [Mass/Vol] 9.7 g/dL Low 12.0-15.0 [facility] Comment on above: Performed By: #### L [id number] ####[facility] ([facility])[address] [place] [address] MCH (RBC) [Entitic mass] 29.4 pg Normal 27.0-33.0 [facility] Comment on above: Performed By: #### L [id number] ####[facility] ([facility])[address] [place] [address] MCV (RBC) [Entitic vol] 95.2 fL Normal 82.0-98.0 [facility] Comment on above: Performed By: #### L [id number] ####[facility] ([facility])[address] [place] [address] PLATELETS (10*3/UL) IN BLOOD AUTOMATED COUNT 266 10*3/uL Normal 150-400 [facility] Comment on above: Performed By: #### L [id number] ####[facility] ([facility])[place] [address] RBC (Bld) [#/Vol] 3.30 10*6/uL Low 3.80-5.00 [facility] Comment on above: Performed By: #### L [id number] ####[facility] ([facility])[address] [place] [address] WBC (Bld) [#/Vol] 5.54 10*3/uL Normal 4.00-10.60 [facility] Comment on above: Performed By: #### L [id number] ####[facility] ([facility])[address] [place] [address] COMPREHENSIVE METABOLIC PANE [facility] 03-23-2024 Albumin [Mass/Vol] 3.0 g/dL Low 3.5-5.7 [facility] Comment on above: Performed By: #### L [id number] ####[facility] ([facility])[address] [place] [address] ALP [Catalytic activity/Vol] 38 U/L Normal 34-104 [facility] Comment on above: Performed By: #### L [id number] ####[facility] ([facility])[address] [place] [address] ALT [Catalytic activity/Vol] 11 U/L Normal 7-52 [facility] Comment on above: Performed By: #### L [id number] ####[facility] ([facility])[address] [place] [address] Anion gap [Moles/Vol] 13 mmol/L Normal 7-20 [facility] Comment on above: Performed By: #### L [id number] ####[facility] ([facility])[address] [place] [address] AST [Catalytic activity/Vol] 21 U/L Normal 13-39 [facility] Comment on above: Performed By: #### L [id number] ####[facility] ([facility])[address] [place] [address] Bilirubin [Mass/Vol] 0.3 mg/dL Normal 0.3-1.0 [facility] Comment on above: Performed By: #### L [id number] ####[facility] ([facility])[address] [place] [address] Calcium [Mass/Vol] 8.6 mg/dL Normal 8.6-10.3 [facility] Comment on above: Performed By: #### L [id number] ####[facility] ([facility])[address] [place] [address] Chloride [Moles/Vol] 107 mmol/L Normal 98-107 [facility] Comment on above: Performed By: #### L [id number] ####[facility] ([facility])[address] [place] [address] CO2 [Moles/Vol] 23 mmol/L Normal 21-31 [facility] Comment on above: Performed By: #### L [id number] ####[facility] ([facility])[address] [place] [address] Creatinine [Mass/Vol] 0.46 mg/dL Low 0.60-1.20 [facility] Comment on above: Performed By: #### L [id number] ####[facility] ([facility])[address] [place] [address] GLOMERULAR FILTRATION RATE ML/MIN/1.73 SQ M.PREDICTED 106.1 mL/min/1.73m*2 Normal >60.0 [facility] Comment on above: Result Comment: The [facility]???s estimated glomerular filtration rate (eGFR) will no [...] of individuals. Performed By: #### L [id number] ####[facility] ([facility])[address] [place] [address] Glucose [Mass/Vol] 93 mg/dL Normal 70-100 [facility] Comment on above: Performed By: #### L [id number] ####[facility] ([facility])[address] [place] [address] Potassium [Moles/Vol] 3.8 mmol/L Normal 3.5-5.1 [facility] Comment on above: Performed By: #### L [id number] ####[facility] ([facility])[address] [place] [address] Protein [Mass/Vol] 6.2 g/dL Normal 6.0-8.3 [facility] Comment on above: Performed By: #### L [id number] ####[facility] ([facility])[address] [place] [address] Sodium [Moles/Vol] 139 mmol/L Normal 136-145 [facility] Comment on above: Performed By: #### L [id number] ####[facility] ([facility])[address] [place] [address] Urea nitrogen [Mass/Vol] 28 mg/dL High 7-25 [facility] Comment on above: Performed By: #### L [id number] ####[facility] ([facility])[address] [place] [address] UREA NITROGEN/CREATININE (MASS RATIO) IN SER/PLAS 60.9 Normal [facility] Comment on above: Performed By: #### L [id number] ####[facility] ([facility])[address] [place] [address] CONSULTon 03-23-2024 CONSULT Normal [facility] CT ABDOMEN PELVIS W AND WO I V CONTRASTon 03-23-2024 CT ABDOMEN PELVIS W AND WO IV CONTRAST Invalid Interpretation Code [facility] CT CHEST W IV CONTRASTon CT CHEST W IV CONTRAST Invalid Interpretation Code [facility] MAGNESIUMon 03-23-2024 Magnesium [Mass/Vol] 1.7 mg/dL Low 1.9-2.7 [facility] Comment on above: Performed By: #### L [id number] ####[facility] (BEAKER)[address] [place] [address] PHOSPHORUSon 03-23-2024 Magnesium [Mass/Vol] 3.6 mg/dL Normal 2.5-5.0 [facility] Comment on above: Performed By: #### L [id number] ####[facility] (BEAKER)[address] [place] [address] VENOUS BLOOD GAS WITH IONIZE D CALCIUMon 03-23-2024 Base excess Calc (BldV) [Moles/Vol] 4.5 mmol/L Normal [facility] Comment on above: Performed By: #### L [id number] ####[facility] [id number] [place] [address] [facility] CALCIUM IONIZED (MMOL/L) IN BLOOD 1.18 mmol/L Normal 1.15-1.33 [facility] Comment on above: Performed By: #### L [id number] ####[facility] [id number] [place] [address] [place] CO2 (BldV) [Partial pressure] 39 mm[Hg] Low 40-50 [facility] Comment on above: Performed By: #### L [id number] ####[facility] [id number] [place] [address] [place] HCO3 (Bld) [Moles/Vol] 28.4 mmol/L Normal [facility] Comment on above: Performed By: #### L [id number] ####[facility] RESPIR[facility] [id number] [place] [address] [place] Oxygen (BldV) [Partial pressure] 62 mm[Hg] High 35-45 [facility] Comment on above: Performed By: #### L [id number] ####[facility] [id number] [place] [address] [place] OXYGEN SATURATION (%) IN VENOUS BLOOD 92.7 % High 65.0-75.0 [facility] Comment on above: Performed By: #### L [id number] ####[facility] [id number] [place] [address] [facility] PH OF VENOUS BLOOD 7.47 High 7.31-7.41 [facility] Comment on above: Performed By: #### L [id number] ####[facility]PIRAT[facility] [id number] [place] [address] [place] 30on 03-22-2024 30 Normal [facility] 30 Normal [facility] BASIC METABOLIC PANELon Anion gap [Moles/Vol] 12 mmol/L Normal 7-20 [facility] Comment on above: Performed By: #### L [id number] ####[facility] ([facility])[address] [place] [address] Calcium [Mass/Vol] 8.9 mg/dL Normal 8.6-10.3 [facility] Comment on above: Performed By: #### L [id number] ####[facility] ([facility])[address] [place] [address] Chloride [Moles/Vol] 105 mmol/L Normal 98-107 [facility] Comment on above: Performed By: #### L [id number] ####[facility] ([facility])[address] [place] [address] CO2 [Moles/Vol] 26 mmol/L Normal 21-31 [facility] Comment on above: Performed By: #### L [id number] ####[facility] ([facility])[address] [place] [address] Creatinine [Mass/Vol] 0.44 mg/dL Low 0.60-1.20 [facility] Comment on above: Performed By: #### L [id number] ####[facility] ([facility])[address] [place] [address] GLOMERULAR FILTRATION RATE ML/MIN/1.73 SQ M.PREDICTED 107.3 mL/min/1.73m*2 Normal >60.0 [facility] Comment on above: Result Comment: The [facility]???s estimated glomerular filtration rate (eGFR) will no [...] of individuals. Performed By: #### L [id number] ####[facility] ([facility])[address] [place] [address] Glucose [Mass/Vol] 92 mg/dL Normal 70-100 [facility] Comment on above: Performed By: #### L [id number] ####[facility] ([facility])[address] [place] [address] Potassium [Moles/Vol] 3.7 mmol/L Normal 3.5-5.[address] [facility] Comment on above: Performed By: #### L [id number] ####[facility] ([facility])[address] [place] [address] Sodium [Moles/Vol] 139 mmol/L Normal 136-145 [facility] Comment on above: Performed By: #### L [id number] ####[facility] ([facility])[address] [place] [address] Urea nitrogen [Mass/Vol] 26 mg/dL High 7-25 [facility] Comment on above: Performed By: #### L [id number] ####[facility] ([facility])[address] [place] [address] UREA NITROGEN/CREATININE (MASS RATIO) IN SER/PLAS 59.1 Normal [facility] Comment on above: Performed By: #### L [id number] ####[facility] ([facility])[address] [place] [address] CBCon 03-22-2024 Erythrocyte distribution width (RBC) [Ratio] 13.9 % Normal 11.5-15.0 [facility] Comment on above: Performed By: #### L [id number] ####[facility] (BEAKER)[address] [address] ERYTHROCYTE MEAN CORPUSCULAR HEMOGLOBIN CONCENTRATION (G/DL) BY AUTOMATED 31.4 g/dL Low 32.0-35.0 [facility] Comment on above: Performed By: #### L [id number] ####[facility] ([facility])[address] [address] Hematocrit (Bld) [Volume fraction] 32.8 % Low 36.0-48.0 [facility] Comment on above: Performed By: #### L [id number] ####[facility] ([facility])[address] [address] Hemoglobin (Bld) [Mass/Vol] 10.3 g/dL Low 12.0-15.0 [facility] Comment on above: Performed By: #### L [id number] ####[facility] ([facility])[address] [place] [address] MCH (RBC) [Entitic mass] 28.9 pg Normal 27.0-33.0 [facility] Comment on above: Performed By: #### L [id number] ####[facility] ([facility])[address] [address] MCV (RBC) [Entitic vol] 91.9 fL Normal 82.0-98.0 [facility] Comment on above: Performed By: #### L [id number] ####[facility] ([facility])[address] [place] [address] PLATELETS (10*3/UL) IN BLOOD AUTOMATED COUNT 313 10*3/uL Normal 150-400 [facility] Comment on above: Performed By: #### L [id number] ####[facility] ([facility])[address] [address] RBC (Bld) [#/Vol] 3.57 10*6/uL Low 3.80-5.00 [facility] Comment on above: Performed By: #### L [id number] ####[facility] ([facility])[address] [place] [address] WBC (Bld) [#/Vol] 5.94 10*3/uL Normal 4.00-10.60 [facility] Comment on above: Performed By: #### L [id number] ####[facility] ([facility])[address] [place] [address] CONSULTon 03-22-2024 CONSULT Normal [facility] LACTIC ACID WITH 4 HOUR REFL EXon 03-22-2024 LACTATE (MMOL/L) IN SER/PLAS 1.3 mmol/L Normal 0.5-2.2 [facility] Comment on above: Result Comment: M- EMISTRY SPECIMEN MODERATELY HEMOLYZED RESULTS MAY NOT BE ACCURATE Performed By: #### L [id number] ####[facility] ([facility])[address] [place] [address] MAGNESIUMon 03-22-2024 Magnesium [Mass/Vol] 1.9 mg/dL Normal 1.9-2.7 [facility] Comment on above: Performed By: #### L [id number] ####[facility] ([facility])[address] [place] [address] MR CERVICAL SPINE W AND WO C ONTRASTon 03-22-2024 MR CERVICAL SPINE W AND WO CONTRAST Invalid Interpretation Code [facility] MR LUMBAR SPINE W AND WO CON TRASTon 03-22-2024 MR LUMBAR SPINE W AND WO CONTRAST Invalid Interpretation Code [facility] MR THORACIC SPINE W AND WO C ONTRASTon 03-22-2024 MR THORACIC SPINE W AND WO CONTRAST Invalid Interpretation Code [facility] PHOSPHORUSon 03-22-2024 Magnesium [Mass/Vol] 3.5 mg/dL Normal 2.5-5.0 [facility] Comment on above: Performed By: #### L [id number] ####[facility] ([facility])[address] [place] [address] 30on 03-21-2024 30 Normal [facility] 30 Normal [facility] BASIC METABOLIC PANELon Anion gap [Moles/Vol] 13 mmol/L Normal 7-20 [facility] Comment on above: Performed By: #### L [id number] ####[facility] ([facility])[address] [place] [address] Calcium [Mass/Vol] 8.8 mg/dL Normal 8.6-10.3 [facility] Comment on above: Performed By: #### L [id number] ####[facility] ([facility])[address] [place] [address] Chloride [Moles/Vol] 104 mmol/L Normal 98-107 [facility] Comment on above: Performed By: #### L [id number] ####[facility] (BEINNA)[address] [place] [address] CO2 [Moles/Vol] 27 mmol/L Normal 21-31 [facility] Comment on above: Performed By: #### L [id number] ####[facility] (JACK)[address] [place] [address] Creatinine [Mass/Vol] 0.48 mg/dL Low 0.60-1.20 [facility] Comment on above: Performed By: #### L [id number] ####[facility] (INNA)[address] [place] [address] GLOMERULAR FILTRATION RATE ML/MIN/1.73 SQ M.PREDICTED 105.0 mL/min/1.73m*2 Normal >60.0 [facility] Comment on above: Result Comment: The [facility]???s estimated glomerular filtration rate (eGFR) will no [...] of individuals. Performed By: #### L [id number] ####[facility] (BEAKER)[address] [place] [address] Glucose [Mass/Vol] 108 mg/dL High 70-100 [facility] Comment on above: Performed By: #### L [id number] ####[facility] (BEAKER)[address] [place] [address] Potassium [Moles/Vol] 3.9 mmol/L Normal 3.5-5.[address] [facility] Comment on above: Performed By: #### L [id number] ####[facility] ([facility])[address] [place] [address] Sodium [Moles/Vol] 140 mmol/L Normal 136-145 [facility] Comment on above: Performed By: #### L [id number] ####[facility] ([facility])[address] [place] [address] Urea nitrogen [Mass/Vol] 23 mg/dL Normal 7-25 [facility] Comment on above: Performed By: #### L [id number] ####[facility] ([facility])[address] [place] [address] UREA NITROGEN/CREATININE (MASS RATIO) IN SER/PLAS 47.9 Normal [facility] Comment on above: Performed By: #### L [id number] ####[facility] ([facility])[address] [place] [address] CBCon 03-21-2024 Erythrocyte distribution width (RBC) [Ratio] 13.7 % Normal 11.5-15.0 [facility] Comment on above: Performed By: #### L [id number] ####[facility] ([facility])[address] [place] [address] ERYTHROCYTE MEAN CORPUSCULAR HEMOGLOBIN CONCENTRATION (G/DL) BY AUTOMATED 32.4 g/dL Normal 32.0-35.0 [facility] Comment on above: Performed By: #### L [id number] ####[facility] (BEAKER)[address] [place] [address] Hematocrit (Bld) [Volume fraction] 32.4 % Low 36.0-48.0 [facility] Comment on above: Performed By: #### L [id number] ####[facility] ([facility])[address] [place] [address] Hemoglobin (Bld) [Mass/Vol] 10.5 g/dL Low 12.0-15.0 [facility] Comment on above: Performed By: #### L [id number] ####[facility] ([facility])[address] [place] [address] MCH (RBC) [Entitic mass] 29.2 pg Normal 27.0-33.0 [facility] Comment on above: Performed By: #### L [id number] ####[facility] ([facility])[address] [place] [id number] MCV (RBC) [Entitic vol] 90.3 fL Normal 82.0-98.0 [facility] Comment on above: Performed By: #### L [id number] ####[facility] ([facility])[address] [place] [id number] PLATELETS (10*3/UL) IN BLOOD AUTOMATED COUNT 288 10*3/uL Normal 150-400 [facility] Comment on above: Performed By: #### L [id number] ####[facility] LAB ([facility])[address] [place] [address] RBC (Bld) [#/Vol] 3.59 10*6/uL Low 3.80-5.00 [facility] Comment on above: Performed By: #### L [id number] ####[facility] ([facility])[address] [place] [address] WBC (Bld) [#/Vol] 7.45 10*3/uL Normal 4.00-10.60 [facility] Comment on above: Performed By: #### L [id number] ####[facility] LAB ([facility])[address] [place] [address] CONSULTon 03-21-2024 CONSULT Normal [facility] MAGNESIUMon 03-21-2024 Magnesium [Mass/Vol] 1.9 mg/dL Normal 1.9-2.7 [facility] Comment on above: Performed By: #### L [id number] ####[facility] (BEAKER)[address] [place] [address] MR BRAIN W AND WO CONTRASTon 03-21-2024 MR BRAIN W AND WO CONTRAST Invalid Interpretation Code [facility] PHOSPHORUSon 03-21-2024 Magnesium [Mass/Vol] 3.1 mg/dL Normal 2.5-5.0 [facility] Comment on above: Performed By: #### L [id number] ####[facility] LAB (BEAKER)[address] [place] [address] 30on 03-20-2024 30 Normal [facility] BASIC METABOLIC PANELon Anion gap [Moles/Vol] 15 mmol/L Normal 7-20 [facility] Comment on above: Performed By: #### L [id number] ####[facility] ([facility])[address] [place] [address] Calcium [Mass/Vol] 8.7 mg/dL Normal 8.6-10.3 [facility] Comment on above: Performed By: #### L [id number] ####[facility] LAB (BEAKER)[address] [place] [address] Chloride [Moles/Vol] 102 mmol/L Normal 98-107 [facility] Comment on above: Performed By: #### L [id number] ####[facility] ([facility])[address] [place] [address] CO2 [Moles/Vol] 25 mmol/L Normal 21-31 [facility] Comment on above: Performed By: #### L [id number] ####[facility] ([facility])[address] [place] [address] Creatinine [Mass/Vol] 0.39 mg/dL Low 0.60-1.20 [facility] Comment on above: Performed By: #### L [id number] ####[facility] ([facility])[address] [place] [address] GLOMERULAR FILTRATION RATE ML/MIN/1.73 SQ M.PREDICTED 110.4 mL/min/1.73m*2 Normal >60.0 [facility] Comment on above: Result Comment: The [facility]???s estimated glomerular filtration rate (eGFR) will no [...] of individuals. Performed By: #### L [id number] ####[facility] ([facility])[address] [place] [address] Glucose [Mass/Vol] 85 mg/dL Normal 70-100 [facility] Comment on above: Performed By: #### L [id number] ####[facility] ([facility])[address] [place] [address] Potassium [Moles/Vol] 3.5 mmol/L Normal 3.5-5.1 [facility] Comment on above: Performed By: #### L [id number] ####[facility] LAB ([facility])[address] [place] [address] Sodium [Moles/Vol] 138 mmol/L Normal 136-145 [facility] Comment on above: Performed By: #### L [id number] ####[facility] LAB (BEAKER)[address] [place] [address] Urea nitrogen [Mass/Vol] 8 mg/dL Normal 7-25 [facility] Comment on above: Performed By: #### L [id number] ####[facility] LAB ([facility])[address] [place] [address] UREA NITROGEN/CREATININE (MASS RATIO) IN SER/PLAS 20.5 Normal [facility] Comment on above: Performed By: #### L [id number] ####[facility] LAB ([facility])[address] [place] [address] CBCon 03-20-2024 Erythrocyte distribution width (RBC) [Ratio] 13.9 % Normal 11.5-15.0 [facility] Comment on above: Performed By: #### L [id number] ####[facility] LAB ([facility])[address] [place] [address] ERYTHROCYTE MEAN CORPUSCULAR HEMOGLOBIN CONCENTRATION (G/DL) BY AUTOMATED 32.1 g/dL Normal 32.0-35.0 [facility] Comment on above: Performed By: #### L [id number] ####[facility] ([facility])[address] [place] [address] Hematocrit (Bld) [Volume fraction] 32.1 % Low 36.0-48.0 [facility] Comment on above: Performed By: #### L [id number] ####[facility] ([facility])[address] [place] [address] Hemoglobin (Bld) [Mass/Vol] 10.3 g/dL Low 12.0-15.0 [facility] Comment on above: Performed By: #### L [id number] ####[facility] ([facility])[address] [place] [address] MCH (RBC) [Entitic mass] 29.5 pg Normal 27.0-33.0 [facility] Comment on above: Performed By: #### L [id number] ####[facility] LAB ([facility])[address] [place] [address] MCV (RBC) [Entitic vol] 92.0 fL Normal 82.0-98.0 [facility] Comment on above: Performed By: #### L [id number] ####[facility] LAB ([facility])[address] [place] [address] PLATELETS (10*3/UL) IN BLOOD AUTOMATED COUNT 243 10*3/uL Normal 150-400 [facility] Comment on above: Performed By: #### L [id number] ####[facility] ([facility])[address] [place] [address] RBC (Bld) [#/Vol] 3.49 10*6/uL Low 3.80-5.00 [facility] Comment on above: Performed By: #### L [id number] ####[facility] LAB ([facility])[address] [place] [address] WBC (Bld) [#/Vol] 6.86 10*3/uL Normal 4.00-10.60 [facility] Comment on above: Performed By: #### L [id number] ####[facility] LAB ([facility])[address] [place] [address] MAGNESIUMon 03-20-2024 Magnesium [Mass/Vol] 1.8 mg/dL Low 1.9-2.7 [facility] Comment on above: Performed By: #### L [id number] ####[facility] LAB ([facility])[address] [place] [address] PHOSPHORUSon 03-20-2024 Magnesium [Mass/Vol] 2.6 mg/dL Normal 2.5-5.0 [facility] Comment on above: Performed By: #### L [id number] ####[facility] LAB ([facility])[address] [place] [address] BASIC METABOLIC PANELon Anion gap [Moles/Vol] 10 mmol/L Normal 7-20 [facility] Comment on above: Performed By: #### L [id number] ####[facility] ([facility])[address] [place] [address] Calcium [Mass/Vol] 8.1 mg/dL Low 8.6-10.3 [facility] Comment on above: Performed By: #### L [id number] ####[facility] LAB ([facility])[address] [place] [address] Chloride [Moles/Vol] 107 mmol/L Normal 98-107 [facility] Comment on above: Performed By: #### L [id number] ####[facility] LAB ([facility])[address] [place] [address] CO2 [Moles/Vol] 27 mmol/L Normal 21-31 [facility] Comment on above: Performed By: #### L [id number] ####[facility] LAB ([facility])[address] [place] [address] Creatinine [Mass/Vol] 0.41 mg/dL Low 0.60-1.20 [facility] Comment on above: Performed By: #### L [id number] ####[facility] LAB ([facility])[address] [place] [address] GLOMERULAR FILTRATION RATE ML/MIN/1.73 SQ M.PREDICTED 109.1 mL/min/1.73m*2 Normal >60.0 [facility] Comment on above: Result Comment: The [facility]???s estimated glomerular filtration rate (eGFR) will no [...] of individuals. Performed By: #### L [id number] ####[facility] LAB ([facility])[address] [place] [address] Glucose [Mass/Vol] 107 mg/dL High 70-100 [facility] Comment on above: Performed By: #### L [id number] ####[facility] LAB ([facility])[address] [place] [address] Potassium [Moles/Vol] 3.6 mmol/L Normal 3.5-5.1 [facility] Comment on above: Performed By: #### L [id number] ####[facility] LAB ([facility])[address] [place] [address] Sodium [Moles/Vol] 140 mmol/L Normal 136-145 [facility] Comment on above: Performed By: #### L [id number] ####[facility] LAB ([facility])[address] [place] [address] Urea nitrogen [Mass/Vol] 6 mg/dL Low 7-25 [facility] Comment on above: Performed By: #### L [id number] ####[facility] LAB ([facility])[address] [place] [address] UREA NITROGEN/CREATININE (MASS RATIO) IN SER/PLAS 14.6 Normal [facility] Comment on above: Performed By: #### L [id number] ####[facility] LAB ([facility])[address] [place] [address] CBCon 03-19-2024 Erythrocyte distribution width (RBC) [Ratio] 14.6 % Normal 11.5-15.0 [facility] Comment on above: Performed By: #### L [id number] ####[facility] LAB ([facility])[address] [place] [address] ERYTHROCYTE MEAN CORPUSCULAR HEMOGLOBIN CONCENTRATION (G/DL) BY AUTOMATED 31.6 g/dL Low 32.0-35.0 [facility] Comment on above: Performed By: #### L [id number] ####[facility] LAB ([facility])[address] [place] [address] Hematocrit (Bld) [Volume fraction] 28.2 % Low 36.0-48.0 [facility] Comment on above: Performed By: #### L [id number] ####[facility] LAB ([facility])[address] [place] [address] Hemoglobin (Bld) [Mass/Vol] 8.9 g/dL Low 12.0-15.0 [facility] Comment on above: Performed By: #### L [id number] ####[facility] LAB ([facility])[address] [place] [address] MCH (RBC) [Entitic mass] 29.3 pg Normal 27.0-33.0 [facility] Comment on above: Performed By: #### L [id number] ####[facility] LAB ([facility])[address] [place] [address] MCV (RBC) [Entitic vol] 92.8 fL Normal 82.0-98.0 [facility] Comment on above: Performed By: #### L [id number] ####[facility] LAB ([facility])[address] [place] [address] PLATELETS (10*3/UL) IN BLOOD AUTOMATED COUNT 212 10*3/uL Normal 150-400 [facility] Comment on above: Performed By: #### L [id number] ####[facility] LAB ([facility])[address] [place] [address] RBC (Bld) [#/Vol] 3.04 10*6/uL Low 3.80-5.00 [facility] Comment on above: Performed By: #### L [id number] ####[facility] LAB ([facility])[address] [place] [address] WBC (Bld) [#/Vol] 6.98 10*3/uL Normal 4.00-10.60 [facility] Comment on above: Performed By: #### L [id number] ####[facility] LAB ([facility])[address] [place] [address] MAGNESIUMon 03-19-2024 Magnesium [Mass/Vol] 1.8 mg/dL Low 1.9-2.7 [facility] Comment on above: Performed By: #### L [id number] ####[facility] LAB ([facility])[address] [place] [address] PHOSPHORUSon 03-19-2024 Magnesium [Mass/Vol] 2.6 mg/dL Normal 2.5-5.0 [facility] Comment on above: Performed By: #### L [id number] ####[facility] LAB ([facility])[address] [place] [address] [id number] 2023 ALPHA-1 ANTITRYPSIN 294 mg/dL High 90-200 [facility] Comment on above: Result Comment: To c onvert to umol/L, multiply mg/dL by 0.185Performed By: [id number] [place], [place] [address]Evdlsvlwfe Director: Tip Hathaway MD, PhDCLIA Number: [id number] Performed By: #### L [id number] ####[facility] (BEAKER)[address] [place] [address] BASIC METABOLIC PANELon 09-0 Anion gap [Moles/Vol] 14 mmol/L Normal 7-20 [facility] Comment on above: Performed By: #### L [id number] ####[facility] (BE[facility]ER)[address] [place] [address] Calcium [Mass/Vol] 7.9 mg/dL Low 8.6-10.3 [facility] Comment on above: Performed By: #### L [id number] ####[facility] LAB (BEAKER)[address] [place] [address] Chloride [Moles/Vol] 108 mmol/L High 98-107 [facility] Comment on above: Performed By: #### L [id number] ####[facility] LAB (BEAKER)[address] [place] [address] CO2 [Moles/Vol] 23 mmol/L Normal 21-31 [facility] Comment on above: Performed By: #### L [id number] ####[facility] LAB (BEAKER)[address] [place] [address] Creatinine [Mass/Vol] 0.47 mg/dL Low 0.60-1.20 [facility] Comment on above: Performed By: #### L [id number] ####[facility] LAB (BEAKER)[address] [place] [address] GLOMERULAR FILTRATION RATE ML/MIN/1.73 SQ M.PREDICTED 105.6 mL/min/1.73m*2 Normal >60.0 [facility] Comment on above: Result Comment: The [facility]???s estimated glomerular filtration rate (eGFR) will no [...] of individuals. Performed By: #### L [id number] ####[facility] LAB ([facility])[address] [place] [address] Glucose [Mass/Vol] 103 mg/dL High 70-100 [facility] Comment on above: Performed By: #### L [id number] ####[facility] LAB ([facility])[address] [place] [address] Potassium [Moles/Vol] 3.6 mmol/L Normal 3.5-5.[address] [facility] Comment on above: Performed By: #### L [id number] ####[facility] LAB ([facility])[address] [place] [address] Sodium [Moles/Vol] 141 mmol/L Normal 136-145 [facility] Comment on above: Performed By: #### L [id number] ####[facility] ([facility])[address] [place] [address] Urea nitrogen [Mass/Vol] 6 mg/dL Low 7-25 [facility] Comment on above: Performed By: #### L [id number] ####[facility] LAB ([facility])[address] [place] [address] UREA NITROGEN/CREATININE (MASS RATIO) IN SER/PLAS 12.8 Normal [facility] Comment on above: Performed By: #### L [id number] ####[facility] ([facility])[address] [place] [address] Anion gap [Moles/Vol] 11 mmol/L Normal 7-[address] [facility] Comment on above: Performed By: #### L [id number] ####[facility] LAB ([facility])[address] [place] [address] Calcium [Mass/Vol] 8.1 mg/dL Low 8.6-10.3 [facility] Comment on above: Performed By: #### L [id number] ####[facility] ([facility])[address] [place] [address] Chloride [Moles/Vol] 108 mmol/L High 98-107 [facility] Comment on above: Performed By: #### L [id number] ####[facility] LAB ([facility])[address] [place] [address] CO2 [Moles/Vol] 23 mmol/L Normal 21-31 [facility] Comment on above: Performed By: #### L [id number] ####[facility] LAB ([facility])[address] [place] [address] Creatinine [Mass/Vol] 0.44 mg/dL Low 0.60-1.20 [facility] Comment on above: Performed By: #### L [id number] ####[facility] ([facility])[address] [place] [address] GLOMERULAR FILTRATION RATE ML/MIN/1.73 SQ M.PREDICTED 107.3 mL/min/1.73m*2 Normal >60.0 [facility] Comment on above: Result Comment: The [facility]???s estimated glomerular filtration rate (eGFR) will no [...] of individuals. Performed By: #### L [id number] ####[facility] LAB ([facility])[address] [place] [address] Glucose [Mass/Vol] 92 mg/dL Normal 70-100 [facility] Comment on above: Performed By: #### L [id number] ####[facility] (BEAKER)[address] [place] [address] Potassium [Moles/Vol] 3.6 mmol/L Normal 3.5-5.[address] [facility] Comment on above: Performed By: #### L [id number] ####[facility] LAB (BEAKER)[address] [place] [address] Sodium [Moles/Vol] 138 mmol/L Normal 136-145 [facility] Comment on above: Performed By: #### L [id number] ####[facility] LAB (BEAKER)[address] [place] [address] Urea nitrogen [Mass/Vol] 8 mg/dL Normal 7-25 [facility] Comment on above: Performed By: #### L [id number] ####[facility] LAB (BEAKER)[address] [place] [address] UREA NITROGEN/CREATININE (MASS RATIO) IN SER/PLAS 18.2 Normal [facility] Comment on above: Performed By: #### L [id number] ####[facility] LAB (BEAKER)[address] [place] [address] CBCon 03-18-2024 Erythrocyte distribution width (RBC) [Ratio] 14.6 % Normal 11.5-15.0 [facility] Comment on above: Performed By: #### L [id number] ####[facility] LAB (BEAKER)[address] [place] [address] ERYTHROCYTE MEAN CORPUSCULAR HEMOGLOBIN CONCENTRATION (G/DL) BY AUTOMATED 31.7 g/dL Low 32.0-35.0 [facility] Comment on above: Performed By: #### L [id number] ####[facility] LAB (BEAKER)[address] [place] [address] Hematocrit (Bld) [Volume fraction] 27.1 % Low 36.0-48.0 [facility] Comment on above: Performed By: #### L [id number] ####[facility] (BEAKER)[address] [place] [address] Hemoglobin (Bld) [Mass/Vol] 8.6 g/dL Low 12.0-15.0 [facility] Comment on above: Performed By: #### L [id number] ####[facility] LAB ([facility])[address] [place] [address] MCH (RBC) [Entitic mass] 29.3 pg Normal 27.0-33.0 [facility] Comment on above: Performed By: #### L [id number] ####[facility] LAB ([facility])[address] [place] [address] MCV (RBC) [Entitic vol] 92.2 fL Normal 82.0-98.0 [facility] Comment on above: Performed By: #### L [id number] ####[facility] LAB ([facility])[address] [place] [address] PLATELETS (10*3/UL) IN BLOOD AUTOMATED COUNT 167 10*3/uL Normal 150-400 [facility] Comment on above: Performed By: #### L [id number] ####[facility] ([facility])[address] [place] [address] RBC (Bld) [#/Vol] 2.94 10*6/uL Low 3.80-5.00 [facility] Comment on above: Performed By: #### L [id number] ####[facility] LAB ([facility])[address] [place] [address] WBC (Bld) [#/Vol] 8.17 10*3/uL Normal 4.00-10.60 [facility] Comment on above: Performed By: #### L [id number] ####[facility] LAB ([facility])[address] [place] [address] MAGNESIUMon 03-18-2024 Magnesium [Mass/Vol] 2.0 mg/dL Normal 1.9-2.7 [facility] Comment on above: Performed By: #### L [id number] ####[facility] LAB ([facility])[address] [place] [address] Magnesium [Mass/Vol] 1.7 mg/dL Low 1.9-2.7 [facility] Comment on above: Performed By: #### L [id number] ####[facility] LAB ([facility])[address] [place] [address] PHOSPHORUSon 03-18-2024 Magnesium [Mass/Vol] 3.4 mg/dL Normal 2.5-5.0 [facility] Comment on above: Performed By: #### L [id number] ####[facility] ([facility])[address] [place] [address] Magnesium [Mass/Vol] 2.4 mg/dL Low 2.5-5.0 [facility] Comment on above: Performed By: #### L [id number] ####[facility] ([facility])[address] [place] [address] TRIGLYCERIDESon 03-18-2024 FASTING? Unknown Normal [facility] Comment on above: Order Comment: Monit or triglycerides while patient is on propofol. Consult Nutrition if greater than 500 mg/dL. Performed By: #### L [id number] ####[facility] ([facility])[address] [place] [address] Magnesium [Mass/Vol] 116 mg/dL Normal 40-149 [facility] Comment on above: Order Comment: Monit or triglycerides while patient is on propofol. Consult Nutrition if greater than 500 mg/dL. Result Comment: TRIG LYCERIDE REFERENCE RANGE:20 YEARS AND OLDER CARDIOVASCULAR RISKLESS THAN 150 mg/dL LOW [id number] TO 199 mg/dL BORDERLINE [id number] mg/dL AND GREATER HIGH RISK Performed By: #### L [id number] ####[facility] ([facility])[address] [place] [address] 30on 03-17-2024 30 Normal [facility] AFB CULTUREon 03-17-2024 AFB CULTURE No growth at [address] [facility] Comment on above: Performed By: #### L [id number] ####[facility] ([facility])[address] [place] [address] AFB STAIN No acid fast bacilli seen Normal [facility] Comment on above: Performed By: #### L [id number] ####[facility] ([facility])[address] [place] [address] BASIC METABOLIC PANELon 09-0 Anion gap [Moles/Vol] 10 mmol/L Normal 7-20 [facility] Comment on above: Performed By: #### L [id number] ####[facility] ([facility])[address] [place] [address] Calcium [Mass/Vol] 8.0 mg/dL Low 8.6-10.3 [facility] Comment on above: Performed By: #### L [id number] ####[facility] LAB ([facility])[address] [place] [address] Chloride [Moles/Vol] 107 mmol/L Normal 98-107 [facility] Comment on above: Performed By: #### L [id number] ####[facility] ([facility])[address] [place] [address] CO2 [Moles/Vol] 23 mmol/L Normal 21-31 [facility] Comment on above: Performed By: #### L [id number] ####[facility] LAB ([facility])[address] [place] [address] Creatinine [Mass/Vol] 0.48 mg/dL Low 0.60-1.20 [facility] Comment on above: Performed By: #### L [id number] ####[facility] LAB ([facility])[address] [place] [address] GLOMERULAR FILTRATION RATE ML/MIN/1.73 SQ M.PREDICTED 105.0 mL/min/1.73m*2 Normal >60.0 [facility] Comment on above: Result Comment: The [facility]???s estimated glomerular filtration rate (eGFR) will no [...] of individuals. Performed By: #### L [id number] ####[facility] ([facility])[address] [place] [address] Glucose [Mass/Vol] 101 mg/dL High 70-100 [facility] Comment on above: Performed By: #### L [id number] ####[facility] ([facility])[address] [place] [address] Potassium [Moles/Vol] 3.4 mmol/L Low 3.5-5.[address] [facility] Comment on above: Performed By: #### L [id number] ####[facility] ([facility])[address] [place] [address] Sodium [Moles/Vol] 137 mmol/L Normal 136-145 [facility] Comment on above: Performed By: #### L [id number] ####[facility] ([facility])[address] [place] [address] Urea nitrogen [Mass/Vol] 8 mg/dL Normal 7-25 [facility] Comment on above: Performed By: #### L [id number] ####[facility] ([facility])[address] [place] [address] UREA NITROGEN/CREATININE (MASS RATIO) IN SER/PLAS 16.7 Normal [facility] Comment on above: Performed By: #### L [id number] ####[facility] ([facility])[address] [place] [address] CBCon 03-17-2024 Erythrocyte distribution width (RBC) [Ratio] 14.7 % Normal 11.5-15.0 [facility] Comment on above: Performed By: #### L [id number] ####[facility] ([facility])[address] [place] [address] ERYTHROCYTE MEAN CORPUSCULAR HEMOGLOBIN CONCENTRATION (G/DL) BY AUTOMATED 32.0 g/dL Normal 32.0-35.0 [facility] Comment on above: Performed By: #### L [id number] ####[facility] ([facility])[address] [place] [address] Hematocrit (Bld) [Volume fraction] 29.7 % Low 36.0-48.0 [facility] Comment on above: Performed By: #### L [id number] ####[facility] ([facility])[address] [place] [address] Hemoglobin (Bld) [Mass/Vol] 9.5 g/dL Low 12.0-15.0 [facility] Comment on above: Performed By: #### L [id number] ####[facility] ([facility])[address] [place] [address] MCH (RBC) [Entitic mass] 29.9 pg Normal 27.0-33.0 [facility] Comment on above: Performed By: #### L [id number] ####[facility] ([facility])[address] [place] [address] MCV (RBC) [Entitic vol] 93.4 fL Normal 82.0-98.0 [facility] Comment on above: Performed By: #### L [id number] ####[facility] ([facility])[address] [place] [address] PLATELETS (10*3/UL) IN BLOOD AUTOMATED COUNT 186 10*3/uL Normal 150-400 [facility] Comment on above: Performed By: #### L [id number] ####[facility] ([facility])[address] [place] [address] RBC (Bld) [#/Vol] 3.18 10*6/uL Low 3.80-5.00 [facility] Comment on above: Performed By: #### L [id number] ####[facility] ([facility])[address] [place] [address] WBC (Bld) [#/Vol] 8.27 10*3/uL Normal 4.00-10.60 [facility] Comment on above: Performed By: #### L [id number] ####[facility] ([facility])[address] [place] [address] Erythrocyte distribution width (RBC) [Ratio] 14.6 % Normal 11.5-15.0 [facility] Comment on above: Performed By: #### L [id number] ####[facility] ([facility])[address] [place] [address] ERYTHROCYTE MEAN CORPUSCULAR HEMOGLOBIN CONCENTRATION (G/DL) BY AUTOMATED 31.4 g/dL Low 32.0-35.0 [facility] Comment on above: Performed By: #### L [id number] ####[facility] ([facility])[address] [place] [address] Hematocrit (Bld) [Volume fraction] 30.3 % Low 36.0-48.0 [facility] Comment on above: Performed By: #### L [id number] ####[facility] ([facility])[address] [place] [address] Hemoglobin (Bld) [Mass/Vol] 9.5 g/dL Low 12.0-15.0 [facility] Comment on above: Performed By: #### L [id number] ####[facility] ([facility])[address] [place] [address] MCH (RBC) [Entitic mass] 29.3 pg Normal 27.0-33.0 [facility] Comment on above: Performed By: #### L [id number] ####[facility] ([facility])[address] [place] [address] MCV (RBC) [Entitic vol] 93.5 fL Normal 82.0-98.0 [facility] Comment on above: Performed By: #### L [id number] ####[facility] ([facility])[address] [place] [address] PLATELETS (10*3/UL) IN BLOOD AUTOMATED COUNT 185 10*3/uL Normal 150-400 [facility] Comment on above: Performed By: #### L [id number] ####[facility] ([facility])[address] [place] [address] RBC (Bld) [#/Vol] 3.24 10*6/uL Low 3.80-5.00 [facility] Comment on above: Performed By: #### L [id number] ####[facility] ([facility])[address] [place] [address] WBC (Bld) [#/Vol] 9.38 10*3/uL Normal 4.00-10.60 [facility] Comment on above: Performed By: #### L [id number] ####[facility] ([facility])[address] [address] FUNGAL CULTUREon 03-17-2024 FUNGAL SMEAR No yeast or fungal e lements seen Normal [facility] Comment on above: Performed By: #### L [id number] ####[facility] ([facility])[address] [place] [address] HEMOGLOBIN AND HEMATOCRIT, B LOODon 03-17-2024 Hematocrit (Bld) [Volume fraction] 27.7 % Low 36.0-48.0 [facility] Comment on above: Performed By: #### L [id number] ####[facility] ([facility])[address] [address] Hemoglobin (Bld) [Mass/Vol] 9.0 g/dL Low 12.0-15.0 [facility] Comment on above: Performed By: #### L [id number] ####[facility] ([facility])[address] [address] MAGNESIUMon 03-17-2024 Magnesium [Mass/Vol] 1.9 mg/dL Normal 1.9-2.7 [facility] Comment on above: Performed By: #### L [id number] ####[facility] ([facility])[address] [place] [address] PHOSPHORUSon 03-17-2024 Magnesium [Mass/Vol] 2.2 mg/dL Low 2.5-5.0 [facility] Comment on above: Performed By: #### L [id number] ####[facility] ([facility])[address] [place] [address] SPUTUM CULTUREon 03-17-2024 GRAM STAIN RESULT Normal [facility] Comment on above: Order Comment: Light Growth Colonies Consistent with Upper Respiratory Li Result Comment: <10 Epithelial cells per low power field>25 Polys Per Low Power FieldRare Gram positive cocci in clustersRare Gram negative bacilli Performed By: #### L [id number] ####[facility] ([facility])[address] [place] [address] TROPONIN Ion 03-17-2024 Troponin I.cardiac [Mass/Vol] 0.08 ng/mL High 0.00-0.04 [facility] Comment on above: Performed By: #### L [id number] ####[facility] ([facility])[address] [place] [address] Troponin I.cardiac [Mass/Vol] 0.06 ng/mL High 0.00-0.04 [facility] Comment on above: Performed By: #### L [id number] ####[facility] ([facility])[address] [place] [address] VANCOMYCIN, TROUGHon 024 VANCOMYCIN (UG/ML) IN SER/PLAS - TROUGH 4.5 ug/mL Low 5.0-20.0 [facility] Comment on above: Performed By: #### L [id number] ####[facility] ([facility])[address] [place] [address] BASIC METABOLIC PANELon 3 Anion gap [Moles/Vol] 12 mmol/L Normal 7-20 [facility] Comment on above: Performed By: #### L [id number] ####[facility] ([facility])[address] [place] [address] Calcium [Mass/Vol] 7.9 mg/dL Low 8.6-10.3 [facility] Comment on above: Performed By: #### L [id number] ####[facility] ([facility])[address] [place] [address] Chloride [Moles/Vol] 105 mmol/L Normal 98-107 [facility] Comment on above: Performed By: #### L [id number] ####[facility] ([facility])[address] [place] [address] CO2 [Moles/Vol] 22 mmol/L Normal 21-31 [facility] Comment on above: Performed By: #### L [id number] ####[facility] ([facility])[address] [place] [address] Creatinine [Mass/Vol] 0.65 mg/dL Normal 0.60-1.20 [facility] Comment on above: Performed By: #### L [id number] ####[facility] ([facility])[address] [place] [address] GLOMERULAR FILTRATION RATE ML/MIN/1.73 SQ M.PREDICTED 97.6 mL/min/1.73m*2 Normal >60.0 [facility] Comment on above: Result Comment: The [facility]???s estimated glomerular filtration rate (eGFR) will no [...] of individuals. Performed By: #### L [id number] ####[facility] ([facility])[address] [place] [address] Glucose [Mass/Vol] 95 mg/dL Normal 70-100 [facility] Comment on above: Performed By: #### L [id number] ####[facility] ([facility])[address] [place] [address] Potassium [Moles/Vol] 3.3 mmol/L Low 3.5-5.1 [facility] Comment on above: Performed By: #### L [id number] ####[facility] ([facility])[address] [place] [address] Sodium [Moles/Vol] 136 mmol/L Normal 136-145 [facility] Comment on above: Performed By: #### L [id number] ####[facility] ([facility])[address] [place] [address] Urea nitrogen [Mass/Vol] 9 mg/dL Normal 7-25 [facility] Comment on above: Performed By: #### L [id number] ####[facility] ([facility])[address] [place] [address] UREA NITROGEN/CREATININE (MASS RATIO) IN SER/PLAS 13.8 Normal [facility] Comment on above: Performed By: #### L [id number] ####[facility] ([facility])[address] [place] [address] CBCon 03-16-2024 Erythrocyte distribution width (RBC) [Ratio] 14.7 % Normal 11.5-15.0 [facility] Comment on above: Performed By: #### L [id number] ####[facility] ([facility])[address] [place] [address] ERYTHROCYTE MEAN CORPUSCULAR HEMOGLOBIN CONCENTRATION (G/DL) BY AUTOMATED 31.8 g/dL Low 32.0-35.0 [facility] Comment on above: Performed By: #### L [id number] ####[facility] ([facility])[address], [place] [address] Hematocrit (Bld) [Volume fraction] 30.8 % Low 36.0-48.0 [facility] Comment on above: Performed By: #### L [id number] ####[facility] ([facility])[address], [place] [address] Hemoglobin (Bld) [Mass/Vol] 9.8 g/dL Low 12.0-15.0 [facility] Comment on above: Performed By: #### L [id number] ####[facility] ([facility])[address] [place] [address] MCH (RBC) [Entitic mass] 29.4 pg Normal 27.0-33.0 [facility] Comment on above: Performed By: #### L [id number] ####[facility] ([facility])[address] [address] MCV (RBC) [Entitic vol] 92.5 fL Normal 82.0-98.0 [facility] Comment on above: Performed By: #### L [id number] ####[facility] ([facility])[address] [place] [address] PLATELETS (10*3/UL) IN BLOOD AUTOMATED COUNT 179 10*3/uL Normal 150-400 [facility] Comment on above: Performed By: #### L [id number] ####[facility] ([facility])[address] [place] [address] RBC (Bld) [#/Vol] 3.33 10*6/uL Low 3.80-5.00 [facility] Comment on above: Performed By: #### L [id number] ####[facility] ([facility])[address] [place] [address] WBC (Bld) [#/Vol] 9.45 10*3/uL Normal 4.00-10.60 [facility] Comment on above: Performed By: #### L [id number] ####[facility] ([facility])[address] [place] [address] Erythrocyte distribution width (RBC) [Ratio] 14.7 % Normal 11.5-15.0 [facility] Comment on above: Performed By: #### L [id number] ####[facility] ([facility])[address] [place] [address] ERYTHROCYTE MEAN CORPUSCULAR HEMOGLOBIN CONCENTRATION (G/DL) BY AUTOMATED 32.0 g/dL Normal 32.0-35.0 [facility] Comment on above: Performed By: #### L [id number] ####[facility] ([facility])[address] [place] [address] Hematocrit (Bld) [Volume fraction] 30.6 % Low 36.0-48.0 [facility] Comment on above: Performed By: #### L [id number] ####[facility] ([facility])[address] [place] [address] Hemoglobin (Bld) [Mass/Vol] 9.8 g/dL Low 12.0-15.0 [facility] Comment on above: Performed By: #### L [id number] ####[facility] ([facility])[address] [place] [address] MCH (RBC) [Entitic mass] 30.0 pg Normal 27.0-33.0 [facility] Comment on above: Performed By: #### L [id number] ####[facility] ([facility])[address], [place] [address] MCV (RBC) [Entitic vol] 93.6 fL Normal 82.0-98.0 [facility] Comment on above: Performed By: #### L [id number] ####[facility] ([facility])[address] [place] [address] PLATELETS (10*3/UL) IN BLOOD AUTOMATED COUNT 177 10*3/uL Normal 150-400 [facility] Comment on above: Performed By: #### L [id number] ####[facility] ([facility])[address] [place] [address] RBC (Bld) [#/Vol] 3.27 10*6/uL Low 3.80-5.00 [facility] Comment on above: Performed By: #### L [id number] ####[facility] ([facility])[address] [place] [address] WBC (Bld) [#/Vol] 10.10 10*3/uL Normal 4.00-10.60 [facility] Comment on above: Performed By: #### L [id number] ####[facility] ([facility])[address] [place] [address] Erythrocyte distribution width (RBC) [Ratio] 14.9 % Normal 11.5-15.0 [facility] Comment on above: Performed By: #### L [id number] ####[facility] ([facility])[address] [place] [address] ERYTHROCYTE MEAN CORPUSCULAR HEMOGLOBIN CONCENTRATION (G/DL) BY AUTOMATED 31.0 g/dL Low 32.0-35.0 [facility] Comment on above: Performed By: #### L [id number] ####[facility] ([facility])[address] [place] [address] Hematocrit (Bld) [Volume fraction] 37.4 % Normal 36.0-48.0 [facility] Comment on above: Performed By: #### L [id number] ####[facility] ([facility])[address] [place] [address] Hemoglobin (Bld) [Mass/Vol] 11.6 g/dL Low 12.0-15.0 [facility] Comment on above: Performed By: #### L [id number] ####[facility] ([facility])[address] [place] [address] MCH (RBC) [Entitic mass] 30.1 pg Normal 27.0-33.0 [facility] Comment on above: Performed By: #### L [id number] ####[facility] ([facility])[address] [place] [address] MCV (RBC) [Entitic vol] 96.9 fL Normal 82.0-98.0 [facility] Comment on above: Performed By: #### L [id number] ####[facility] ([facility])[address] [place] [address] PLATELETS (10*3/UL) IN BLOOD AUTOMATED COUNT 179 10*3/uL Normal 150-400 [facility] Comment on above: Performed By: #### L [id number] ####[facility] ([facility])[address] [place] [address] RBC (Bld) [#/Vol] 3.86 10*6/uL Normal 3.80-5.00 [facility] Comment on above: Performed By: #### L [id number] ####[facility] ([facility])[address] [place] [address] WBC (Bld) [#/Vol] 12.28 10*3/uL High 4.00-10.60 [facility] Comment on above: Performed By: #### L [id number] ####[facility] ([facility])[address] [place] [address] HEMOGLOBIN AND HEMATOCRIT, B LOODon 03-16-2024 Hematocrit (Bld) [Volume fraction] 29.0 % Low 36.0-48.0 [facility] Comment on above: Performed By: #### L [id number] ####[facility] ([facility])[address] [place] [address] Hemoglobin (Bld) [Mass/Vol] 9.4 g/dL Low 12.0-15.0 [facility] Comment on above: Performed By: #### L [id number] ####[facility] ([facility])[address] [place] [address] Hematocrit (Bld) [Volume fraction] 31.8 % Low 36.0-48.0 [facility] Comment on above: Performed By: #### L [id number] ####[facility] ([facility])[address] [place] [address] Hemoglobin (Bld) [Mass/Vol] 9.9 g/dL Low 12.0-15.0 [facility] Comment on above: Performed By: #### L [id number] ####[facility] ([facility])[address] [place] [address] Hematocrit (Bld) [Volume fraction] 30.0 % Low 36.0-48.0 [facility] Comment on above: Performed By: #### L [id number] ####[facility] ([facility])[address] [place] [address] Hemoglobin (Bld) [Mass/Vol] 9.6 g/dL Low 12.0-15.0 [facility] Comment on above: Performed By: #### L [id number] ####[facility] ([facility])[address] [place] [address] MAGNESIUMon 03-16-2024 Magnesium [Mass/Vol] 1.7 mg/dL Low 1.9-2.7 [facility] Comment on above: Performed By: #### L [id number] ####[facility] ([facility])[address] [place] [address] PHOSPHORUSon 03-16-2024 Magnesium [Mass/Vol] 2.4 mg/dL Low 2.5-5.0 [facility] Comment on above: Performed By: #### L [id number] ####[facility] ([facility])[address] [place] [address] TROPONIN Ion 03-16-2024 Troponin I.cardiac [Mass/Vol] 0.05 ng/mL High 0.00-0.04 [facility] Comment on above: Performed By: #### L [id number] ####[facility] ([facility])[address] [place] [address] Troponin I.cardiac [Mass/Vol] 0.05 ng/mL High 0.00-0.04 [facility] Comment on above: Performed By: #### L [id number] ####[facility] ([facility])[address] [place] [address] Troponin I.cardiac [Mass/Vol] 0.03 ng/mL Normal 0.00-0.04 [facility] Comment on above: Performed By: #### L [id number] ####[facility] ([facility])[address] [place] [address] Troponin I.cardiac [Mass/Vol] 0.02 ng/mL Normal 0.00-0.04 [facility] Comment on above: Performed By: #### L [id number] ####[facility] ([facility])[address] [place] [address] Troponin I.cardiac [Mass/Vol] 0.07 ng/mL High 0.00-0.04 [facility] Comment on above: Performed By: #### L [id number] ####[facility] ([facility])[address] [place] [address] VANCOMYCIN, PEAKon 4 VANCOMYCIN (UG/ML) IN SER/PLAS - PEAK 13.4 ug/mL Low 20.0-50.0 [facility] Comment on above: Performed By: #### L [id number] ####[facility] ([facility])[address] [place] [address] 30on 03-15-2023 30 Normal [facility] BASIC METABOLIC PANELon 02-16 Anion gap [Moles/Vol] 10 mmol/L Normal 7-20 [facility] Comment on above: Performed By: #### L [id number] ####[facility] ([facility])[address] [place] [address] Calcium [Mass/Vol] 7.9 mg/dL Low 8.6-10.3 [facility] Comment on above: Performed By: #### L [id number] ####[facility] ([facility])[address] [place] [address] Chloride [Moles/Vol] 110 mmol/L High 98-107 [facility] Comment on above: Performed By: #### L [id number] ####[facility] ([facility])[address] [place] [address] CO2 [Moles/Vol] 23 mmol/L Normal 21-31 [facility] Comment on above: Performed By: #### L [id number] ####[facility] ([facility])[address] [place] [address] Creatinine [Mass/Vol] 0.59 mg/dL Low 0.60-1.20 [facility] Comment on above: Performed By: #### L [id number] ####[facility] ([facility])[address] [place] [address] GLOMERULAR FILTRATION RATE ML/MIN/1.73 SQ M.PREDICTED 100.0 mL/min/1.73m*2 Normal >60.0 [facility] Comment on above: Result Comment: The [facility]???s estimated glomerular filtration rate (eGFR) will no [...] of individuals. Performed By: #### L [id number] ####[facility] ([facility])[address] [place] [address] Glucose [Mass/Vol] 103 mg/dL High 70-100 [facility] Comment on above: Performed By: #### L [id number] ####[facility] ([facility])[address] [place] [address] Potassium [Moles/Vol] 3.6 mmol/L Normal 3.5-5.[address] [facility] Comment on above: Performed By: #### L [id number] ####[facility] ([facility])[address] [place] [address] Sodium [Moles/Vol] 139 mmol/L Normal 136-145 [facility] Comment on above: Performed By: #### L [id number] ####[facility] ([facility])[address] [place] [address] Urea nitrogen [Mass/Vol] 11 mg/dL Normal 7-25 [facility] Comment on above: Performed By: #### L [id number] ####[facility] ([facility])[address] [place] [address] UREA NITROGEN/CREATININE (MASS RATIO) IN SER/PLAS 18.6 Normal [facility] Comment on above: Performed By: #### L [id number] ####[facility] ([facility])[address] [place] [address] Anion gap [Moles/Vol] 9 mmol/L Normal 7-20 [facility] Comment on above: Performed By: #### L [id number] ####[facility] ([facility])[address] [place] [address] Calcium [Mass/Vol] 7.9 mg/dL Low 8.6-10.3 [facility] Comment on above: Performed By: #### L [id number] ####[facility] ([facility])[address] [place] [address] Chloride [Moles/Vol] 107 mmol/L Normal 98-107 [facility] Comment on above: Performed By: #### L [id number] ####[facility] ([facility])[address] [place] [address] CO2 [Moles/Vol] 24 mmol/L Normal 21-31 [facility] Comment on above: Performed By: #### L [id number] ####[facility] ([facility])[address] [place] [address] Creatinine [Mass/Vol] 0.65 mg/dL Normal 0.60-1.20 [facility] Comment on above: Performed By: #### L [id number] ####[facility] ([facility])[address] [place] [address] GLOMERULAR FILTRATION RATE ML/MIN/1.73 SQ M.PREDICTED 97.6 mL/min/1.73m*2 Normal >60.0 [facility] Comment on above: Result Comment: The [facility]???s estimated glomerular filtration rate (eGFR) will no [...] of individuals. Performed By: #### L [id number] ####[facility] ([facility])[address] [place] [address] Glucose [Mass/Vol] 117 mg/dL High 70-100 [facility] Comment on above: Performed By: #### L [id number] ####[facility] ([facility])[address] [place] [address] Potassium [Moles/Vol] 3.8 mmol/L Normal 3.5-5.[address] [facility] Comment on above: Performed By: #### L [id number] ####[facility] ([facility])[address] [place] [address] Sodium [Moles/Vol] 136 mmol/L Normal 136-145 [facility] Comment on above: Performed By: #### L [id number] ####[facility] ([facility])[address] [place] [address] Urea nitrogen [Mass/Vol] 15 mg/dL Normal 7-25 [facility] Comment on above: Performed By: #### L [id number] ####[facility] ([facility])[address] [place] [address] UREA NITROGEN/CREATININE (MASS RATIO) IN SER/PLAS 23.1 Normal [facility] Comment on above: Performed By: #### L [id number] ####[facility] ([facility])[address] [place] [address] CBCon 03-15-2024 Erythrocyte distribution width (RBC) [Ratio] 14.7 % Normal 11.5-15.0 [facility] Comment on above: Performed By: #### L [id number] ####[facility] ([facility])[address] [place] [address] ERYTHROCYTE MEAN CORPUSCULAR HEMOGLOBIN CONCENTRATION (G/DL) BY AUTOMATED 31.5 g/dL Low 32.0-35.0 [facility] Comment on above: Performed By: #### L [id number] ####[facility] ([facility])[address] [place] [address] Hematocrit (Bld) [Volume fraction] 28.9 % Low 36.0-48.0 [facility] Comment on above: Performed By: #### L [id number] ####[facility] ([facility])[address] [address] Hemoglobin (Bld) [Mass/Vol] 9.1 g/dL Low 12.0-15.0 [facility] Comment on above: Performed By: #### L [id number] ####[facility] ([facility])[address] [address] MCH (RBC) [Entitic mass] 29.4 pg Normal 27.0-33.0 [facility] Comment on above: Performed By: #### L [id number] ####[facility] ([facility])[address] [address] MCV (RBC) [Entitic vol] 93.5 fL Normal 82.0-98.0 [facility] Comment on above: Performed By: #### L [id number] ####[facility] ([facility])[address] [place] [address] PLATELETS (10*3/UL) IN BLOOD AUTOMATED COUNT 170 10*3/uL Normal 150-400 [facility] Comment on above: Performed By: #### L [id number] ####[facility] ([facility])[address] [address] RBC (Bld) [#/Vol] 3.09 10*6/uL Low 3.80-5.00 [facility] Comment on above: Performed By: #### L [id number] ####[facility] ([facility])[address], [place] [address] WBC (Bld) [#/Vol] 6.38 10*3/uL Normal 4.00-10.60 [facility] Comment on above: Performed By: #### L [id number] ####[facility] ([facility])[address], [place] [address] Erythrocyte distribution width (RBC) [Ratio] 14.9 % Normal 11.5-15.0 [facility] Comment on above: Performed By: #### L [id number] ####[facility] ([facility])[address] [place] [address] ERYTHROCYTE MEAN CORPUSCULAR HEMOGLOBIN CONCENTRATION (G/DL) BY AUTOMATED 32.0 g/dL Normal 32.0-35.0 [facility] Comment on above: Performed By: #### L [id number] ####[facility] ([facility])[address] [address] Hematocrit (Bld) [Volume fraction] 28.4 % Low 36.0-48.0 [facility] Comment on above: Performed By: #### L [id number] ####[facility] ([facility])[address] [address] Hemoglobin (Bld) [Mass/Vol] 9.1 g/dL Low 12.0-15.0 [facility] Comment on above: Performed By: #### L [id number] ####[facility] ([facility])[address] [place] [address] MCH (RBC) [Entitic mass] 29.7 pg Normal 27.0-33.0 [facility] Comment on above: Performed By: #### L [id number] ####[facility] ([facility])[address] [place] [address] MCV (RBC) [Entitic vol] 92.8 fL Normal 82.0-98.0 [facility] Comment on above: Performed By: #### L [id number] ####[facility] ([facility])[address] [place] [address] PLATELETS (10*3/UL) IN BLOOD AUTOMATED COUNT 180 10*3/uL Normal 150-400 [facility] Comment on above: Performed By: #### L [id number] ####[facility] ([facility])[address] [place] [address] RBC (Bld) [#/Vol] 3.06 10*6/uL Low 3.80-5.00 [facility] Comment on above: Performed By: #### L [id number] ####[facility] ([facility])[address] [place] [address] WBC (Bld) [#/Vol] 5.62 10*3/uL Normal 4.00-10.60 [facility] Comment on above: Performed By: #### L [id number] ####[facility] ([facility])[address] [place] [address] CYSTIC FIBROSIS EXPANDED CHIARA IANT PANELon 03-15-2024 CYSTIC FIBROSIS 5T VARIANT Negative Normal [facility] Comment on above: Performed By: #### L [id number] ####[facility] ([facility])[address] [place] [address] CYSTIC FIBROSIS EXPANDED VARIANT PANEL INTERP 0 variants Normal [facility] Comment on above: Result Comment: None of the CFTR variants tested by the cystic fibrosis (CF)variant panel (including the mild 5T variant) were detected. Thus,this individual's risk to be affected with classic CF, or aCFTR-related disorder (i.e., bronchiectasis, bilateral absence ofthe vas deferens or pancreatitis), is reduced. The chart belowindicates the percentage of individuals with classic CF who arepredicted to have no detectable variants identified by this test.Individuals with CFTR-related disorders are more likely to havemild CF variants which are undetectable by this assay. If thereremains concern that this individual is affected with classic CFor a CFTR-related disorder, consider ordering Cystic Fibrosis(CFTR) Sequencing and Deletion/Duplication ([employer] test [id number]) to detect rare CFTR variants not tested by this assay. Ifthere is a family history of CF, please contact an [employer] geneticcounselor ([phone]) and provide the specific familialvariants to confirm they were tested by this assay.Ethnicity Classic CF Patients with No Detectable Severe Variants by CF Variant PanelAfrican Mosotho 5%Ashkenazi Quaker 1% Mosotho 20% 1% Mosotho 4%Specimen: Whole BloodSymptoms: YesFamily History: UnknownThis result has been reviewed and approved by Francia Vasquez M.D.BACKGROUND INFORMATION: Cystic Fibrosis (CFTR), Expanded Variant PanelCHARACTERISTICS OF CYSTIC FIBROSIS (CF): Chronic sinopulmonarydisease, gastrointestinal malabsorption/pancreatic insufficiency,and obstructive azoospermia. Symptoms of CFTR-related disordersinclude: pancreatitis, bilateral absence of the vas deferens,nasal polyposis, and bronchiectasis.INCIDENCE: 1 in 2,300 Ashkenazi Quaker, 1 in 2,500 Caucasians, 1in 13,500 Hispanics, 1 in 15,100 Americans, 1 in 35,100Asians.INHERITANCE: Autosomal recessive.PENETRANCE: High for severe pathogenic variants and variable forvariants of varying clinical consequences.Cause of CF: Two severe pathogenic CFTR variants on oppositechromosomes.Cause of CFTR-related disorders: Two pathogenic CFTR variants onopposite chromosomes, at least one of which is classified as mildor a variant of varying clinical consequences.VARIANTS TESTED:*Note: variants are listed by standard nomenclature. Legacy namesare also provided for the 23 recommended ACMG variants.c.1A>G, p.Obi8Uod; c.54-8330_273+39631wzw64yy, Exons 2-3del;c.115C>T, p.Gln39X; c.178G>T, p.Glu60X; c.200C>T, p.Hjl91Pyc;c.223C>T, p.Arg75X; c.254G>A (Legacy G85E), p.Euz92Oqv;c.262_263delTT, p.Tgu78IsztyI37 (aka p.Zoc91jl); c.273+1G>A,Intronic; c.273+3A>C, Intronic; c.274-1G>A, Intronic; c.274G>A,p.Ksl60Aei; c.274G>T, p.Glu92X; c.292C>T, p.Gln98X; c.313delA,p.Jhr893VgzrvZ8 (aka p.Xjh846ff); c.325_327delTATinsG,p.Tyx882BexevI7 (aka p.Zai372ix); c.328G>C, p.Tfn477Tlu; c.349C>T,p.Jrx501Ksu; c.350G>A (Legacy R117H), p.Oyh941Kxu; c.366T>A,p.Wua868G; c.442delA, p.Ggt252PfenjM5 (aka p.Xvi534kc); c.489+1G>T(Legacy 621+1G>T), Intronic; c.531delT, p.Zqj079IaiijD24 (akap.Wij107gt); c.532G>A, p.Ffa826Joy; c.579+1G>T (Legacy 711+1G>T),Intronic; c.579+5G>A, Intronic; c.579+3A>G, Intronic; c.580-1G>T,Intronic; c.595C>T, p.Jpw575Nsm; c.613C>T, p.Ezp231Eti; c.617T>G,p.Dvt833Jrr; c.658C>T, p.Anb686S; c.680T>G, p.Dvx908Wai;c.722_743del, p.Zxg414UjkhfP04 (aka p.Mem256lc); c.803delA,p.Xyb282RghiiV70 (aka p.Nvf992mp); c.805_806delAT, p.Jow700NjpjjI3(aka p.Efz599la); c.935_937delTCT, p.Hsf826kim; c.948delT,p.Mqs972XfopsA23 (aka p.Lhf668tm); c.988G>T, p.Yru072V; c.1000C>T(Legacy R334W), p.Wqs140Egx; c.1007T>A, p.Qzj772Nfk; c.1021T>C,p.Mgf527Wsn; c.1021_1022dupTC, p.Zyn729BfrlmJ36 (aka p.Mml147zk);c.1040G>A, p.Ndb617Nwv; c.1040G>C (Legacy R347P), p.Zzi566Szk;c.1055G>A, p.Dck375Cne; c.1081delT, p.Tkf347WnngaE2 (akap.Xdt401ac); c.1116+1G>A, Intronic; c.1130dupA, p.Hne655MbafjY6(aka p.Pxt363mo); c.1155_1156dupTA, p.Yuk176VhqccK2 (akap.Ahh572gy); c.1202G>A, p.Apz058Y; c.1203G>A, p.Sol425P;c.1209+1G>A, Intronic; c.1327_1330dupGATA, p.Xck532HztleZ4 (akap.Lzf616ga); c.1340delA, p.Tjn724RunpxR7 (aka p.Wak291qi);c.1364C>A (Legacy A455E), p.Lik965Kuk; c.1393-1G>A, Intronic;c.1397C>A, p.Vhv460R; c.1397C>G, p.Fft599Z; c.1400T>C,p.Otb238Ztn; c.1418delG, p.Wmn926EqvcgY72 (aka p.Lqe955ac);c.1438G>T, p.Rkc863Fwd; c.1466C>A, p.Sru589Y; c.1475C>T,p.Oui683Itn; c.1477C>T, p.Wwj874H; c.1519_1521delATC (GlzdgfE468nvl), p.Cal692egi; c.1521_1523delCTT (Legacy K959lzz),p.Yys728vct; c.1545_1546delTA, p.Zok132N; c.1558G>T, p.Juu234Yrg;c.1572C>A, p.Gcp185G; c.1573C>T, p.Rzz439W; c.1585-1G>A (Foikha1400-6R>A), Intronic; c.1585-8G>A, Intronic; c.1624G>T (EeogmkL445A), p.Dhp464E; c.1645A>C, p.Nil724Eqr; c.1646G>A, p.Nwh414Rpi;c.1647T>G, p.Mhs582Xkj; c.1651G>A, p.Ssv716Rtb; c.1652G>A (FwvaezF078U), p.Zgg399Bbx; c.1654C>T, p.Lmk640C; c.1657C>T (LlgegeW553C), p.Pbi786U; c.1675G>A, p.Tej532Bqg; c.1679G>A, p.Hyw231Cvj;c.1679G>C (Legacy R560T), p.Fhb664Xrf; c.1680-886A>G, Intronic;c.1680-1G>A, Intronic; c.1703delT, p.Vbq289PussvW9 (akap.Vts675jq); c.1705T>G, p.Lfv441Hvk; c.1721C>A, p.Ifi869Gtp;c.1753G>T, p.Wle482U; c.1766+1G>A (Legacy 1898+1G>A), Intronic;c.1766+3A>G, Intronic; c.1792_1798delAAAACTA, p.Kxv109XnoqvK81(aka p.Ysu977cr); c.1911delG, p.Khq604HzjdcZ65 (aka p.Ufo298nf);c.1923_1931del9insA, p.Qdv308HgyucE5 (aka p.Zsf247jx);c.1972_1984del13insAGAAA, p.Pzo874LmrveJ5 (aka p.Jmm677vz);c.1975delA, p.Ikj462XkqjnQ7 (aka p.Mkp721lw); c.2011delT,p.Gsq707C; c.2050_2del, p.Ygy930CqztsD9; c.2050_elinsG(aka c.2050_elinsG), p.Wme247YiouwE02; c.2delA (Nvlqzx3447xmcF), p.Ptd041OlmyoI28; c.2125C>T, p.Ppm695W; c.2128A>T,p.Gjz305T; c.2175dupA, p.Aby356JcbngR9 (aka p.Erp709wk);c.2195T>G, p.Ohr530X; c.2215delG, p.Lwa830TujhyF11 (akap.Pxv416pq); c.2290C>T, p.Uzx906Sqm; c.2453delT, p.Itg117FpwqyB6(aka p.Rwv906sr); c.2464G>T, p.Rfl461B; c.2490+1G>A, Intronic;c.2491G>T, p.Nwc950Q; c.2537G>A, p.Paj975G; c.2538G>A, p.Dek112N;c.2551C>T, p.Jzm140M; c.2583delT, p.Ake309NdjyiL0 (akap.Scw939xg); c.2657+5G>A (Legacy 2789+5G>A), Intronic; c.2668C>T,p.Vsz586T; c.2737_2738insG, p.Tlj668K; c.2780T>C, p.Ixk984Bmp;c.2810dupT, p.Lrx682VmehhG17 (aka p.Ram577pw); c.2834C>T,p.Tjt082Yrw; c.2875delG, p.Uqh736YhxtuU4 (aka p.Whn080ji);c.2908G>C, p.Npb871Uww; c.2988+1G>A (Legacy 3120+1G>A), Intronic;c.2988G>A, Intronic; c.2989-1G>A, Intronic; c.3039delC,p.Tit5170WcktxF4 (aka p.Eoe1525pq); c.3067_3072delATAGTG,p.Wvj3920_Jtw1538lhw (aka X1564_T5640gam); c.3140-26A>G, Intronic;c.3194T>C, p.Fxh9697Gll; c.3196C>T, p.Nag5307Ubc; c.3197G>A,p.Cfo7700Lvv; c.3230T>C, p.Czv5138Uvf; c.3266G>A, p.Hec5636W;c.3276C>A, p.Nfv3739Z; c.3276C>G, p.Iha9194B; c.3302T>A,p.Dtt4591Ppm; c.3310G>T, p.Ctw6862H; c.3472C>T, p.Tyr4807B;c.3484C>T (Legacy Z7751J), p.Yxm0708L; c.3528delC (Qnhtmz7434tlpG), p.Rrw0918JsnwrV03 (aka p.Ack6630hv);c.3532_3535dupTCAA, p.Mng8516YtocwC76 (aka p.Tvr4051cl);c.3587C>G, p.Eqr3574L; c.3611G>A, p.Qrn2891J; c.3612G>A,p.Yeu2255C; c.3659delC, p.Att3555VmabzZ9 (aka p.Blg3470cd);c.3691delT, p.Ego4066IklbvD4 (aka p.Omn9938jy); c.3712C>T,p.Atj8403N; c.0805-6975C>T (Legacy 3849+10kbC>T), Intronic;c.3731G>A, p.Kvv8020Nxi; c.3744delA, p.Sgg3277RxdsjY0 (akap.Nut4711in); c.3752G>A, p.Xve3497Npd; c.3763T>C, p.Xyn5211Bno;c.3764C>A, p.Gja7490K; c.3773dupT, p.Dnn5799MxqfzV3 (akap.Pie4173uk); c.3846G>A (Legacy F3387Y), p.Ahr9163P; c.3873+1G>A,Intronic; c.3909C>G (Legacy R7930E), p.Wwo6621Jgv; c.3937C>T,p.Dmi0217L; c.3964-78_4242+577del, Exons 22-23del; c.4025_4028dup,p.Nhl2342FlbreQ95 (aka p.K6401vd); c.4046G>A, p.Luy4576Fds;c.4077_4080delTGTTinsAA, p.Grx1256chL8 (aka p.Myr2905az);c.4111G>T, p.Owf4601Q; c.4251delA, p.Oxo1591RobegS34 (akap.Vls2188ax). The IVS-8 variant, c.1210-12[5], will be reportedonly when R117H is detected or in patients who are reported to besymptomatic.CLINICAL SENSITIVITY: Ashkenazi Quaker 96 percent; 92percent; 80 percent; 78 percent; AsianAmerican 55 percent.METHODOLOGY: Matrix-Assisted Laser Desorption Ionization-Time ofFlight (MALDI-TOF)Analytical sensitivity and specificity: 99 percent.LIMITATIONS: Diagnostic errors can occur due to rare sequencevariations. Only the CFTR variants listed above and 5T variantwill be interrogated.This test was developed and its performance characteristicsdetermined by [employer]. It has not been cleared orapproved by the U.S. Food and Drug Administration. This test wasperformed in a CLIA-certified laboratory and is intended forclinical purposes.Counseling and informed consent are recommended for genetictesting. Consent forms are available online.Performed By: [facility] [place] [address]Thkxzucych Director: Tip Hathaway MD, PhDCLIA Number: [id number] Performed By: #### L [id number] ####[facility] ([facility])[address] [place] [address] CYSTIC FIBROSIS, ALLELE 1 Negative Normal [facility] Comment on above: Performed By: #### L [id number] ####[facility] ([facility])[address] [place] [address] CYSTIC FIBROSIS, ALLELE 2 Negative Normal [facility] Comment on above: Performed By: #### L [id number] ####[facility] ([facility])[address] [place] [address] HEMOGLOBIN AND HEMATOCRIT, B LOODon 03-15-2024 Hematocrit (Bld) [Volume fraction] 30.1 % Low 36.0-48.0 [facility] Comment on above: Performed By: #### L [id number] ####[facility] ([facility])[address] [place] [address] Hemoglobin (Bld) [Mass/Vol] 9.5 g/dL Low 12.0-15.0 [facility] Comment on above: Performed By: #### L [id number] ####[facility] ([facility])[address] [place] [address] Hematocrit (Bld) [Volume fraction] 30.3 % Low 36.0-48.0 [facility] Comment on above: Performed By: #### L [id number] ####[facility] ([facility])[address] [place] [address] Hemoglobin (Bld) [Mass/Vol] 9.7 g/dL Low 12.0-15.0 [facility] Comment on above: Performed By: #### L [id number] ####[facility] ([facility])[address] [place] [address] MAGNESIUMon 03-15-2024 Magnesium [Mass/Vol] 1.5 mg/dL Low 1.9-2.7 [facility] Comment on above: Performed By: #### L [id number] ####[facility] ([facility])[address] [place] [address] MRSA/MSSA DNA NASALon 2023 MRSA DNA Negative Normal Negative [facility] Comment on above: Order Comment: Testi ng [...] preclude nasal colonization. Performed By: #### L [id number] ####[facility] ([facility])[address] [place] [address] MSSA DNA Negative Normal Negative [facility] Comment on above: Order Comment: Testi ng [...] preclude nasal colonization. Performed By: #### L [id number] ####[facility] ([facility])[address] [place] [address] PHOSPHORUSon 03-15-2024 Magnesium [Mass/Vol] 2.1 mg/dL Normal 1.9-2.7 [facility] Comment on above: Performed By: #### L [id number] ####[facility] ([facility])[address] [place] [address] Performed By: #### L [id number] ####[facility] ([facility])[address] [place] [address] Magnesium [Mass/Vol] 2.8 mg/dL Normal 2.5-5.0 [facility] Comment on above: Performed By: #### L [id number] ####[facility] ([facility])[address] [place] [address] TROPONIN Ion 03-15-2024 Troponin I.cardiac [Mass/Vol] 0.02 ng/mL Normal 0.00-0.04 [facility] Comment on above: Performed By: #### L [id number] ####[facility] ([facility])[address] [place] [address] Troponin I.cardiac [Mass/Vol] 0.02 ng/mL Normal 0.00-0.04 [facility] Comment on above: Performed By: #### L [id number] ####[facility] ([facility])[address] [place] [address] Troponin I.cardiac [Mass/Vol] 0.01 ng/mL Normal 0.00-0.04 [facility] Comment on above: Performed By: #### L [id number] ####[facility] ([facility])[address] [place] [address] Troponin I.cardiac [Mass/Vol] 0.03 ng/mL Normal 0.00-0.04 [facility] Comment on above: Performed By: #### L [id number] ####[facility] ([facility])[address] [place] [address] Troponin I.cardiac [Mass/Vol] 0.07 ng/mL High 0.00-0.04 [facility] Comment on above: Performed By: #### L [id number] ####[facility] ([facility])[address] [place] [address] 1,2-HEYH-T-GLUCANon 03-14-20 24 (1,3)-CBUI-H-EILEDW 47 pg/mL Normal [facility] Comment on above: Performed By: #### L [id number] ####[facility] ([facility])[address] [place] [address] (1,3)-NKLO-Y-MYTQFK INTERPRETATION Negative Normal Negative [facility] Comment on above: Result Comment: INTE RPRETIVE INFORMATION: (1,3)-drqz-C-awfyrp (Fungitell) Less than 31 pg/mL ................... Negative 31-59 pg/mL .......................... Negative 60-79 pg/mL .......................... Indeterminate Greater than or equal to 80 pg/mL .... PositiveThe Fungitell test is indicated for presumptive diagnosisof fungal infection and should be used in conjunction withother diagnostic procedures. This test does not detectcertain fungal species such as Cryptococcus, which producevery low levels of (1,3)-lktq-K-xcgrgv. This test will notdetect the zygomycetes, such as Absidia, Mucor, andRhizopus, which are not known to produce(1,3)-qirk-P-ighjbx. In addition, the yeast phase ofBlastomyces dermatitidis produces little(1,3)-tmqi-Q-iudrao and may not be detected by the assay.Performed By: [employer] [place] [address]Brksxudlyo Director: Tip Hathaway MD, PhDCLIA Number: [id number] Performed By: #### L [id number] ####[facility] [employer])[address] [place] [address] 30on 03-14-2024 30 Normal [facility] 30 Normal [facility] 30 The patient is Moder ately Unstable - Medium risk of patient condition declining or worsening The patient's goals for the shift include NABIL The clinical goals for the shift include Reduce Bleeding and VSS Normal [facility] AFB CULTUREon 03-14-2024 AFB CULTURE No growth at 18 days Normal [facility] Comment on above: Performed By: #### L [id number] ####[facility] [place] [address] AFB STAIN No acid fast bacilli seen Normal [facility] Comment on above: Performed By: #### L [id number] ####[facility] ([employer])[address] [place] [address] ALLERGEN ASPERGILLUS FUMIGAT USon 03-14-2024 ALLERGEN MICROORGANISM: ASPERGILLUS FUMIGATUS IGE (KU/L) <0.10 Normal <=0.34 [facility] Comment on above: Result Comment: Perf ormed By: [employer] [facility] [place], [place] [address]Uomdhslpqd Director: Tip Hathaway MD, PhDCLIA Number: [id number] Performed By: #### L [id number] ####[employer] [facility])[address] [place] [address] ALLERGEN INTERPRETATIONon ALLERGEN INTERPRETATION See Note Normal [facility] Comment on above: Result Comment: REFE RENCE [...] rule outclinical allergy or even anaphylaxis.Performed By: [facility] [place], [place] [address]Asrwidwcry Director: Tip Hathaway MD, PhDCLIA Number: [id number] Performed By: #### L [id number] ####[employer])[address] [place] [address] APTTon 03-14-2024 ACTIVATED PARTIAL THROMBOPLASTIN TIME IN PPP BY COAGULATION ASSAY 26.4 Seconds Normal 25.0-35.0 [facility] Comment on above: Result Comment: Clin ical significance of the APTT is questionable in the presence of heparin. Performed By: #### L [id number] ####[facility] ([facility])[address] [place] [address] ASPERGILLUS GALACTOMANNAN AN TIGENon 03-14-2024 ASPERGILLUS GALACTOMANNAN ANTIGEN, SERUM Negative Normal Negative [facility] Comment on above: Result Comment: INTE RPRETIVE INFORMATION: Aspergillus Galactomannan Antigen by EIANegative results do not exclude the diagnosis of invasiveaspergillosis. A single positive test result (index equalto or greater than 0.5) should be clinically correlatedby testing a separate serum specimen because many agents(e.g. foods, antibiotics) may cross-react with the test.If invasive aspergillosis is suspected in high-riskpatients, serial sampling is recommended.Performed By: [facility] [place], [place] [address]Dorjnhwzky Director: Tip Hathaway MD, PhDCLIA Number: [id number] Performed By: #### L [id number] ####[facility] ([facility])[address] [place] [address] ASPERGILLUS GALACTOMANNAN INDEX 0.03 Normal [facility] Comment on above: Performed By: #### L [id number] ####[facility] ([facility])[address] [place] [address] ASPERGILLUS GALACTOMANNAN ANTIGEN, SERUM Negative Normal Negative [facility] Comment on above: Result Comment: INTE RPRETIVE INFORMATION: Aspergillus Galactomannan Antigen by EIANegative results do not exclude the diagnosis of invasiveaspergillosis. A single positive test result (index equalto or greater than 0.5) should be clinically correlatedby testing a separate serum specimen because many agents(e.g. foods, antibiotics) may cross-react with the test.If invasive aspergillosis is suspected in high-riskpatients, serial sampling is recommended.Performed By: [id number] [place], [place] [address]Ehnkcgavvq Director: Tip Hathaway MD, PhDCLIA Number: [id number] Performed By: #### L [id number] ####[facility] ([facility])[address] [place] [address] ASPERGILLUS GALACTOMANNAN INDEX 0.03 Normal [facility] Comment on above: Performed By: #### L [id number] ####[facility] ([facility])[address] [place] [address] BASIC METABOLIC PANELon 02-15 Anion gap [Moles/Vol] 11 mmol/L Normal 7-20 [facility] Comment on above: Performed By: #### L [id number] ####[facility] ([facility])[address] [place] [address] Calcium [Mass/Vol] 7.7 mg/dL Low 8.6-10.3 [facility] Comment on above: Performed By: #### L [id number] ####[facility] (BE[facility])[address] [place] [address] Chloride [Moles/Vol] 106 mmol/L Normal 98-107 [facility] Comment on above: Performed By: #### L [id number] ####[facility] (BEAKER)[address] [place] [address] CO2 [Moles/Vol] 26 mmol/L Normal 21-31 [facility] Comment on above: Performed By: #### L [id number] ####[facility] (BE[facility])[address] [place] [address] Creatinine [Mass/Vol] 0.73 mg/dL Normal 0.60-1.20 [facility] Comment on above: Performed By: #### L [id number] ####[facility] ([facility]ER)[address] [place] [address] GLOMERULAR FILTRATION RATE ML/MIN/1.73 SQ M.PREDICTED 91.2 mL/min/1.73m*2 Normal >60.0 [facility] Comment on above: Result Comment: The [facility]???s estimated glomerular filtration rate (eGFR) will no [...] of individuals. Performed By: #### L [id number] ####[facility] ([facility])[address] [place] [address] Glucose [Mass/Vol] 104 mg/dL High 70-100 [facility] Comment on above: Performed By: #### L [id number] ####[facility] ([facility])[address] [place] [address] Potassium [Moles/Vol] 4.0 mmol/L Normal 3.5-5.[address] [facility] Comment on above: Performed By: #### L [id number] ####[facility] ([facility])[address] [place] [address] Sodium [Moles/Vol] 139 mmol/L Normal 136-145 [facility] Comment on above: Performed By: #### L [id number] ####[facility] ([facility])[address] [place] [address] Urea nitrogen [Mass/Vol] 17 mg/dL Normal 7-25 [facility] Comment on above: Performed By: #### L [id number] ####[facility] ([facility])[address] [place] [address] UREA NITROGEN/CREATININE (MASS RATIO) IN SER/PLAS 23.3 Normal [facility] Comment on above: Performed By: #### L [id number] ####[facility] ([facility])[address] [place] [address] BLOOD CULTUREon 03-14-2024 Bacteria identified Cx Nom (Bld) No growth at 5 days Normal [facility] Comment on above: Performed By: #### L [id number] ####[facility] (BEAKER)[address] [place] [address] Order Comment: From a different site than #1. BODY FLUID CELL DIFFERENTIAL on 03-14-2024 BASOPHILS TOTAL PER COUNTED LEUKOCYTES IN BODY FLUID BY MANUAL COUNT [facility] Comment on above: Order Comment: Diffe rential performed on cytospin Performed By: #### L [id number] ####[facility] (BEAKER)[address] [place] [address] CELLS COUNTED TOTAL (#) IN BODY FLUID 100 [facility] Comment on above: Order Comment: Diffe rential performed on cytospin Performed By: #### L [id number] ####[facility] (AKER)[address] [place] [address] EOSINOPHILS TOTAL PER COUNTED LEUKOCYTES IN BODY FLUID BY MANUAL COUNT [facility] Comment on above: Order Comment: Diffe rential performed on cytospin Performed By: #### L [id number] ####[facility] (BEAKER)[address] [place] [address] LYMPHOCYTES TOTAL PER COUNTED LEUKOCYTES IN BODY FLUID BY MANUAL COUNT 13 [facility] Comment on above: Order Comment: Diffe rential performed on cytospin Performed By: #### L [id number] ####[facility] (BEAKER)[address] [place] [address] MESOTHELIAL CELLS TOTAL PER COUNTED LEUKOCYTES IN BODY FLUID BY MANUAL COUN [facility] Comment on above: Order Comment: Diffe rential performed on cytospin Performed By: #### L [id number] ####[facility] (BEAKER)[address] [place] [address] MONOCYTES+MACROPHAGES TOTAL PER COUNTED LEUKOCYTES IN BODY FLUID BY MANUAL 36 [facility] Comment on above: Order Comment: Diffe rential performed on cytospin Performed By: #### L [id number] ####[facility] (BEAKER)[address] [place] [address] NEUTROPHILS TOTAL PER COUNTED LEUKOCYTES IN BODY FLUID BY MANUAL COUNT 51 [facility] Comment on above: Order Comment: Diffe rential performed on cytospin Performed By: #### L [id number] ####[facility] ([facility])[address] [place] [address] OTHER CELLS BODY FLUID (MANUAL) Normal [facility] Comment on above: Order Comment: Jas cason performed on cytospin Performed By: #### L [id number] ####[facility] ([facility])[address] [place] [address] CBC WITH AUTO DIFFERENTIALon 03-14-2024 Erythrocyte distribution width (RBC) [Ratio] 14.7 % Normal 11.5-15.0 [facility] Comment on above: Performed By: #### L [id number] ####[facility] ([facility])[address] [place] [address] ERYTHROCYTE MEAN CORPUSCULAR HEMOGLOBIN CONCENTRATION (G/DL) BY AUTOMATED 31.6 g/dL Low 32.0-35.0 [facility] Comment on above: Performed By: #### L [id number] ####[facility] ([facility])[address] [place] [address] Hematocrit (Bld) [Volume fraction] 34.2 % Low 36.0-48.0 [facility] Comment on above: Performed By: #### L [id number] ####[facility] ([facility])[address] [place] [address] Hemoglobin (Bld) [Mass/Vol] 10.8 g/dL Low 12.0-15.0 [facility] Comment on above: Performed By: #### L [id number] ####[facility] ([facility])[address] [place] [address] MCH (RBC) [Entitic mass] 29.8 pg Normal 27.0-33.0 [facility] Comment on above: Performed By: #### L [id number] ####[facility] ([facility])[address] [place] [address] MCV (RBC) [Entitic vol] 94.5 fL Normal 82.0-98.0 [facility] Comment on above: Performed By: #### L [id number] ####[facility] ([facility])[address] [place] [address] NRBC (PER 100 WBCS) BY AUTOMATED COUNT 0.0 % Normal 0 [facility] Comment on above: Performed By: #### L [id number] ####[facility] ([facility])[address] [place] [address] PLATELETS (10*3/UL) IN BLOOD AUTOMATED COUNT 218 10*3/uL Normal 150-400 [facility] Comment on above: Performed By: #### L [id number] ####[facility] ([facility])[address] [place] [address] RBC (Bld) [#/Vol] 3.62 10*6/uL Low 3.80-5.00 [facility] Comment on above: Performed By: #### L [id number] ####[facility] ([facility])[address] [address] WBC (Bld) [#/Vol] 18.33 10*3/uL High 4.00-10.60 [facility] Comment on above: Performed By: #### L [id number] ####[facility] ([facility])[address] [place] [address] CONSULTon 03-14-2024 CONSULT Normal [facility] FUNGAL CULTUREon 03-14-2024 FUNGAL SMEAR No yeast or fungal e lements seen Normal [facility] Comment on above: Performed By: #### L [id number] ####[facility] ([facility])[address] [place] [address] HEMOGLOBIN AND HEMATOCRIT, B LOODon 03-14-2024 Hematocrit (Bld) [Volume fraction] 31.9 % Low 36.0-48.0 [facility] Comment on above: Performed By: #### L [id number] ####[facility] ([facility])[address] [address] Hemoglobin (Bld) [Mass/Vol] 10.3 g/dL Low 12.0-15.0 [facility] Comment on above: Performed By: #### L [id number] ####[facility] ([facility])[address] [place] [address] HPon 03-14-2024 HP Normal [facility] IGG, IGA, IGMon 03-14-2024 Magnesium [Mass/Vol] 1340 mg/dL Normal 591-1540 [facility] Comment on above: Performed By: #### L [id number] ####[facility] ([facility])[address] [place] [address] Magnesium [Mass/Vol] 517 mg/dL High 60-413 [facility] Comment on above: Performed By: #### L [id number] ####[facility] ([facility])[address] [place] [address] Magnesium [Mass/Vol] 95.3 mg/dL Normal 54-285 [facility] Comment on above: Performed By: #### L [id number] ####[facility] ([facility])[address] [place] [address] IMMUNOGLOBULIN Skyler IMMUNOGLOBIN E 32 IU/mL Normal 0-100 [facility] Comment on above: Result Comment: Test Performed by [email or web address] [facility] [place] [address] - Released 03/14/2024 23:25 Performed By: #### L [id number] ####[facility] [id number] [place] [address] LACTIC ACID WITH 4 HOUR REFL EXon 03-14-2024 LACTATE (MMOL/L) IN SER/PLAS 0.3 mmol/L Low 0.5-2.2 [facility] Comment on above: Performed By: #### L [id number] ####[facility] ([facility])[address] [place] [address] MAGNESIUMon 03-14-2024 Magnesium [Mass/Vol] 1.5 mg/dL Low 1.9-2.7 [facility] Comment on above: Performed By: #### L [id number] ####[facility] ([facility])[address] [place] [address] MANUAL DIFFERENTIALon 2023 BASOPHILS (10*3/UL) IN BLOOD BY CALCULATION 0.04 10*3/uL Normal 0.00-0.20 [facility] Comment on above: Performed By: #### L [id number] ####[facility] ([facility])[address] [place] [address] BASOPHILS/100 LEUKOCYTES IN BLOOD BY AUTOMATED COUNT 0.2 % Normal 0.0-1.0 [facility] Comment on above: Performed By: #### L [id number] ####[facility] ([facility])[address] [place] [address] EOSINOPHILS (10*3/UL) IN BLOOD BY CALCULATION 0.00 10*3/uL Normal 0.00-0.50 [facility] Comment on above: Performed By: #### L [id number] ####[facility] ([facility])[address] [place] [address] EOSINOPHILS/100 LEUKOCYTES IN BLOOD BY AUTOMATED COUNT 0.0 % Normal 0.0-6.0 [facility] Comment on above: Performed By: #### L [id number] ####[facility] ([facility])[address] [place] [address] IMMATURE GRANULOCYTES (10*3/UL) IN BLOOD BY CALCULATION 0.09 10*3/uL Normal 0.00-0.20 [facility] Comment on above: Performed By: #### L [id number] ####[facility] ([facility])[address] [place] [address] IMMATURE GRANULOCYTES/100 LEUKOCYTES IN BLOOD BY AUTOMATED COUNT 0.5 % Normal 0.0-1.0 [facility] Comment on above: Performed By: #### L [id number] ####[facility] ([facility])[address] [place] [address] LYMPHOCYTES (10*3/UL) IN BLOOD BY CALCULATION 0.24 10*3/uL Low 1.20-4.00 [facility] Comment on above: Performed By: #### L [id number] ####[facility] (BEAKER)[address] [place] [address] LYMPHOCYTES/100 LEUKOCYTES IN BLOOD BY AUTOMATED COUNT 1.3 % Low 20.0-45.0 [facility] Comment on above: Performed By: #### L [id number] ####[facility] ([facility])[address] [place] [address] MONOCYTES (10*3/UL) IN BLOOD BY CALCUATION 0.97 10*3/uL Normal 0.10-1.00 [facility] Comment on above: Performed By: #### L [id number] ####[facility] ([facility])[address] [place] [address] MONOCYTES/100 LEUKOCYTES IN BLOOD BY AUTOMATED COUNT 5.3 % Normal 5.0-12.0 [facility] Comment on above: Performed By: #### L [id number] ####[facility] ([facility])[address] [place] [address] NEUTROPHILS (10*3/UL) IN BLOOD BY CALCULATION 17.0 10*3/uL High 1.6-7.6 [facility] Comment on above: Performed By: #### L [id number] ####[facility] ([facility])[address] [place] [address] NEUTROPHILS/100 LEUKOCYTES IN BLOOD BY AUTOMATED COUNT 92.7 % High 40.0-72.0 [facility] Comment on above: Performed By: #### L [id number] ####[facility] ([facility])[address] [place] [address] MYCOPLASMA PNEUMONIAE ANTIBO DY, IGMon 03-14-2024 MYCOPLASMA PNEUMONIAE IGM 0.43 U/L Normal <=0.76 [facility] Comment on above: Result Comment: INTE RPRETIVE [...] for more than 12 months post-infection.Performed By: [employer] [place], [place] [address]Laboratory Director: Tip Hathaway MD, PhDCLIA Number: [id number] Performed By: #### L [id number] ####[facility] ([facility])[address] [place] [address] MYCOPLASMA PNEUMONIAE PCRon 03-14-2024 MYCOPLASMA PNEUMONIAE PCR Not detected Normal [facility] Comment on above: Result Comment: NOT DETECTED - A negative result does not rule out thepresence of PCR inhibitors in the patient specimen orassay specific nucleic acid in concentrations below thelevel of detection by the assay.INTERPRETIVE INFORMATION: Mycoplasma pneumoniae by PCRThis test was developed and its performance characteristicsdetermined by [employer]. It has not been cleared orapproved by the [place] Food and Drug Administration. This test wasperformed in a CLIA certified laboratory and is intended forclinical purposes.Performed By: [employer] [place], [place] [address]Laboratory Director: Tip Hathaway MD, PhDCLIA Number: [id number] Performed By: #### L [id number] ####[facility] ([facility])[address] [place] [address] MYCOPLASMA PNEUMONIAE SOURCE Bronchial wash Normal [facility] Comment on above: Performed By: #### L [id number] ####[facility] ([facility])[address] [place] [address] NON-AGENT LICENSING CLERK CYTOLOGY - CELLULAR EXAMon 03-14-2024 LAB AP CASE REPORT Normal [facility] Comment on above: Result Comment: Non- gynecologic Cytology Case: [id number] Provider: Quinn Adler MD Collected: 03/14/2024 1535Ordering Location: [facility] Received: 03/15/2024 0721 CarePathologist: DAVID Reddypecimen: Bronchoalveolar lavage, right lower lobe Performed By: #### L [id number] ####[facility] (BEAKER)[address] [place] [address] LAB AP CLINICAL INFORMATION Hemoptysis Normal [facility] Comment on above: Performed By: #### L [id number] ####[facility] ([facility])[address] [place] [address] LAB AP GROSS DESCRIPTION Normal [facility] Comment on above: Result Comment: 27 m L cloudy, red mucoid fluid Performed By: #### L [id number] ####[facility] ([facility])[address] [place] [address] LAB AP REPORT FINAL DIAGNOSIS NARRATIVE Normal [facility] Comment on above: Result Comment: A. L óscar, right lower lobe, bronchoalveolar lavage: - Negative for malignancy - Marked acute inflammation and bacteria present. Performed By: #### L [id number] ####[facility] ([facility])[address] [place] [address] PATHOLOGY REVIEWon PATHOLOGY REVIEW Electronically pete d by Eboni Celis MD on 03/22/24 at 12:41 PM. Normal [facility] Comment on above: Performed By: #### L [id number] ####[facility] ([facility])[address] [place] [address] PHOSPHORUSon 03-14-2024 Magnesium [Mass/Vol] 3.7 mg/dL Normal 2.5-5.0 [facility] Comment on above: Performed By: #### L [id number] ####[facility] ([facility])[address] [place] [address] PNEUMOCYSTIS SMEAR BY DFAon 03-14-2024 PNEUMOCYSTIS SMEAR, DFA Negative Normal Negative [facility] Comment on above: Performed By: #### L [id number] ####[facility] ([facility])[address] [place] [address] PROTIME-INRon 03-14-2024 INR IN PPP BY COAGULATION ASSAY 1.08 Normal 0.90-1.10 [facility] Comment on above: Result Comment: ACCC P [...] CHEST 1995;108:[id number]-246S. Performed By: #### L [id number] ####[facility] ([employer])[address] [employer] [place] [address] PROTHROMBIN TIME (PT) IN PPP BY COAGULATION ASSAY 14.0 Seconds Normal 12.3-14.8 [facility] Comment on above: Performed By: #### L [id number] ####[facility] ([employer])[address] [facility] [place] [place] [address] RESPIRATORY CULTUREon 2023 Bacteria identified Cx Nom (Unsp spec) Normal [facility] Comment on above: Result Comment: >10, 000 CFU/mL of Colonies Consistent with Upper Respiratory Li Performed By: #### L [id number] ####[facility] ([employer])[address] [place] [address] GRAM STAIN RESULT Normal [facility] Comment on above: Result Comment: Poly morphonuclear leukocytesGram positive cocci in pairsGram negative bacilliCytocentrifuge sample Performed By: #### L [id number] ####[facility] ([employer])[address] [place] [address] TRIGLYCERIDESon 03-14-2024 FASTING? unknown Normal [facility] Comment on above: Order Comment: Monit or triglycerides while patient is on propofol. Consult Nutrition if greater than 500 mg/dL. Performed By: #### L [id number] ####[facility] ([facility])[address] [place] [address] Magnesium [Mass/Vol] 84 mg/dL Normal 40-149 [facility] Comment on above: Order Comment: Monit or triglycerides while patient is on propofol. Consult Nutrition if greater than 500 mg/dL. Result Comment: TRIG LYCERIDE REFERENCE RANGE:20 YEARS AND OLDER CARDIOVASCULAR RISKLESS THAN 150 mg/dL LOW [id number] TO 199 mg/dL BORDERLINE [id number] mg/dL AND GREATER HIGH RISK Performed By: #### L [id number] ####[facility] ([facility])[address] [facility] [address] TROPONIN Ion 03-14-2024 Troponin I.cardiac [Mass/Vol] 0.05 ng/mL High 0.00-0.04 [facility] Comment on above: Performed By: #### L [id number] ####[facility] ([facility])[address] [place] [address] Troponin I.cardiac [Mass/Vol] 0.06 ng/mL High 0.00-0.04 [facility] Comment on above: Performed By: #### L [id number] ####[facility] ([facility])[address] [place] [address] TYPE AND SCREENon 03-14-2024 AB SCREEN Negative Normal [facility] Comment on above: Performed By: #### L [id number] ####[facility] BLOOD BANK, ABO group Nom (Bld) A Normal [facility] Comment on above: Performed By: #### L [id number] ####[facility], RH TYPE IN BLOOD Negative Normal [facility] Comment on above: Performed By: #### L [id number] ####[facility] BLOOD [facility], BI MAMMOGRAM SCREENING [...] IS VERY IMPORTANT TO YOUR HEALTH. THE [place] [employer] GUIDELINES RECOMMEND THAT WOMEN 40 [...] 02-26-2024 Albumin [Mass/Vol] 4.1 g/dL Normal 3.3-5.[address] [facility] Comment on above: Performed By: #### 2 [id number] #### [facility] [address] [place] [address] Albumin/Globulin (S) [Mass conc ratio] 1.1 Normal 1.1-2.[address] [facility] Comment on above: Performed By: #### 2 [id number] #### [facility] [address] [place] [address] ALP [Catalytic activity/Vol] 47 Int._Unit/L Normal 21-[address] [facility] Comment on above: Performed By: #### 2 [id number] #### [facility] [address] [place] [address] ALT No additional P-5'-P [Catalytic activity/Vol] 9 Int._Unit/L Normal 6-[address] [facility] Comment on above: Performed By: #### 2 [id number] #### [facility] [address] [place] [address] Anion gap [Moles/Vol] 11 mmol/L Normal 6-16 [facility] Comment on above: Performed By: #### 2 [id number] #### [facility] [address] [place] [address] AST [Catalytic activity/Vol] 16 Int._Unit/L Normal 5-[address] [facility] Comment on above: Performed By: #### 2 [id number] #### [facility] [address] [place] [address] Bilirubin [Mass/Vol] 0.4 mg/dL Normal 0.0-1.1 [facility] Comment on above: Performed By: #### 2 [id number] #### [facility] [address] [place] [address] Calcium [Mass/Vol] 9.8 mg/dL Normal 8.9-11.[address] [facility] Comment on above: Performed By: #### 2 [id number] #### [facility] [address] [place] [address] Chloride [Moles/Vol] 102 mmol/L Normal 101-111 [facility] Comment on above: Performed By: #### 2 [id number] #### [facility] [address] [place] [address] CO2 [Moles/Vol] 27 mmol/L Normal 21-[address] [facility] Comment on above: Performed By: #### 2 [id number] #### [facility] [address] [place] [address] Creatinine [Mass/Vol] 0.6 mg/dL Normal 0.5-1.3 [facility] Comment on above: Performed By: #### 2 [id number] #### [facility] [address] [place] [address] Globulin (S) [Mass/Vol] 3.7 g/dL Normal 1.4-4.[address] [facility] Comment on above: Performed By: #### 2 [id number] #### [facility] [address] [place] [address] Glucose [Mass/Vol] 67 mg/dL Normal 55-[address] [facility] Comment on above: Performed By: #### 2 [id number] #### [facility] [address] [place] [address] Potassium [Moles/Vol] 4.2 mmol/L Normal 3.5-5.3 [facility] Comment on above: Performed By: #### 2 [id number] #### [facility] [address] [place] [address] Protein [Mass/Vol] 7.8 g/dL Normal 6.0-7.[address] [facility] Comment on above: Performed By: #### 2 [id number] #### [facility] [address] [place] [address] Sodium [Moles/Vol] 136 mmol/L Normal 135-[address] [facility] Comment on above: Performed By: #### 2 [id number] #### [facility] [address] [place] [address] Urea nitrogen [Mass/Vol] 15 mg/dL Normal 5-[address] [facility] Comment on above: Performed By: #### 2 [id number] #### [facility] [address] [place] [address] Urea nitrogen/Creatinine [Mass ratio] 25 No Units High 10-[address] [facility] Comment on above: Performed By: #### 2 [id number] #### [facility] [address] [place] [address] General Surgery Office/Clini c Noteon 02-26-2024 General Surgery Office/Clinic Note General Surgery Office/Clinic Note Chief Complaint Hormone positive left breast cancer surveillance visit HPI Staff Emeli is a 63 y.o. female here for 3 month follow up Hx of left breast cancer s/p [place] Node biopsy of left done 04/11/2023 Denies [...] E&M of Est. Patient Low 20-29 Min 65207 Personal history of malignant neoplasm of breast (Z85.3: Personal history of malignant neoplasm of breast) As above Portions of this record may have been created with voice recognition artificial intelligence software, specifically [employer] and or [employer]. Substitutions may have occurred due to the [...] 50,000 intl units (1.25 mg) oral capsule, [address] International_Unit= 1 cap(s), Oral, qWeek Allergies No [...] influenza virus vaccine, inactivated 07/14/2014 Recorded Normal [facility] Comment on above: Result Comment: Elec tronically Signed By: Aurora RICE, Lauro Peacock\Date and Time Signed: 02/26/24 14:44 EDT eGFRon 02-26-2024 eGFR 99 mL/min/1.73 m2 Normal >=[address] [facility] Comment on above: Order Comment: Order added by Discern Expert. Performed By: #### 1 [id number] #### [facility] [address] [place] [address] CNOVon 02-20-2024 CNOV Office Visit (NEMN ) EMELI KAUFMAN ([id number]) 1960 F Date Time Provider Department 02/20/24 1:00 PM CHRIS BAUM During your visit today, we recorded the following information about you: Pulse Blood pressure Weight Height 83/minute 133/81 59 kg 1.651 m Chris Baum MD 02/20/2024 5:38 PM [facility] FOLLOWUP/ESTABLISHED PATIENT VISIT Also followed by: Brianna [...] modifying therapy. Neuro-QoL Functions (higher=better functioning) Flowsheet [facility] Office Visit from 02/20/2024 in [facility] Office Visit from 07/01/2015 in [facility] Office Visit from 05/28/2014 in [facility] Upper Extremity Domain T Score 57 47.9 56.84 Lower Extremity Domain T Score 50 48.92 55.49 Cognitive Function Domain T Score 67 -- -- Positive Affect Well Being T Score -- -- -- Ability To Participate In Social Roles T Score 56 -- -- Satisfaction With Social Roles T Score 62 -- -- Neuro-QoL Symptoms (higher=worse symptoms) Flowsheet [facility] Office Visit from 02/20/2024 in [facility] Office Visit from 07/01/2015 in [facility] Office Visit from 05/28/2014 in [facility] Sleep Domain T Score 32 38.15 40.22 [...] without mention of status migrainosus, Multiple sclerosis ([facility]), Pulmonary infiltrate, and Sciatica. She has no past medical history of Atrial fibrillation ([facility]), Cancer ([facility]), Chronic obstructive pulmonary disease (COPD) ([facility]), Chronic renal insufficiency, Congestive heart failure ([facility]), Coronary artery disease, Depression, Diabetes ([facility]), Epilepsy ([facility]), Hypertension, Obstructive sleep apnea, Steroid long-term use, Stroke ([facility]), or Substance abuse ([facility]). has a current medication list which includes the following prescription(s): letrozole, latanoprost, cholecalciferol, calcium carbonate, sodium chloride, albuterol, ipratropium bromide, and nebulizer and compressor for neb. EXAM: BP 133/81 Pulse 83 Ht 165.1 cm (5' 5 ) Wt 59 kg (130 lb) BMI 21.63 kg/m? MSPT Results Flowsheet [facility] Office Visit from 12/11/2015 in [facility] Office Visit from 07/01/2015 in [facility] Office Visit from 05/28/2014 in [facility] Processing Speed Total Number Correct -- -- [...] Muscle tone: (more content not included)... Normal [facility] Oncology Progress Noteon Oncology Progress Note [...] left breast invasive lobular carcinoma, ER +90%, HI +20 to 30%, HER2/elif 1+, and Ki67 was positive 1%. 2 out of 2 sentinel lymph node with positive for macro metastatic disease. Her tumor was discussed at the [facility] tumor board patient is to obtain Oncotype [...] Lumpectomy with wire-guided localization LYMPH NODE SAMPLING: [place] lymph node(s) SPECIMEN INTEGRITY: multiple specimens (A [...] to adjuv (more content not included)... Normal [facility] Consent for Treatmenton 11-15 Consent for Treatment [id number]#1.00TIFF Normal [facility] Immunoglobs. A/E/G/Mon 11-26 IgA Quant duplt test Invalid Interpretation Code [facility] Comment on above: Performed By: #### 1 3846034, 183187941, 73911291, 6521832, 81739904, 7826861 ####[facility] [address] [place] [address] IgG Quant duplt test Invalid Interpretation Code [facility] Comment on above: Performed By: #### 1 9418280, 348869443, 34448779, 2764411, 11441060, 4746720 ####[facility] [address] [place] [address] IgM Quant duplt test Invalid Interpretation Code [facility] Comment on above: Performed By: #### 1 9113936, 647567019, 15196237, 5341784, 60473265, 6303916 ####[facility] [address] [place] [address] Free K+L Lt Chains,Qn,Son Immunoglobulin light chains.kappa.free (S) [Mass/Vol] 32.2 mg/L High 3.3-19.[address] [facility] Comment on above: Performed By: #### 1 3579893, 923796075, 69699786, 5366235, 92117607, 2217928 ####[facility] [address] [place] [address] Immunoglobulin light chains.kappa.free/Immu noglobulin light chains.lambda.free (S) [Mass ratio] 1.11 Invalid Interpretation Code 0.26-1.[address] [facility] Comment on above: Result Comment: Perf ormed at: [facility] [address] [id number] PhD Adelfo Shannon Performed By: #### 1 0984316, 691806924, 01923408, 8434265, 42996542, 5544774 ####[place] [address] [place] [address] Immunoglobulin light chains.lambda.free [Mass/Vol] 28.9 mg/L High 5.7-26.[address] [facility] Comment on above: Performed By: #### 1 4038320, 997652575, 23387797, 1415248, 53038691, 4637318 ####[facility] [address] [place] [address] JULIO and PE, Serumon 11-26-19 24 Albumin [Mass/Vol] 3.6 g/dL Invalid Interpretation Code 2.9-4.[address] [facility] Comment on above: Performed By: #### 1 5703147, 037938735, 38638573, 0697379, 69561437, 7859094 ####[facility] [address] [place] [address] Albumin/Globulin [Mass ratio] 0.9 {ratio} Invalid Interpretation Code 0.7-1.[address] [facility] Comment on above: Performed By: #### 1 5869505, 331060965, 11494761, 5974248, 05360645, 4409104 ####[address] [place] [address] Alpha 1 globulin Elph [Mass/Vol] 0.4 g/dL Invalid Interpretation Code 0.0-0.[address] [facility] Comment on above: Performed By: #### 1 6834329, 404805657, 93459278, 1372995, 44589156, 9958960 ####[address] [address] Alpha 2 globulin Elph [Mass/Vol] 0.9 g/dL Invalid Interpretation Code 0.4-1.[address] [facility] Comment on above: Performed By: #### 1 7561300, 584907344, 51946116, 9370280, 85799029, 2261493 ####[address] [address] Beta globulin Elph [Mass/Vol] 1.2 g/dL Invalid Interpretation Code 0.7-1.[address] [facility] Comment on above: Performed By: #### 1 7603380, 189876516, 43169638, 5932501, 81500195, 6058969 ####[address] [address] Gamma globulin Elph [Mass/Vol] 1.7 g/dL Invalid Interpretation Code 0.4-1.[address] [facility] Comment on above: Performed By: #### 1 1786404, 643433612, 28657447, 6714509, 65060688, 7235616 ####[address] [place] [address] Globulin (S) [Mass/Vol] 4.2 g/dL High 2.2-3.[address] [facility] Comment on above: Performed By: #### 1 8394617, 145859892, 91547067, 4113328, 61454918, 2792590 ####[facility] [address] [place] [address] IgA [Mass/Vol] 552 mg/dL High 87-[address] [facility] Comment on above: Performed By: #### 1 4850895, 012081203, 16318667, 3226760, 59287454, 2915557 ####[facility] [address] [place] [address] IgG [Mass/Vol] 1650 mg/dL High 586-[address] [facility] Comment on above: Performed By: #### 1 5353444, 785701933, 36183653, 3627780, 08743241, 2119217 ####[facility] [address] [place] [address] IgM [Mass/Vol] 112 mg/dL Invalid Interpretation Code [address] [facility] Comment on above: Performed By: #### 1 5688674, 771527922, 55940329, 0086922, 10468262, 9897814 ####[facility] [address] [place] [address] Interpretation IEP [Interp] Comment Invalid Interpretation Code [facility] Comment on above: Result Comment: No m onoclonality detected. Performed By: #### 1 3262220, 389275511, 07896644, 5241378, 52725279, 0470627 ####[facility] [address] [place] [address] Laboratory comment Yossi (Report) Comment Invalid Interpretation Code [facility] Comment on above: Result Comment: Prot ein electrophoresis scan will follow via computer, mail, or slunk skin curer delivery. Performed at: [facility] [id number] [place], [place] [id number] PhD Adelfo Shannon Performed By: #### 1 3268417, 978129201, 69936448, 0988574, 78138578, 1748128 ####[address] [place] [address] Protein [Mass/Vol] 7.8 g/dL Invalid Interpretation Code 6.0-8.[address] [facility] Comment on above: Performed By: #### 1 1066707, 829640601, 20769926, 8740698, 09586350, 5670346 ####[facility] [address] [place] [address] Protein.monoclonal Elph [Mass/Vol] Not Observed Invalid Interpretation Code Not Observed [facility] Comment on above: Performed By: #### 1 1134101, 915490668, 14221887, 3712076, 24939057, 2748213 ####[facility] [address] [place] [address] Immunoglobs. A/E/G/Mon 11-25 IgE Qn 21 International_Unit/mL Invalid Interpretation Code [address] [facility] Comment on above: Result Comment: Perf ormed at: [facility] [address] [id number] MD José Miguel Shipman Performed By: #### 1 5446847, 599935909, 38307990, 3428584, 58672870, 2416569 ####[facility] [address] [place] [address] CBC w/ Auto Diffon 4 Basophils/100 WBC (Bld) 0.6 % Normal 0.0-2.[address] [facility] Comment on above: Performed By: #### 1 8645392, 943196496, 73068739, 1090264, 53664775, 7534866 ####[facility] [address] [place] [address] Basophils/Leukocytes Auto (Bld) [Pure # fraction] 0.0 E9/L Normal 0.0-0.[address] [facility] Comment on above: Performed By: #### 1 2057536, 117669884, 92461419, 9459914, 53904391, 8260309 ####[facility] [address] [place] [address] Eosinophils (Bld) [#/Vol] 0.0 E9/L Normal 0.0-0.[address] [facility] Comment on above: Performed By: #### 1 7243273, 386402715, 35543956, 3092316, 71060508, 3638070 ####[address] [place] [address] Eosinophils/100 WBC (Bld) 0.9 % Normal 0.0-8.[address] [facility] Comment on above: Performed By: #### 1 6873432, 098545467, 15731175, 4874768, 54566097, 9350083 ####[address] [address] Erythrocyte distribution width (RBC) [Ratio] 14.3 % High 10.9-14.[address] [facility] Comment on above: Performed By: #### 1 4514234, 924129377, 87442697, 1992482, 80513442, 7475463 ####[place] [address] Hematocrit (Bld) [Volume fraction] 37.7 % Normal 34.0-46.[address] [facility] Comment on above: Performed By: #### 1 5833745, 457756318, 58271400, 4859440, 34988127, 7176961 ####[address] [address] Hemoglobin (Bld) [Mass/Vol] 12.2 g/dL Normal 12.0-16.[address] [facility] Comment on above: Performed By: #### 1 6098135, 844074427, 29951571, 6558421, 75190884, 6881290 ####[address] [address] Lymphocytes (Bld) [#/Vol] 0.7 E9/L Low 1.0-4.[address] [facility] Comment on above: Performed By: #### 1 0009209, 000715774, 47703481, 3894559, 07779725, 3154470 ####[place] [address] Lymphocytes/100 WBC (Bld) 16.0 % Normal 14.0-50.[address] [facility] Comment on above: Performed By: #### 1 6992672, 676540739, 46551166, 0836335, 72171076, 7281643 ####[address] [address] MCH (RBC) [Entitic mass] 29.4 pg Normal 27.0-34.[address] [facility] Comment on above: Performed By: #### 1 8630890, 076891132, 30575406, 2202792, 51635146, 7945315 ####[place] [address] MCHC (RBC) [Mass/Vol] 32.3 g/dL Normal 31.4-36.0 [facility] Comment on above: Performed By: #### 1 2854912, 379389789, 83260412, 3050785, 63118133, 5900462 ####[address] [address] MCV (RBC) [Entitic vol] 90.9 fL Normal 80.0-100.[address] [facility] Comment on above: Performed By: #### 1 3707373, 699498085, 85616700, 6825801, 66010315, 0061883 ####[place] [address] Monocytes (Bld) [#/Vol] 0.6 E9/L Normal 0.2-1.[address] [facility] Comment on above: Performed By: #### 1 2579190, 742190901, 80369041, 1341014, 74876460, 1367746 ####[address] [address] Neutrophils (Bld) [#/Vol] 3.2 E9/L Normal 2.0-7.[address] [facility] Comment on above: Performed By: #### 1 0527335, 208082381, 48449888, 5657791, 05102425, 0036489 ####[address] [address] Neutrophils/100 WBC (Bld) 68.5 % Normal 36.0-75.[address] [facility] Comment on above: Performed By: #### 1 9373549, 040795155, 80669906, 2132247, 78640089, 4202278 ####[address] [address] Platelet 290.0 E9/L Normal 150.0-500. [address] [facility] Comment on above: Performed By: #### 1 7240840, 073807461, 35693457, 2838081, 20084925, 9372772 ####[address] [address] Platelet mean volume (Bld) [Entitic vol] 6.9 fL Normal 6.4-10.[address] [facility] Comment on above: Performed By: #### 1 9681168, 868318615, 08415913, 8486661, 84216516, 9502016 ####[address] [address] RBC (Bld) [#/Vol] 4.2 E12/L Low 4.3-5.[address] [facility] Comment on above: Performed By: #### 1 0372581, 950444934, 40271346, 2057227, 12333715, 9081664 ####[address] [address] WBC corrected for nucl RBC Auto (Bld) [#/Vol] 4.6 E9/L Normal 4.0-11.[address] [facility] Comment on above: Performed By: #### 1 7106643, 277087857, 88648964, 8547005, 20335060, 8108447 ####[address] [address] CHEMISTRYOrdered By: SYSTEM SYSTEM on 11-20-2023 Albumin [...] 11-20-2023 Albumin [Mass/Vol] 4.1 g/dL Normal 3.3-5.[address] [facility] Comment on above: Performed By: #### 1 8981058, 510127351, 89431219, 9825387, 32682290, 5235725 ####[facility] [address] [place] [address] Albumin/Globulin (S) [Mass conc ratio] 1.0 Low 1.1-2.[address] [facility] Comment on above: Performed By: #### 1 5810646, 930083331, 14594506, 4440183, 37384723, 9041970 ####[facility] [address] [place] [address] ALP [Catalytic activity/Vol] 52 Int._Unit/L Normal 21-[address] [facility] Comment on above: Performed By: #### 1 4026507, 775863298, 41568311, 2136670, 25604933, 9621721 ####[facility] [address] [place] [address] ALT No additional P-5'-P [Catalytic activity/Vol] 13 Int._Unit/L Normal 6-[address] [facility] Comment on above: Performed By: #### 1 2652358, 023495532, 34522933, 4735333, 34553523, 2542885 ####[facility] [address] [place] [address] Anion gap [Moles/Vol] 11 mmol/L Normal 6-16 [facility] Comment on above: Performed By: #### 1 8350027, 012733278, 48135331, 5345128, 30422634, 7412720 ####[facility] [address] [place] [address] AST [Catalytic activity/Vol] 19 Int._Unit/L Normal 5-[address] [facility] Comment on above: Performed By: #### 1 5139060, 019322469, 86511074, 2658287, 87517039, 8406922 ####[facility] [address] [place] [address] Bilirubin [Mass/Vol] 0.6 mg/dL Normal 0.0-1.1 [facility] Comment on above: Performed By: #### 1 3786054, 523010125, 98614994, 3002873, 90335249, 9611415 ####[facility] [address] [place] [address] Calcium [Mass/Vol] 9.4 mg/dL Normal 8.9-11.[address] [facility] Comment on above: Performed By: #### 1 1731101, 518108633, 49649115, 5464169, 94978790, 7441170 ####[address] [place] [address] Chloride [Moles/Vol] 103 mmol/L Normal 101-111 [facility] Comment on above: Performed By: #### 1 9173413, 247726117, 99332164, 4555293, 38331937, 3991965 ####[facility] [address] [place] [address] CO2 [Moles/Vol] 28 mmol/L Normal 21-[address] [facility] Comment on above: Performed By: #### 1 2253541, 113448789, 02600865, 3907527, 03235092, 0212667 ####[facility] [address] [place] [address] Creatinine [Mass/Vol] 0.6 mg/dL Normal 0.5-1.3 [facility] Comment on above: Performed By: #### 1 6533154, 905624227, 66581972, 3378791, 09298165, 1068121 ####[facility] [address] [place] [address] Globulin (S) [Mass/Vol] 4.0 g/dL Normal 1.4-4.[address] [facility] Comment on above: Performed By: #### 1 5518665, 593667380, 58572673, 2357038, 35815913, 1406713 ####[facility] [address] [place] [address] Glucose [Mass/Vol] 84 mg/dL Normal 55-[address] [facility] Comment on above: Performed By: #### 1 5947650, 679303630, 84441589, 1883118, 20677075, 2653031 ####[facility] [address] [place] [address] Potassium [Moles/Vol] 4.2 mmol/L Normal 3.5-5.3 [facility] Comment on above: Performed By: #### 1 8958091, 600484023, 75556299, 6185226, 62810033, 9132659 ####[facility] [address] [place] [address] Protein [Mass/Vol] 8.1 g/dL High 6.0-7.[address] [facility] Comment on above: Performed By: #### 1 1903362, 953659815, 17206794, 6813237, 36827934, 2318103 ####[facility] [address] [place] [address] Sodium [Moles/Vol] 138 mmol/L Normal 135-[address] [facility] Comment on above: Performed By: #### 1 3221757, 803311974, 24806810, 4856678, 23078380, 0131401 ####[facility] [address] [place] [address] Urea nitrogen [Mass/Vol] 17 mg/dL Normal 5-[address] [facility] Comment on above: Performed By: #### 1 7407921, 086671051, 16178694, 4792818, 73776071, 7616456 ####[facility] [address] [place] [address] Urea nitrogen/Creatinine [Mass ratio] 28 No Units High 10-[address] [facility] Comment on above: Performed By: #### 1 1495368, 156077990, 07265142, 2748558, 04951150, 9321547 ####[facility] [address] [place] [address] Consent for Treatmenton Consent for Treatment [id number]#1.00TIFF Normal [facility] HEMATOLOGYOrdered By: SYSTEM SYSTEM on 11-20-2023 Basophils/100 [...] 11-20-2023 eGFR 100 mL/min/1.73 m2 Normal >=[address] [facility] Comment on above: Order Comment: Order added by Discern Expert. Performed By: #### 1 6332757, 327875439, 29348317, 2596769, 92982554, 3313653 ####[facility] [address] [place] [address] General Surgery Office/Clini c Noteon 11-14-2023 General Surgery Office/Clinic Note Chief Complaint 3 month follow up HPI Staff Emeli is a 62 y.o. female here for 3 month follow up Hx of left breast cancer s/p [place] Node biopsy of left done 04/11/2023 Denies [...] with voice recognition artificial intelligence software, specifically [employer] and or [employer]. Substitutions may have occurred due to the inherent limitations of voice recognition and artificial intelligence software. ATTESTATION: Documentation services were performed after patient or guardian consented to allow [employer] to record this visit. SANTA emr specialist and provider reviewed before signing. SANTA: [...] 50,000 intl units (1.25 mg) oral capsule, [address] International_Unit= 1 cap(s), Oral, qWeek Allergies No [...] Recorded diphthe (more content not included)... Normal [facility] Comment on above: Result Comment: Elec tronically Signed By: Aurora RICE, Lauro Toro\.br\Date and Time Signed: 11/14/23 08:56 EDT\.br\Electronically Co-Signed [...] PM EDT With: Lauro Simon MD Where: [facility] General Surgery [facility] Insurance Correspondenceon 0 09-25-2023 Insurance Correspondence [id number]#1.00TIFF [facility] Consent for Treatmenton 08-17 Consent for Treatment [id number]#1.00TIFF [facility] ED Pat Eduon 09-04-2023 ED Pat [...] including vitamins, herbs, eye drops, creams, and hsxw-kfs-kqkqdlk medicines. ? Any medical conditions you have. [...] protein: ? Premature infant: 4.2?7.6 g/dL. ? [place]: 4.6?7.4 g/dL. ? Infant: 6?6.7 g/dL. ? [...] provider. Document Revised: 03/26/2021 Document Reviewed: 03/26/2021 [employer] Patient Education ? 2022 [place]. Normal [facility] Oncology Progress Noteon Oncology Progress Note Chief Complaint Breast CA Pt has no major ques/concerns for doc today. Diagnoses 1. Breast cancer, left (C50.912: Malignant neoplasm of unspecified site of left female breast) Oncological History/ROS/PE/Assessment and Plan Chief Complaint Left breast invasive lobular carcinoma, ER +90%, HI +20 to 30%, HER2/elif 1+, and Ki67 [...] left breast invasive lobular carcinoma, ER +90%, HI +20 to 30%, HER2/elif 1+, and Ki67 was positive 1%. 2 out of 2 sentinel lymph node with positive for macro metastatic disease. Her tumor was discussed at the [facility] tumor board patient is to obtain Oncotype [...] Lumpectomy with wire-guided localization LYMPH NODE SAMPLING: [place] lymph node(s) SPECIMEN INTEGRITY: multiple specimens (A [...] score of (more content not included)... Normal [facility] Outside Oncologyon 4 Outside Oncology [id number]#1.00TIFF Normal [facility] CHEMISTRYOrdered By: SYSTEM SYSTEM on 09-01-2023 Albumin [...] for Treatmenton 08-17 Consent for Treatment [id number]#1.00TIFF Normal [facility] Hep Func Panelon 09-01-2023 Albumin [Mass/Vol] 4.0 g/dL Normal 3.3-5.[address] [facility] Comment on above: Performed By: #### 2 580073 #### [facility] [address] [place] [address] Albumin/Globulin [Mass ratio] 0.9 {ratio} Low 1.1-2.[address] [facility] Comment on above: Performed By: #### 2 606672 #### [facility] [address] [place] [address] Alk Phos 67 Int._Unit/L Normal 21-[address] [facility] Comment on above: Performed By: #### 2 535786 #### [facility] [address] [place] [address] ALT 11 Int._Unit/L Normal 6-[address] [facility] Comment on above: Performed By: #### 2 015001 #### [facility] [address] [place] [address] AST 18 Int._Unit/L Normal 5-[address] [facility] Comment on above: Performed By: #### 2 691671 #### [facility] [address] [place] [address] Bili Direct 0.1 mg/dL Normal 0.0-0.[address] [facility] Comment on above: Performed By: #### 2 634821 #### [facility] [address] [place] [address] Bili Indirect 0.4 mg/dL Normal 0.1-0.[address] [facility] Comment on above: Performed By: #### 2 840825 #### [facility] [address] [place] [address] Bili Total 0.5 mg/dL Normal 0.0-1.[address] [facility] Comment on above: Performed By: #### 2 210408 #### [facility] [address] [place] [address] Globulin (S) [Mass/Vol] 4.6 g/dL High 1.4-4.[address] [facility] Comment on above: Performed By: #### 2 210727 #### [facility] [address] [place] [address] Protein [Mass/Vol] 8.6 g/dL High 6.0-7.[address] [facility] Comment on above: Performed By: #### 2 473199 #### [facility] [address] [place] [address] Ambulatory Visit Summaryon 0 08-07-2023 Ambulatory Visit [...] EDT With: Aurora RICE, Lauro Toro Where: [facility] General Surgery [place] Normal [facility] General Surgery Office/Clini c Noteon 08-07-2023 General Surgery Office/Clinic Note Chief Complaint 3 month follow up HPI Staff Emeli is a 62 y.o. female here for 3 month follow up Hx of left breast cancer s/p [place] Node biopsy of left done 04/11/2023 denies breast changes She started letrozole 2.5 mg History of Present Illness 62-year-old female status post left breast needle localized lumpectomy, left axillary sentinel lymph node biopsy performed for ER positive HI HER2 negative T1 N1 MX breast cancer 2 of 2 lymph nodes found to have metastases, low Oncotype DX with chemotherapy declined by medical oncology, completed radiation therapy at [facility] here today for breast cancer [...] normal Assessment/Plan 62-year-old female with ER positive HI HER2 negative breast cancer status post needle left breast localized lumpectomy left sentinel lymph node biopsy performed March 2023 here for surveillance visit 1. Breast cancer, left (C50.912: Malignant neoplasm of unspecified site of left female breast) Follow-up 3 months Ordered: E&M of Est. Patient Low 20-29 Min 70786 2. Encounter for follow-up surveillance of breast cancer (Z08: Encounter for follow-up examination after completed treatment for malignant neoplasm) As above Ordered: E&M of Est. Patient Low 20-29 Min [id number] Portions of this record may have been created with voice recognition artificial intelligence software, specifically [employer], [employer] and or [employer]. Substitutions may have occurred due to the [...] 50,000 intl units (1.25 mg) oral capsule, 33255 International_Unit= 1 cap(s), Oral, qWeek Allergies No [...] virus vaccine, inactivated 07/14/2014 Recorded Normal [facility] Comment on above: Result Comment: Elec tronically [...] Dale MD Transcribed by: MEAGAN Technologist: VINCE [facility] Operative Reporton 3 Operative Report [id number]#1.00TIFF [facility] Consent for Treatmenton 05-17 Consent for Treatment [id number]#1.00TIFF [facility] Outside Progress Noteon 05-17 Outside Progress Note [id number]#1.00TIFF [facility] 29on 05-25-2023 29 Encounter addended b y: Deja Mendez on: 05/25/2023 4:02 PM Actions taken: Letter saved [facility] 80on 05-25-2023 80 Normal [facility] Orders Onlyon 05-24-2023 Orders Only [id number] Conor Kaufman Nehal 1960 F Date Provider Department Center 05/24/2023 Aleja3-OSITO [facility] RAD ONC DCC No family history on file Normal [facility] CHEMISTRYOrdered By: SYSTEM SYSTEM on 05-22-2023 [...] Consent for Treatmenton Consent for Treatment [id number]#1.00TIFF Normal [facility] Consent for Treatment [id number]#1.00TIFF [facility] Hep Func Panelon 05-22-2023 Bilirubin.indirect [Mass or moles/Vol] UTC Abnormal 0.1-0.[address] [facility] Comment on above: Result Comment: Resu lt verified by Discern Rule. Performed result UT (Unable to Calculate) was sent as an Alpha code due the inability to calculate a valid numeric value. Performed By: #### 2 [id number] #### [facility] Laboratory [address] [place] [address] Albumin [Mass/Vol] 3.5 g/dL Normal 3.3-5.[address] [facility] Comment on above: Performed By: #### 2 [id number] #### [facility] [address] [place] [address] Albumin/Globulin (S) [Mass conc ratio] 0.8 Low 1.1-2.[address] [facility] Comment on above: Performed By: #### 2 [id number] #### [facility] [address] [place] [address] ALP [Catalytic activity/Vol] 65 Int._Unit/L Normal 21-[address] [facility] Comment on above: Performed By: #### 2 [id number] #### [facility] [address] [place] [address] ALT No additional P-5'-P [Catalytic activity/Vol] 13 Int._Unit/L Normal 6-[address] [facility] Comment on above: Performed By: #### 2 327857 #### [facility] [address] [place] [address] AST [Catalytic activity/Vol] 20 Int._Unit/L Normal 5-[address] [facility] Comment on above: Performed By: #### 2 765287 #### [facility] [address] [place] [address] Bilirubin [Mass/Vol] 0.3 mg/dL Normal 0.0-1.1 [facility] Comment on above: Performed By: #### 2 [id number] #### [facility] [address] [place] [address] Globulin (S) [Mass/Vol] 4.5 g/dL High 1.4-4.[address] [facility] Comment on above: Performed By: #### 2 729839 #### [facility] [address] [place] [address] Protein [Mass/Vol] 8.0 g/dL High 6.0-7.[address] [facility] Comment on above: Performed By: #### 2 743960 #### [facility] [address] [place] [address] Bilirubin.direct [Mass/Vol] mg/dL Normal 0.1-0.[address] [facility] Comment on above: Performed By: #### 2 475127 #### [facility] [address] [place] [address] Oncology Noteon 05-22-2023 Oncology Note Oncology Care Coordi nator Office Visit/Treatment Note Current Patient Status/Reason: Pt in with family member for scheduled clinic visit after diagnosis of breast cancer. I accompanied Dr. Narayan in room. explained Oncotype Dx findings, with understanding voiced. Pt has appt with [facility] radiation oncologist on 05/25. explained aromatase inhibitor to start 1 week after finishing radiation. Treatment Plan: [facility] radiation of breast. LFT, now [...] central scheduling dept. Pt voiced understanding. Normal [facility] Comment on above: Result Comment: Elec tronically Signed By: Matias CRAMER, Akua\.br\Date and Time Signed: 05/22/23 14:57 EST Oncology Progress Noteon Oncology Progress Note Patient: EMELI KAUFMAN Age: 62 years Sex: Female : 1960 Associated Diagnoses: None Author: Sylvain RICE, Neftali Ling Chief Complaint Left breast invasive lobular carcinoma, ER +90%, HI +20 to 30%, HER2/elif 1+, and Ki67 [...] left breast invasive lobular carcinoma, ER +90%, HI +20 to 30%, HER2/elif 1+, and Ki67 was positive 1%. 2 out of 2 sentinel lymph node with positive for macro metastatic disease. Her tumor was discussed at the [facility] tumor board patient is to obtain Oncotype [...] Lumpectomy with wire-guided localization LYMPH NODE SAMPLING: [place] lymph node(s) SPECIMEN INTEGRITY: multiple specimens (A [...] invasive tumor cells, performed on previous biopsy (109), please refer to previous report for details PROGESTERONE RECEPTOR: 20-30% of invasive tumor cells, performed on previous biopsy (103), please refer to previous report for details Ki-67 INDEX OF INVASIVE TUMOR CELLS: Approximately 1% of invasive tumor cells, performed on previous biopsy (974), please refer to previous report for details HER2/ELIF STUDIES: 1+ (IHC), performed on previous biopsy (012), please refer to previous report for details [...] adjuvant endocrine (more content not included)... Normal [facility] Patient Educationon 05-22-20 Patient Education Normal [facility] Lab Reportson 05-12-2023 Lab Reports [id number]#1.00TIFF Normal [facility] Reference Lab Reporton 05-09 Reference Lab Report [id number]#1.00TIFF Normal [facility] Consenton 05-03-2023 Consent [id number]#1.00TIFF Normal [facility] ONC - Otheron 05-03-2023 ONC - Other [id number]#1.00TIFF Normal [facility] General Surgery Office/Clini c Noteon 05-02-2023 General [...] with voice recognition artificial intelligence software, specifically [employer], [employer] and or [employer]. Substitutions may have occurred voice recognition and artificial intelligence software. Documentation services were performed after patient or guardian consented to allow [employer] to record this visit. SANTA emr specialist and provider reviewed before signing. SANTA: [...] 50,000 intl units (1.25 mg) oral capsule, 24326 International_Unit= 1 cap(s), Oral, qWeek Allergies No [...] No results were obtained or interrupted today. [facility] Comment on above: Result Comment: Elec tronically Signed By: Lauro Simon MD\.br\Date and Time Signed: 05/02/23 08:37 EDT\.br\Electronically Co-Signed By: Scarlet Neal\.br\Date and Time Co-Signed: 05/01/23 14:47 EDT\.br\Electronically Co-Signed By: Scarlet Neal\.br\Date and Time Co-Signed: 05/01/23 14:52 EDT Consent for Treatmenton 04-16 Consent for Treatment [id number]#1.00TIFF [facility] Oncology Noteon 05-01-2023 Oncology Note Oncology Care Coordi nator Office Visit/Treatment Note Current Patient Status/Reason: Patient here with spouse for scheduled Initial Clinic Visit. I accompanied Dr. Narayan in room. Patient informs of left breast cancer - ER/HI positive. Patient has positive Lymph node. Medical history reviewed. Disease process and treatment options reviewed. Treatment Plan: Oncotype DX(per Teri/Dr. Simon's office will send), refer to Radiation-[facility] per patient's request Follow-Up Appointment Info/Referrals: 3 weeks Resources Offered: Distress thermometer of 4 discussed - no needs at this time. 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 Contact information provided to patient. [facility] Comment on above: Result Comment: Elec tronically Signed By: Donna CRAMER, Aundrea Perez\.br\Date and Time Signed: 05/01/23 12:59 EDT Oncology Progress Noteon Oncology Progress Note Patient: EMELI KAUFMAN Age: 62 years Sex: Female : 1960 Associated Diagnoses: None Author: Sylvain RICE, Neftali Ling Chief Complaint Left breast invasive lobular carcinoma, ER +90%, HI +20 to 30%, HER2/elif 1+, and Ki67 [...] left breast invasive lobular carcinoma, ER +90%, HI +20 to 30%, HER2/elif 1+, and Ki67 was positive 1%. 2 out of 2 sentinel lymph node with positive for macro metastatic disease. Her tumor was discussed at the [facility] tumor board patient is to obtain Oncotype [...] Lumpectomy with wire-guided localization LYMPH NODE SAMPLING: [place] lymph node(s) SPECIMEN INTEGRITY: multiple specimens (A [...] invasive tumor cells, performed on previous biopsy ([id number]), please refer to previous report for details [...] Negative. Ne (more content not included)... Normal [facility] Ambulatory Visit Summaryon 1 Ambulatory Visit Summary [...] EDT With: Aurora RICE, Lauro Toro Where: [facility] General Surgery [place] Normal [facility] General Surgery Office/Clini c Noteon 04-21-2023 General [...] 2 nodes with metastatic disease, margins clear ER/HI positive HER2 negative low Ki-67 index T1 cN1 Mx 1. Breast cancer, left (C50.912: Malignant neoplasm of unspecified site of left female breast) Medical oncology, follow-up in 2 weeks for wound check, Oncotype DX, patient is listed for tumor board. Ordered: [facility] Internal Ambulatory Referral Postoperative follow-up visit, related to the original procedure 85107 Follow-up No qualifying data available Problem List/Past [...] 50,000 intl units (1.25 mg) oral capsule, 27519 International_Unit= 1 cap(s), Oral, qWeek Allergies No [...] influenza virus vaccine, inactivated 07/14/2014 Recorded Normal [facility] Comment on above: Result Comment: Elec tronically Signed By: Aurora RICE, Lauro Toro\.br\Date and Time Signed: 04/21/23 09:12 EDT IntraOperative Documentson 1 IntraOperative Documents [id number]#1.00CD:127 [facility] Main OR Intraoperative Recor don 04-13-2023 Main OR Intraoperative Record IntraOp Document Type FT Summary Primary Physician: Lauro Simon MD Finalized Date/Time: 04/13/23 13:34:41 Pt. Name: EMELI KAUFMAN/Sex: 1960 Female Med Rec #: [id number] Physician: Lauro Simon MD Financial #: [id number] Pt. Type: A Room/Bed: [place] [address] Admit/Disch: 04/11/23 08:40:14 - 04/11/23 15:30:00 Institution: [...] Surgeon - Primary Anesthesiologist Scrub - Primary Sales And Marketing Representative Time In 04/11/23 11:45:00 04/11/23 11:25:00 04/11/23 11:25:00 Time Out 04/11/23 12:58:00 04/11/23 13:19:00 04/11/23 13:01:00 Procedure BREAST BIOPSY(Left), BREAST BIOPSY(Left), BREAST BIOPSY(Left), SENTINEL NODE SENTINEL NODE SENTINEL NODE BIOPSY(Left) BIOPSY(Left) BIOPSY(Left) Comments Dr. Hanson supervising Last Modified By: Iván RN, Teresa Minor RN, Teresa Mcdowell RN 04/11/23 13:19:26 04/11/23 13:19:26 04/11/23 13:19:26 Entry 4 Entry 5 Entry 6 Case Attendee Iván CRAMER, Teresa Bautista, Darrel Hernandez RN, Kayla Alatorre Role Performed Beef Grinder - Primary PITCH FILLER/SA Beef Grinder - Relief Time In 04/11/23 11:25:00 04/11/23 11:25:00 04/11/23 11:50:00 Time Out 04/11/23 13:19:00 04/11/23 13:19:00 04/11/23 12:35:00 Procedure BREAST BIOPSY(Left), BREAST BIOPSY(Left), BREAST BIOPSY(Left), SENTINEL NODE SENTINEL NODE SENTINEL NODE BIOPSY(Left) BIOPSY(Left) BIOPSY(Left) Comments Out of room for lunch [phone] Last Modified By: Teresa Minor RN, RN, Teresa Mcdowell RN 04/11/23 13:19:26 04/11/23 [...] signs and sympto (more content not included)... [facility] Postoperative Documentson Postoperative Documents [id number]#1.00CD:127 [facility] Progress Note-Physicianon Progress Note-Physician Patient: EMELI KAUFMAN Age: 62 years Sex: Female : 1960 Associated Diagnoses: None Author: MD Valentin, Chloe Arechiga Postoperative Information Postoperative disposition: Postoperative disposition: To PACU. Optimetrix number: Optimetrix number [id number]. Anesthetic utilized: General. Health Status Allergies: Allergic [...] when meets criteria ( To home ). [facility] Comment on above: Result Comment: Elec [...] Medication Allergies Current medications: (Selected) Prescriptions Prescribed Allison 325 mg-5 mg oral tablet: 1 tab(s), Oral, q6hr as needed for pain, 12 tab(s), Refill(s) 0, [facility] #37, 165, cm, 03/01/23 11:22:00 EDT, Height/Length [...] Frequent episodes of pneumonia / SNOMED CT 034841053 / Confirmed Multiple sclerosis / SNOMED CT 15770758 / Confirmed Abnormal mammogram of left breast / SNOMED CT 408493719 / Confirmed Breast cancer, left / SNOMED CT 104610736 / Confirmed BMI 22.0-22.9, adult / SNOMED CT 0635804756 / Confirmed Personal history of bronchiectasis / SNOMED CT 115831778 / Confirmed Inactive: EVAN (mycobacterium avium-intracellulare) / SNOMED CT 9420195869 Resolved: Bronchiectasis / SNOMED CT 83613675 Histories Past Medical History: Resolved Bronchiectasis (44887518): Resolved. Family History: Procedure history: Biopsy of lymph node in left breast (73175783) on 04/11/2023 at 62 Years. Bronchoscopy (47247565) on 06/16/2021 at 60 Years. section (47663611). Biopsy of breast - left (569010301). Social History Social & Psychosocial Habits Alcohol [...] results Radiology results ECG interpretation Condition Plan [place] [employer] Anesthesiologists (ASA) physical status classification: Class II. Anesthetic Preoperative Plan Anesthesia: General. . Anesthetic plan, risks, benefits, and alternatives discussed with the patient and/or family. Risks discussed: nausea, vomiting, headache, sore throat, dental injury, serious complications. Patient verbalized understanding. Communication: face to face with patient 5 minutes. [facility] Comment on above: Result Comment: Elec tronically Signed By: MD Valentin, Chloe Arechiga\.br\Date and Time Signed: 04/13/23 09:54 EDT Consent for Anesthesiaon Consent for Anesthesia [id number]#1.00CD:127 [facility] Discharge Instructionson Discharge Instructions [id number]#1.00CD:127 [facility] IntraOperative Documentson 0 04-12-2023 IntraOperative Documents [id number]#1.00CD:127 [facility] IntraOperative Documents [id number]#1.00CD:127 [facility] Preoperative Documentson Preoperative Documents [id number]#1.00CD:127 [facility] Provider Letteron 04-12-2023 Provider Letter (Inserted Image. Frances ble to display) April 12, 2023 EMELI KAUFMAN [id number] [place] [address] : 1960 To Whom It May Concern, Please excuse above patient from work. Date of Illness: From: 04/11/2023 To: 04/14/2023 May Return to Work On: 04/17/2023 Restrictions: None Comments: _ Sincerely, Lauro Simon MD [facility] General Surgery work excuse emailed to [email or web address] per patient request. [facility] Consent for Procedure/Surger yon 04-11-2023 Consent for Procedure/Surgery [id number]#1.00CD:127 [facility] Consent for Treatmenton 03-18 Consent for Treatment [id number]#1.00CD:127 [facility] Discharge Instructionson Discharge Instructions EMELI KAUFMAN :1960 Visit Date:04/11/2023 Inpatient Discharge Instructions Your Care Team Admitting Physician - Lauro Simon MD Consulting Physician - Tee Lobato M.D. Referring Physician - Lauro Simon MD Reason for Your Visit C50.912 This Is Your Medications List acetaminophen-hydrocodone (Allison 325 mg-5 mg oral tablet) ergocalciferol (Vitamin [...] AM EDT With: Lauro Simon MD Where: [facility] General Surgery [facility] Comment on above: Result Comment: Elec tronically Signed By: Madi CRAMER, Rio Olson\.br\Date and Time Signed: 04/11/23 13:59 EDT H&P Updateon 04-11-2023 H&P Update [id number]#1.00CD:127 [facility] Inpatient Patient Summaryon 04-11-2023 Inpatient Patient Summary [place] [id number] [facility] Clinical Discharge Instructions PERSON INFORMATION Name: EMELI KAUFMAN PHYSICIANS Admitting Physician: Lauro Simon MD Attending Physician: Lauro Simon MD PCP: Brianna Yanez MD Discharge Diagnosis: Comment: PATIENT EDUCATION INFORMATION Instructions: Lumpectomy, Care After Medication Leaflets: Follow up: With: Address: When: Lauro Simon [address] [place] [address], [facility] [address], [place] [phone] Business (1) Comments: Appointment has already been scheduled Type Location Start [facility] MA Needle Loc (FT) FT.MAMMOGRAM 04/11/2023 9:00 AM 04/11/2023 9:45 AM Confirmed NM Lymphoscintigraphy (FT) FT.NUCLEAR MED 04/11/2023 10:30 AM 04/11/2023 12:00 PM Confirmed GS Post Op 15 [facility] GS Pelon 04/21/2023 8:40 AM 04/21/2023 9:00 AM Confirmed MEDICATION LIST New Medications [facility], [address] [place], [place] [id number], [phone] acetaminophen-hydrocodone (Allison 325 mg-5 mg oral tablet) 1 Tablets [...] dose Inhalation every day., bronchiectasis Comment: Normal [facility] Breast Needle Loc w/ Guid ance, Lefton 04-11-2023 [place] Breast Needle Loc w/ Guidance, Left Exam [...] Lobato M.D. Transcribed by: MEAGAN Technologist: PETRA Normal [facility] Surgical Specimen Lefton 04-11-2023 [place] Surgical Specimen [...] Tee Lobato M.D. Transcribed by: MEAGAN Technologist: [facility] Main OR PACU I Recordon 03-18 Main OR PACU I Record PACU Phase I Docum ent Type FT Summary Primary Physician: Lauro Simon MD Finalized Date/Time: 04/11/23 14:30:12 Pt. Name: EMELI KAUFMAN/Sex: 1960 Female Med Rec #: [id number] Physician: Lauro Simon MD Financial #: [id number] Pt. Type: A Room/Bed: [place] [address] Admit/Disch: 04/11/23 08:40:14 - Institution: Case Times [...] By: Magalys Wiggins RN 04/11/23 14:[address] [facility] Main OR PACU II Recordon Main OR PACU II Record PACU Phase II Doc ument Type FT Summary Primary Physician: Lauro Simon MD Finalized Date/Time: 04/11/23 15:52:51 Pt. Name: EMELI KAUFMAN/Sex: 1960 Female Med Rec #: [id number] Physician: Lauro Simon MD Financial #: [id number] Pt. Type: A Room/Bed: [facility]09/14 Admit/Disch: 04/11/23 08:40:14 - Institution: Case [...] By: Rio Barraza RN 04/11/23 15:[address] [facility] Main OR Preoperative Recordo n 04-11-2023 Main OR Preoperative Record PreOp Document Type FT Summary Primary Physician: Lauro Simon MD Finalized Date/Time: 04/11/23 11:39:26 Pt. Name: CONOR KAUFMANJOSELINE Art/Sex: 1960 Female Med Rec #: [id number] Physician: Lauro Simon MD Financial #: [id number] Pt. Type: A Room/Bed: AS13 Admit/Disch: 04/11/23 08:40:14 - Institution: Case Times [...] 11:39 Teresa Minor RN 04/11/23 11:[address] [facility] Monitor Recordon 04-11-2023 Monitor Record [id number]#1.00CD:[address] [facility] Monitor Record [id number]#1.00CD:[address] [facility] NM Lymphoscintigraphyon 03-18 NM Lymphoscintigraphy Exam Date/Time: [...] Comments Dose (mCi Tc99m Lymphoseek): [address] [facility] Outpatient Surgery Discharge Instructionon 04-11-2023 Outpatient Surgery Discharge Instruction [place] [address] Patient Discharge Instructions PERSON INFORMATION Name: EMELI [...] Date Follow up: With: Address: When: Lauro Siomn [address], [address], [address] [place] [address] [place] [phone] Business (1) Comments: Appointment has already been scheduled Type Location Start [facility] [place] Needle Loc (FT) FT.MAMMOGRAM 04/11/2023 9:00 AM 04/11/2023 9:45 AM Confirmed NM Lymphoscintigraphy (FT) FT.NUCLEAR MED 04/11/2023 10:30 AM 04/11/2023 12:00 PM Confirmed GS Post Op [facility] 04/21/2023 8:40 AM 04/21/2023 9:00 AM Confirmed Pharmacy Information: You may receive a survey from [employer] asking you to rate your care experience. Your feedback is important and will help us understand what we do well and how we can improve the quality of care we provide to you, your loved ones and our community. It?s an honor to serve you. Thank you for choosing [facility] HERE ARE THE MEDICATION CHANGES THAT OCCURRED DURING YOUR HOSPITAL STAY New Medications [facility] [address], [address] [place], [place] [id number], [phone] acetaminophen-hydrocodone (Allison 325 mg-5 mg oral tablet) 1 Tablets [...] these instructions at home: Medicines ? Take kwsb-ovr-tmtpmmj and prescription medicines only as told by [...] keep your urine pale yellow. ? Take yrfw-wik-xysgvjq or prescription medicines. ? Eat foods that are high in fiber, such as beans, whole grains, and fresh fruits and vegetables. ? Limit foods that are high in fat and processed sugars, such as fried or sweet foods. Incision care ? Follow instructio (more content not included)... Normal [facility] Patient Education - Texton 0 04-11-2023 Patient [...] these instructions at home: Medicines ? Take crvn-bhg-ucsymla and prescription medicines only as told by [...] keep your urine pale yellow. ? Take ctnk-ljt-qfmpvub or prescription medicines. ? Eat foods that [...] water are not available, use hand animal impersonator. ? Change your dressing as told by [...] ? Pus (more content not included)... Normal [facility] RAD - Consent to Procedureon 04-11-2023 RAD - Consent to Procedure [id number]#1.00CD:[address] [facility] Consultation Noteon 04-06-20 Consultation Note [id number]#1.00CD:[address] [facility] Consultation Noteon 03-31-20 Consultation Note [id number]#1.00CD:[address] [facility] Operative Reporton Operative Report [id number]#1.00CD:[address] [facility] RAD - CT Reporton 03-31-2023 RAD - CT Report [id number]#1.00CD:[address] [facility] Insurance Correspondenceon 03-15-2023 Insurance Correspondence [id number] [facility] CHEMISTRYOrdered By: SYSTEM SYSTEM on 02-22-2023 Anion gap [Moles/Vol] 11 mmol/L Normal 6 - 16 mEq/L [facility] Remisol Chloride [Moles/Vol] 105 mmol/L Normal 101 - 1 11 mmol/L [facility] Remisol CO2 [Moles/Vol] 26 mmol/L Normal 21 - 31 mmol/L [facility] Remisol Creatinine [Mass/Vol] 0.7 mg/dL Normal 0.5 - 1.3 mg/dL [facility] Remisol GFR/1.73 sq M.predicted among non-blacks MDRD (S/P/Bld) [Vol rate/Area] 97 mL/min/1.73 m2 Normal >=59mL/min /1.73 m2 [facility] Chem S Glucose [Mass/Vol] 93 mg/dL Normal 55 - 199 mg/dL [facility] Remisol Potassium [Moles/Vol] 4.1 mmol/L Normal 3.5 - 5.3 mmol/L [facility] Remisol Sodium [Moles/Vol] 138 mmol/L Normal 135 - 145 mmol/L [facility] Remisol Urea nitrogen [Mass/Vol] 21 mg/dL Normal 5 - 21 mg/dL [facility] Remisol HEMATOLOGYOrdered By: Rama Davenport on 02-22-2023 Erythrocyte distribution width (RBC) [Ratio] 15.4 % High 10.9 - 14.2 % [facility] HemeAutoSS Hematocrit (Bld) [Volume fraction] 36.5 % [...] Observations : NORMAL RESPIRATORY LI. Normal [facility] Comment on above: Performed By: #### C BC #### [facility] [address] [place] [address] Dr. Ildefonso Finn SPUTUM GRAM STAINon 12-11-19 23 COMMENTS Normal [facility] Comment on above: Performed By: #### S PUTGS #### [facility] [address] [address] [address] Ildefonso Finn DIPHTHEROIDS Normal [facility] Comment on above: Performed By: #### S PUTGS #### [facility] [address] [place] [address] Dr. Ildefonso Finn EPITHELIALS <25 Normal [facility] Comment on above: Performed By: #### S PUTGS #### [facility] [address] [address] [address] Ildefonso Finn FUNGAL ELEMENTS Normal [facility] Comment on above: Performed By: #### S PUTGS #### [facility] [address] [address] [address] Ildefonso Finn GRAM NEG BACILLI Normal [facility] Comment on above: Performed By: #### S PUTGS #### [facility] [address] [place] [address] Dr. Ildefonso INGRAM NEG DIPPLOCOCCI Normal [facility] Comment on above: Performed By: #### S PUTGS #### [facility] [address] [place] [address] Dr. Ildefonso INGRAM POS BACILLI Normal [facility] Comment on above: Performed By: #### S PUTGS #### [facility] [address] [place] [address] Dr. Ildefonso INGRAM POSITIVE COCCI MODERATE Normal [facility] Comment on above: Performed By: #### S PUTGS #### [facility] [address] [place] [address] Dr. Ildefonso Finn WBC (Bld) [#/Vol] 10*3/uL Normal [facility] Comment on above: Performed By: #### S PUTGS #### [facility] [address] [place] [address] Dr. Ildefonso Finn [facility]on SARS-CoV-2 (COVID-19) RNA KARLA+probe Ql (Unsp spec) Not detected Normal NOT DETECTED [facility] Comment on above: Result Comment: When [...] for this test is supported by the Detective Sergeant of Health and Human Service's declaration that [...] used). Performed By: #### C VDTBH #### [facility] [address] [place] [address] Dr. Ildefonso Finn INFLUENZA A AND B AGon 09[facility] Normal [facility] Comment on above: Result Comment: Nega tive for Flu A protein angiten. Infection due to Flu A cannot be ruled out. Flu A angiten in the sample may be below the detection limit of the test. Performed By: #### I NFLUAB #### [facility] [address] [place] [address] Dr. Ildefonso Finn INFLUBNEG SEE BELOW Normal [facility] Comment on above: Result Comment: Nega tive for Flu B protein antigen. Infection due to Flu B cannot be ruled out. Flu B antigen in the sample may be below the detection limit of the test. Performed By: #### I NFLUAB #### [facility] [address] [place] [address] Dr. Ildefonso Finn INFLUENZA A AG Negative Normal NEGATIVE SEE COMMENT [facility] Comment on above: Performed By: #### I NFLUAB #### [facility] [address] [place] [address] Dr. Ildefonso Finn INFLUENZA B AG Negative Normal NEGATIVE SEE COMMENT [facility] Comment on above: Performed By: #### I NFLUAB #### [facility] [address] [place] [address] Dr. Ildefonso Finn OCC BLD IMMUNO SCREENon 06-17 OCCULT BLOOD Negative Normal NEGATIVE [facility] Comment on above: Performed By: #### O BSCRN #### [facility] [address] [place] [address] Dr. Ildefonso Finn CBC AUTO DIFFon 07-02-2022 BASO # 0.0 103/ul Normal 0.0-0.1 [facility] Comment on above: Performed By: #### C BC #### [facility] [address] [place] [address] Dr. Ildefonso Finn Basophils/100 WBC (Bld) 0.8 % Normal 0.2-2.0 [facility] Comment on above: Performed By: #### C BC #### [facility] [address] [place] [address] Dr. Ildefonso Finn EO # 0.1 103/ul Normal 0.0-0.7 [facility] Comment on above: Performed By: #### C BC #### [facility] [address] [place] [address] Dr. Ildefonso Finn Eosinophils/100 WBC (Bld) 1.1 % Normal 0.9-7.0 [facility] Comment on above: Performed By: #### C BC #### [facility] [address] [place] [address] Dr. Ildefonso Finn Erythrocyte distribution width (RBC) [Ratio] 13.4 % Normal 11.0-15.0 [facility] Comment on above: Performed By: #### C BC #### [facility] [address] [place] [address] Dr. Ildefonso Finn Hematocrit (Bld) [Volume fraction] 39.5 % Normal 36.0-48.0 [facility] Comment on above: Performed By: #### C BC #### [facility] [address] [place] [address] Dr. Ildfeonso Finn Hemoglobin (Bld) [Mass/Vol] 12.9 g/dL Normal 12.0-16.0 [facility] Comment on above: Performed By: #### C BC #### [facility] [address] [place] [address] Dr. Ildefonso Finn IG # 0.01 10e3/ul Normal 0.00-0.03 [facility] Comment on above: Performed By: #### C BC #### [facility] [address] [place] [address] Dr. Ildefonso Finn IG % 0.2 % Normal 0.0-0.5 [facility] Comment on above: Performed By: #### C BC #### [facility] [address] [place] [address] Dr. Ildefonso Finn LYMPH # 1.1 103/ul Critically low 1.2-3.8 [facility] Comment on above: Performed By: #### C BC #### [facility] [address] [place] [address] Dr. Ildefonso Finn Lymphocytes/100 WBC (Bld) 20.3 % Critically low 20.5-60.0 [facility] Comment on above: Performed By: #### C BC #### [facility] [address] [place] [address] Dr. Ildefonso Finn MANUAL DIFF REQ NO Normal [facility] Comment on above: Performed By: #### C BC #### [facility] [address] [place] [address] Dr. Ildefonso Finn MCH (RBC) [Entitic mass] 29.3 pg Normal 26.7-34.0 [facility] Comment on above: Performed By: #### C BC #### [facility] [address] [place] [address] Dr. Ildefonso Finn MCHC (RBC) [Mass/Vol] 32.7 g/dL Normal 29.9-35.2 [facility] Comment on above: Performed By: #### C BC #### [facility] [address] [place] [address] Dr. Ildefonso Finn MCV (RBC) [Entitic vol] 89.8 fL Normal 81.0-99.0 [facility] Comment on above: Performed By: #### C BC #### [facility] [address] [place] [address] Dr. Ildefonso Finn MONO # 0.5 103/ul Normal 0.3-0.8 [facility] Comment on above: Performed By: #### C BC #### [facility] [address] [place] [address] Dr. Ildefonso Finn Monocytes/100 WBC (Bld) 10.0 % Normal 1.7-12.0 [facility] Comment on above: Performed By: #### C BC #### [facility] [address] [place] [address] Dr. Ildefonso Finn NEUT # 3.6 103/ul Normal 1.4-6.5 [facility] Comment on above: Performed By: #### C BC #### [facility] [address] [place] [address] Dr. Ildefonso Finn Neutrophils/100 WBC (Bld) 67.6 % Normal 43.0-75.0 [facility] Comment on above: Performed By: #### C BC #### [facility] [address] [place] [address] Dr. Ildefonso Finn Platelet mean volume (Bld) [Entitic vol] 9.0 fL Critically low 9.5-13.5 [facility] Comment on above: Performed By: #### C BC #### [facility] [address] [place] [address] Dr. Ildefonso Finn PLT 290 103/ul Normal 150-450 [facility] Comment on above: Performed By: #### C BC #### [facility] [address] [place] [address] Dr. Ildefonso Finn RBC 4.40 106/ul Normal 4.20-5.40 [facility] Comment on above: Performed By: #### C BC #### [facility] [address] [place] [address] Dr. Ildefonso Fnin WBC 5.3 103/ul Normal 4.0-11.0 [facility] Comment on above: Performed By: #### C BC #### [facility] [address] [place] [address] Dr. Ildefonso Finn FREE THYROXINE INDEX T7on -2021 FTI 2.56 Normal 1.30-4.50 [facility] Comment on above: Performed By: #### C BC #### [facility] [address] [place] [address] Dr. Ildefonso Finn T3U 32.0 % Normal 30.0-39.0 [facility] Comment on above: Performed By: #### C BC #### [facility] [address] [place] [address] Dr. Ildefonso Finn T4 [Mass/Vol] 8.00 ug/dL Normal 4.80-13.90 [facility] Comment on above: Performed By: #### C BC #### [facility] [address] [place] [address] Dr. Ildefonso Finn GLYCOHEMOGLOBIN A1Con 2021 ADA RECOMMENDATION SEE BELOW Normal [facility] Comment on above: Result Comment: ADA RECOMMENDED LIMIT 4.0 - 6.0 ADA THERAPEUTIC TARGET < 7.0 ACTION SUGGESTED > 7.0 Performed By: #### A 1C #### [facility] [address] [place] [address] Dr. Ildefonso Finn Glucose [Mass/Vol] 114 mg/dL Normal [facility] Comment on above: Performed By: #### A 1C #### [facility] [address] [place] [address] Dr. Ildefonso Finn HbA1c (Bld) [Mass fraction] 5.6 % Normal 4.5-6.2 [facility] Comment on above: Performed By: #### A 1C #### [facility] [address] [place] [address] Dr. Ildefonso Finn IRONon 07-02-2022 Iron [Mass/Vol] 87.0 ug/dL Normal 50.0-170.0 [facility] Comment on above: Performed By: #### I PRISCILLA #### [facility] [address] [place] [address] Dr. Ildefonso Finn LIPID PROFILEon 07-02-2022 CHOL-HDL RATIO NORM SEE BELOW Normal [facility] Comment on above: Result Comment: 3.3 - 4.4 LOW RISK 4.4 - 7.1 AVERAGE RISK 7.1 - 11.0 MODERATE RISK >11.0 HIGH RISK Performed By: #### C BC #### [facility] [address] [place] [address] Dr. Ildefonso Finn Cholesterol [Mass/Vol] 173 mg/dL Normal <=200 [facility] Comment on above: Performed By: #### C BC #### [facility] [address] [place] [address] Dr. Ildefonso Finn Cholesterol in HDL [Mass/Vol] 74 mg/dL Critically high 40-60 [facility] Comment on above: Performed By: #### C BC #### [facility] [address] [address] [address] Ildefonso Finn Cholesterol in LDL [Mass/Vol] 90.6 mg/dL Normal [facility] Comment on above: Performed By: #### C BC #### [facility] [address] [address] [address] Ildefonso Finn Cholesterol.total/Chol esterol in HDL [Mass ratio] 2.3 {ratio} Normal [facility] Comment on above: Performed By: #### C BC #### [facility] [address] [place] [address] Dr. Ildefonso Finn HDL NORMAL > or = 60 mg/dl - LO W CARDIOVASCULAR RISK <40 mg/dl - HIGH CARDIOVASCULAR RISK Normal [facility] Comment on above: Performed By: #### C BC #### [facility] [address] [place] [address] Dr. Ildefonso Finn LDL CALC NORMAL SEE BELOW Normal [facility] Comment on above: Result Comment: <100 mg/dl OPTIMAL 100 - 129 mg/dl NEAR OR ABOVE OPTIMAL 130 - 159 mg/dl BORDERLINE HIGH 160 - 189 mg/dl HIGH >190 mg/dl VERY HIGH Performed By: #### C BC #### [facility] [address] [place] [address] Dr. Ildefonso Finn Triglyceride [Mass/Vol] 42 mg/dL Normal <=150 [facility] Comment on above: Performed By: #### C BC #### [facility] [address] [place] [address] Dr. Ildefonso Finn VLDL CALC 8.4 mg/dL Normal [facility] Comment on above: Performed By: #### C BC #### [facility] [address] [place] [address] Dr. Ildefonso Finn PROF 14(COMP METB)on 022 Albumin [Mass/Vol] 3.6 g/dL Normal 3.4-5.0 [facility] Comment on above: Performed By: #### C BC #### [facility] [address] [place] [address] Dr. Ildefonso Finn Albumin/Globulin [Mass ratio] 0.8 {ratio} Normal [facility] Comment on above: Performed By: #### C BC #### [facility] [address] [place] [address] Dr. Ildefonso Finn ALP [Catalytic activity/Vol] 74 U/L Normal 46-116 [facility] Comment on above: Performed By: #### C BC #### [facility] [address] [address] [address] Ildefonso Finn ALT [Catalytic activity/Vol] 15 U/L Normal 14-59 [facility] Comment on above: Performed By: #### C BC #### [facility] [address] [place] [address] Dr. Ildefonso Finn Anion gap [Moles/Vol] 7.8 mmol/L Normal [facility] Comment on above: Performed By: #### C BC #### [facility] [address] [place] [address] Dr. Ildefonso Finn AST [Catalytic activity/Vol] 21 U/L Normal 15-37 [facility] Comment on above: Performed By: #### C BC #### [facility] [address] [place] [address] Dr. Ildefonso Finn Bilirubin [Mass/Vol] 0.4 mg/dL Normal 0.2-1.0 [facility] Comment on above: Performed By: #### C BC #### [facility] [address] [place] [address] Dr. Ildefonso Finn Calcium [Mass/Vol] 9.0 mg/dL Normal 8.5-10.1 [facility] Comment on above: Performed By: #### C BC #### [facility] [address] [place] [address] Dr. Ildefonso Finn Chloride [Moles/Vol] 103 mmol/L Normal 98-107 [facility] Comment on above: Performed By: #### C BC #### [facility] [address] [place] [address] Dr. Ildefonso Finn CO2 [Moles/Vol] 30.5 mmol/L Normal 21.0-32.0 [facility] Comment on above: Performed By: #### C BC #### [facility] [address] [place] [address] Dr. Ildefonso Finn Creatinine [Mass/Vol] 0.70 mg/dL Normal 0.55-1.02 [facility] Comment on above: Performed By: #### C BC #### [facility] [address] [place] [address] Dr. Ildefonso Finn EGFR-AF MOSOTHO >60 Normal >=60 [facility] Comment on above: Performed By: #### C BC #### [facility] [address] [place] [address] Dr. Ildefonso Finn EGFR-NON AF MOSOTHO >60 Normal >=60 [facility] Comment on above: Performed By: #### C BC #### [facility] [address] [place] [address] Dr. Ildefonso Finn Globulin (S) [Mass/Vol] 4.5 g/dL Normal [facility] Comment on above: Performed By: #### C BC #### [facility] [address] [place] [address] Dr. Ildefonso Finn Glucose [Mass/Vol] 106 mg/dL Normal 74-106 [facility] Comment on above: Performed By: #### C BC #### [facility] [address] [place] [address] Dr. Ildefonso Finn Potassium [Moles/Vol] 4.3 mmol/L Normal 3.5-5.1 [facility] Comment on above: Performed By: #### C BC #### [facility] [address] [place] [address] Dr. Ildefonso Finn Protein [Mass/Vol] 8.1 g/dL Normal 6.4-8.2 [facility] Comment on above: Performed By: #### C BC #### [facility] [address] [place] [address] Dr. Ildefonso Finn Sodium [Moles/Vol] 137 mmol/L Normal 136-145 [facility] Comment on above: Performed By: #### C BC #### [facility] [address] [place] [address] Dr. Ildefonso Finn Urea nitrogen [Mass/Vol] 15.0 mg/dL Normal 7.0-18.0 [facility] Comment on above: Performed By: #### C BC #### [facility] [address] [address] [address] Ildefonso Finn Urea nitrogen/Creatinine [Mass ratio] 21.4 mg/mg Normal [facility] Comment on above: Performed By: #### C BC #### [facility] [address] [address] [address] Ildefonso Finn TSHon 07-02-2022 TSH 2.511 uIU/mL Normal 0.358-3.74 0 [facility] Comment on above: Performed By: #### C BC #### [facility] [address] [place] [address] Dr. Ildefonso Finn CULTURE SPUTUMon 04-16-2022 CULTURE SPUTUM Culture Observations : H. parainfluenzae; beta lactamase negative Isolate 1 Haemophilus parainfluenzae Normal [facility] Comment on above: Performed By: #### S PUTCX #### [facility] [address] [place] [address] Dr. Ildefonso Finn SPUTUM GRAM STAINon 04-16-20 COMMENTS Normal [facility] Comment on above: Performed By: #### S PUTGS #### [facility] [address] [place] [address] Dr. Ildefonso Finn DIPHTHEROIDS Normal [facility] Comment on above: Performed By: #### S PUTGS #### [facility] [address] [place] [address] Dr. Ildefonso Finn EPITHELIALS <25 Normal [facility] Comment on above: Performed By: #### S PUTGS #### [facility] [address] [place] [address] Dr. Ildefonso Finn FUNGAL ELEMENTS [facility] Comment on above: Performed By: #### S PUTGS #### [facility] [address] [place] [address] Dr. Ildefonso Finn GRAM NEG BACILLI Normal [facility] Comment on above: Performed By: #### S PUTGS #### [facility] [address] [address] [address] Ildefonso Finn GRAM NEG DIPPLOCOCCI MODERATE Normal [facility] Comment on above: Performed By: #### S PUTGS #### [facility] [address] [address] [address] Ildefonso Finn GRAM POS BACILLI Normal [facility] Comment on above: Performed By: #### S PUTGS #### [facility] [address] [place] [address] Dr. Ildefonso Finn GRAM POSITIVE COCCI FEW Normal [facility] Comment on above: Performed By: #### S PUTGS #### [facility] [address] [place] [address] Dr. Ildefonso Finn WBC (Bld) [#/Vol] 10*3/uL Normal [facility] Comment on above: Performed By: #### S PUTGS #### [facility] [address] [place] [address] Dr. Ildefonso Finn Covid-19 PCR (CVDTBH)on SARS-CoV-2 (COVID-19) RNA KARLA+probe Ql (Unsp spec) Detected Critically abnormal NOT DETECTED [facility] Comment on above: Result Comment: This test is not yet approved or cleared by the [place] FDA. When there are no FDA-approved or cleared tests available, and other criteria are met, FDA can make tests available under an emergency access mechanism called an Emergency Use Authorization (EUA). The EUA for this test is supported by the Detective Sergeant of Health and Human Service's (HHS's) declaration [...] used). Performed By: #### C VDTBH #### [facility] [address] [place] [address] Dr. Ildefonso Finn Screening Mammogram, Ryan stanley [...] VERY IMPORTANT TO YOUR HEALTH. THE CURRENT [employer] [employer] GUIDELINES RECOMMENDS ANNUAL MAMMOGRAPHY BEGINNING AT AGE 40 THIS FACILITY USES A REMINDER SYSTEM TO ENSURE ALL PATIENTS RECEIVE REMINDER NOTIFICATIONS AT THE APPROPRIATE TIME BASED ON THE RECOMMENDATIONS OF THIS EXAM. 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 Accredited by the ACR and FDA. 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 Vital Signs Date Time Vital Sign Value Performing Clinician Facility 03-11-2024 15:19-0400 Body temperature 99.14 [degF] Mhd Al-Marrawi [facility] 03-11-2024 15:19-0400 Diastolic blood pressure 83 mm[Hg] [facility] 03-11-2024 15:19-0400 Heart rate 96 /min d Al-Marraw[facility] 03-11-2024 15:19-0400 Mean blood pressure 97 mm[Hg] d Al[facility]Marraw[facility] 03-11-2024 15:19-0400 Respiratory rate 20 /min d Al[facility]Marraw[facility] 03-11-2024 15:19-0400 SaO2% (BldA) [Mass fraction] 94 % d Al[facility]Marraw[facility] 03-11-2024 15:19-0400 Systolic blood pressure 124 mm[Hg] d Al[facility]Marraw[facility] 02-26-2024 14:36-0400 Diastolic blood pressure 96 mm[Hg] Lauro Simon [facility] 02-26-2024 14:36-0400 Heart rate 90 /min Lauro Simon [facility] 02-26-2024 14:36-0400 Systolic blood pressure 145 mm[Hg] Lauro Simon [facility] 02-20-2024 12:42-0400 Body height 165.1 cm Chris Baum MD Work Phone: [facility] 02-20-2024 12:42-0400 Body mass index (BMI) [Ratio] 21.63 kg/m2 Chris Baum MD Work Phone: [facility] 02-20-2024 12:42-0400 Body weight 58.97 kg Chris Baum MD Work Phone: [facility] 02-20-2024 12:42-0400 Diastolic blood pressure 81 mm[Hg] Chris Baum MD Work Phone: [facility] 02-20-2024 12:42-0400 Heart rate 83 /min Chris Baum MD Work Phone: [facility] 02-20-2024 12:42-0400 Systolic blood pressure 133 mm[Hg] Chris Baum MD Work Phone: [facility] 12-04-2023 14:31-0400 Body temperature 98.42 [degF] Muna Amaro [facility] 12-04-2023 14:31-0400 Diastolic blood pressure 72 mm[Hg] Muna Erazoboske [facility] 12-04-2023 14:31-0400 Heart rate 97 /min Muna Amaro [facility] 12-04-2023 14:31-0400 Mean blood pressure 86 mm[Hg] Muna Erazoboske [facility] 12-04-2023 14:31-0400 Respiratory rate 16 /min Muna Amaro [facility] 12-04-2023 14:31-0400 SaO2% (BldA) [Mass fraction] 95 % Muna Amaro [facility] 12-04-2023 14:31-0400 Systolic blood pressure 113 mm[Hg] Muna Amaro [facility] 11-06-2023 15:13-0400 Blood Pressure Location Lauro Simon [facility] [place] 11-06-2023 15:13-0400 Diastolic blood pressure 90 mm[Hg] Lauro Simon [facility] [place] 11-06-2023 15:13-0400 Heart rate 85 /min Lauro Simon [facility] [place] 11-06-2023 15:13-0400 Systolic blood pressure 137 mm[Hg] Lauro Simon [facility] 09-04-2023 14:44-0500 Body temperature 97.34 [degF] [facility] 09-04-2023 14:44-0500 Diastolic blood pressure 64 mm[Hg] [facility] 09-04-2023 14:44-0500 Heart rate 91 /min [facility] 09-04-2023 14:44-0500 Mean blood pressure 86 mm[Hg] [facility] 09-04-2023 14:44-0500 Respiratory rate 18 /min [facility] 09-04-2023 14:44-0500 SaO2% (BldA) [Mass fraction] 99 % [facility] 09-04-2023 14:44-0500 Systolic blood pressure 130 mm[Hg] [facility] 08-07-2023 15:51-0500 Diastolic blood pressure 78 mm[Hg] Lauro Aurora [facility] [place] 08-07-2023 15:51-0500 Heart rate 80 /min Lauro Aurora [facility] 08-07-2023 15:51-0500 Systolic blood pressure 128 mm[Hg] Lauro Simon [facility] 05-22-2023 14:00-0500 Blood Pressure Location Mhd Al[facility]Marraw[facility] 05-22-2023 14:00-0500 Body temperature 97.88 [degF] Mhd Al[facility]Marraw[facility] 05-22-2023 14:00-0500 Diastolic blood pressure 77 mm[Hg] Mhd Al[facility] 05-22-2023 14:00-0500 Heart rate 86 /min Mhd Al[facility]raw[facility] 05-22-2023 14:00-0500 Mean blood pressure 94 mm[Hg] [facility]hd [facility] 05-22-2023 14:00-0500 Respiratory rate 16 /min Mhd [facility] 05-22-2023 14:00-0500 SaO2% (BldA) [Mass fraction] 98 % [facility] 05-22-2023 14:00-0500 Systolic blood pressure 129 mm[Hg] [facility] 05-01-2023 09:00-0400 Blood Pressure Location Mhd Al[facility]Marraw[facility] 05-01-2023 09:00-0400 Body temperature 97.7 [degF] Mhd [facility] 05-01-2023 09:00-0400 Diastolic blood pressure 71 mm[Hg] Mhd [facility] 05-01-2023 09:00-0400 Heart rate 86 /min Mhd Al[facility] 05-01-2023 09:00-0400 Mean blood pressure 87 mm[Hg] Mhd Al[facility] 05-01-2023 09:00-0400 Respiratory rate 18 /min Mhd Al[facility] 05-01-2023 09:00-0400 SaO2% (BldA) [Mass fraction] 95 % [facility] 05-01-2023 09:00-0400 Systolic blood pressure 120 mm[Hg] Mhd Al[facility] 03-01-2023 10:51-0400 Blood Pressure Location Bashar [facility] 03-01-2023 10:51-0400 Diastolic blood pressure 78 mm[Hg] Bashar [facility] 03-01-2023 10:51-0400 Heart rate 77 /min Mehdi Jackson [facility] 03-01-2023 10:51-0400 SaO2% (BldA) [Mass fraction] 97 % Mehdi Jackson [facility] 03-01-2023 10:51-0400 Systolic blood pressure 136 mm[Hg] Mehdi Gallardom [facility] 02-22-2023 12:31-0400 Blood Pressure Location Lauro Mourany [facility] 02-22-2023 12:31-0400 Diastolic blood pressure 84 mm[Hg] Lauro Mourany [facility] 02-22-2023 12:31-0400 Systolic blood pressure 127 mm[Hg] Lauro Mourany [facility] 02-22-2023 12:30-0400 Blood Pressure Location Lauro Mourany [facility] 02-22-2023 12:30-0400 Body temperature 98.06 [degF] Lauro Mourany [facility] 02-22-2023 12:30-0400 Diastolic blood pressure 79 mm[Hg] Lauro Mourany [facility] 02-22-2023 12:30-0400 Heart rate 87 /min Lauro Mourany [facility] 02-22-2023 12:30-0400 Respiratory rate 16 /min Lauro Mourany [facility] 02-22-2023 12:30-0400 SaO2% (BldA) [Mass fraction] 96 % Lauro Mourany [facility] 02-22-2023 12:30-0400 Systolic blood pressure 136 mm[Hg] Lauro Simon [facility] Encounters Encounter Date Encounter Type Care Provider Facility Start: 03-28-2024 [facility]: 03-27-2024 Evaluation and management of inpatient JULIANO MAS [facility] Start: 03-27-2024 Evaluation and management of inpatient JULIANO MAS [facility] Start: 03-27-2024 End: 04-01-2024 Evaluation and management of inpatient BECKIE MONTES [facility] Start: 03-27-2024 End: 03-27-2024 ambulatory UNKNOWN PROVIDER Facility:[facility] Start: 03-25-2024 Evaluation and management of inpatient DEA [facility] Start: 03-25-2024 Evaluation and management of inpatient LAURA [facility] Start: 03-25-2024 Evaluation and management of inpatient JO ANN ANIBAL [facility] Start: 03-25-2024 Evaluation and management of inpatient LAURA [facility] Start: 03-24-2024 [facility]: 03[facility]: 03-22-2024 Evaluation and management of inpatient DEA [facility] Start: 03-22-2024 [facility] Start: 03-22-2024 Evaluation and management of inpatient RAGHEB [facility] Start: 03-21-2024 [facility] Start: 03-20-2024 [facility]: 03-18-[facility]24 Evaluation and management of inpatient RAGHEB [facility] Start: 03-17-2024 [facility]: 03-16-2024 Evaluation and management of inpatient RAGHEB ASSALY [facility] Start: 03-15-2024 Evaluation and management of [facility] Start: 03-15-2024 Evaluation and management of inpatient [facility] Start: 03-14-2024 End: 03-26-2024 Evaluation and management of inpatient ULI MATHEW [facility] Start: 03-11-2024 End: 03-11-2024 ambulatory Mhd Yaser Al-Marrawi Facility:[facility] Start: 03-11-2024 End: 03-11-2024 Patient encounter procedure Mhd Yaser [facility] Start: 03-01-2024 End: 03-01-2024 ambulatory MICHAEL BUCKLEY Not Available Start: 02-26-2024 End: 02-26-2024 ambulatory Muna Amaro Facility:[facility] Start: 02-26-2024 End: 02-26-2024 Patient encounter procedure Lauro Simon [facility] [place] Start: 02-20-2024 End: 02-20-2024 ambulatory SELF Facility:[facility] Start: 02-20-2024 End: 02-20-2024 Patient encounter procedure Chris Baum MD Work Phone: [facility] Comment on above: Multiple sclerosis ( HCC) (Primary Dx) Start: 12-04-2023 End: 12-04-2023 ambulatory Muna Amaro Facility:[facility] Start: 12-04-2023 End: 12-04-2023 Patient encounter procedure Muna Amaro [facility] Start: 11-20-2023 End: 11-20-2023 ambulatory Mhd Yaser Al-Marrawi Facility:[facility] Start: 11-20-2023 End: 11-20-2023 Patient encounter procedure Mhd Yaser [facility] Start: 11-07-2023 End: 11-07-2023 [facility] Start: 11-06-2023 End: 11-06-2023 ambulatory Lauro Moratayay Facility:[facility] Start: 11-06-2023 End: 11-06-2023 Patient encounter procedure Lauro Simon [facility] [place] Start: 09-15-2023 ambulatory Lauro Simon [facility] Start: 09-04-2023 End: 09-04-2023 ambulatory Mhd Yaser Al-Marrawi Facility:[facility] Start: 09-04-2023 End: 09-04-2023 Patient encounter procedure Mhd Yaser Al-Marrawi [facility] Start: 09-01-2023 End: 09-01-2023 ambulatory Mhd Yaser Al-Marrawi Facility:[facility] Start: 09-01-2023 End: 09-01-2023 Patient encounter procedure Mhd Yaser Al-Marrawi [facility] Start: 08-07-2023 End: 08-07-2023 ambulatory Lauro Simon Facility:[facility] Start: 08-07-2023 End: 08-07-2023 Patient encounter procedure Lauro Moratayay [facility] Start: 07-28-2023 End: 07-28-2023 ambulatory [facility] Start: 07-27-2023 End: 08-01-2023 [facility] Start: 07-27-2023 End: 07-27-2023 ambulatory RAGHEB [facility] Start: 07-26-2023 End: 07-26-2023 ambulatory RAGHEB [facility] Start: 07-25-2023 End: 07-25-2023 ambulatory RAGHEB [facility] Start: 07-24-2023 End: 07-24-2023 ambulatory RAGHEB [facility] Start: 07-21-2023 End: 07-21-2023 ambulatory RAGHEB [facility] Start: 07-20-2023 End: 07-20-2023 ambulatory RAGHEB [facility] Start: 07-19-2023 End: 07-19-2023 ambulatory [facility] Start: 07-18-2023 End: 07-18-2023 ambulatory RAGHEB [facility] Start: 07-14-2023 End: 07-14-2023 ambulatory RAGHEB [facility] Start: 07-13-2023 End: 07-13-2023 ambulatory RAGHEB [facility] Start: 07-13-2023 End: 07-13-2023 ambulatory [facility] Start: 07-12-2023 End: 07-12-2023 ambulatory RAGHEB [facility] Start: 07-07-2023 End: 07-07-2023 ambulatory RAGHEB [facility] Start: 07-06-2023 End: 07-06-2023 ambulatory RAGHEB [facility] Start: 07-05-2023 End: 07-05-2023 ambulatory RAGHEB [facility] Start: 07-04-2023 End: 07-04-2023 ambulatory RAGHEB [facility] Start: 07-03-2023 End: 07-03-2023 ambulatory RAGHEB [facility] Start: 06-30-2023 End: 06-30-2023 ambulatory RAGHEB [facility] Start: 06-29-2023 End: 06-29-2023 ambulatory RAGHEB [facility] Start: 06-28-2023 End: 06-28-2023 ambulatory RAGHEB [facility] Start: 06-27-2023 End: 06-27-2023 ambulatory [facility] Start: 06-26-2023 End: 06-26-2023 ambulatory RAGHEB [facility] Start: 06-23-2023 End: 06-23-2023 ambulatory RAGHEB [facility] Start: 06-22-2023 End: 06-22-2023 ambulatory [facility] Start: 06-21-2023 End: 06-21-2023 ambulatory RAGB [facility] Start: 06-20-2023 End: 06-20-2023 ambulatory RAGHEB [facility] Start: 06-19-2023 End: 06-19-2023 ambulatory RAGHEB [facility] Start: 06-16-2023 End: 06-16-2023 ambulatory RAGHEB [facility] Start: 06-15-2023 End: 06-15-2023 ambulatory RAGHEB [facility] Start: 06-14-2023 End: 06-14-2023 ambulatory RAGHEB [facility] Start: 06-13-2023 End: 06-13-2023 ambulatory RAGHEB [facility] Start: 05-30-2023 End: 05-30-2023 ambulatory Neftali Narayan Facility:[facility] Start: 05-30-2023 End: 05-30-2023 Patient encounter procedure Mhd Sushil Narayan [facility] Start: 05-25-2023 End: 05-25-2023 ambulatory RAGHEB [facility] Start: 05-25-2023 End: 05-25-2023 ambulatory [facility] Start: 05-22-2023 End: 05-22-2023 ambulatory Mhd Yaser Al-Marrawi Facility:[facility] Start: 05-22-2023 End: 05-22-2023 Patient encounter procedure Mhd Yaser Al-Marrawi [facility] Start: 05-22-2023 End: 05-22-2023 ambulatory Mhd Yaser Al-Marrawi Facility:[facility] Start: 05-22-2023 End: 05-22-2023 Patient encounter procedure Mhd Yaser Al-Marrawi [facility] Start: 05-02-2023 End: 05-02-2023 ambulatory [facility] Start: 05-01-2023 End: 05-01-2023 ambulatory Lauro Simon Facility:[facility] Start: 05-01-2023 End: 05-01-2023 Patient encounter procedure Lauro Simon [facility] [place] Start: 05-01-2023 End: 05-01-2023 ambulatory Mhd Yaser Al-Marrawi Facility:[facility] Start: 05-01-2023 End: 05-01-2023 Patient encounter procedure Mhd Yaser Al-Marrawi [facility] Start: 04-21-2023 End: 04-21-2023 ambulatory Lauro Simon Facility:[facility] Start: 04-11-2023 End: 04-11-2023 ambulatory Tee Lobato Facility:[facility] Start: 04-03-2023 ambulatory Lauro Simon Facilit y: [place] Start: 03-01-2023 End: 03-01-2023 Patient encounter procedure Mehdi Jackson [facility] Start: 03-01-2023 End: 03-01-2023 Preprocedural examination done Mehdi Jackson [facility] Start: 02-22-2023 End: 02-22-2023 Patient encounter procedure Lauro Simon [facility] Start: 02-20-2023 End: 03-23-2023 Pre-admission assessment Lauro Simon [facility] Start: 12-10-2022 End: 12-11-[address] BRIANNA YANEZ . Facility:[facility] Start: 09-15-2022 End: 09-15-[address] BRIANNA YANEZ . Facility:[facility] Start: 07-12-2022 End: 07-12-[address] BRIANNA YANEZ . Facility:[facility] Start: 07-06-2022 Encounter for genera l adult medical examination without abnormal findings DR BRIANNA YANEZ . [facility] Start: 07-02-2022 End: 07-03-[address] [...] DTaP,Tdap,Td Vaccine (2 - Td or Tdap) [facility] Start: 05-27-2024 ambulatory Ambulatory Facility:[facility] Start: 03-17-2024 Influenza vaccination Influenza Vacc ine (#1) [facility] Start: 01-06-2024 Screening for malign ant neoplasm of breast Mammogram Screening [facility] Start: 11-11-2023 Advance Directive Discussion Advance Directive Discussion [facility] Start: 11-11-2023 Screening for osteoporosis Bone Density Screening [facility] Start: 03-17-2023 Covid-19 Vaccine ( season) Covid-19 Vaccine () [facility] Start: 07-05-2022 Diabetes Screening Diabetes Screenin g [facility] Start: 2008 Shingrix Vaccine (1 of 2) Brower grix Vaccine (1 of 2) [facility] Start: 11-11-2003 Lipid panel Lipid Screening [facility] Start: 11-11-2003 Screening for malign ant neoplasm of colon [facility] Start: 1976 Anxiety Screening Anxiety Screening [facility] Start: 1976 Depression Screening Depression Scre ening [facility] Start: 1976 Hepatitis C screening Hepatitis C Sc reening [facility] Start: 1976 HIV screening HIV Screening [facility] Immunizations Immunization Date Immunization Notes Care Provider Vianca mcfarlane 06-27-2023 influenza virus vaccine, unspecified formulation Chris Baum MD Work Phone: [facility] 04-15-2022 influenza virus vaccine, unspecified formulation Lauro Simon [facility] [place] 05-02-2021 influenza virus vaccine, unspecified formulation Lauro Simon [facility] [place] 10-31-2020 SARS-CoV-2 (COVID-19 ) mRNA BNT-162b2 vax Lauro Moratayay [facility] Comment on above: Result Comment: 2022: [id number] 10-10-2020 SARS-CoV-2 (COVID-19 ) mRNA BNT-162b2 vax Lauro Simon [facility] Comment on above: Result Comment: 2022: [id number] 05-02-2019 influenza virus vaccine, unspecified formulation Lauro Simon [facility] 05-02-2019 influenza, injectabl e, quadrivalent, preservative free Chris Baum MD Work Phone: [facility] 05-04-2018 influenza virus vaccine, unspecified formulation Lauro Simon [facility] 05-04-2018 influenza, injectabl e, quadrivalent, preservative free Chris Baum MD Work Phone: [facility] 11-27-2017 tetanus toxoid, redu alona diphtheria toxoid, and acellular pertussis vaccine, adsorbed Lauro Simon [facility] 05-02-2017 influenza virus vaccine, unspecified formulation Lauro Simon [facility] 05-09-2016 influenza, unspecifi ed formulation Lauro Simon [facility] 05-07-2015 influenza virus vaccine, unspecified formulation Lauro Simon [facility] 05-07-2015 influenza, high dose seasonal, preservative-free Chris Baum MD Work Phone: [facility] 07-14-2014 influenza virus vaccine, unspecified formulation Lauro Simon [facility] 07-14-2014 influenza, injectable,quadrivalent , preservative free, pediatric Chris Baum MD Work Phone: [facility] 07-14-2014 pneumococcal conjuga te vaccine, 13 valent Lauro Simon [facility] 04-12-2013 influenza virus vaccine, unspecified formulation Chris Baum MD Work Phone: [facility] Work Phone: 06-15-2012 influenza virus vaccine, unspecified formulation Chrsi Baum MD Work Phone: [facility] 12-01-2011 pneumococcal polysaccharide vaccine, 23 valent Crhis Baum MD Work Phone: [facility] 10-12-2010 influenza virus vaccine, unspecified formulation Chris Baum MD Work Phone: [facility] NEGATED: Highlighted row has not occurred!04-21-2023 influenza virus vaccine, unspecified formulation Lauro Simon [facility] Payers Date Payer Category Payer Medicare [id number] 2023 Medicare [id number] 2023 Unknown [id number] 2022 Unknown [id number] 1958 Unknown [id number] 2.16.84 0.1.005373.3.579.2.593 1958 Unknown [id number] 2.16.84 0.1.141783.3.579.2.593 1958 Unknown [id number] 2.16.84 0.1.437800.3.579.2.593 1958 Unknown [id number] 2.16.84 0.1.707835.3.579.2.593 1958 Unknown [id number] 2.16.84 0.1.685366.3.579.2.593 1958 Unknown [id number] 2.16.84 0.1.981047.3.579.2.593 1958 Unknown [id number] 2.16.84 0.1.288468.3.579.2.593 1958 Unknown [id number] 2.16.84 0.1.081565.3.579.2.593 1958 Unknown [id number] 2.16.8 40.1.585970.3.579.2.727 1958 Unknown [id number] 2.16.84 0.1.760894.3.579.2.1259 1958 Unknown [id number] 2.16.8 40.1.665173.3.579.2.72 1958 Unknown [id number] 2.16.8 40.1.837961.3.579.2.72 1958 Unknown [id number] 2.16.8 40.1.104681.3.579.2.72 1958 Unknown [id number] 2.16.8 40.1.111414.3.579.2.72 1958 Unknown [id number] 2.16.8 40.1.739457.3.579.2.727 1958 Unknown [id number] 2.16.8 40.1.190451.3.579.2.727 1958 Unknown [id number] 2.16.8 40.1.084193.3.579.2.72 1958 Unknown [id number] 2.16.8 40.1.336909.3.579.2.72 1958 Unknown [id number] 2.16.8 40.1.509714.3.579.2.72 1958 Unknown [id number] 2.16.8 40.1.019361.3.579.2.727 1958 Unknown [id number] 2.16.8 40.1.647971.3.579.2.727 1958 Unknown [id number] 2.16.8 40.1.879835.3.579.2.727 1958 Unknown [id number] 2.16.8 40.1.653398.3.579.2.727 1958 Unknown [id number] 2.16.8 40.1.682170.3.579.2.727 1958 Unknown [id number] 2.16.8 40.1.965363.3.579.2.727 1958 Unknown [id number] 2.16.8 40.1.865011.3.579.2.727 1958 Unknown [id number] 2.16.8 40.1.688589.3.579.2.727 1958 Unknown [id number] 2.16.8 40.1.649003.3.579.2.7 1958 Unknown [id number] 2.16. 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 (finding) [facility] Start: 02-19-2024 End: 02-20-2024 History of Social function [facility] Start: 1960 Sex Assigned At Not on file C [facility] Functional Status Date Assessment Result Facility 08-07-2023 Functional Status N/A [facility] 03-01-2023 Functional Status No [facility] 02-22-2023 Functional Status No [facility] Clinical Notes 01-03-2022 to 04-01-2024 Chris Baum MD - 02/20/2024 12:45 PM EDTRadiologyRadiologyLaboratoryRadiologyLaboratoryLaboratoryLaboratoryLaboratory LaboratoryLaboratory Note Date & Type Note Facility 04-01-2024 Note [facility] 04-01-2024 Note [facility] 03-31-2024 Note [facility] 03-31-2024 Note [facility] 03-30-2024 Note [facility] 03-30-2024 Note [facility] 03-29-2024 Note [facility] 03-28-2024 Note [facility] 03-27-2024 Note [facility] 03-27-2024 Note [facility] 03-27-2024 Note [facility] 03-27-2024 Note [facility] 03-27-2024 Note [facility] 03-27-2024 Note [facility] 03-26-2024 Note Patient is up walkin g halls with spouse without the need for oxygen. Patient has no complaints of shortness of breath. Plan of care is ongoing. [facility] 03-26-2024 Note [facility] 03-26-2024 Note [facility] 03-26-2024 Note [facility] 03-26-2024 Note [facility] 03-26-2024 Note [facility] 03-25-2024 Note [facility] 03-25-2024 Note [facility] 03-25-2024 Note [facility] 03-25-2024 Note [facility] 03-25-2024 Note 9:30-SW sent MRI fin dings to [facility], SW to call. 10:30-SW called and [facility] IPR-await call back on accepting. OTM will continue to follow. [facility] 03-25-2024 Note [facility] 03-25-2024 Note [facility] 03-24-2024 Note [facility] 03-24-2024 Note [facility] 03-23-2024 Note [facility] 03-23-2024 Note [facility] 03-23-2024 Note [facility] 03-22-2024 Note [facility] 03-22-2024 Note [facility] 03-22-2024 Note [facility] 03-22-2024 Note [facility] 03-22-2024 Note [facility] 03-22-2024 Note [facility] 03-21-2024 Note [facility] 03-21-2024 Note [facility] 03-21-2024 Note [facility] 03-20-2024 Note [facility] 03-20-2024 Note [facility] 03-20-2024 Note [facility] 03-20-2024 Note [facility] 03-20-2024 Note [facility] 03-19-2024 Note [facility] 03-19-2024 Note [facility] 03-18-2024 Note [facility] 03-18-2024 Note [facility] 03-17-2024 Note [facility] 03-17-2024 Note [facility] 03-17-2024 Note [facility] 03-16-2024 Note [facility] 03-15-2024 Note [facility] 03-15-2024 Note [facility] 03-15-2024 Note [facility] 03-14-2024 Note [facility] 03-14-2024 Note Satisfactory for luci luation. Examination of the ThinPrep slide and cell block reveals benign bronchial cells, abundant acute inflammation, bacteria, and debris. [facility] Comment on above: Performed By: #### L [id number] ####[facility] (JACK)[place] [address] 03-11-2024 Note Oncology Progress No te Chief [...] left breast invasive lobular carcinoma, ER +90%, HI +20 to 30%, HER2/elif 1+, and Ki67 was positive 1%. 2 out of 2 sentinel lymph node with positive for macro metastatic disease. Her tumor was discussed at the [facility] tumor board patient is to obtain Oncotype [...] Lumpectomy with wire-guided localization LYMPH NODE SAMPLING: [place] lymph node(s) SPECIMEN INTEGRITY: multiple specimens (A [...] adjuvant treatment. She (more content not included)... [facility] 02-20-2024 Note HNO ID: [id number] Author: CHRIS BAUM MD Service: ? Author [...] modifying therapy. Neuro-QoL Functions (higher=better functioning) Flowsheet [facility] Office Visit from 02/20/2024 in [facility] Office Visit from 07/01/2015 in [facility] Office Visit from 05/28/2014 in [facility] Upper Extremity Domain T Score 57 47.9 56.84 Lower Extremity Domain T Score 50 48.92 55.49 Cognitive Function Domain T Score 67 -- -- Positive Affect Well Being T Score -- -- -- Ability To Participate In Social Roles T Score 56 -- -- Satisfaction With Social Roles T Score 62 -- -- Neuro-QoL Symptoms (higher=worse symptoms) Flowsheet [facility] Office Visit from 02/20/2024 in [facility] Office Visit from 07/01/2015 in [facility] Office Visit from 05/28/2014 in [facility] Sleep Domain T Score 32 38.15 40.22 [...] without mention of status migrainosus, Multiple sclerosis ([facility]), Pulmonary infiltrate, and Sciatica. She has no past medical history of Atrial fibrillation ([facility]), Cancer ([facility]), Chronic obstructive pulmonary disease (COPD) ([facility]), Chronic renal insufficiency, Congestive heart failure ([facility]), Coronary artery disease, Depression, Diabetes ([facility]), Epilepsy ([facility]), Hypertension, Obstructive sleep apnea, Steroid long-term use, Stroke ([facility]), or Substance abuse ([facility]). has a current medication list which includes the following prescription(s): letrozole, latanoprost, cholecalciferol, calcium carbonate, sodium chloride, albuterol, ipratropium bromide, and nebulizer and compressor for neb. EXAM: BP 133/81 Pulse 83 Ht 165.1 cm (5' 5 ) Wt 59 kg (130 lb) BMI 21.63 kg/m? MSPT Results Flowsheet [facility] Office Visit from 12/11/2015 in [facility] Office Visit from 07/01/2015 in [facility] Office Visit from 05/28/2014 in [facility] Processing Speed Total Number Correct -- -- [...] 5 Biceps 5 5 Triceps 5 5 Lean Coach 5 5 Dorsal interossei 5 5 Lower extremit (more content not included)... [facility] 02-20-2024 History of Present illness Narrative [...] modifying therapy. Neuro-QoL Functions (higher=better functioning) Flowsheet [facility] Office Visit from 02/20/2024 in [facility] Office Visit from 07/01/2015 in [facility] Office Visit from 05/28/2014 in [facility] Upper Extremity Domain T Score 57 47.9 56.84 Lower Extremity Domain T Score 50 48.92 55.49 Cognitive Function Domain T Score 67 -- -- Positive Affect Well Being T Score -- -- -- Ability To Participate In Social Roles T Score 56 -- -- Satisfaction With Social Roles T Score 62 -- -- Neuro-QoL Symptoms (higher=worse symptoms) Flowsheet [facility] Office Visit from 02/20/2024 in [facility] Office Visit from 07/01/2015 in [facility] Office Visit from 05/28/2014 in [facility] Sleep Domain T Score 32 38.15 40.22 [...] without mention of status migrainosus, Multiple sclerosis ([facility]), Pulmonary infiltrate, and Sciatica. She has no past medical history of Atrial fibrillation ([facility]), Cancer ([facility]), Chronic obstructive pulmonary disease (COPD) ([facility]), Chronic renal insufficiency, Congestive heart failure ([facility]), Coronary artery disease, Depression, Diabetes ([facility]), Epilepsy ([facility]), Hypertension, Obstructive sleep apnea, Steroid long-term use, Stroke ([facility]), or Substance abuse ([facility]). has a current medication list which includes the following prescription(s): letrozole, latanoprost, cholecalciferol, calcium carbonate, sodium chloride, albuterol, ipratropium bromide, and nebulizer and compressor for neb. EXAM: BP 133/81 Pulse 83 Ht 165.1 cm (5' 5 ) Wt 59 kg (130 lb) BMI 21.63 kg/m MSPT Results Flowsheet Row Office Visit from 12/11/2015 in [facility] Office Visit from 07/01/2015 in [facility] Office Visit from 05/28/2014 in [facility] Processing Speed Total Number Correct -- -- [...] 5 Biceps 5 5 Triceps 5 5 Lean Coach 5 5 Dorsal interossei 5 5 Lower [...] Normal bilaterally Finger-nose: no dysmetria; coordination intact Heel-brower: no dysmetria; coordination intact Sensory Perception: Pin [...] Ángel Zendejas MD Neuroimmunology Fellow, PGY 5 [facility] for Multiple Sclerosis Patient seen and evaluated. She has long-standing multiple sclerosis but has been clinically stable for many years, without evidence for active inflammation. Although a brain MRI could be considered now, I think it's unlikely to change our current recommendations to remain off multiple sclerosis disease modifying therapy. Chris Baum MD cc: Brianna Yanez MD, [address] [place], [place] [id number] documented in this encounter [facility] 12-04-2023 Hospital Discharge instructions Follow Up Care 12/04/2023 15:23:41 With:Sylvain RICE, BRENNAN Mello, ONC Address: When: Unknown Comments:Continue taking letrozole or Femara once daily.Continue calcium and vitamin D.Continue taking Fosamax once a week for the osteoporosis.CBC and CMP labs in 6 months and return in 6 months. 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 Donis [facility] 09-04-2023 Hospital Discharge instructions Patient Education [...] including vitamins, herbs, eye drops, creams, and ovzh-jxj-bbcajew medicines. Any medical conditions you have. How [...] Total protein: ?Premature : 4.2 7.6 g/dL. ?[place]: 4.6 7.4 g/dL. ?Infant: 6 6.7 g/dL. ?Child: 6.2 8 g/dL. Albumin: ?Premature : 3 4.2 g/dL. ?[place]: 3.5 5.4 g/dL. ?: 4.4 5.4 g/dL. [...] provider. Document Revised: 03/26/2021 Document Reviewed: 03/26/2021 [employer] Patient Education 2022 [employer]. Follow Up Care 05/22/2023 14:57:40 With:Sylvain RICE, Neftali Ling, MED, ONC Address: When: Unknown Comments:Start Actonel 35 mg once a week with full glass of water in am in upright position, again only once a week.Continue Femara once daily.Calcium 500 mg twice daily.Continue vitamin D 2000 units daily.Labs in 3 months including CBC with differential, CMP, myeloma labs.Return in 3 months. 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 Vitals WNL. Rad site brisk, no open areas. Reviewed proper skin care, pt verbalizes understanding. Pt. Denies any pain. No further concerns at this time. [facility] 06-27-2023 Note [facility] 06-27-2023 Note [facility] 06-22-2023 Note [facility] 06-22-2023 Note TETRYL BOILING TUB OPERATOR NOTE: Emeli is accompanied by Aamir. Pt has completed 02/07 fx RT to Left Breast/LN. Pt denies pain. Respirations are unlabored, O2 sat 95% RA. Pt is cleansing treatment area with antibacterial soap daily and moisturizer as directed. [facility] 05-25-2023 Note [facility] 05-25-2023 Note [facility] 05-01-2023 Hospital Discharge instructions Follow Up Care 05/01/2023 10:39:18 With:Neftali Narayan Address: [address] [phone] Business (1) When: Unknown Comments:Proceed with radiation oncology consult and adjuvant radiation once recommended by them.LFTS and Bone density scan now.Start Femara 2.5 mg once daily one week after completing the radiation to the left breast.Start calcium 500 mg one pill twice daily.Start vitamin D 2000 units daily.LFTs 4 weeks after starting Femara and RTC then. [facility] 04-25-2023 Hospital Discharge instructions Follow Up Care 04/25/2023 12:37:04 With:Neftali Narayan Address: [place] [address]- [phone] Business (1) When: Unknown Comments:The plan will need to do Oncotype DX scoreReferral to radiation oncology for evaluation for need for adjuvant radiation. Return in 2 to 3 weeks for oncotype DX results [facility] 01-03-2022 Note PROCEDURE: XR FOOT R T MIN 3 VIEWS HISTORY: Cellulitis ; acute second toe pain COMPARISON: None. FINDINGS: BONES:No fracture, acute abnormality, or significant arthropathy. SOFT TISSUES:No visible soft tissue swelling. EFFUSION:None visible. OTHER: Negative. IMPRESSION: 1. No appreciable bone or soft tissue abnormality to account for patient's symptoms. Electronically authenticated by: LUCIEN BONILLA Date: 2022-01-03 17:34 [facility] Evaluation + Plan note Future Appointments Appointment Date:03/01/2023 09:00:00 AM Scheduled Provider: Location:.MAMMOGRAM Appointment Type:MA Needle Loc (FT) Appointment Date:03/01/2023 11:00:00 AM Scheduled Provider: Location:.NUCLEAR MED Appointment Type:NM Lymphoscintigraphy (FT) Appointment Date:03/01/2023 12:00:00 PM Scheduled Provider: Location:[facility] Appointment Type:Surgery FT Appointment Date:03/01/2023 02:00:00 PM Scheduled Provider: Location:.MAMMOGRAM Appointment Type:MA Diagnostic (FT) Appointment Date:03/13/2023 03:00:00 PM Scheduled Provider:Lauro Simon MD Location:[facility] Appointment Type:GS Post Op 15 Future Scheduled TestsMA Breast Needle Loc w/ Guidance, Left 03/01/23NM Lymphoscintigraphy 8MA Mamm Diag w/CAD if perf and 3D LT 03/01/23 [facility] Evaluation + Plan note Future Appointments Appointment Date:03/22/2023 09:00:00 AM Scheduled Provider: Location:.MAMMOGRAM Appointment Type:MA Needle Loc (FT) Appointment Date:03/22/2023 10:00:00 AM Scheduled Provider: Location:.NUCLEAR MED Appointment Type:NM Lymphoscintigraphy (FT) Appointment Date:03/22/2023 01:00:00 PM Scheduled Provider: Location:[facility] Appointment Type:Surgery FT Appointment Date:03/22/2023 03:00:00 PM Scheduled Provider: Location:.MAMMOGRAM Appointment Type:MA Diagnostic (FT) Appointment Date:04/03/2023 02:00:00 PM Scheduled Provider:Lauro Simon MD Location:[facility] Appointment Type:GS Post Op 15 Future Scheduled TestsMA Breast Needle Loc w/ Guidance, Left 9//NM Lymphoscintigraphy 9//23MA Mamm Diag w/CAD if perf and 3D LT 9/6/23 [facility] Evaluation + Plan note Future Appointments Appointment Date:04/03/2023 02:00:00 PM Scheduled Provider:Lauro Simon MD Location:[facility] Appointment Type: Post Op 15 [facility] Evaluation + Plan note Future Appointments Appointment Date:05/22/2023 02:00:00 PM Scheduled Provider: Location:.ONCOLOGY Appointment Type:ONC Office Visit 30 (FT) Appointment Date:07/24/2023 03:00:00 PM Scheduled Provider:Lauro Simon MD Location:[facility] Appointment Type: Established [address] [place] [address] Evaluation + Plan note Future Appointments Appointment Date:07/24/2023 03:00:00 PM Scheduled Provider:Luaro Simon MD Location:[facility] Appointment Type:[place] [address] Appointment Date:08/14/2023 02:30:00 PM Scheduled [facility]: [facility] Type[facility] Office Visit 30 (FT) Future Scheduled TestsHepatic Function Panel 08/07/23BD Bone Density DEXA 05/23/23 [facility] Evaluation + Plan note Future Appointments Appointment Date:07/24/2023 03:00:00 PM Scheduled Provider:Lauro Simon MD Location:[facility] Appointment Type:[facility] Appointment Date:08/14/2023 02:30:00 PM Scheduled Provider: Location:.ONCOLOGY Appointment Type:ONC Office Visit 30 (FT) Future Scheduled TestsHepatic Function Panel 08/07/23 [facility] Evaluation + Plan note Future Appointments Appointment Date:08/14/2023 02:30:00 PM Scheduled Provider: Location:.ONCOLOGY Appointment Type:ONC Office Visit 30 (FT) Appointment Date:11/06/2023 03:00:00 PM Scheduled Provider:Lauro Simon MD Location:[facility] Appointment Type:[place] [address] Future Scheduled TestsHepatic Function Panel 08/07/23 [facility] Evaluation + Plan note Future Appointments Appointment Date:09/04/2023 02:30:00 PM Scheduled Provider:Neftali Narayan MD Location:FT.ONCOLOGY Appointment Type:ONC Office Visit 30 (FT) Appointment Date:11/06/2023 03:00:00 PM Scheduled Provider:Lauro Simon MD Location:[facility] Appointment Type:[facility] 15 [facility] Evaluation + Plan note Future Appointments Appointment Date:11/06/2023 03:00:00 PM Scheduled Provider:Lauro Simon MD Location:[facility] Appointment Type:[facility] 15 Appointment Date:12/04/2023 02:30:00 PM Scheduled Provider:Neftali Narayan MD Location:FT.ONCOLOGY Appointment Type:ONC Office Visit 30 (FT) Future Scheduled TestsIFE and PE, Serum 12/03/23Immunoglobs. A/E/G/M 12/03/23Free K+L Lt Chains,Qn,S 12/03/23CBC w/ Auto Diff 12/03/23Comprehensive Metabolic Panel 12/03/23 [facility] Evaluation + Plan note Future Appointments Appointment Date:12/04/2023 02:30:00 PM Scheduled Provider:Neftali Narayan MD Location:FT.ONCOLOGY Appointment Type:ONC Office Visit 30 (FT) Appointment Date:02/05/2024 03:00:00 PM Scheduled Provider:Lauro Simon MD Location:[facility] Appointment Type:[facility] Future Scheduled TestsIFE and PE, Serum 12/03/23Immunoglobs. A/E/G/M 12/03/23Free K+L Lt Chains,Qn,S 12/03/23CBC w/ Auto Diff 12/03/23Comprehensive Metabolic Panel 12/03/23 [facility] [place] Evaluation + Plan note Future Appointments Appointment Date:12/04/2023 02:30:00 PM Scheduled Provider:Neftali Narayan MD Location:FT.ONCOLOGY Appointment Type:ONC Office Visit 30 (FT) Appointment Date:02/05/2024 03:00:00 PM Scheduled Provider:Lauro Simon MD Location:[facility] Appointment Type:[facility] 15 Diagnostic Tests PendingIFE and PE, Serum 11/20/23Immunoglobs. A/E/G/M 11/20/23Free K+L Lt Chains,Qn,S 11/20/23 [facility] Evaluation + Plan note Future Appointments Appointment Date:02/05/2024 03:00:00 PM Scheduled Provider:Lauro Simon MD Location:[facility] Appointment Type:[facility] Appointment Date:03/04/2024 03:30:00 PM Scheduled Provider:Neftali Narayan MD Location:FT.ONCOLOGY Appointment Type:ONC Office Visit 30 (FT) Future Scheduled TestsComprehensive Metabolic Panel 02/26/24 [facility] Evaluation + Plan note Future Appointments Appointment Date:03/11/2024 03:00:00 PM Scheduled Provider:Neftali Narayan MD Location:FT.ONCOLOGY Appointment Type:ONC Office Visit 30 (FT) Appointment Date:05/27/2024 03:00:00 PM Scheduled Provider:Lauro Simon MD Location:[facility] Appointment Type:[address] General Surgery [place] Evaluation + Plan note Future Appointments Appointment Date:05/27/2024 03:00:00 PM Scheduled Provider:Lauro Simon MD Location:[facility] Appointment Type:[facility] Appointment Date:09/02/2024 03:20:00 PM Scheduled Provider:Neftali Narayan MD Location:FT.ONCOLOGY Appointment Type:ONC Office Visit 20 (FT) Future Scheduled TestsCBC w/ Auto Diff 09/11/24Comprehensive Metabolic Panel 09/11/24 [facility] Evaluation note Diagnosis Multiple sclerosis (HCC)- Primary Multiple sclerosis [facility] Narrative No data available for this section [facility] No data available for this section [facility] No data available for this section [facility] Summary Purpose Family History No Family [...] section and content) DATE CREATED AUTHOR 01/01/2022 [facility] dical Specialist DATE CREATED AUTHOR AUTHOR'S ORGANIZ ATION 12/23/2022 [facility] DATE CREATED AUTHOR AUTHOR'S ORGANIZ ATION 02/22/2024 [facility] DATE CREATED AUTHOR AUTHOR'S ORGANIZ ATION 02/28/2024 [facility] DATE CREATED AUTHOR AUTHOR'S ORGANIZ ATION 03/03/2024 [facility] DATE CREATED AUTHOR AUTHOR'S ORGANIZ ATION 03/05/2024 [facility] dical Specialists [facility] DATE CREATED AUTHOR AUTHOR'S ORGANIZ ATION 03/13/2024 [facility] DATE CREATED AUTHOR AUTHOR'S ORGANIZ ATION 04/03/2024 [facility] DATE CREATED AUTHOR AUTHOR'S ORGANIZ ATION 04/03/2024 [facility] Patient Care team informatio n (unrecognized section and content) Shelter Case Manager Relationship Specialty Start Date End Date Brianna Yanez MD PCP - General Family Medicine 09/09/10 Source Comments (unrecognize d section and content) In the event this informatio n is protected by the Federal Confidentiality of Alcohol and Drug Abuse Patient Records regulations: The Federal rules restrict any use of the information to criminally investigate or prosecute any alcohol or drug abuse patient.[facility] Reason for Visit (unrecogniz ed section [...] BE BASED ON THE PRIMARY CLINICAL RECORDS. [employer] [facility]. provides no warranty or guarantee of the accuracy or completeness of information in this document.
[2024-04-04 13:31] LABS: Basophils Percent Auto 0.5 % (0.2-2.0); Eosinophils Absolute Auto 0.2 10^3/uL (0.0-0.7); Eosinophils Percent Auto 1.8 % (0.9-7.0); Hematocrit 34.7 % (36.0-48.0); Hemoglobin 10.4 g/dL (12.0-16.0); Immature Granulocytes Abs Auto 0.04 10^3/uL (0.00-0.03); Immature Granulocytes Pct Auto 0.5 % (0.0-0.5); Lymphocytes Percent Auto 11.7 % (20.5-60.0); Mean Platelet Volume 9.9 fL (9.5-13.5); Monocytes Absolute Auto 0.7 10^3/uL (0.3-0.8); Monocytes Percent Auto 7.6 % (1.7-12.0); Neutrophils Absolute Auto 6.9 10^3/uL (1.4-6.5); Neutrophils Percent Auto 77.9 % (43.0-75.0); Platelet Count 359 10^3/uL (150-450); Red Blood Count 3.47 10^6/uL (4.20-5.40); Red Cell Distribution Width 15.5 % (11.0-15.0); White Blood Count 8.8 10^3/uL (4.0-11.0)
[2024-04-04 13:45] LABS: Partial Thromboplastin Time 26.8 sec (22.3-36.2); Prothrombin Time 10.6 sec (9.0-11.6)
[2024-04-04 14:48] LABS: Alanine Aminotransferase 17 U/L (14-59); Albumin Globulin Ratio 0.7; Albumin Level 3.4 g/dL (3.4-5.0); Alkaline Phosphatase 61 U/L (46-116); Anion Gap 10.4; Aspartate Amino Transferase 21 U/L (15-37); BUN Creatinine Ratio 43.5; Bilirubin Total 0.3 mg/dL (0.2-1.0); Calcium 9.5 mg/dL (8.5-10.1); Carbon Dioxide 30.7 mmol/L (21.0-32.0); Chloride 100 mmol/L (98-107); Estimated GFR (African America >60 (>=60); Estimated GFR (Non-African Ame >60 (>=60); Globulin 4.6 g/dL; Glucose 95 mg/dL (74-106); Potassium 4.1 mmol/L (3.5-5.1); Sodium 137 mmol/L (136-145)
== END 2024-04-04 12:05 | disposition home or self-care (01) ==
LOC: LAB 12:06
PROVIDERS: PCP Family Medicine; Visit Provider Family Medicine
DX: J47.9 Bronchiectasis, uncomplicated (principal); I50.30 Unspecified diastolic (congestive) heart failure; I11.0 Hypertensive heart disease with heart failure; R60.0 Localized edema
CPT/HCPCS: 36415; 80053; 83880; 85025; 85610; 85730; 93970

== ENCOUNTER 2024-04-16 12:35 | Outpatient (OUT) | payer MEDICARE, OTHER, SELFPAY ==
[2024-04-16 13:13] LABS: Hematocrit 32.9 % (36.0-48.0); Hemoglobin 10.2 g/dL (12.0-16.0); Mean Corpuscular Hemoglobin 28.9 pg (26.7-34.0); Mean Corpuscular Volume 93.2 fL (81.0-99.0); Mean Platelet Volume 9.3 fL (9.5-13.5); Platelet Count 390 10^3/uL (150-450); Red Blood Count 3.53 10^6/uL (4.20-5.40); Red Cell Distribution Width 14.9 % (11.0-15.0); White Blood Count 8.1 10^3/uL (4.0-11.0)
[2024-04-16 13:44] LABS: Lymphocytes Absolute Manual 0.64 10^3/uL (1.20-3.80); Segmented Neut Absolute Manual 6.64 10^3/uL (1.4-6.5)
[2024-04-16 13:45] LABS: Monocytes Absolute Manual 0.81 10^3/uL (0.30-0.80)
[2024-04-16 13:55] LABS: Alanine Aminotransferase 18 U/L (14-59); Albumin Globulin Ratio 0.5; Albumin Level 2.7 g/dL (3.4-5.0); Alkaline Phosphatase 64 U/L (46-116); Anion Gap 12.2; Aspartate Amino Transferase 16 U/L (15-37); BUN Creatinine Ratio 19.7; Bilirubin Total 0.3 mg/dL (0.2-1.0); Calcium 9.4 mg/dL (8.5-10.1); Carbon Dioxide 25.8 mmol/L (21.0-32.0); Chloride 98 mmol/L (98-107); Estimated GFR (African America >60 (>=60); Estimated GFR (Non-African Ame >60 (>=60); Globulin 5.7 g/dL; Glucose 104 mg/dL (74-106); Sodium 132 mmol/L (136-145); Total Protein 8.4 g/dL (6.4-8.2); Troponin I High Sensitivity 4.4 pg/mL (4.0-51.3)
== END 2024-04-16 12:36 | disposition home or self-care (01) ==
LOC: LAB 12:35
PROVIDERS: PCP Family Medicine; Visit Provider Family Medicine
DX: R07.9 Chest pain, unspecified (principal); G35 Multiple sclerosis; R53.83 Other fatigue
CPT/HCPCS: 36415; 80053; 83880; 84484; 85007; 85027

== ENCOUNTER 2024-04-24 14:00 | Outpatient (OUT) | payer MEDICARE, OTHER, SELFPAY ==
--- NOTE | 2024-04-24 14:00 | CA_ITS ---
Patient Name: MIRIAM DE PAZ MR#: [id number] : 1960 Exam Date: 04/24/2024 Ordering Doctor: DR Sabas Wagner . ECHOCARDIOGRAM REPORT PROCEDURE: CA ECHO DOPPLER COMPLETE INDICATIONS: Chest pain COMPARISON: None. DESCRIPTION: COMPLETE ECHOCARDIOGRAM Real-time transthoracic echocardiography with 2D, M-mode, spectral and color flow Doppler performed. QUALITY: Technical quality was good. LEFT VENTRICLE: Normal chamber size. Thickened septal wall. LV EF: Global left ventricular systolic function is normal; visually estimated ejection fraction is 55 to 60%. DIASTOLIC: Diastolic function is indeterminate. ATRIAL SEPTUM: There is a circumscribed, sessile mass on the left atrial side of the intra-atrial septum; differential diagnosis includes lipomatous hypertrophy versus tumor versus thrombus. Further imaging (e.g. transesophageal echocardiography, cardiac CT or cardiac MRI) is recommended LEFT ATRIUM: Mild dilatation. RIGHT ATRIUM: Normal chamber size. RIGHT VENTRICLE: Normal chamber size. Normal right ventricular systolic function. TRICUSPID VALVE: Normal mobility and thickness. Moderate regurgitation. Doppler studies reveal moderately (45-60) elevated right sided pressures. RVSP 58 mmHg MITRAL VALVE: Normal mobility and thickness. No evidence of mitral valve stenosis. There is no mitral annular calcification. Mild mitral regurgitation. AORTIC VALVE: Normal trileaflet appearance. Mildly calcified aortic valve. Normal leaflet mobility. No evidence of aortic valve stenosis. Trivial aortic regurgitation. AORTIC ROOT: Normal diameter and appearance. Ascending aorta is normal in size. PULMONIC VALVE: Normal thickness and mobility. No stenosis. Trivial regurgitation. PERICARDIUM: Trivial pericardial effusion. IVC: IVC is normal in size, does not collapse. CONCLUSION: 1. Global left ventricular systolic function is normal; visually estimated ejection fraction is 55 to 60% 2. Normal right ventricular size and systolic function 3. The left atrium is mildly dilated 4. Moderate tricuspid regurgitation 5. Moderately elevated right ventricular systolic pressure; RVSP 58 mmHg 6. Mild mitral regurgitation 7. There is a circumscribed, echodense mass seen on the left atrial side of the intra-atrial septum; differential diagnosis includes lipomatous hypertrophy versus tumor versus thrombus Further imaging (e.g. transesophageal echocardiography, cardiac CT or cardiac MRI) is recommended Adult Echocardiography Procedure Report Left Ventricle LVEDD (3.7 - 5.6 cm): 4.51 cm LVESD (2.2 - 4.0 cm): 3.74 cm LVIVS thickness (0.6 - 1.2 cm): 1.07 cm LVPW thickness (0.5 - 1.0 cm): 0.75 cm e': 0.13 m/s E - e': 4.98 LVOT Max Gradient: 2.72 mm[Hg] LVOT Area (cm2): 0.82 m/s Peak Velocity (LVOT): 0.82 m/s Mean Velocity (LVOT): 0.55 m/s LVOT Diameter 1.93 cm Left Atrium LA Volume Index (2D A2C): 41.35 ml/m2 Left Atrium Systolic Dimension: 2.88 cm Mitral Valve MV E to A Ratio: 0.90, 1.03 Right Ventricle Aorta AO Root Diam: 2.63 cm Ascending Ao Diam: 2.97 cm Aortic Valve AoV Area (Peak Abisai): 1.52 cm2, 1.52 cm2 AoV Area (VTI): 1.43 cm2, 1.43 cm2 Peak Velocity(Antegrade Flow): 1.59 m/s, 1.55 m/s Peak Gradient(Antegrade Flow): 10.10 mm[Hg], 9.56 mm[Hg] Mean Velocity(Antegrade Flow): 1.09 m/s, 1.02 m/s Mean Gradient(Antegrade Flow): 5.51 mm[Hg], 4.85 mm[Hg] Velocity Time Integral: 34.55 cm, 33.12 cm Tricuspid Valve Peak Velocity (Regurgitant Flow): 3.51 m/s, 3.55 m/s, 3.17 m/s, 3.12 m/s Pulmonic Valve Mean Gradient: 1.86 mm[Hg] Mean Velocity: 0.64 m/s Peak Velocity: 0.99 m/s, 1.04 m/s Peak Gradient: 3.92 mm[Hg], 4.36 mm[Hg] Right Atrium Right Atrium Systolic Pressure: 36.20 ml, 36.20 ml Dictated by: Jennifer Pan M.D. on 04/24/2024 at 16:09 Approved by: Jennifer Pan M.D. on 04/24/2024 at 16:16
== END 2024-04-24 14:01 | disposition home or self-care (01) ==
PROVIDERS: PCP Family Medicine; Visit Provider Family Medicine
DX: R07.9 Chest pain, unspecified (principal)
CPT/HCPCS: 87070; 93306

== ENCOUNTER 2024-06-10 14:49 | Outpatient (REF) | payer MEDICARE, OTHER, SELFPAY ==
--- OUTSIDE RECORDS SUMMARY | 2024-06-10 15:03 | XMS_ITS | CCD ---
Author Organization [facility] Team Providers Care Business Continuity Manager Name Role Phone VAIBHAVY ., DR REED [...] REED Consulting Unavailable VaibhavyBrianna Primary Care Physician Brianna Yanez MD Primary Care Provider [phone] PROVIDER, UNKNOWN Attending Unavailable PROVIDER, UNKNOWN Admitting Unavailable Neftali Narayan Admitting Unavailmichelle e Neftali Narayan Attending Unavailabl e Al-Marrawi, Mhd Yaser Attending Unavailabl e Al-Marrawi, Mhd Yaser Admitting Unavailabl e RINKES, FERNANDA E Referring Unavailable RINKES, FERNANDA E Attending Unavailable RINKES, FERNANDA E Referring Unavailable Al-Marrawi, Mhd Yaser Attending Unavailabl e Al-Marrawi, Mhd Yaser Referring Unavailabl e Al-Marrawi, Mhd Yaser Referring Unavailabl e Al-Marrawi, Mhd Yaser Admitting Unavailabl e Al-Marrawi, Mhd Yaser Attending Unavailabl e Al-Marrawi, Mhd Yaser Admitting Unavailabl e Al-Marrawi, Mhd Yaser Attending Unavailabl e Al-Marrawi, Mhd Yaser Referring Unavailabl e Bernard RICE, Brianna Calvert Primary Care Provider [phone] Al-Marrasendy, Mhd Yaser Attending Unavailabl e Al-Marrawi, Mhd Yaser Attending Unavailabl e Al-Marrawi, Mhd Yaser Admitting Unavailabl e Muna Amaro Admitting Unavailable Sondra, Muna Fuentes Attending Unavailable Al-Marrawi, Mhd Yaser Attending Unavailabl e Sondra, Muna Gina Admitting Unavailable Demchad, Muna Gina Attending Unavailable Al-Marrawi, Mhd Yaser Attending Unavailabl e Al-Marrawi, Mhd Yaser Admitting Unavailabl e Al-Marrawi, Mhd Yaser Attending Unavailabl e Al-Marrawi, Mhd Yaser Admitting Unavailabl e Al-Marrawi, Mhd Yaser Attending Unavailabl e Muna Amaro Attending Unavailable Lauro Simon. Attending Unavailable Lauro Simon Attending Unavailable Lauro Simon Attending Unavailable Lauro Simon Attending Unavailable Al-Marrawi, Mhd Yaser Attending Unavailabl e Al-Marrawi, Mhd Yaser Attending Unavailabl e Al-Marrawi, Mhd Yaser Referring Unavailabl e Al-Marrawi, Mhd Yaser Admitting Unavailabl e Lauro Simon Attending Unavailable Mckayla RICE, [facility] Unavailable Unspecified, Cardiac Surgeon - Unavailable U navailable ASSPONCHO, RAGHEB Referring Unavailable HADZIAHMETOVIC, ALANA Attending Unavaila ble ASSALY, RAGHEB Referring Unavailable YUSUF, LAURA Referring Unavailable FREDMAN, KELIN Attending Unavailable ALGHOTHANI, CRISTINEAMAD Referring Unavailable HADZIAHMETOVIC, MERSLUCIA Attending Unavaila ble YUSUF, LAURA Referring Unavailable ASSALY, RAGHEB Referring Unavailable YUSUF, LAURA Referring Unavailable PIRKL, DEA Referring Unavailable ASSALY, RAGHEB Referring Unavailable JOSE, MIRRA Referring Unavailable PIRKL, DEA Referring Unavailable OMBALLI, MOHSERVANDO Attending Unavailable ALGHOTHANI, MOHAMAD Referring Unavailable ALGHOTHANI, BÁRBARAD Attending Unavailable ALGHOTHANI, CRISTINEAMAD Attending Unavailable OMBALLI, MOHAMED Referring Unavailable FREDMAN, KELIN Attending Unavailable HADZIAHMETOVIC, MERSLUCIA Attending Unavaila ble HADZIAHMETOVIC, MERSIHA Attending Unavaila ble JOSE, MIRRA Referring Unavailable YUSUF, LAURA Referring Unavailable ANIBAL, JO ANN Referring Unavailable CHACE, YOUNGSOOK Referring Unavailable CHACE, YOUNGSOOK Referring Unavailable CHACE, YOUNGSOOK Referring Unavailable CHACE, YOUNGSOOK Referring Unavailable ASSALY, RAGHEB Referring Unavailable ASSALY, RAGHEB Referring Unavailable ASSALY, RAGHEB Referring Unavailable ASSALY, RAGHEB Referring Unavailable ASSALY, RAGHEB Referring Unavailable BUFFY, HANI Attending Unavailable OMBALLI, MOHAMED Admitting Unavailable SIMON, BECKIE T Referring Unavailable HORANI, OTIS Attending Unavailable ASSALY, RAGHEB Admitting Unavailable SAMSA, ULI Referring Unavailable ASSALY, RAGHEB Referring Unavailable CHRIS BAUM Attending Unavailable SELF Referring Unavailable BRIANNA YANEZ Primary Care Unavailable Allergies Allergy Classification Reported Allergen(s) Allergy Type Date of Onset Reaction(s) Facility (6 sources) No Known Medication Allergies; Translations: [No Known Medication Allergies] Propensity to adverse reactions (disorder) [facility] Repository Medications Current Medications Medication Drug Class(es) Dates Sig (Normalized) Sig (Original) albuterol 0.83 mg/ml inhalation solution (3 sources) beta2-Adrenergic Agonist Start: 08-13-2019 take 3 mL by inhalation three times daily as needed albuterol (PROVENTIL) 2.5 mg /3 mL (0.083 %) nebulizer solution Indications: Bronchiectasis without complication (HCC) , Chronic cough Use 3 mL via nebulizer three times daily as needed. Inhale over 5-15 minutes 120 Vial 5 08/13/2019 Active calcium carbonate 1250 mg oral tablet (5 sources) take 1 tablet by mouth once daily calcium carbonate (OS-TONY 500) 500 mg calcium (1,250 mg) tablet Take 1 tablet by mouth once daily. Active take 1 tablet by mouth in the [place] calcium carbonate (Os-Tony) 1250 (500 Ca) MG tablet Take 1 tablet by mouth in the morning. Active cholecalciferol 0.05 mg oral tablet (6 sources) Vitamin D take 1 tablet by mouth once daily cholecalciferol (VITAMIN D-3) 2,000 unit tablet Take 2,000 Units by mouth once daily. Active take 1 tablet by mouth in the [place] cholecalciferol (Vitamin D-3) 50 MCG (2000 UT) tablet Take 2,000 Units by mouth in the morning. Active furosemide 40 mg oral tablet (3 sources) Loop Diuretic Start: 04-19-2024 take 1 tablet by mouth once daily furosemide 40 mg Tab 40 mg = 1 tab(s), Oral, Daily, Refills(s) 0 Start Date: 04/19/24 Status: Ordered ipratropium bromide 0.021 mg/actuat metered dose nasal spray (3 sources) Anticholinergic Start: 07-19-2017 take 2 spray(s) nasal route twice daily Ipratropium Centerpoint (ATROVENT) 0.03 % nasal spray Indications: Chronic vasomotor rhinitis Use 2 Sprays in each nostril twice daily. for up to three(3) weeks 1 Bottle 1 07/19/2017 Active letrozole 2.5 mg oral tablet (20 sources) Aromatase Inhibitor Start: 12-04-2023 take 1 tablet by mouth once daily letrozole (FEMARA) 2.5 mg tablet Take 2.5 mg by mouth once daily. 12/04/2023 Active Start: 05-22-2023 End: 11-18-2023 take 1 tablet by mouth once daily Femara 2.5 mg Tab 2.5 mg = 1 tab(s), Oral, Daily, Do not start until 1 week after radiation is finished., X 30 day(s), # 30 tab(s), Refills(s) 5, Pharmacy: [facility]/pharmacy #[id number], 165, cm, 05/22/23 14:14:00 EST, Height/Length Dosing, 56, kg, 05/22/23 14:14:00 EST, Weight Dosing Start Date: 05/22/23 Stop Date: 11/18/23 Status: Ordered levoFLOXacin 750 mg oral tablet (14 sources) Quinolone Antimicrobial Start: 04-16-2024 levoFLOXacin (Levaquin) 750 MG tablet 04/16/2024 Active Start: 11-06-2023 levofloxacin 5 00 mg Tab 10 tab(s), 0 Refill(s), Refills(s) 0 Start Date: 11/06/23 Status: Ordered metoprolol tartrate 25 mg oral tablet (8 sources) beta-Adrenergic Linus Start: 04-09-2024 Lopres sor 25 mg oral tablet Refills(s) 0 Start Date: 04/09/24 Status: Ordered Start: 04-01-2024 End: 05-01-2024 metoprolol tartrate (Lopress or) 25 MG tablet Take 12.5 mg by mouth in the morning and 12.5 mg in the evening. 04/01/2024 05/01/2024 Active Nebulizer and Compressor For Neb magdi (3 sources) Start: 10-04-2016 Nebulizer and Compressor For Neb magdi Indications: Bronchiectasis without complication (HCC) , Chronic cough 1 Device as needed. Use as directed. 1 Device 10/04/2016 Active Start: 10-04-2016 Nebulizer and Compressor For Neb magdi Indications: Bronchiectasis without complication (HCC) , Chronic cough 1 Device as needed. Use as directed. 1 Device 0 10/04/2016 Active predniSONE (17 sources) Start: 05-01-2023 predniSONE Ref ills(s) 0 Start Date: 05/01/23 Status: Ordered risedronate [...] taking., # 12 tab(s), Refills(s) 1, Pharmacy: [facility]/pharmacy #[id number], 165, cm, 09/04/23 14:48:00 EST, Height/Length Dosing, 56.1, kg, 09/04/23 14:48:00 EST, Weight Dosing Start Date: 09/04/23 Status: Ordered Sodium Chloride (20 sources) Start: 02-22-2023 Sodium Chlorid e, Inhalation 0.9% inhalation solution 1 dose, Inhalation, Daily, Other (see comment) Start Date: 02/22/23 Status: Ordered sodium chloride 0.9 % nebulizer solution Use 3 mL via nebulizer as needed. Active Completed/Discontinued Medications Medication Drug Class(es) Dates Sig (Normalized) Sig (Original) alendronic acid 70 mg oral tablet (14 sources) Bisphosphonate Start: 01-05-2024 take 6-8 [oz_av] by mouth once daily alendronate 70 mg Tab 70 mg = 1 tab(s), Oral, q7day, with 6-8 oz plain water, at least 30 minutes before first food, beverage, or medication of the day, # 12 tab(s), Refills(s) 1, Pharmacy: [facility]/pharmacy #[id number], 165, cm, 12/04/23 14:36:00 EDT, Height/Length [...] day, # 12 tab(s), Refills(s) 1, Pharmacy: [facility]/pharmacy #[id number], 165, cm, 09/04/23 14:48:00 EST, Height/Length Dosing, 56.1, kg, 09/04/23 14:48:00 EST, Weight Dosing Start Date: 09/19/23 Status: Ordered alendronate (Fos amax) 70 MG tablet TAKE 1 TABLET BY MOUTH EVERY 7 DAYS WITH 6-8 OZ WATER 30 MINUTES BEFORE ANY FOOD DRINK OR MEDICATION Active latanoprost 0.05 mg/ml ophthalmic solution (20 sources) Prostaglandin Analog Start: 01-30-[address] Opth 0.005% Nita 1 drop(s), Eye-Both, qPM, Refill(s) 0, Other (see comment) Start Date: 01/30/23 Status: Ordered take 1 drop(s) into the eye(s) once daily at bedtime latanoprost (XALATAN) 0.005 % ophthalmic solution Use 1 Drop in both eyes daily at bedtime. Active take 1 drop(s) into the eye(s) at bedtime latanoprost (Xalatan) 0.005 % ophthalmic solution Administer 1 drop into both eyes at bedtime. Active Vitamin D 50,000 intl units (1.25 mg) oral capsule (20 sources) Start: 01-30-2023 take 1 capsule by mouth once daily Vitamin D 50,000 intl units (1.25 mg) oral capsule 50,000 International_Unit = 1 cap(s), Oral, Daily, Refills(s) 0, Prophylaxis Start Date: 01/30/23 Status: Ordered Start: 01-30-2023 take 1 capsule by mo [facility] every week Vitamin D 50,000 intl units (1.25 mg) oral capsule 50,000 International_Unit = 1 cap(s), Oral, qWeek, Refills(s) 0, Prophylaxis Start Date: 01/30/23 Status: Ordered Problems Active Problems Problem Classification Problem Date Documented Da te Episodic/Chronic Bacterial infection; unspecified site (20 sources) 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 02-22-2023 Episodic Cancer of breast (20 sources) Malignant tumor of breast ; Translations: [Malignant neoplasm of unspecified site of left female breast] Onset: 05-01-2023 02-20-2023 Chronic Cancer of breast (20 sources) Personal history of malignant neoplasm of [...] sclerosis] Onset: 08-31-2010 01-30-2023 Chronic Other aftercare (5 sources) Follow-up status; Translations: [Encounter for follow-up examination after completed treatment for malignant neoplasm] Onset: 08-07-2023 Episodic Other and ill-defined heart disease (2 sources) Other ill-defined heart diseases; Translations: [Other ill-defined heart diseases] Onset: 05-01-2024 Chronic Other bone disease and musculoskeletal deformities (3 sources) Disorder of bone; Translations: [Other specified disorders of bone density and structure, unspecified site] Onset: 09-04-2023 Episodic Other hematologic conditions (1 source) Abnormal finding on evaluation procedure; Translations: [Other specified abnormalities of plasma proteins] Onset: 09-04-2023 Episodic Other lower respiratory disease (20 sources) H/O: respiratory disease 02-24-2023 Episodic Other lower respiratory disease (2 sources) Other nonspecific abnormal finding of lung field; Translations: [Other nonspecific abnormal finding of lung field] Onset: 05-24-2023 Episodic Other lower respiratory disease (2 sources) Hemoptysis; Translations: [Hemoptysis] Onset: 03-27-2024 Episodic Other screening for suspected conditions (not mental disorders or infectious disease) (20 sources) Encounter for screening for malignant neoplasm of rectum; Translations: [Mammography abnormal] Onset: 07-12-2022 Episodic Pneumonia (except that caused by tuberculosis or sexually transmitted disease) (20 sources) Pneumonia; Translations: [Pneumonia, unspecified organism] Onset: 09-14-2016 02-22-2023 Episodic Unclassified (1 source) CONTACT W/AND (SUSP) EXPOS COVID-19; Translations: [CONTACT W/AND (SUSP) EXPOS COVID-19] Onset: 09-18-2022 Unclassified (20 sources) Body mass index 20-24 - normal [...] Onset: 01-13-2022 Episodic Other lower respiratory disease (3 sources) Radiologic infiltrate of lung ; Translations: [Other nonspecific abnormal finding of lung field] Onset: 08-31-2010 08-31-2010 Episodic Other lower respiratory disease (3 sources) Multiple nodules of lung; Translations: [Other nonspecific [...] Test Name Value Interpretation Reference Range Facility [facility] EMEL[facility]AU[facility] ([id number]) 1960 F Date Time Provider Department 06/04/24 [facility] During your visit today, we recorded the following information about you: Jp Mcclendon 06/04/2024 2:12 PM Signed INN Allergies As of Date: 06/04/2024 (No Known Allergies) Date Reviewed: 02/20/2024 Reviewed by: José Miguel Tom MA - Fully Assessed Reason for Visit: Insurance Inquiry [[id number]] Prescriptions as of 06/04/2024 - calcium carbonate (OS-TONY 500) 500 mg calcium (1,250 mg) tablet Take 1 tablet by mouth once daily. - letrozole (FEMARA) 2.5 mg tablet Take 2.5 mg by mouth once daily. - sodium chloride 0.9 % nebulizer solution Use 3 mL via nebulizer as needed. - albuterol (PROVENTIL) 2.5 mg /3 mL (0.083 %) nebulizer solution Use 3 mL via nebulizer three times daily as needed. Inhale over 5-15 minutes - Ipratropium Centerpoint (ATROVENT) 0.03 % nasal spray Use 2 Sprays in each nostril twice daily. for up to three(3) weeks - latanoprost (XALATAN) 0.005 % ophthalmic solution Use 1 Drop in both eyes daily at bedtime. - cholecalciferol (VITAMIN D-3) 2,000 unit tablet Take 2,000 Units by mouth once daily. - Nebulizer and Compressor For Neb magdi 1 Device as needed. Use as directed. Problem List As Of Date 06/04/2024 Noted Resolved Multiple sclerosis [G35] 08/31/2010 Pulmonary infiltrates [R91.8] 08/31/2010 Pulmonary nodules [R91.8] 08/31/2010 Bronchiectasis (HCC) [J47.9] 09/14/2016 Fungal pneumonia [J16.8, B49] 09/14/2016 Encounter Status:Closed by JP MCCLENDON on 06/04/24 [facility] Telephone (REFPHY) EMELI KAUFMAN ([id number]) 1960 F Date Time Provider Department 06/04/24 NO ONE (HISTORICAL) REFPHY During your visit today, we recorded the following information about you: Jj Daina 06/04/2024 1:43 PM Signed Patient: Emeli Kaufman Date of : 1960 Patient phone number: [phone] Referring Provider for the encounter: Kem Block Requesting Provider: n/a Reason for requesting visit (RFV/signs and symptoms/diagnosis): Cardiac mass (I51.89). Person calling: caregiver: Daina Return call to: self Medical Records/Insurance Card scanned into Buzz[employer]: Yes Comments: Allergies As of Date: 06/04/2024 (No Known Allergies) Date Reviewed: 02/20/2024 Reviewed by: José Miguel Tom MA - Fully Assessed Reason for Visit: External Referrals/resources [[id number]] Prescriptions as of 06/04/2024 - calcium carbonate (OS-TONY 500) 500 mg calcium (1,250 mg) tablet Take 1 tablet by mouth once daily. - letrozole (FEMARA) 2.5 mg tablet Take 2.5 mg by mouth once daily. - sodium chloride 0.9 % nebulizer solution Use 3 mL via nebulizer as needed. - albuterol (PROVENTIL) 2.5 mg /3 mL (0.083 %) nebulizer solution Use 3 mL via nebulizer three times daily as needed. Inhale over 5-15 minutes - Ipratropium Centerpoint (ATROVENT) 0.03 % nasal spray Use 2 Sprays in each nostril twice daily. for up to three(3) weeks - latanoprost (XALATAN) 0.005 % ophthalmic solution Use 1 Drop in both eyes daily at bedtime. - cholecalciferol (VITAMIN D-3) 2,000 unit tablet Take 2,000 Units by mouth once daily. - Nebulizer and Compressor For Neb magdi 1 Device as needed. Use as directed. Problem List As Of Date 06/04/2024 Noted Resolved Multiple sclerosis [G35] 08/31/2010 Pulmonary infiltrates [R91.8] 08/31/2010 Pulmonary nodules [R91.8] 08/31/2010 Bronchiectasis (HCC) [J47.9] 09/14/2016 Fungal pneumonia [J16.8, B49] 09/14/2016 Encounter Status:Closed by DAINA AQUINO on 06/04/24 Normal [facility] Follow-Upon 05-30-2024 Follow-Up Normal [facility] Ambulatory Visit Summaryon 1 07-27-2023 Ambulatory Visit Summary Ambulatory Visit Summary EMELI KAUFMAN :1960 Visit Date:05/27/2024 Ambulatory Visit Instructions Your Diagnosis Breast cancer, left Encounter for follow-up surveillance of breast cancer Personal history of malignant neoplasm of breast Your Care Team Attending Physician - Lauro Simon MD Primary Care Physician - Brianna Yanez MD This Is Your Medications List alendronate (alendronate 70 mg Tab) ergocalciferol (Vitamin D 50,000 intl units (1.25 mg) oral capsule) furosemide (furosemide 40 mg Tab) latanoprost ophthalmic (latanoprost Opth 0.005% Nita) letrozole (letrozole 2.5 mg Tab) levofloxacin (levofloxacin 500 mg Tab) metoprolol (Lopressor 25 mg oral tablet) sodium chloride (Sodium Chloride, Inhalation 0.9% inhalation solution) Procedures Performed Biopsy of bone (04/19/2024), Biopsy of lymph node (04/11/2023), Bronchoscopy (06/16/2021), Biopsy of breast, section. Discharge Vitals Heart Rate (Peripheral) 91 Blood Pressure 159/94 Height 165 cm Height 65 in Weight 56 kg Weight 123.459 lb BMI 20.57 What to do next Scheduled Follow-Up Appointments Monday 3:20 PM EST With: Sylvain RICE, Neftali Ling Where: [facility] Monday 2:40 PM EDT With: Lauro Simon MD Where: [facility] General Surgery [address], [address] [place] [address]- Medications What How Much When Why Instructions Unchanged alendronate (alendronate 70 mg Tab) 1 Tablets By Mouth Every 7 days with 6-8 oz plain water, at least 30 minutes before first food, beverage, or medication of the day Unchanged ergocalciferol (Vitamin D 50,000 intl units (1.25 mg) oral capsule) 1 Capsules By Mouth Every day Unchanged furosemide (furosemide 40 mg Tab) 1 Tablets By Mouth Every day Unchanged latanoprost ophthalmic (latanoprost Opth 0.005% Nita) 1 Drops Both eyes Once a day (in the evening) Unchanged letrozole (letrozole 2.5 mg Tab) 1 Tablets By Mouth Every day Personal history of malignant neoplasm of breast Unchanged levofloxacin (levofloxacin 500 mg Tab) 10 tab(s), 0 Refill(s) Unchanged metoprolol (Lopressor 25 mg oral tablet) Unchanged sodium chloride (Sodium Chloride, Inhalation 0.9% inhalation solution) 1 dose Inhalation Every day Allergies No Known Allergies No Known Medication Allergies Problems Ongoing - Any problem that you are currently receiving treatment for. Abnormal mammogram of left breast BMI 22.0-22.9, adult Breast cancer, left Encounter for follow-up surveillance of breast cancer Lytic bone lesions on xray Multiple sclerosis Personal history of bronchiectasis Historical - Any problem that you are no longer receiving treatment for. Bronchiectasis Patient Survey You may receive a survey via text or e-mail asking about your office visit. Please share your experience with us by completing your survey. We appreciate your feedback and thank you for choosing us for your care. Normal Escobar [facility] General Surgery Office/Clini c Noteon 05-27-2024 General Surgery Office/Clinic Note General Surgery Office/Clinic Note Chief Complaint 3 month follow up HPI Staff Emeli is a 63 y.o. female here for 3 month follow up Hx of left breast cancer s/p [place] Node biopsy of left done 04/11/2023 Denies breast changes She continues with letrozole 2.5 mg Recently hospitalized [facility] after undergoing a bronch Bone biopsy done 04/19 History of Present Illness 63-year-old female status post left breast needle localized lumpectomy left sentinel lymph node biopsy performed on the 2022 , noted to have 2 for 2 positive for metastatic lymph nodes ER/AZ positive HER2 negative invasive lobular carcinoma measuring 1.1 cm. Patient admitted an outside facility for hemoptysis. Currently following with infectious disease and pulmonology at [facility] for evaluation of chronic infections of the lung. Also found to have lytic bone lesions in the calvarium and iliac crest. Bone biopsy of this did not reveal malignancy. Most recent mammography is from March 01, 2014 and it was Physical Exam Vitals & Measurements HR: 91(Peripheral) BP: 159/94 HT: 65 in HT: 165 cm WT: 56 kg WT: 123.459 lb BMI: 20.57 Left breast exam: Incision clean dry intact and healed well no abnormalities the left breast such as nipple discharge skin retraction or peau d'orange are noted Right breast exam: Axillary exam: Right axillary exam shows small mobile soft subcentimeter lymph node. Left axillary incision clean dry intact is healed well no axillary adenopathy is noted Assessment/Plan 63-year-old female hormone positive lobular carcinoma status post left breast lumpectomy with sentinel node biopsy performed April 2023 1. Breast cancer, left (C50.912: Malignant neoplasm of unspecified site of left female breast) Follow-up 6 months Ordered: Postoperative follow-up visit, related to the original procedure 37267 2. Encounter for follow-up surveillance of breast cancer (Z08: Encounter for follow-up examination after completed treatment for malignant neoplasm) As above Ordered: Postoperative follow-up visit, related to the original procedure 61961 Personal history of malignant neoplasm of breast (Z85.3: Personal history of malignant neoplasm of breast) Portions of this record may have been created with voice recognition artificial intelligence software, specifically [employer], [employer] and or [employer]. Substitutions may have occurred due to the inherent limitations of voice recognition and artificial intelligence software. Follow-up No qualifying data available Problem List/Past Medical History Ongoing Abnormal mammogram of left breast BMI 22.0-22.9, adult Breast cancer, left Encounter for follow-up surveillance of breast cancer Lytic bone lesions on xray Multiple sclerosis Personal history of bronchiectasis Historical Bronchiectasis Procedure/Surgical History Biopsy of bone (04/19/2024), Biopsy of lymph node (04/11/2023), Bronchoscopy (06/16/2021), Biopsy of breast, section. Medications alendronate 70 mg Tab, 70 mg= 1 tab(s), Oral, q7day, 1 refills furosemide 40 mg Tab, 40 mg= 1 tab(s), Oral, Daily latanoprost Opth 0.005% Nita, 1 drop(s), Eye-Both, qPM letrozole 2.5 mg Tab, 2.5 mg= 1 tab(s), Oral, Daily, 1 refills levofloxacin 500 mg Tab Lopressor 25 mg oral tablet Sodium Chloride, Inhalation 0.9% inhalation solution, 1 dose, Inhalation, Daily Vitamin D 50,000 intl units (1.25 mg) oral capsule, 73151 International_Unit= 1 cap(s), Oral, Daily Allergies No Known Allergies No Known Medication Allergies Social History Alcohol - Denies Alcohol Use, 02/22/2023 Never., 05/27/2024 Substance Abuse - Denies Substance Abuse, 02/22/2023 Never., 05/27/2024 Tobacco - Denies Tobacco Use, 02/22/2023 Never (less than 100 in lifetime) Tobacco Use:., 05/27/2024 Family History Family history is negative Immunizations Vaccine Date Status Comments influenza virus [...] Recorded influenza virus vaccine, inactivated 07/14/2014 Recorded [facility] Comment on above: Result Comment: Elec tronically Signed By: Aurora RICE, Lauro Cast.br\Date and Time Signed: 05/27/24 15:27 EST Documentationon 05-16-2024 Documentation [id number] Jing Kaufman 1960 F Date Provider Department Center 05/16/2024 [facility] No family history on file [facility] Follow-Upon 05-02-2024 Follow-Up [facility] ANESon 05-01-[address] [facility] HPon 05-01-[address] [facility] NURSNOTEon 05-01-[address] [facility] NURSNOTE Bedside swallow stud y completed and passed. [facility] Surgical Pathology Reporton 04-29-2024 Surgical Pathology Report [address] [place] [address]- Surgical Pathology Report Collected Date/Time: 04/19/2024 09:04 EDT Pathologist: Aakash RICE PhD, Ildefonso Perez Received Date/Time: 04/19/2024 10:12 EDT Khanh RICE, Jatin Cassidy MD, Jatin Junior Surgical Pathology Report - 04/29/2024 15:04 EDT - Auth (Verified) Final Diagnosis BONE LESION, RIGHT ILIAC CREST, EXCISION: - BORDERLINE HYPERCELLULAR BONE MARROW WITH TRILINEAGE HEMATOPOIESIS. - BENIGN TRABECULAR BONE FRAGMENTS. - SCANT BENIGN SKIN TISSUE PRESENT (SEE COMMENT). Comment: Benign skin tissue is attached to trilineage hematopoietic bone marrow elements at dermal edge, suggestive of tissue contamination during the procedure. Otherwise, no evidence of metastatic disease is identified per AE1/3 and S100. Although no aberrant pathologic features are identified per CD34, CD138, CD3 and CD20, the bone marrow elements demonstrate borderline hypercellularity for age (approximately 60%), this finding is subtle and nonspecific, and this specimen is not suitable for further etiologic interpretation regarding hematopoietic process. There is a possibility that current biopsy may not sample the clinical bone lesion. Clinical correlation and proper follow-up is recommended as clinically indicated. (Electronic Signature) Ildefonso Finn MD PhD 04/29/2024 15:04 Clinical Information rt iliac lesion Pre-Op Diagnosis: rt iliac lesion Procedure: ct bone biopsy Post-Op Diagnosis: Specimen(s) Received Rt iliac lesion Gross Description Received in formalin labeled with patient name, number, and right iliac lesion is a cylindrical segment of hernandez/pink/light red bony tissue measuring 1.6 x 0.3 cm. It is entirely submitted in one cassette after Immunocal decalcification. (DC) DC:MCA Microscopic Description The use of one or more reagents in the above tests is regulated as an analyte specific reagent (ASR). The test or tests are ordered following initial H&E microscopic examination. The performance characteristics were determined by the [facility]. They have not been cleared or approved by the US Food and Drug Administration. The FDA has determined that such clearance or approval is not necessary. These tests are used for clinical purposes. They should not be regarded as investigational or for research. Appropriate positive and negative controls are performed and are acceptable. Normal [facility] Comment on above: Performed By: #### 4 [id number] #### [facility] [address] [place] [id number] Telephoneon 04-29-2024 Telephone [phone] Jing Kaufman 1960 F Date Provider Department Center 04/29/2024 RosaHoldenMikeANNETTE MEENA [facility] No family history on file Normal [facility] NM PET w/ CT Scan Skull Base to Midthighon 04-21-2024 NM PET w/ CT Scan Skull Base to Midthigh Exam Date/Time: 04/17/2024 17:30 EDT Reason for Exam: R93.0 Abnormal findings on diagnostic imaging of skull and head, not elsewhere classified Report IMPRESSION: MILD METABOLISM WITHIN MODERATELY EXTENSIVE PULMONARY OPACITIES, MILD HILAR AND MEDIASTINAL LYMPHADENOPATHY, AND BONE MARROW, NOT TYPICAL FOR MALIGNANCY, DESCRIBED. EXAM: NM PET w/ CT Scan Skull Whole Body DATE: 04/17/2024 4:00 PM CLINICAL HISTORY: R93.0 Abnormal findings on diagnostic imaging of skull and head, not elsewhere classified. COMPARISON: Outside chest CTA 04/03/2024 and cervical, thoracic, and lumbar spine MRIs 03/23/2024. TECHNIQUE: Following the administration of 12.63 millicuries of G06-Skmrkmzrkhccnqepyx (FDG), scans were obtained from above the skull through both feet on a dedicated PET CT unit. Using the [employer] operations intelligence chief\X2019\s standard software, data were reconstructed using filtered back projection with and without attenuation correction. A low dose, noncontrast CT provided attenuation correction and anatomic localization. The patient\X2019\s baseline blood glucose was 107. FINDINGS: Mild heterogeneous FDG metabolism within the bone marrow is nonspecific, but a lytic lesion within the right iliac body appears essentially hypometabolic. Mild metabolism associated with previously described pulmonary opacities, hilar and mediastinal lymphadenopathy is most consistent with a chronic infectious process. A somewhat suspicious over 3 cm mass within the lateral aspect of the superior segment of the right upper lobe on the prior chest CTA has diminished in size to less than 2 cm. There is no other abnormal hypermetabolism identified elsewhere within the head, neck, chest, abdomen or pelvis to suggest malignancy. Small pleural effusions have resolved from 03/24/2024. A few fluid density metabolic liver cysts are noted Report Ordering Provider: Neftali Narayan FINAL REPORT Dictated: 04/21/2024 10:12 am Jatin Cassidy MD Signed (Electronic Signature): 04/21/2024 10:12 am Signed by: Jatin Cassidy MD Transcribed by: MEAGAN Technologist: VICNENT Technical Comments Dose (mCi F-18 FDG): 12.6 Imaging Post Administration (mins): 50 Normal [facility] CBC w/ Auto Diffon 4 Basophils/100 WBC (Bld) 0.7 % Normal 0.0-2.0 [facility] Comment on above: Performed By: #### 2 [id number] #### [facility] [address] [place] [address] Basophils/Leukocytes Auto (Bld) [Pure # fraction] 0.0 E9/L Normal 0.0-0.2 [facility] Comment on above: Performed By: #### 2 [id number] #### [facility] [address] [place] [address] Eosinophils (Bld) [#/Vol] 0.1 E9/L Normal 0.0-0.5 [facility] Comment on above: Performed By: #### 2 [id number] #### [facility] [address] [place] [address] Eosinophils/100 WBC (Bld) 1.1 % Normal 0.0-8.0 [facility] Comment on above: Performed By: #### 2 [id number] #### [facility] [address] [place] [address] Erythrocyte distribution width (RBC) [Ratio] 16.0 % High 10.9-14.2 [facility] Comment on above: Performed By: #### 2 [id number] #### [facility] [address] [place] [address] Hematocrit (Bld) [Volume fraction] 31.6 % Low 34.0-46.0 [facility] Comment on above: Performed By: #### 2 [id number] #### [facility] [address] [place] [address] Hemoglobin (Bld) [Mass/Vol] 10.3 g/dL Low 12.0-16.0 [facility] Comment on above: Performed By: #### 2 [id number] #### [facility] [address] [place] [address] Lymphocytes (Bld) [#/Vol] 0.7 E9/L Low 1.0-4.0 [facility] Comment on above: Performed By: #### 2 [id number] #### [facility] [address] [place] [address] Lymphocytes/100 WBC (Bld) 14.2 % Normal 14.0-50.0 [facility] Comment on above: Performed By: #### 2 [id number] #### [facility] [address] [place] [address] MCH (RBC) [Entitic mass] 29.2 pg Normal 27.0-34.0 [facility] Comment on above: Performed By: #### 2 [id number] #### [facility] [address] [place] [address] MCHC (RBC) [Mass/Vol] 32.5 g/dL Normal 31.4-36.0 [facility] Comment on above: Performed By: #### 2 [id number] #### [facility] [address] [place] [address] MCV (RBC) [Entitic vol] 89.7 fL Normal 80.0-100.0 [facility] Comment on above: Performed By: #### 2 [id number] #### [facility] [address] [place] [address] Monocytes (Bld) [#/Vol] 0.5 E9/L Normal 0.2-1.0 [facility] Comment on above: Performed By: #### 2 [id number] #### [facility] [address] [place] [address] Neutrophils (Bld) [#/Vol] 3.6 E9/L Normal 2.0-7.5 [facility] Comment on above: Performed By: #### 2 [id number] #### [facility] [address] [place] [address] [place] [address] Neutrophils/100 WBC (Bld) 74.6 % Normal 36.0-75.0 [facility] Comment on above: Performed By: #### 2 [id number] #### [facility] [address] [place] [address] Platelet mean volume (Bld) [Entitic vol] 7.1 fL Normal 6.4-10.8 [facility] Comment on above: Performed By: #### 2 [id number] #### [facility] [address] [place] [address] Platelets (Bld) [#/Vol] 392.0 E9/L Normal 150.0-500.0 [facility] Comment on above: Performed By: #### 2 [id number] #### [facility] [address] [place] [address] RBC (Bld) [#/Vol] 3.5 E12/L Low 4.3-5.9 [facility] Comment on above: Performed By: #### 2 [id number] #### [facility] [address] [place] [address] WBC corrected for nucl RBC Auto (Bld) [#/Vol] 4.8 E9/L Normal 4.0-11.0 [facility] Comment on above: Performed By: #### 2 [id number] #### [facility] [address] [place] [address] COAGULATIONOrdered By: Gaston Harp on 04-19-2024 aPTT Coag (PPP) [Time] 32.7 s Normal 25.1 - 36.5 second(s) [facility] Auto Coag Comment on above: Interpretive Data: P arameter 15 days - 4 weeks 1 - 5 months 6 - 11 months 1 - 5 years 6 - 10 years 11 - 17 years PTT Mean: 35.4 (27.6-45.6) Mean: 33.5 (24.8-40.7) Mean: 32.4 (25.1-40.7) Mean: 31.6 (24.0-39.2) Mean: 31.6 (26.9-38.7) Mean: 31.0 (24.6-38.4) Pediatric Reference ranges were obtained from a study by olegario Bartholomew al. prepared from 1437 samples obtained at 7 different centers using the same coagulation reagent and instrumentation as [facility]. Currently there are no coagulation studies available worldwide for children to 14 days, and no normal ranges. Heparin therapeutic range (represented by Anti-Factor Xa activity of 0.2 - 0.4 U/mL) corresponds to PTT of 56.6 - 109.0 sec. INR Coag (PPP) [Relative time] 1.17 {INR} Invalid Interpretation Code [facility] Comment on above: Interpretive Data: I NR results are specifically intended to assess patients stabilized on long-term Anticoagulation therapy suggested INR s Less Intensive Anticoagulation 2.0 3.0 Conventional Range 3.0 4.5 PT Coag (PPP) [Time] 13.1 s High 9.4 - 1 2.5 second(s) [facility] Auto Coag Comment on above: Interpretive Data: 1 5 days - 4 weeks 1 - 5 months 6 -11 months 1 5 years 6 10 years 11 -17 years Mean: 11.2 (9.5 12.6) Mean: 11.0 (9.7 12.8) Mean: 11.0 (9.8 13.0) Mean: 11.3 (9.9 13.4) Mean: 11.7 (10.0 14.6) Mean: 11.8 (10.0 - 14.1) Pediatric Reference ranges were obtained from a study by Emmanuel Nathan et al. prepared from 1437 samples obtained at 7 different centers using the same coagulation reagent and instrumentation as [facility]. Currently there are no coagulation studies available worldwide for children to 14 days, and no normal ranges. CT Biopsy, Bone Superficialo n 04-19-2024 CT Biopsy, Bone Superficial Exam Date/Time: 04/19/2024 09:55 EDT Reason for Exam: Bx of Iliac bone lesion;Other (please specify) Report IMPRESSION: CT-GUIDED RIGHT ILIAC BONE BIOPSY. EXAM: CT Biopsy, Bone Superficial DATE: 04/19/2024 9:16 AM CLINICAL HISTORY: Bx of Iliac bone lesion COMPARISON: PET/CT 04/17/2024 and outside abdomen and pelvis CTs 03/24/2024. PROCEDURE: Informed consent was obtained. Sterile technique, local lidocaine anesthesia and CT guidance were used to place an 11-gauge needle into the right iliac body from a posterior approach. A core sample were obtained of the usual fashion. The patient tolerated the procedure without evidence of immediate complication. She was monitored in the [facility] for approximately one half hour without event, and discharged home in stable condition with usual instructions. All CT scans at this facility use dose modulation, iterative reconstruction, and/or weight based dosing when appropriate to reduce radiation dose to as low as reasonably achievable. Ordering Provider: Neftali Narayan FINAL REPORT Dictated: 04/19/2024 11:32 am Jatin Cassidy MD Signed (Electronic Signature): 04/19/2024 11:32 am Signed by: Jatin Cassidy MD Transcribed by: MEAGAN Technologist: Trenton MOON [facility] HEMATOLOGYOrdered By: SYSTEM SYSTEM on 04-19-2024 Basophils/100 WBC (Bld) 0.7 % Normal 0.0 - 2.0 % Remisol Heme Basophils/Leukocytes Auto (Bld) [Pure # fraction] 0.0 E9/L Normal 0.0 - 0.2 E9/L [facility]e Eosinophils (Bld) [#/Vol] 0.1 E9/L Normal 0.0 - 0.5 E9/L [facility] Eosinophils/100 WBC (Bld) 1.1 % Normal 0.0 - 8.0 % [facility]e Erythrocyte distribution width (RBC) [Ratio] 16.0 % High 10.9 - 14.2 % [facility] Hematocrit (Bld) [Volume fraction] 31.6 % Low 34.0 - 46.0 % [facility] Hemoglobin (Bld) [Mass/Vol] 10.3 g/dL Low 12.0 - 16.0 gm/dL [facility] Lymphocytes (Bld) [#/Vol] 0.7 E9/L Low 1.0 - 4.0 E9/L [facility] Lymphocytes/100 WBC (Bld) 14.2 % Normal 14.0 - 50.0 % [facility] MCH (RBC) [Entitic mass] 29.2 pg Normal 27.0 - 34.0 pg [facility]e MCHC (RBC) [Mass/Vol] 32.5 g/dL Normal 31.4 - 36.0 gm/dL [facility] MCV (RBC) [Entitic vol] 89.7 fL Normal 80.0 - 100.0 fL [facility] Monocytes (Bld) [#/Vol] 0.5 E9/L Normal 0.2 - 1.0 E9/L [facility] Monocytes/100 WBC (Bld) 9.4 % Normal 4.0 - 14.0 % [facility] Neutrophils (Bld) [#/Vol] 3.6 E9/L Normal 2.0 - 7.5 E9/L [facility] Neutrophils/100 WBC (Bld) 74.6 % Normal 36.0 - 75.0 % [facility] Platelet mean volume (Bld) [Entitic vol] 7.1 fL Normal 6.4 - 10.8 fL [facility] Platelets (Bld) [#/Vol] 392.0 E9/L Normal 150.0 - 500.0 E9/L [facility]e RBC (Bld) [#/Vol] 3.5 E12/L Low 4.3 - 5.9 E12/L [facility] WBC corrected for nucl RBC Auto (Bld) [#/Vol] 4.8 E9/L Normal 4.0 - 11.0 E9/L Remisol Heme PTon 04-19-2024 INR Coag (PPP) [Relative time] 1.17 {INR} Invalid Interpretation Code [facility] Comment on above: Result Comment: INR results are specifically intended to assess patients stabilized on long-term Anticoagulation therapy suggested INR?s ?Less Intensive Anticoagulation? 2.0 ? 3.0 Conventional Range 3.0 ? 4.5 Performed By: #### 2 [id number] #### [facility] [address] [place] [address] PT Coag (PPP) [Time] 13.1 second(s) High 9.4-12.5 [facility] Comment on above: Result Comment: 15 d ays - 4 weeks 1 - 5 months 6 -11 months 1 ? 5 years 6 ? 10 years 11 -17 years Mean: 11.2 (9.5 ? 12.6) Mean: 11.0 (9.7 ? 12.8) Mean: 11.0 (9.8 ? 13.0) Mean: 11.3 (9.9 ? 13.4) Mean: 11.7 (10.0 ? 14.6) Mean: 11.8 (10.0 - 14.1) Pediatric Reference ranges were obtained from a study by rosanna Bartholomew. prepared from 1437 samples obtained at 7 different centers using the same coagulation reagent and instrumentation as [facility]. Currently there are no coagulation studies available worldwide for children to 14 days, and no normal ranges. Performed By: #### 2 [id number] #### [facility] [address] [place] [address] PTTon 04-19-2024 aPTT Coag (PPP) [Time] 32.7 second(s) Normal 25.1-36.5 [facility] Comment on above: Result Comment: Para meter 15 days - 4 weeks 1 - 5 months 6 - 11 months 1 - 5 years 6 - 10 years 11 - 17 years PTT Mean: 35.4 (27.6-45.6) Mean: 33.5 (24.8-40.7) Mean: 32.4 (25.1-40.7) Mean: 31.6 (24.0-39.2) Mean: 31.6 (26.9-38.7) Mean: 31.0 (24.6-38.4) Pediatric Reference ranges were obtained from a study by rosanna Bartholomew. prepared from 1437 samples obtained at 7 different centers using the same coagulation reagent and instrumentation as [facility]. Currently there are no coagulation studies available worldwide for children to 14 days, and no normal ranges. Heparin therapeutic range (represented by Anti-Factor Xa activity of 0.2 - 0.4 U/mL) corresponds to PTT of 56.6 - 109.0 sec. Performed By: #### 2 [id number] #### [facility] [address] [place] [address] U24 Prot Electon 04-17-2024 Albumin Elph (24H U) [Mass fraction] 22.8 % Invalid Interpretation Code [facility] Comment on above: Order Comment: [facility] called and asked if gina had sent order over yet since they werent able to see the order. I went ahead and put the sample into transit for them. She will call back if they cant see the order. 04/15/2024 16:14:48 EDT [id number] Performed By: #### 1 [id number] #### [facility] [address] [place] [address] Alpha 1 globulin Elph (24H U) [Mass fraction] 6.9 % Invalid Interpretation Code [facility] Comment on above: Order Comment: [facility] called and asked if gina had sent order over yet since they werent able to see the order. I went ahead and put the sample into transit for them. She will call back if they cant see the order. 04/15/2024 16:14:48 EDT [id number] Performed By: #### 1 [id number] #### [facility] [address] [place] [address] Alpha 2 globulin Elph (24H U) [Mass fraction] 21.0 % Invalid Interpretation Code [facility] Comment on above: Order Comment: [facility] called and asked if gina had sent order over yet since they werent able to see the order. I went ahead and put the sample into transit for them. She will call back if they cant see the order. 04/15/2024 16:14:48 EDT [id number] Performed By: #### 1 [id number] #### [facility] [address] [place] [address] Beta globulin Elph (24H U) [Mass fraction] 27.8 % Invalid Interpretation Code [facility] Comment on above: Order Comment: [facility] called and asked if gina had sent order over yet since they werent able to see the order. I went ahead and put the sample into transit for them. She will call back if they cant see the order. 04/15/2024 16:14:48 EDT [id number] Performed By: #### 1 [id number] #### [facility] [address] [place] [address] Gamma globulin Elph (24H U) [Mass fraction] 21.5 % Invalid Interpretation Code [facility] Comment on above: Order Comment: [facility] called and asked if gina had sent order over yet since they werent able to see the order. I went ahead and put the sample into transit for them. She will call back if they cant see the order. 04/15/2024 16:14:48 EDT [id number] Performed By: #### 1 [id number] #### [facility] [address] [place] [address] Laboratory comment Yossi (Report) Comment Invalid Interpretation Code [facility] Comment on above: Order Comment: [facility] called and asked if gina had sent order over yet since they werent able to see the order. I went ahead and put the sample into transit for them. She will call back if they cant see the order. 04/15/2024 16:14:48 EDT [id number] Result Comment: Prot ein electrophoresis scan will follow via computer, mail, or yoghurt maker delivery. Performed at: [facility] [id number] PhD Adelfo Shannon Performed By: #### 1 [id number] #### [facility] [address] [place] [address] Protein (24H U) [Mass/Time] 130 mg/24hr Invalid Interpretation Code 30-150 [facility] Comment on above: Order Comment: [facility] called and asked if gina had sent order over yet since they werent able to see the order. I went ahead and put the sample into transit for them. She will call back if they cant see the order. 04/15/2024 16:14:48 EDT [id number] Performed By: #### 1 [id number] #### [facility] [address] [place] [address] Protein (U) [Mass/Vol] 9.6 mg/dL Invalid Interpretation Code Not Estab. [facility] Comment on above: Order Comment: [facility] called and asked if gina had sent order over yet since they werent able to see the order. I went ahead and put the sample into transit for them. She will call back if they cant see the order. 04/15/2024 16:14:48 EDT [id number] Performed By: #### 1 [id number] #### [facility] [address] [place] [address] Protein.monoclonal Elph (24H U) [Mass fraction] Not Observed Invalid Interpretation Code Not Observed [facility] Comment on above: Order Comment: [facility] called and asked if gina had sent order over yet since they werent able to see the order. I went ahead and put the sample into transit for them. She will call back if they cant see the order. 04/15/2024 16:14:48 EDT [id number] Performed By: #### 1 [id number] #### [facility] [address] [place] [address] WRITTEN AUTHORIZATIONon 10-0 Written Authorization Comment Invalid Interpretation Code [facility] Comment on above: Result Comment: Writ ten Authorization Received. Authorization received from electronic requisition 04-15-2024 Logged by Nya Burt Performed at: [address] [id number] PhD Adelfo Shannon Performed By: #### 3 [id number] #### [facility] [address] [place] [address] [place] 15-3on 04-15-2024 Cancer Ag 15-3 Qn 19.4 unit/mL Invalid Interpretation Code 0.0-25.0 [facility] Comment on above: Result Comment: [employer] Electrochemiluminescence Immunoassay (ECLIA) Values obtained with different assay methods or kits cannot be used interchangeably. Results cannot be interpreted as absolute evidence of the presence or absence of malignant disease. Performed at: [address] [id number] PhD Adelfo Shannon Performed By: #### 1 [id number] #### [facility] [address] [place] [address] CA 27 29on 04-15-2024 Cancer Ag 27-29 Qn 24.0 unit/mL Invalid Interpretation Code 0.0-38.6 [facility] Comment on above: Result Comment: [employer] Immunochemiluminometric Methodology (ICMA) Values obtained with different assay methods or kits cannot be used interchangeably. Results cannot be interpreted as absolute evidence of the presence or absence of malignant disease. Performed at: [address] [place], [place] [id number] PhD Adelfo Shannon Performed By: #### 1 [id number] #### [facility] [address] [place] [address] Free K+L Lt Chains,Qn,Son Immunoglobulin light chains.kappa.free (S) [Mass/Vol] 35.2 mg/L High 3.3-19.4 [facility] Comment on above: Performed By: #### 2 [id number] #### [facility] [address] [place] [address] Immunoglobulin light chains.kappa.free/Im munoglobulin light chains.lambda.free (S) [Mass ratio] 1.12 Invalid Interpretation Code 0.26-1.65 [facility] Comment on above: Result Comment: Perf ormed at: [address] [id number] PhD Adelfo Shannon Performed By: #### 2 [id number] #### [facility] [address] [place] [address] Immunoglobulin light chains.lambda.free [Mass/Vol] 31.5 mg/L High 5.7-26.3 [facility] Comment on above: Performed By: #### 2 [id number] #### [facility] [address] [place] [address] JULIO and PE, Serumon 04-15-20 24 Albumin [Mass/Vol] 3.0 g/dL Invalid Interpretation Code 2.9-4.4 [facility] Comment on above: Performed By: #### 1 [id number] #### [facility] [address] [place] [address] Albumin/Globulin [Mass ratio] 0.8 {ratio} Invalid Interpretation Code 0.7-1.7 [facility] Comment on above: Performed By: #### 1 [id number] #### [facility] [address] [place] [address] Alpha 1 globulin Elph [Mass/Vol] 0.5 g/dL High 0.0-0.4 [facility] Comment on above: Performed By: #### 1 [id number] #### [facility] [address] [place] [address] Alpha 2 globulin Elph [Mass/Vol] 0.9 g/dL Invalid Interpretation Code 0.4-1.0 [facility] Comment on above: Performed By: #### 1 [id number] #### [facility] [address] [place] [address] Beta globulin Elph [Mass/Vol] 1.2 g/dL Invalid Interpretation Code 0.7-1.3 [facility] Comment on above: Performed By: #### 1 [id number] #### [facility] [address] [place] [address] Gamma globulin Elph [Mass/Vol] 1.4 g/dL Invalid Interpretation Code 0.4-1.8 [facility] Comment on above: Performed By: #### 1 [id number] #### [facility] [address] [place] [address] Globulin (S) [Mass/Vol] 4.0 g/dL High 2.2-3.9 [facility] Comment on above: Performed By: #### 1 [id number] #### [facility] [address] [place] [address] IgA [Mass/Vol] 533 mg/dL High 87-352 [facility] Comment on above: Performed By: #### 1 [id number] #### [facility] [address] [place] [address] IgG [Mass/Vol] 1396 mg/dL Invalid Interpretation Code [id number] [facility] Comment on above: Performed By: #### 1 [id number] #### [facility] [address] [place] [address] IgM [Mass/Vol] 114 mg/dL Invalid Interpretation Code 26-217 [facility] Comment on above: Performed By: #### 1 [id number] #### [facility] [address] [place] [address] Interpretation IEP [Interp] Comment Invalid Interpretation Code [facility] Comment on above: Result Comment: No m onoclonality detected. Performed By: #### 1 [id number] #### [facility] [address] [place] [address] Laboratory comment Yossi (Report) Comment Invalid Interpretation Code [facility] Comment on above: Result Comment: Prot ein electrophoresis scan will follow via computer, mail, or yoghurt maker delivery. Performed at: [address] [id number] PhD Adelfo Shannon Performed By: #### 1 [id number] #### [facility] [address] [place] [address] Protein [Mass/Vol] 7.0 g/dL Invalid Interpretation Code 6.0-8.5 [facility] Comment on above: Performed By: #### 1 [id number] #### [facility] [address] [place] [address] Protein.monoclonal Elph [Mass/Vol] Not Observed Invalid Interpretation Code Not Observed [facility] Comment on above: Performed By: #### 1 [id number] #### [facility] [address] [place] [address] IgE, Quanton 04-15-2023 IgE Qn 24 International_Unit/mL Invalid Interpretation Code 6-495 [facility] Comment on above: Result Comment: Perf ormed at: [address] [id number] MD José Miguel Shipman Performed By: #### 1 [id number] #### [facility] [address] [place] [address] Urine Vol/Per Ref Labon 03-19 Hrs Will Ref Lab 24 hour(s) Invalid Interpretation Code [facility] Comment on above: Order Comment: Order added by Discern Expert Performed By: #### 9 [id number] #### [facility] [address] [place] [address] Specimen volume Unsp time (U) 1350 mL Invalid Interpretation Code [facility] Comment on above: Order Comment: Order added by Discern Expert Performed By: #### 9 [id number] #### [facility] [address] [place] [address] Lab Miscellaneous-LCon 04-13 Lab Miscellaneous COMMENT Invalid Interpretation Code [facility] Comment on above: Order Comment: 24 hr urine TV-1350 ML Result Comment: Test Ordered: 200780 Free K+L Lt Chains,Qn,Ur Free [place] Lt Chains,Ur 89.13 [H ] mg/L BN Reference Range: 1.17-86.46 Free Lambda Lt Chains,Ur 10.17 mg/L BN Reference Range: 0.27-15.21 [place]/Lambda Ratio,U 8.76 BN Reference Range: 1.83-14.26 Performed at: [address] [id number] PhD Adelfo Shannon Performed By: #### 1 [id number] #### [facility] [address] [place] [address] Lab Miscellaneous-LCon 04-11 Test Code 314227 Invalid Interpretation Code [facility] Comment on above: Order Comment: 24 hr urine TV-1350 ML Performed By: #### 1 [id number] #### [facility] [address] [place] [address] Lab Miscellaneous-LCOrdered By: Estela Harris on 04-11-2024 Test Name FLC 24hr UR Invalid Interpretation Code [facility] Comment on above: Order Comment: 24 hr urine TV-1350 ML Performed By: #### 1 [id number] #### [facility] [address] [place] [address] Reference Laboratory Testing Ordered By: Estela Harris on 04-11-2024 Test Code [id number] 1 Invalid Interpretation Code [facility] Ambulatory Visit Summaryon 0 04-09-2024 Ambulatory Visit Summary Ambulatory Visit Summary ZANDRA EMELI M :1960 Visit Date:04/09/2024 Ambulatory Visit Instructions Your Diagnosis Breast cancer, left Your Care Team Attending Physician - Sylvain RICE, Neftali Ling Primary Care Physician - Brianna Yanez MD This Is Your Medications List alendronate (alendronate 70 mg Tab) ergocalciferol (Vitamin D 50,000 intl units (1.25 mg) oral capsule) latanoprost ophthalmic (latanoprost Opth 0.005% Nita) letrozole (letrozole 2.5 mg Tab) levofloxacin (levofloxacin 500 mg Tab) metoprolol (Lopressor 25 mg oral tablet) predniSONE sodium chloride (Sodium Chloride, Inhalation 0.9% inhalation solution) Procedures Performed Biopsy of lymph node (04/11/2023), Bronchoscopy (06/16/2021), Biopsy of breast, section. Discharge Vitals Temperature (Oral) 36.4 ?C Heart Rate (Peripheral) 93 Respiratory Rate 16 Blood Pressure 127/77 Height 165 cm Weight 54.3 kg BMI 19.94 What to do next Scheduled Follow-Up Appointments Monday 3:00 PM EST With: Aurora RICE, Lauro Toro Where: [facility] General Surgery [address], [address] [place] [address]- Medications What How Much When Why Instructions Unchanged alendronate (alendronate 70 mg Tab) 1 Tablets By Mouth Every 7 days with 6-8 oz plain water, at least 30 minutes before first food, beverage, or medication of the day Unchanged ergocalciferol (Vitamin D 50,000 intl units (1.25 mg) oral capsule) 1 Capsules By Mouth Every week Unchanged latanoprost ophthalmic (latanoprost Opth 0.005% Nita) 1 Drops Both eyes Once a day (in the evening) Unchanged letrozole (letrozole 2.5 mg Tab) 1 Tablets By Mouth Every day Personal history of malignant neoplasm of breast Unchanged levofloxacin (levofloxacin 500 mg Tab) 10 tab(s), 0 Refill(s) Unchanged metoprolol (Lopressor 25 mg oral tablet) Unchanged predniSONE Unchanged sodium chloride (Sodium Chloride, Inhalation 0.9% inhalation solution) 1 dose Inhalation Every day Allergies No Known Allergies No Known Medication Allergies Problems Ongoing - Any problem that you are currently receiving treatment for. Abnormal mammogram of left breast BMI 22.0-22.9, adult Breast cancer, left Encounter for follow-up surveillance of breast cancer Multiple sclerosis Personal history of bronchiectasis Historical - Any problem that you are no longer receiving treatment for. Bronchiectasis Patient Survey You may receive a survey via text or e-mail asking about your office visit. Please share your experience with us by completing your survey. We appreciate your feedback and thank you for choosing us for your care. Normal [facility] CBC w/ Auto Diffon 4 Basophils/100 WBC (Bld) 0.4 % Normal 0.0-2.0 [facility] Comment on above: Performed By: #### 2 [id number] #### [facility] [address] [place] [address] Basophils/Leukocytes Auto (Bld) [Pure # fraction] 0.0 E9/L Normal 0.0-0.2 [facility] Comment on above: Performed By: #### 2 [id number] #### [facility] [address] [place] [address] Eosinophils (Bld) [#/Vol] 0.0 E9/L Normal 0.0-0.5 [facility] Comment on above: Performed By: #### 2 [id number] #### [facility] [address] [place] [address] Eosinophils/100 WBC (Bld) 0.2 % Normal 0.0-8.0 [facility] Comment on above: Performed By: #### 2 [id number] #### [facility] [address] [place] [address] Erythrocyte distribution width (RBC) [Ratio] 15.7 % High 10.9-14.2 [facility] Comment on above: Performed By: #### 2 [id number] #### [facility] [address] [place] [address] Hematocrit (Bld) [Volume fraction] 32.0 % Low 34.0-46.0 [facility] Comment on above: Performed By: #### 2 [id number] #### [facility] [address] [place] [address] Hemoglobin (Bld) [Mass/Vol] 10.7 g/dL Low 12.0-16.0 [facility] Comment on above: Performed By: #### 2 [id number] #### [facility] [address] [place] [address] Lymphocytes (Bld) [#/Vol] 0.5 E9/L Low 1.0-4.0 [facility] Comment on above: Performed By: #### 2 [id number] #### [facility] [address] [place] [address] Lymphocytes/100 WBC (Bld) 5.2 % Low 14.0-50.0 [facility] Comment on above: Performed By: #### 2 [id number] #### [facility] [address] [place] [address] MCH (RBC) [Entitic mass] 30.7 pg Normal 27.0-34.0 [facility] Comment on above: Performed By: #### 2 [id number] #### [facility] [address] [place] [address] MCHC (RBC) [Mass/Vol] 33.3 g/dL Normal 31.4-36.0 [facility] Comment on above: Performed By: #### 2 [id number] #### [facility] [address] [place] [address] MCV (RBC) [Entitic vol] 92.2 fL Normal 80.0-100.0 [facility] Comment on above: Performed By: #### 2 [id number] #### [facility] [address] [place] [address] Monocytes (Bld) [#/Vol] 1.0 E9/L Normal 0.2-1.0 [facility] Comment on above: Performed By: #### 2 [id number] #### [facility] [address] [place] [address] Neutrophils (Bld) [#/Vol] 8.6 E9/L High 2.0-7.5 [facility] Comment on above: Performed By: #### 2 [id number] #### [facility] [address] [place] [address] Neutrophils/100 WBC (Bld) 84.0 % High 36.0-75.0 [facility] Comment on above: Performed By: #### 2 [id number] #### [facility] [address] [place] [address] Platelet mean volume (Bld) [Entitic vol] 8.5 fL Normal 6.4-10.8 [facility] Comment on above: Performed By: #### 2 [id number] #### [facility] [address] [place] [address] Platelets (Bld) [#/Vol] 310.0 E9/L Normal 150.0-500.0 [facility] Comment on above: Performed By: #### 2 [id number] #### [facility] [address] [place] [address] RBC (Bld) [#/Vol] 3.5 E12/L Low 4.3-5.9 [facility] Comment on above: Performed By: #### 2 [id number] #### [facility] [address] [place] [address] WBC corrected for nucl RBC Auto (Bld) [#/Vol] 10.2 E9/L Normal 4.0-11.0 [facility] Comment on above: Performed By: #### 2 [id number] #### [facility] [address] [place] [address] CHEMISTRYOrdered By: SYSTEM SYSTEM on 04-09-2024 Albumin [Mass/Vol] 4.0 g/dL Normal 3.3 - 5.0 gm/dL [facility] Albumin/Globulin [Mass ratio] 1.0 {ratio} Low 1.1 - 2.2 [facility] ALP [Catalytic activity/Vol] 56 [iU]/d Normal 21 - 98 Int._Unit/L [facility] ALT No additional P-5'-P [Catalytic activity/Vol] 8 [iU]/d Normal 6 - 46 Int._Unit/L [facility] Anion gap [Moles/Vol] 12 mmol/L Normal 6 - 16 mEq/L [facility] AST [Catalytic activity/Vol] 13 [iU]/d Normal 5 - 43 Int._Unit/L [facility] Bilirubin [Mass/Vol] 0.5 mg/dL Normal 0.0 - 1 .1 mg/dL [facility] Calcium [Mass/Vol] 9.1 mg/dL Normal 8.9 - 11. 1 mg/dL [facility] Chloride [Moles/Vol] 103 mmol/L Normal 101 - 1 11 mmol/L [facility] CO2 [Moles/Vol] 25 mmol/L Normal 21 - 31 mmol/L [facility] Creatinine [Mass/Vol] 0.5 mg/dL Normal 0.5 - 1.3 mg/dL [facility] eGFR 104 mL/min/1.73 m2 Normal >=59mL/mi n/ 1.73 m2 [facility] Globulin (S) [Mass/Vol] 4.0 g/dL Normal 1.4 - 4.0 gm/dL [facility] Glucose [Mass/Vol] 97 mg/dL Normal 55 - 199 mg/dL [facility] Potassium [Moles/Vol] 4.2 mmol/L Normal 3.5 - 5.3 mmol/L [facility] Protein [Mass/Vol] 8.0 g/dL High 6.0 - 7.8 gm/dL [facility] Sodium [Moles/Vol] 136 mmol/L Normal 135 - 145 mmol/L [facility] Urea nitrogen [Mass/Vol] 20 mg/dL Normal 5 - 21 mg/dL [facility] Urea nitrogen/Creatinine [Mass ratio] 40 mg/mg High 10 - 20 [facility] CMPon 04-09-2024 Albumin [Mass/Vol] 4.0 g/dL Normal 3.3-5.0 [facility] Comment on above: Performed By: #### 2 [id number] #### [facility] [address] [place] [address] Albumin/Globulin (S) [Mass conc ratio] 1.0 Low 1.1-2.2 [facility] Comment on above: Performed By: #### 2 [id number] #### [facility] [address] [place] [address] ALP [Catalytic activity/Vol] 56 Int._Unit/L Normal 21-98 [facility] Comment on above: Performed By: #### 2 [id number] #### [facility] [address] [place] [address] ALT No additional P-5'-P [Catalytic activity/Vol] 8 Int._Unit/L Normal 6-46 [facility] Comment on above: Performed By: #### 2 [id number] #### [facility] [address] [place] [address] Anion gap [Moles/Vol] 12 mmol/L Normal 6-16 [facility] Comment on above: Performed By: #### 2 [id number] #### [facility] [address] [place] [address] AST [Catalytic activity/Vol] 13 Int._Unit/L Normal 5-43 [facility] Comment on above: Performed By: #### 2 [id number] #### [facility] [address] [place] [address] Bilirubin [Mass/Vol] 0.5 mg/dL Normal 0.0-1.1 [facility] Comment on above: Performed By: #### 2 [id number] #### [facility] [address] [place] [address] Calcium [Mass/Vol] 9.1 mg/dL Normal 8.9-11.1 [facility] Comment on above: Performed By: #### 2 [id number] #### [facility] [address] [place] [address] Chloride [Moles/Vol] 103 mmol/L Normal 101-111 [facility] Comment on above: Performed By: #### 2 [id number] #### [facility] [address] [place] [address] CO2 [Moles/Vol] 25 mmol/L Normal 21-31 [facility] Comment on above: Performed By: #### 2 [id number] #### [facility] [address] [place] [address] Creatinine [Mass/Vol] 0.5 mg/dL Normal 0.5-1.3 [facility] Comment on above: Performed By: #### 2 [id number] #### [facility] [address] [place] [address] Globulin (S) [Mass/Vol] 4.0 g/dL Normal 1.4-4.0 [facility] Comment on above: Performed By: #### 2 [id number] #### [facility] [address] [place] [address] Glucose [Mass/Vol] 97 mg/dL Normal 55-199 [facility] Comment on above: Performed By: #### 2 [id number] #### [facility] [address] [place] [address] Potassium [Moles/Vol] 4.2 mmol/L Normal 3.5-5.3 [facility] Comment on above: Performed By: #### 2 [id number] #### [facility] [address] [place] [address] Protein [Mass/Vol] 8.0 g/dL High 6.0-7.8 [facility] Comment on above: Performed By: #### 2 [id number] #### [facility] [address] [place] [address] Sodium [Moles/Vol] 136 mmol/L Normal 135-145 [facility] Comment on above: Performed By: #### 2 [id number] #### [facility] [address] [place] [address] Urea nitrogen [Mass/Vol] 20 mg/dL Normal 5-21 [facility] Comment on above: Performed By: #### 2 [id number] #### [facility] [address] [place] [address] Urea nitrogen/Creatinine [Mass ratio] 40 No Units High 10-20 [facility] Comment on above: Performed By: #### 2 [id number] #### [facility] [address] [place] [address] HEMATOLOGYOrdered By: SYSTEM SYSTEM on 04-09-2024 Basophils/100 WBC (Bld) 0.4 % Normal 0.0 - 2.0 % [facility] Basophils/Leukocytes Auto (Bld) [Pure # fraction] 0.0 E9/L Normal 0.0 - 0.2 E9/L [facility] Eosinophils (Bld) [#/Vol] 0.0 E9/L Normal 0.0 - 0.5 E9/L [facility] Eosinophils/100 WBC (Bld) 0.2 % Normal 0.0 - 8.0 % [facility] Erythrocyte distribution width (RBC) [Ratio] 15.7 % High 10.9 - 14.2 % [facility] Hematocrit (Bld) [Volume fraction] 32.0 % Low 34.0 - 46.0 % [facility] Hemoglobin (Bld) [Mass/Vol] 10.7 g/dL Low 12.0 - 16.0 gm/dL [facility] Lymphocytes (Bld) [#/Vol] 0.5 E9/L Low 1.0 - 4.0 E9/L [facility] Lymphocytes/100 WBC (Bld) 5.2 % Low 14.0 - 50.0 % [facility] MCH (RBC) [Entitic mass] 30.7 pg Normal 27.0 - 34.0 pg [facility] MCHC (RBC) [Mass/Vol] 33.3 g/dL Normal 31.4 - 36.0 gm/dL [facility] MCV (RBC) [Entitic vol] 92.2 fL Normal 80.0 - 100.0 fL [facility] Monocytes (Bld) [#/Vol] 1.0 E9/L Normal 0.2 - 1.0 E9/L [facility] Monocytes/100 WBC (Bld) 10.2 % Normal 4.0 - 14.0 % [facility] Neutrophils (Bld) [#/Vol] 8.6 E9/L High 2.0 - 7.5 E9/L [facility] Neutrophils/100 WBC (Bld) 84.0 % High 36.0 - 75.0 % [facility] Platelet mean volume (Bld) [Entitic vol] 8.5 fL Normal 6.4 - 10.8 fL [facility] Platelets (Bld) [#/Vol] 310.0 E9/L Normal 150.0 - 500.0 E9/L [facility] RBC (Bld) [#/Vol] 3.5 E12/L Low 4.3 - 5.9 E12/L [facility] WBC corrected for nucl RBC Auto (Bld) [#/Vol] 10.2 E9/L Normal 4.0 - 11.0 E9/L [facility] eGFRon 04-09-2024 eGFR 104 mL/min/1.73 m2 Normal >=59 [facility] Comment on above: Performed By: #### 1 [id number] #### [facility] [address] [place] [address] 36on 04-02-2024 36 No one answered the phone call. Normal [facility] Telephoneon 04-02-2024 Telephone Normal [facility] 30on 04-01-2024 30 Normal [facility] BASIC METABOLIC PANELon 03-17 Anion gap [Moles/Vol] 13 mmol/L Normal 7-20 [facility] Comment on above: Performed By: #### L [id number] ####[facility] (BEAKER)[address] [facility] [place] [address] Calcium [Mass/Vol] 9.3 mg/dL Normal 8.6-10.3 [facility] Comment on above: Performed By: #### L [id number] ####[facility] (BEAKER)[address] [facility] [place] [address] Chloride [Moles/Vol] 103 mmol/L Normal 98-107 [facility] Comment on above: Performed By: #### L [id number] ####[facility] (BEAKER)[address] [facility] [place] [address] CO2 [Moles/Vol] 28 mmol/L Normal 21-31 [facility] Comment on above: Performed By: #### L [id number] ####[facility] (BEAKER)[address] [facility] [place] [address] Creatinine [Mass/Vol] 0.52 mg/dL Low 0.60-1.20 [facility] Comment on above: Performed By: #### L [id number] ####[facility] (BEAKER)[address] [place] [address] GLOMERULAR FILTRATION RATE ML/MIN/1.73 SQ M.PREDICTED 103.0 mL/min/1.73m*2 Normal >60.0 [facility] Comment on above: Result Comment: The [facility]???s estimated glomerular filtration rate (eGFR) will no [...] of individuals. Performed By: #### L [id number] ####[facility] ([facility])[address] [place] [address] Glucose [Mass/Vol] 84 mg/dL Normal 70-100 [facility] Comment on above: Performed By: #### L [id number] ####[facility] ([facility])[address] [place] [address] Potassium [Moles/Vol] 3.8 mmol/L Normal 3.5-5.1 [facility] Comment on above: Performed By: #### L [id number] ####[facility] ([facility])[address] [place] [address] Sodium [Moles/Vol] 140 mmol/L Normal 136-145 [facility] Comment on above: Performed By: #### L [id number] ####[facility] ([facility])[address] [place] [address] Urea nitrogen [Mass/Vol] 34 mg/dL High 7-25 [facility] Comment on above: Performed By: #### L [id number] ####[facility] ([facility])[address] [place] [address] UREA NITROGEN/CREATININE (MASS RATIO) IN SER/PLAS 65.4 Normal [facility] Comment on above: Performed By: #### L [id number] ####[facility] [place] [address] CBC WITH AUTO DIFFERENTIALon 04-01-2024 Basophils (Bld) [#/Vol] 0.04 10*3/uL Normal 0.00-0.20 [facility] Comment on above: Performed By: #### L [id number] ####[facility] ([facility])[address] [place] [address] Basophils/100 WBC (Bld) 0.8 % Normal 0.0-1.0 [facility] Comment on above: Performed By: #### L [id number] ####[facility] ([facility])[address] [place] [address] Eosinophils (Bld) [#/Vol] 0.17 10*3/uL Normal 0.00-0.50 [facility] Comment on above: Performed By: #### L [id number] ####[facility] ([facility])[address] [place] [address] Eosinophils/100 WBC (Bld) 3.4 % Normal 0.0-6.0 [facility] Comment on above: Performed By: #### L [id number] ####[facility] ([facility])[address] [place] [address] Erythrocyte distribution width (RBC) [Ratio] 15.7 % High 11.5-15.0 [facility] Comment on above: Performed By: #### L [id number] ####[facility] ([facility])[address] [place] [address] ERYTHROCYTE MEAN CORPUSCULAR HEMOGLOBIN CONCENTRATION (G/DL) BY AUTOMATED 30.8 g/dL Low 32.0-35.0 [facility] Comment on above: Performed By: #### L [id number] ####[facility] ([facility])[address] [place] [address] Hematocrit (Bld) [Volume fraction] 31.8 % Low 36.0-48.0 [facility] Comment on above: Performed By: #### L [id number] ####[facility] (BEAKER)[address] [place] [address] Hemoglobin (Bld) [Mass/Vol] 9.8 g/dL Low 12.0-15.0 [facility] Comment on above: Performed By: #### L [id number] ####[facility] (BEAKER)[address] [place] [address] Immature granulocytes (Bld) [#/Vol] 0.04 10*3/uL Normal 0.00-0.20 [facility] Comment on above: Performed By: #### L [id number] ####[facility] (BEAKER)[address] [place] [address] Immature granulocytes/100 WBC (Bld) 0.8 % Normal 0.0-1.0 [facility] Comment on above: Performed By: #### L [id number] ####[facility] [place] [address] Lymphocytes (Bld) [#/Vol] 1.49 10*3/uL Normal 1.20-4.00 [facility] Comment on above: Performed By: #### L [id number] ####[facility] (BEAKER)[address] [place] [address] Lymphocytes/100 WBC (Bld) 30.2 % Normal 20.0-45.0 [facility] Comment on above: Performed By: #### L [id number] ####[facility] (BEAKER)[address] [place] [address] MCH (RBC) [Entitic mass] 29.6 pg Normal 27.0-33.0 [facility] Comment on above: Performed By: #### L [id number] ####[facility] (BEAKER)[address] [place] [address] MCV (RBC) [Entitic vol] 96.1 fL Normal 82.0-98.0 [facility] Comment on above: Performed By: #### L [id number] ####[facility] (BEAKER)[address] [place] [address] Monocytes (Bld) [#/Vol] 0.46 10*3/uL Normal 0.10-1.00 [facility] Comment on above: Performed By: #### L [id number] ####[facility] (BEAKER)[address] [address] Monocytes/100 WBC (Bld) 9.3 % Normal 5.0-12.0 [facility] Comment on above: Performed By: #### L [id number] ####[facility] (BEAKER)[address] [place] [address] Neutrophils (Bld) [#/Vol] 2.74 10*3/uL Normal 1.60-7.60 [facility] Comment on above: Performed By: #### L [id number] ####[facility] (BEAKER)[address] [place] [address] Neutrophils/100 WBC (Bld) 55.5 % Normal 40.0-72.0 [facility] Comment on above: Performed By: #### L [id number] ####[facility] [place] [address] NRBC (PER 100 WBCS) BY AUTOMATED COUNT 0.0 % Normal 0 [facility] Comment on above: Performed By: #### L [id number] ####[facility] (BEAKER)[address] [place] [address] PLATELETS (10*3/UL) IN BLOOD AUTOMATED COUNT 393 10*3/uL Normal 150-400 [facility] Comment on above: Performed By: #### L [id number] ####[facility] (BEAKER)[address] [place] [address] RBC (Bld) [#/Vol] 3.31 10*6/uL Low 3.80-5.00 [facility] Comment on above: Performed By: #### L [id number] ####[facility] (BEAKER)[address] [place] [address] WBC (Bld) [#/Vol] 4.94 10*3/uL Normal 4.00-10.60 [facility] Comment on above: Performed By: #### L [id number] ####[facility] [place] [address] CONSULTon 04-01-2024 CONSULT Normal [facility] DSon 04-01-2024 DS Normal [facility] MAGNESIUMon 04-01-2024 Magnesium [Mass/Vol] 1.9 mg/dL Normal 1.9-2.7 [facility] Comment on above: Performed By: #### L [id number] ####[facility] [place] [address] PHOSPHORUSon 04-01-2024 Magnesium [Mass/Vol] 3.1 mg/dL Normal 2.5-5.0 [facility] Comment on above: Performed By: #### L [id number] ####[facility] [place] [address] BASIC METABOLIC PANELon 03-17 Anion gap [Moles/Vol] 12 mmol/L Normal 7-20 [facility] Comment on above: Performed By: #### L [id number] ####[facility] (BEAKER)[address] [place] [address] Calcium [Mass/Vol] 9.1 mg/dL Normal 8.6-10.3 [facility] Comment on above: Performed By: #### L [id number] ####[facility] (BEAKER)[address] [place] [address] Chloride [Moles/Vol] 102 mmol/L Normal 98-107 [facility] Comment on above: Performed By: #### L [id number] ####[facility] (BEAKER)[address] [place] [address] CO2 [Moles/Vol] 28 mmol/L Normal 21-31 [facility] Comment on above: Performed By: #### L [id number] ####[facility] (BEAKER)[address] [place] [address] Creatinine [Mass/Vol] 0.52 mg/dL Low 0.60-1.20 [facility] Comment on above: Performed By: #### L [id number] ####[facility] ([facility])[address] [place] [address] GLOMERULAR FILTRATION RATE ML/MIN/1.73 SQ M.PREDICTED 103.0 mL/min/1.73m*2 Normal >60.0 [facility] Comment on above: Result Comment: The [facility]???s estimated glomerular filtration rate (eGFR) will no [...] of individuals. Performed By: #### L [id number] ####[facility] ([facility])[address] [place] [address] Glucose [Mass/Vol] 103 mg/dL High 70-100 [facility] Comment on above: Performed By: #### L [id number] ####[facility] ([facility])[address] [place] [address] Potassium [Moles/Vol] 4.0 mmol/L Normal 3.5-5.1 [facility] Comment on above: Performed By: #### L [id number] ####[facility] ([facility])[address] [place] [address] Sodium [Moles/Vol] 138 mmol/L Normal 136-145 [facility] Comment on above: Performed By: #### L [id number] ####[facility] ([facility])[address] [place] [address] Urea nitrogen [Mass/Vol] 28 mg/dL High 7-25 [facility] Comment on above: Performed By: #### L [id number] ####[facility] [place] [address] UREA NITROGEN/CREATININE (MASS RATIO) IN SER/PLAS 53.8 Normal [facility] Comment on above: Performed By: #### L [id number] ####[facility] ([facility])[address] [place] [address] CBC WITH AUTO DIFFERENTIALon 03-31-2024 Basophils (Bld) [#/Vol] 0.05 10*3/uL Normal 0.00-0.20 [facility] Comment on above: Performed By: #### L [id number] ####[facility] ([facility])[address] [place] [address] Basophils/100 WBC (Bld) 0.8 % Normal 0.0-1.0 [facility] Comment on above: Performed By: #### L [id number] ####[facility] ([facility])[address] [place] [address] Eosinophils (Bld) [#/Vol] 0.16 10*3/uL Normal 0.00-0.50 [facility] Comment on above: Performed By: #### L [id number] ####[facility] ([facility])[address] [place] [address] Eosinophils/100 WBC (Bld) 2.7 % Normal 0.0-6.0 [facility] Comment on above: Performed By: #### L [id number] ####[facility] ([facility])[address] [place] [address] Erythrocyte distribution width (RBC) [Ratio] 15.4 % High 11.5-15.0 [facility] Comment on above: Performed By: #### L [id number] ####[facility] [place] [address] ERYTHROCYTE MEAN CORPUSCULAR HEMOGLOBIN CONCENTRATION (G/DL) BY AUTOMATED 31.4 g/dL Low 32.0-35.0 [facility] Comment on above: Performed By: #### L [id number] ####[facility] (BEAKER)[address] [place] [address] Hematocrit (Bld) [Volume fraction] 30.6 % Low 36.0-48.0 [facility] Comment on above: Performed By: #### L [id number] ####[facility] (BEAKER)[address] [place] [address] Hemoglobin (Bld) [Mass/Vol] 9.6 g/dL Low 12.0-15.0 [facility] Comment on above: Performed By: #### L [id number] ####[facility] (BEAKER)[address] [place] [address] Immature granulocytes (Bld) [#/Vol] 0.03 10*3/uL Normal 0.00-0.20 [facility] Comment on above: Performed By: #### L [id number] ####[facility] (BEAKER)[address] [place] [address] Immature granulocytes/100 WBC (Bld) 0.5 % Normal 0.0-1.0 [facility] Comment on above: Performed By: #### L [id number] ####[facility] (BEAKER)[address] [place] [address] Lymphocytes (Bld) [#/Vol] 1.18 10*3/uL Low 1.20-4.00 [facility] Comment on above: Performed By: #### L [id number] ####[facility] (BEAKER)[address] [place] [address] Lymphocytes/100 WBC (Bld) 20.0 % Normal 20.0-45.0 [facility] Comment on above: Performed By: #### L [id number] ####[facility] (BEAKER)[address] [place] [address] MCH (RBC) [Entitic mass] 29.6 pg Normal 27.0-33.0 [facility] Comment on above: Performed By: #### L [id number] ####[facility] (BEAKER)[address] [place] [address] MCV (RBC) [Entitic vol] 94.4 fL Normal 82.0-98.0 [facility] Comment on above: Performed By: #### L [id number] ####[facility] (BEAKER)[address] [place] [address] Monocytes (Bld) [#/Vol] 0.61 10*3/uL Normal 0.10-1.00 [facility] Comment on above: Performed By: #### L [id number] ####[facility] (BEAKER)[address] [place] [address] Monocytes/100 WBC (Bld) 10.4 % Normal 5.0-12.0 [facility] Comment on above: Performed By: #### L [id number] ####[facility] (BEAKER)[address] [place] [address] Neutrophils (Bld) [#/Vol] 3.86 10*3/uL Normal 1.60-7.60 [facility] Comment on above: Performed By: #### L [id number] ####[facility] (BEAKER)[address] [place] [address] Neutrophils/100 WBC (Bld) 65.6 % Normal 40.0-72.0 [facility] Comment on above: Performed By: #### L [id number] ####[facility] (BEAKER)[address] [place] [address] NRBC (PER 100 WBCS) BY AUTOMATED COUNT 0.0 % Normal 0 [facility] Comment on above: Performed By: #### L [id number] ####[facility] (BEAKER)[address] [place] [address] PLATELETS (10*3/UL) IN BLOOD AUTOMATED COUNT 373 10*3/uL Normal 150-400 [facility] Comment on above: Performed By: #### L [id number] ####[facility] (BEAKER)[address] [place] [address] RBC (Bld) [#/Vol] 3.24 10*6/uL Low 3.80-5.00 [facility] Comment on above: Performed By: #### L [id number] ####[facility] ([facility])[address] [place] [address] WBC (Bld) [#/Vol] 5.89 10*3/uL Normal 4.00-10.60 [facility] Comment on above: Performed By: #### L [id number] ####[facility] ([facility])[address] [place] [address] MAGNESIUMon 03-31-2024 Magnesium [Mass/Vol] 1.9 mg/dL Normal 1.9-2.7 [facility] Comment on above: Performed By: #### L [id number] ####[facility] ([facility])[address] [place] [address] Magnesium [Mass/Vol] 1.8 mg/dL Low 1.9-2.7 [facility] Comment on above: Performed By: #### L [id number] ####[facility] ([facility])[address] [place] [address] NURSNOTEon 03-31-2024 NURSNOTE Normal [facility] NURSNOTE Normal [facility] PHOSPHORUSon 03-31-2024 Magnesium [Mass/Vol] 3.2 mg/dL Normal 2.5-5.0 [facility] Comment on above: Performed By: #### L [id number] ####[facility] ([facility])[address] [place] [address] 30on 03-30-2024 30 Normal [facility] BASIC METABOLIC PANELon 03-17 Anion gap [Moles/Vol] 14 mmol/L Normal 7-20 [facility] Comment on above: Performed By: #### L [id number] ####[facility] ([facility])[address] [place] [address] Calcium [Mass/Vol] 9.2 mg/dL Normal 8.6-10.3 [facility] Comment on above: Performed By: #### L [id number] ####[facility] (BEAKER)[address] [place] [address] Chloride [Moles/Vol] 101 mmol/L Normal 98-107 [facility] Comment on above: Performed By: #### L [id number] ####[facility] (BEAKER)[address] [place] [address] CO2 [Moles/Vol] 27 mmol/L Normal 21-31 [facility] Comment on above: Performed By: #### L [id number] ####[facility] [place] [address] Creatinine [Mass/Vol] 0.44 mg/dL Low 0.60-1.20 [facility] Comment on above: Performed By: #### L [id number] ####[facility] ([facility])[address] [place] [address] GLOMERULAR FILTRATION RATE ML/MIN/1.73 SQ M.PREDICTED 107.3 mL/min/1.73m*2 Normal >60.0 [facility] Comment on above: Result Comment: The [facility]???s estimated glomerular filtration rate (eGFR) will no [...] of individuals. Performed By: #### L [id number] ####[facility] [place] [address] Glucose [Mass/Vol] 103 mg/dL High 70-100 [facility] Comment on above: Performed By: #### L [id number] ####[facility] [place] [address] Potassium [Moles/Vol] 3.8 mmol/L Normal 3.5-5.1 [facility] Comment on above: Performed By: #### L [id number] ####[facility] (BEAKER)[address] [place] [address] Sodium [Moles/Vol] 138 mmol/L Normal 136-145 [facility] Comment on above: Performed By: #### L [id number] ####[facility] [place] [address] Urea nitrogen [Mass/Vol] 15 mg/dL Normal 7-25 [facility] Comment on above: Performed By: #### L [id number] ####[facility] [place] [address] UREA NITROGEN/CREATININE (MASS RATIO) IN SER/PLAS 34.1 Normal [facility] Comment on above: Performed By: #### L [id number] ####[facility] [place] [address] CBC WITH AUTO DIFFERENTIALon 03-30-2024 Basophils (Bld) [#/Vol] 0.03 10*3/uL Normal 0.00-0.20 [facility] Comment on above: Performed By: #### L [id number] ####[facility] (BEAKER)[address] [place] [address] Basophils/100 WBC (Bld) 0.4 % Normal 0.0-1.0 [facility] Comment on above: Performed By: #### L [id number] ####[facility] (BEAKER)[address] [place] [address] Eosinophils (Bld) [#/Vol] 0.03 10*3/uL Normal 0.00-0.50 [facility] Comment on above: Performed By: #### L [id number] ####[facility] (BEAKER)[address] [place] [address] Eosinophils/100 WBC (Bld) 0.4 % Normal 0.0-6.0 [facility] Comment on above: Performed By: #### L [id number] ####[facility] [place] [address] Erythrocyte distribution width (RBC) [Ratio] 14.6 % Normal 11.5-15.0 [facility] Comment on above: Performed By: #### L [id number] ####[facility] ([facility])[address] [place] [address] ERYTHROCYTE MEAN CORPUSCULAR HEMOGLOBIN CONCENTRATION (G/DL) BY AUTOMATED 32.4 g/dL Normal 32.0-35.0 [facility] Comment on above: Performed By: #### L [id number] ####[facility] ([facility])[address] [place] [address] Hematocrit (Bld) [Volume fraction] 29.6 % Low 36.0-48.0 [facility] Comment on above: Performed By: #### L [id number] ####[facility] ([facility])[address] [place] [address] Hemoglobin (Bld) [Mass/Vol] 9.6 g/dL Low 12.0-15.0 [facility] Comment on above: Performed By: #### L [id number] ####[facility] ([facility])[address] [place] [address] Immature granulocytes (Bld) [#/Vol] 0.04 10*3/uL Normal 0.00-0.20 [facility] Comment on above: Performed By: #### L [id number] ####[facility] ([facility])[address] [place] [address] Immature granulocytes/100 WBC (Bld) 0.5 % Normal 0.0-1.0 [facility] Comment on above: Performed By: #### L [id number] ####[facility] ([facility])[address] [place] [address] Lymphocytes (Bld) [#/Vol] 1.16 10*3/uL Low 1.20-4.00 [facility] Comment on above: Performed By: #### L [id number] ####[facility] [place] [address] Lymphocytes/100 WBC (Bld) 14.4 % Low 20.0-45.0 [facility] Comment on above: Performed By: #### L [id number] ####[facility] [place] [address] MCH (RBC) [Entitic mass] 30.1 pg Normal 27.0-33.0 [facility] Comment on above: Performed By: #### L [id number] ####[facility] [place] [address] MCV (RBC) [Entitic vol] 92.8 fL Normal 82.0-98.0 [facility] Comment on above: Performed By: #### L [id number] ####[facility] [place] [address] Monocytes (Bld) [#/Vol] 0.83 10*3/uL Normal 0.10-1.00 [facility] Comment on above: Performed By: #### L [id number] ####[facility] (BEAKER)[address] [place] [address] Monocytes/100 WBC (Bld) 10.3 % Normal 5.0-12.0 [facility] Comment on above: Performed By: #### L [id number] ####[facility] (BEAKER)[address] [place] [address] Neutrophils (Bld) [#/Vol] 5.97 10*3/uL Normal 1.60-7.60 [facility] Comment on above: Performed By: #### L [id number] ####[facility] (BEAKER)[address] [place] [address] Neutrophils/100 WBC (Bld) 74.0 % High 40.0-72.0 [facility] Comment on above: Performed By: #### L [id number] ####[facility] (BEAKER)[address] [place] [address] NRBC (PER 100 WBCS) BY AUTOMATED COUNT 0.0 % Normal 0 [facility] Comment on above: Performed By: #### L [id number] ####[facility] (BEAKER)[address] [place] [address] PLATELETS (10*3/UL) IN BLOOD AUTOMATED COUNT 394 10*3/uL Normal 150-400 [facility] Comment on above: Performed By: #### L [id number] ####[facility] (BEAKER)[address] [place] [address] RBC (Bld) [#/Vol] 3.19 10*6/uL Low 3.80-5.00 [facility] Comment on above: Performed By: #### L [id number] ####[facility] (BEAKER)[address] [place] [address] WBC (Bld) [#/Vol] 8.06 10*3/uL Normal 4.00-10.60 [facility] Comment on above: Performed By: #### L [id number] ####[facility] (BEAKER)[address] [place] [address] HEMOGLOBIN AND HEMATOCRIT, B LOODon 03-30-2024 Hematocrit (Bld) [Volume fraction] 29.9 % Low 36.0-48.0 [facility] Comment on above: Performed By: #### L [id number] ####[facility] (BEAKER)[address] [place] [address] Hemoglobin (Bld) [Mass/Vol] 9.7 g/dL Low 12.0-15.0 [facility] Comment on above: Performed By: #### L [id number] ####[facility] (BEAKER)[address] [place] [address] MAGNESIUMon 03-30-2024 Magnesium [Mass/Vol] 2.1 mg/dL Normal 1.9-2.7 [facility] Comment on above: Performed By: #### L [id number] ####[facility] (BEAKER)[address] [place] [address] PHOSPHORUSon 03-30-2024 Magnesium [Mass/Vol] 3.4 mg/dL Normal 2.5-5.0 [facility] Comment on above: Performed By: #### L [id number] ####[facility] [place] [address] BASIC METABOLIC PANELon 09- Anion gap [Moles/Vol] 16 mmol/L Normal 7-20 [facility] Comment on above: Performed By: #### L [id number] ####[facility] [place] [address] Calcium [Mass/Vol] 9.5 mg/dL Normal 8.6-10.3 [facility] Comment on above: Performed By: #### L [id number] ####[facility] [place] [address] Chloride [Moles/Vol] 101 mmol/L Normal 98-107 [facility] Comment on above: Performed By: #### L [id number] ####[facility] [place] [address] CO2 [Moles/Vol] 26 mmol/L Normal 21-31 [facility] Comment on above: Performed By: #### L [id number] ####[facility] [place] [address] Creatinine [Mass/Vol] 0.48 mg/dL Low 0.60-1.20 [facility] Comment on above: Performed By: #### L [id number] ####[facility] [place] [address] GLOMERULAR FILTRATION RATE ML/MIN/1.73 SQ M.PREDICTED 105.0 mL/min/1.73m*2 Normal >60.0 [facility] Comment on above: Result Comment: The [facility]???s estimated glomerular filtration rate (eGFR) will no [...] of individuals. Performed By: #### L [id number] ####[facility] ([facility])[address] [place] [address] Glucose [Mass/Vol] 183 mg/dL High 70-100 [facility] Comment on above: Performed By: #### L [id number] ####[facility] ([facility])[address] [place] [address] Potassium [Moles/Vol] 3.9 mmol/L Normal 3.5-5.1 [facility] Comment on above: Performed By: #### L [id number] ####[facility] ([facility])[address] [place] [address] Sodium [Moles/Vol] 139 mmol/L Normal 136-145 [facility] Comment on above: Performed By: #### L [id number] ####[facility] ([facility])[address] [place] [address] Urea nitrogen [Mass/Vol] 13 mg/dL Normal 7-25 [facility] Comment on above: Performed By: #### L [id number] ####[facility] ([facility])[address] [place] [address] UREA NITROGEN/CREATININE (MASS RATIO) IN SER/PLAS 27.1 Normal [facility] Comment on above: Performed By: #### L [id number] ####[facility] ([facility])[address] [place] [address] Anion gap [Moles/Vol] 10 mmol/L Normal 7-20 [facility] Comment on above: Performed By: #### L [id number] ####[facility] ([facility])[address] [place] [address] Calcium [Mass/Vol] 8.5 mg/dL Low 8.6-10.3 [facility] Comment on above: Performed By: #### L [id number] ####[facility] (BEAKER)[address] [place] [address] Chloride [Moles/Vol] 107 mmol/L Normal 98-107 [facility] Comment on above: Performed By: #### L [id number] ####[facility] (BEAKER)[address] [place] [address] CO2 [Moles/Vol] 26 mmol/L Normal 21-31 [facility] Comment on above: Performed By: #### L [id number] ####[facility] [place] [address] Creatinine [Mass/Vol] 0.41 mg/dL Low 0.60-1.20 [facility] Comment on above: Performed By: #### L [id number] ####[facility] ([facility])[address] [place] [address] GLOMERULAR FILTRATION RATE ML/MIN/1.73 SQ M.PREDICTED 109.1 mL/min/1.73m*2 Normal >60.0 [facility] Comment on above: Result Comment: [facility]???s estimated glomerular filtration rate (eGFR) will no [...] of individuals. Performed By: #### L [id number] ####[facility] [place] [address] Glucose [Mass/Vol] 86 mg/dL Normal 70-100 [facility] Comment on above: Performed By: #### L [id number] ####[facility] (BEAKER)[address] [place] [address] Potassium [Moles/Vol] 3.8 mmol/L Normal 3.5-5.1 [facility] Comment on above: Performed By: #### L [id number] ####[facility] ([facility])[address] [place] [address] Sodium [Moles/Vol] 139 mmol/L Normal 136-145 [facility] Comment on above: Performed By: #### L [id number] ####[facility] ([facility])[address] [place] [address] Urea nitrogen [Mass/Vol] 14 mg/dL Normal 7-25 [facility] Comment on above: Performed By: #### L [id number] ####[facility] ([facility])[address] [place] [address] UREA NITROGEN/CREATININE (MASS RATIO) IN SER/PLAS 34.1 Normal [facility] Comment on above: Performed By: #### L [id number] ####[facility] ([facility])[address] [place] [address] CBC WITH AUTO DIFFERENTIALon 03-29-2024 Basophils (Bld) [#/Vol] 0.03 10*3/uL Normal 0.00-0.20 [facility] Comment on above: Performed By: #### L [id number] ####[facility] [facility] [place] [address] Basophils/100 WBC (Bld) 0.7 % Normal 0.0-1.0 [facility] Comment on above: Performed By: #### L [id number] ####[facility] ([facility])[address] [place] [address] Eosinophils (Bld) [#/Vol] 0.19 10*3/uL Normal 0.00-0.50 [facility] Comment on above: Performed By: #### L [id number] ####[facility] [place] [address] Eosinophils/100 WBC (Bld) 4.3 % Normal 0.0-6.0 [facility] Comment on above: Performed By: #### L [id number] ####[facility] [place] [address] Erythrocyte distribution width (RBC) [Ratio] 15.2 % High 11.5-15.0 [facility] Comment on above: Performed By: #### L [id number] ####[facility] [place] [address] ERYTHROCYTE MEAN CORPUSCULAR HEMOGLOBIN CONCENTRATION (G/DL) BY AUTOMATED 31.6 g/dL Low 32.0-35.0 [facility] Comment on above: Performed By: #### L [id number] ####[facility] ([facility])[address] [place] [address] Hematocrit (Bld) [Volume fraction] 24.7 % Low 36.0-48.0 [facility] Comment on above: Performed By: #### L [id number] ####[facility] ([facility])[address] [place] [address] Hemoglobin (Bld) [Mass/Vol] 7.8 g/dL Low 12.0-15.0 [facility] Comment on above: Performed By: #### L [id number] ####[facility] ([facility])[address] [place] [address] Immature granulocytes (Bld) [#/Vol] 0.02 10*3/uL Normal 0.00-0.20 [facility] Comment on above: Performed By: #### L [id number] ####[facility] ([facility])[address] [place] [address] Immature granulocytes/100 WBC (Bld) 0.4 % Normal 0.0-1.0 [facility] Comment on above: Performed By: #### L [id number] ####[facility] ([facility])[address] [place] [address] Lymphocytes (Bld) [#/Vol] 0.87 10*3/uL Low 1.20-4.00 [facility] Comment on above: Performed By: #### L [id number] ####[facility] [place] [address] Lymphocytes/100 WBC (Bld) 19.5 % Low 20.0-45.0 [facility] Comment on above: Performed By: #### L [id number] ####[facility] [place] [address] MCH (RBC) [Entitic mass] 29.3 pg Normal 27.0-33.0 [facility] Comment on above: Performed By: #### L [id number] ####[facility] [place] [address] MCV (RBC) [Entitic vol] 92.9 fL Normal 82.0-98.0 [facility] Comment on above: Performed By: #### L [id number] ####[facility] [place] [address] Monocytes (Bld) [#/Vol] 0.49 10*3/uL Normal 0.10-1.00 [facility] Comment on above: Performed By: #### L [id number] ####[facility] [place] [address] Monocytes/100 WBC (Bld) 11.0 % Normal 5.0-12.0 [facility] Comment on above: Performed By: #### L [id number] ####[facility] [place] [address] Neutrophils (Bld) [#/Vol] 2.86 10*3/uL Normal 1.60-7.60 [facility] Comment on above: Performed By: #### L [id number] ####[facility] ([facility])[address] [place] [address] Neutrophils/100 WBC (Bld) 64.1 % Normal 40.0-72.0 [facility] Comment on above: Performed By: #### L [id number] ####[facility] ([facility])[address] [place] [address] NRBC (PER 100 WBCS) BY AUTOMATED COUNT 0.0 % Normal 0 [facility] Comment on above: Performed By: #### L [id number] ####[facility] ([facility])[address] [place] [address] PLATELETS (10*3/UL) IN BLOOD AUTOMATED COUNT 283 10*3/uL Normal 150-400 [facility] Comment on above: Performed By: #### L [id number] ####[facility] ([facility])[address] [place] [address] RBC (Bld) [#/Vol] 2.66 10*6/uL Low 3.80-5.00 [facility] Comment on above: Performed By: #### L [id number] ####[facility] [place] [address] WBC (Bld) [#/Vol] 4.46 10*3/uL Normal 4.00-10.60 [facility] Comment on above: Performed By: #### L [id number] ####[facility] ([facility])[address] [place] [address] HEMOGLOBIN AND HEMATOCRIT, B LOODon 03-29-2024 Hematocrit (Bld) [Volume fraction] 32.2 % Low 36.0-48.0 [facility] Comment on above: Performed By: #### L [id number] ####[facility] ([facility])[address] [place] [address] Hemoglobin (Bld) [Mass/Vol] 10.4 g/dL Low 12.0-15.0 [facility] Comment on above: Performed By: #### L [id number] ####[facility] ([facility])[address] [place] [address] Hematocrit (Bld) [Volume fraction] 23.8 % Low 36.0-48.0 [facility] Comment on above: Performed By: #### L [id number] ####[facility] ([facility])[address] [place] [address] Hemoglobin (Bld) [Mass/Vol] 7.8 g/dL Low 12.0-15.0 [facility] Comment on above: Performed By: #### L [id number] ####[facility] [place] [address] Hematocrit (Bld) [Volume fraction] 25.2 % Low 36.0-48.0 [facility] Comment on above: Performed By: #### L [id number] ####[facility] ([facility])[address] [place] [address] Hemoglobin (Bld) [Mass/Vol] 8.1 g/dL Low 12.0-15.0 [facility] Comment on above: Performed By: #### L [id number] ####[facility] ([facility])[address] [place] [address] MAGNESIUMon 03-29-2024 Magnesium [Mass/Vol] 1.8 mg/dL Low 1.9-2.7 [facility] Comment on above: Performed By: #### L [id number] ####[facility] ([facility])[address] [place] [address] Magnesium [Mass/Vol] 1.9 mg/dL Normal 1.9-2.7 [facility] Comment on above: Performed By: #### L [id number] ####[facility] ([facility])[address] [place] [address] PHOSPHORUSon 03-29-2024 Magnesium [Mass/Vol] 3.6 mg/dL Normal 2.5-5.0 [facility] Comment on above: Performed By: #### L [id number] ####[facility])[address] [place] [address] BASIC METABOLIC PANELon 03-17 Anion gap [Moles/Vol] 9 mmol/L Normal 7-20 [facility] Comment on above: Performed By: #### L [id number] ####[facility] ([facility])[address] [place] [address] Calcium [Mass/Vol] 8.1 mg/dL Low 8.6-10.3 [facility] Comment on above: Performed By: #### L [id number] ####[facility] ([facility])[address] [place] [address] Chloride [Moles/Vol] 107 mmol/L Normal 98-107 [facility] Comment on above: Performed By: #### L [id number] ####[facility] ([facility])[address] [place] [address] CO2 [Moles/Vol] 26 mmol/L Normal 21-31 [facility] Comment on above: Performed By: #### L [id number] ####[facility] ([facility])[address] [place] [address] Creatinine [Mass/Vol] 0.47 mg/dL Low 0.60-1.20 [facility] Comment on above: Performed By: #### L [id number] ####[facility] ([facility])[address] [place] [address] GLOMERULAR FILTRATION RATE ML/MIN/1.73 SQ M.PREDICTED 105.6 mL/min/1.73m*2 Normal >60.0 [facility] Comment on above: Result Comment: The [facility]???s estimated glomerular filtration rate (eGFR) will no [...] of individuals. Performed By: #### L [id number] ####[facility] ([facility])[address] [place] [address] Glucose [Mass/Vol] 111 mg/dL High 70-100 [facility] Comment on above: Performed By: #### L [id number] ####[facility] ([facility])[address] [place] [address] Potassium [Moles/Vol] 3.8 mmol/L Normal 3.5-5.1 [facility] Comment on above: Performed By: #### L [id number] ####[facility] ([facility])[address] [place] [address] Sodium [Moles/Vol] 138 mmol/L Normal 136-145 [facility] Comment on above: Performed By: #### L [id number] ####[facility] ([facility])[address] [place] [address] Urea nitrogen [Mass/Vol] 24 mg/dL Normal 7-25 [facility] Comment on above: Performed By: #### L [id number] ####[facility] ([facility])[address] [place] [address] UREA NITROGEN/CREATININE (MASS RATIO) IN SER/PLAS 51.1 Normal [facility] Comment on above: Performed By: #### L [id number] ####[facility] ([facility])[address] [place] [address] CBC WITH AUTO DIFFERENTIALon 03-28-2024 Basophils (Bld) [#/Vol] 0.05 10*3/uL Normal 0.00-0.20 [facility] Comment on above: Performed By: #### L [id number] ####[facility] ([facility])[address] [place] [address] Basophils/100 WBC (Bld) 0.6 % Normal 0.0-1.0 [facility] Comment on above: Performed By: #### L [id number] ####[facility] [place] [address] Eosinophils (Bld) [#/Vol] 0.11 10*3/uL Normal 0.00-0.50 [facility] Comment on above: Performed By: #### L [id number] ####[facility] [place] [address] Eosinophils/100 WBC (Bld) 1.3 % Normal 0.0-6.0 [facility] Comment on above: Performed By: #### L [id number] ####[facility] ([facility])[address] [place] [address] Erythrocyte distribution width (RBC) [Ratio] 15.4 % High 11.5-15.0 [facility] Comment on above: Performed By: #### L [id number] ####[facility] ([facility])[address] [place] [address] ERYTHROCYTE MEAN CORPUSCULAR HEMOGLOBIN CONCENTRATION (G/DL) BY AUTOMATED 32.0 g/dL Normal 32.0-35.0 [facility] Comment on above: Performed By: #### L [id number] ####[facility] ([facility])[address] [place] [address] Hematocrit (Bld) [Volume fraction] 25.3 % Low 36.0-48.0 [facility] Comment on above: Performed By: #### L [id number] ####[facility] ([facility])[address] [place] [address] Hemoglobin (Bld) [Mass/Vol] 8.1 g/dL Low 12.0-15.0 [facility] Comment on above: Performed By: #### L [id number] ####[facility] ([facility])[address] [place] [address] Immature granulocytes (Bld) [#/Vol] 0.04 10*3/uL Normal 0.00-0.20 [facility] Comment on above: Performed By: #### L [id number] ####[facility] ([facility])[address] [place] [address] Immature granulocytes/100 WBC (Bld) 0.5 % Normal 0.0-1.0 [facility] Comment on above: Performed By: #### L [id number] ####[facility] ([facility])[address] [place] [address] Lymphocytes (Bld) [#/Vol] 1.35 10*3/uL Normal 1.20-4.00 [facility] Comment on above: Performed By: #### L [id number] ####[facility] ([facility])[address] [place] [address] Lymphocytes/100 WBC (Bld) 15.9 % Low 20.0-45.0 [facility] Comment on above: Performed By: #### L [id number] ####[facility] ([facility])[address] [place] [address] MCH (RBC) [Entitic mass] 30.1 pg Normal 27.0-33.0 [facility] Comment on above: Performed By: #### L [id number] ####[facility] ([facility])[address] [place] [address] MCV (RBC) [Entitic vol] 94.1 fL Normal 82.0-98.0 [facility] Comment on above: Performed By: #### L [id number] ####[facility] ([facility])[address] [place] [address] Monocytes (Bld) [#/Vol] 0.83 10*3/uL Normal 0.10-1.00 [facility] Comment on above: Performed By: #### L [id number] ####[facility] ([facility])[address] [place] [address] Monocytes/100 WBC (Bld) 9.8 % Normal 5.0-12.0 [facility] Comment on above: Performed By: #### L [id number] ####[facility] ([facility])[address] [place] [address] Neutrophils (Bld) [#/Vol] 6.10 10*3/uL Normal 1.60-7.60 [facility] Comment on above: Performed By: #### L [id number] ####[facility] ([facility])[address] [place] [address] Neutrophils/100 WBC (Bld) 71.9 % Normal 40.0-72.0 [facility] Comment on above: Performed By: #### L [id number] ####[facility] ([facility])[address] [place] [address] NRBC (PER 100 WBCS) BY AUTOMATED COUNT 0.0 % Normal 0 [facility] Comment on above: Performed By: #### L [id number] ####[facility] ([facility])[address] [place] [address] PLATELETS (10*3/UL) IN BLOOD AUTOMATED COUNT 397 10*3/uL Normal 150-400 [facility] Comment on above: Performed By: #### L [id number] ####[facility] ([facility])[address] [place] [address] RBC (Bld) [#/Vol] 2.69 10*6/uL Low 3.80-5.00 [facility] Comment on above: Performed By: #### L [id number] ####[facility] ([facility])[address] [place] [address] WBC (Bld) [#/Vol] 8.48 10*3/uL Normal 4.00-10.60 [facility] Comment on above: Performed By: #### L [id number] ####[facility] ([facility])[address] [place] [address] CONSULTon 03-28-2024 CONSULT Normal [facility] HEMOGLOBIN AND HEMATOCRIT, B LOODon 03-28-2024 Hematocrit (Bld) [Volume fraction] 24.9 % Low 36.0-48.0 [facility] Comment on above: Performed By: #### L [id number] ####[facility] [place] [address] Hemoglobin (Bld) [Mass/Vol] 7.9 g/dL Low 12.0-15.0 [facility] Comment on above: Performed By: #### L [id number] ####[facility] ([facility])[address] [place] [address] Hematocrit (Bld) [Volume fraction] 25.7 % Low 36.0-48.0 [facility] Comment on above: Performed By: #### L [id number] ####[facility] ([facility])[address] [place] [address] Hemoglobin (Bld) [Mass/Vol] 8.2 g/dL Low 12.0-15.0 [facility] Comment on above: Performed By: #### L [id number] ####[facility] ([facility])[address] [place] [address] MAGNESIUMon 03-28-2024 Magnesium [Mass/Vol] 1.9 mg/dL Normal 1.9-2.7 [facility] Comment on above: Performed By: #### L [id number] ####[facility] ([facility])[address] [place] [address] PHOSPHORUSon 03-28-2024 Magnesium [Mass/Vol] 3.0 mg/dL Normal 2.5-5.0 [facility] Comment on above: Performed By: #### L [id number] ####[facility] ([facility])[address] [place] [address] 30on 03-27-2024 30 Normal [facility] 30 Normal [facility] 30 Normal [facility] AFB CULTUREon 03-27-2024 AFB CULTURE No growth at 42 days Normal [facility] Comment on above: Performed By: #### L [id number] ####[facility] ([facility])[address] [place] [address] AFB STAIN No acid fast bacilli seen Normal [facility] Comment on above: Performed By: #### L [id number] ####[facility] ([facility])[address] [place] [address] APTTon 03-27-2024 ACTIVATED PARTIAL THROMBOPLASTIN TIME IN PPP BY COAGULATION ASSAY 27.7 Seconds Normal 25.0-35.0 [facility] Comment on above: Result Comment: Clin ical significance of the APTT is questionable in the presence of heparin. Performed By: #### L [id number] ####[facility] ([facility])[address] [place] [address] ACTIVATED PARTIAL THROMBOPLASTIN TIME IN PPP BY COAGULATION ASSAY 31.3 Seconds Normal 25.0-35.0 [facility] Comment on above: Result Comment: Clin ical significance of the APTT is questionable in the presence of heparin. Performed By: #### L [id number] ####[facility] ([facility])[address] [place] [address] B-TYPE NATRIURETIC PEPTIDEon 03-27-2024 Natriuretic peptide B (Bld) [Mass/Vol] 53 pg/mL Normal 0-100 [facility] Comment on above: Performed By: #### L [id number] ####[facility] [place] [address] BASIC METABOLIC PANELon 03-17 Anion gap [Moles/Vol] 10 mmol/L Normal 7-20 [facility] Comment on above: Performed By: #### L [id number] ####[facility] [place] [address] Calcium [Mass/Vol] 8.2 mg/dL Low 8.6-10.3 [facility] Comment on above: Performed By: #### L [id number] ####[facility] [place] [address] Chloride [Moles/Vol] 106 mmol/L Normal 98-107 [facility] Comment on above: Performed By: #### L [id number] ####[facility] ([facility])[address] [place] [address] CO2 [Moles/Vol] 26 mmol/L Normal 21-31 [facility] Comment on above: Performed By: #### L [id number] ####[facility] ([facility])[address] [place] [address] Creatinine [Mass/Vol] 0.51 mg/dL Low 0.60-1.20 [facility] Comment on above: Performed By: #### L [id number] ####[facility] ([facility])[address] [place] [address] GLOMERULAR FILTRATION RATE ML/MIN/1.73 SQ M.PREDICTED 103.5 mL/min/1.73m*2 Normal >60.0 [facility] Comment on above: Result Comment: [facility]???s estimated glomerular filtration rate (eGFR) will no [...] of individuals. Performed By: #### L [id number] ####[facility] ([facility])[address] [address] Glucose [Mass/Vol] 103 mg/dL High 70-100 [facility] Comment on above: Performed By: #### L [id number] ####[facility] ([facility])[address] [facility] [place] [address] Potassium [Moles/Vol] 4.0 mmol/L Normal 3.5-5.1 [facility] Comment on above: Performed By: #### L [id number] ####[facility] ([facility])[address] [facility] [place] [address] Sodium [Moles/Vol] 138 mmol/L Normal 136-145 [facility] Comment on above: Performed By: #### L [id number] ####[facility] ([facility])[address] [address] Urea nitrogen [Mass/Vol] 26 mg/dL High 7-25 [facility] Comment on above: Performed By: #### L [id number] ####[facility] ([facility])[address] BiosciencesDE[facility] [place] [address] UREA NITROGEN/CREATININE (MASS RATIO) IN SER/PLAS 51.0 Normal [facility] Comment on above: Performed By: #### L [id number] ####[facility] ([facility])[address] [place] [address] BLOOD CULTUREon 09-11-2024 Bacteria identified Cx Nom (Bld) No growth at 5 days Normal [facility] Comment on above: Performed By: #### L [id number] ####[facility] ([facility])[address] [place] [address] Order Comment: From a different site than #1. CALCIUM, IONIZEDon CALCIUM IONIZED (MMOL/L) IN BLOOD 1.24 mmol/L Normal 1.15-1.33 [facility] Comment on above: Performed By: #### C ALCIUM, IONIZED ####[facility] [id number] [address] CALCIUM IONIZED (MMOL/L) IN BLOOD 1.21 mmol/L Normal 1.15-1.33 [facility] Comment on above: Performed By: #### C ALCIUM, IONIZED ####[facility] [id number] [address] CBC WITH AUTO DIFFERENTIALon 03-27-2024 Basophils (Bld) [#/Vol] 0.04 10*3/uL Normal 0.00-0.20 [facility] Comment on above: Performed By: #### L [id number] ####[facility] ([facility])[address] [place] [address] Basophils/100 WBC (Bld) 0.2 % Normal 0.0-1.0 [facility] Comment on above: Performed By: #### L [id number] ####[facility] [place] [address] Eosinophils (Bld) [#/Vol] 0.02 10*3/uL Normal 0.00-0.50 [facility] Comment on above: Performed By: #### L [id number] ####[facility] ([facility])[address] [place] [address] Eosinophils/100 WBC (Bld) 0.1 % Normal 0.0-6.0 [facility] Comment on above: Performed By: #### L [id number] ####[facility] [place] [address] Erythrocyte distribution width (RBC) [Ratio] 15.1 % High 11.5-15.0 [facility] Comment on above: Performed By: #### L [id number] ####[facility] ([facility])[address] [place] [address] ERYTHROCYTE MEAN CORPUSCULAR HEMOGLOBIN CONCENTRATION (G/DL) BY AUTOMATED 30.1 g/dL Low 32.0-35.0 [facility] Comment on above: Performed By: #### L [id number] ####[facility] ([facility])[address] [place] [address] Hematocrit (Bld) [Volume fraction] 28.2 % Low 36.0-48.0 [facility] Comment on above: Performed By: #### L [id number] ####[facility] ([facility])[address] [place] [address] Hemoglobin (Bld) [Mass/Vol] 8.5 g/dL Low 12.0-15.0 [facility] Comment on above: Performed By: #### L [id number] ####[facility] ([facility])[address] [place] [address] Immature granulocytes (Bld) [#/Vol] 0.16 10*3/uL Normal 0.00-0.20 [facility] Comment on above: Performed By: #### L [id number] ####[facility] ([facility])[address] [place] [address] Immature granulocytes/100 WBC (Bld) 0.8 % Normal 0.0-1.0 [facility] Comment on above: Performed By: #### L [id number] ####[facility] [place] [address] Lymphocytes (Bld) [#/Vol] 0.37 10*3/uL Low 1.20-4.00 [facility] Comment on above: Performed By: #### L [id number] ####[facility] ([facility])[address] [place] [address] Lymphocytes/100 WBC (Bld) 1.9 % Low 20.0-45.0 [facility] Comment on above: Performed By: #### L [id number] ####[facility] ([facility])[address] [place] [address] MCH (RBC) [Entitic mass] 29.4 pg Normal 27.0-33.0 [facility] Comment on above: Performed By: #### L [id number] ####[facility] [place] [address] MCV (RBC) [Entitic vol] 97.6 fL Normal 82.0-98.0 [facility] Comment on above: Performed By: #### L [id number] ####[facility] (BEAKER)[address] [place] [address] Monocytes (Bld) [#/Vol] 0.31 10*3/uL Normal 0.10-1.00 [facility] Comment on above: Performed By: #### L [id number] ####[facility] (BEAKER)[address] [place] [address] Monocytes/100 WBC (Bld) 1.6 % Low 5.0-12.0 [facility] Comment on above: Performed By: #### L [id number] ####[facility] (BEAKER)[address] [place] [address] Neutrophils (Bld) [#/Vol] 18.90 10*3/uL High 1.60-7.60 [facility] Comment on above: Performed By: #### L [id number] ####[facility] (BEAKER)[address] [place] [address] Neutrophils/100 WBC (Bld) 95.4 % High 40.0-72.0 [facility] Comment on above: Performed By: #### L [id number] ####[facility] (BEAKER)[address] [place] [address] NRBC (PER 100 WBCS) BY AUTOMATED COUNT 0.0 % Normal 0 [facility] Comment on above: Performed By: #### L [id number] ####[facility] ([facility])[address] [place] [address] PLATELETS (10*3/UL) IN BLOOD AUTOMATED COUNT 399 10*3/uL Normal 150-400 [facility] Comment on above: Performed By: #### L [id number] ####[facility] ([facility])[address] [place] [address] RBC (Bld) [#/Vol] 2.89 10*6/uL Low 3.80-5.00 [facility] Comment on above: Performed By: #### L [id number] ####[facility] ([facility])[address] [place] [address] WBC (Bld) [#/Vol] 19.80 10*3/uL High 4.00-10.60 [facility] Comment on above: Performed By: #### L [id number] ####[facility] ([facility])[address] [place] [address] COMPREHENSIVE METABOLIC PANE Flash 03-27-2024 Albumin [Mass/Vol] 3.2 g/dL Low 3.5-5.7 [facility] Comment on above: Performed By: #### L [id number] ####[facility] [place] [address] ALP [Catalytic activity/Vol] 43 U/L Normal 34-104 [facility] Comment on above: Performed By: #### L [id number] ####[facility] [place] [address] ALT [Catalytic activity/Vol] 11 U/L Normal 7-52 [facility] Comment on above: Performed By: #### L [id number] ####[facility] [place] [address] Anion gap [Moles/Vol] 10 mmol/L Normal 7-20 [facility] Comment on above: Performed By: #### L [id number] ####[facility] (BEAKER)[address] [place] [address] AST [Catalytic activity/Vol] 17 U/L Normal 13-39 [facility] Comment on above: Performed By: #### L [id number] ####[facility] (BEAKER)[address] [place] [address] Bilirubin [Mass/Vol] 0.4 mg/dL Normal 0.3-1.0 [facility] Comment on above: Performed By: #### L [id number] ####[facility] (BEAKER)[address] [place] [address] Calcium [Mass/Vol] 8.1 mg/dL Low 8.6-10.3 [facility] Comment on above: Performed By: #### L [id number] ####[facility] (BEAKER)[address] [place] [address] Chloride [Moles/Vol] 104 mmol/L Normal 98-107 [facility] Comment on above: Performed By: #### L [id number] ####[facility] (BEAKER)[address] [place] [address] CO2 [Moles/Vol] 26 mmol/L Normal 21-31 [facility] Comment on above: Performed By: #### L [id number] ####[facility] (BEAKER)[address] [place] [address] Creatinine [Mass/Vol] 0.54 mg/dL Low 0.60-1.20 [facility] Comment on above: Performed By: #### L [id number] ####[facility] (BEAKER)[address] [place] [address] GLOMERULAR FILTRATION RATE ML/MIN/1.73 SQ M.PREDICTED 102.1 mL/min/1.73m*2 Normal >60.0 [facility] Comment on above: Result Comment: [facility]???s estimated glomerular filtration rate (eGFR) will no [...] of individuals. Performed By: #### L [id number] ####[facility] ([facility])[address] [place] [address] Glucose [Mass/Vol] 176 mg/dL High 70-100 [facility] Comment on above: Performed By: #### L [id number] ####[facility] ([facility])[address] [place] [address] Potassium [Moles/Vol] 4.4 mmol/L Normal 3.5-5.1 [facility] Comment on above: Performed By: #### L [id number] ####[facility] ([facility])[address] [place] [address] Protein [Mass/Vol] 6.5 g/dL Normal 6.0-8.3 [facility] Comment on above: Performed By: #### L [id number] ####[facility] ([facility])[address] [place] [address] Sodium [Moles/Vol] 136 mmol/L Normal 136-145 [facility] Comment on above: Performed By: #### L [id number] ####[facility] ([facility])[address] [place] [address] Urea nitrogen [Mass/Vol] 34 mg/dL High 7-25 [facility] Comment on above: Performed By: #### L [id number] ####[facility] ([facility])[address] [place] [address] UREA NITROGEN/CREATININE (MASS RATIO) IN SER/PLAS 63.0 Normal [facility] Comment on above: Performed By: #### L [id number] ####[facility] ([facility])[address] [place] [address] FUNGAL CULTUREon 03-27-2024 FUNGAL SMEAR No yeast or fungal e lements seen Normal [facility] Comment on above: Performed By: #### L [id number] ####[facility] (BEAKER)[address] [place] [address] HEMOGLOBIN AND HEMATOCRIT, B LOODon 03-27-2024 Hematocrit (Bld) [Volume fraction] 22.1 % Low 36.0-48.0 [facility] Comment on above: Performed By: #### L [id number] ####[facility] (BEAKER)[address] [place] [address] Hemoglobin (Bld) [Mass/Vol] 6.9 g/dL Low 12.0-15.0 [facility] Comment on above: Performed By: #### L [id number] ####[facility] (BEAKER)[address] [place] [address] Hematocrit (Bld) [Volume fraction] 24.1 % Low 36.0-48.0 [facility] Comment on above: Performed By: #### L [id number] ####[facility] (BEAKER)[address] [place] [address] Hemoglobin (Bld) [Mass/Vol] 7.5 g/dL Low 12.0-15.0 [facility] Comment on above: Performed By: #### L [id number] ####[facility] (BEAKER)[address] [place] [address] Hematocrit (Bld) [Volume fraction] 24.4 % Low 36.0-48.0 [facility] Comment on above: Performed By: #### L [id number] ####[facility] (BEAKER)[address] [place] [address] Hemoglobin (Bld) [Mass/Vol] 7.6 g/dL Low 12.0-15.0 [facility] Comment on above: Performed By: #### L [id number] ####[facility] (BEAKER)[address] [place] [address] Hematocrit (Bld) [Volume fraction] 25.4 % Low 36.0-48.0 [facility] Comment on above: Performed By: #### L [id number] ####[facility] [place] [address] Hemoglobin (Bld) [Mass/Vol] 8.0 g/dL Low 12.0-15.0 [facility] Comment on above: Performed By: #### L [id number] ####[facility] ([facility])[address] [place] [address] HPon 03-27-2024 HP Normal [facility] LACTIC ACID WITH 4 HOUR REFL EXon 03-27-2024 LACTATE (MMOL/L) IN SER/PLAS 0.7 mmol/L Normal 0.5-2.2 [facility] Comment on above: Performed By: #### L [id number] ####[facility] ([facility])[address] [place] [address] LACTATE (MMOL/L) IN SER/PLAS 1.3 mmol/L Normal 0.5-2.2 [facility] Comment on above: Performed By: #### L [id number] ####[facility] ([facility])[address] [address] MAGNESIUMon 03-27-2024 Magnesium [Mass/Vol] 1.8 mg/dL Low 1.9-2.7 [facility] Comment on above: Performed By: #### L [id number] ####[facility] ([facility])[address] [place] [address] PHOSPHORUSon 03-27-2024 Magnesium [Mass/Vol] 4.0 mg/dL Normal 2.5-5.0 [facility] Comment on above: Performed By: #### L [id number] ####[facility] [place] [address] POTASSIUM, WHOLE BLOODon Potassium [Moles/Vol] 4.1 mmol/L Normal 3.5-5.1 [facility] Comment on above: Performed By: #### P OTASSIUM, WHOLE BLOOD ####[facility] [id number] [place] [address] [facility] Potassium [Moles/Vol] 4.9 mmol/L Normal 3.5-5.1 [facility] Comment on above: Performed By: #### P OTASSIUM, WHOLE BLOOD ####[facility] [id number] [place] [address] [facility] PROCALCITONIN TESTon 024 PROCALCITONIN IN BLOOD 0.08 ng/mL Normal 0.00-0.10 [facility] Comment on above: Result Comment: Rebeca tor triglycerides while patient is on propofol Performed By: #### L [id number] ####[facility] (BEAKER)[address] [place] [address] PROTIME-INRon 03-27-2024 INR IN PPP BY COAGULATION ASSAY 1.16 High 0.90-1.10 [facility] Comment on above: Result Comment: ACCC P [...] CHEST 1995;[id number]. Performed By: #### L [id number] ####[facility] (BEAKER)[address] [place] [address] PROTHROMBIN TIME (PT) IN PPP BY COAGULATION ASSAY 14.8 Seconds Normal 12.3-14.8 [facility] Comment on above: Performed By: #### L [id number] ####[facility] ([facility])[address] [place] [address] INR IN PPP BY COAGULATION ASSAY 1.41 High 0.90-1.10 [facility] Comment on above: Result Comment: ACCC P [...] CHEST 1995;[id number]. Performed By: #### L [id number] ####[facility] ([facility])[address] [place] [address] PROTHROMBIN TIME (PT) IN PPP BY COAGULATION ASSAY 17.1 Seconds High 12.3-14.8 [facility] Comment on above: Performed By: #### L [id number] ####[facility] ([facility])[address] [place] [address] RESPIRATORY CULTUREon 2023 Bacteria identified Cx Nom (Unsp spec) 1,000 CFU/mL Colonies Consistent with Upper Respiratory Li Normal [facility] Comment on above: Performed By: #### L [id number] ####[facility] ([facility])[address] [place] [address] GRAM STAIN RESULT Normal [facility] Comment on above: Result Comment: Few Polymorphonuclear leukocytesNo organisms seen Performed By: #### L [id number] ####[facility] ([facility])[address] [place] [address] SODIUM, WHOLE BLOODon 2023 SODIUM, WHOLE BLOOD 138 Normal 136-145 [facility] Comment on above: Performed By: #### S ODIUM, WHOLE BLOOD ####[facility] [id number] [place] [address] [place] SODIUM, WHOLE BLOOD 137 Normal 136-145 [facility] Comment on above: Performed By: #### S ODIUM, WHOLE BLOOD ####[facility] [id number] [place] [address] [place] TRIGLYCERIDESon 03-27-2024 FASTING? unknown Normal [facility] Comment on above: Order Comment: Monit or triglycerides while patient is on propofol. Consult Nutrition if greater than 500 mg/dL. Performed By: #### L [id number] ####[facility] ([facility])[address] [place] [address] Magnesium [Mass/Vol] 50 mg/dL Normal 40-149 [facility] Comment on above: Order Comment: Monit or triglycerides while patient is on propofol. Consult Nutrition if greater than 500 mg/dL. Result Comment: TRIG LYCERIDE REFERENCE RANGE:20 YEARS AND OLDER CARDIOVASCULAR RISKLESS THAN 150 mg/dL LOW [id number] TO 199 mg/dL BORDERLINE [id number] mg/dL AND GREATER HIGH RISK Performed By: #### L [id number] ####[facility] ([facility])[address] [place] [address] TROPONIN Ion 03-27-2024 Troponin I.cardiac [Mass/Vol] 0.02 ng/mL Normal 0.00-0.04 [facility] Comment on above: Performed By: #### L [id number] ####[facility] ([facility])[address] [place] [address] TYPE AND SCREENon 03-27-2024 AB SCREEN Negative Normal [facility] Comment on above: Performed By: #### L [id number] ####[facility], ABO group Nom (Bld) A Normal [facility] Comment on above: Performed By: #### L [id number] ####[facility], RH TYPE IN BLOOD Negative Normal [facility] Comment on above: Performed By: #### L [id number] ####[facility], VENOUS BLOOD GAS WITH IONIZE D CALCIUMon 03-27-2024 Base excess Calc (BldV) [Moles/Vol] 2.1 mmol/L Normal [facility] Comment on above: Performed By: #### L [id number] ####[facility] [id number] [place] [address] [facility] CALCIUM IONIZED (MMOL/L) IN BLOOD 1.21 mmol/L Normal 1.15-1.33 [facility] Comment on above: Performed By: #### L [id number] ####[facility] [id number] [facility] [address] [place] CO2 (BldV) [Partial pressure] 61 mm[Hg] High 40-50 [facility] Comment on above: Performed By: #### L [id number] ####[facility] [id number] [facility] [address] [place] HCO3 (Bld) [Moles/Vol] 29.3 mmol/L [facility] Comment on above: Performed By: #### L [id number] ####[facility] [id number] [facility] [address] [place] Oxygen (BldV) [Partial pressure] 55 mm[Hg] High 35-45 [facility] Comment on above: Performed By: #### L [id number] ####[facility] [id number] [facility] [address] [place] OXYGEN SATURATION (%) IN VENOUS BLOOD 83.8 % High 65.0-75.0 [facility] Comment on above: Performed By: #### L [id number] ####[facility] [id number] [facility] [address] [place] PH OF VENOUS BLOOD 7.29 Low 7.31-7.41 [facility] Comment on above: Performed By: #### L [id number] ####[facility] [id number] [place] [address] [place] 30on 03-26-2024 30 Normal [facility] ANTI-XA (HEPARIN LEVEL)on HEPARIN UNFRACTIONATED (U/ML) IN PPP BY CHROMOGENIC METHOD >1.00 Critically high 0.3-0.7 [facility] Comment on above: Order Comment: Check anti-Xa level every 6 hours while on heparin infusion, or per protocol. Result Comment: [place] roxaban and Apixaban will interfere with the anti Xa assay used to monitor UFH and LMWH. Performed By: #### L [id number] ####[facility] ([facility])[address] [place] [address] COMPREHENSIVE METABOLIC PANE Flash 03-26-2024 Albumin [Mass/Vol] 3.4 g/dL Low 3.5-5.7 [facility] Comment on above: Performed By: #### L [id number] ####[facility] (BEAKER)[address] [place] [address] ALP [Catalytic activity/Vol] 39 U/L Normal 34-104 [facility] Comment on above: Performed By: #### L [id number] ####[facility] (BEAKER)[address] [place] [address] ALT [Catalytic activity/Vol] 10 U/L Normal 7-52 [facility] Comment on above: Performed By: #### L [id number] ####[facility] (BEAKER)[address] [place] [address] Anion gap [Moles/Vol] 11 mmol/L Normal 7-20 [facility] Comment on above: Performed By: #### L [id number] ####[facility] (BEAKER)[address] [place] [address] AST [Catalytic activity/Vol] 19 U/L Normal 13-39 [facility] Comment on above: Performed By: #### L [id number] ####[facility] [place] [address] Bilirubin [Mass/Vol] 0.4 mg/dL Normal 0.3-1.0 [facility] Comment on above: Performed By: #### L [id number] ####[facility] [place] [address] Calcium [Mass/Vol] 9.0 mg/dL Normal 8.6-10.3 [facility] Comment on above: Performed By: #### L [id number] ####[facility] (BEAKER)[address] [place] [address] Chloride [Moles/Vol] 101 mmol/L Normal 98-107 [facility] Comment on above: Performed By: #### L [id number] ####[facility] (BEAKER)[address] [place] [address] CO2 [Moles/Vol] 28 mmol/L Normal 21-31 [facility] Comment on above: Performed By: #### L [id number] ####[facility] [place] [address] Creatinine [Mass/Vol] 0.46 mg/dL Low 0.60-1.20 [facility] Comment on above: Performed By: #### L [id number] ####[facility] [place] [address] GLOMERULAR FILTRATION RATE ML/MIN/1.73 SQ M.PREDICTED 106.1 mL/min/1.73m*2 Normal >60.0 [facility] Comment on above: Result Comment: [facility]???s estimated glomerular filtration rate (eGFR) will no [...] of individuals. Performed By: #### L [id number] ####[facility] ([facility])[address] [place] [address] Glucose [Mass/Vol] 115 mg/dL High 70-100 [facility] Comment on above: Performed By: #### L [id number] ####[facility] ([facility])[address] [place] [address] Potassium [Moles/Vol] 4.0 mmol/L Normal 3.5-5.1 [facility] Comment on above: Performed By: #### L [id number] ####[facility] ([facility])[address] [place] [address] Protein [Mass/Vol] 6.9 g/dL Normal 6.0-8.3 [facility] Comment on above: Performed By: #### L [id number] ####[facility] ([facility])[address] [facility] [place] [address] Sodium [Moles/Vol] 136 mmol/L Normal 136-145 [facility] Comment on above: Performed By: #### L [id number] ####[facility] ([facility])[address] [place] [address] Urea nitrogen [Mass/Vol] 17 mg/dL Normal 7-25 [facility] Comment on above: Performed By: #### L [id number] ####[facility] ([facility])[address] [facility] [place] [address] UREA NITROGEN/CREATININE (MASS RATIO) IN SER/PLAS 37.0 Normal [facility] Comment on above: Performed By: #### L [id number] ####[facility] ([facility])[address] [place] [address] DSon 03-26-[address] [facility] NURSNOTEon 03-26-[address] [facility] NURSNOTE It Technical Support Specialist received a ca ll from lab for a critical heparin greater than 1.0 and PTT of 32. The patient is no longer on the heparin drip. [facility] 30on 03-25-2024 30 Normal [facility] 30 Normal [facility] ANTI-XA (HEPARIN LEVEL)on HEPARIN UNFRACTIONATED (U/ML) IN PPP BY CHROMOGENIC METHOD 0.24 IU/mL Low 0.3-0.7 [facility] Comment on above: Order Comment: Check anti-Xa level every 6 hours while on heparin infusion, or per protocol. Result Comment: [place] roxaban and Apixaban will interfere with the anti Xa assay used to monitor UFH and LMWH. Performed By: #### L [id number] ####[facility] (BEAKER)[address] [place] [address] HEPARIN UNFRACTIONATED (U/ML) IN PPP BY CHROMOGENIC METHOD 0.10 IU/mL Invalid Interpretation Code 0.3-0.7 [facility] Comment on above: Order Comment: Check anti-Xa level every 6 hours while on heparin infusion, or per protocol. Result Comment: [place] roxaban and Apixaban will interfere with the anti Xa assay used to monitor UFH and LMWH. Performed By: #### L [id number] ####[facility] (BEAKER)[address] [facility] [place] [address] BASIC METABOLIC PANELon Anion gap [Moles/Vol] 13 mmol/L Normal 7-20 [facility] Comment on above: Performed By: #### L [id number] ####[facility] (BEAKER)[address] [facility] [address] Calcium [Mass/Vol] 9.4 mg/dL Normal 8.6-10.3 [facility] Comment on above: Performed By: #### L [id number] ####[facility] (BEAKER)[address] [place] [address] Chloride [Moles/Vol] 100 mmol/L Normal 98-107 [facility] Comment on above: Performed By: #### L [id number] ####[facility] (BEAKER)[address] [facility] [place] [address] CO2 [Moles/Vol] 27 mmol/L Normal 21-31 [facility] Comment on above: Performed By: #### L [id number] ####[facility] ([facility])[address] [place] [address] Creatinine [Mass/Vol] 0.52 mg/dL Low 0.60-1.20 [facility] Comment on above: Performed By: #### L [id number] ####[facility] ([facility])[address] [place] [address] GLOMERULAR FILTRATION RATE ML/MIN/1.73 SQ M.PREDICTED 103.0 mL/min/1.73m*2 Normal >60.0 [facility] Comment on above: Result Comment: [facility]???s estimated glomerular filtration rate (eGFR) will no [...] of individuals. Performed By: #### L [id number] ####[facility] ([facility])[address] [place] [address] Glucose [Mass/Vol] 109 mg/dL High 70-100 [facility] Comment on above: Performed By: #### L [id number] ####[facility] ([facility])[address] [place] [address] Potassium [Moles/Vol] 4.6 mmol/L Normal 3.5-5.1 [facility] Comment on above: Performed By: #### L [id number] ####[facility] ([facility])[address] [place] [address] Sodium [Moles/Vol] 135 mmol/L Low 136-145 [facility] Comment on above: Performed By: #### L [id number] ####[facility] ([facility])[address] [place] [address] Urea nitrogen [Mass/Vol] 22 mg/dL Normal 7-25 [facility] Comment on above: Performed By: #### L [id number] ####[facility] [place] [address] UREA NITROGEN/CREATININE (MASS RATIO) IN SER/PLAS 42.3 Normal [facility] Comment on above: Performed By: #### L [id number] ####[facility] ([facility])[address] [place] [address] CBCon 03-25-2024 Erythrocyte distribution width (RBC) [Ratio] 14.6 % Normal 11.5-15.0 [facility] Comment on above: Performed By: #### L [id number] ####[facility] ([facility])[address] [place] [address] ERYTHROCYTE MEAN CORPUSCULAR HEMOGLOBIN CONCENTRATION (G/DL) BY AUTOMATED 31.3 g/dL Low 32.0-35.0 [facility] Comment on above: Performed By: #### L [id number] ####[facility] ([facility])[address] [place] [address] Hematocrit (Bld) [Volume fraction] 33.5 % Low 36.0-48.0 [facility] Comment on above: Performed By: #### L [id number] ####[facility] [place] [address] Hemoglobin (Bld) [Mass/Vol] 10.5 g/dL Low 12.0-15.0 [facility] Comment on above: Performed By: #### L [id number] ####[facility] [place] [address] MCH (RBC) [Entitic mass] 29.6 pg Normal 27.0-33.0 [facility] Comment on above: Performed By: #### L [id number] ####[facility] (BEAKER)[address] [place] [address] MCV (RBC) [Entitic vol] 94.4 fL Normal 82.0-98.0 [facility] Comment on above: Performed By: #### L [id number] ####[facility] (BEAKER)[address] [place] [address] PLATELETS (10*3/UL) IN BLOOD AUTOMATED COUNT 321 10*3/uL Normal 150-400 [facility] Comment on above: Performed By: #### L [id number] ####[facility] (BEAKER)[address] [place] [address] RBC (Bld) [#/Vol] 3.55 10*6/uL Low 3.80-5.00 [facility] Comment on above: Performed By: #### L [id number] ####[facility] (BEAKER)[address] [place] [address] WBC (Bld) [#/Vol] 8.51 10*3/uL Normal 4.00-10.60 [facility] Comment on above: Performed By: #### L [id number] ####[facility] (BEAKER)[address] [place] [address] Erythrocyte distribution width (RBC) [Ratio] 14.5 % Normal 11.5-15.0 [facility] Comment on above: Performed By: #### L [id number] ####[facility] (BEAKER)[address] [place] [address] ERYTHROCYTE MEAN CORPUSCULAR HEMOGLOBIN CONCENTRATION (G/DL) BY AUTOMATED 30.7 g/dL Low 32.0-35.0 [facility] Comment on above: Performed By: #### L [id number] ####[facility] (BEAKER)[address] [place] [address] Hematocrit (Bld) [Volume fraction] 28.3 % Low 36.0-48.0 [facility] Comment on above: Performed By: #### L [id number] ####[facility] (BEAKER)[address] [place] [address] Hemoglobin (Bld) [Mass/Vol] 8.7 g/dL Low 12.0-15.0 [facility] Comment on above: Performed By: #### L [id number] ####[facility] (BEAKER)[address] [place] [address] MCH (RBC) [Entitic mass] 28.8 pg Normal 27.0-33.0 [facility] Comment on above: Performed By: #### L [id number] ####[facility] ([facility])[address] [place] [address] MCV (RBC) [Entitic vol] 93.7 fL Normal 82.0-98.0 [facility] Comment on above: Performed By: #### L [id number] ####[facility] ([facility])[address] [place] [address] PLATELETS (10*3/UL) IN BLOOD AUTOMATED COUNT 350 10*3/uL Normal 150-400 [facility] Comment on above: Performed By: #### L [id number] ####[facility] ([facility])[address] [place] [address] RBC (Bld) [#/Vol] 3.02 10*6/uL Low 3.80-5.00 [facility] Comment on above: Performed By: #### L [id number] ####[facility] [place] [address] WBC (Bld) [#/Vol] 6.83 10*3/uL Normal 4.00-10.60 [facility] Comment on above: Performed By: #### L [id number] ####[facility] [place] [address] COMPREHENSIVE METABOLIC PANE Flash 03-25-2024 Albumin [Mass/Vol] 3.2 g/dL Low 3.5-5.7 [facility] Comment on above: Performed By: #### L [id number] ####[facility] (BEAKER)[address] [place] [address] ALP [Catalytic activity/Vol] 41 U/L Normal 34-104 [facility] Comment on above: Performed By: #### L [id number] ####[facility] ([facility]AKER)[address] [place] [address] ALT [Catalytic activity/Vol] 13 U/L Normal 7-52 [facility] Comment on above: Performed By: #### L [id number] ####[facility] (BEAKER)[address] [place] [address] Anion gap [Moles/Vol] 10 mmol/L Normal 7-20 [facility] Comment on above: Performed By: #### L [id number] ####[facility] (BEAKER)[address] [place] [address] AST [Catalytic activity/Vol] 19 U/L Normal 13-39 [facility] Comment on above: Performed By: #### L [id number] ####[facility] (BEAKER)[address] [place] [address] Bilirubin [Mass/Vol] 0.3 mg/dL Normal 0.3-1.0 [facility] Comment on above: Performed By: #### L [id number] ####[facility] (BEAKER)[address] [place] [address] Calcium [Mass/Vol] 8.6 mg/dL Normal 8.6-10.3 [facility] Comment on above: Performed By: #### L [id number] ####[facility] (BEAKER)[address] [place] [address] Chloride [Moles/Vol] 101 mmol/L Normal 98-107 [facility] Comment on above: Performed By: #### L [id number] ####[facility] ([facility]AKER)[address] [place] [address] CO2 [Moles/Vol] 30 mmol/L Normal 21-31 [facility] Comment on above: Performed By: #### L [id number] ####[facility] (BEAKER)[address] [place] [address] Creatinine [Mass/Vol] 0.49 mg/dL Low 0.60-1.20 [facility] Comment on above: Performed By: #### L [id number] ####[facility] ([facility])[address] [place] [address] GLOMERULAR FILTRATION RATE ML/MIN/1.73 SQ M.PREDICTED 104.5 mL/min/1.73m*2 Normal >60.0 [facility] Comment on above: Result Comment: The [facility]???s estimated glomerular filtration rate (eGFR) will no [...] of individuals. Performed By: #### L [id number] ####[facility] ([facility])[address] [place] [address] Glucose [Mass/Vol] 108 mg/dL High 70-100 [facility] Comment on above: Performed By: #### L [id number] ####[facility] ([facility])[address] [place] [address] Potassium [Moles/Vol] 4.2 mmol/L Normal 3.5-5.1 [facility] Comment on above: Performed By: #### L [id number] ####[facility] ([facility])[address] [place] [address] Protein [Mass/Vol] 6.5 g/dL Normal 6.0-8.3 [facility] Comment on above: Performed By: #### L [id number] ####[facility] ([facility])[address] [place] [address] Sodium [Moles/Vol] 137 mmol/L Normal 136-145 [facility] Comment on above: Performed By: #### L [id number] ####[facility] ([facility])[address] [place] [address] Urea nitrogen [Mass/Vol] 22 mg/dL Normal 7-25 [facility] Comment on above: Performed By: #### L [id number] ####[facility] ([facility])[address] [facility] [place] [address] UREA NITROGEN/CREATININE (MASS RATIO) IN SER/PLAS 44.9 Normal [facility] Comment on above: Performed By: #### L [id number] ####[facility] ([facility])[address] [place] [address] IMMUNOFIXATION ELECTROPHORES Monika 03-25-2024 IMMUNOFIXATION ELECTROPHORESIS [address] [facility] Comment on above: Performed By: #### L [id number] ####[facility] ([facility])[address] [place] [address] Magnesium [Mass/Vol] 1450 mg/dL Normal 591-1540 [facility] Comment on above: Performed By: #### L [id number] ####[facility] ([facility])[address] [place] [address] Magnesium [Mass/Vol] 633 mg/dL High 60-413 [facility] Comment on above: Performed By: #### L [id number] ####[facility] ([facility])[address] [place] [address] Magnesium [Mass/Vol] 116 mg/dL Normal 54-285 [facility] Comment on above: Performed By: #### L [id number] ####[facility] ([facility])[address] [place] [address] KAPPA / LAMBDA LIGHT CHAINS, FREEon 03-25-2024 IMMUNOGLOBULIN LIGHT CHAINS KAPPA/LAMBDA (MASS RATIO) IN SERUM 1.29 Normal 0.22-1.74 [facility] Comment on above: Result Comment: Test Performed by [employer] [address] [place], [place] [id number] - Released 03/25/2024 18:34 Performed By: #### L [id number] ####[employer] [id number] [place] [address] IMMUNOGLOBULIN LIGHT CHAINS.KAPPA (MG/DL) IN SERUM 51.3 mg/L High <20.8 [facility] Comment on above: Result Comment: Perf ormed using Diazyme reagent on [employer]. Results obtained with different assay methods cannot be used interchangeably. Performed By: #### L [id number] ####[facility] [id number] [place] [address] IMMUNOGLOBULIN LIGHT CHAINS.LAMBDA (MG/DL) IN SERUM 39.9 mg/L High 4.2-27.7 [facility] Comment on above: Result Comment: Perf ormed using Diazyme reagent on [employer]. Results obtained with different assay methods cannot be used interchangeably. Performed By: #### L [id number] ####[facility] [id number] [place] [address] MAGNESIUMon 03-25-2024 Magnesium [Mass/Vol] 1.8 mg/dL Low 1.9-2.7 [facility] Comment on above: Performed By: #### L [id number] ####[facility] (BEAKER)[address] [place] [address] PROTEIN ELECTROPHORESIS, SER UMon 03-25-2024 Protein [Mass/Vol] 7.1 g/dL Normal 6.0-8.3 [facility] Comment on above: Performed By: #### L [id number] ####[facility] (BEAKER)[address] [place] [address] PROTEIN FRACTION (INTERPRETATION) IN SER/PLAS BY ELECTROPHORESIS See attached report [facility] Comment on above: Performed By: #### L [id number] ####[facility] (BEAKER)[address] [place] [address] 30on 03-24-2024 30 Normal [facility] APTTon 03-24-2024 ACTIVATED PARTIAL THROMBOPLASTIN TIME IN PPP BY COAGULATION ASSAY 27.4 Seconds Normal 25.0-35.0 [facility] Comment on above: Order Comment: Basel ine aPTT before initiating heparin infusion. Result Comment: Clin ical significance of the APTT is questionable in the presence of heparin. Performed By: #### L [id number] ####[facility] [place] [address] CBC WITH AUTO DIFFERENTIALon 03-24-2024 Basophils (Bld) [#/Vol] 0.04 10*3/uL Normal 0.00-0.20 [facility] Comment on above: Performed By: #### L [id number] ####[facility] ([facility])[address] [place] [address] Basophils/100 WBC (Bld) 0.6 % Normal 0.0-1.0 [facility] Comment on above: Performed By: #### L [id number] ####[facility] ([facility])[address] [place] [address] Eosinophils (Bld) [#/Vol] 0.25 10*3/uL Normal 0.00-0.50 [facility] Comment on above: Performed By: #### L [id number] ####[facility] ([facility])[address] [place] [address] Eosinophils/100 WBC (Bld) 3.5 % Normal 0.0-6.0 [facility] Comment on above: Performed By: #### L [id number] ####[facility] ([facility])[address] [place] [address] Erythrocyte distribution width (RBC) [Ratio] 14.5 % Normal 11.5-15.0 [facility] Comment on above: Performed By: #### L [id number] ####[facility] ([facility])[address] [place] [address] ERYTHROCYTE MEAN CORPUSCULAR HEMOGLOBIN CONCENTRATION (G/DL) BY AUTOMATED 30.7 g/dL Low 32.0-35.0 [facility] Comment on above: Performed By: #### L [id number] ####[facility] ([facility])[address] [place] [address] Hematocrit (Bld) [Volume fraction] 27.4 % Low 36.0-48.0 [facility] Comment on above: Performed By: #### L [id number] ####[facility] (BEAKER)[address] [place] [address] Hemoglobin (Bld) [Mass/Vol] 8.4 g/dL Low 12.0-15.0 [facility] Comment on above: Performed By: #### L [id number] ####[facility] (BEAKER)[address] [place] [address] Immature granulocytes (Bld) [#/Vol] 0.04 10*3/uL Normal 0.00-0.20 [facility] Comment on above: Performed By: #### L [id number] ####[facility] (BEAKER)[address] [place] [address] Immature granulocytes/100 WBC (Bld) 0.6 % Normal 0.0-1.0 [facility] Comment on above: Performed By: #### L [id number] ####[facility] [place] [address] Lymphocytes (Bld) [#/Vol] 0.93 10*3/uL Low 1.20-4.00 [facility] Comment on above: Performed By: #### L [id number] ####[facility] (BEAKER)[address] [place] [address] Lymphocytes/100 WBC (Bld) 12.9 % Low 20.0-45.0 [facility] Comment on above: Performed By: #### L [id number] ####[facility] (BEAKER)[address] [place] [address] MCH (RBC) [Entitic mass] 29.5 pg Normal 27.0-33.0 [facility] Comment on above: Performed By: #### L [id number] ####[facility] (BEAKER)[address] [place] [address] MCV (RBC) [Entitic vol] 96.1 fL Normal 82.0-98.0 [facility] Comment on above: Performed By: #### L [id number] ####[facility] (BEAKER)[address] [place] [address] Monocytes (Bld) [#/Vol] 0.57 10*3/uL Normal 0.10-1.00 [facility] Comment on above: Performed By: #### L [id number] ####[facility] (BEAKER)[address] [place] [address] Monocytes/100 WBC (Bld) 7.9 % Normal 5.0-12.0 [facility] Comment on above: Performed By: #### L [id number] ####[facility] (BEAKER)[address] [place] [address] Neutrophils (Bld) [#/Vol] 5.39 10*3/uL Normal 1.60-7.60 [facility] Comment on above: Performed By: #### L [id number] ####[facility] (BEAKER)[address] [place] [address] Neutrophils/100 WBC (Bld) 74.5 % High 40.0-72.0 [facility] Comment on above: Performed By: #### L [id number] ####[facility] [place] [address] NRBC (PER 100 WBCS) BY AUTOMATED COUNT 0.0 % Normal 0 [facility] Comment on above: Performed By: #### L [id number] ####[facility] (BEAKER)[address] [place] [address] PLATELETS (10*3/UL) IN BLOOD AUTOMATED COUNT 303 10*3/uL Normal 150-400 [facility] Comment on above: Performed By: #### L [id number] ####[facility] (BEAKER)[address] [place] [address] RBC (Bld) [#/Vol] 2.85 10*6/uL Low 3.80-5.00 [facility] Comment on above: Performed By: #### L [id number] ####[facility] (BEAKER)[address] [place] [address] WBC (Bld) [#/Vol] 7.22 10*3/uL Normal 4.00-10.60 [facility] Comment on above: Performed By: #### L [id number] ####[facility] [place] [address] COMPREHENSIVE METABOLIC PANE Flash 03-24-2024 Albumin [Mass/Vol] 3.0 g/dL Low 3.5-5.7 [facility] Comment on above: Performed By: #### L [id number] ####[facility] ([facility])[address] [place] [address] ALP [Catalytic activity/Vol] 39 U/L Normal 34-104 [facility] Comment on above: Performed By: #### L [id number] ####[facility] ([facility])[address] [place] [address] ALT [Catalytic activity/Vol] 13 U/L Normal 7-52 [facility] Comment on above: Performed By: #### L [id number] ####[facility] ([facility])[address] [place] [address] Anion gap [Moles/Vol] 8 mmol/L Normal 7-20 [facility] Comment on above: Performed By: #### L [id number] ####[facility] ([facility])[address] [place] [address] AST [Catalytic activity/Vol] 20 U/L Normal 13-39 [facility] Comment on above: Performed By: #### L [id number] ####[facility] ([facility])[address] [place] [address] Bilirubin [Mass/Vol] 0.3 mg/dL Normal 0.3-1.0 [facility] Comment on above: Performed By: #### L [id number] ####[facility] ([facility])[address] [place] [address] Calcium [Mass/Vol] 8.6 mg/dL Normal 8.6-10.3 [facility] Comment on above: Performed By: #### L [id number] ####[facility] [place] [address] Chloride [Moles/Vol] 106 mmol/L Normal 98-107 [facility] Comment on above: Performed By: #### L [id number] ####[facility] ([facility])[address] [place] [address] CO2 [Moles/Vol] 30 mmol/L Normal 21-31 [facility] Comment on above: Performed By: #### L [id number] ####[facility] ([facility])[address] [place] [address] Creatinine [Mass/Vol] 0.42 mg/dL Low 0.60-1.20 [facility] Comment on above: Performed By: #### L [id number] ####[facility] ([facility])[address] [place] [address] GLOMERULAR FILTRATION RATE ML/MIN/1.73 SQ M.PREDICTED 108.5 mL/min/1.73m*2 Normal >60.0 [facility] Comment on above: Result Comment: [facility]???s estimated glomerular filtration rate (eGFR) will no [...] of individuals. Performed By: #### L [id number] ####[facility] [place] [address] Glucose [Mass/Vol] 102 mg/dL High 70-100 [facility] Comment on above: Performed By: #### L [id number] ####[facility] [place] [address] Potassium [Moles/Vol] 3.9 mmol/L Normal 3.5-5.1 [facility] Comment on above: Performed By: #### L [id number] ####[facility] [place] [address] Protein [Mass/Vol] 6.2 g/dL Normal 6.0-8.3 [facility] Comment on above: Performed By: #### L [id number] ####[facility] [place] [address] Sodium [Moles/Vol] 140 mmol/L Normal 136-145 [facility] Comment on above: Performed By: #### L [id number] ####[facility] [place] [address] Urea nitrogen [Mass/Vol] 28 mg/dL High 7-25 [facility] Comment on above: Performed By: #### L [id number] ####[facility] ([facility])[address] [place] [address] UREA NITROGEN/CREATININE (MASS RATIO) IN SER/PLAS 66.7 Normal [facility] Comment on above: Performed By: #### L [id number] ####[facility] ([facility])[address] [place] [address] PLATELET COUNTon 03-24-2024 PLATELETS (10*3/UL) IN BLOOD AUTOMATED COUNT 345 10*3/uL Normal 150-400 [facility] Comment on above: Performed By: #### L [id number] ####[facility] ([facility])[address] [place] [address] CBCon 03-23-2024 Erythrocyte distribution width (RBC) [Ratio] 14.1 % Normal 11.5-15.0 [facility] Comment on above: Performed By: #### L [id number] ####[facility] ([facility])[address] [place] [address] ERYTHROCYTE MEAN CORPUSCULAR HEMOGLOBIN CONCENTRATION (G/DL) BY AUTOMATED 30.9 g/dL Low 32.0-35.0 [facility] Comment on above: Performed By: #### L [id number] ####[facility] [place] [address] Hematocrit (Bld) [Volume fraction] 31.4 % Low 36.0-48.0 [facility] Comment on above: Performed By: #### L [id number] ####[facility] (BEAKER)[address] [place] [address] Hemoglobin (Bld) [Mass/Vol] 9.7 g/dL Low 12.0-15.0 [facility] Comment on above: Performed By: #### L [id number] ####[facility] (BEAKER)[address] [place] [address] MCH (RBC) [Entitic mass] 29.4 pg Normal 27.0-33.0 [facility] Comment on above: Performed By: #### L [id number] ####[facility] (BEAKER)[address] [place] [address] MCV (RBC) [Entitic vol] 95.2 fL Normal 82.0-98.0 [facility] Comment on above: Performed By: #### L [id number] ####[facility] (BEAKER)[address] [place] [address] PLATELETS (10*3/UL) IN BLOOD AUTOMATED COUNT 266 10*3/uL Normal 150-400 [facility] Comment on above: Performed By: #### L [id number] ####[facility] (BEAKER)[address] [place] [address] RBC (Bld) [#/Vol] 3.30 10*6/uL Low 3.80-5.00 [facility] Comment on above: Performed By: #### L [id number] ####[facility] (BEAKER)[address] [place] [address] WBC (Bld) [#/Vol] 5.54 10*3/uL Normal 4.00-10.60 [facility] Comment on above: Performed By: #### L [id number] ####[facility] (BEAKER)[address] [place] [address] COMPREHENSIVE METABOLIC PANE Flash 03-23-2024 Albumin [Mass/Vol] 3.0 g/dL Low 3.5-5.7 [facility] Comment on above: Performed By: #### L [id number] ####[facility] (BEAKER)[address] [place] [address] ALP [Catalytic activity/Vol] 38 U/L Normal 34-104 [facility] Comment on above: Performed By: #### L [id number] ####[facility] [place] [address] ALT [Catalytic activity/Vol] 11 U/L Normal 7-52 [facility] Comment on above: Performed By: #### L [id number] ####[facility] [place] [address] Anion gap [Moles/Vol] 13 mmol/L Normal 7-20 [facility] Comment on above: Performed By: #### L [id number] ####[facility] [place] [address] AST [Catalytic activity/Vol] 21 U/L Normal 13-39 [facility] Comment on above: Performed By: #### L [id number] ####[facility] [place] [address] Bilirubin [Mass/Vol] 0.3 mg/dL Normal 0.3-1.0 [facility] Comment on above: Performed By: #### L [id number] ####[facility] [place] [address] Calcium [Mass/Vol] 8.6 mg/dL Normal 8.6-10.3 [facility] Comment on above: Performed By: #### L [id number] ####[facility] [place] [address] Chloride [Moles/Vol] 107 mmol/L Normal 98-107 [facility] Comment on above: Performed By: #### L [id number] ####[facility] [place] [address] CO2 [Moles/Vol] 23 mmol/L Normal 21-31 [facility] Comment on above: Performed By: #### L [id number] ####[facility] ([facility])[address] [place] [address] Creatinine [Mass/Vol] 0.46 mg/dL Low 0.60-1.20 [facility] Comment on above: Performed By: #### L [id number] ####[facility] ([facility])[address] [place] [address] GLOMERULAR FILTRATION RATE ML/MIN/1.73 SQ M.PREDICTED 106.1 mL/min/1.73m*2 Normal >60.0 [facility] Comment on above: Result Comment: [facility]???s estimated glomerular filtration rate (eGFR) will no [...] of individuals. Performed By: #### L [id number] ####[facility] ([facility])[address] [place] [address] Glucose [Mass/Vol] 93 mg/dL Normal 70-100 [facility] Comment on above: Performed By: #### L [id number] ####[facility] ([facility])[address] [place] [address] Potassium [Moles/Vol] 3.8 mmol/L Normal 3.5-5.1 [facility] Comment on above: Performed By: #### L [id number] ####[facility] ([facility])[address] [place] [address] Protein [Mass/Vol] 6.2 g/dL Normal 6.0-8.3 [facility] Comment on above: Performed By: #### L [id number] ####[facility] [facility])[address] [place] [address] Sodium [Moles/Vol] 139 mmol/L Normal 136-145 [facility] Comment on above: Performed By: #### L [id number] ####[facility] ([facility])[address] [place] [address] Urea nitrogen [Mass/Vol] 28 mg/dL High 7-25 [facility] Comment on above: Performed By: #### L [id number] ####[facility] ([facility])[address] [place] [address] UREA NITROGEN/CREATININE (MASS RATIO) IN SER/PLAS 60.9 Normal [facility] Comment on above: Performed By: #### L [id number] ####[facility] ([facility])[address] [place] [address] CONSULTon 03-23-2024 CONSULT Normal [facility] CT ABDOMEN PELVIS W AND WO I V CONTRASTon 03-23-2024 CT ABDOMEN PELVIS W AND WO IV CONTRAST Invalid Interpretation Code [facility] CT CHEST W IV CONTRASTon CT CHEST W IV CONTRAST Invalid Interpretation Code [facility] MAGNESIUMon 03-23-2024 Magnesium [Mass/Vol] 1.7 mg/dL Low 1.9-2.7 [facility] Comment on above: Performed By: #### L [id number] ####[facility] ([facility])[address] [place] [address] PHOSPHORUSon 03-23-2024 Magnesium [Mass/Vol] 3.6 mg/dL Normal 2.5-5.0 [facility] Comment on above: Performed By: #### L [id number] ####[facility] ([facility])[address] [place] [address] VENOUS BLOOD GAS WITH IONIZE D CALCIUMon 03-23-2024 Base excess Calc (BldV) [Moles/Vol] 4.5 mmol/L Normal [facility] Comment on above: Performed By: #### L [id number] ####[facility] [id number] [place] [address] [place] CALCIUM IONIZED (MMOL/L) IN BLOOD 1.18 mmol/L Normal 1.15-1.33 [facility] Comment on above: Performed By: #### L [id number] ####[facility] [id number] [place] [address] [facility] CO2 (BldV) [Partial pressure] 39 mm[Hg] Low 40-50 [facility] Comment on above: Performed By: #### L [id number] ####[facility] [id number] [place] [address] [place] HCO3 (Bld) [Moles/Vol] 28.4 mmol/L Normal [facility] Comment on above: Performed By: #### L [id number] ####[facility] [id number] [place] [address] [facility] Oxygen (BldV) [Partial pressure] 62 mm[Hg] High 35-45 [facility] Comment on above: Performed By: #### L [id number] ####[facility] [id number] [place] [address] [place] OXYGEN SATURATION (%) IN VENOUS BLOOD 92.7 % High 65.0-75.0 [facility] Comment on above: Performed By: #### L [id number] ####[facility] [id number] [place] [address] [place] PH OF VENOUS BLOOD 7.47 High 7.31-7.41 [facility] Comment on above: Performed By: #### L [id number] ####[facility] [id number] [place] [address] [place] 30on 03-22-2024 30 Normal [facility] 30 Normal [facility] BASIC METABOLIC PANELon Anion gap [Moles/Vol] 12 mmol/L Normal 7-20 [facility] Comment on above: Performed By: #### L [id number] ####[facility] ([facility])[address] [place] [address] Calcium [Mass/Vol] 8.9 mg/dL Normal 8.6-10.3 [facility] Comment on above: Performed By: #### L [id number] ####[facility] ([facility])[address] [place] [address] Chloride [Moles/Vol] 105 mmol/L Normal 98-107 [facility] Comment on above: Performed By: #### L [id number] ####[facility] [place] [address] CO2 [Moles/Vol] 26 mmol/L Normal 21-31 [facility] Comment on above: Performed By: #### L [id number] ####[facility] ([facility])[address] [place] [address] Creatinine [Mass/Vol] 0.44 mg/dL Low 0.60-1.20 [facility] Comment on above: Performed By: #### L [id number] ####[facility] ([facility])[address] [place] [address] GLOMERULAR FILTRATION RATE ML/MIN/1.73 SQ M.PREDICTED 107.3 mL/min/1.73m*2 Normal >60.0 [facility] Comment on above: Result Comment: [facility]???s estimated glomerular filtration rate (eGFR) will no [...] of individuals. Performed By: #### L [id number] ####[facility] [place] [address] Glucose [Mass/Vol] 92 mg/dL Normal 70-100 [facility] Comment on above: Performed By: #### L [id number] ####[facility] ([facility])[address] [place] [address] Potassium [Moles/Vol] 3.7 mmol/L Normal 3.5-5.1 [facility] Comment on above: Performed By: #### L [id number] ####[facility] ([facility])[address] [place] [address] Sodium [Moles/Vol] 139 mmol/L Normal 136-145 [facility] Comment on above: Performed By: #### L [id number] ####[facility] ([facility])[address] [place] [address] Urea nitrogen [Mass/Vol] 26 mg/dL High 7-25 [facility] Comment on above: Performed By: #### L [id number] ####[facility] ([facility])[address] [place] [address] UREA NITROGEN/CREATININE (MASS RATIO) IN SER/PLAS 59.1 Normal [facility] Comment on above: Performed By: #### L [id number] ####[facility] ([facility])[address] [place] [address] CBCon 03-22-2024 Erythrocyte distribution width (RBC) [Ratio] 13.9 % Normal 11.5-15.0 [facility] Comment on above: Performed By: #### L [id number] ####[facility] ([facility])[address] [place] [address] ERYTHROCYTE MEAN CORPUSCULAR HEMOGLOBIN CONCENTRATION (G/DL) BY AUTOMATED 31.4 g/dL Low 32.0-35.0 [facility] Comment on above: Performed By: #### L [id number] ####[facility] ([facility])[address] [place] [address] Hematocrit (Bld) [Volume fraction] 32.8 % Low 36.0-48.0 [facility] Comment on above: Performed By: #### L [id number] ####[facility] ([facility])[address] [place] [address] Hemoglobin (Bld) [Mass/Vol] 10.3 g/dL Low 12.0-15.0 [facility] Comment on above: Performed By: #### L [id number] ####[facility] ([facility])[address] [place] [address] MCH (RBC) [Entitic mass] 28.9 pg Normal 27.0-33.0 [facility] Comment on above: Performed By: #### L [id number] ####[facility] ([facility])[address] [place] [address] MCV (RBC) [Entitic vol] 91.9 fL Normal 82.0-98.0 [facility] Comment on above: Performed By: #### L [id number] ####[facility] ([facility])[address] [place] [address] PLATELETS (10*3/UL) IN BLOOD AUTOMATED COUNT 313 10*3/uL Normal 150-400 [facility] Comment on above: Performed By: #### L [id number] ####[facility] ([facility])[address] [place] [address] RBC (Bld) [#/Vol] 3.57 10*6/uL Low 3.80-5.00 [facility] Comment on above: Performed By: #### L [id number] ####[facility] ([facility])[address] [place] [address] WBC (Bld) [#/Vol] 5.94 10*3/uL Normal 4.00-10.60 [facility] Comment on above: Performed By: #### L [id number] ####[facility] ([facility])[address] [place] [address] CONSULTon 03-22-2024 CONSULT Normal [facility] LACTIC ACID WITH 4 HOUR REFL EXon 03-22-2024 LACTATE (MMOL/L) IN SER/PLAS 1.3 mmol/L Normal 0.5-2.2 [facility] Comment on above: Result Comment: M-CH EMISTRY SPECIMEN MODERATELY HEMOLYZED RESULTS MAY NOT BE ACCURATE Performed By: #### L [id number] ####[facility] ([facility])[address] [place] [address] MAGNESIUMon 03-22-2024 Magnesium [Mass/Vol] 1.9 mg/dL Normal 1.9-2.7 [facility] Comment on above: Performed By: #### L [id number] ####[facility] ([facility])[address] [place] [address] MR CERVICAL SPINE W AND WO C ONTRASTon 03-22-2024 MR CERVICAL SPINE W AND WO CONTRAST Invalid Interpretation Code [facility] MR LUMBAR SPINE W AND WO CON TRASTon 03-22-2024 MR LUMBAR SPINE W AND WO CONTRAST Invalid Interpretation Code [facility] MR THORACIC SPINE W AND WO C ONTRASTon 03-22-2024 MR THORACIC SPINE W AND WO CONTRAST Invalid Interpretation Code [facility] PHOSPHORUSon 03-22-2024 Magnesium [Mass/Vol] 3.5 mg/dL Normal 2.5-5.0 [facility] Comment on above: Performed By: #### L [id number] ####[facility] ([facility])[address] [place] [address] 30on 03-21-2024 30 Normal [facility] 30 Normal [facility] BASIC METABOLIC PANELon Anion gap [Moles/Vol] 13 mmol/L Normal 7-20 [facility] Comment on above: Performed By: #### L [id number] ####[facility] ([facility])[address] [place] [address] Calcium [Mass/Vol] 8.8 mg/dL Normal 8.6-10.3 [facility] Comment on above: Performed By: #### L [id number] ####[facility] ([facility])[address] [place] [address] Chloride [Moles/Vol] 104 mmol/L Normal 98-107 [facility] Comment on above: Performed By: #### L [id number] ####[facility] ([facility])[address] [place] [address] CO2 [Moles/Vol] 27 mmol/L Normal 21-31 [facility] Comment on above: Performed By: #### L [id number] ####[facility] ([facility])[address] [place] [address] Creatinine [Mass/Vol] 0.48 mg/dL Low 0.60-1.20 [facility] Comment on above: Performed By: #### L [id number] ####[facility] ([facility])[address] [place] [address] GLOMERULAR FILTRATION RATE ML/MIN/1.73 SQ M.PREDICTED 105.0 mL/min/1.73m*2 Normal >60.0 [facility] Comment on above: Result Comment: [facility]???s estimated glomerular filtration rate (eGFR) will no [...] of individuals. Performed By: #### L [id number] ####[facility] ([facility])[address] [place] [address] Glucose [Mass/Vol] 108 mg/dL High 70-100 [facility] Comment on above: Performed By: #### L [id number] ####[facility] ([facility])[address] [place] [address] Potassium [Moles/Vol] 3.9 mmol/L Normal 3.5-5.1 [facility] Comment on above: Performed By: #### L [id number] ####[facility] [place] [address] Sodium [Moles/Vol] 140 mmol/L Normal 136-145 [facility] Comment on above: Performed By: #### L [id number] ####[facility] [place] [address] Urea nitrogen [Mass/Vol] 23 mg/dL Normal 7-25 [facility] Comment on above: Performed By: #### L [id number] ####[facility] [place] [address] UREA NITROGEN/CREATININE (MASS RATIO) IN SER/PLAS 47.9 Normal [facility] Comment on above: Performed By: #### L [id number] ####[facility] ([facility])[address] [place] [address] CBCon 03-21-2024 Erythrocyte distribution width (RBC) [Ratio] 13.7 % Normal 11.5-15.0 [facility] Comment on above: Performed By: #### L [id number] ####[facility] ([facility])[address] [place] [address] ERYTHROCYTE MEAN CORPUSCULAR HEMOGLOBIN CONCENTRATION (G/DL) BY AUTOMATED 32.4 g/dL Normal 32.0-35.0 [facility] Comment on above: Performed By: #### L [id number] ####[facility] ([facility])[address], [place] [address] Hematocrit (Bld) [Volume fraction] 32.4 % Low 36.0-48.0 [facility] Comment on above: Performed By: #### L [id number] ####[facility] [address] Hemoglobin (Bld) [Mass/Vol] 10.5 g/dL Low 12.0-15.0 [facility] Comment on above: Performed By: #### L [id number] ####[facility], [place] [address] MCH (RBC) [Entitic mass] 29.2 pg Normal 27.0-33.0 [facility] Comment on above: Performed By: #### L [id number] ####[facility] [place] [address] MCV (RBC) [Entitic vol] 90.3 fL Normal 82.0-98.0 [facility] Comment on above: Performed By: #### L [id number] ####[facility] ([facility])[address] [place] [address] PLATELETS (10*3/UL) IN BLOOD AUTOMATED COUNT 288 10*3/uL Normal 150-400 [facility] Comment on above: Performed By: #### L [id number] ####[facility] ([facility])[address] [place] [address] RBC (Bld) [#/Vol] 3.59 10*6/uL Low 3.80-5.00 [facility] Comment on above: Performed By: #### L [id number] ####[facility] ([facility])[address] [place] [address] WBC (Bld) [#/Vol] 7.45 10*3/uL Normal 4.00-10.60 [facility] Comment on above: Performed By: #### L [id number] ####[facility] ([facility])[address] [place] [address] CONSULTon 03-21-2024 CONSULT Normal [facility] MAGNESIUMon 03-21-2024 Magnesium [Mass/Vol] 1.9 mg/dL Normal 1.9-2.7 [facility] Comment on above: Performed By: #### L [id number] ####[facility] ([facility])[address] [place] [address] MR BRAIN W AND WO CONTRASTon 03-21-2024 MR BRAIN W AND WO CONTRAST Invalid Interpretation Code [facility] PHOSPHORUSon 03-21-2024 Magnesium [Mass/Vol] 3.1 mg/dL Normal 2.5-5.0 [facility] Comment on above: Performed By: #### L [id number] ####[facility] ([facility])[address] [place] [address] 30on 03-20-2024 30 Normal [facility] BASIC METABOLIC PANELon 09-0 Anion gap [Moles/Vol] 15 mmol/L Normal 7-20 [facility] Comment on above: Performed By: #### L [id number] ####[facility] [place] [address] Calcium [Mass/Vol] 8.7 mg/dL Normal 8.6-10.3 [facility] Comment on above: Performed By: #### L [id number] ####[facility] [place] [address] Chloride [Moles/Vol] 102 mmol/L Normal 98-107 [facility] Comment on above: Performed By: #### L [id number] ####[facility] [place] [address] CO2 [Moles/Vol] 25 mmol/L Normal 21-31 [facility] Comment on above: Performed By: #### L [id number] ####[facility] [place] [address] Creatinine [Mass/Vol] 0.39 mg/dL Low 0.60-1.20 [facility] Comment on above: Performed By: #### L [id number] ####[facility] [place] [address] GLOMERULAR FILTRATION RATE ML/MIN/1.73 SQ M.PREDICTED 110.4 mL/min/1.73m*2 Normal >60.0 [facility] Comment on above: Result Comment: [facility]???s estimated glomerular filtration rate (eGFR) will no [...] of individuals. Performed By: #### L [id number] ####[facility] ([facility])[address] [place] [address] Glucose [Mass/Vol] 85 mg/dL Normal 70-100 [facility] Comment on above: Performed By: #### L [id number] ####[facility] [place] [address] Potassium [Moles/Vol] 3.5 mmol/L Normal 3.5-5.1 [facility] Comment on above: Performed By: #### L [id number] ####[facility] [place] [address] Sodium [Moles/Vol] 138 mmol/L Normal 136-145 [facility] Comment on above: Performed By: #### L [id number] ####[facility] [place] [address] Urea nitrogen [Mass/Vol] 8 mg/dL Normal 7-25 [facility] Comment on above: Performed By: #### L [id number] ####[facility] ([facility])[address] [place] [address] UREA NITROGEN/CREATININE (MASS RATIO) IN SER/PLAS 20.5 Normal [facility] Comment on above: Performed By: #### L [id number] ####[facility] [place] [address] CBCon 03-20-2024 Erythrocyte distribution width (RBC) [Ratio] 13.9 % Normal 11.5-15.0 [facility] Comment on above: Performed By: #### L [id number] ####[facility] [place] [address] ERYTHROCYTE MEAN CORPUSCULAR HEMOGLOBIN CONCENTRATION (G/DL) BY AUTOMATED 32.1 g/dL Normal 32.0-35.0 [facility] Comment on above: Performed By: #### L [id number] ####[facility] [place] [address] Hematocrit (Bld) [Volume fraction] 32.1 % Low 36.0-48.0 [facility] Comment on above: Performed By: #### L [id number] ####[facility] ([facility])[address] [place] [address] Hemoglobin (Bld) [Mass/Vol] 10.3 g/dL Low 12.0-15.0 [facility] Comment on above: Performed By: #### L [id number] ####[facility] ([facility])[address] [place] [address] MCH (RBC) [Entitic mass] 29.5 pg Normal 27.0-33.0 [facility] Comment on above: Performed By: #### L [id number] ####[facility] ([facility])[address] [place] [address] MCV (RBC) [Entitic vol] 92.0 fL Normal 82.0-98.0 [facility] Comment on above: Performed By: #### L [id number] ####[facility] ([facility])[address] [place] [address] PLATELETS (10*3/UL) IN BLOOD AUTOMATED COUNT 243 10*3/uL Normal 150-400 [facility] Comment on above: Performed By: #### L [id number] ####[facility] ([facility])[address] [place] [address] RBC (Bld) [#/Vol] 3.49 10*6/uL Low 3.80-5.00 [facility] Comment on above: Performed By: #### L [id number] ####[facility] ([facility])[address] [place] [address] WBC (Bld) [#/Vol] 6.86 10*3/uL Normal 4.00-10.60 [facility] Comment on above: Performed By: #### L [id number] ####[facility] [place] [address] MAGNESIUMon 03-20-2024 Magnesium [Mass/Vol] 1.8 mg/dL Low 1.9-2.7 [facility] Comment on above: Performed By: #### L [id number] ####[facility] [place] [address] PHOSPHORUSon 03-20-2024 Magnesium [Mass/Vol] 2.6 mg/dL Normal 2.5-5.0 [facility] Comment on above: Performed By: #### L [id number] ####[facility] ([facility])[address] [place] [address] BASIC METABOLIC PANELon Anion gap [Moles/Vol] 10 mmol/L Normal 7-20 [facility] Comment on above: Performed By: #### L [id number] ####[facility] [place] [address] Calcium [Mass/Vol] 8.1 mg/dL Low 8.6-10.3 [facility] Comment on above: Performed By: #### L [id number] ####[facility] [place], [place] [address] Chloride [Moles/Vol] 107 mmol/L Normal 98-107 [facility] Comment on above: Performed By: #### L [id number] ####[facility] [place] [address] CO2 [Moles/Vol] 27 mmol/L Normal 21-31 [facility] Comment on above: Performed By: #### L [id number] ####[facility] [place] [address] Creatinine [Mass/Vol] 0.41 mg/dL Low 0.60-1.20 [facility] Comment on above: Performed By: #### L [id number] ####[facility] ([facility])[address] [place] [address] GLOMERULAR FILTRATION RATE ML/MIN/1.73 SQ M.PREDICTED 109.1 mL/min/1.73m*2 Normal >60.0 [facility] Comment on above: Result Comment: [facility]???s estimated glomerular filtration rate (eGFR) will no [...] of individuals. Performed By: #### L [id number] ####[facility] ([facility])[address] [place] [address] Glucose [Mass/Vol] 107 mg/dL High 70-100 [facility] Comment on above: Performed By: #### L [id number] ####[facility] [place] [address] Potassium [Moles/Vol] 3.6 mmol/L Normal 3.5-5.1 [facility] Comment on above: Performed By: #### L [id number] ####[facility] ([facility])[address] [place] [address] Sodium [Moles/Vol] 140 mmol/L Normal 136-145 [facility] Comment on above: Performed By: #### L [id number] ####[facility] ([facility])[address] [place] [address] Urea nitrogen [Mass/Vol] 6 mg/dL Low 7-25 [facility] Comment on above: Performed By: #### L [id number] ####[facility] ([facility])[address] [place] [address] UREA NITROGEN/CREATININE (MASS RATIO) IN SER/PLAS 14.6 Normal [facility] Comment on above: Performed By: #### L [id number] ####[facility] ([facility])[address] [place] [address] CBCon 03-19-2024 Erythrocyte distribution width (RBC) [Ratio] 14.6 % Normal 11.5-15.0 [facility] Comment on above: Performed By: #### L [id number] ####[facility] ([facility])[address] [place] [address] ERYTHROCYTE MEAN CORPUSCULAR HEMOGLOBIN CONCENTRATION (G/DL) BY AUTOMATED 31.6 g/dL Low 32.0-35.0 [facility] Comment on above: Performed By: #### L [id number] ####[facility] [place] [address] Hematocrit (Bld) [Volume fraction] 28.2 % Low 36.0-48.0 [facility] Comment on above: Performed By: #### L [id number] ####[facility] [place] [address] Hemoglobin (Bld) [Mass/Vol] 8.9 g/dL Low 12.0-15.0 [facility] Comment on above: Performed By: #### L [id number] ####[facility] [place] [address] MCH (RBC) [Entitic mass] 29.3 pg Normal 27.0-33.0 [facility] Comment on above: Performed By: #### L [id number] ####[facility] ([facility])[address] [place] [address] MCV (RBC) [Entitic vol] 92.8 fL Normal 82.0-98.0 [facility] Comment on above: Performed By: #### L [id number] ####[facility] ([facility])[address] [place] [address] PLATELETS (10*3/UL) IN BLOOD AUTOMATED COUNT 212 10*3/uL Normal 150-400 [facility] Comment on above: Performed By: #### L [id number] ####[facility] (BEAKER)[address] [place] [address] RBC (Bld) [#/Vol] 3.04 10*6/uL Low 3.80-5.00 [facility] Comment on above: Performed By: #### L [id number] ####[facility] [place] [address] WBC (Bld) [#/Vol] 6.98 10*3/uL Normal 4.00-10.60 [facility] Comment on above: Performed By: #### L [id number] ####[facility] ([facility] [facility] [place] [address] MAGNESIUMon 03-19-2024 Magnesium [Mass/Vol] 1.8 mg/dL Low 1.9-2.7 [facility] Comment on above: Performed By: #### L [id number] ####[facility] ([facility])[address] [place] [address] PHOSPHORUSon 03-19-2024 Magnesium [Mass/Vol] 2.6 mg/dL Normal 2.5-5.0 [facility] Comment on above: Performed By: #### L [id number] ####[facility] ([facility])[address] [place] [address] [id number] 2023 ALPHA-1 ANTITRYPSIN 294 mg/dL High 90-200 [facility] Comment on above: Result Comment: To c onvert to umol/L, multiply mg/dL by 0.185Performed By: [facility] [place], [place] [address]Heghhwknvw Director: Tip Hathaway MD, PhDCLIA Number: [id number] Performed By: #### L [id number] ####[facility] ([facility])[address] [place] [address] BASIC METABOLIC PANELon Anion gap [Moles/Vol] 14 mmol/L Normal 7-20 [facility] Comment on above: Performed By: #### L [id number] ####[facility] [place] [address] Calcium [Mass/Vol] 7.9 mg/dL Low 8.6-10.3 [facility] Comment on above: Performed By: #### L [id number] ####[facility] [place] [address] Chloride [Moles/Vol] 108 mmol/L High 98-107 [facility] Comment on above: Performed By: #### L [id number] ####[facility] ([facility])[address] [place] [address] CO2 [Moles/Vol] 23 mmol/L Normal 21-31 [facility] Comment on above: Performed By: #### L [id number] ####[facility] ([facility])[address] [place] [address] Creatinine [Mass/Vol] 0.47 mg/dL Low 0.60-1.20 [facility] Comment on above: Performed By: #### L [id number] ####[facility] ([facility])[address] [place] [address] GLOMERULAR FILTRATION RATE ML/MIN/1.73 SQ M.PREDICTED 105.6 mL/min/1.73m*2 Normal >60.0 [facility] Comment on above: Result Comment: [facility]???s estimated glomerular filtration rate (eGFR) will no [...] of individuals. Performed By: #### L [id number] ####[facility] [place] [address] Glucose [Mass/Vol] 103 mg/dL High 70-100 [facility] Comment on above: Performed By: #### L [id number] ####[facility] ([facility])[address] [place] [address] Potassium [Moles/Vol] 3.6 mmol/L Normal 3.5-5.1 [facility] Comment on above: Performed By: #### L [id number] ####[facility] [place] [address] Sodium [Moles/Vol] 141 mmol/L Normal 136-145 [facility] Comment on above: Performed By: #### L [id number] ####[facility] [place] [address] Urea nitrogen [Mass/Vol] 6 mg/dL Low 7-25 [facility] Comment on above: Performed By: #### L [id number] ####[facility] ([facility])[address] [place] [address] UREA NITROGEN/CREATININE (MASS RATIO) IN SER/PLAS 12.8 Normal [facility] Comment on above: Performed By: #### L [id number] ####[facility] ([facility])[address] [place] [address] Anion gap [Moles/Vol] 11 mmol/L Normal 7-20 [facility] Comment on above: Performed By: #### L [id number] ####[facility] ([facility])[address] [place] [address] Calcium [Mass/Vol] 8.1 mg/dL Low 8.6-10.3 [facility] Comment on above: Performed By: #### L [id number] ####[facility] [place] [address] Chloride [Moles/Vol] 108 mmol/L High 98-107 [facility] Comment on above: Performed By: #### L [id number] ####[facility] ([facility])[address] [place] [address] CO2 [Moles/Vol] 23 mmol/L Normal 21-31 [facility] Comment on above: Performed By: #### L [id number] ####[facility] ([facility])[address] [place] [address] Creatinine [Mass/Vol] 0.44 mg/dL Low 0.60-1.20 [facility] Comment on above: Performed By: #### L [id number] ####[facility] ([facility])[address] [place] [address] GLOMERULAR FILTRATION RATE ML/MIN/1.73 SQ M.PREDICTED 107.3 mL/min/1.73m*2 Normal >60.0 [facility] Comment on above: Result Comment: [facility]???s estimated glomerular filtration rate (eGFR) will no [...] of individuals. Performed By: #### L [id number] ####[facility] ([facility])[address] [place] [address] Glucose [Mass/Vol] 92 mg/dL Normal 70-100 [facility] Comment on above: Performed By: #### L [id number] ####[facility] ([facility])[address] [place] [address] Potassium [Moles/Vol] 3.6 mmol/L Normal 3.5-5.1 [facility] Comment on above: Performed By: #### L [id number] ####[facility] ([facility])[address] [place] [address] Sodium [Moles/Vol] 138 mmol/L Normal 136-145 [facility] Comment on above: Performed By: #### L [id number] ####[facility] ([facility])[address] [place] [address] Urea nitrogen [Mass/Vol] 8 mg/dL Normal 7-25 [facility] Comment on above: Performed By: #### L [id number] ####[facility] [place] [address] UREA NITROGEN/CREATININE (MASS RATIO) IN SER/PLAS 18.2 Normal [facility] Comment on above: Performed By: #### L [id number] ####[facility] ([facility])[address] [address] CBCon 03-18-2024 Erythrocyte distribution width (RBC) [Ratio] 14.6 % Normal 11.5-15.0 [facility] Comment on above: Performed By: #### L [id number] ####[facility] ([facility])[address] [place] [address] ERYTHROCYTE MEAN CORPUSCULAR HEMOGLOBIN CONCENTRATION (G/DL) BY AUTOMATED 31.7 g/dL Low 32.0-35.0 [facility] Comment on above: Performed By: #### L [id number] ####[facility] ([facility])[address] [place] [address] Hematocrit (Bld) [Volume fraction] 27.1 % Low 36.0-48.0 [facility] Comment on above: Performed By: #### L [id number] ####[facility] ([facility])[address] [place] [address] Hemoglobin (Bld) [Mass/Vol] 8.6 g/dL Low 12.0-15.0 [facility] Comment on above: Performed By: #### L [id number] ####[facility] ([facility])[address] [place] [address] MCH (RBC) [Entitic mass] 29.3 pg Normal 27.0-33.0 [facility] Comment on above: Performed By: #### L [id number] ####[facility] ([facility])[address] [place] [address] MCV (RBC) [Entitic vol] 92.2 fL Normal 82.0-98.0 [facility] Comment on above: Performed By: #### L [id number] ####[facility] ([facility])[address] [place] [address] PLATELETS (10*3/UL) IN BLOOD AUTOMATED COUNT 167 10*3/uL Normal 150-400 [facility] Comment on above: Performed By: #### L [id number] ####[facility] ([facility])[address] [address] RBC (Bld) [#/Vol] 2.94 10*6/uL Low 3.80-5.00 [facility] Comment on above: Performed By: #### L [id number] ####[facility] ([facility])[address] [place] [address] WBC (Bld) [#/Vol] 8.17 10*3/uL Normal 4.00-10.60 [facility] Comment on above: Performed By: #### L [id number] ####[facility] ([facility])[address] [place] [address] MAGNESIUMon 03-18-2024 Magnesium [Mass/Vol] 2.0 mg/dL Normal 1.9-2.7 [facility] Comment on above: Performed By: #### L [id number] ####[facility] ([facility])[address] [place] [address] Magnesium [Mass/Vol] 1.7 mg/dL Low 1.9-2.7 [facility] Comment on above: Performed By: #### L [id number] ####[facility] ([facility])[address] [place] [address] PHOSPHORUSon 03-18-2024 Magnesium [Mass/Vol] 3.4 mg/dL Normal 2.5-5.0 [facility] Comment on above: Performed By: #### L [id number] ####[facility] ([facility])[address] [place] [address] Magnesium [Mass/Vol] 2.4 mg/dL Low 2.5-5.0 [facility] Comment on above: Performed By: #### L [id number] ####[facility] [place] [address] TRIGLYCERIDESon 03-18-2024 FASTING? Unknown Normal [facility] Comment on above: Order Comment: Monit or triglycerides while patient is on propofol. Consult Nutrition if greater than 500 mg/dL. Performed By: #### L [id number] ####[facility] ([facility])[address] [place] [address] Magnesium [Mass/Vol] 116 mg/dL Normal 40-149 [facility] Comment on above: Order Comment: Monit or triglycerides while patient is on propofol. Consult Nutrition if greater than 500 mg/dL. Result Comment: TRIG LYCERIDE REFERENCE RANGE:20 YEARS AND OLDER CARDIOVASCULAR RISKLESS THAN 150 mg/dL LOW [id number] TO 199 mg/dL BORDERLINE [id number] mg/dL AND GREATER HIGH RISK Performed By: #### L [id number] ####[facility] ([facility])[address] [place] [address] 30on 03-17-2024 30 Normal [facility] AFB CULTUREon 03-17-2024 AFB CULTURE No growth at 42 days Normal [facility] Comment on above: Performed By: #### L [id number] ####[facility] ([facility])[address] [place] [address] AFB STAIN No acid fast bacilli seen Normal [facility] Comment on above: Performed By: #### L [id number] ####[facility] ([facility])[address] [place] [address] BASIC METABOLIC PANELon 09-0 Anion gap [Moles/Vol] 10 mmol/L Normal 7-20 [facility] Comment on above: Performed By: #### L [id number] ####[facility] ([facility])[address] [place] [address] Calcium [Mass/Vol] 8.0 mg/dL Low 8.6-10.3 [facility] Comment on above: Performed By: #### L [id number] ####[facility] ([facility])[address] [place] [address] Chloride [Moles/Vol] 107 mmol/L Normal 98-107 [facility] Comment on above: Performed By: #### L [id number] ####[facility] [place] [address] CO2 [Moles/Vol] 23 mmol/L Normal 21-31 [facility] Comment on above: Performed By: #### L [id number] ####[facility] ([facility])[address] [place] [address] Creatinine [Mass/Vol] 0.48 mg/dL Low 0.60-1.20 [facility] Comment on above: Performed By: #### L [id number] ####[facility] ([facility])[address] [place] [address] GLOMERULAR FILTRATION RATE ML/MIN/1.73 SQ M.PREDICTED 105.0 mL/min/1.73m*2 Normal >60.0 [facility] Comment on above: Result Comment: [facility]???s estimated glomerular filtration rate (eGFR) will no [...] of individuals. Performed By: #### L [id number] ####[facility] [place] [address] Glucose [Mass/Vol] 101 mg/dL High 70-100 [facility] Comment on above: Performed By: #### L [id number] ####[facility])[address] [place] [address] Potassium [Moles/Vol] 3.4 mmol/L Low 3.5-5.1 [facility] Comment on above: Performed By: #### L [id number] ####[facility])[address] [place] [address] Sodium [Moles/Vol] 137 mmol/L Normal 136-145 [facility] Comment on above: Performed By: #### L [id number] ####[facility] ([facility])[address] [place] [address] Urea nitrogen [Mass/Vol] 8 mg/dL Normal 7-25 [facility] Comment on above: Performed By: #### L [id number] ####[facility])[address] [place] [address] UREA NITROGEN/CREATININE (MASS RATIO) IN SER/PLAS 16.7 Normal [facility] Comment on above: Performed By: #### L [id number] ####[facility])[address] [place] [address] CBCon 03-17-2024 Erythrocyte distribution width (RBC) [Ratio] 14.7 % Normal 11.5-15.0 [facility] Comment on above: Performed By: #### L [id number] ####[facility] ([facility])[address] [place] [address] ERYTHROCYTE MEAN CORPUSCULAR HEMOGLOBIN CONCENTRATION (G/DL) BY AUTOMATED 32.0 g/dL Normal 32.0-35.0 [facility] Comment on above: Performed By: #### L [id number] ####[facility] ([facility])[address] [place] [address] Hematocrit (Bld) [Volume fraction] 29.7 % Low 36.0-48.0 [facility] Comment on above: Performed By: #### L [id number] ####[facility] ([facility])[address] [place] [address] Hemoglobin (Bld) [Mass/Vol] 9.5 g/dL Low 12.0-15.0 [facility] Comment on above: Performed By: #### L [id number] ####[facility] ([facility])[address] [place] [address] MCH (RBC) [Entitic mass] 29.9 pg Normal 27.0-33.0 [facility] Comment on above: Performed By: #### L [id number] ####[facility] ([facility])[address] [place] [address] MCV (RBC) [Entitic vol] 93.4 fL Normal 82.0-98.0 [facility] Comment on above: Performed By: #### L [id number] ####[facility] ([facility])[address] [place] [address] PLATELETS (10*3/UL) IN BLOOD AUTOMATED COUNT 186 10*3/uL Normal 150-400 [facility] Comment on above: Performed By: #### L [id number] ####[facility] [place] [address] RBC (Bld) [#/Vol] 3.18 10*6/uL Low 3.80-5.00 [facility] Comment on above: Performed By: #### L [id number] ####[facility])[address] [place] [address] WBC (Bld) [#/Vol] 8.27 10*3/uL Normal 4.00-10.60 [facility] Comment on above: Performed By: #### L [id number] ####[facility] ([facility])[address] [place] [address] Erythrocyte distribution width (RBC) [Ratio] 14.6 % Normal 11.5-15.0 [facility] Comment on above: Performed By: #### L [id number] ####[facility] ([facility])[address] [place] [address] ERYTHROCYTE MEAN CORPUSCULAR HEMOGLOBIN CONCENTRATION (G/DL) BY AUTOMATED 31.4 g/dL Low 32.0-35.0 [facility] Comment on above: Performed By: #### L [id number] ####[facility] ([facility])[address] [place] [address] Hematocrit (Bld) [Volume fraction] 30.3 % Low 36.0-48.0 [facility] Comment on above: Performed By: #### L [id number] ####[facility] [place] [address] Hemoglobin (Bld) [Mass/Vol] 9.5 g/dL Low 12.0-15.0 [facility] Comment on above: Performed By: #### L [id number] ####[facility] ([facility])[address] [place] [address] MCH (RBC) [Entitic mass] 29.3 pg Normal 27.0-33.0 [facility] Comment on above: Performed By: #### L [id number] ####[facility] ([facility])[address] [place] [address] MCV (RBC) [Entitic vol] 93.5 fL Normal 82.0-98.0 [facility] Comment on above: Performed By: #### L [id number] ####[facility] ([facility])[address] [place] [address] PLATELETS (10*3/UL) IN BLOOD AUTOMATED COUNT 185 10*3/uL Normal 150-400 [facility] Comment on above: Performed By: #### L [id number] ####[facility] ([facility])[address] [place] [address] RBC (Bld) [#/Vol] 3.24 10*6/uL Low 3.80-5.00 [facility] Comment on above: Performed By: #### L [id number] ####[facility] ([facility])[address] [place] [address] WBC (Bld) [#/Vol] 9.38 10*3/uL Normal 4.00-10.60 [facility] Comment on above: Performed By: #### L [id number] ####[facility] ([facility])[address] [place] [address] FUNGAL CULTUREon 03-17-2024 FUNGAL SMEAR No yeast or fungal e lements seen Normal [facility] Comment on above: Performed By: #### L [id number] ####[facility] ([facility])[address] [place] [address] HEMOGLOBIN AND HEMATOCRIT, B LOODon 03-17-2024 Hematocrit (Bld) [Volume fraction] 27.7 % Low 36.0-48.0 [facility] Comment on above: Performed By: #### L [id number] ####[facility] ([facility])[address] [place] [address] Hemoglobin (Bld) [Mass/Vol] 9.0 g/dL Low 12.0-15.0 [facility] Comment on above: Performed By: #### L [id number] ####[facility] ([facility])[address] [place] [address] MAGNESIUMon 03-17-2024 Magnesium [Mass/Vol] 1.9 mg/dL Normal 1.9-2.7 [facility] Comment on above: Performed By: #### L [id number] ####[facility] ([facility])[address] [place] [address] PHOSPHORUSon 03-17-2024 Magnesium [Mass/Vol] 2.2 mg/dL Low 2.5-5.0 [facility] Comment on above: Performed By: #### L [id number] ####[facility] ([facility])[address] [place] [address] SPUTUM CULTUREon 03-17-2024 GRAM STAIN RESULT Normal [facility] Comment on above: Order Comment: Light Growth Colonies Consistent with Upper Respiratory Li Result Comment: <10 Epithelial cells per low power field>25 Polys Per Low Power FieldRare Gram positive cocci in clustersRare Gram negative bacilli Performed By: #### L [id number] ####[facility] ([facility])[address] [place] [address] TROPONIN Ion 03-17-2024 Troponin I.cardiac [Mass/Vol] 0.08 ng/mL High 0.00-0.04 [facility] Comment on above: Performed By: #### L [id number] ####[facility] ([facility])[address] [place] [address] Troponin I.cardiac [Mass/Vol] 0.06 ng/mL High 0.00-0.04 [facility] Comment on above: Performed By: #### L [id number] ####[facility] ([facility])[address] [place] [address] VANCOMYCIN, TROUGHon 03-17- 024 VANCOMYCIN (UG/ML) IN SER/PLAS - TROUGH 4.5 ug/mL Low 5.0-20.0 [facility] Comment on above: Performed By: #### L [id number] ####[facility] [place] [address] BASIC METABOLIC PANELon 08-3 Anion gap [Moles/Vol] 12 mmol/L Normal 7-20 [facility] Comment on above: Performed By: #### L [id number] ####[facility] [place] [address] Calcium [Mass/Vol] 7.9 mg/dL Low 8.6-10.3 [facility] Comment on above: Performed By: #### L [id number] ####[facility] [place] [address] Chloride [Moles/Vol] 105 mmol/L Normal 98-107 [facility] Comment on above: Performed By: #### L [id number] ####[facility] ([facility])[address] [place] [address] CO2 [Moles/Vol] 22 mmol/L Normal 21-31 [facility] Comment on above: Performed By: #### L [id number] ####[facility] ([facility])[address] [place] [address] Creatinine [Mass/Vol] 0.65 mg/dL Normal 0.60-1.20 [facility] Comment on above: Performed By: #### L [id number] ####[facility] ([facility])[address] [place] [address] GLOMERULAR FILTRATION RATE ML/MIN/1.73 SQ M.PREDICTED 97.6 mL/min/1.73m*2 Normal >60.0 [facility] Comment on above: Result Comment: [facility]???s estimated glomerular filtration rate (eGFR) will no [...] of individuals. Performed By: #### L [id number] ####[facility] ([facility])[address] [place] [address] Glucose [Mass/Vol] 95 mg/dL Normal 70-100 [facility] Comment on above: Performed By: #### L [id number] ####[facility] ([facility])[address] [place] [address] Potassium [Moles/Vol] 3.3 mmol/L Low 3.5-5.1 [facility] Comment on above: Performed By: #### L [id number] ####[facility] ([facility])[address] [place] [address] Sodium [Moles/Vol] 136 mmol/L Normal 136-145 [facility] Comment on above: Performed By: #### L [id number] ####[facility] ([facility])[address] [place] [address] Urea nitrogen [Mass/Vol] 9 mg/dL Normal 7-25 [facility] Comment on above: Performed By: #### L [id number] ####[facility] ([facility])[address] [place] [address] UREA NITROGEN/CREATININE (MASS RATIO) IN SER/PLAS 13.8 Normal [facility] Comment on above: Performed By: #### L [id number] ####[facility] ([facility])[address] [place] [address] CBCon 03-16-2024 Erythrocyte distribution width (RBC) [Ratio] 14.7 % Normal 11.5-15.0 [facility] Comment on above: Performed By: #### L [id number] ####[facility] [address] ERYTHROCYTE MEAN CORPUSCULAR HEMOGLOBIN CONCENTRATION (G/DL) BY AUTOMATED 31.8 g/dL Low 32.0-35.0 [facility] Comment on above: Performed By: #### L [id number] ####[facility] [place] [address] Hematocrit (Bld) [Volume fraction] 30.8 % Low 36.0-48.0 [facility] Comment on above: Performed By: #### L [id number] ####[facility] [place] [address] Hemoglobin (Bld) [Mass/Vol] 9.8 g/dL Low 12.0-15.0 [facility] Comment on above: Performed By: #### L [id number] ####[facility] ([facility])[address] [place] [address] MCH (RBC) [Entitic mass] 29.4 pg Normal 27.0-33.0 [facility] Comment on above: Performed By: #### L [id number] ####[facility] ([facility])[address], [place] [address] MCV (RBC) [Entitic vol] 92.5 fL Normal 82.0-98.0 [facility] Comment on above: Performed By: #### L [id number] ####[facility] ([facility])[address] [place] [address] PLATELETS (10*3/UL) IN BLOOD AUTOMATED COUNT 179 10*3/uL Normal 150-400 [facility] Comment on above: Performed By: #### L [id number] ####[facility] ([facility])[address] [place] [address] RBC (Bld) [#/Vol] 3.33 10*6/uL Low 3.80-5.00 [facility] Comment on above: Performed By: #### L [id number] ####[facility] [place] [address] WBC (Bld) [#/Vol] 9.45 10*3/uL Normal 4.00-10.60 [facility] Comment on above: Performed By: #### L [id number] ####[facility] ([facility])[address] [place] [address] Erythrocyte distribution width (RBC) [Ratio] 14.7 % Normal 11.5-15.0 [facility] Comment on above: Performed By: #### L [id number] ####[facility] ([facility])[address] [place] [address] ERYTHROCYTE MEAN CORPUSCULAR HEMOGLOBIN CONCENTRATION (G/DL) BY AUTOMATED 32.0 g/dL Normal 32.0-35.0 [facility] Comment on above: Performed By: #### L [id number] ####[facility] ([facility])[address] [place] [address] Hematocrit (Bld) [Volume fraction] 30.6 % Low 36.0-48.0 [facility] Comment on above: Performed By: #### L [id number] ####[facility] [place] [address] Hemoglobin (Bld) [Mass/Vol] 9.8 g/dL Low 12.0-15.0 [facility] Comment on above: Performed By: #### L [id number] ####[facility] ([facility])[address] [place] [address] MCH (RBC) [Entitic mass] 30.0 pg Normal 27.0-33.0 [facility] Comment on above: Performed By: #### L [id number] ####[facility] ([facility])[address] [place] [address] MCV (RBC) [Entitic vol] 93.6 fL Normal 82.0-98.0 [facility] Comment on above: Performed By: #### L [id number] ####[facility] ([facility])[address] [place] [address] PLATELETS (10*3/UL) IN BLOOD AUTOMATED COUNT 177 10*3/uL Normal 150-400 [facility] Comment on above: Performed By: #### L [id number] ####[facility] ([facility])[address] [place] [address] RBC (Bld) [#/Vol] 3.27 10*6/uL Low 3.80-5.00 [facility] Comment on above: Performed By: #### L [id number] ####[facility] ([facility])[address] [place] [address] WBC (Bld) [#/Vol] 10.10 10*3/uL Normal 4.00-10.60 [facility] Comment on above: Performed By: #### L [id number] ####[facility] ([facility])[address] [place] [address] Erythrocyte distribution width (RBC) [Ratio] 14.9 % Normal 11.5-15.0 [facility] Comment on above: Performed By: #### L [id number] ####[facility] ([facility])[address] [place] [address] ERYTHROCYTE MEAN CORPUSCULAR HEMOGLOBIN CONCENTRATION (G/DL) BY AUTOMATED 31.0 g/dL Low 32.0-35.0 [facility] Comment on above: Performed By: #### L [id number] ####[facility] ([facility])[address] [place] [address] Hematocrit (Bld) [Volume fraction] 37.4 % Normal 36.0-48.0 [facility] Comment on above: Performed By: #### L [id number] ####[facility] ([facility])[address] [place] [address] Hemoglobin (Bld) [Mass/Vol] 11.6 g/dL Low 12.0-15.0 [facility] Comment on above: Performed By: #### L [id number] ####[facility] ([facility])[address] [place] [address] MCH (RBC) [Entitic mass] 30.1 pg Normal 27.0-33.0 [facility] Comment on above: Performed By: #### L [id number] ####[facility] ([facility])[address] [place] [address] MCV (RBC) [Entitic vol] 96.9 fL Normal 82.0-98.0 [facility] Comment on above: Performed By: #### L [id number] ####[facility] ([facility])[address], [place] [address] PLATELETS (10*3/UL) IN BLOOD AUTOMATED COUNT 179 10*3/uL Normal 150-400 [facility] Comment on above: Performed By: #### L [id number] ####[facility] ([facility])[address] [place] [address] RBC (Bld) [#/Vol] 3.86 10*6/uL Normal 3.80-5.00 [facility] Comment on above: Performed By: #### L [id number] ####[facility] ([facility])[address] [place] [address] WBC (Bld) [#/Vol] 12.28 10*3/uL High 4.00-10.60 [facility] Comment on above: Performed By: #### L [id number] ####[facility] ([facility])[address] [place] [address] HEMOGLOBIN AND HEMATOCRIT, B LOODon 03-16-2024 Hematocrit (Bld) [Volume fraction] 29.0 % Low 36.0-48.0 [facility] Comment on above: Performed By: #### L [id number] ####[facility] ([facility])[address] [place] [address] Hemoglobin (Bld) [Mass/Vol] 9.4 g/dL Low 12.0-15.0 [facility] Comment on above: Performed By: #### L [id number] ####[facility] ([facility])[address] [place] [address] Hematocrit (Bld) [Volume fraction] 31.8 % Low 36.0-48.0 [facility] Comment on above: Performed By: #### L [id number] ####[facility] [place] [address] Hemoglobin (Bld) [Mass/Vol] 9.9 g/dL Low 12.0-15.0 [facility] Comment on above: Performed By: #### L [id number] ####[facility] ([facility])[address] [place] [address] Hematocrit (Bld) [Volume fraction] 30.0 % Low 36.0-48.0 [facility] Comment on above: Performed By: #### L [id number] ####[facility] [place] [address] Hemoglobin (Bld) [Mass/Vol] 9.6 g/dL Low 12.0-15.0 [facility] Comment on above: Performed By: #### L [id number] ####[facility])[address] [place] [address] MAGNESIUMon 03-16-2024 Magnesium [Mass/Vol] 1.7 mg/dL Low 1.9-2.7 [facility] Comment on above: Performed By: #### L [id number] ####[facility] ([facility])[address] [place] [address] PHOSPHORUSon 03-16-2024 Magnesium [Mass/Vol] 2.4 mg/dL Low 2.5-5.0 [facility] Comment on above: Performed By: #### L [id number] ####[facility] ([facility])[address] [place] [address] TROPONIN Ion 03-16-2024 Troponin I.cardiac [Mass/Vol] 0.05 ng/mL High 0.00-0.04 [facility] Comment on above: Performed By: #### L [id number] ####[facility] ([facility])[address] [place] [address] Troponin I.cardiac [Mass/Vol] 0.05 ng/mL High 0.00-0.04 [facility] Comment on above: Performed By: #### L [id number] ####[facility] ([facility])[address] [place] [address] Troponin I.cardiac [Mass/Vol] 0.03 ng/mL Normal 0.00-0.04 [facility] Comment on above: Performed By: #### L [id number] ####[facility] ([facility])[address] [place] [address] Troponin I.cardiac [Mass/Vol] 0.02 ng/mL Normal 0.00-0.04 [facility] Comment on above: Performed By: #### L [id number] ####[facility] ([facility])[address] [place] [address] Troponin I.cardiac [Mass/Vol] 0.07 ng/mL High 0.00-0.04 [facility] Comment on above: Performed By: #### L [id number] ####[facility] ([facility])[address] [place] [address] VANCOMYCIN, PEAKon 03-16- 4 VANCOMYCIN (UG/ML) IN SER/PLAS - [facility] 13.4 ug/mL Low 20.0-50.0 [facility] Comment on above: Performed By: #### L [id number] ####[facility] ([facility])[address] [place] [address] 30on 03-15-2023 30 Normal [facility] BASIC METABOLIC PANELon 02-16 Anion gap [Moles/Vol] 10 mmol/L Normal 7-20 [facility] Comment on above: Performed By: #### L [id number] ####[facility] ([facility])[address] [place] [address] Calcium [Mass/Vol] 7.9 mg/dL Low 8.6-10.3 [facility] Comment on above: Performed By: #### L [id number] ####[facility] ([facility])[address] [place] [address] Chloride [Moles/Vol] 110 mmol/L High 98-107 [facility] Comment on above: Performed By: #### L [id number] ####[facility] ([facility])[address] [place] [address] CO2 [Moles/Vol] 23 mmol/L Normal 21-31 [facility] Comment on above: Performed By: #### L [id number] ####[facility] ([facility])[address] [place] [address] Creatinine [Mass/Vol] 0.59 mg/dL Low 0.60-1.20 [facility] Comment on above: Performed By: #### L [id number] ####[facility] ([facility])[address] [place] [address] GLOMERULAR FILTRATION RATE ML/MIN/1.73 SQ M.PREDICTED 100.0 mL/min/1.73m*2 Normal >60.0 [facility] Comment on above: Result Comment: The [facility]???s estimated glomerular filtration rate (eGFR) will no [...] of individuals. Performed By: #### L [id number] ####[facility] ([facility])[address] [place] [address] Glucose [Mass/Vol] 103 mg/dL High 70-100 [facility] Comment on above: Performed By: #### L [id number] ####[facility] ([facility])[address] [place] [address] Potassium [Moles/Vol] 3.6 mmol/L Normal 3.5-5.1 [facility] Comment on above: Performed By: #### L [id number] ####[facility] ([facility])[address] [place] [address] Sodium [Moles/Vol] 139 mmol/L Normal 136-145 [facility] Comment on above: Performed By: #### L [id number] ####[facility] ([facility])[address] [place] [address] Urea nitrogen [Mass/Vol] 11 mg/dL Normal 7-25 [facility] Comment on above: Performed By: #### L [id number] ####[facility] ([facility])[address] [place] [address] UREA NITROGEN/CREATININE (MASS RATIO) IN SER/PLAS 18.6 Normal [facility] Comment on above: Performed By: #### L [id number] ####[facility] ([facility])[address] [place] [address] Anion gap [Moles/Vol] 9 mmol/L Normal 7-20 [facility] Comment on above: Performed By: #### L [id number] ####[facility] ([facility])[address] [place] [address] Calcium [Mass/Vol] 7.9 mg/dL Low 8.6-10.3 [facility] Comment on above: Performed By: #### L [id number] ####[facility] ([facility])[address] [place] [address] Chloride [Moles/Vol] 107 mmol/L Normal 98-107 [facility] Comment on above: Performed By: #### L [id number] ####[facility] ([facility])[address] [place] [address] CO2 [Moles/Vol] 24 mmol/L Normal 21-31 [facility] Comment on above: Performed By: #### L [id number] ####[facility] ([facility])[address] [place] [address] Creatinine [Mass/Vol] 0.65 mg/dL Normal 0.60-1.20 [facility] Comment on above: Performed By: #### L [id number] ####[facility] ([facility])[address] [place] [address] GLOMERULAR FILTRATION RATE ML/MIN/1.73 SQ M.PREDICTED 97.6 mL/min/1.73m*2 Normal >60.0 [facility] Comment on above: Result Comment: The [facility]???s estimated glomerular filtration rate (eGFR) will no [...] of individuals. Performed By: #### L [id number] ####[facility] ([facility])[address] [place] [address] Glucose [Mass/Vol] 117 mg/dL High 70-100 [facility] Comment on above: Performed By: #### L [id number] ####[facility] ([facility])[address] [place] [address] Potassium [Moles/Vol] 3.8 mmol/L Normal 3.5-5.1 [facility] Comment on above: Performed By: #### L [id number] ####[facility] ([facility])[address] [facility] [place] [address] Sodium [Moles/Vol] 136 mmol/L Normal 136-145 [facility] Comment on above: Performed By: #### L [id number] ####[facility] ([facility])[address] [place] [address] Urea nitrogen [Mass/Vol] 15 mg/dL Normal 7-25 [facility] Comment on above: Performed By: #### L [id number] ####[facility] ([facility])[address] [place] [address] UREA NITROGEN/CREATININE (MASS RATIO) IN SER/PLAS 23.1 Normal [facility] Comment on above: Performed By: #### L [id number] ####[facility] ([facility])[address] [place] [address] CBCon 03-15-2024 Erythrocyte distribution width (RBC) [Ratio] 14.7 % Normal 11.5-15.0 [facility] Comment on above: Performed By: #### L [id number] ####[facility] ([facility])[address] [place] [address] ERYTHROCYTE MEAN CORPUSCULAR HEMOGLOBIN CONCENTRATION (G/DL) BY AUTOMATED 31.5 g/dL Low 32.0-35.0 [facility] Comment on above: Performed By: #### L [id number] ####[facility] ([facility])[address] [place] [address] Hematocrit (Bld) [Volume fraction] 28.9 % Low 36.0-48.0 [facility] Comment on above: Performed By: #### L [id number] ####[facility] ([facility])[address] [place] [address] Hemoglobin (Bld) [Mass/Vol] 9.1 g/dL Low 12.0-15.0 [facility] Comment on above: Performed By: #### L [id number] ####[facility] ([facility])[address] [place] [address] MCH (RBC) [Entitic mass] 29.4 pg Normal 27.0-33.0 [facility] Comment on above: Performed By: #### L [id number] ####[facility] ([facility])[address] [place] [address] MCV (RBC) [Entitic vol] 93.5 fL Normal 82.0-98.0 [facility] Comment on above: Performed By: #### L [id number] ####[facility] ([facility])[address] [place] [address] PLATELETS (10*3/UL) IN BLOOD AUTOMATED COUNT 170 10*3/uL Normal 150-400 [facility] Comment on above: Performed By: #### L [id number] ####[facility] ([facility])[address] [place] [address] RBC (Bld) [#/Vol] 3.09 10*6/uL Low 3.80-5.00 [facility] Comment on above: Performed By: #### L [id number] ####[facility] ([facility])[address] [place] [address] WBC (Bld) [#/Vol] 6.38 10*3/uL Normal 4.00-10.60 [facility] Comment on above: Performed By: #### L [id number] ####[facility] ([facility])[address] [place] [address] Erythrocyte distribution width (RBC) [Ratio] 14.9 % Normal 11.5-15.0 [facility] Comment on above: Performed By: #### L [id number] ####[facility] (AKER)[address] [place] [address] ERYTHROCYTE MEAN CORPUSCULAR HEMOGLOBIN CONCENTRATION (G/DL) BY AUTOMATED 32.0 g/dL Normal 32.0-35.0 [facility] Comment on above: Performed By: #### L [id number] ####[facility] ([facility])[address], [place] [address] Hematocrit (Bld) [Volume fraction] 28.4 % Low 36.0-48.0 [facility] Comment on above: Performed By: #### L [id number] ####[facility] ([facility])[address], [place] [address] Hemoglobin (Bld) [Mass/Vol] 9.1 g/dL Low 12.0-15.0 [facility] Comment on above: Performed By: #### L [id number] ####[facility] ([facility])[address] [place] [address] MCH (RBC) [Entitic mass] 29.7 pg Normal 27.0-33.0 [facility] Comment on above: Performed By: #### L [id number] ####[facility] ([facility])[address] [place] [address] MCV (RBC) [Entitic vol] 92.8 fL Normal 82.0-98.0 [facility] Comment on above: Performed By: #### L [id number] ####[facility] ([facility])[address] [place] [address] PLATELETS (10*3/UL) IN BLOOD AUTOMATED COUNT 180 10*3/uL Normal 150-400 [facility] Comment on above: Performed By: #### L [id number] ####[facility] ([facility])[address] [place] [address] RBC (Bld) [#/Vol] 3.06 10*6/uL Low 3.80-5.00 [facility] Comment on above: Performed By: #### L [id number] ####[facility] ([facility])[address] [place] [address] WBC (Bld) [#/Vol] 5.62 10*3/uL Normal 4.00-10.60 [facility] Comment on above: Performed By: #### L [id number] ####[facility] ([facility])[address] [place] [address] CYSTIC FIBROSIS EXPANDED CHIARA IANT PANELon 03-15-2024 CYSTIC FIBROSIS 5T VARIANT Negative Normal [facility] Comment on above: Performed By: #### L [id number] ####[facility] ([facility])[address] [place] [address] CYSTIC FIBROSIS EXPANDED VARIANT PANEL INTERP 0 variants Normal [facility] Comment on above: Result Comment: None of [...] consider ordering Cystic Fibrosis(CFTR) Sequencing and Deletion/Duplication ([facility] test [id number]) to detect rare CFTR variants not tested by this assay. Ifthere is a family history of CF, please contact an [facility] geneticcounselor ([phone]) and provide the specific familialvariants to confirm they were tested by this assay.Ethnicity Classic CF Patients with No Detectable Severe Variants by CF Variant PanelAfrican Slovak 5%Ashkenazi Anabaptism 1% Slovak 20% 1% Slovak 4%Specimen: Whole BloodSymptoms: YesFamily History: UnknownThis result has been reviewed and approved by Francia Vasquez M.D.BACKGROUND INFORMATION: Cystic Fibrosis (CFTR), Expanded Variant PanelCHARACTERISTICS OF CYSTIC FIBROSIS (CF): Chronic sinopulmonarydisease, gastrointestinal malabsorption/pancreatic insufficiency,and obstructive azoospermia. Symptoms of CFTR-related disordersinclude: pancreatitis, bilateral absence of the vas deferens,nasal polyposis, and bronchiectasis.INCIDENCE: 1 in 2,300 Ashkenazi Anabaptism, 1 in 2,500 Caucasians, 1in 13,500 Hispanics, [...] provided for the 23 recommended ACMG variants.c.1A>G, p.Rgx5Jzq; c.[id number], Exons 2-3del;c.115C>T, p.Gln39X; c.178G>T, p.Glu60X; c.200C>T, p.Zth75Vck;c.223C>T, p.Arg75X; c.254G>A (Legacy G85E), p.Lqv77Jgj;c.262_263delTT, p.Cgd73RokrlK73 (aka p.Mcp11yt); c.273+1G>A,Intronic; c.273+3A>C, Intronic; c.274-1G>A, Intronic; c.274G>A,p.Ysk53Gns; c.274G>T, p.Glu92X; c.292C>T, p.Gln98X; c.313delA,p.Gge962BucljH5 (aka p.Ccc061ru); c.325_327delTATinsG,p.Isy779QcugiY7 (aka p.Dmw672zv); c.328G>C, p.Nsa402Wlc; c.349C>T,p.Zgp040Fax; c.350G>A (Legacy R117H), p.Tsf347Nzy; c.366T>A,p.Tfh442V; c.442delA, p.Xhm624QiwluK4 (aka p.Kcd230rw); c.489+1G>T(Legacy 621+1G>T), Intronic; c.531delT, p.Cph118AfrupE34 (akap.Nhb244wn); c.532G>A, p.Qgf528Ues; c.579+1G>T (Legacy 711+1G>T),Intronic; c.579+5G>A, Intronic; c.579+3A>G, Intronic; c.580-1G>T,Intronic; c.595C>T, p.Tuy942Qjo; c.613C>T, p.Dbm046Rhd; c.617T>G,p.Eck999Bem; c.658C>T, p.Wrt506P; c.680T>G, p.Xnl748Hdw;c.722_743del, p.Ezh469DnvkkN58 (aka p.Ggr449dk); c.803delA,p.Mpr038EzeifO91 (aka p.Mnv262cc); c.805_806delAT, p.Uql764XsohpY3(aka p.Jsa566ay); c.935_937delTCT, p.Arm907urb; c.948delT,p.Yoz417JhheaE90 (aka p.Ann698en); c.988G>T, p.Ngc729Q; c.1000C>T(Legacy R334W), p.Fyw856Lrv; c.1007T>A, p.Bqr585Xxe; c.1021T>C,p.Hev278Iat; c.1021_1022dupTC, p.Itl820BoquoL69 (aka p.Bls753qe);c.1040G>A, p.Yus012Ufm; c.1040G>C (Legacy R347P), p.Zij675Rgf;c.1055G>A, p.Ekq567Dyw; c.1081delT, p.Kbu513AolbmW7 (akap.Ywp501gz); c.1116+1G>A, Intronic; c.1130dupA, p.Adn314RjsphK6(aka p.Bgy811zn); c.1155_1156dupTA, p.Kgu651LnawvJ5 (akap.Nan433ql); c.1202G>A, p.Gij788T; c.1203G>A, p.Yiv717T;c.1209+1G>A, Intronic; c.1327_1330dupGATA, p.Nrm957CwgtcU9 (akap.Adg825hl); c.1340delA, p.Zdh237PldraX4 (aka p.Zhi894jo);c.1364C>A (Legacy A455E), p.Wjf134Lxg; c.1393-1G>A, Intronic;c.1397C>A, p.Aey548S; c.1397C>G, p.Oyp930N; c.1400T>C,p.Mmh900Ztw; c.1418delG, p.Wpr937WrqhmM92 (aka p.Awy742cq);c.1438G>T, p.Cwt960Cmd; c.1466C>A, p.Amr015I; c.1475C>T,p.Ldq457Whc; c.1477C>T, p.Ndt021I; c.1519_1521delATC (CtircrG863qoq), p.Wrs043qtg; c.1521_1523delCTT (Legacy Z746bph),p.Sdb408wzx; c.1545_1546delTA, p.Hbv049G; c.1558G>T, p.Ekq030Zjp;c.1572C>A, p.Ewq622A; c.1573C>T, p.Myo394L; c.1585-1G>A (Qdkdlb5297-4U>A), Intronic; c.1585-8G>A, Intronic; c.1624G>T (VwokzfY177X), p.Ycq347K; c.1645A>C, p.Wol083Eqi; c.1646G>A, p.Twx416Glt;c.1647T>G, p.Qta740Ikg; c.1651G>A, p.Tpa314Hzq; c.1652G>A (TszpjoG693G), p.Dvf649Csg; c.1654C>T, p.Agb020Z; c.1657C>T (SekpsdS267R), p.Mhk740L; c.1675G>A, p.Qlv808Ccj; c.1679G>A, p.Xmj793Zsv;c.1679G>C (Legacy R560T), p.Fya455Ojq; c.1680-706A>G, Intronic;c.1680-1G>A, Intronic; c.1703delT, p.Loi034KfucgB4 (akap.Nvd305cs); c.1705T>G, p.Ukj622Ccj; c.1721C>A, p.Ums149Xlx;c.1753G>T, p.Ayq878P; c.1766+1G>A (Legacy 1898+1G>A), Intronic;c.1766+3A>G, Intronic; c.1792_1798delAAAACTA, p.Vbm627IsehpI82(aka p.Hda275yz); c.1911delG, p.Ecw926TnomsY52 (aka p.Gfz617mb);c.1923_1931del9insA, p.Hvm563JnxlkY1 (aka p.Dgx109cq);c.1972_1984del13insAGAAA, p.Xea202ZnswxQ6 (aka p.Iof835vx);c.1975delA, p.Nev423SuhyhS9 (aka p.Lcn153fm); c.2011delT,p.Pzv327T; c.2050_2del, p.Xvy757XhtsgC3; c.205_2delinsG(aka c.2051_2delinsG), p.Tbx413VajliD93; c.2052delA (Glsvyu1803ridR), p.Gwe634AocpbY51; c.2125C>T, p.Mhw586T; c.2128A>T,p.Oyc707A; c.2175dupA, p.Wnu367QrxzbA3 (aka p.Zzz231wt);c.2195T>G, p.Hfk250E; c.2215delG, p.Dmh426SydvjK35 (akap.Hol902py); c.2290C>T, p.Nkg160Vdw; c.2453delT, p.Mxc089GndbnN6(aka p.Emg463zt); c.2464G>T, p.Hdn308F; c.2490+1G>A, Intronic;c.2491G>T, p.Xlc528T; c.2537G>A, p.Yxk637P; c.2538G>A, p.Oxp390Q;c.2551C>T, p.Xss838K; c.2583delT, p.Vgg182XaxwkK6 (akap.Zgh776qi); c.2657+5G>A ([facility] 2789+5G>A), Intronic; c.2668C>T,p.Hnh122Z; c.2737_2738insG, p.Fno328F; c.2780T>C, p.Cpc256Gar;c.2810dupT, p.Gpg147DkotfY76 (aka p.Ocy934ih); c.2834C>T,p.Txh565Jei; c.2875delG, p.Zto076JnggdR2 (aka p.Exf841ss);c.2908G>C, p.Mim942Vpi; c.2988+1G>A (Legacy 3120+1G>A), Intronic;c.2988G>A, Intronic; c.2989-1G>A, Intronic; c.3039delC,p.Pwo7617HpsydB6 (aka p.Cym8357mh); c.3067_3072delATAGTG,p.Tpk1783_Sjz4695inl (aka J3171_L9189dhr); c.3140-26A>G, Intronic;c.3194T>C, p.Pwh6789Ino; c.3196C>T, p.Noj7055Qbk; c.3197G>A,p.Txf2097Nsa; c.3230T>C, p.Cpl3583Rjc; c.3266G>A, p.Czl6810Z;c.3276C>A, p.Jui6303B; c.3276C>G, p.Jim1801Y; c.3302T>A,p.Jts4601Noa; c.3310G>T, p.Avt7420I; c.3472C>T, p.Ybw1164O;c.3484C>T ([employer] R1645Y), p.Mkm9632Z; c.3528delC (Zwakuy7611rhcX), p.Gkj2997EywgfG02 (aka p.Bay7696le);c.3532_3535dupTCAA, p.Zxh3663JzcwmF83 (aka p.Zya9648qs);c.3587C>G, p.Dgc3604F; c.3611G>A, p.Emv4223B; c.3612G>A,p.Nca8745A; c.3659delC, p.Cry4476YgpdpP2 (aka p.Pea2567wm);c.3691delT, p.Wqd1686JnllhS0 (aka p.Vvp8308sv); c.3712C>T,p.Vqc3781Y; c.3718-2477C>T (Legacy 3849+10kbC>T), Intronic;c.3731G>A, p.Qie5614Bdx; c.3744delA, p.Cxv8607YxdzsP4 (akap.Vnx7061xb); c.3752G>A, p.Sxn8886Onh; c.3763T>C, p.Avx0287Peg;c.3764C>A, p.Jgi1869P; c.3773dupT, p.Aho9680JvbupS9 (akap.Xwi5874wm); c.3846G>A ([employer]acy F4892X), p.Mcz0575U; c.3873+1G>A,Intronic; c.3909C>G ([employer] E0639R), p.Mov0992Msf; c.3937C>T,p.Vaq2581N; c.3964-78_4242+577del, Exons 22-23del; c.4025_4028dup,p.Inw0934HljhsQ49 (aka p.R2432sh); c.4046G>A, p.Gee3304Bvs;c.4077_4080delTGTTinsAA, p.Uoe9462zqO3 (aka p.Gkx4558hv);c.4111G>T, p.Pkp6741Y; c.4251delA, p.Zog7785KvzqoC74 (akap.Crv5981kj). The IVS-8 variant, c.2210-12[5], will be reportedonly when R117H is detected or in patients who are reported to besymptomatic.CLINICAL SENSITIVITY: Ashkenazi Anabaptism 96 percent; 92percent; 80 percent; 78 percent; AsianAmerican 55 percent.METHODOLOGY: Matrix-Assisted Laser Desorption Ionization-Time ofFlight (MALDI-TOF)Analytical sensitivity and specificity: 99 percent.LIMITATIONS: Diagnostic errors can occur due to rare sequencevariations. Only the CFTR variants listed above and 5T variantwill be interrogated.This test was developed and its performance characteristicsdetermined by [facility]. It has not been cleared orapproved by the U.S. Food and Drug Administration. This test wasperformed in a CLIA-certified laboratory and is intended forclinical purposes.Counseling and informed consent are recommended for genetictesting. Consent forms are available online.Performed By: [facility] [place], [place] [address]Laboratory Director: Tip Hathaway MD, PhDCLIA Number: [id number] Performed By: #### L [id number] ####[facility] ([facility])[address] [place] [address] CYSTIC FIBROSIS, ALLELE 1 Negative Normal [facility] Comment on above: Performed By: #### L [id number] ####[facility] ([facility])[address] [place] [address] CYSTIC FIBROSIS, ALLELE 2 Negative Normal [facility] Comment on above: Performed By: #### L [id number] ####[facility])[address] [place] [address] HEMOGLOBIN AND HEMATOCRIT, B LOODon 03-15-2024 Hematocrit (Bld) [Volume fraction] 30.1 % Low 36.0-48.0 [facility] Comment on above: Performed By: #### L [id number] ####[facility] ([facility])[address] [place] [address] Hemoglobin (Bld) [Mass/Vol] 9.5 g/dL Low 12.0-15.0 [facility] Comment on above: Performed By: #### L [id number] ####[facility] ([facility])[address] [place] [address] Hematocrit (Bld) [Volume fraction] 30.3 % Low 36.0-48.0 [facility] Comment on above: Performed By: #### L [id number] ####[facility] ([facility])[address] [place] [address] Hemoglobin (Bld) [Mass/Vol] 9.7 g/dL Low 12.0-15.0 [facility] Comment on above: Performed By: #### L [id number] ####[facility] ([facility])[address] [place] [address] MAGNESIUMon 03-15-2024 Magnesium [Mass/Vol] 1.5 mg/dL Low 1.9-2.7 [facility] Comment on above: Performed By: #### L [id number] ####[facility] ([facility])[address] [place] [address] MRSA/MSSA DNA NASALon 2023 MRSA DNA Negative Normal Negative [facility] Comment on above: Order Comment: Testi ng [...] preclude nasal colonization. Performed By: #### L [id number] ####[facility] ([facility])[address] [place] [address] MSSA DNA Negative Normal Negative [facility] Comment on above: Order Comment: Testi ng [...] preclude nasal colonization. Performed By: #### L [id number] ####[facility] ([facility])[address] [place] [address] PHOSPHORUSon 03-15-2024 Magnesium [Mass/Vol] 2.1 mg/dL Normal 1.9-2.7 [facility] Comment on above: Performed By: #### L [id number] ####[facility] ([facility])[address] [place] [address] Performed By: #### L [id number] ####[facility] ([facility])[address] [place] [address] Magnesium [Mass/Vol] 2.8 mg/dL Normal 2.5-5.0 [facility] Comment on above: Performed By: #### L [id number] ####[facility] ([facility])[address] [place] [address] TROPONIN Ion 03-15-2024 Troponin I.cardiac [Mass/Vol] 0.02 ng/mL Normal 0.00-0.04 [facility] Comment on above: Performed By: #### L [id number] ####[facility] (AKER)[address] [place] [address] Troponin I.cardiac [Mass/Vol] 0.02 ng/mL Normal 0.00-0.04 [facility] Comment on above: Performed By: #### L [id number] ####[facility] ([facility])[address] [place] [address] Troponin I.cardiac [Mass/Vol] 0.01 ng/mL Normal 0.00-0.04 [facility] Comment on above: Performed By: #### L [id number] ####[facility] ([facility])[address] [place] [address] Troponin I.cardiac [Mass/Vol] 0.03 ng/mL Normal 0.00-0.04 [facility] Comment on above: Performed By: #### L [id number] ####[facility] ([facility])[address] [place] [address] Troponin I.cardiac [Mass/Vol] 0.07 ng/mL High 0.00-0.04 [facility] Comment on above: Performed By: #### L [id number] ####[facility] ([facility])[address] [place] [address] 1,4-ZQFP-S-GLUCANon 03-14-20 24 (1,3)-KRWE-J-SBGWXJ 47 pg/mL Normal [facility] Comment on above: Performed By: #### L [id number] ####[facility] ([employer])[address] [place] [address] (1,3)-EGNK-M-LZSMJP INTERPRETATION Negative Normal Negative [facility] Comment on above: Result Comment: INTE RPRETIVE INFORMATION: (1,3)-ryns-A-eseiox (Fungitell) Less than 31 pg/mL ................... Negative 31-59 pg/mL .......................... Negative 60-79 pg/mL .......................... Indeterminate Greater than or equal to 80 pg/mL .... PositiveThe Fungitell test is indicated for presumptive diagnosisof fungal infection and should be used in conjunction withother diagnostic procedures. This test does not detectcertain fungal species such as Cryptococcus, which producevery low levels of (1,3)-zwll-O-jfvgyu. This test will notdetect the zygomycetes, such as Absidia, Mucor, andRhizopus, which are not known to produce(1,3)-ydzo-Z-ytskmu. In addition, the yeast phase ofBlastomyces dermatitidis produces little(1,3)-wmci-F-javpyj and may not be detected by the assay.Performed By: [facility] [place], [place] [address]Mbutjkrlfx Director: Tip Hathaway MD, PhDCLIA Number: [id number] Performed By: #### L [id number] ####[facility] [employer])[address] [place] [address] 30on 03-14-2024 30 Normal [facility] 30 Normal [facility] 30 The patient is Moder ately Unstable - Medium risk of patient condition declining or worsening The patient's goals for the shift include NABIL The clinical goals for the shift include Reduce Bleeding and VSS Normal [facility] AFB CULTUREon 03-14-2024 AFB CULTURE No growth at 42 days [facility] Comment on above: Performed By: #### L [id number] ####[facility] ([facility])[address] [place] [address] AFB STAIN No acid fast bacilli seen Normal [facility] Comment on above: Performed By: #### L [id number] ####[facility] ([facility])[address] [place] [address] ALLERGEN ASPERGILLUS FUMIGAT USon 03-14-2024 ALLERGEN MICROORGANISM: ASPERGILLUS FUMIGATUS IGE (KU/L) <0.10 Normal <=0.34 [facility] Comment on above: Result Comment: Perf ormed By: [facility] [place], [place] [address]Txalnxnxdl Director: Tip Hathaway MD, PhDCLIA Number: [id number] Performed By: #### L [id number] ####[facility] ([facility])[address] [place] [address] ALLERGEN INTERPRETATIONon ALLERGEN INTERPRETATION See Note Normal [facility] Comment on above: Result Comment: REFE RENCE [...] rule outclinical allergy or even anaphylaxis.Performed By: [facility] [place], [place] [address]Gcrvfozxmg Director: Tip Hathaway MD, PhDCLIA Number: [id number] Performed By: #### L [id number] ####[facility] ([facility])[address] [place] [address] [facility] ACTIVATED PARTIAL THROMBOPLASTIN TIME IN PPP BY COAGULATION ASSAY 26.4 Seconds Normal 25.0-35.0 [facility] Comment on above: Result Comment: Clin ical significance of the APTT is questionable in the presence of heparin. Performed By: #### L [id number] ####[facility] ([facility])[address] [place] [address] ASPERGILLUS GALACTOMANNAN AN TIGENon 03-14-2024 ASPERGILLUS GALACTOMANNAN ANTIGEN, SERUM Negative Normal Negative [facility] Comment on above: Result Comment: INTE RPRETIVE INFORMATION: Aspergillus Galactomannan Antigen by EIANegative results do not exclude the diagnosis of invasiveaspergillosis. A single positive test result (index equalto or greater than 0.5) should be clinically correlatedby testing a separate serum specimen because many agents(e.g. foods, antibiotics) may cross-react with the test.If invasive aspergillosis is suspected in high-riskpatients, serial sampling is recommended.Performed By: [facility] [place], [place] [address]Anlnbdawtb Director: Tip Hathaway MD, PhDCLIA Number: [id number] Performed By: #### L [id number] ####[facility] ([facility])[address] [place] [address] ASPERGILLUS GALACTOMANNAN INDEX 0.03 Normal [facility] Comment on above: Performed By: #### L [id number] ####[facility] ([facility])[address] [place] [address] ASPERGILLUS GALACTOMANNAN ANTIGEN, SERUM Negative Normal Negative [facility] Comment on above: Result Comment: INTE RPRETIVE INFORMATION: Aspergillus Galactomannan Antigen by EIANegative results do not exclude the diagnosis of invasiveaspergillosis. A single positive test result (index equalto or greater than 0.5) should be clinically correlatedby testing a separate serum specimen because many agents(e.g. foods, antibiotics) may cross-react with the test.If invasive aspergillosis is suspected in high-riskpatients, serial sampling is recommended.Performed By: [facility] [place], [place] [address]Laboratory Director: Tip Hathaway MD, PhDCLIA Number: [id number] Performed By: #### L [id number] ####[facility] ([facility])[address] [place] [address] ASPERGILLUS GALACTOMANNAN INDEX 0.03 Normal [facility] Comment on above: Performed By: #### L [id number] ####[facility] ([facility])[address] [place] [address] BASIC METABOLIC PANELon 08-2 Anion gap [Moles/Vol] 11 mmol/L Normal 7-20 [facility] Comment on above: Performed By: #### L [id number] ####[facility] ([facility])[address] [place] [address] Calcium [Mass/Vol] 7.7 mg/dL Low 8.6-10.3 [facility] Comment on above: Performed By: #### L [id number] ####[facility] ([facility])[address] [place] [address] Chloride [Moles/Vol] 106 mmol/L Normal 98-107 [facility] Comment on above: Performed By: #### L [id number] ####[facility] ([facility])[address] [place] [address] CO2 [Moles/Vol] 26 mmol/L Normal 21-31 [facility] Comment on above: Performed By: #### L [id number] ####[facility] ([facility])[address] [place] [address] Creatinine [Mass/Vol] 0.73 mg/dL Normal 0.60-1.20 [facility] Comment on above: Performed By: #### L [id number] ####[facility] ([facility])[address] [place] [address] GLOMERULAR FILTRATION RATE ML/MIN/1.73 SQ M.PREDICTED 91.2 mL/min/1.73m*2 Normal >60.0 [facility] Comment on above: Result Comment: The [facility]???s estimated glomerular filtration rate (eGFR) will no [...] of individuals. Performed By: #### L [id number] ####[facility] ([facility])[address] [place] [address] Glucose [Mass/Vol] 104 mg/dL High 70-100 [facility] Comment on above: Performed By: #### L [id number] ####[facility] ([facility])[address] [place] [address] Potassium [Moles/Vol] 4.0 mmol/L Normal 3.5-5.1 [facility] Comment on above: Performed By: #### L [id number] ####[facility] [place] [address] Sodium [Moles/Vol] 139 mmol/L Normal 136-145 [facility] Comment on above: Performed By: #### L [id number] ####[facility] [place] [address] Urea nitrogen [Mass/Vol] 17 mg/dL Normal 7-25 [facility] Comment on above: Performed By: #### L [id number] ####[facility] ([facility])[address] [place] [address] UREA NITROGEN/CREATININE (MASS RATIO) IN SER/PLAS 23.3 [facility] Comment on above: Performed By: #### L [id number] ####[facility] ([facility])[address] [place] [address] BLOOD CULTUREon 03-14-2024 Bacteria identified Cx Nom (Bld) No growth at [address] [facility] Comment on above: Performed By: #### L [id number] ####[facility] ([facility])[address] [place] [address] Order Comment: From a different site than #1. BODY FLUID CELL DIFFERENTIAL on 03-14-2024 BASOPHILS TOTAL PER COUNTED LEUKOCYTES IN BODY FLUID BY MANUAL COUNT [facility] Comment on above: Order Comment: Diffe rential performed on cytospin Performed By: #### L [id number] ####[facility] ([facility])[address] [facility] [address] CELLS COUNTED TOTAL (#) IN BODY FLUID 100 Normal [facility] Comment on above: Order Comment: Diffe rential performed on cytospin Performed By: #### L [id number] ####[facility] ([facility])[address] [facility] [place] [address] EOSINOPHILS TOTAL PER COUNTED LEUKOCYTES IN BODY FLUID BY MANUAL COUNT [facility] Comment on above: Order Comment: Diffe rential performed on cytospin Performed By: #### L [id number] ####[facility] [place] [address] LYMPHOCYTES TOTAL PER COUNTED LEUKOCYTES IN BODY FLUID BY MANUAL COUNT 13 Normal [facility] Comment on above: Order Comment: Diffe rential performed on cytospin Performed By: #### L [id number] ####[facility] ([facility])[address] [place] [address] MESOTHELIAL CELLS TOTAL PER COUNTED LEUKOCYTES IN BODY FLUID BY MANUAL COUN Normal [facility] Comment on above: Order Comment: Diffe rential performed on cytospin Performed By: #### L [id number] ####[facility] ([facility])[address] [place] [address] MONOCYTES+MACROPHAGE S TOTAL PER COUNTED LEUKOCYTES IN BODY FLUID BY MANUAL 36 Normal [facility] Comment on above: Order Comment: Diffe rential performed on cytospin Performed By: #### L [id number] ####[facility] ([facility])[address] [place] [address] NEUTROPHILS TOTAL PER COUNTED LEUKOCYTES IN BODY FLUID BY MANUAL COUNT 51 Normal [facility] Comment on above: Order Comment: Diffe rential performed on cytospin Performed By: #### L [id number] ####[facility] ([facility])[address] [place] [address] OTHER CELLS BODY FLUID (MANUAL) Normal [facility] Comment on above: Order Comment: Diffe rential performed on cytospin Performed By: #### L [id number] ####[facility] ([facility])[address] [place] [address] CBC WITH AUTO DIFFERENTIALon 03-14-2024 Erythrocyte distribution width (RBC) [Ratio] 14.7 % Normal 11.5-15.0 [facility] Comment on above: Performed By: #### L [id number] ####[facility] ([facility])[address] [place] [address] ERYTHROCYTE MEAN CORPUSCULAR HEMOGLOBIN CONCENTRATION (G/DL) BY AUTOMATED 31.6 g/dL Low 32.0-35.0 [facility] Comment on above: Performed By: #### L [id number] ####[facility] ([facility])[address] [place] [address] Hematocrit (Bld) [Volume fraction] 34.2 % Low 36.0-48.0 [facility] Comment on above: Performed By: #### L [id number] ####[facility] [place] [address] Hemoglobin (Bld) [Mass/Vol] 10.8 g/dL Low 12.0-15.0 [facility] Comment on above: Performed By: #### L [id number] ####[facility] ([facility])[address] [place] [address] MCH (RBC) [Entitic mass] 29.8 pg Normal 27.0-33.0 [facility] Comment on above: Performed By: #### L [id number] ####[facility] [place] [address] MCV (RBC) [Entitic vol] 94.5 fL Normal 82.0-98.0 [facility] Comment on above: Performed By: #### L [id number] ####[facility] ([facility])[address] [place] [address] NRBC (PER 100 WBCS) BY AUTOMATED COUNT 0.0 % Normal 0 [facility] Comment on above: Performed By: #### L [id number] ####[facility] ([facility])[address] [place] [address] PLATELETS (10*3/UL) IN BLOOD AUTOMATED COUNT 218 10*3/uL Normal 150-400 [facility] Comment on above: Performed By: #### L [id number] ####[facility] ([facility])[address] [place] [address] RBC (Bld) [#/Vol] 3.62 10*6/uL Low 3.80-5.00 [facility] Comment on above: Performed By: #### L [id number] ####[facility] [place] [address] WBC (Bld) [#/Vol] 18.33 10*3/uL High 4.00-10.60 [facility] Comment on above: Performed By: #### L [id number] ####[facility] ([facility])[address] [place] [address] CONSULTon 03-14-2024 CONSULT Normal [facility] FUNGAL CULTUREon 03-14-2024 FUNGAL SMEAR No yeast or fungal e lements seen Normal [facility] Comment on above: Performed By: #### L [id number] ####[facility])[address] [place] [address] HEMOGLOBIN AND HEMATOCRIT, B LOODon 03-14-2024 Hematocrit (Bld) [Volume fraction] 31.9 % Low 36.0-48.0 [facility] Comment on above: Performed By: #### L [id number] ####[facility] ([facility])[address] [place] [address] Hemoglobin (Bld) [Mass/Vol] 10.3 g/dL Low 12.0-15.0 [facility] Comment on above: Performed By: #### L [id number] ####[facility] ([facility])[address] [place] [address] HPon 03-14-2024 HP Normal [facility] IGG, IGA, IGMon 03-14-2024 Magnesium [Mass/Vol] 1340 mg/dL Normal 591-1540 [facility] Comment on above: Performed By: #### L [id number] ####[facility] ([facility])[address] [place] [address] Magnesium [Mass/Vol] 517 mg/dL High 60-413 [facility] Comment on above: Performed By: #### L [id number] ####[facility] ([facility])[address] [place] [address] Magnesium [Mass/Vol] 95.3 mg/dL Normal 54-285 [facility] Comment on above: Performed By: #### L [id number] ####[facility] ([facility])[address] [place] [address] IMMUNOGLOBULIN Skyler IMMUNOGLOBIN E 32 IU/mL Normal 0-100 [facility] Comment on above: Result Comment: Test Performed by [facility] [address] [place] [address] - Released 03/14/2024 23:25 Performed By: #### L [id number] ####[facility] [id number] [place] [address] LACTIC ACID WITH 4 HOUR REFL EXon 03-14-2024 LACTATE (MMOL/L) IN SER/PLAS 0.3 mmol/L Low 0.5-2.2 [facility] Comment on above: Performed By: #### L [id number] ####[facility] [place] [address] MAGNESIUMon 03-14-2024 Magnesium [Mass/Vol] 1.5 mg/dL Low 1.9-2.7 [facility] Comment on above: Performed By: #### L [id number] ####[facility] ([facility])[address] [place] [address] MANUAL DIFFERENTIALon 2023 BASOPHILS (10*3/UL) IN BLOOD BY CALCULATION 0.04 10*3/uL Normal 0.00-0.20 [facility] Comment on above: Performed By: #### L [id number] ####[facility] ([facility])[address] [place] [address] BASOPHILS/100 LEUKOCYTES IN BLOOD BY AUTOMATED COUNT 0.2 % Normal 0.0-1.0 [facility] Comment on above: Performed By: #### L [id number] ####[facility] ([facility])[address] [place] [address] EOSINOPHILS (10*3/UL) IN BLOOD BY CALCULATION 0.00 10*3/uL Normal 0.00-0.50 [facility] Comment on above: Performed By: #### L [id number] ####[facility] ([facility])[address] [place] [address] EOSINOPHILS/100 LEUKOCYTES IN BLOOD BY AUTOMATED COUNT 0.0 % Normal 0.0-6.0 [facility] Comment on above: Performed By: #### L [id number] ####[facility] ([facility])[address] [place] [address] IMMATURE GRANULOCYTES (10*3/UL) IN BLOOD BY CALCULATION 0.09 10*3/uL Normal 0.00-0.20 [facility] Comment on above: Performed By: #### L [id number] ####[facility] ([facility])[address] [place] [address] IMMATURE GRANULOCYTES/100 LEUKOCYTES IN BLOOD BY AUTOMATED COUNT 0.5 % Normal 0.0-1.0 [facility] Comment on above: Performed By: #### L [id number] ####[facility] ([facility])[address] [place] [address] LYMPHOCYTES (10*3/UL) IN BLOOD BY CALCULATION 0.24 10*3/uL Low 1.20-4.00 [facility] Comment on above: Performed By: #### L [id number] ####[facility] ([facility])[address] [place] [address] LYMPHOCYTES/100 LEUKOCYTES IN BLOOD BY AUTOMATED COUNT 1.3 % Low 20.0-45.0 [facility] Comment on above: Performed By: #### L [id number] ####[facility] ([facility])[address] [place] [address] MONOCYTES (10*3/UL) IN BLOOD BY CALCUATION 0.97 10*3/uL Normal 0.10-1.00 [facility] Comment on above: Performed By: #### L [id number] ####[facility] ([facility])[address] [place] [address] MONOCYTES/100 LEUKOCYTES IN BLOOD BY AUTOMATED COUNT 5.3 % Normal 5.0-12.0 [facility] Comment on above: Performed By: #### L [id number] ####[facility] ([facility])[address] [place] [address] NEUTROPHILS (10*3/UL) IN BLOOD BY CALCULATION 17.0 10*3/uL High 1.6-7.6 [facility] Comment on above: Performed By: #### L [id number] ####[facility] ([facility])[address] [place] [address] NEUTROPHILS/100 LEUKOCYTES IN BLOOD BY AUTOMATED COUNT 92.7 % High 40.0-72.0 [facility] Comment on above: Performed By: #### L [id number] ####[facility] ([facility])[address] [place] [address] MYCOPLASMA PNEUMONIAE ANTIBO DY, IGMon 03-14-2024 MYCOPLASMA PNEUMONIAE IGM 0.43 U/L Normal <=0.76 [facility] Comment on above: Result Comment: INTE RPRETIVE [...] for more than 12 months post-infection.Performed By: [facility] [place], [place] [address]Glhclfabod Director: Tip Hathaway MD, PhDCLIA Number: [id number] Performed By: #### L [id number] ####[facility] ([facility])[address] [place] [address] MYCOPLASMA PNEUMONIAE PCRon 03-14-2024 MYCOPLASMA PNEUMONIAE PCR Not detected Normal [facility] Comment on above: Result Comment: NOT DETECTED - A negative result does not rule out thepresence of PCR inhibitors in the patient specimen orassay specific nucleic acid in concentrations below thelevel of detection by the assay.INTERPRETIVE INFORMATION: Mycoplasma pneumoniae by PCRThis test was developed and its performance characteristicsdetermined by [facility]. It has not been cleared orapproved by the [place] Food and Drug Administration. This test wasperformed in a CLIA certified laboratory and is intended forclinical purposes.Performed By: [facility] [id number] [place], [place] [address]Ohzoethogh Director: Tip Hathaway MD, PhDCLIA Number: [id number] Performed By: #### L [id number] ####[facility] (BEAKER)[address] [place] [address] MYCOPLASMA PNEUMONIAE SOURCE Bronchial wash Normal [facility] Comment on above: Performed By: #### L [id number] ####[facility] (BEAKER)[address] [place] [address] NON-RETAIL SALES CLERK CYTOLOGY - CELLULAR EXAMon 03-14-2024 LAB AP CASE REPORT [facility] Comment on above: Result Comment: Non- gynecologic Cytology Case: [id number] Provider: Quinn Kent MD Collected: 03/14/2024 1535Ordering Location: [facility] Intensive Received: 03/15/2024 0721 CarePathologist: DAVID Reddypecimen: Bronchoalveolar lavage, right lower lobe Performed By: #### L [id number] ####[facility] ([facility])[address] [place] [address] LAB AP CLINICAL INFORMATION Hemoptysis Normal [facility] Comment on above: Performed By: #### L [id number] ####[facility] (BEAKER)[address] [place] [address] LAB AP GROSS DESCRIPTION Normal [facility] Comment on above: Result Comment: 27 m L cloudy, red mucoid fluid Performed By: #### L AB13 ####[facility] (BEAKER)[address] [place] [address] LAB AP REPORT FINAL DIAGNOSIS NARRATIVE Normal [facility] Comment on above: Result Comment: A. L óscar, right lower lobe, bronchoalveolar lavage: - Negative for malignancy - Marked acute inflammation and bacteria present. Performed By: #### L AB13 ####[facility] (BEAKER)[address] [place] [address] PATHOLOGY REVIEWon PATHOLOGY REVIEW Electronically pete d by Eboni Celis MD on 03/22/24 at 12:41 PM. Normal [facility] Comment on above: Performed By: #### L [id number] ####[facility] (BEAKER)[address] [facility] [place] [address] PHOSPHORUSon 03-14-2024 Magnesium [Mass/Vol] 3.7 mg/dL Normal 2.5-5.0 [facility] Comment on above: Performed By: #### L [id number] ####[facility] (BEAKER)[address] [place] [address] PNEUMOCYSTIS SMEAR BY DFAon 03-14-2024 PNEUMOCYSTIS SMEAR, DFA Negative Normal Negative [facility] Comment on above: Performed By: #### L [id number] ####[facility] (BEAKER)[address] [facility] [place] [address] PROTIME-INRon 03-14-2024 INR IN PPP BY COAGULATION ASSAY 1.08 Normal 0.90-1.10 [facility] Comment on above: Result Comment: ACCC P [...] CHEST 1995;108:[id number]-246S. Performed By: #### L [id number] ####[facility] ([facility])[address] [place] [address] PROTHROMBIN TIME (PT) IN PPP BY COAGULATION ASSAY 14.0 Seconds Normal 12.3-14.8 [facility] Comment on above: Performed By: #### L [id number] ####[facility] ([facility])[address] [place] [address] RESPIRATORY CULTUREon 2023 Bacteria identified Cx Nom (Unsp spec) Normal [facility] Comment on above: Result Comment: >10, 000 CFU/mL of Colonies Consistent with Upper Respiratory Li Performed By: #### L AB900 ####[facility] ([facility])[address] [place] [address] GRAM STAIN RESULT Normal [facility] Comment on above: Result Comment: Poly morphonuclear leukocytesGram positive cocci in pairsGram negative bacilliCytocentrifuge sample Performed By: #### L AB900 ####[facility] ([facility])[address] [place] [address] TRIGLYCERIDESon 03-14-2024 FASTING? unknown Normal [facility] Comment on above: Order Comment: Monit or triglycerides while patient is on propofol. Consult Nutrition if greater than 500 mg/dL. Performed By: #### L AB134 ####[facility] ([facility])[address] [place] [address] Magnesium [Mass/Vol] 84 mg/dL Normal 40-149 [facility] Comment on above: Order Comment: Monit or triglycerides while patient is on propofol. Consult Nutrition if greater than 500 mg/dL. Result Comment: TRIG LYCERIDE REFERENCE RANGE:20 YEARS AND OLDER CARDIOVASCULAR RISKLESS THAN 150 mg/dL LOW [id number] TO 199 mg/dL BORDERLINE HLEQ594 mg/dL AND GREATER HIGH RISK Performed By: #### L AB134 ####[facility] ([facility])[address] [place] [address] TROPONIN Ion 03-14-2024 Troponin I.cardiac [Mass/Vol] 0.05 ng/mL High 0.00-0.04 [facility] Comment on above: Performed By: #### L [id number] ####[facility] (BEAKER)[address] [place] [address] Troponin I.cardiac [Mass/Vol] 0.06 ng/mL High 0.00-0.04 [facility] Comment on above: Performed By: #### L [id number] ####[facility] (BEAKER)[address] [place] [address] TYPE AND SCREENon 03-14-2024 AB SCREEN Negative Normal [facility] Comment on above: Performed By: #### L AB276 ####[facility], ABO group Nom (Bld) A Normal [facility] Comment on above: Performed By: #### L AB276 ####[facility], RH TYPE IN BLOOD Negative Normal [facility] Comment on above: Performed By: #### L AB276 ####[facility], BI MAMMOGRAM SCREENING TOMOS YNTHESIS [...] IS VERY IMPORTANT TO YOUR HEALTH. THE [employer] GUIDELINES RECOMMEND THAT WOMEN 40 [...] Chem eGFR 99 mL/min/1.73 m2 Normal >=59mL/min / 1.73 m2 Remisol Chem Globulin (S) [Mass/Vol] 3.7 [...] 02-26-2024 Albumin [Mass/Vol] 4.1 g/dL Normal 3.3-5.0 [facility] Comment on above: Performed By: #### 2 [id number] #### [facility] Laboratory [address] [place] [address] Albumin/Globulin (S) [Mass conc ratio] 1.1 Normal 1.1-2.2 [facility] Comment on above: Performed By: #### 2 [id number] #### [facility] Laboratory [address] [place] [address] ALP [Catalytic activity/Vol] 47 Int._Unit/L Normal 21-98 [facility] Comment on above: Performed By: #### 2 [id number] #### [facility] Laboratory [address] [place] [address] ALT No additional P-5'-P [Catalytic activity/Vol] 9 Int._Unit/L Normal 6-46 [facility] Comment on above: Performed By: #### 2 710078 #### [facility] [address] [place] [address] Anion gap [Moles/Vol] 11 mmol/L Normal 6-16 [facility] Comment on above: Performed By: #### 2 [id number] #### [facility] [address] [place] [address] AST [Catalytic activity/Vol] 16 Int._Unit/L Normal 5-43 [facility] Comment on above: Performed By: #### 2 058813 #### [facility] [address] [place] [address] Bilirubin [Mass/Vol] 0.4 mg/dL Normal 0.0-1.1 [facility] Comment on above: Performed By: #### 2 [id number] #### [facility] [address] [place] [address] Calcium [Mass/Vol] 9.8 mg/dL Normal 8.9-11.1 [facility] Comment on above: Performed By: #### 2 527105 #### [facility] [address] [place] [address] Chloride [Moles/Vol] 102 mmol/L Normal 101-111 [facility] Comment on above: Performed By: #### 2 096867 #### [facility] [address] [place] [address] CO2 [Moles/Vol] 27 mmol/L Normal 21-31 [facility] Comment on above: Performed By: #### 2 [id number] #### [facility] [address] [place] [address] Creatinine [Mass/Vol] 0.6 mg/dL Normal 0.5-1.3 [facility] Comment on above: Performed By: #### 2 714444 #### [facility] [address] [place] [address] Globulin (S) [Mass/Vol] 3.7 g/dL Normal 1.4-4.0 [facility] Comment on above: Performed By: #### 2 197165 #### [facility] [address] [place] [address] Glucose [Mass/Vol] 67 mg/dL Normal 55-199 [facility] Comment on above: Performed By: #### 2 905358 #### [facility] [address] [place] [address] Potassium [Moles/Vol] 4.2 mmol/L Normal 3.5-5.3 [facility] Comment on above: Performed By: #### 2 505192 #### [facility] [address] [place] [address] Protein [Mass/Vol] 7.8 g/dL Normal 6.0-7.8 [facility] Comment on above: Performed By: #### 2 471492 #### [facility] [address] [place] [address] Sodium [Moles/Vol] 136 mmol/L Normal 135-145 [facility] Comment on above: Performed By: #### 2 878243 #### [facility] [address] [place] [address] Urea nitrogen [Mass/Vol] 15 mg/dL Normal 5-21 [facility] Comment on above: Performed By: #### 2 242955 #### [facility] [address] [place] [address] Urea nitrogen/Creatinine [Mass ratio] 25 No Units High 10-20 [facility] Comment on above: Performed By: #### 2 713113 #### [facility] [address] [place] [address] General Surgery Office/Clini c Noteon 02-26-2024 General Surgery Office/Clinic Note General Surgery Office/Clinic Note Chief Complaint Hormone positive left breast cancer surveillance visit HPI Staff Emeli is a 63 y.o. female here for 3 month follow up Hx of left breast cancer s/p [place] Node biopsy of left done 04/11/2023 Denies [...] E&M of Est. Patient Low 20-29 Min 46573 Personal history of malignant neoplasm of breast (Z85.3: Personal history of malignant neoplasm of breast) As above Portions of this record may have been created with voice recognition artificial intelligence software, specifically [employer], [employer] and or [employer]. Substitutions may have occurred due to the [...] 50,000 intl units (1.25 mg) oral capsule, [address] International_Unit= 1 cap(s), Oral, qWeek Allergies No [...] influenza virus vaccine, inactivated 07/14/2014 Recorded Normal [facility] Comment on above: Result Comment: Elec tronically Signed By: Aurora RICE, Lauro Peacock\Date and Time Signed: 02/26/24 14:44 EDT eGFRon 02-26-2024 eGFR 99 mL/min/1.73 m2 Normal >=59 [facility] Comment on above: Order Comment: Order added by Discern Expert. Performed By: #### 1 [id number] #### [facility] Laboratory [address] [place] [address] CNOVon 02-20-2024 CNOV Office Visit (NEMN ) EMELI KAUFMAN ([id number]) 1960 F Date Time Provider Department 02/20/24 1:00 PM [facility] During your visit today, we recorded the following information about you: Pulse Blood pressure Weight Height 83/minute 133/81 59 kg 1.651 m Chris Baum MD 02/20/2024 5:38 PM [facility] FOLLOWUP/ESTABLISHED PATIENT VISIT Also followed by: [...] modifying therapy. Neuro-QoL Functions (higher=better functioning) Flowsheet [facility] Office Visit from 02/20/2024 in [facility] Office Visit from 07/01/2015 in [facility] Office Visit from 05/28/2014 in [facility] Upper Extremity Domain T Score 57 47.9 56.84 Lower Extremity Domain T Score 50 48.92 55.49 Cognitive Function Domain T Score 67 -- -- Positive Affect Well Being T Score -- -- -- Ability To Participate In Social Roles T Score 56 -- -- Satisfaction With Social Roles T Score 62 -- -- Neuro-QoL Symptoms (higher=worse symptoms) Flowsheet [facility] Office Visit from 02/20/2024 in [facility] Office Visit from 07/01/2015 in [facility] Office Visit from 05/28/2014 in [facility] Sleep Domain T Score 32 38.15 40.22 [...] without mention of status migrainosus, Multiple sclerosis (HCC), Pulmonary infiltrate, and Sciatica. She has no past medical history of Atrial fibrillation (HCC), Cancer (HCC), Chronic obstructive pulmonary disease (COPD) (HCC), Chronic renal insufficiency, Congestive heart failure (HCC), Coronary artery disease, Depression, Diabetes (HCC), Epilepsy (HCC), Hypertension, Obstructive sleep apnea, Steroid long-term use, Stroke (HCC), or Substance abuse (HCC). has a current medication list which includes the following prescription(s): letrozole, latanoprost, cholecalciferol, calcium carbonate, sodium chloride, albuterol, ipratropium bromide, and nebulizer and compressor for neb. EXAM: BP 133/81 Pulse 83 Ht 165.1 cm (5' 5 ) Wt 59 kg (130 lb) BMI 21.63 kg/m? MSPT Results Flowsheet [facility] Office Visit from 12/11/2015 in [facility] Office Visit from 07/01/2015 in [facility] Office Visit from 05/28/2014 in [facility] Processing Speed Total Number Correct -- -- [...] Muscle tone: (more content not included)... Normal [facility] Oncology Progress Noteon Oncology Progress [...] left breast invasive lobular carcinoma, ER +90%, [place] +20 to 30%, HER2/elif 1+, and Ki67 was positive 1%. 2 out of 2 sentinel lymph node with positive for macro metastatic disease. Her tumor was discussed at the [facility] tumor board patient is to obtain Oncotype [...] Lumpectomy with wire-guided localization LYMPH NODE SAMPLING: [place] lymph node(s) SPECIMEN INTEGRITY: multiple specimens (A [...] to adjuv (more content not included)... Normal [facility] Consent for Treatmenton 11-15 Consent for Treatment [id number] Normal [facility] Immunoglobs. A/E/G/Mon 11-26 IgA Quant duplt test Invalid Interpretation Code [facility] Comment on above: Performed By: #### 2 [id number], 64016658, 8999575, 09491542, 2006042, 27492773 ####[facility] [address] [place] [address] IgG Quant duplt test Invalid Interpretation Code [facility] Comment on above: Performed By: #### 2 89433039, 18286647, 7271325, 64031515, 7996378, 25169022 ####[facility] [address] [place] [address] IgM Quant duplt test Invalid Interpretation Code [facility] Comment on above: Performed By: #### 2 30208533, 99817774, 3407868, 36459022, 0723768, 36312092 ####[facility] [address] [place] [address] Free K+L Lt Chains,Qn,Son Immunoglobulin light chains.kappa.free (S) [Mass/Vol] 32.2 mg/L High 3.3-19.4 [facility] Comment on above: Performed By: #### 2 81258270, 96977413, 2919240, 22364731, 3498593, 80959989 ####[facility] [address] [place] [address] Immunoglobulin light chains.kappa.free/Im munoglobulin light chains.lambda.free (S) [Mass ratio] 1.11 Invalid Interpretation Code 0.26-1.65 [facility] Comment on above: Result Comment: Perf ormed at: [facility] [address] [id number] PhD Adelfo Shannon Performed By: #### 2 00638269, 39922900, 5504931, 97199595, 8814887, 63147191 ####[address] [place] [place] [address] Immunoglobulin light chains.lambda.free [Mass/Vol] 28.9 mg/L High 5.7-26.3 [facility] Comment on above: Performed By: #### 2 01116751, 24018836, 2975694, 20966275, 1010008, 78531955 ####[address] [address] JULIO and PE, Serumon 11-26-19 24 Albumin [Mass/Vol] 3.6 g/dL Invalid Interpretation Code 2.9-4.4 [facility] Comment on above: Performed By: #### 2 13120382, 51869262, 4974476, 93601646, 4695472, 74259985 ####[address] [address] Albumin/Globulin [Mass ratio] 0.9 {ratio} Invalid Interpretation Code 0.7-1.7 [facility] Comment on above: Performed By: #### 2 75576806, 01633011, 9395525, 51337270, 9800633, 80553655 ####[address] [address] Alpha 1 globulin Elph [Mass/Vol] 0.4 g/dL Invalid Interpretation Code 0.0-0.4 [facility] Comment on above: Performed By: #### 2 15059872, 73954522, 6165503, 99793726, 5455994, 24843156 ####[address] [address] Alpha 2 globulin Elph [Mass/Vol] 0.9 g/dL Invalid Interpretation Code 0.4-1.0 [facility] Comment on above: Performed By: #### 2 79715923, 30858732, 3709929, 15342948, 2028731, 85335724 ####[address] [place] [address] Beta globulin Elph [Mass/Vol] 1.2 g/dL Invalid Interpretation Code 0.7-1.3 [facility] Comment on above: Performed By: #### 2 64759937, 06403724, 1786903, 35720666, 7712661, 69274680 ####[facility] [address] [place] [address] Gamma globulin Elph [Mass/Vol] 1.7 g/dL Invalid Interpretation Code 0.4-1.8 [facility] Comment on above: Performed By: #### 2 68082206, 78171619, 2616530, 04568193, 9657350, 97226251 ####[address] [place] [address] Globulin (S) [Mass/Vol] 4.2 g/dL High 2.2-3.9 [facility] Comment on above: Performed By: #### 2 06594296, 62859596, 0667588, 97644731, 7517328, 19675462 ####[address] [place] [address] IgA [Mass/Vol] 552 mg/dL High 87-352 [facility] Comment on above: Performed By: #### 2 75351341, 79846682, 2170544, 99866820, 9597138, 23532311 ####[address] [place] [address] IgG [Mass/Vol] 1650 mg/dL High 586-1602 [facility] Comment on above: Performed By: #### 2 51472369, 30991361, 9710911, 27565060, 8609491, 67910563 ####[facility] [address] [place] [address] IgM [Mass/Vol] 112 mg/dL Invalid Interpretation Code 26-217 [facility] Comment on above: Performed By: #### 2 17007122, 90660108, 8523156, 71067789, 1325113, 33622472 ####[facility] [address] [place] [address] Interpretation IEP [Interp] Comment Invalid Interpretation Code [facility] Comment on above: Result Comment: No m onoclonality detected. Performed By: #### 2 32530105, 24942817, 5771328, 91812696, 4012135, 24030811 ####[facility] [address] [place] [address] Laboratory comment Yossi (Report) Comment Invalid Interpretation Code [facility] Comment on above: Result Comment: Prot ein electrophoresis scan will follow via computer, mail, or yoghurt maker delivery. Performed at: [facility] [id number] PhD Adelfo Shannon Performed By: #### 2 15104225, 99625088, 8508589, 38092798, 3157013, 02866775 ####[facility] [address] [place] [address] Protein [Mass/Vol] 7.8 g/dL Invalid Interpretation Code 6.0-8.5 [facility] Comment on above: Performed By: #### 2 39633407, 92315423, 7939672, 77722014, 7003108, 38423588 ####[facility] [address] [place] [address] Protein.monoclonal Elph [Mass/Vol] Not Observed Invalid Interpretation Code Not Observed [facility] Comment on above: Performed By: #### 2 19173068, 19594283, 8328173, 60289264, 9718356, 76622550 ####[facility] [address] [place] [address] Immunoglobs. A/E/G/Mon 11-25 IgE Qn 21 International_Unit/mL Invalid Interpretation Code 6-495 [facility] Comment on above: Result Comment: Perf ormed at: [facility] [address] [id number] MD José Miguel Shipman Performed By: #### 2 30385550, 67384306, 3827272, 33159400, 3596167, 93637506 ####[address] [address] CBC w/ Auto Diffon 4 Basophils/100 WBC (Bld) 0.6 % Normal 0.0-2.0 [facility] Comment on above: Performed By: #### 2 73186568, 66777749, 5587802, 72040501, 2613777, 35529919 ####[address] [address] Basophils/Leukocytes Auto (Bld) [Pure # fraction] 0.0 E9/L Normal 0.0-0.2 [facility] Comment on above: Performed By: #### 2 75065961, 47587264, 6902297, 79314220, 8307519, 48016004 ####[place] [address] Eosinophils (Bld) [#/Vol] 0.0 E9/L Normal 0.0-0.5 [facility] Comment on above: Performed By: #### 2 56804013, 14929265, 5627687, 98811011, 6566580, 28492151 ####[address] [address] Eosinophils/100 WBC (Bld) 0.9 % Normal 0.0-8.0 [facility] Comment on above: Performed By: #### 2 20767290, 35046153, 4263307, 07932863, 7088078, 85031171 ####[place] [address] Erythrocyte distribution width (RBC) [Ratio] 14.3 % High 10.9-14.2 [facility] Comment on above: Performed By: #### 2 47556867, 85974123, 7018706, 13726055, 5032932, 33924391 ####[address] [address] Hematocrit (Bld) [Volume fraction] 37.7 % Normal 34.0-46.0 [facility] Comment on above: Performed By: #### 2 65542119, 91479303, 5189081, 69455715, 6172630, 19361502 ####[facility] [address] [place] [address] Hemoglobin (Bld) [Mass/Vol] 12.2 g/dL Normal 12.0-16.0 [facility] Comment on above: Performed By: #### 2 47819992, 02032769, 4805770, 53198448, 8860034, 62028313 ####[facility] [address] [place] [address] Lymphocytes (Bld) [#/Vol] 0.7 E9/L Low 1.0-4.0 [facility] Comment on above: Performed By: #### 2 93811720, 72705235, 7934451, 56514007, 5602166, 35781415 ####[facility] [address] [place] [address] Lymphocytes/100 WBC (Bld) 16.0 % Normal 14.0-50.0 [facility] Comment on above: Performed By: #### 2 47816083, 61342293, 6628206, 83654555, 0990888, 55783964 ####[address] [address] MCH (RBC) [Entitic mass] 29.4 pg Normal 27.0-34.0 [facility] Comment on above: Performed By: #### 2 50165985, 58108900, 8984123, 05105939, 6389757, 88356343 ####[facility] [address] [place] [address] MCHC (RBC) [Mass/Vol] 32.3 g/dL Normal 31.4-36.0 [facility] Comment on above: Performed By: #### 2 08429954, 83269761, 4110540, 09834655, 9185489, 68406188 ####[address] [place] [address] MCV (RBC) [Entitic vol] 90.9 fL Normal 80.0-100.0 [facility] Comment on above: Performed By: #### 2 55951939, 89464309, 7658245, 87403129, 1056244, 53761030 ####[address] [address] Monocytes (Bld) [#/Vol] 0.6 E9/L Normal 0.2-1.0 [facility] Comment on above: Performed By: #### 2 35882396, 90946932, 9526501, 62240897, 1360566, 39937936 ####[address] [address] Neutrophils (Bld) [#/Vol] 3.2 E9/L Normal 2.0-7.5 [facility] Comment on above: Performed By: #### 2 62231505, 61456276, 1773164, 65041145, 7955863, 88725283 ####[address] [address] Neutrophils/100 WBC (Bld) 68.5 % Normal 36.0-75.0 [facility] Comment on above: Performed By: #### 2 71498331, 11781629, 9889703, 07794218, 2165470, 84922679 ####[address] [address] Platelet 290.0 E9/L Normal 150.0-500.0 [facility] Comment on above: Performed By: #### 2 99749165, 73508732, 5311028, 09676615, 3604052, 58972677 ####[address] [address] Platelet mean volume (Bld) [Entitic vol] 6.9 fL Normal 6.4-10.8 [facility] Comment on above: Performed By: #### 2 71691040, 22756289, 8815021, 92556980, 7224132, 91166287 ####[facility] [address] [place] [address] RBC (Bld) [#/Vol] 4.2 E12/L Low 4.3-5.9 [facility] Comment on above: Performed By: #### 2 42880425, 88987363, 5304714, 45441464, 9233571, 20368447 ####[facility] [address] [place] [address] WBC corrected for nucl RBC Auto (Bld) [#/Vol] 4.6 E9/L Normal 4.0-11.0 [facility] Comment on above: Performed By: #### 2 26505663, 08398845, 7132912, 75330318, 7824524, 41177153 ####[facility] [address] [place] [address] CHEMISTRYOrdered By: SYSTEM SYSTEM on 11-20-2023 Albumin [...] Chem eGFR 100 mL/min/1.73 m2 Normal >=59mL/mi n/ 1.73 m2 Remisol Chem Globulin (S) [Mass/Vol] 4.0 [...] 11-20-2023 Albumin [Mass/Vol] 4.1 g/dL Normal 3.3-5.0 [facility] Comment on above: Performed By: #### 2 92614783, 19685476, 0997381, 08696695, 9919368, 82885571 ####[facility] [address] [place] [address] Albumin/Globulin (S) [Mass conc ratio] 1.0 Low 1.1-2.2 [facility] Comment on above: Performed By: #### 2 37352438, 97340526, 7999458, 49502114, 0216840, 71350266 ####[facility] [address] [place] [address] ALP [Catalytic activity/Vol] 52 Int._Unit/L Normal 21-98 [facility] Comment on above: Performed By: #### 2 85545529, 11537439, 9269979, 42081324, 7010236, 56555186 ####[facility] [address] [place] [address] ALT No additional P-5'-P [Catalytic activity/Vol] 13 Int._Unit/L Normal 6-46 [facility] Comment on above: Performed By: #### 2 49411040, [id number], 9029612, 87112875, 4937886, [id number] ####[address] [place] [address] Anion gap [Moles/Vol] 11 mmol/L Normal 6-16 [facility] Comment on above: Performed By: #### 2 [id number], 75488880, 1667698, 64874551, 4471855, 65265794 ####[address] [address] AST [Catalytic activity/Vol] 19 Int._Unit/L Normal 5-43 [facility] Comment on above: Performed By: #### 2 [id number], 25841738, 0971298, 70666343, 7445753, 52223152 ####[address] [address] Bilirubin [Mass/Vol] 0.6 mg/dL Normal 0.0-1.1 [facility] Comment on above: Performed By: #### 2 92732656, 36997603, 8227183, 07716835, 0316705, 39623957 ####[address] [address] Calcium [Mass/Vol] 9.4 mg/dL Normal 8.9-11.1 [facility] Comment on above: Performed By: #### 2 [id number], 30311292, 6582491, 70744439, 1189120, 43744863 ####[facility] [address] [place] [address] Chloride [Moles/Vol] 103 mmol/L Normal 101-111 [facility] Comment on above: Performed By: #### 2 40058444, 53014108, 6514912, 35509225, 1881465, 48044170 ####[facility] [address] [place] [address] CO2 [Moles/Vol] 28 mmol/L Normal 21-31 [facility] Comment on above: Performed By: #### 2 98945900, 75449047, 9738109, 80912162, 4138689, 08010307 ####[facility] [address] [place] [address] Creatinine [Mass/Vol] 0.6 mg/dL Normal 0.5-1.3 [facility] Comment on above: Performed By: #### 2 67799138, 01989815, 3040519, 02629079, 9495256, 59191350 ####[facility] [address] [place] [address] Globulin (S) [Mass/Vol] 4.0 g/dL Normal 1.4-4.0 [facility] Comment on above: Performed By: #### 2 [id number], 38015535, 7075992, 11638984, 2935199, 18589837 ####[facility] [address] [place] [address] Glucose [Mass/Vol] 84 mg/dL Normal 55-199 [facility] Comment on above: Performed By: #### 2 18610071, 21670576, 6920106, 23098914, 1874530, 86492003 ####[facility] [address] [place] [address] Potassium [Moles/Vol] 4.2 mmol/L Normal 3.5-5.3 [facility] Comment on above: Performed By: #### 2 26384007, 13064088, 7794971, 62569259, 5050020, 77621762 ####[facility] [address] [place] [address] Protein [Mass/Vol] 8.1 g/dL High 6.0-7.8 [facility] Comment on above: Performed By: #### 2 80061075, 09184794, 8161429, 53174300, 7816442, 61617960 ####[facility] [address] [place] [address] Sodium [Moles/Vol] 138 mmol/L Normal 135-145 [facility] Comment on above: Performed By: #### 2 [id number], 85243813, 8316145, 06789833, 5960933, 16630810 ####[facility] [address] [place] [address] Urea nitrogen [Mass/Vol] 17 mg/dL Normal 5-21 [facility] Comment on above: Performed By: #### 2 69120091, 86059380, 9542167, 44985531, 3402155, 32891950 ####[facility] [address] [place] [address] Urea nitrogen/Creatinine [Mass ratio] 28 No Units High 10-20 [facility] Comment on above: Performed By: #### 2 [id number], 77725798, 9511056, 44960740, 7009723, 21355121 ####[facility] [address] [place] [address] Consent for Treatmenton Consent for Treatment [id number]#1.00TIFF Normal [facility] HEMATOLOGYOrdered By: SYSTEM SYSTEM on [...] 11-20-2023 eGFR 100 mL/min/1.73 m2 Normal >=59 [facility] Comment on above: Order Comment: Order added by Discern Expert. Performed By: #### 2 [id number], 85289790, 4715785, 79920817, 8368172, 08271090 ####[facility] [address] [place] [address] General Surgery Office/Clini c Noteon 11-14-2023 General Surgery Office/Clinic Note Chief Complaint 3 month follow up HPI Staff Emeli is a 62 y.o. female here for 3 month follow up Hx of left breast cancer s/p [place] Node biopsy of left done 04/11/2023 Denies [...] with voice recognition artificial intelligence software, specifically [employer], [employer] and or [employer]. Substitutions may have occurred due to the inherent limitations of voice recognition and artificial intelligence software. ATTESTATION: Documentation services were performed after patient or guardian consented to allow [employer] to record this visit. SANTA provider relations specialist and provider reviewed before signing. SANTA: [...] 50,000 intl units (1.25 mg) oral capsule, [address] International_Unit= 1 cap(s), Oral, qWeek Allergies No [...] Recorded diphthe (more content not included)... Normal [facility] Comment on above: Result Comment: [...] PM EDT With: Lauro Simon MD Where: [facility] General Surgery [place] Normal [facility] Insurance Correspondenceon 0 09-25-2023 Insurance Correspondence [id number]#1.00TIFF Normal [facility] Consent for Treatmenton 08-17 Consent for Treatment [id number]#1.00TIFF [facility] ED Pat Eduon 09-04-2023 ED Pat [facility] Nephrology Protein Blood Test Why am I [...] including vitamins, herbs, eye drops, creams, and zcfy-jue-jwuqwek medicines. ? Any medical conditions you have. [...] protein: ? Premature : 4.2?7.6 g/dL. ? [place]: 4.6?7.4 g/dL. ? : 6?6.7 g/dL. ? [...] provider. Document Revised: 03/26/2021 Document Reviewed: 03/26/2021 [employer] Patient Education ? 2022 [employer]. [facility] Oncology Progress Noteon Oncology Progress Note Chief Complaint Breast CA Pt has no major ques/concerns for doc today. Diagnoses 1. Breast cancer, left (C50.912: Malignant neoplasm of unspecified site of left female breast) Oncological History/ROS/PE/Assessment and Plan Chief Complaint Left breast invasive lobular carcinoma, ER +90%, AZ +20 to 30%, HER2/elif 1+, and Ki67 [...] left breast invasive lobular carcinoma, ER +90%, [place] +20 to 30%, HER2/elif 1+, and Ki67 was positive 1%. 2 out of 2 sentinel lymph node with positive for macro metastatic disease. Her tumor was discussed at the [facility] tumor board patient is to obtain Oncotype [...] Lumpectomy with wire-guided localization LYMPH NODE SAMPLING: [place] lymph node(s) SPECIMEN INTEGRITY: multiple specimens (A [...] present LYMPH NODES: Metastatic lymph node identified (/) Number of sentinel lymph nodes examined: 2 [...] invasive tumor cells, performed on previous biopsy (168), please refer to previous report for details [...] score of (more content not included)... Normal [facility] Outside Oncologyon 4 Outside Oncology [id number]#1.00TIFF Normal [facility] CHEMISTRYOrdered By: SYSTEM SYSTEM on [...] Consent for Treatmenton 08-17 Consent for Treatment [id number]#1.00TIFF Normal [facility] Hep Func Panelon 09-01-2023 Albumin [Mass/Vol] 4.0 g/dL Normal 3.3-5.0 [facility] Comment on above: Performed By: #### 2 [id number] ####[facility] [address] [facility] [place] [address] Albumin/Globulin [Mass ratio] 0.9 {ratio} Low 1.1-2.2 [facility] Comment on above: Performed By: #### 2 665956 ####[facility] [address] [place] [address] Alk Phos 67 Int._Unit/L Normal 21-98 [facility] Comment on above: Performed By: #### 2 001865 ####[facility] [address] [facility] [place] [address] ALT 11 Int._Unit/L Normal 6-46 [facility] Comment on above: Performed By: #### 2 389419 ####[address] [address] AST 18 Int._Unit/L Normal 5-43 [facility] Comment on above: Performed By: #### 2 291007 ####[facility] [address] [facility] [place] [address] Bili Direct 0.1 mg/dL Normal 0.0-0.4 [facility] Comment on above: Performed By: #### 2 681595 ####[facility] [address] [facility] [place] [address] Bili Indirect 0.4 mg/dL Normal 0.1-0.9 [facility] Comment on above: Performed By: #### 2 052355 ####[facility] [address] [facility] [place] [address] Bili Total 0.5 mg/dL Normal 0.0-1.1 [facility] Comment on above: Performed By: #### 2 174015 ####[facility] [address] [facility] [place] [address] Globulin (S) [Mass/Vol] 4.6 g/dL High 1.4-4.0 [facility] Comment on above: Performed By: #### 2 1440[address] ####[facility] [address] [place] [address] Protein [Mass/Vol] 8.6 g/dL High 6.0-7.8 [facility] Comment on above: Performed By: #### 2 483130 ####[facility] [address] [place] [address] Ambulatory Visit Summaryon 0 08-07-2023 Ambulatory Visit [...] EDT With: Aurora RICE, Lauro Toro Where: [facility] General Surgery [place] Normal [facility] General Surgery Office/Clini c Noteon 08-07-2023 General Surgery Office/Clinic Note Chief Complaint 3 month follow up HPI Staff Emeli is a 62 y.o. female here for 3 month follow up Hx of left breast cancer s/p [place] Node biopsy of left done 04/11/2023 denies breast changes She started letrozole 2.5 mg History of Present Illness 62-year-old female status post left breast needle localized lumpectomy, left axillary sentinel lymph node biopsy performed for ER positive AZ HER2 negative T1 N1 MX breast cancer 2 of 2 lymph nodes found to have metastases, low Oncotype DX with chemotherapy declined by medical oncology, completed radiation therapy at [facility] here today for breast cancer surveillance visit. [...] normal Assessment/Plan 62-year-old female with ER positive [place] HER2 negative breast cancer status post needle left breast localized lumpectomy left sentinel lymph node biopsy performed March 2023 here for surveillance visit 1. Breast cancer, left (C50.912: Malignant neoplasm of unspecified site of left female breast) Follow-up 3 months Ordered: E&M of Est. Patient Low 20-29 Min 19846 2. Encounter for follow-up surveillance of breast cancer (Z08: Encounter for follow-up examination after completed treatment for malignant neoplasm) As above Ordered: E&M of Est. Patient Low 20-29 Min [address] Portions of this record may have been created with voice recognition artificial intelligence software, specifically [employer], [employer] and or [employer]. Substitutions may have occurred due to the [...] 50,000 intl units (1.25 mg) oral capsule, [address] International_Unit= 1 cap(s), Oral, qWeek Allergies No [...] virus vaccine, inactivated 07/14/2014 Recorded Normal [facility] Comment on above: Result Comment: Elec tronically Signed By: Aurora RICE, Lauro Peacock\Date and Time Signed: 08/07/23 16:29 EST BD Bone Density DEXAon 06-01 BD Bone Density DEXA Exam Date/Time: 05/30/2023 14:43 EST Reason for Exam: M85.88;custodial medication use Report IMPRESSION: OSTEOPENIA. 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 COMPARISON: None available. COMMENTS: [...] Aamir Dale MD Transcribed by: MEAGAN Technologist: TAVIA [facility] Consent for Treatmenton 05-17 Consent for Treatment [id number]#1.00TIFF [facility] CHEMISTRYOrdered By: SYSTEM SYSTEM on 05-22-2023 [...] High 6.0 - 7.8 gm/dL [facility] CHEMISTRYOrdered By: SYSTEM SYSTEM on 02-22-2023 Anion gap [Moles/Vol] 11 mmol/L Normal 6 - 16 mEq/L [facility] Chloride [Moles/Vol] 105 mmol/L Normal 101 - 1 11 mmol/L [facility] CO2 [Moles/Vol] 26 mmol/L Normal 21 - 31 mmol/L [facility] Creatinine [Mass/Vol] 0.7 mg/dL Normal 0.5 - 1.3 mg/dL [facility] GFR/1.73 sq M.predicted among non-blacks MDRD (S/P/Bld) [Vol rate/Area] 97 mL/min/1.73 m2 Normal >=59mL/min/ 1.73 m2 [facility] Chem S Glucose [Mass/Vol] 93 mg/dL Normal [...] 6.6 E9/L Normal 4.0 - 11.0 E9/L [facility] [employer] CULTURE SPUTUMon 12-10-2022 CULTURE SPUTUM Culture Observations : NORMAL RESPIRATORY LI. Normal [facility] Comment on above: Performed By: #### C BC #### [facility] [address] [place] [address] Dr. Ildefonso Finn SPUTUM GRAM STAINon 12-11-19 23 COMMENTS Normal [facility] Comment on above: Performed By: #### S PUTGS #### [facility] [address] [address] [address] Ildefonso Finn DIPHTHEROIDS [facility] Comment on above: Performed By: #### S PUTGS #### [facility] [address] [place] [address] Dr. Ildefonso Finn EPITHELIALS <25 [facility] Comment on above: Performed By: #### S PUTGS #### [facility] [address] [address] [address] Ildefonso Finn FUNGAL ELEMENTS [facility] Comment on above: Performed By: #### S PUTGS #### [facility] [address] [address] [address] Ildefonso Finn GRAM NEG BACILLI [facility] Comment on above: Performed By: #### S PUTGS #### [facility] [address] [place] [address] Dr. Ildefonso Finn GRAM NEG DIPPLOCOCCI [facility] Comment on above: Performed By: #### S PUTGS #### [facility] [address] [address] [address] Ildefonso Finn GRAM POS BACILLI [facility] Comment on above: Performed By: #### S PUTGS #### [facility] [address] [address] [address] Ildefonso Finn GRAM POSITIVE COCCI MODERATE Normal [facility] Comment on above: Performed By: #### S PUTGS #### [facility] [address] [place] [address] Dr. Ildefonso Finn WBC (Bld) [#/Vol] 10*3/uL [facility] Comment on above: Performed By: #### S PUTGS #### [facility] [address] [place] [address] Dr. Ildefonso Finn Covid-19 PCR ([facility])on SARS-CoV-2 (COVID-19) RNA KARLA+probe Ql (Unsp spec) Not detected Normal NOT DETECTED [facility] Comment on above: Result Comment: [...] for this test is supported by the Medical Doctor Md of Health and Human Service's declaration that [...] used). Performed By: #### C VDTBH #### [facility] [address] [place] [address] Dr. Ildefonso Finn INFLUENZA A AND B AGon 09-15 [facility] SEE BELOW Normal [facility] Comment on above: Result Comment: Nega tive for Flu A protein angiten. Infection due to Flu A cannot be ruled out. Flu A angiten in the sample may be below the detection limit of the test. Performed By: #### I NFLUAB #### [facility] [address] [place] [address] Dr. Ildefonso Finn INFLUBNEG SEE BELOW Normal [facility] Comment on above: Result Comment: Nega tive for Flu B protein antigen. Infection due to Flu B cannot be ruled out. Flu B antigen in the sample may be below the detection limit of the test. Performed By: #### I NFLUAB #### [facility] [address] [place] [address] Dr. Ildefonso Finn INFLUENZA A AG Negative Normal NEGATIVE SEE COMMENT [facility] Comment on above: Performed By: #### I NFLUAB #### [facility] [address] [place] [address] Dr. Ildefonso Finn INFLUENZA B AG Negative Normal NEGATIVE SEE COMMENT [facility] Comment on above: Performed By: #### I NFLUAB #### [facility] [address] [place] [address] Dr. Ildefonso Finn OCC BLD IMMUNO SCREENon 06-17 OCCULT BLOOD Negative Normal NEGATIVE [facility] Comment on above: Performed By: #### O BSCRN #### [facility] [address] [place] [address] Dr. Ildefonso Finn CBC AUTO DIFFon 07-02-2022 BASO # 0.0 103/ul Normal 0.0-0.1 [facility] Comment on above: Performed By: #### C BC #### [facility] [address] [place] [address] Dr. Ildefonso Finn Basophils/100 WBC (Bld) 0.8 % Normal 0.2-2.0 [facility] Comment on above: Performed By: #### C BC #### [facility] [address] [place] [address] Dr. Ildefonso Finn EO # 0.1 103/ul Normal 0.0-0.7 [facility] Comment on above: Performed By: #### C BC #### [facility] [address] [place] [address] Dr. Ildefonso Finn Eosinophils/100 WBC (Bld) 1.1 % Normal 0.9-7.0 [facility] Comment on above: Performed By: #### C BC #### [facility] [address] [place] [address] Dr. Ildefonso Finn Erythrocyte distribution width (RBC) [Ratio] 13.4 % Normal 11.0-15.0 [facility] Comment on above: Performed By: #### C BC #### [facility] [address] [place] [address] Dr. Ildefonso Finn Hematocrit (Bld) [Volume fraction] 39.5 % Normal 36.0-48.0 [facility] Comment on above: Performed By: #### C BC #### [facility] [address] [place] [address] Dr. Ildefonso Finn Hemoglobin (Bld) [Mass/Vol] 12.9 g/dL Normal 12.0-16.0 [facility] Comment on above: Performed By: #### C BC #### [facility] [address] [place] [address] Dr. Ildefonso Finn IG # 0.01 10e3/ul Normal 0.00-0.03 [facility] Comment on above: Performed By: #### C BC #### [facility] [address] [place] [address] Dr. Ildefonso Finn IG % 0.2 % Normal 0.0-0.5 [facility] Comment on above: Performed By: #### C BC #### [facility] [address] [place] [address] Dr. Ildefonso Finn LYMPH # 1.1 103/ul Critically low 1.2-3.8 [facility] Comment on above: Performed By: #### C BC #### [facility] [address] [place] [address] Dr. Ildefonso Finn Lymphocytes/100 WBC (Bld) 20.3 % Critically low 20.5-60.0 [facility] Comment on above: Performed By: #### C BC #### [facility] [address] [place] [address] Dr. Ildefonso Finn MANUAL DIFF REQ NO Normal [facility] Comment on above: Performed By: #### C BC #### [facility] [address] [place] [address] Dr. Ildefonso Finn MCH (RBC) [Entitic mass] 29.3 pg Normal 26.7-34.0 [facility] Comment on above: Performed By: #### C BC #### [facility] [address] [place] [address] Dr. Ildefonso Finn MCHC (RBC) [Mass/Vol] 32.7 g/dL Normal 29.9-35.2 [facility] Comment on above: Performed By: #### C BC #### [facility] [address] [address] [address] Ildefonso Finn MCV (RBC) [Entitic vol] 89.8 fL Normal 81.0-99.0 [facility] Comment on above: Performed By: #### C BC #### [facility] [address] [address] [address] Ildefonso Finn MONO # 0.5 103/ul Normal 0.3-0.8 [facility] Comment on above: Performed By: #### C BC #### [facility] [address] [address] [address] Ildefonso Finn Monocytes/100 WBC (Bld) 10.0 % Normal 1.7-12.0 [facility] Comment on above: Performed By: #### C BC #### [facility] [address] [place] [address] Dr. Ildefonso Finn NEUT # 3.6 103/ul Normal 1.4-6.5 [facility] Comment on above: Performed By: #### C BC #### [facility] [address] [place] [address] Dr. Ildefonso Finn Neutrophils/100 WBC (Bld) 67.6 % Normal 43.0-75.0 [facility] Comment on above: Performed By: #### C BC #### [facility] [address] [address] [address] Ildefonso Finn Platelet mean volume (Bld) [Entitic vol] 9.0 fL Critically low 9.5-13.5 [facility] Comment on above: Performed By: #### C BC #### [facility] [address] [address] [address] Ildefonso Finn PLT 290 103/ul Normal 150-450 [facility] Comment on above: Performed By: #### C BC #### [facility] [address] [place] [address] Dr. Ildefonso Finn RBC 4.40 106/ul Normal 4.20-5.40 [facility] Comment on above: Performed By: #### C BC #### [facility] [address] [address] [address] Ildefonso Finn WBC 5.3 103/ul Normal 4.0-11.0 [facility] Comment on above: Performed By: #### C BC #### [facility] [address] [address] [address] Ildefonso Finn FREE THYROXINE INDEX T7on FTI 2.56 Normal 1.30-4.50 [facility] Comment on above: Performed By: #### C BC #### [facility] [address] [place] [address] Dr. Ildefonso Finn T3U 32.0 % Normal 30.0-39.0 [facility] Comment on above: Performed By: #### C BC #### [facility] [address] [place] [address] Dr. Ildefonso Finn T4 [Mass/Vol] 8.00 ug/dL Normal 4.80-13.90 [facility] Comment on above: Performed By: #### C BC #### [facility] [address] [place] [address] Dr. Ildefonso Finn GLYCOHEMOGLOBIN A1Con 2021 ADA RECOMMENDATION SEE BELOW Normal [facility] Comment on above: Result Comment: ADA RECOMMENDED LIMIT 4.0 - 6.0 ADA THERAPEUTIC TARGET < 7.0 ACTION SUGGESTED > 7.0 Performed By: #### A 1C #### [facility] [address] [place] [address] Dr. Ildefonso Finn Glucose [Mass/Vol] 114 mg/dL Normal [facility] Comment on above: Performed By: #### A 1C #### [facility] [address] [place] [address] Dr. Ildefonso Finn HbA1c (Bld) [Mass fraction] 5.6 % Normal 4.5-6.2 [facility] Comment on above: Performed By: #### A 1C #### [facility] [address] [place] [address] Dr. Ildefonso Finn IRONon 07-02-2022 Iron [Mass/Vol] 87.0 ug/dL Normal 50.0-170.0 [facility] Comment on above: Performed By: #### I PRISCILLA #### [facility] [address] [address] [address] Ildefonso Finn LIPID PROFILEon 07-02-2022 CHOL-HDL RATIO NORM SEE BELOW Normal [facility] Comment on above: Result Comment: 3.3 - 4.4 LOW RISK 4.4 - 7.1 AVERAGE RISK 7.1 - 11.0 MODERATE RISK >11.0 HIGH RISK Performed By: #### C BC #### [facility] [address] [address] [address] Ildefonso Finn Cholesterol [Mass/Vol] 173 mg/dL Normal <=200 [facility] Comment on above: Performed By: #### C BC #### [facility] [address] [place] [place] [address] Dr. Ildefonso Finn Cholesterol in HDL [Mass/Vol] 74 mg/dL Critically high 40-60 [facility] Comment on above: Performed By: #### C BC #### [facility] [address] [place] [address] Dr. Ildefonso Finn Cholesterol in LDL [Mass/Vol] 90.6 mg/dL Normal [facility] Comment on above: Performed By: #### C BC #### [facility] [address] [place] [address] Dr. Ildefonso Finn Cholesterol.total/Ch olesterol in HDL [Mass ratio] 2.3 {ratio} Normal [facility] Comment on above: Performed By: #### C BC #### [facility] [address] [place] [address] Dr. Ildefonso Finn HDL NORMAL > or = 60 mg/dl - LO W CARDIOVASCULAR RISK <40 mg/dl - HIGH CARDIOVASCULAR RISK Normal [facility] Comment on above: Performed By: #### C BC #### [facility] [address] [place], [place] [id number] Dr. Ildefonso Finn LDL CALC NORMAL SEE BELOW Normal [facility] Comment on above: Result Comment: <100 mg/dl OPTIMAL 100 - 129 mg/dl NEAR OR ABOVE OPTIMAL 130 - 159 mg/dl BORDERLINE HIGH 160 - 189 mg/dl HIGH >190 mg/dl VERY HIGH Performed By: #### C BC #### [facility] [address] [place] [address] Dr. Ildefonso Finn Triglyceride [Mass/Vol] 42 mg/dL Normal <=150 [facility] Comment on above: Performed By: #### C BC #### [facility] [address] [place] [address] Dr. Ildefonso Finn VLDL CALC 8.4 mg/dL Normal [facility] Comment on above: Performed By: #### C BC #### [facility] [address] [place] [address] Dr. Ildefonso Finn PROF 14(COMP METB)on 022 Albumin [Mass/Vol] 3.6 g/dL Normal 3.4-5.0 [facility] Comment on above: Performed By: #### C BC #### [facility] [address] [place] [address] Dr. Ildefonso Finn Albumin/Globulin [Mass ratio] 0.8 {ratio} Normal [facility] Comment on above: Performed By: #### C BC #### [facility] [address] [place] [address] Dr. Ildefonso Finn ALP [Catalytic activity/Vol] 74 U/L Normal 46-116 [facility] Comment on above: Performed By: #### C BC #### [facility] [address] [place] [address] Dr. Ildefonso Finn ALT [Catalytic activity/Vol] 15 U/L Normal 14-59 [facility] Comment on above: Performed By: #### C BC #### [facility] [address] [place] [address] Dr. Ildefonso Finn Anion gap [Moles/Vol] 7.8 mmol/L Normal [facility] Comment on above: Performed By: #### C BC #### [facility] [address] [place] [address] Dr. Ildefonso Finn AST [Catalytic activity/Vol] 21 U/L Normal 15-37 [facility] Comment on above: Performed By: #### C BC #### [facility] [address] [place] [address] Dr. Ildefonso Finn Bilirubin [Mass/Vol] 0.4 mg/dL Normal 0.2-1.0 [facility] Comment on above: Performed By: #### C BC #### [facility] [address] [place] [address] Dr. Ildefonso Finn Calcium [Mass/Vol] 9.0 mg/dL Normal 8.5-10.1 [facility] Comment on above: Performed By: #### C BC #### [facility] [address] [place] [address] Dr. Ildefonso Finn Chloride [Moles/Vol] 103 mmol/L Normal 98-107 [facility] Comment on above: Performed By: #### C BC #### [facility] [address] [place] [address] Dr. Ildefonso Finn CO2 [Moles/Vol] 30.5 mmol/L Normal 21.0-32.0 [facility] Comment on above: Performed By: #### C BC #### [facility] [address] [place] [address] Dr. Ildefonso Finn Creatinine [Mass/Vol] 0.70 mg/dL Normal 0.55-1.02 [facility] Comment on above: Performed By: #### C BC #### [facility] [address] [place] [address] Dr. Ildefonso Finn EGFR-AF MALAYSIAN >60 Normal >=60 [facility] Comment on above: Performed By: #### C BC #### [facility] [address] [place] [address] Dr. Ildefonso Finn EGFR-NON AF MALAYSIAN >60 Normal >=60 [facility] Comment on above: Performed By: #### C BC #### [facility] [address] [place] [address] Dr. Ildefonso Finn Globulin (S) [Mass/Vol] 4.5 g/dL Normal [facility] Comment on above: Performed By: #### C BC #### [facility] [address] [place] [address] Dr. Ildefonso Finn Glucose [Mass/Vol] 106 mg/dL Normal 74-106 [facility] Comment on above: Performed By: #### C BC #### [facility] [address] [place] [address] Dr. Ildefonso Finn Potassium [Moles/Vol] 4.3 mmol/L Normal 3.5-5.1 [facility] Comment on above: Performed By: #### C BC #### [facility] [address] [place] [address] Dr. Ildefonso Finn Protein [Mass/Vol] 8.1 g/dL Normal 6.4-8.2 [facility] Comment on above: Performed By: #### C BC #### [facility] [address] [place] [address] Dr. Ildefonso Finn Sodium [Moles/Vol] 137 mmol/L Normal 136-145 [facility] Comment on above: Performed By: #### C BC #### [facility] [address] [place] [address] Dr. Ildefonso Finn Urea nitrogen [Mass/Vol] 15.0 mg/dL Normal 7.0-18.0 [facility] Comment on above: Performed By: #### C BC #### [facility] [address] [place] [address] Dr. Ildefonso Finn Urea nitrogen/Creatinine [Mass ratio] 21.4 mg/mg Normal [facility] Comment on above: Performed By: #### C BC #### [facility] [address] [place] [address] Dr. Ildefonso Finn TSHon 07-02-2022 TSH 2.511 uIU/mL Normal 0.358-3.740 [facility] Comment on above: Performed By: #### C BC #### [facility] [address] [place] [address] Dr. Ildefonso Finn CULTURE SPUTUMon 04-16-2022 CULTURE SPUTUM Culture Observations : H. parainfluenzae; beta lactamase negative Isolate 1 Haemophilus parainfluenzae Normal [facility] Comment on above: Performed By: #### S PUTCX #### [facility] [address] [address] [address] Ildefonso Finn SPUTUM GRAM STAINon 04-16-20 COMMENTS Normal [facility] Comment on above: Performed By: #### S PUTGS #### [facility] [address] [place] [address] Dr. Ildefonso Finn DIPHTHEROIDS Normal [facility] Comment on above: Performed By: #### S PUTGS #### [facility] [address] [place] [address] Dr. Ildefonso Finn EPITHELIALS <25 Normal [facility] Comment on above: Performed By: #### S PUTGS #### [facility] [address] [place] [address] Dr. Ildefonso Finn FUNGAL ELEMENTS Normal [facility] Comment on above: Performed By: #### S PUTGS #### [facility] [address] [place] [address] Dr. Ildefonso Finn GRAM NEG BACILLI [facility] Comment on above: Performed By: #### S PUTGS #### [facility] [address] [place] [address] Dr. Ildefonso Finn GRAM NEG DIPPLOCOCCI MODERATE Normal [facility] Comment on above: Performed By: #### S PUTGS #### [facility] [address] [place] [address] Dr. Ildefonso Finn GRAM POS BACILLI [facility] Comment on above: Performed By: #### S PUTGS #### [facility] [address] [place] [address] Dr. Ildefonso Finn GRAM POSITIVE COCCI FEW Normal [facility] Comment on above: Performed By: #### S PUTGS #### [facility] [address] [place] [address] Dr. Ildefonso Finn WBC (Bld) [#/Vol] 10*3/uL Normal [facility] Comment on above: Performed By: #### S PUTGS #### [facility] [address] [place] [address] Dr. Ildefonso Finn Covid-19 PCR (CVDTB)on SARS-CoV-2 (COVID-19) RNA KARLA+probe Ql (Unsp spec) Detected Critically abnormal NOT DETECTED [facility] Comment on above: Result Comment: This test is not yet approved or cleared by the [place] FDA. When there are no FDA-approved or cleared tests available, and other criteria are met, FDA can make tests available under an emergency access mechanism called an Emergency Use Authorization (EUA). The EUA for this test is supported by the Medical Doctor Md of Health and Human Service's (HHS's) declaration [...] longer be used). Performed By: #### C [facility] #### [facility] [address] [address] [address] Ildefonso Finn Screening Mammogram, [facility] 12-29-2021 Screening Mammogram, Bilateral CLINICAL HISTORY: Screening [...] VERY IMPORTANT TO YOUR HEALTH. THE CURRENT [place] [employer] OF [employer]IOLOGY AND NATIONAL COMPREHENSIVE CANCER NETWORK GUIDELINES RECOMMENDS ANNUAL MAMMOGRAPHY BEGINNING AT AGE 38 THIS FACILITY USES A REMINDER SYSTEM TO ENSURE ALL PATIENTS RECEIVE REMINDER NOTIFICATIONS AT THE APPROPRIATE TIME BASED ON THE RECOMMENDATIONS OF THIS EXAM. 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 Accredited by the ACR and FDA. Report reported and signed by ESTEFANIA RUBIN on 12/31/2021 1312 Normal [facility] [employer] Vital Signs Date Time Vital Sign Value Performing Clinician Facility 05-27-2024 15:14-0500 Diastolic blood pressure 94 mm[Hg] Lauro Simon [facility] [place] 05-27-2024 15:14-0500 Heart rate 91 /min Lauro Simon [facility] [place] 05-27-2024 15:14-0500 Systolic blood pressure 159 mm[Hg] Lauro Simon [facility] [place] 04-30-2024 15:41-0400 Body temperature 98.06 [degF] Mhd Al-Marrawi [facility] 04-30-2024 15:41-0400 Diastolic blood pressure 85 mm[Hg] Mhd Al-Marrawi [facility] 04-30-2024 15:41-0400 Heart rate 88 /min Mhd Al-Marrawi [facility] 04-30-2024 15:41-0400 Mean blood pressure 99 mm[Hg] Mhd Al-Marrawi [facility] 04-30-2024 15:41-0400 Respiratory rate 18 /min Mhd Al-Marrawi [facility] 04-30-2024 15:41-0400 SaO2% (BldA) [Mass fraction] 97 % Mhd Al-Marrawi [facility] 04-30-2024 15:41-0400 Systolic blood pressure 127 mm[Hg] Mhd Al-Marrawi [facility] 04-19-2024 09:56-0400 Heart rate 85 /min Mhd Al-Marrawi [facility] 04-19-2024 09:56-0400 SaO2% (BldA) [Mass fraction] 97 % Mhd Al-Marrawi [facility] 04-19-2024 09:56-0400 Respiratory rate 20 /min Mhd Al-Marrawi [facility] 04-19-2024 09:56-0400 Body temperature 97.7 [degF] Mhd Al-Marrawi [facility] 04-19-2024 09:55-0400 Blood Pressure Location Mhd Al-Marrawi [facility] 04-19-2024 09:55-0400 Diastolic blood pressure 75 mm[Hg] Mhd Al-Marrawi [facility] 04-19-2024 09:55-0400 Mean blood pressure 88 mm[Hg] Mhd Al-Marrawi [facility] 04-19-2024 09:55-0400 Systolic blood pressure 113 mm[Hg] Mhd Al-Marrawi [facility] 04-19-2024 08:29-0400 Blood Pressure Location Mhd Al-Marrawi [facility] 04-19-2024 08:29-0400 Diastolic blood pressure 73 mm[Hg] Mhd Al-Marrawi [facility] 04-19-2024 08:29-0400 Heart rate 76 /min Mhd Al-Marrawi [facility] 04-19-2024 08:29-0400 Mean blood pressure 87 mm[Hg] Mhd Al-Marrawi [facility] 04-19-2024 08:29-0400 Systolic blood pressure 116 mm[Hg] Mhd Al-Marrawi [facility] 04-19-2024 08:29-0400 Heart rate 78 /min Mhd Al-Marrawi [facility] 04-19-2024 08:29-0400 SaO2% (BldA) [Mass fraction] 99 % Mhd Al-Marrawi [facility] 04-19-2024 08:29-0400 Body temperature 97.7 [degF] Mhd Al-Marrawi [facility] 04-19-2024 08:28-0400 Respiratory rate 20 /min Mhd Al-Marrawi [facility] 04-19-2024 08:25-0400 Blood Pressure Location Mhd Al-Marrawi [facility] 04-19-2024 08:25-0400 Diastolic blood pressure 76 mm[Hg] d Al-Marrawi [facility] 04-19-2024 08:25-0400 Mean blood pressure 95 mm[Hg] Mhd Al-Marrawi [facility] 04-19-2024 08:25-0400 Systolic blood pressure 131 mm[Hg] d Al-Marrawi [facility] 04-18-2024 13:30-0400 Body height 165.1 cm Fernanda Rinkes DO Work Phone: [facility] 04-18-2024 13:30-0400 Body mass index (BMI) [Ratio] 19.47 kg/m2 Fernanda Rinkes DO Work Phone: [facility] 04-18-2024 13:30-0400 Body weight 53.07 kg Fernanda Rinkes DO Work Phone: [facility] 04-18-2024 13:30-0400 Diastolic blood pressure 70 mm[Hg] Fernanda Rinkes DO Work Phone: [facility] 04-18-2024 13:30-0400 Systolic blood pressure 120 mm[Hg] Fernanda Rinkes DO Work Phone: [facility] 04-09-2024 11:43-0400 Body temperature 97.52 [degF] Mhd Al-Marrawi [facility] 04-09-2024 11:43-0400 Diastolic blood pressure 77 mm[Hg] Mhd Al-Marrawi [facility] 04-09-2024 11:43-0400 Heart rate 93 /min Mhd Al-Marrawi [facility] 04-09-2024 11:43-0400 Mean blood pressure 94 mm[Hg] Mhd Al-Marrawi [facility] 04-09-2024 11:43-0400 Respiratory rate 16 /min Mhd Al-Marrawi [facility] 04-09-2024 11:43-0400 SaO2% (BldA) [Mass fraction] 97 % Mhd Al-Marrawi [facility] 04-09-2024 11:43-0400 Systolic blood pressure 127 mm[Hg] Mhd Al-Marrawi [facility] 03-11-2024 15:19-0400 Body temperature 99.14 [degF] Mhd Al-Marrawi [facility] 03-11-2024 15:19-0400 Diastolic blood pressure 83 mm[Hg] Mhd Al-Marrawi [facility] 03-11-2024 15:19-0400 Heart rate 96 /min Mhd Al-Marrawi [facility] 03-11-2024 15:19-0400 Mean blood pressure 97 mm[Hg] Mhd Al-Marrawi [facility] 03-11-2024 15:19-0400 Respiratory rate 20 /min Mhd Al-Marrawi [facility] 03-11-2024 15:19-0400 SaO2% (BldA) [Mass fraction] 94 % Mhd Al-Marrawi [facility] 03-11-2024 15:19-0400 Systolic blood pressure 124 mm[Hg] Mhd Sylvain [facility] 02-26-2024 14:36-0400 Diastolic blood pressure 96 mm[Hg] Lauro Simon [facility] [place] 02-26-2024 14:36-0400 Heart rate 90 /min Lauro Aurora [facility] 02-26-2024 14:36-0400 Systolic blood pressure 145 mm[Hg] Lauro Simon [facility] 02-20-2024 12:42-0400 Body height 165.1 cm Chris Baum MD Work Phone: [facility] 02-20-2024 12:42-0400 Body mass index (BMI) [Ratio] 21.63 kg/m2 Chris Baum MD Work Phone: [facility] 02-20-2024 12:42-0400 Body weight 58.97 kg Chris Baum MD Work Phone: [facility] 02-20-2024 12:42-0400 Diastolic blood pressure 81 mm[Hg] Chris aBum MD Work Phone: [facility] 02-20-2024 12:42-0400 Heart rate 83 /min Chris Baum MD Work Phone: [facility] 02-20-2024 12:42-0400 Systolic blood pressure 133 mm[Hg] Chris Baum MD Work Phone: [facility] 12-04-2023 14:31-0400 Body temperature 98.42 [degF] Muna Amaro [facility] 12-04-2023 14:31-0400 Diastolic blood pressure 72 mm[Hg] Muna Amaro [facility] 12-04-2023 14:31-0400 Heart rate 97 /min Muna Amaro [facility] 12-04-2023 14:31-0400 Mean blood pressure 86 mm[Hg] Muna Amaro [facility] 12-04-2023 14:31-0400 Respiratory rate 16 /min Muna Amaro [facility] 12-04-2023 14:31-0400 SaO2% (BldA) [Mass fraction] 95 % Muna Amaro [facility] 12-04-2023 14:31-0400 Systolic blood pressure 113 mm[Hg] Muna Amaro [facility] 11-06-2023 15:13-0400 Blood Pressure Location Lauro Aurora [facility] [place] 11-06-2023 15:13-0400 Diastolic blood pressure 90 mm[Hg] Lauro Aurora [facility] 11-06-2023 15:13-0400 Heart rate 85 /min Lauro Ugarteshae [facility] 11-06-2023 15:13-0400 Systolic blood pressure 137 mm[Hg] Lauro Simon [facility] [place] 09-04-2023 14:44-0500 Body temperature 97.34 [degF] Mhd Al-Marrawi [facility] 09-04-2023 14:44-0500 Diastolic blood pressure 64 mm[Hg] Mhd Al-Marrawi [facility] 09-04-2023 14:44-0500 Heart rate 91 /min Mhd Al-Marrawi [facility] 09-04-2023 14:44-0500 Mean blood pressure 86 mm[Hg] Mhd Al-Marrawi [facility] 09-04-2023 14:44-0500 Respiratory rate 18 /min Mhd Al-Marrawi [facility] 09-04-2023 14:44-0500 SaO2% (BldA) [Mass fraction] 99 % Mhd Al-Marrawi [facility] 09-04-2023 14:44-0500 Systolic blood pressure 130 mm[Hg] Mhd Al-Marrawi [facility] 08-07-2023 15:51-0500 Diastolic blood pressure 78 mm[Hg] Lauro Simon [facility] [place] 08-07-2023 15:51-0500 Heart rate 80 /min Lauro Aurora [facility] 08-07-2023 15:51-0500 Systolic blood pressure 128 mm[Hg] Lauro Moratayay [facility] 05-22-2023 14:00-0500 Blood Pressure Location Mhd Al-Marrawi [facility] 05-22-2023 14:00-0500 Body temperature 97.88 [degF] Mhd Al-Marrawi [facility] 05-22-2023 14:00-0500 Diastolic blood pressure 77 mm[Hg] Mhd Al-Marrawi [facility] 05-22-2023 14:00-0500 Heart rate 86 /min Mhd Al-Marrawi [facility] 05-22-2023 14:00-0500 Mean blood pressure 94 mm[Hg] Mhd Al-Marrawi [facility] 05-22-2023 14:00-0500 Respiratory rate 16 /min Mhd Al-Marrawi [facility] 05-22-2023 14:00-0500 SaO2% (BldA) [Mass fraction] 98 % Mhd Al-Marrawi [facility] 05-22-2023 14:00-0500 Systolic blood pressure 129 mm[Hg] Mhd Al-Marrawi [facility] 05-01-2023 09:00-0400 Blood Pressure Location Mhd Al-Marrawi [facility] 05-01-2023 09:00-0400 Body temperature 97.7 [degF] Mhd Al-Marrawi [facility] 05-01-2023 09:00-0400 Diastolic blood pressure 71 mm[Hg] Mhd Al-Marrawi [facility] 05-01-2023 09:00-0400 Heart rate 86 /min Mhd Al-Marrawi [facility] 05-01-2023 09:00-0400 Mean blood pressure 87 mm[Hg] Mhd Al-Marrawi [facility] 05-01-2023 09:00-0400 Respiratory rate 18 /min Mhd Al-Marrawi [facility] 05-01-2023 09:00-0400 SaO2% (BldA) [Mass fraction] 95 % Mhd Al-Marrawi [facility] 05-01-2023 09:00-0400 Systolic blood pressure 120 mm[Hg] Mhd Al-Marrawi [facility] 03-01-2023 10:51-0400 Blood Pressure Location Mehdi Jackson [facility] 03-01-2023 10:51-0400 Diastolic blood pressure 78 mm[Hg] Mehdi Jackson [facility] 03-01-2023 10:51-0400 Heart rate 77 /min Mehdi Jackson [facility] 03-01-2023 10:51-0400 SaO2% (BldA) [Mass fraction] 97 % Mehdi Jackson [facility] 03-01-2023 10:51-0400 Systolic blood pressure 136 mm[Hg] Mehdi Jackson [facility] 02-22-2023 12:31-0400 Blood Pressure Location Lauro Moratayay [facility] 02-22-2023 12:31-0400 Diastolic blood pressure 84 mm[Hg] Lauro Mourany [facility] 02-22-2023 12:31-0400 Systolic blood pressure 127 mm[Hg] Lauro Mourany [facility] 02-22-2023 12:30-0400 Blood Pressure Location Lauro Mourany [facility] 02-22-2023 12:30-0400 Body temperature 98.06 [degF] Lauro Mourany [facility] 02-22-2023 12:30-0400 Diastolic blood pressure 79 mm[Hg] Lauro Mourany [facility] 02-22-2023 12:30-0400 Heart rate 87 /min Lauro Mourany [facility] 02-22-2023 12:30-0400 Respiratory rate 16 /min Lauro Mourany [facility] 02-22-2023 12:30-0400 SaO2% (BldA) [Mass fraction] 96 % Lauro Simon [facility] 02-22-2023 12:30-0400 Systolic blood pressure 136 mm[Hg] Lauro Simon [facility] Encounters Encounter Date Encounter Type Care Provider Facility Start: 12-10-2024 ambulatory Lauro Simon Facilit y:[facility] [place] Start: 06-04-2024 End: 06-04-2024 Telephone encounter No One (Historical) Referring Physician Comment on above: External Referrals/r esources Insurance Inquiry Start: 05-30-2024 End: 05-30-2024 ambulatory [facility] Start: 05-27-2024 End: 05-27-2024 ambulatory Lauro Simon Facility: [place] Start: 05-27-2024 End: 05-27-2024 Patient encounter procedure Lauro Simon [facility] [place] Start: 05-03-2024 End: 05-03-2024 ambulatory [facility] Start: 05-02-2024 End: 05-02-2024 ambulatory [facility] Start: 05-01-2024 End: 05-01-2024 ambulatory [facility] Start: 04-30-2024 End: 04-30-2024 ambulatory Mhd Yaser Al-Marrawi Facility:[facility] Start: 04-30-2024 End: 04-30-2024 Patient encounter procedure Mhd Yaser Al-Marrawi [facility] Start: 04-26-2024 End: 04-26-2024 ambulatory [facility] Start: 04-19-2024 End: 04-19-2024 ambulatory Mhd Yaser Al-Marrawi Facility:[facility] Start: 04-19-2024 End: 04-19-2024 Patient encounter procedure Mhd Yaser Al-Marrawi [facility] Start: 04-18-2024 End: 04-18-2024 Bamboo flowsheet Fernanda Pritchard Rinkes DO Work Phone: [facility] Start: 04-18-2024 End: 04-18-2024 Bamboo flowsheet Fernanda E Rinkes DO Work Phone: [facility] Start: 04-18-2024 End: 04-18-2024 Patient encounter status Fernanda Pritchard Ieshakes DO Work Phone: [facility] Start: 04-18-2024 End: 04-18-2024 Periodic preventive med est patient 65yrs& older Fernanda Francheska Juliankes DO Work Phone: [facility] Comment on above: Encounter for gyneco logical examination without abnormal finding; Screening for malignant neoplasm of cervix; Encounter for screening mammogram for breast cancer Start: 04-18-2024 End: 04-18-2024 ambulatory FERNANDA MCOGVERN Not Available Start: 04-17-2024 ambulatory Mhd Yaser Al-Marrawi Fa cility:[facility] Start: 04-11-2024 End: 04-11-2024 ambulatory Mhd Yaser Al-Marrawi Facility:[facility] Start: 04-11-2024 End: 04-11-2024 Lab Drop off Mhd Yaser Al-Marrawi [facility] Start: 04-09-2024 End: 04-09-2024 ambulatory Mhd Yaser [facility]raw[facility] [facility] Start: 04-09-2024 End: 04-09-2024 Patient encounter procedure Mhd Yaser Al-Marrawi [facility] Start: 04-09-2024 End: 04-09-2024 ambulatory Mhd Yaser Al-Marrawi Facility:[facility] Start: 04-09-2024 End: 04-09-2024 Patient encounter procedure Mhd Sushil Narayan [facility] Start: 03-28-2024 Evaluation and management of inpatient KATIANASOOK [facility] Start: 03-27-2024 [facility] Start: 03-27-2024 Evaluation and management of inpatient YOUNGSOOK [facility] Start: 03-27-2024 End: 04-01-2024 Evaluation and management of inpatient GABY BAER [facility] Start: 03-27-2024 End: 03-27-2024 ambulatory UNKNOWN PROVIDER Facility:[facility] Start: 03-25-2024 Evaluation and management of inpatient DEA [facility] Start: 03-25-2024 Evaluation and management of inpatient LAURA [facility] Start: 03-25-2024 Evaluation and management of inpatient JO ANN ANIBAL [facility] Start: 03-25-2024 Evaluation and management of inpatient LAURA [facility] Start: 03-24-2024 Evaluation and management of inpatient LAURA [facility] Start: 03-23-2024 Evaluation and management of inpatient MIRRA JOSE [facility] Start: 03-22-2024 Evaluation and management of inpatient DEA [facility] Start: 03-22-2024 [facility] Start: 03-22-2024 Evaluation and management of inpatient RAGHEB [facility] Start: 03-21-2024 Evaluation and management of inpatient RAGHEB [facility] Start: 03-20-2024 Evaluation and management of inpatient RAGHEB [facility] Start: 03-18-2024 Evaluation and management of inpatient RAGHEB [facility] Start: 03-17-2024 [facility] Start: 03-16-2024 Evaluation and management of [facility] Start: 03-15-2024 Evaluation and management of inpatient RAGHEB [facility] Start: 03-15-2024 Evaluation and management of inpatient RAGHEB [facility] Start: 03-14-2024 End: 03-26-2024 Evaluation and management of inpatient OTIS MAGDI [facility] Start: 03-11-2024 End: 03-11-2024 ambulatory Mhd Kristineser Rajeev-Sharirasendy Facility:[facility] Start: 03-11-2024 End: 03-11-2024 Patient encounter procedure Mhd Sushil Narayan [facility] Start: 03-01-2024 End: 03-01-2024 ambulatory FERNANDA MCGOVERN Not Available Start: 02-26-2024 End: 02-26-2024 ambulatory Muna Amaro Facility:[facility] Start: 02-26-2024 End: 02-26-2024 Patient encounter procedure Lauro Simon [facility] [place] Start: 02-20-2024 End: 02-20-2024 ambulatory CHRIS BAUM Facility:[facility] Start: 02-20-2024 End: 02-20-2024 Patient encounter procedure Chris aBum MD Work Phone: [facility] Comment on above: Multiple sclerosis ( HCC) (Primary Dx) Start: 12-04-2023 End: 12-04-2023 ambulatory Muna Amaro Facility:[facility] Start: 12-04-2023 End: 12-04-2023 Patient encounter procedure Muna Amaro [facility] Start: 11-20-2023 End: 11-20-2023 ambulatory Mhd Yaser Al-Marrawi Facility:[facility] Start: 11-20-2023 End: 11-20-2023 Patient encounter procedure Mhd Yaser Al-Marrawi [facility] Start: 11-07-2023 End: 11-07-2023 ambulatory AMRIKLandry KATHRYN [facility] Start: 11-06-2023 End: 11-06-2023 ambulatory Lauro Simon Facility:[facility] Start: 11-06-2023 End: 11-06-2023 Patient encounter procedure Lauro Simon [facility] Start: 09-15-2023 ambulatory Muna Amaro Facility: [facility] Start: 09-04-2023 End: 09-04-2023 ambulatory Mhd Yaser Al-Marrawi Facility:[facility] Start: 09-04-2023 End: 09-04-2023 Patient encounter procedure Mhd Yaser Al-Marrawi [facility] Start: 09-01-2023 End: 09-01-2023 ambulatory Mhd Yaser Al-Marrawi Facility:[facility] Start: 09-01-2023 End: 09-01-2023 Patient encounter procedure Mhd Yaser Al-Marrawi [facility] Start: 08-07-2023 End: 08-07-2023 ambulatory Lauro Simon Facility:[facility] Start: 08-07-2023 End: 08-07-2023 Patient encounter procedure Lauro Simon [facility] Start: 07-28-2023 End: 07-28-2023 ambulatory QUINN KENT [facility] Start: 07-27-2023 End: 08-01-2023 ambulatory ALANA LOZADARAHEEMTORREYDAISY [facility] Start: 07-27-2023 End: 07-27-2023 ambulatory RAGHEB [facility] Start: 07-26-2023 End: 07-26-2023 ambulatory RAGHEB [facility] Start: 07-25-2023 End: 07-25-2023 ambulatory RAGHEB [facility] Start: 07-24-2023 End: 07-24-2023 ambulatory RAGHEB [facility] Start: 07-21-2023 End: 07-21-2023 ambulatory RAGHEB [facility] Start: 07-20-2023 End: 07-20-2023 ambulatory RAGB [facility] Start: 07-19-2023 End: 07-19-2023 ambulatory [facility] Start: 07-18-2023 End: 07-18-2023 ambulatory RAGHEB [facility] Start: 07-14-2023 End: 07-14-2023 ambulatory RAGHEB [facility] Start: 07-13-2023 End: 07-13-2023 ambulatory RAGHEB [facility] Start: 07-13-2023 End: 07-13-2023 ambulatory [facility] Start: 07-12-2023 End: 07-12-2023 ambulatory RAGHEB [facility] Start: 07-07-2023 End: 07-07-2023 ambulatory RAGHEB [facility] Start: 07-06-2023 End: 07-06-2023 ambulatory RAGHEB [facility] Start: 07-05-2023 End: 07-05-2023 ambulatory RAGHEB [facility] Start: 07-04-2023 End: 07-04-2023 ambulatory RAGHEB [facility] Start: 07-03-2023 End: 07-03-2023 ambulatory RAGHEB [facility] Start: 06-30-2023 End: 06-30-2023 ambulatory RAGHEB [facility] Start: 06-29-2023 End: 06-29-2023 ambulatory RAGB [facility] Start: 06-28-2023 End: 06-28-2023 ambulatory RAGHEB [facility] Start: 06-27-2023 End: 06-27-2023 ambulatory [facility] Start: 06-26-2023 End: 06-26-2023 ambulatory RAGHEB [facility] Start: 06-23-2023 End: 06-23-2023 ambulatory RAGHEB [facility] Start: 06-22-2023 End: 06-22-2023 ambulatory [facility] Start: 06-21-2023 End: 06-21-2023 ambulatory RAGHEB [facility] Start: 06-20-2023 End: 06-20-2023 ambulatory RAGHEB [facility] Start: 06-19-2023 End: 06-19-2023 ambulatory RAGHEB [facility] Start: 06-16-2023 End: 06-16-2023 ambulatory RAGB [facility] Start: 06-15-2023 End: 06-15-2023 ambulatory RAGHEB [facility] Start: 06-14-2023 End: 06-14-2023 ambulatory RAGHEB [facility] Start: 06-13-2023 End: 06-13-2023 ambulatory RAGHEB [facility] Start: 05-30-2023 End: 05-30-2023 ambulatory Neftali Narayan Facility:[facility] Start: 05-30-2023 End: 05-30-2023 Patient encounter procedure Neftali Narayan [facility] Start: 05-22-2023 End: 05-22-2023 Patient encounter procedure Mhd Sushil Al-Yesenia [facility] Start: 05-22-2023 End: 05-22-2023 Patient encounter procedure Mhd Sushil Al-Yesenia [facility] Start: 05-01-2023 End: 05-01-2023 Patient encounter procedure Lauro Simon [facility] [place] Start: 05-01-2023 End: 05-01-2023 Patient encounter procedure Mhd Sushil Boo-Yesenia [facility] Start: 03-01-2023 End: 03-01-2023 Patient encounter procedure Bashar X [place] [facility] Start: 03-01-2023 End: 03-01-2023 Preprocedural examination done Bashar X [place] [facility] Start: 02-22-2023 End: 02-22-2023 Patient encounter procedure Lauro Simon [facility] Start: 02-20-2023 End: 03-23-2023 Pre-admission assessment Lauro Simon [facility] Start: 12-10-2022 End: 12-11-[address] BRIANNA YANEZ . Facility:[facility] Start: 09-15-2022 End: 09-15-[address] BRIANNA YANEZ . Facility:[facility] Start: 07-12-2022 End: 12-27-[address] BRIANNA YANEZ . Facility:[facility] Start: 07-06-2022 Encounter for genera l adult medical examination without abnormal findings DR BRIANNA YANEZ . [facility] Start: 07-02-2022 End: 07-03-2022 ambulatory [...] Date Procedure Procedure Detail Performing Clinician Start: 04-26-2024 Follow-up visit QUINN KENT Start: 04-19-2024 Biopsy of bone Mhd Al-M nevaeh Start: 03-01-2024 Mammography Fernanda carlin DO Work Phone: Start: 04-11-2023 Biopsy of lymph node June Simon Start: 01-11-2023 Microscopic observat ion [Identifier] in Cervix by Cyto stain Fernanda Mcgovern DO Work Phone: Start: 06-16-2021 Bronchoscopy Lauro Ro ny Biopsy of breast Lauro stevenson section Lauro stevenson Plan of Treatment Date Care Activity Detail Author Start: 01-12-2028 Screening for malign ant neoplasm of cervix [facility] Start: 11-28-2027 Urine microalbumin profile DTaP,Tdap,Td Vaccine (2 - Td or Tdap) [facility] Start: 04-01-2027 Diabetes Screening Diabetes Screenin g [facility] Start: 01-11-2026 Screening for malign ant neoplasm of cervix Pap Smear [facility] Start: 04-30-2025 End: 04-30-2025 Patient encounter procedure 04/30/2025 3:00 PM EDT Office Visit [facility] [address] [place] [id number] IeshaBritany squireshlabbi Pritchard, DO [address] [place] [address] [facility] Start: 03-01-2025 Screening for malign ant neoplasm of breast [facility] Start: 04-18-2024 End: 04-18-2024 Patient encounter procedure 04/18/2024 1:15 PM EDT Office Visit [facility] [address] [place] [id number] Ieshatavia Fernanda E, DO [address] [place] [address] Encounter for gynecological examination without abnormal finding; Screening for malignant neoplasm of cervix; Encounter for screening mammogram for breast cancer [facility] Comment on above: Encounter for gyneco logical examination without abnormal finding; Screening for malignant neoplasm of cervix; Encounter for screening mammogram for breast cancer Start: 03-17-2024 Covid-19 Vaccine ( season) Covid-19 Vaccine () [facility] Start: 03-17-2024 Influenza vaccination Influenza Vacc ine (#1) [facility] Start: 01-06-2024 Screening for malign ant neoplasm of breast Mammogram Screening [facility] Start: 11-11-2023 Advance Directive Discussion Advance Directive Discussion [facility] Start: 11-11-2023 Screening for osteoporosis Bone Density Screening [facility] Start: 03-17-2023 Covid-19 Vaccine ( season) Covid-19 Vaccine () [facility] Start: 07-05-2022 Diabetes Screening Diabetes Screenin g [facility] Start: 2008 Shingrix Vaccine (1 of 2) Shingrix Vaccine (1 of 2) [facility] Start: 11-11-2003 Lipid panel Lipid Screening [facility] Start: 11-11-2003 Screening for malign ant neoplasm of colon [facility] Start: 1976 Anxiety Screening Anxiety Screening [facility] Start: 1976 Depression Screening Depression Scre sherlyn [facility] Start: 1976 Hepatitis C screening Hepatitis C Sc serena [facility] Start: 1976 HIV screening HIV Screening [facility] Start: 1960 Screening for malign ant neoplasm of colon [facility] SENDOUT TEST MISCELLANEOUS [facility] SENDOUT TEST MISCELLANEOUS [facility] Lab Routine Screening for malignant neoplasm of cervix Ordered: 04/18/2024 [facility] Work Phone: Comment on above: Ordered: 04/18/2024 Immunizations Immunization Date Immunization Notes Care Provider Vianca mcfarlane 06-27-2023 influenza virus vaccine, unspecified formulation Chris Baum MD Work Phone: [facility] 04-15-2022 influenza virus vaccine, unspecified formulation Lauro Simon [facility] 05-02-2021 influenza virus vaccine, unspecified formulation Lauro Simon [facility] 10-31-2020 SARS-CoV-2 (COVID-19 ) mRNA BNT-162b2 vax Lauro Simon [facility] Comment on above: Result Comment: 2022: [id number] 10-10-2020 SARS-CoV-2 (COVID-19 ) mRNA BNT-162b2 vax Lauro Simon [facility] Comment on above: Result Comment: 2022: [id number] 05-02-2019 influenza virus vaccine, unspecified formulation Lauro Simon [facility] 05-02-2019 influenza, injectabl e, quadrivalent, preservative free Chris Baum MD Work Phone: [facility] 05-04-2018 influenza virus vaccine, unspecified formulation Lauro Simon [facility] 05-04-2018 influenza, injectabl e, quadrivalent, preservative free Chris Baum MD Work Phone: [facility] 11-27-2017 tetanus toxoid, redu alona diphtheria toxoid, and acellular pertussis vaccine, adsorbed Lauro Aurora [facility] 05-02-2017 influenza virus vaccine, unspecified formulation Lauro Simon [facility] 05-09-2016 influenza, unspecifi ed formulation Lauro Simon [facility] 05-07-2015 influenza virus vaccine, unspecified formulation Lauro Simon [facility] 05-07-2015 influenza, high dose seasonal, preservative-free Chris Baum MD Work Phone: [facility] 07-14-2014 influenza virus vaccine, unspecified formulation Lauro Simon [facility] 07-14-2014 influenza, injectable,quadrivalent , preservative free, pediatric Chris Baum MD Work Phone: [facility] 07-14-2014 pneumococcal conjuga te vaccine, 13 valent Lauro Simon [facility] 04-12-2013 influenza virus vaccine, unspecified formulation Chris Baum MD Work Phone: [facility] Work Phone: 06-15-2012 influenza virus vaccine, unspecified formulation Chris Baum MD Work Phone: [facility] 12-01-2011 pneumococcal polysaccharide vaccine, 23 valent Chris Baum MD Work Phone: [facility] 10-12-2010 influenza virus vaccine, unspecified formulation Chris Baum MD Work Phone: [facility] NEGATED: Highlighted row has not occurred!04-21-2023 influenza virus vaccine, unspecified formulation Lauro Simon [facility] [place] Payers Date Payer Category Payer Medicare [id number] 2023 Medicare [id number] 2023 Unknown [id number] 2022 Unknown [id number] 1960 Unknown [id number] 2.16.84 0.1.918243.3.579.2.593 1960 Unknown [id number] 2.16.84 0.1.909030.3.579.2.593 1958 Unknown [id number] 2.16.84 0.1.376884.3.579.2.593 1958 Unknown [id number] 2.16.84 0.1.861429.3.579.2.593 1958 Unknown [id number] 2.16.84 0.1.087838.3.579.2.593 1958 Unknown [id number] 2.16.84 0.1.615256.3.579.2.593 1958 Unknown [id number] 2.16.84 0.1.307315.3.579.2.593 1958 Unknown [id number] 2.16.84 0.1.911521.3.579.2.593 1958 Unknown [id number] 2.16. 840.1.240304.3.579.2.732 1958 Unknown [id number] 2.16.8 40.1.906593.3.579.2.727 1958 Unknown [id number] 2.16.8 40.1.179926.3.579.2.727 1958 Unknown [id number] 2.16.84 0.1.447694.3.579.2.1259 1958 Unknown [id number] 2.16.84 0.1.390899.3.579.2.1259 1958 Unknown [id number] 2.16.8 40.1.458810.3.579.2.72 1958 Unknown [id number] 2.16.8 40.1.150597.3.579.2. 1958 Unknown [id number] 2.16.8 40.1.660585.3.579.2. 1958 Unknown [id number] 2.16.8 40.1.349262.3.579.2. 1958 Unknown [id number] 2.16.8 40.1.893101.3.579.2. 1958 Unknown [id number] 2.16.8 40.1.094624.3.579.2. 1958 Unknown [id number] 2.16.8 40.1.190541.3.579.2. 1958 Unknown [id number] 2.16.8 40.1.762603.3.579.2. 1958 Unknown [id number] 2.16.8 40.1.543368.3.579.2.72 1958 Unknown [id number] 2.16.8 40.1.065305.3.579.2. 1958 Unknown [id number] 2.16.8 40.1.730182.3.579.2. 1958 Unknown [id number] 2.16.8 40.1.642799.3.579.2. 1958 Unknown [id number] 2.16.8 40.1.290608.3.579.2.72 1958 Unknown [id number] 2.16.8 40.1.248364.3.579.2.729 Unknown [id number] 2.16.8 40.1.997937.3.579.2.727 1958 Unknown [id number] 2.16.8 40.1.057672.3.579.2.727 1958 Unknown [id number] 2.16.8 40.1.697808.3.579.2.727 1958 Unknown [id number] 2.16.8 40.1.504486.3.579.2.727 1960 Unknown [id number] 2.16.8 40.1.754227.3.579.2.727 Unknown [id number] Social History Date Type Detail Facility Start: 10-22-2014 End: 01-30-2023 Tobacco smoking status Never smoked tobacco (finding) [facility] Tobacco smoking status Never [facility] Start: 02-19-2024 End: 02-20-2024 Sex Assigned At Female [facility] Start: 10-22-2014 End: 01-11-2023 Tobacco use and exposure Smokeless tobacco non-user [facility] Start: 02-20-2024 Alcohol intake 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 (finding) [facility] Start: 02-19-2024 End: 02-20-2024 History of Social function [facility] Start: 1960 Sex Assigned At Not on file [facility] Start: 04-17-2024 End: 04-18-2024 Alcoholic beverage intake Lifetime non-drinker (finding) [facility] Start: 12-29-2022 Alcohol Comment Caffeine intake: non e [facility] Start: 1960 Sex assigned at [facility] Start: 12-27-2022 Gender identity Identifies as female gender (finding) [facility] Functional Status Date Assessment Result Facility 04-10-2024 Functional Status N/A [facility] 08-07-2023 Functional Status N/A [facility] 03-01-2023 Functional Status No [facility] 02-22-2023 Functional Status No [place] [facility] Clinical Notes 01-03-2022 to 06-04-2024 Telephone Encounter - Jp Mcclendon - 06/04/2024 2:12 PM ESTTelephone Encounter - Jp Mcclendon - 06/04/2024 2:12 PM ESTTelephone Encounter - Daina Aquino - 06/04/2024 1:41 PM ESTRadiology Note Date & Type Note Facility 06-04-2024 Telephone encounter Note INN [facility] 06-04-2024 Miscellaneous Notes INN documented in this encounter [facility] 06-04-2024 Telephone encounter Note Patient: Emeli Kaufman Date of : 1960 Patient phone number: [phone] Referring Provider for the encounter: Kem Block Requesting Provider: n/a Reason for requesting visit (RFV/signs and symptoms/diagnosis): Cardiac mass (I51.89). Person calling: caregiver: Daina Return call to: self Medical Records/Insurance Card scanned into Epic: Yes Comments: [facility] 06-04-2024 Miscellaneous Notes Patient: Emeli Kaufman Date of : 1960 Patient phone number: [phone] Referring Provider for the encounter: Kem Block Requesting Provider: n/a Reason for requesting visit (RFV/signs and symptoms/diagnosis): Cardiac mass (I51.89). Person calling: caregiver: Daina Return call to: self Medical Records/Insurance Card scanned into Epic: Yes Comments: documented in this encounter [facility] 05-30-2024 Note [facility] 05-16-2024 Note PET scan reviewed. W ill repeat a scan in 3 months. See the patient and probably will need a bronch, and EBUS TBNA Niya Chilel MD Interventional Pulmonary Medicine Pulmonary and Critical Care Medicine [facility] 05-02-2024 Note [facility] 04-30-2024 Note Oncology Progress No te Diagnoses 1. Breast cancer, left (C50.912: Malignant neoplasm of unspecified site of left female breast) 2. Lytic bone lesions on xray (M89.9: Disorder of bone, unspecified) Oncological History/ROS/PE/Assessment and Plan Chief Complaint breast Ca; has a mole that would like to discuss today. Lytic bone lesion found on calvarium and iliac bones while she was admitted that [facility] with bronchiectasis related hemoptysis. HPI: Emeli is a 62-year-old lady with history of multiple sclerosis and bronchiectasis who was referred by Dr. Simon to our oncology clinic to be evaluated and managed for her new left breast invasive lobular carcinoma, ER +90%, [place] +20 to 30%, HER2/elif 1+, and Ki67 was positive 1%. 2 out of 2 sentinel lymph node with positive for macro metastatic disease. Her tumor was discussed at the [facility] tumor board patient is to obtain Oncotype [...] Lumpectomy with wire-guided localization LYMPH NODE SAMPLING: [place] lymph node(s) SPECIMEN INTEGRITY: multiple specimens (A [...] DX screen came back only 17 with Re (more content not included)... [facility] 04-26-2024 Note [facility] 04-18-2024 History of Present illness Narrative Images from the original note were not included. Fernanda Mcgovern D.O. Obstetrics and Gynecology Patient: Emeli Kaufman : 1960 (63 y.o.) Yearly Wellness Exam Date: 04/18/2024 Reason for Visit - Chief Complaint Patient presents with Gynecologic Exam Denies concerns, Denies bowel/bladder/breast concerns. Denies vaginal bleeding/spotting. Visit Vitals OB Status Postmenopausal Smoking Status Never No Known Allergies History of Present Illness, Associated Treatments and Results - OB History Para Term AB Living 0 0 0 0 0 0 SAB IAB Ectopic Multiple Live Births 0 0 0 0 3 Obstetric Comments Pap smear 01/11/23 wnl Mammogram 03/01/24 wnl @ [facility] Review of Systems - General: Chills denies. Allergy/Immunology: Rash Denies. ENT: Denies Difficulty swallowing. Endocrine: Denies Cold intolerance denies. Heat intolerance denied. Respiratory: Denies Chest pain denies. Shortness of breath denies. Breast: Denies Bloody nipple discharge denies. Breast lump denies. Cardiovascular: Denies Chest pain. Gastrointestinal: Abdominal pain denies. Blood in stool denies. Hematology: Easy bruising denies. Prolonged bleeding denies. Women Only: Breast lump denies. Vaginal bleeding between periods is denied. Vaginal discharge/itching denied. Genitourinary: Blood in urine denies. Painful urination denies. Incontinence denies. Skin: Hair changes. Neurologic: Seizures denied. Stroke denies. Psychiatric: Anxiety denies. Depressed mood denies. Medication Documentation Review Audit Reviewed by Windy Goff MA (Measurement Advisor) on 04/18/24 at 1329 Medication Order Taking? Sig Documenting Provider Last Dose Status alendronate (Fosamax) 70 MG tablet [id number] TAKE 1 TABLET BY MOUTH EVERY 7 DAYS WITH 6-8 OZ WATER 30 MINUTES BEFORE ANY FOOD DRINK OR MEDICATION Fernanda Mcgovern DO Active calcium carbonate (Os-Tony) 1250 (500 Ca) MG tablet [id number] Take 1 tablet by mouth in the morning. Fernanda Mcgovern DO Active cholecalciferol (Vitamin D-3) 50 MCG (2000 UT) tablet [id number] Take 2,000 Units by mouth in the morning. Historical Provider, Active latanoprost (Xalatan) 0.005 % ophthalmic solution [id number] Administer 1 drop into both eyes at bedtime. Historical Provider, Active letrozole (Femara) 2.5 MG chemo tablet [id number] Yes Take 2.5 mg by mouth Daily. Fernanda Mcgovern DO Active levoFLOXacin (Levaquin) 750 MG tablet [id number] Yes Fernanda Mcgovern DO Active metoprolol tartrate (Lopressor) 25 MG tablet [id number] Yes Take 12.5 mg by mouth in the morning and 12.5 mg in the evening. Fernanda Mcgovern DO Active Past Medical History: Diagnosis Date Breast cancer (CMS/HCC) 2022 Bronchiectasis ([facility]) delivery delivered History of bronchoscopy 2010 Lung infection 2011 slow growing lung infection Migraine, menstrual, intractable (CMS/HCC) Miscarriage D&C Multiple sclerosis (CMS/[facility]) 2006 Pneumonia x2 Past Surgical History: Procedure Laterality Date BREAST LUMPECTOMY Left 03/2023 BRONCHOSCOPY 02/2024 SECTION, CLASSIC 1994 SECTION, LOW TRANSVERSE COLONOSCOPY 2014 DILATION AND CURETTAGE 1992 miscarriage VAGINAL DELIVERY 1982, 1993 Family History Problem Relation Name Age of Onset Clotting disorder Mother Heart disease Mother Clotting disorder Father Heart disease Father No Known Problems Brother Diabetes Maternal Grandfather BUD No Known Problems Paternal Grandmother No Known Problems Paternal Grandfather Physical Exam - General appearance, mentation, extraocular movements, facial strength and movement, hearing, upper and lower extremity strength and tone, sensation to gross testing, coordination, and gait are normal or at baseline unless noted below. General Examination: GENERAL APPEARANCE: alert oriented well developed, well nourished. HEAD: normocephalic atraumatic. EYES: sclera anicteric. EARS: no obvious hearing deficit. SKIN: warm and dry. HEART: regular rate and rhythm. LUNGS: clear to auscultation bilaterally. CHEST: axillary nodes grossly normal. BREASTS: no masses palpable bilaterally, normal nipples bilaterally, s/p lumpectomy left breast ABDOMEN: soft, nontender, nondistended, no masses palpable. BACK: no costovertebral angle tenderness, no obvious scoliosis/kyphosis. FEMALE GENITOURINARY: atrophic vaginal mucosa, cervix absent of lesions, nontender, uterus AV, mobile, ovaries nonpalpable and nontender. EXTREMITIES: no edema. NEUROLOGIC: alert and oriented. PSYCH: cooperative with exam. Diagnoses and all orders for this visit: Encounter for gynecological examination without abnormal finding Screening for malignant neoplasm of cervix - SENDOUT TEST MISCELLANEOUS [facility] Encounter for screening mammogram for breast cancer Pap, pelvic and breast exam completed. Findings of today's exam discussed with the patient. Continue MSBE. Ca/Vit D recommendations reviewed with the patient. The patient is to contact the office with any changes to her gynecological condition. The patient is to return in 1 year or as needed ICD-10-CM 1. Encounter for gynecological examination without abnormal finding Z01.419 2. Screening for malignant neoplasm of cervix Z12.4 3. Encounter for screening mammogram for breast cancer Z12.31 documented in this encounter [facility] 04-09-2024 Hospital Discharge instructions Follow Up Care 04/09/2024 13:00:10 With:Sylvain RICE, BRENNAN Mello, ONC Address: When: Unknown Comments:Continue letrozole, Fosamax, calcium and vitamin D.CBC with differential CMP in 4 months.See pulmonary and may be infectious disease at [place] for evaluation of the multiple lung lesion that is consistent with a chronic infections.Return in 4 months. [facility] 04-09-2024 Note Oncology Progress No te Chief Complaint Breast CA; no questions or concerns. Diagnoses 1. Breast cancer, left (C50.912: Malignant neoplasm of unspecified site of left female breast) 2. Lytic bone lesions on xray (M89.9: Disorder of bone, unspecified) Oncological History/ROS/PE/Assessment and Plan Chief Complaint breast Ca; has a mole that would like to discuss today. Lytic bone lesion found on calvarium and iliac bones while she was admitted that [facility] with bronchiectasis related hemoptysis. HPI: Emeli is a 62-year-old lady with history of multiple sclerosis and bronchiectasis who was referred by Dr. Simon to our oncology clinic to be evaluated and managed for her new left breast invasive lobular carcinoma, ER +90%, AZ +20 to 30%, HER2/elif 1+, and Ki67 was positive 1%. 2 out of 2 sentinel lymph node with positive for macro metastatic disease. Her tumor was discussed at the [facility] tumor board patient is to obtain Oncotype [...] Lumpectomy with wire-guided localization LYMPH NODE SAMPLING: [place] lymph node(s) SPECIMEN INTEGRITY: multiple specimens (A [...] 05/25/23 for adjuvant radiation to her left (more content not included)... [facility] 04-01-2024 Note [facility] 04-01-2024 Note [facility] 04-01-2024 Hospital Discharge instructions Follow Up Care 04/01/2024 11:52:43 With:Sylvain RICE, BRENNAN Mello, ONC Address: When: Unknown Comments:A biopsy from 1 of those iliac bone lesions. PET CT scan to identify the bone lesions and also the liver lesion if they are FDG avid or not.Obtain multiple myeloma serum labs and 24-hour urine for UPEP and free light chains.Obtain a serum CA 15-3 and CA 27-29.Return in 3 weeks for the results of the biopsy and PET CT scan and the labs as well. [facility] 03-31-2024 Note [facility] 03-31-2024 Note [facility] 03-30-2024 Note [facility] 03-30-2024 Note [facility] 03-29-2024 Note [facility] 03-28-2024 Note [facility] 03-27-2024 Note [facility] 03-27-2024 Note [facility] 03-27-2024 Note [facility] 03-27-2024 Note [facility] 03-27-2024 Note [facility] 03-27-2024 Note [facility] 03-26-2024 Note AFB cultures remain negative to date [facility] 03-26-2024 Note Patient is up walkin g halls with spouse without the need for oxygen. Patient has no complaints of shortness of breath. Plan of care is ongoing. [facility] 03-26-2024 Note [facility] 03-26-2024 Note [facility] 03-26-2024 Note [facility] 03-26-2024 Note [facility] 03-26-2024 Note [facility] 03-26-2024 Note [facility] 03-25-2024 Note [facility] 03-25-2024 Note [facility] 03-25-2024 Note [facility] 03-25-2024 Note [facility] 03-25-2024 Note 9:30-SW sent MRI fin dings to [facility], to call. 10:30-SW called and faxed updated documents to [facility]-await call back on accepting. OTM will continue to follow. [facility] 03-25-2024 Note [facility] 03-25-2024 Note [facility] 03-24-2024 Note [facility] 03-24-2024 Note [facility] 03-23-2024 Note [facility] 03-23-2024 Note [facility] 03-23-2024 Note [facility] 03-22-2024 Note [facility] 03-22-2024 Note [facility] 03-22-2024 Note [facility] 03-22-2024 Note [facility] 03-22-2024 Note [facility] 03-22-2024 Note [facility] 03-21-2024 Note [facility] 03-21-2024 Note [facility] 03-21-2024 Note [facility] 03-20-2024 Note [facility] 03-20-2024 Note [facility] 03-20-2024 Note [facility] 03-20-2024 Note [facility] 03-20-2024 Note [facility] 03-19-2024 Note [facility] 03-19-2024 Note [facility] 03-18-2024 Note [facility] 03-18-2024 Note [facility] 03-17-2024 Note [facility] 03-17-2024 Note [facility] 03-17-2024 Note [facility] 03-16-2024 Note [facility] 03-15-2024 Note [facility] 03-15-2024 Note [facility] 03-15-2024 Note [facility] 03-14-2024 Note [facility] 03-14-2024 Note Satisfactory for luci pena. Examination of the ThinPrep slide and cell block reveals benign bronchial cells, abundant acute inflammation, bacteria, and debris. [facility] Comment on above: Performed By: #### L AB13 ####[facility] ([facility]ACK)[address] [place] [address] 03-11-2024 Note Oncology Progress No te Chief [...] left breast invasive lobular carcinoma, ER +90%, [place] +20 to 30%, HER2/elif 1+, and Ki67 was positive 1%. 2 out of 2 sentinel lymph node with positive for macro metastatic disease. Her tumor was discussed at the [facility] tumor board patient is to obtain Oncotype [...] Lumpectomy with wire-guided localization LYMPH NODE SAMPLING: [place] lymph node(s) SPECIMEN INTEGRITY: multiple specimens (A [...] adjuvant treatment. She (more content not included)... [facility] 02-20-2024 Note HNO ID: [id number] Author: CHRIS BAUM MD Service: ? Author Type: Physician Type: Progress Notes Filed: 02/20/2024 17:38 Note Text: [facility] FOLLOWUP/ESTABLISHED PATIENT VISIT Also followed by: Brianna [...] modifying therapy. Neuro-QoL Functions (higher=better functioning) Flowsheet [facility] Office Visit from 02/20/2024 in [facility] Office Visit from 07/01/2015 in [facility] Office Visit from 05/28/2014 in [facility] Upper Extremity Domain T Score 57 47.9 56.84 Lower Extremity Domain T Score 50 48.92 55.49 Cognitive Function Domain T Score 67 -- -- Positive Affect Well Being T Score -- -- -- Ability To Participate In Social Roles T Score 56 -- -- Satisfaction With Social Roles T Score 62 -- -- Neuro-QoL Symptoms (higher=worse symptoms) Flowsheet [facility] Office Visit from 02/20/2024 in [facility] Office Visit from 07/01/2015 in [facility] Office Visit from 05/28/2014 in [facility] Sleep Domain T Score 32 38.15 40.22 [...] without mention of status migrainosus, Multiple sclerosis (HCC), Pulmonary infiltrate, and Sciatica. She has no past medical history of Atrial fibrillation ([facility]), Cancer ([facility]), Chronic obstructive pulmonary disease (COPD) ([facility]), Chronic renal insufficiency, Congestive heart failure ([facility]), Coronary artery disease, Depression, Diabetes ([facility]), Epilepsy ([facility]), Hypertension, Obstructive sleep apnea, Steroid long-term use, Stroke ([facility]), or Substance abuse ([facility]). has a current medication list which includes the following prescription(s): letrozole, latanoprost, cholecalciferol, calcium carbonate, sodium chloride, albuterol, ipratropium bromide, and nebulizer and compressor for neb. EXAM: BP 133/81 Pulse 83 Ht 165.1 cm (5' 5 ) Wt 59 kg (130 lb) BMI 21.63 kg/m? MSPT Results Flowsheet Row Office Visit from 12/11/2015 in [facility] Office Visit from 07/01/2015 in [facility] Office Visit from 05/28/2014 in [facility] Processing Speed Total Number Correct -- -- [...] 5 Biceps 5 5 Triceps 5 5 Human Resource Officer 5 5 Dorsal interossei 5 5 Lower extremit (more content not included)... [facility] 02-20-2024 History of Present illness Narrative Images from the original note were not included. [facility] FOLLOWUP/ESTABLISHED PATIENT VISIT Also followed by: Brianna [...] Flowsheet Row Office Visit from 02/20/2024 in [facility] Office Visit from 07/01/2015 in [facility] Office Visit from 05/28/2014 in [facility] Upper Extremity Domain T Score 57 47.9 56.84 Lower Extremity Domain T Score 50 48.92 55.49 Cognitive Function Domain T Score 67 -- -- Positive Affect Well Being T Score -- -- -- Ability To Participate In Social Roles T Score 56 -- -- Satisfaction With Social Roles T Score 62 -- -- Neuro-QoL Symptoms (higher=worse symptoms) Flowsheet [facility] Office Visit from 02/20/2024 in [facility] Office Visit from 07/01/2015 in [facility] Office Visit from 05/28/2014 in [facility] Sleep Domain T Score 32 38.15 40.22 [...] mention of status migrainosus, Multiple sclerosis ([facility]), Pulmonary infiltrate, and Sciatica. She has no past medical history of Atrial fibrillation ([facility]), Cancer ([facility]), Chronic obstructive pulmonary disease (COPD) ([facility]), Chronic renal insufficiency, Congestive heart failure ([facility]), Coronary artery disease, Depression, Diabetes ([facility]), Epilepsy ([facility]), Hypertension, Obstructive sleep apnea, Steroid long-term use, Stroke ([facility]), or Substance abuse ([facility]). has a current medication list which includes the following prescription(s): letrozole, latanoprost, cholecalciferol, calcium carbonate, sodium chloride, albuterol, ipratropium bromide, and nebulizer and compressor for neb. EXAM: BP 133/81 Pulse 83 Ht 165.1 cm (5' 5 ) Wt 59 kg (130 lb) BMI 21.63 kg/m MSPT Results Flowsheet [facility] Office Visit from 12/11/2015 in [facility] Office Visit from 07/01/2015 in [facility] Office Visit from 05/28/2014 in [facility] Processing Speed Total Number Correct -- -- [...] 5 Biceps 5 5 Triceps 5 5 Human Resource Officer 5 5 Dorsal interossei 5 5 Lower [...] Ángel Zendejas MD Neuroimmunology Fellow, PGY 5 [facility] Multiple Sclerosis Patient seen and evaluated. She has long-standing multiple sclerosis but has been clinically stable for many years, without evidence for active inflammation. Although a brain MRI could be considered now, I think it's unlikely to change our current recommendations to remain off multiple sclerosis disease modifying therapy. Chris Baum MD cc: Brianna Yanez MD, [address] [facility] [id number] documented in this encounter [facility] 12-04-2023 Hospital Discharge instructions Follow Up Care 12/04/2023 15:23:41 With:Sylvain RICE, BRENNAN Mello, ONC Address: When: Unknown Comments:Continue taking letrozole or Femara once daily.Continue calcium and vitamin D.Continue taking Fosamax once a week for the osteoporosis.CBC and CMP labs in 6 months and return in 6 months. 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 Boo [facility] 09-04-2023 Hospital Discharge instructions Patient Education [...] including vitamins, herbs, eye drops, creams, and lwhc-wvq-lgloapr medicines. Any medical conditions you have. How [...] Total protein: ?Premature : 4.2 7.6 g/dL. ?[place]: 4.6 7.4 g/dL. ?: 6 6.7 g/dL. ?Child: 6.2 8 g/dL. Albumin: ?Premature infant: 3 4.2 g/dL. ?[place]: 3.5 5.4 g/dL. ?: 4.4 5.4 g/dL. [...] provider. Document Revised: 03/26/2021 Document Reviewed: 03/26/2021 [employer] Patient Education 2022 [employer]. Follow Up Care 05/22/2023 14:57:40 With:Sylvain RICE, BRENNAN Mello, ONC Address: When: Unknown Comments:Start Actonel 35 mg once a week with full glass of water in am in upright position, again only once a week.Continue Femara once daily.Calcium 500 mg twice daily.Continue vitamin D 2000 units daily.Labs in 3 months including CBC with differential, CMP, myeloma labs.Return in 3 months. 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 Vitals WNL. Rad site brisk, no open areas. Reviewed proper skin care, pt verbalizes understanding. Pt. Denies any pain. No further concerns at this time. [facility] 07-13-2023 Note [facility] 06-27-2023 Note [facility] 06-27-2023 Note [facility] 06-22-2023 Note [facility] 06-22-2023 Note TAILOR FITTER NOTE: Emeli is accompanied by Aamir. Pt has completed 02/07 fx RT to Left Breast/LN. Pt denies pain. Respirations are unlabored, O2 sat 95% RA. Pt is cleansing treatment area with antibacterial soap daily and moisturizer as directed. [facility] 05-01-2023 Hospital Discharge instructions Follow Up Care 05/01/2023 10:39:18 With:Neftali Narayan Address: [facility] [address] [place] [phone]- [phone] Business (1) When: Unknown Comments:Proceed with radiation oncology consult and adjuvant radiation once recommended by them.LFTS and Bone density scan now.Start Femara 2.5 mg once daily one week after completing the radiation to the left breast.Start calcium 500 mg one pill twice daily.Start vitamin D 2000 units daily.LFTs 4 weeks after starting Femara and RTC then. [facility] 04-25-2023 Hospital Discharge instructions Follow Up Care 04/25/2023 12:37:04 With:Neftali Narayan Address: [facility] [address] [place], [place] [address] [address]- [phone] Business (1) When: Unknown Comments:The plan will need to do Oncotype DX scoreReferral to radiation oncology for evaluation for need for adjuvant radiation. Return in 2 to 3 weeks for oncotype DX results [facility] 01-03-2022 Note PROCEDURE: XR FOOT R T MIN 3 VIEWS HISTORY: Cellulitis ; acute second toe pain COMPARISON: None. FINDINGS: BONES:No fracture, acute abnormality, or significant arthropathy. SOFT TISSUES:No visible soft tissue swelling. EFFUSION:None visible. OTHER: Negative. IMPRESSION: 1. No appreciable bone or soft tissue abnormality to account for patient's symptoms. Electronically authenticated by: LUCIEN BONILLA Date: 2022-01-03 17:34 [facility] Evaluation + Plan note Future Appointments Appointment Date:03/01/2023 09:00:00 AM Scheduled Provider: Location:.MAMMOGRAM Appointment Type:MA Needle Loc (FT) Appointment Date:03/01/2023 11:00:00 AM Scheduled Provider: [facility] Appoint[facility] Type:NM Lymphoscintigraphy (FT) Appointment Date:03/01/2023 12:00:00 PM Scheduled Provider: Location:[facility] Appointment Type:Surgery FT Appointment Date:03/01/2023 02:00:00 PM Scheduled Provider: Location:.MAMMOGRAM Appointment Type:MA Diagnostic (FT) Appointment Date:03/13/2023 03:00:00 PM Scheduled Provider:Lauro Simon MD Location:[facility] Appointment Type: Post Op 15 Future Scheduled TestsMA Breast Needle Loc w/ Guidance, Left 03/01/23NM Lymphoscintigraphy 03/01/23MA Mamm Diag w/CAD if perf and 3D LT 03/01/23 [facility] Evaluation + Plan note Future Appointments Appointment Date:03/22/2023 09:00:00 AM Scheduled Provider: Location:.MAMMOGRAM Appointment Type:MA Needle Loc (FT) Appointment Date:03/22/2023 10:00:00 AM Scheduled Provider: [facility] Appointment Type:NM Lymphoscintigraphy (FT) Appointment Date:03/22/2023 01:00:00 PM Scheduled Provider: Location:[facility] Appointment Type:Surgery FT Appointment Date:03/22/2023 03:00:00 PM Scheduled Provider: Location:.MAMMOGRAM Appointment Type:MA Diagnostic (FT) Appointment Date:04/03/2023 02:00:00 PM Scheduled Provider:Lauro Simon MD Location:[facility] Appointment Type: Post Op 15 Future Scheduled TestsMA Breast Needle Loc w/ Guidance, Left 03/22/23NM Lymphoscintigraphy 03/22/23MA Mamm Diag w/CAD if perf and 3D LT 03/22/23 [facility] Evaluation + Plan note Future Appointments Appointment Date:04/03/2023 02:00:00 PM Scheduled Provider:Lauro Simon MD Location:[facility] Appointment Type: Post Op 15 [facility] Evaluation + Plan note Future Appointments Appointment Date:05/22/2023 02:00:00 PM Scheduled Provider: [facility] App[facility] Type:ONC Office Visit 30 (FT) Appointment Date:07/24/2023 03:00:00 PM Scheduled Provider:Lauro Simon MD Location:[facility] Appointment Type:[facility] 15 [facility] General Surgery [place] Evaluation + Plan note Future Appointments Appointment Date:07/24/2023 03:00:00 PM Scheduled Provider:Lauro Simon MD Location:[facility] Appointment Type:[place] [address] Appointment Date:08/14/2023 02:30:00 PM Scheduled Provider: Location:.ONCOLOGY Appointment Type:ONC Office Visit 30 (FT) Future Scheduled TestsHepatic Function Panel 08/07/23BD Bone Density DEXA 05/23/23 [facility] Evaluation + Plan note Future Appointments Appointment Date:07/24/2023 03:00:00 PM Scheduled Provider:Lauro Simon MD Location:[facility] Appointment Type:[facility] Appointment Date:08/14/2023 02:30:00 PM Scheduled Provider: Location:.ONCOLOGY Appointment Type:ONC Office Visit 30 (FT) Future Scheduled TestsHepatic Function Panel 08/07/23 [facility] Evaluation + Plan note Future Appointments Appointment Date:08/14/2023 02:30:00 PM Scheduled Provider: Location:FT.ONCOLOGY Appointment Type:ONC Office Visit 30 (FT) Appointment Date:11/06/2023 03:00:00 PM Scheduled Provider:Lauro Simon MD Location:[facility] Appointment Type:[place] [address] Future Scheduled TestsHepatic Function Panel 08/07/23 [facility] General Surgery [place] Evaluation + Plan note Future Appointments Appointment Date:09/04/2023 02:30:00 PM Scheduled Provider:Neftali Narayan MD [facility] App[facility] Type:ONC Office Visit 30 (FT) Appointment Date:11/06/2023 03:00:00 PM Scheduled Provider:Lauro Simon MD Location:[facility] Appointment Type:[address] Evaluation + Plan note Future Appointments Appointment Date:11/06/2023 03:00:00 PM Scheduled Provider:Lauro Simon MD Location:[facility] Appointment Type:[facility] Appointment Date:12/04/2023 02:30:00 PM Scheduled Provider:Neftali Narayan MD Location:FT.ONCOLOGY Appointment Type:ONC Office Visit 30 (FT) Future Scheduled TestsIFE and PE, Serum 12/03/23Immunoglobs. A/E/G/M 12/03/23Free K+L Lt Chains,Qn,S 12/03/23CBC w/ Auto Diff 12/03/23Comprehensive Metabolic Panel 12/03/23 [facility] Evaluation + Plan note Future Appointments Appointment Date:12/04/2023 02:30:00 PM Scheduled Provider:Neftali Narayan MD Location:FT.ONCOLOGY Appointment Type:ONC Office Visit 30 (FT) Appointment Date:02/05/2024 03:00:00 PM Scheduled Provider:Lauro Simon MD Location:[facility] Appointment Type: Established 15 Future Scheduled TestsIFE and PE, Serum 12/03/23Immunoglobs. A/E/G/M 12/03/23Free K+L Lt Chains,Qn,S 12/03/23CBC w/ Auto Diff 12/03/23Comprehensive Metabolic Panel 12/03/23 [facility] General Surgery [place] Evaluation + Plan note Future Appointments Appointment Date:12/04/2023 02:30:00 PM Scheduled Provider:Neftali Narayan MD Location:.ONCOLOGY Appointment Type:ONC Office Visit 30 (FT) Appointment Date:02/05/2024 03:00:00 PM Scheduled Provider:Lauro Simon MD Location:[facility] Appointment Type: Established 15 Diagnostic Tests PendingIFE and PE, Serum 11/20/23Immunoglobs. A/E/G/M 11/20/23Free K+L Lt Chains,Qn,S 11/20/23 [facility] Evaluation + Plan note Future Appointments Appointment Date:02/05/2024 03:00:00 PM Scheduled Provider:Lauro Simon MD Location:[facility] Appointment Type: Established 15 Appointment Date:03/04/2024 03:30:00 PM Scheduled Provider:Neftali Narayan MD Location:FT.ONCOLOGY Appointment Type:ONC Office Visit 30 (FT) Future Scheduled TestsComprehensive Metabolic Panel 02/26/24 [facility] Evaluation + Plan note Future Appointments Appointment Date:03/11/2024 03:00:00 PM Scheduled Provider:Neftali Narayan MD Location:.ONCOLOGY Appointment Type:ONC Office Visit 30 (FT) Appointment Date:05/27/2024 03:00:00 PM Scheduled Provider:Lauro Simon MD Location:[facility] Appointment Type: Established 15 [facility] General Surgery [place] Evaluation + Plan note Future Appointments Appointment Date:05/27/2024 03:00:00 PM Scheduled Provider:Lauro Simon MD Location:[facility] Appointment Type: Established 15 Appointment Date:09/02/2024 03:20:00 PM Scheduled Provider:Neftali Narayan MD Location:FT.ONCOLOGY Appointment Type:ONC Office Visit 20 (FT) Future Scheduled TestsCBC w/ Auto Diff 09/11/24Comprehensive Metabolic Panel 09/11/24 [facility] Evaluation + Plan note Future Appointments Appointment Date:04/30/2024 03:40:00 PM Scheduled Provider:Neftali Narayan MD Location:[facility].ONCOLOGY Appointment Type:ONC Office Visit 20 (FT) Appointment Date:05/27/2024 03:00:00 PM Scheduled Provider:Lauro Simon MD Location:[facility] Appointment Type: Established 15 Diagnostic Tests PendingCA 15-3 04/09/24CA 27 29 04/09/24IFE and PE, Serum 04/09/24Free K+L Lt Chains,Qn,S 04/09/24IgE, Quant 04/09/24 Future Scheduled TestsCBC w/ Auto Diff 03/28/24CBC w/ Auto Diff 09/11/24Comprehensive Metabolic Panel 03/28/24Comprehensive Metabolic Panel 09/11/24CT Biopsy, Bone Superficial 04/10/24 [facility] Evaluation + Plan note Future Appointments Appointment Date:04/30/2024 03:40:00 PM Scheduled Provider:Neftali Narayan MD Location:FT.ONCOLOGY Appointment Type:ONC Office Visit 20 (FT) Appointment Date:05/27/2024 03:00:00 PM Scheduled Provider:Lauro Simon MD Location:[facility] Appointment Type: Established 15 Future Scheduled TestsCBC w/ Auto Diff 03/28/24CBC w/ Auto Diff 09/11/24Comprehensive Metabolic Panel 03/28/24Comprehensive Metabolic Panel 09/11/24CT Biopsy, Bone Superficial 04/10/24 [facility] Evaluation + Plan note Future Appointments Appointment Date:04/19/2024 09:00:00 AM Scheduled Provider: [facility] Appoint[facility] Type:CT Biopsy (FT) Appointment Date:04/19/2024 09:00:00 AM Scheduled Provider: Location:[facility] Appointment Type:Surgery FT Appointment Date:04/30/2024 03:40:00 PM Scheduled Provider:Neftali Narayan MD [facility] App[facility] Type:ONC Office Visit 20 (FT) Appointment Date:05/27/2024 03:00:00 PM Scheduled Provider:Lauro Simon MD Location:[facility] Appointment Type: Established 15 Future Scheduled TestsCBC w/ Auto Diff 03/28/24CBC w/ Auto Diff 09/11/24Comprehensive Metabolic Panel 03/28/24Comprehensive Metabolic Panel 09/11/24CT Biopsy, Bone Superficial 04/19/24 [facility] Evaluation + Plan note Future Appointments Appointment Date:04/30/2024 03:40:00 PM Scheduled Provider:Neftali Narayan MD Location:[facility].ONCOLOGY Appointment Type:ONC Office Visit 20 (FT) Appointment Date:05/27/2024 03:00:00 PM Scheduled Provider:Lauro Simon MD Location:[facility] Appointment Type: Established 15 Future Scheduled TestsCBC w/ Auto Diff 03/28/24CBC w/ Auto Diff 09/11/24Comprehensive Metabolic Panel 03/28/24Comprehensive Metabolic Panel 09/11/24 [facility] Evaluation + Plan note Future Appointments Appointment Date:05/27/2024 03:00:00 PM Scheduled Provider:Lauro Simon MD Location:[facility] Appointment Type: Established 15 Appointment Date:08/27/2024 03:20:00 PM Scheduled Provider:Neftali Narayan MD Location:[facility].ONCOLOGY Appointment Type:ONC Office Visit 20 (FT) Future Scheduled TestsCBC w/ Auto Diff 03/28/24CBC w/ Auto Diff 08/31/24CBC w/ Auto Diff 09/11/24Comprehensive Metabolic Panel 03/28/24Comprehensive Metabolic Panel 08/31/24Comprehensive Metabolic Panel 09/11/24 [facility] Evaluation + Plan note Future Appointments Appointment Date:08/27/2024 03:20:00 PM Scheduled Provider:Sylvain RICE, Neftali Ling [facility] Appoint[facility] Type:ONC Office Visit 20 (FT) Appointment Date:12/10/2024 02:40:00 PM Scheduled Provider:Lauro Simon MD Location:[facility] Appointment Type: Established 15 Future Scheduled TestsCBC w/ Auto Diff 03/28/24CBC w/ Auto Diff 08/31/24CBC w/ Auto Diff 09/11/24Comprehensive Metabolic Panel 03/28/24Comprehensive Metabolic Panel 08/31/24Comprehensive Metabolic Panel 09/11/24 [facility] General Surgery [place] Evaluation note Diagnosis Multiple sclerosis (HCC)- Primary Multiple sclerosis [facility] Diagnosis Encounter for gynecological examination without abnormal finding Screening for malignant neoplasm of cervix Screening for malignant neoplasm of the cervix Encounter for screening mammogram for breast cancer [facility] No data available for this section [facility] No data available for this section [facility] No data available for this section [facility] Summary Purpose Family History No Family [...] section and content) DATE CREATED AUTHOR 01/01/2022 [facility]ical Specialist DATE CREATED AUTHOR AUTHOR'S ORGANIZ ATION 12/23/2022 [facility] DATE CREATED AUTHOR AUTHOR'S ORGANIZ ATION 02/28/2024 [facility] DATE CREATED AUTHOR AUTHOR'S ORGANIZ ATION 04/03/2024 [facility] DATE CREATED AUTHOR AUTHOR'S ORGANIZ ATION 04/12/2024 [facility] DATE CREATED AUTHOR AUTHOR'S ORGANIZ ATION 04/13/2024 [facility] DATE CREATED AUTHOR AUTHOR'S ORGANIZ ATION 04/14/2024 [facility] DATE CREATED AUTHOR AUTHOR'S ORGANIZ ATION 04/16/2024 [facility] DATE CREATED AUTHOR AUTHOR'S ORGANIZ ATION 04/19/2024 [facility] DATE CREATED AUTHOR AUTHOR'S ORGANIZ ATION 04/20/2024 [facility] dical [facility] DATE CREATED AUTHOR AUTHOR'S ORGANIZ ATION 04/21/2024 [facility] DATE CREATED AUTHOR AUTHOR'S ORGANIZ ATION 04/22/2024 [facility] DATE CREATED AUTHOR AUTHOR'S ORGANIZ ATION 04/23/2024 [facility] DATE CREATED AUTHOR AUTHOR'S ORGANIZ ATION 05/02/2024 [facility] DATE CREATED AUTHOR AUTHOR'S ORGANIZ ATION 05/29/2024 [facility] DATE CREATED AUTHOR AUTHOR'S ORGANIZ ATION 06/06/2024 [facility] DATE CREATED AUTHOR AUTHOR'S ORGANIZ ATION 06/07/2024 [facility] Patient Care team informatio n (unrecognized section and content) Business Continuity Manager Relationship Specialty Start Date End Date Brianna Yanez MD PCP - General Family Medicine 09/09/10 Business Continuity Manager Relationship Specialty Start Date End Date Brianna Yanez MD [address] [place] [address] PCP - General Family Medicine 12/28/22 Business Continuity Manager Relationship Specialty Start Date End Date Brianna Yanez MD [address] [place] [address] PCP - General Family Medicine 12/28/22 Business Continuity Manager Relationship Specialty Start Date End Date Brianna Yanez MD PCP - General Family Medicine 09/09/10 Kem Block MD [address] [place] [address] Referring Cardiology 06/04/24 Unspecified, Cardiac Surgeon - [address] [place] [address] Surgeon Cardiac Surg 06/04/24 Source Comments (unrecognize d section and content) In the event this informatio n is protected by the Federal Confidentiality of Alcohol and Drug Abuse Patient Records regulations: The Federal rules restrict any use of the information to criminally investigate or prosecute any alcohol or drug abuse patient.[facility] the event this information is protected by the Federal Confidentiality of Alcohol and Drug Abuse Patient Records regulations: The Federal rules restrict any use of the information to criminally investigate or prosecute any alcohol or drug abuse patient.[facility] the event this information is protected by the Federal Confidentiality of Alcohol and Drug Abuse Patient Records regulations: The Federal rules restrict any use of the information to criminally investigate or prosecute any alcohol or drug abuse patient.[facility] Reason for Visit (unrecogniz ed section and content) Reason Comments New Patient Evaluation Reason Comments Gynecologic Exam Denies concerns, Den ies bowel/bladder/breast concerns. Denies vaginal bleeding/spotting. Reason Comments External Referrals/resources Reason Comments Insurance Inquiry FOR RECORDS PERTAINING TO PATIENTS WHO ARE [...] BE BASED ON THE PRIMARY CLINICAL RECORDS. [facility]. provides no warranty or guarantee of the accuracy or completeness of information in this document.
== END 2024-06-10 14:50 | disposition home or self-care (01) ==
LOC: LAB 14:49
PROVIDERS: PCP Family Medicine; Visit Provider Family Medicine
DX: R07.9 Chest pain, unspecified (principal)
CPT/HCPCS: 87070; 87205

== ENCOUNTER 2024-06-26 15:38 | Outpatient (OUT) | payer MEDICARE, OTHER, SELFPAY ==
--- NOTE | 2024-06-26 15:46 | XR_ITS ---
The [address] [address] Patient Name: MIRIAM DE PAZ MRN: [id number] date: 1960 Sex: F Assigned Patient Location: [facility] Current Patient Location: Accession/Order Number: [id number] Exam Date: 06/26/2024 16:02 Report Date: 06/27/2024 07:27 At the request of: BRIANNA YANEZ Procedure: XR ribs LT 2V EXAMINATION: XR chest 2V, XR ribs LT 2V HISTORY: Rib Pain COMPARISON: 10/31/2023 FINDINGS: LUNGS: Moderate bibasilar parenchymal infiltrates, improved from the prior exam but of unknown etiology partially obscuring the hemidiaphragms PLEURA: No pneumothorax. Suspected small left pleural effusion MEDIASTINUM: No visible mass or adenopathy. CARDIAC: No cardiomegaly or cardiac silhouette abnormality. RIBS: No acute rib fracture OTHER: Negative. XR/XR ribs LT 2V IMPRESSION: Moderate bibasilar infiltrates of unknown etiology but improved from the prior exam No acute rib fracture Electronically authenticated by: AYAKA WU Date: 06/27/2024 07:27
--- NOTE | 2024-06-26 15:46 | XR_ITS ---
The [address] [address] Patient Name: MIRIAM DE PAZ MRN: [id number] date: 1960 Sex: F Assigned Patient Location: [facility] Current Patient Location: Accession/Order Number: [id number] Exam Date: 06/26/2024 16:02 Report Date: 06/27/2024 07:27 At the request of: BRIANNA YANEZ Procedure: XR chest 2V EXAMINATION: XR chest 2V, XR ribs LT 2V HISTORY: Rib Pain COMPARISON: 10/31/2023 FINDINGS: LUNGS: Moderate bibasilar parenchymal infiltrates, improved from the prior exam but of unknown etiology partially obscuring the hemidiaphragms PLEURA: No pneumothorax. Suspected small left pleural effusion MEDIASTINUM: No visible mass or adenopathy. CARDIAC: No cardiomegaly or cardiac silhouette abnormality. RIBS: No acute rib fracture OTHER: Negative. XR/XR chest 2V IMPRESSION: Moderate bibasilar infiltrates of unknown etiology but improved from the prior exam No acute rib fracture Electronically authenticated by: AYAKA WU Date: 06/27/2024 07:27
== END 2024-06-26 15:39 | disposition home or self-care (01) ==
LOC: RAD 15:39
PROVIDERS: PCP Family Medicine; Visit Provider Family Medicine
DX: R07.81 Pleurodynia (principal)
CPT/HCPCS: 71046; 71100

== ENCOUNTER 2025-01-21 10:27 | Outpatient (REF) | payer MEDICARE, OTHER, SELFPAY ==
--- OUTSIDE RECORDS SUMMARY | 2016-04-18 05:10 | XMS_ITS | Continuity of Care Document ---
Author Organization [facility] Address [address] [place] [address] Phone Care Team Providers Care Insurance Policy Clerk Name Role Phone Maryellen RICE, Myra Unavailable Unavailable Allergies, Adverse Reactions, Alerts Substance Reaction Status Criticality No Known Allergies Active No Inform ation Medications Medication Instructions Dosage Effective Dates (start - stop) Status Comments VORICONAZOLE (unknown strength) take 2 tablet by oral route every 12 hours at least 1 hour before or 1 hour after a meal Not Available - Active Avonex 30 mcg/0.5 mL intramuscular pen injector inject 0.5 milliliter by intramuscular route every week 30 MCG - Active Combigan 0.2 %-0.5 % eye drops instill 1 drop by ophthalmic route 2 times every day both eyes - Active Procedures Procedure Date Ext Ophthalmoscopy, SUBSEQUENT Ext Ophthalmoscopy, SUBSEQUENT Medical Eye Exam, Established With Tx Oc Ext Ophthalmoscopy, SUBSEQUENT 16 Ext Ophthalmoscopy, SUBSEQUENT Medical Eye Exam, Established With Tx Fe POSTOP FOLLOW-UP VISIT POSTOP FOLLOW-UP VISIT REPAIR DETACHED RETINA POSTOP FOLLOW-UP VISIT Laser (tear) Ext Ophthalmoscopy, Initial New Patient, High Advance Directives Directive Yes / No Effective Date File Name No Information Encounters Encounter Description Practice Location Reason(s) For Visit Diagnoses Date Provider Providers Copied on Encounter [facility] Physician s, [address] [place], [address], tel:[phone] RVA Norbert treated retinal tears (chief complaint)de nies vision changes (chief complaint)Bl ood Pressure: (chief complaint) Multiple defects of retina without detachment, bilateralRetinal detachment with single break, left eyeVitreous degeneration, bilateralLattice degeneration of retina, bilateralBilateral age-related nuclear cataracts Oct-0 3- 6 Orgel Myra. [address], [address], [place], [place], [id number] , [place]. tel: [phone] Referring Provider: Myra Olson, [address], [address] . tel:[phone] [facility], [address], [place], [facility], tel: [phone] RVA [place] treated retinal tears (chief complaint)st able vision (chief complaint)__ _ (chief complaint) Multiple defects of retina without detachment, bilateralRetinal detachment with single break, left eyeVitreous degeneration, bilateralLattice degeneration of retina, bilateralBilateral age-related nuclear cataracts Feb-0 6 Orgel Myra. [address], [address], [place], [place], [id number] , [place]. tel: [phone] Referring Provider: Myra Olson, [address] [place], [address] . tel:[phone] [facility], [address], [place], [facility], [place] tel: [phone] [facility] [place] History of Detachments (chief complaint)oc casional floaters (chief complaint)bl ood pressure (chief complaint) Multiple defects of retina without detachment, bilateralRetinal detachment with single break, left eyeVitreous degeneration, bilateralLattice degeneration of retina, bilateralBilateral age-related nuclear cataracts Dec-0 7 5 Orgel Myra. [address], [address], [place], [place], [id number] , [place]. [phone] Referring Provider: Myra Olson, [address], [place], [address] . tel:[phone] [facility], [address] [place], [place], [facility], [place] [phone] DEVIKA Edge multiple defects of retina (chief complaint)no shruthi no vision changes (chief complaint)Bl ood Pressure: (chief complaint) Multiple defects of retina without detachment, bilateralRetinal detachment with single break, left eyeVitreous degeneration, bilateralLattice degeneration of retina, bilateralBilateral age-related nuclear cataracts 5 Maryellen Renteria. [address], [address], [place], [place], [id number] , [place]. [phone] Referring Provider: Myra Olson, [address], [place], [address] . tel:[phone] [facility], [address] [place], [place], [facility], [place] tel:[phone] A Eleonora Valeriowood multiple defects of retina (chief complaint)no shruthi no vision changes (chief complaint)Bl ood Pressure: (chief complaint) Multiple defects of retina without detachment, bilateralRetinal detachment with single break, left eyeLattice degeneration of retina, bilateralVitreous degeneration, bilateralBilateral age-related nuclear cataracts 5 Maryellen Renteria. [address], [place], [place], [id number] , [place]. [phone] Referring Provider: Myra Olson, [address], [place], [address] . tel:[phone] New Patient, High [facility], [address] [place], [place], [facility], [place] [phone] DEVIKA Edge possible retinal break/tear (chief complaint)2 occurences of white lights when she closes (chief complaint)Bl ood Pressure: (chief complaint) Bilateral age-related nuclear cataractsLattice degeneration of retina, bilateralMultiple defects of retina without detachment, bilateralRetinal detachment with single break, left eyeVitreous degeneration, bilateral Oct-2 5 Maryellen Myra. [address], [place], [place], [id number] , [place]. tel:[phone] Referring Provider: Jonah Duncan, [address] [place], [address]. tel:[phone] Family History Family Member Type Diagnosis Age At Onset Maternal grandfather Problem (finding) diabetes mellit type 2 Payers Payer name Insurance type Covered libertarian ID Authoriza tion(s) No Information Social History Type Description Quantity Date Captured Comments Alcohol Use Details No Caffeine Use Details No Tobacco Use Status No Information Smoking Status Never smoker Sex Female Vital Signs Date / Time: Height Weight BMI Pulse Rate Blood Pressure Temperature Respiratory Rate Body Surface Area Head Circumference Head Circ. Percentile Wt./Zach. Percentile BMI percentile Pulse Ox Inhaled Ox 9:33 AM 121/83 mm[Hg] Chief Complaint And Reason For Visit From encounter dated '04/18/2016 09:10'. treated retinal tears (chief complaint). Description: The 55 year old female presents for evaluation of treated retinal tears in both eyes. S/p laser treatment OD 05-14-16 and OS 15. denies vision changes (chief complaint). Description: The patient denies vision changes in the right eye and left eye since visit about 8 months ago . The symptom is constant. The patient denies flashes. Blood Pressure: (chief complaint). Description: Blood Pressure: 121/83 Reason For Referral Reason For Referral No Information History Of Present Illness Encounter Date Complaint History Of Prese nt Illness Blood Pressure: Blood Pressure: 121/83 denies vision changes The patien t denies vision changes in the right eye and left eye since visit about 8 months ago . The symptom is constant. The patient denies flashes. treated retinal tears The 55 yea r old female presents for evaluation of treated retinal tears in both eyes. S/p laser treatment OD 05-14-16 and OS 05-21-15. treated retinal tears The 54 Yea r old female presents for evaluation of treated retinal tears in the right eye and left eye. laser OD [id number] OS 05-21-15 stable vision The patient repo rts stable vision in the right eye and left eye. It started about 2 months ago . It affects both near and far vision. The symptom is constant. It occurs always. The condition is stable. In addition, the condition is associated with daily activity and chores. The patient denies change in vision. BP 1 44/83 History of Detachments The 54 ye ar old female presents for History of retinal Detachments in the left eye. blood pressure blood pressure 1 0473. occasional floaters The patient reports occasional large floaters in both eyes. Blood Pressure: Blood Pressure: 130/81 notes no vision changes The brittaney ent notes no vision changes in the right eye and left eye since last visit 1 week ago . It affects both near and far vision. The symptom is constant. It occurs when focusing. In addition, the condition is associated with daily activity and chores. The patient denies decreased vision, eye pain. multiple defects of retina The [age] Years old female presents for evaluation of multiple defects of retina in the right eye and left eye. s/p laser treatment 05-14-15 OD, 05-21-15 OS. Blood Pressure: Blood Pressure: 152/91 notes no vision changes The brittaney ent notes no vision changes in the right eye and left eye since 1 week ago . It affects both near and far vision. The symptom is constant. It occurs when focusing. In addition, the condition is associated with daily activity and chores. The patient denies decreased vision, flashes, floaters. multiple defects of retina The [age] Years old female presents for evaluation of multiple defects of retina in the right eye and left eye. s/p laser OD 05-14-15. 2 occurences of whit e lights when she closes The patient reports 2 occurences of white lights in the right eye when she closes her eyes at bedtime. It started about 2 days ago . The onset was sudden. VA not affected. The symptom is occasional. It occurs at night. The patient denies decreased vision. possible retinal break/tear The 54 year old female presents for evaluation of possible retinal break/tear in the right eye, temporal per Dr. Duncan. Blood Pressure: Blood Pressure: 136/74 Functional Status Date Functional Assessmen t No Information Instructions Date Instruction Additional Infor mation Return in Related to Multi ple defects of retina without detachment, bilateral Follow up - Return i n 1 year for follow up and OCT. 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 No new holes or tears was noted on the exam today. The need for additional treatment will be determined at future visits. The patient was instructed to limit activities and call immediately with any additional signs or symptoms of a retinal detachment. 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 R elated to Retinal detachment with single break, left eye Impression/Plan - See plan #1 Re lated to Vitreous degeneration, bilateral Impression/Plan - La ttice Degeneration was again noted upon examination today and explained to the patient. The patient was advised to call the office immediately with any signs or symptoms of retinal detachment. Related to Lattice degeneration of retina, bilateral Impression/Plan - Re gular follow up appointments with the patient's comprehensive eye doctor was again recommended, to monitor the patients cataract for progression. Referral for surgical intervention is not indicated at this time. Related to Bilateral age-related nuclear cataracts - See plan #1. Related to Retin al detachment with single break, left eye - See plan #1 Related to Vitre ous degeneration, bilateral - Regular follow up appointments with the patient's comprehensive eye doctor was again recommended, to monitor the patients cataract for progression. Referral for surgical intervention is not indicated at this time. Related to Bilateral age-related nuclear cataracts - Return in 6-[address] Bojorquez for follow up exam with OCT. 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 No new holes or tears was noted on the exam today. The need for additional treatment will be determined at future visits. The patient was instructed to limit activities and call immediately with any additional signs or symptoms of a retinal detachment. 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 The patient was advised to call the office immediately with any signs or symptoms of retinal detachment. Related to Lattice degeneration of retina, bilateral - See plan #1 Related to Vitre ous degeneration, bilateral - Lattice Degenerati on was again noted upon examination today and explained to the patient. The patient was advised to call the office immediately with any signs or symptoms of retinal detachment. Related to Lattice degeneration of retina, bilateral - Nicely treated tea rs were again noted on examination today and explained to the patient. No new holes or tears was noted on the exam today. The need for additional treatment will be determined at future visits. The patient was instructed to limit activities and call immediately with any additional signs or symptoms of a retinal detachment. 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 Related to Retin al detachment with single break, left eye - Return in [address] Bojorquez for follow up exam with OCT. 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 Referral for surgical intervention is not indicated at this time. Related to Bilateral age-related nuclear cataracts - Nicely treated tea rs were again noted on examination today and explained to the patient. No new holes or tears was noted on the exam today. The need for additional treatment will be determined at future visits. The patient was instructed to limit activities and call immediately with any additional signs or symptoms of a retinal detachment. 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 The patient was advised to call the office immediately with any signs or symptoms of retinal detachment. Related to Lattice degeneration of retina, bilateral - Regular follow up appointments with the patient's comprehensive eye doctor was again recommended, to monitor the patients cataract for progression. Referral for surgical intervention is not indicated at this time. Related to Bilateral age-related nuclear cataracts - See plan #1. Related to Retin al detachment with single break, left eye - See plan #1 Related to Vitre ous degeneration, bilateral - Return in 3-[address] Bojorquez for follow up exam with OCT. 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 Based on today's exam, Laser treatment was recommended OS to prevent the progression of a retinal detachment. The risks, benefits, and alternatives were discussed. The patient agreed to treatment. The laser photocoagulation was performed under topical anesthesia and the patient tolerated the procedure well. The need for additional treatment will be determined at future visits. The patient was instructed to limit activities and call immediately with any additional signs or symptoms of a retinal detachment. 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 Related to Retin al detachment with single break, left eye - Lattice Degenerati on was again noted upon examination today and explained to the patient. The patient was advised to call the office immediately with any signs or symptoms of retinal detachment. Related to Lattice degeneration of retina, bilateral - See plan #1 Related to Vitre ous degeneration, bilateral - Regular follow up appointments with the patient's comprehensive eye doctor was again recommended, to monitor the patients cataract for progression. Referral for surgical intervention is not indicated at this time. Related to Bilateral age-related nuclear cataracts - Return in [address] Bojorquez for post op exam. 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 Bojorquez for follow up exam and probable treatment OS. Related to Retinal detachment with single break, left eye Apr- - Posterior vitreous detachment with an associated tear was noted on examination today and explained to the patient. Based on today's exam Laser treatment was recommended to prevent the progression of a retinal detachment OD. The risks, benefits, and alternatives were discussed. The patient agreed to treatment. The laser photocoagulation was performed under topical anesthesia and the patient tolerated the procedure well. The need for additional treatment will be determined at future visits. The patient was instructed to limit activities and call immediately with any additional signs or symptoms of a retinal detachment. 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 Referral for surgical intervention is not indicated at this time. Related to Bilateral age-related nuclear cataracts - See above plan. Related to Ret inal detachment with single break, left eye Apr- - Lattice Degenerati on was noted upon examination today and explained to the patient. The patient was advised to call the office immediately with any signs or symptoms of retinal detachment. 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 Code: H33.333. Side: OU. Conditions: nicely treated OU assessment Retinal detachment with single b reak, left eye Apr- impression Diagnosis: Retinal d etachment with single break, left eye. Code: H33.012. Side: OS. Conditions: nicely treated Apr- assessment Vitreous degeneration, bilateral impression Diagnosis: Vitreous degeneration, bilateral. Code: H43.813. Side: OU. Conditions: nicely treated tears associated with the PVD assessment Lattice degeneration of retina, bilateral impression Diagnosis: Lattice d egeneration of retina, bilateral. Code: H35.413. Side: OU. Conditions: mild Oct- assessment Bilateral age-related nuclear ca taracts impression Diagnosis: Bilateral age-related nuclear cataracts. Code: H25.13. Side: OU. Conditions: progressive Oct-03-2016 Patient Care Teams Name Effective Dates (start - stop) Status Members No Information
--- OUTSIDE RECORDS SUMMARY | 2022-04-15 10:15 | XMS_ITS | Continuity of Care Document ---
Author Organization [facility] Address [address] [place] [address] Phone Care Team Providers Care Back Shoe Worker Name Role Phone Terry Banuelos Unavailable Unavailable Procedures Procedure Date IMMUNIZATION ADMIN FLU VAC NO PRSV 4 CHANDRAKANT 3 YRS+ Advance Directives Directive Yes / No Effective Date File Name No Information Encounters Encounter Description Practice Location Reason(s) For Visit Diagnoses Date Provider Providers Copied on Encounter [facility], [address], [place], [id number], [place] tel:[phone] [facility] No Information Jessi Berumen. [address], [place], [id number], [place]. tel:[phone] Family History Family Member Type Diagnosis Age At Onset No Information Immunizations Vaccine Date Status Comments Flulaval/ Fluarix administered Source: Ne w Immunization Record Payers Payer name Insurance type Covered republican ID Authorrashada tiusha(s) [facility]/[employer] PPS CI [id number] [facility] [facility] PPS CI [id number] Social History Type Description Quantity Date Captured Comments Alcohol Use Details Unknown Caffeine Use Details Unknown Tobacco Use Status No Information Smoking Status No Information Sex Female Sexual Orientation Don't Know Gender Identity Female Chief Complaint And Reason For Visit No Information Reason For Referral Reason For Referral No Information Plan Of Treatment Date Type Action Status Goal PRAPARE ASSESSMENT. Due on S due Goal Colonoscopy. Due on due Goal Mammogram. Due on due Goal Lipid panel. Due on due Goal Tdap. Due on due Goal Depression screening. Due on due Goal FOBT. Due on due Goal Zoster vaccine (1st). Due on due Goal Influenza vaccine. Due on due History Of Present Illness Encounter Date Complaint History Of Prese nt Illness No Information Functional Status Date Functional Assessmen t No Information Instructions Date Instruction Additional Infor mation No Information Assessments Type Assessment Date No Information Patient Care Teams Name Effective Dates (start - stop) Status Members No Information
--- OUTSIDE RECORDS SUMMARY | 2025-01-21 10:30 | XMS_ITS ---
Author Organization [facility] Address [address] [place] [address] Care Team Providers Care Resaw Carriage Operator Name Role Phone Sabas Wagner MD Primary Care Provider [phone] Deja Mendez Unavailable [phone] Stevie Fajardo MD Unavailable Active Problems Problem Noted Date Diagnosed Date Abnormal mammogram of left breast 08/29/2024 Massive hemoptysis 03/27/2024 Hemoptysis 03/14/2024 Malignant neoplasm of upper- outer quadrant of left breast in female, estrogen receptor positive 05/25/2023 BMI 22.0-22.9, adult 05/24/2023 05/24/2023 Breast cancer, left 05/24/2023 05/24/2023 Frequent episodes of pneumonia 05/24/2023 1 07/24/2022 Personal history of bronchiectasis 05/24/2023 05/24/2023 Bronchiectasis 09/14/2016 05/24/2023 Fungal pneumonia 09/14/2016 05/24/2023 Multiple sclerosis 08/31/2010 05/24/2023 Pulmonary infiltrates 08/31/2010 05/24/2023 Pulmonary nodules 08/31/2010 05/24/2023 Current Treatment and Therapy Plans No current plan information found. Past Treatment and Therapy Plans No past plan information found. Current Radiation Episodes * 3D WOUND CARE NURSE: Left Breast with lymph nodesOverview* First Treatment Date Latest Treatment Date Treatment Site Technique Goal Episode Provider 06/14/2023 07/28/2023 Left Breast with lymph nodes 3D WOUND CARE NURSE Curative Deja Mendez * Linked Problems Malignant neoplasm of upper- outer quadrant of left breast in female, estrogen receptor positive Treatment Courses* Course 1 06/14/2023 - 07/28/2023 Treatment Period Fraction Dose Fractions Total Dose Plans Planned LBreastBoost 07/24/2023 - 07/28/2023 200 cGy 5 / 5 1,000 cGy LBrst&LNsDIBH 06/14/2023 - 07/28/2023 200 cGy 25 / 25 5,000 cGy Reference Points Delivered L Breast Bst 07/24/2023 - 07/28/2023 1,000 cGy L Breast and LNs 06/14/2023 - 07/28/2023 5,000 cGy
--- OUTSIDE RECORDS SUMMARY | 2025-01-21 10:30 | XMS_ITS | Encounter Summary ---
Author Organization [facility] Address [address] [place] [address] Care Team Providers Care Training Director Name Role Phone Sabas Wagner MD Primary Care Provider [phone] Kem Block MD Unavailable [phone] Janell Reynolds MD Unavailable [phone] Deangelo Morales MD Unavailable [phone] Source Comments In the event this information is protected by the Federal Confidentiality of Alcohol and Drug AbusePatient Records regulations: The Federal rules restrict any use of the information to criminally investigate or prosecute any alcohol or drug abuse patient.[facility] Encounter Details Date Type Department Care Team (Latest Contact Info) Description 10/09/2024 [place] [address] Provider, Ccf Please complete Cardiovascular Surgery Questionnaires Social History Tobacco Use Types Packs/Day Years Used Date Smoking Tobacco: Never Smokeless Tobacco: Never Alcohol Use Standard Drinks/Week Comments No 0 (1 standard drink = 0.6 oz pur e alcohol) PHQ-2 Answer Date Recorded PHQ-2 score 0 02/19/2024 Area Deprivation Index Answer Date Ariel rded National Score (1-100), lower number is lower ri sk 53 02/20/2024 State Score (1-10), lower number is lower risk 3 02/20/2024 Data from: https://www.neighborhoodatlas.[facility]/. Last address used for calculation [id number] 02/20/2024 Comments No Sex and Gender Information Value Date Recorded Sex Assigned at Not on file Legal Sex Female 7:34 AM EST Gender Identity Not on file Sexual Orientation Not on file documented as of this encounter Functional Status * Are you deaf or do you have serious difficulty hearing? Answer Date of Assessment Author No 09/14/2024 1:11 PM Anayeli Coy RN * Are you blind or do you have serious difficulty seeing, even when wearing glasses? Answer Date of Assessment Author No 09/14/2024 1:11 PM Anayeli Coy RN * Do you have serious difficulty walking or climbing stairs? Answer Date of Assessment Author No 09/14/2024 1:11 PM Anayeli Coy RN * Do you have difficulty dressing or bathing? Answer Date of Assessment Author No 09/14/2024 1:11 PM Anayeli Coy RN * Because of a physical, mental, or emotional condition, do you have difficulty doing errands alone such as visiting a doctor's office or shopping? Answer Date of Assessment Author No 09/14/2024 1:11 PM Anayeli Coy RN documented as of this encounter Mental Status * Because of a physical, mental, or emotional condition, do you have serious difficulty concentrating, remembering, or making decisions? Answer Entry Date Author No 09/14/2024 1:11 PM Anayeli Coy RN documented in this encounter Plan of Treatment Upcoming Encounters Date Type Department Care Team (Late st Contact Info) Description 06/09/2025 7:15 AM EST Procedure Cardiology [address] [place] [address] est imaging 6 mo f/u per [facility] order 06/09/2025 7:45 AM EST Office Visit Cardiology [address] [id number] Deangelo Morales MD [address] [id number] est imaging 6 mo f/u per [facility] order documented as of this encounter Goals Goal Patient Goal Type Associated Problems Recent Progress Patient-Stated? Author Blood Pressure < 140/90 Blood Pressure 118/80( 025 10:57 AM EDT) No Janell Reynolds MD documented as of this encounter Visit Diagnoses Not on filedocumented in this encounter Care Teams Training Director Relationship Specialty Start Date End Date Sabas Wagner MD PCP - General Family Medicine 09/09/10 Kem Block MD [address] [place] [address] Referring Cardiology 06/04/24 Janell Reynolds MD [address] [place] [address] Surgeon Cardiac Surg 06/05/24 Deangelo Morales MD [address] [place] [address] Primary Staff Physician Cardiology 07/11/24 documented as of this encounter
--- OUTSIDE RECORDS SUMMARY | 2025-01-21 10:30 | XMS_ITS | Encounter Summary ---
Author Organization [facility] Address [address] [place] [address] Care Team Providers Care Carton Forming Machine Operator Name Role Phone Sabas Wagner MD Primary Care Provider [phone] Kem Block MD Unavailable [phone] Janell Reynolds MD Unavailable [phone] Deangelo Morales MD Unavailable [phone] Source Comments In the event this information is protected by the Federal Confidentiality of Alcohol and Drug AbusePatient Records regulations: The Federal rules restrict any use of the information to criminally investigate or prosecute any alcohol or drug abuse patient.[facility] Encounter Details Date Type Department Care Team (Latest Contact Info) Description 12/08/2024 [place] [address] Provider, Ccf Please complete Cardiovascular Surgery Questionnaires [...] is lower risk 3 02/20/2024 Data from: https://www.neighborhoodatlas.[facility]/. Last address used for calculation [id number] 02/20/2024 Comments No Sex and [...] 06/09/2025 7:15 AM EST Procedure Cardiology [address] [place] [address] est imaging 6 mo f/u per [facility] order 06/09/2025 7:45 AM EST Office Visit Cardiology [address] [id number] Deangelo Morales MD [address] [id number] est imaging 6 mo f/u per [facility] order documented as of this encounter Goals Goal Patient Goal Type Associated Problems Recent Progress Patient-Stated? Author Blood Pressure < 140/90 Blood Pressure 118/80( 025 10:57 AM EDT) No Janell Reynolds MD documented as of this encounter Visit Diagnoses Not on filedocumented in this encounter Care Teams Carton Forming Machine Operator Relationship Specialty Start Date End Date Sabas Wagner MD PCP - General Family Medicine 09/09/10 Kem Blokc MD [address] [place] [address] Referring Cardiology 06/04/24 Janell Reynolds MD [address] [place] [address] Surgeon Cardiac Surg 06/05/24 Deangelo Morales MD [address] [place] [address] Primary Staff Physician Cardiology 07/11/24 documented as of this encounter
--- OUTSIDE RECORDS SUMMARY | 2025-01-21 10:30 | XMS_ITS | Clinical Summary ---
Author Organization [facility] Address [address] [place] [address] Care Team Providers Care Offset Label Rewinder Name Role Phone Sabas Wagner MD Primary Care Provider [phone] Deja Mendez Unavailable [phone] Stevie Fajardo MD Unavailable Allergies Active Allergy Reactions Criticality Noted Date Comments Warfarin Other High 07/11/2024 Due to hemorrhaging ALL BLOOD THINNERS Medications sodium chloride 0.9 % nebulizer solution Take 3 mL by nebulization if needed in the morning, at noon, and at bedtime. 3 Active letrozole (Femara) 2.5 mg chemo tablet Take 1 tablet by mouth 1 (one) time each day 3 Active latanoprost (Xalatan) 0.005 % ophthalmic solution Administer 1 drop into both eyes at bedtime. Active calcium 500 mg calcium (1,250 mg) tablet Take 1 tablet by mouth with breakfast and with evening meal. Active cholecalciferol (Vitamin D3) 25 MCG (1000 units) tablet Take 2,000 Units by mouth in the morning. Active alendronate (Fosamax) 70 mg tablet 1 TAB EVERY 7 DAYS WITH 6-8OZ OF PLAIN WATER AT LEAST 30 MINS BEFORE FIRST FOOD/DRINK/MEDIC ATION 4 Active metoprolol tartrate (Lopressor) 25 mg tabletIndicatio ns:Sinus tachycardia Take 0.5 tablets (12.5 mg) by mouth two times daily. 30 tablet 4 Active calcium carbonate (Os-Kashif) 625 mg (250 MG CA) split tablet Take 1 tablet by mouth in the morning. Active Active Problems Problem Noted Date Diagnosed Date [...] infiltrates 08/31/2010 05/24/2023 Pulmonary nodules 08/31/2010 05/24/2023 Encounters Date Type Department Care Team Description 11/06/2024 2:59 PM EDT - 11/06/2024 11:59 PM EDT Hospital Encounter [facility] Marilyn Bullard [facility] [address] [place] [address] Deja Mendez Malignant neoplasm of upper-outer quadrant of left breast in female, estrogen receptor positive (CMS/HCC) (Primary Dx) Discharge Disposition: Home or Self Care (01) from Last 3 Months Family History Medical History Relation Name Comments Clotting disorder Father Clotting disorder Mother Relation Name Status Comments Father Mother Social History Tobacco Use Types Packs/Day Years Used Date Smoking Tobacco: Never Smokeless Tobacco: Never Alcohol Use Standard Drinks/Week Comments Never 0 (1 standard drink = 0.6 oz pur e alcohol) [facility] Utilities Answer Date Recorded In the past 12 months has e electric, gas, oil, or water company threatened to shut off services in your home? Patient unable to answer 03/27/2024 Humiliation, Afraid, Rape, a nd Kick questionnaire Answer Date Recorded Within the last year, have y ou been afraid of your partner or ex-partner? Patient unable to answer 03/27/2024 Emotionally Abused Not on file 03/27/2024 Physically Abused Not on file 03/27/2024 Sexually Abused Not on file 03/27/2024 Overall Financial Resource Strain (CARDIA) Answe r Date Recorded How hard is it for you to pa y for the very basics like food, housing, medical care, and heating? Patient unable to answer 03/27/2024 PHQ-2 Answer Date Recorded Patient Health Questionnaire-2 Score 0 05/02/2024 Transportation Answer Date Recorded In the past 12 months, has l ack of transportation kept you from medical appointments or from getting medications? Patient unable to answer 03/27/2024 Lack of Transportation (Non-Medical) Not on file 03/27/2024 Housing Stability Vital Sign Answer Juancarlos e Recorded Unable to Pay for Housing in the Last Year Not o n file 03/27/2024 Number of Places Lived in the Last Year Not on f ile 03/27/2024 In the last 12 months, was t here a time when you did not have a steady place to sleep or slept in a chcf (including now)? Patient unable to answer 03/27/2024 Hunger Vital Sign Answer Date Recorded Within the past 12 months, y ou worried that your food would run out before you got the money to buy more. Patient unable to answer 03/27/2024 Ran Out of Food in the Last Year Not on file 03/27/2024 Comments No Sex and Gender Information Value Date Recorded Sex Assigned at Not on file Legal Sex Female 12:36 AM EDT Gender Identity Not on file Sexual Orientation Not on file Last Filed Vital Signs Vital Sign Reading Time Taken Comments Blood Pressure 141/91 11/06/2024 3:09 PM EDT Pulse 68 11/06/2024 3:09 PM EDT Temperature 36.3 C (97.4 F) 11/06/2024 3:09 PM EDT Respiratory Rate 20 08/06/2024 3:55 PM EST Oxygen Saturation 99% 11/06/2024 3:09 PM EDT Inhaled Oxygen Concentration - - Weight 61 kg (134 lb 8 oz) 11/06/2024 3:09 PM ED T Height 165.1 cm (5' 5 ) 08/29/2024 1:51 PM EST Body Mass Index 22.38 08/29/2024 1:51 PM EST Plan of Treatment Upcoming Encounters Date Type Department Care Team (Late st Contact Info) Description 11/03/2025 2:30 PM EDT Appointment [facility] [address] [place] [address] Deja Mendez [address] [place] [address] Health Maintenance Due Date Last Done Comments CT Colonography 1958 Colonoscopy 1958 Colorectal Cancer Screening 1958 FIT-DNA 1958 FIT 1958 FOBT 1958 Medicare Annual Wellness (AWV) 1958 Sigmoidoscopy 1958 COVID-19 Vaccine (3 - Pfizer risk series) 11/28/2020 10/31/2020, 10/10/2020 Influenza Vaccine (#1) 2025 , 04/15/2022, 05/02/2021, Additional history exists Depression Screening 05/02/2025 05/02/2024 Fall Risk Screening 05/02/2025 05/02/2024 Adult Tetanus 11/28/2027 11/27/2017 Pneumococcal Vaccine: 50+ Years Completed 06/30/2023, 07/14/2014, 12/01/2011 Mammogram Discontinued 03/01/2024, 01/05/2023 Zoster Vaccines Completed 10/03/2024, 06/06/2024 HIB Vaccines Aged Out No longer eligi ble based on patient's age to complete this topic HPV Vaccines Aged Out No longer eligi ble based on patient's age to complete this topic IPV Vaccines Aged Out No longer eligi ble based on patient's age to complete this topic Meningococcal B Vaccine Aged Out No l onger eligible based on patient's age to complete this topic Meningococcal Vaccine Aged Out No rossy dilip eligible based on patient's age to complete this topic Rotavirus Vaccines Aged Out No longer eligible based on patient's age to complete this topic Insurance MEDICARE GENERIC OTHER MEDICARE Advance Directives * Full Code (Latest Code Status on File) Date Activated Date Inactivated Comments 03/27/2024 2:21 AM 04/01/2024 7:56 PM Care Teams Offset Label Rewinder Relationship Specialty Start Date End Date Sabas Wagner MD [address] [facility] [address] [address] PCP - General 05/03/23 Deja Mendez [address] [place] [address] Radiation Oncology 05/24/23 Stevie Fajardo MD [address] [place] [id number] Pulmonary Disease 05/25/23 Sridhar [place] [address] Referring Physician Medical Oncology 05/25/23
--- OUTSIDE RECORDS SUMMARY | 2025-01-21 10:30 | XMS_ITS | Clinical Summary ---
Author Organization [facility] Address [address] [place] [address] Phone Care Team Providers Care Tableau Lead Name Role Phone Unavailable Primary Care Provider Unavailabl e Social History Tobacco Use Types Packs/Day Years Used Date Smoking Tobacco: Never Assessed Comments Unknown Sex and Gender Information Value Date Recorded Sex Assigned at Not on file Legal Sex Female 7:38 PM EDT Gender Identity Not on file Sexual Orientation Not on file Plan of Treatment Health Maintenance Due Date Last Done Comments Bone Density Scan 1958 CT Colonography 1958 Colonoscopy 1958 Colorectal Cancer Screening 1958 FIT-DNA (Cologuard) 1958 FIT 1958 Lipid Panel 1958 Sigmoidoscopy 1958 Yearly Adult Physical 1958 MMR Vaccines (1 of 1 - Stand esa series) 11/11/1959 Hepatitis C Screening 1976 DTaP/Tdap/Td Vaccines (1 - Tdap) 1980 Mammogram 1998 Pneumococcal Vaccine (1 of 1 - PCV) 2008 Zoster Vaccines (1 of 2) 2008 COVID-19 Vaccine (1 - 2023-2 5 season) 2024 Influenza Vaccine (#1) 2025 RSV High Risk: (Elderly (60+ ) or Population) (1 - 1-dose 75+ series) 2033 HIB Vaccines Aged Out No longer eligi ble based on patient's age to complete this topic HPV Vaccines (No Doses Required) Completed Hepatitis A Vaccines Aged Out No long er eligible based on patient's age to complete this topic Hepatitis B Vaccines Aged Out No long er eligible based on patient's age to complete this topic IPV Vaccines Aged Out No longer eligi ble based on patient's age to complete this topic Meningococcal Vaccine Aged Out No rossy dilip eligible based on patient's age to complete this topic Rotavirus Vaccines Aged Out No longer eligible based on patient's age to complete this topic
--- OUTSIDE RECORDS SUMMARY | 2025-01-21 10:30 | XMS_ITS | Clinical Summary ---
Author Organization [facility] Address [address] [place] [address] Care Team Providers Care Tankage Grinder Name Role Phone Sabas Wagner MD Primary Care Provider [phone] Allergies No known active allergies Medications latanoprost (Xalatan) 0.005 % ophthalmic solution Administer 1 drop into both eyes at bedtime. Active cholecalciferol (Vitamin D-3) 50 MCG (2000 UT) tablet Take 2,000 Units by mouth in the morning. Active alendronate (Fosamax) 70 MG tablet TAKE 1 TABLET BY MOUTH EVERY 7 DAYS WITH 6-8 OZ WATER 30 MINUTES BEFORE ANY FOOD DRINK OR MEDICATION Active calcium carbonate (Os-Kashif) 1250 (500 Ca) MG tablet Take 1 tablet by mouth in the morning. Active metoprolol tartrate (Lopressor) 25 MG tablet Take 12.5 mg by mouth in the morning and 12.5 mg in the evening. 4 Active letrozole (Femara) 2.5 MG chemo tablet Take 2.5 mg by mouth Daily. 4 Active levoFLOXacin (Levaquin) 750 MG tablet 4 Active Family History Medical History Relation Name Comments No Known Problems Brother Clotting disorder Father Heart disease Father Diabetes Maternal Grandfather BUD Clotting disorder Mother Heart disease Mother No Known Problems Paternal Grandfather No Known Problems Paternal Grandmother Relation Name Status Comments Brother Father Maternal Grandfather BUD Maternal Grandmother Mother Paternal Grandfather Paternal Grandmother Son Alive 3 sons Social History Tobacco Use Types Packs/Day Years Used Date Smoking Tobacco: Never Smokeless Tobacco: Never Tobacco Cessation:Counseling Given: Not Answered Alcohol Use Standard Drinks/Week Comments Never 0 (1 standard drink = 0.6 oz pur e alcohol) Caffeine intake: none Comments No Sex and Gender Information Value Date Recorded Sex Assigned at Female 12/27/2022 1:44 PM EDT Legal Sex Female 6:40 PM EDT Gender Identity Female 12/27/2022 1:44 PM EDT Sexual Orientation Not on file Last Filed Vital Signs Vital Sign Reading Time Taken Comments Blood Pressure 120/70 04/18/2024 1:30 PM EDT Pulse - - Temperature - - Respiratory Rate - - Oxygen Saturation - - Inhaled Oxygen Concentration - - Weight 53.1 kg (117 lb) 04/18/2024 1:30 PM EDT Height 165.1 cm (5' 5 ) 04/18/2024 1:30 PM EDT Body Mass Index 19.47 04/18/2024 1:30 PM EDT Plan of Treatment Upcoming Encounters Date Type Department Care Team (Late st Contact Info) Description 03/04/2025 10:30 AM EDT Ancillary Procedure [facility] [address] [place] [address] 04/30/2025 3:00 PM EDT Office Visit [facility] [address] [place] [address] Fernanda Mcgovern, DO [address] [place] [address] Health Maintenance Due Date Last Done Comments CT Colonography 1958 Colonoscopy 1958 Colorectal Cancer Screening 1958 FIT-DNA 1958 FIT 1958 FOBT 1958 Sigmoidoscopy 1958 Mammogram 03/01/2025 03/01/2024, 12/16, 12/29/2021, Additional history exists Influenza Vaccine (#1) 2025 , 04/15/2022, 05/02/2021, Additional history exists Cervical Cancer Screening Discontinued HPV/Cotest Discontinued 01/11/2023, 11/15, 12/03/2020, Additional history exists Pap Smear Discontinued 01/11/2023 Pneumococcal Vaccine: 65+ Years Completed 06/30/2023, 07/14/2014, 12/01/2011 Procedures Procedure Name Priority Date/Time Associated Diagnosis Comments BI MAMMOGRAM SCREENING TOMOSYNTHESIS BILATERAL Routine 03/01/2024 3:07 PM EDT Encounter for screening mammogram for breast cancer THINPREP TIS PAP W/REFL HPV MRNA E6/E7 Routine 01/11/2023 2:39 PM EDT Screening for malignant neoplasm of cervix from Last 3 Months or Most Recently Relevant to Health Maintenance Results * Bilateral screening mammogram with tomosynthesis (03/01/2024 3:07 PM EDT) Anatomical Region Laterality Modality Breast Bilateral Mammography 03/04/2024 12:2 0 PM EDT Impressions 03/04/2024 1:56 PM EDT BIRADS 2 - Benign Follow-up: Routine Screening Mamm Board Certified Radiologists. Accredited by the ACR and FDA. MAMMOGRAPHY IS VERY IMPORTANT TO YOUR HEALTH. THE [employer] GUIDELINES RECOMMEND THAT WOMEN 40 [...] BY: ELECTRONICALLY SIGNED BY: Juma Garcia MD Narrative 03/04/2024 1:56 PM EDT EXAMINATION: BI MAMMOGRAM SCREENING TOMOSYNTHESIS BILATERAL CLINICAL HISTORY:screening COMPARISON: January 05, 2023. RESULT: Density: There are scattered areas of fibroglandular density Overall appearance is stable. Left axillary tail surgical clips. There is no suspicious mass, asymmetry, architectural distortion, or calcification Procedure Note Juma Garcia MD - 03/04/2024 EXAMINATION: BI MAMMOGRAM SCREENING TOMOSYNTHESIS BILATERAL CLINICAL HISTORY:screening COMPARISON: January 05, 2023. RESULT: Density: There are scattered areas of fibroglandular density Overall appearance is stable. Left axillary tail surgical clips. There is no suspicious mass, asymmetry, architectural distortion, orcalcification IMPRESSION: BIRADS 2 - Benign Follow-up: Routine Screening Mamm Board Certified Radiologists. Accredited by the ACR and FDA. MAMMOGRAPHY IS VERY IMPORTANT TO YOUR HEALTH. THE [employer] CAN[employer] SOCIETYGUIDELINES RECOMMEND THAT WOMEN 40 YEARS OF AGE AND OLDER SHOULD HAVE AMAMMOGRAM EVERY YEAR. A REMINDER LETTER WILL BE SENT AT THE APPROPRIATE TIME. THIS FACILITYUTILIZES A REMINDER SYSTEM TO ENSURE ALL PATIENTS RECEIVE REMINDERNOTIFICATIONS AT THE APPROPRIATE TIME BASED ON THE RECOMMENDATIONS OF THISEXAM. THIS INCLUDES REMINDERS FOR ROUTINE SCREENING MAMMOGRAMS, DIAGNOSTICMAMMOGRAMS IN WHICH THE PATIENT IS ASKED TO RETURN FOR ADDITIONAL VIEWS,OR OTHER BREAST IMAGING INTERVENTIONS WHEN APPROPRIATE. THE PATIENT WILLBE PLACED IN THE APPROPRIATE REMINDER SYSTEM INCLUDING A REMINDER AT THEAPPROPRIATE TIME FOR ANY PENDING ADDITIONAL VIEWS. TRANSCRIBED BY: ELECTRONICALLY SIGNED BY: Juma Garcia MD us Fernanda Mcgovern DO IMG BI PROCEDURES Final Res ult * THINPREP TIS PAP W/REFL HPV MRNA E6/E7 (01/11/2023 2:39 PM EDT) CLINICAL INFORMATION [facility] Comment:Routine exam LMP [facility] Comment:TISH PREV. PAP [facility] Comment:NONE GIVEN PREV. BX [facility] Comment:NONE GIVEN SOURCE [facility] Comment:Cervix, Endocervix STATEMENT OF ADEQUACY [facility] Comment: Satisfactory for evaluation. Endocervical/transformation zone component present. INTERPRETATION/RESUL T [facility] Comment:Negative for intraep ithelial lesion or malignancy. CHIN STRAP SEWER [facility] Comment: G, MICHAEL(ASCP) CT screening location: [employer] [place], [address] [place] [address], [place] [address]. (ALWAYS MESSAGE) [facility] Comment: EXPLANATORY NOTE: The Pap is a screening test for cervical cancer. It is not a diagnostic test and is subject to false negative and false positive results. It is most reliable when a satisfactory sample, regularly obtained, is submitted with relevant clinical findings and history, and when the Pap result is evaluated along with historic and current clinical information. Other 01/11/2023 2:39 PM EDT 01/12/2023 3:44 AM EDT Narrative Resulting Agency Comment Performing Organization Information Site ID: [id number] Name: [facility] Address: [address] [place] [address] Director: Nico Nixon MD Fernanda Mcgovern DO LAB CYTOLOGY ORDERABLES Fin al Result [facility] from Last 3 Months or Most Recently Relevant to Health Maintenance Insurance MEDICARE GENERIC COMMERCIAL Care Teams Tankage Grinder Relationship Specialty Start Date End Date Sabas Wagner MD PCP - General Family Medicine 12/28/22
--- OUTSIDE RECORDS SUMMARY | 2025-01-21 10:30 | XMS_ITS | Encounter Summary ---
Author Organization [facility] Address [address] [place] [address] Care Team Providers Care Court Recorder Name Role Phone Sabas Wagner MD Primary Care Provider [phone] Kem Block MD Unavailable [phone] Janell Reynolds MD Unavailable [phone] Deangelo Morales MD Unavailable [phone] Source Comments In the event this information is protected by the Federal Confidentiality of Alcohol and Drug AbusePatient Records regulations: The Federal rules restrict any use of the information to criminally investigate or prosecute any alcohol or drug abuse patient.[facility] Encounter Details Date Type Department Care Team (Late st Contact Info) Description 08/15/2024 Patient Msg Cardiothoracic [address] [place], [place] [id number] Provider, [facility] Please complete your Cardiac Surgery Education Social History Tobacco Use Types Packs/Day Years [...] is lower risk 3 02/20/2024 Data from: https://www.neighborhoodatlas.medicine.[facility].edu/. Last address used for calculation [address] [address] 02/20/2024 Comments No Sex and Gender Information Value Date Recorded Sex Assigned at Not on file Legal Sex Female 7:34 AM EST Gender Identity Not on file Sexual Orientation Not on file documented as of this encounter Functional Status * Are you deaf or do you have serious difficulty hearing? Answer Date of Assessment Author No 10/13/2014 8:26 AM EDT Teri Lora Ma * Are you blind or do you have serious difficulty seeing, even when wearing glasses? Answer Date of Assessment Author No 10/13/2014 8:26 AM EDT Teri Lora Ma * Do you have serious difficulty walking or climbing stairs? Answer Date of Assessment Author No 10/13/2014 8:26 AM EDT Teri Lora Ma * Do you have difficulty dressing or bathing? Answer Date of Assessment Author No 10/13/2014 8:26 AM EDT Teri Lora Ma * Because of a physical, mental, or emotional condition, do you have difficulty doing errands alone such as visiting a doctor's office or shopping? Answer Date of Assessment Author No 10/13/2014 8:26 AM EDT Teri Lora Ma documented as of this encounter Mental Status * Because of a physical, mental, or emotional condition, do you have serious difficulty concentrating, remembering, or making decisions? Answer Entry Date Author No 10/13/2014 8:26 AM EDT Teri Lora Ma documented in this encounter Plan of Treatment Upcoming Encounters Date Type Department Care Team (Late st Contact Info) Description 06/09/2025 7:15 AM EST Procedure Cardiology [address] [place] [address] est imaging 6 mo f/u per HVI order 06/09/2025 7:45 AM EST Office Visit Cardiology [address] [id number] Deangelo Morales MD [address] [id number] est imaging 6 mo f/u per HVI order documented as of this encounter Goals Goal Patient Goal Type Associated Problems Recent Progress Patient-Stated? Author Blood Pressure < 140/90 Blood Pressure 118/80( 025 10:57 AM EDT) No Janell Reynolds MD documented as of this encounter Visit Diagnoses Not on filedocumented in this encounter Care Teams Court Recorder Relationship Specialty Start Date End Date Sabas Wagner MD PCP - General Family Medicine 09/09/10 Kem Block MD [address] [place] [address] Referring Cardiology 06/04/24 Janell Reynolds MD [address] [place] [address] Surgeon Cardiac Surg 06/05/24 Deangelo Morales MD [address] [place] [address] Primary Staff Physician Cardiology 07/11/24 documented as of this encounter
--- OUTSIDE RECORDS SUMMARY | 2025-01-21 10:32 | XMS_ITS | Encounter Summary ---
Author Organization [facility] Address [address] [place] [address] Care Team Providers Care Ssis Ssrs Developer Name Role Phone Sabas Wagner MD Primary Care Provider [phone] Encounter Details Date Type Department Care Team (Late Contact Info) Description 12/13/2022 Abstract [facility] [address] [place] [address] Fernanda Mcgovern, DO [address] [facility] [address] [place] [address] Social History Tobacco Use Types Packs/Day Years Used Date Smoking Tobacco: Never Alcohol Use Standard Drinks/Week Comments Never 0 (1 standard drink = 0.6 oz pur e alcohol) Caffeine intake: none Comments Unknown Sex and Gender Information Value Date Recorded Sex Assigned at Female 12/27/2022 1:44 PM EDT Legal Sex Female 6:40 PM EDT Gender Identity Female 12/27/2022 1:44 PM EDT Sexual Orientation Not on file documented as of this encounter Plan of Treatment Upcoming Encounters Date Type Department Care Team (Late Contact Info) Description 03/04/2025 10:30 AM EDT Ancillary Procedure [facility] [place] [address] [place] [address] 04/30/2025 3:00 PM EDT Office Visit [facility] [address] [facility] [address] [place] [address] Fernanda Mcgovern, DO [address] [place] [address] documented as of this encounter Visit Diagnoses Not on filedocumented in this encounter Care Teams Ssis Ssrs Developer Relationship Specialty Start Date End Date Sabas Wagner MD PCP - General Family Medicine 12/28/22 documented as of this encounter
== END 2025-01-21 10:28 | disposition home or self-care (01) ==
LOC: LAB 10:27
PROVIDERS: PCP Family Medicine; Visit Provider Family Medicine
DX: R05.9 Cough, unspecified (principal)
CPT/HCPCS: 36415; 87070; 87116; 87205; 87206

== ENCOUNTER 2025-01-22 08:55 | Outpatient (REF) | payer MEDICARE, OTHER, SELFPAY ==
--- OUTSIDE RECORDS SUMMARY | 2025-01-23 08:59 | XMS_ITS | Clinical Summary ---
Author Organization [facility] Address [address] [place] [id number] Care Team Providers Care Spinner Frame Name Role Phone Sabas Wagner MD Primary Care Provider [phone] Kem Block MD Unavailable [phone] Janell Reynolds MD Unavailable [phone] Deangelo Morales MD Unavailable [phone] Allergies Active Allergy Reactions Criticality Noted Date Comments Apixaban Other: See Comments High 11/15/2024 pulmonary hemorrhage Warfarin Other: See Comments High 07/11/2024 Due to hemorrhaging ALL BLOOD THINNERS Medications Nebulizer and Compressor For Neb deviIndications:B ronchiectasis without complication (HCC),Chronic cough 1 Device as needed. Use as directed. 1 Device 7 Active latanoprost (XALATAN) 0.005 % ophthalmic solution Use 1 Drop in both eyes daily at bedtime. Active cholecalciferol (VITAMIN D-3) 2,000 unit tablet Take 2,000 Units by mouth once daily. Active albuterol (PROVENTIL) 2.5 mg /3 mL (0.083 %) nebulizer solutionIndicatio ns:Bronchiectasis without complication (HCC),Chronic cough Use 3 mL via nebulizer three times daily as needed. Inhale over 5-15 minutes 120 Vial 5 0 Active calcium carbonate (OS-TONY 500) 500 mg calcium (1,250 mg) tablet Take 1 tablet by mouth once daily. Active letrozole (FEMARA) 2.5 mg tablet Take 2.5 mg by mouth once daily. 4 Active sodium chloride 0.9 % nebulizer solution Use 3 mL via nebulizer as needed. Active alendronate (FOSAMAX) 70 mg tablet Take 70 mg by mouth one time a week. Active metoprolol tartrate, short acting, (LOPRESSOR) 25 mg tablet Take 1/2 tablet by mouth every 12 hours. 90 tablet 09/14/2024 3:05 PM EST 5 Active MULTIVITAMIN-FERR OUS FUMARATE-FOLIC ACID 18 MG-400 MCG TABLET Take 1 tablet by mouth daily with breakfast. 30 tablet 2 5 02/14/20 25 Active Active Problems Patient Care Coordination No te Formatting of this note migh t be different from the original. Indication for Surgery: Left atrial mass Preop LVEF: 55% RVF: Normal. RVSP 41 mmHg. neg shunt. small pc EKG: NSR, LVH Cath: nml Cards: Deangelo Morales Postop LVEF: Normal RVF: Normal Important/Relevant PMH/PSH: Bronchiectasis (h/o ICU admission and intubation/airway bleeding - no residual)/LA mass/Left breast mass - s/p lumpectomy and LN biopsy and radiation in Apr 2023 now in therapy with letrozole/MS s/p treatment with Avonex (interferon beta 1a, discontinued in 2014), COVID-19, GERD, migraines, paralysis of vocal cords Preoperative Hospital Course: organized mass measuring approximately 1.3 cm x 1.3 cm adjacent to the interatrial septum within the left atrium Airway Difficulty: Grade I - Glidescope (planned) Pacing Wires: Ventricular pulled 09/12/2024 Chronological List of Surgeries and Major Events (Diagnosis): (Surgeries in bold characters) 09/09/2024: LA Mass Excision and Reconstruction of the Interatrial Septum with Autologous Pericardial Patch/Moderate-severe MR with anterior-directed jet after weaning from CPB/Second cross-clamp - Atrial septum reconstructed with a patch of autologous pericardium A/P of Major Active Problems (excluding routine care and common problems): Transfer to SDU on 09/10. Vent Wires and Pigtail removed 09/12/2024 - S/P LA Mass Excision and Reconstruction of the Interatrial Septum with Autologous Pericardial Patch/Moderate-severe MR with anterior-directed jet after weaning from CPB/Second cross-clamp - Atrial septum reconstructed with a patch of autologous pericardium. Echo 09/12: EF 64%. RV low nml. 1-2+TR. trace AR. - S/P Left pigtail s/p PTX- 4 hour clamp trial, no PTX on CXR. removed Left pigtail 09/12/2024. f/u CXR after with left apical PTX. keep on O2 NC today. CXR - stable left apical PTX, left apical pleural stripe ~3 cm separation. port CXR - small left hydroPTX, bibasilar atelectasis, Trace right pleural effusion - post op Respiratory insufficiency: Watch for secretions (H/O bronchiectasis). Albuterol/vest therapy. Watch for bloody secretions. recent CXR- bibasilar atelectasis, small pleural effusions. On room air, SpO2 98%. - Renal: (Baseline SCr 0.61). FVO: up 2.1 kg from admit weight. continue oral Lasix. monitor weights and lytes - Hx GERD: On PPI - Hx paralysis of vocal cords - Hx migraines- stable - Hx Breast Cancer - preop on letrozole, ok to resume per Hematology. - Intact preop/ H/O MS s/p treatment with Avonex (interferon beta 1a, discontinued in 2014). Multimodal pain control - Avoid IV on left side Disposition: From [place], [place]. [facility]PD appt 09/24. will f/u with local Cards. [facility] cards appt requested per patient request.. Discharge Planning: Anticipated Discharge Date: 09/14 Barriers to Discharge: No Barriers to Discharge Care Management Discharge Needs: none Needs Prior to Discharge: None Problem Noted Date Diagnosed Date Postprocedural pneumothorax 09/13/2024 Pneumothorax 09/13/2024 ABLA (acute blood loss anemia) 09/12/2024 Hypervolemia 09/11/2024 Left atrial mass 09/09/2024 Atelectasis 09/09/2024 Overview (09/09/2024): 09/09/2024 Wean mechanical vent supoort as tolerated/ H/O bronchiectasis and airway bleeding in past - was bronched pre and post CPB- clean, wacth for bleeding in airway and/or thick secretions - WTEX Postoperative pain 09/09/2024 Overview (09/09/2024): 09/09/2024 Acetaminophen CO on arrival/ IV opioids as per CPOT/ IVPCA nd PO opoids when aweare and awake/ PO acetaminophen Q6H while in hospital. Bronchiectasis 09/14/2016 Fungal pneumonia 09/14/2016 Multiple sclerosis 08/31/2010 Pulmonary infiltrates 08/31/2010 Pulmonary nodules 08/31/2010 Resolved Problems Problem Noted Date Diagnosed Date Resolved Date Pre-op testing 08/22/2024 09/13/2024 Overview (08/27/2024): [facility] PRE-OP CHECKLIST Informed Consent Completed: yes CAD: No Is intended procedure a CABG: No - is a beta oksana ordered? No - reason: na H & P completed: yes PA/LAT: yes CT: N/A MRI: N/A LE US: N/A Cath: yes EKG: yes Is patient on Amiodarone? No Echo:Completed EF %: 55 PI's: N/A Carotid: Completed Mapping: N/A Dental: Not Cleared na PFT's: Completed UA: neg HCG:N/A ABO/ABO Confirmed: yes Blood ordered: No SA Swab: Yes - results: Pending Last Dose of Anticoagulation: no Anticoagulant & Antiplatelet Medications Patient Encounter Information Not Found Op Note: No Pacer Check: NA Implants: no Consults: na DM: No Cardiac Surgical prep: No SIGNATURE: Aundrea Morales RN DATE of SERVICE: 08/22/2024 TIME of SERVICE: 4:54 PM CHECKED BY: RR Encounters Date Type Department Care Team Description 12/08/2024 [place] [address] Provider, [facility] Please complete Cardiovascular Surgery Questionnaires 11/15/2024 10:30 AM EDT Office Visit Cardiology [address] [place], [place] [id number] Ratna Cade, FUNERAL PLANNING COUNSELOR.IMMUNOLOGY TEACHER Benign neoplasm of heart (HCC) (Primary Dx); H/O excision of mass; History of open heart surgery 11/15/2024 10:00 AM EDT Procedure Cardiology [address] [place] [address] [id number] 11/08/2024 Travel 10/25/2024 Telephone Admitting [address] [place] [address] Janell Reynolds MD Post Ri Program Call - Fyi from Last 3 Months Immunizations Immunization Administration Dates Next Due influenza (HD-IIV3) vaccine, age 65+ yr, high dose, trivalent, PF (FLUZONE HIGH-DOSE) 05/07/2015 influenza (IIV4) vaccine, ag e 6 mo - 35 mo, quadrivalent, PF (AFLURIA PEDS, FLUZONE PEDS) 07/14/2014 influenza (IIV4) vaccine, ag e 6 mo - 64 yr, quadrivalent, PF (AFLURIA, FLUARIX, FLULAVAL, FLUZONE) 05/02/2019,05/04/2018 influenza vaccine, unspecified formulation 04/12,06/15/2012,10/12/2010 pneumococcal conjugate (PCV1 3) vaccine, 13 valent (PREVNAR 13) 07/14/2014 pneumococcal polysaccharide (PPV23) vaccine, 23 valent (PNEUMOVAX 23) 12/01/2011 Family History Medical History Relation Comments No Known Problems Brother 1 Drug abuse Brother 2 at age 19 Brother 2 Blood Clots Father at age 72 Father No Known Problems Maternal Grandfather No Known Problems Maternal Grandmother at age 65 Mother vascular blood clot Mother No Known Problems Paternal Grandfather No Known Problems Paternal Grandmother Malig Hyperthermia Son 1 at age 35 Son 1 No Known Problems Son 2 No Known Problems Son 3 Relation Status Comments Brother 1 Alive Brother 2 Father Maternal Grandfather Maternal Grandmother Mother Paternal Grandfather Paternal Grandmother Son 1 Son 2 Alive Son 3 Alive Social History Tobacco Use Types Packs/Day Years Used Date Smoking Tobacco: Never Smokeless Tobacco: Never Tobacco Cessation:Counseling Given: Not Answered Alcohol Use Standard Drinks/Week Comments No 0 (1 standard drink = 0.6 oz pur e alcohol) PHQ-2 Answer Date Recorded PHQ-2 score 0 02/19/2024 Area Deprivation Index Answer Date Ariel rded National Score (1-100), lower number is lower ri sk 53 02/20/2024 State Score (1-10), lower number is lower risk 3 02/20/2024 Data from: https://www.neighborhoodatlas.[facility]/. Last address used for calculation [id number] 02/20/2024 Comments No Sex and Gender Information Value Date Recorded Sex Assigned at Not on file Legal Sex Female 7:34 AM EST Gender Identity Not on file Sexual Orientation Not on file Last Filed Vital Signs Vital Sign Reading Time Taken Comments Blood Pressure 118/80 11/15/2024 10:57 AM EDT Pulse 92 11/15/2024 10:57 AM EDT Temperature 36.4 C (97.6 F) 09/24/2024 9:45 AM EDT Respiratory Rate 12 11/15/2024 10:57 AM EDT Oxygen Saturation 95% 11/15/2024 10:57 AM EDT Inhaled Oxygen Concentration - - Weight 60 kg (132 lb 4.4 oz) 11/15/2024 10:57 AM EDT Height 165.1 cm (5' 5 ) 11/15/2024 10:57 AM EDT Body Mass Index 22.01 11/15/2024 10:57 AM EDT Plan of Treatment Upcoming Encounters Date Type Department Care Team (Late st Contact Info) Description 06/09/2025 7:15 AM EST Procedure Cardiology [address] [id number] est imaging 6 mo f/u per HVI order 06/09/2025 7:45 AM EST Office Visit Cardiology [address] [place] [address] Deangelo Morales MD [address] [address] est imaging 6 mo f/u per HVI order Health Maintenance Due Date Last Done Comments Anxiety Screening 1976 Depression Screening 1976 Hepatitis C Screening 1976 CT Colonography 11/11/2003 Cologuard (FIT-DNA) 11/11/2003 Colonoscopy 11/11/2003 Colorectal Cancer Screening 11/11/2003 Fecal Occult Blood 11/11/2003 Sigmoidoscopy 11/11/2003 Medicare Annual Wellness Visit 10/16/2023 Bone Density Screening 11/11/2023 Covid-19 Vaccine (2023-08 5 season) 2024 10/31/2020, 10/10/2020 Advance Directive Discussion 07/17/2024 Mammogram Screening 03/01/2025 03/01/2024, 03/01/2024, 01/05/2023, Additional history exists Influenza Vaccine (Season Ended) 2025 06/27/2023, 04/15/2022, 05/02/2021, Additional history exists Diabetes Screening 11/16/2027 11/15/2024, 0 09/24/2024, 09/14/2024, Additional history exists DTaP,Tdap,Td Vaccine (2 - Td or Tdap) 11/28/2027 11/27/2017 Lipid Screening 11/15/2029 11/15/2024 Pneumococcal Vaccine: 50+ Completed 2022, 07/14/2014, 12/01/2011 RSV Vaccine Completed 06/30/2023 Shingrix Vaccine Completed 10/03/2024, 06/06/2024 Goals Goal Patient Goal Type Associated Problems Recent Progress Patient-Stated? Author Blood Pressure < 140/90 Blood Pressure 118/80( 025 10:57 AM EDT) Janell Jacob MD Medical Devices Implanted Type Area Sewing Machine Tester Device Identifier Shelf Expiration Date Model / Serial / Lot [employer]en[employer] Thk1.65mm Ptfe 4x.5in Cardiovascular Sterile - [id number] Implanted:Qty: 1 on 09/09/2024 at [facility] Implant N/A: Heart [employer] 07/13/2028 [id number] / / [id number] Procedures Procedure Name Priority Date/Time Associated Diagnosis Comments LVEF TRANSTHORACIC ECHO Routine 11/15/2024 8:47 AM EDT ECHO Routine 11/15/2024 8:47 AM EDT Disorder of artery or arteriole Hx of cardiac cath Atelectasis LIPID PANEL, FASTING Routine 11/15/2024 8:31 AM EDT Disorder of artery or arteriole Hx of cardiac cath Atelectasis Chest pain, unspecified type COMPLETE BLOOD COUNT Routine 11/15/2024 8:31 AM EDT Disorder of artery or arteriole Hx of cardiac cath Atelectasis BASIC METABOLIC PANEL Routine 11/15/2024 8:31 AM EDT Disorder of artery or arteriole Hx of cardiac cath Atelectasis ECG COMPLETE Routine 11/15/2024 8:18 AM EDT Disorder of artery or arteriole Hx of cardiac cath Atelectasis from Last 3 Months Results * ECHO (11/15/2024 8:47 AM EDT) 11/15/2024 8:47 AM EDT [facility]ressions [facility] - 11/15/2024 10:24 AM EDT CONCLUSIONS: - Technically difficult exam due to body habitus. - Exam indication: S/p LA mass removal (2024) - The left ventricle is normal in size. Left ventricular systolic function is normal. EF = 61 5% (2D biplane) Normal left ventricular diastolic function. - The right ventricle is normal in size. Right ventricular systolic function is normal. - AV sclerosis present without stenosis. - Exam was compared with the prior CC echocardiographic exam performed on 09/12/2024 (LIMITED). Similar findings. * * * Final * * * Narrative [facility] - 11/15/2024 10:24 AM EDT Echocardiography Report: Transthoracic Echo [facility] [id number] Date of service: 11/15/2024 8:47:07 AM SALES MANAGER Ordering physician: DEANGELO MORALES Indication: S/p LA mass removal (2024) Technologist: Shari Jackson Interpreting physician: Lauro Laird MD PATIENT: Name: MRS. EMELI KAUFMAN : 1960 Age: 64 years Gender: F Previous cardiovascular interventions: LA mass resection (09/09/2024) Primary rhythm: sinus. Height: 165.10 cm BSA: 1.68 m Weight: 61.24 kg BMI: 22.5 kg/m Heart rate 95 bpm Blood pressure 144/74 mmHg Technically difficult exam due to body habitus. Color Doppler was utilized to interrogate the cardiac valves assessed and spectral Doppler was utilized to determine the flow velocities and pressure gradients reported in this exam. MEASUREMENTS: Value Indexed Normal Max aortic dimension 3.8 cm Ao < 3.8 Left atrial volume 29 ml (Muñoz's) 17 ml/m Mayo <= 34 LV ID (diastole) 4.5 cm (2D) 2.69 cm/m LV ID (systole) 3.2 cm (2D) 1.91 cm/m IVS, leaflet tips 0.7 cm (2D) Posterior wall thickness 0.8 cm (2D) Left ventricular mass 104 g (2D) 62 g/m LV stroke volume 47 ml (2D biplane) LV end diastolic volume 78 ml (2D biplane) 46.3 ml/m 29<=EDVi<62 LV end systolic volume 30 ml (2D biplane) 18.0 ml/m Ejection Fraction 61 % (2D biplane) EF > 54 FINDINGS: LEFT VENTRICLE The left ventricle is normal in size. Left ventricular systolic function is normal. Normal left ventricular diastolic function. Mitral annular lateral E/e': 5.5. Mitral annular septal E/e': 9.9. Wall Motion: All scored segments are normal. RIGHT VENTRICLE The right ventricle is normal in size. Right ventricular systolic function is normal. RV systolic tissue Doppler velocity is 8.8 cm/s. Tricuspid annular displacement is 1.5 cm. Estimated right ventricular systolic pressure is 42 mmHg consistent with mild pulmonary hypertension. Estimated right atrial pressure is 3 mmHg based on IVC assessment. LEFT ATRIUM The left atrial cavity is normal in size. RIGHT ATRIUM The right atrial cavity is normal in size. Inferior Vena Cava: The inferior vena cava appears normal measuring 1.3 cm. The vessel decreases greater than 50 percent with inspiration. MITRAL VALVE There is no mitral valve regurgitation. There is mild thickening. The pressure half time is 53 msec. The peak mitral E/A ratio is 0.99. The average mitral E/e' ratio is 7.7. The mitral flow deceleration time is 182 msec. TRICUSPID VALVE There is mild (1+ - 2+) tricuspid valve regurgitation. There is mild thickening. AORTIC VALVE There is trace aortic valve regurgitation. Tricuspid aortic valve. There is mild thickening. PULMONIC VALVE The pulmonic valve cusps are structurally normal. There is trace pulmonic valve regurgitation. AORTA The visualized aorta is normal in size. Measurements - Sinus: 3.8 cm. PULMONARY ARTERIES The pulmonary arteries are unseen or not interrogated. INTERATRIAL SEPTUM There is no evidence of intracardiac shunting as detected by Doppler. INTERVENTRICULAR SEPTUM There is no flow through the interventricular septum as detected by Doppler. PERICARDIUM There is no pericardial effusion. us Deangelo Morales MD ECHO Final Result Performing Organization Address [facility] Co de Phone Number [facility] [address] [place] [phone] * LVEF TRANSTHORACIC ECHO (11/15/2024 8:47 AM EDT) LV Ejection Fraction 61 % [facility] Comment: (2D biplane) EF > 54 An LV Ejection Fraction of > 50% is normal 11/15/2024 8:47 AM EDT us Deangelo Morales MD LVEF RESULTS Final Result Performing Organization Address [facility] de Phone Number [address] [address] * LIPID PANEL BASIC (11/15/2024 8:31 AM EDT) Cholesterol, Total 171 <200 mg/dL 11/15/2024 4:41 PM EDT [facility] Comment: <200 mg/dL, Desirable 200-239 mg/dL, Borderline high >239 mg/dL, High Triglyceride 73 <150 mg/dL 11/15/2024 4:41 PM EDT [facility] Comment: <150 mg/dL, Normal 150-199 mg/dL, Borderline high 200-499 mg/dL, High >499 mg/dL, Very high HDL Cholesterol 62 >39 mg/dL 4:41 PM EDT [facility] Comment: 40-59 mg/dL, Acceptable >59 mg/dL, High: Negative risk factor for coronary heart disease <40 mg/dL, Low: Positive risk factor for coronary heart disease LDL Cholesterol, Calculated 95 <100 mg/dL 11/15/2024 4:41 PM EDT [facility] Comment: <100 mg/dL, Optimal 100-129 mg/dL, Near optimal/above optimal 130-159 mg/dL, Borderline high 160-189 mg/dL, High >189 mg/dL, Very high Secondary prevention optimal LDL Cholesterol levels are recommended to be <70 mg/dL LDL cholesterol is calculated using the Lowery-NIH equation. Non HDL Cholesterol 109 <130 mg/dL 11/15/2024 4:41 PM EDT [facility] Comment: <130 mg/dL, Optimal 130-159 mg/dL, Near optimal/above optimal 160-189 mg/dL, Borderline high 190-219 mg/dL, High >219 mg/dL, Very high Secondary prevention optimal non HDL Cholesterol levels are recommended to be <100 mg/dL VLDL Cholesterol 12 <30 mg/dL 11/16/19 4:41 PM EDT [facility] TC:HDL Ratio 2.76 <5.10 11/15/2024 4:41 PM EDT [facility] LDL:HDL Ratio 1.53 <2.54 11/15/2024 4:41 PM EDT [facility] Comment: Reference: 1. National Cholesterol Education Program ATP III Guideline At-A-Glance Quick Desk Reference: National Heart, Lung, and Blood Cope. National Institutes of Health. 2001: NIH Publication No. 01-3305. 2. An International Atherosclerosis Society position paper: global recommendations for the management of dyslipidemia: executive summary, Atherosclerosis. 2014: 232(2):410-413. Fasting Time 0 hrs 11/15/2024 4:41 PM EDT [facility] Blood BLOOD SPECIMEN / Unknown Venipuncture / Unknown 11/15/2024 8:31 AM EDT 11/15/2024 8:31 AM EDT us Deangelo Morales MD LABORATORY Final Result [facility] [address] [id number], * COMPLETE BLOOD COUNT (11/15/2024 8:31 AM EDT) WBC 6.49 3.70 - 11.00 k/uL 11/15/2024 9:40 AM EDT [facility] RBC 4.36 3.90 - 5.20 m/uL 11/15/2024 9:40 AM EDT [facility] Hemoglobin 11.7 11.5 - 15.5 g/dL 11/15/2024 9:40 AM EDT [facility] Hematocrit 38.1 36.0 - 46.0 % 11/15/2024 9:40 AM EDT [facility] MCV 87.4 80.0 - 100.0 fL 11/15/2024 9:40 AM EDT [facility] MCH 26.8 26.0 - 34.0 pg 11/15/2024 9:40 AM EDT [facility] MCHC 30.7 30.5 - 36.0 g/dL 11/15/2024 9:40 AM EDT [facility] RDW-CV 14.3 11.5 - 15.0 % 11/15/2024 9:40 AM EDT [facility] Platelet Count 281 150 - 400 k/uL 11/15/2024 9:40 AM EDT [facility] MPV 9.8 9.0 - 12.7 fL 11/15/2024 9:40 AM EDT [facility] Absolute nRBC <0.01 <0.01 k/uL 11/15/2024 9:40 AM EDT [facility] Blood BLOOD SPECIMEN / Unknown Venipuncture / Unknown 11/15/2024 8:31 AM EDT 11/15/2024 8:31 AM EDT us Deangelo Morales MD LABORATORY Final Result [facility] [address] [place] [address], * BASIC METABOLIC PANEL (11/15/2024 8:31 AM EDT) [facility] Glucose 95 74 - 99 mg/dL 11/15/2024 4:41 PM EDT [facility] Comment: The [place] Diabetes Association (ADA) provides guidance for cutoff values for fasting glucose and random glucose. The ADA defines fasting as no caloric intake for at least 8 hours. Fasting plasma glucose results between 100 to 125 mg/dL indicate increased risk for diabetes (prediabetes). Fasting plasma glucose results greater than or equal to 126 mg/dL meet the criteria for diagnosis of diabetes. In the absence of unequivocal hyperglycemia, results should be confirmed by repeat testing. In a patient with classic symptoms of hyperglycemia or hyperglycemic crisis, random plasma glucose results greater than or equal to 200 mg/dL meet the criteria for diagnosis of diabetes. Reference: Standards of Medical Care in Diabetes 2016, [place] Diabetes Association. Diabetes Care. 2016.39(Suppl 1). BUN 19 7 - 21 mg/dL 11/15/2024 4:41 PM [facility] Creatinine 0.74 0.58 - 0.96 mg/dL 11/15/2024 4:41 PM [facility] Sodium 140 136 - 144 mmol/L 11/15/2024 4:41 PM [facility] Potassium 4.5 3.7 - 5.1 mmol/L 11/15/2024 4:41 PM [facility] Chloride 104 98 - 107 mmol/L 11/15/2024 4:41 PM [facility] CO2 27 22 - 30 mmol/L 11/15/2024 4:41 PM [facility] Anion Gap 9 8 - 15 mmol/L 11/15/2024 4:41 PM [facility] Calcium, Total 10.0 8.5 - 10.2 mg/dL 11/15/2024 4:41 PM [facility] Estimated Glomerular Filtration Rate 89 >=60 mL/min/1.7 3m 11/15/2024 4:41 PM [facility] Comment:Estimated Glomerular Filtration Rate (eGFR) is calculated using the 2020 CKD-EPI creatinine equation. This equation utilizes serum creatinine, sex, and age as parameters. The creatinine assay has traceable calibration to isotope dilution- mass spectrometry. Refer to KDIGO guidelines for clinical interpretation. In patients with unstable renal function, e.g. those with acute kidney injury, the eGFR may not accurately reflect actual GFR. Blood BLOOD SPECIMEN / Unknown Venipuncture / Unknown 11/15/2024 8:31 AM EDT 11/15/2024 8:31 AM EDT Deangelo Morales MD LABORATORY Final Result [facility] [address] [facility] [address] [place] [address], * ECG COMPLETE (11/15/2024 8:18 AM EDT) Ventricular Rate 94 BPM [facility] Atrial Rate 94 BPM [facility] P-R Interval 184 ms [facility] QRS Duration 74 ms [facility] QT Interval 330 ms [facility] QTC Calculation (Bazett) 412 ms [facility] Calculated P [place] 94 degrees [facility] Calculated R [place] 59 degrees [facility] Calculated T [place] -40 degrees [facility] 11/15/2024 8:18 AM EDT Impressions [facility] - 11/29/2024 1:30 PM EDT NORMAL SINUS RHYTHM LEFT VENTRICULAR HYPERTROPHY WITH REPOLARIZATION ABNORMALITY ( Sokolow-Fong ) ABNORMAL ECG Confirmed by MD FISH TAMANNA ([id number]) on 11/29/2024 1:30:10 PM Narrative [facility] - 11/29/2024 1:30 PM EDT NAME : EMELI KAUFMAN PID : [id number] : 1960 Gender : Female Race : ORD : [id number] Procedure Date : Nov 15 2024 08:18:48 Edit Date : Nov 29 2024 13:30:16 Diagnosis: NORMAL SINUS RHYTHM LEFT VENTRICULAR HYPERTROPHY WITH REPOLARIZATION ABNORMALITY ( Sokolow-Fong ) ABNORMAL ECG Confirmed by MD FISH TAMANNA ([id number]) on 11/29/2024 1:30:10 PM Test Reason : [id number] Location : 314 : J14 J1-4 Overread By : MD FISH TAMANNA Edited By : MD FISH TAMANNA Referred By : EMELI WATT Acquired by : RADHAEDDIE Deangelo Morales MD EKG Final Result [facility] [address] [id number] from Last 3 Months Insurance MEDICARE MEDICARE SUPPLEMENT Care Teams Spinner Frame Relationship Specialty Start Date End Date Sabas Wagner MD PCP - General Family Medicine 09/09/10 Kem Block MD [address] [facility] [place] [place] [address] Referring Cardiology 06/04/24 Janell Reynolds MD [address] [place] [address] Surgeon Cardiac Surg 06/05/24 Deangelo Morales MD [address] [place] [address] Primary Staff Physician Cardiology 07/11/24
--- OUTSIDE RECORDS SUMMARY | 2025-01-23 08:59 | XMS_ITS | Encounter Summary ---
Author Organization [facility] Address [address] [place] [address] Care Team Providers Care Mba Intern Name Role Phone Sabas Wagner MD Primary Care Provider [phone] Kem Block MD Unavailable [phone] Janell Reynolds MD Unavailable [phone] Deangelo Morales MD Unavailable [phone] Source Comments In the event this information is protected by the Federal Confidentiality of Alcohol and Drug AbusePatient Records regulations: The Federal rules restrict any use of the information to criminally investigate or prosecute any alcohol or drug abuse patient.[facility] Encounter Details Date Type Department Care Team (Latest Contact Info) Description 10/09/2024 [place] [address] Provider, Ccf Please complete Cardiovascular Surgery Questionnaires [...] is lower risk 3 02/20/2024 Data from: https://www.neighborhoodatlas.[facility]/. Last address used for calculation [id number] 02/20/2024 Comments No Sex and [...] 06/09/2025 7:15 AM EST Procedure Cardiology [address] [place] [address] est imaging 6 mo f/u per HVI order 06/09/2025 7:45 AM EST Office Visit Cardiology [address] [id number] Deangelo Morales MD [address] [id number] est imaging 6 mo f/u per HVI order documented as of this encounter Goals Goal Patient Goal Type Associated Problems Recent Progress Patient-Stated? Author Blood Pressure < 140/90 Blood Pressure 118/80( 025 10:57 AM EDT) No Janell Reynolds MD documented as of this encounter Visit Diagnoses Not on filedocumented in this encounter Care Teams Mba Intern Relationship Specialty Start Date End Date Sabas Wagner MD PCP - General Family Medicine 09/09/10 Kem Block MD [address] [place] [address] Referring Cardiology 06/04/24 Janell Reynolds MD [address] [place] [address] Surgeon Cardiac Surg 06/05/24 Deangelo Morales MD [address] [place] [address] Primary Staff Physician Cardiology 07/11/24 documented as of this encounter
--- OUTSIDE RECORDS SUMMARY | 2025-01-23 08:59 | XMS_ITS | Encounter Summary ---
Author Organization [facility] Address [address] [place] [address] Care Team Providers Care Commercial Project Manager Name Role Phone Sabas Wagner MD Primary Care Provider [phone] Kem Block MD Unavailable [phone] Janell Reynolds MD Unavailable [phone] Deangelo Morales MD Unavailable [phone] Source Comments In the event this information is protected by the Federal Confidentiality of Alcohol and Drug AbusePatient Records regulations: The Federal rules restrict any use of the information to criminally investigate or prosecute any alcohol or drug abuse patient.[facility] Encounter Details Date Type Department Care Team (Late st Contact Info) Description 08/15/2024 Patient Msg Cardiothoracic [address] [place], [place] [phone] Provider, Ccf Please complete your Cardiac Surgery [...] is lower risk 3 02/20/2024 Data from: https://www.neighborhoodatlas.medicine.[facility].edu/. Last address used for calculation [address] 02/20/2024 Comments No Sex and [...] 06/09/2025 7:15 AM EST Procedure Cardiology [address] [place] [address] est imaging 6 mo f/u per HVI order 06/09/2025 7:45 AM EST Office Visit Cardiology [address] [phone] Deangelo Morales MD [address] [id number] est imaging 6 mo f/u per HVI order documented as of this encounter Goals Goal Patient Goal Type Associated Problems Recent Progress Patient-Stated? Author Blood Pressure < 140/90 Blood Pressure 118/80( 025 10:57 AM EDT) No Janell Reynolds MD documented as of this encounter Visit Diagnoses Not on filedocumented in this encounter Care Teams Commercial Project Manager Relationship Specialty Start Date End Date Sabas Wagner MD PCP - General Family Medicine 09/09/10 Kem Block MD [address] [place] [address] Referring Cardiology 06/04/24 Janell Reynolds MD [address] [place] [address] Surgeon Cardiac Surg 06/05/24 Deangelo Morales MD [address] [place] [address] Primary Staff Physician Cardiology 07/11/24 documented as of this encounter
--- OUTSIDE RECORDS SUMMARY | 2025-01-23 08:59 | XMS_ITS | Clinical Summary ---
Author Organization [facility] Address [address] [place] [address] Care Team Providers Care Director Sales Training Name Role Phone Sabas Wagner MD Primary Care Provider [phone] Allergies No known active allergies Medications latanoprost [...] CAREN [address] [place] [address] 04/30/2025 3:00 PM EDT Office Visit [facility] [address] [place] [address] Fernanda Mcgovern, DO [address] [place] [address] Health Maintenance Due Date Last Done Comments [...] IS VERY IMPORTANT TO YOUR HEALTH. THE [place] [employer]IET[employer] GUIDELINES RECOMMEND THAT WOMEN 40 [...] IS VERY IMPORTANT TO YOUR HEALTH. THE [place] CAN[employer] SOCIETYGUIDELINES RECOMMEND THAT WOMEN 40 YEARS [...] Comment:Negative for intraep ithelial lesion or malignancy. [facility] [facility] Comment: G, MICHAEL(ASCP) CT screening location: [employer], [address] [place] [address], [place] [address]. (ALWAYS MESSAGE) [facility] Comment: EXPLANATORY NOTE: The [...] Organization Information Site ID: [id number] Name: [facility] Address: [address] [place] [address] Director: Nico Nixon MD Fernanda Mcgovern DO LAB CYTOLOGY ORDERABLES Fin al Result [facility] from Last 3 Months or Most Recently Relevant to Health Maintenance Insurance MEDICARE GENERIC COMMERCIAL Care Teams Director Sales Training Relationship Specialty Start Date End Date Sabas Wagner MD PCP - General Family Medicine 12/28/22
--- OUTSIDE RECORDS SUMMARY | 2025-01-23 09:00 | XMS_ITS | Clinical Summary ---
Author Organization [facility] Address [address] [place] [address] Phone Care Team Providers Care Evaluator Transfer Students Name Role Phone Unavailable Primary Care Provider [...]
--- OUTSIDE RECORDS SUMMARY | 2025-01-23 09:00 | XMS_ITS | Encounter Summary ---
Author Organization [facility] Address [address] [place] [address] Care Team Providers Care Consumer Marketing Specialist Name Role Phone Sabas Wagner MD Primary Care Provider [phone] Kem Block MD Unavailable [phone] Janell Reynolds MD Unavailable [phone] Deangelo Morales MD Unavailable [phone] Source Comments In the event this information is protected by the Federal Confidentiality of Alcohol and Drug AbusePatient Records regulations: The Federal rules restrict any use of the information to criminally investigate or prosecute any alcohol or drug abuse patient.[facility] Encounter Details Date Type Department Care Team (Latest Contact Info) Description 12/08/2024 [place] [address] Provider, Ccf Please complete Cardiovascular Surgery Questionnaires [...] is lower risk 3 02/20/2024 Data from: https://www.neighborhoodatlas.[facility]/. Last address used for calculation [id number] 02/20/2024 Comments No Sex and Gender Information Value Date Recorded Sex Assigned at Not on file Legal Sex Female 7:34 AM EST Gender Identity Not on file Sexual Orientation Not on file documented as of this encounter Functional Status * Are you deaf or do you have serious difficulty hearing? Answer Date of Assessment Author No 09/14/2024 1:11 PM Anayeli oCy RN * Are you blind or do [...] 06/09/2025 7:15 AM EST Procedure Cardiology [address] [place] [address] est imaging 6 mo f/u per HVI order 06/09/2025 7:45 AM EST Office Visit Cardiology [address] [phone] Deangelo Morales MD [address] [phone] est imaging 6 mo f/u per HVI order documented as of this encounter Goals Goal Patient Goal Type Associated Problems Recent Progress Patient-Stated? Author Blood Pressure < 140/90 Blood Pressure 118/80( 025 10:57 AM EDT) No Janell Reynolds MD documented as of this encounter Visit Diagnoses Not on filedocumented in this encounter Care Teams Consumer Marketing Specialist Relationship Specialty Start Date End Date Sabas Wagner MD PCP - General Family Medicine 09/09/10 Kem Block MD [address] [place] [address] Referring Cardiology 06/04/24 Janell Reynolds MD [address] [place] [address] Surgeon Cardiac Surg 06/05/24 Deangelo Morales MD [address] [place] [address] Primary Staff Physician Cardiology 07/11/24 documented as of this encounter
--- OUTSIDE RECORDS SUMMARY | 2025-01-23 09:00 | XMS_ITS | Encounter Summary ---
Author Organization [facility] Address [address] [place] [address] Care Team Providers Care Ecotherapist Name Role Phone Sabas Wagner MD Primary Care Provider [phone] Encounter Details Date Type Department Care Team (Late Contact Info) Description 12/13/2022 Abstract [facility] [address] [place] [address] Fernanda Mcgovern, DO [address] [facility] [address] [place] [address] Social History Tobacco Use Types Packs/Day Years [...] [address] [place] [address] 04/30/2025 3:00 PM EDT Office Visit [facility] [address] [facility] [address] [place] [address] Fernanda Mcgovern, DO [address] [place] [address] documented as of this encounter Visit Diagnoses Not on filedocumented in this encounter Care Teams Ecotherapist Relationship Specialty Start Date End Date Sabas Wagner MD PCP - General Family Medicine 12/28/22 documented as of this encounter
== END 2025-01-22 08:56 | disposition home or self-care (01) ==
LOC: LAB 08:55
PROVIDERS: PCP Family Medicine; Visit Provider Family Medicine
DX: R05.9 Cough, unspecified (principal)
CPT/HCPCS: 36415; 87116; 87206

== ENCOUNTER 2025-01-23 08:58 | Outpatient (REF) | payer MEDICARE, OTHER, SELFPAY | END 2025-01-23 08:59 | disposition home or self-care (01) | LOC: LAB 08:58 | PROVIDERS: PCP Family Medicine; Visit Provider Family Medicine | DX: R05.9 Cough, unspecified (principal) | CPT/HCPCS: 36415 ==

== ENCOUNTER 2025-02-26 12:47 | Outpatient (OUT) | payer MEDICARE, OTHER, SELFPAY ==
--- OUTSIDE RECORDS SUMMARY | 2025-01-20 05:02 | XMS_ITS ---
Author Organization The [facility] in [place] Address [address] [place] [address] Care Team Providers Care Brick Tender Name Role Phone Joselito Wagner Primary Care Provider [phone] REASON FOR VISIT sputum cx Encounters Encounter Location Date Provider Diagnosis [facility] [address] [place] [address] 01/20/2025 Joselito Wagner Cough R05.9 Assessments Encounter Date Diagnosis (ICD Code) Assessment Notes Treatment Notes Treatment Clinical Notes Section Notes 01/20/2025 Cough (ICD-10 - R05.9) Plan Of Treatment Pending Test Test Name Order Date Sputum Culture 01/20/2025 Next Appt Details Provider Name:Stevie Fajardo, 10/21/2025 02:00:00 PM, [address] [place], [address], Progress Notes * Emeli KAUFMAN MDOB:1960 (64 yo F)Acc No.[id number]:01/20/2025 Patient: Karon Emeli RUIZ :1960 A ge:64 Y S ex:Female Address:[address] [place], [address] Subjective: * Chief Complaints: * S putum cx * Medical History: * Surgical History: * Hospitalization/Major Diagno stic Procedure: * Medications: Objective: * Vitals: * Physical Examination: Assessment: * Assessment: 1. C ough - R05.9 (Primary) Plan: * Treatment: * Procedure Codes: * true * Date: Generated for Reynaldo mi/Kendall/See on: 0 02/26/2025 12:50 PM EDT
--- OUTSIDE RECORDS SUMMARY | 2025-01-29 04:51 | XMS_ITS ---
Author Organization [facility] [place] Address [address] [place] [address] Care Team Providers Care Back Roll Lathe Operator Name Role Phone Joselito Wagner Primary Care Provider [phone] REASON FOR VISIT Labs Encounters Encounter Location Date Provider Diagnosis [facility] [place] [address] [facility] [place] [address] 01/29/2025 Joselito Wagner Plan Of Treatment Next Appt Details Provider Name:Stevie aFjardo, 10/21/2025 02:00:00 PM, [address] [place], [address], Progress Notes * Emeli KAUFMAN MDOB:1960 (64 yo F)Acc No.[id number]:01/29/2025 Patient: Emeli CUADRA :1960 A ge:64 Y S ex:Female Address:[address] [place] [facility] [facility] [[email or web address]] [phone] * true * Date: Generated for Printi ng/Faxing/eTransmitting on: 0 02/26/2025 12:50 PM EDT
--- OUTSIDE RECORDS SUMMARY | 2025-02-26 04:31 | XMS_ITS ---
Author Organization [facility] [place] Address [address] [place] [address] Care Team Providers Care Technical Service Rep Name Role Phone Joselito Wagner Primary Care Provider REASON FOR VISIT lab- CHECK CX MONDAY Encounters Encounter Location Date Provider Diagnosis [facility] [address] [facility] [place] [address] 02/26/2025 Joselito Wagner Pneumonia, unspecif ied organism J18.9 Assessments Encounter Date Diagnosis (ICD Code) Assessment Notes Treatment Notes Treatment Clinical Notes Section Notes 02/26/2025 Pneumonia, unspecified organism (ICD-10 - J18.9) Plan Of Treatment Pending Test Test Name Order Date CBC W/AUTO DIFF 02/26/2025 QUANTIFERON TB GOLD PLUS 02/26/2025 Next Appt Details Provider Name:Stevie Fajardo, 10/21/2025 02:00:00 PM, [address] [place], [address], Progress Notes * Emeli KAUFMAN MDOB:1960 (64 yo F)Acc No.[id number]:02/26/2025 UNLOCKED PROGRESS NOTE Patient: Karon BARLOWEmeli HODGE :1960 A ge:64 Y S ex:Female [address] [facility] [address] Subjective: * Chief Complaints: * l ab- CHECK CX MONDAY * Medical History: * Surgical History: * Hospitalization/Major Diagno stic Procedure: * Medications: Objective: * Vitals: * Physical Examination: Assessment: * Assessment: 1. P neumonia, unspecified organism - J18.9 (Primary) Plan: * Treatment: * Procedure Codes: * * Date:
--- OUTSIDE RECORDS SUMMARY | 2025-02-26 12:50 | XMS_ITS ---
Author Organization [facility] Address [address] [place] [address] Care Team Providers Care Client Associate Name Role Phone Sabas Wagner MD Primary Care Provider [phone] Deja Mendez Unavailable [phone] Stevie Fajardo MD Unavailable Active Problems Problem [...] information found. Current Radiation Episodes * 3D NAIL ARTIST: Left Breast with lymph nodesOverview* First Treatment Date Latest Treatment Date Treatment Site Technique Goal Episode Provider 06/14/2023 07/28/2023 Left Breast with lymph nodes 3D NAIL ARTIST Curative Deja Mendez * Linked Problems Malignant [...]
--- OUTSIDE RECORDS SUMMARY | 2025-02-26 12:50 | XMS_ITS | Clinical Summary ---
Author Organization [facility] Address [address] [place] [address] Care Team Providers Care It Systems Analyst Consultant Name Role Phone Sabas Wagner MD Primary Care Provider [phone] Allergies No known active allergies Medications latanoprost [...] levoFLOXacin (Levaquin) 750 MG tablet 4 Active Encounters Date Type Department Care Team Description 02/25/2025 Travel from Last 3 Months Family History Medical [...] Description 03/04/2025 10:30 AM EDT Ancillary Procedure [facility] [address] [place] [address] 04/30/2025 3:00 PM EDT Office Visit [facility] [address] [place] [address] Fernanda Mcgovern DO [address] [place] [address] Health Maintenance Due Date Last Done Comments CT Colonography 1960 Colonoscopy 1960 Colorectal Cancer Screening 1960 FIT-DNA 1960 FIT 1960 FOBT 1960 Sigmoidoscopy 1960 Mammogram 03/01/2025 03/01/2024, 12/16, 12/29/2021, Additional history exists Influenza Vaccine (#1) 2025 3, 04/15/2022, 05/02/2021, Additional history exists Cervical Cancer [...] IS VERY IMPORTANT TO YOUR HEALTH. THE [place] [employer]IET[employer] GUIDELINES RECOMMEND THAT WOMEN 40 [...] ADDITIONAL VIEWS. TRANSCRIBED BY: ELECTRONICALLY SIGNED BY: MD Theo See 03/04/2024 1:56 PM EDT EXAMINATION: BI MAMMOGRAM [...] IS VERY IMPORTANT TO YOUR HEALTH. THE [place] CANCER SOCIETYGUIDELINES RECOMMEND THAT WOMEN 40 YEARS [...] Comment:Negative for intraep ithelial lesion or malignancy. [employer] [facility] Comment: MICHAEL SANDHU(ASCP) CT screening location: [employer], [address] [place] [address], [place] [address]. (ALWAYS MESSAGE) [facility] Comment: EXPLANATORY NOTE: The [...] Performing Organization Information Site ID: [id number] Name: [employer] [facility] Address: [address] [place] [address], [address] [place] [address] Director: Nico Nixon MD us Fernanda Mcgovern DO LAB CYTOLOGY ORDERABLES Fin al Result [facility] from Last 3 Months or Most Recently Relevant to Health Maintenance Insurance MEDICARE [place] [address] Care Teams It Systems Analyst Consultant Relationship Specialty Start Date End Date Sabas Wagner MD PCP - General Family Medicine 12/28/22
--- OUTSIDE RECORDS SUMMARY | 2025-02-26 12:50 | XMS_ITS | Clinical Summary ---
Author Organization [facility] Address [address] [place] [address] Care Team Providers Care Mri Technologist Name Role Phone Sabas Wagner MD Primary Care Provider [phone] Kem Block MD Unavailable [phone] Janell Reynolds MD Unavailable [phone] Deangelo Morales MD Unavailable [phone] Allergies Active Allergy Reactions Criticality Noted Date [...] daily with breakfast. 30 tablet 2 5 Active Active Problems Patient Care Coordination No te Formatting of this note migh t be different from the original. Indication for Surgery: Left atrial mass Preop LVEF: 55% RVF: Normal. RVSP 41 mmHg. neg shunt. small pc EKG: NSR, LVH Cath: orl Cards: Deangelo Morales Postop LVEF: Normal RVF: [...] Avoid IV on left side Disposition: From [place], [place]. [facility]PD appt 09/24. will f/u with [...] Postoperative pain 09/09/2024 Overview (09/09/2024): 09/09/2024 Acetaminophen IN on arrival/ IV opioids as per CPOT/ [...] Description 12/08/2024 [place] [address] Provider, Ccf Please complete Cardiovascular Surgery Questionnaires from Last 3 Months Immunizations Immunization Administration [...] is lower risk 3 02/20/2024 Data from: https://www.neighborhoodatlas.[facility].edu/. Last address used for calculation [address] 02/20/2024 Comments No Sex and Gender [...] 06/09/2025 7:15 AM EST Procedure Cardiology [address] [place] [address] est imaging 6 mo f/u per HVI order 06/09/2025 7:45 AM EST Office Visit Cardiology [address] [phone] Deangelo Morales MD [address] [facility] [address] [place] [phone] est imaging 6 mo f/u per HVI order Health Maintenance Due Date Last Done Comments Anxiety Screening 1976 Depression Screening 1976 Hepatitis C Screening 1976 CT Colonography 11/11/2003 Cologuard (FIT-DNA) 11/11/2003 Colonoscopy 11/11/2003 Colorectal Cancer Screening 11/11/2003 Fecal Occult Blood 11/11/2003 Sigmoidoscopy 11/11/2003 Medicare Annual Wellness Visit 10/16/2023 Bone Density Screening 11/11/2023 Advance Directive Discussion 07/17/2024 Mammogram Screening 03/01/2025 03/01/2024, 03/01/2024, 01/05/2023, Additional history exists Influenza Vaccine (#1) 2025 , 04/15/2022, 05/02/2021, Additional history exists Diabetes Screening [...] Jacob MD Medical Devices Implanted Type Area Channel Process Plant Operator Device Identifier Shelf Expiration Date Model / Serial / Lot Tipton Thk1.65mm Ptfe 4x.5in Cardiovascular Sterile - [id number] Implanted:Qty: 1 on 09/09/2024 at [facility] Implant N/A: Heart [employer] 07/13/2028 [id number] / / [id number] Procedures Procedure Name Priority Date/Time Associated Diagnosis Comments BASIC METABOLIC PANEL Routine 11/15/2024 8:31 AM EDT Disorder of artery or arteriole Hx of cardiac cath Atelectasis LIPID PANEL, FASTING Routine 11/15/2024 8:31 AM EDT Disorder of artery or arteriole Hx of cardiac cath Atelectasis Chest pain, unspecified type from Last 3 Months or Most Recently Relevant to Health Maintenance Results * LIPID PANEL BASIC (11/15/2024 8:31 AM EDT) Cholesterol, Total 171 <200 mg/dL 11/15/2024 4:41 PM EDT [facility] Comment: <200 mg/dL, Desirable 200-239 mg/dL, Borderline high >239 mg/dL, High Triglyceride 73 <150 mg/dL 11/15/2024 4:41 PM EDT [facility] Comment: <150 mg/dL, Normal 150-199 mg/dL, Borderline high 200-499 mg/dL, High >499 mg/dL, Very high HDL Cholesterol 62 >39 mg/dL 4:41 PM EDT [facility] Comment: 40-59 mg/dL, Acceptable >59 mg/dL, High: Negative risk factor for coronary heart disease <40 mg/dL, Low: Positive risk factor for coronary heart disease LDL Cholesterol, Calculated 95 <100 mg/dL 11/15/2024 4:41 PM EDT [facility] Comment: <100 mg/dL, Optimal 100-129 mg/dL, Near optimal/above optimal 130-159 mg/dL, Borderline high 160-189 mg/dL, High >189 mg/dL, Very high Secondary prevention optimal LDL Cholesterol levels are recommended to be <70 mg/dL LDL cholesterol is calculated using the Lowery-NIH equation. Non HDL Cholesterol 109 <130 mg/dL 11/15/2024 4:41 PM EDT [facility] Comment: <130 mg/dL, Optimal 130-159 mg/dL, Near optimal/above optimal 160-189 mg/dL, Borderline high 190-219 mg/dL, High >219 mg/dL, Very high Secondary prevention optimal non HDL Cholesterol levels are recommended to be <100 mg/dL VLDL Cholesterol 12 <30 mg/dL 11/16/19 4:41 PM EDT [facility] TC:HDL Ratio 2.76 <5.10 11/15/2024 4:41 PM EDT [facility] LDL:HDL Ratio 1.53 <2.54 11/15/2024 4:41 PM EDT [facility] Comment: Reference: 1. National Cholesterol Education Program ATP III Guideline At-A-Glance Quick Desk Reference: National Heart, Lung, and Blood [place]. National Institutes of Health. 2001: NIH Publication No. 01-3305. 2. An International Atherosclerosis Society position paper: global recommendations for the management of dyslipidemia: executive summary, Atherosclerosis. 2014: 232(2):410-413. Fasting Time 0 hrs 11/15/2024 4:41 PM EDT [facility] Blood BLOOD SPECIMEN / Unknown Venipuncture / Unknown 11/15/2024 8:31 AM EDT 11/15/2024 8:31 AM EDT us Deangelo Morales MD LABORATORY Final Result [facility] [address] [place] [address], * BASIC METABOLIC PANEL (11/15/2024 8:31 AM EDT) Glucose 95 74 - 99 mg/dL 11/15/2024 4:41 PM [facility] Comment: The [place] Diabetes Association (ADA) provides guidance for cutoff [...] Standards of Medical Care in Diabetes 2016, [place] Diabetes Association. Diabetes Care. 2016.39(Suppl 1). BUN 19 7 - 21 mg/dL 11/15/2024 4:41 PM [facility] Creatinine 0.74 0.58 - 0.96 mg/dL 11/15/2024 4:41 PM [facility] Sodium 140 136 - 144 mmol/L 11/15/2024 4:41 PM [facility] Potassium 4.5 3.7 - 5.1 mmol/L 11/15/2024 4:41 PM [facility] Chloride 104 98 - 107 mmol/L 11/15/2024 4:41 PM [facility] CO2 27 22 - 30 mmol/L 11/15/2024 4:41 PM [facility] Anion Gap 9 8 - 15 mmol/L 11/15/2024 4:41 PM [facility] Calcium, Total 10.0 8.5 - 10.2 mg/dL 11/15/2024 4:41 PM [facility] Estimated Glomerular Filtration Rate 89 >=60 mL/min/1.7 3m 11/15/2024 4:41 PM [facility] Comment:Estimated Glomerular Filtration Rate (eGFR) [...] us Deangelo Morales MD LABORATORY Final Result [facility] [address] [address], [place] from Last 3 Months or Most Recently Relevant to Health Maintenance Insurance MEDICARE MEDICARE SUPPLEMENT Care Teams Mri Technologist Relationship Specialty Start Date End Date Sabas Wagner MD PCP - General Family Medicine 09/09/10 Kem Block MD [address] [place] [address] Referring Cardiology 06/04/24 Janell Reynolds MD [address] [facility] [place] [address] Surgeon Cardiac Surg 06/05/24 Deangelo Morales MD [address] [place] [address] Primary Staff Physician Cardiology 07/11/24
--- OUTSIDE RECORDS SUMMARY | 2025-02-26 12:50 | XMS_ITS | Encounter Summary ---
Author Organization [facility] Address [address] [place] [address] Care Team Providers Care Er Nurse Name Role Phone Sabas Wagner MD Primary Care Provider [phone] Kem Block MD Unavailable [phone] Janell Reynolds MD Unavailable [phone] Deangelo Morales MD Unavailable [phone] Source Comments In the event this information is protected by the Federal Confidentiality of Alcohol and Drug AbusePatient Records regulations: The Federal rules restrict any use of the information to criminally investigate or prosecute any alcohol or drug abuse patient.[facility] Encounter Details Date Type Department Care Team (Late st Contact Info) Description 08/15/2024 Patient Msg Cardiothoracic [address] [place], [place] [id number] Provider, Ccf Please complete your Cardiac Surgery [...] is lower risk 3 02/20/2024 Data from: https://www.neighborhoodatlas.medicine.[facility].edu/. Last address used for calculation [id number] 02/20/2024 Comments No Sex and [...] 06/09/2025 7:15 AM EST Procedure Cardiology [address] [place] [address] est imaging 6 mo f/u per HVI order 06/09/2025 7:45 AM EST Office Visit Cardiology [address] [place] [id number] Deangelo Morales MD [address] [id number] est imaging 6 mo f/u per HVI order documented as of this encounter Goals Goal Patient Goal Type Associated Problems Recent Progress Patient-Stated? Author Blood Pressure < 140/90 Blood Pressure 118/80( 025 10:57 AM EDT) No Janell Reynolds MD documented as of this encounter Visit Diagnoses Not on filedocumented in this encounter Care Teams Er Nurse Relationship Specialty Start Date End Date Sabas Wagner MD PCP - General Family Medicine 09/09/10 Kem lBock MD [address] [place] [address] Referring Cardiology 06/04/24 Janell Reynolds MD [address] [place] [address] Surgeon Cardiac Surg 06/05/24 Deangelo Morales MD [address] [place] [address] Primary Staff Physician Cardiology 07/11/24 documented as of this encounter
--- OUTSIDE RECORDS SUMMARY | 2025-02-26 12:50 | XMS_ITS | Clinical Summary ---
Author Organization [facility] Address [address] [place] [address] Care Team Providers Care Sales Exec Name Role Phone Sabas Wagner MD Primary Care Provider [phone] Deja Mendez Unavailable [phone] Stevie Fajardo MD Unavailable Allergies Active Allergy Reactions Criticality Noted Date Comments Warfarin Other High 07/11/2024 Due to hemorrhaging ALL BLOOD THINNERS Medications sodium chloride 0.9 % nebulizer solution Take 3 mL by nebulization if needed in the morning, at noon, and at bedtime. 03/07/20 23 Active letrozole (Femara) 2.5 mg chemo tablet Take 1 tablet by mouth 1 (one) time each day 05/22/20 23 Active latanoprost (Xalatan) 0.005 % ophthalmic solution [...] LEAST 30 MINS BEFORE FIRST FOOD/DRINK/MEDIC ATION 10/17/19 24 Active metoprolol tartrate (Lopressor) 25 mg tabletIndications: Sinus tachycardia Take 0.5 tablets (12.5 mg) by mouth two times daily. 30 tablet 04/01/20 24 Active calcium carbonate (Os-Kashif) 625 mg (250 MG CA) split tablet Take 1 tablet by mouth in the morning. Active fluticasone (Flonase) 50 mcg/actuation nasal sprayIndications:A llergy, sequela Administer 1 spray into each nostril in the morning. Shake gently. Before first use, prime pump. After use, clean tip and replace cap. 16 g 02/05/20 026 Active fexofenadine ODT (Lina ODT) 30 mg disintegrating tabletIndications: Allergy, sequela Take 1 tablet (30 mg) by mouth in the morning. 30 tablet 02/05/20 026 Active Active Problems Problem Noted Date Diagnosed [...] Encounters Date Type Department Care Team Description 02/04/2025 11:00 AM EDT Office Visit [facility] [address] [place] [place] [address] Niya Chilel MD Allergy, sequela (Primary Dx) from Last 3 Months Family History Medical History Relation Name Comments Clotting disorder Father Clotting disorder Mother Relation Name Status Comments Father Mother Social History Tobacco Use Types Packs/Day Years Used Date Smoking Tobacco: Never Smokeless Tobacco: Never Tobacco Cessation:Counseling Given: Not Answered Alcohol Use Standard Drinks/Week Comments Never 0 (1 standard drink = 0.6 oz pur e alcohol) [facility] Utilities Answer Date Recorded In the past 12 months has [employer] gas, oil, or water [employer] threatened to shut off services in your [...] Date Recorded Patient Health Questionnaire-2 Score 0 02/04/2025 Transportation Answer Date Recorded In the past [...] place to sleep or slept in a detention (including now)? Patient unable to answer 03/27/2024 [...] Sign Reading Time Taken Comments Blood Pressure 124/78 02/04/2025 11:19 AM EDT Pulse 75 02/04/2025 11:19 AM EDT Temperature 36.3 C (97.4 F) 11/06/2024 3:09 PM EDT Respiratory Rate 20 08/06/2024 3:55 PM EST Oxygen Saturation 95% 02/04/2025 11:19 AM EDT Inhaled Oxygen Concentration - - Weight 59 kg (130 lb) 02/04/2025 11:19 AM EDT Height 165.1 cm (5' 5 ) 02/04/2025 11:19 AM EDT Body Mass Index 21.63 02/04/2025 11:19 AM EDT Plan of Treatment Upcoming Encounters Date Type Department Care Team (Late st Contact Info) Description 11/03/2025 2:30 PM EDT Appointment [facility] Radiation Oncology [address] [place] [address] Deja Mendez [address] [facility] [place] [address] Health Maintenance Due Date Last Done Comments CT Colonography 1958 Colonoscopy 1958 Colorectal Cancer Screening 1958 FIT-DNA 1958 FIT 1958 FOBT 1960 Medicare Annual Wellness (AWV) 1960 Sigmoidoscopy 1960 COVID-19 Vaccine (3 - Pfizer risk series) 11/28/2020 10/31/2020, 10/10/2020 Influenza Vaccine (#1) 2025 , 04/15/2022, 05/02/2021, Additional history exists Fall Risk Screening 05/02/2025 05/02/2024 Depression Screening 02/04/2026 02/04/2025 Adult Tetanus 11/28/2027 11/27/2017 Pneumococcal Vaccine: 50+ [...] age to complete this topic Insurance MEDICARE Member Subscriber Plan / Payer (Ef fective 2023-Present) Name:Emeli Kaufman Member ID:[id number] Relation to Subscriber:Self Name:Eemli Kaufman Subscriber ID:[id number] Payer ID:[id number] Group ID:Not on file Type:Medicare Address: [facility] [address] [id number] GENERIC OTHER MEDICARE Advance Directives * Full Code (Latest Code Status on File) Date Activated Date Inactivated Comments 03/27/2024 2:21 AM 04/01/2024 7:56 PM Care Teams Sales Exec Relationship Specialty Start Date End Date Sabas Wagner MD [address] [facility] [place] [address] PCP - General 05/03/23 Deja Mendez [address] [place] [id number] Radiation Oncology 05/24/23 Stevie Fajardo MD [address] [place] [address] Pulmonary Disease 05/25/23 Sridhar Page [place], [place] [address] Referring Physician Medical Oncology 05/25/23
--- OUTSIDE RECORDS SUMMARY | 2025-02-26 12:51 | XMS_ITS | Clinical Summary ---
Author Organization [facility] Address [address] [address] Phone Care Team Providers Care Motorcycle Technician Name Role Phone Unavailable Primary Care Provider [...] 2008 Zoster Vaccines (1 of 2) 2008 Bone Density Scan 11/11/2023 COVID-19 Vaccine (1 - 2023-2 5 season) 2024 Influenza Vaccine (#1) 2025 RSV High Risk: (Elderly (60+ ) or Population) (1 - 1-dose 75+ series) 2033 HIB Vaccines Aged Out No longer eligi ble based on patient's age to complete this topic HPV Vaccines Aged Out No longer eligi ble based on patient's age to complete this topic Hepatitis A Vaccines Aged Out No long [...]
--- OUTSIDE RECORDS SUMMARY | 2025-02-26 12:51 | XMS_ITS | Encounter Summary ---
Author Organization [facility] Address [address] [place] [address] Care Team Providers Care Button Buttonhole Marker Name Role Phone Sabas Wagner MD Primary Care Provider [phone] Kem Block MD Unavailable [phone] Janell Reynolds MD Unavailable [phone] Deangelo Morales MD Unavailable [phone] Source Comments In the event this information is protected by the Federal Confidentiality of Alcohol and Drug AbusePatient Records regulations: The Federal rules restrict any use of the information to criminally investigate or prosecute any alcohol or drug abuse patient.[facility] Encounter Details Date Type Department Care Team (Latest Contact Info) Description 12/08/2024 [place] [address] Provider, [facility] Please complete Cardiovascular Surgery Questionnaires [...] is lower risk 3 02/20/2024 Data from: https://www.neighborhoodatlas.[facility]/. Last address used for calculation [id number] 02/20/2024 Comments No Sex and [...] 06/09/2025 7:15 AM EST Procedure Cardiology [address] [place] [address] est imaging 6 mo f/u per HVI order 06/09/2025 7:45 AM EST Office Visit Cardiology [address] [id number] Deangelo Morales MD [address] [id number] est imaging 6 mo f/u per HVI order documented as of this encounter Goals Goal Patient Goal Type Associated Problems Recent Progress Patient-Stated? Author Blood Pressure < 140/90 Blood Pressure 118/80( 025 10:57 AM EDT) No Janell Reynolds MD documented as of this encounter Visit Diagnoses Not on filedocumented in this encounter Care Teams Button Buttonhole Marker Relationship Specialty Start Date End Date Sabas Wagner MD PCP - General Family Medicine 09/09/10 Kem Block MD [address] [place] [address] Referring Cardiology 06/04/24 Janell Reynolds MD [address] [place] [address] Surgeon Cardiac Surg 06/05/24 Deangelo Morales MD [address] [place] [address] Primary Staff Physician Cardiology 07/11/24 documented as of this encounter
--- OUTSIDE RECORDS SUMMARY | 2025-02-26 12:51 | XMS_ITS | Patient Health Record ---
Author Organization [facility] [place] Address [address] [place] [address] Care Team Providers Care Marble Cleaner Name Role Phone Joselito Wagner Primary Care Provider Stevie Fajardo Unavailable [phone] Allergies No Known Allergies Results Component Value Reference Range Notes BNP Reviewed date:04/04/2024 04:42:14 PM Interpretation: Performing Lab: Notes/Report: [facility] , NT Pro B Type Natriuretic Pept 160.0 <=900.0 pg/mL Performing Lab: see note ML - The [facility] LB CBC AUTO DIFF Reviewed date:04/04/2024 04:42:15 PM Interpretation: Performing Lab: Notes/Report: [facility] , White Blood Count 8.8 4.0-11.0 10 3/uL Red Blood Count 3.47 4.20-5.40 10 6/uL Hemoglobin 10.4 12.0-16.0 g/dL Hematocrit 34.7 36.0-48.0 % Mean Corpuscular Volume 100.0 81.0-99.0 fL Mean Corpuscular Hemoglobin 30.0 26.7-34.0 pg Mean Corpuscular HGB Conc 30.0 29.9-35.2 g/dL Red Cell Distribution Width 15.5 11.0-15.0 % Platelet Count 359 150-450 10 3/uL Mean Platelet Volume 9.9 9.5-13.5 fL Neutrophils Percent Auto 77.9 43.0-75.0 % Lymphocytes Percent Auto 11.7 20.5-60.0 % Monocytes Percent Auto 7.6 1.7-12.0 % Eosinophils Percent Auto 1.8 0.9-7.0 % Basophils Percent Auto 0.5 0.2-2.0 % Immature Granulocytes Pct Auto 0.5 0.0-0.5 % Neutrophils Absolute Auto 6.9 1.4-6.5 10 3/uL Lymphocytes Absolute Auto 1.0 1.2-3.8 10 3/uL Monocytes Absolute Auto 0.7 0.3-0.8 10 3/uL Eosinophils Absolute Auto 0.2 0.0-0.7 10 3/uL Basophils Absolute Auto 0.0 0.0-0.1 10 3/uL Immature Granulocytes Abs Auto 0.04 0.00-0.03 10 3/uL Performing Lab: see note ML - [facility] LB PROF 14(COMP METB) Reviewed date:04/04/2024 04:42:15 PM Interpretation: Performing Lab: Notes/Report: [facility] , Sodium 137 136-145 mmol/L Potassium 4.1 3.5-5.1 mmol/L Chloride 100 98-107 mmol/L Carbon Dioxide 30.7 21.0-32.0 mmol/L Anion Gap 10.4 Glucose 95 74-106 mg/dL Blood Urea Nitrogen 37.0 7.0-18.0 mg/dL Creatinine 0.85 0.55-1.02 mg/dL Estimated GFR ( Geeta >60 >=60 Estimated GFR (Non- Greer >60 >=60 BUN Creatinine Ratio 43.5 Calcium 9.5 8.5-10.1 mg/dL Bilirubin Total 0.3 0.2-1.0 mg/dL Aspartate Amino Transferase 21 15-37 U/L Alanine Aminotransferase 17 14-59 U/L Alkaline Phosphatase 61 46-116 U/L Total Protein 8.0 6.4-8.2 g/dL Albumin Level 3.4 3.4-5.0 g/dL Globulin 4.6 Albumin Globulin Ratio 0.7 Performing Lab: see note ML - [facility] LB PTT Reviewed date:04/04/2024 04:42:15 PM Interpretation: Performing Lab: Notes/Report: [facility] , Partial Thromboplastin Time 26.8 22.3-36.2 sec Performing Lab: see note ML - [facility] LB XR ribs LT 2V Reviewed date:06/27/2024 06:45:51 PM Interpretation: Performing Lab: Notes/Report: Source Facility: [place] [address] [place] [address] XRay Report Signed Patient: EMELI KAUFMAN MR#: [id number] : 1960 Acct:[id number] Age/Sex: 63 / F ADM Date: 06/26/24 Loc: RAD Attending Dr: Brianna Wagner M.D. Ordering Physician: Brianna Wagner M.D. Date of Service: 06/26/24 Procedure(s): XR ribs LT 2V Accession Number(s): [id number] cc: Brianna Wagner M.D. [place] [address] Patient Name: EMELI KAUFMAN MRN: [id number] date: 1960 Sex: F Assigned Patient Location: [facility] Current Patient Location: Accession/Order Number: [id number] Exam Date: 06/26/2024 16:02 Report Date: 06/27/2024 07:27 At the request of: BRIANNA WAGNER Procedure: XR ribs LT 2V EXAMINATION: XR chest 2V, XR ribs LT 2V HISTORY: Rib Pain COMPARISON: 10/31/2023 FINDINGS: LUNGS: Moderate bibasilar parenchymal infiltrates, improved from the prior exam but of unknown etiology partially obscuring the hemidiaphragms PLEURA: No pneumothorax. Suspected small left pleural effusion MEDIASTINUM: No visible mass or adenopathy. CARDIAC: No cardiomegaly or cardiac silhouette abnormality. RIBS: No acute rib fracture OTHER: Negative. XR/XR ribs LT 2V IMPRESSION: Moderate bibasilar infiltrates of unknown etiology but improved from the prior exam No acute rib fracture Electronically authenticated by: AYAKA WU Date: 06/27/2024 07:27 Dictated By: Ayaka Wu M.D. Signed By: 06/27/24729 DD/ 6 TD/TT: Call Center Team Leader: The [address] [address] XRay Report Signed Patient: CONOR KAUFMAN MR#: [id number] : 1960 Acct:[id number] Age/Sex: 63 / F ADM Date: 06/26/24 Loc: RAD Attending Dr: Darrius Wagner M.D. Ordering Physician: Brianna Wagner M.D. Date of Service: 06/26/24 Procedure(s): XR rib s LT 2V Accession Number(s): [id number] cc: Brianna Wagner M.D. [address] [address] Patient Name: EMELI KAUFMAN MRN: [id number] date: 1960 Sex: F Assigned Patient Loc ation: RAD Current Patient Location: Accession/Order Numb er: [id number] Exam Date: 16:02 Report Date: 06/27/2024 07:27 At the request of: BRIANNA WAGNER Procedure: XR ribs LT 2V EXAMINATION: XR ches t 2V, XR ribs LT 2V HISTORY: Rib Pain COMPARISON: 10/31/2023 FINDINGS: LUNGS: Moderate biba silar parenchymal infiltrates, improved from the prior exam but of unknown etiol ogy partially obscuring the hemidiaphragms PLEURA: No pneumotho rax. Suspected small left pleural effusion MEDIASTINUM: No visi ble mass or adenopathy. CARDIAC: No cardiome krishna or cardiac silhouette abnormality. RIBS: No acute rib fracture OTHER: Negative. X R/XR ribs LT 2V IMPRESSION: Moderate bibasilar infiltrates of unknown etiology but improved from the prior exam No acute rib fracture Electronically authenticated by: AYAKA WU Date: 06/27/2024 07:27 Dictated By: Loc Wu M.D. Signed By: 06/27/24729 DD/ 6 TD/TT: Call Center Team Leader: Gram Stain Result Reviewed date:04/09/2024 08:00:38 AM Interpretation: Performing Lab: Notes/Report: [facility] , Gram Stain Result See Below For Report Gram Stain Result No white blood cells seen. Gram Stain Result No organisms seen Gram Stain Result No white blood cells seen. Performing Lab: see note LC - [facility] LB Lower Respiratory Culture Reviewed date:04/09/2024 08:00:35 AM Interpretation: Performing Lab: Notes/Report: [facility] , Lower Respiratory Culture See Below For Report Lower Respiratory Culture Routine respiratory mary Performing Lab: see note - [facility] LB Prothrombin Time INR Reviewed date:04/04/2024 04:42:14 PM Interpretation: Performing Lab: Notes/Report: [facility] , Prothrombin Time 10.6 9.0-11.6 sec INR 1.00 DESIRED INR: 2.0-3.0 CONDITIONS NOT LISTED BELOW 2.5-3.5 FOR PROSTHETIC HEART VALVE REPLACEMENT 2.5-3.5 RECURRENT THROMBOSIS Performing Lab: see note [facility] LB Manual Differential Reviewed date:04/16/2024 04:08:53 PM Interpretation: Performing Lab: Notes/Report: [facility] , Segmented Neutrophils % Manual 82.0 43.0-75.0 Lymphocytes Percent Manual 8.0 20.5-60.0 % Monocytes Percent Manual 10.0 1.7-12.0 % Eosinophils Percent Manual 0.0 0.9-7.0 % Basophils Percent Manual 0.0 0.2-2.0 % Segmented Neut Absolute Manual 6.64 1.4-6.5 10 3/uL Lymphocytes Absolute Manual 0.64 1.20-3.80 10 3/uL Monocytes Absolute Manual 0.81 0.30-0.80 10 3/uL Eosinophils Absolute Manual 0.00 0.00-0.70 10 3/uL Basophils Abs Manual 0.00 0.00-0.10 1 0 3/uL Performing Lab: see note - [facility] LB White Blood Cells Reviewed date:04/28/2024 07:03:23 PM Interpretation: Performing Lab: Notes/Report: [facility] , White Blood Cells See Below For Report White Blood Cells White Blood Cells Moderate White Blood Cells Performing Lab: see note LC - [facility] LB Epithelial Cells Reviewed date:04/28/2024 07:03:23 PM Interpretation: Performing Lab: Notes/Report: [facility] , Epithelial Cells See Below For Report Epithelial Cells Moderate Performing Lab: see note - [facility] LB Result 1 Reviewed date:04/28/2024 07:03:23 PM Interpretation: Performing Lab: Notes/Report: [facility] , Result 1 See Below For Report Result 1 Moderate number of gram positive rods. Performing Lab: see note LC - [facility] LB Result 2 Reviewed date:04/28/2024 07:03:23 PM Interpretation: Performing Lab: Notes/Report: [facility] , Result 2 See Below For Report Result 2 MOLD SHAKER Performing Lab: see note LC - [facility] LB Result 3 Reviewed date:04/28/2024 07:03:23 PM Interpretation: Performing Lab: Notes/Report: [facility] , Result 3 See Below For Report Result 3 MOLD SHAKER Performing Lab: see note LC - [facility] LB Result 4 Reviewed date:04/28/2024 07:03:23 PM Interpretation: Performing Lab: Notes/Report: [facility] , Result 4 See Below For Report Result 4 MOLD SHAKER Performing Lab: see note LC - [facility] LB Gram Stain Evaluation Reviewed date:04/28/2024 07:03:23 PM Interpretation: Performing Lab: Notes/Report: [facility] , Gram Stain Evaluation See Below For Report Gram Stain Evaluation This specimen is of good quality and is acceptable for routine Gram Stain Evaluation bacterial culture. Gram Stain Evaluation This specimen is of good quality and is acceptable for routine Performing Lab: see note LC - [facility] LB Lower Respiratory Culture Reviewed date:04/28/2024 07:03:23 PM Interpretation: Performing Lab: Notes/Report: [facility] , Lower Respiratory Culture See Below For Report Lower Respiratory Culture WILL FOLLOW Lower Respiratory Culture Routine respiratory mary Lower Respiratory Culture WILL FOLLOW Lower Respiratory Culture Performed at: [facility] Lower Respiratory Culture WILL FOLLOW Lower Respiratory Culture [address] [place] [phone] Lower Respiratory Culture WILL FOLLOW Lower Respiratory Culture Senior Technical Specialist: Shiva Emanuel PhD, Phone: [phone] Lower Respiratory Culture WILL FOLLOW Performing Lab: see note LC - [facility] LB SEE REPORT - Ticketing Agent Id information not found for OBX-specific promotions executive producer legend White Blood Cells Reviewed date:01/26/2025 04:05:59 PM Interpretation: Performing Lab: Notes/Report: [facility] , White Blood Cells See Below For Report White Blood Cells White Blood Cells Many White Blood Cells Performing Lab: see note LC - [facility] LB Epithelial Cells Reviewed date:01/26/2025 04:05:59 PM Interpretation: Performing Lab: Notes/Report: [facility] , Epithelial Cells See Below For Report Epithelial Cells Moderate Performing Lab: see note LC - [facility] LB Result 1 Reviewed date:01/26/2025 04:05:59 PM Interpretation: Performing Lab: Notes/Report: [facility] , Result 1 See Below For Report Result 1 Many gram positive rods. Performing Lab: see note LC - [facility] LB Result 2 Reviewed date:01/26/2025 04:05:59 PM Interpretation: Performing Lab: Notes/Report: [facility] , Result 2 See Below For Report Result 2 Many gram negative rods. Performing Lab: see note LC - [facility] LB Result 3 Reviewed date:01/26/2025 04:05:59 PM Interpretation: Performing Lab: Notes/Report: [facility] , Result 3 See Below For Report Result 3 Many gram positive cocci. Performing Lab: see note LC - [facility] LB Result 4 Reviewed date:01/26/2025 04:05:59 PM Interpretation: Performing Lab: Notes/Report: [facility] , Result 4 See Below For Report Result 4 MOLD SHAKER Performing Lab: see note LC - [facility] LB Gram Stain Evaluation Reviewed date:01/26/2025 04:05:59 PM Interpretation: Performing Lab: Notes/Report: [facility] , Gram Stain Evaluation See Below For Report Gram Stain Evaluation This specimen is of good quality and is acceptable for routine Gram Stain Evaluation bacterial culture. Gram Stain Evaluation This specimen is of good quality and is acceptable for routine Performing Lab: see note LC - [facility] LB Lower Respiratory Culture Reviewed date:01/26/2025 04:05:59 PM Interpretation: Performing Lab: Notes/Report: [facility] , Lower Respiratory Culture See Below For Report Lower Respiratory Culture WILL FOLLOW Lower Respiratory Culture Routine respiratory mary Lower Respiratory Culture WILL FOLLOW Lower Respiratory Culture Performed at: [facility] Lower Respiratory Culture WILL FOLLOW Lower Respiratory Culture [address], [place] [id number] Lower Respiratory Culture WILL FOLLOW Lower Respiratory Culture Senior Technical Specialist: Shiva Emanuel PhD, Phone: [phone] Lower Respiratory Culture WILL FOLLOW Performing Lab: see note LC - [facility] LB SEE REPORT - Ticketing Agent Id information not found for OBX-specific promotions executive producer legend XR chest 2V Reviewed date:06/27/2024 06:45:51 PM Interpretation: Performing Lab: Notes/Report: Source Facility: [place] [address] [place] [address] XRay Report Signed Patient: EMELI KAUFMAN MR#: [id number] : 1960 Acct:[id number] Age/Sex: 63 / F ADM Date: 06/26/24 Loc: RAD Attending Dr: Brianna Wagner M.D. Ordering Physician: Brianna Wagner M.D. Date of Service: 06/26/24 Procedure(s): XR chest 2V Accession Number(s): [id number] cc: Brianna Wagner M.D. [place] [address] Patient Name: EMELI KAUFMAN MRN: [id number] date: 1960 Sex: F Assigned Patient Location: [facility] Current Patient Location: Accession/Order Number: [id number] Exam Date: 06/26/2024 16:02 Report Date: 06/27/2024 07:27 At the request of: BRIANNA WAGNER Procedure: XR chest 2V EXAMINATION: XR chest 2V, XR ribs LT 2V HISTORY: Rib Pain COMPARISON: 10/31/2023 FINDINGS: LUNGS: Moderate bibasilar parenchymal infiltrates, improved from the prior exam but of unknown etiology partially obscuring the hemidiaphragms PLEURA: No pneumothorax. Suspected small left pleural effusion MEDIASTINUM: No visible mass or adenopathy. CARDIAC: No cardiomegaly or cardiac silhouette abnormality. RIBS: No acute rib fracture OTHER: Negative. XR/XR chest 2V IMPRESSION: Moderate bibasilar infiltrates of unknown etiology but improved from the prior exam No acute rib fracture Electronically authenticated by: AYAKA WU Date: 06/27/2024 07:27 Dictated By: Ayaka Wu M.D. Signed By: 06/27/24729 DD/ 6 TD/TT: Call Center Team Leader: [place] [address] XRay Report Signed Patient: CONOR KAUFMAN MR#: [id number] : 1960 Acct:[id number] Age/Sex: 63 / F ADM Date: 06/26/24 Loc: RAD Attending Dr: Darrius Wagner M.D. Ordering Physician: Brianna Wagner M.D. Date of Service: 06/26/24 Procedure(s): XR chest 2V Accession Number(s): [id number] cc: Brianna Wagner M.D. [place] [address] Patient Name: EMELI KAUFMAN MRN: [id number] date: 1960 Sex: F Assigned Patient Loc ation: [facility] Current Patient Location: Accession/Order Numb er: [id number] Exam Date: 16:02 Report Date: 06/27/2024 07:27 At the request of: BRIANNA WAGNER Procedure: XR chest 2V EXAMINATION: XR ches t 2V, XR ribs LT 2V HISTORY: Rib Pain COMPARISON: 10/31/2023 FINDINGS: LUNGS: Moderate biba silar parenchymal infiltrates, improved from the prior exam but of unknown etiol ogy partially obscuring the hemidiaphragms PLEURA: No pneumotho rax. Suspected small left pleural effusion MEDIASTINUM: No visi ble mass or adenopathy. CARDIAC: No cardiome krishna or cardiac silhouette abnormality. RIBS: No acute rib fracture OTHER: Negative. X R/XR chest 2V IMPRESSION: Moderate bibasilar infiltrates of unknown etiology but improved from the prior exam No acute rib fracture Electronically authenticated by: AYAKA WU Date: 06/27/2024 07:27 Dictated By: Loc Wu M.D. Signed By: 06/27/24729 DD/ 6 TD/TT: Call Center Team Leader: Lower Respiratory Culture Reviewed date:06/13/2024 06:25:07 PM Interpretation: Performing Lab: Notes/Report: [facility] , Lower Respiratory Culture See Below For Report Lower Respiratory Culture WILL FOLLOW Lower Respiratory Culture Specimen has been received and testing has been initiated. Lower Respiratory Culture WILL FOLLOW Lower Respiratory Culture Routine respiratory mary Lower Respiratory Culture WILL FOLLOW Lower Respiratory Culture Performed at: - [facility] [place] Lower Respiratory Culture WILL FOLLOW Lower Respiratory Culture [address], [place] [phone] Lower Respiratory Culture WILL FOLLOW Lower Respiratory Culture Senior Technical Specialist: Shiva Emanuel PhD, Phone: [phone] Lower Respiratory Culture WILL FOLLOW Performing Lab: see note LC - [facility] LB SEE REPORT - Ticketing Agent Id information not found for OBX-specific promotions executive producer legend Gram Stain Evaluation Reviewed date:06/13/2024 06:25:07 PM Interpretation: Performing Lab: Notes/Report: [facility] , Gram Stain Evaluation See Below For Report Gram Stain Evaluation This specimen is of good quality and is acceptable for routine Gram Stain Evaluation bacterial culture. Gram Stain Evaluation This specimen is of good quality and is acceptable for routine Performing Lab: see note LC - [facility] LB Result 4 Reviewed date:06/13/2024 06:25:07 PM Interpretation: Performing Lab: Notes/Report: [facility] , Result 4 See Below For Report Result 4 MOLD SHAKER Performing Lab: see note LC - [facility] LB Result 3 Reviewed date:06/13/2024 06:25:07 PM Interpretation: Performing Lab: Notes/Report: [facility] , Result 3 See Below For Report Result 3 MOLD SHAKER Performing Lab: see note LC - [facility] LB Result 2 Reviewed date:06/13/2024 06:25:07 PM Interpretation: Performing Lab: Notes/Report: [facility] , Result 2 See Below For Report Result 2 Few gram negative rods. Performing Lab: see note LC - [facility] LB Result 1 Reviewed date:06/13/2024 06:25:07 PM Interpretation: Performing Lab: Notes/Report: [facility] , Result 1 See Below For Report Result 1 Few gram positive cocci Performing Lab: see note LC - [facility] LB Epithelial Cells Reviewed date:06/13/2024 06:25:07 PM Interpretation: Performing Lab: Notes/Report: [facility] , Epithelial Cells See Below For Report Epithelial Cells Few Performing Lab: see note LC - [facility] LB White Blood Cells Reviewed date:06/13/2024 06:25:07 PM Interpretation: Performing Lab: Notes/Report: [facility] , White Blood Cells See Below For Report White Blood Cells White Blood Cells Moderate White Blood Cells Performing Lab: see note LC - [facility] LB CA echo doppler complete Reviewed date:04/24/2024 08:38:58 PM Interpretation: Performing Lab: Notes/Report: Source Facility: [facility] [place] [address] [place] [address] Cardiology Report Signed Patient: EMELI KAUFMAN MR#: [id number] : 1960 Acct:[id number] Age/Sex: 63 / F ADM Date: 04/24/24 Loc: CARD Attending Dr: Brianna Wagner M.D. Ordering Physician: Brianna Wagner M.D. Date of Service: 04/24/24 Procedure(s): CA echo doppler complete Accession Number(s): [id number] cc: Brianna Wagner M.D. Patient Name: EMELI KAUFMAN MR#: [id number] : 1960 Exam Date: 04/24/2024 Ordering Doctor: DR Brianna Wagner . ECHOCARDIOGRAM REPORT PROCEDURE: CA ECHO DOPPLER COMPLETE INDICATIONS: Chest pain COMPARISON: None. DESCRIPTION: COMPLETE ECHOCARDIOGRAM Real-time transthoracic echocardiography with 2D, M-mode, spectral and color flow Doppler performed. QUALITY: Technical quality was good. LEFT VENTRICLE: Normal chamber size. Thickened septal wall. LV EF: Global left ventricular systolic function is normal; visually estimated ejection fraction is 55 to 60%. DIASTOLIC: Diastolic function is indeterminate. ATRIAL SEPTUM: There is a circumscribed, sessile mass on the left atrial side of the intra-atrial septum; differential diagnosis includes lipomatous hypertrophy versus tumor versus thrombus. Further imaging (e.g. transesophageal echocardiography, cardiac CT or cardiac MRI) is recommended LEFT ATRIUM: Mild dilatation. RIGHT ATRIUM: Normal chamber size. RIGHT VENTRICLE: Normal chamber size. Normal right ventricular systolic function. TRICUSPID VALVE: Normal mobility and thickness. Moderate regurgitation. Doppler studies reveal moderately (45-60) elevated right sided pressures. RVSP 58 mmHg MITRAL VALVE: Normal mobility and thickness. No evidence of mitral valve stenosis. There is no mitral annular calcification. Mild mitral regurgitation. AORTIC VALVE: Normal trileaflet appearance. Mildly calcified aortic valve. Normal leaflet mobility. No evidence of aortic valve stenosis. Trivial aortic regurgitation. AORTIC ROOT: Normal diameter and appearance. Ascending aorta is normal in size. PULMONIC VALVE: Normal thickness and mobility. No stenosis. Trivial regurgitation. PERICARDIUM: Trivial pericardial effusion. IVC: IVC is normal in size, does not collapse. CONCLUSION: 1. Global left ventricular systolic function is normal; visually estimated ejection fraction is 55 to 60% 2. Normal right ventricular size and systolic function 3. The left atrium is mildly dilated 4. Moderate tricuspid regurgitation 5. Moderately elevated right ventricular systolic pressure; RVSP 58 mmHg 6. Mild mitral regurgitation 7. There is a circumscribed, echodense mass seen on the left atrial side of the intra-atrial septum; differential diagnosis includes lipomatous hypertrophy versus tumor versus thrombus Further imaging (e.g. transesophageal echocardiography, cardiac CT or cardiac MRI) is recommended Adult Echocardiography Procedure Report Left Ventricle LVEDD (3.7 - 5.6 cm): 4.51 cm LVESD (2.2 - 4.0 cm): 3.74 cm LVIVS thickness (0.6 - 1.2 cm): 1.07 cm LVPW thickness (0.5 - 1.0 cm): 0.75 cm e': 0.13 m/s E - e': 4.98 LVOT Max Gradient: 2.72 mm[Hg] LVOT Area (cm2): 0.82 m/s Peak Velocity (LVOT): 0.82 m/s Mean Velocity (LVOT): 0.55 m/s LVOT Diameter 1.93 cm Left Atrium LA Volume Index (2D A2C): 41.35 ml/m2 Left Atrium Systolic Dimension: 2.88 cm Mitral Valve MV E to A Ratio: 0.90, 1.03 Right Ventricle Aorta AO Root Diam: 2.63 cm Ascending Ao Diam: 2.97 cm Aortic Valve AoV Area (Peak Abisai): 1.52 cm2, 1.52 cm2 AoV Area (VTI): 1.43 cm2, 1.43 cm2 Peak Velocity(Antegrade Flow): 1.59 m/s, 1.55 m/s Peak Gradient(Antegrade Flow): 10.10 mm[Hg], 9.56 mm[Hg] Mean Velocity(Antegrade Flow): 1.09 m/s, 1.02 m/s Mean Gradient(Antegrade Flow): 5.51 mm[Hg], 4.85 mm[Hg] Velocity Time Integral: 34.55 cm, 33.12 cm Tricuspid Valve Peak Velocity (Regurgitant Flow): 3.51 m/s, 3.55 m/s, 3.17 m/s, 3.12 m/s Pulmonic Valve Mean Gradient: 1.86 mm[Hg] Mean Velocity: 0.64 m/s Peak Velocity: 0.99 m/s, 1.04 m/s Peak Gradient: 3.92 mm[Hg], 4.36 mm[Hg] Right Atrium Right Atrium Systolic Pressure: 36.20 ml, 36.20 ml Dictated by: Jennifer Pan M.D. on 04/24/2024 at 16:09 Approved by: Jennifer Pan M.D. on 04/24/2024 at 16:16 Dictated By: Jennifer Pan M.D. Signed By: 04/24/241616 DD/ 15 TD/TT: Call Center Team Leader: [place] [address] Cardiology Report Signed Patient: CONOR KAUFMAN MR#: [id number] : 1960 Acct:[id number] Age/Sex: 63 / F ADM Date: 04/24/24 Loc: CARD Attending Dr: Darrius Wagner M.D. Ordering Physician: Brianna Wagner M.D. Date of Service: 04/24/24 Procedure(s): CA ech o doppler complete Accession Number(s): [id number] cc: Brianna Wagner M.D. Patient Name: EMELI KAUFMAN MR#: [id number] : 1960 Exam Date: 04/24/2024 Ordering Doctor: DR Brianna Wagner . ECHOCARDIOGRAM REPORT PROCEDURE: CA ECHO D OPPLER COMPLETE INDICATIONS: Chest pain COMPARISON: None. DESCRIPTION: COMPLET E ECHOCARDIOGRAM Real-time transthoracic echocardiography wit h 2D, M-mode, spectral and color flow Doppler performed. QUALITY: Technical q uality was good. LEFT VENTRICLE: Norm al chamber size. Thickened septal wall. LV EF: Global left ventricular systolic function is normal; visually estimated ejection fraction is 55 to 60%. DIASTOLIC: Diastolic function is indeterminate. ATRIAL SEPTUM: There is a circumscribed, sessile mass on the left atrial side of the intra-at rial septum; differential diagnosis includes lipomatous hypertrophy versus t umor versus thrombus. Further imaging (e.g. transesophageal echocardiography, cardiac CT or cardiac MRI) is recommended LEFT ATRIUM: Mild dilatation. RIGHT ATRIUM: Normal chamber size. RIGHT VENTRICLE: Nor mal chamber size. Normal right ventricular systolic function. TRICUSPID VALVE: Nor mal mobility and thickness. Moderate regurgitation. Doppler studies reve al moderately (45-60) elevated right sided pressures. RVSP 58 mmHg MITRAL VALVE: Normal mobility and thickness. No evidence of mitral valve stenosis. There is n o mitral annular calcification. Mild mitral regurgitation. AORTIC VALVE: Normal trileaflet appearance. Mildly calcified aortic valve. Normal leaflet mobil ity. No evidence of aortic valve stenosis. Trivial aortic regurgitation. AORTIC ROOT: Normal diameter and appearance. Ascending aorta is normal in size. PULMONIC VALVE: Norm al thickness and mobility. No stenosis. Trivial regurgitation. PERICARDIUM: Trivial pericardial effusion. IVC: IVC is normal i n size, does not collapse. CONCLUSION: 1. Global left ventr icular systolic function is normal; visually estimated ejection fraction is 55 to 60% 2. Normal right ventricular size and systolic function 3. The left atrium i s mildly dilated 4. Moderate tricuspi d regurgitation 5. Moderately elevat ed right ventricular systolic pressure; RVSP 58 mmHg 6. Mild mitral regurgitation 7. There is a circumscribed, echodense mass seen on the left atrial side of the intra-atrial sep francisca; differential diagnosis includes lipomatous hypertrophy versus t umor versus thrombus Further imaging (e.g. transesophageal echocardiography, cardiac CT or cardiac MRI) is recommended Adult Echocardiograp hy Procedure Report Left Ventricle LVEDD (3.7 - 5.6 cm) : 4.51 cm LVESD (2.2 - 4.0 cm) : 3.74 cm LVIVS thickness (0.6 - 1.2 cm): 1.07 cm LVPW thickness (0.5 - 1.0 cm): 0.75 cm e': 0.13 m/s E - e': 4.98 LVOT Max Gradient: 2 .72 mm[Hg] LVOT Area (cm2): 0.82 m/s Peak Velocity (LVOT) : 0.82 m/s Mean Velocity (LVOT) : 0.55 m/s LVOT Diameter 1.93 cm Left Atrium LA Volume Index (2D A2C): 41.35 ml/m2 Left Atrium Systolic Dimension: 2.88 cm Mitral Valve MV E to A Ratio: 0.9 0, 1.03 Right Ventricle Aorta AO Root Diam: 2.63 cm Ascending Ao Diam: 2.97 cm Aortic Valve AoV Area (Peak Abisai): 1.52 cm2, 1.52 cm2 AoV Area (VTI): 1.43 cm2, 1.43 cm2 Peak Velocity(Antegr afshan Flow): 1.59 m/s, 1.55 m/s Peak Gradient(Antegr afshan Flow): 10.10 mm[Hg], 9.56 mm[Hg] Mean Velocity(Antegr afshan Flow): 1.09 m/s, 1.02 m/s Mean Gradient(Antegr afshan Flow): 5.51 mm[Hg], 4.85 mm[Hg] Velocity Time Integr al: 34.55 cm, 33.12 cm Tricuspid Valve Peak Velocity (Regur gitant Flow): 3.51 m/s, 3.55 m/s, 3.17 m/s, 3.12 m/s Pulmonic Valve Mean Gradient: 1.86 mm[Hg] Mean Velocity: 0.64 m/s Peak Velocity: 0.99 m/s, 1.04 m/s Peak Gradient: 3.92 mm[Hg], 4.36 mm[Hg] Right Atrium Right Atrium Systoli c Pressure: 36.20 ml, 36.20 ml Dictated by: Jennifer Pan M.D. on 04/24/2024 at 16:09 Approved by: Jennifer Pan M.D. on 04/24/2024 at 16:16 Dictated By: Jennifer Guerrero M.D. Signed By: 04/24/24 1617 DD/ 1616 TD/TT: Call Center Team Leader: Troponin I High Sensitivity Reviewed date:04/16/2024 04:08:53 PM Interpretation: Performing Lab: Notes/Report: [facility] , Troponin I High Sensitivity 4.4 4.0-51.3 pg/mL CUT-OFF POINTS HAVE BEEN ESTABLISHED BASED ON THE FOURTH UNIVERSAL DEFINITION OF MYOCARDIAL INFARCTION. THE UPPER REFERENCE LIMIT (URL) OF TROPONIN, DEFINED THE 99TH PERCENTILE OF cTnI DISTRIBUTION IN A REFERENCE POPULATION, HAS BEEN CONFIRMED THE DECISION THRESHOLD FOR MS DIAGNOSIS. 99TH PERCENTILE = 51.4 PG/ML NOTE: HIGH-SENSITIVITY TROPONIN ASSAY IS NOT INTENDED TO BE USED IN ISOLATION BUT SHOULD BE INTERPRETED IN CONJUNCTION WITH OTHER DIAGNOSTIC AND CLINICAL INFORMATION. Performing Lab: see note ML - [facility] US venous doppler LE BI Reviewed date:04/04/2024 04:42:14 PM Interpretation: Performing Lab: Notes/Report: Source Facility: [place] [address] [place] [address] Ultrasound Report Signed Patient: EMELI KAUFMAN MR#: [id number] : 1960 Acct:[id number] Age/Sex: 63 / F ADM Date: 04/04/24 Loc: LAB Attending Dr: Brianna Wagner M.D. Ordering Physician: Brianna Wagner M.D. Date of Service: 04/04/24 Procedure(s): US venous doppler LE BI Accession Number(s): [id number] cc: Brianna Wagner M.D. [place] [address] Patient Name: EMELI KAUFMAN MRN: [id number] date: 1960 Sex: F Assigned Patient Location: LAB Current Patient Location: LAB Accession/Order Number: [id number] Exam Date: 04/04/2024 12:18 Report Date: 04/04/2024 13:38 At the request of: BRIANNA WAGNER Procedure: US venous doppler LE BI CLINICAL DATA: Bilateral leg edema. PROCEDURE: Bilateral lower extremity venous duplex ultrasound TECHNIQUE: Rowland-scale, color flow, and waveform spectral analysis was performed of the bilateral lower extremities. FINDINGS: The bilateral common femoral, profunda femoral, femoral, and popliteal veins were compressible. The saphenous veins were compressible. No venous thrombosis was seen. The veins fill with color Doppler. Augmentation was normal. US/US venous doppler LE BI IMPRESSION: 1. No acute lower extremity deep venous thrombosis. 2. No superficial venous thrombosis. Electronically authenticated by: Charlie ALCANTAR Date: 04/04/2024 13:38 Dictated By: Charlei Alcantar M.D. Signed By: 04/04/24 1340 DD/ 37 TD/TT: Call Center Team Leader: [address] [address] Ultrasound Report Signed Patient: CONOR KAUFMAN MR#: [id number] : 1960 Acct:[id number] Age/Sex: 63 / F ADM Date: 04/04/24 Loc: LAB Attending Dr: Darrius Wagner M.D. Ordering Physician: Brianna Wagner M.D. Date of Service: 04/04/24 Procedure(s): US otilia ous doppler LE BI Accession Number(s): [id number] cc: Brianna Wagner M.D. [place] [id number] Patient Name: EMELI KAUFMAN MRN: [id number] date: 1960 Sex: F Assigned Patient Loc ation: LAB Current Patient Loca tion: LAB Accession/Order Numb er: [id number] Exam Date: 04/04/2024 12:18 Report Date: 04/04/2024 13:38 At the request of: BRIANNA WAGNER Procedure: US venous doppler LE BI CLINICAL DATA: Bilat eral leg edema. PROCEDURE: Bilateral lower extremity venous duplex ultrasound TECHNIQUE: Rowland-scal e, color flow, and waveform spectral analysis was performed of the bilateral low er extremities. FINDINGS: The bilate ral common femoral, profunda femoral, femoral, and popliteal veins were compressible. The saphenous veins were compressible. No venous thrombosis wa s seen. The veins fill with color Doppler. Augmentation was normal. U S/US venous doppler LE BI IMPRESSION: 1. No acute lower extremity deep venous thrombosis. 2. No superficial ve nous thrombosis. Electronically authenticated by: Charlie ALCANTAR Date: 04/04/2024 13:38 Dictated By: Charlie Alcantar M.D. Signed By: 04/04/24 1340 DD/ 37 TD/TT: Call Center Team Leader: XR chest 1V Reviewed date:03/27/2024 09:50:56 PM Interpretation: Performing Lab: Notes/Report: Source Facility: [address] [address] XRay Report Signed Patient: EMELI KAUFMAN MR#: [id number] : 1960 Acct:[id number] Age/Sex: 63 / F ADM Date: 03/26/24 Loc: ER Attending Dr: Ordering Physician: Roberto Verdin Date of Service: 03/26/24 Procedure(s): XR chest 1V Accession Number(s): [id number] cc: Roberto Verdin; Brianna Wagner M.D. [place] [address] Patient Name: EMELI KAUFMAN MRN: [id number] date: 1960 Sex: F Assigned Patient Location: ER Current Patient Location: ED.MAIN Accession/Order Number: [id number] Exam Date: 03/26/2024 23:48 Report Date: 03/27/2024 00:25 At the request of: ROBERTO VERDIN Procedure: XR chest 1V SINGLE VIEW CHEST: 03/26/2024 11:48 PM EDT CLINICAL HISTORY:intubation COMPARISONS: None. TECHNIQUE: Single frontal view of the chest, utilizing portable technique. Portable radiography should be considered a technically compromised study. Strongly consider dedicated PA and lateral chest radiographs, as clinically indicated. FINDINGS: LINES AND TUBES: Endotracheal tube tip in good position and clavicular head level approximately 5.1 cm above chanelle. External cardiac monitoring leads. CARDIAC SILHOUETTE: Within normal limits. MEDIASTINAL AND HILAR CONTOUR: Within normal limits. PULMONARY PARENCHYMA AND PLEURA: Widespread mixed alveolar infiltrates throughout right perihilar lower lobe and left lower lobe. Multifocal pneumonia with slight sparing of the upper lobes. No pneumothorax. No pleural effusion. OSSEOUS STRUCTURES:Nothing significant. OTHER COMMENTS:None. XR/XR chest 1V IMPRESSION: Bilateral multifocal pneumonia mostly lung bases greater on the right. Satisfactory endotracheal tube position. This report was generated with voice recognition software. Effort has been made to ensure accuracy of this report, however, occasional wording errors may persist. Please contact our office with any questions. Electronically authenticated by: RODOLFO BANG Date: 03/27/2024 00:25 Dictated By: Rodolfo Bang D.O. Signed By: 03/27/247 DD/ TD/TT: Call Center Team Leader: The [address] [address] XRay Report Signed Patient: CONOR KAUFMAN MR#: [id number] : 1960 Acct:[id number] Age/Sex: 63 / F ADM Date: 03/26/24 Loc: ER Attending Dr: Ordering Physician: Roberto Verdin Date of Service: 03/26/24 Procedure(s): XR chest 1V Accession Number(s): [id number] cc: Roberto Verdin; Brianna Wagner M.D. [place] [id number] Patient Name: EMELI KAUFMAN MRN: [id number] date: 1960 Sex: F Assigned Patient Loc ation: ER Current Patient Loca tion: ED.MAIN Accession/Order Numb er: [id number] Exam Date: 03/26/2024 23:48 Report Date: 03/27/2024 00:25 At the request of: ROBERTO VERDIN Procedure: XR chest 1V SINGLE VIEW CHEST: 03/26/2024 11:48 PM EDT CLINICAL HISTORY:intubation COMPARISONS: None. TECHNIQUE: Single fr ontal view of the chest, utilizing portable technique. Portable radiography should be considered a technically compromised study. Strongly consider dedicated PA and lateral chest radiographs, as clinically indicated. FINDINGS: LINES AND TUBES: Endotracheal tube tip in good position and clavicular head level approximately 5.1 cm above chanelle. External cardiac monitoring leads. CARDIAC SILHOUETTE: Within normal limits. MEDIASTINAL AND KIRILL R CONTOUR: Within normal limits. PULMONARY PARENCHYMA AND PLEURA: Widespread mixed alveolar infiltrates throughout right per ihilar lower lobe and left lower lobe. Multifocal pneumonia with slight sparing of the upper lobes. No pneumothorax. No pleural effusion. OSSEOUS STRUCTURES:N othing significant. OTHER COMMENTS:None. X R/XR chest 1V IMPRESSION: Bilateral multifocal pneumonia mostly lung bases greater on the right. Satisfactory endotra cheal tube position. This report was gene rated with voice recognition software. Effort has been made to ensure accuracy o f this report, however, occasional wording errors may persist. Please cont act our office with any questions. Electronically authenticated by: RODOLFO BANG Date: 03/27/2024 00:25 Dictated By: Rodolfo Bang D.O. Signed By: 03/27/247 DD/ TD/TT: Call Center Team Leader: ECG 12 lead Reviewed date:03/28/2024 09:37:25 PM Interpretation: Performing Lab: Notes/Report: Source Facility: [place] [address] [place] [address] Electrocardiograph Report Signed Patient: EMELI KAUFMAN MR#: [id number] : 1960 Acct:[id number] Age/Sex: 63 / F ADM Date: 03/26/24 Loc: ER Attending Dr: Ordering Physician: Roberto Verdin Date of Service: 03/27/24 Procedure(s): ECG 12 lead Accession Number(s): [id number] cc: [facility] Test Date: 2024-03-27 Pat Name: EMELI KAUFMAN Department: Room: - Gender: Female Educational Aide: : 1960 Requested By: 1031 Order Number: [id number] Reading MD: TYLER CESPEDES Measurements Intervals [place] Rate: 109 P: 90 WV: 114 QRS: 86 QRSD: 90 T: 270 QT: 330 QTc: 394 Interpretive Statements 1120 Sinus tachycardia 2210 Short WV interval 2420 RSR (QR) in lead V1/V2, consistent with right ventricular conduction delay [address] depression 4664 Twave abnormality, possible inferior ischemia 9150 abnormal ECG Electronically Signed On 03-28-2024 6:42:37 EDT by TYLER CESPEDES Dictated By: Tyler Cespedes D.O. Signed By: 03/28/24 0642 DD/ TD/TT: Call Center Team Leader: [place] [address] Electrocardiograph Report Signed Patient: CONOR KAUFMAN MR#: [id number] : 1960 Acct:[id number] Age/Sex: 63 / F ADM Date: 03/26/24 Loc: ER Attending Dr: Ordering Physician: Roberto Verdin Date of Service: 03/27/24 Procedure(s): ECG 12 lead Accession Number(s): [id number] cc: [facility] Test Date: 2024-03-27 Pat Name: EMELI APONTE Department: 70 Room: - Gender: Female Educational Aide: : 1960 Requ ested By: 1031 Order Number: [id number] Reading MD: TYLER CESPEDES Measurements Intervals [place] Rate: 109 P: 90 WV: 114 QRS: 86 QRSD: 90 T: 270 QT: 330 QTc: 394 Interpretive Statements 1120 Sinus tachycardia 2210 Short WV interval 2420 RSR (QR) in lucia d V1/V2, consistent with right ventricular conduction delay [address] depression 4664 Twave abnormali ty, possible inferior ischemia 9150 abnormal ECG Electronically Marianela d On 03-28-2024 6:42:37 EDT by TYLER CESPEDES Dictated By: Venancio Cespedes D.O. Signed By: 03/28/24 0642 DD/ 0040 TD/TT: Call Center Team Leader: BLOOD GASES BTY Reviewed date:03/27/2024 09:50:56 PM Interpretation: Performing Lab: Notes/Report: [facility] , pH ABG 7.215 7.350-7.450 RESULTS CALLED TO REDD RINCON CARE MANAGEMENT COORDINATOR at 0010 ABG PCO2 60.9 35.0-45.0 mmHg RESULTS BEVERLY D TO REDD RINCON RRT at 0010 PO2 ABG 62.6 80.0-100.0 mmHg HCO3 ABG 24.6 22.0-26.0 mmol/L Base Excess ABG -3.2 -2.0-2.0 mmol/L Oxygen Saturation ABG 84.6 Calin Test POSITIVE POSITIVE O2 Mode PPV Liters per Minute 15 Fractionated Inspired Oxygen 100 Puncture Site RTFEM Performing Lab: see note ML - [facility] Manual Differential Reviewed date:03/27/2024 09:50:56 PM Interpretation: Performing Lab: Notes/Report: [facility] , Segmented Neutrophils % Manual 53.0 43.0-75.0 Lymphocytes Percent Manual 34.0 20.5-60.0 % Monocytes Percent Manual 10.0 1.7-12.0 % Eosinophils Percent Manual 3.0 0.9-7.0 % Basophils Percent Manual 0.0 0.2-2.0 % Segmented Neut Absolute Manual 8.26 1.4-6.5 10 3/uL Lymphocytes Absolute Manual 5.30 1.20-3.80 10 3/uL Monocytes Absolute Manual 1.56 0.30-0.80 10 3/uL Eosinophils Absolute Manual 0.46 0.00-0.70 10 3/uL Basophils Abs Manual 0.00 0.00-0.10 1 0 3/uL Performing Lab: see note - [facility] CBC AUTO DIFF Reviewed date:03/27/2024 09:50:56 PM Interpretation: Performing Lab: Notes/Report: [facility] , White Blood Count 15.6 4.0-11.0 10 3/uL Red Blood Count 3.42 4.20-5.40 10 6/uL Hemoglobin 10.2 12.0-16.0 g/dL Hematocrit 33.8 36.0-48.0 % Mean Corpuscular Volume 98.8 81.0-99.0 fL Mean Corpuscular Hemoglobin 29.8 26.7-34.0 pg Mean Corpuscular HGB Conc 30.2 29.9-35.2 g/dL Red Cell Distribution Width 15.2 11.0-15.0 % Platelet Count 576 150-450 10 3/uL Mean Platelet Volume 10.6 9.5-13.5 fL Performing Lab: see note - [facility] LB AFB Specimen Processing Reviewed date:04/27/2024 09:42:33 PM Interpretation: Performing Lab: Notes/Report: [facility] , AFB Specimen Processing See Below For Report AFB Specimen Processing AFB Specimen Processing Concentration AFB Specimen Processing Performing Lab: see note - [facility] Fungus (Mycology) Culture Reviewed date:04/16/2024 07:51:22 AM Interpretation: Performing Lab: Notes/Report: [facility] , Fungus (Mycology) Culture See Below For Report Fungus (Mycology) Culture Fungus (Mycology) Culture Culture Report: Fungus (Mycology) Culture Fungus (Mycology) Culture The specimen submitted for fungus culture has been received and Fungus (Mycology) Culture Fungus (Mycology) Culture culture has been initiated. Fungus (Mycology) Culture Fungus (Mycology) Culture No yeast or mold isolated after 4 weeks. Fungus (Mycology) Culture Fungus (Mycology) Culture Performed at: [facility] Fungus (Mycology) Culture Fungus (Mycology) Culture [address], [place] [id number] Fungus (Mycology) Culture Fungus (Mycology) Culture Senior Technical Specialist: Shiva Emanuel PhD, Phone: [phone] Fungus (Mycology) Culture Performing Lab: see note - [facility] SEE REPORT - Ticketing Agent Id information not found for OBX-specific promotions executive producer legend Fungus Stain Reviewed date:04/16/2024 07:51:20 AM Interpretation: Performing Lab: Notes/Report: [facility] , Fungus Stain See Below For Report Fungus Stain Fungus Stain ALVIN/Calcofluor preparation: no fungus observed. Fungus Stain Performing Lab: [facility] Prothrombin Time INR Reviewed date:03/19/2024 07:19:16 AM Interpretation: Performing Lab: Notes/Report: [facility] , Prothrombin Time 10.9 9.0-11.6 sec INR 1.03 DESIRED INR: 2.0-3.0 CONDITIONS NOT LISTED BELOW 2.5-3.5 FOR PROSTHETIC HEART VALVE REPLACEMENT 2.5-3.5 RECURRENT THROMBOSIS Performing Lab: see note - [facility] LB Acid Fast Culture Reviewed date:04/27/2024 09:42:33 PM Interpretation: Performing Lab: Notes/Report: [facility] , Acid Fast Culture See Below For Report Acid Fast Culture Specimen has been received and testing has been initiated. Acid Fast Culture Negative Acid Fast Culture Specimen has been received and testing has been initiated. Acid Fast Culture No acid fast bacilli isolated after 6 weeks. Acid Fast Culture Specimen has been received and testing has been initiated. Acid Fast Culture Performed at: [facility] Acid Fast Culture Specimen has been received and testing has been initiated. Acid Fast Culture [address] [place], [place] [id number] Acid Fast Culture Specimen has been received and testing has been initiated. Acid Fast Culture Senior Technical Specialist: Mana Emanuel PhD, Phone: [phone] Acid Fast Culture Specimen has been received and testing has been initiated. Performing Lab: see note LC - [facility] SEE REPORT - Ticketing Agent Id information not found for OBX-specific promotions executive producer legend Acid Fast Smear Reviewed date:04/27/2024 09:42:33 PM Interpretation: Performing Lab: Notes/Report: [facility] , Acid Fast Smear See Below For Report Acid Fast Smear Negative Performing Lab: see note LC - [facility] LB AFB Specimen Processing Reviewed date:03/19/2024 07:18:52 AM Interpretation: Performing Lab: Notes/Report: [facility] , AFB Specimen Processing See Below For Report AFB Specimen Processing AFB Specimen Processing Concentration AFB Specimen Processing Performing Lab: see note LC - [facility] LB PTT Reviewed date:03/19/2024 07:19:09 AM Interpretation: Performing Lab: Notes/Report: [facility] , Partial Thromboplastin Time 29.3 22.3-36.2 sec Performing Lab: see note - [facility] LB PROF 14(COMP METB) Reviewed date:03/19/2024 07:19:05 AM Interpretation: Performing Lab: Notes/Report: [facility] , Sodium 141 136-145 mmol/L Potassium 4.2 3.5-5.1 mmol/L Chloride 108 98-107 mmol/L Carbon Dioxide 25.4 21.0-32.0 mmol/L Anion Gap 11.8 Glucose 106 74-106 mg/dL Blood Urea Nitrogen 19.0 7.0-18.0 mg/dL Creatinine 0.63 0.55-1.02 mg/dL Estimated GFR ( Geeta >60 >=60 Estimated GFR (Non- Greer >60 >=60 BUN Creatinine Ratio 30.2 Calcium 8.2 8.5-10.1 mg/dL Bilirubin Total 0.2 0.2-1.0 mg/dL Aspartate Amino Transferase 17 15-37 U/L Alanine Aminotransferase 14 14-59 U/L Alkaline Phosphatase 41 46-116 U/L Total Protein 6.0 6.4-8.2 g/dL Albumin Level 2.4 3.4-5.0 g/dL Globulin 3.6 Albumin Globulin Ratio 0.7 Performing Lab: see note ML - [facility] LB CBC AUTO DIFF Reviewed date:03/19/2024 07:19:25 AM Interpretation: Performing Lab: Notes/Report: [facility] , White Blood Count 6.8 4.0-11.0 10 3/uL Red Blood Count 3.28 4.20-5.40 10 6/uL Hemoglobin 9.8 12.0-16.0 g/dL Hematocrit 31.3 36.0-48.0 % Mean Corpuscular Volume 95.4 81.0-99.0 fL Mean Corpuscular Hemoglobin 29.9 26.7-34.0 pg Mean Corpuscular HGB Conc 31.3 29.9-35.2 g/dL Red Cell Distribution Width 14.6 11.0-15.0 % Platelet Count 243 150-450 10 3/uL Mean Platelet Volume 9.1 9.5-13.5 fL Neutrophils Percent Auto 74.0 43.0-75.0 % Lymphocytes Percent Auto 13.5 20.5-60.0 % Monocytes Percent Auto 10.2 1.7-12.0 % Eosinophils Percent Auto 1.3 0.9-7.0 % Basophils Percent Auto 0.7 0.2-2.0 % Immature Granulocytes Pct Auto 0.3 0.0-0.5 % Neutrophils Absolute Auto 5.0 1.4-6.5 10 3/uL Lymphocytes Absolute Auto 0.9 1.2-3.8 10 3/uL Monocytes Absolute Auto 0.7 0.3-0.8 10 3/uL Eosinophils Absolute Auto 0.1 0.0-0.7 10 3/uL Basophils Absolute Auto 0.1 0.0-0.1 10 3/uL Immature Granulocytes Abs Auto 0.02 0.00-0.03 10 3/uL Performing Lab: see note ML - [facility] ECG 12 lead Reviewed date:03/13/2024 07:13:26 AM Interpretation: Performing Lab: Notes/Report: Source Facility: [place] [address] [place] [address] Electrocardiograph Report Signed Patient: EMELI KAUFMAN MR#: [id number] : 1960 Acct:[id number] Age/Sex: 63 / F ADM Date: 03/08/24 Loc: PST Attending Dr: Stevie Fajardo D.O. Ordering Physician: Stevie Fajardo D.O. Date of Service: 03/08/24 Procedure(s): ECG 12 lead Accession Number(s): [id number] cc: [facility] Test Date: 2024-03-08 Pat Name: EMELI KAUFMAN Department: Room: - Gender: Female Educational Aide: : 1960 Requested By: Stevie Fajardo Order Number: [id number] Reading MD: TYLER CESPEDES Measurements Intervals [place] Rate: 85 P: 76 WV: 132 QRS: 63 QRSD: 84 T: 35 QT: 364 QTc: 435 Interpretive Statements SINUS RHYTHM POSSIBLE RIGHT VENTRICULAR CONDUCTION DELAY [RSR (QR) IN V1/V2] MODERATE ST DEPRESSION [0.05+ mV ST DEPRESSION] nt Electronically Signed On 03-12-2024 22:18:55 EDT by TYLER CESPEDES Dictated By: Tyler Cespedes D.O. Signed By: 03/12/242218 DD/ 1324 TD/TT: Call Center Team Leader: [place] [address] Electrocardiograph Report Signed Patient: CONOR KAUFMAN MR#: [id number] : 1960 Acct:[id number] Age/Sex: 63 / F ADM Date: 03/08/24 Loc: PST Attending Dr: Stevie Fajardo D.O. Ordering Physician: Stevie Fajardo D.O. Date of Service: 03/08/24 Procedure(s): ECG 12 lead Accession Number(s): [id number] cc: [facility] Test Date: 2024-03-08 Pat Name: EMELI JARQUIN ANNA MARIEMANOHAR Department: 70 Room: - Gender: Female Educational Aide: : 1960 Requ ested By: Stevie Fajardo Order Number: [id number] Reading MD: TYLER CESPEDES Measurements Intervals [place] Rate: 85 P: 76 WV: 132 QRS: 63 QRSD: 84 T: 35 QT: 364 QTc: 435 Interpretive Statements SINUS RHYTHM POSSIBLE RIGHT VENTR ICULAR CONDUCTION DELAY [RSR (QR) IN V1/V2] MODERATE ST DEPRESSI ON [0.05+ mV ST DEPRESSION] nt Electronically Marianela d On 03-12-2024 22:18:55 EDT by TYLER CESPEDES Dictated By: Ball,Be njamin D.O. Signed By: 03/12/240 DD/ 9407 TD/TT: Call Center Team Leader: PROF Amin(COMP METB) Reviewed date:04/16/2024 04:08:53 PM Interpretation: Performing Lab: Notes/Report: [facility] , Sodium 132 136-145 mmol/L Potassium 4.0 3.5-5.1 mmol/L Chloride 98 98-107 mmol/L Carbon Dioxide 25.8 21.0-32.0 mmol/L Anion Gap 12.2 Glucose 104 74-106 mg/dL Blood Urea Nitrogen 15.0 7.0-18.0 mg/dL Creatinine 0.76 0.55-1.02 mg/dL Estimated GFR ( Geeta >60 >=60 Estimated GFR (Non- Greer >60 >=60 BUN Creatinine Ratio 19.7 Calcium 9.4 8.5-10.1 mg/dL Bilirubin Total 0.3 0.2-1.0 mg/dL Aspartate Amino Transferase 16 15-37 U/L Alanine Aminotransferase 18 14-59 U/L Alkaline Phosphatase 64 46-116 U/L Total Protein 8.4 6.4-8.2 g/dL Albumin Level 2.7 3.4-5.0 g/dL Globulin 5.7 Albumin Globulin Ratio 0.5 Performing Lab: see note ML - [facility] LB CBC AUTO DIFF Reviewed date:04/16/2024 04:08:53 PM Interpretation: Performing Lab: Notes/Report: [facility] , White Blood Count 8.1 4.0-11.0 10 3/uL Red Blood Count 3.53 4.20-5.40 10 6/uL Hemoglobin 10.2 12.0-16.0 g/dL Hematocrit 32.9 36.0-48.0 % Mean Corpuscular Volume 93.2 81.0-99.0 fL Mean Corpuscular Hemoglobin 28.9 26.7-34.0 pg Mean Corpuscular HGB Conc 31.0 29.9-35.2 g/dL Red Cell Distribution Width 14.9 11.0-15.0 % Platelet Count 390 150-450 10 3/uL Mean Platelet Volume 9.3 9.5-13.5 fL Performing Lab: see note ML - [facility] LB BNP Reviewed date:04/16/2024 04:08:53 PM Interpretation: Performing Lab: Notes/Report: [facility] , NT Pro B Type Natriuretic Pept 355.0 <=900.0 pg/mL Performing Lab: see note ML - [facility] Reason For Referral Diagnosis 1 Mass in chest (R22.2 ) Referral Organization [facility] Medicine Referring Provider First Name Joselito Referring Provider Last Name Bernard Referring Provider Speciality [facility] maureen Referred Provider [facility] Specialty Cardiology Referral Priority Routine Medications Medication SIG (Take, Route, Frequency, Duration) Notes Start Date End Date Status Sodium Chloride 0.9 % 3mL Inhalation TID for 30 days Active Vitamin D 50 MCG (1999 UT) 1 capsule Orally Once a day Active Compression Stocking Thigh 30-40mmHg - daily for 365 days 04/16/2024 Not- Taking Latanoprost 0.005 % 1 drop into affected eye in the evening Ophthalmic Once a day Active Letrozole 2.5 MG 1 tablet Orally Once a day for 90 days Active Metoprolol Tartrate 25 MG 1/2 tablet wit h food Orally Twice a day 10/03/2024 Active Albuterol Sulfate (2.5 MG/3ML) 0.083% 3 mL as needed Inhalation every 6 hours 10/03/2024 Active Alendronate Sodium 70 MG 1 tablet 30 min utes before the first food, beverage or medicine of the day with plain water Oral once weekly for 84 days Active Calcium Carbonate 1250 (500 Ca) MG 1 tablet with food Orally once daily 10/03/2024 Active [facility] Spect[facility]ite Women - TAKE 1 TABLET DA JONI WITH BREAKFAST Oral for 30 Days Active Immunizations Vaccine Route Administration Date Status Comme nts Arexvy Unknown 06/30/2023 Administered Flu, Fluad (74987) 65 yrs and older, single-dose syringe (4306-7693) IM Intramuscular 06/06/2024 Administered Flu, Flucelvax (66351) 2 yrs+, single-dose syringe (4205-6236) Unknown 06/27/2023 Administered Flu, Fluzone (42510) 6 mos+, single-dose syringe/vial (8113-0399) Unknown 04/15/2022 Administered Pneumococcal (Prevnar 13) Unknown 07/14/2014 Administer ed Pneumococcal (Prevnar 20) Unknown 06/30/2023 Administer ed SARS-COV-2 (COVID 19 Pfizer 30mcg/0.3mL) Unknown 10/10/2020 Administered SARS-COV-2 (COVID 19 Pfizer 30mcg/0.3mL) Unknown 10/31/2020 Administered Tdap (Boostrix) Unknown 11/27/2017 Administered ZOSTER (SHINGLES) VACCINE (HZV) Unknown 10/03/2024 Administered Social History Tobacco Use: Social History Observation Description Date Details (start date - stop date) Never Smoker NA - NA Tobacco Control (Standard) Question Answer Notes Tobacco use: Nonsmoker AUDIT-C (Standard) Question Answer Notes Did you have a drink containing alcohol in the p ast year? No Points 0 Interpretation Negative Problems Problem Type SNOMED Code ICD Code Onset Dates Problem Status W/U Status Risk Notes Problem [id number] Malignant neoplasm of unspecified site of left female breast (C50.912) Active confirmed Problem Bronchiolectasis (25905068) Bronchiectasis, uncomplicated (J47.9) Active confirmed Problem Migraine variant with headache (disorder) (660977227) Migraine headache (G43.909) Active confirmed Problem Gastroesophageal reflux disease (752303639) GERD (gastroesophagea l reflux disease) (K21.9) Active confirmed Problem Pulmonary embolism (36135834) Pulmonary embolism (I26.99) Active confirmed Problem Neurogenic bladder (520628363) Neurogenic bladder (N31.9) Active confirmed Problem Multiple tracheobronchial mucus plugs (disorder) (125190343) Mucus plugging of bronchi (J98.09) Active confirmed Problem Rib pain (468943990) Rib pain (R07.81) Active confirmed Problem Multiple sclerosis (42860912) Multiple sclerosis (G35) Active confirmed Problem Dextroscoliosis (749625241271215) Dextroscoliosis (M41.80) Active confirmed Problem Neoplasm of heart (disorder) (759854482) Cardiac mass (I51.89) Active confirmed Problem Vocal cord palsy (disorder) (875953883) Paralysis of vocal cords or larynx, 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) Active confirmed Problem History of infectious disease (295315179) 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 Problem Septal myocardial infarction (I21.29) Active confirmed Problem History of infectious disease (429416594) History of fungal infection (Z86.19) Active confirmed Cryptococcus Problem Hemoptysis (44990355) Massive hemoptysis (R04.2) Active confirmed Problem History of COVID-19 (40679908143036803 5) History of COVID-19 (Z86.16) Active confirmed Problem Pericardial effusion (712744904) Pericardial effusion (I31.39) Active confirmed Vital Signs Heart Rate 79 /min 10/22/2024 Temperature 96.8 degrees Fahrenheit 10/22/2024 Respiratory Rate 18 /min 10/22/2024 Blood pressure diastolic 74 mm Hg 10/22/2024 Oximetry 94 % 10/22/2024 Height 65 in 10/22/2024 Blood pressure systolic 129 mm Hg 10/22/2024 Weight 137.8 lbs 10/22/2024 BMI 22.93 kg/m2 10/22/2024 Procedures Procedure Date Ordered Date Performed Result Body Sit e Bronchoscopy (DX Bronchoscope/Lavage) 03/06/2024 N/A EKG w Interp & Report - performed 04/16/2024 N/ A CARDIO Echocardiogram 04/16/2024 N/A Encounters Encounter Location Date Provider Diagnosis [address] [address] 04/04/2024 Joselito Hoy Bronchiectasis, uncomplicated J47.9 ; Pericardial effusion I31.39 and Edema R60.[address] [address] 04/16/2024 Joselito Hoy Chest pain R07.[address] [address] 06/06/2024 Joselito Hoy Encounter for immunization Z23 ; Bronchiectasis, uncomplicated J47.9 ; Chest pain R07.9 and Sinus tachycardia R00.[address] [address] 06/26/2024 Joselito Hoy Rib pain R07.[address] [address] 10/03/2024 Joselito Hoy Bronchiectasis, uncomplicated J47.9 [facility] [address] [place] [address] 10/22/2024 Stevie Fajardo Bronchiectasis, uncomplicated J47.9 ; Mucus plugging of bronchi J98.09 ; Paralysis of vocal cords or larynx, unspecified J38.00 ; Pulmonary embolism I26.99 ; History of Mycobacterium avium complex infection Z86.19 ; History of fungal infection Z86.19 and History of COVID-19 Z86.16 [facility] [address] [place] [address] 03/06/2024 Stevie Fajardo Bronchiectasis, uncomplicated J47.9 ; Mucus plugging of bronchi J98.09 ; History of Mycobacterium avium complex infection Z86.19 ; History of fungal infection Z86.19 and History of COVID-19 Z86.16 [facility] [address] [place] [address] 03/14/2024 [facility] [address] [place] [address] 04/23/2024 [facility] Bronchiectasis, uncomplicated J47.9 ; Massive hemoptysis R04.2 ; Mucus plugging of bronchi J98.09 ; Paralysis of vocal cords or larynx, unspecified J38.00 ; Pulmonary embolism I26.99 ; Malignant neoplasm of unspecified site of left female breast C50.912 ; History of Mycobacterium avium complex infection Z86.19 ; History of fungal infection Z86.19 and History of COVID-19 Z86.16 [facility] [address] [place] [address] 03/07/2024 [facility] [address] [place] [address] 03/28/2024 [facility] [address] [place] [address] 04/02/2024 [facility] [address] [place] [address] 04/04/2024 [facility] [address] [place] [address] 04/16/2024 Joselito [facility] [address] [place] [address] 04/24/2024 Joselito Hoy Mass in chest R22.2 [facility] [address] [facility] [place] [address] 04/24/[address] [facility] [address] [facility] [place] [place] [address] 06/06/[address] [facility] [address] [place] [address] 06/21/[address] [facility] [address] [facility] [address] 06/27/2024 Joselito graham [facility] [address] [facility] [place] [address] 08/28/[address] [facility] [address] [facility] [place] [address] 10/03/[address] [facility] [address] [facility] [address] 01/20/2025 [address] Cough R[address].9 [facility] [address] [facility] [place] [address] 01/29/[address] [facility] [address] [facility] [place] [address] 02/26/2025 Joselito Hoy Pneumonia, unspecifi ed organism J18.9 Assessments Encounter Date Diagnosis (ICD Code) Assessment Notes Treatment Notes Treatment Clinical Notes Section Notes 04/23/2024 Bronchiectasis, uncomplicated (ICD-10 - J47.9) Patient had several bronchoscopies after the massive hemoptysis for clearance of secretions. She was recently on Levaquin and Lasix, which since that time her breathing has been well without significant productive cough. Today is likely one of the best days I have ever heard her on examination. I recommended she continue with saline nebs for now, but hold off on her PEP and the vest until she is seen by interventional pulmonology; I am avoiding any physical irritation for the short-term due to the hemoptysis. 04/23/2024 Massive hemoptysis (ICD-10 - R04.2) Occurred after bronchoscopy 03/14/2024 performed for clearance of secretions associated with bronchiectasis, requiring transfer to [facility] for further evaluation.Had second episode 03/26/2024 which was attributed to Eliquis. Exact location of the hemoptysis has not been identified, though it is somewhere in the right middle lobe region. She has not had any further hemoptysis since after stopping Eliquis. Discussed with the patient and her that I am unsure if she would have a future spontaneous event. Patient was strongly advised to follow-up with interventional pulmonology at her scheduled appointment 04/16/2024 Chest pain (ICD-10 - R07.9) 10/22/2024 Bronchiectasis, uncomplicated (ICD-10 - J47.9) Secretions are currently being managed with vest, PEP device, and saline nebs. Her recent open heart/thoracic surgery was not a contraindication to continuing to use the vest according to her thoracic surgeon. Patient was encouraged to keep up with her pulmonary toilet to avoid further mucous plugging and development of infections. [id number] was performed today regarding need for nebulizer and nebulizer supplies. Patient requires saline nebs which is available only in nebulized form for the purpose of bronchiectasis. Additionally, [id number] was performed today regarding need for vest. Patient is keeping up with vest. She was encouraged to use it twice daily as instructed to promote a good pulmonary toilet. She denies any issues with pain or irritation with use after surgery. Deferring any further bronchoscopic management to [facility] regarding any biopsies; I do not have the tools available here at [facility] to adequately treat her outside of a bronchoscopy for clearance of secretions. 10/22/2024 Mucus plugging of bronchi (ICD-10 - J98.09) Continue with a good pulmonary toilet. 03/06/2024 Bronchiectasis, uncomplicated (ICD-10 - J47.9) Last bronchoscopy on 03/30/2023. Despite using her PAP, saline nebs, and vest, she continues to have a daily productive cough with difficulty of clearance of secretions. Seems to be exacerbated after barron COVID again in January. Patient is already required a bronchoscopy on 03/30/2023 for clearance of secretions. I discussed that this is an option at this current time as she [place] for pulmonary toilet. Her states that she appears tired and is downplaying her symptoms, and I agree. After discussing pros and cons of options, including no change in therapy, versus bronchoscopy, the patient voiced agreement to proceed with the bronchoscopy. Discussed risks of bronchoscopy with the patient in order to obtain informed consent, including, but not limited to: pain, aspiration of gastric contents, hemoptysis (from mild to massive hemorrhage), infection, hoarseness (with rare risk of temporary or permanent vocal cord damage/paralysis), pneumothorax (~5%) which may require chest tube placement, acute respiratory failure with need for non-invasive or invasive ventilation (temporary to long-term), ICU observation/admissi on, , a non-diagnostic study, or any other unforeseen complication. Risks of general anesthesia were deferred to the anesthesia department. Will plan on bronchoscopy with bronchoalveolar lavage to clear secretions and mucous plugs. Patient will require preadmission testing. We will contact OR scheduling tomorrow as they are closed at this time. Follow-up 2 weeks after bronchoscopy to review results. 03/06/2024 Mucus plugging of bronchi (ICD-10 - J98.09) History of mucous plugging in the past. She is having more difficulty with clearing secretions, I am very concerned that this is occurring again. Chest x-ray in October did show increased infiltrates without a positive sputum culture. She is very weak and does not appear to have enough of cough to clear her secretions. I recommended bronchoscopy for clearance of secretions. Consent was obtained. 06/06/2024 Encounter for immunization (ICD-10 - Z23) 06/06/2024 Bronchiectasis, uncomplicated (ICD-10 - J47.9) 06/26/2024 Rib pain (ICD-10 - R07.81) 10/03/2024 Bronchiectasis, uncomplicated (ICD-10 - J47.9) 04/24/2024 Mass in chest (ICD-10 - R22.2) 01/20/2025 Cough (ICD-10 - R05.9) 02/26/2025 Pneumonia, unspecified organism (ICD-10 - J18.9) 04/04/2024 Bronchiectasis, uncomplicated (ICD-10 - J47.9) 04/04/2024 Pericardial effusion (ICD-10 - I31.39) 04/04/2024 Edema (ICD-10 - R60.9) 06/06/2024 Chest pain (ICD-10 - R07.9) 03/06/2024 History of Mycobacterium avium complex infection (ICD-10 - Z86.19) No EVAN growth on most recent bronchoscopy. Not checking sputum for AFB as bronchoscopy was negative for it. 10/22/2024 Paralysis of vocal cords or larynx, unspecified (ICD-10 - J38.00) History of vocal cord paralysis in the past. She remains hoarse. Continue to monitor for any improvement. 04/23/2024 Mucus plugging of bronchi (ICD-10 - J98.09) Patient is doing much better at this current time. Continue pulmonary toilet with the saline, hold off on PEP and vest. 04/23/2024 Paralysis of vocal cords or larynx, unspecified (ICD-10 - J38.00) History of vocal cord paralysis in the past. She is currently hoarse; unclear if this is secondary to irritation from several intubations versus recurrence or damage to the vocal cord. As she is improving, she was to hold off on any further evaluation for now. 10/22/2024 Pulmonary embolism (ICD-10 - I26.99) Small right sided pulmonary embolism identified 03/21/2024. Sharon on Eliquis. 03/06/2024 History of fungal infection (ICD-10 - Z86.19) Cryptococcus No Cryptococcus on BAL. 06/06/2024 Sinus tachycardia (ICD-10 - R00.0) 03/06/2024 History of COVID-19 (ICD-10 - Z86.16) Patient contracted COVID a second time January 2024 and has not recovered back to baseline as of yet. 10/22/2024 History of Mycobacterium avium complex infection (ICD-10 - Z86.19) 04/23/2024 Pulmonary embolism (ICD-10 - I26.99) Small right sided pulmonary embolism identified 03/21/2024. Cause unclear, but with her underlying breast cancer, this may be associated with malignancy. She had a massive hemoptysis event after starting Eliquis, and it was therefore held - no current plans on restarting it.. She was evaluated by vascular surgery, and as she never had a DVT, they did not recommend IVC filter. 04/23/2024 Malignant neoplasm of unspecified site of left female breast (ICD-10 - C50.912) There are bony lesions noted on imaging are concerning for metastatic disease versus multiple myeloma. She states she is going to have a biopsy within the next several weeks; she is following with oncology. 10/22/2024 History of fungal infection (ICD-10 - Z86.19) Cryptococcus 10/22/2024 History of COVID-19 (ICD-10 - Z86.16) 04/23/2024 History of Mycobacterium avium complex infection (ICD-10 - Z86.19) 04/23/2024 History of fungal infection (ICD-10 - Z86.19) Cryptococcus 04/23/2024 History of COVID-19 (ICD-10 - Z86.16) 03/06/2024 Other s/p lumpectomy. F/U with oncology. 04/23/2024 Other s/p lumpectomy. F/U with oncology. s/p lumpectomy. F/U with oncology. 10/22/2024 Other Plan Of Treatment Pending Test Test Name Order Date CULTURE, SPUTUM 04/21/2023 EKG w Interp & Report - performed 2023 CARDIO Echocardiogram 04/16/2024 Sputum Culture 01/20/2025 CBC W/AUTO DIFF 02/26/2025 High Sensitivity Troponin 04/16/2024 CULTURE SPUTUM 04/16/2024 CULTURE SPUTUM 06/06/2024 PROTIME 04/04/2024 QUANTIFERON TB GOLD PLUS 02/26/2025 SPUTUM GRAM STAIN 06/06/2024 SPUTUM GRAM STAIN 04/16/2024 SYMPTOMATIC COVID-19 ANTIGEN 01/29/2024 US OTILIA DOP LEG LT 04/04/2024 US OTILIA DOP LEG RT 04/04/2024 XR CHEST 2 V 04/16/2024 XR CHEST 2 V 06/26/2024 Next Appt Details Provider Name:Stevie Fajardo, 10/21/2025 02:00:00 PM, [address] [place], [address], Insurance Providers Payer Name Payer Address Payer Phone Subscriber Number Group Number Insured Name Patient Relationship to Insured Coverage Start Date Coverage End Date [place]IC[place] [address] [place] [place] [address] [id number] Emeli Kaufman Self - patient is the insured 4 [facility] [address] [address] [place] [address] [id number] Emeli Kaufman Self - patient is the insured 4 Medical (General) History Medical History History ICD Code Pericardial effusion I31.39 Paralysis of vocal cords or larynx, unsp ecified J38.00 Neurogenic bladder N31.9 Septal myocardial infarction I21.29 Migraine headache G43.909 Multiple sclerosis G35 Bronchiectasis, uncomplicated J47.9 Dextroscoliosis M41.80 GERD (gastroesophageal reflux disease) K 21.9 Mucus plugging of bronchi J98.09 Massive hemoptysis R04.2 Pulmonary embolism I26.99 History of Mycobacterium avium complex i nfection Z86.19 History of fungal infection Z86.19 History of breast cancer Z85.3 History of COVID-19 Z86.16 Malignant neoplasm of unspecified site o f left female breast C50.912 Surgical History Surgery Date(Month/Year) [facility] 08/06/2024 Open Heart Surgery- remove myxoma 2024 Bronchoscopy-07/05/2019 & 04/28/2021, ,03/14/2024, 03/2024 lumpectomy, left breast 04/11/2023 section dilatation and curettage Chest Tube Placement 09/09/2024 Hospitalization History Reason Date(Month/Year) Massive Hemoptysis-[facility] 03/14/2024 Massive Hemoptysis-[facility] 03/26/2024
--- OUTSIDE RECORDS SUMMARY | 2025-02-26 12:51 | XMS_ITS | Encounter Summary ---
Author Organization [facility] Address [address] [place] [address] Care Team Providers Care Auto Carrier Driver Name Role Phone Sabas Wagner MD Primary Care Provider [phone] Kem Block MD Unavailable [phone] Janell Reynolds MD Unavailable [phone] Deangelo Morales MD Unavailable [phone] Source Comments In the event this information is protected by the Federal Confidentiality of Alcohol and Drug AbusePatient Records regulations: The Federal rules restrict any use of the information to criminally investigate or prosecute any alcohol or drug abuse patient.[facility] Encounter Details Date Type Department Care Team (Latest Contact Info) Description 10/09/2024 [place] [address] Provider, [facility] Please complete Cardiovascular Surgery Questionnaires [...] risk 3 02/20/2024 Data from: [email or web address]/. Last address used for calculation [address] 02/20/2024 Comments No Sex and [...] 06/09/2025 7:15 AM EST Procedure Cardiology [address] [place] [address] est imaging 6 mo f/u per [facility] order 06/09/2025 7:45 AM EST Office Visit Cardiology [address] [id number] Deangelo Morales MD [address] [id number] est imaging 6 mo f/u per [facility] order documented as of this encounter Goals Goal Patient Goal Type Associated Problems Recent Progress Patient-Stated? Author Blood Pressure < 140/90 Blood Pressure 118/80( 025 10:57 AM EDT) No Janell Reynolds MD documented as of this encounter Visit Diagnoses Not on filedocumented in this encounter Care Teams Auto Carrier Driver Relationship Specialty Start Date End Date Sabas Wagner MD PCP - General Family Medicine 09/09/10 Kem Block MD [address] [place] [address] Referring Cardiology 06/04/24 Janell Reynolds MD [address] [place] [address] Surgeon Cardiac Surg 06/05/24 Deangelo Morales MD [address] [place] [address] Primary Staff Physician Cardiology 07/11/24 documented as of this encounter
--- OUTSIDE RECORDS SUMMARY | 2025-02-26 12:51 | XMS_ITS | Encounter Summary ---
Author Organization [facility] Address [address] [place] [address] Care Team Providers Care Brass Roller Name Role Phone Sabas Wagner MD Primary Care Provider [phone] Encounter Details Date Type Department Care Team (Latest Contact Info) Description 02/25/2025 Travel Social History Tobacco Use Types Packs/Day Years [...] Imaging [address] [place] [phone] 04/30/2025 3:00 PM EDT Office Visit [facility] [address] [place] [address] Fernanda Mcgovern DO [address] [place] [address] documented as of this encounter Visit Diagnoses Not on filedocumented in this encounter Care Teams Brass Roller Relationship Specialty Start Date End Date Sabas Wagner MD PCP - General Family Medicine 12/28/22 documented as of this encounter
--- OUTSIDE RECORDS SUMMARY | 2025-02-26 12:51 | XMS_ITS | Encounter Summary ---
Author Organization [facility] Address [address] [place] [address] Care Team Providers Care Service Tech/Welder Name Role Phone Sabas Wagner MD Primary Care Provider [phone] Encounter Details Date Type Department Care Team (Late st Contact Info) Description 12/13/2022 Abstract [facility] [address] [place] [phone] Fernanda Mcgovern DO [address] [place] [id number] Social History Tobacco Use Types Packs/Day Years [...] Description 03/04/2025 10:30 AM EDT Ancillary Procedure [facility] [place] [facility] [address] [place] [id number] 04/30/2025 3:00 PM EDT Office Visit [facility] [address] [place] [address] Fernanda Mcgovern, DO [address] [place] [address] documented as of this encounter Visit Diagnoses Not on filedocumented in this encounter Care Teams Service Tech/Welder Relationship Specialty Start Date End Date Sabas Wagner MD PCP - General Family Medicine 12/28/22 documented as of this encounter
[2025-02-26 13:05] LABS: Hematocrit 37.4 % (36.0-48.0); Hemoglobin 12.2 g/dL (12.0-16.0); Immature Granulocytes Abs Auto 0.02 10^3/uL (0.00-0.03); Immature Granulocytes Pct Auto 0.3 % (0.0-0.5); Lymphocytes Absolute Auto 1.1 10^3/uL (1.2-3.8); Mean Corpuscular HGB Conc 32.6 g/dL (29.9-35.2); Mean Corpuscular Hemoglobin 29.0 pg (26.7-34.0); Mean Corpuscular Volume 88.8 fL (81.0-99.0); Platelet Count 263 10^3/uL (150-450); Red Blood Count 4.21 10^6/uL (4.20-5.40); White Blood Count 7.5 10^3/uL (4.0-11.0)
--- OUTSIDE RECORDS SUMMARY | 2025-02-26 13:05 | XMS_ITS | CCD ---
Author Organization [facility] Care Team Providers Care Heel Scourer Name Role Phone VAIBHAVY ., DR REED [...] DR REED Consulting Unavailable HOY ., DR ERED Admitting Unavailable HOY ., DR REED Primary [...] Physician Brianna Yanez MD Primary Care Provider [phone] PROVIDER, UNKNOWN Attending Unavailable PROVIDER, UNKNOWN Admitting Unavailable Al-Marrawi, Mhd Yaser Admitting Unavailabl e Al-Marrawi, Mhd Yaser Attending Unavailabl e Al-Marrawi, Mhd Yaser Attending Unavailabl e Al-Marrawi, Mhd Yaser Admitting Unavailabl e RINKES, FERNANDA E Referring Unavailable RINKES, FERNANDA E Attending Unavailable RINKES, FERNANDA E Referring Unavailable Al-Marrawi, Mhd Yaser Admitting Unavailabl e Al-Marrawi, Mhd Yaser Attending Unavailabl e Al-Marrawi, Mhd Yaser Referring Unavailabl e Bernard RICE, Brianna Calvert Primary Care Provider [phone] Al-Marrawi, Mhd Yaser Attending Unavailabl e Al-Marrawi, Mhd Yaser Attending Unavailabl e Al-Marrawi, Mhd Yaser Admitting Unavailabl e Demboske, Khanh Gina Admitting Unavailable Demcorryke, Khanh Gina Attending Unavailable Al-Marrawi, Mhd Yaser Attending Unavailabl e Demboske, Khanh Gina Admitting Unavailable Demboske, Khanh Gian Attending Unavailable Al-Marrawi, Masoodd Yaser Attending Unavailabl e Al-Marrawi, Mhd Yaser Admitting Unavailabl e Al-Marrawi, Mhd Yaser Attending Unavailabl e Al-Marrawi, Mhd Yaser Admitting Unavailabl e Al-Marrawi, Mhd Yaser Attending Unavailabl e Demboske, Khanh Gina Attending Unavailable Lauro Simon. Attending Unavailable MoLauro kaufman. Attending Unavailable MoLauro kaufman. Attending Unavailable MoLauro kaufman. Attending Unavailable Al-Marrawi, Mhd Yaser Attending Unavailabl e Al-Marrawi, Mhd Yaser Attending Unavailabl e Al-Marrawi, Mhd Yaser Referring Unavailabl e Al-Marrawi, Mhd Yaser Admitting Unavailabl e Genesis RICE, [facility] Unavailable [phone] Unspecified, Cardiac Surgeon - Unavailable U navailable Unspecified, Cardiac Surgeon - Unavailable U navailable Rodolfo RICE, Janell Calvert Unavailable Deangelo Morales MD Unavailable [phone] MD Neftali Narayan Admitting Unavail able MD Neftali Narayan Referring Unavail able MD Neftali Narayan Attending Unavail able MD Neftali Narayan Referring Unavail able MD Neftali Narayan Attending Unavail able MD Neftali Narayan Admitting Unavail able MD Neftali Narayan Attending Unavail able Lauro Simon Attending Unavailable Neftali Narayan Attending Unavailabl e Neftali Narayan Admitting Unavailabl e Sylvain, Neftali Ling Attending Unavailabl e HOY, BRIANNA M Primary Care Unavailable JANELL GONZÁLES Referring Unavailable HOY, BRIANNA M Primary Care Unavailable JANELL GONZÁLES Referring Unavailable HOY, BRIANNA M Primary Care Unavailable JANELL GONZÁLES Referring Unavailable HOY, BRIANNA M Primary Care Unavailable JANELL GONZÁLES Referring Unavailable JANELL GONZÁLES Referring Unavailable HOY, BRIANNA M Primary Care Unavailable JANELL GONZÁLES Referring Unavailable HOY, BRIANNA M Primary Care Unavailable JANELL GONZÁLES Referring Unavailable FRANCISCO JAVIER CALDERÓN Attending Unavailable HOY, BRIANNA M Primary Care Unavailable JANELL GONZÁLES Referring Unavailable HOY, BRIANNA M Primary Care Unavailable JANELL GONZÁLES Referring Unavailable HOY, BRIANNA M Primary Care Unavailable JANELL GONZÁLES Referring Unavailable HOY, BRIANNA M Primary Care Unavailable JANELL GONZÁLES Referring Unavailable JANELL GONZÁLES Attending Unavailable HOY, BRIANNA M Primary Care Unavailable JANELL GONZÁLES Attending Unavailable JANELL GONZÁLES M Admitting Unavailable HOY, BRIANNA M Primary Care Unavailable KHOT, ARIELLE N Attending Unavailable KHOT, ARIELLE N Admitting Unavailable HOY, BRIANNA M Primary Care Unavailable JANELL GONZÁLES Referring Unavailable JUNG QUIROZ Attending Unavaila ble HOY, BRIANNA M Primary Care Unavailable JANELL GONZÁLES Referring Unavailable JANELL GONZÁLES Attending Unavailable HOY, BRIANNA M Primary Care Unavailable SELF Referring Unavailable JANELL GONZÁLES Attending Unavailable HOY, BRIANNA M Primary Care Unavailable JANELL GONZÁLES Referring Unavailable HOY, BRIANNA M Primary Care Unavailable SAMAME, EMELI Referring Unavailable HOY, BRIANNA M Primary Care Unavailable TONGCOLIN-SALMON M Referring Unavailable HOY, BRIANNA M Primary Care Unavailable TONGCOLIN-SALMON M Referring Unavailable HOY, BRIANNA M Primary Care Unavailable TONGCOLIN-SALMON M Referring Unavailable HOY, BRIANNA M Primary Care Unavailable TONG, COLIN-SALMON M Referring Unavailable HOY, BRIANNA M Primary Care Unavailable SAMAME, EMELI Referring Unavailable HOY, BRIANNA M Primary Care Unavailable JATIN VASQUEZ Attending Unavailable SAMAME, EMELI Referring Unavailable HOY, BRIANNA M Primary Care Unavailable HOY, BRIANNA M Primary Care Unavailable SELF Referring Unavailable CHRIS BAUM Attending Unavailable HOY, BRIANNA M Primary Care Unavailable DEANGELO MORALES Attending Unavailable COLIN GONZÁLES-SALMON M Referring Unavailable TONG, COLIN-SALMON M Referring Unavailable HOY, BRIANNA M Primary Care Unavailable LILLIAN FINCH Attending Unavailable SAMAME, EMELI Referring Unavailable HOY, BRIANNA M Primary Care Unavailable SAMAME, EMELI Referring Unavailable HOY, BRIANNA M Primary Care Unavailable COLIN GONZÁLES-SALMON M Referring Unavailable HOY, BRIANNA M Primary Care Unavailable TONGCOLIN-SALMON M Referring Unavailable HOY, BRIANNA M Primary Care Unavailable COLIN GONZÁLES-SALMON M Referring Unavailable ARIELLE SHARIF Attending Unavailable HOY, BRIANNA M Primary Care Unavailable Al-Marwi, Masoodd Kristineser Attending Unavailabl e Al-Marrawi, Mhd Yaser Admitting Unavailabl e Al-Marrawi, Mhd Yaser Attending Unavailabl e Al-Marrawi, Masoodd Yaser Attending Unavailabl e Al-Marrawi, Mhd Yaser Admitting Unavailabl e Al-Marrawi, Mhd Yaser Attending Unavailabl e Al-Marrawi, Mhd Yaser Admitting Unavailabl e Lauro Simon Attending Unavailable OTIS FAIRBANKS Attending Unavailable ASSALY, RAGHEB Admitting Unavailable SAMSA, ULI Referring Unavailable PIRKL, DEA Referring Unavailable ASSALY, RAGHEB Referring Unavailable GENESIS MOHAMAD Referring Unavailable ALANA PERALTA Attending Unavaila NIYA Anderson Attending Unavailable NIYA BLACKWELL Attending Unavailable ASSALY, RAGHEB Referring Unavailable JOSE, MIRRA Referring Unavailable PIRKL, DEA Referring Unavailable YUSUF, LAURA Referring Unavailable ASSALY, RAGHEB Referring Unavailable ASSALY, RAGHEB Referring Unavailable OMBALLI, MOHAMED Referring Unavailable OMBALLI, MOHAMED Attending Unavailable OMBALLI, MOHAMED Referring Unavailable ANIBAL, JO ANN Referring Unavailable ASSALY, RAGHEB Referring Unavailable ASSALY, RAGHEB Referring Unavailable ASSALY, RAGHEB Referring Unavailable ASSALY, RAGHEB Referring Unavailable JOSE, MIRRA Referring Unavailable ASSALY, RAGHEB Referring Unavailable CHACE, YOUNGSOOK Referring Unavailable CHACE, YOUNGSOOK Referring Unavailable CHACE, YOUNGSOOK Referring Unavailable CHACE, YOUNGSOOK Referring Unavailable OMBALLI, MOHAMED Attending Unavailable ALGHOTHANI, MOHAMAD Attending Unavailable ALGHOTHANI, MOHAMAD Referring Unavailable ALGHOTHANI, MOHAMAD Attending Unavailable OMBALLI, MOHAMED Attending Unavailable ASSALY, RAGHEB Referring Unavailable YUSUF, LAURA Referring Unavailable YUSUF, LAURA Referring Unavailable YUSUF, LAURA Referring Unavailable BUFFY, HANI Attending Unavailable OMBALLI, MOHAMED Admitting Unavailable SIMON, BECKIE T Referring Unavailable Allergies Allergy Classification Reported Allergen(s) Allergy Type Date of Onset Reaction(s) Facility (8 sources) No Known Medication Allergies; Translations: [No Known Medication Allergies] Propensity to adverse reactions (disorder) [facility] Repository (20 sources) Warfarin; Translations: [WARFARIN] Drug Allergy 4 Other: See Comments [facility] (4 sources) apixaban; Translations: [apixaban] Drug Allergy Bleeding (finding) [facility] Comment on above: pulmonary hemorrhage (3 sources) apixaban; Translations: [Eliquis] Drug Allergy [facility] Repository (1 source) apixaban; Translations: [APIXABAN] Drug Allergy 5 [facility] Repository Medications Current Medications Medication Drug Class(es) Dates Sig (Normalized) Sig (Original) acetaminophen 325 mg oral tablet (5 sources) Start: 09-14-2024 End: 10-14-2024 take 2 tablets by mouth every four hours as needed acetaminophen (TYLENOL) 325 mg tablet Take 2 tablets by mouth every 4 hours as needed for pain. 09/14/2024 10/14/2024 Active albuterol 0.83 mg/ml inhalation solution (20 sources) beta2-Adrenergic Agonist Start: 09-03-2024 albuterol 0.083% Inh Nita 3 mL Refill(s) 0 Start Date: 09/03/24 Status: Ordered Repeat number: 1 Start: 09-03-2024 albuterol 0.08 3% Inh Nita 3 mL Refill(s) 0 Start Date: 09/03/24 Status: Ordered Start: 07-19-2024 End: 10-17-2024 take 3 mL by inhalation every twelve hours albuterol (PROVENTIL) 2.5 mg /3 mL (0.083 %) nebulizer solution Indications: Bronchiectasis without complication (HCC) Use 3 mL via nebulizer every 12 hours. Inhale over 5-15 minutes 180 mL 2 07/19/2024 Active Start: 08-13-2019 take 3 mL by inhalat ion three times daily as needed albuterol (PROVENTIL) 2.5 mg /3 mL (0.083 %) nebulizer solution Indications: Bronchiectasis without complication (HCC) , Chronic cough Use 3 mL via nebulizer three times daily as needed. Inhale over 5-15 minutes 120 Vial 5 08/13/2019 Active calcium carbonate 1250 mg oral tablet (20 sources) take 1 tablet by sherice th once daily calcium carbonate (OS-TONY 500) 500 mg calcium (1,250 mg) tablet Take 1 tablet by mouth once daily. Active take 1 tablet by mouth in the mo rning calcium carbonate (Os-Tony) 1250 (500 Ca) MG tablet Take 1 tablet by mouth in the morning. Active cholecalciferol 0.05 mg oral tablet (20 sources) Vitamin D take 1 tablet by mouth once daily cholecalciferol (VITAMIN D-3) 2,000 unit tablet Take 2,000 Units by mouth once daily. Active take 1 tablet by mouth in the mo rning cholecalciferol (Vitamin D-3) 50 MCG (2000 UT) tablet Take 2,000 Units by mouth in the morning. Active furosemide 20 mg oral tablet (12 sources) Loop Diuretic Start: 09-14-2024 End: 09-29-2024 take 1 tablet by mouth once daily furosemide (LASIX) 20 mg tablet Take 1 tablet by mouth once daily for 5 days. 5 tablet 09/24/2024 Active Start: 04-19-2024 take 1 tablet by sherice th once daily furosemide 40 mg Tab 40 mg = 1 tab(s), Oral, Daily, Refills(s) 0 Start Date: 04/19/24 Status: Ordered letrozole 2.5 mg oral tablet (20 sources) Aromatase Inhibitor Start: 12-04-2023 take 1 tablet by mouth once daily letrozole 2.5 mg Tab 2.5 mg = 1 tab(s), Oral, Daily, # 90 tab(s), Refills(s) 1, [id number], 165, cm, 12/04/23 14:36:00 EDT, Height/Length Dosing, 54.8, kg, 12/04/23 14:36:00 EDT, Weight Dosing Start Date: 12/04/23 Status: Ordered Quantity: 90.0 Unit: tab(s) Repeat number: 2 Indications: Personal history of malignant neoplasm of breast; Start: 05-22-2023 End: 11-18-2023 take 1 tablet by mouth once daily Femara 2.5 mg Tab 2.5 mg = 1 tab(s), Oral, Daily, Do not start until 1 week after radiation is finished., X 30 day(s), # 30 tab(s), Refills(s) 5, [id number], 165, cm, 05/22/23 14:14:00 EST, Height/Length Dosing, 56, kg, 05/22/23 14:14:00 EST, Weight Dosing Start Date: 05/22/23 Stop Date: 11/18/23 Status: Ordered levoFLOXacin 750 mg oral tablet (18 sources) Quinolone Antimicrobial Start: 04-16-2024 levoFLOXacin (Levaquin) 750 MG tablet 04/16/2024 Active Start: 11-06-2023 levofloxacin 5 00 mg Tab 10 tab(s), 0 Refill(s), Refills(s) 0 Start Date: 11/06/23 Status: Ordered metoprolol tartrate 25 mg oral tablet (19 sources) beta-Adrenergic Linus Start: 12-10-2024 Lopres sor 25 mg oral tablet 12.5 mg = 0.5 tab(s), Oral, BID, Refills(s) 0 Start Date: 12/10/24 Status: Ordered Repeat number: 1 Start: 09-14-2024 End: 12-13-2024 take 1 tablet by mouth every twelve hours in the evening metoprolol tartrate, short acting, (LOPRESSOR) 25 mg tablet Take 1/2 tablet by mouth every 12 hours. 90 tablet 09/14/2024 3:05 PM EST 09/14/2024 12/13/2024 Active Start: 04-09-2024 Lopressor 25 m g oral tablet Refills(s) 0 Start Date: 04/09/24 Status: Ordered Start: 04-01-2024 End: 05-01-2024 metoprolol tartrate (Lopress or) 25 MG tablet Take 12.5 mg by mouth in the morning and 12.5 mg in the evening. 04/01/2024 05/01/2024 Active MULTIVITAMIN-FERROUS FUMARATE-FOLIC ACID 18 MG-400 MCG TABLET (6 sources) Start: 09-15-2024 End: 12-14-2024 take 1 tablet by mouth once daily at breakfast MULTIVITAMIN-FERROUS FUMARATE-FOLIC ACID 18 MG-400 MCG TABLET Take 1 tablet by mouth daily with breakfast. 30 tablet 2 09/14/2024 3:05 PM EST 09/15/2024 12/14/2024 Active mupirocin 0.02 mg/mg topical ointment (4 sources) RNA Synthetase Inhibitor Antibacterial Start: 08-27-2024 mupirocin (BACTROBAN) 2 % ointment Apply a small amount in each nostril using a cotton swab twice the day before surgery and once the morning of surgery. 22 g 08/27/2024 Active Nebulizer and Compressor For Neb magdi (20 sources) Start: 10-04-2016 Nebulizer and Compressor For Neb magdi Indications: Bronchiectasis without complication (HCC) , Chronic cough 1 Device as needed. Use as directed. 1 Device 10/04/2016 Active Start: 10-04-2016 Nebulizer and Compressor For Neb magdi Indications: Bronchiectasis without complication (HCC) , Chronic cough 1 Device as needed. Use as directed. 1 Device 0 10/04/2016 Active pantoprazole 20 mg delayed release oral tablet (6 sources) Proton Pump Inhibitor Start: 09-15-2024 End: 09-30-2024 take 1 tablet by mouth once daily in the morning pantoprazole DR (PROTONIX) 20 mg tablet Take 1 tablet by mouth daily at 6 am for 15 days. 15 tablet 09/14/2024 3:05 PM EST 09/15/2024 Active microencapsulated potassium chloride 10 meq extended release oral tablet (6 sources) Start: 09-14-2024 End: 09-29-2024 take 1 tablet by mouth once daily potassium chloride ER (KLOR-CON M10) 10 mEq tablet Take 1 tablet by mouth once daily for 5 days. 5 tablet 09/24/2024 09/29/2024 Active predniSONE (18 sources) Start: 05-01-2023 predniSONE Refills(s) 0 Start [...] taking., # 12 tab(s), Refills(s) 1, Pharmacy: [facility]/pharmacy #[id number], 165, cm, 09/04/23 14:48:00 EST, Height/Length Dosing, 56.1, kg, 09/04/23 14:48:00 EST, Weight Dosing Start Date: 09/04/23 Status: Ordered Sodium Chloride (20 sources) Start: 09-03-2024 Sodium Chloride, Inhalation 0.9% inhalation solution Refill(s) 0 Start Date: 09/03/24 Status: Ordered Repeat number: 1 Start: 09-03-2024 Sodium Chlorid e, Inhalation 0.9% inhalation solution Refill(s) 0 Start Date: 09/03/24 Status: Ordered Start: 02-22-2023 Sodium Chlorid e, Inhalation 0.9% inhalation solution 1 dose, Inhalation, Daily, Other (see comment) Start Date: 02/22/23 Status: Ordered Repeat number: 1 Start: 02-22-2023 Sodium Chlorid e, Inhalation 0.9% inhalation solution 1 dose, Inhalation, Daily, Other (see comment) Start Date: 02/22/23 Status: Ordered sodium chloride 0.9 % nebulizer solution Use 3 mL via nebulizer as needed. Active Completed/Discontinued Medications Medication Drug Class(es) Dates Sig (Normalized) Sig (Original) alendronic acid 70 mg oral tablet (20 sources) Bisphosphonate Start: 12-23-2024 take 6-8 [oz_av] by mouth once daily alendronate 70 mg Tab 70 mg = 1 tab(s), Oral, q7day, with 6-8 oz plain water, at least 30 minutes before first food, beverage, or medication of the day, # 12 tab(s), Refills(s) 1, Pharmacy: [facility]/pharmacy #[id number], 165, cm, 12/10/24 14:47:00 EDT, Height/Length Dosing, 61, kg, 12/10/24 14:47:00 EDT, Weight Dosing Start Date: 12/23/24 Status: Ordered Quantity: 12.0 Unit: tab(s) Repeat number: 2 Start: 06-28-2024 take 6-8 [oz_av] by mouth once daily alendronate 70 mg Tab 70 mg = 1 tab(s), Oral, q7day, with 6-8 oz plain water, at least 30 minutes before first food, beverage, or medication of the day, # 12 tab(s), Refills(s) 1, Pharmacy: [facility]/pharmacy #[id number], 165, cm, 05/27/24 15:17:00 EST, Height/Length Dosing, 56, kg, 05/27/24 15:17:00 EST, Weight Dosing Start Date: 06/28/24 Status: Ordered Quantity: 12.0 Unit: tab(s) Repeat number: 2 Start: 01-05-2024 take 6-8 [oz_av] by mouth once daily alendronate 70 mg Tab 70 mg = 1 tab(s), Oral, q7day, with 6-8 oz plain water, at least 30 minutes before first food, beverage, or medication of the day, # 12 tab(s), Refills(s) 1, Pharmacy: [facility]/pharmacy #[id number], 165, cm, 12/04/23 14:36:00 EDT, [...] day, # 12 tab(s), Refills(s) 1, Pharmacy: [facility]/pharmacy #[id number], 165, cm, 09/04/23 14:48:00 EST, Height/Length Dosing, 56.1, kg, 09/04/23 14:48:00 EST, Weight Dosing Start Date: 09/19/23 Status: Ordered take 1 tablet by sherice every week alendronate (FOSAMAX) 70 mg tablet Take 70 mg by mouth one time a week. Active alendronate (Fos amax) 70 MG tablet TAKE 1 TABLET BY MOUTH EVERY 7 DAYS WITH 6-8 OZ WATER 30 MINUTES BEFORE ANY FOOD DRINK OR MEDICATION Active ipratropium bromide 0.021 mg/actuat metered dose nasal spray (5 sources) Anticholinergic Start: 07-19-2017 End: 07-11-2024 take 2 spray(s) nasal route twice daily Ipratropium [place] (ATROVENT) 0.03 % nasal spray Indications: Chronic vasomotor rhinitis Use 2 Sprays in each nostril twice daily. for up to three(3) weeks 1 Bottle 1 07/19/2017 07/11/2024 Discontinued (Course of therapy completed) latanoprost 0.05 mg/ml ophthalmic solution (20 sources) Prostaglandin Analog Start: 01-30-2023 latanoprost Opth 0.005% Nita 1 drop(s), Eye-Both, qPM, Refill(s) 0, Other (see comment) Start Date: 01/30/23 Status: Ordered Repeat number: 1 take 1 drop(s) into the eye(s) once [...] 0, Prophylaxis Start Date: 01/30/23 Status: Ordered Repeat number: 1 Start: 01-30-2023 take 1 capsule by [facility] once daily Vitamin D 50,000 intl units (1.25 mg) oral capsule 50,000 International_Unit = 1 cap(s), Oral, Daily, Refills(s) 0, Prophylaxis Start Date: 01/30/23 Status: Ordered Start: 01-30-2023 take 1 capsule by [facility] every week Vitamin D 50,000 intl units (1.25 mg) oral capsule 50,000 International_Unit = 1 cap(s), Oral, qWeek, Refills(s) 0, Prophylaxis Start Date: 01/30/23 Status: Ordered Problems Active Problems Problem Classification Problem Date Documented Date Episodic/Chronic Acute posthemorrhagic anemia (7 sources) Acute posthemorrhagic anemia; Translations: [Acute posthemorrhagic anemia] Onset: 09-12-2024 09-12-2024 Episodic Bacterial infection; unspecified site (20 sources) Infection [...] obstructive pulmonary disease, unspecified] Onset: 09-14-2016 Chronic Fluid and electrolyte disorders (6 sources) Hypervolemia; Translations: [Fluid overload, unspecified] Onset: 09-11-2024 09-11-2024 Episodic Multiple sclerosis (20 sources) Multiple sclerosis; Translations: [Multiple sclerosis] Onset: 08-31-2010 01-30-2023 Chronic Nonspecific chest pain (4 sources) Chest pain; Translations: [Other chest pain] Onset: 08-26-2024 08-15-2024 Episodic Other aftercare (6 sources) Follow-up status; Translations: [Encounter for follow-up examination after completed treatment for malignant neoplasm] Onset: 08-07-2023 Episodic Other aftercare (1 source) Surgical follow-up; Translations: [Encounter for follow-up examination after completed treatment for conditions other than malignant neoplasm] 09-24-2024 Episodic Other aftercare (1 source) Encounter for follow-up examination after completed treatment for conditions other than malignant neoplasm; Translations: [Surgery follow-up] Onset: 09-24-2024 Episodic Other and ill-defined heart disease (8 sources) Mass of thoracic structure; Translations: [Other ill-defined heart diseases] Onset: 09-09-2024 07-19-2024 Chronic Other and ill-defined heart disease (3 sources) Other ill-defined heart diseases; 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] Onset: 05-01-2024 Chronic Other and unspecified benign neoplasm (11 sources) Benign neoplasm of heart; 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] 06-10-2024 Episodic Other and unspecified benign neoplasm (1 source) Myxoma of heart; 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] 09-19-2024 Episodic Other and unspecified benign neoplasm (3 sources) Benign neoplasm of heart; 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 (HCC)] Onset: 07-11-2024 Episodic Other bone disease and musculoskeletal deformities (3 sources) Disorder of bone; Translations: [Other specified disorders of bone density and structure, unspecified site] Onset: 09-04-2023 Episodic Other circulatory disease (10 sources) Disorder of artery; Translations: [Disorder of arteries and arterioles, unspecified] 06-10-2024 Chronic Other circulatory disease (2 sources) Disorder of arteries and arterioles, unspecified; Translations: [Disorder of artery or arteriole] Onset: 07-11-2024 Chronic Other hematologic conditions (1 source) Abnormal finding on evaluation procedure; Translations: [Other specified abnormalities of plasma proteins] Onset: 09-04-2023 Episodic Other injuries and conditions due to external causes (2 sources) Allergy, unspecified, sequela; Translations: [Allergy, unspecified, sequela] Onset: 02-04-2025 Episodic Other liver diseases (1 source) Disease of liver; Translations: [Other specified diseases of liver] Chronic Other lower respiratory disease (20 sources) H/O: respiratory disease 02-24-2023 Episodic Other lower respiratory disease (1 source) Abnormal findings on diagnostic imaging of lung; Translations: [Other nonspecific abnormal finding of lung field] Episodic Other nervous system disorders (6 sources) Postoperative pain ; Translations: [Other acute postprocedural pain] Onset: 09-09-2024 09-09-2024 Episodic Other screening for suspected conditions (not mental disorders or infectious disease) (20 sources) Encounter for screening for malignant neoplasm of rectum; Translations: [Mammography abnormal] Onset: 07-12-2022 Episodic Residual codes; unclassified (2 sources) History of cardiac catheterization; Translations: [Other specified postprocedural states] 09-03-2024 Episodic Residual codes; unclassified (1 source) Other specified postprocedural states; Translations: [Hx of cardiac cath] Onset: 11-15-2024 Episodic Unclassified (1 source) CONTACT W/AND (SUSP) EXPOS COVID-19; Translations: [CONTACT W/AND (SUSP) EXPOS COVID-19] Onset: 09-18-2022 Unclassified (20 sources) Body mass index 20-24 - normal 02-20-2023 Unclassified (15 sources) Interactive Heart Surgery Education Onset: 08-15-2024 08-15-2024 Unclassified (2 sources) History of cardiac catheterization 09-14-2024 Unclassified (2 sources) Telehealth Phone Visit; Translations: [Telehealth Phone Visit] Onset: 08-29-2024 Viral infection (4 sources) COVID-19; Translations: [COVID-19] Onset: 04-16-2022 Past or Other Problems Problem Classification Problem Date Documented Date Episodic/Chronic Cardiac dysrhythmias (2 sources) Tachycardia, unspecified; Translations: [Tachycardia, unspecified] Onset: 03-27-2024 Episodic Complications of surgical procedures or medical care (7 sources) Postprocedural respiratory disorders; Translations: [Postprocedural pneumothorax] Onset: 09-13-2024 09-13-2024 Episodic Lymphadenitis (2 sources) Localized enlarged lymph nodes; Translations: [Localized enlarged lymph nodes] Onset: 08-01-2024 Episodic Other circulatory disease (3 sources) Other specified symptoms and signs involving the circulatory and respiratory systems; Translations: [Other symptoms involving cardiovascular system] Onset: 07-11-2024 06-10-2024 Episodic Other connective tissue disease (4 sources) Pain in right foot; Translations: [PAIN IN RIGHT FOOT] Onset: 01-10-2022 Episodic Other connective tissue disease (1 source) Pain in right toe(s); Translations: [PAIN IN RIGHT TOES] Onset: 01-13-2022 Episodic Other lower respiratory disease (20 sources) Radiologic infiltrate of lung ; Translations: [Other nonspecific abnormal finding of lung field] Onset: 08-31-2010 08-31-2010 Episodic Other lower respiratory disease (20 sources) Multiple nodules of lung; Translations: [Other nonspecific abnormal finding of lung field] Onset: 08-31-2010 08-31-2010 Episodic Other lower respiratory disease (2 sources) Other nonspecific abnormal finding of lung field; Translations: [Other nonspecific abnormal finding of lung field] Onset: 05-24-2023 Episodic Other lower respiratory disease (2 sources) Hemoptysis; Translations: [Hemoptysis] Onset: 03-27-2024 Episodic Other upper respiratory infections (4 sources) Acute sinusitis, unspecified; Translations: [ACUTE SINUSITIS UNSPECIFIED] Onset: 03-22-2022 Episodic Pleurisy; pneumothorax; pulmonary collapse (16 sources) Atelectasis; Translations: [Atelectasis] Onset: 09-09-2024 09-14-2024 Episodic Pneumonia (except that caused by tuberculosis or sexually transmitted disease) (20 sources) Pneumonia; Translations: [Pneumonia, unspecified organism] Onset: 09-14-2016 02-22-2023 Episodic Residual codes; unclassified (2 sources) Estrogen receptor positive status [ER+]; Translations: [Estrogen receptor positive status (ER+)] Onset: 05-25-2023 Episodic Skin and subcutaneous tissue infections (4 sources) Cellulitis, unspecified; Translations: [CELLULITIS UNSPECIFIED] Onset: 01-03-2022 Episodic Results Test Name Value Interpretation Reference Range Facility Immunoglobs. A/E/G/[facility] 01-02 IgA Quant duplt test Invalid Interpretation Code [facility] Comment on above: Performed By: #### 1 [id number] #### [facility] [address] [place] [address] IgG Quant duplt test Invalid Interpretation Code [facility] Comment on above: Performed By: #### 1 [id number] #### [facility] [address] [place] [address] IgM Quant duplt test Invalid Interpretation Code [facility] Comment on above: Performed By: #### 1 [id number] #### [facility] [address] [place] [address] CA 15-3on 12-26-2024 CA 15-3 19.8 unit/mL Invalid Interpretation Code 0.0-25.0 [facility] Comment on above: Result Comment: [facility] [employer] Electrochemiluminescence Immunoassay (ECLIA) Values obtained with different assay methods or kits cannot be used interchangeably. Results cannot be interpreted as absolute evidence of the presence or absence of malignant disease. Performed at: [address] [id number] PhD Adelfo Shannon Performed By: #### 1 [id number] #### [facility] [address] [place] [address] CA 27 29on 12-26-2024 CA 27 29 32.9 unit/mL Invalid Interpretation Code 0.0-38.6 [facility] Comment on above: Result Comment: Siem Satomiaur Immunochemiluminometric Methodology (ICMA) Values obtained with different assay methods or kits cannot be used interchangeably. Results cannot be interpreted as absolute evidence of the presence or absence of malignant disease. Performed at: [address] [id number] PhD Adelfo Shannon Performed By: #### 1 [id number] #### [facility] [address] [place] [address] Free K+L Lt Chains,Qn,Son Free [place] Lt Chains,S 25.2 mg/L High 3.3-19.4 [facility] Comment on above: Performed By: #### 2 [id number] #### [facility] [address] [place] [address] Free Lambda Lt Chains,S 23.1 mg/L Invalid Interpretation Code 5.7-26.3 [facility] Comment on above: Performed By: #### 2 [id number] #### [facility] [address] [place] [address] [place]/Lambda Ratio,S 1.09 Invalid Interpretation Code 0.26-1.65 [facility] Comment on above: Result Comment: Perf ormed at: [facility] [place] [address] [place], [place] [id number] PhD Adelfo Shannon Performed By: #### 2 [id number] #### [facility] [address] [place] [address] JULIO and PE, Serumon 12-27-19 25 Albumin [Mass/Vol] 3.7 g/dL Invalid Interpretation Code 2.9-4.4 [facility] Comment on above: Performed By: #### 1 [id number] #### [facility] [address] [place] [address] Albumin/Globulin [Mass ratio] 1.0 {ratio} Invalid Interpretation Code 0.7-1.7 [facility] Comment on above: Performed By: #### 1 [id number] #### [facility] [address] [place] [address] Alpha 1 Glob 0.3 gm/dL Invalid Interpretation Code 0.0-0.4 [facility] Comment on above: Performed By: #### 1 [id number] #### [facility] [address] [place] [address] Alpha 2 Glob 0.8 gm/dL Invalid Interpretation Code 0.4-1.0 [facility] Comment on above: Performed By: #### 1 [id number] #### [facility] [address] [place] [address] Beta Glob 1.2 gm/dL Invalid Interpretation Code 0.7-1.3 [facility] Comment on above: Performed By: #### 1 [id number] #### [facility] [address] [place] [address] Gamma Glob 1.6 gm/dL Invalid Interpretation Code 0.4-1.8 [facility] Comment on above: Performed By: #### 1 [id number] #### [facility] [address] [place] [address] [place] [address] Globulin (S) [Mass/Vol] 3.9 g/dL Invalid Interpretation Code 2.2-3.9 [facility] Comment on above: Performed By: #### 1 [id number] #### [facility] [address] [place] [address] IgA Quant 496 mg/dL High 87-352 [facility] Comment on above: Performed By: #### 1 [id number] #### [facility] [address] [place] [address] IgG Quant 1518 mg/dL Invalid Interpretation Code 586-1602 [facility] Comment on above: Performed By: #### 1 [id number] #### [facility] [address] [place] [address] IgM Quant 116 mg/dL Invalid Interpretation Code [facility] Comment on above: Performed By: #### 1 [id number] #### [facility] [address] [place] [address] Immunofix. Result Comment Invalid Interpretation Code [facility] Comment on above: Result Comment: No m onoclonality detected. Performed By: #### 1 [id number] #### [facility] [address] [place] [address] M-Bill Not Observed Invalid Interpretation Code Not Observed [facility] Comment on above: Performed By: #### 1 [id number] #### [facility] [address] [place] [address] Note Comment Invalid Interpretation Code [facility] Comment on above: Result Comment: Prot ein electrophoresis scan will follow via computer, mail, or crop grain or livestock farmer delivery. Performed at: [address] [id number] PhD Adelfo Shannon Performed By: #### 1 [id number] #### [facility] [address] [place] [address] Protein [Mass/Vol] 7.6 g/dL Invalid Interpretation Code 6.0-8.5 [facility] Comment on above: Performed By: #### 1 [id number] #### [facility] [address] [place] [address] Immunoglobs. A/E/G/Mon 12-26 IgE Quant 27 International_Unit/mL Invalid Interpretation Code 6495 [facility] Comment on above: Result Comment: Perf ormed at: [facility] [address] [id number] MD José Miguel Shipman Performed By: #### 1 [id number] #### [facility] [address] [place] [address] CBC w/ Auto Diffon 5 Basophil Absolute 0.0 E9/L Normal 0.0-0.2 [facility] Comment on above: Performed By: #### 2 [id number] #### [facility] [address] [place] [address] Basophils/100 WBC (Bld) 0.4 % Normal 0.0-2.0 [facility] Comment on above: Performed By: #### 2 242869 #### [facility] [address] [place] [address] Eos Absolute 0.0 E9/L Normal 0.0-0.5 [facility] Comment on above: Performed By: #### 2 223351 #### [facility] [address] [place] [address] Eosinophils/100 WBC (Bld) 0.5 % Normal 0.0-8.0 [facility] Comment on above: Performed By: #### 2 156437 #### [facility] [address] [place] [address] Erythrocyte distribution width (RBC) [Ratio] 17.0 % High 10.9-14.2 [facility] Comment on above: Performed By: #### 2 389465 #### [facility] [address] [place] [address] Hematocrit (Bld) [Volume fraction] 39.1 % Normal 34.0-46.0 [facility] Comment on above: Performed By: #### 2 [id number] #### [facility] [address] [place] [address] Hemoglobin (Bld) [Mass/Vol] 12.7 g/dL Normal 12.0-16.0 [facility] Comment on above: Performed By: #### 2 128087 #### [facility] [address] [place] [address] Lymph Absolute 0.9 E9/L Low 1.0-4.0 [facility] Comment on above: Performed By: #### 2 181948 #### [facility] [address] [place] [address] Lymphocytes/100 WBC (Bld) 14.5 % Normal 14.0-50.0 [facility] Comment on above: Performed By: #### 2 681378 #### [facility] [address] [place] [address] MCH (RBC) [Entitic mass] 27.3 pg Normal 27.0-34.0 [facility] Comment on above: Performed By: #### 2 478096 #### [facility] [address] [place] [address] MCHC (RBC) [Mass/Vol] 32.6 g/dL Normal 31.4-36.0 [facility] Comment on above: Performed By: #### 2 635626 #### [facility] [address] [place] [address] MCV (RBC) [Entitic vol] 83.7 fL Normal 80.0-100.0 [facility] Comment on above: Performed By: #### 2 193102 #### [facility] [address] [place] [address] [place] Absolute 0.8 E9/L Normal 0.2-1.0 [facility] Comment on above: Performed By: #### 2 773846 #### [facility] [address] [place] [address] Monocytes/100 WBC (Bld) 12.6 % Normal 4.0-14.0 [facility] Comment on above: Performed By: #### 2 097437 #### [facility] [address] [place] [address] Neutro Absolute 4.7 E9/L Normal 2.0-7.5 [facility] Comment on above: Performed By: #### 2 041216 #### [facility] [address] [place] [address] Neutro Auto 72.0 % Normal 36.0-75.0 [facility] Comment on above: Performed By: #### 2 453187 #### [facility] [address] [place] [address] Platelet 277.0 E9/L Normal 150.0-500. 0 [facility] Comment on above: Performed By: #### 2 109990 #### [facility] [address] [place] [address] Platelet mean volume (Bld) [Entitic vol] 7.9 fL Normal 6.4-10.8 [facility] Comment on above: Performed By: #### 2 258702 #### [facility] [address] [place] [address] RBC 4.7 E12/L Normal 4.3-5.9 [facility] Comment on above: Performed By: #### 2 472112 #### [facility] [address] [place] [address] WBC 6.5 E9/L Normal 4.0-11.0 [facility] Comment on above: Performed By: #### 2 227975 #### [facility] [address] [place] [address] CHEMISTRYOrdered By: SYSTEM SYSTEM on 12-23-2024 Albumin [Mass/Vol] 4.3 g/dL Normal 3.3 - 5.0 gm/dL [facility] Albumin/Globulin [Mass ratio] 1.1 {ratio} Normal 1.1 - 2.2 [facility] ALP [Catalytic activity/Vol] 49 [iU]/d Normal 21 - 98 Int._Unit/ L [facility] ALT No additional P-5'-P [Catalytic activity/Vol] 10 [iU]/d Normal 6 - 46 Int._Unit/ L [facility] Anion gap [Moles/Vol] 12 mmol/L Normal 6 - 16 mEq/L [facility] AST [Catalytic activity/Vol] 14 [iU]/d Normal 5 - 43 Int._Unit/ L [facility] Bilirubin [Mass/Vol] 0.3 mg/dL Normal 0.0 - 1 .1 mg/dL [facility] Calcium [Mass/Vol] 9.8 mg/dL Normal 8.9 - 11. 1 mg/dL [facility] Chloride [Moles/Vol] 102 mmol/L Normal 101 - 1 11 mmol/L [facility] CO2 [Moles/Vol] 29 mmol/L Normal 21 - 31 mmol/L [facility] Creatinine [Mass/Vol] 0.7 mg/dL Normal 0.5 - 1.3 mg/dL [facility] GFR/1.73 sq M.predicted MDRD (S/P/Bld) [Vol rate/Area] 95 mL/min/1.73 m2 Normal >=59mL/min /1.73 m2 [facility] Globulin (S) [Mass/Vol] 3.9 g/dL Normal 1.4 - 4.0 gm/dL [facility] Glucose [Mass/Vol] 87 mg/dL Normal 55 - 199 mg/dL [facility] Potassium [Moles/Vol] 4.5 mmol/L Normal 3.5 - 5.3 mmol/L [facility] Protein [Mass/Vol] 8.2 g/dL High 6.0 - 7.8 gm/dL [facility] Sodium [Moles/Vol] 138 mmol/L Normal 135 - 145 mmol/L [facility] Urea nitrogen [Mass/Vol] 19 mg/dL Normal 5 - 21 mg/dL [facility] Urea nitrogen/Creatinine [Mass ratio] 27 mg/mg High 10 - 20 [facility] CMPon 12-23-2024 Albumin [Mass/Vol] 4.3 g/dL Normal 3.3-5.0 [facility] Comment on above: Performed By: #### 2 [id number] #### [facility] [address] [place] [address] Albumin/Globulin [Mass ratio] 1.1 {ratio} Normal 1.1-2.2 [facility] Comment on above: Performed By: #### 2 [id number] #### [facility] [address] [place] [address] Alk Phos 49 Int._Unit/L Normal 21-98 [facility] Comment on above: Performed By: #### 2 836699 #### [facility] [address] [place] [address] ALT 10 Int._Unit/L Normal 6-46 [facility] Comment on above: Performed By: #### 2 891993 #### [facility] [address] [place] [address] Anion gap [Moles/Vol] 12 mmol/L Normal 6-16 [facility] Comment on above: Performed By: #### 2 181813 #### [facility] [address] [place] [address] AST 14 Int._Unit/L Normal 5-43 [facility] Comment on above: Performed By: #### 2 216811 #### [facility] [address] [place] [address] Bili Total 0.3 mg/dL Normal 0.0-1.1 [facility] Comment on above: Performed By: #### 2 759312 #### [facility] [address] [place] [address] BUN/Creat Ratio 27 No Units High 10-20 [facility] Comment on above: Performed By: #### 2 [id number] #### [facility] [address] [place] [address] Calcium [Mass/Vol] 9.8 mg/dL Normal 8.9-11.1 [facility] Comment on above: Performed By: #### 2 337562 #### [facility] [address] [place] [address] Chloride [Moles/Vol] 102 mmol/L Normal 101-111 [facility] Comment on above: Performed By: #### 2 807609 #### [facility] [address] [place] [address] CO2 [Moles/Vol] 29 mmol/L Normal 21-31 [facility] Comment on above: Performed By: #### 2 917460 #### [facility] [address] [place] [address] Creatinine [Mass/Vol] 0.7 mg/dL Normal 0.5-1.3 [facility] Comment on above: Performed By: #### 2 118220 #### [facility] [address] [place] [address] Globulin (S) [Mass/Vol] 3.9 g/dL Normal 1.4-4.0 [facility] Comment on above: Performed By: #### 2 404365 #### [facility] [address] [place] [address] Glucose [Mass/Vol] 87 mg/dL Normal 55-199 [facility] Comment on above: Performed By: #### 2 187876 #### [facility] [address] [place] [address] Potassium [Moles/Vol] 4.5 mmol/L Normal 3.5-5.3 [facility] Comment on above: Performed By: #### 2 630031 #### [facility] [address] [place] [address] Protein [Mass/Vol] 8.2 g/dL High 6.0-7.8 [facility] Comment on above: Performed By: #### 2 354867 #### [facility] [address] [place] [address] Sodium [Moles/Vol] 138 mmol/L Normal 135-145 [facility] Comment on above: Performed By: #### 2 793695 #### [facility] [address] [place] [address] Urea nitrogen [Mass/Vol] 19 mg/dL Normal 5-21 [facility] Comment on above: Performed By: #### 2 174217 #### [facility] [address] [place] [address] HEMATOLOGYOrdered By: SYSTEM SYSTEM on 12-23-2024 Basophils/100 WBC (Bld) 0.4 % Normal 0.0 - 2.0 % [facility] Basophils/Leukocytes Auto (Bld) [Pure # fraction] 0.0 E9/L Normal 0.0 - 0.2 E9/L [facility] Eosinophils (Bld) [#/Vol] 0.0 E9/L Normal 0.0 - 0.5 E9/L [facility] Eosinophils/100 WBC (Bld) 0.5 % Normal 0.0 - 8.0 % [facility] Erythrocyte distribution width (RBC) [Ratio] 17.0 % High 10.9 - 14.2 % [facility] Hematocrit (Bld) [Volume fraction] 39.1 % Normal 34.0 - 46.0 % [facility] Hemoglobin (Bld) [Mass/Vol] 12.7 g/dL Normal 12.0 - 16.0 gm/dL [facility] Lymphocytes (Bld) [#/Vol] 0.9 E9/L Low 1.0 - 4.0 E9/L [facility] Lymphocytes/100 WBC (Bld) 14.5 % Normal 14.0 - 50.0 % [facility] MCH (RBC) [Entitic mass] 27.3 pg Normal 27.0 - 34.0 pg [facility] MCHC (RBC) [Mass/Vol] 32.6 g/dL Normal 31.4 - 36.0 gm/dL [facility] MCV (RBC) [Entitic vol] 83.7 fL Normal 80.0 - 100.0 fL [facility] Monocytes (Bld) [#/Vol] 0.8 E9/L Normal 0.2 - 1.0 E9/L [facility] Monocytes/100 WBC (Bld) 12.6 % Normal 4.0 - 14.0 % [facility] Neutrophils (Bld) [#/Vol] 4.7 E9/L Normal 2.0 - 7.5 E9/L [facility] Neutrophils/100 WBC (Bld) 72.0 % Normal 36.0 - 75.0 % [facility] Platelet mean volume (Bld) [Entitic vol] 7.9 fL Normal 6.4 - 10.8 fL [facility] Platelets (Bld) [#/Vol] 277.0 E9/L Normal 150.0 - 500.0 E9/L [facility] RBC (Bld) [#/Vol] 4.7 E12/L Normal 4.3 - 5.9 E12/L [facility] WBC corrected for nucl RBC Auto (Bld) [#/Vol] 6.5 E9/L Normal 4.0 - 11.0 E9/L [facility] eGFRon 12-23-2024 eGFR 95 mL/min/1.73 m2 Normal >=59 [facility] Comment on above: Performed By: #### 1 [id number] #### [facility] [address] [place] [address] General Surgery Office/Clini c Noteon 12-10-2024 General Surgery Office/Clinic Note General Surgery Office/Clinic Note Chief Complaint 6 month follow up HPI Staff Emeli is a 64 y.o. female here for 6 month follow up Hx of left breast cancer s/p [place] Node biopsy of left done 04/11/2023 Denies breast changes She continues with letrozole 2.5 mg History of Present Illness 64-year-old female history of left breast cancer status left breast needle localized lumpectomy with left axillary sentinel lymph node biopsy performed on April 11, 2023 here for 6-month follow-up. Found to have multiple lytic bone lesions concerning for multiple myeloma being treated by the medical oncology service. Review of Systems PHQ Score Initial Depression Screen Score: 0 SCORE Physical Exam Vitals & Measurements HR: 87(Peripheral) BP: 125/76 SpO2: 96% HT: 165 cm HT: 65 in WT: 61 kg WT: 134.482 lb BMI: 22.41 Left breast exam: Nipple areolar complex is within normal limits, there is no nipple retraction or nipple inversion. There is no nipple discharge noted on examination. There is no palpable mass noted on examination. There is no skin thickening or peau d'orange noted on examination. left breast and axillary incision are well-healed. Right breast exam: Nipple areolar complex is within normal limits, there is no nipple retraction or nipple inversion. There is no nipple discharge noted on examination. There is no palpable mass noted on examination. There is no skin thickening or peau d'orange noted on examination. Lymph node: Bilateral axillary exam is within normal limits with no enlarged lymph nodes or masses noted on exam, no evidence of supraclavicular lymphadenopathy noted on examination Assessment/Plan 1. Abnormal mammogram of left breast (R92.8: Other abnormal and inconclusive findings on diagnostic imaging of breast) Ordered: E&M of Est. Patient Low 20-29 Min 78272 2. Breast cancer, left (C50.912: Malignant neoplasm of unspecified site of left female breast) Ordered: E&M of Est. Patient Low 20-29 Min 49778 3. Encounter for follow-up surveillance of breast cancer (Z08: Encounter for follow-up examination after completed treatment for malignant neoplasm) Patient will management of multiple myeloma with the medical oncology service, she will follow-up with us in 6 months with repeat mammogram Ordered: E&M of Est. Patient Low 20-29 Min 53028 Personal history of malignant neoplasm of breast (Z85.3: Personal history of malignant neoplasm of breast) As above Portions of this record may have been created with voice recognition artificial intelligence software, specifically [employer], [employer] and or [employer]. Substitutions may have occurred due to the inherent limitations of voice recognition and artificial intelligence software. 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 Medications albuterol 0.083% Inh Nita 3 mL alendronate 70 mg Tab, 70 mg= 1 tab(s), Oral, q7day, 1 refills latanoprost Opth 0.005% Nita, 1 drop(s), Eye-Both, qPM letrozole 2.5 mg Tab, 2.5 mg= 1 tab(s), Oral, Daily, 3 refills letrozole 2.5 mg Tab, 2.5 mg= 1 tab(s), Oral, Daily, 1 refills Lopressor 25 mg oral tablet, 12.5 mg= 0.5 tab(s), Oral, BID Sodium Chloride, Inhalation 0.9% inhalation solution Sodium Chloride, Inhalation 0.9% inhalation solution, 1 dose, Inhalation, Daily, Not taking Vitamin D 50,000 intl units (1.25 mg) oral capsule, 859[address] International_Unit= 1 cap(s), Oral, Daily Allergies Eliquis (Bleeding) Social History Alcohol - Denies Alcohol Use, 02/22/2023 Never., 05/27/2024 Substance Abuse - Denies Substance Abuse, 02/22/2023 Never., 05/27/2024 Tobacco - Denies Tobacco Use, 02/22/2023 Never (less than 100 in lifetime) Tobacco Use:. Household tobacco concerns: No., 09/03/2024 Family History Family history is negative Immunizations [...] inactivated 05/02/2017 Recorded influenza, unspecified formulation 05/09/2016 (more content not included)... Normal [facility] Comment on above: Result Comment: Elec tronically Signed By: Aurora RICE, Lauro Peacock\Date and Time Signed: 12/10/24 14:53 EDT Basic metabolic 2000 panelon 11-15-2024 Anion gap [Moles/Vol] 9 mmol/L Normal 8-15 [facility] Comment on above: Order Comment: Speci men Type: BLOOD SPECIMENOrdering Facility: [facility] Address: [address] [place] [address] Performed By: #### 2 4321-2, 50441-5 ####[facility] LABCLIA [id number] [facility] [address] [address] [place] Calcium [Mass/Vol] 10.0 mg/dL Normal 8.5-10.2 [facility] Comment on above: Order Comment: Speci men Type: BLOOD SPECIMENOrdering Facility: [facility] Address: [address] [place] [address] Performed By: #### 2 4321-2, 59844-0 ####[facility] LABCLIA [id number] [facility] [place] [id number] [place] Chloride [Moles/Vol] 104 mmol/L Normal 98-107 [facility] Comment on above: Order Comment: Speci men Type: BLOOD SPECIMENOrdering Facility: [facility] Address: [address] [place] [address] Performed By: #### 2 432-2, 77918-3 ####[facility] LABCLIA [id number] [place] [address] [place] CO2 [Moles/Vol] 27 mmol/L Normal 22-30 [facility] Comment on above: Order Comment: Speci men Type: BLOOD SPECIMENOrdering Facility: [facility] Address: [address] [place] [address] Performed By: #### 2 432-2, 63406-7 ####[facility] LABCLIA [id number] [place] [id number] [place] Creatinine [Mass/Vol] 0.74 mg/dL Normal 0.58-0.96 [facility] Comment on above: Order Comment: Speci men Type: BLOOD SPECIMENOrdering Facility: [facility] Address: [address] [place] [address] Performed By: #### 2 4321-2, 83770-9 ####[facility] LABCLIA [id number] [place] [id number] [place] Creatinine and Glomerular filtration rate.predicted panel (S/P/Bld) 89 mL/min/1.73m??? Normal >=60 [facility] Comment on above: Order Comment: Milo peters Type: BLOOD SPECIMENOrdering Facility: [facility] Address: [address] [place] [address] Result Comment: Lexie mated Glomerular Filtration Rate (eGFR) is calculated using the 2020 CKD-EPI creatinine equation. This equation utilizes serum creatinine, sex, and age as parameters. The creatinine assay has traceable calibration to isotope dilution-mass spectrometry. Refer to KDIGO guidelines for clinical interpretation. In patients with unstable renal function, e.g. those with acute kidney injury, the eGFR may not accurately reflect actual GFR. Performed By: #### 2 4321-2, 60191-5 ####[facility] [facility] [id number] [place] [address] [place] Glucose [Mass/Vol] 95 mg/dL Normal 74-99 [facility] Comment on above: Order Comment: Milo peters Type: BLOOD SPECIMENOrdering Facility: [facility] Address: [address] [place] [address] Result Comment: The [place] Diabetes Association (ADA) provides guidance for cutoff values for fasting glucose and random glucose. The ADA defines fasting as no caloric intake for at least 8 hours. Fasting plasma glucose results between 100 to 125 mg/dL indicate increased risk for diabetes (prediabetes).Fasting plasma glucose results greater than or equal to 126 mg/dL meet the criteria for diagnosis of diabetes. In the absence of unequivocal hyperglycemia, results should be confirmed by repeat testing. In a patient with classic symptoms of hyperglycemia or hyperglycemic crisis, random plasma glucose results greater than or equal to 200 mg/dL meet the criteria for diagnosis of diabetes.Reference: Standards of Medical Care in Diabetes 2016, [place] Diabetes Association. Diabetes Care. 2016.39(Suppl 1). Performed By: #### 2 4321-2, 22565-8 ####[facility] LABIA [id number] [place] [id number] [place] Potassium [Moles/Vol] 4.5 mmol/L Normal 3.7-5.1 [facility] Comment on above: Order Comment: Speci men Type: BLOOD SPECIMENOrdering Facility: [facility] Address: [address] [place] [address] Performed By: #### 2 4321-2, 39673-1 ####[facility] LABCLIA [id number] [address] [address] [place] Sodium [Moles/Vol] 140 mmol/L Normal 136-144 [facility] Comment on above: Order Comment: Speci men Type: BLOOD SPECIMENOrdering Facility: [facility] Address: [address] [place] [address] Performed By: #### 2 4321-2, 52508-8 ####[facility] LABIA [id number] [place] [address] [place] Urea nitrogen [Mass/Vol] 19 mg/dL Normal 7-21 [facility] Comment on above: Order Comment: Speci men Type: BLOOD SPECIMENOrdering Facility: [facility] Address: [address] [place] [address] Performed By: #### 2 4321-2, 67261-1 ####[facility] LABIA [id number] [place] [address] [place] CBC panel Auto (Bld)on 11-15 Erythrocyte distribution width (RBC) [Ratio] 14.3 % Normal 11.5-15.0 [facility] Comment on above: Order Comment: Speci men Type: BLOOD SPECIMENOrdering Facility: [facility] Address: [address] [place] [address] Performed By: #### 5 8410-2 ####[facility] LABIA [id number] [place] [id number] [place] Hematocrit (Bld) [Volume fraction] 38.1 % Normal 36.0-46.0 [facility] Comment on above: Order Comment: Speci men Type: BLOOD SPECIMENOrdering Facility: [facility] Address: [address] [place] [address] Performed By: #### 5 8410-2 ####[facility] LABIA [id number] [place] [address] [place] Hemoglobin (Bld) [Mass/Vol] 11.7 g/dL Normal 11.5-15.5 [facility] Comment on above: Order Comment: Speci men Type: BLOOD SPECIMENOrdering Facility: [facility] Address: [address] [place] [address] Performed By: #### 5 8410-2 ####[facility] LABIA [id number] [place] [address] [place] MCH (RBC) [Entitic mass] 26.8 pg Normal 26.0-34.0 [facility] Comment on above: Order Comment: Speci men Type: BLOOD SPECIMENOrdering Facility: [facility] Address: [address] [place] [address] Performed By: #### 5 8410-2 ####[facility] LABIA [id number] [place] [address] [place] MCHC (RBC) [Mass/Vol] 30.7 g/dL Normal 30.5-36.0 [facility] Comment on above: Order Comment: Speci men Type: BLOOD SPECIMENOrdering Facility: [facility] Address: [address] [place] [address] Performed By: #### 5 8410-2 ####[facility] LABIA [id number] [place] [id number] [place] MCV (RBC) [Entitic vol] 87.4 fL Normal 80.0-100.0 [facility] Comment on above: Order Comment: Speci men Type: BLOOD SPECIMENOrdering Facility: [facility] Address: [address] [place] [address] Performed By: #### 5 8410-2 ####[facility] LABIA [id number] [place] [address] [place] Nucleated RBC (Bld) [#/Vol] 10*3/uL Normal <0.01 [facility] Comment on above: Order Comment: Speci men Type: BLOOD SPECIMENOrdering Facility: [facility] Address: [address] [place] [address] Performed By: #### 5 8410-2 ####[facility] LABCLIA [id number] [facility] [place] [address] [place] Platelet mean volume (Bld) [Entitic vol] 9.8 fL Normal 9.0-12.7 [facility] Comment on above: Order Comment: Speci men Type: BLOOD SPECIMENOrdering Facility: [facility] Address: [address] [place] [address] Performed By: #### 5 8410-2 ####[facility] LABCLIA [id number] [place] [address] [place] Platelets (Bld) [#/Vol] 281 10*3/uL Normal 150-400 [facility] Comment on above: Order Comment: Speci men Type: BLOOD SPECIMENOrdering Facility: [facility] Address: [address] [place] [address] Performed By: #### 5 8410-2 ####[facility] LABCLIA [id number] [facility] [place] [address] [place] RBC (Bld) [#/Vol] 4.36 10*6/uL Normal 3.90-5.20 [facility] Comment on above: Order Comment: Speci men Type: BLOOD SPECIMENOrdering Facility: [facility] Address: [address] [place] [address] Performed By: #### 5 8410-2 ####[facility] LABCLIA [id number] [facility] [place] [id number] [place] WBC (Bld) [#/Vol] 6.49 10*3/uL Normal 3.70-11.00 [facility] Comment on above: Order Comment: Speci men Type: BLOOD SPECIMENOrdering Facility: [facility] Address: [address] [place] [address] Performed By: #### 5 8410-2 ####[facility] LABCLIA [id number] [place] [address] [place] CNOVon 11-15-2024 CNOV Normal [facility] ECG COMPLETEon 11-15-2024 ECG COMPLETE Normal [facility] Lipid 1996 panelon Cholesterol [Mass/Vol] 171 mg/dL Normal <200 [facility] Comment on above: Order Comment: Speci men Type: BLOOD SPECIMENOrdering Facility: [facility] Address: [address] [place] [address] Result Comment: <200 mg/dL, Desirable 200-239 mg/dL, Borderline high>239 mg/dL, High Performed By: #### 2 4321-2, 10827-0 ####[facility] LABCLIA [id number] [place] [address] [place] Cholesterol in HDL [Mass/Vol] 62 mg/dL Normal >39 [facility] Comment on above: Order Comment: Speci men Type: BLOOD SPECIMENOrdering Facility: [facility] Address: [address] [place] [address] Result Comment: 40-5 9 mg/dL, Acceptable>59 mg/dL, High: Negative risk factor for coronary heart disease<40 mg/dL, Low: Positive risk factor for coronary heart disease Performed By: #### 2 4321-2, 00469-1 ####[facility] LABIA [id number] [place] [id number] [place] Cholesterol in LDL [Mass/Vol] 95 mg/dL Normal <100 [facility] Comment on above: Order Comment: Speci men Type: BLOOD SPECIMENOrdering Facility: [facility] Address: [address] [place] [address] Result Comment: <100 mg/dL, Optimal 100-129 mg/dL, Near optimal/above optimal 130-159 mg/dL, Borderline high 160-189 mg/dL, High>189 mg/dL, Very highSecondary prevention optimal LDL Cholesterol levels are recommended to be <70 mg/dLLDL cholesterol is calculated using the Lowery-NIH equation. Performed By: #### 2 4321-2, 12596-1 ####[facility] LABCLIA [id number] [place] [address] [place] Cholesterol in LDL/Cholesterol in HDL [Mass ratio] 1.53 {ratio} Normal <2.54 [facility] Comment on above: Order Comment: Speci men Type: BLOOD SPECIMENOrdering Facility: [facility] Address: [address] [place] [address] Result Comment: Juan C maciel:1. National Cholesterol Education Program ATP III Guideline At-A-Glance Quick Desk Reference: National Heart, Lung, and Blood Drain. National Institutes of Health. 2001: NIH Publication No. 01-3305.2. An International Atherosclerosis Society position paper: global recommendations for the management of dyslipidemia: executive summary, Atherosclerosis. 2014: 232(2):410-413. Performed By: #### 2 432-, 73915-5 ####[facility] LABIA [id number] [place] [address] [place] Cholesterol in VLDL [Mass/Vol] 12 mg/dL Normal <30 [facility] Comment on above: Order Comment: Neoi men Type: BLOOD SPECIMENOrdering Facility: [facility] Address: [address] [place] [address] Performed By: #### 2 432-2, 65849-2 ####[facility] LABIA [id number] [place] [id number] [place] Cholesterol non HDL [Mass/Vol] 109 mg/dL Normal <130 [facility] Comment on above: Order Comment: Neoi men Type: BLOOD SPECIMENOrdering Facility: [facility] Address: [address] [place] [address] Result Comment: <130 mg/dL, Optimal 130-159 mg/dL, Near optimal/above optimal 160-189 mg/dL, Borderline high 190-219 mg/dL, High>219 mg/dL, Very highSecondary prevention optimal non HDL Cholesterol levels are recommended to be <100 mg/dL Performed By: #### 2 4321-2, 31644-2 ####[facility] LABCLIA [id number] [facility] [address] [place] [address] [place] Cholesterol.total/Cho lesterol in HDL [Mass ratio] 2.76 {ratio} Normal <5.10 [facility] Comment on above: Order Comment: Speci men Type: BLOOD SPECIMENOrdering Facility: [facility] Address: [address] [place] [address] Performed By: #### 2 432-2, 77122-1 ####[facility] LABCLIA [id number] [address], [address] [place] FASTING TIME 0 hrs Normal [facility] Comment on above: Order Comment: Speci men Type: BLOOD SPECIMENOrdering Facility: [facility] Address: [address] [place] [address] Performed By: #### 2 4320-2, 77403-5 ####[facility] LABCLIA [id number] [address], [facility] [place] Triglyceride [Mass/Vol] 73 mg/dL Normal <150 [facility] Comment on above: Order Comment: Speci men Type: BLOOD SPECIMENOrdering Facility: [facility] Address: [address] [place] [address] Result Comment: <150 mg/dL, Normal 150-199 mg/dL, Borderline high 200-499 mg/dL, High>499 mg/dL, Very high Performed By: #### 2 432-2, 05659-3 ####[facility] LABCLIA [id number] [address] [place] [address] [place] CNPNon 10-25-2024 CNPN Normal [facility] CBC panel Auto (Bld)on 09-24 Erythrocyte distribution width (RBC) [Ratio] 15.1 % High 11.5-15.0 [facility] Comment on above: Order Comment: Speci men Type: BLOOD SPECIMENOrdering Facility: [facility] Address: [address] [place] [address] Performed By: #### 5 8410-2 ####[facility] LABIA [id number] [place] [address] [place] Hematocrit (Bld) [Volume fraction] 32.6 % Low 36.0-46.0 [facility] Comment on above: Order Comment: Speci men Type: BLOOD SPECIMENOrdering Facility: [facility] Address: [address] [place] [address] Performed By: #### 5 8410-2 ####[facility] LABIA [id number] [place] [address] [place] Hemoglobin (Bld) [Mass/Vol] 10.1 g/dL Low 11.5-15.5 [facility] Comment on above: Order Comment: Speci men Type: BLOOD SPECIMENOrdering Facility: [facility] Address: [address] [place] [address] Performed By: #### 5 8410-2 ####[facility] LABIA [id number] [place] [address] [place] MCH (RBC) [Entitic mass] 27.9 pg Normal 26.0-34.0 [facility] Comment on above: Order Comment: Speci men Type: BLOOD SPECIMENOrdering Facility: [facility] Address: [address] [place] [address] Performed By: #### 5 8410-2 ####[facility] LABIA [id number] [place] [address] [place] MCHC (RBC) [Mass/Vol] 31.0 g/dL Normal 30.5-36.0 [facility] Comment on above: Order Comment: Speci men Type: BLOOD SPECIMENOrdering Facility: [facility] Address: [address] [place] [address] Performed By: #### 5 8410-2 ####[facility] LABCLIA [id number] [place] [address] [place] MCV (RBC) [Entitic vol] 90.1 fL Normal 80.0-100.0 [facility] Comment on above: Order Comment: Speci men Type: BLOOD SPECIMENOrdering Facility: [facility] Address: [address] [place] [address] Performed By: #### 5 8410-2 ####[facility] LABCLIA [id number] [place] [address] [place] Nucleated RBC (Bld) [#/Vol] 10*3/uL Normal <0.01 [facility] Comment on above: Order Comment: Speci men Type: BLOOD SPECIMENOrdering Facility: [facility] Address: [address] [place] [address] Performed By: #### 5 8410-2 ####[facility] LABCLIA [id number] [place] [address] [place] Platelet mean volume (Bld) [Entitic vol] 9.0 fL Normal 9.0-12.7 [facility] Comment on above: Order Comment: Speci men Type: BLOOD SPECIMENOrdering Facility: [facility] Address: [address] [place] [address] Performed By: #### 5 8410-2 ####[facility] LABCLIA [id number] [place] [id number] [place] Platelets (Bld) [#/Vol] 428 10*3/uL High 150-400 [facility] Comment on above: Order Comment: Speci men Type: BLOOD SPECIMENOrdering Facility: [facility] Address: [address] [place] [address] Performed By: #### 5 8410-2 ####[facility] LABCLIA [id number] [address] [address] [place] RBC (Bld) [#/Vol] 3.62 10*6/uL Low 3.90-5.20 [facility] Comment on above: Order Comment: Speci men Type: BLOOD SPECIMENOrdering Facility: [facility] Address: [address] [place] [address] Performed By: #### 5 8410-2 ####[facility] LABIA [id number] [place] [address] [place] WBC (Bld) [#/Vol] 5.10 10*3/uL Normal 3.70-11.00 [facility] Comment on above: Order Comment: Speci men Type: BLOOD SPECIMENOrdering Facility: [facility] Address: [address] [place] [address] Performed By: #### 5 8410-2 ####[facility] [id number] [place] [address] [place] CNOVon 09-24-2024 CNOV Normal [facility] CNPNon 09-24-2024 CNPN Normal [facility] Comprehensive metabolic 2000 panelon 09-24-2024 Albumin [Mass/Vol] 3.8 g/dL Low 3.9-4.9 [facility] Comment on above: Order Comment: Speci men Type: BLOOD SPECIMENOrdering Facility: [facility] Address: [address] [place] [address] Performed By: #### 2 4323-8 ####[facility] LABIA [id number] [place] [address] [place] ALP [Catalytic activity/Vol] 68 U/L Normal 34-123 [facility] Comment on above: Order Comment: Speci men Type: BLOOD SPECIMENOrdering Facility: [facility] Address: [address] [place] [address] Performed By: #### 2 4323-8 ####[facility] LABCLIA [id number] [facility] [address] [address] [place] ALT [Catalytic activity/Vol] 7 U/L Normal 7-38 [facility] Comment on above: Order Comment: Speci men Type: BLOOD SPECIMENOrdering Facility: [facility] Address: [address] [place], [place] [address] Performed By: #### 2 4323-8 ####[facility] LABCLIA [id number] [facility] [address] [place] [address] [place] Anion gap [Moles/Vol] 12 mmol/L Normal 8-15 [facility] Comment on above: Order Comment: Speci men Type: BLOOD SPECIMENOrdering Facility: [facility] Address: [address] [place] [address] Performed By: #### 2 4323-8 ####[facility] LABCLIA [id number] [place] [address] [place] AST [Catalytic activity/Vol] 17 U/L Normal 13-35 [facility] Comment on above: Order Comment: Speci men Type: BLOOD SPECIMENOrdering Facility: [facility] Address: [address] [place], [place] [address] Performed By: #### 2 4323-8 ####[facility] LABCLIA [id number] [facility] [place] [id number] [place] Bilirubin [Mass/Vol] 0.2 mg/dL Normal 0.2-1.3 [facility] Comment on above: Order Comment: Speci men Type: BLOOD SPECIMENOrdering Facility: [facility] Address: [address] [place], [place] [address] Performed By: #### 2 4323-8 ####[facility] LABCLIA [id number] [facility] [address] [place] [address] [place] Calcium [Mass/Vol] 10.0 mg/dL Normal 8.5-10.2 [facility] Comment on above: Order Comment: Speci men Type: BLOOD SPECIMENOrdering Facility: [facility] Address: [address] [place] [address] Performed By: #### 2 4323-8 ####[facility] LABCLIA [id number] [address] [address] [place] Chloride [Moles/Vol] 107 mmol/L Normal 98-107 [facility] Comment on above: Order Comment: Speci men Type: BLOOD SPECIMENOrdering Facility: [facility] Address: [address] [place] [address] Performed By: #### 2 4323-8 ####[facility] LABCLIA [id number] [place] [address] [place] CO2 [Moles/Vol] 24 mmol/L Normal 22-30 [facility] Comment on above: Order Comment: Speci men Type: BLOOD SPECIMENOrdering Facility: [facility] Address: [address] [place] [address] Performed By: #### 2 4323-8 ####[facility] LABCLIA [id number] [place] [id number] [place] Creatinine [Mass/Vol] 0.66 mg/dL Normal 0.58-0.96 [facility] Comment on above: Order Comment: Speci men Type: BLOOD SPECIMENOrdering Facility: [facility] Address: [address] [place] [address] Performed By: #### 2 4323-8 ####[facility] LABCLIA [id number] [place] [id number] [place] Creatinine and Glomerular filtration rate.predicted panel (S/P/Bld) 97 mL/min/1.73m??? Normal >=60 [facility] Comment on above: Order Comment: Speci men Type: BLOOD SPECIMENOrdering Facility: [facility] Address: [address] [place] [address] Result Comment: Lexie mated Glomerular Filtration Rate (eGFR) is calculated using the 2020 CKD-EPI creatinine equation. This equation utilizes serum creatinine, sex, and age as parameters. The creatinine assay has traceable calibration to isotope dilution-mass spectrometry. Refer to KDIGO guidelines for clinical interpretation. In patients with unstable renal function, e.g. those with acute kidney injury, the eGFR may not accurately reflect actual GFR. Performed By: #### 2 4323-8 ####[facility] LABIA [id number] [address] [address] [place] Glucose [Mass/Vol] 73 mg/dL Low 74-99 [facility] Comment on above: Order Comment: Milo peters Type: BLOOD SPECIMENOrdering Facility: [facility] Address: [address] [place] [address] Result Comment: The [place] Diabetes Association (ADA) provides guidance for cutoff values for fasting glucose and random glucose. The ADA defines fasting as no caloric intake for at least 8 hours. Fasting plasma glucose results between 100 to 125 mg/dL indicate increased risk for diabetes (prediabetes).Fasting plasma glucose results greater than or equal to 126 mg/dL meet the criteria for diagnosis of diabetes. In the absence of unequivocal hyperglycemia, results should be confirmed by repeat testing. In a patient with classic symptoms of hyperglycemia or hyperglycemic crisis, random plasma glucose results greater than or equal to 200 mg/dL meet the criteria for diagnosis of diabetes.Reference: Standards of Medical Care in Diabetes 2016, [place] Diabetes Association. Diabetes Care. 2016.39(Suppl 1). Performed By: #### 2 4323-8 ####[facility] LABIA [id number] [address] [address] [place] Potassium [Moles/Vol] 4.4 mmol/L Normal 3.7-5.1 [facility] Comment on above: Order Comment: Milo peters Type: BLOOD SPECIMENOrdering Facility: [facility] Address: [address] [place] [id number] Performed By: #### 2 4323-8 ####[facility] LABIA [id number] [address] [address] [place] Protein [Mass/Vol] 7.8 g/dL Normal 6.3-8.0 [facility] Comment on above: Order Comment: Speci men Type: BLOOD SPECIMENOrdering Facility: [facility] Address: [address] [place] [address] Performed By: #### 2 4323-8 ####[facility] LABCLIA [id number] [place] [id number] [place] Sodium [Moles/Vol] 143 mmol/L Normal 136-144 [facility] Comment on above: Order Comment: Speci men Type: BLOOD SPECIMENOrdering Facility: [facility] Address: [address] [place] [address] Performed By: #### 2 4323-8 ####[facility] LABCLIA [id number] [place] [address] [place] Urea nitrogen [Mass/Vol] 18 mg/dL Normal 7-21 [facility] Comment on above: Order Comment: Speci men Type: BLOOD SPECIMENOrdering Facility: [facility] Address: [address] [place] [address] Performed By: #### 2 4323-8 ####[facility] LABCLIA [id number] [place] [id number] [place] ECG COMPLETEon 09-24-2024 ECG COMPLETE Normal [facility] XR CHEST 2V FRONTAL/LATon XR CHEST 2V FRONTAL/LAT Normal [facility] XR Chest PA and Lateralon IMPRESSION: See result. Assistant Cook: CALLI Transcribe Date/Time: Sep 24 2024 2:14P Dictated by : RENETTA LATHAM, DO This examination was interpreted and the report reviewed and electronically signed by: ELISEO HERNANDEZ MD on Sep 24 2024 5:02PM [facility] DIVISION OF RADIOLOGY * * *Final Report* * * DATE OF EXAM: Sep 24 2024 9:32AM JIX [id number] - XR CHEST 2V FRONTAL/LAT / PROCEDURE REASON: Surgery follow-up * * * * Physician Interpretation * * * * EXAMINATION: CHEST RADIOGRAPH (2 VIEW FRONTAL & LATERAL) CLINICAL HISTORY: Surgery follow-up MQ: [id number] EXAM DATE/TIME: 09/24/2024 9:32 AM COMPARISON: Chest radiograph 09/14/2024, 09/13/2024, CTA chest 07/11/2024, 06/27/2019 RESULT: Lines, tubes, and devices: None. Lungs and pleura: Bilateral basilar opacities reflecting mucoid impactions with background bronchiectasis reflecting a sequela of chronic infectious/inflammatory process as seen on multiple prior exams. Stable blunting of the bilateral costophrenic angles with no sizable pleural effusion. No pneumothorax. Cardiomediastinal silhouette: Stable cardiomediastinal silhouette. Interval resolution in pneumomediastinum. Bones and soft tissues: Interval marked improvement of subcutaneous emphysema in cervical soft tissue. Intact medial sternotomy wires. DIVISION OF RADIOLOGY Provider, [facility] - 09/24/2024 * * *Final Report* * * DATE OF EXAM: Sep 24 2024 9:32AM JIX [id number] - XR CHEST 2V FRONTAL/LAT / PROCEDURE REASON: Surgery follow-up * * * * Physician Interpretation * * * * EXAMINATION: CHEST RADIOGRAPH (2 VIEW FRONTAL & LATERAL) CLINICAL HISTORY: Surgery follow-up MQ: [id number] EXAM DATE/TIME: 09/24/2024 9:32 AM COMPARISON: Chest radiograph 09/14/2024, 09/13/2024, CTA chest 07/11/2024, 06/27/2019 RESULT: Lines, tubes, and devices: None. Lungs and pleura: Bilateral basilar opacities reflecting mucoid impactions with background bronchiectasis reflecting a sequela of chronic infectious/inflammatory process as seen on multiple prior exams. Stable blunting of the bilateral costophrenic angles with no sizable pleural effusion. No pneumothorax. Cardiomediastinal silhouette: Stable cardiomediastinal silhouette. Interval resolution in pneumomediastinum. Bones and soft tissues: Interval marked improvement of subcutaneous emphysema in cervical soft tissue. Intact medial sternotomy wires. IMPRESSION IMPRESSION: See result. Assistant Cook: CALLI Transcribe Date/Time: Sep 24 2024 2:14P Dictated by : BALKARAN YEISON, DO This examination was interpreted and the report reviewed and electronically signed by: ELISEO HERNANDEZ MD on Sep 24 2024 5:02PM EST [facility] Radiology Study observation (narrative) [facility] XR Chest PA and LateralOrder ed By: Ccf Provider on 09-24-2024 [facility] CBC panel Auto (Bld)on 09-14 Erythrocyte distribution width (RBC) [Ratio] 15.9 % High 11.5-15.0 [facility] Comment on above: Order Comment: Speci men Type: BLOOD SPECIMENOrdering Facility: [facility] Address: [address] [place] [address] Performed By: #### 5 8410-2 ####[facility] LABIA [id number] [place] [address] [place] Hematocrit (Bld) [Volume fraction] 29.2 % Low 36.0-46.0 [facility] Comment on above: Order Comment: Speci men Type: BLOOD SPECIMENOrdering Facility: [facility] Address: [address] [place] [address] Performed By: #### 5 8410-2 ####[facility] LABIA [id number] [place] [address] [place] Hemoglobin (Bld) [Mass/Vol] 9.1 g/dL Low 11.5-15.5 [facility] Comment on above: Order Comment: Speci men Type: BLOOD SPECIMENOrdering Facility: [facility] Address: [address] [place] [address] Performed By: #### 5 8410-2 ####[facility] LABIA [id number] [place] [address] [place] MCH (RBC) [Entitic mass] 27.7 pg Normal 26.0-34.0 [facility] Comment on above: Order Comment: Speci men Type: BLOOD SPECIMENOrdering Facility: [facility] Address: [address] [place] [address] Performed By: #### 5 8410-2 ####[facility] LABCLIA [id number] [place] [address] [place] MCHC (RBC) [Mass/Vol] 31.2 g/dL Normal 30.5-36.0 [facility] Comment on above: Order Comment: Speci men Type: BLOOD SPECIMENOrdering Facility: [facility] Address: [address] [place] [address] Performed By: #### 5 8410-2 ####[facility] LABIA [id number] [place] [address] [place] MCV (RBC) [Entitic vol] 89.0 fL Normal 80.0-100.0 [facility] Comment on above: Order Comment: Speci men Type: BLOOD SPECIMENOrdering Facility: [facility] Address: [address] [place] [address] Performed By: #### 5 8410-2 ####[facility] LABIA [id number] [place] [address] [place] Nucleated RBC (Bld) [#/Vol] 10*3/uL Normal <0.01 [facility] Comment on above: Order Comment: Speci men Type: BLOOD SPECIMENOrdering Facility: [facility] Address: [address] [place] [address] Performed By: #### 5 8410-2 ####[facility] LABIA [id number] [place] [address] [place] Platelet mean volume (Bld) [Entitic vol] 9.8 fL Normal 9.0-12.7 [facility] Comment on above: Order Comment: Speci men Type: BLOOD SPECIMENOrdering Facility: [facility] Address: [address] [place] [address] Performed By: #### 5 8410-2 ####[facility] LABIA [id number] [place] [address] [place] Platelets (Bld) [#/Vol] 211 10*3/uL Normal 150-400 [facility] Comment on above: Order Comment: Speci men Type: BLOOD SPECIMENOrdering Facility: [facility] Address: [address] [place] [address] Performed By: #### 5 8410-2 ####[facility] LABCLIA [id number] [place] [address] [place] RBC (Bld) [#/Vol] 3.28 10*6/uL Low 3.90-5.20 [facility] Comment on above: Order Comment: Speci men Type: BLOOD SPECIMENOrdering Facility: [facility] Address: [address] [place] [address] Performed By: #### 5 8410-2 ####[facility] LABIA [id number] [place] [address] [place] WBC (Bld) [#/Vol] 7.17 10*3/uL Normal 3.70-11.00 [facility] Comment on above: Order Comment: Speci men Type: BLOOD SPECIMENOrdering Facility: [facility] Address: [address] [place] [address] Performed By: #### 5 8410-2 ####[facility] LABIA [id number] [place] [address] [place] CONSULT PROGon 09-14-2024 CONSULT PROG Normal [facility] Comprehensive metabolic 2000 panelon 09-14-2024 Albumin [Mass/Vol] 3.2 g/dL Low 3.9-4.9 [facility] Comment on above: Order Comment: Speci men Type: BLOOD SPECIMENOrdering Facility: [facility] Address: [address] [place] [address] Performed By: #### 2 4323-8 ####[facility] LABIA [id number] [place] [address] [place] ALP [Catalytic activity/Vol] 45 U/L Normal 34-123 [facility] Comment on above: Order Comment: Speci men Type: BLOOD SPECIMENOrdering Facility: [facility] Address: [address] [id number] Performed By: #### 2 4323-8 ####[facility] LABCLIA [id number] [address] [place] [address] [place] ALT [Catalytic activity/Vol] 9 U/L Normal 7-38 [facility] Comment on above: Order Comment: Speci men Type: BLOOD SPECIMENOrdering Facility: [facility] Address: [address] [place] [address] Performed By: #### 2 4323-8 ####[facility] LABCLIA [id number] [address] [place] [address] [place] Anion gap [Moles/Vol] 8 mmol/L Normal 8-15 [facility] Comment on above: Order Comment: Speci men Type: BLOOD SPECIMENOrdering Facility: [facility] Address: [address] [place] [address] Performed By: #### 2 4323-8 ####[facility] LABCLIA [id number] [place] [id number] [place] AST [Catalytic activity/Vol] 16 U/L Normal 13-35 [facility] Comment on above: Order Comment: Speci men Type: BLOOD SPECIMENOrdering Facility: [facility] Address: [address] [place], [place] [address] Performed By: #### 2 4323-8 ####[facility] LABCLIA [id number] [address] [address] [place] Bilirubin [Mass/Vol] mg/dL Low 0.2-1.3 [facility] Comment on above: Order Comment: Speci men Type: BLOOD SPECIMENOrdering Facility: [facility] Address: [address] [place], [place] [address] Performed By: #### 2 4323-8 ####[facility] LABCLIA [id number] [facility] [address] [address] [place] Calcium [Mass/Vol] 9.4 mg/dL Normal 8.5-10.2 [facility] Comment on above: Order Comment: Speci men Type: BLOOD SPECIMENOrdering Facility: [facility] Address: [address] [place] [address] Performed By: #### 2 4323-8 ####[facility] LABCLIA [id number] [place] [id number] [place] Chloride [Moles/Vol] 104 mmol/L Normal 98-107 [facility] Comment on above: Order Comment: Speci men Type: BLOOD SPECIMENOrdering Facility: [facility] Address: [address] [place] [address] Performed By: #### 2 4323-8 ####[facility] LABCLIA [id number] [place] [address] [place] CO2 [Moles/Vol] 27 mmol/L Normal 22-30 [facility] Comment on above: Order Comment: Speci men Type: BLOOD SPECIMENOrdering Facility: [facility] Address: [address] [place] [address] Performed By: #### 2 4323-8 ####[facility] LABCLIA [id number] [place] [id number] [place] Creatinine [Mass/Vol] 0.57 mg/dL Low 0.58-0.96 [facility] Comment on above: Order Comment: Speci men Type: BLOOD SPECIMENOrdering Facility: [facility] Address: [address] [place] [address] Performed By: #### 2 4323-8 ####[facility] LABCLIA [id number] [place] [id number] [place] Creatinine and Glomerular filtration rate.predicted panel (S/P/Bld) 101 mL/min/1.73m??? Normal >=60 [facility] Comment on above: Order Comment: Milo peters Type: BLOOD SPECIMENOrdering Facility: [facility] Address: [address] [place] [address] Result Comment: Lexie mated Glomerular Filtration Rate (eGFR) is calculated using the 2020 CKD-EPI creatinine equation. This equation utilizes serum creatinine, sex, and age as parameters. The creatinine assay has traceable calibration to isotope dilution-mass spectrometry. Refer to KDIGO guidelines for clinical interpretation. In patients with unstable renal function, e.g. those with acute kidney injury, the eGFR may not accurately reflect actual GFR. Performed By: #### 2 4323-8 ####[facility] LABIA [id number] [place] [address] [place] Glucose [Mass/Vol] 111 mg/dL High 74-99 [facility] Comment on above: Order Comment: Milo peters Type: BLOOD SPECIMENOrdering Facility: [facility] Address: [address] [place] [address] Result Comment: The [place] [employer] (ADA) provides guidance for cutoff values for fasting glucose and random glucose. The ADA defines fasting as no caloric intake for at least 8 hours. Fasting plasma glucose results between 100 to 125 mg/dL indicate increased risk for diabetes (prediabetes).Fasting plasma glucose results greater than or equal to 126 mg/dL meet the criteria for diagnosis of diabetes. In the absence of unequivocal hyperglycemia, results should be confirmed by repeat testing. In a patient with classic symptoms of hyperglycemia or hyperglycemic crisis, random plasma glucose results greater than or equal to 200 mg/dL meet the criteria for diagnosis of diabetes.Reference: Standards of Medical Care in Diabetes 2016, [place] [employer]. Diabetes Care. 2016.39(Suppl 1). Performed By: #### 2 4323-8 ####[facility] [id number] [place] [address] [place] Potassium [Moles/Vol] 4.4 mmol/L Normal 3.7-5.1 [facility] Comment on above: Order Comment: Milo peters Type: BLOOD SPECIMENOrdering Facility: [facility] Address: [address] [place] [address] Performed By: #### 2 4323-8 ####[facility] LABCLIA [id number] [place] [id number] [place] Protein [Mass/Vol] 6.4 g/dL Normal 6.3-8.0 [facility] Comment on above: Order Comment: Speci men Type: BLOOD SPECIMENOrdering Facility: [facility] Address: [address] [place] [address] Performed By: #### 2 4323-8 ####[facility] LABCLIA [id number] [place] [address] [place] Sodium [Moles/Vol] 139 mmol/L Normal 136-144 [facility] Comment on above: Order Comment: Speci men Type: BLOOD SPECIMENOrdering Facility: [facility] Address: [address] [place] [address] Performed By: #### 2 4323-8 ####[facility] LABIA [id number] [place] [id number] [place] Urea nitrogen [Mass/Vol] 24 mg/dL High 7-21 [facility] Comment on above: Order Comment: Speci men Type: BLOOD SPECIMENOrdering Facility: [facility] Address: [address] [place] [address] Performed By: #### 2 4323-8 ####[facility] LABIA [id number] [place] [id number] [place] XR CHEST 1V FRONTAL PORTon 0 09-14-2024 XR CHEST 1V FRONTAL PORT Normal [facility] CBC panel Auto (Bld)on 09-13 Erythrocyte distribution width (RBC) [Ratio] 15.8 % High 11.5-15.0 [facility] Comment on above: Order Comment: Speci men Type: BLOOD SPECIMENOrdering Facility: [facility] Address: [address] [place] [address] Performed By: #### 5 8410-2 ####[facility] LABCLIA [id number] [place] [address] [place] Hematocrit (Bld) [Volume fraction] 29.3 % Low 36.0-46.0 [facility] Comment on above: Order Comment: Speci men Type: BLOOD SPECIMENOrdering Facility: [facility] Address: [address] [place] [address] Performed By: #### 5 8410-2 ####[facility] LABIA [id number] [place] [address] [place] Hemoglobin (Bld) [Mass/Vol] 9.1 g/dL Low 11.5-15.5 [facility] Comment on above: Order Comment: Speci men Type: BLOOD SPECIMENOrdering Facility: [facility] Address: [address] [place] [address] Performed By: #### 5 8410-2 ####[facility] LABIA [id number] [place] [address] [place] MCH (RBC) [Entitic mass] 27.7 pg Normal 26.0-34.0 [facility] Comment on above: Order Comment: Speci men Type: BLOOD SPECIMENOrdering Facility: [facility] Address: [address] [place] [address] Performed By: #### 5 8410-2 ####[facility] LABIA [id number] [place] [address] [place] MCHC (RBC) [Mass/Vol] 31.1 g/dL Normal 30.5-36.0 [facility] Comment on above: Order Comment: Speci men Type: BLOOD SPECIMENOrdering Facility: [facility] Address: [address] [place] [address] Performed By: #### 5 8410-2 ####[facility] LABIA [id number] [place] [address] [place] MCV (RBC) [Entitic vol] 89.3 fL Normal 80.0-100.0 [facility] Comment on above: Order Comment: Speci men Type: BLOOD SPECIMENOrdering Facility: [facility] Address: [address] [place] [address] Performed By: #### 5 8410-2 ####[facility] LABCLIA [id number] [place] [address] [place] Nucleated RBC (Bld) [#/Vol] 10*3/uL Normal <0.01 [facility] Comment on above: Order Comment: Speci men Type: BLOOD SPECIMENOrdering Facility: [facility] Address: [address] [place] [address] Performed By: #### 5 8410-2 ####[facility] LABIA [id number] [place] [address] [place] Platelet mean volume (Bld) [Entitic vol] 10.0 fL Normal 9.0-12.7 [facility] Comment on above: Order Comment: Speci men Type: BLOOD SPECIMENOrdering Facility: [facility] Address: [address] [place] [address] Performed By: #### 5 8410-2 ####[facility] LABIA [id number] [place] [address] [place] Platelets (Bld) [#/Vol] 182 10*3/uL Normal 150-400 [facility] Comment on above: Order Comment: Speci men Type: BLOOD SPECIMENOrdering Facility: [facility] Address: [address] [place] [address] Performed By: #### 5 8410-2 ####[facility] LABCLIA [id number] [place] [address] [place] RBC (Bld) [#/Vol] 3.28 10*6/uL Low 3.90-5.20 [facility] Comment on above: Order Comment: Speci men Type: BLOOD SPECIMENOrdering Facility: [facility] Address: [address] [place], [place] [address] Performed By: #### 5 8410-2 ####[facility] LABCLIA [id number] [address] [address] [place] WBC (Bld) [#/Vol] 4.53 10*3/uL Normal 3.70-11.00 [facility] Comment on above: Order Comment: Speci men Type: BLOOD SPECIMENOrdering Facility: [facility] Address: [address] [place] [address] Performed By: #### 5 8410-2 ####[facility] LABCLIA [id number] [place] [address] [place] CONSULT PROGon 09-13-2024 CONSULT PROG Normal [facility] metabolic 2000 panelon 09-13-2024 Albumin [Mass/Vol] 3.4 g/dL Low 3.9-4.9 [facility] Comment on above: Order Comment: Speci men Type: BLOOD SPECIMENOrdering Facility: [facility] Address: [address] [place] [address] Performed By: #### 2 4323-8 ####[facility] LABCLIA [id number] [place] [id number] [place] ALP [Catalytic activity/Vol] 43 U/L Normal 34-123 [facility] Comment on above: Order Comment: Speci men Type: BLOOD SPECIMENOrdering Facility: [facility] Address: [address] [place], [place] [address] Performed By: #### 2 4323-8 ####[facility] LABIA [id number] [address] [address] [place] ALT [Catalytic activity/Vol] 11 U/L Normal 7-38 [facility] Comment on above: Order Comment: Speci men Type: BLOOD SPECIMENOrdering Facility: [facility] Address: [address] [place] [address] Performed By: #### 2 4323-8 ####[facility] LABCLIA [id number] [facility] [address] [address] [place] Anion gap [Moles/Vol] 8 mmol/L Normal 8-15 [facility] Comment on above: Order Comment: Speci men Type: BLOOD SPECIMENOrdering Facility: [facility] Address: [address] [place] [address] Performed By: #### 2 4323-8 ####[facility] LABCLIA [id number] [facility] [address], [facility] [place] AST [Catalytic activity/Vol] 24 U/L Normal 13-35 [facility] Comment on above: Order Comment: Speci men Type: BLOOD SPECIMENOrdering Facility: [facility] Address: [address] [place] [address] Performed By: #### 2 4323-8 ####[facility] LABCLIA [id number] [place] [id number] [place] Bilirubin [Mass/Vol] 0.2 mg/dL Normal 0.2-1.3 [facility] Comment on above: Order Comment: Speci men Type: BLOOD SPECIMENOrdering Facility: [facility] Address: [address] [place] [address] Performed By: #### 2 4323-8 ####[facility] LABCLIA [id number] [place] [id number] [place] Calcium [Mass/Vol] 8.9 mg/dL Normal 8.5-10.2 [facility] Comment on above: Order Comment: Speci men Type: BLOOD SPECIMENOrdering Facility: [facility] Address: [address] [place], [place] [address] Performed By: #### 2 4323-8 ####[facility] LABCLIA [id number] [facility] [address] [address] [place] Chloride [Moles/Vol] 102 mmol/L Normal 98-107 [facility] Comment on above: Order Comment: Speci men Type: BLOOD SPECIMENOrdering Facility: [facility] Address: [address] [place] [address] Performed By: #### 2 4323-8 ####[facility] LABCLIA [id number] [place] [id number] [place] CO2 [Moles/Vol] 29 mmol/L Normal 22-30 [facility] Comment on above: Order Comment: Speci men Type: BLOOD SPECIMENOrdering Facility: [facility] Address: [address] [place] [address] Performed By: #### 2 4323-8 ####[facility] LABIA [id number] [address] [place] OF [facility] Creatinine [Mass/Vol] 0.63 mg/dL Normal 0.58-0.96 [facility] Comment on above: Order Comment: Speci men Type: BLOOD SPECIMENOrdering Facility: [facility] Address: [address] [place] [address] Performed By: #### 2 4323-8 ####[facility] LABIA [id number] [address] Creatinine and Glomerular filtration rate.predicted panel (S/P/Bld) 99 mL/min/1.73m??? Normal >=60 [facility] Comment on above: Order Comment: Speci men Type: BLOOD SPECIMENOrdering Facility: [facility] Address: [address] [place] [address] Result Comment: Lexie mated Glomerular Filtration Rate (eGFR) is calculated using the 2020 CKD-EPI creatinine equation. This equation utilizes serum creatinine, sex, and age as parameters. The creatinine assay has traceable calibration to isotope dilution-mass spectrometry. Refer to KDIGO guidelines for clinical interpretation. In patients with unstable renal function, e.g. those with acute kidney injury, the eGFR may not accurately reflect actual GFR. Performed By: #### 2 4323-8 ####[facility] LABCLIA [id number] [place] [id number] [place] Glucose [Mass/Vol] 103 mg/dL High 74-99 [facility] Comment on above: Order Comment: Speci men Type: BLOOD SPECIMENOrdering Facility: [facility] Address: [address] [place] [address] Result Comment: The [place] Diabetes Association (ADA) provides guidance for cutoff values for fasting glucose and random glucose. The ADA defines fasting as no caloric intake for at least 8 hours. Fasting plasma glucose results between 100 to 125 mg/dL indicate increased risk for diabetes (prediabetes).Fasting plasma glucose results greater than or equal to 126 mg/dL meet the criteria for diagnosis of diabetes. In the absence of unequivocal hyperglycemia, results should be confirmed by repeat testing. In a patient with classic symptoms of hyperglycemia or hyperglycemic crisis, random plasma glucose results greater than or equal to 200 mg/dL meet the criteria for diagnosis of diabetes.Reference: Standards of Medical Care in Diabetes 2016, [place] [employer]. Diabetes Care. 2016.39(Suppl 1). Performed By: #### 2 4323-8 ####[facility] LABCLIA [id number] [place] [id number] [place] Potassium [Moles/Vol] 3.9 mmol/L Normal 3.7-5.1 [facility] Comment on above: Order Comment: Speci men Type: BLOOD SPECIMENOrdering Facility: [facility] Address: [address] [place] [address] Performed By: #### 2 4323-8 ####[facility] LABIA [id number] [place] [id number] [place] Protein [Mass/Vol] 6.3 g/dL Normal 6.3-8.0 [facility] Comment on above: Order Comment: Speci men Type: BLOOD SPECIMENOrdering Facility: [facility] Address: [address] [place] [address] Performed By: #### 2 4323-8 ####[facility] LABCLIA [id number] [place] [id number] [place] Sodium [Moles/Vol] 139 mmol/L Normal 136-144 [facility] [facility] Comment on above: Order Comment: Speci men Type: BLOOD SPECIMENOrdering Facility: [facility] Address: [address] [place] [address] Performed By: #### 2 4323-8 ####[facility] LABCLIA [id number] [place] [id number] [place] Urea nitrogen [Mass/Vol] 24 mg/dL High 7-21 [facility] Comment on above: Order Comment: Speci men Type: BLOOD SPECIMENOrdering Facility: [facility] Address: [address] [place] [address] Performed By: #### 2 4323-8 ####[facility] LABIA [id number] [place] [id number] [place] POTASSIUMon 09-13-2024 Potassium [Moles/Vol] 4.4 mmol/L Normal 3.7-5.1 [facility] Comment on above: Order Comment: Speci men Type: BLOOD SPECIMENOrdering Facility: [facility] Address: [address] [place] [address] Performed By: #### K 1 ####[facility] LABIA [id number] [place] [id number] [place] XR CHEST 1V FRONTAL PORTon 0 09-13-2024 XR CHEST 1V FRONTAL PORT Normal [facility] ALLIED HEALTHon 09-12-2024 ALLIED HEALTH Normal [facility] CASE MANAGEMon 09-12-2024 CASE MANAGEM Normal [facility] CBC panel Auto (Bld)on 09-12 Erythrocyte distribution width (RBC) [Ratio] 15.9 % High 11.5-15.0 [facility] Comment on above: Order Comment: Speci men Type: BLOOD SPECIMENOrdering Facility: [facility] Address: [address] [place] [address] Performed By: #### 5 8410-2 ####[facility] LABIA [id number] [place] [address] [place] Hematocrit (Bld) [Volume fraction] 29.8 % Low 36.0-46.0 [facility] Comment on above: Order Comment: Speci men Type: BLOOD SPECIMENOrdering Facility: [facility] Address: [address] [place] [address] Performed By: #### 5 8410-2 ####[facility] LABIA [id number] [place] [address] [place] Hemoglobin (Bld) [Mass/Vol] 9.4 g/dL Low 11.5-15.5 [facility] Comment on above: Order Comment: Speci men Type: BLOOD SPECIMENOrdering Facility: [facility] Address: [address] [place] [address] Performed By: #### 5 8410-2 ####[facility] LABIA [id number] [place] [address] [place] MCH (RBC) [Entitic mass] 28.1 pg Normal 26.0-34.0 [facility] Comment on above: Order Comment: Speci men Type: BLOOD SPECIMENOrdering Facility: [facility] Address: [address] [place] [address] Performed By: #### 5 8410-2 ####[facility] LABIA [id number] [place] [address] [place] MCHC (RBC) [Mass/Vol] 31.5 g/dL Normal 30.5-36.0 [facility] Comment on above: Order Comment: Speci men Type: BLOOD SPECIMENOrdering Facility: [facility] Address: [address] [place] [address] Performed By: #### 5 8410-2 ####[facility] LABIA [id number] [place] [address] [place] MCV (RBC) [Entitic vol] 89.2 fL Normal 80.0-100.0 [facility] Comment on above: Order Comment: Speci men Type: BLOOD SPECIMENOrdering Facility: [facility] Address: [address] [place] [address] Performed By: #### 5 8410-2 ####[facility] LABCLIA [id number] [place] [address] [place] Nucleated RBC (Bld) [#/Vol] 10*3/uL Normal <0.01 [facility] Comment on above: Order Comment: Speci men Type: BLOOD SPECIMENOrdering Facility: [facility] Address: [address] [place] [address] Performed By: #### 5 8410-2 ####[facility] LABIA [id number] [place] [address] [place] Platelet mean volume (Bld) [Entitic vol] 10.0 fL Normal 9.0-12.7 [facility] Comment on above: Order Comment: Speci men Type: BLOOD SPECIMENOrdering Facility: [facility] Address: [address] [place] [address] Performed By: #### 5 8410-2 ####[facility] LABIA [id number] [place] [address] [place] Platelets (Bld) [#/Vol] 165 10*3/uL Normal 150-400 [facility] Comment on above: Order Comment: Speci men Type: BLOOD SPECIMENOrdering Facility: [facility] Address: [address] [place] [address] Performed By: #### 5 8410-2 ####[facility] LABCLIA [id number] [place] [address] [place] RBC (Bld) [#/Vol] 3.34 10*6/uL Low 3.90-5.20 [facility] Comment on above: Order Comment: Speci men Type: BLOOD SPECIMENOrdering Facility: [facility] Address: [address] [place] [address] Performed By: #### 5 8410-2 ####[facility] LABIA [id number] [place] [address] [place] WBC (Bld) [#/Vol] 5.69 10*3/uL Normal 3.70-11.00 [facility] Comment on above: Order Comment: Speci men Type: BLOOD SPECIMENOrdering Facility: [facility] Address: [address] [place] [address] Performed By: #### 5 8410-2 ####[facility] LABIA [id number] [place] [address] [place] CONSULTon 09-12-2024 CONSULT Normal [facility] metabolic 2000 panelon 09-12-2024 Albumin [Mass/Vol] 3.1 g/dL Low 3.9-4.9 [facility] Comment on above: Order Comment: Speci men Type: BLOOD SPECIMENOrdering Facility: [facility] Address: [address] [place] [address] Performed By: #### 2 4323-8 ####[facility] LABIA [id number] [place] [id number] [place] ALP [Catalytic activity/Vol] 46 U/L Normal 34-123 [facility] Comment on above: Order Comment: Speci men Type: BLOOD SPECIMENOrdering Facility: [facility] Address: [address] [place] [address] Performed By: #### 2 4323-8 ####[facility] LABIA [id number] [place] [id number] [place] ALT [Catalytic activity/Vol] 10 U/L Normal 7-38 [facility] Comment on above: Order Comment: Speci men Type: BLOOD SPECIMENOrdering Facility: [facility] Address: [address] [place] [address] Performed By: #### 2 4323-8 ####[facility] LABCLIA [id number] [address] [address] [place] Anion gap [Moles/Vol] 8 mmol/L Normal 8-15 [facility] Comment on above: Order Comment: Speci men Type: BLOOD SPECIMENOrdering Facility: [facility] Address: [address] [place] [address] Performed By: #### 2 4323-8 ####[facility] LABCLIA [id number] [place] [id number] [place] AST [Catalytic activity/Vol] 25 U/L Normal 13-35 [facility] Comment on above: Order Comment: Speci men Type: BLOOD SPECIMENOrdering Facility: [facility] Address: [address] [place] [address] Performed By: #### 2 4323-8 ####[facility] LABCLIA [id number] [place] [address] [place] Bilirubin [Mass/Vol] 0.2 mg/dL Normal 0.2-1.3 [facility] Comment on above: Order Comment: Speci men Type: BLOOD SPECIMENOrdering Facility: [facility] Address: [address] [place] [address] Performed By: #### 2 4323-8 ####[facility] LABCLIA [id number] [place] [id number] [place] Calcium [Mass/Vol] 8.9 mg/dL Normal 8.5-10.2 [facility] Comment on above: Order Comment: Speci men Type: BLOOD SPECIMENOrdering Facility: [facility] Address: [address] [place], [place] [address] Performed By: #### 2 4323-8 ####[facility] LABCLIA [id number] [place] [id number] [place] Chloride [Moles/Vol] 103 mmol/L Normal 98-107 [facility] Comment on above: Order Comment: Speci men Type: BLOOD SPECIMENOrdering Facility: [facility] Address: [address] [place] [address] Performed By: #### 2 4323-8 ####[facility] LABCLIA [id number] [place] [id number] [place] CO2 [Moles/Vol] 27 mmol/L Normal 22-30 [facility] Comment on above: Order Comment: Speci men Type: BLOOD SPECIMENOrdering Facility: [facility] Address: [address] [place] [address] Performed By: #### 2 4323-8 ####[facility] LABIA [id number] [address] STATES OF [facility] Creatinine [Mass/Vol] 0.67 mg/dL Normal 0.58-0.96 [facility] Comment on above: Order Comment: Speci men Type: BLOOD SPECIMENOrdering Facility: [facility] Address: [address] [place] [address] Performed By: #### 2 4323-8 ####[facility] LABIA [id number] [address] Creatinine and Glomerular filtration rate.predicted panel (S/P/Bld) 97 mL/min/1.73m??? Normal >=60 [facility] Comment on above: Order Comment: Speci men Type: BLOOD SPECIMENOrdering Facility: [facility] Address: [address] [place] [address] Result Comment: Lexie mated Glomerular Filtration Rate (eGFR) is calculated using the 2020 CKD-EPI creatinine equation. This equation utilizes serum creatinine, sex, and age as parameters. The creatinine assay has traceable calibration to isotope dilution-mass spectrometry. Refer to KDIGO guidelines for clinical interpretation. In patients with unstable renal function, e.g. those with acute kidney injury, the eGFR may not accurately reflect actual GFR. Performed By: #### 2 4323-8 ####[facility] LABCLIA [id number] [address] [address] [place] Glucose [Mass/Vol] 99 mg/dL Normal 74-99 [facility] Comment on above: Order Comment: Speci men Type: BLOOD SPECIMENOrdering Facility: [facility] Address: [address] [place] [address] Result Comment: The [place] [employer] (ADA) provides guidance for cutoff values for fasting glucose and random glucose. The ADA defines fasting as no caloric intake for at least 8 hours. Fasting plasma glucose results between 100 to 125 mg/dL indicate increased risk for diabetes (prediabetes).Fasting plasma glucose results greater than or equal to 126 mg/dL meet the criteria for diagnosis of diabetes. In the absence of unequivocal hyperglycemia, results should be confirmed by repeat testing. In a patient with classic symptoms of hyperglycemia or hyperglycemic crisis, random plasma glucose results greater than or equal to 200 mg/dL meet the criteria for diagnosis of diabetes.Reference: Standards of Medical Care in Diabetes 2016, [place] [employer]. Diabetes Care. 2016.39(Suppl 1). Performed By: #### 2 4323-8 ####[facility] LABCLIA [id number] [place] [id number] [place] Potassium [Moles/Vol] 4.1 mmol/L Normal 3.7-5.1 [facility] Comment on above: Order Comment: Speci men Type: BLOOD SPECIMENOrdering Facility: [facility] Address: [address] [place] [address] Performed By: #### 2 4323-8 ####[facility] LABIA [id number] [address] [address] [place] Protein [Mass/Vol] 6.3 g/dL Normal 6.3-8.0 [facility] Comment on above: Order Comment: Speci men Type: BLOOD SPECIMENOrdering Facility: [facility] Address: [address] [place], [place] [address] Performed By: #### 2 4323-8 ####[facility] LABIA [id number] [place] [id number] [place] Sodium [Moles/Vol] 138 mmol/L Normal 136-144 [facility] Comment on above: Order Comment: Speci men Type: BLOOD SPECIMENOrdering Facility: [facility] Address: [address] [place] [address] Performed By: #### 2 4323-8 ####[facility] LABCLIA [id number] [place] [address] [place] Urea nitrogen [Mass/Vol] 24 mg/dL High 7-21 [facility] Comment on above: Order Comment: Speci men Type: BLOOD SPECIMENOrdering Facility: [facility] Address: [address] [place] [address] Performed By: #### 2 4323-8 ####[facility] LABCLIA [id number] [place] [id number] [place] ECG COMPLETEon 09-12-2024 ECG COMPLETE Normal [facility] ECHO LIMITEDon 09-12-2024 ECHO LIMITED Normal [facility] THERAPY NTon 09-12-2024 THERAPY NT Normal [facility] NT Normal [facility] NT Normal [facility] XR CHEST 1V FRONTALon 2024 XR CHEST 1V FRONTAL Normal [facility] XR CHEST 1V FRONTAL PORTon 0 09-12-2024 XR CHEST 1V FRONTAL PORT Normal [facility] XR CHEST 1V FRONTAL PORT Normal [facility] ALLIED HEALTHon 09-11-2024 ALLIED HEALTH Normal [facility] CASE MANAGEMon 09-11-2024 CASE MANAGEM Normal [facility] CBC panel Auto (Bld)on 09-11 Erythrocyte distribution width (RBC) [Ratio] 15.9 % High 11.5-15.0 [facility] Comment on above: Order Comment: Speci men Type: BLOOD SPECIMENOrdering Facility: [facility] Address: [address] [place] [address] Performed By: #### 5 8410-2 ####[facility] LABCLIA [id number] [place] [address] [place] Hematocrit (Bld) [Volume fraction] 33.4 % Low 36.0-46.0 [facility] Comment on above: Order Comment: Speci men Type: BLOOD SPECIMENOrdering Facility: [facility] Address: [address] [place] [address] Performed By: #### 5 8410-2 ####[facility] LABIA [id number] [place] [address] [place] Hemoglobin (Bld) [Mass/Vol] 10.3 g/dL Low 11.5-15.5 [facility] Comment on above: Order Comment: Speci men Type: BLOOD SPECIMENOrdering Facility: [facility] Address: [address] [place] [address] Performed By: #### 5 8410-2 ####[facility] LABIA [id number] [place] [address] [place] MCH (RBC) [Entitic mass] 27.8 pg Normal 26.0-34.0 [facility] Comment on above: Order Comment: Speci men Type: BLOOD SPECIMENOrdering Facility: [facility] Address: [address] [place] [address] Performed By: #### 5 8410-2 ####[facility] LABIA [id number] [place] [address] [place] MCHC (RBC) [Mass/Vol] 30.8 g/dL Normal 30.5-36.0 [facility] Comment on above: Order Comment: Speci men Type: BLOOD SPECIMENOrdering Facility: [facility] Address: [address] [place] [address] Performed By: #### 5 8410-2 ####[facility] LABIA [id number] [place] [address] [place] MCV (RBC) [Entitic vol] 90.3 fL Normal 80.0-100.0 [facility] Comment on above: Order Comment: Speci men Type: BLOOD SPECIMENOrdering Facility: [facility] Address: [address] [place] [address] Performed By: #### 5 8410-2 ####[facility] LABCLIA [id number] [place] [address] [place] Nucleated RBC (Bld) [#/Vol] 10*3/uL Normal <0.01 [facility] Comment on above: Order Comment: Speci men Type: BLOOD SPECIMENOrdering Facility: [facility] Address: [address] [place] [address] Performed By: #### 5 8410-2 ####[facility] LABIA [id number] [place] [address] [place] Platelet mean volume (Bld) [Entitic vol] 10.1 fL Normal 9.0-12.7 [facility] Comment on above: Order Comment: Speci men Type: BLOOD SPECIMENOrdering Facility: [facility] Address: [address] [place] [address] Performed By: #### 5 8410-2 ####[facility] LABIA [id number] [place] [address] [place] Platelets (Bld) [#/Vol] 170 10*3/uL Normal 150-400 [facility] Comment on above: Order Comment: Speci men Type: BLOOD SPECIMENOrdering Facility: [facility] Address: [address] [place] [address] Performed By: #### 5 8410-2 ####[facility] LABIA [id number] [place] [address] [place] RBC (Bld) [#/Vol] 3.70 10*6/uL Low 3.90-5.20 [facility] Comment on above: Order Comment: Speci men Type: BLOOD SPECIMENOrdering Facility: [facility] Address: [address] [place] [address] Performed By: #### 5 8410-2 ####[facility] LABCLIA [id number] [address] [address] [place] WBC (Bld) [#/Vol] 10.59 10*3/uL Normal 3.70-11.00 [facility] Comment on above: Order Comment: Speci men Type: BLOOD SPECIMENOrdering Facility: [facility] Address: [address] [place] [address] Performed By: #### 5 8410-2 ####[facility] LABIA [id number] [address] [address] [place] CNDSon 09-11-2024 CNDS Normal [facility] CNPNon 09-11-2024 CNPN Normal [facility] Comprehensive metabolic 2000 panelon 09-11-2024 Albumin [Mass/Vol] 3.4 g/dL Low 3.9-4.9 [facility] Comment on above: Order Comment: Speci men Type: BLOOD SPECIMENOrdering Facility: [facility] Address: [address] [place], [place] [address] Performed By: #### 2 4323-8 ####[facility] LABIA [id number] [address] [address] [place] ALP [Catalytic activity/Vol] 58 U/L Normal 34-123 [facility] Comment on above: Order Comment: Speci men Type: BLOOD SPECIMENOrdering Facility: [facility] Address: [address] [place], [place] [address] Performed By: #### 2 4323-8 ####[facility] LABIA [id number] [address] [address] [place] ALT [Catalytic activity/Vol] 12 U/L Normal 7-38 [facility] Comment on above: Order Comment: Speci men Type: BLOOD SPECIMENOrdering Facility: [facility] Address: [address] [place], [place] [address] Performed By: #### 2 4323-8 ####[facility] LABCLIA [id number] [facility] [address] [place] [address] [place] Anion gap [Moles/Vol] 11 mmol/L Normal 8-15 [facility] Comment on above: Order Comment: Speci men Type: BLOOD SPECIMENOrdering Facility: [facility] Address: [address] [place] [address] Performed By: #### 2 4323-8 ####[facility] LABCLIA [id number] [place] [id number] [place] AST [Catalytic activity/Vol] 38 U/L High 13-35 [facility] Comment on above: Order Comment: Speci men Type: BLOOD SPECIMENOrdering Facility: [facility] Address: [address] [place] [address] Performed By: #### 2 4323-8 ####[facility] LABCLIA [id number] [place] [id number] [place] Bilirubin [Mass/Vol] 0.3 mg/dL Normal 0.2-1.3 [facility] Comment on above: Order Comment: Speci men Type: BLOOD SPECIMENOrdering Facility: [facility] Address: [address] [place] [address] Performed By: #### 2 4323-8 ####[facility] LABCLIA [id number] [place] [id number] [place] Calcium [Mass/Vol] 8.6 mg/dL Normal 8.5-10.2 [facility] Comment on above: Order Comment: Speci men Type: BLOOD SPECIMENOrdering Facility: [facility] Address: [address] [place] [address] Performed By: #### 2 4323-8 ####[facility] LABCLIA [id number] [facility] [address] [address] [place] Chloride [Moles/Vol] 103 mmol/L Normal 98-107 [facility] Comment on above: Order Comment: Speci men Type: BLOOD SPECIMENOrdering Facility: [facility] Address: [address] [place] [address] Performed By: #### 2 4323-8 ####[facility] LABCLIA [id number] [place] [address] [place] CO2 [Moles/Vol] 25 mmol/L Normal 22-30 [facility] Comment on above: Order Comment: Speci men Type: BLOOD SPECIMENOrdering Facility: [facility] Address: [address] [place] [address] Performed By: #### 2 4323-8 ####[facility] LABIA [id number] [address] STATES OF [facility] Creatinine [Mass/Vol] 0.70 mg/dL Normal 0.58-0.96 [facility] Comment on above: Order Comment: Speci men Type: BLOOD SPECIMENOrdering Facility: [facility] Address: [address] [place] [address] Performed By: #### 2 4323-8 ####[facility] LABIA [id number] [address] OF [facility] Creatinine and Glomerular filtration rate.predicted panel (S/P/Bld) 96 mL/min/1.73m??? Normal >=60 [facility] Comment on above: Order Comment: Speci men Type: BLOOD SPECIMENOrdering Facility: [facility] Address: [address] [place] [address] Result Comment: Lexie mated Glomerular Filtration Rate (eGFR) is calculated using the 2020 CKD-EPI creatinine equation. This equation utilizes serum creatinine, sex, and age as parameters. The creatinine assay has traceable calibration to isotope dilution-mass spectrometry. Refer to KDIGO guidelines for clinical interpretation. In patients with unstable renal function, e.g. those with acute kidney injury, the eGFR may not accurately reflect actual GFR. Performed By: #### 2 4323-8 ####[facility] LABCLIA [id number] [address] [address] [place] Glucose [Mass/Vol] 102 mg/dL High 74-99 [facility] Comment on above: Order Comment: Speci men Type: BLOOD SPECIMENOrdering Facility: [facility] Address: [address] [place] [address] Result Comment: The [place] Diabetes [employer] (ADA) provides guidance for cutoff values for fasting glucose and random glucose. The ADA defines fasting as no caloric intake for at least 8 hours. Fasting plasma glucose results between 100 to 125 mg/dL indicate increased risk for diabetes (prediabetes).Fasting plasma glucose results greater than or equal to 126 mg/dL meet the criteria for diagnosis of diabetes. In the absence of unequivocal hyperglycemia, results should be confirmed by repeat testing. In a patient with classic symptoms of hyperglycemia or hyperglycemic crisis, random plasma glucose results greater than or equal to 200 mg/dL meet the criteria for diagnosis of diabetes.Reference: Standards of Medical Care in Diabetes 2016, [place] [employer]. Diabetes Care. 2016.39(Suppl 1). Performed By: #### 2 4323-8 ####[facility] LABIA [id number] [address] [address] [place] Potassium [Moles/Vol] 4.6 mmol/L Normal 3.7-5.1 [facility] Comment on above: Order Comment: Speci men Type: BLOOD SPECIMENOrdering Facility: [facility] Address: [address] [place] [id number] Performed By: #### 2 4323-8 ####[facility] LABCLIA [id number] [address] [address] [place] Protein [Mass/Vol] 6.5 g/dL Normal 6.3-8.0 [facility] Comment on above: Order Comment: Speci men Type: BLOOD SPECIMENOrdering Facility: [facility] Address: [address] [place] [id number] Performed By: #### 2 4323-8 ####[facility] LABCLIA [id number] [place] [id number] [place] Sodium [Moles/Vol] 139 mmol/L Normal 136-144 [facility] [facility] Comment on above: Order Comment: Speci men Type: BLOOD SPECIMENOrdering Facility: [facility] Address: [address] [place] [address] Performed By: #### 2 4323-8 ####[facility] LABCLIA [id number] [place] [address] [place] Urea nitrogen [Mass/Vol] 18 mg/dL Normal 7-21 [facility] Comment on above: Order Comment: Speci men Type: BLOOD SPECIMENOrdering Facility: [facility] Address: [address] [place] [address] Performed By: #### 2 4323-8 ####[facility] LABCLIA [id number] [place] [id number] [place] XR CHEST 1V FRONTAL PORTon 0 09-11-2024 XR CHEST 1V FRONTAL PORT Normal [facility] ALLIED HEALTHon 09-10-2024 ALLIED HEALTH HNO ID: [id number] Author: ALEC BACA, Binding Stitcher Service: [facility] [facility] Author Type: Binding Stitcher Type: Allied Health Filed: 09/10/2024 10:55 Note Text: Accepted anoint.,bless. Normal [facility] ARTERIAL BLOOD GASESon 09-10 Base excess Calc (Bld) [Moles/Vol] 3 mmol/L High 0-2 [facility] Comment on above: Order Comment: Speci men Type: ARTERIAL BLOOD SPECIMENOrdering Facility: [facility] Address: [address] [place] [address] Performed By: #### A LLBG ####[facility] LABCLIA [id number] [place] [address] [place] Body temperature 98.6 [degF] Normal [facility] Comment on above: Order Comment: Speci men Type: ARTERIAL BLOOD SPECIMENOrdering Facility: [facility] Address: [address] [place] [address] Performed By: #### A LLBG ####[facility] LABCLIA [id number] [place] [address] [place] Calcium.ionized (Bld) [Mass/Vol] 1.17 mmol/L Normal 1.08-1.30 [facility] Comment on above: Order Comment: Speci men Type: ARTERIAL BLOOD SPECIMENOrdering Facility: [facility] Address: [address] [place] [address] Performed By: #### A LLBG ####[facility] LABIA [id number] [place] [address] [place] Calcium.ionized adjusted to pH 7.4 (BldA) [Moles/Vol] 1.19 mmol/L Normal 1.08-1.30 [facility] Comment on above: Order Comment: Speci men Type: ARTERIAL BLOOD SPECIMENOrdering Facility: [facility] Address: [address] [place] [address] Performed By: #### A LLBG ####[facility] LABIA [id number] [place] [address] [place] Carboxyhemoglobin (BldA) [Mass fraction] 1.2 % Normal 0.0-2.0 [facility] Comment on above: Order Comment: Speci men Type: ARTERIAL BLOOD SPECIMENOrdering Facility: [facility] Address: [address] [place] [address] Result Comment: Carb oxyhemoglobin Reference Range for Smokers: 2.0-8.0% Performed By: #### A LLBG ####[facility] LABIA [id number] [place] [address] [place] CO2 (Bld) [Partial pressure] 41 mm Hg Normal 36-46 [facility] Comment on above: Order Comment: Speci men Type: ARTERIAL BLOOD SPECIMENOrdering Facility: [facility] Address: [address] [place] [address] Performed By: #### A LLBG ####[facility] LABCLIA [id number] [place] [id number] [place] Glucose [Mass/Vol] 124 mg/dL High 60-105 [facility] Comment on above: Order Comment: Speci men Type: ARTERIAL BLOOD SPECIMENOrdering Facility: [facility] Address: [address] [place] [address] Performed By: #### A LLBG ####[facility] LABCLIA [id number] [place] [address] [place] HCO3 (Bld) [Moles/Vol] 27 mmol/L High 22-26 [facility] Comment on above: Order Comment: Speci men Type: ARTERIAL BLOOD SPECIMENOrdering Facility: [facility] Address: [address] [place] [address] Performed By: #### A LLBG ####[facility] LABCLIA [id number] [place] [address] [place] Hematocrit (Bld) [Volume fraction] 32.6 % Low 36.0-46.0 [facility] Comment on above: Order Comment: Speci men Type: ARTERIAL BLOOD SPECIMENOrdering Facility: [facility] Address: [address] [place] [address] Performed By: #### A LLBG ####[facility] LABCLIA [id number] [place] [address] [place] Hemoglobin (Bld) [Mass/Vol] 10.5 g/dL Low 11.5-15.5 [facility] Comment on above: Order Comment: Speci men Type: ARTERIAL BLOOD SPECIMENOrdering Facility: [facility] Address: [address] [place] [address] Performed By: #### A LLBG ####[facility] LABCLIA [id number] [place] [id number] [place] Lactate [Moles/Vol] 1.5 mmol/L Normal 0.5-2.2 [facility] Comment on above: Order Comment: Speci men Type: ARTERIAL BLOOD SPECIMENOrdering Facility: [facility] Address: [address] [place] [address] Performed By: #### A LLBG ####[facility] LABCLIA [id number] [address] [place] [address] [place] LITERS 1 Liters/min Normal [facility] Comment on above: Order Comment: Speci men Type: ARTERIAL BLOOD SPECIMENOrdering Facility: [facility] Address: [address] [place], [place] [id number] Performed By: #### A LLBG ####[facility] LABCLIA [id number] [place] [address] [place] Methemoglobin (Bld) [Mass fraction] 0.3 % Normal 0.0-1.5 [facility] Comment on above: Order Comment: Speci men Type: ARTERIAL BLOOD SPECIMENOrdering Facility: [facility] Address: [address] [place] [address] Performed By: #### A LLBG ####[facility] LABCLIA [id number] [place] [address] [place] O2 THERAPY NC = Nasal Cannula Normal [facility] Comment on above: Order Comment: Speci men Type: ARTERIAL BLOOD SPECIMENOrdering Facility: [facility] Address: [address] [place], [place] [id number] Performed By: #### A LLBG ####[facility] LABCLIA [id number] [address] [address] [place] Oxygen (Bld) [Partial pressure] 108 mm Hg High 85-95 [facility] Comment on above: Order Comment: Speci men Type: ARTERIAL BLOOD SPECIMENOrdering Facility: [facility] Address: [address] [place], [place] [id number] Performed By: #### A LLBG ####[facility] LABCLIA [id number] [address] [address] [place] Oxyhemoglobin (BldA) [Mass fraction] 97 % Normal 95-98 [facility] Comment on above: Order Comment: Speci men Type: ARTERIAL BLOOD SPECIMENOrdering Facility: [facility] Address: [address] [place] [address] Performed By: #### A LLBG ####[facility] LABCLIA [id number] [place] [address] [place] pH (Bld) 7.44 [pH] Normal 7.35-7.45 [facility] Comment on above: Order Comment: Speci men Type: ARTERIAL BLOOD SPECIMENOrdering Facility: [facility] Address: [address] [place] [address] Performed By: #### A LLBG ####[facility] LABCLIA [id number] [place] [address] [place] Potassium [Moles/Vol] 4.0 mmol/L Normal 3.5-5.0 [facility] Comment on above: Order Comment: Speci men Type: ARTERIAL BLOOD SPECIMENOrdering Facility: [facility] Address: [address] [place] [address] Performed By: #### A LLBG ####[facility] LABCLIA [id number] [place] [address] [place] Sodium [Moles/Vol] 137 mmol/L Normal 136-144 [facility] Comment on above: Order Comment: Speci men Type: ARTERIAL BLOOD SPECIMENOrdering Facility: [facility] Address: [address] [place] [address] Performed By: #### A LLBG ####[facility] LABCLIA [id number] [place] [id number] [place] Base excess Calc (Bld) [Moles/Vol] 2 mmol/L Normal 0-2 [facility] Comment on above: Order Comment: Speci men Type: ARTERIAL BLOOD SPECIMENOrdering Facility: [facility] Address: [address] [place] [address] Performed By: #### A LLBG ####[facility] [id number] [place] [address] [place] Body temperature 98.6 [degF] Normal [facility] Comment on above: Order Comment: Speci men Type: ARTERIAL BLOOD SPECIMENOrdering Facility: [facility] Address: [address] [place] [address] Performed By: #### A LLBG ####[facility] [id number] [place] [address] [place] Calcium.ionized (Bld) [Mass/Vol] 1.16 mmol/L Normal 1.08-1.30 [facility] Comment on above: Order Comment: Speci men Type: ARTERIAL BLOOD SPECIMENOrdering Facility: [facility] Address: [address] [place] [address] Performed By: #### A LLBG ####[facility] [id number] [place] [address] [place] Calcium.ionized adjusted to pH 7.4 (BldA) [Moles/Vol] 1.15 mmol/L Normal 1.08-1.30 [facility] Comment on above: Order Comment: Speci men Type: ARTERIAL BLOOD SPECIMENOrdering Facility: [facility] Address: [address] [place] [address] Performed By: #### A LLBG ####[facility] [id number] [place] [address] [place] Carboxyhemoglobin (BldA) [Mass fraction] 1.0 % Normal 0.0-2.0 [facility] Comment on above: Order Comment: Speci men Type: ARTERIAL BLOOD SPECIMENOrdering Facility: [facility] Address: [address] [place] [address] Result Comment: Carb oxyhemoglobin Reference Range for Smokers: 2.0-8.0% Performed By: #### A LLBG ####[facility] LABCLIA [id number] [address] [place] [address] [place] CO2 (Bld) [Partial pressure] 46 mm Hg Normal 36-46 [facility] Comment on above: Order Comment: Speci men Type: ARTERIAL BLOOD SPECIMENOrdering Facility: [facility] Address: [address] [place] [address] Performed By: #### A LLBG ####[facility] LABCLIA [id number] [address], [facility] [place] Glucose [Mass/Vol] 134 mg/dL High 60-105 [facility] Comment on above: Order Comment: Speci men Type: ARTERIAL BLOOD SPECIMENOrdering Facility: [facility] Address: [address] [place] [address] Performed By: #### A LLBG ####[facility] LABCLIA [id number] [place] [id number] [place] HCO3 (Bld) [Moles/Vol] 27 mmol/L High 22-26 [facility] Comment on above: Order Comment: Speci men Type: ARTERIAL BLOOD SPECIMENOrdering Facility: [facility] Address: [address] [place] [address] Performed By: #### A LLBG ####[facility] LABCLIA [id number] [place] [id number] [place] Hematocrit (Bld) [Volume fraction] 32.8 % Low 36.0-46.0 [facility] Comment on above: Order Comment: Speci men Type: ARTERIAL BLOOD SPECIMENOrdering Facility: [facility] Address: [address] [place] [address] Performed By: #### A LLBG ####[facility] LABCLIA [id number] [facility] [address], [facility]95 [place] Hemoglobin (Bld) [Mass/Vol] 10.6 g/dL Low 11.5-15.5 [facility] Comment on above: Order Comment: Speci men Type: ARTERIAL BLOOD SPECIMENOrdering Facility: [facility] Address: [address] [place] [id number] Performed By: #### A LLBG ####[facility] LABCLIA [id number] [address] [place] [address] [place] Lactate [Moles/Vol] 2.0 mmol/L Normal 0.5-2.2 [facility] Comment on above: Order Comment: Speci men Type: ARTERIAL BLOOD SPECIMENOrdering Facility: [facility] Address: [address] [place] [address] Performed By: #### A LLBG ####[facility] LABCLIA [id number] [place] [id number] [place] LITERS 1 Liters/min Normal [facility] Comment on above: Order Comment: Speci men Type: ARTERIAL BLOOD SPECIMENOrdering Facility: [facility] Address: [address] [place] [address] Performed By: #### A LLBG ####[facility] LABCLIA [id number] [place] [id number] [place] Methemoglobin (Bld) [Mass fraction] 0.7 % Normal 0.0-1.5 [facility] Comment on above: Order Comment: Speci men Type: ARTERIAL BLOOD SPECIMENOrdering Facility: [facility] Address: [address] [place] [address] Performed By: #### A LLBG ####[facility] LABCLIA [id number] [address] [address] [place] O2 THERAPY NC = Nasal Cannula Normal [facility] Comment on above: Order Comment: Speci men Type: ARTERIAL BLOOD SPECIMENOrdering Facility: [facility] Address: [address] [place], [place] [address] Performed By: #### A LLBG ####[facility] LABCLIA [id number] [place] [id number] [place] Oxygen (Bld) [Partial pressure] 120 mm Hg High 85-95 [facility] Comment on above: Order Comment: Speci men Type: ARTERIAL BLOOD SPECIMENOrdering Facility: [facility] Address: [address] [place] [address] Performed By: #### A LLBG ####[facility] LABCLIA [id number] [place] [address] [place] Oxyhemoglobin (BldA) [Mass fraction] 97 % Normal 95-98 [facility] Comment on above: Order Comment: Speci men Type: ARTERIAL BLOOD SPECIMENOrdering Facility: [facility] Address: [address] [place] [address] Performed By: #### A LLBG ####[facility] LABCLIA [id number] [place] [address] [place] pH (Bld) 7.39 [pH] Normal 7.35-7.45 [facility] Comment on above: Order Comment: Speci men Type: ARTERIAL BLOOD SPECIMENOrdering Facility: [facility] Address: [address] [place] [address] Performed By: #### A LLBG ####[facility] LABCLIA [id number] [place] [address] [place] Potassium [Moles/Vol] 4.0 mmol/L Normal 3.5-5.0 [facility] Comment on above: Order Comment: Speci men Type: ARTERIAL BLOOD SPECIMENOrdering Facility: [facility] Address: [address] [place] [address] Performed By: #### A LLBG ####[facility] LABCLIA [id number] [place] [id number] [place] Sodium [Moles/Vol] 137 mmol/L Normal 136-144 [facility] Comment on above: Order Comment: Speci men Type: ARTERIAL BLOOD SPECIMENOrdering Facility: [facility] Address: [address] [place] [address] Performed By: #### A LLBG ####[facility] LABCLIA [id number] [place] [address] [place] Base excess Calc (Bld) [Moles/Vol] 2 mmol/L Normal 0-2 [facility] Comment on above: Order Comment: Speci men Type: ARTERIAL BLOOD SPECIMENOrdering Facility: [facility] Address: [address] [place] [address] Performed By: #### A LLBG ####[facility] LABCLIA [id number] [place] [address] [place] Body temperature 98.6 [degF] Normal [facility] Comment on above: Order Comment: Speci men Type: ARTERIAL BLOOD SPECIMENOrdering Facility: [facility] Address: [address] [place] [address] Performed By: #### A LLBG ####[facility] LABIA [id number] [place] [address] [place] Calcium.ionized (Bld) [Mass/Vol] 1.13 mmol/L Normal 1.08-1.30 [facility] Comment on above: Order Comment: Speci men Type: ARTERIAL BLOOD SPECIMENOrdering Facility: [facility] Address: [address] [place] [address] Performed By: #### A LLBG ####[facility] LABIA [id number] [place] [address] [place] Calcium.ionized adjusted to pH 7.4 (BldA) [Moles/Vol] 1.13 mmol/L Normal 1.08-1.30 [facility] Comment on above: Order Comment: Speci men Type: ARTERIAL BLOOD SPECIMENOrdering Facility: [facility] Address: [address] [place] [address] Performed By: #### A LLBG ####[facility] LABIA [id number] [place] [id number] [place] Carboxyhemoglobin (BldA) [Mass fraction] 1.3 % Normal 0.0-2.0 [facility] Comment on above: Order Comment: Speci men Type: ARTERIAL BLOOD SPECIMENOrdering Facility: [facility] Address: [address] [place] [address] Result Comment: Carb oxyhemoglobin Reference Range for Smokers: 2.0-8.0% Performed By: #### A LLBG ####[facility] LABCLIA [id number] [place] [address] [place] CO2 (Bld) [Partial pressure] 44 mm Hg Normal 36-46 [facility] Comment on above: Order Comment: Speci men Type: ARTERIAL BLOOD SPECIMENOrdering Facility: [facility] Address: [address] [place] [address] Performed By: #### A LLBG ####[facility] LABCLIA [id number] [place] [address] [place] Glucose [Mass/Vol] 165 mg/dL High 60-105 [facility] Comment on above: Order Comment: Speci men Type: ARTERIAL BLOOD SPECIMENOrdering Facility: [facility] Address: [address] [place] [address] Performed By: #### A LLBG ####[facility] LABCLIA [id number] [place] [address] [place] HCO3 (Bld) [Moles/Vol] 27 mmol/L High 22-26 [facility] Comment on above: Order Comment: Speci men Type: ARTERIAL BLOOD SPECIMENOrdering Facility: [facility] Address: [address] [place] [address] Performed By: #### A LLBG ####[facility] LABCLIA [id number] [place] [address] [place] Hematocrit (Bld) [Volume fraction] 35.1 % Low 36.0-46.0 [facility] Comment on above: Order Comment: Speci men Type: ARTERIAL BLOOD SPECIMENOrdering Facility: [facility] Address: [address] [place] [address] Performed By: #### A LLBG ####[facility] LABCLIA [id number] [place] [address] [place] Hemoglobin (Bld) [Mass/Vol] 11.4 g/dL Low 11.5-15.5 [facility] Comment on above: Order Comment: Speci men Type: ARTERIAL BLOOD SPECIMENOrdering Facility: [facility] Address: [address] [place] [address] Performed By: #### A LLBG ####[facility] LABCLIA [id number] [place] [address] [place] Lactate [Moles/Vol] 1.7 mmol/L Normal 0.5-2.2 [facility] Comment on above: Order Comment: Speci men Type: ARTERIAL BLOOD SPECIMENOrdering Facility: [facility] Address: [address] [place] [address] Performed By: #### A LLBG ####[facility] LABCLIA [id number] [place] [address] [place] LITERS 1 Liters/min Normal [facility] Comment on above: Order Comment: Speci men Type: ARTERIAL BLOOD SPECIMENOrdering Facility: [facility] Address: [address] [place] [address] Performed By: #### A LLBG ####[facility] LABCLIA [id number] [place] [address] [place] Methemoglobin (Bld) [Mass fraction] 0.6 % Normal 0.0-1.5 [facility] Comment on above: Order Comment: Speci men Type: ARTERIAL BLOOD SPECIMENOrdering Facility: [facility] Address: [address] [place] [address] Performed By: #### A LLBG ####[facility] LABCLIA [id number] [place] [address] [place] O2 THERAPY NC = Nasal Cannula Normal [facility] Comment on above: Order Comment: Speci men Type: ARTERIAL BLOOD SPECIMENOrdering Facility: [facility] Address: [address] [place] [address] Performed By: #### A LLBG ####[facility] LABCLIA [id number] [place] [address] [place] Oxygen (Bld) [Partial pressure] 90 mm Hg Normal 85-95 [facility] Comment on above: Order Comment: Speci men Type: ARTERIAL BLOOD SPECIMENOrdering Facility: [facility] Address: [address] [place] [address] Performed By: #### A LLBG ####[facility] LABCLIA [id number] [place] [address] [place] Oxyhemoglobin (BldA) [Mass fraction] 95 % Normal 95-98 [facility] Comment on above: Order Comment: Speci men Type: ARTERIAL BLOOD SPECIMENOrdering Facility: [facility] Address: [address] [place] [address] Performed By: #### A LLBG ####[facility] LABCLIA [id number] [place] [address] [place] pH (Bld) 7.40 [pH] Normal 7.35-7.45 [facility] Comment on above: Order Comment: Speci men Type: ARTERIAL BLOOD SPECIMENOrdering Facility: [facility] Address: [address] [place] [address] Performed By: #### A LLBG ####[facility] LABCLIA [id number] [place] [address] [place] Potassium [Moles/Vol] 4.3 mmol/L Normal 3.5-5.0 [facility] Comment on above: Order Comment: Speci men Type: ARTERIAL BLOOD SPECIMENOrdering Facility: [facility] Address: [address] [place] [address] Performed By: #### A LLBG ####[facility] LABCLIA [id number] [place] [address] [place] Sodium [Moles/Vol] 137 mmol/L Normal 136-144 [facility] Comment on above: Order Comment: Speci men Type: ARTERIAL BLOOD SPECIMENOrdering Facility: [facility] Address: [address] [place] [address] Performed By: #### A LLBG ####[facility] LABCLIA [id number] [place] [address] [place] Base excess Calc (Bld) [Moles/Vol] 4 mmol/L High 0-2 [facility] Comment on above: Order Comment: Speci men Type: ARTERIAL BLOOD SPECIMENOrdering Facility: [facility] Address: [address] [place] [address] Performed By: #### A LLBG ####[facility] LABCLIA [id number] [place] [address] [place] Body temperature 98.42 [degF] Normal [facility] Comment on above: Order Comment: Speci men Type: ARTERIAL BLOOD SPECIMENOrdering Facility: [facility] Address: [address] [place] [address] Performed By: #### A LLBG ####[facility] LABCLIA [id number] [place] [address] [place] Calcium.ionized (Bld) [Mass/Vol] 1.13 mmol/L Normal 1.08-1.30 [facility] Comment on above: Order Comment: Speci men Type: ARTERIAL BLOOD SPECIMENOrdering Facility: [facility] Address: [address] [place] [address] Performed By: #### A LLBG ####[facility] LABCLIA [id number] [place] [address] [place] Calcium.ionized adjusted to pH 7.4 (BldA) [Moles/Vol] 1.17 mmol/L Normal 1.08-1.30 [facility] Comment on above: Order Comment: Speci men Type: ARTERIAL BLOOD SPECIMENOrdering Facility: [facility] Address: [address] [place] [address] Performed By: #### A LLBG ####[facility] LABCLIA [id number] [place] [address] [place] Carboxyhemoglobin (BldA) [Mass fraction] 1.5 % Normal 0.0-2.0 [facility] [facility] Comment on above: Order Comment: Speci men Type: ARTERIAL BLOOD SPECIMENOrdering Facility: [facility] Address: [address] [place] [address] Result Comment: Carb oxyhemoglobin Reference Range for Smokers: 2.0-8.0% Performed By: #### A LLBG ####[facility] LABCLIA [id number] [place] [address] [place] CO2 (Bld) [Partial pressure] 40 mm Hg Normal 36-46 [facility] Comment on above: Order Comment: Speci men Type: ARTERIAL BLOOD SPECIMENOrdering Facility: [facility] Address: [address] [place] [address] Performed By: #### A LLBG ####[facility] LABCLIA [id number] [place] [address] [place] CO2 adjusted to patient's actual temperature (Bld) [Partial pressure] 40 mmHg Normal 36-46 [facility] Comment on above: Order Comment: Speci men Type: ARTERIAL BLOOD SPECIMENOrdering Facility: [facility] Address: [address] [place] [address] Performed By: #### A LLBG ####[facility] LABCLIA [id number] [place] [address] [place] Glucose [Mass/Vol] 148 mg/dL High 60-105 [facility] Comment on above: Order Comment: Speci men Type: ARTERIAL BLOOD SPECIMENOrdering Facility: [facility] Address: [address] [place] [address] Performed By: #### A LLBG ####[facility] LABCLIA [id number] [place] [address] [place] HCO3 (Bld) [Moles/Vol] 28 mmol/L High 22-26 [facility] Comment on above: Order Comment: Speci men Type: ARTERIAL BLOOD SPECIMENOrdering Facility: [facility] Address: [address] [place] [address] Performed By: #### A LLBG ####[facility] LABCLIA [id number] [place] [address] [place] Hematocrit (Bld) [Volume fraction] 33.9 % Low 36.0-46.0 [facility] Comment on above: Order Comment: Speci men Type: ARTERIAL BLOOD SPECIMENOrdering Facility: [facility] Address: [address] [place] [address] Performed By: #### A LLBG ####[facility] LABCLIA [id number] [place] [address] [place] Hemoglobin (Bld) [Mass/Vol] 11.0 g/dL Low 11.5-15.5 [facility] Comment on above: Order Comment: Speci men Type: ARTERIAL BLOOD SPECIMENOrdering Facility: [facility] Address: [address] [place] [address] Performed By: #### A LLBG ####[facility] LABCLIA [id number] [place] [address] [place] Lactate [Moles/Vol] 1.0 mmol/L Normal 0.5-2.2 [facility] Comment on above: Order Comment: Speci men Type: ARTERIAL BLOOD SPECIMENOrdering Facility: [facility] Address: [address] [place] [address] Performed By: #### A LLBG ####[facility] LABCLIA [id number] [address] [address] [place] LITERS 1 Liters/min Normal [facility] Comment on above: Order Comment: Speci men Type: ARTERIAL BLOOD SPECIMENOrdering Facility: [facility] Address: [address] [place], [place] [address] Performed By: #### A LLBG ####[facility] LABCLIA [id number] [place] [id number] [place] Methemoglobin (Bld) [Mass fraction] 0.5 % Normal 0.0-1.5 [facility] Comment on above: Order Comment: Speci men Type: ARTERIAL BLOOD SPECIMENOrdering Facility: [facility] Address: [address] [place], [place] [address] Performed By: #### A LLBG ####[facility] LABCLIA [id number] [place] [address] [place] O2 THERAPY NC = Nasal Cannula Normal [facility] Comment on above: Order Comment: Speci men Type: ARTERIAL BLOOD SPECIMENOrdering Facility: [facility] Address: [address] [place], [place] [address] Performed By: #### A LLBG ####[facility] LABCLIA [id number] [address] [address] [place] Oxygen (Bld) [Partial pressure] 82 mm Hg Low 85-95 [facility] Comment on above: Order Comment: Speci men Type: ARTERIAL BLOOD SPECIMENOrdering Facility: [facility] Address: [address] [place] [address] Performed By: #### A LLBG ####[facility] LABCLIA [id number] [place] [id number] [place] Oxygen adjusted to patient's actual temperature (Bld) [Partial pressure] 81 mmHg Low 85-95 [facility] Comment on above: Order Comment: Speci men Type: ARTERIAL BLOOD SPECIMENOrdering Facility: [facility] Address: [address] [place] [address] Performed By: #### A LLBG ####[facility] LABCLIA [id number] [place] [address] [place] Oxyhemoglobin (BldA) [Mass fraction] 95 % Normal 95-98 [facility] Comment on above: Order Comment: Speci men Type: ARTERIAL BLOOD SPECIMENOrdering Facility: [facility] Address: [address] [place] [address] Performed By: #### A LLBG ####[facility] LABIA [id number] [place] [address] [place] pH (Bld) 7.46 [pH] High 7.35-7.45 [facility] Comment on above: Order Comment: Speci men Type: ARTERIAL BLOOD SPECIMENOrdering Facility: [facility] Address: [address] [place] [address] Performed By: #### A LLBG ####[facility] LABIA [id number] [place] [address] [place] pH adjusted to patient's actual temperature (Bld) 7.46 High 7.35-7.45 [facility] Comment on above: Order Comment: Speci men Type: ARTERIAL BLOOD SPECIMENOrdering Facility: [facility] Address: [address] [place] [address] Performed By: #### A LLBG ####[facility] LABIA [id number] [place] [address] [place] Potassium [Moles/Vol] 4.0 mmol/L Normal 3.5-5.0 [facility] Comment on above: Order Comment: Speci men Type: ARTERIAL BLOOD SPECIMENOrdering Facility: [facility] Address: [address] [place] [address] Performed By: #### A LLBG ####[facility] LABIA [id number] [place] [address] [place] Sodium [Moles/Vol] 137 mmol/L Normal 136-144 [facility] Comment on above: Order Comment: Speci men Type: ARTERIAL BLOOD SPECIMENOrdering Facility: [facility] Address: [address] [place] [address] Performed By: #### A LLBG ####[facility] LABCLIA [id number] [place] [address] [place] CASE MGT INIT ASSESon 2024 CASE MGT INIT ASSES Normal [facility] CBC panel Auto (Bld)on 09-10 Erythrocyte distribution width (RBC) [Ratio] 15.9 % High 11.5-15.0 [facility] Comment on above: Order Comment: Speci men Type: BLOOD SPECIMENOrdering Facility: [facility] Address: [address] [place] [address] Performed By: #### 5 8410-2 ####[facility] LABCLIA [id number] [place] [address] [place] Hematocrit (Bld) [Volume fraction] 33.7 % Low 36.0-46.0 [facility] Comment on above: Order Comment: Speci men Type: BLOOD SPECIMENOrdering Facility: [facility] Address: [address] [place] [address] Performed By: #### 5 8410-2 ####[facility] LABCLIA [id number] [place] [address] [place] Hemoglobin (Bld) [Mass/Vol] 10.8 g/dL Low 11.5-15.5 [facility] Comment on above: Order Comment: Speci men Type: BLOOD SPECIMENOrdering Facility: [facility] Address: [address] [place] [address] Performed By: #### 5 8410-2 ####[facility] LABCLIA [id number] [place] [address] [place] MCH (RBC) [Entitic mass] 27.9 pg Normal 26.0-34.0 [facility] Comment on above: Order Comment: Speci men Type: BLOOD SPECIMENOrdering Facility: [facility] Address: [address] [place] [address] Performed By: #### 5 8410-2 ####[facility] LABCLIA [id number] [place] [address] [place] MCHC (RBC) [Mass/Vol] 32.0 g/dL Normal 30.5-36.0 [facility] Comment on above: Order Comment: Speci men Type: BLOOD SPECIMENOrdering Facility: [facility] Address: [address] [place] [address] Performed By: #### 5 8410-2 ####[facility] LABCLIA [id number] [place] [address] [place] MCV (RBC) [Entitic vol] 87.1 fL Normal 80.0-100.0 [facility] Comment on above: Order Comment: Speci men Type: BLOOD SPECIMENOrdering Facility: [facility] Address: [address] [place] [address] Performed By: #### 5 8410-2 ####[facility] LABIA [id number] [place] [address] [place] Nucleated RBC (Bld) [#/Vol] 10*3/uL Normal <0.01 [facility] Comment on above: Order Comment: Speci men Type: BLOOD SPECIMENOrdering Facility: [facility] Address: [address] [place] [address] Performed By: #### 5 8410-2 ####[facility] LABCLIA [id number] [place] [address] [place] Platelet mean volume (Bld) [Entitic vol] 10.1 fL Normal 9.0-12.7 [facility] Comment on above: Order Comment: Speci men Type: BLOOD SPECIMENOrdering Facility: [facility] Address: [address] [place] [address] Performed By: #### 5 8410-2 ####[facility] LABIA [id number] [place] [address] [place] Platelets (Bld) [#/Vol] 186 10*3/uL Normal 150-400 [facility] Comment on above: Order Comment: Speci men Type: BLOOD SPECIMENOrdering Facility: [facility] Address: [address] [place] [address] Performed By: #### 5 8410-2 ####[facility] LABIA [id number] [place] [address] [place] RBC (Bld) [#/Vol] 3.87 10*6/uL Low 3.90-5.20 [facility] Comment on above: Order Comment: Speci men Type: BLOOD SPECIMENOrdering Facility: [facility] Address: [address] [place] [address] Performed By: #### 5 8410-2 ####[facility] LABIA [id number] [place] [address] [place] WBC (Bld) [#/Vol] 11.83 10*3/uL High 3.70-11.00 [facility] Comment on above: Order Comment: Speci men Type: BLOOD SPECIMENOrdering Facility: [facility] Address: [address] [place] [address] Performed By: #### 5 8410-2 ####[facility] LABIA [id number] [place] [address] [place] Comprehensive metabolic 2000 panelon 09-10-2024 Albumin [Mass/Vol] 3.3 g/dL Low 3.9-4.9 [facility] Comment on above: Order Comment: Speci men Type: BLOOD SPECIMENOrdering Facility: [facility] Address: [address] [place] [address] Performed By: #### H STNT ####[facility] LABCLIA [id number] [place] [address] [place]#### 48007-0 ####[facility] LABCLIA [id number] [place] [id number] [place] ALP [Catalytic activity/Vol] 48 U/L Normal 34-123 [facility] Comment on above: Order Comment: Speci men Type: BLOOD SPECIMENOrdering Facility: [facility] Address: [address] [place] [address] Performed By: #### H STNT ####[facility] LABCLIA [id number] [place] [address] [place]#### 78004-0 ####[facility] LABCLIA [id number] [place] [address] [place] ALT [Catalytic activity/Vol] 10 U/L Normal 7-38 [facility] Comment on above: Order Comment: Speci men Type: BLOOD SPECIMENOrdering Facility: [facility] Address: [address] [place] [address] Performed By: #### H STNT ####[facility] LABCLIA [id number] [place] [address] [place]#### 51188-7 ####[facility] LABCLIA [id number] [place] [address] [place] Anion gap [Moles/Vol] 10 mmol/L Normal 8-15 [facility] Comment on above: Order Comment: Speci men Type: BLOOD SPECIMENOrdering Facility: [facility] Address: [address] [place] [address] Performed By: #### H STNT ####[facility] LABCLIA [id number] [place] [address] [place]#### 49901-0 ####[facility] LABCLIA [id number] [address] [address] [place] AST [Catalytic activity/Vol] 48 U/L High 13-35 [facility] Comment on above: Order Comment: Speci men Type: BLOOD SPECIMENOrdering Facility: [facility] Address: [facility] [place] [address] Performed By: #### H STNT ####[facility] LABCLIA [id number] [place] [id number] [place]#### 37751-2 ####[facility] LABCLIA [id number] [place] [address] [place] Bilirubin [Mass/Vol] 0.3 mg/dL Normal 0.2-1.3 [facility] Comment on above: Order Comment: Speci men Type: BLOOD SPECIMENOrdering Facility: [facility] Address: [address] [place] [address] Performed By: #### H STNT ####[facility] LABCLIA [id number] [place] [address] [place]#### 91660-0 ####[facility] LABCLIA [id number] [place] [id number] [place] Calcium [Mass/Vol] 8.5 mg/dL Normal 8.5-10.2 [facility] Comment on above: Order Comment: Speci men Type: BLOOD SPECIMENOrdering Facility: [facility] Address: [address] [place] [id number] Performed By: #### H STNT ####[facility] LABCLIA [id number] [place] [id number] [place]#### 45504-5 ####[facility] LABCLIA [id number] [place] [id number] [place] Chloride [Moles/Vol] 104 mmol/L Normal 98-107 [facility] Comment on above: Order Comment: Speci men Type: BLOOD SPECIMENOrdering Facility: [facility] Address: [address] [place] [address] Performed By: #### H STNT ####[facility] LABCLIA [id number] [place] [address] [place]#### 43834-2 ####[facility] LABCLIA [id number] [place] [address] [place] CO2 [Moles/Vol] 26 mmol/L Normal 22-30 [facility] Comment on above: Order Comment: Speci men Type: BLOOD SPECIMENOrdering Facility: [facility] Address: [address] [place] [address] Performed By: #### H STNT ####[facility] LABCLIA [id number] [place] [address] [place]#### 68989-8 ####[facility] LABCLIA [id number] [place] [address] [place] Creatinine [Mass/Vol] 0.71 mg/dL Normal 0.58-0.96 [facility] Comment on above: Order Comment: Speci men Type: BLOOD SPECIMENOrdering Facility: [facility] Address: [address] [place] [address] Performed By: #### H STNT ####[facility] LABCLIA [id number] [place] [address] [place]#### 40052-8 ####[facility] LABCLIA [id number] [place] [address] [place] Creatinine and Glomerular filtration rate.predicted panel (S/P/Bld) 94 mL/min/1.73m??? Normal >=60 [facility] Comment on above: Order Comment: Speci men Type: BLOOD SPECIMENOrdering Facility: [facility] Address: [address] [place] [address] Result Comment: Lexie mated Glomerular Filtration Rate (eGFR) is calculated using the 2020 CKD-EPI creatinine equation. This equation utilizes serum creatinine, sex, and age as parameters. The creatinine assay has traceable calibration to isotope dilution-mass spectrometry. Refer to KDIGO guidelines for clinical interpretation. In patients with unstable renal function, e.g. those with acute kidney injury, the eGFR may not accurately reflect actual GFR. Performed By: #### H STNT ####[facility] LABCLIA [id number] [address] [place]#### 30335-2 ####[facility] LABCLIA [id number] [facility] [address] STATES OF [facility] Glucose [Mass/Vol] 149 mg/dL High 74-99 [facility] Comment on above: Order Comment: Milo peters Type: BLOOD SPECIMENOrdering Facility: [facility] Address: [address] [place] [address] Result Comment: The [place] Diabetes Association (ADA) provides guidance for cutoff values for fasting glucose and random glucose. The ADA defines fasting as no caloric intake for at least 8 hours. Fasting plasma glucose results between 100 to 125 mg/dL indicate increased risk for diabetes (prediabetes).Fasting plasma glucose results greater than or equal to 126 mg/dL meet the criteria for diagnosis of diabetes. In the absence of unequivocal hyperglycemia, results should be confirmed by repeat testing. In a patient with classic symptoms of hyperglycemia or hyperglycemic crisis, random plasma glucose results greater than or equal to 200 mg/dL meet the criteria for diagnosis of diabetes.Reference: Standards of Medical Care in Diabetes 2016, [place] Diabetes Association. Diabetes Care. 2016.39(Suppl 1). Performed By: #### H STNT ####[facility] LABCLIA [id number] [address] [address] [place]#### 43494-0 ####[facility] LABCLIA [id number] [place] [id number] [place] Potassium [Moles/Vol] 4.1 mmol/L Normal 3.7-5.1 [facility] Comment on above: Order Comment: Speci men Type: BLOOD SPECIMENOrdering Facility: [facility] Address: [address] [place] [address] Performed By: #### H STNT ####[facility] LABCLIA [id number] [place] [address] [place]#### 27366-6 ####[facility] LABCLIA [id number] [place] [address] [place] Protein [Mass/Vol] 6.1 g/dL Low 6.3-8.0 [facility] Comment on above: Order Comment: Speci men Type: BLOOD SPECIMENOrdering Facility: [facility] Address: [address] [place] [address] Performed By: #### H STNT ####[facility] LABCLIA [id number] [place] [address] [place]#### 97264-1 ####[facility] LABCLIA [id number] [place] [address] [place] Sodium [Moles/Vol] 140 mmol/L Normal 136-144 [facility] Comment on above: Order Comment: Speci men Type: BLOOD SPECIMENOrdering Facility: [facility] Address: [address] [place], [place] [address] Performed By: #### H STNT ####[facility] LABCLIA [id number] [place] [address] [place]#### 52386-9 ####[facility] LABCLIA [id number] [place] [id number] [place] Urea nitrogen [Mass/Vol] 20 mg/dL Normal 7-21 [facility] Comment on above: Order Comment: Speci men Type: BLOOD SPECIMENOrdering Facility: [facility] Address: [address] [place] [address] Performed By: #### H STNT ####[facility] LABCLIA [id number] [place] [address] [place]#### 40607-9 ####[facility] LABCLIA [id number] [place] [address] [place] HIGH SENSITIVITY TROPONIN To n 09-10-2024 Troponin T.cardiac High sensitivity method [Mass/Vol] 532 ng/L High <12 [facility] Comment on above: Order Comment: Speci men Type: BLOOD SPECIMENOrdering Facility: [facility] Address: [address] [place] [address] Performed By: #### H STNT ####[facility] LABIA [id number] [place] [address] [place]#### 14280-5 ####[facility] LABIA [id number] [place] [address] [place] XR CHEST 1V FRONTAL PORTon 0 09-10-2024 XR CHEST 1V FRONTAL PORT Normal [facility] XR CHEST 1V FRONTAL PORT Normal [facility] ANES POSTPROC EVALon 025 ANES POSTPROC EVAL Normal [facility] ANES PRE-OPon 09-09-2024 ANES PRE-OP Normal [facility] ARTERIAL BLOOD GASESon 09-09 Base excess Calc (Bld) [Moles/Vol] 3 mmol/L High 0-2 [facility] Comment on above: Order Comment: Speci men Type: ARTERIAL BLOOD SPECIMENOrdering Facility: [facility] Address: [address] [place] [address] Performed By: #### A LLBG ####[facility] LABIA [id number] [place] [address] [place] Body temperature 98.42 [degF] Normal [facility] Comment on above: Order Comment: Speci men Type: ARTERIAL BLOOD SPECIMENOrdering Facility: [facility] Address: [address] [place] [address] Performed By: #### A LLBG ####[facility] LABCLIA [id number] [place] [address] [place] Calcium.ionized (Bld) [Mass/Vol] 1.20 mmol/L Normal 1.08-1.30 [facility] Comment on above: Order Comment: Speci men Type: ARTERIAL BLOOD SPECIMENOrdering Facility: [facility] Address: [address] [place] [address] Performed By: #### A LLBG ####[facility] LABCLIA [id number] [place] [address] [place] Calcium.ionized adjusted to pH 7.4 (BldA) [Moles/Vol] 1.22 mmol/L Normal 1.08-1.30 [facility] Comment on above: Order Comment: Speci men Type: ARTERIAL BLOOD SPECIMENOrdering Facility: [facility] Address: [address] [place] [address] Performed By: #### A LLBG ####[facility] LABCLIA [id number] [place] [address] [place] Carboxyhemoglobin (BldA) [Mass fraction] 1.1 % Normal 0.0-2.0 [facility] Comment on above: Order Comment: Speci men Type: ARTERIAL BLOOD SPECIMENOrdering Facility: [facility] Address: [address] [place] [address] Result Comment: Carb oxyhemoglobin Reference Range for Smokers: 2.0-8.0% Performed By: #### A LLBG ####[facility] LABCLIA [id number] [place] [address] [place] CO2 (Bld) [Partial pressure] 41 mm Hg Normal 36-46 [facility] Comment on above: Order Comment: Speci men Type: ARTERIAL BLOOD SPECIMENOrdering Facility: [facility] Address: [address] [place] [address] Performed By: #### A LLBG ####[facility] LABCLIA [id number] [place] [address] [place] CO2 adjusted to patient's actual temperature (Bld) [Partial pressure] 40 mmHg Normal 36-46 [facility] Comment on above: Order Comment: Speci men Type: ARTERIAL BLOOD SPECIMENOrdering Facility: [facility] Address: [address] [place] [address] Performed By: #### A LLBG ####[facility] LABCLIA [id number] [place] [address] [place] Glucose [Mass/Vol] 161 mg/dL High 60-105 [facility] Comment on above: Order Comment: Speci men Type: ARTERIAL BLOOD SPECIMENOrdering Facility: [facility] Address: [address] [place] [address] Performed By: #### A LLBG ####[facility] [facility] [id number] [place] [address] [place] HCO3 (Bld) [Moles/Vol] 27 mmol/L High 22-26 [facility] Comment on above: Order Comment: Speci men Type: ARTERIAL BLOOD SPECIMENOrdering Facility: [facility] Address: [address] [place] [address] Performed By: #### A LLBG ####[facility] LABCLIA [id number] [place] [address] [place] Hematocrit (Bld) [Volume fraction] 34.8 % Low 36.0-46.0 [facility] Comment on above: Order Comment: Speci men Type: ARTERIAL BLOOD SPECIMENOrdering Facility: [facility] Address: [address] [place] [address] Performed By: #### A LLBG ####[facility] LABCLIA [id number] [place] [address] [place] Hemoglobin (Bld) [Mass/Vol] 11.3 g/dL Low 11.5-15.5 [facility] Comment on above: Order Comment: Speci men Type: ARTERIAL BLOOD SPECIMENOrdering Facility: [facility] Address: [address] [place] [address] Performed By: #### A LLBG ####[facility] LABIA [id number] [place] [address] [place] Lactate [Moles/Vol] 1.3 mmol/L Normal 0.5-2.2 [facility] Comment on above: Order Comment: Speci men Type: ARTERIAL BLOOD SPECIMENOrdering Facility: [facility] Address: [address] [place] [address] Performed By: #### A LLBG ####[facility] LABIA [id number] [place] [address] [place] LITERS 2 Liters/min Normal [facility] Comment on above: Order Comment: Speci men Type: ARTERIAL BLOOD SPECIMENOrdering Facility: [facility] Address: [address] [place] [address] Performed By: #### A LLBG ####[facility] LABIA [id number] [place] [address] [place] Methemoglobin (Bld) [Mass fraction] 0.5 % Normal 0.0-1.5 [facility] Comment on above: Order Comment: Speci men Type: ARTERIAL BLOOD SPECIMENOrdering Facility: [facility] Address: [address] [place] [address] Performed By: #### A LLBG ####[facility] LABIA [id number] [place] [address] [place] O2 THERAPY NC = Nasal Cannula Normal [facility] Comment on above: Order Comment: Speci men Type: ARTERIAL BLOOD SPECIMENOrdering Facility: [facility] Address: [address] [place] [address] Performed By: #### A LLBG ####[facility] LABCLIA [id number] [place] [address] [place] Oxygen (Bld) [Partial pressure] 105 mm Hg High 85-95 [facility] Comment on above: Order Comment: Speci men Type: ARTERIAL BLOOD SPECIMENOrdering Facility: [facility] Address: [address] [place] [address] Performed By: #### A LLBG ####[facility] LABCLIA [id number] [place] [address] [place] Oxygen adjusted to patient's actual temperature (Bld) [Partial pressure] 105 mmHg High 85-95 [facility] Comment on above: Order Comment: Speci men Type: ARTERIAL BLOOD SPECIMENOrdering Facility: [facility] Address: [address] [place] [address] Performed By: #### A LLBG ####[facility] LABCLIA [id number] [place] [address] [place] Oxyhemoglobin (BldA) [Mass fraction] 97 % Normal 95-98 [facility] Comment on above: Order Comment: Speci men Type: ARTERIAL BLOOD SPECIMENOrdering Facility: [facility] Address: [address] [place] [address] Performed By: #### A LLBG ####[facility] LABCLIA [id number] [place] [id number] [place] pH (Bld) 7.43 [pH] Normal 7.35-7.45 [facility] Comment on above: Order Comment: Speci men Type: ARTERIAL BLOOD SPECIMENOrdering Facility: [facility] Address: [address] [place], [place] [address] Performed By: #### A LLBG ####[facility] LABCLIA [id number] [place] [address] [place] pH adjusted to patient's actual temperature (Bld) 7.44 Normal 7.35-7.45 [facility] Comment on above: Order Comment: Speci men Type: ARTERIAL BLOOD SPECIMENOrdering Facility: [facility] Address: [address] [place] [address] Performed By: #### A LLBG ####[facility] LABCLIA [id number] [place] [address] [place] Potassium [Moles/Vol] 4.0 mmol/L Normal 3.5-5.0 [facility] Comment on above: Order Comment: Speci men Type: ARTERIAL BLOOD SPECIMENOrdering Facility: [facility] Address: [address] [place] [address] Performed By: #### A LLBG ####[facility] LABCLIA [id number] [place] [address] [place] Sodium [Moles/Vol] 140 mmol/L Normal 136-144 [facility] Comment on above: Order Comment: Speci men Type: ARTERIAL BLOOD SPECIMENOrdering Facility: [facility] Address: [address] [place] [address] Performed By: #### A LLBG ####[facility] LABCLIA [id number] [place] [address] [place] Base excess Calc (Bld) [Moles/Vol] 2 mmol/L Normal 0-2 [facility] Comment on above: Order Comment: Speci men Type: ARTERIAL BLOOD SPECIMENOrdering Facility: [facility] Address: [address] [place] [address] Performed By: #### A LLBG ####[facility] LABCLIA [id number] [place] [address] [place] Body temperature 97.88 [degF] Normal [facility] Comment on above: Order Comment: Speci men Type: ARTERIAL BLOOD SPECIMENOrdering Facility: [facility] Address: [address] [place] [address] Performed By: #### A LLBG ####[facility] LABIA [id number] [place] [address] [place] Calcium.ionized (Bld) [Mass/Vol] 1.19 mmol/L Normal 1.08-1.30 [facility] Comment on above: Order Comment: Speci men Type: ARTERIAL BLOOD SPECIMENOrdering Facility: [facility] Address: [address] [place] [address] Performed By: #### A LLBG ####[facility] [id number] [place] [address] [place] Calcium.ionized adjusted to pH 7.4 (BldA) [Moles/Vol] 1.20 mmol/L Normal 1.08-1.30 [facility] Comment on above: Order Comment: Speci men Type: ARTERIAL BLOOD SPECIMENOrdering Facility: [facility] Address: [address] [place] [address] Performed By: #### A LLBG ####[facility] [id number] [place] [address] [place] Carboxyhemoglobin (BldA) [Mass fraction] 1.0 % Normal 0.0-2.0 [facility] Comment on above: Order Comment: Speci men Type: ARTERIAL BLOOD SPECIMENOrdering Facility: [facility] Address: [address] [place] [address] Result Comment: Carb oxyhemoglobin Reference Range for Smokers: 2.0-8.0% Performed By: #### A LLBG ####[facility] [id number] [place] [address] [place] CO2 (Bld) [Partial pressure] 43 mm Hg Normal 36-46 [facility] Comment on above: Order Comment: Speci men Type: ARTERIAL BLOOD SPECIMENOrdering Facility: [facility] Address: [address] [place] [address] Performed By: #### A LLBG ####[facility] LABCLIA [id number] [place] [address] [place] CO2 adjusted to patient's actual temperature (Bld) [Partial pressure] 42 mmHg Normal 36-46 [facility] Comment on above: Order Comment: Speci men Type: ARTERIAL BLOOD SPECIMENOrdering Facility: [facility] Address: [address] [place] [address] Performed By: #### A LLBG ####[facility] LABCLIA [id number] [place] [address] [place] Glucose [Mass/Vol] 158 mg/dL High 60-105 [facility] Comment on above: Order Comment: Speci men Type: ARTERIAL BLOOD SPECIMENOrdering Facility: [facility] Address: [address] [place] [address] Performed By: #### A LLBG ####[facility] LABCLIA [id number] [place] [address] [place] HCO3 (Bld) [Moles/Vol] 27 mmol/L High 22-26 [facility] Comment on above: Order Comment: Speci men Type: ARTERIAL BLOOD SPECIMENOrdering Facility: [facility] Address: [address] [place] [address] Performed By: #### A LLBG ####[facility] LABCLIA [id number] [place] [address] [place] Hematocrit (Bld) [Volume fraction] 36.7 % Normal 36.0-46.0 [facility] Comment on above: Order Comment: Speci men Type: ARTERIAL BLOOD SPECIMENOrdering Facility: [facility] Address: [address] [place] [address] Performed By: #### A LLBG ####[facility] LABCLIA [id number] [place] [address] [place] Hemoglobin (Bld) [Mass/Vol] 11.9 g/dL Normal 11.5-15.5 [facility] Comment on above: Order Comment: Speci men Type: ARTERIAL BLOOD SPECIMENOrdering Facility: [facility] Address: [address] [place] [address] Performed By: #### A LLBG ####[facility] LABCLIA [id number] [place] [address] [place] Lactate [Moles/Vol] 1.1 mmol/L Normal 0.5-2.2 [facility] Comment on above: Order Comment: Speci men Type: ARTERIAL BLOOD SPECIMENOrdering Facility: [facility] Address: [address] [place] [address] Performed By: #### A LLBG ####[facility] LABCLIA [id number] [place] [address] [place] LITERS 4 Liters/min Normal [facility] Comment on above: Order Comment: Speci men Type: ARTERIAL BLOOD SPECIMENOrdering Facility: [facility] Address: [address] [place] [address] Performed By: #### A LLBG ####[facility] LABCLIA [id number] [place] [address] [place] Methemoglobin (Bld) [Mass fraction] 0.9 % Normal 0.0-1.5 [facility] Comment on above: Order Comment: Speci men Type: ARTERIAL BLOOD SPECIMENOrdering Facility: [facility] Address: [address] [place] [address] Performed By: #### A LLBG ####[facility] LABCLIA [id number] [place] [address] [place] O2 THERAPY NC = Nasal Cannula Normal [facility] Comment on above: Order Comment: Speci men Type: ARTERIAL BLOOD SPECIMENOrdering Facility: [facility] Address: [address] [place] [address] Performed By: #### A LLBG ####[facility] LABCLIA [id number] [address] [address] [place] Oxygen (Bld) [Partial pressure] 116 mm Hg High 85-95 [facility] Comment on above: Order Comment: Speci men Type: ARTERIAL BLOOD SPECIMENOrdering Facility: [facility] Address: [address] [place] [address] Performed By: #### A LLBG ####[facility] LABCLIA [id number] [place] [id number] [place] Oxygen adjusted to patient's actual temperature (Bld) [Partial pressure] 113 mmHg High 85-95 [facility] Comment on above: Order Comment: Speci men Type: ARTERIAL BLOOD SPECIMENOrdering Facility: [facility] Address: [address] [place] [address] Performed By: #### A LLBG ####[facility] LABCLIA [id number] [place] [address] [place] Oxyhemoglobin (BldA) [Mass fraction] 97 % Normal 95-98 [facility] Comment on above: Order Comment: Speci men Type: ARTERIAL BLOOD SPECIMENOrdering Facility: [facility] Address: [address] [place] [address] Performed By: #### A LLBG ####[facility] LABCLIA [id number] [place] [id number] [place] pH (Bld) 7.41 [pH] Normal 7.35-7.45 [facility] Comment on above: Order Comment: Speci men Type: ARTERIAL BLOOD SPECIMENOrdering Facility: [facility] Address: [address] [place] [address] Performed By: #### A LLBG ####[facility] LABCLIA [id number] [place] [id number] [place] pH adjusted to patient's actual temperature (Bld) 7.42 Normal 7.35-7.45 [facility] Comment on above: Order Comment: Speci men Type: ARTERIAL BLOOD SPECIMENOrdering Facility: [facility] Address: [address] [place] [address] Performed By: #### A LLBG ####[facility] LABCLIA [id number] [place] [address] [place] Potassium [Moles/Vol] 4.4 mmol/L Normal 3.5-5.0 [facility] Comment on above: Order Comment: Speci men Type: ARTERIAL BLOOD SPECIMENOrdering Facility: [facility] Address: [address] [place] [address] Performed By: #### A LLBG ####[facility] LABCLIA [id number] [place] [address] [place] Sodium [Moles/Vol] 139 mmol/L Normal 136-144 [facility] Comment on above: Order Comment: Speci men Type: ARTERIAL BLOOD SPECIMENOrdering Facility: [facility] Address: [address] [place] [address] Performed By: #### A LLBG ####[facility] LABCLIA [id number] [place] [address] [place] Base excess Calc (Bld) [Moles/Vol] 2 mmol/L Normal 0-2 [facility] Comment on above: Order Comment: Speci men Type: ARTERIAL BLOOD SPECIMENOrdering Facility: [facility] Address: [address] [place] [address] Performed By: #### A LLBG ####[facility] LABCLIA [id number] [place] [address] [place] Body temperature 98.6 [degF] Normal [facility] Comment on above: Order Comment: Speci men Type: ARTERIAL BLOOD SPECIMENOrdering Facility: [facility] Address: [address] [place] [address] Performed By: #### A LLBG ####[facility] LABCLIA [id number] [place] [address] [place] Calcium.ionized (Bld) [Mass/Vol] 1.21 mmol/L Normal 1.08-1.30 [facility] Comment on above: Order Comment: Speci men Type: ARTERIAL BLOOD SPECIMENOrdering Facility: [facility] Address: [address] [place] [address] Performed By: #### A LLBG ####[facility] LABCLIA [id number] [place] [address] [place] Calcium.ionized adjusted to pH 7.4 (BldA) [Moles/Vol] 1.20 mmol/L Normal 1.08-1.30 [facility] Comment on above: Order Comment: Speci men Type: ARTERIAL BLOOD SPECIMENOrdering Facility: [facility] Address: [address] [place] [address] Performed By: #### A LLBG ####[facility] LABCLIA [id number] [place] [address] [place] Carboxyhemoglobin (BldA) [Mass fraction] 1.0 % Normal 0.0-2.0 [facility] Comment on above: Order Comment: Speci men Type: ARTERIAL BLOOD SPECIMENOrdering Facility: [facility] Address: [address] [place] [address] Result Comment: Carb oxyhemoglobin Reference Range for Smokers: 2.0-8.0% Performed By: #### A LLBG ####[facility] LABCLIA [id number] [place] [address] [place] CO2 (Bld) [Partial pressure] 45 mm Hg Normal 36-46 [facility] Comment on above: Order Comment: Speci men Type: ARTERIAL BLOOD SPECIMENOrdering Facility: [facility] Address: [address] [place] [address] Performed By: #### A LLBG ####[facility] LABCLIA [id number] [place] [address] [place] Glucose [Mass/Vol] 150 mg/dL High 60-105 [facility] Comment on above: Order Comment: Speci men Type: ARTERIAL BLOOD SPECIMENOrdering Facility: [facility] Address: [address] [place] [address] Performed By: #### A LLBG ####[facility] LABCLIA [id number] [place] [address] [place] HCO3 (Bld) [Moles/Vol] 27 mmol/L High 22-26 [facility] Comment on above: Order Comment: Speci men Type: ARTERIAL BLOOD SPECIMENOrdering Facility: [facility] Address: [address] [place] [address] Performed By: #### A LLBG ####[facility] LABCLIA [id number] [place] [address] [place] Hematocrit (Bld) [Volume fraction] 36.3 % Normal 36.0-46.0 [facility] Comment on above: Order Comment: Speci men Type: ARTERIAL BLOOD SPECIMENOrdering Facility: [facility] Address: [address] [place] [address] Performed By: #### A LLBG ####[facility] LABCLIA [id number] [place] [address] [place] Hemoglobin (Bld) [Mass/Vol] 11.8 g/dL Normal 11.5-15.5 [facility] Comment on above: Order Comment: Speci men Type: ARTERIAL BLOOD SPECIMENOrdering Facility: [facility] Address: [address] [place] [address] Performed By: #### A LLBG ####[facility] LABCLIA [id number] [place] [address] [place] Lactate [Moles/Vol] 0.9 mmol/L Normal 0.5-2.2 [facility] Comment on above: Order Comment: Speci men Type: ARTERIAL BLOOD SPECIMENOrdering Facility: [facility] Address: [address] [place] [address] Performed By: #### A LLBG ####[facility] LABCLIA [id number] [place] [address] [place] LITERS 4 Liters/min Normal [facility] Comment on above: Order Comment: Speci men Type: ARTERIAL BLOOD SPECIMENOrdering Facility: [facility] Address: [address] [place], [place] [id number] Performed By: #### A LLBG ####[facility] LABCLIA [id number] [place] [address] [place] Methemoglobin (Bld) [Mass fraction] 0.5 % Normal 0.0-1.5 [facility] Comment on above: Order Comment: Speci men Type: ARTERIAL BLOOD SPECIMENOrdering Facility: [facility] Address: [address] [place] [address] Performed By: #### A LLBG ####[facility] LABCLIA [id number] [place] [address] [place] O2 THERAPY NC = Nasal Cannula Normal [facility] Comment on above: Order Comment: Speci men Type: ARTERIAL BLOOD SPECIMENOrdering Facility: [facility] Address: [address] [place], [place] [id number] Performed By: #### A LLBG ####[facility] LABCLIA [id number] [place] [address] [place] Oxygen (Bld) [Partial pressure] 128 mm Hg High 85-95 [facility] Comment on above: Order Comment: Speci men Type: ARTERIAL BLOOD SPECIMENOrdering Facility: [facility] Address: [address] [place], [place] [id number] Performed By: #### A LLBG ####[facility] LABCLIA [id number] [place] [id number] [place] Oxyhemoglobin (BldA) [Mass fraction] 97 % Normal 95-98 [facility] Comment on above: Order Comment: Speci men Type: ARTERIAL BLOOD SPECIMENOrdering Facility: [facility] Address: [address] [place] [address] Performed By: #### A LLBG ####[facility] LABCLIA [id number] [place] [address] [place] pH (Bld) 7.39 [pH] Normal 7.35-7.45 [facility] Comment on above: Order Comment: Speci men Type: ARTERIAL BLOOD SPECIMENOrdering Facility: [facility] Address: [address] [place] [address] Performed By: #### A LLBG ####[facility] LABCLIA [id number] [place] [address] [place] Potassium [Moles/Vol] 4.2 mmol/L Normal 3.5-5.0 [facility] Comment on above: Order Comment: Speci men Type: ARTERIAL BLOOD SPECIMENOrdering Facility: [facility] Address: [address] [place] [address] Performed By: #### A LLBG ####[facility] LABIA [id number] [place] [address] [place] Sodium [Moles/Vol] 139 mmol/L Normal 136-144 [facility] Comment on above: Order Comment: Speci men Type: ARTERIAL BLOOD SPECIMENOrdering Facility: [facility] Address: [address] [place] [address] Performed By: #### A LLBG ####[facility] LABCLIA [id number] [place] [address] [place] Base excess Calc (Bld) [Moles/Vol] 0 mmol/L Normal 0-2 [facility] Comment on above: Order Comment: Speci men Type: ARTERIAL BLOOD SPECIMENOrdering Facility: [facility] Address: [address] [place] [address] Performed By: #### A LLBG ####[facility] LABCLIA [id number] [place] [address] [place] Body temperature 98.6 [degF] Normal [facility] Comment on above: Order Comment: Speci men Type: ARTERIAL BLOOD SPECIMENOrdering Facility: [facility] Address: [address] [place] [address] Performed By: #### A LLBG ####[facility] LABCLIA [id number] [place] [address] [place] Calcium.ionized (Bld) [Mass/Vol] 1.22 mmol/L Normal 1.08-1.30 [facility] Comment on above: Order Comment: Speci men Type: ARTERIAL BLOOD SPECIMENOrdering Facility: [facility] Address: [address] [place] [address] Performed By: #### A LLBG ####[facility] LABCLIA [id number] [place] [address] [place] Calcium.ionized adjusted to pH 7.4 (BldA) [Moles/Vol] 1.20 mmol/L Normal 1.08-1.30 [facility] Comment on above: Order Comment: Speci men Type: ARTERIAL BLOOD SPECIMENOrdering Facility: [facility] Address: [address] [place] [address] Performed By: #### A LLBG ####[facility] LABCLIA [id number] [place] [address] [place] Carboxyhemoglobin (BldA) [Mass fraction] 1.1 % Normal 0.0-2.0 [facility] Comment on above: Order Comment: Speci men Type: ARTERIAL BLOOD SPECIMENOrdering Facility: [facility] Address: [address] [place] [address] Result Comment: Carb oxyhemoglobin Reference Range for Smokers: 2.0-8.0% Performed By: #### A LLBG ####[facility] LABCLIA [id number] [place] [address] [place] CO2 (Bld) [Partial pressure] 45 mm Hg Normal 36-46 [facility] Comment on above: Order Comment: Speci men Type: ARTERIAL BLOOD SPECIMENOrdering Facility: [facility] Address: [address] [place] [address] Performed By: #### A LLBG ####[facility] LABCLIA [id number] [place] [address] [place] Glucose [Mass/Vol] 147 mg/dL High 60-105 [facility] Comment on above: Order Comment: Speci men Type: ARTERIAL BLOOD SPECIMENOrdering Facility: [facility] Address: [address] [place] [address] Performed By: #### A LLBG ####[facility] LABCLIA [id number] [place] [address] [place] HCO3 (Bld) [Moles/Vol] 25 mmol/L Normal 22-26 [facility] Comment on above: Order Comment: Speci men Type: ARTERIAL BLOOD SPECIMENOrdering Facility: [facility] Address: [address] [place] [address] Performed By: #### A LLBG ####[facility] LABCLIA [id number] [place] [address] [place] Hematocrit (Bld) [Volume fraction] 38.7 % Normal 36.0-46.0 [facility] Comment on above: Order Comment: Speci men Type: ARTERIAL BLOOD SPECIMENOrdering [facility] Address: [address] [place] [address] Performed By: #### A LLBG ####[facility] LABCLIA [id number] [place] [address] [place] Hemoglobin (Bld) [Mass/Vol] 12.6 g/dL Normal 11.5-15.5 [facility] Comment on above: Order Comment: Speci men Type: ARTERIAL BLOOD SPECIMENOrdering Facility: [facility] Address: [address] [place] [address] Performed By: #### A LLBG ####[facility] LABCLIA [id number] [place] [address] [place] Lactate [Moles/Vol] 1.1 mmol/L Normal 0.5-2.2 [facility] Comment on above: Order Comment: Speci men Type: ARTERIAL BLOOD SPECIMENOrdering Facility: [facility] Address: [address] [place] [address] Performed By: #### A LLBG ####[facility] LABCLIA [id number] [place] [address] [place] LITERS 4 Liters/min Normal [facility] Comment on above: Order Comment: Speci men Type: ARTERIAL BLOOD SPECIMENOrdering Facility: [facility] Address: [address] [place] [address] Performed By: #### A LLBG ####[facility] LABIA [id number] [place] [address] [place] Methemoglobin (Bld) [Mass fraction] 0.8 % Normal 0.0-1.5 [facility] Comment on above: Order Comment: Speci men Type: ARTERIAL BLOOD SPECIMENOrdering Facility: [facility] Address: [address] [place] [address] Performed By: #### A LLBG ####[facility] LABIA [id number] [place] [address] [place] O2 THERAPY NC = Nasal Cannula Normal [facility] Comment on above: Order Comment: Speci men Type: ARTERIAL BLOOD SPECIMENOrdering Facility: [facility] Address: [address] [place] [address] Performed By: #### A LLBG ####[facility] LABCLIA [id number] [place] [address] [place] Oxygen (Bld) [Partial pressure] 104 mm Hg High 85-95 [facility] Comment on above: Order Comment: Speci men Type: ARTERIAL BLOOD SPECIMENOrdering Facility: [facility] Address: [address] [place] [address] Performed By: #### A LLBG ####[facility] LABIA [id number] [place] [address] [place] Oxyhemoglobin (BldA) [Mass fraction] 96 % Normal 95-98 [facility] Comment on above: Order Comment: Speci men Type: ARTERIAL BLOOD SPECIMENOrdering Facility: [facility] Address: [address] [place] [address] Performed By: #### A LLBG ####[facility] LABIA [id number] [place] [address] [place] pH (Bld) 7.37 [pH] Normal 7.35-7.45 [facility] Comment on above: Order Comment: Speci men Type: ARTERIAL BLOOD SPECIMENOrdering Facility: [facility] Address: [address] [place] [address] Performed By: #### A LLBG ####[facility] LABIA [id number] [place] [address] [place] Potassium [Moles/Vol] 4.1 mmol/L Normal 3.5-5.0 [facility] Comment on above: Order Comment: Speci men Type: ARTERIAL BLOOD SPECIMENOrdering Facility: [facility] Address: [address] [place] [address] Performed By: #### A LLBG ####[facility] LABIA [id number] [place] [address] [place] Sodium [Moles/Vol] 140 mmol/L Normal 136-144 [facility] Comment on above: Order Comment: Speci men Type: ARTERIAL BLOOD SPECIMENOrdering Facility: [facility] Address: [address] [place] [address] Performed By: #### A LLBG ####[facility] LABIA [id number] [place] [id number] [place] Base excess Calc (Bld) [Moles/Vol] 0 mmol/L Normal 0-2 [facility] Comment on above: Order Comment: Speci men Type: ARTERIAL BLOOD SPECIMENOrdering Facility: [facility] Address: [address] [place] [address] Performed By: #### A LLBG ####[facility] LABCLIA [id number] [place] [address] [place] Body temperature 98.6 [degF] Normal [facility] Comment on above: Order Comment: Speci men Type: ARTERIAL BLOOD SPECIMENOrdering Facility: [facility] Address: [address] [place] [address] Performed By: #### A LLBG ####[facility] LABCLIA [id number] [place] [address] [place] Calcium.ionized (Bld) [Mass/Vol] 1.27 mmol/L Normal 1.08-1.30 [facility] Comment on above: Order Comment: Speci men Type: ARTERIAL BLOOD SPECIMENOrdering Facility: [facility] Address: [address] [place] [address] Performed By: #### A LLBG ####[facility] LABIA [id number] [place] [address] [place] Calcium.ionized adjusted to pH 7.4 (BldA) [Moles/Vol] 1.24 mmol/L Normal 1.08-1.30 [facility] Comment on above: Order Comment: Speci men Type: ARTERIAL BLOOD SPECIMENOrdering Facility: [facility] Address: [address] [place] [address] Performed By: #### A LLBG ####[facility] LABCLIA [id number] [place] [address] [place] Carboxyhemoglobin (BldA) [Mass fraction] 1.3 % Normal 0.0-2.0 [facility] Comment on above: Order Comment: Speci men Type: ARTERIAL BLOOD SPECIMENOrdering Facility: [facility] Address: [address] [place] [address] Result Comment: Carb oxyhemoglobin Reference Range for Smokers: 2.0-8.0% Performed By: #### A LLBG ####[facility] LABCLIA [id number] [place] [address] [place] CO2 (Bld) [Partial pressure] 47 mm Hg High 36-46 [facility] Comment on above: Order Comment: Speci men Type: ARTERIAL BLOOD SPECIMENOrdering Facility: [facility] Address: [address] [place] [address] Performed By: #### A LLBG ####[facility] LABCLIA [id number] [place] [address] [place] FIO2 40 % Normal [facility] Comment on above: Order Comment: Speci men Type: ARTERIAL BLOOD SPECIMENOrdering Facility: [facility] Address: [address] [place] [address] Performed By: #### A LLBG ####[facility] LABCLIA [id number] [place] [address] [place] Glucose [Mass/Vol] 133 mg/dL High 60-105 [facility] Comment on above: Order Comment: Speci men Type: ARTERIAL BLOOD SPECIMENOrdering Facility: [facility] Address: [address] [place] [address] Performed By: #### A LLBG ####[facility] LABCLIA [id number] [place] [address] [place] HCO3 (Bld) [Moles/Vol] 26 mmol/L Normal 22-26 [facility] Comment on above: Order Comment: Speci men Type: ARTERIAL BLOOD SPECIMENOrdering Facility: [facility] Address: [address] [place] [address] Performed By: #### A LLBG ####[facility] LABCLIA [id number] [place] [address] [place] Hematocrit (Bld) [Volume fraction] 37.9 % Normal 36.0-46.0 [facility] Comment on above: Order Comment: Speci men Type: ARTERIAL BLOOD SPECIMENOrdering Facility: [facility] Address: [address] [place] [address] Performed By: #### A LLBG ####[facility] LABCLIA [id number] [place] [address] [place] Hemoglobin (Bld) [Mass/Vol] 12.3 g/dL Normal 11.5-15.5 [facility] Comment on above: Order Comment: Speci men Type: ARTERIAL BLOOD SPECIMENOrdering Facility: [facility] Address: [address] [place] [address] Performed By: #### A LLBG ####[facility] LABCLIA [id number] [place] [address] [place] Lactate [Moles/Vol] 1.2 mmol/L Normal 0.5-2.2 [facility] Comment on above: Order Comment: Speci men Type: ARTERIAL BLOOD SPECIMENOrdering Facility: [facility] Address: [address] [place] [address] Performed By: #### A LLBG ####[facility] LABIA [id number] [place] [address] [place] Methemoglobin (Bld) [Mass fraction] 0.6 % Normal 0.0-1.5 [facility] Comment on above: Order Comment: Speci men Type: ARTERIAL BLOOD SPECIMENOrdering Facility: [facility] Address: [address] [place] [address] Performed By: #### A LLBG ####[facility] LABCLIA [id number] [place] [address] [place] O2 THERAPY VENT=Ventilator Normal [facility] Comment on above: Order Comment: Speci men Type: ARTERIAL BLOOD SPECIMENOrdering Facility: [facility] Address: [address] [place] [address] Performed By: #### A LLBG ####[facility] LABCLIA [id number] [place] [address] [place] Oxygen (Bld) [Partial pressure] 106 mm Hg High 85-95 [facility] Comment on above: Order Comment: Speci men Type: ARTERIAL BLOOD SPECIMENOrdering Facility: [facility] Address: [address] [place] [address] Performed By: #### A LLBG ####[facility] LABCLIA [id number] [place] [address] [place] Oxyhemoglobin (BldA) [Mass fraction] 96 % Normal 95-98 [facility] Comment on above: Order Comment: Speci men Type: ARTERIAL BLOOD SPECIMENOrdering Facility: [facility] Address: [address] [place] [address] Performed By: #### A LLBG ####[facility] LABCLIA [id number] [place] [address] [place] pH (Bld) 7.36 [pH] Normal 7.35-7.45 [facility] Comment on above: Order Comment: Speci men Type: ARTERIAL BLOOD SPECIMENOrdering Facility: [facility] Address: [address] [place] [address] Performed By: #### A LLBG ####[facility] LABCLIA [id number] [place] [address] [place] PO2 / FIO2 RATIO 265 mmHg Low >[address] [facility] Comment on above: Order Comment: Speci men Type: ARTERIAL BLOOD SPECIMENOrdering Facility: [facility] Address: [address] [place] [address] Performed By: #### A LLBG ####[facility] LABCLIA [id number] [place] [address] [place] Potassium [Moles/Vol] 4.3 mmol/L Normal 3.5-5.0 [facility] Comment on above: Order Comment: Speci men Type: ARTERIAL BLOOD SPECIMENOrdering Facility: [facility] Address: [address] [place] [address] Performed By: #### A LLBG ####[facility] LABCLIA [id number] [place] [address] [place] Sodium [Moles/Vol] 141 mmol/L Normal 136-144 [facility] Comment on above: Order Comment: Speci men Type: ARTERIAL BLOOD SPECIMENOrdering Facility: [facility] Address: [address] [place] [address] Performed By: #### A LLBG ####[facility] LABCLIA [id number] [place] [address] [place] Base excess Calc (Bld) [Moles/Vol] 1 mmol/L Normal 0-2 [facility] Comment on above: Order Comment: Speci men Type: ARTERIAL BLOOD SPECIMENOrdering Facility: [facility] Address: [address] [place] [address] Performed By: #### A LLBG ####[facility] LABCLIA [id number] [place] [address] [place] Body temperature 98.6 [degF] Normal [facility] Comment on above: Order Comment: Speci men Type: ARTERIAL BLOOD SPECIMENOrdering Facility: [facility] Address: [address] [place] [address] Performed By: #### A LLBG ####[facility] LABCLIA [id number] [place] [address] [place] Calcium.ionized (Bld) [Mass/Vol] 1.26 mmol/L Normal 1.08-1.30 [facility] Comment on above: Order Comment: Speci men Type: ARTERIAL BLOOD SPECIMENOrdering Facility: [facility] Address: [address] [place] [address] Performed By: #### A LLBG ####[facility] LABCLIA [id number] [place] [address] [place] Calcium.ionized adjusted to pH 7.4 (BldA) [Moles/Vol] 1.23 mmol/L Normal 1.08-1.30 [facility] Comment on above: Order Comment: Speci men Type: ARTERIAL BLOOD SPECIMENOrdering Facility: [facility] Address: [address] [place] [address] Performed By: #### A LLBG ####[facility] LABIA [id number] [place] [address] [place] Carboxyhemoglobin (BldA) [Mass fraction] 1.8 % Normal 0.0-2.0 [facility] Comment on above: Order Comment: Speci men Type: ARTERIAL BLOOD SPECIMENOrdering Facility: [facility] Address: [address] [place] [address] Result Comment: Carb oxyhemoglobin Reference Range for Smokers: 2.0-8.0% Performed By: #### A LLBG ####[facility] LABIA [id number] [place] [address] [place] CO2 (Bld) [Partial pressure] 48 mm Hg High 36-46 [facility] Comment on above: Order Comment: Speci men Type: ARTERIAL BLOOD SPECIMENOrdering Facility: [facility] Address: [address] [place] [address] Performed By: #### A LLBG ####[facility] LABIA [id number] [place] [address] [place] Glucose [Mass/Vol] 102 mg/dL Normal 60-105 [facility] Comment on above: Order Comment: Speci men Type: ARTERIAL BLOOD SPECIMENOrdering Facility: [facility] Address: [address] [place] [address] Performed By: #### A LLBG ####[facility] LABCLIA [id number] [place] [address] [place] HCO3 (Bld) [Moles/Vol] 26 mmol/L Normal 22-26 [facility] Comment on above: Order Comment: Speci men Type: ARTERIAL BLOOD SPECIMENOrdering Facility: [facility] Address: [address] [place] [address] Performed By: #### A LLBG ####[facility] LABCLIA [id number] [place] [address] [place] Hematocrit (Bld) [Volume fraction] 34.3 % Low 36.0-46.0 [facility] Comment on above: Order Comment: Speci men Type: ARTERIAL BLOOD SPECIMENOrdering Facility: [facility] Address: [address] [place] [address] Performed By: #### A LLBG ####[facility] LABCLIA [id number] [place] [address] [place] Hemoglobin (Bld) [Mass/Vol] 11.1 g/dL Low 11.5-15.5 [facility] Comment on above: Order Comment: Speci men Type: ARTERIAL BLOOD SPECIMENOrdering Facility: [facility] Address: [address] [place] [address] Performed By: #### A LLBG ####[facility] LABCLIA [id number] [place] [address] [place] Lactate [Moles/Vol] 1.7 mmol/L Normal 0.5-2.2 [facility] Comment on above: Order Comment: Speci men Type: ARTERIAL BLOOD SPECIMENOrdering Facility: [facility] Address: [address] [place] [address] Performed By: #### A LLBG ####[facility] LABCLIA [id number] [place] [address] [place] Methemoglobin (Bld) [Mass fraction] 0.7 % Normal 0.0-1.5 [facility] Comment on above: Order Comment: Speci men Type: ARTERIAL BLOOD SPECIMENOrdering Facility: [facility] Address: [address] [place] [id number] Performed By: #### A LLBG ####[facility] LABCLIA [id number] [place] [id number] [place] O2 THERAPY VENT=Ventilator Normal [facility] Comment on above: Order Comment: Speci men Type: ARTERIAL BLOOD SPECIMENOrdering Facility: [facility] Address: [address] [place] [address] Performed By: #### A LLBG ####[facility] LABCLIA [id number] [place] [address] [place] Oxygen (Bld) [Partial pressure] 95 mm Hg Normal 85-95 [facility] Comment on above: Order Comment: Speci men Type: ARTERIAL BLOOD SPECIMENOrdering Facility: [facility] Address: [address] [place] [address] Performed By: #### A LLBG ####[facility] LABCLIA [id number] [place] [address] [place] Oxyhemoglobin (BldA) [Mass fraction] 95 % Normal 95-98 [facility] Comment on above: Order Comment: Speci men Type: ARTERIAL BLOOD SPECIMENOrdering Facility: [facility] Address: [address] [place] [address] Performed By: #### A LLBG ####[facility] LABCLIA [id number] [place] [id number] [place] pH (Bld) 7.36 [pH] Normal 7.35-7.45 [facility] Comment on above: Order Comment: Speci men Type: ARTERIAL BLOOD SPECIMENOrdering Facility: [facility] Address: [address] [place], [place] [id number] Performed By: #### A LLBG ####[facility] LABCLIA [id number] [place] [id number] [place] Potassium [Moles/Vol] 4.4 mmol/L Normal 3.5-5.0 [facility] Comment on above: Order Comment: Speci men Type: ARTERIAL BLOOD SPECIMENOrdering Facility: [facility] Address: [address] [place] [address] Performed By: #### A LLBG ####[facility] LABCLIA [id number] [place] [address] [place] Sodium [Moles/Vol] 142 mmol/L Normal 136-144 [facility] Comment on above: Order Comment: Speci men Type: ARTERIAL BLOOD SPECIMENOrdering Facility: [facility] Address: [address] [place] [address] Performed By: #### A LLBG ####[facility] LABIA [id number] [place] [address] [place] Base deficit (BldA) [Moles/Vol] -1 mmol/L Normal -2-0 [facility] Comment on above: Order Comment: Speci men Type: ARTERIAL BLOOD SPECIMENOrdering Facility: [facility] Address: [address] [place] [address] Performed By: #### A LLBG ####[facility] LABCLIA [id number] [place] [address] [place] Calcium.ionized (Bld) [Mass/Vol] 1.33 mmol/L High 1.08-1.30 [facility] Comment on above: Order Comment: Speci men Type: ARTERIAL BLOOD SPECIMENOrdering Facility: [facility] Address: [address] [place] [address] Performed By: #### A LLBG ####[facility] LABIA [id number] [place] [address] [place] Calcium.ionized adjusted to pH 7.4 (BldA) [Moles/Vol] 1.25 mmol/L Normal 1.08-1.30 [facility] Comment on above: Order Comment: Speci men Type: ARTERIAL BLOOD SPECIMENOrdering Facility: [facility] Address: [address] [place] [address] Performed By: #### A LLBG ####[facility] LABCLIA [id number] [place] [id number] [place] Carboxyhemoglobin (BldA) [Mass fraction] 1.1 % Normal 0.0-2.0 [facility] Comment on above: Order Comment: Speci men Type: ARTERIAL BLOOD SPECIMENOrdering Facility: [facility] Address: [address] [place] [address] Result Comment: Carb oxyhemoglobin Reference Range for Smokers: 2.0-8.0% Performed By: #### A LLBG ####[facility] LABCLIA [id number] [place] [address] [place] CO2 (Bld) [Partial pressure] 53 mm Hg High 36-46 [facility] Comment on above: Order Comment: Speci men Type: ARTERIAL BLOOD SPECIMENOrdering Facility: [facility] Address: [address] [place] [address] Performed By: #### A LLBG ####[facility] LABCLIA [id number] [place] [address] [place] CO2 adjusted to patient's actual temperature (Bld) [Partial pressure] 53 mmHg High 36-46 [facility] Comment on above: Order Comment: Speci men Type: ARTERIAL BLOOD SPECIMENOrdering Facility: [facility] Address: [address] [place] [address] Performed By: #### A LLBG ####[facility] LABCLIA [id number] [place] [address] [place] Glucose [Mass/Vol] 187 mg/dL High 60-105 [facility] Comment on above: Order Comment: Speci men Type: ARTERIAL BLOOD SPECIMENOrdering Facility: [facility] Address: [address] [place] [address] Performed By: #### A LLBG ####[facility] LABCLIA [id number] [place] [address] [place] HCO3 (Bld) [Moles/Vol] 25 mmol/L Normal 22-26 [facility] Comment on above: Order Comment: Speci men Type: ARTERIAL BLOOD SPECIMENOrdering Facility: [facility] Address: [address] [place] [address] Performed By: #### A LLBG ####[facility] LABCLIA [id number] [place] [address] [place] Hematocrit (Bld) [Volume fraction] 28.7 % Low 36.0-46.0 [facility] Comment on above: Order Comment: Speci men Type: ARTERIAL BLOOD SPECIMENOrdering Facility: [facility] Address: [address] [place] [address] Performed By: #### A LLBG ####[facility] LABIA [id number] [place] [address] [place] Hemoglobin (Bld) [Mass/Vol] 9.3 g/dL Low 11.5-15.5 [facility] Comment on above: Order Comment: Speci men Type: ARTERIAL BLOOD SPECIMENOrdering Facility: [facility] Address: [address] [place] [address] Performed By: #### A LLBG ####[facility] LABIA [id number] [place] [address] [place] Lactate [Moles/Vol] 3.2 mmol/L High 0.5-2.2 [facility] Comment on above: Order Comment: Speci men Type: ARTERIAL BLOOD SPECIMENOrdering Facility: [facility] Address: [address] [place] [address] Performed By: #### A LLBG ####[facility] LABCLIA [id number] [place] [address] [place] Methemoglobin (Bld) [Mass fraction] 1.8 % High 0.0-1.5 [facility] Comment on above: Order Comment: Speci men Type: ARTERIAL BLOOD SPECIMENOrdering Facility: [facility] Address: [address] [place] [address] Performed By: #### A LLBG ####[facility] LABCLIA [id number] [address] [address] [place] Oxygen (Bld) [Partial pressure] 300 mm Hg High 85-95 [facility] Comment on above: Order Comment: Speci men Type: ARTERIAL BLOOD SPECIMENOrdering Facility: [facility] Address: [address] [place] [address] Performed By: #### A LLBG ####[facility] LABCLIA [id number] [place] [address] [place] Oxygen adjusted to patient's actual temperature (Bld) [Partial pressure] 300 mmHg High 85-95 [facility] Comment on above: Order Comment: Speci men Type: ARTERIAL BLOOD SPECIMENOrdering Facility: [facility] Address: [address] [place] [address] Performed By: #### A LLBG ####[facility] LABCLIA [id number] [place] [address] [place] Oxyhemoglobin (BldA) [Mass fraction] 97 % Normal 95-98 [facility] Comment on above: Order Comment: Speci men Type: ARTERIAL BLOOD SPECIMENOrdering Facility: [facility] Address: [address] [place] [address] Performed By: #### A LLBG ####[facility] LABCLIA [id number] [place] [address] [place] pH (Bld) 7.30 [pH] Low 7.35-7.45 [facility] Comment on above: Order Comment: Speci men Type: ARTERIAL BLOOD SPECIMENOrdering Facility: [facility] [facility] Address: [address] [place] [address] Performed By: #### A LLBG ####[facility] LABCLIA [id number] [place] [address] [place] pH adjusted to patient's actual temperature (Bld) 7.30 Low 7.35-7.45 [facility] Comment on above: Order Comment: Speci men Type: ARTERIAL BLOOD SPECIMENOrdering Facility: [facility] Address: [address] [place] [address] Performed By: #### A LLBG ####[facility] LABIA [id number] [place] [address] [place] Potassium [Moles/Vol] 4.1 mmol/L Normal 3.5-5.0 [facility] Comment on above: Order Comment: Speci men Type: ARTERIAL BLOOD SPECIMENOrdering Facility: [facility] Address: [address] [place] [address] Performed By: #### A LLBG ####[facility] LABIA [id number] [place] [address] [place] Sodium [Moles/Vol] 138 mmol/L Normal 136-144 [facility] Comment on above: Order Comment: Speci men Type: ARTERIAL BLOOD SPECIMENOrdering Facility: [facility] Address: [address] [place] [address] Performed By: #### A LLBG ####[facility] LABIA [id number] [place] [address] [place] Base deficit (BldA) [Moles/Vol] -1 mmol/L Normal -2-0 [facility] Comment on above: Order Comment: Speci men Type: ARTERIAL BLOOD SPECIMENOrdering Facility: [facility] Address: [address] [place] [address] Performed By: #### A LLBG ####[facility] LABIA [id number] [place] [address] [place] Calcium.ionized (Bld) [Mass/Vol] 1.06 mmol/L Low 1.08-1.30 [facility] Comment on above: Order Comment: Speci men Type: ARTERIAL BLOOD SPECIMENOrdering Facility: [facility] Address: [address] [place] [address] Performed By: #### A LLBG ####[facility] LABCLIA [id number] [place] [address] [place] Calcium.ionized adjusted to pH 7.4 (BldA) [Moles/Vol] 1.06 mmol/L Low 1.08-1.30 [facility] Comment on above: Order Comment: Speci men Type: ARTERIAL BLOOD SPECIMENOrdering Facility: [facility] Address: [address] [place] [address] Performed By: #### A LLBG ####[facility] LABCLIA [id number] [place] [address] [place] Carboxyhemoglobin (BldA) [Mass fraction] 1.3 % Normal 0.0-2.0 [facility] Comment on above: Order Comment: Speci men Type: ARTERIAL BLOOD SPECIMENOrdering Facility: [facility] Address: [address] [place] [address] Result Comment: Carb oxyhemoglobin Reference Range for Smokers: 2.0-8.0% Performed By: #### A LLBG ####[facility] LABCLIA [id number] [place] [address] [place] CO2 (Bld) [Partial pressure] 37 mm Hg Normal 36-46 [facility] Comment on above: Order Comment: Speci men Type: ARTERIAL BLOOD SPECIMENOrdering Facility: [facility] Address: [address] [place] [address] Performed By: #### A LLBG ####[facility] LABCLIA [id number] [place] [address] [place] CO2 adjusted to patient's actual temperature (Bld) [Partial pressure] 37 mmHg Normal 36-46 [facility] Comment on above: Order Comment: Speci men Type: ARTERIAL BLOOD SPECIMENOrdering Facility: [facility] Address: [address] [place] [address] Performed By: #### A LLBG ####[facility] LABCLIA [id number] [place] [address] [place] Glucose [Mass/Vol] 293 mg/dL High 60-105 [facility] Comment on above: Order Comment: Speci men Type: ARTERIAL BLOOD SPECIMENOrdering Facility: [facility] Address: [address] [place] [address] Performed By: #### A LLBG ####[facility] LABCLIA [id number] [place] [address] [place] HCO3 (Bld) [Moles/Vol] 23 mmol/L Normal 22-26 [facility] Comment on above: Order Comment: Speci men Type: ARTERIAL BLOOD SPECIMENOrdering Facility: [facility] Address: [address] [place] [address] Performed By: #### A LLBG ####[facility] LABCLIA [id number] [place] [address] [place] Hematocrit (Bld) [Volume fraction] 24.8 % Low 36.0-46.0 [facility] Comment on above: Order Comment: Speci men Type: ARTERIAL BLOOD SPECIMENOrdering Facility: [facility] Address: [address] [place] [address] Performed By: #### A LLBG ####[facility] LABCLIA [id number] [place] [address] [place] Hemoglobin (Bld) [Mass/Vol] 8.0 g/dL Low 11.5-15.5 [facility] Comment on above: Order Comment: Speci men Type: ARTERIAL BLOOD SPECIMENOrdering Facility: [facility] Address: [address] [place] [address] Performed By: #### A LLBG ####[facility] LABCLIA [id number] [place] [address] [place] Lactate [Moles/Vol] 2.9 mmol/L High 0.5-2.2 [facility] Comment on above: Order Comment: Speci men Type: ARTERIAL BLOOD SPECIMENOrdering Facility: [facility] Address: [address] [place] [address] Performed By: #### A LLBG ####[facility] LABCLIA [id number] [place] [address] [place] Methemoglobin (Bld) [Mass fraction] 0.7 % Normal 0.0-1.5 [facility] Comment on above: Order Comment: Speci men Type: ARTERIAL BLOOD SPECIMENOrdering Facility: [facility] Address: [address] [place] [address] Performed By: #### A LLBG ####[facility] LABCLIA [id number] [place] [address] [place] Oxygen (Bld) [Partial pressure] 228 mm Hg High 85-95 [facility] Comment on above: Order Comment: Speci men Type: ARTERIAL BLOOD SPECIMENOrdering Facility: [facility] Address: [address] [place] [address] Performed By: #### A LLBG ####[facility] LABCLIA [id number] [place] [address] [place] Oxygen adjusted to patient's actual temperature (Bld) [Partial pressure] 228 mmHg High 85-95 [facility] Comment on above: Order Comment: Speci men Type: ARTERIAL BLOOD SPECIMENOrdering Facility: [facility] Address: [address] [place], [place] [id number] Performed By: #### A LLBG ####[facility] LABCLIA [id number] [address] [address] [place] Oxyhemoglobin (BldA) [Mass fraction] 98 % Normal 95-98 [facility] Comment on above: Order Comment: Speci men Type: ARTERIAL BLOOD SPECIMENOrdering Facility: [facility] Address: [address] [place] [address] Performed By: #### A LLBG ####[facility] LABCLIA [id number] [place] [address] [place] pH (Bld) 7.40 [pH] Normal 7.35-7.45 [facility] Comment on above: Order Comment: Speci men Type: ARTERIAL BLOOD SPECIMENOrdering Facility: [facility] Address: [address] [place] [address] Performed By: #### A LLBG ####[facility] LABCLIA [id number] [place] [address] [place] pH adjusted to patient's actual temperature (Bld) 7.40 Normal 7.35-7.45 [facility] Comment on above: Order Comment: Speci men Type: ARTERIAL BLOOD SPECIMENOrdering Facility: [facility] Address: [address] [place] [address] Performed By: #### A LLBG ####[facility] LABCLIA [id number] [place] [address] [place] Potassium [Moles/Vol] 5.8 mmol/L High 3.5-5.0 [facility] Comment on above: Order Comment: Speci men Type: ARTERIAL BLOOD SPECIMENOrdering Facility: [facility] Address: [address] [place] [address] Performed By: #### A LLBG ####[facility] LABCLIA [id number] [place] [address] [place] Sodium [Moles/Vol] 135 mmol/L Low 136-144 [facility] Comment on above: Order Comment: Speci men Type: ARTERIAL BLOOD SPECIMENOrdering Facility: [facility] Address: [address] [place] [address] Performed By: #### A LLBG ####[facility] LABCLIA [id number] [place] [address] [place] Base deficit (BldA) [Moles/Vol] -1 mmol/L Normal -2-0 [facility] Comment on above: Order Comment: Speci men Type: ARTERIAL BLOOD SPECIMENOrdering Facility: [facility] Address: [address] [place] [address] Performed By: #### A LLBG ####[facility] [id number] [place] [address] [place] Calcium.ionized (Bld) [Mass/Vol] 1.09 mmol/L Normal 1.08-1.30 [facility] Comment on above: Order Comment: Speci men Type: ARTERIAL BLOOD SPECIMENOrdering Facility: [facility] Address: [address] [place] [address] Performed By: #### A LLBG ####[facility] [id number] [place] [address] [place] Calcium.ionized adjusted to pH 7.4 (BldA) [Moles/Vol] 1.10 mmol/L Normal 1.08-1.30 [facility] Comment on above: Order Comment: Speci men Type: ARTERIAL BLOOD SPECIMENOrdering Facility: [facility] Address: [address] [place] [address] Performed By: #### A LLBG ####[facility] [id number] [place] [address] [place] Carboxyhemoglobin (BldA) [Mass fraction] 1.3 % Normal 0.0-2.0 [facility] Comment on above: Order Comment: Speci men Type: ARTERIAL BLOOD SPECIMENOrdering Facility: [facility] Address: [address] [place] [address] Result Comment: Carb oxyhemoglobin Reference Range for Smokers: 2.0-8.0% Performed By: #### A LLBG ####[facility] [id number] [place] [address] [place] CO2 (Bld) [Partial pressure] 36 mm Hg Normal 36-46 [facility] Comment on above: Order Comment: Speci men Type: ARTERIAL BLOOD SPECIMENOrdering Facility: [facility] Address: [address] [place] [address] Performed By: #### A LLBG ####[facility] LABCLIA [id number] [place] [address] [place] CO2 adjusted to patient's actual temperature (Bld) [Partial pressure] 36 mmHg Normal 36-46 [facility] Comment on above: Order Comment: Speci men Type: ARTERIAL BLOOD SPECIMENOrdering Facility: [facility] Address: [address] [place] [address] Performed By: #### A LLBG ####[facility] LABCLIA [id number] [place] [address] [place] Glucose [Mass/Vol] 209 mg/dL High 60-105 [facility] Comment on above: Order Comment: Speci men Type: ARTERIAL BLOOD SPECIMENOrdering Facility: [facility] Address: [address] [place] [address] Performed By: #### A LLBG ####[facility] LABCLIA [id number] [place] [address] [place] HCO3 (Bld) [Moles/Vol] 23 mmol/L Normal 22-26 [facility] Comment on above: Order Comment: Speci men Type: ARTERIAL BLOOD SPECIMENOrdering Facility: [facility] Address: [address] [place] [address] Performed By: #### A LLBG ####[facility] LABCLIA [id number] [place] [address] [place] Hematocrit (Bld) [Volume fraction] 27.6 % Low 36.0-46.0 [facility] Comment on above: Order Comment: Speci men Type: ARTERIAL BLOOD SPECIMENOrdering Facility: [facility] Address: [address] [place] [address] Performed By: #### A LLBG ####[facility] LABCLIA [id number] [place] [address] [place] Hemoglobin (Bld) [Mass/Vol] 8.9 g/dL Low 11.5-15.5 [facility] Comment on above: Order Comment: Speci men Type: ARTERIAL BLOOD SPECIMENOrdering Facility: [facility] Address: [address] [place] [address] Performed By: #### A LLBG ####[facility] LABIA [id number] [place] [address] [place] Lactate [Moles/Vol] 2.4 mmol/L High 0.5-2.2 [facility] Comment on above: Order Comment: Speci men Type: ARTERIAL BLOOD SPECIMENOrdering Facility: [facility] Address: [address] [place] [address] Performed By: #### A LLBG ####[facility] LABIA [id number] [place] [address] [place] Methemoglobin (Bld) [Mass fraction] 0.8 % Normal 0.0-1.5 [facility] Comment on above: Order Comment: Speci men Type: ARTERIAL BLOOD SPECIMENOrdering Facility: [facility] Address: [address] [place] [address] Performed By: #### A LLBG ####[facility] LABCLIA [id number] [place] [address] [place] Oxygen (Bld) [Partial pressure] 299 mm Hg High 85-95 [facility] Comment on above: Order Comment: Speci men Type: ARTERIAL BLOOD SPECIMENOrdering Facility: [facility] Address: [address] [place] [address] Performed By: #### A LLBG ####[facility] LABIA [id number] [place] [id number] [place] Oxygen adjusted to patient's actual temperature (Bld) [Partial pressure] 299 mmHg High 85-95 [facility] Comment on above: Order Comment: Speci men Type: ARTERIAL BLOOD SPECIMENOrdering Facility: [facility] Address: [address] [place] [address] Performed By: #### A LLBG ####[facility] LABCLIA [id number] [place] [address] [place] Oxyhemoglobin (BldA) [Mass fraction] 98 % Normal 95-98 [facility] Comment on above: Order Comment: Speci men Type: ARTERIAL BLOOD SPECIMENOrdering Facility: [facility] Address: [address] [place] [address] Performed By: #### A LLBG ####[facility] LABCLIA [id number] [place] [address] [place] pH (Bld) 7.42 [pH] Normal 7.35-7.45 [facility] Comment on above: Order Comment: Speci men Type: ARTERIAL BLOOD SPECIMENOrdering Facility: [facility] Address: [address] [place] [address] Performed By: #### A LLBG ####[facility] LABCLIA [id number] [place] [address] [place] pH adjusted to patient's actual temperature (Bld) 7.42 Normal 7.35-7.45 [facility] Comment on above: Order Comment: Speci men Type: ARTERIAL BLOOD SPECIMENOrdering Facility: [facility] Address: [address] [place], [place] [address] Performed By: #### A LLBG ####[facility] LABCLIA [id number] [place] [address] [place] Potassium [Moles/Vol] 4.8 mmol/L Normal 3.5-5.0 [facility] Comment on above: Order Comment: Speci men Type: ARTERIAL BLOOD SPECIMENOrdering Facility: [facility] Address: [address] [place] [address] Performed By: #### A LLBG ####[facility] LABCLIA [id number] [place] [address] [place] Sodium [Moles/Vol] 136 mmol/L Normal 136-144 [facility] Comment on above: Order Comment: Speci men Type: ARTERIAL BLOOD SPECIMENOrdering Facility: [facility] Address: [address] [place] [address] Performed By: #### A LLBG ####[facility] LABCLIA [id number] [place] [address] [place] Base deficit (BldA) [Moles/Vol] -1 mmol/L Normal -2-0 [facility] Comment on above: Order Comment: Speci men Type: ARTERIAL BLOOD SPECIMENOrdering Facility: [facility] Address: [address] [place] [address] Performed By: #### A LLBG ####[facility] LABCLIA [id number] [place] [address] [place] Calcium.ionized (Bld) [Mass/Vol] 1.27 mmol/L Normal 1.08-1.30 [facility] Comment on above: Order Comment: Speci men Type: ARTERIAL BLOOD SPECIMENOrdering Facility: [facility] Address: [address] [place] [address] Performed By: #### A LLBG ####[facility] LABCLIA [id number] [place] [address] [place] Calcium.ionized adjusted to pH 7.4 (BldA) [Moles/Vol] 1.23 mmol/L Normal 1.08-1.30 [facility] Comment on above: Order Comment: Speci men Type: ARTERIAL BLOOD SPECIMENOrdering Facility: [facility] Address: [address] [place] [address] Performed By: #### A LLBG ####[facility] LABCLIA [id number] [place] [address] [place] Carboxyhemoglobin (BldA) [Mass fraction] 0.8 % Normal 0.0-2.0 [facility] Comment on above: Order Comment: Speci men Type: ARTERIAL BLOOD SPECIMENOrdering Facility: [facility] Address: [address] [place] [address] Result Comment: Carb oxyhemoglobin Reference Range for Smokers: 2.0-8.0% Performed By: #### A LLBG ####[facility] LABCLIA [id number] [place] [address] [place] CO2 (Bld) [Partial pressure] 46 mm Hg Normal 36-46 [facility] Comment on above: Order Comment: Speci men Type: ARTERIAL BLOOD SPECIMENOrdering Facility: [facility] Address: [address] [place] [address] Performed By: #### A LLBG ####[facility] LABCLIA [id number] [place] [address] [place] CO2 adjusted to patient's actual temperature (Bld) [Partial pressure] 46 mmHg Normal 36-46 [facility] Comment on above: Order Comment: Speci men Type: ARTERIAL BLOOD SPECIMENOrdering Facility: [facility] Address: [address] [place] [address] Performed By: #### A LLBG ####[facility] LABCLIA [id number] [place] [address] [place] Glucose [Mass/Vol] 127 mg/dL High 60-105 [facility] Comment on above: Order Comment: Speci men Type: ARTERIAL BLOOD SPECIMENOrdering Facility: [facility] Address: [address] [place] [address] Performed By: #### A LLBG ####[facility] LABCLIA [id number] [place] [address] [place] HCO3 (Bld) [Moles/Vol] 25 mmol/L Normal 22-26 [facility] Comment on above: Order Comment: Speci men Type: ARTERIAL BLOOD SPECIMENOrdering Facility: [facility] Address: [address] [place] [address] Performed By: #### A LLBG ####[facility] LABCLIA [id number] [place] [address] [place] Hematocrit (Bld) [Volume fraction] 36.5 % Normal 36.0-46.0 [facility] Comment on above: Order Comment: Speci men Type: ARTERIAL BLOOD SPECIMENOrdering Facility: [facility] Address: [address] [place] [address] Performed By: #### A LLBG ####[facility] LABIA [id number] [place] [address] [place] Hemoglobin (Bld) [Mass/Vol] 11.9 g/dL Normal 11.5-15.5 [facility] Comment on above: Order Comment: Speci men Type: ARTERIAL BLOOD SPECIMENOrdering Facility: [facility] Address: [address] [place] [address] Performed By: #### A LLBG ####[facility] LABIA [id number] [place] [address] [place] Lactate [Moles/Vol] 2.1 mmol/L Normal 0.5-2.2 [facility] Comment on above: Order Comment: Speci men Type: ARTERIAL BLOOD SPECIMENOrdering Facility: [facility] Address: [address] [place] [address] Performed By: #### A LLBG ####[facility] LABIA [id number] [place] [address] [place] Methemoglobin (Bld) [Mass fraction] 0.5 % Normal 0.0-1.5 [facility] Comment on above: Order Comment: Speci men Type: ARTERIAL BLOOD SPECIMENOrdering Facility: [facility] Address: [address] [place], [place] [address] Performed By: #### A LLBG ####[facility] LABCLIA [id number] [place] [address] [place] Oxygen (Bld) [Partial pressure] 349 mm Hg High 85-95 [facility] Comment on above: Order Comment: Speci men Type: ARTERIAL BLOOD SPECIMENOrdering Facility: [facility] Address: [address] [place] [address] Performed By: #### A LLBG ####[facility] LABCLIA [id number] [place] [address] [place] Oxygen adjusted to patient's actual temperature (Bld) [Partial pressure] 349 mmHg High 85-95 [facility] Comment on above: Order Comment: Speci men Type: ARTERIAL BLOOD SPECIMENOrdering Facility: [facility] Address: [address] [place] [address] Performed By: #### A LLBG ####[facility] LABCLIA [id number] [place] [address] [place] Oxyhemoglobin (BldA) [Mass fraction] 99 % High 95-98 [facility] Comment on above: Order Comment: Speci men Type: ARTERIAL BLOOD SPECIMENOrdering Facility: [facility] Address: [address] [place] [address] Performed By: #### A LLBG ####[facility] LABCLIA [id number] [place] [address] [place] pH (Bld) 7.35 [pH] Normal 7.35-7.45 [facility] Comment on above: Order Comment: Speci men Type: ARTERIAL BLOOD SPECIMENOrdering Facility: [facility] Address: [address] [place] [address] Performed By: #### A LLBG ####[facility] LABCLIA [id number] [place] [address] [place] pH adjusted to patient's actual temperature (Bld) 7.35 Normal 7.35-7.45 [facility] Comment on above: Order Comment: Speci men Type: ARTERIAL BLOOD SPECIMENOrdering Facility: [facility] Address: [address] [place] [address] Performed By: #### A LLBG ####[facility] LABCLIA [id number] [place] [address] [place] Potassium [Moles/Vol] 3.8 mmol/L Normal 3.5-5.0 [facility] Comment on above: Order Comment: Speci men Type: ARTERIAL BLOOD SPECIMENOrdering Facility: [facility] Address: [address] [place] [address] Performed By: #### A LLBG ####[facility] LABCLIA [id number] [place] [address] [place] Sodium [Moles/Vol] 141 mmol/L Normal 136-144 [facility] Comment on above: Order Comment: Speci men Type: ARTERIAL BLOOD SPECIMENOrdering Facility: [facility] Address: [address] [place] [address] Performed By: #### A LLBG ####[facility] LABCLIA [id number] [place] [address] [place] CBC panel Auto (Bld)on 09-09 Erythrocyte distribution width (RBC) [Ratio] 15.5 % High 11.5-15.0 [facility] Comment on above: Order Comment: Speci men Type: BLOOD SPECIMENOrdering Facility: [facility] Address: [address] [place] [address] Performed By: #### 5 8410-2 ####[facility] LABCLIA [id number] [place] [address] [place] Hematocrit (Bld) [Volume fraction] 36.2 % Normal 36.0-46.0 [facility] Comment on above: Order Comment: Speci men Type: BLOOD SPECIMENOrdering Facility: [facility] Address: [address] [place] [address] Performed By: #### 5 8410-2 ####[facility] LABCLIA [id number] [place] [address] [place] Hemoglobin (Bld) [Mass/Vol] 11.8 g/dL Normal 11.5-15.5 [facility] Comment on above: Order Comment: Speci men Type: BLOOD SPECIMENOrdering Facility: [facility] Address: [address] [place] [address] Performed By: #### 5 8410-2 ####[facility] LABCLIA [id number] [place] [address] [place] MCH (RBC) [Entitic mass] 28.2 pg Normal 26.0-34.0 [facility] Comment on above: Order Comment: Speci men Type: BLOOD SPECIMENOrdering Facility: [facility] Address: [address] [place] [address] Performed By: #### 5 8410-2 ####[facility] LABIA [id number] [place] [address] [place] MCHC (RBC) [Mass/Vol] 32.6 g/dL Normal 30.5-36.0 [facility] Comment on above: Order Comment: Speci men Type: BLOOD SPECIMENOrdering Facility: [facility] Address: [address] [place] [address] Performed By: #### 5 8410-2 ####[facility] LABCLIA [id number] [place] [address] [place] MCV (RBC) [Entitic vol] 86.6 fL Normal 80.0-100.0 [facility] Comment on above: Order Comment: Speci men Type: BLOOD SPECIMENOrdering Facility: [facility] Address: [address] [place] [address] Performed By: #### 5 8410-2 ####[facility] LABCLIA [id number] [place] [address] [place] Nucleated RBC (Bld) [#/Vol] 10*3/uL Normal <0.01 [facility] Comment on above: Order Comment: Speci men Type: BLOOD SPECIMENOrdering Facility: [facility] Address: [address] [place] [address] Performed By: #### 5 8410-2 ####[facility] [id number] [place] [address] [place] Platelet mean volume (Bld) [Entitic vol] 9.9 fL Normal 9.0-12.7 [facility] Comment on above: Order Comment: Speci men Type: BLOOD SPECIMENOrdering Facility: [facility] Address: [address] [place] [address] Performed By: #### 5 8410-2 ####[facility] LABSPR[facility] [id number] [place] [address] [place] Platelets (Bld) [#/Vol] 196 10*3/uL Normal 150-400 [facility] Comment on above: Order Comment: Speci men Type: BLOOD SPECIMENOrdering Facility: [facility] Address: [address] [place] [address] Performed By: #### 5 8410-2 ####[facility] [id number] [place] [address] [place] RBC (Bld) [#/Vol] 4.18 10*6/uL Normal 3.90-5.20 [facility] Comment on above: Order Comment: Speci men Type: BLOOD SPECIMENOrdering Facility: [facility] Address: [address] [place] [address] Performed By: #### 5 8410-2 ####[facility] LABIA [id number] [place] [address] [place] WBC (Bld) [#/Vol] 20.82 10*3/uL High 3.70-11.00 [facility] Comment on above: Order Comment: Speci men Type: BLOOD SPECIMENOrdering Facility: [facility] Address: [address] [place] [address] Performed By: #### 5 8410-2 ####[facility] LABCLIA [id number] [place] [address] [place] ECG COMPLETEon 09-09-2024 ECG COMPLETE Normal [facility] Fibrinogen PPP-mCncon 2024 Fibrinogen Coag (PPP) [Mass/Vol] 330 mg/dL Normal 200-400 [facility] Comment on above: Order Comment: Speci men Type: BLOOD SPECIMENOrdering Facility: [facility] Address: [address] [place] [address] Performed By: #### 3 4528-0, 72503-0, 3255-7 ####[facility] LABCLIA [id number] [place] [address] [place] Gas and Carbon monoxide pane l (BldV)on 09-09-2024 BASE DEFICIT, VENOUS >-1 Normal -2-0 [facility] Comment on above: Order Comment: Speci men Type: VENOUS BLOOD SPECIMENOrdering Facility: [facility] Address: [address] [place] [address] Performed By: #### 2 4344-4 ####[facility] LABCLIA [id number] [place] [address] [place] Calcium.ionized (Bld) [Mass/Vol] 1.13 mmol/L Normal 1.08-1.30 [facility] Comment on above: Order Comment: Speci men Type: VENOUS BLOOD SPECIMENOrdering Facility: [facility] Address: [address] [place] [address] Performed By: #### 2 4344-4 ####[facility] LABCLIA [id number] [place] [address] [place] Calcium.ionized adjusted to pH 7.4 (BldA) [Moles/Vol] 1.11 mmol/L Normal 1.08-1.30 [facility] Comment on above: Order Comment: Speci men Type: VENOUS BLOOD SPECIMENOrdering Facility: [facility] Address: [address] [place] [address] Performed By: #### 2 4344-4 ####[facility] LABCLIA [id number] [place] [address] [place] Carboxyhemoglobin (BldV) [Mass fraction] 1.4 % Normal 0.0-2.0 [facility] Comment on above: Order Comment: Speci men Type: VENOUS BLOOD SPECIMENOrdering Facility: [facility] Address: [address] [place] [address] Result Comment: Carb oxyhemoglobin Reference Range for Smokers: 2.0-8.0% Performed By: #### 2 4344-4 ####[facility] LABCLIA [id number] [place] [address] [place] CO2 (BldV) [Partial pressure] 46 mm[Hg] Normal 42-55 [facility] Comment on above: Order Comment: Speci men Type: VENOUS BLOOD SPECIMENOrdering Facility: [facility] Address: [address] [place] [address] Performed By: #### 2 4344-4 ####[facility] LABCLIA [id number] [place] [address] [place] CO2 adjusted to patient's actual temperature (BldV) [Partial pressure] 46 mmHg Normal 42-55 [facility] Comment on above: Order Comment: Speci men Type: VENOUS BLOOD SPECIMENOrdering Facility: [facility] Address: [address] [place] [address] Performed By: #### 2 4344-4 ####[facility] LABCLIA [id number] [place] [address] [place] Glucose [Mass/Vol] 190 mg/dL High 60-105 [facility] Comment on above: Order Comment: Speci men Type: VENOUS BLOOD SPECIMENOrdering Facility: [facility] Address: [address] [place] [address] Performed By: #### 2 4344-4 ####[facility] LABCLIA [id number] [address] [address] [place] HCO3 (Bld) [Moles/Vol] 25 mmol/L Normal 24-28 [facility] Comment on above: Order Comment: Speci men Type: VENOUS BLOOD SPECIMENOrdering Facility: [facility] Address: [address] [place] [address] Performed By: #### 2 4344-4 ####[facility] LABCLIA [id number] [place] [address] [place] Hematocrit (Bld) [Volume fraction] 27.3 % Low 36.0-46.0 [facility] Comment on above: Order Comment: Speci men Type: VENOUS BLOOD SPECIMENOrdering Facility: [facility] Address: [address] [place] [address] Performed By: #### 2 4344-4 ####[facility] LABCLIA [id number] [place] [address] [place] Hemoglobin (Bld) [Mass/Vol] 8.8 g/dL Low 11.5-15.5 [facility] Comment on above: Order Comment: Speci men Type: VENOUS BLOOD SPECIMENOrdering Facility: [facility] Address: [address] [place] [address] Performed By: #### 2 4344-4 ####[facility] LABCLIA [id number] [place] [address] [place] Lactate [Moles/Vol] 2.2 mmol/L Normal 0.5-2.2 [facility] Comment on above: Order Comment: Speci men Type: VENOUS BLOOD SPECIMENOrdering Facility: [facility] Address: [address] [place] [address] Performed By: #### 2 4344-4 ####[facility] LABCLIA [id number] [address] [address] [place] Methemoglobin (Bld) [Mass fraction] 0.9 % Normal 0.0-1.5 [facility] Comment on above: Order Comment: Speci men Type: VENOUS BLOOD SPECIMENOrdering Facility: [facility] Address: [address] [place] [address] Performed By: #### 2 4344-4 ####[facility] LABCLIA [id number] [place] [address] [place] Oxygen (BldV) [Partial pressure] 52 mm[Hg] High 35-45 [facility] Comment on above: Order Comment: Speci men Type: VENOUS BLOOD SPECIMENOrdering Facility: [facility] Address: [address] [place] [address] Performed By: #### 2 4344-4 ####[facility] LABCLIA [id number] [place] [address] [place] Oxygen adjusted to patient's actual temperature (BldV) [Partial pressure] 52 mmHg High 35-45 [facility] Comment on above: Order Comment: Speci men Type: VENOUS BLOOD SPECIMENOrdering Facility: [facility] Address: [address] [place], [place] [address] Performed By: #### 2 4344-4 ####[facility] LABCLIA [id number] [address] [address] [place] Oxygen saturation in Venous blood 82 % Normal 60-85 [facility] Comment on above: Order Comment: Speci men Type: VENOUS BLOOD SPECIMENOrdering Facility: [facility] Address: [address] [place], [place] [address] Performed By: #### 2 4344-4 ####[facility] LABCLIA [id number] [place] [id number] [place] Oxyhemoglobin (BldV) [Mass fraction] 80 % Normal 60-85 [facility] Comment on above: Order Comment: Speci men Type: VENOUS BLOOD SPECIMENOrdering Facility: [facility] Address: [address] [place] [address] Performed By: #### 2 4344-4 ####[facility] LABIA [id number] [place] [address] [place] pH (BldV) 7.36 [pH] Normal 7.32-7.42 [facility] Comment on above: Order Comment: Speci men Type: VENOUS BLOOD SPECIMENOrdering Facility: [facility] Address: [address] [place] [address] Performed By: #### 2 4344-4 ####[facility] LABIA [id number] [place] [address] [place] pH adjusted to patient's actual temperature (BldV) 7.36 Normal 7.32-7.42 [facility] Comment on above: Order Comment: Speci men Type: VENOUS BLOOD SPECIMENOrdering Facility: [facility] Address: [address] [place] [address] Performed By: #### 2 4344-4 ####[facility] LABIA [id number] [place] [address] [place] Potassium [Moles/Vol] 4.7 mmol/L Normal 3.5-5.0 [facility] Comment on above: Order Comment: Speci men Type: VENOUS BLOOD SPECIMENOrdering Facility: [facility] Address: [address] [place] [address] Performed By: #### 2 4344-4 ####[facility] LABIA [id number] [place] [address] [place] Sodium [Moles/Vol] 138 mmol/L Normal 136-144 [facility] Comment on above: Order Comment: Speci men Type: VENOUS BLOOD SPECIMENOrdering Facility: [facility] Address: [address] [place] [address] Performed By: #### 2 4344-4 ####[facility] [id number] [place] [address] [place] INTRAOPERATIVE ECHO PREon INTRAOPERATIVE ECHO PRE Normal [facility] OPERATIVE NOon 09-09-2024 OPERATIVE NO Normal [facility] PT panel Coag (PPP)on 2024 INR Coag (PPP) [Relative time] 1.1 {INR} Normal 0.9-1.3 [facility] Comment on above: Order Comment: Speci men Type: BLOOD SPECIMENOrdering Facility: [facility] Address: [address] [place] [address] Result Comment: Ailyn min K Antagonist (VKA) Therapeutic Range: INR 2 to 3 (Target INR of 2.5)Note: For patients treated with VKA drugs, such as warfarin, the [employer] 2012 Guideline recommends a therapeutic INR range of 2 to 3 (target INR of 2.5). This recommendation includes high-risk patients with antiphospholipid syndrome with previous arterial or venous thromboembolism, current-generation mechanical or bioprosthetic aortic heart valve replacement.Note: Patients with mechanical aortic valve replacement and additional risk factors for thromboembolic events (atrial fibrillation, previous thromboembolism, LV dysfunction, hypercoagulable conditions) or an older generation mechanical AVR (i.e., ball in-Cage) or any mechanical MVR should have a INR therapeutic range of 2.5 to 3.5 (target INR of 3).Fahad GH, et al. Chest 2012, 141:7S-47SNishimura RA, et al. [facility] 2017, 70: 252-289 Performed By: #### 3 4528-0, 55338-0, 3255-7 ####[facility] [id number] [place] [address] [place] PT Coag (PPP) [Time] 11.8 s Normal 9.7-13.0 [facility] Comment on above: Order Comment: Speci men Type: BLOOD SPECIMENOrdering Facility: [facility] Address: [address] [place] [address] Performed By: #### 3 4528-0, 13546-8, 3255-7 ####[facility] LABIA [id number] [address] [place] Pathology biopsy report Yossi (Tiss)on 09-09-2024 CASE REPORT Normal [facility] Comment on above: Order Comment: Speci men Type: TISSUE SPECIMENOrdering Facility: [facility] Address: [address] [place] [address] Result Comment: Surg ica Pathology Report Case: [id number] Provider: Janell Gonzáles MD Collected: 09/09/2024 08:50 AMOrdering Location: Admitting Received: 09/09/2024 12:04 PMPathologist: Trey Adrian MD, PhDSpecimen: Soft Tissue, Mass, Resection, Left Atrial Mass Performed By: #### 6 6121-5 ####[facility] LABIA [id number] [address] CLINICAL HISTORY Normal 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 Normal [facility] Comment on above: Order Comment: Speci men Type: TISSUE SPECIMENOrdering Facility: [facility] Address: [address] [place] [address] Performed By: #### 6 6121-5 ####[facility] LABIA [id number] [address] [place] FINAL DIAGNOSIS Normal [facility] Comment on above: Order Comment: Speci men Type: TISSUE SPECIMENOrdering Facility: [facility] Address: [address] [place] [address] Result Comment: A. L eft atrial mass, excision:- Myxoma. at 1333 EST Performed By: #### 6 6121-5 ####[facility] LABCLIA [id number] [address] OF [facility] FINAL PERFORMING LAB Normal [facility] Comment on above: Order Comment: Speci men Type: TISSUE SPECIMENOrdering Facility: [facility] Address: [address] [place] [address] Result Comment: Diag nostic interpretation performed at: [facility], [address] [place] [address] CLIA# [id number] Director: Juan Jacobo MD Performed By: #### 6 6121-5 ####[facility] LABCLIA [id number] [address] [place] GROSS DESCRIPTION Normal [facility] Comment on above: Order Comment: Speci men Type: TISSUE SPECIMENOrdering Facility: [facility] Address: [address] [place] [address] Result Comment: A. S oft Tissue, Mass, ResectionReceived in formalin designated left atrial mass is a smooth, oval, lobulated and gelatinous mass that measures 1.5 x 1.2 x 1.1 cm. Sectioning through the mass reveals hemorrhagic cut surfaces. The specimen is entirely submitted in 2 cassettes.WE September 10, 2024 9:47 AMGross examination performed at [facility], [address] [place] [address] Performed By: #### 6 6121-5 ####[facility] LABCLIA [id number] [place] [id number] [place] THROMBOGRAPH PANELon -24-2 025 Clot angle TEG (Bld) [Angle] 73.2 degrees Normal 47.0-74.0 [facility] Comment on above: Order Comment: Speci men Type: BLOOD SPECIMENOrdering Facility: [facility] Address: [address] [place] [address] Performed By: #### T EGPNP ####[facility] [id number] [address] Clot Lysis 30 Min post maximum clot amplitude TEG (Bld) [Length fraction] 0.0 % Normal 0.0-8.0 [facility] Comment on above: Order Comment: Speci men Type: BLOOD SPECIMENOrdering Facility: [facility] Address: [address] [place] [address] Performed By: #### T EGPNP ####[facility] [id number] [address] OF [facility] Clotting time TEG (Bld) 3.3 minutes Low 4.0-10.0 [facility] Comment on above: Order Comment: Speci men Type: BLOOD SPECIMENOrdering Facility: [facility] Address: [address] [place] [address] Performed By: #### T EGPNP ####[facility] [id number] [address] [place] Coagulation index TEG Qn (Bld) 2.7 Normal -4.6-3.2 [facility] Comment on above: Order Comment: Speci men Type: BLOOD SPECIMENOrdering Facility: [facility] Address: [address] [place] [address] Result Comment: This test was developed, and its performance characteristics determined by the [facility] Department of Pathology and Laboratory Medicine. It has not been cleared or approved by the FDA. The [facility] Department of Pathology and Laboratory Medicine is regulated under CLIA as qualified to perform high-complexity testing. This test is used for clinical purposes. It should not be regarded as investigational or for research. Performed By: #### T EGPNP ####[facility] LABCLIA [id number] [place] [address] [place] Maximum clot firmness TEG (Bld) [Length] 62.2 mm Normal 51.0-75.0 [facility] Comment on above: Order Comment: Speci men Type: BLOOD SPECIMENOrdering Facility: [facility] Address: [address] [place] [address] Performed By: #### T EGPNP ####[facility] LABCLIA [id number] [place] [address] [place] Thromboelastography after addtion of heparinase panel (Bld) Normal [facility] Comment on above: Order Comment: Speci men Type: BLOOD SPECIMENOrdering Facility: [facility] Address: [address] [place] [address] Result Comment: A th romboelastograph (TEG) study was performed using citrate-anticoagulated whole blood.The R value, a measure of coagulation function, is short. This indicates coagulation hyperfunction. This could be seen with high levels of coagulation factors, coagulation activation, or inadequate anticoagulation. The angle, a measure of fibrinogen function, is within normal range. This is indicative of normal fibrinogen concentration or function. The Maximal Amplitude (MA), a measure of platelet function, is within the normal range. The Ly30, a measure of fibrinolysis, is normal. This is indicative of normal fibrinolytic function. The coagulation index (CI), a measure of hemostasis function, is within the normal range. The CI is a calculated parameter based on the other TEG results.Viscoelastic testing is not intended for the monitoring of anticoagulation or antiplatelet medications or the diagnosis and/or management of platelet disorders and/or coagulopathies but may be useful for guiding blood product utilization in emergency and urgent (OR) circumstances when routine coagulation and cell blood counts are not available in a timely manner. Performed By: #### T EGPNP ####[facility] LABCLIA [id number] [place] [address] [place] XR CHEST 1V FRONTAL PORTon 0 09-09-2024 XR CHEST 1V FRONTAL PORT Normal [facility] aPTT PPPon 09-09-2024 aPTT Coag (PPP) [Time] 27.3 s Normal 23.0-32.4 [facility] Comment on above: Order Comment: Speci men Type: BLOOD SPECIMENOrdering Facility: [facility] Address: [address] [place] [address] Performed By: #### 3 4528-0, 77316-4, 3255-7 ####[facility] LABCLIA [id number] [address] [address] [place] Telemedicineon 08-29-2024 Telemedicine Normal [facility] CNCNPATEDon 08-27-2024 CNCNPATED Normal [facility] CNOVon 08-27-2024 CNOV Normal [facility] STAPHYLOCOCCUS AUREUS AND MR SA SCREEN, PCR, NASALon 08-27-2024 S. aureus and MRSA panel KARLA+probe (Nose) Not detected Normal Not Detected [facility] Comment on above: Order Comment: Speci men Type: SWABOrdering Facility: [facility] Address: [address] [place] [address] Performed By: #### S APCR ####[facility] LABCLIA [id number] [place] [address] [place] Basic metabolic 2000 panelon 08-26-2024 Anion gap [Moles/Vol] 8 mmol/L Normal 8-15 [facility] Comment on above: Order Comment: Speci men Type: BLOOD SPECIMENOrdering Facility: [facility] Address: [address] [place] [address] Performed By: #### 2 4321-2 ####[facility] LABCLIA [id number] [address] [address] [place] Calcium [Mass/Vol] 9.1 mg/dL Normal 8.5-10.2 [facility] Comment on above: Order Comment: Speci men Type: BLOOD SPECIMENOrdering Facility: [facility] Address: [address] [place], [place] [address] Performed By: #### 2 4321-2 ####[facility] LABCLIA [id number] [place] [address] [place] Chloride [Moles/Vol] 105 mmol/L Normal 98-107 [facility] Comment on above: Order Comment: Speci men Type: BLOOD SPECIMENOrdering Facility: [facility] Address: [address] [place] [address] Performed By: #### 2 4321-2 ####[facility] LABCLIA [id number] [place] [address] [place] CO2 [Moles/Vol] 27 mmol/L Normal 22-30 [facility] Comment on above: Order Comment: Speci men Type: BLOOD SPECIMENOrdering Facility: [facility] Address: [address] [place] [address] Performed By: #### 2 4321-2 ####[facility] LABCLIA [id number] [place] [address] [place] Creatinine [Mass/Vol] 0.61 mg/dL Normal 0.58-0.96 [facility] Comment on above: Order Comment: Speci men Type: BLOOD SPECIMENOrdering Facility: [facility] Address: [address] [place] [address] Performed By: #### 2 4321-2 ####[facility] LABIA [id number] [address] [place] Creatinine and Glomerular filtration rate.predicted panel (S/P/Bld) 99 mL/min/1.73m??? Normal >=60 [facility] Comment on above: Order Comment: Speci men Type: BLOOD SPECIMENOrdering Facility: [facility] Address: [address] [place] [address] Result Comment: Lexie mated Glomerular Filtration Rate (eGFR) is calculated using the 2020 CKD-EPI creatinine equation. This equation utilizes serum creatinine, sex, and age as parameters. The creatinine assay has traceable calibration to isotope dilution-mass spectrometry. Refer to KDIGO guidelines for clinical interpretation. In patients with unstable renal function, e.g. those with acute kidney injury, the eGFR may not accurately reflect actual GFR. Performed By: #### 2 4321-2 ####[facility] LABCLIA [id number] [place] [address] [place] Glucose [Mass/Vol] 93 mg/dL Normal 74-99 [facility] Comment on above: Order Comment: Speci men Type: BLOOD SPECIMENOrdering Facility: [facility] Address: [address] [place] [address] Result Comment: The [place] Diabetes Association (ADA) provides guidance for cutoff values for fasting glucose and random glucose. The ADA defines fasting as no caloric intake for at least 8 hours. Fasting plasma glucose results between 100 to 125 mg/dL indicate increased risk for diabetes (prediabetes).Fasting plasma glucose results greater than or equal to 126 mg/dL meet the criteria for diagnosis of diabetes. In the absence of unequivocal hyperglycemia, results should be confirmed by repeat testing. In a patient with classic symptoms of hyperglycemia or hyperglycemic crisis, random plasma glucose results greater than or equal to 200 mg/dL meet the criteria for diagnosis of diabetes.Reference: Standards of Medical Care in Diabetes 2016, [place] [employer]. Diabetes Care. 2016.39(Suppl 1). Performed By: #### 2 4321-2 ####[facility] LABCLIA [id number] [place] [address] [place] Potassium [Moles/Vol] 3.8 mmol/L Normal 3.7-5.1 [facility] Comment on above: Order Comment: Speci men Type: BLOOD SPECIMENOrdering Facility: [facility] Address: [address] [place] [address] Performed By: #### 2 4321-2 ####[facility] LABCLIA [id number] [place] [id number] [place] Sodium [Moles/Vol] 140 mmol/L Normal 136-144 [facility] Comment on above: Order Comment: Speci men Type: BLOOD SPECIMENOrdering Facility: [facility] Address: [address] [place] [address] Performed By: #### 2 4321-2 ####[facility] LABCLIA [id number] [place] [address] [place] Urea nitrogen [Mass/Vol] 20 mg/dL Normal 7-21 [facility] Comment on above: Order Comment: Speci men Type: BLOOD SPECIMENOrdering Facility: [facility] Address: [address] [place] [address] Performed By: #### 2 4321-2 ####[facility] LABIA [id number] [place] [address] [place] CARD CATH DIAGNOSTICon 08-26 CARD C[facility] DIAGNOSTIC [facility] CBC W Auto Differential pane l (Bld)on 08-26-2024 Basophils (Bld) [#/Vol] 10*3/uL Normal <0.11 [facility] Comment on above: Order Comment: Speci men Type: BLOOD SPECIMENOrdering Facility: [facility] Address: [address] [place] [address] Performed By: #### 5 7021-8 ####[facility] LABIA [id number] [place] [address] [place] Basophils/100 WBC (Bld) 0.4 % Normal [facility] Comment on above: Order Comment: Speci men Type: BLOOD SPECIMENOrdering Facility: [facility] Address: [address] [place] [address] Performed By: #### 5 7021-8 ####[facility] LABIA [id number] [place] [address] [place] Differential cell count method Nom (Bld) Auto Normal [facility] Comment on above: Order Comment: Speci men Type: BLOOD SPECIMENOrdering Facility: [facility] Address: [address] [place] [address] Performed By: #### 5 7021-8 ####[facility] LABCLIA [id number] [place] [address] [place] Eosinophils (Bld) [#/Vol] 0.04 10*3/uL Normal <0.46 [facility] Comment on above: Order Comment: Speci men Type: BLOOD SPECIMENOrdering Facility: [facility] Address: [address] [place] [address] Performed By: #### 5 7021-8 ####[facility] LABCLIA [id number] [place] [address] [place] Eosinophils/100 WBC (Bld) 0.9 % Normal [facility] Comment on above: Order Comment: Speci men Type: BLOOD SPECIMENOrdering Facility: [facility] Address: [address] [place] [address] Performed By: #### 5 7021-8 ####[facility] LABIA [id number] [place] [address] [place] Erythrocyte distribution width (RBC) [Ratio] 15.1 % High 11.5-15.0 [facility] Comment on above: Order Comment: Speci men Type: BLOOD SPECIMENOrdering Facility: [facility] Address: [address] [place] [address] Performed By: #### 5 7021-8 ####[facility] LABIA [id number] [place] [address] [place] Hematocrit (Bld) [Volume fraction] 40.1 % Normal 36.0-46.0 [facility] Comment on above: Order Comment: Speci men Type: BLOOD SPECIMENOrdering Facility: [facility] Address: [address] [place] [address] Performed By: #### 5 7021-8 ####[facility] LABCLIA [id number] [place] [address] [place] Hemoglobin (Bld) [Mass/Vol] 12.4 g/dL Normal 11.5-15.5 [facility] Comment on above: Order Comment: Speci men Type: BLOOD SPECIMENOrdering Facility: [facility] Address: [address] [place] [address] Performed By: #### 5 7021-8 ####[facility] LABCLIA [id number] [place] [address] [place] Immature granulocytes (Bld) [#/Vol] 10*3/uL Normal <0.10 [facility] Comment on above: Order Comment: Speci men Type: BLOOD SPECIMENOrdering Facility: [facility] Address: [address] [place] [address] Performed By: #### 5 7021-8 ####[facility] LABCLIA [id number] [place] [address] [place] Immature granulocytes/100 WBC (Bld) 0.2 % Normal [facility] Comment on above: Order Comment: Speci men Type: BLOOD SPECIMENOrdering Facility: [facility] Address: [address] [place] [address] Performed By: #### 5 7021-8 ####[facility] LABCLIA [id number] [place] [address] [place] Lymphocytes (Bld) [#/Vol] 0.88 10*3/uL Low 1.00-4.00 [facility] Comment on above: Order Comment: Speci men Type: BLOOD SPECIMENOrdering Facility: [facility] Address: [address] [place] [address] Performed By: #### 5 7021-8 ####[facility] LABCLIA [id number] [place] [address] [place] Lymphocytes/100 WBC (Bld) 18.8 % Normal [facility] Comment on above: Order Comment: Speci men Type: BLOOD SPECIMENOrdering Facility: [facility] Address: [address] [place] [address] Performed By: #### 5 7021-8 ####[facility]SPR[facility] [id number] [place] [address] [place] MCH (RBC) [Entitic mass] 27.6 pg Normal 26.0-34.0 [facility] Comment on above: Order Comment: Speci men Type: BLOOD SPECIMENOrdering Facility: [facility] Address: [address] [place] [address] Performed By: #### 5 7021-8 ####[facility] [id number] [place] [address] [place] MCHC (RBC) [Mass/Vol] 30.9 g/dL Normal 30.5-36.0 [facility] Comment on above: Order Comment: Speci men Type: BLOOD SPECIMENOrdering Facility: [facility] Address: [address] [place] [address] Performed By: #### 5 7021-8 ####[facility] [id number] [place] [address] [place] MCV (RBC) [Entitic vol] 89.1 fL Normal 80.0-100.0 [facility] Comment on above: Order Comment: Speci men Type: BLOOD SPECIMENOrdering Facility: [facility] Address: [address] [place] [address] Performed By: #### 5 7021-8 ####[facility] LABSPR[facility] [id number] [place] [address] [place] Monocytes (Bld) [#/Vol] 0.53 10*3/uL Normal <0.87 [facility] Comment on above: Order Comment: Speci men Type: BLOOD SPECIMENOrdering Facility: [facility] Address: [address] [place] [address] Performed By: #### 5 7021-8 ####[facility] LABSPR[facility] [id number] [place] [address] [place] Monocytes/100 WBC (Bld) 11.3 % Normal [facility] Comment on above: Order Comment: Speci men Type: BLOOD SPECIMENOrdering Facility: [facility] Address: [address] [place] [address] Performed By: #### 5 7021-8 ####[facility] LABCLIA [id number] [place] [address] [place] Neutrophils (Bld) [#/Vol] 3.21 10*3/uL Normal 1.45-7.50 [facility] Comment on above: Order Comment: Speci men Type: BLOOD SPECIMENOrdering Facility: [facility] Address: [address] [place] [address] Performed By: #### 5 7021-8 ####[facility] LABCLIA [id number] [place] [address] [place] Neutrophils/100 WBC (Bld) 68.4 % Normal [facility] Comment on above: Order Comment: Speci men Type: BLOOD SPECIMENOrdering Facility: [facility] Address: [address] [place] [address] Performed By: #### 5 7021-8 ####[facility] LABCLIA [id number] [place] [address] [place] Nucleated RBC (Bld) [#/Vol] 10*3/uL Normal <0.01 [facility] Comment on above: Order Comment: Speci men Type: BLOOD SPECIMENOrdering Facility: [facility] Address: [address] [place] [address] Performed By: #### 5 7021-8 ####[facility] LABCLIA [id number] [place] [address] [place] Nucleated RBC/100 WBC (Bld) [Ratio] 0.0 /100 WBC Normal [facility] Comment on above: Order Comment: Speci men Type: BLOOD SPECIMENOrdering Facility: [facility] Address: [address] [place] [address] Performed By: #### 5 7021-8 ####[facility] LABCLIA [id number] [place] [address] [place] Platelet mean volume (Bld) [Entitic vol] 9.7 fL Normal 9.0-12.7 [facility] Comment on above: Order Comment: Speci men Type: BLOOD SPECIMENOrdering Facility: [facility] Address: [address] [place] [address] Performed By: #### 5 7021-8 ####[facility] LABCLIA [id number] [place] [address] [place] Platelets (Bld) [#/Vol] 253 10*3/uL Normal 150-400 [facility] Comment on above: Order Comment: Speci men Type: BLOOD SPECIMENOrdering Facility: [facility] Address: [address] [place] [address] Performed By: #### 5 7021-8 ####[facility] LABCLIA [id number] [place] [address] [place] RBC (Bld) [#/Vol] 4.50 10*6/uL Normal 3.90-5.20 [facility] Comment on above: Order Comment: Speci men Type: BLOOD SPECIMENOrdering Facility: [facility] Address: [address] [place] [address] Performed By: #### 5 7021-8 ####[facility] LABCLIA [id number] [place] [id number] [place] WBC (Bld) [#/Vol] 4.69 10*3/uL Normal 3.70-11.00 [facility] Comment on above: Order Comment: Speci men Type: BLOOD SPECIMENOrdering Facility: [facility] Address: [address] [place] [address] Performed By: #### 5 7021-8 ####[facility] LABCLIA [id number] [address] [place] CONFIRM BLOOD TYPEon 025 ABO A Normal [facility] Comment on above: Order Comment: Speci men Type: BLOOD SPECIMENOrdering Facility: [facility] Address: [address] [place] [address] Performed By: #### C ONABO ####[facility] BANKCLIA [id number] [place] [address] [place] Rh Nom (Bld) Negative Normal [facility] Comment on above: Order Comment: Speci men Type: BLOOD SPECIMENOrdering Facility: [facility] Address: [address] [place] [address] Performed By: #### C ONABO ####CC [facility] BLOOD BANKCLIA [id number] [place] [address] [place] Comprehensive metabolic 2000 panelon 08-26-2024 Albumin [Mass/Vol] 4.3 g/dL Normal 3.9-4.9 [facility] Comment on above: Order Comment: Speci men Type: BLOOD SPECIMENOrdering Facility: [facility] Address: [address] [place] [address] Performed By: #### 2 4323-8, 2532-0 ####[facility] LABCLIA [id number] [place] [address] [place] ALP [Catalytic activity/Vol] 65 U/L Normal 34-123 [facility] Comment on above: Order Comment: Speci men Type: BLOOD SPECIMENOrdering Facility: [facility] Address: [address] [place], [place] [address] Performed By: #### 2 4323-8, 2532-0 ####[facility] LABCLIA [id number] [place] [id number] [place] ALT [Catalytic activity/Vol] 10 U/L Normal 7-38 [facility] Comment on above: Order Comment: Speci men Type: BLOOD SPECIMENOrdering Facility: [facility] Address: [address] [place] [id number] Performed By: #### 2 4323-8, 2531-0 ####[facility] LABCLIA [id number] [place] [address] [place] Anion gap [Moles/Vol] 10 mmol/L Normal 8-15 [facility] Comment on above: Order Comment: Speci men Type: BLOOD SPECIMENOrdering Facility: [facility] Address: [address] [place] [address] Performed By: #### 2 432-8, 2531-0 ####[facility] LABCLIA [id number] [place] [address] [place] AST [Catalytic activity/Vol] 18 U/L Normal 13-35 [facility] Comment on above: Order Comment: Speci men Type: BLOOD SPECIMENOrdering Facility: [facility] Address: [address] [place] [address] Performed By: #### 2 4323-8, 2531-0 ####[facility] LABCLIA [id number] [place] [address] [place] Bilirubin [Mass/Vol] 0.3 mg/dL Normal 0.2-1.3 [facility] Comment on above: Order Comment: Speci men Type: BLOOD SPECIMENOrdering Facility: [facility] Address: [address] [place] [address] Performed By: #### 2 4323-8, 2531-0 ####[facility] LABCLIA [id number] [place] [address] [place] Calcium [Mass/Vol] 9.9 mg/dL Normal 8.5-10.2 [facility] Comment on above: Order Comment: Speci men Type: BLOOD SPECIMENOrdering Facility: [facility] Address: [address] [place] [address] Performed By: #### 2 4328, 2532-0 ####[facility] LABCLIA [id number] [address] [address] [place] Chloride [Moles/Vol] 106 mmol/L Normal 98-107 [facility] Comment on above: Order Comment: Speci men Type: BLOOD SPECIMENOrdering Facility: [facility] Address: [address] [place] [address] Performed By: #### 2 4328, 2531-0 ####[facility] LABCLIA [id number] [place] [address] [place] CO2 [Moles/Vol] 25 mmol/L Normal 22-30 [facility] Comment on above: Order Comment: Speci men Type: BLOOD SPECIMENOrdering Facility: [facility] Address: [address] [place] [address] Performed By: #### 2 4328, 0 ####[facility] LABCLIA [id number] [place] [address] [place] Creatinine [Mass/Vol] 0.65 mg/dL Normal 0.58-0.96 [facility] Comment on above: Order Comment: Speci men Type: BLOOD SPECIMENOrdering Facility: [facility] Address: [address] [place] [address] Performed By: #### 2 43238, 0 ####[facility] LABIA [id number] [place] [address] [place] Creatinine and Glomerular filtration rate.predicted panel (S/P/Bld) 98 mL/min/1.73m??? Normal >=60 [facility] Comment on above: Order Comment: Speci men Type: BLOOD SPECIMENOrdering Facility: [facility] Address: [address] [place] [address] Result Comment: Lexie mated Glomerular Filtration Rate (eGFR) is calculated using the 2020 CKD-EPI creatinine equation. This equation utilizes serum creatinine, sex, and age as parameters. The creatinine assay has traceable calibration to isotope dilution-mass spectrometry. Refer to KDIGO guidelines for clinical interpretation. In patients with unstable renal function, e.g. those with acute kidney injury, the eGFR may not accurately reflect actual GFR. Performed By: #### 2 4328, ####[facility] LABCLIA [id number] [address] [address] [place] Glucose [Mass/Vol] 96 mg/dL Normal 74-99 [facility] Comment on above: Order Comment: Speci men Type: BLOOD SPECIMENOrdering Facility: [facility] Address: [address] [place] [address] Result Comment: The [place] [employer] (ADA) provides guidance for cutoff values for fasting glucose and random glucose. The ADA defines fasting as no caloric intake for at least 8 hours. Fasting plasma glucose results between 100 to 125 mg/dL indicate increased risk for diabetes (prediabetes).Fasting plasma glucose results greater than or equal to 126 mg/dL meet the criteria for diagnosis of diabetes. In the absence of unequivocal hyperglycemia, results should be confirmed by repeat testing. In a patient with classic symptoms of hyperglycemia or hyperglycemic crisis, random plasma glucose results greater than or equal to 200 mg/dL meet the criteria for diagnosis of diabetes.Reference: Standards of Medical Care in Diabetes 2016, [place] [employer]. Diabetes Care. 2016.39(Suppl 1). Performed By: #### 2 4328, ####[facility] LABCLIA [id number] [address] [address] [place] Potassium [Moles/Vol] 4.7 mmol/L Normal 3.7-5.1 [facility] Comment on above: Order Comment: Milo men Type: BLOOD SPECIMENOrdering Facility: [facility] Address: [address] [place] [address] Performed By: #### 2 4328, ####[facility] LABCLIA [id number] [address] [address] [place] Protein [Mass/Vol] 7.4 g/dL Normal 6.3-8.0 [facility] Comment on above: Order Comment: Speci men Type: BLOOD SPECIMENOrdering Facility: [facility] Address: [address] [place] [id number] Performed By: #### 2 4323-8, 2531-0 ####[facility] LABCLIA [id number] [place] [id number] [place] Sodium [Moles/Vol] 141 mmol/L Normal 136-144 [facility] Comment on above: Order Comment: Speci men Type: BLOOD SPECIMENOrdering Facility: [facility] Address: [address] [place] [address] Performed By: #### 2 4323-8, 0 ####[facility] LABIA [id number] [place] [address] [place] Urea nitrogen [Mass/Vol] 21 mg/dL Normal 7-21 [facility] Comment on above: Order Comment: Speci men Type: BLOOD SPECIMENOrdering Facility: [facility] Address: [address] [place] [address] Performed By: #### 2 4323-8, 0 ####[facility] LABIA [id number] [place] [address] [place] ECG COMPLETEon 08-26-2024 ECG COMPLETE Normal [facility] LDH SerPl-cCncon 08-26-2024 LDH [Catalytic activity/Vol] 156 U/L Normal 135-214 [facility] Comment on above: Order Comment: Speci men Type: BLOOD SPECIMENOrdering Facility: [facility] Address: [address] [place] [address] Performed By: #### 2 4323-8, 0 ####[facility] LABCLIA [id number] [place] [id number] [place] PT panel Coag (PPP)on 2024 INR Coag (PPP) [Relative time] 1.0 {INR} Normal 0.9-1.3 [facility] Comment on above: Order Comment: Milo peters Type: BLOOD SPECIMENOrdering Facility: [facility] Address: [address] [place] [address] Result Comment: Ailyn min K Antagonist (VKA) Therapeutic Range: INR 2 to 3 (Target INR of 2.5)Note: For patients treated with VKA drugs, such as warfarin, the [place] [employer] 2012 Guideline recommends a therapeutic INR range of 2 to 3 (target INR of 2.5). This recommendation includes high-risk patients with antiphospholipid syndrome with previous arterial or venous thromboembolism, current-generation mechanical or bioprosthetic aortic heart valve replacement.Note: Patients with mechanical aortic valve replacement and additional risk factors for thromboembolic events (atrial fibrillation, previous thromboembolism, LV dysfunction, hypercoagulable conditions) or an older generation mechanical AVR (i.e., ball in-Cage) or any mechanical MVR should have a INR therapeutic range of 2.5 to 3.5 (target INR of 3).Fahad GH, et al. Chest 2012, 141:7S-47SNishimura RA, et al. [facility] 2017, 70: 252-289 Performed By: #### 3 4528-0, 89777-3 ####[facility] LABIA [id number] [place] [address] [place] PT Coag (PPP) [Time] 11.1 s Normal 9.7-13.0 [facility] Comment on above: Order Comment: Milo peters Type: BLOOD SPECIMENOrdering Facility: [facility] Address: [address] [place] [address] Performed By: #### 3 4528-0, 21698-0 ####[facility] LABIA [id number] [place] [address] [place] TYPE AND SCREEN,30 DAYon ABO A Normal [facility] Comment on above: Order Comment: Milo peters Type: BLOOD SPECIMENOrdering Facility: [facility] Address: [address] [place] [address] Performed By: #### T SCR30 ####CC [facility] BLOOD BANKCLIA [id number] [place] [address] [place] Rh Nom (Bld) Negative Normal [facility] Comment on above: Order Comment: Speci men Type: BLOOD SPECIMENOrdering Facility: [facility] Address: [address] [place] [address] Performed By: #### T SCR30 ####[facility] BLOOD BANKIA [id number] [place] [address] [place] URINALYSIS, DIPSTICK ONLYon 08-26-2024 Bilirubin Ql (U) Negative Normal Negative [facility] Comment on above: Order Comment: Speci men Type: URINE SPECIMENOrdering Facility: [facility] Address: [address] [place] [address] Performed By: #### U A ####[facility] LABCLIA [id number] [place] [address] [place] Clarity (Unsp spec) Clear Normal Clear [facility] Comment on above: Order Comment: Speci men Type: URINE SPECIMENOrdering Facility: [facility] Address: [address] [place] [address] Performed By: #### U A ####[facility] LABCLIA [id number] [place] [address] [place] Color (U) Yellow Normal Yellow [facility] Comment on above: Order Comment: Speci men Type: URINE SPECIMENOrdering Facility: [facility] Address: [address] [place] [address] Performed By: #### U A ####[facility] LABCLIA [id number] [place] [address] [place] Glucose Test strip (U) [Mass/Vol] Negative Normal Negative [facility] Comment on above: Order Comment: Speci men Type: URINE SPECIMENOrdering Facility: [facility] Address: [address] [place] [address] Performed By: #### U A ####[facility] LABCLIA [id number] [place] [address] [place] Hemoglobin Ql (U) Negative Normal Negative [facility] Comment on above: Order Comment: Speci men Type: URINE SPECIMENOrdering Facility: [facility] Address: [address] [place] [address] Performed By: #### U A ####[facility] LABCLIA [id number] [place] [address] [place] Ketones Ql (U) Negative Normal Negative [facility] Comment on above: Order Comment: Speci men Type: URINE SPECIMENOrdering Facility: [facility] Address: [address] [place] [address] Performed By: #### U A ####[facility] LABCLIA [id number] [place] [address] [place] Leukocyte esterase Test strip Ql (U) Negative Normal Negative [facility] Comment on above: Order Comment: Speci men Type: URINE SPECIMENOrdering Facility: [facility] Address: [address] [place] [address] Performed By: #### U A ####[facility] LABCLIA [id number] [place] [address] [place] Nitrite Ql (U) Negative Normal Negative [facility] Comment on above: Order Comment: Speci men Type: URINE SPECIMENOrdering Facility: [facility] Address: [address] [place] [address] Performed By: #### U A ####[facility] LABCLIA [id number] [place] [address] [place] pH (U) 7.5 [pH] Normal <8.5 [facility] Comment on above: Order Comment: Speci men Type: URINE SPECIMENOrdering Facility: [facility] Address: [address] [place] [address] Performed By: #### U A ####[facility] LABIA [id number] [place] [address] [place] Protein (U) [Mass/Vol] Negative Normal Negative [facility] Comment on above: Order Comment: Speci men Type: URINE SPECIMENOrdering Facility: [facility] Address: [address] [place] [address] Performed By: #### U A ####[facility] LABIA [id number] [place] [address] [place] Specific gravity (U) [Rel density] 1.017 Normal 1.005-1.03 0 [facility] Comment on above: Order Comment: Speci men Type: URINE SPECIMENOrdering Facility: [facility] Address: [address] [place] [address] Performed By: #### U A ####[facility] [id number] [place] [address] [place] Urobilinogen Ql (U) 0.2 EU/dL Normal 0.2-1.0 EU/dL [facility] Comment on above: Order Comment: Speci men Type: URINE SPECIMENOrdering Facility: [facility] Address: [address] [place] [address] Performed By: #### U A ####[facility] [id number] [place] [address] [place] XR CHEST 2V FRONTAL/LATon XR CHEST 2V FRONTAL/LAT Normal [facility] XR Chest PA and Lateralon IMPRESSION: See result Assistant Cook: CALLI Transcribe Date/Time: Aug 26 2024 2:44P Dictated by : SIVA NARANJO MD This examination was interpreted and the report reviewed and electronically signed by: SIVA NARANJO MD on Aug 26 2024 2:48PM [facility] DIVISION OF RADIOLOGY * * *Final Report* * * DATE OF EXAM: Aug 26 2024 10:03AM JIX 5291 - XR CHEST 2V FRONTAL/LAT / PROCEDURE REASON: multiple diagnoses * * * * Physician Interpretation * * * * EXAMINATION: CHEST RADIOGRAPH (2 VIEW FRONTAL & LATERAL) CLINICAL HISTORY: Pre-operative cardiovascular examination 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 Lungs and pleura: Lower zones diffuse bronchiectasis with extensive mucous plugging, superimposed infection is possible in the right clinical setting. No sizable effusion Cardiomediastinal silhouette: Normal cardiac silhouette size Bones and soft tissues: Mild scoliosis. DIVISION OF RADIOLOGY Provider, [facility] - 08/26/2024 * * *Final Report* * * DATE OF EXAM: Aug 26 2024 10:03AM JIX 5291 - XR CHEST 2V FRONTAL/LAT / PROCEDURE REASON: multiple diagnoses * * * * Physician Interpretation * * * * EXAMINATION: CHEST RADIOGRAPH (2 VIEW FRONTAL & LATERAL) CLINICAL HISTORY: Pre-operative cardiovascular examination 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 Lungs and pleura: Lower zones diffuse bronchiectasis with extensive mucous plugging, superimposed infection is possible in the right clinical setting. No sizable effusion Cardiomediastinal silhouette: Normal cardiac silhouette size Bones and soft tissues: Mild scoliosis. IMPRESSION IMPRESSION: See result Assistant Cook: PSCB Transcribe Date/Time: Aug 26 2024 2:44P Dictated by : SIVA NARANJO MD This examination was interpreted and the report reviewed and electronically signed by: SIVA NARANJO MD on Aug 26 2024 2:48PM EST [facility] Radiology Study observation (narrative) [facility] XR Chest PA and LateralOrder ed By: [facility] Provider on 08-26-2024 [facility] aPTT PPPon 08-26-2024 aPTT Coag (PPP) [Time] 28.8 s Normal 23.0-32.4 [facility] Comment on above: Order Comment: Speci men Type: BLOOD SPECIMENOrdering Facility: [facility] Address: [address] [place] [address] Performed By: #### 3 4528-0, 80739-7 ####[facility] LABCLIA [id number] [address] [id number] [address] [place] CNPNon 08-25-2024 CNPN Normal [facility] CBC w/ Auto Diffon Basophils/100 WBC (Bld) 0.6 % Normal 0.0-2.0 [facility] Comment on above: Performed By: #### 2 [id number] #### [facility] [address] [place] [address] Basophils/Leukocytes Auto (Bld) [Pure # fraction] 0.0 E9/L Normal 0.0-0.2 [facility] Comment on above: Performed By: #### 2 [id number] #### [facility] [address] [place] [address] Eosinophils (Bld) [#/Vol] 0.1 E9/L Normal 0.0-0.5 [facility] Comment on above: Performed By: #### 2 [id number] #### [facility] [address] [place] [address] Eosinophils/100 WBC (Bld) 1.2 % Normal 0.0-8.0 [facility] Comment on above: Performed By: #### 2 [id number] #### [facility] [address] [place] [address] Erythrocyte distribution width (RBC) [Ratio] 16.2 % High 10.9-14.2 [facility] Comment on above: Performed By: #### 2 114362 #### [facility] [address] [place] [address] Hematocrit (Bld) [Volume fraction] 38.6 % Normal 34.0-46.0 [facility] Comment on above: Performed By: #### 2 [id number] #### [facility] [address] [place] [address] Hemoglobin (Bld) [Mass/Vol] 12.7 g/dL Normal 12.0-16.0 [facility] Comment on above: Performed By: #### 2 [id number] #### [facility] [address] [place] [address] Lymphocytes (Bld) [#/Vol] 1.0 E9/L Normal 1.0-4.0 [facility] Comment on above: Performed By: #### 2 267077 #### [facility] [address] [place] [address] Lymphocytes/100 WBC (Bld) 17.0 % Normal 14.0-50.0 [facility] Comment on above: Performed By: #### 2 700012 #### [facility] [address] [place] [address] MCH (RBC) [Entitic mass] 28.6 pg Normal 27.0-34.0 [facility] Comment on above: Performed By: #### 2 420436 #### [facility] [address] [place] [address] MCHC (RBC) [Mass/Vol] 33.0 g/dL Normal 31.4-36.0 [facility] Comment on above: Performed By: #### 2 667496 #### [facility] [address] [place] [address] MCV (RBC) [Entitic vol] 86.5 fL Normal 80.0-100.0 [facility] Comment on above: Performed By: #### 2 825390 #### [facility] [address] [place] [address] Monocytes (Bld) [#/Vol] 0.8 E9/L Normal 0.2-1.0 [facility] Comment on above: Performed By: #### 2 421214 #### [facility] [address] [place] [address] Neutrophils (Bld) [#/Vol] 4.2 E9/L Normal 2.0-7.5 [facility] Comment on above: Performed By: #### 2 121202 #### [facility] [address] [place] [address] Neutrophils/100 WBC (Bld) 67.9 % Normal 36.0-75.0 [facility] Comment on above: Performed By: #### 2 434356 #### [facility] [address] [place] [address] Platelet mean volume (Bld) [Entitic vol] 7.8 fL Normal 6.4-10.8 [facility] Comment on above: Performed By: #### 2 874135 #### [facility] [address] [place] [address] Platelets (Bld) [#/Vol] 278.0 E9/L Normal 150.0-500. 0 [facility] Comment on above: Performed By: #### 2 739332 #### [facility] [address] [place] [address] RBC (Bld) [#/Vol] 4.5 E12/L Normal 4.3-5.9 [facility] Comment on above: Performed By: #### 2 064677 #### [facility] [address] [place] [address] WBC corrected for nucl RBC Auto (Bld) [#/Vol] 6.2 E9/L Normal 4.0-11.0 [facility] Comment on above: Performed By: #### 2 478820 #### [facility] [address] [place] [address] CHEMISTRYOrdered By: SYSTEM SYSTEM on 08-15-2024 Albumin [Mass/Vol] 4.3 g/dL Normal 3.3 - 5.0 gm/dL [facility] Albumin/Globulin [Mass ratio] 1.1 {ratio} Normal 1.1 - 2.2 [facility] ALP [Catalytic activity/Vol] 50 [iU]/d Normal 21 - 98 Int._Unit/ L [facility] ALT No additional P-5'-P [Catalytic activity/Vol] 12 [iU]/d Normal 6 - 46 Int._Unit/ L [facility] Anion gap [Moles/Vol] 11 mmol/L Normal 6 - 16 mEq/L [facility] AST [Catalytic activity/Vol] 17 [iU]/d Normal 5 - 43 Int._Unit/ L [facility] Bilirubin [Mass/Vol] 0.4 mg/dL Normal 0.0 - 1 .1 mg/dL [facility] Calcium [Mass/Vol] 10.0 mg/dL Normal 8.9 - 11. 1 mg/dL [facility] Chloride [Moles/Vol] 104 mmol/L Normal 101 - 1 11 mmol/L [facility] CO2 [Moles/Vol] 29 mmol/L Normal 21 - 31 mmol/L [facility] Creatinine [Mass/Vol] 0.6 mg/dL Normal 0.5 - 1.3 mg/dL [facility] eGFR 99 mL/min/1.73 m2 Normal >=59mL/min /1.73 m2 [facility] Globulin (S) [Mass/Vol] 3.9 g/dL Normal 1.4 - 4.0 gm/dL [facility] Glucose [Mass/Vol] 82 mg/dL Normal 55 - 199 mg/dL [facility] Potassium [Moles/Vol] 4.6 mmol/L Normal 3.5 - 5.3 mmol/L [facility] Protein [Mass/Vol] 8.2 g/dL High 6.0 - 7.8 gm/dL [facility] Sodium [Moles/Vol] 139 mmol/L Normal 135 - 145 mmol/L [facility] Urea nitrogen [Mass/Vol] 21 mg/dL Normal 5 - 21 mg/dL [facility] Urea nitrogen/Creatinine [Mass ratio] 35 mg/mg High 10 - 20 [facility] CMPon 08-15-2024 Albumin [Mass/Vol] 4.3 g/dL Normal 3.3-5.0 [facility] Comment on above: Performed By: #### 2 [id number] #### [facility] [address] [place] [address] Albumin/Globulin (S) [Mass conc ratio] 1.1 Normal 1.1-2.2 [facility] Comment on above: Performed By: #### 2 916324 #### [facility] [address] [place] [address] ALP [Catalytic activity/Vol] 50 Int._Unit/L Normal 21-98 [facility] Comment on above: Performed By: #### 2 126305 #### [facility] [address] [place] [address] ALT No additional P-5'-P [Catalytic activity/Vol] 12 Int._Unit/L Normal 6-46 [facility] Comment on above: Performed By: #### 2 927013 #### [facility] [address] [place] [address] Anion gap [Moles/Vol] 11 mmol/L Normal 6-16 [facility] Comment on above: Performed By: #### 2 514645 #### [facility] [address] [place] [address] AST [Catalytic activity/Vol] 17 Int._Unit/L Normal 5-43 [facility] Comment on above: Performed By: #### 2 041154 #### [facility] [address] [place] [address] Bilirubin [Mass/Vol] 0.4 mg/dL Normal 0.0-1.1 [facility] Comment on above: Performed By: #### 2 657733 #### [facility] [address] [place] [address] Calcium [Mass/Vol] 10.0 mg/dL Normal 8.9-11.1 [facility] Comment on above: Performed By: #### 2 603514 #### [facility] [address] [place] [address] Chloride [Moles/Vol] 104 mmol/L Normal 101-111 [facility] Comment on above: Performed By: #### 2 545939 #### [facility] [address] [place] [address] CO2 [Moles/Vol] 29 mmol/L Normal 21-31 [facility] Comment on above: Performed By: #### 2 742952 #### [facility] [address] [place] [address] Creatinine [Mass/Vol] 0.6 mg/dL Normal 0.5-1.3 [facility] Comment on above: Performed By: #### 2 105010 #### [facility] [address] [place] [address] Globulin (S) [Mass/Vol] 3.9 g/dL Normal 1.4-4.0 [facility] Comment on above: Performed By: #### 2 335073 #### [facility] [address] [place] [address] Glucose [Mass/Vol] 82 mg/dL Normal 55-199 [facility] Comment on above: Performed By: #### 2 591346 #### [facility] [address] [place] [address] Potassium [Moles/Vol] 4.6 mmol/L Normal 3.5-5.3 [facility] Comment on above: Performed By: #### 2 399531 #### [facility] [address] [place] [address] Protein [Mass/Vol] 8.2 g/dL High 6.0-7.8 [facility] Comment on above: Performed By: #### 2 849073 #### [facility] [address] [place] [address] Sodium [Moles/Vol] 139 mmol/L Normal 135-145 [facility] Comment on above: Performed By: #### 2 019108 #### [facility] [address] [place] [address] Urea nitrogen [Mass/Vol] 21 mg/dL Normal 5-21 [facility] Comment on above: Performed By: #### 2 916210 #### [facility] [address] [place] [address] Urea nitrogen/Creatinine [Mass ratio] 35 No Units High 10-20 [facility] Comment on above: Performed By: #### 2 905350 #### [facility] [address] [place] [address] CNPNon 01-30-2025 CNPN Normal [facility] HEMATOLOGYOrdered By: SYSTEM SYSTEM on 08-15-2024 Basophils/100 WBC (Bld) 0.6 % Normal 0.0 - 2.0 % [facility] Basophils/Leukocytes Auto (Bld) [Pure # fraction] 0.0 E9/L Normal 0.0 - 0.2 E9/L [facility] Eosinophils (Bld) [#/Vol] 0.1 E9/L Normal 0.0 - 0.5 E9/L [facility] Eosinophils/100 WBC (Bld) 1.2 % Normal 0.0 - 8.0 % [facility] Erythrocyte distribution width (RBC) [Ratio] 16.2 % High 10.9 - 14.2 % [facility] Hematocrit (Bld) [Volume fraction] 38.6 % Normal 34.0 - 46.0 % [facility] Hemoglobin (Bld) [Mass/Vol] 12.7 g/dL Normal 12.0 - 16.0 gm/dL [facility] Lymphocytes (Bld) [#/Vol] 1.0 E9/L Normal 1.0 - 4.0 E9/L [facility] Lymphocytes/100 WBC (Bld) 17.0 % Normal 14.0 - 50.0 % [facility] MCH (RBC) [Entitic mass] 28.6 pg Normal 27.0 - 34.0 pg [facility] MCHC (RBC) [Mass/Vol] 33.0 g/dL Normal 31.4 - 36.0 gm/dL [facility] MCV (RBC) [Entitic vol] 86.5 fL Normal 80.0 - 100.0 fL [facility] Monocytes (Bld) [#/Vol] 0.8 E9/L Normal 0.2 - 1.0 E9/L [facility] Monocytes/100 WBC (Bld) 13.3 % Normal 4.0 - 14.0 % [facility] Neutrophils (Bld) [#/Vol] 4.2 E9/L Normal 2.0 - 7.5 E9/L [facility] Neutrophils/100 WBC (Bld) 67.9 % Normal 36.0 - 75.0 % [facility] Platelet mean volume (Bld) [Entitic vol] 7.8 fL Normal 6.4 - 10.8 fL [facility] Platelets (Bld) [#/Vol] 278.0 E9/L Normal 150.0 - 500.0 E9/L [facility] RBC (Bld) [#/Vol] 4.5 E12/L Normal 4.3 - 5.9 E12/L [facility] WBC corrected for nucl RBC Auto (Bld) [#/Vol] 6.2 E9/L Normal 4.0 - 11.0 E9/L [facility] eGFRon 08-15-2024 eGFR 99 mL/min/1.73 m2 Normal >=59 [facility] Comment on above: Performed By: #### 1 [id number] #### [facility] [address] [place] [address] CNOVon 08-13-2024 CNOV Normal [facility] ANESon 08-06-2024 ANES Normal [facility] ANES Normal [facility] HPon 08-06-2024 HP Normal [facility] NON-HOSPITAL CARRIER CYTOLOGY - CELLULAR EXAMon 08-06-2024 LAB AP CASE REPORT Normal [facility] Comment on above: Result Comment: Non- gynecologic Cytology Case: [id number] Provider: Niya Blackwell MD Collected: 08/06/2024 1421Ordering Location: [facility] Main Operating Room Received: 08/07/2024 0841Pathologist: ADVID Lakepecimens: A) - Lymph Node Station 4L, 4L fna B) - Lymph Node Station 7, station 7 fna Performed By: #### L AB13 ####[facility] [place] [address] LAB AP CLINICAL INFORMATION Order Diagnoses Normal [facility] Comment on above: Result Comment: R59. 0 - Mediastinal adenopathy [ICD-10-CM]J47.9 - Bronchiectasis without complication (CMS/HCC) [ICD-10-CM] Performed By: #### L AB13 ####[facility] [place] [address] LAB AP GROSS DESCRIPTION Normal [facility] Comment on above: Result Comment: A. 2 air-dried slides, 2 alcohol-fixed slides, 30 mL CytoLyt with hazy, red fluid with clots.B. 1 air-dried slide, 1 alcohol-fixed slide, 30 mL CytoLyt with clear, light pink fluid with clots. Performed By: #### L AB13 ####[facility] ([facility])[address] [place] [address] LAB AP INTRAOPERATIVE CONSULTATION [facility] Comment on above: Result Comment: A. L ymph Node Station 4L.Rapid on-site evaluation was performed by Araceli Ayers MD.The material examined during rapid on-site evaluation was deemed adequate for diagnosis.Pass #1: AdequatePass #2: AdequatePass #3: DeferPass #4: Defer - cell blockB. Lymph Node Station 7.Rapid on-site evaluation was performed by Araceli Ayers MD.The material examined during rapid on-site evaluation was deemed adequate for diagnosis.Pass #1: AdequatePass #2: Defer - cell blockPass #3: Defer - culturePass #4: Defer - culture*Only select material is examined during the on-site evaluation. Final diagnosis is pending the review of all material submitted.* Performed By: #### L AB13 ####[facility] ([facility])[address] [place] [address] LAB AP MICROSCOPIC DESCRIPTION Normal [facility] Comment on above: Result Comment: A. S atisfactory for evaluation. Examination of the prepared smears and cell block reveals abundant lymphocytes, benign bronchial cells, inflammation and blood.B. Satisfactory for evaluation. Examination of the prepared smears and cell block reveals acute inflammation, scattered lymphocytes, benign bronchial cells, and blood. Performed By: #### L AB13 ####[facility] ([facility])[address] [place] [address] LAB AP REPORT FINAL DIAGNOSIS NARRATIVE [facility] Comment on above: Result Comment: A. L ymph node, station 4L, EBUS-guided fine needle aspiration: - Negative for metastatic malignancy. - Cellular evidence of a lymph node.B. Lymph node, station 7, EBUS-guided fine needle aspiration: - Negative for metastatic malignancy. - Cellular evidence of a lymph node. - Acute inflammation present. Performed By: #### L AB13 ####[facility] ([facility])[address] [place] [address] NURSNOTEon 08-06-2024 GALLO RN reviewed discharg e instructions with patient and at bedside. No questions or concerns expressed at this time. Normal [facility] POCT GLUCOSE METER UNSOLICIT ED RESULTSon 08-06-2024 Glucose [Mass/Vol] 87 mg/dL Normal 70-105 [facility] Comment on above: Order Comment: Waive d Testing in the ED is performed under the ED CLIA certificate #[id number]. Result Comment: [facility] Performed By: #### L [id number] ####[facility] ([facility])[address] [place] [address] TISSUE CULTUREon 08-06-2024 Bacteria identified Cx Nom (Unsp spec) Abnormal [facility] Comment on above: Result Comment: STRE PTOCOCCUS SALIVARIUS GROUPIsolated from Broth Culture Streptococcus salivarius groupSTREPTOCOCCUS MITIS GROUPIsolated from Broth Culture Streptococcus mitis group Performed By: #### L [id number] ####[facility] ([facility])[address] [place] [address] GRAM STAIN RESULT Normal [facility] Comment on above: Result Comment: Few Polymorphonuclear leukocytesNo organisms seen Performed By: #### L [id number] ####[facility] ([facility])[address] [place] [address] Follow-Upon 08-01-2024 Follow-Up Normal [facility] HPon 08-01-2024 HP Normal [facility] CNOVon 07-19-2024 CNOV Normal [facility] CNPNon 07-12-2024 CNPN Normal [facility] CNOVon 07-11-2024 CNOV Normal [facility] CREATININE BLDon 07-11-2024 Creatinine [Mass/Vol] 0.64 mg/dL Normal 0.58-0.96 [facility] Comment on above: Order Comment: Speci men Type: BLOOD SPECIMENOrdering Facility: [facility] Address: [address] [place] [address] Performed By: #### C RET1 ####[facility] LABCLIA [id number] [place] [address] [place] Creatinine and Glomerular filtration rate.predicted panel (S/P/Bld) 98 mL/min/1.73m??? Normal >=60 [facility] Comment on above: Order Comment: Speci men Type: BLOOD SPECIMENOrdering Facility: [facility] Address: [address] [place] [address] Result Comment: Lexie mated Glomerular Filtration Rate (eGFR) is calculated using the 2020 CKD-EPI creatinine equation. This equation utilizes serum creatinine, sex, and age as parameters. The creatinine assay has traceable calibration to isotope dilution-mass spectrometry. Refer to KDIGO guidelines for clinical interpretation. In patients with unstable renal function, e.g. those with acute kidney injury, the eGFR may not accurately reflect actual GFR. Performed By: #### C RET1 ####[facility] LABCLIA [id number] [place] [address] [place] CREATININE, BLOOD (POC)on Creatinine [Mass/Vol] 0.80 mg/dL 0.7 - 1.4 mg/dL [facility] eGFR (POCT) mL/min/1.7 3 m2 [facility] Location:Radiology [facility], [address] [place] [address] POINT OF CARE [facility] CTA CHEST (GATED) W IVCONon 07-11-2024 CTA CHEST (GATED) W IVCON Normal [facility] CTA Chest vessels W contrast Richa 07-11-2024 IMPRESSION: LEFT ATRIUM: There is a 1.5 x 1.2 x 1.4 cm high attenuation (HU 81-120) mass attached to the interatrial septum, most consistent with myxoma as was seen on outside transesophageal echocardiogram AORTA: Normal size thoracic aorta. No acute aortic pathology. no evidence of wall changes. AORTIC VALVE: trileaflet.Trivial leaflet calcification. CORONARY ANATOMY: normal origin of the coronary arteries. Mild calcified atherosclerotic changes of the coronary arteries. However, the current study is not optimized for coronary assessment. LUNGS: Again seen biapical scarring. Extensive bilateral bronchiectasis more prominent in the mid and lower lung lobes with bronchiolectasis with exuberant bronchial wall thickening and mucoid impaction with likely associated postobstructive atelectasis and these findings appear slightly progressed since prior CT in 2019. Outside CT March 24, 2024 images are not available for direct comparison Small calcified lung nodules. MEDIASTINUM: mediastinal and hilar lymphadenopathy, stable. Assistant Cook: PSCB Transcribe Date/Time: Jul 11 2024 3:32P Dictated by : ZO NORRIS MD This examination was interpreted and the report reviewed and electronically signed by: ZO NORRIS MD on Jul 11 2024 4:17PM [facility] DIVISION OF RADIOLOGY * * *Final Report* * * DATE OF EXAM: Jul 11 2024 10:25AM [facility]QC 0125 - CTA CHEST (GATED) W IVCON / PROCEDURE REASON: multiple diagnoses * * * * Physician Interpretation * * * * CTA Aorta chest Direct Image Comparison: 06/27/2019 HISTORY: 63 years old Female with h/o breast cancer status post lumpectomy and radiation, bronchiectasis with EVAN infection, multiple sclerosis, history of Covid 19, pulmonary embolism and recent diagnosis of left atrial mass. Evaluation for treatment planning. There is request to define thoracic and aortic anatomy TECHNIQUE: SCANNER: out-patient Siemens Definition Force Dual source [id number] scanner PROTOCOL: Prospectively triggered helical high-pitch acquisitions ( triggered Flash-mode ) was performed following the intravenous administration of contrast material. Scan Range: thoracic inlet to the diaphragm CT Dose-Length Product (DLP): 91 mGy*cm CT Dose Reduction Employed: Automated exposure control(AEC) and iterative recon CONTRAST: IV administration of 70 ml Omnipaque 350 Scan acquisition: uncomplicated Macro Version: [id number]_7 For optimization of anatomic evaluation, advanced 3-D off-line postprocessing was performed on a dedicated workstation by the interpreting physician. STUDY LIMITATIONS: None. RESULT: LINES, TUBES and DEVICES: None CHEST: Chest wall anatomy: unremarkable. Postsurgical changes with adri in the left breast Thyroid gland appears unremarkable LUNGS: Again seen biapical scarring. Extensive bilateral bronchiectasis more prominent in the mid and lower lung lobes with bronchiolectasis with exuberant bronchial wall thickening and mucoid impaction with likely associated postobstructive atelectasis and these findings appear slightly progressed since prior CT in 2019. Outside CT March 24, 2024 images are not available for direct comparison Small calcified lung nodules. MEDIASTINUM: mediastinal and hilar lymphadenopathy, stable. PERICARDIUM: trivial, likely physiologic amount of pericardial fluid CENTRAL PULMONARY ARTERY: normal dimensions and no obvious filling defects to suggest pulmonary embolism. Assessment is limited due to limited contrast enhancement. CARDIAC CHAMBERS: LEFT VENTRICLE: normal size. RIGHT VENTRICLE: normal size Left Atrium: prominent. There is a 1.5 x 1.2 x 1.4 cm high attenuation (HU 81-120) mass attached to the interatrial septum, most consistent with myxoma as was seen on outside transesophageal echocardiogram PHILIP: normal. Right Atrium: normal size CENTRAL VENOUS and PULMONARY VENOUS RETURN: normal. Coronary Sinus: normal size MITRAL VALVE: assessment is limited in the current study - mitral valve leaflet calcification. No annular calcification TRICUSPID and PULMONIC VALVE: appear unremarkable. CORONARY ANATOMY: normal origin of the coronary arteries. Mild calcified atherosclerotic changes of the coronary arteries. However, the current study is not optimized for coronary assessment. AORTIC VALVE: trileaflet.Trivial leaflet calcification. AORTA: Pathology: No acute aortic pathology. Intervention: None Complications: n/a Aortic Size: Normal size thoracic aorta. STJ: maintained. Wall Changes: no evidence of wall changes. Arch Branch Vessels: Patent, normal size proximal segments of the arch branch vessels, without evidence of wall changes. AORTIC DIMENSIONS: AORTIC ROOT: 3.7 cm measured [id number] mid ASCENDING THORACIC AORTA: 3.0 cm mid AORTIC ARCH: 2.5 cm mid DESCENDING THORACIC AORTA: 2.6 cm limited upper ABDOMEN: small cystic lesions of the liver BONES and SOFT TISSUES: degenerative changes of the thoracic spine. Promotion Specialist (topogram) images: No additional findings. DIVISION OF RADIOLOGY Provider, [facility] - 07/11/2024 * * *Final Report* * * DATE OF EXAM: Jul 11 2024 10:25AM JQC 0125 - CTA CHEST (GATED) W IVCON / PROCEDURE REASON: multiple diagnoses * * * * Physician Interpretation * * * * CTA Aorta chest Direct Image Comparison: 06/27/2019 HISTORY: 63 years old Female with h/o breast cancer status post lumpectomy and radiation, bronchiectasis with EVAN infection, multiple sclerosis, history of Covid 19, pulmonary embolism and recent diagnosis of left atrial mass. Evaluation for treatment planning. There is request to define thoracic and aortic anatomy TECHNIQUE: SCANNER: out-patient Siemens Definition Force Dual source [id number] scanner PROTOCOL: Prospectively triggered helical high-pitch acquisitions ( triggered Flash-mode ) was performed following the intravenous administration of contrast material. Scan Range: thoracic inlet to the diaphragm CT Dose-Length Product (DLP): 91 mGy*cm CT Dose Reduction Employed: Automated exposure control(AEC) and iterative recon CONTRAST: IV administration of 70 ml Omnipaque 350 Scan acquisition: uncomplicated Macro Version: [id number] For optimization of anatomic evaluation, advanced 3-D off-line postprocessing was performed on a dedicated workstation by the interpreting physician. STUDY LIMITATIONS: None. RESULT: LINES, TUBES and DEVICES: None CHEST: Chest wall anatomy: unremarkable. Postsurgical changes with adri in the left breast Thyroid gland appears unremarkable LUNGS: Again seen biapical scarring. Extensive bilateral bronchiectasis more prominent in the mid and lower lung lobes with bronchiolectasis with exuberant bronchial wall thickening and mucoid impaction with likely associated postobstructive atelectasis and these findings appear slightly progressed since prior CT in 2019. Outside CT March 24, 2024 images are not available for direct comparison Small calcified lung nodules. MEDIASTINUM: mediastinal and hilar lymphadenopathy, stable. PERICARDIUM: trivial, likely physiologic amount of pericardial fluid CENTRAL PULMONARY ARTERY: normal dimensions and no obvious filling defects to suggest pulmonary embolism. Assessment is limited due to limited contrast enhancement. CARDIAC CHAMBERS: LEFT VENTRICLE: normal size. RIGHT VENTRICLE: normal size Left Atrium: prominent. There is a 1.5 x 1.2 x 1.4 cm high attenuation (HU 81-120) mass attached to the interatrial septum, most consistent with myxoma as was seen on outside transesophageal echocardiogram PHILIP: normal. Right Atrium: normal size CENTRAL VENOUS and PULMONARY VENOUS RETURN: normal. Coronary Sinus: normal size MITRAL VALVE: assessment is limited in the current study - mitral valve leaflet calcification. No annular calcification TRICUSPID and PULMONIC VALVE: appear unremarkable. CORONARY ANATOMY: normal origin of the coronary arteries. Mild calcified atherosclerotic changes of the coronary arteries. However, the current study is not optimized for coronary assessment. AORTIC VALVE: trileaflet.Trivial leaflet calcification. AORTA: Pathology: No acute aortic pathology. Intervention: None Complications: n/a Aortic Size: Normal size thoracic aorta. STJ: maintained. Wall Changes: no evidence of wall changes. Arch Branch Vessels: Patent, normal size proximal segments of the arch branch vessels, without evidence of wall changes. AORTIC DIMENSIONS: AORTIC ROOT: 3.7 cm measured tpomg-hq-nsohr mid ASCENDING THORACIC AORTA: 3.0 cm mid AORTIC ARCH: 2.5 cm mid DESCENDING THORACIC AORTA: 2.6 cm limited upper ABDOMEN: small cystic lesions of the liver BONES and SOFT TISSUES: degenerative changes of the thoracic spine. Promotion Specialist (topogram) images: No additional findings. IMPRESSION IMPRESSION: LEFT ATRIUM: There is a 1.5 x 1.2 x 1.4 cm high attenuation (HU 81-120) mass attached to the interatrial septum, most consistent with myxoma as was seen on outside transesophageal echocardiogram AORTA: Normal size thoracic aorta. No acute aortic pathology. no evidence of wall changes. AORTIC VALVE: trileaflet.Trivial leaflet calcification. CORONARY ANATOMY: normal origin of the coronary arteries. Mild calcified atherosclerotic changes of the coronary arteries. However, the current study is not optimized for coronary assessment. LUNGS: Again seen biapical scarring. Extensive bilateral bronchiectasis more prominent in the mid and lower lung lobes with bronchiolectasis with exuberant bronchial wall thickening and mucoid impaction with likely associated postobstructive atelectasis and these findings appear slightly progressed since prior CT in 2019. Outside CT March 24, 2024 images are not available for direct comparison Small calcified lung nodules. MEDIASTINUM: mediastinal and hilar lymphadenopathy, stable. (more content not included)... [facility] CTA Chest vessels W contrast IVOrdered By: Ccf Provider on 07-11-2024 [facility] ECG COMPLETEon 07-11-2024 ECG COMPLETE Normal [facility] NM LUNG VENT / PERF VQon NM LUNG VENT / PERF VQ Normal [facility] NM Lung Ventilation and Perf usionon 07-11-2024 IMPRESSION: Low probability exam for pulmonary embolism. Assistant Cook: CALLI Transcribe Date/Time: Jul 11 2024 11:04A Dictated by : RALEIGH ARIAS MD This examination was interpreted and the report reviewed and electronically signed by: HANNA MALLORY MD on Jul 11 2024 11:17AM [facility] DIVISION OF RADIOLOGY * * *Final Report* * * DATE OF EXAM: Jul 11 2024 10:59AM N 0032 - NM LUNG VENT / PERF VQ / PROCEDURE REASON: multiple diagnoses * * * * Physician Interpretation * * * * EXAMINATION: PULMONARY VENTILATION/PERFUSION SCAN CLINICAL HISTORY: Post-operative / post-procedure assessment, symptomatic, H/O PE 02/2024. TECHNIQUE: 0.8 millicuries of Tc-99m DTPA aerosol was inhaled. 5.0 millicuries of Tc-99m MAA was administered IV. Static planar pulmonary ventilation and perfusion images obtained in anterior, posterior, lateral, and oblique projections. COMPARISON: No prior V/Q scan available CORRELATION: CTA chest same day RESULT: Exam Interpretation criteria: Modified PIOPED II Ventilation: Heterogeneous radiotracer distribution in both lungs with some central airway accumulation. Perfusion: No mismatched defects. DIVISION OF RADIOLOGY Provider, [facility] - 07/11/2024 * * *Final Report* * * DATE OF EXAM: Jul 11 2024 10:59AM N 0032 - NM LUNG VENT / PERF VQ / PROCEDURE REASON: multiple diagnoses * * * * Physician Interpretation * * * * EXAMINATION: PULMONARY VENTILATION/PERFUSION SCAN CLINICAL HISTORY: Post-operative / post-procedure assessment, symptomatic, H/O PE 02/2024. TECHNIQUE: 0.8 millicuries of Tc-99m DTPA aerosol was inhaled. 5.0 millicuries of Tc-99m MAA was administered IV. Static planar pulmonary ventilation and perfusion images obtained in anterior, posterior, lateral, and oblique projections. COMPARISON: No prior V/Q scan available CORRELATION: CTA chest same day RESULT: Exam Interpretation criteria: Modified PIOPED II Ventilation: Heterogeneous radiotracer distribution in both lungs with some central airway accumulation. Perfusion: No mismatched defects. IMPRESSION IMPRESSION: Low probability exam for pulmonary embolism. 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 Start of test and EOFE criteria met. The two acceptable DLCO measurements obtained were repeatable.//NF IMPRESSION: Spirometry indicates moderately severe obstruction. The diffusing capacity (uncorrected for hemoglobin) is reduced. The kCO (DLCO/VA) reflects a normal transfer/diffusion of CO from the alveolar regions to the blood. Clinical correlation recommended. Electronically Signed On 07-11-2024 12:41:53 EST by Juma Bergman MD ID: [id number] Name: EMELI KAUFMAN Race: White Ht: 63.62 in Wt: 131.40 lbs Age: 63 Gender: Female : 1960 Dx: Disorder of artery or arteriole_ Smoking Hx: Non-smoker Doctor: JANELL GONZÁLES Test Date: 07/11/2024 Site: Tech: Hardeep Hathaway PRE-BRONCH POST-BRONCH Pre LLN Pred ULN %Pred Post %Pred %Chg SPIROMETRY FVC (L) 2.07 2.01 2.80 3.62 73 FEV1 (L) 1.27 1.56 2.21 2.82 57 FEV1/FVC 0.61 0.67 0.79 0.89 77 PEF L/s (L/sec) 3.01 4.20 5.89 7.59 51 FEF50 (L/sec) 0.80 1.57 3.17 4.78 25 FIF50 (L/sec) 3.92 FEF50/FIF50 0.21 90-100 FIVC (L) 1.87 XUW69-72 (L/sec) 0.59 0.98 2.02 3.46 29 Time (sec) 6.95 FET PEF (sec) 0.13 JUSTINA (L) 0.05 Vol Extrap % (%) 2 LUNG DIFFUSION DLCOunc (ml/min/mmHg) 13.70 14.67 20.84 27.01 65 VA (L) 3.25 3.90 5.00 6.10 64 DLunc/VA (ml/min/mmHg/L) 4.22 3.06 4.37 5.69 96 BHT (sec) 11.20 IVC (L) 1.79 Comments: Current ATS/ERS acceptability and repeatability standards for spirometry met. Start of test and EOFE criteria met. The two acceptable DLCO measurements obtained were repeatable.//NF PULMONARY FUNCTION LAB [facility] Radiology Study observation (narrative) [facility] SPIROMETRY BASELINE ONLYon 1 09-11-2023 DLCO (ml/min/mmHg) 13.70 ml/min/mm H g [facility] DLCO LLN (ml/min/mmHg) 14.67 ml/min/mmH g [facility] DLCO PREDICTED (ml/min/mmHg) 20.84 ml/min/mmH g [facility] DLCO ULN (ml/min/mmHg) 27.01 ml/min/mmH g [facility] DLCO/VA (ml/min/mmHg/L) 4.22 ml/min/mmH g/L [facility] DLCO/VA PREDICTED (ml/min/mmHg/L) 4.37 ml/min/mmH g/L [facility] DLCOcor PREDICTED (ml/min/mmHg) 20.84 ml/min/mmH g [facility] ERV PREDICTED (L) 0.93 L/S [facility] FEF25% PRE (L/S) 2.63 L/S [facility] NNK48-87% LLN (L/S) 0.98 L/S [facility] SPU37-92% PRE (L/S) 0.59 L/S [facility] RIM39-15% PREDICTED (L/S) 2.02 L/S [facility] FEF75% LLN (L/S) 0.20 L/S [facility] FEF75% PRE (L/S0 0.27 L/S [facility] FEF75% PREDICTED (L/S) 0.53 L/S [facility] FEF75% ULN (L/S) 1.31 L/S [facility] FET PRE (S) 6.95 S [facility] FEV1 LLN (L) 1.56 L [facility] FEV1 PRE (L) 1.27 L [facility] FEV1 PREDICTED (L) 2.21 L [facility] FEV1 ULN (L) 2.82 L [facility] FEV1/FVC LLN (%) 67 % [facility] FEV1/FVC PRE (%) 61 % [facility] FEV1/FVC PREDICTED (%) 79 % [facility] FVC LLN (L) 2.01 L [facility] FVC PRE (L) 2.07 L [facility] FVC PREDICTED (L) 2.80 L [facility] FVC ULN (L) 3.62 L [facility] IC PREDICTED (L) 1.87 L/S [facility] PEF LLN (L/S) 4.20 L/S [facility] PEF PRE (L/S) 3.01 L/S [facility] PEF ULN (L/S) 7.59 L/S [facility] SVC LLN (L) 2.01 L/S [facility] SVC PREDICTED (L) 2.80 L/S [facility] SVC ULN (L) 3.62 L/S [facility] VA (L) 3.25 L [facility] VA PREDICTED (L) 5.00 L [facility] US CAROTID ARTERIES OBEY VAS LABon 07-11-2024 US CAROTID ARTERIES OBEY VAS LAB Normal [facility] CNPNon 06-04-2024 CNPN Normal [facility] Follow-Upon 05-30-2024 Follow-Up Normal [facility] Ambulatory Visit Summaryon 1 07-27-2023 Ambulatory Visit Summary Ambulatory Visit Summary EMELI KAUFMAN :1960 Visit Date:05/27/2024 Ambulatory Visit Instructions Your Diagnosis Breast cancer, left Encounter for follow-up surveillance of breast cancer Personal history of malignant neoplasm of breast Your Care Team Attending Physician - Aurora RICE, Lauro E. Primary Care Physician - Brianna Yanez MD [...] PM EDT With: Lauro Simon MD Where: [facility] General Surgery [address], [address] [place] [address]- Medications What How Much When Why Instructions [...] choosing us for your care. Normal [facility] General Surgery Office/Clini c Noteon 05-27-2024 General Surgery Office/Clinic Note General Surgery Office/Clinic Note Chief Complaint 3 month follow up HPI Staff Emeli is a 63 y.o. 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 Patient admitted an outside facility for hemoptysis. Currently following with infectious disease and pulmonology at [place] for evaluation of chronic infections of the [...] follow-up visit, related to the original procedure 62944 2. Encounter for follow-up surveillance of breast cancer (Z08: Encounter for follow-up examination after completed treatment for malignant neoplasm) As above Ordered: Postoperative follow-up visit, related to the original procedure 68271 Personal history of malignant neoplasm of breast (Z85.3: Personal history of malignant neoplasm of breast) Portions of this record may have been created with voice recognition artificial intelligence software, specifically [employer], [employer] and or [employer]. Substitutions may have occurred due to the [...] 50,000 intl units (1.25 mg) oral capsule, 46603 International_Unit= 1 cap(s), Oral, Daily Allergies No [...] Recorded influenza virus vaccine, inactivated 07/14/2014 Recorded [facility] Comment on above: Result Comment: Elec tronically Signed By: Aurora RICE, Lauro Cast.br\Date and Time Signed: 05/27/24 15:27 EST Documentationon 05-16-2024 Documentation [id number] Jing Kaufman 1960 F Date Provider Department Center 05/16/2024 NIYA CONWAY [facility] No family history on file [facility] Follow-Upon 05-02-2024 Follow-Up [facility] ANESon 05-01-2024 ANES [facility] HPon 05-01-2024 HP [facility] NURSNOTEon 05-01-2024 NURSNOTE [facility] NURSNOTE Bedside swallow stud y completed and passed. [facility] Surgical Pathology Reporton 04-29-2024 Surgical Pathology Report [address] [place] [address]- Surgical Pathology Report Collected Date/Time: 04/19/2024 09:04 EDT Pathologist: Aakash RICE PhD, Ildefonso Perez Received Date/Time: 04/19/2024 10:12 ISHANT Khanh RICE, Jatin Cassidy MD, Jatin Junior [...] characteristics were determined by the [facility]. They have not been cleared or approved by the US Food and Drug Administration. The FDA has determined that such clearance or approval is not necessary. These tests are used for clinical purposes. They should not be regarded as investigational or for research. Appropriate positive and negative controls are performed and are acceptable. Normal [facility] Comment on above: Performed By: #### 4 [id number] #### [facility] [address] [place] [address] Telephoneon 04-29-2024 Telephone [phone] Jing Kaufman 1960 F Date Provider Department Center 04/29/2024 MEENA HEREDIA [facility] VASC LAB [facility] No family history on file Normal [facility] NM PET w/ CT Scan Skull Base [...] Following the administration of 12.63 millicuries of Z33-Avgrmgmrjwryrchnfa (FDG), scans were obtained from above the skull through both feet on a dedicated PET CT unit. Using the facility service manager\X2019\s standard software, data were reconstructed using filtered [...] Jatin Cassidy MD Transcribed by: MEAGAN Technologist: VINCENT Technical Comments Dose (mCi F-18 FDG): 12.6 Imaging Post Administration (mins): 50 Normal [facility] CBC w/ Auto Diffon 4 Basophils/100 WBC (Bld) 0.7 % Normal 0.0-2.0 [facility] Comment on above: Performed By: #### 2 [id number] #### [facility] [address] [place] [address] Basophils/Leukocytes Auto (Bld) [Pure # fraction] 0.0 E9/L Normal 0.0-0.2 [facility] Comment on above: Performed By: #### 2 [id number] #### [facility] [address] [place] [address] Eosinophils (Bld) [#/Vol] 0.1 E9/L Normal 0.0-0.5 [facility] Comment on above: Performed By: #### 2 [id number] #### [facility] [address] [place] [address] Eosinophils/100 WBC (Bld) 1.1 % Normal 0.0-8.0 [facility] Comment on above: Performed By: #### 2 [id number] #### [facility] [address] [place] [address] Erythrocyte distribution width (RBC) [Ratio] 16.0 % High 10.9-14.2 [facility] Comment on above: Performed By: #### 2 [id number] #### [facility] [address] [place] [address] Hematocrit (Bld) [Volume fraction] 31.6 % Low 34.0-46.0 [facility] Comment on above: Performed By: #### 2 [id number] #### [facility] [address] [place] [address] Hemoglobin (Bld) [Mass/Vol] 10.3 g/dL Low 12.0-16.0 [facility] Comment on above: Performed By: #### 2 [id number] #### [facility] [address] [place] [address] Lymphocytes (Bld) [#/Vol] 0.7 E9/L Low 1.0-4.0 [facility] Comment on above: Performed By: #### 2 [id number] #### [facility] [address] [place] [address] Lymphocytes/100 WBC (Bld) 14.2 % Normal 14.0-50.0 [facility] Comment on above: Performed By: #### 2 [id number] #### [facility] [address] [place] [address] MCH (RBC) [Entitic mass] 29.2 pg Normal 27.0-34.0 [facility] Comment on above: Performed By: #### 2 [id number] #### [facility] [address] [place] [address] MCHC (RBC) [Mass/Vol] 32.5 g/dL Normal 31.4-36.0 [facility] Comment on above: Performed By: #### 2 193423 #### [facility] [address] [place] [address] MCV (RBC) [Entitic vol] 89.7 fL Normal 80.0-100.0 [facility] Comment on above: Performed By: #### 2 [id number] #### [facility] [address] [place] [address] Monocytes (Bld) [#/Vol] 0.5 E9/L Normal 0.2-1.0 [facility] Comment on above: Performed By: #### 2 [id number] #### [facility] [address] [place] [address] Neutrophils (Bld) [#/Vol] 3.6 E9/L Normal 2.0-7.5 [facility] Comment on above: Performed By: #### 2 [id number] #### [facility] [address] [place] [address] Neutrophils/100 WBC (Bld) 74.6 % Normal 36.0-75.0 [facility] Comment on above: Performed By: #### 2 [id number] #### [facility] [address] [place] [address] Platelet mean volume (Bld) [Entitic vol] 7.1 fL Normal 6.4-10.8 [facility] Comment on above: Performed By: #### 2 850302 #### [facility] [address] [place] [address] Platelets (Bld) [#/Vol] 392.0 E9/L Normal 150.0-500. 0 [facility] Comment on above: Performed By: #### 2 [id number] #### [facility] [address] [place] [address] RBC (Bld) [#/Vol] 3.5 E12/L Low 4.3-5.9 [facility] Comment on above: Performed By: #### 2 [id number] #### [facility] [address] [place] [address] WBC corrected for nucl RBC Auto (Bld) [#/Vol] 4.8 E9/L Normal 4.0-11.0 [facility] Comment on above: Performed By: #### 2 611078 #### [facility] [address] [place] [address] COAGULATIONOrdered By: Gaston Harp on 04-19-2024 aPTT Coag (PPP) [Time] 32.7 s Normal 25.1 - 36.5 second(s) [facility] Auto Coag Comment on above: Interpretive Data: [...] the same coagulation reagent and instrumentation as [facility]. Currently there are no coagulation studies available worldwide for children to 14 days, and no normal ranges. Heparin therapeutic range (represented by Anti-Factor Xa activity of 0.2 - 0.4 U/mL) corresponds to PTT of 56.6 - 109.0 sec. INR Coag (PPP) [Relative time] 1.17 {INR} Invalid Interpretation Code [facility] Auto Coag Comment on above: Interpretive Data: I NR results are specifically intended to assess patients stabilized on long-term Anticoagulation therapy suggested INR s Less Intensive Anticoagulation 2.0 3.0 Conventional Range 3.0 4.5 PT Coag (PPP) [Time] 13.1 s High 9.4 - 1 2.5 second(s) [facility] [facility] Auto Coag Comment on above: Interpretive Data: [...] the same coagulation reagent and instrumentation as [facility]. Currently there are no coagulation studies available [...] Signed by: Jatin Cassidy MD Transcribed by: MAEGAN Technologist: [place] MOON [facility] HEMATOLOGYOrdered By: SYSTEM SYSTEM on 04-19-2024 Basophils/100 [...] [Relative time] 1.17 {INR} Invalid Interpretation Code [facility] Comment on above: Result Comment: INR results are specifically intended to assess patients stabilized on long-term Anticoagulation therapy suggested INR?s ?Less Intensive Anticoagulation? 2.0 ? 3.0 Conventional Range 3.0 ? 4.5 Performed By: #### 2 [id number] #### [facility] [address] [place] [address] PT Coag (PPP) [Time] 13.1 second(s) High 9.4-12.5 [facility] Comment on above: Result Comment: 15 d [...] the same coagulation reagent and instrumentation as [facility]. Currently there are no coagulation studies available worldwide for children to 14 days, and no normal ranges. Performed By: #### 2 [id number] #### [facility] [address] [place] [address] PTTon 04-19-2024 aPTT Coag (PPP) [Time] 32.7 second(s) Normal 25.1-36.5 [facility] Comment on above: Result Comment: Para meter [...] the same coagulation reagent and instrumentation as [facility]. Currently there are no coagulation studies available worldwide for children to 14 days, and no normal ranges. Heparin therapeutic range (represented by Anti-Factor Xa activity of 0.2 - 0.4 U/mL) corresponds to PTT of 56.6 - 109.0 sec. Performed By: #### 2 [id number] #### [facility] [address] [place] [address] U24 Prot Electon 04-17-2024 Albumin Elph (24H U) [Mass fraction] 22.8 % Invalid Interpretation Code [facility] Comment on above: Order Comment: [facility] called and asked if gina had sent order over yet since they werent able to see the order. I went ahead and put the sample into transit for them. She will call back if they cant see the order. 04/15/2024 16:14:48 EDT [id number] Performed By: #### 1 [id number] #### [facility] [address] [place] [address] Alpha 1 globulin Elph (24H U) [Mass fraction] 6.9 % Invalid Interpretation Code [facility] Comment on above: Order Comment: [facility] called and asked if gina had sent order over yet since they werent able to see the order. I went ahead and put the sample into transit for them. She will call back if they cant see the order. 04/15/2024 16:14:48 EDT [id number] Performed By: #### 1 [id number] #### [facility] [address] [place] [address] Alpha 2 globulin Elph (24H U) [Mass fraction] 21.0 % Invalid Interpretation Code [facility] Comment on above: Order Comment: [facility] called and asked if gina had sent order over yet since they werent able to see the order. I went ahead and put the sample into transit for them. She will call back if they cant see the order. 04/15/2024 16:14:48 EDT [id number] Performed By: #### 1 [id number] #### [facility] [address] [place] [address] Beta globulin Elph (24H U) [Mass fraction] 27.8 % Invalid Interpretation Code [facility] Comment on above: Order Comment: [facility] called and asked if gina had sent order over yet since they werent able to see the order. I went ahead and put the sample into transit for them. She will call back if they cant see the order. 04/15/2024 16:14:48 EDT [id number] Performed By: #### 1 [id number] #### [facility] [address] [place] [address] Gamma globulin Elph (24H U) [Mass fraction] 21.5 % Invalid Interpretation Code [facility] Comment on above: Order Comment: [facility] called and asked if gina had sent order over yet since they werent able to see the order. I went ahead and put the sample into transit for them. She will call back if they cant see the order. 04/15/2024 16:14:48 EDT [id number] Performed By: #### 1 [id number] #### [facility] [address] [place] [address] Laboratory comment Yossi (Report) Comment Invalid Interpretation Code [facility] Comment on above: Order Comment: [facility] called and asked if gina had sent order over yet since they werent able to see the order. I went ahead and put the sample into transit for them. She will call back if they cant see the order. 04/15/2024 16:14:48 EDT [id number] Result Comment: Prot ein electrophoresis scan will follow via computer, mail, or crop grain or livestock farmer delivery. Performed at: [facility] [id number] PhD Adelfo Shannon Performed By: #### 1 [id number] #### [facility] [address] [place] [address] Protein (24H U) [Mass/Time] 130 mg/24hr Invalid Interpretation Code 30-150 [facility] Comment on above: Order Comment: [facility] called and asked if gina had sent order over yet since they werent able to see the order. I went ahead and put the sample into transit for them. She will call back if they cant see the order. 04/15/2024 16:14:48 EDT [id number] Performed By: #### 1 [id number] #### [facility] [address] [place] [address] Protein (U) [Mass/Vol] 9.6 mg/dL Invalid Interpretation Code Not Estab. [facility] Comment on above: Order Comment: [facility] called and asked if gina had sent order over yet since they werent able to see the order. I went ahead and put the sample into transit for them. She will call back if they cant see the order. 04/15/2024 16:14:48 EDT [id number] Performed By: #### 1 [id number] #### [facility] [address] [place] [address] Protein.monoclonal Elph (24H U) [Mass fraction] Not Observed Invalid Interpretation Code Not Observed [facility] Comment on above: Order Comment: [facility] called and asked if gina had sent order over yet since they werent able to see the order. I went ahead and put the sample into transit for them. She will call back if they cant see the order. 04/15/2024 16:14:48 EDT [id number] Performed By: #### 1 [id number] #### [facility] [address] [place] [address] WRITTEN AUTHORIZATIONon 10-0 Written Authorization Comment Invalid Interpretation Code [facility] Comment on above: Result Comment: Writ ten Authorization Received. Authorization received from electronic requisition 04-15-2024 Logged by Nya Burt Performed at: [address] [id number] PhD Adelfo Shannon Performed By: #### 3 [id number] #### [facility] [address] [place] [address] [place] 15-3on 04-15-2024 Cancer Ag 15-3 Qn 19.4 unit/mL Invalid Interpretation Code 0.0-25.0 [facility] Comment on above: Result Comment: [employer] Electrochemiluminescence Immunoassay (ECLIA) Values obtained with different assay methods or kits cannot be used interchangeably. Results cannot be interpreted as absolute evidence of the presence or absence of malignant disease. Performed at: [address] [id number] PhD Adelfo Shannon Performed By: #### 1 [id number] #### [facility] [address] [place] [address] CA 27 29on 04-15-2024 Cancer Ag 27-29 Qn 24.0 unit/mL Invalid Interpretation Code 0.0-38.6 [facility] Comment on above: Result Comment: [employer] Immunochemiluminometric Methodology (ICMA) Values obtained with different assay methods or kits cannot be used interchangeably. Results cannot be interpreted as absolute evidence of the presence or absence of malignant disease. Performed at: [address] [id number] PhD Adelfo Shannon Performed By: #### 1 [id number] #### [facility] [address] [place] [address] Free K+L Lt Chains,Qn,Son Immunoglobulin light chains.kappa.free (S) [Mass/Vol] 35.2 mg/L High 3.3-19.4 [facility] Comment on above: Performed By: #### 2 [id number] #### [facility] [address] [place] [address] Immunoglobulin light chains.kappa.free/Imm unoglobulin light chains.lambda.free (S) [Mass ratio] 1.12 Invalid Interpretation Code 0.26-1.65 [facility] Comment on above: Result Comment: Perf ormed at: [facility] [address] [id number] PhD Adelfo Shannon Performed By: #### 2 [id number] #### [facility] [address] [place] [address] Immunoglobulin light chains.lambda.free [Mass/Vol] 31.5 mg/L High 5.7-26.3 [facility] Comment on above: Performed By: #### 2 [id number] #### [facility] [address] [place] [address] JULIO and PE, Serumon 04-15-20 24 Albumin [Mass/Vol] 3.0 g/dL Invalid Interpretation Code 2.9-4.4 [facility] Comment on above: Performed By: #### 1 [id number] #### [facility] [address] [place] [address] Albumin/Globulin [Mass ratio] 0.8 {ratio} Invalid Interpretation Code 0.7-1.7 [facility] Comment on above: Performed By: #### 1 [id number] #### [facility] [address] [place] [address] Alpha 1 globulin Elph [Mass/Vol] 0.5 g/dL High 0.0-0.4 [facility] Comment on above: Performed By: #### 1 [id number] #### [facility] [address] [place] [address] Alpha 2 globulin Elph [Mass/Vol] 0.9 g/dL Invalid Interpretation Code 0.4-1.0 [facility] Comment on above: Performed By: #### 1 [id number] #### [facility] [address] [place] [address] Beta globulin Elph [Mass/Vol] 1.2 g/dL Invalid Interpretation Code 0.7-1.3 [facility] Comment on above: Performed By: #### 1 [id number] #### [facility] [address] [place] [address] Gamma globulin Elph [Mass/Vol] 1.4 g/dL Invalid Interpretation Code 0.4-1.8 [facility] Comment on above: Performed By: #### 1 [id number] #### [facility] [address] [place] [address] Globulin (S) [Mass/Vol] 4.0 g/dL High 2.2-3.9 [facility] Comment on above: Performed By: #### 1 [id number] #### [facility] [address] [place] [address] IgA [Mass/Vol] 533 mg/dL High 87-352 [facility] Comment on above: Performed By: #### 1 [id number] #### [facility] [address] [place] [address] IgG [Mass/Vol] 1396 mg/dL Invalid Interpretation Code 586-1602 [facility] Comment on above: Performed By: #### 1 [id number] #### [facility] [address] [place] [address] IgM [Mass/Vol] 114 mg/dL Invalid Interpretation Code 26-217 [facility] Comment on above: Performed By: #### 1 [id number] #### [facility] [address] [place] [address] Interpretation IEP [Interp] Comment Invalid Interpretation Code [facility] Comment on above: Result Comment: No m onoclonality detected. Performed By: #### 1 [id number] #### [facility] [address] [place] [address] Laboratory comment Yossi (Report) Comment Invalid Interpretation Code [facility] Comment on above: Result Comment: Prot ein electrophoresis scan will follow via computer, mail, or crop grain or livestock farmer delivery. Performed at: [facility] [id number] PhD Adelfo Shannon Performed By: #### 1 [id number] #### [facility] [address] [place] [address] Protein [Mass/Vol] 7.0 g/dL Invalid Interpretation Code 6.0-8.5 [facility] Comment on above: Performed By: #### 1 [id number] #### [facility] [address] [place] [address] Protein.monoclonal Elph [Mass/Vol] Not Observed Invalid Interpretation Code Not Observed [facility] Comment on above: Performed By: #### 1 [id number] #### [facility] [address] [place] [address] IgE, Quanton 04-15-2024 IgE Qn 24 International_Unit/mL Invalid Interpretation Code 6-495 [facility] Comment on above: Result Comment: Perf ormed at: [facility] [id number] MD José Miguel Shipman Performed By: #### 1 [id number] #### [facility] [address] [place] [address] Urine Vol/Per Ref Labon 03-19 Hrs Will Ref Lab 24 hour(s) Invalid Interpretation Code [facility] Comment on above: Order Comment: Order added by Discern Expert Performed By: #### 9 [id number] #### [facility] [address] [place] [address] Specimen volume Unsp time (U) 1350 mL Invalid Interpretation Code [facility] Comment on above: Order Comment: Order added by Discern Expert Performed By: #### 9 [id number] #### [facility] [address] [place] [address] Lab Miscellaneous-LCon 04-13 Lab Miscellaneous COMMENT Invalid Interpretation Code [facility] Comment on above: Order Comment: 24 hr urine TV-1350 ML Result Comment: Test Ordered: [id number] Free K+L Lt Chains,Qn,Ur Free [place] Lt Chains,Ur 89.13 [H ] mg/L BN Reference Range: 1.17-86.46 Free Lambda Lt Chains,Ur 10.17 mg/L BN Reference Range: 0.27-15.21 [place]/Lambda Ratio,U 8.76 BN Reference Range: 1.83-14.26 Performed at: [facility] [id number] PhD Adelfo Shannon Performed By: #### 1 [id number] #### [facility] [address] [place] [address] Lab Miscellaneous-LCon 04-11 Test Code 938909 Invalid Interpretation Code [facility] Comment on above: Order Comment: 24 hr urine TV-1350 ML Performed By: #### 1 [id number] #### [facility] [address] [place] [address] Lab Miscellaneous-LCOrdered By: Estela Kimberly on 04-11-2024 Test Name FLC 24hr UR Invalid Interpretation Code [facility] SendOutsSS Comment on above: Order Comment: 24 hr urine TV-1350 ML Performed By: #### 1 [id number] #### [facility] [address] [place] [address] Reference Laboratory Testing Ordered By: Estela Harris on 04-11-2024 Test Code 641635 1 Invalid Interpretation Code [facility] SendOutsSS Ambulatory Visit Summaryon 0 04-09-2024 Ambulatory Visit Summary Ambulatory Visit Summary EMELI KAUFMAN :1960 Visit Date:04/09/2024 Ambulatory Visit Instructions Your [...] EST With: Aurora RICE, Lauro Toro Where: [facility] General Surgery [address], [address] [place] [address]- Medications What How Much When Why Instructions [...] for choosing us for your care. Normal [facility] CBC w/ Auto Diffon 4 Basophils/100 WBC (Bld) 0.4 % Normal 0.0-2.0 [facility] Comment on above: Performed By: #### 2 [id number] #### [facility] [address] [place] [address] Basophils/Leukocytes Auto (Bld) [Pure # fraction] 0.0 E9/L Normal 0.0-0.2 [facility] Comment on above: Performed By: #### 2 [id number] #### [facility] [address] [place] [address] Eosinophils (Bld) [#/Vol] 0.0 E9/L Normal 0.0-0.5 [facility] Comment on above: Performed By: #### 2 [id number] #### [facility] [address] [place] [address] Eosinophils/100 WBC (Bld) 0.2 % Normal 0.0-8.0 [facility] Comment on above: Performed By: #### 2 [id number] #### [facility] [address] [place] [address] Erythrocyte distribution width (RBC) [Ratio] 15.7 % High 10.9-14.2 [facility] Comment on above: Performed By: #### 2 [id number] #### [facility] [address] [place] [address] Hematocrit (Bld) [Volume fraction] 32.0 % Low 34.0-46.0 [facility] Comment on above: Performed By: #### 2 [id number] #### [facility] [address] [place] [address] Hemoglobin (Bld) [Mass/Vol] 10.7 g/dL Low 12.0-16.0 [facility] Comment on above: Performed By: #### 2 [id number] #### [facility] [address] [place] [address] Lymphocytes (Bld) [#/Vol] 0.5 E9/L Low 1.0-4.0 [facility] Comment on above: Performed By: #### 2 [id number] #### [facility] [address] [place] [address] Lymphocytes/100 WBC (Bld) 5.2 % Low 14.0-50.0 [facility] Comment on above: Performed By: #### 2 [id number] #### [facility] [address] [place] [address] MCH (RBC) [Entitic mass] 30.7 pg Normal 27.0-34.0 [facility] Comment on above: Performed By: #### 2 [id number] #### [facility] [address] [place] [address] MCHC (RBC) [Mass/Vol] 33.3 g/dL Normal 31.4-36.0 [facility] Comment on above: Performed By: #### 2 [id number] #### [facility] [address] [place] [address] MCV (RBC) [Entitic vol] 92.2 fL Normal 80.0-100.0 [facility] Comment on above: Performed By: #### 2 [id number] #### [facility] [address] [place] [address] Monocytes (Bld) [#/Vol] 1.0 E9/L Normal 0.2-1.0 [facility] Comment on above: Performed By: #### 2 [id number] #### [facility] [address] [place] [address] Neutrophils (Bld) [#/Vol] 8.6 E9/L High 2.0-7.5 [facility] Comment on above: Performed By: #### 2 [id number] #### [facility] [address] [place] [address] Neutrophils/100 WBC (Bld) 84.0 % High 36.0-75.0 [facility] Comment on above: Performed By: #### 2 [id number] #### [facility] [address] [place] [address] Platelet mean volume (Bld) [Entitic vol] 8.5 fL Normal 6.4-10.8 [facility] Comment on above: Performed By: #### 2 [id number] #### [facility] [address] [place] [address] Platelets (Bld) [#/Vol] 310.0 E9/L Normal 150.0-500. 0 [facility] Comment on above: Performed By: #### 2 [id number] #### [facility] [address] [place] [address] RBC (Bld) [#/Vol] 3.5 E12/L Low 4.3-5.9 [facility] Comment on above: Performed By: #### 2 [id number] #### [facility] [address] [place] [address] WBC corrected for nucl RBC Auto (Bld) [#/Vol] 10.2 E9/L Normal 4.0-11.0 [facility] Comment on above: Performed By: #### 2 [id number] #### [facility] [address] [place] [address] CHEMISTRYOrdered By: SYSTEM SYSTEM on 04-09-2024 Albumin [Mass/Vol] 4.0 g/dL Normal 3.3 - 5.0 gm/dL [facility] Albumin/Globulin [Mass ratio] 1.0 {ratio} Low 1.1 - 2.2 [facility] ALP [Catalytic activity/Vol] 56 [iU]/d Normal 21 - 98 Int._Unit/ L [facility] ALT No additional P-5'-P [Catalytic activity/Vol] 8 [iU]/d Normal 6 - 46 Int._Unit/ L [facility] Anion gap [Moles/Vol] 12 mmol/L Normal 6 - 16 mEq/L [facility] AST [Catalytic activity/Vol] 13 [iU]/d Normal 5 - 43 Int._Unit/ L [facility] Bilirubin [Mass/Vol] 0.5 mg/dL Normal [...] Chem eGFR 104 mL/min/1.73 m2 Normal >=59mL/mi n /1.73 m2 [...] 04-09-2024 Albumin [Mass/Vol] 4.0 g/dL Normal 3.3-5.0 [facility] Comment on above: Performed By: #### 2 [id number] #### [facility] [address] [place] [address] Albumin/Globulin (S) [Mass conc ratio] 1.0 Low 1.1-2.2 [facility] Comment on above: Performed By: #### 2 [id number] #### [facility] [address] [place] [address] ALP [Catalytic activity/Vol] 56 Int._Unit/L Normal 21-98 [facility] Comment on above: Performed By: #### 2 [id number] #### [facility] [address] [place] [address] ALT No additional P-5'-P [Catalytic activity/Vol] 8 Int._Unit/L Normal 6-46 [facility] Comment on above: Performed By: #### 2 [id number] #### [facility] [address] [place] [address] Anion gap [Moles/Vol] 12 mmol/L Normal 6-16 [facility] Comment on above: Performed By: #### 2 [id number] #### [facility] [address] [place] [address] AST [Catalytic activity/Vol] 13 Int._Unit/L Normal 5-43 [facility] Comment on above: Performed By: #### 2 [id number] #### [facility] [address] [place] [address] Bilirubin [Mass/Vol] 0.5 mg/dL Normal 0.0-1.1 [facility] Comment on above: Performed By: #### 2 137798 #### [facility] [address] [place] [address] Calcium [Mass/Vol] 9.1 mg/dL Normal 8.9-11.1 [facility] Comment on above: Performed By: #### 2 [id number] #### [facility] [address] [place] [address] Chloride [Moles/Vol] 103 mmol/L Normal 101-111 [facility] Comment on above: Performed By: #### 2 904938 #### [facility] [address] [place] [address] CO2 [Moles/Vol] 25 mmol/L Normal 21-31 [facility] Comment on above: Performed By: #### 2 694696 #### [facility] [address] [place] [address] Creatinine [Mass/Vol] 0.5 mg/dL Normal 0.5-1.3 [facility] Comment on above: Performed By: #### 2 415375 #### [facility] [address] [place] [address] Globulin (S) [Mass/Vol] 4.0 g/dL Normal 1.4-4.0 [facility] Comment on above: Performed By: #### 2 [id number] #### [facility] [address] [place] [address] Glucose [Mass/Vol] 97 mg/dL Normal 55-199 [facility] Comment on above: Performed By: #### 2 [id number] #### [facility] [address] [place] [address] Potassium [Moles/Vol] 4.2 mmol/L Normal 3.5-5.3 [facility] Comment on above: Performed By: #### 2 304853 #### [facility] [address] [place] [address] Protein [Mass/Vol] 8.0 g/dL High 6.0-7.8 [facility] Comment on above: Performed By: #### 2 [id number] #### [facility] [address] [place] [address] Sodium [Moles/Vol] 136 mmol/L Normal 135-145 [facility] Comment on above: Performed By: #### 2 207178 #### [facility] [address] [place] [address] Urea nitrogen [Mass/Vol] 20 mg/dL Normal 5-21 [facility] Comment on above: Performed By: #### 2 [id number] #### [facility] [address] [place] [address] Urea nitrogen/Creatinine [Mass ratio] 40 No Units High 10-20 [facility] Comment on above: Performed By: #### 2 [id number] #### [facility] [address] [place] [address] HEMATOLOGYOrdered By: SYSTEM SYSTEM on 04-09-2024 Basophils/100 [...] 04-09-2024 eGFR 104 mL/min/1.73 m2 Normal >=59 [facility] Comment on above: Performed By: #### 1 [id number] #### [facility] [address] [place] [address] 36on 04-02-2024 36 No one answered the phone call. Normal [facility] Telephoneon 04-02-2024 Telephone Normal [facility] 30on 04-01-2024 30 Normal [facility] BASIC METABOLIC PANELon 03-17 Anion gap [Moles/Vol] 13 mmol/L Normal 7-20 [facility] Comment on above: Performed By: #### L AB15 ####[facility] [place] [address] Calcium [Mass/Vol] 9.3 mg/dL Normal 8.6-10.3 [facility] Comment on above: Performed By: #### L AB15 ####[facility] [place] [address] Chloride [Moles/Vol] 103 mmol/L Normal 98-107 [facility] Comment on above: Performed By: #### L AB15 ####[facility] [place] [address] CO2 [Moles/Vol] 28 mmol/L Normal 21-31 [facility] Comment on above: Performed By: #### L AB15 ####[facility] [place] [address] Creatinine [Mass/Vol] 0.52 mg/dL Low 0.60-1.20 [facility] Comment on above: Performed By: #### L AB15 ####[facility] [place] [address] GLOMERULAR FILTRATION RATE ML/MIN/1.73 SQ M.PREDICTED 103.0 mL/min/1.73m*2 Normal >60.0 [facility] Comment on above: Result Comment: [facility]???s estimated glomerular filtration rate (eGFR) will [...] of individuals. Performed By: #### L AB15 ####[facility] [place] [address] Glucose [Mass/Vol] 84 mg/dL Normal 70-100 [facility] Comment on above: Performed By: #### L AB15 ####[facility] ([facility])[address] [place] [address] Potassium [Moles/Vol] 3.8 mmol/L Normal 3.5-5.1 [facility] Comment on above: Performed By: #### L AB15 ####[facility] [facility])[address] [place] [address] Sodium [Moles/Vol] 140 mmol/L Normal 136-145 [facility] Comment on above: Performed By: #### L [id number] ####[facility] ([facility])[address] [place] [address] Urea nitrogen [Mass/Vol] 34 mg/dL High 7-25 [facility] Comment on above: Performed By: #### L [id number] ####[facility] ([facility])[address] [place] [address] UREA NITROGEN/CREATININE (MASS RATIO) IN SER/PLAS 65.4 Normal [facility] Comment on above: Performed By: #### L [id number] ####[facility] ([facility])[address] [place] [address] CBC WITH AUTO DIFFERENTIALon 04-01-2024 Basophils (Bld) [#/Vol] 0.04 10*3/uL Normal 0.00-0.20 [facility] Comment on above: Performed By: #### L [id number] ####[facility] [place] [address] Basophils/100 WBC (Bld) 0.8 % Normal 0.0-1.0 [facility] Comment on above: Performed By: #### L [id number] ####[facility] [place] [address] Eosinophils (Bld) [#/Vol] 0.17 10*3/uL Normal 0.00-0.50 [facility] Comment on above: Performed By: #### L [id number] ####[facility] ([facility])[address] [place] [address] Eosinophils/100 WBC (Bld) 3.4 % Normal 0.0-6.0 [facility] Comment on above: Performed By: #### L [id number] ####[facility] ([facility])[address] [place] [address] Erythrocyte distribution width (RBC) [Ratio] 15.7 % High 11.5-15.0 [facility] Comment on above: Performed By: #### L [id number] ####[facility] [place] [address] ERYTHROCYTE MEAN CORPUSCULAR HEMOGLOBIN CONCENTRATION (G/DL) BY AUTOMATED 30.8 g/dL Low 32.0-35.0 [facility] Comment on above: Performed By: #### L [id number] ####[facility] [place] [address] Hematocrit (Bld) [Volume fraction] 31.8 % Low 36.0-48.0 [facility] Comment on above: Performed By: #### L [id number] ####[facility] ([facility])[address] [place] [address] Hemoglobin (Bld) [Mass/Vol] 9.8 g/dL Low 12.0-15.0 [facility] Comment on above: Performed By: #### L [id number] ####[facility] ([facility])[address] [place] [address] Immature granulocytes (Bld) [#/Vol] 0.04 10*3/uL Normal 0.00-0.20 [facility] Comment on above: Performed By: #### L [id number] ####[facility] ([facility])[address] [place] [address] Immature granulocytes/100 WBC (Bld) 0.8 % Normal 0.0-1.0 [facility] Comment on above: Performed By: #### L [id number] ####[facility] [place] [address] Lymphocytes (Bld) [#/Vol] 1.49 10*3/uL Normal 1.20-4.00 [facility] Comment on above: Performed By: #### L [id number] ####[facility] ([facility])[address] [place] [address] Lymphocytes/100 WBC (Bld) 30.2 % Normal 20.0-45.0 [facility] Comment on above: Performed By: #### L [id number] ####[facility] ([facility])[address] [place] [address] MCH (RBC) [Entitic mass] 29.6 pg Normal 27.0-33.0 [facility] Comment on above: Performed By: #### L [id number] ####[facility] ([facility])[address] [place] [address] MCV (RBC) [Entitic vol] 96.1 fL Normal 82.0-98.0 [facility] Comment on above: Performed By: #### L [id number] ####[facility] ([facility])[address] [place] [address] Monocytes (Bld) [#/Vol] 0.46 10*3/uL Normal 0.10-1.00 [facility] Comment on above: Performed By: #### L [id number] ####[facility] ([facility])[address] [place] [address] Monocytes/100 WBC (Bld) 9.3 % Normal 5.0-12.0 [facility] Comment on above: Performed By: #### L [id number] ####[facility] ([facility])[address] [place] [address] Neutrophils (Bld) [#/Vol] 2.74 10*3/uL Normal 1.60-7.60 [facility] Comment on above: Performed By: #### L [id number] ####[facility] ([facility])[address] [place] [address] Neutrophils/100 WBC (Bld) 55.5 % Normal 40.0-72.0 [facility] Comment on above: Performed By: #### L [id number] ####[facility] [place] [address] NRBC (PER 100 WBCS) BY AUTOMATED COUNT 0.0 % Normal 0 [facility] Comment on above: Performed By: #### L [id number] ####[facility] ([facility])[address] [place] [address] PLATELETS (10*3/UL) IN BLOOD AUTOMATED COUNT 393 10*3/uL Normal 150-400 [facility] Comment on above: Performed By: #### L [id number] ####[facility] ([facility])[address] [place] [address] RBC (Bld) [#/Vol] 3.31 10*6/uL Low 3.80-5.00 [facility] Comment on above: Performed By: #### L [id number] ####[facility] ([facility])[address] [place] [address] WBC (Bld) [#/Vol] 4.94 10*3/uL Normal 4.00-10.60 [facility] Comment on above: Performed By: #### L [id number] ####[facility] ([facility])[address] [place] [address] CONSULTon 04-01-2024 CONSULT Normal [facility] DSon 04-01-2024 DS Normal [facility] MAGNESIUMon 04-01-2024 Magnesium [Mass/Vol] 1.9 mg/dL Normal 1.9-2.7 [facility] Comment on above: Performed By: #### L [id number] ####[facility] ([facility])[address] [place] [address] PHOSPHORUSon 04-01-2024 Magnesium [Mass/Vol] 3.1 mg/dL Normal 2.5-5.0 [facility] Comment on above: Performed By: #### L [id number] ####[facility] ([facility])[address] [place] [address] BASIC METABOLIC PANELon 03-17 Anion gap [Moles/Vol] 12 mmol/L Normal 7-20 [facility] Comment on above: Performed By: #### L [id number] ####[facility] [place] [address] Calcium [Mass/Vol] 9.1 mg/dL Normal 8.6-10.3 [facility] Comment on above: Performed By: #### L [id number] ####[facility] [place] [address] Chloride [Moles/Vol] 102 mmol/L Normal 98-107 [facility] Comment on above: Performed By: #### L [id number] ####[facility] [place] [address] CO2 [Moles/Vol] 28 mmol/L Normal 21-31 [facility] Comment on above: Performed By: #### L [id number] ####[facility] [place] [address] Creatinine [Mass/Vol] 0.52 mg/dL Low 0.60-1.20 [facility] Comment on above: Performed By: #### L [id number] ####[facility] ([facility])[address] [place] [address] GLOMERULAR FILTRATION RATE ML/MIN/1.73 SQ M.PREDICTED 103.0 mL/min/1.73m*2 Normal >60.0 [facility] Comment on above: Result Comment: [facility]???s estimated glomerular filtration rate (eGFR) will [...] of individuals. Performed By: #### L [id number] ####[facility] ([facility])[address] [place] [address] Glucose [Mass/Vol] 103 mg/dL High 70-100 [facility] Comment on above: Performed By: #### L [id number] ####[facility] ([facility])[address] [place] [address] Potassium [Moles/Vol] 4.0 mmol/L Normal 3.5-5.1 [facility] Comment on above: Performed By: #### L [id number] ####[facility] ([facility])[address] [place] [address] Sodium [Moles/Vol] 138 mmol/L Normal 136-145 [facility] Comment on above: Performed By: #### L [id number] ####[facility] ([facility])[address] [place] [address] Urea nitrogen [Mass/Vol] 28 mg/dL High 7-25 [facility] Comment on above: Performed By: #### L [id number] ####[facility] [place] [address] UREA NITROGEN/CREATININE (MASS RATIO) IN SER/PLAS 53.8 Normal [facility] Comment on above: Performed By: #### L [id number] ####[facility] [place] [address] CBC WITH AUTO DIFFERENTIALon 03-31-2024 Basophils (Bld) [#/Vol] 0.05 10*3/uL Normal 0.00-0.20 [facility] Comment on above: Performed By: #### L [id number] ####[facility] ([facility])[address] [place] [address] Basophils/100 WBC (Bld) 0.8 % Normal 0.0-1.0 [facility] Comment on above: Performed By: #### L [id number] ####[facility] ([facility])[address] [place] [address] Eosinophils (Bld) [#/Vol] 0.16 10*3/uL Normal 0.00-0.50 [facility] Comment on above: Performed By: #### L [id number] ####[facility] ([facility])[address] [place] [address] Eosinophils/100 WBC (Bld) 2.7 % Normal 0.0-6.0 [facility] Comment on above: Performed By: #### L [id number] ####[facility] ([facility])[address] [place] [address] Erythrocyte distribution width (RBC) [Ratio] 15.4 % High 11.5-15.0 [facility] Comment on above: Performed By: #### L [id number] ####[facility] [place] [address] ERYTHROCYTE MEAN CORPUSCULAR HEMOGLOBIN CONCENTRATION (G/DL) BY AUTOMATED 31.4 g/dL Low 32.0-35.0 [facility] Comment on above: Performed By: #### L [id number] ####[facility] ([facility])[address] [place] [address] Hematocrit (Bld) [Volume fraction] 30.6 % Low 36.0-48.0 [facility] Comment on above: Performed By: #### L [id number] ####[facility] ([facility])[address] [place] [address] Hemoglobin (Bld) [Mass/Vol] 9.6 g/dL Low 12.0-15.0 [facility] Comment on above: Performed By: #### L [id number] ####[facility] ([facility])[address] [place] [address] Immature granulocytes (Bld) [#/Vol] 0.03 10*3/uL Normal 0.00-0.20 [facility] Comment on above: Performed By: #### L [id number] ####[facility] ([facility])[address] [place] [address] Immature granulocytes/100 WBC (Bld) 0.5 % Normal 0.0-1.0 [facility] Comment on above: Performed By: #### L [id number] ####[facility] ([facility])[address] [place] [address] Lymphocytes (Bld) [#/Vol] 1.18 10*3/uL Low 1.20-4.00 [facility] Comment on above: Performed By: #### L [id number] ####[facility] ([facility])[address] [place] [address] Lymphocytes/100 WBC (Bld) 20.0 % Normal 20.0-45.0 [facility] Comment on above: Performed By: #### L [id number] ####[facility] ([facility])[address] [place] [address] MCH (RBC) [Entitic mass] 29.6 pg Normal 27.0-33.0 [facility] Comment on above: Performed By: #### L [id number] ####[facility] ([facility])[address] [place] [address] MCV (RBC) [Entitic vol] 94.4 fL Normal 82.0-98.0 [facility] Comment on above: Performed By: #### L [id number] ####[facility] ([facility])[address] [place] [address] Monocytes (Bld) [#/Vol] 0.61 10*3/uL Normal 0.10-1.00 [facility] Comment on above: Performed By: #### L [id number] ####[facility] ([facility])[address] [place] [address] Monocytes/100 WBC (Bld) 10.4 % Normal 5.0-12.0 [facility] Comment on above: Performed By: #### L [id number] ####[facility] ([facility])[address] [place] [address] Neutrophils (Bld) [#/Vol] 3.86 10*3/uL Normal 1.60-7.60 [facility] Comment on above: Performed By: #### L [id number] ####[facility] [place] [address] Neutrophils/100 WBC (Bld) 65.6 % Normal 40.0-72.0 [facility] Comment on above: Performed By: #### L [id number] ####[facility] ([facility])[address] [place] [address] NRBC (PER 100 WBCS) BY AUTOMATED COUNT 0.0 % Normal 0 [facility] Comment on above: Performed By: #### L [id number] ####[facility] ([facility])[address] [place] [address] PLATELETS (10*3/UL) IN BLOOD AUTOMATED COUNT 373 10*3/uL Normal 150-400 [facility] Comment on above: Performed By: #### L [id number] ####[facility] ([facility])[address] [place] [address] RBC (Bld) [#/Vol] 3.24 10*6/uL Low 3.80-5.00 [facility] Comment on above: Performed By: #### L [id number] ####[facility] ([facility])[address] [place] [address] WBC (Bld) [#/Vol] 5.89 10*3/uL Normal 4.00-10.60 [facility] Comment on above: Performed By: #### L [id number] ####[facility] ([facility])[address] [place] [address] MAGNESIUMon 03-31-2024 Magnesium [Mass/Vol] 1.9 mg/dL Normal 1.9-2.7 [facility] Comment on above: Performed By: #### L [id number] ####[facility] ([facility])[address] [place] [address] Magnesium [Mass/Vol] 1.8 mg/dL Low 1.9-2.7 [facility] Comment on above: Performed By: #### L [id number] ####[facility] ([facility])[address] [place] [address] NURSNOTEon 03-31-2024 NURSNOTE Normal [facility] NURSNOTE Normal [facility] PHOSPHORUSon 03-31-2024 Magnesium [Mass/Vol] 3.2 mg/dL Normal 2.5-5.0 [facility] Comment on above: Performed By: #### L [id number] ####[facility] ([facility])[address] [place] [address] 30on 03-30-2024 30 Normal [facility] BASIC METABOLIC PANELon 03-17 Anion gap [Moles/Vol] 14 mmol/L Normal 7-20 [facility] Comment on above: Performed By: #### L [id number] ####[facility] ([facility])[address] [place] [address] Calcium [Mass/Vol] 9.2 mg/dL Normal 8.6-10.3 [facility] Comment on above: Performed By: #### L [id number] ####[facility] [place] [address] Chloride [Moles/Vol] 101 mmol/L Normal 98-107 [facility] Comment on above: Performed By: #### L [id number] ####[facility] [place] [address] CO2 [Moles/Vol] 27 mmol/L Normal 21-31 [facility] Comment on above: Performed By: #### L [id number] ####[facility] ([facility])[address] [place] [address] Creatinine [Mass/Vol] 0.44 mg/dL Low 0.60-1.20 [facility] Comment on above: Performed By: #### L [id number] ####[facility] ([facility])[address] [place] [address] GLOMERULAR FILTRATION RATE ML/MIN/1.73 SQ M.PREDICTED 107.3 mL/min/1.73m*2 Normal >60.0 [facility] Comment on above: Result Comment: [facility]???s estimated glomerular filtration rate (eGFR) will [...] of individuals. Performed By: #### L [id number] ####[facility] [place] [address] Glucose [Mass/Vol] 103 mg/dL High 70-100 [facility] Comment on above: Performed By: #### L [id number] ####[facility] [place] [address] Potassium [Moles/Vol] 3.8 mmol/L Normal 3.5-5.1 [facility] Comment on above: Performed By: #### L [id number] ####[facility] ([facility])[address] [place] [address] Sodium [Moles/Vol] 138 mmol/L Normal 136-145 [facility] Comment on above: Performed By: #### L [id number] ####[facility] ([facility])[address] [place] [address] Urea nitrogen [Mass/Vol] 15 mg/dL Normal 7-25 [facility] Comment on above: Performed By: #### L [id number] ####[facility] ([facility])[address] [place] [address] UREA NITROGEN/CREATININE (MASS RATIO) IN SER/PLAS 34.1 Normal [facility] Comment on above: Performed By: #### L [id number] ####[facility] ([facility])[address] [place] [address] CBC WITH AUTO DIFFERENTIALon 03-30-2024 Basophils (Bld) [#/Vol] 0.03 10*3/uL Normal 0.00-0.20 [facility] Comment on above: Performed By: #### L [id number] ####[facility] ([facility])[address] [place] [address] Basophils/100 WBC (Bld) 0.4 % Normal 0.0-1.0 [facility] Comment on above: Performed By: #### L [id number] ####[facility] [place] [address] Eosinophils (Bld) [#/Vol] 0.03 10*3/uL Normal 0.00-0.50 [facility] Comment on above: Performed By: #### L [id number] ####[facility] [place] [address] Eosinophils/100 WBC (Bld) 0.4 % Normal 0.0-6.0 [facility] Comment on above: Performed By: #### L [id number] ####[facility] ([facility])[address] [place] [address] Erythrocyte distribution width (RBC) [Ratio] 14.6 % Normal 11.5-15.0 [facility] Comment on above: Performed By: #### L [id number] ####[facility] [place] [address] ERYTHROCYTE MEAN CORPUSCULAR HEMOGLOBIN CONCENTRATION (G/DL) BY AUTOMATED 32.4 g/dL Normal 32.0-35.0 [facility] Comment on above: Performed By: #### L [id number] ####[facility] ([facility])[address] [place] [address] Hematocrit (Bld) [Volume fraction] 29.6 % Low 36.0-48.0 [facility] Comment on above: Performed By: #### L [id number] ####[facility] ([facility])[address] [place] [address] Hemoglobin (Bld) [Mass/Vol] 9.6 g/dL Low 12.0-15.0 [facility] Comment on above: Performed By: #### L [id number] ####[facility] ([facility])[address] [place] [address] Immature granulocytes (Bld) [#/Vol] 0.04 10*3/uL Normal 0.00-0.20 [facility] Comment on above: Performed By: #### L [id number] ####[facility] ([facility])[address] [place] [address] Immature granulocytes/100 WBC (Bld) 0.5 % Normal 0.0-1.0 [facility] Comment on above: Performed By: #### L [id number] ####[facility] [place] [address] Lymphocytes (Bld) [#/Vol] 1.16 10*3/uL Low 1.20-4.00 [facility] Comment on above: Performed By: #### L [id number] ####[facility] [place] [address] Lymphocytes/100 WBC (Bld) 14.4 % Low 20.0-45.0 [facility] Comment on above: Performed By: #### L [id number] ####[facility] [place] [address] MCH (RBC) [Entitic mass] 30.1 pg Normal 27.0-33.0 [facility] Comment on above: Performed By: #### L [id number] ####[facility] ([facility])[address] [place] [address] MCV (RBC) [Entitic vol] 92.8 fL Normal 82.0-98.0 [facility] Comment on above: Performed By: #### L [id number] ####[facility] ([facility])[address] [place] [address] Monocytes (Bld) [#/Vol] 0.83 10*3/uL Normal 0.10-1.00 [facility] Comment on above: Performed By: #### L [id number] ####[facility] ([facility])[address] [place] [address] Monocytes/100 WBC (Bld) 10.3 % Normal 5.0-12.0 [facility] Comment on above: Performed By: #### L [id number] ####[facility] ([facility])[address] [place] [address] Neutrophils (Bld) [#/Vol] 5.97 10*3/uL Normal 1.60-7.60 [facility] Comment on above: Performed By: #### L [id number] ####[facility] [place] [address] Neutrophils/100 WBC (Bld) 74.0 % High 40.0-72.0 [facility] Comment on above: Performed By: #### L [id number] ####[facility] [place] [address] NRBC (PER 100 WBCS) BY AUTOMATED COUNT 0.0 % Normal 0 [facility] Comment on above: Performed By: #### L [id number] ####[facility] [place] [address] PLATELETS (10*3/UL) IN BLOOD AUTOMATED COUNT 394 10*3/uL Normal 150-400 [facility] Comment on above: Performed By: #### L [id number] ####[facility] [place] [address] RBC (Bld) [#/Vol] 3.19 10*6/uL Low 3.80-5.00 [facility] Comment on above: Performed By: #### L [id number] ####[facility] ([facility])[address] [place] [address] WBC (Bld) [#/Vol] 8.06 10*3/uL Normal 4.00-10.60 [facility] Comment on above: Performed By: #### L [id number] ####[facility] ([facility])[address] [place] [address] HEMOGLOBIN AND HEMATOCRIT, B LOODon 03-30-2024 Hematocrit (Bld) [Volume fraction] 29.9 % Low 36.0-48.0 [facility] Comment on above: Performed By: #### L [id number] ####[facility] ([facility])[address] [place] [address] Hemoglobin (Bld) [Mass/Vol] 9.7 g/dL Low 12.0-15.0 [facility] Comment on above: Performed By: #### L [id number] ####[facility] ([facility])[address] [place] [address] MAGNESIUMon 03-30-2024 Magnesium [Mass/Vol] 2.1 mg/dL Normal 1.9-2.7 [facility] Comment on above: Performed By: #### L [id number] ####[facility] ([facility])[address] [place] [address] PHOSPHORUSon 03-30-2024 Magnesium [Mass/Vol] 3.4 mg/dL Normal 2.5-5.0 [facility] Comment on above: Performed By: #### L [id number] ####[facility] ([facility])[address] [place] [address] BASIC METABOLIC PANELon 03-17 Anion gap [Moles/Vol] 16 mmol/L Normal 7-20 [facility] Comment on above: Performed By: #### L [id number] ####[facility] ([facility])[address] [place] [address] Calcium [Mass/Vol] 9.5 mg/dL Normal 8.6-10.3 [facility] Comment on above: Performed By: #### L [id number] ####[facility] ([facility])[address] [place] [address] Chloride [Moles/Vol] 101 mmol/L Normal 98-107 [facility] Comment on above: Performed By: #### L [id number] ####[facility] ([facility])[address] [place] [address] CO2 [Moles/Vol] 26 mmol/L Normal 21-31 [facility] Comment on above: Performed By: #### L [id number] ####[facility] ([facility])[address] [place] [address] Creatinine [Mass/Vol] 0.48 mg/dL Low 0.60-1.20 [facility] Comment on above: Performed By: #### L [id number] ####[facility] ([facility])[address] [place] [address] GLOMERULAR FILTRATION RATE ML/MIN/1.73 SQ M.PREDICTED 105.0 mL/min/1.73m*2 Normal >60.0 [facility] Comment on above: Result Comment: [facility]???s estimated glomerular filtration rate (eGFR) will [...] of individuals. Performed By: #### L [id number] ####[facility] ([facility])[address] [place] [address] Glucose [Mass/Vol] 183 mg/dL High 70-100 [facility] Comment on above: Performed By: #### L [id number] ####[facility] ([facility])[address] [place] [address] Potassium [Moles/Vol] 3.9 mmol/L Normal 3.5-5.1 [facility] Comment on above: Performed By: #### L [id number] ####[facility] ([facility])[address] [place] [address] Sodium [Moles/Vol] 139 mmol/L Normal 136-145 [facility] Comment on above: Performed By: #### L [id number] ####[facility] [place] [address] Urea nitrogen [Mass/Vol] 13 mg/dL Normal 7-25 [facility] Comment on above: Performed By: #### L [id number] ####[facility] [place] [address] UREA NITROGEN/CREATININE (MASS RATIO) IN SER/PLAS 27.1 Normal [facility] Comment on above: Performed By: #### L [id number] ####[facility] ([facility])[address] [place] [address] Anion gap [Moles/Vol] 10 mmol/L Normal 7-20 [facility] Comment on above: Performed By: #### L [id number] ####[facility] ([facility])[address] [place] [address] Calcium [Mass/Vol] 8.5 mg/dL Low 8.6-10.3 [facility] Comment on above: Performed By: #### L [id number] ####[facility] [place] [address] Chloride [Moles/Vol] 107 mmol/L Normal 98-107 [facility] Comment on above: Performed By: #### L [id number] ####[facility] ([facility])[address] [place] [address] CO2 [Moles/Vol] 26 mmol/L Normal 21-31 [facility] Comment on above: Performed By: #### L [id number] ####[facility] ([facility])[address] [place] [address] Creatinine [Mass/Vol] 0.41 mg/dL Low 0.60-1.20 [facility] Comment on above: Performed By: #### L [id number] ####[facility] ([facility])[address] [place] [address] GLOMERULAR FILTRATION RATE ML/MIN/1.73 SQ M.PREDICTED 109.1 mL/min/1.73m*2 Normal >60.0 [facility] Comment on above: Result Comment: [facility]???s estimated glomerular filtration rate (eGFR) will [...] of individuals. Performed By: #### L [id number] ####[facility] [place] [address] Glucose [Mass/Vol] 86 mg/dL Normal 70-100 [facility] Comment on above: Performed By: #### L [id number] ####[facility] [place] [address] Potassium [Moles/Vol] 3.8 mmol/L Normal 3.5-5.1 [facility] Comment on above: Performed By: #### L [id number] ####[facility] [place] [address] Sodium [Moles/Vol] 139 mmol/L Normal 136-145 [facility] Comment on above: Performed By: #### L [id number] ####[facility] ([facility])[address] [place] [address] Urea nitrogen [Mass/Vol] 14 mg/dL Normal 7-25 [facility] Comment on above: Performed By: #### L [id number] ####[facility] ([facility])[address] [place] [address] UREA NITROGEN/CREATININE (MASS RATIO) IN SER/PLAS 34.1 Normal [facility] Comment on above: Performed By: #### L [id number] ####[facility] ([facility])[address] [place] [address] CBC WITH AUTO DIFFERENTIALon 03-29-2024 Basophils (Bld) [#/Vol] 0.03 10*3/uL Normal 0.00-0.20 [facility] Comment on above: Performed By: #### L [id number] ####[facility] [place] [address] Basophils/100 WBC (Bld) 0.7 % Normal 0.0-1.0 [facility] Comment on above: Performed By: #### L [id number] ####[facility] [place] [address] Eosinophils (Bld) [#/Vol] 0.19 10*3/uL Normal 0.00-0.50 [facility] Comment on above: Performed By: #### L [id number] ####[facility] ([facility])[address] [place] [address] Eosinophils/100 WBC (Bld) 4.3 % Normal 0.0-6.0 [facility] Comment on above: Performed By: #### L [id number] ####[facility] ([facility])[address] [place] [address] Erythrocyte distribution width (RBC) [Ratio] 15.2 % High 11.5-15.0 [facility] Comment on above: Performed By: #### L [id number] ####[facility] ([facility])[address] [place] [address] ERYTHROCYTE MEAN CORPUSCULAR HEMOGLOBIN CONCENTRATION (G/DL) BY AUTOMATED 31.6 g/dL Low 32.0-35.0 [facility] Comment on above: Performed By: #### L [id number] ####[facility] ([facility])[address] [place] [address] Hematocrit (Bld) [Volume fraction] 24.7 % Low 36.0-48.0 [facility] Comment on above: Performed By: #### L [id number] ####[facility] ([facility])[address] [place] [address] Hemoglobin (Bld) [Mass/Vol] 7.8 g/dL Low 12.0-15.0 [facility] Comment on above: Performed By: #### L [id number] ####[facility] ([facility])[address] [place] [address] Immature granulocytes (Bld) [#/Vol] 0.02 10*3/uL Normal 0.00-0.20 [facility] Comment on above: Performed By: #### L [id number] ####[facility] [place] [address] Immature granulocytes/100 WBC (Bld) 0.4 % Normal 0.0-1.0 [facility] Comment on above: Performed By: #### L [id number] ####[facility] ([facility])[address] [place] [address] Lymphocytes (Bld) [#/Vol] 0.87 10*3/uL Low 1.20-4.00 [facility] Comment on above: Performed By: #### L [id number] ####[facility] ([facility])[address] [place] [address] Lymphocytes/100 WBC (Bld) 19.5 % Low 20.0-45.0 [facility] Comment on above: Performed By: #### L [id number] ####[facility] ([facility])[address] [place] [address] MCH (RBC) [Entitic mass] 29.3 pg Normal 27.0-33.0 [facility] Comment on above: Performed By: #### L [id number] ####[facility] ([facility])[address] [place], [place] [address] MCV (RBC) [Entitic vol] 92.9 fL Normal 82.0-98.0 [facility] Comment on above: Performed By: #### L [id number] ####[facility] ([facility])[address] [place] [address] Monocytes (Bld) [#/Vol] 0.49 10*3/uL Normal 0.10-1.00 [facility] Comment on above: Performed By: #### L [id number] ####[facility] ([facility])[address] [place], [place] [address] Monocytes/100 WBC (Bld) 11.0 % Normal 5.0-12.0 [facility] Comment on above: Performed By: #### L [id number] ####[facility] ([facility])[address] [place] [address] Neutrophils (Bld) [#/Vol] 2.86 10*3/uL Normal 1.60-7.60 [facility] Comment on above: Performed By: #### L [id number] ####[facility] ([facility])[address] [place] [address] Neutrophils/100 WBC (Bld) 64.1 % Normal 40.0-72.0 [facility] Comment on above: Performed By: #### L [id number] ####[facility] ([facility])[address] [address] NRBC (PER 100 WBCS) BY AUTOMATED COUNT 0.0 % Normal 0 [facility] Comment on above: Performed By: #### L [id number] ####[facility] ([facility])[address] [address] PLATELETS (10*3/UL) IN BLOOD AUTOMATED COUNT 283 10*3/uL Normal 150-400 [facility] Comment on above: Performed By: #### L [id number] ####[facility] ([facility])[address] [place] [address] RBC (Bld) [#/Vol] 2.66 10*6/uL Low 3.80-5.00 [facility] Comment on above: Performed By: #### L [id number] ####[facility] ([facility])[address] [place] [address] WBC (Bld) [#/Vol] 4.46 10*3/uL Normal 4.00-10.60 [facility] Comment on above: Performed By: #### L [id number] ####[facility] ([facility])[address] [place] [address] HEMOGLOBIN AND HEMATOCRIT, B LOODon 03-29-2024 Hematocrit (Bld) [Volume fraction] 32.2 % Low 36.0-48.0 [facility] Comment on above: Performed By: #### L [id number] ####[facility] ([facility])[address] [address] Hemoglobin (Bld) [Mass/Vol] 10.4 g/dL Low 12.0-15.0 [facility] Comment on above: Performed By: #### L [id number] ####[facility] ([facility])[address] [address] Hematocrit (Bld) [Volume fraction] 23.8 % Low 36.0-48.0 [facility] Comment on above: Performed By: #### L [id number] ####[facility] ([facility])[address] [address] Hemoglobin (Bld) [Mass/Vol] 7.8 g/dL Low 12.0-15.0 [facility] Comment on above: Performed By: #### L [id number] ####[facility] ([facility])[address] [place] [address] Hematocrit (Bld) [Volume fraction] 25.2 % Low 36.0-48.0 [facility] Comment on above: Performed By: #### L [id number] ####[facility] ([facility])[address] [place] [address] Hemoglobin (Bld) [Mass/Vol] 8.1 g/dL Low 12.0-15.0 [facility] Comment on above: Performed By: #### L [id number] ####[facility] [place] [address] MAGNESIUMon 03-29-2024 Magnesium [Mass/Vol] 1.8 mg/dL Low 1.9-2.7 [facility] Comment on above: Performed By: #### L [id number] ####[facility] [place] [address] Magnesium [Mass/Vol] 1.9 mg/dL Normal 1.9-2.7 [facility] Comment on above: Performed By: #### L [id number] ####[facility] [place] [address] PHOSPHORUSon 03-29-2024 Magnesium [Mass/Vol] 3.6 mg/dL Normal 2.5-5.0 [facility] Comment on above: Performed By: #### L [id number] ####[facility] ([facility])[address] [place] [address] BASIC METABOLIC PANELon 03-17 Anion gap [Moles/Vol] 9 mmol/L Normal 7-20 [facility] Comment on above: Performed By: #### L [id number] ####[facility] ([facility])[address] [place] [address] Calcium [Mass/Vol] 8.1 mg/dL Low 8.6-10.3 [facility] Comment on above: Performed By: #### L [id number] ####[facility] ([facility])[address] [place] [address] Chloride [Moles/Vol] 107 mmol/L Normal 98-107 [facility] Comment on above: Performed By: #### L [id number] ####[facility] [place] [address] CO2 [Moles/Vol] 26 mmol/L Normal 21-31 [facility] Comment on above: Performed By: #### L [id number] ####[facility] ([facility])[address] [place] [address] Creatinine [Mass/Vol] 0.47 mg/dL Low 0.60-1.20 [facility] Comment on above: Performed By: #### L [id number] ####[facility] [place] [address] GLOMERULAR FILTRATION RATE ML/MIN/1.73 SQ M.PREDICTED 105.6 mL/min/1.73m*2 Normal >60.0 [facility] Comment on above: Result Comment: [facility]???s estimated glomerular filtration rate (eGFR) will [...] of individuals. Performed By: #### L [id number] ####[facility] [place] [address] Glucose [Mass/Vol] 111 mg/dL High 70-100 [facility] Comment on above: Performed By: #### L [id number] ####[facility] ([facility])[address] [place] [address] Potassium [Moles/Vol] 3.8 mmol/L Normal 3.5-5.1 [facility] Comment on above: Performed By: #### L [id number] ####[facility] ([facility])[address] [place] [address] Sodium [Moles/Vol] 138 mmol/L Normal 136-145 [facility] Comment on above: Performed By: #### L [id number] ####[facility] ([facility])[address] [place] [address] Urea nitrogen [Mass/Vol] 24 mg/dL Normal 7-25 [facility] Comment on above: Performed By: #### L [id number] ####[facility] [place] [address] UREA NITROGEN/CREATININE (MASS RATIO) IN SER/PLAS 51.1 Normal [facility] Comment on above: Performed By: #### L [id number] ####[facility] ([facility])[address] [place] [address] CBC WITH AUTO DIFFERENTIALon 03-28-2024 Basophils (Bld) [#/Vol] 0.05 10*3/uL Normal 0.00-0.20 [facility] Comment on above: Performed By: #### L [id number] ####[facility] ([facility])[address] [place] [address] Basophils/100 WBC (Bld) 0.6 % Normal 0.0-1.0 [facility] Comment on above: Performed By: #### L [id number] ####[facility] ([facility])[address] [place] [address] Eosinophils (Bld) [#/Vol] 0.11 10*3/uL Normal 0.00-0.50 [facility] Comment on above: Performed By: #### L [id number] ####[facility] ([facility])[address] [place] [address] Eosinophils/100 WBC (Bld) 1.3 % Normal 0.0-6.0 [facility] Comment on above: Performed By: #### L [id number] ####[facility] [place] [address] Erythrocyte distribution width (RBC) [Ratio] 15.4 % High 11.5-15.0 [facility] Comment on above: Performed By: #### L [id number] ####[facility] [place] [address] ERYTHROCYTE MEAN CORPUSCULAR HEMOGLOBIN CONCENTRATION (G/DL) BY AUTOMATED 32.0 g/dL Normal 32.0-35.0 [facility] Comment on above: Performed By: #### L [id number] ####[facility] [place] [address] Hematocrit (Bld) [Volume fraction] 25.3 % Low 36.0-48.0 [facility] Comment on above: Performed By: #### L [id number] ####[facility] ([facility])[address] [place] [address] Hemoglobin (Bld) [Mass/Vol] 8.1 g/dL Low 12.0-15.0 [facility] Comment on above: Performed By: #### L [id number] ####[facility] ([facility])[address] [place] [address] Immature granulocytes (Bld) [#/Vol] 0.04 10*3/uL Normal 0.00-0.20 [facility] Comment on above: Performed By: #### L [id number] ####[facility] ([facility])[address] [place] [address] Immature granulocytes/100 WBC (Bld) 0.5 % Normal 0.0-1.0 [facility] Comment on above: Performed By: #### L [id number] ####[facility] ([facility])[address] [place] [address] Lymphocytes (Bld) [#/Vol] 1.35 10*3/uL Normal 1.20-4.00 [facility] Comment on above: Performed By: #### L [id number] ####[facility] [place] [address] Lymphocytes/100 WBC (Bld) 15.9 % Low 20.0-45.0 [facility] Comment on above: Performed By: #### L [id number] ####[facility] ([facility])[address] [place] [address] MCH (RBC) [Entitic mass] 30.1 pg Normal 27.0-33.0 [facility] Comment on above: Performed By: #### L [id number] ####[facility] ([facility])[address] [place] [address] MCV (RBC) [Entitic vol] 94.1 fL Normal 82.0-98.0 [facility] Comment on above: Performed By: #### L [id number] ####[facility] [place] [address] Monocytes (Bld) [#/Vol] 0.83 10*3/uL Normal 0.10-1.00 [facility] Comment on above: Performed By: #### L [id number] ####[facility] ([facility])[address] [place] [address] Monocytes/100 WBC (Bld) 9.8 % Normal 5.0-12.0 [facility] Comment on above: Performed By: #### L [id number] ####[facility] ([facility])[address] [place] [address] Neutrophils (Bld) [#/Vol] 6.10 10*3/uL Normal 1.60-7.60 [facility] Comment on above: Performed By: #### L [id number] ####[facility] ([facility])[address] [place] [address] Neutrophils/100 WBC (Bld) 71.9 % Normal 40.0-72.0 [facility] Comment on above: Performed By: #### L [id number] ####[facility] ([facility])[address] [address] NRBC (PER 100 WBCS) BY AUTOMATED COUNT 0.0 % Normal 0 [facility] Comment on above: Performed By: #### L [id number] ####[facility] ([facility])[address] [place] [address] PLATELETS (10*3/UL) IN BLOOD AUTOMATED COUNT 397 10*3/uL Normal 150-400 [facility] Comment on above: Performed By: #### L [id number] ####[facility] ([facility])[address] [place] [address] RBC (Bld) [#/Vol] 2.69 10*6/uL Low 3.80-5.00 [facility] Comment on above: Performed By: #### L [id number] ####[facility] ([facility])[address] [place] [address] WBC (Bld) [#/Vol] 8.48 10*3/uL Normal 4.00-10.60 [facility] Comment on above: Performed By: #### L [id number] ####[facility] ([facility])[address] [place] [address] CONSULTon 03-28-2024 CONSULT Normal [facility] HEMOGLOBIN AND HEMATOCRIT, B LOODon 03-28-2024 Hematocrit (Bld) [Volume fraction] 24.9 % Low 36.0-48.0 [facility] Comment on above: Performed By: #### L [id number] ####[facility] ([facility])[address] [place] [address] Hemoglobin (Bld) [Mass/Vol] 7.9 g/dL Low 12.0-15.0 [facility] Comment on above: Performed By: #### L [id number] ####[facility] ([facility])[address] [place], [place] [address] Hematocrit (Bld) [Volume fraction] 25.7 % Low 36.0-48.0 [facility] Comment on above: Performed By: #### L [id number] ####[facility] ([facility])[address] [place] [address] Hemoglobin (Bld) [Mass/Vol] 8.2 g/dL Low 12.0-15.0 [facility] Comment on above: Performed By: #### L [id number] ####[facility] ([facility])[address] [place] [address] MAGNESIUMon 03-28-2024 Magnesium [Mass/Vol] 1.9 mg/dL Normal 1.9-2.7 [facility] Comment on above: Performed By: #### L [id number] ####[facility] ([facility])[address] [place] [address] PHOSPHORUSon 03-28-2024 Magnesium [Mass/Vol] 3.0 mg/dL Normal 2.5-5.0 [facility] Comment on above: Performed By: #### L [id number] ####[facility] ([facility])[address] [place] [address] 30on 03-27-2024 30 Normal [facility] 30 Normal [facility] 30 Normal [facility] AFB CULTUREon 03-27-2024 AFB CULTURE No growth at 42 days Normal [facility] Comment on above: Performed By: #### L [id number] ####[facility] ([facility])[address] [place] [address] AFB STAIN No acid fast bacilli seen Normal [facility] Comment on above: Performed By: #### L [id number] ####[facility] ([facility])[address] [place] [address] APTTon 03-27-2024 ACTIVATED PARTIAL THROMBOPLASTIN TIME IN PPP BY COAGULATION ASSAY 27.7 Seconds Normal 25.0-35.0 [facility] Comment on above: Result Comment: Clin ical significance of the APTT is questionable in the presence of heparin. Performed By: #### L [id number] ####[facility] ([facility])[address] [place] [address] ACTIVATED PARTIAL THROMBOPLASTIN TIME IN PPP BY COAGULATION ASSAY 31.3 Seconds Normal 25.0-35.0 [facility] Comment on above: Result Comment: Clin ical significance of the APTT is questionable in the presence of heparin. Performed By: #### L [id number] ####[facility] ([facility])[address] [place] [address] B-TYPE NATRIURETIC PEPTIDEon 03-27-2024 Natriuretic peptide B (Bld) [Mass/Vol] 53 pg/mL Normal 0-100 [facility] Comment on above: Performed By: #### L [id number] ####[facility] ([facility])[address] [place] [address] BASIC METABOLIC PANELon 03-17 Anion gap [Moles/Vol] 10 mmol/L Normal 7-20 [facility] Comment on above: Performed By: #### L [id number] ####[facility] ([facility])[address] [place] [address] Calcium [Mass/Vol] 8.2 mg/dL Low 8.6-10.3 [facility] Comment on above: Performed By: #### L [id number] ####[facility] ([facility])[address] [place] [address] Chloride [Moles/Vol] 106 mmol/L Normal 98-107 [facility] Comment on above: Performed By: #### L [id number] ####[facility] ([facility])[address] [place] [address] CO2 [Moles/Vol] 26 mmol/L Normal 21-31 [facility] Comment on above: Performed By: #### L [id number] ####[facility] ([facility])[address] [place] [address] Creatinine [Mass/Vol] 0.51 mg/dL Low 0.60-1.20 [facility] Comment on above: Performed By: #### L [id number] ####[facility] [place] [address] GLOMERULAR FILTRATION RATE ML/MIN/1.73 SQ M.PREDICTED 103.5 mL/min/1.73m*2 Normal >60.0 [facility] Comment on above: Result Comment: [facility]???s estimated glomerular filtration rate (eGFR) will [...] of individuals. Performed By: #### L [id number] ####[facility] ([facility])[address] [place] [address] Glucose [Mass/Vol] 103 mg/dL High 70-100 [facility] Comment on above: Performed By: #### L [id number] ####[facility] ([facility])[address] [place] [address] Potassium [Moles/Vol] 4.0 mmol/L Normal 3.5-5.1 [facility] Comment on above: Performed By: #### L [id number] ####[facility] ([facility])[address] [place] [address] Sodium [Moles/Vol] 138 mmol/L Normal 136-145 [facility] Comment on above: Performed By: #### L [id number] ####[facility] ([facility])[address] [place] [address] Urea nitrogen [Mass/Vol] 26 mg/dL High 7-25 [facility] Comment on above: Performed By: #### L [id number] ####[facility] ([facility])[address] [place] [address] UREA NITROGEN/CREATININE (MASS RATIO) IN SER/PLAS 51.0 Normal [facility] Comment on above: Performed By: #### L [id number] ####[facility] ([facility])[address] [place] [address] BLOOD CULTUREon 03-27-2024 Bacteria identified Cx Nom (Bld) No growth at 5 days Normal [facility] Comment on above: Performed By: #### L [id number] ####[facility] ([facility])[address] [place] [address] Order Comment: From a different site than #1. CALCIUM, IONIZEDon CALCIUM IONIZED (MMOL/L) IN BLOOD 1.24 mmol/L Normal 1.15-1.33 [facility] Comment on above: Performed By: #### C ALCIUM, IONIZED ####[facility] [id number] [place], [place] [address] CALCIUM IONIZED (MMOL/L) IN BLOOD 1.21 mmol/L Normal 1.15-1.33 [facility] Comment on above: Performed By: #### C ALCIUM, IONIZED ####[facility] [id number] [place], [place] [address] CBC WITH AUTO DIFFERENTIALon 03-27-2024 Basophils (Bld) [#/Vol] 0.04 10*3/uL Normal 0.00-0.20 [facility] Comment on above: Performed By: #### L [id number] ####[facility] ([facility])[address] [place] [address] Basophils/100 WBC (Bld) 0.2 % Normal 0.0-1.0 [facility] Comment on above: Performed By: #### L [id number] ####[facility] ([facility])[address] [place] [address] Eosinophils (Bld) [#/Vol] 0.02 10*3/uL Normal 0.00-0.50 [facility] Comment on above: Performed By: #### L [id number] ####[facility] ([facility])[address] [place] [address] Eosinophils/100 WBC (Bld) 0.1 % Normal 0.0-6.0 [facility] Comment on above: Performed By: #### L [id number] ####[facility] ([facility])[address] [place] [address] Erythrocyte distribution width (RBC) [Ratio] 15.1 % High 11.5-15.0 [facility] Comment on above: Performed By: #### L [id number] ####[facility] ([facility])[address] [place] [address] ERYTHROCYTE MEAN CORPUSCULAR HEMOGLOBIN CONCENTRATION (G/DL) BY AUTOMATED 30.1 g/dL Low 32.0-35.0 [facility] Comment on above: Performed By: #### L [id number] ####[facility] ([facility])[address] [place] [address] Hematocrit (Bld) [Volume fraction] 28.2 % Low 36.0-48.0 [facility] Comment on above: Performed By: #### L [id number] ####[facility] ([facility])[address] [place] [address] Hemoglobin (Bld) [Mass/Vol] 8.5 g/dL Low 12.0-15.0 [facility] Comment on above: Performed By: #### L [id number] ####[facility] ([facility])[address] [place] [address] Immature granulocytes (Bld) [#/Vol] 0.16 10*3/uL Normal 0.00-0.20 [facility] Comment on above: Performed By: #### L [id number] ####[facility] ([facility])[address] [place] [address] Immature granulocytes/100 WBC (Bld) 0.8 % Normal 0.0-1.0 [facility] Comment on above: Performed By: #### L [id number] ####[facility] [place] [address] Lymphocytes (Bld) [#/Vol] 0.37 10*3/uL Low 1.20-4.00 [facility] Comment on above: Performed By: #### L [id number] ####[facility] ([facility])[address] [place] [address] Lymphocytes/100 WBC (Bld) 1.9 % Low 20.0-45.0 [facility] Comment on above: Performed By: #### L [id number] ####[facility] ([facility])[address] [place] [address] MCH (RBC) [Entitic mass] 29.4 pg Normal 27.0-33.0 [facility] Comment on above: Performed By: #### L [id number] ####[facility] ([facility])[address] [place] [address] MCV (RBC) [Entitic vol] 97.6 fL Normal 82.0-98.0 [facility] Comment on above: Performed By: #### L [id number] ####[facility] ([facility])[address] [place] [address] Monocytes (Bld) [#/Vol] 0.31 10*3/uL Normal 0.10-1.00 [facility] Comment on above: Performed By: #### L [id number] ####[facility] ([facility])[address] [place] [address] Monocytes/100 WBC (Bld) 1.6 % Low 5.0-12.0 [facility] Comment on above: Performed By: #### L [id number] ####[facility] ([facility])[address] [place] [address] Neutrophils (Bld) [#/Vol] 18.90 10*3/uL High 1.60-7.60 [facility] Comment on above: Performed By: #### L [id number] ####[facility] ([facility])[address] [place] [address] Neutrophils/100 WBC (Bld) 95.4 % High 40.0-72.0 [facility] Comment on above: Performed By: #### L [id number] ####[facility] ([facility])[address] [address] NRBC (PER 100 WBCS) BY AUTOMATED COUNT 0.0 % Normal 0 [facility] Comment on above: Performed By: #### L [id number] ####[facility] ([facility])[address] [address] PLATELETS (10*3/UL) IN BLOOD AUTOMATED COUNT 399 10*3/uL Normal 150-400 [facility] Comment on above: Performed By: #### L [id number] ####[facility] ([facility])[address] [place] [address] RBC (Bld) [#/Vol] 2.89 10*6/uL Low 3.80-5.00 [facility] Comment on above: Performed By: #### L [id number] ####[facility] [facility])[address] [address] WBC (Bld) [#/Vol] 19.80 10*3/uL High 4.00-10.60 [facility] Comment on above: Performed By: #### L [id number] ####[facility] ([facility])[address] [place], [place] [address] COMPREHENSIVE METABOLIC PANE Flash 03-27-2024 Albumin [Mass/Vol] 3.2 g/dL Low 3.5-5.7 [facility] Comment on above: Performed By: #### L [id number] ####[facility] ([facility])[address] [place] [address] ALP [Catalytic activity/Vol] 43 U/L Normal 34-104 [facility] Comment on above: Performed By: #### L [id number] ####[facility] ([facility])[address] [place] [address] ALT [Catalytic activity/Vol] 11 U/L Normal 7-52 [facility] Comment on above: Performed By: #### L [id number] ####[facility] ([facility])[address] [place] [address] Anion gap [Moles/Vol] 10 mmol/L Normal 7-20 [facility] Comment on above: Performed By: #### L [id number] ####[facility] ([facility])[address] [place] [address] AST [Catalytic activity/Vol] 17 U/L Normal 13-39 [facility] Comment on above: Performed By: #### L [id number] ####[facility] ([facility])[address] [place] [address] Bilirubin [Mass/Vol] 0.4 mg/dL Normal 0.3-1.0 [facility] Comment on above: Performed By: #### L [id number] ####[facility] ([facility])[address] [place] [address] Calcium [Mass/Vol] 8.1 mg/dL Low 8.6-10.3 [facility] Comment on above: Performed By: #### L [id number] ####[facility] ([facility])[address] [place] [address] Chloride [Moles/Vol] 104 mmol/L Normal 98-107 [facility] Comment on above: Performed By: #### L [id number] ####[facility] ([facility])[address] [place] [address] CO2 [Moles/Vol] 26 mmol/L Normal 21-31 [facility] Comment on above: Performed By: #### L [id number] ####[facility] ([facility])[address] [place] [address] Creatinine [Mass/Vol] 0.54 mg/dL Low 0.60-1.20 [facility] Comment on above: Performed By: #### L [id number] ####[facility] ([facility])[address] [place] [address] GLOMERULAR FILTRATION RATE ML/MIN/1.73 SQ M.PREDICTED 102.1 mL/min/1.73m*2 Normal >60.0 [facility] Comment on above: Result Comment: [facility]???s estimated glomerular filtration rate (eGFR) [...] of individuals. Performed By: #### L [id number] ####[facility] [place] [address] Glucose [Mass/Vol] 176 mg/dL High 70-100 [facility] Comment on above: Performed By: #### L [id number] ####[facility] ([facility])[address] [place] [address] Potassium [Moles/Vol] 4.4 mmol/L Normal 3.5-5.1 [facility] Comment on above: Performed By: #### L [id number] ####[facility] [place] [address] Protein [Mass/Vol] 6.5 g/dL Normal 6.0-8.3 [facility] Comment on above: Performed By: #### L [id number] ####[facility] [place] [address] Sodium [Moles/Vol] 136 mmol/L Normal 136-145 [facility] Comment on above: Performed By: #### L [id number] ####[facility] ([facility])[address] [place] [address] Urea nitrogen [Mass/Vol] 34 mg/dL High 7-25 [facility] Comment on above: Performed By: #### L [id number] ####[facility] ([facility])[address] [place] [address] UREA NITROGEN/CREATININE (MASS RATIO) IN SER/PLAS 63.0 Normal [facility] Comment on above: Performed By: #### L [id number] ####[facility] ([facility])[address] [place] [address] FUNGAL CULTUREon 03-27-2024 FUNGAL SMEAR No yeast or fungal e lements seen Normal [facility] Comment on above: Performed By: #### L [id number] ####[facility] ([facility])[address] [place] [address] HEMOGLOBIN AND HEMATOCRIT, B LOODon 03-27-2024 Hematocrit (Bld) [Volume fraction] 22.1 % Low 36.0-48.0 [facility] Comment on above: Performed By: #### L [id number] ####[facility] ([facility])[address] [place] [address] Hemoglobin (Bld) [Mass/Vol] 6.9 g/dL Low 12.0-15.0 [facility] Comment on above: Performed By: #### L [id number] ####[facility] ([facility])[address] [place] [address] Hematocrit (Bld) [Volume fraction] 24.1 % Low 36.0-48.0 [facility] Comment on above: Performed By: #### L [id number] ####[facility] ([facility])[address] [place] [address] Hemoglobin (Bld) [Mass/Vol] 7.5 g/dL Low 12.0-15.0 [facility] Comment on above: Performed By: #### L [id number] ####[facility] ([facility])[address] [place] [address] Hematocrit (Bld) [Volume fraction] 24.4 % Low 36.0-48.0 [facility] Comment on above: Performed By: #### L [id number] ####[facility] ([facility])[address] [place] [address] Hemoglobin (Bld) [Mass/Vol] 7.6 g/dL Low 12.0-15.0 [facility] Comment on above: Performed By: #### L [id number] ####[facility] ([facility])[address] [place] [address] Hematocrit (Bld) [Volume fraction] 25.4 % Low 36.0-48.0 [facility] Comment on above: Performed By: #### L [id number] ####[facility] ([facility])[address] [address] Hemoglobin (Bld) [Mass/Vol] 8.0 g/dL Low 12.0-15.0 [facility] Comment on above: Performed By: #### L [id number] ####[facility] ([facility])[address] [address] HPon 03-27-2024 HP Normal [facility] LACTIC ACID WITH 4 HOUR REFL EXon 03-27-2024 LACTATE (MMOL/L) IN SER/PLAS 0.7 mmol/L Normal 0.5-2.2 [facility] Comment on above: Performed By: #### L [id number] ####[facility] ([facility])[address] [place] [address] LACTATE (MMOL/L) IN SER/PLAS 1.3 mmol/L Normal 0.5-2.2 [facility] Comment on above: Performed By: #### L [id number] ####[facility] ([facility])[address] [address] MAGNESIUMon 03-27-2024 Magnesium [Mass/Vol] 1.8 mg/dL Low 1.9-2.7 [facility] Comment on above: Performed By: #### L [id number] ####[facility] ([facility])[address] [place] [address] PHOSPHORUSon 03-27-2024 Magnesium [Mass/Vol] 4.0 mg/dL Normal 2.5-5.0 [facility] Comment on above: Performed By: #### L [id number] ####[facility] ([facility])[address] [place] [address] POTASSIUM, WHOLE BLOODon Potassium [Moles/Vol] 4.1 mmol/L Normal 3.5-5.1 [facility] Comment on above: Performed By: #### P OTASSIUM, WHOLE BLOOD ####[facility] [id number] [place] [address] [facility] Potassium [Moles/Vol] 4.9 mmol/L Normal 3.5-5.1 [facility] Comment on above: Performed By: #### P OTASSIUM, WHOLE BLOOD ####[facility] [id number] [place] [address] [facility] PROCALCITONIN TESTon 024 PROCALCITONIN IN BLOOD 0.08 ng/mL Normal 0.00-0.10 [facility] Comment on above: Result Comment: Rebeca tor triglycerides while patient is on propofol Performed By: #### L [id number] ####[facility] ([facility])[address] [place] [address] PROTIME-INRon 03-27-2024 INR IN PPP BY COAGULATION ASSAY 1.16 High 0.90-1.10 [facility] Comment on above: Result Comment: ACCC [...] 1995;108:[id number]. Performed By: #### L [id number] ####[facility] ([facility])[address] [place] [address] PROTHROMBIN TIME (PT) IN PPP BY COAGULATION ASSAY 14.8 Seconds Normal 12.3-14.8 [facility] Comment on above: Performed By: #### L [id number] ####[facility] [place] [address] INR IN PPP BY COAGULATION ASSAY 1.41 High 0.90-1.10 [facility] Comment on above: Result Comment: ACCC [...] 1995;108:[id number]. Performed By: #### L [id number] ####[facility] [place] [address] PROTHROMBIN TIME (PT) IN PPP BY COAGULATION ASSAY 17.1 Seconds High 12.3-14.8 [facility] Comment on above: Performed By: #### L [id number] ####[facility] ([facility])[address] [place] [address] RESPIRATORY CULTUREon 2023 Bacteria identified Cx Nom (Unsp spec) 1,000 CFU/mL Colonies Consistent with Upper Respiratory Li Normal [facility] Comment on above: Performed By: #### L [id number] ####[facility] ([facility])[address] [place] [address] GRAM STAIN RESULT Normal [facility] Comment on above: Result Comment: Few Polymorphonuclear leukocytesNo organisms seen Performed By: #### L [id number] ####[facility] ([facility])[address] [facility] [address] SODIUM, WHOLE BLOODon 2023 SODIUM, WHOLE BLOOD 138 Normal 136-145 [facility] Comment on above: Performed By: #### S ODIUM, WHOLE BLOOD ####[facility] [id number] [place] [address] [place] SODIUM, WHOLE BLOOD 137 Normal 136-145 [facility] Comment on above: Performed By: #### S ODIUM, WHOLE BLOOD ####[facility] [id number] [place] [address] [place] TRIGLYCERIDESon 03-27-2024 FASTING? unknown Normal [facility] Comment on above: Order Comment: Monit or triglycerides while patient is on propofol. Consult Nutrition if greater than 500 mg/dL. Performed By: #### L [id number] ####[facility] ([facility])[address] [place] [address] Magnesium [Mass/Vol] 50 mg/dL Normal 40-149 [facility] Comment on above: Order Comment: Monit or triglycerides while patient is on propofol. Consult Nutrition if greater than 500 mg/dL. Result Comment: TRIG LYCERIDE REFERENCE RANGE:20 YEARS AND OLDER CARDIOVASCULAR RISKLESS THAN 150 mg/dL LOW [id number] TO 199 mg/dL BORDERLINE [id number] mg/dL AND GREATER HIGH RISK Performed By: #### L [id number] ####[facility] ([facility])[address] [place] [address] TROPONIN Ion 03-27-2024 Troponin I.cardiac [Mass/Vol] 0.02 ng/mL Normal 0.00-0.04 [facility] Comment on above: Performed By: #### L [id number] ####[facility] ([facility])[address] [place] [address] TYPE AND SCREENon 03-27-2024 AB SCREEN Negative Normal [facility] Comment on above: Performed By: #### L [id number] ####[facility], ABO group Nom (Bld) A Normal [facility] Comment on above: Performed By: #### L [id number] ####[facility], RH TYPE IN BLOOD Negative Normal [facility] Comment on above: Performed By: #### L [id number] ####[facility], VENOUS BLOOD GAS WITH IONIZE D CALCIUMon 03-27-2024 Base excess Calc (BldV) [Moles/Vol] 2.1 mmol/L Normal [facility] Comment on above: Performed By: #### L [id number] ####[facility] [id number] [place] [address] [place] CALCIUM IONIZED (MMOL/L) IN BLOOD 1.21 mmol/L Normal 1.15-1.33 [facility] Comment on above: Performed By: #### L [id number] ####[facility] [id number] [place] [address] [place] CO2 (BldV) [Partial pressure] 61 mm[Hg] High 40-50 [facility] Comment on above: Performed By: #### L [id number] ####[facility] [id number] [place] [address] [place] HCO3 (Bld) [Moles/Vol] 29.3 mmol/L Normal [facility] Comment on above: Performed By: #### L [id number] ####[facility] [id number] [place] [address] [place] Oxygen (BldV) [Partial pressure] 55 mm[Hg] High 35-45 [facility] Comment on above: Performed By: #### L [id number] ####[facility] RES[facility] [id number] [place] [address] [place] OXYGEN SATURATION (%) IN VENOUS BLOOD 83.8 % High 65.0-75.0 [facility] Comment on above: Performed By: #### L [id number] ####[facility] RES[facility]IR[facility] [id number] [place] [address] [facility] PH OF VENOUS BLOOD 7.29 Low 7.31-7.41 [facility] Comment on above: Performed By: #### L [id number] ####[facility] [id number] [place] [address] [place] 30on 03-26-2024 30 Normal [facility] ANTI-XA (HEPARIN LEVEL)on HEPARIN UNFRACTIONATED (U/ML) IN PPP BY CHROMOGENIC METHOD >1.00 Critically high 0.3-0.7 [facility] Comment on above: Order Comment: Check anti-Xa level every 6 hours while on heparin infusion, or per protocol. Result Comment: [place] roxaban and Apixaban will interfere with the anti Xa assay used to monitor UFH and LMWH. Performed By: #### L [id number] ####[facility] ([facility])[address] [place] [address] COMPREHENSIVE METABOLIC PANE Flash 03-26-2024 Albumin [Mass/Vol] 3.4 g/dL Low 3.5-5.7 [facility] Comment on above: Performed By: #### L [id number] ####[facility] ([facility])[address] [place] [address] ALP [Catalytic activity/Vol] 39 U/L Normal 34-104 [facility] Comment on above: Performed By: #### L [id number] ####[facility] ([facility])[address] [place] [address] ALT [Catalytic activity/Vol] 10 U/L Normal 7-52 [facility] Comment on above: Performed By: #### L [id number] ####[facility] ([facility])[address] [place] [address] Anion gap [Moles/Vol] 11 mmol/L Normal 7-20 [facility] Comment on above: Performed By: #### L [id number] ####[facility] ([facility])[address] [place] [address] AST [Catalytic activity/Vol] 19 U/L Normal 13-39 [facility] Comment on above: Performed By: #### L [id number] ####[facility] ([facility])[address] [place] [address] Bilirubin [Mass/Vol] 0.4 mg/dL Normal 0.3-1.0 [facility] Comment on above: Performed By: #### L [id number] ####[facility] ([facility])[address] [place] [address] Calcium [Mass/Vol] 9.0 mg/dL Normal 8.6-10.3 [facility] Comment on above: Performed By: #### L [id number] ####[facility] ([facility])[address] [place] [address] Chloride [Moles/Vol] 101 mmol/L Normal 98-107 [facility] Comment on above: Performed By: #### L [id number] ####[facility] ([facility])[address] [place] [address] CO2 [Moles/Vol] 28 mmol/L Normal 21-31 [facility] Comment on above: Performed By: #### L [id number] ####[facility] ([facility])[address] [place] [address] Creatinine [Mass/Vol] 0.46 mg/dL Low 0.60-1.20 [facility] Comment on above: Performed By: #### L [id number] ####[facility] ([facility])[address] [place] [address] GLOMERULAR FILTRATION RATE ML/MIN/1.73 SQ M.PREDICTED 106.1 mL/min/1.73m*2 Normal >60.0 [facility] Comment on above: Result Comment: [facility]???s estimated glomerular filtration rate (eGFR) will [...] of individuals. Performed By: #### L [id number] ####[facility] ([facility])[address] [place] [address] Glucose [Mass/Vol] 115 mg/dL High 70-100 [facility] Comment on above: Performed By: #### L [id number] ####[facility] ([facility])[address] [place] [address] Potassium [Moles/Vol] 4.0 mmol/L Normal 3.5-5.1 [facility] Comment on above: Performed By: #### L [id number] ####[facility] ([facility])[address] [place] [address] Protein [Mass/Vol] 6.9 g/dL Normal 6.0-8.3 [facility] Comment on above: Performed By: #### L [id number] ####[facility] ([facility])[address] [place] [address] Sodium [Moles/Vol] 136 mmol/L Normal 136-145 [facility] Comment on above: Performed By: #### L [id number] ####[facility] ([facility])[address] [place] [address] Urea nitrogen [Mass/Vol] 17 mg/dL Normal 7-25 [facility] Comment on above: Performed By: #### L [id number] ####[facility] ([facility])[address] [place] [address] UREA NITROGEN/CREATININE (MASS RATIO) IN SER/PLAS 37.0 [facility] Comment on above: Performed By: #### L [id number] ####[facility] ([facility])[address] [place] [address] DSon 03-26-2024 DS [facility] NURSNOTEon 03-26-2024 NURSNOTE [facility] NURSNOTE [employer] Specialist received a ca ll from lab for a critical heparin greater than 1.0 and PTT of 32. The patient is no longer on the heparin drip. [facility] 30on 03-25-2024 30 [facility] 30 [facility] ANTI-XA (HEPARIN LEVEL)on HEPARIN UNFRACTIONATED (U/ML) IN PPP BY CHROMOGENIC METHOD 0.24 IU/mL Low 0.3-0.7 [facility] Comment on above: Order Comment: Check anti-Xa level every 6 hours while on heparin infusion, or per protocol. Result Comment: [place] roxaban and Apixaban will interfere with the anti Xa assay used to monitor UFH and LMWH. Performed By: #### L [id number] ####[facility] ([facility])[address] [place] [address] HEPARIN UNFRACTIONATED (U/ML) IN PPP BY CHROMOGENIC METHOD 0.10 IU/mL Invalid Interpretation Code 0.3-0.7 [facility] Comment on above: Order Comment: Check anti-Xa level every 6 hours while on heparin infusion, or per protocol. Result Comment: [place] roxaban and Apixaban will interfere with the anti Xa assay used to monitor UFH and LMWH. Performed By: #### L [id number] ####[facility] ([facility])[address] [place] [address] BASIC METABOLIC PANELon Anion gap [Moles/Vol] 13 mmol/L Normal 7-20 [facility] Comment on above: Performed By: #### L [id number] ####[facility] ([facility])[address] [place] [address] Calcium [Mass/Vol] 9.4 mg/dL Normal 8.6-10.3 [facility] Comment on above: Performed By: #### L [id number] ####[facility] ([facility])[address] [place] [address] Chloride [Moles/Vol] 100 mmol/L Normal 98-107 [facility] Comment on above: Performed By: #### L [id number] ####[facility] ([facility])[address] [place] [address] CO2 [Moles/Vol] 27 mmol/L Normal 21-31 [facility] Comment on above: Performed By: #### L [id number] ####[facility] [place] [address] Creatinine [Mass/Vol] 0.52 mg/dL Low 0.60-1.20 [facility] Comment on above: Performed By: #### L [id number] ####[facility] ([facility])[address] [place] [address] GLOMERULAR FILTRATION RATE ML/MIN/1.73 SQ M.PREDICTED 103.0 mL/min/1.73m*2 Normal >60.0 [facility] Comment on above: Result Comment: [facility]???s estimated glomerular filtration rate (eGFR) will [...] of individuals. Performed By: #### L [id number] ####[facility] [place] [address] Glucose [Mass/Vol] 109 mg/dL High 70-100 [facility] Comment on above: Performed By: #### L [id number] ####[facility] ([facility])[address] [place] [address] Potassium [Moles/Vol] 4.6 mmol/L Normal 3.5-5.1 [facility] Comment on above: Performed By: #### L [id number] ####[facility] [place] [address] Sodium [Moles/Vol] 135 mmol/L Low 136-145 [facility] Comment on above: Performed By: #### L [id number] ####[facility] [place] [address] Urea nitrogen [Mass/Vol] 22 mg/dL Normal 7-25 [facility] Comment on above: Performed By: #### L [id number] ####[facility] [place] [address] UREA NITROGEN/CREATININE (MASS RATIO) IN SER/PLAS 42.3 Normal [facility] Comment on above: Performed By: #### L [id number] ####[facility] ([facility])[address] [place] [address] CBCon 03-25-2024 Erythrocyte distribution width (RBC) [Ratio] 14.6 % Normal 11.5-15.0 [facility] Comment on above: Performed By: #### L [id number] ####[facility] ([facility])[address] [place] [address] ERYTHROCYTE MEAN CORPUSCULAR HEMOGLOBIN CONCENTRATION (G/DL) BY AUTOMATED 31.3 g/dL Low 32.0-35.0 [facility] Comment on above: Performed By: #### L [id number] ####[facility] [place] [address] Hematocrit (Bld) [Volume fraction] 33.5 % Low 36.0-48.0 [facility] Comment on above: Performed By: #### L [id number] ####[facility] [place] [address] Hemoglobin (Bld) [Mass/Vol] 10.5 g/dL Low 12.0-15.0 [facility] Comment on above: Performed By: #### L [id number] ####[facility] ([facility])[address] [place] [address] MCH (RBC) [Entitic mass] 29.6 pg Normal 27.0-33.0 [facility] Comment on above: Performed By: #### L [id number] ####[facility] ([facility])[address] [place] [address] MCV (RBC) [Entitic vol] 94.4 fL Normal 82.0-98.0 [facility] Comment on above: Performed By: #### L [id number] ####[facility] [address] PLATELETS (10*3/UL) IN BLOOD AUTOMATED COUNT 321 10*3/uL Normal 150-400 [facility] Comment on above: Performed By: #### L [id number] ####[facility] ([facility])[address] [address] RBC (Bld) [#/Vol] 3.55 10*6/uL Low 3.80-5.00 [facility] Comment on above: Performed By: #### L [id number] ####[facility] ([facility])[address] [address] WBC (Bld) [#/Vol] 8.51 10*3/uL Normal 4.00-10.60 [facility] Comment on above: Performed By: #### L [id number] ####[facility] ([facility])[address] [address] Erythrocyte distribution width (RBC) [Ratio] 14.5 % Normal 11.5-15.0 [facility] Comment on above: Performed By: #### L [id number] ####[facility] [address] ERYTHROCYTE MEAN CORPUSCULAR HEMOGLOBIN CONCENTRATION (G/DL) BY AUTOMATED 30.7 g/dL Low 32.0-35.0 [facility] Comment on above: Performed By: #### L [id number] ####[facility], [place] [address] Hematocrit (Bld) [Volume fraction] 28.3 % Low 36.0-48.0 [facility] Comment on above: Performed By: #### L [id number] ####[facility] [place] [address] Hemoglobin (Bld) [Mass/Vol] 8.7 g/dL Low 12.0-15.0 [facility] Comment on above: Performed By: #### L [id number] ####[facility] ([facility])[address] [address] MCH (RBC) [Entitic mass] 28.8 pg Normal 27.0-33.0 [facility] Comment on above: Performed By: #### L [id number] ####[facility] ([facility])[address] [place] [address] MCV (RBC) [Entitic vol] 93.7 fL Normal 82.0-98.0 [facility] Comment on above: Performed By: #### L [id number] ####[facility] ([facility])[address] [place] [address] PLATELETS (10*3/UL) IN BLOOD AUTOMATED COUNT 350 10*3/uL Normal 150-400 [facility] Comment on above: Performed By: #### L [id number] ####[facility] ([facility])[address] [place] [address] RBC (Bld) [#/Vol] 3.02 10*6/uL Low 3.80-5.00 [facility] Comment on above: Performed By: #### L [id number] ####[facility] ([facility])[address] [place] [address] WBC (Bld) [#/Vol] 6.83 10*3/uL Normal 4.00-10.60 [facility] Comment on above: Performed By: #### L [id number] ####[facility] ([facility])[address] [place] [address] COMPREHENSIVE METABOLIC PANE Flash 03-25-2024 Albumin [Mass/Vol] 3.2 g/dL Low 3.5-5.7 [facility] Comment on above: Performed By: #### L [id number] ####[facility] ([facility])[address] [place] [address] ALP [Catalytic activity/Vol] 41 U/L Normal 34-104 [facility] Comment on above: Performed By: #### L [id number] ####[facility] ([facility])[address] [place] [address] ALT [Catalytic activity/Vol] 13 U/L Normal 7-52 [facility] Comment on above: Performed By: #### L [id number] ####[facility] [place] [address] Anion gap [Moles/Vol] 10 mmol/L Normal 7-20 [facility] Comment on above: Performed By: #### L [id number] ####[facility] [place] [address] AST [Catalytic activity/Vol] 19 U/L Normal 13-39 [facility] Comment on above: Performed By: #### L [id number] ####[facility] ([facility])[address] [place] [address] Bilirubin [Mass/Vol] 0.3 mg/dL Normal 0.3-1.0 [facility] Comment on above: Performed By: #### L [id number] ####[facility] [place] [address] Calcium [Mass/Vol] 8.6 mg/dL Normal 8.6-10.3 [facility] Comment on above: Performed By: #### L [id number] ####[facility] ([facility])[address] [place] [address] Chloride [Moles/Vol] 101 mmol/L Normal 98-107 [facility] Comment on above: Performed By: #### L [id number] ####[facility] ([facility])[address] [place] [address] CO2 [Moles/Vol] 30 mmol/L Normal 21-31 [facility] Comment on above: Performed By: #### L [id number] ####[facility] ([facility])[address] [place] [address] Creatinine [Mass/Vol] 0.49 mg/dL Low 0.60-1.20 [facility] Comment on above: Performed By: #### L [id number] ####[facility] ([facility])[address] [place] [address] GLOMERULAR FILTRATION RATE ML/MIN/1.73 SQ M.PREDICTED 104.5 mL/min/1.73m*2 Normal >60.0 [facility] Comment on above: Result Comment: [facility]???s estimated glomerular filtration rate (eGFR) will [...] of individuals. Performed By: #### L [id number] ####[facility] ([facility])[address] [place] [address] Glucose [Mass/Vol] 108 mg/dL High 70-100 [facility] Comment on above: Performed By: #### L [id number] ####[facility] ([facility])[address] [place] [address] Potassium [Moles/Vol] 4.2 mmol/L Normal 3.5-5.1 [facility] Comment on above: Performed By: #### L [id number] ####[facility] ([facility])[address] [place] [address] Protein [Mass/Vol] 6.5 g/dL Normal 6.0-8.3 [facility] Comment on above: Performed By: #### L [id number] ####[facility] ([facility])[address] [place] [address] Sodium [Moles/Vol] 137 mmol/L Normal 136-145 [facility] Comment on above: Performed By: #### L [id number] ####[facility] ([facility])[address] [place] [address] Urea nitrogen [Mass/Vol] 22 mg/dL Normal 7-25 [facility] Comment on above: Performed By: #### L [id number] ####[facility] ([facility])[address] [place] [address] UREA NITROGEN/CREATININE (MASS RATIO) IN SER/PLAS 44.9 Normal [facility] Comment on above: Performed By: #### L [id number] ####[facility] ([facility])[address] [place] [address] IMMUNOFIXATION ELECTROPHORES Monika 03-25-2024 IMMUNOFIXATION ELECTROPHORESIS 1 See attached report [facility] Comment on above: Performed By: #### L [id number] ####[facility] ([facility])[address] [place] [address] Magnesium [Mass/Vol] 1450 mg/dL Normal 591-1540 [facility] Comment on above: Performed By: #### L [id number] ####[facility] ([facility])[address] [place] [address] Magnesium [Mass/Vol] 633 mg/dL High 60-413 [facility] Comment on above: Performed By: #### L [id number] ####[facility] ([facility])[address] [place] [address] Magnesium [Mass/Vol] 116 mg/dL Normal 54-285 [facility] Comment on above: Performed By: #### L [id number] ####[facility] ([facility])[address] [place] [address] KAPPA / LAMBDA LIGHT CHAINS, FREEon 03-25-2024 IMMUNOGLOBULIN LIGHT CHAINS KAPPA/LAMBDA (MASS RATIO) IN SERUM 1.29 Normal 0.22-1.74 [facility] Comment on above: Result Comment: Test Performed by [employer] [address] [place] [address] - Released 03/25/2024 18:34 Performed By: #### L [id number] ####[facility] [place] [address] IMMUNOGLOBULIN LIGHT CHAINS.KAPPA (MG/DL) IN SERUM 51.3 mg/L High <20.8 [facility] Comment on above: Result Comment: Perf ormed using Diazyme reagent on [employer]. Results obtained with different assay methods cannot be used interchangeably. Performed By: #### L [id number] ####[facility] [place] [address] IMMUNOGLOBULIN LIGHT CHAINS.LAMBDA (MG/DL) IN SERUM 39.9 mg/L High 4.2-27.7 [facility] Comment on above: Result Comment: Perf ormed using D[employer] reagent on [employer]. Results obtained with different assay methods cannot be used interchangeably. Performed By: #### L [id number] ####[facility] [place] [address] MAGNESIUMon 03-25-2024 Magnesium [Mass/Vol] 1.8 mg/dL Low 1.9-2.7 [facility] Comment on above: Performed By: #### L [id number] ####[facility] ([facility])[address] [place] [address] PROTEIN ELECTROPHORESIS, SER UMon 03-25-2024 Protein [Mass/Vol] 7.1 g/dL Normal 6.0-8.3 [facility] Comment on above: Performed By: #### L [id number] ####[facility] ([facility])[address] [place] [address] PROTEIN FRACTION (INTERPRETATION) IN SER/PLAS BY ELECTROPHORESIS See attached report Normal [facility] Comment on above: Performed By: #### L [id number] ####[facility] ([facility])[address] [place] [address] 30on 03-24-2024 30 Normal [facility] APTTon 03-24-2024 ACTIVATED PARTIAL THROMBOPLASTIN TIME IN PPP BY COAGULATION ASSAY 27.4 Seconds Normal 25.0-35.0 [facility] Comment on above: Order Comment: Basel ine aPTT before initiating heparin infusion. Result Comment: Clin ical significance of the APTT is questionable in the presence of heparin. Performed By: #### L [id number] ####[facility] [place] [address] CBC WITH AUTO DIFFERENTIALon 03-24-2024 Basophils (Bld) [#/Vol] 0.04 10*3/uL Normal 0.00-0.20 [facility] Comment on above: Performed By: #### L [id number] ####[facility] ([facility])[address] [place] [address] Basophils/100 WBC (Bld) 0.6 % Normal 0.0-1.0 [facility] Comment on above: Performed By: #### L [id number] ####[facility] ([facility])[address] [place] [address] Eosinophils (Bld) [#/Vol] 0.25 10*3/uL Normal 0.00-0.50 [facility] Comment on above: Performed By: #### L [id number] ####[facility] ([facility])[address] [place] [address] Eosinophils/100 WBC (Bld) 3.5 % Normal 0.0-6.0 [facility] Comment on above: Performed By: #### L [id number] ####[facility] ([facility])[address] [place] [address] Erythrocyte distribution width (RBC) [Ratio] 14.5 % Normal 11.5-15.0 [facility] Comment on above: Performed By: #### L [id number] ####[facility] [place] [address] ERYTHROCYTE MEAN CORPUSCULAR HEMOGLOBIN CONCENTRATION (G/DL) BY AUTOMATED 30.7 g/dL Low 32.0-35.0 [facility] Comment on above: Performed By: #### L [id number] ####[facility] ([facility])[address] [place] [address] Hematocrit (Bld) [Volume fraction] 27.4 % Low 36.0-48.0 [facility] Comment on above: Performed By: #### L [id number] ####[facility] ([facility])[address] [place] [address] Hemoglobin (Bld) [Mass/Vol] 8.4 g/dL Low 12.0-15.0 [facility] Comment on above: Performed By: #### L [id number] ####[facility] ([facility])[address] [place] [address] Immature granulocytes (Bld) [#/Vol] 0.04 10*3/uL Normal 0.00-0.20 [facility] Comment on above: Performed By: #### L [id number] ####[facility] ([facility])[address] [place] [address] Immature granulocytes/100 WBC (Bld) 0.6 % Normal 0.0-1.0 [facility] Comment on above: Performed By: #### L [id number] ####[facility] ([facility])[address] [place] [address] Lymphocytes (Bld) [#/Vol] 0.93 10*3/uL Low 1.20-4.00 [facility] Comment on above: Performed By: #### L [id number] ####[facility] ([facility])[address] [place] [address] Lymphocytes/100 WBC (Bld) 12.9 % Low 20.0-45.0 [facility] Comment on above: Performed By: #### L [id number] ####[facility] ([facility])[address] [place] [address] MCH (RBC) [Entitic mass] 29.5 pg Normal 27.0-33.0 [facility] Comment on above: Performed By: #### L [id number] ####[facility] ([facility])[address] [place] [address] MCV (RBC) [Entitic vol] 96.1 fL Normal 82.0-98.0 [facility] Comment on above: Performed By: #### L [id number] ####[facility] ([facility])[address] [place] [address] Monocytes (Bld) [#/Vol] 0.57 10*3/uL Normal 0.10-1.00 [facility] Comment on above: Performed By: #### L [id number] ####[facility] ([facility])[address] [place] [address] Monocytes/100 WBC (Bld) 7.9 % Normal 5.0-12.0 [facility] Comment on above: Performed By: #### L [id number] ####[facility] ([facility])[address] [place] [address] Neutrophils (Bld) [#/Vol] 5.39 10*3/uL Normal 1.60-7.60 [facility] Comment on above: Performed By: #### L [id number] ####[facility] ([facility])[address] [place] [address] Neutrophils/100 WBC (Bld) 74.5 % High 40.0-72.0 [facility] Comment on above: Performed By: #### L [id number] ####[facility] ([facility])[address] [place] [address] NRBC (PER 100 WBCS) BY AUTOMATED COUNT 0.0 % Normal 0 [facility] Comment on above: Performed By: #### L [id number] ####[facility] ([facility])[address] [place] [address] PLATELETS (10*3/UL) IN BLOOD AUTOMATED COUNT 303 10*3/uL Normal 150-400 [facility] Comment on above: Performed By: #### L [id number] ####[facility] ([facility])[address] [place] [address] RBC (Bld) [#/Vol] 2.85 10*6/uL Low 3.80-5.00 [facility] Comment on above: Performed By: #### L [id number] ####[facility] [place] [address] WBC (Bld) [#/Vol] 7.22 10*3/uL Normal 4.00-10.60 [facility] Comment on above: Performed By: #### L [id number] ####[facility] ([facility])[address] [place] [address] COMPREHENSIVE METABOLIC PANE Flash 03-24-2024 Albumin [Mass/Vol] 3.0 g/dL Low 3.5-5.7 [facility] Comment on above: Performed By: #### L [id number] ####[facility] [place] [address] ALP [Catalytic activity/Vol] 39 U/L Normal 34-104 [facility] Comment on above: Performed By: #### L [id number] ####[facility] [place] [address] ALT [Catalytic activity/Vol] 13 U/L Normal 7-52 [facility] Comment on above: Performed By: #### L [id number] ####[facility] [place] [address] Anion gap [Moles/Vol] 8 mmol/L Normal 7-20 [facility] Comment on above: Performed By: #### L [id number] ####[facility] [place] [address] AST [Catalytic activity/Vol] 20 U/L Normal 13-39 [facility] Comment on above: Performed By: #### L [id number] ####[facility] [place] [address] Bilirubin [Mass/Vol] 0.3 mg/dL Normal 0.3-1.0 [facility] Comment on above: Performed By: #### L [id number] ####[facility] [place] [address] Calcium [Mass/Vol] 8.6 mg/dL Normal 8.6-10.3 [facility] Comment on above: Performed By: #### L [id number] ####[facility] ([facility])[address] [place] [address] Chloride [Moles/Vol] 106 mmol/L Normal 98-107 [facility] Comment on above: Performed By: #### L [id number] ####[facility] [place] [address] CO2 [Moles/Vol] 30 mmol/L Normal 21-31 [facility] Comment on above: Performed By: #### L [id number] ####[facility] ([facility])[address] [place] [address] Creatinine [Mass/Vol] 0.42 mg/dL Low 0.60-1.20 [facility] Comment on above: Performed By: #### L [id number] ####[facility] [place] [address] GLOMERULAR FILTRATION RATE ML/MIN/1.73 SQ M.PREDICTED 108.5 mL/min/1.73m*2 Normal >60.0 [facility] Comment on above: Result Comment: [facility]???s estimated glomerular filtration rate (eGFR) will [...] of individuals. Performed By: #### L [id number] ####[facility] [place] [address] Glucose [Mass/Vol] 102 mg/dL High 70-100 [facility] Comment on above: Performed By: #### L [id number] ####[facility] ([facility])[address] [place] [address] Potassium [Moles/Vol] 3.9 mmol/L Normal 3.5-5.1 [facility] Comment on above: Performed By: #### L [id number] ####[facility] ([facility])[address] [place] [address] Protein [Mass/Vol] 6.2 g/dL Normal 6.0-8.3 [facility] Comment on above: Performed By: #### L [id number] ####[facility] ([facility])[address] [place] [address] Sodium [Moles/Vol] 140 mmol/L Normal 136-145 [facility] Comment on above: Performed By: #### L [id number] ####[facility] [place] [address] Urea nitrogen [Mass/Vol] 28 mg/dL High 7-25 [facility] Comment on above: Performed By: #### L [id number] ####[facility] ([facility])[address] [place] [address] UREA NITROGEN/CREATININE (MASS RATIO) IN SER/PLAS 66.7 Normal [facility] Comment on above: Performed By: #### L [id number] ####[facility] [place] [address] PLATELET COUNTon 03-24-2024 PLATELETS (10*3/UL) IN BLOOD AUTOMATED COUNT 345 10*3/uL Normal 150-400 [facility] Comment on above: Performed By: #### L [id number] ####[facility] [place] [address] CBCon 03-23-2024 Erythrocyte distribution width (RBC) [Ratio] 14.1 % Normal 11.5-15.0 [facility] Comment on above: Performed By: #### L [id number] ####[facility] [place] [address] ERYTHROCYTE MEAN CORPUSCULAR HEMOGLOBIN CONCENTRATION (G/DL) BY AUTOMATED 30.9 g/dL Low 32.0-35.0 [facility] Comment on above: Performed By: #### L [id number] ####[facility] ([facility])[address] [place] [address] Hematocrit (Bld) [Volume fraction] 31.4 % Low 36.0-48.0 [facility] Comment on above: Performed By: #### L [id number] ####[facility] ([facility])[address] [place] [address] Hemoglobin (Bld) [Mass/Vol] 9.7 g/dL Low 12.0-15.0 [facility] Comment on above: Performed By: #### L [id number] ####[facility] ([facility])[address] [place] [address] MCH (RBC) [Entitic mass] 29.4 pg Normal 27.0-33.0 [facility] Comment on above: Performed By: #### L [id number] ####[facility] ([facility])[address] [place] [address] MCV (RBC) [Entitic vol] 95.2 fL Normal 82.0-98.0 [facility] Comment on above: Performed By: #### L [id number] ####[facility] ([facility])[address] [place] [address] PLATELETS (10*3/UL) IN BLOOD AUTOMATED COUNT 266 10*3/uL Normal 150-400 [facility] Comment on above: Performed By: #### L [id number] ####[facility] ([facility])[address] [place] [address] RBC (Bld) [#/Vol] 3.30 10*6/uL Low 3.80-5.00 [facility] Comment on above: Performed By: #### L [id number] ####[facility] ([facility])[address] [place] [address] WBC (Bld) [#/Vol] 5.54 10*3/uL Normal 4.00-10.60 [facility] Comment on above: Performed By: #### L [id number] ####[facility] [place] [address] COMPREHENSIVE METABOLIC PANE Flash 03-23-2024 Albumin [Mass/Vol] 3.0 g/dL Low 3.5-5.7 [facility] Comment on above: Performed By: #### L [id number] ####[facility] ([facility])[address] [place] [address] ALP [Catalytic activity/Vol] 38 U/L Normal 34-104 [facility] Comment on above: Performed By: #### L [id number] ####[facility] ([facility])[address] [place] [address] ALT [Catalytic activity/Vol] 11 U/L Normal 7-52 [facility] Comment on above: Performed By: #### L [id number] ####[facility] ([facility])[address] [place] [address] Anion gap [Moles/Vol] 13 mmol/L Normal 7-20 [facility] Comment on above: Performed By: #### L [id number] ####[facility] [place] [address] AST [Catalytic activity/Vol] 21 U/L Normal 13-39 [facility] Comment on above: Performed By: #### L [id number] ####[facility] ([facility])[address] [place] [address] Bilirubin [Mass/Vol] 0.3 mg/dL Normal 0.3-1.0 [facility] Comment on above: Performed By: #### L [id number] ####[facility] [place] [address] Calcium [Mass/Vol] 8.6 mg/dL Normal 8.6-10.3 [facility] Comment on above: Performed By: #### L [id number] ####[facility] [place] [address] Chloride [Moles/Vol] 107 mmol/L Normal 98-107 [facility] Comment on above: Performed By: #### L [id number] ####[facility] ([facility])[address] [place] [address] CO2 [Moles/Vol] 23 mmol/L Normal 21-31 [facility] Comment on above: Performed By: #### L [id number] ####[facility] ([facility])[address] [place] [address] Creatinine [Mass/Vol] 0.46 mg/dL Low 0.60-1.20 [facility] Comment on above: Performed By: #### L [id number] ####[facility] ([facility])[address] [place] [address] GLOMERULAR FILTRATION RATE ML/MIN/1.73 SQ M.PREDICTED 106.1 mL/min/1.73m*2 Normal >60.0 [facility] Comment on above: Result Comment: [facility]???s estimated glomerular filtration rate (eGFR) will [...] of individuals. Performed By: #### L [id number] ####[facility] [place] [address] Glucose [Mass/Vol] 93 mg/dL Normal 70-100 [facility] Comment on above: Performed By: #### L [id number] ####[facility] ([facility])[address] [place] [address] Potassium [Moles/Vol] 3.8 mmol/L Normal 3.5-5.1 [facility] Comment on above: Performed By: #### L [id number] ####[facility] ([facility])[address] [place] [address] Protein [Mass/Vol] 6.2 g/dL Normal 6.0-8.3 [facility] Comment on above: Performed By: #### L [id number] ####[facility] ([facility])[address] [place] [address] Sodium [Moles/Vol] 139 mmol/L Normal 136-145 [facility] Comment on above: Performed By: #### L [id number] ####[facility] ([facility])[address] [place] [address] Urea nitrogen [Mass/Vol] 28 mg/dL High 7-25 [facility] Comment on above: Performed By: #### L [id number] ####[facility] ([facility])[address] [place] [address] UREA NITROGEN/CREATININE (MASS RATIO) IN SER/PLAS 60.9 Normal [facility] Comment on above: Performed By: #### L [id number] ####[facility] ([facility])[address] [place] [address] CONSULTon 03-23-2024 CONSULT Normal [facility] CT ABDOMEN PELVIS W AND WO I V CONTRASTon 03-23-2024 CT ABDOMEN PELVIS W AND WO IV CONTRAST Invalid Interpretation Code [facility] CT CHEST W IV CONTRASTon CT CHEST W IV CONTRAST Invalid Interpretation Code [facility] MAGNESIUMon 03-23-2024 Magnesium [Mass/Vol] 1.7 mg/dL Low 1.9-2.7 [facility] Comment on above: Performed By: #### L [id number] ####[facility] ([facility])[address] [place] [address] PHOSPHORUSon 03-23-2024 Magnesium [Mass/Vol] 3.6 mg/dL Normal 2.5-5.0 [facility] Comment on above: Performed By: #### L [id number] ####[facility] ([facility])[address] [place] [address] VENOUS BLOOD GAS WITH IONIZE D CALCIUMon 03-23-2024 Base excess Calc (BldV) [Moles/Vol] 4.5 mmol/L Normal [facility] Comment on above: Performed By: #### L [id number] ####[facility] [id number] [place] [address] [facility] CALCIUM IONIZED (MMOL/L) IN BLOOD 1.18 mmol/L Normal 1.15-1.33 [facility] Comment on above: Performed By: #### L [id number] ####[facility] [id number] [place] [address] [facility] CO2 (BldV) [Partial pressure] 39 mm[Hg] Low 40-50 [facility] Comment on above: Performed By: #### L [id number] ####[facility] [id number] [place] [address] [facility] HCO3 (Bld) [Moles/Vol] 28.4 mmol/L [facility] Comment on above: Performed By: #### L [id number] ####[facility] [id number] [place] [address] [place] Oxygen (BldV) [Partial pressure] 62 mm[Hg] High 35-45 [facility] Comment on above: Performed By: #### L [id number] ####[facility] [id number] [place] [address] [facility] OXYGEN SATURATION (%) IN VENOUS BLOOD 92.7 % High 65.0-75.0 [facility] Comment on above: Performed By: #### L [id number] ####[facility] [id number] [place] [address] [place] PH OF VENOUS BLOOD 7.47 High 7.31-7.41 [facility] Comment on above: Performed By: #### L [id number] ####[facility] [id number] [place] [address] [place] 30on 03-22-2024 30 Normal [facility] 30 Normal [facility] BASIC METABOLIC PANELon 09-0 Anion gap [Moles/Vol] 12 mmol/L Normal 7-20 [facility] Comment on above: Performed By: #### L [id number] ####[facility] ([facility])[address] [place] [address] Calcium [Mass/Vol] 8.9 mg/dL Normal 8.6-10.3 [facility] Comment on above: Performed By: #### L [id number] ####[facility] [place] [address] Chloride [Moles/Vol] 105 mmol/L Normal 98-107 [facility] Comment on above: Performed By: #### L [id number] ####[facility] ([facility])[address] [place] [address] CO2 [Moles/Vol] 26 mmol/L Normal 21-31 [facility] Comment on above: Performed By: #### L [id number] ####[facility] [place] [address] Creatinine [Mass/Vol] 0.44 mg/dL Low 0.60-1.20 [facility] Comment on above: Performed By: #### L [id number] ####[facility] [place] [address] GLOMERULAR FILTRATION RATE ML/MIN/1.73 SQ M.PREDICTED 107.3 mL/min/1.73m*2 Normal >60.0 [facility] Comment on above: Result Comment: [facility]???s estimated glomerular filtration rate (eGFR) will [...] of individuals. Performed By: #### L [id number] ####[facility] ([facility])[address] [place] [address] Glucose [Mass/Vol] 92 mg/dL Normal 70-100 [facility] Comment on above: Performed By: #### L [id number] ####[facility] (BEAKER)[address] [place] [address] Potassium [Moles/Vol] 3.7 mmol/L Normal 3.5-5.1 [facility] Comment on above: Performed By: #### L [id number] ####[facility] ([facility])[address] [place] [address] Sodium [Moles/Vol] 139 mmol/L Normal 136-145 [facility] Comment on above: Performed By: #### L [id number] ####[facility] ([facility])[address] [place] [address] Urea nitrogen [Mass/Vol] 26 mg/dL High 7-25 [facility] Comment on above: Performed By: #### L [id number] ####[facility] ([facility])[address] [place] [address] UREA NITROGEN/CREATININE (MASS RATIO) IN SER/PLAS 59.1 Normal [facility] Comment on above: Performed By: #### L [id number] ####[facility] ([facility])[address] [place] [address] CBCon 03-22-2024 Erythrocyte distribution width (RBC) [Ratio] 13.9 % Normal 11.5-15.0 [facility] Comment on above: Performed By: #### L [id number] ####[facility] ([facility])[address] [place] [address] ERYTHROCYTE MEAN CORPUSCULAR HEMOGLOBIN CONCENTRATION (G/DL) BY AUTOMATED 31.4 g/dL Low 32.0-35.0 [facility] Comment on above: Performed By: #### L [id number] ####[facility] ([facility])[address] [place] [address] Hematocrit (Bld) [Volume fraction] 32.8 % Low 36.0-48.0 [facility] Comment on above: Performed By: #### L [id number] ####[facility] ([facility])[address] [place] [address] Hemoglobin (Bld) [Mass/Vol] 10.3 g/dL Low 12.0-15.0 [facility] Comment on above: Performed By: #### L [id number] ####[facility] [place] [address] MCH (RBC) [Entitic mass] 28.9 pg Normal 27.0-33.0 [facility] Comment on above: Performed By: #### L [id number] ####[facility] [address] MCV (RBC) [Entitic vol] 91.9 fL Normal 82.0-98.0 [facility] Comment on above: Performed By: #### L [id number] ####[facility] ([facility])[address] [place] [address] PLATELETS (10*3/UL) IN BLOOD AUTOMATED COUNT 313 10*3/uL Normal 150-400 [facility] Comment on above: Performed By: #### L [id number] ####[facility] [place] [address] RBC (Bld) [#/Vol] 3.57 10*6/uL Low 3.80-5.00 [facility] Comment on above: Performed By: #### L [id number] ####[facility] [place] [address] WBC (Bld) [#/Vol] 5.94 10*3/uL Normal 4.00-10.60 [facility] Comment on above: Performed By: #### L [id number] ####[facility] ([facility])[address] [place] [address] CONSULTon 03-22-2024 CONSULT Normal [facility] LACTIC ACID WITH 4 HOUR REFL EXon 03-22-2024 LACTATE (MMOL/L) IN SER/PLAS 1.3 mmol/L Normal 0.5-2.2 [facility] Comment on above: Result Comment: M- EMISTRY SPECIMEN MODERATELY HEMOLYZED RESULTS MAY NOT BE ACCURATE Performed By: #### L [id number] ####[facility] [place] [address] MAGNESIUMon 03-22-2024 Magnesium [Mass/Vol] 1.9 mg/dL Normal 1.9-2.7 [facility] Comment on above: Performed By: #### L [id number] ####[facility] ([facility])[address] [place] [address] MR CERVICAL SPINE W AND WO C ONTRASTon 03-22-2024 MR CERVICAL SPINE W AND WO CONTRAST Invalid Interpretation Code [facility] MR LUMBAR SPINE W AND WO CON TRASTon 03-22-2024 MR LUMBAR SPINE W AND WO CONTRAST Invalid Interpretation Code [facility] MR THORACIC SPINE W AND WO C ONTRASTon 03-22-2024 MR THORACIC SPINE W AND WO CONTRAST Invalid Interpretation Code [facility] PHOSPHORUSon 03-22-2024 Magnesium [Mass/Vol] 3.5 mg/dL Normal 2.5-5.0 [facility] Comment on above: Performed By: #### L [id number] ####[facility] ([facility])[address] [place] [address] 30on 03-21-2024 30 Normal [facility] 30 Normal [facility] BASIC METABOLIC PANELon Anion gap [Moles/Vol] 13 mmol/L Normal 7-20 [facility] Comment on above: Performed By: #### L [id number] ####[facility] ([facility])[address] [place] [address] Calcium [Mass/Vol] 8.8 mg/dL Normal 8.6-10.3 [facility] Comment on above: Performed By: #### L [id number] ####[facility] [place] [address] Chloride [Moles/Vol] 104 mmol/L Normal 98-107 [facility] Comment on above: Performed By: #### L [id number] ####[facility] ([facility])[address] [place] [address] CO2 [Moles/Vol] 27 mmol/L Normal 21-31 [facility] Comment on above: Performed By: #### L [id number] ####[facility] ([facility])[address] [place] [address] Creatinine [Mass/Vol] 0.48 mg/dL Low 0.60-1.20 [facility] Comment on above: Performed By: #### L [id number] ####[facility] ([facility])[address] [place] [address] GLOMERULAR FILTRATION RATE ML/MIN/1.73 SQ M.PREDICTED 105.0 mL/min/1.73m*2 Normal >60.0 [facility] Comment on above: Result Comment: [facility]???s estimated glomerular filtration rate (eGFR) will [...] of individuals. Performed By: #### L [id number] ####[facility] [place] [address] Glucose [Mass/Vol] 108 mg/dL High 70-100 [facility] Comment on above: Performed By: #### L [id number] ####[facility] [place] [address] Potassium [Moles/Vol] 3.9 mmol/L Normal 3.5-5.1 [facility] Comment on above: Performed By: #### L [id number] ####[facility] ([facility]ER)[address] [place] [address] Sodium [Moles/Vol] 140 mmol/L Normal 136-145 [facility] Comment on above: Performed By: #### L [id number] ####[facility] ([facility])[address] [address] Urea nitrogen [Mass/Vol] 23 mg/dL Normal 7-25 [facility] Comment on above: Performed By: #### L [id number] ####[facility] [place] [address] UREA NITROGEN/CREATININE (MASS RATIO) IN SER/PLAS 47.9 Normal [facility] Comment on above: Performed By: #### L [id number] ####[facility] [place] [address] CBCon 03-21-2024 Erythrocyte distribution width (RBC) [Ratio] 13.7 % Normal 11.5-15.0 [facility] Comment on above: Performed By: #### L [id number] ####[facility] [address] ERYTHROCYTE MEAN CORPUSCULAR HEMOGLOBIN CONCENTRATION (G/DL) BY AUTOMATED 32.4 g/dL Normal 32.0-35.0 [facility] Comment on above: Performed By: #### L [id number] ####[facility] ([facility])[address] [place] [address] Hematocrit (Bld) [Volume fraction] 32.4 % Low 36.0-48.0 [facility] Comment on above: Performed By: #### L [id number] ####[facility] ([facility])[address] [address] Hemoglobin (Bld) [Mass/Vol] 10.5 g/dL Low 12.0-15.0 [facility] Comment on above: Performed By: #### L [id number] ####[facility] ([facility])[address] [place] [address] MCH (RBC) [Entitic mass] 29.2 pg Normal 27.0-33.0 [facility] Comment on above: Performed By: #### L [id number] ####[facility] ([facility])[address] [place] [address] MCV (RBC) [Entitic vol] 90.3 fL Normal 82.0-98.0 [facility] Comment on above: Performed By: #### L [id number] ####[facility] ([facility])[address] [place] [address] PLATELETS (10*3/UL) IN BLOOD AUTOMATED COUNT 288 10*3/uL Normal 150-400 [facility] Comment on above: Performed By: #### L [id number] ####[facility] ([facility])[address] [place] [address] RBC (Bld) [#/Vol] 3.59 10*6/uL Low 3.80-5.00 [facility] Comment on above: Performed By: #### L [id number] ####[facility] ([facility] [place])[place] [address] WBC (Bld) [#/Vol] 7.45 10*3/uL Normal 4.00-10.60 [facility] Comment on above: Performed By: #### L [id number] ####[facility] ([facility])[address] [place] [address] CONSULTon 03-21-2024 CONSULT Normal [facility] MAGNESIUMon 03-21-2024 Magnesium [Mass/Vol] 1.9 mg/dL Normal 1.9-2.7 [facility] Comment on above: Performed By: #### L [id number] ####[facility] ([facility])[address] [place] [address] MR BRAIN W AND WO CONTRASTon 03-21-2024 MR BRAIN W AND WO CONTRAST Invalid Interpretation Code [facility] PHOSPHORUSon 03-21-2024 Magnesium [Mass/Vol] 3.1 mg/dL Normal 2.5-5.0 [facility] Comment on above: Performed By: #### L [id number] ####[facility] ([facility])[address] [address] 30on 03-20-2024 30 Normal [facility] BASIC METABOLIC PANELon Anion gap [Moles/Vol] 15 mmol/L Normal 7-20 [facility] Comment on above: Performed By: #### L [id number] ####[facility] ([facility])[address] [place] [address] Calcium [Mass/Vol] 8.7 mg/dL Normal 8.6-10.3 [facility] Comment on above: Performed By: #### L [id number] ####[facility] ([facility]ER)[address] [place] [address] Chloride [Moles/Vol] 102 mmol/L Normal 98-107 [facility] Comment on above: Performed By: #### L [id number] ####[facility] ([facility]ER)[address] [place] [address] CO2 [Moles/Vol] 25 mmol/L Normal 21-31 [facility] Comment on above: Performed By: #### L [id number] ####[facility] ([facility]ER)[address] [place] [address] Creatinine [Mass/Vol] 0.39 mg/dL Low 0.60-1.20 [facility] Comment on above: Performed By: #### L [id number] ####[facility] ([facility])[address] [place] [address] GLOMERULAR FILTRATION RATE ML/MIN/1.73 SQ M.PREDICTED 110.4 mL/min/1.73m*2 Normal >60.0 [facility] Comment on above: Result Comment: [facility]???s estimated glomerular filtration rate (eGFR) will [...] of individuals. Performed By: #### L [id number] ####[facility] ([facility])[address] [place] [address] Glucose [Mass/Vol] 85 mg/dL Normal 70-100 [facility] Comment on above: Performed By: #### L [id number] ####[facility] ([facility])[address] [place] [address] Potassium [Moles/Vol] 3.5 mmol/L Normal 3.5-5.1 [facility] Comment on above: Performed By: #### L [id number] ####[facility] ([facility])[address] [place] [address] Sodium [Moles/Vol] 138 mmol/L Normal 136-145 [facility] Comment on above: Performed By: #### L [id number] ####[facility] ([facility])[address] [place] [address] Urea nitrogen [Mass/Vol] 8 mg/dL Normal 7-25 [facility] Comment on above: Performed By: #### L [id number] ####[facility] ([facility])[address] [place] [address] UREA NITROGEN/CREATININE (MASS RATIO) IN SER/PLAS 20.5 Normal [facility] Comment on above: Performed By: #### L [id number] ####[facility] ([facility])[address] [place] [address] CBCon 03-20-2024 Erythrocyte distribution width (RBC) [Ratio] 13.9 % Normal 11.5-15.0 [facility] Comment on above: Performed By: #### L [id number] ####[facility] ([facility]ER)[address] [place] [address] ERYTHROCYTE MEAN CORPUSCULAR HEMOGLOBIN CONCENTRATION (G/DL) BY AUTOMATED 32.1 g/dL Normal 32.0-35.0 [facility] Comment on above: Performed By: #### L [id number] ####[facility] ([facility])[address] [place], [place] [address] Hematocrit (Bld) [Volume fraction] 32.1 % Low 36.0-48.0 [facility] Comment on above: Performed By: #### L [id number] ####[facility] ([facility])[address] [place], [place] [address] Hemoglobin (Bld) [Mass/Vol] 10.3 g/dL Low 12.0-15.0 [facility] Comment on above: Performed By: #### L [id number] ####[facility] ([facility]ER)[address] [place] [address] MCH (RBC) [Entitic mass] 29.5 pg Normal 27.0-33.0 [facility] Comment on above: Performed By: #### L [id number] ####[facility] ([facility]ER)[address] [place] [address] MCV (RBC) [Entitic vol] 92.0 fL Normal 82.0-98.0 [facility] Comment on above: Performed By: #### L [id number] ####[facility] ([facility])[address] [place] [address] PLATELETS (10*3/UL) IN BLOOD AUTOMATED COUNT 243 10*3/uL Normal 150-400 [facility] Comment on above: Performed By: #### L [id number] ####[facility] ([facility]ER)[address] [place] [address] RBC (Bld) [#/Vol] 3.49 10*6/uL Low 3.80-5.00 [facility] Comment on above: Performed By: #### L [id number] ####[facility] ([facility]ER)[address] [place] [address] WBC (Bld) [#/Vol] 6.86 10*3/uL Normal 4.00-10.60 [facility] Comment on above: Performed By: #### L [id number] ####[facility] [place] [address] MAGNESIUMon 03-20-2024 Magnesium [Mass/Vol] 1.8 mg/dL Low 1.9-2.7 [facility] Comment on above: Performed By: #### L [id number] ####[facility] ([facility])[address] [place] [address] PHOSPHORUSon 03-20-2024 Magnesium [Mass/Vol] 2.6 mg/dL Normal 2.5-5.0 [facility] Comment on above: Performed By: #### L [id number] ####[facility] ([facility])[address] [place] [address] BASIC METABOLIC PANELon Anion gap [Moles/Vol] 10 mmol/L Normal 7-20 [facility] Comment on above: Performed By: #### L [id number] ####[facility] [place] [address] Calcium [Mass/Vol] 8.1 mg/dL Low 8.6-10.3 [facility] Comment on above: Performed By: #### L [id number] ####[facility] [place] [address] Chloride [Moles/Vol] 107 mmol/L Normal 98-107 [facility] Comment on above: Performed By: #### L [id number] ####[facility] ([facility]ER)[address] [place] [address] CO2 [Moles/Vol] 27 mmol/L Normal 21-31 [facility] Comment on above: Performed By: #### L [id number] ####[facility] ([facility]ER)[address] [place] [address] Creatinine [Mass/Vol] 0.41 mg/dL Low 0.60-1.20 [facility] Comment on above: Performed By: #### L [id number] ####[facility] ([facility])[address] [place] [address] GLOMERULAR FILTRATION RATE ML/MIN/1.73 SQ M.PREDICTED 109.1 mL/min/1.73m*2 Normal >60.0 [facility] Comment on above: Result Comment: [facility]???s estimated glomerular filtration rate (eGFR) will [...] of individuals. Performed By: #### L [id number] ####[facility] ([facility])[address] [place] [address] Glucose [Mass/Vol] 107 mg/dL High 70-100 [facility] Comment on above: Performed By: #### L [id number] ####[facility] ([facility])[address] [place] [address] Potassium [Moles/Vol] 3.6 mmol/L Normal 3.5-5.1 [facility] Comment on above: Performed By: #### L [id number] ####[facility] ([facility])[address] [place] [address] Sodium [Moles/Vol] 140 mmol/L Normal 136-145 [facility] Comment on above: Performed By: #### L [id number] ####[facility] ([facility])[address] [place] [address] Urea nitrogen [Mass/Vol] 6 mg/dL Low 7-25 [facility] Comment on above: Performed By: #### L [id number] ####[facility] ([facility])[address] [place] [address] UREA NITROGEN/CREATININE (MASS RATIO) IN SER/PLAS 14.6 Normal [facility] Comment on above: Performed By: #### L [id number] ####[facility] ([facility])[address] [address] CBCon 03-19-2024 Erythrocyte distribution width (RBC) [Ratio] 14.6 % Normal 11.5-15.0 [facility] Comment on above: Performed By: #### L [id number] ####[facility] ([facility])[address] [place] [address] ERYTHROCYTE MEAN CORPUSCULAR HEMOGLOBIN CONCENTRATION (G/DL) BY AUTOMATED 31.6 g/dL Low 32.0-35.0 [facility] Comment on above: Performed By: #### L [id number] ####[facility] ([facility])[address] [place] [address] Hematocrit (Bld) [Volume fraction] 28.2 % Low 36.0-48.0 [facility] Comment on above: Performed By: #### L [id number] ####[facility] ([facility])[address] [place] [address] Hemoglobin (Bld) [Mass/Vol] 8.9 g/dL Low 12.0-15.0 [facility] Comment on above: Performed By: #### L [id number] ####[facility] ([facility])[address] [place] [address] MCH (RBC) [Entitic mass] 29.3 pg Normal 27.0-33.0 [facility] Comment on above: Performed By: #### L [id number] ####[facility] ([facility])[address] [place] [address] MCV (RBC) [Entitic vol] 92.8 fL Normal 82.0-98.0 [facility] Comment on above: Performed By: #### L [id number] ####[facility] ([facility])[address] [place] [address] PLATELETS (10*3/UL) IN BLOOD AUTOMATED COUNT 212 10*3/uL Normal 150-400 [facility] Comment on above: Performed By: #### L [id number] ####[facility] ([facility])[address] [place] [address] RBC (Bld) [#/Vol] 3.04 10*6/uL Low 3.80-5.00 [facility] Comment on above: Performed By: #### L [id number] ####[facility] ([facility])[address] [place] [address] WBC (Bld) [#/Vol] 6.98 10*3/uL Normal 4.00-10.60 [facility] Comment on above: Performed By: #### L [id number] ####[facility] ([facility])[address] [place] [address] MAGNESIUMon 03-19-2024 Magnesium [Mass/Vol] 1.8 mg/dL Low 1.9-2.7 [facility] Comment on above: Performed By: #### L [id number] ####[facility] ([facility])[address] [place] [address] PHOSPHORUSon 03-19-2024 Magnesium [Mass/Vol] 2.6 mg/dL Normal 2.5-5.0 [facility] Comment on above: Performed By: #### L [id number] ####[facility] ([facility])[address] [place] [address] [id number] 2023 ALPHA-1 ANTITRYPSIN 294 mg/dL High 90-200 [facility] Comment on above: Result Comment: To c onvert to umol/L, multiply mg/dL by 0.185Performed By: [facility] [place] [id number] Director: Tip Hathaway MD, PhDCLIA Number: [id number] Performed By: #### L [id number] ####[facility] ([facility])[address] [place] [address] BASIC METABOLIC PANELon 09-0 Anion gap [Moles/Vol] 14 mmol/L Normal 7-20 [facility] Comment on above: Performed By: #### L [id number] ####[facility] (BEAKER)[address] [place] [address] Calcium [Mass/Vol] 7.9 mg/dL Low 8.6-10.3 [facility] Comment on above: Performed By: #### L [id number] ####[facility] ([facility]ER)[address] [place] [address] Chloride [Moles/Vol] 108 mmol/L High 98-107 [facility] Comment on above: Performed By: #### L [id number] ####[facility] ([facility]ER)[address] [place] [address] CO2 [Moles/Vol] 23 mmol/L Normal 21-31 [facility] Comment on above: Performed By: #### L [id number] ####[facility] ([facility])[address] [place] [address] Creatinine [Mass/Vol] 0.47 mg/dL Low 0.60-1.20 [facility] Comment on above: Performed By: #### L [id number] ####[facility] ([facility])[address] [place] [address] GLOMERULAR FILTRATION RATE ML/MIN/1.73 SQ M.PREDICTED 105.6 mL/min/1.73m*2 Normal >60.0 [facility] Comment on above: Result Comment: [facility]???s estimated glomerular filtration rate (eGFR) will [...] of individuals. Performed By: #### L [id number] ####[facility] ([facility])[address] [place] [address] Glucose [Mass/Vol] 103 mg/dL High 70-100 [facility] Comment on above: Performed By: #### L [id number] ####[facility] ([facility])[address] [place] [address] Potassium [Moles/Vol] 3.6 mmol/L Normal 3.5-5.1 [facility] Comment on above: Performed By: #### L [id number] ####[facility] ([facility])[address] [place] [address] Sodium [Moles/Vol] 141 mmol/L Normal 136-145 [facility] Comment on above: Performed By: #### L [id number] ####[facility] ([facility])[address] [place] [address] Urea nitrogen [Mass/Vol] 6 mg/dL Low 7-25 [facility] Comment on above: Performed By: #### L [id number] ####[facility] ([facility])[address] [place] [address] UREA NITROGEN/CREATININE (MASS RATIO) IN SER/PLAS 12.8 Normal [facility] Comment on above: Performed By: #### L [id number] ####[facility] ([facility])[address] [place] [address] Anion gap [Moles/Vol] 11 mmol/L Normal 7-20 [facility] Comment on above: Performed By: #### L [id number] ####[facility] ([facility])[address] [place] [address] Calcium [Mass/Vol] 8.1 mg/dL Low 8.6-10.3 [facility] Comment on above: Performed By: #### L [id number] ####[facility] ([facility])[address] [place] [address] Chloride [Moles/Vol] 108 mmol/L High 98-107 [facility] Comment on above: Performed By: #### L [id number] ####[facility] [place] [address] CO2 [Moles/Vol] 23 mmol/L Normal 21-31 [facility] Comment on above: Performed By: #### L [id number] ####[facility] ([facility])[address] [place] [address] Creatinine [Mass/Vol] 0.44 mg/dL Low 0.60-1.20 [facility] Comment on above: Performed By: #### L [id number] ####[facility] ([facility])[address] [place] [address] GLOMERULAR FILTRATION RATE ML/MIN/1.73 SQ M.PREDICTED 107.3 mL/min/1.73m*2 Normal >60.0 [facility] Comment on above: Result Comment: [facility]???s estimated glomerular filtration rate (eGFR) will [...] of individuals. Performed By: #### L [id number] ####[facility] [place] [address] Glucose [Mass/Vol] 92 mg/dL Normal 70-100 [facility] Comment on above: Performed By: #### L [id number] ####[facility] [place] [address] Potassium [Moles/Vol] 3.6 mmol/L Normal 3.5-5.1 [facility] Comment on above: Performed By: #### L [id number] ####[facility] [place] [address] Sodium [Moles/Vol] 138 mmol/L Normal 136-145 [facility] Comment on above: Performed By: #### L [id number] ####[facility] [place] [address] Urea nitrogen [Mass/Vol] 8 mg/dL Normal 7-25 [facility] Comment on above: Performed By: #### L [id number] ####[facility] [place] [address] UREA NITROGEN/CREATININE (MASS RATIO) IN SER/PLAS 18.2 Normal [facility] Comment on above: Performed By: #### L [id number] ####[facility] ([facility])[address] [place] [address] CBCon 03-18-2024 Erythrocyte distribution width (RBC) [Ratio] 14.6 % Normal 11.5-15.0 [facility] Comment on above: Performed By: #### L [id number] ####[facility] [place] [address] ERYTHROCYTE MEAN CORPUSCULAR HEMOGLOBIN CONCENTRATION (G/DL) BY AUTOMATED 31.7 g/dL Low 32.0-35.0 [facility] Comment on above: Performed By: #### L [id number] ####[facility] [place] [address] Hematocrit (Bld) [Volume fraction] 27.1 % Low 36.0-48.0 [facility] Comment on above: Performed By: #### L [id number] ####[facility] ([facility])[address] [place] [address] Hemoglobin (Bld) [Mass/Vol] 8.6 g/dL Low 12.0-15.0 [facility] [facility]: Performed By: #### L [id number] ####[facility] ([facility])[address] [place] [address] MCH (RBC) [Entitic mass] 29.3 pg Normal 27.0-33.0 [facility] Comment on above: Performed By: #### L [id number] ####[facility] [place] [address] MCV (RBC) [Entitic vol] 92.2 fL Normal 82.0-98.0 [facility] Comment on above: Performed By: #### L [id number] ####[facility] ([facility])[address] [place] [address] PLATELETS (10*3/UL) IN BLOOD AUTOMATED COUNT 167 10*3/uL Normal 150-400 [facility] Comment on above: Performed By: #### L [id number] ####[facility] ([facility])[address] [place] [address] RBC (Bld) [#/Vol] 2.94 10*6/uL Low 3.80-5.00 [facility] Comment on above: Performed By: #### L [id number] ####[facility] ([facility])[address] [place] [address] WBC (Bld) [#/Vol] 8.17 10*3/uL Normal 4.00-10.60 [facility] Comment on above: Performed By: #### L [id number] ####[facility] [place] [address] MAGNESIUMon 03-18-2024 Magnesium [Mass/Vol] 2.0 mg/dL Normal 1.9-2.7 [facility] Comment on above: Performed By: #### L [id number] ####[facility] [place] [address] Magnesium [Mass/Vol] 1.7 mg/dL Low 1.9-2.7 [facility] Comment on above: Performed By: #### L [id number] ####[facility] ([facility])[address] [place] [address] PHOSPHORUSon 03-18-2024 Magnesium [Mass/Vol] 3.4 mg/dL Normal 2.5-5.0 [facility] Comment on above: Performed By: #### L [id number] ####[facility] ([facility])[address] [place] [address] Magnesium [Mass/Vol] 2.4 mg/dL Low 2.5-5.0 [facility] Comment on above: Performed By: #### L [id number] ####[facility] ([facility])[address] [place] [address] TRIGLYCERIDESon 03-18-2024 FASTING? Unknown Normal [facility] Comment on above: Order Comment: Monit or triglycerides while patient is on propofol. Consult Nutrition if greater than 500 mg/dL. Performed By: #### L [id number] ####[facility] ([facility])[address] [place] [address] Magnesium [Mass/Vol] 116 mg/dL Normal 40-149 [facility] Comment on above: Order Comment: Monit or triglycerides while patient is on propofol. Consult Nutrition if greater than 500 mg/dL. Result Comment: TRIG LYCERIDE REFERENCE RANGE:20 YEARS AND OLDER CARDIOVASCULAR RISKLESS THAN 150 mg/dL LOW [id number] TO 199 mg/dL BORDERLINE [id number] mg/dL AND GREATER HIGH RISK Performed By: #### L [id number] ####[facility] ([facility])[address] [place] [address] 30on 03-17-2024 30 Normal [facility] AFB CULTUREon 03-17-2024 AFB CULTURE No growth at 42 days Normal [facility] Comment on above: Performed By: #### L [id number] ####[facility] ([facility])[address] [place] [address] AFB STAIN No acid fast bacilli seen Normal [facility] Comment on above: Performed By: #### L [id number] ####[facility] ([facility])[address] [place] [address] BASIC METABOLIC PANELon 09-0 Anion gap [Moles/Vol] 10 mmol/L Normal 7-20 [facility] Comment on above: Performed By: #### L [id number] ####[facility] ([facility])[address] [place] [address] Calcium [Mass/Vol] 8.0 mg/dL Low 8.6-10.3 [facility] Comment on above: Performed By: #### L [id number] ####[facility] ([facility])[address] [place] [address] Chloride [Moles/Vol] 107 mmol/L Normal 98-107 [facility] Comment on above: Performed By: #### L [id number] ####[facility] [place] [address] CO2 [Moles/Vol] 23 mmol/L Normal 21-31 [facility] Comment on above: Performed By: #### L [id number] ####[facility] [place] [address] Creatinine [Mass/Vol] 0.48 mg/dL Low 0.60-1.20 [facility] Comment on above: Performed By: #### L [id number] ####[facility] ([facility])[address] [place] [address] GLOMERULAR FILTRATION RATE ML/MIN/1.73 SQ M.PREDICTED 105.0 mL/min/1.73m*2 Normal >60.0 [facility] Comment on above: Result Comment: [facility]???s estimated glomerular filtration rate (eGFR) will [...] of individuals. Performed By: #### L [id number] ####[facility] ([facility])[address] [place] [address] Glucose [Mass/Vol] 101 mg/dL High 70-100 [facility] Comment on above: Performed By: #### L [id number] ####[facility] [place] [address] Potassium [Moles/Vol] 3.4 mmol/L Low 3.5-5.1 [facility] Comment on above: Performed By: #### L [id number] ####[facility] ([facility])[address] [place] [address] Sodium [Moles/Vol] 137 mmol/L Normal 136-145 [facility] Comment on above: Performed By: #### L [id number] ####[facility] ([facility])[address] [place] [address] Urea nitrogen [Mass/Vol] 8 mg/dL Normal 7-25 [facility] Comment on above: Performed By: #### L [id number] ####[facility] ([facility])[address] [place] [address] UREA NITROGEN/CREATININE (MASS RATIO) IN SER/PLAS 16.7 Normal [facility] Comment on above: Performed By: #### L [id number] ####[facility] ([facility])[address] [place] [address] CBCon 03-17-2024 Erythrocyte distribution width (RBC) [Ratio] 14.7 % Normal 11.5-15.0 [facility] Comment on above: Performed By: #### L [id number] ####[facility] ([facility])[address] [place] [address] ERYTHROCYTE MEAN CORPUSCULAR HEMOGLOBIN CONCENTRATION (G/DL) BY AUTOMATED 32.0 g/dL Normal 32.0-35.0 [facility] Comment on above: Performed By: #### L [id number] ####[facility] [place] [address] Hematocrit (Bld) [Volume fraction] 29.7 % Low 36.0-48.0 [facility] Comment on above: Performed By: #### L [id number] ####[facility] ([facility])[address] [place] [address] Hemoglobin (Bld) [Mass/Vol] 9.5 g/dL Low 12.0-15.0 [facility] Comment on above: Performed By: #### L [id number] ####[facility] ([facility])[address] [place] [address] MCH (RBC) [Entitic mass] 29.9 pg Normal 27.0-33.0 [facility] Comment on above: Performed By: #### L [id number] ####[facility] ([facility])[address] [place] [address] MCV (RBC) [Entitic vol] 93.4 fL Normal 82.0-98.0 [facility] Comment on above: Performed By: #### L [id number] ####[facility] ([facility])[address] [place] [address] PLATELETS (10*3/UL) IN BLOOD AUTOMATED COUNT 186 10*3/uL Normal 150-400 [facility] Comment on above: Performed By: #### L [id number] ####[facility] ([facility])[address] [place] [address] RBC (Bld) [#/Vol] 3.18 10*6/uL Low 3.80-5.00 [facility] Comment on above: Performed By: #### L [id number] ####[facility] ([facility])[address] [place] [address] WBC (Bld) [#/Vol] 8.27 10*3/uL Normal 4.00-10.60 [facility] Comment on above: Performed By: #### L [id number] ####[facility] [place] [address] Erythrocyte distribution width (RBC) [Ratio] 14.6 % Normal 11.5-15.0 [facility] Comment on above: Performed By: #### L [id number] ####[facility] [place] [address] ERYTHROCYTE MEAN CORPUSCULAR HEMOGLOBIN CONCENTRATION (G/DL) BY AUTOMATED 31.4 g/dL Low 32.0-35.0 [facility] Comment on above: Performed By: #### L [id number] ####[facility] ([facility])[address] [place] [address] Hematocrit (Bld) [Volume fraction] 30.3 % Low 36.0-48.0 [facility] Comment on above: Performed By: #### L [id number] ####[facility] ([facility])[address] [place] [address] Hemoglobin (Bld) [Mass/Vol] 9.5 g/dL Low 12.0-15.0 [facility] Comment on above: Performed By: #### L [id number] ####[facility] ([facility])[address] [place] [address] MCH (RBC) [Entitic mass] 29.3 pg Normal 27.0-33.0 [facility] Comment on above: Performed By: #### L [id number] ####[facility] ([facility])[address], [place] [address] MCV (RBC) [Entitic vol] 93.5 fL Normal 82.0-98.0 [facility] Comment on above: Performed By: #### L [id number] ####[facility] ([facility])[address] [place] [address] PLATELETS (10*3/UL) IN BLOOD AUTOMATED COUNT 185 10*3/uL Normal 150-400 [facility] Comment on above: Performed By: #### L [id number] ####[facility] ([facility])[address], [place] [address] RBC (Bld) [#/Vol] 3.24 10*6/uL Low 3.80-5.00 [facility] Comment on above: Performed By: #### L [id number] ####[facility] ([facility])[address], [place] [address] WBC (Bld) [#/Vol] 9.38 10*3/uL Normal 4.00-10.60 [facility] Comment on above: Performed By: #### L [id number] ####[facility] [place] [address] FUNGAL CULTUREon 03-17-2024 FUNGAL SMEAR No yeast or fungal e lements seen Normal [facility] Comment on above: Performed By: #### L [id number] ####[facility] [place] [address] HEMOGLOBIN AND HEMATOCRIT, B LOODon 03-17-2024 Hematocrit (Bld) [Volume fraction] 27.7 % Low 36.0-48.0 [facility] Comment on above: Performed By: #### L [id number] ####[facility] [place] [address] Hemoglobin (Bld) [Mass/Vol] 9.0 g/dL Low 12.0-15.0 [facility] Comment on above: Performed By: #### L [id number] ####[facility] ([facility])[address] [place] [address] MAGNESIUMon 03-17-2024 Magnesium [Mass/Vol] 1.9 mg/dL Normal 1.9-2.7 [facility] Comment on above: Performed By: #### L [id number] ####[facility] ([facility])[address] [place] [address] PHOSPHORUSon 03-17-2024 Magnesium [Mass/Vol] 2.2 mg/dL Low 2.5-5.0 [facility] Comment on above: Performed By: #### L [id number] ####[facility] ([facility])[address] [place] [address] SPUTUM CULTUREon 03-17-2024 GRAM STAIN RESULT Normal [facility] Comment on above: Order Comment: Light Growth Colonies Consistent with Upper Respiratory Li Result Comment: <10 Epithelial cells per low power field>25 Polys Per Low Power FieldRare Gram positive cocci in clustersRare Gram negative bacilli Performed By: #### L [id number] ####[facility] ([facility])[address] [place] [address] TROPONIN Ion 03-17-2024 Troponin I.cardiac [Mass/Vol] 0.08 ng/mL High 0.00-0.04 [facility] Comment on above: Performed By: #### L [id number] ####[facility] ([facility])[address] [place] [address] Troponin I.cardiac [Mass/Vol] 0.06 ng/mL High 0.00-0.04 [facility] Comment on above: Performed By: #### L [id number] ####[facility] ([facility])[address] [place] [address] VANCOMYCIN, TROUGHon 024 VANCOMYCIN (UG/ML) IN SER/PLAS - TROUGH 4.5 ug/mL Low 5.0-20.0 [facility] Comment on above: Performed By: #### L [id number] ####[facility] ([facility])[address] [place] [address] BASIC METABOLIC PANELon -3 Anion gap [Moles/Vol] 12 mmol/L Normal 7-20 [facility] Comment on above: Performed By: #### L [id number] ####[facility] ([facility])[address] [place] [address] Calcium [Mass/Vol] 7.9 mg/dL Low 8.6-10.3 [facility] Comment on above: Performed By: #### L [id number] ####[facility] ([facility])[address] [place] [address] Chloride [Moles/Vol] 105 mmol/L Normal 98-107 [facility] Comment on above: Performed By: #### L [id number] ####[facility] [place] [address] CO2 [Moles/Vol] 22 mmol/L Normal 21-31 [facility] Comment on above: Performed By: #### L [id number] ####[facility] ([facility])[address] [place] [address] Creatinine [Mass/Vol] 0.65 mg/dL Normal 0.60-1.20 [facility] Comment on above: Performed By: #### L [id number] ####[facility] ([facility])[address] [place] [address] GLOMERULAR FILTRATION RATE ML/MIN/1.73 SQ M.PREDICTED 97.6 mL/min/1.73m*2 Normal >60.0 [facility] Comment on above: Result Comment: [facility]???s estimated glomerular filtration rate (eGFR) will [...] of individuals. Performed By: #### L [id number] ####[facility] ([facility])[address] [place] [address] Glucose [Mass/Vol] 95 mg/dL Normal 70-100 [facility] Comment on above: Performed By: #### L [id number] ####[facility] ([facility])[address] [place] [address] Potassium [Moles/Vol] 3.3 mmol/L Low 3.5-5.1 [facility] Comment on above: Performed By: #### L [id number] ####[facility] ([facility])[address] [place] [address] Sodium [Moles/Vol] 136 mmol/L Normal 136-145 [facility] Comment on above: Performed By: #### L [id number] ####[facility] ([facility])[address] [address] Urea nitrogen [Mass/Vol] 9 mg/dL Normal 7-25 [facility] Comment on above: Performed By: #### L [id number] ####[facility] ([facility])[address] [place] [address] UREA NITROGEN/CREATININE (MASS RATIO) IN SER/PLAS 13.8 Normal [facility] Comment on above: Performed By: #### L [id number] ####[facility] ([facility])[address] [place] [address] CBCon 03-16-2024 Erythrocyte distribution width (RBC) [Ratio] 14.7 % Normal 11.5-15.0 [facility] Comment on above: Performed By: #### L [id number] ####[facility] ([facility])[address] [place] [address] ERYTHROCYTE MEAN CORPUSCULAR HEMOGLOBIN CONCENTRATION (G/DL) BY AUTOMATED 31.8 g/dL Low 32.0-35.0 [facility] Comment on above: Performed By: #### L [id number] ####[facility] ([facility])[address] [place] [address] Hematocrit (Bld) [Volume fraction] 30.8 % Low 36.0-48.0 [facility] Comment on above: Performed By: #### L [id number] ####[facility] ([facility])[address] [place] [address] Hemoglobin (Bld) [Mass/Vol] 9.8 g/dL Low 12.0-15.0 [facility] Comment on above: Performed By: #### L [id number] ####[facility] ([facility])[address] [place] [address] MCH (RBC) [Entitic mass] 29.4 pg Normal 27.0-33.0 [facility] Comment on above: Performed By: #### L [id number] ####[facility] [place] [address] MCV (RBC) [Entitic vol] 92.5 fL Normal 82.0-98.0 [facility] Comment on above: Performed By: #### L [id number] ####[facility] ([facility])[address] [place] [address] PLATELETS (10*3/UL) IN BLOOD AUTOMATED COUNT 179 10*3/uL Normal 150-400 [facility] Comment on above: Performed By: #### L [id number] ####[facility] ([facility])[address] [place] [address] RBC (Bld) [#/Vol] 3.33 10*6/uL Low 3.80-5.00 [facility] Comment on above: Performed By: #### L [id number] ####[facility] ([facility])[address] [place] [address] WBC (Bld) [#/Vol] 9.45 10*3/uL Normal 4.00-10.60 [facility] Comment on above: Performed By: #### L [id number] ####[facility] [place] [address] Erythrocyte distribution width (RBC) [Ratio] 14.7 % Normal 11.5-15.0 [facility] Comment on above: Performed By: #### L [id number] ####[facility] ([facility])[address] [place] [address] ERYTHROCYTE MEAN CORPUSCULAR HEMOGLOBIN CONCENTRATION (G/DL) BY AUTOMATED 32.0 g/dL Normal 32.0-35.0 [facility] Comment on above: Performed By: #### L [id number] ####[facility] ([facility])[address] [place] [address] Hematocrit (Bld) [Volume fraction] 30.6 % Low 36.0-48.0 [facility] Comment on above: Performed By: #### L [id number] ####[facility] ([facility])[address] [place] [address] Hemoglobin (Bld) [Mass/Vol] 9.8 g/dL Low 12.0-15.0 [facility] Comment on above: Performed By: #### L [id number] ####[facility] ([facility])[address] [address] MCH (RBC) [Entitic mass] 30.0 pg Normal 27.0-33.0 [facility] Comment on above: Performed By: #### L [id number] ####[facility] ([facility])[address] [place] [address] MCV (RBC) [Entitic vol] 93.6 fL Normal 82.0-98.0 [facility] Comment on above: Performed By: #### L [id number] ####[facility] ([facility])[address] [place] [address] PLATELETS (10*3/UL) IN BLOOD AUTOMATED COUNT 177 10*3/uL Normal 150-400 [facility] Comment on above: Performed By: #### L [id number] ####[facility] [place] [address] RBC (Bld) [#/Vol] 3.27 10*6/uL Low 3.80-5.00 [facility] Comment on above: Performed By: #### L [id number] ####[facility] [address] WBC (Bld) [#/Vol] 10.10 10*3/uL Normal 4.00-10.60 [facility] Comment on above: Performed By: #### L [id number] ####[facility] ([facility])[address] [address] Erythrocyte distribution width (RBC) [Ratio] 14.9 % Normal 11.5-15.0 [facility] Comment on above: Performed By: #### L [id number] ####[facility] ([facility])[address] [place] [address] ERYTHROCYTE MEAN CORPUSCULAR HEMOGLOBIN CONCENTRATION (G/DL) BY AUTOMATED 31.0 g/dL Low 32.0-35.0 [facility] Comment on above: Performed By: #### L [id number] ####[facility] ([facility])[address] [place], [place] [address] Hematocrit (Bld) [Volume fraction] 37.4 % Normal 36.0-48.0 [facility] Comment on above: Performed By: #### L [id number] ####[facility] ([facility])[address] [place], [place] [address] Hemoglobin (Bld) [Mass/Vol] 11.6 g/dL Low 12.0-15.0 [facility] Comment on above: Performed By: #### L [id number] ####[facility] ([facility])[address] [place], [place] [address] MCH (RBC) [Entitic mass] 30.1 pg Normal 27.0-33.0 [facility] Comment on above: Performed By: #### L [id number] ####[facility] ([facility])[address], [place] [address] MCV (RBC) [Entitic vol] 96.9 fL Normal 82.0-98.0 [facility] Comment on above: Performed By: #### L [id number] ####[facility] ([facility])[address] [place], [place] [address] PLATELETS (10*3/UL) IN BLOOD AUTOMATED COUNT 179 10*3/uL Normal 150-400 [facility] Comment on above: Performed By: #### L [id number] ####[facility] ([facility])[address] [place] [address] RBC (Bld) [#/Vol] 3.86 10*6/uL Normal 3.80-5.00 [facility] Comment on above: Performed By: #### L [id number] ####[facility] ([facility])[address] [place], [place] [address] WBC (Bld) [#/Vol] 12.28 10*3/uL High 4.00-10.60 [facility] Comment on above: Performed By: #### L [id number] ####[facility] ([facility])[address] [address] HEMOGLOBIN AND HEMATOCRIT, B LOODon 03-16-2024 Hematocrit (Bld) [Volume fraction] 29.0 % Low 36.0-48.0 [facility] Comment on above: Performed By: #### L [id number] ####[facility] ([facility])[address] [address] Hemoglobin (Bld) [Mass/Vol] 9.4 g/dL Low 12.0-15.0 [facility] Comment on above: Performed By: #### L [id number] ####[facility] ([facility])[address] [place] [address] Hematocrit (Bld) [Volume fraction] 31.8 % Low 36.0-48.0 [facility] Comment on above: Performed By: #### L [id number] ####[facility] ([facility])[address] [address] Hemoglobin (Bld) [Mass/Vol] 9.9 g/dL Low 12.0-15.0 [facility] Comment on above: Performed By: #### L [id number] ####[facility] ([facility])[address] [place], [place] [address] Hematocrit (Bld) [Volume fraction] 30.0 % Low 36.0-48.0 [facility] Comment on above: Performed By: #### L [id number] ####[facility] ([facility])[address] [address] Hemoglobin (Bld) [Mass/Vol] 9.6 g/dL Low 12.0-15.0 [facility] Comment on above: Performed By: #### L [id number] ####[facility] ([facility])[address] [place] [address] MAGNESIUMon 03-16-2024 Magnesium [Mass/Vol] 1.7 mg/dL Low 1.9-2.7 [facility] Comment on above: Performed By: #### L [id number] ####[facility] ([facility])[address] [place] [address] PHOSPHORUSon 03-16-2024 Magnesium [Mass/Vol] 2.4 mg/dL Low 2.5-5.0 [facility] Comment on above: Performed By: #### L [id number] ####[facility] ([facility])[address] [place] [address] TROPONIN Ion 03-16-2024 Troponin I.cardiac [Mass/Vol] 0.05 ng/mL High 0.00-0.04 [facility] Comment on above: Performed By: #### L [id number] ####[facility] ([facility])[address] [place] [address] Troponin I.cardiac [Mass/Vol] 0.05 ng/mL High 0.00-0.04 [facility] Comment on above: Performed By: #### L [id number] ####[facility] ([facility])[address] [place] [address] Troponin I.cardiac [Mass/Vol] 0.03 ng/mL Normal 0.00-0.04 [facility] Comment on above: Performed By: #### L [id number] ####[facility] ([facility])[address] [place] [address] Troponin I.cardiac [Mass/Vol] 0.02 ng/mL Normal 0.00-0.04 [facility] Comment on above: Performed By: #### L [id number] ####[facility] ([facility])[address] [place] [address] Troponin I.cardiac [Mass/Vol] 0.07 ng/mL High 0.00-0.04 [facility] Comment on above: Performed By: #### L [id number] ####[facility] ([facility])[address] [place] [address] VANCOMYCIN, PEAKon VANCOMYCIN (UG/ML) IN SER/PLAS - PEAK 13.4 ug/mL Low 20.0-50.0 [facility] Comment on above: Performed By: #### L [id number] ####[facility] [place] [address] 30on 03-15-2023 30 Normal [facility] BASIC METABOLIC PANELon 02-16 Anion gap [Moles/Vol] 10 mmol/L Normal 7-20 [facility] Comment on above: Performed By: #### L [id number] ####[facility] ([facility])[address] [place] [address] Calcium [Mass/Vol] 7.9 mg/dL Low 8.6-10.3 [facility] Comment on above: Performed By: #### L [id number] ####[facility] ([facility])[address] [place], [place] [address] Chloride [Moles/Vol] 110 mmol/L High 98-107 [facility] Comment on above: Performed By: #### L [id number] ####[facility] ([facility])[address] [place] [address] CO2 [Moles/Vol] 23 mmol/L Normal 21-31 [facility] Comment on above: Performed By: #### L [id number] ####[facility] ([facility])[address], [place] [address] Creatinine [Mass/Vol] 0.59 mg/dL Low 0.60-1.20 [facility] Comment on above: Performed By: #### L [id number] ####[facility] ([facility])[address] [place] [address] GLOMERULAR FILTRATION RATE ML/MIN/1.73 SQ M.PREDICTED 100.0 mL/min/1.73m*2 Normal >60.0 [facility] Comment on above: Result Comment: [facility]???s estimated glomerular filtration rate (eGFR) will [...] of individuals. Performed By: #### L [id number] ####[facility] ([facility])[address] [place] [address] Glucose [Mass/Vol] 103 mg/dL High 70-100 [facility] Comment on above: Performed By: #### L [id number] ####[facility] ([facility])[address] [place] [address] Potassium [Moles/Vol] 3.6 mmol/L Normal 3.5-5.1 [facility] Comment on above: Performed By: #### L [id number] ####[facility] ([facility])[address] [place] [address] Sodium [Moles/Vol] 139 mmol/L Normal 136-145 [facility] Comment on above: Performed By: #### L [id number] ####[facility] [facility])[address] [place] [address] Urea nitrogen [Mass/Vol] 11 mg/dL Normal 7-25 [facility] Comment on above: Performed By: #### L [id number] ####[facility] ([facility])[address] [place] [address] UREA NITROGEN/CREATININE (MASS RATIO) IN SER/PLAS 18.6 Normal [facility] Comment on above: Performed By: #### L [id number] ####[facility] ([facility])[address] [place] [address] Anion gap [Moles/Vol] 9 mmol/L Normal 7-20 [facility] Comment on above: Performed By: #### L [id number] ####[facility] ([facility])[address] [place] [address] Calcium [Mass/Vol] 7.9 mg/dL Low 8.6-10.3 [facility] Comment on above: Performed By: #### L [id number] ####[facility] [place] [address] Chloride [Moles/Vol] 107 mmol/L Normal 98-107 [facility] Comment on above: Performed By: #### L [id number] ####[facility] ([facility])[address] [place] [address] CO2 [Moles/Vol] 24 mmol/L Normal 21-31 [facility] Comment on above: Performed By: #### L [id number] ####[facility] ([facility])[address] [place] [address] Creatinine [Mass/Vol] 0.65 mg/dL Normal 0.60-1.20 [facility] Comment on above: Performed By: #### L [id number] ####[facility] ([facility])[address] [place] [address] GLOMERULAR FILTRATION RATE ML/MIN/1.73 SQ M.PREDICTED 97.6 mL/min/1.73m*2 Normal >60.0 [facility] Comment on above: Result Comment: The [facility]???s estimated glomerular filtration rate (eGFR) will [...] of individuals. Performed By: #### L [id number] ####[facility] ([facility])[address] [place] [address] Glucose [Mass/Vol] 117 mg/dL High 70-100 [facility] Comment on above: Performed By: #### L [id number] ####[facility] ([facility])[address] [place] [address] Potassium [Moles/Vol] 3.8 mmol/L Normal 3.5-5.1 [facility] Comment on above: Performed By: #### L [id number] ####[facility] ([facility])[address] [place] [address] Sodium [Moles/Vol] 136 mmol/L Normal 136-145 [facility] Comment on above: Performed By: #### L [id number] ####[facility] ([facility])[address] [address] Urea nitrogen [Mass/Vol] 15 mg/dL Normal 7-25 [facility] Comment on above: Performed By: #### L [id number] ####[facility] ([facility])[address] [address] UREA NITROGEN/CREATININE (MASS RATIO) IN SER/PLAS 23.1 Normal [facility] Comment on above: Performed By: #### L [id number] ####[facility] ([facility])[address] [place] [address] CBCon 03-15-2024 Erythrocyte distribution width (RBC) [Ratio] 14.7 % Normal 11.5-15.0 [facility] Comment on above: Performed By: #### L [id number] ####[facility] [address] ERYTHROCYTE MEAN CORPUSCULAR HEMOGLOBIN CONCENTRATION (G/DL) BY AUTOMATED 31.5 g/dL Low 32.0-35.0 [facility] Comment on above: Performed By: #### L [id number] ####[facility] ([facility])[address] [place] [address] Hematocrit (Bld) [Volume fraction] 28.9 % Low 36.0-48.0 [facility] Comment on above: Performed By: #### L [id number] ####[facility] ([facility])[address] [place], [place] [address] Hemoglobin (Bld) [Mass/Vol] 9.1 g/dL Low 12.0-15.0 [facility] Comment on above: Performed By: #### L [id number] ####[facility] ([facility])[address] [address] MCH (RBC) [Entitic mass] 29.4 pg Normal 27.0-33.0 [facility] Comment on above: Performed By: #### L [id number] ####[facility] [address] MCV (RBC) [Entitic vol] 93.5 fL Normal 82.0-98.0 [facility] Comment on above: Performed By: #### L [id number] ####[facility] ([facility])[address] [address] PLATELETS (10*3/UL) IN BLOOD AUTOMATED COUNT 170 10*3/uL Normal 150-400 [facility] Comment on above: Performed By: #### L [id number] ####[facility] ([facility])[address] [address] RBC (Bld) [#/Vol] 3.09 10*6/uL Low 3.80-5.00 [facility] Comment on above: Performed By: #### L [id number] ####[facility] ([facility])[address] [address] WBC (Bld) [#/Vol] 6.38 10*3/uL Normal 4.00-10.60 [facility] Comment on above: Performed By: #### L [id number] ####[facility] ([facility])[address] [place], [place] [address] Erythrocyte distribution width (RBC) [Ratio] 14.9 % Normal 11.5-15.0 [facility] Comment on above: Performed By: #### L [id number] ####[facility] ([facility])[address] [place], [place] [address] ERYTHROCYTE MEAN CORPUSCULAR HEMOGLOBIN CONCENTRATION (G/DL) BY AUTOMATED 32.0 g/dL Normal 32.0-35.0 [facility] Comment on above: Performed By: #### L [id number] ####[facility] ([facility])[address] [place] [address] Hematocrit (Bld) [Volume fraction] 28.4 % Low 36.0-48.0 [facility] Comment on above: Performed By: #### L [id number] ####[facility] ([facility])[address] [place] [address] Hemoglobin (Bld) [Mass/Vol] 9.1 g/dL Low 12.0-15.0 [facility] Comment on above: Performed By: #### L [id number] ####[facility] ([facility])[address] [place] [address] MCH (RBC) [Entitic mass] 29.7 pg Normal 27.0-33.0 [facility] Comment on above: Performed By: #### L [id number] ####[facility] ([facility])[address] [place] [address] MCV (RBC) [Entitic vol] 92.8 fL Normal 82.0-98.0 [facility] Comment on above: Performed By: #### L [id number] ####[facility] ([facility])[address] [place] [address] PLATELETS (10*3/UL) IN BLOOD AUTOMATED COUNT 180 10*3/uL Normal 150-400 [facility] Comment on above: Performed By: #### L [id number] ####[facility] ([facility])[address] [place] [address] RBC (Bld) [#/Vol] 3.06 10*6/uL Low 3.80-5.00 [facility] Comment on above: Performed By: #### L [id number] ####[facility] ([facility])[address] [place] [address] WBC (Bld) [#/Vol] 5.62 10*3/uL Normal 4.00-10.60 [facility] Comment on above: Performed By: #### L [id number] ####[facility] [place] [address] CYSTIC FIBROSIS EXPANDED CHIARA IANT PANELon 03-15-2024 CYSTIC FIBROSIS 5T VARIANT Negative Normal [facility] Comment on above: Performed By: #### L [id number] ####[facility] ([address] [place] [address] CYSTIC FIBROSIS EXPANDED VARIANT PANEL INTERP 0 variants Normal [facility] Comment on above: Result Comment: None [...] consider ordering Cystic Fibrosis(CFTR) Sequencing and Deletion/Duplication ([employer] test [id number]) to detect rare CFTR variants not tested by this assay. Ifthere is a family history of CF, please contact an [employer] geneticcounselor ([phone]) and provide the specific familialvariants to confirm they were tested by this assay.Ethnicity Classic CF Patients with No Detectable Severe Variants by CF Variant PanelAfrican Mexican 5%Ashkenazi Mormonism 1% Mexican 20% 1% Mexican 4%Specimen: Whole BloodSymptoms: YesFamily History: UnknownThis result has been reviewed and approved by Francia Vasquez M.D.BACKGROUND INFORMATION: Cystic Fibrosis (CFTR), Expanded Variant PanelCHARACTERISTICS OF CYSTIC FIBROSIS (CF): Chronic sinopulmonarydisease, gastrointestinal malabsorption/pancreatic insufficiency,and obstructive azoospermia. Symptoms of CFTR-related disordersinclude: pancreatitis, bilateral absence of the vas deferens,nasal polyposis, and bronchiectasis.INCIDENCE: 1 in 2,300 Ashkenazi Mormonism, 1 in 2,500 Caucasians, 1in 13,500 Hispanics, [...] provided for the 23 recommended ACMG variants.c.1A>G, p.Jqh5Okj; c.54-3521_273+05477wye98aj, Exons 2-3del;c.115C>T, p.Gln39X; c.178G>T, p.Glu60X; c.200C>T, p.Ayo82Fvi;c.223C>T, p.Arg75X; c.254G>A (Legacy G85E), p.Tcu29Rrx;c.262_263delTT, p.Nsr89UlcfwG03 (aka p.Mzo33un); c.273+1G>A,Intronic; c.273+3A>C, Intronic; c.274-1G>A, Intronic; c.274G>A,p.Wml97Ylf; c.274G>T, p.Glu92X; c.292C>T, p.Gln98X; c.313delA,p.Lop503AmuozV8 (aka p.Rjg663da); c.325_327delTATinsG,p.Qgt524KyjbzI7 (aka p.Cvk521fs); c.328G>C, p.Iyz649Zlx; c.349C>T,p.Vjv127Jte; c.350G>A (Legacy R117H), p.Dls323Ezv; c.366T>A,p.Clh860E; c.442delA, p.Sfm233FafacU9 (aka p.Hkw631wi); c.489+1G>T(Legacy 621+1G>T), Intronic; c.531delT, p.Kbf989AmiczR76 (akap.Wlg267ha); c.532G>A, p.Fwg541Xig; c.579+1G>T (Legacy 711+1G>T),Intronic; c.579+5G>A, Intronic; c.579+3A>G, Intronic; c.580-1G>T,Intronic; c.595C>T, p.Ane059Byr; c.613C>T, p.Ohu105Jca; c.617T>G,p.Kdw533Apj; c.658C>T, p.Nbc289J; c.680T>G, p.Qdy102Tqj;c.722_743del, p.Yfj888NhrntK89 (aka p.Wew703ap); c.803delA,p.Gzj996LiyyjC38 (aka p.Tgy126di); c.805_806delAT, p.Chm412RkzqdM4(aka p.Xky582un); c.935_937delTCT, p.Yei442kmy; c.948delT,p.Ztz476EpgnxN61 (aka p.Xvk410mc); c.988G>T, p.Frz826J; c.1000C>T(Legacy R334W), p.Fry119Lxd; c.1007T>A, p.Aro851Ksg; c.1021T>C,p.Rea769Sts; c.1021_1022dupTC, p.Muc952PvdneR56 (aka p.Jar234qb);c.1040G>A, p.Uzy085Gsb; c.1040G>C (Legacy R347P), p.Jwy220Ftg;c.1055G>A, p.Vvh135Dmu; c.1081delT, p.Yjw788HtatgQ2 (akap.Frm611gp); c.1116+1G>A, Intronic; c.1130dupA, p.Wku596NceiyK5(aka p.Skr964ov); c.1155_1156dupTA, p.Yiq517GowhhY8 (akap.Sbb924wx); c.1202G>A, p.Jsm248Q; c.1203G>A, p.Orx640E;c.1209+1G>A, Intronic; c.1327_1330dupGATA, p.Fac196GpyqbJ7 (akap.Nyb258sv); c.1340delA, p.Tuo578ZptigO6 (aka p.Jlr516ba);c.1364C>A (Legacy A455E), p.Mgb508Bmc; c.1393-1G>A, Intronic;c.1397C>A, p.Sju719Z; c.1397C>G, p.Ljn229V; c.1400T>C,p.Ddj372Hcl; c.1418delG, p.Cti665LojuxB56 (aka p.Rkq163vh);c.1438G>T, p.Sdd831Lxi; c.1466C>A, p.Axk512D; c.1475C>T,p.Gzv458Fdd; c.1477C>T, p.Uby491C; c.1519_1521delATC (FzsrksC737fqi), p.Oja344pyn; c.1521_1523delCTT (Legacy L307haz),p.Rye537yam; c.1545_1546delTA, p.Rcv687R; c.1558G>T, p.Cyq793Kpl;c.1572C>A, p.Sai186Q; c.1573C>T, p.Adt094F; c.1585-1G>A (Poirjv3587-4N>A), Intronic; c.1585-8G>A, Intronic; c.1624G>T (DwnkenB749Q), p.Bgf430V; c.1645A>C, p.Pez054Lse; c.1646G>A, p.Fqh849Ucd;c.1647T>G, p.Rvx728Leh; c.1651G>A, p.Ohd957Zjj; c.1652G>A (QejxdgD391M), p.Ryj797Axc; c.1654C>T, p.Xoa592T; c.1657C>T (HmpjykU695N), p.Zhc345Y; c.1675G>A, p.Fbj715Esh; c.1679G>A, p.Rqf545Ktq;c.1679G>C (Legacy R560T), p.Ohu659Krd; c.1680-886A>G, Intronic;c.1680-1G>A, Intronic; c.1703delT, p.Tlo854SxnvjS4 (akap.Jjn256ga); c.1705T>G, p.Wmh509Abs; c.1721C>A, p.Cnf255Fon;c.1753G>T, p.Aro839W; c.1766+1G>A (Legacy 1898+1G>A), Intronic;c.1766+3A>G, Intronic; c.1792_1798delAAAACTA, p.Tzu084MooftN71(aka p.Eyt501tl); c.1911delG, p.Hra145WprttR70 (aka p.Trr608lc);c.1923_1931del9insA, p.Mnb671GhujpC1 (aka p.Aif424zt);c.1972_1984del13insAGAAA, p.Ugj867DxjmzS6 (aka p.Xjk345lm);c.1975delA, p.Wkt872MbdvjM8 (aka p.Qbz210rf); c.2011delT,p.Hma501T; c.2050_2del, p.Bgp195LmjdfC9; c.2050_elinsG(aka c.2050_elinsG), p.Nga695TlkzeB66; c.2delA (Zfbtnr1791qeuP), p.Qpn812ZdolbG51; c.2125C>T, p.Hmu422B; c.2128A>T,p.Dms983D; c.2175dupA, p.Mig819YmqfgR6 (aka p.Ueb754nk);c.2195T>G, p.Qcm960B; c.2215delG, p.Bec655EyrqxT83 (akap.Whp336id); c.2290C>T, p.Qlh592Gst; c.2453delT, p.Wih701ZvtgsB3(aka p.Ikr420vc); c.2464G>T, p.Fso615D; c.2490+1G>A, Intronic;c.2491G>T, p.Npz763N; c.2537G>A, p.Yqp940M; c.2538G>A, p.Axq933F;c.2551C>T, p.Dxl757R; c.2583delT, p.Ioi183BoluiK3 (akap.Hot155ev); c.2657+5G>A (Legacy 2789+5G>A), Intronic; c.2668C>T,p.Xds263Z; c.2737_2738insG, p.Jyj433W; c.2780T>C, p.Cve845Uhi;c.2810dupT, p.Oqw273FhnwpV26 (aka p.Otd092zo); c.2834C>T,p.Ufk677Acf; c.2875delG, p.Bgc306RcnkcM4 (aka p.Fwf494wy);c.2908G>C, p.Kog281Fsf; c.2988+1G>A (Legacy 3120+1G>A), Intronic;c.2988G>A, Intronic; c.2989-1G>A, Intronic; c.3039delC,p.Qoi1627CdnecF2 (aka p.Kkk3024ih); c.3067_3072delATAGTG,p.Tcq0928_Ghv8957lyq (aka U9087_B6600cqq); c.3140-26A>G, Intronic;c.3194T>C, p.Ljj7866Fpx; c.3196C>T, p.Oab1878Vnn; c.3197G>A,p.Zim0140Iqh; c.3230T>C, p.Yqe6244Qna; c.3266G>A, p.Rox4006X;c.3276C>A, p.Wlg1940M; c.3276C>G, p.Tle2938F; c.3302T>A,p.Qfu5713Dnc; c.3310G>T, p.Tcc8639H; c.3472C>T, p.Khz1201X;c.3484C>T (Legacy V5226H), p.Jro0384C; c.3528delC (Snpcad7765ubtG), p.Pqo3114MpdpfK69 (aka p.Lgk5429uu);c.3532_3535dupTCAA, p.Thw3458GwdunT64 (aka p.Tfk2021go);c.3587C>G, p.Uyo5207B; c.3611G>A, p.Rgy8547L; c.3612G>A,p.Akj7965S; c.3659delC, p.Ggp1011UkmkyN2 (aka p.Myc2667av);c.3691delT, p.Hdq6314ShakdL4 (aka p.Cpr5353su); c.3712C>T,p.Aev2534X; c.3718-3387C>T (Legacy 3849+10kbC>T), Intronic;c.3731G>A, p.Tid2245Giq; c.3744delA, p.Msi0923KeihiP8 (akap.Tuy2481sd); c.3752G>A, p.Blh1993Bhr; c.3763T>C, p.Gwa5651Sxs;c.3764C>A, p.Faf0248M; c.3773dupT, p.Eku4931LonmwG7 (akap.Dey4854nx); c.3846G>A (Legacy M5830K), p.Egx4993A; c.3873+1G>A,Intronic; c.3909C>G (Legacy D8148D), p.Crg0615Lre; c.3937C>T,p.Quo9531F; c.3964-78_4242+577del, Exons 22-23del; c.4025_4028dup,p.Hfj9855BgnclE17 (aka p.Z6822ue); c.4046G>A, p.Hdw3607Vlx;c.4077_4080delTGTTinsAA, p.Wpr9786nyX7 (aka p.Nhj4706mc);c.4111G>T, p.Ptw4863U; c.4251delA, p.Elr4921JmwepV95 (akap.Osf6268nh). The IVS-8 variant, c.1210-12[5], will be reportedonly when R117H is detected or in patients who are reported to besymptomatic.CLINICAL SENSITIVITY: Ashkenazi Mormonism 96 percent; 92percent; 80 percent; 78 percent; AsianAmerican 55 percent.METHODOLOGY: Matrix-Assisted Laser Desorption Ionization-Time ofFlight (MALDI-TOF)Analytical sensitivity and specificity: 99 percent.LIMITATIONS: Diagnostic errors can occur due to rare sequencevariations. Only the CFTR variants listed above and 5T variantwill be interrogated.This test was developed and its performance characteristicsdetermined by [facility]. It has not been cleared orapproved by the U.S. Food and Drug Administration. This test wasperformed in a CLIA-certified laboratory and is intended forclinical purposes.Counseling and informed consent are recommended for genetictesting. Consent forms are available online.Performed By: [facility], [place] [address]Laboratory Director: Tip Hathaway MD, PhDCLIA Number: [id number] Performed By: #### L [id number] ####[facility] ([facility])[address] [place] [address] CYSTIC FIBROSIS, ALLELE 1 Negative Normal [facility] Comment on above: Performed By: #### L [id number] ####[facility] ([facility])[address] [place] [address] CYSTIC FIBROSIS, ALLELE 2 Negative Normal [facility] Comment on above: Performed By: #### L [id number] ####[facility] ([facility])[address] [place] [address] HEMOGLOBIN AND HEMATOCRIT, B [facility] 03-15-2024 Hematocrit (Bld) [Volume fraction] 30.1 % Low 36.0-48.0 [facility] Comment on above: Performed By: #### L [id number] ####[facility] [place] [address] Hemoglobin (Bld) [Mass/Vol] 9.5 g/dL Low 12.0-15.0 [facility] Comment on above: Performed By: #### L [id number] ####[facility] [place] [address] Hematocrit (Bld) [Volume fraction] 30.3 % Low 36.0-48.0 [facility] Comment on above: Performed By: #### L [id number] ####[facility] ([facility])[address] [place] [address] Hemoglobin (Bld) [Mass/Vol] 9.7 g/dL Low 12.0-15.0 [facility] Comment on above: Performed By: #### L [id number] ####[facility] [place] [address] MAGNESIUMon 03-15-2024 Magnesium [Mass/Vol] 1.5 mg/dL Low 1.9-2.7 [facility] Comment on above: Performed By: #### L [id number] ####[facility] [place] [address] MRSA/MSSA DNA NASALon 2023 MRSA DNA Negative Normal Negative [facility] Comment on above: Order Comment: Testi [...] preclude nasal colonization. Performed By: #### L [id number] ####[facility] [place] [address] MSSA DNA Negative Normal Negative [facility] Comment on above: Order Comment: Testi [...] preclude nasal colonization. Performed By: #### L [id number] ####[facility] ([facility])[address] [place] [address] PHOSPHORUSon 03-15-2024 Magnesium [Mass/Vol] 2.1 mg/dL Normal 1.9-2.7 [facility] Comment on above: Performed By: #### L [id number] ####[facility] ([facility])[address] [place] [address] Performed By: #### L [id number] ####[facility] ([facility])[address] [place] [address] Magnesium [Mass/Vol] 2.8 mg/dL Normal 2.5-5.0 [facility] Comment on above: Performed By: #### L [id number] ####[facility] ([facility])[address] [place] [address] TROPONIN Ion 03-15-2024 Troponin I.cardiac [Mass/Vol] 0.02 ng/mL Normal 0.00-0.04 [facility] Comment on above: Performed By: #### L [id number] ####[facility] ([facility])[address] [place] [address] Troponin I.cardiac [Mass/Vol] 0.02 ng/mL Normal 0.00-0.04 [facility] Comment on above: Performed By: #### L [id number] ####[facility] ([facility])[address] [place] [address] Troponin I.cardiac [Mass/Vol] 0.01 ng/mL Normal 0.00-0.04 [facility] Comment on above: Performed By: #### L [id number] ####[facility] ([facility])[address] [place] [address] Troponin I.cardiac [Mass/Vol] 0.03 ng/mL Normal 0.00-0.04 [facility] Comment on above: Performed By: #### L [id number] ####[facility] ([facility])[address] [place] [address] Troponin I.cardiac [Mass/Vol] 0.07 ng/mL High 0.00-0.04 [facility] Comment on above: Performed By: #### L [id number] ####[facility] ([facility])[address] [place] [address] 1,2-MYRF-G-GLUCANon 03-14-20 24 (1,3)-CJRQ-G-IAGJOX 47 pg/mL Normal [facility] Comment on above: Performed By: #### L [id number] ####[facility] ([facility])[address] [place] [address] (1,3)-SHCE-G-PHCQKR INTERPRETATION Negative Normal Negative [facility] Comment on above: Result Comment: INTE RPRETIVE INFORMATION: (1,3)-uvmu-N-nkdqxw (Fungitell) Less than 31 pg/mL ................... Negative 31-59 pg/mL .......................... Negative 60-79 pg/mL .......................... Indeterminate Greater than or equal to 80 pg/mL .... PositiveThe Fungitell test is indicated for presumptive diagnosisof fungal infection and should be used in conjunction withother diagnostic procedures. This test does not detectcertain fungal species such as Cryptococcus, which producevery low levels of (1,3)-kwqh-V-cavjtw. This test will notdetect the zygomycetes, such as Absidia, Mucor, andRhizopus, which are not known to produce(1,3)-ghnn-M-tginyk. In addition, the yeast phase ofBlastomyces dermatitidis produces little(1,3)-mffk-G-dttgop and may not be detected by the assay.Performed By: [facility] [place] [id number] Director: Tip Hathaway MD, PhDCLIA Number: [id number] Performed By: #### L [id number] ####[facility] [place] [address] 30on 03-14-2024 30 Normal [facility] 30 Normal [facility] 30 The patient is Moder ately Unstable - Medium risk of patient condition declining or worsening The patient's goals for the shift include NABIL The clinical goals for the shift include Reduce Bleeding and VSS Normal [facility] AFB CULTUREon 03-14-2024 AFB CULTURE No growth at 42 days Normal [facility] Comment on above: Performed By: #### L [id number] ####[facility] ([facility])[address] [place] [address] AFB STAIN No acid fast bacilli seen Normal [facility] Comment on above: Performed By: #### L [id number] ####[facility] [place] [address] ALLERGEN ASPERGILLUS FUMIGAT USon 03-14-2024 ALLERGEN MICROORGANISM: ASPERGILLUS FUMIGATUS IGE (KU/L) <0.10 Normal <=0.34 [facility] Comment on above: Result Comment: Perf ormed By: [address] [place] [id number] Director: Tip Hathaway MD, PhDCLIA Number: [id number] Performed By: #### L [id number] ####[facility] ([facility] [place] [address] ALLERGEN INTERPRETATIONon ALLERGEN INTERPRETATION See Note Normal [facility] Comment on above: Result Comment: REFE [...] rule outclinical allergy or even anaphylaxis.Performed By: [address] [place], [place] [id number] Director: Tip Hathaway MD, PhDCLIA Number: [id number] Performed By: #### L [id number] ####[facility] ([employer])[address] [place] [address] APTTon 03-14-2024 ACTIVATED PARTIAL THROMBOPLASTIN TIME IN PPP BY COAGULATION ASSAY 26.4 Seconds Normal 25.0-35.0 [facility] Comment on above: Result Comment: Clin ical significance of the APTT is questionable in the presence of heparin. Performed By: #### L [id number] ####[facility] [place] [address] ASPERGILLUS GALACTOMANNAN AN TIGENon 03-14-2024 ASPERGILLUS GALACTOMANNAN ANTIGEN, SERUM Negative Normal Negative [facility] Comment on above: Result Comment: INTE RPRETIVE INFORMATION: Aspergillus Galactomannan Antigen by EIANegative results do not exclude the diagnosis of invasiveaspergillosis. A single positive test result (index equalto or greater than 0.5) should be clinically correlatedby testing a separate serum specimen because many agents(e.g. foods, antibiotics) may cross-react with the test.If invasive aspergillosis is suspected in high-riskpatients, serial sampling is recommended.Performed By: [address] [place] [id number] Director: Tip Hathaway MD, PhDCLIA Number: [id number] Performed By: #### L [id number] ####[facility] ([facility] [place] [address] ASPERGILLUS GALACTOMANNAN INDEX 0.03 Normal [facility] Comment on above: Performed By: #### L [id number] ####[facility] ([employer])[address] [place] [address] ASPERGILLUS GALACTOMANNAN ANTIGEN, SERUM Negative Normal Negative [facility] Comment on above: Result Comment: INTE RPRETIVE INFORMATION: Aspergillus Galactomannan Antigen by EIANegative results do not exclude the diagnosis of invasiveaspergillosis. A single positive test result (index equalto or greater than 0.5) should be clinically correlatedby testing a separate serum specimen because many agents(e.g. foods, antibiotics) may cross-react with the test.If invasive aspergillosis is suspected in high-riskpatients, serial sampling is recommended.Performed By: [address] [place] [id number] Director: Tip Hathaway MD, PhDCLIA Number: [id number] Performed By: #### L [id number] ####[facility] ([employer])[address] [place] [address] ASPERGILLUS GALACTOMANNAN INDEX 0.03 Normal [facility] Comment on above: Performed By: #### L [id number] ####[facility] ([facility] [place] [address] BASIC METABOLIC PANELon 02-154 Anion gap [Moles/Vol] 11 mmol/L Normal 7-20 [facility] Comment on above: Performed By: #### L [id number] ####[facility] [place] [address] Calcium [Mass/Vol] 7.7 mg/dL Low 8.6-10.3 [facility] Comment on above: Performed By: #### L [id number] ####[facility] [place] [address] Chloride [Moles/Vol] 106 mmol/L Normal 98-107 [facility] Comment on above: Performed By: #### L [id number] ####[facility] [place] [address] CO2 [Moles/Vol] 26 mmol/L Normal 21-31 [facility] Comment on above: Performed By: #### L [id number] ####[facility] [place] [address] Creatinine [Mass/Vol] 0.73 mg/dL Normal 0.60-1.20 [facility] Comment on above: Performed By: #### L [id number] ####[facility] [place] [address] GLOMERULAR FILTRATION RATE ML/MIN/1.73 SQ M.PREDICTED 91.2 mL/min/1.73m*2 Normal >60.0 [facility] Comment on above: Result Comment: [facility]???s estimated glomerular filtration rate (eGFR) will [...] of individuals. Performed By: #### L [id number] ####[facility] ([facility])[address] [place] [address] Glucose [Mass/Vol] 104 mg/dL High 70-100 [facility] Comment on above: Performed By: #### L [id number] ####[facility] [place] [address] Potassium [Moles/Vol] 4.0 mmol/L Normal 3.5-5.1 [facility] Comment on above: Performed By: #### L [id number] ####[facility] [place] [address] Sodium [Moles/Vol] 139 mmol/L Normal 136-145 [facility] Comment on above: Performed By: #### L [id number] ####[facility] [place] [address] Urea nitrogen [Mass/Vol] 17 mg/dL Normal 7-25 [facility] Comment on above: Performed By: #### L [id number] ####[facility] ([facility])[address] [place] [address] UREA NITROGEN/CREATININE (MASS RATIO) IN SER/PLAS 23.3 [facility] Comment on above: Performed By: #### L [id number] ####[facility] ([facility])[address] [place] [address] BLOOD CULTUREon 03-14-2024 Bacteria identified Cx Nom (Bld) No growth at 5 days [facility] Comment on above: Performed By: #### L [id number] ####[facility] ([facility])[address] [place] [address] Order Comment: From a different site than #1. BODY FLUID CELL DIFFERENTIAL on 03-14-2024 BASOPHILS TOTAL PER COUNTED LEUKOCYTES IN BODY FLUID BY MANUAL COUNT [facility] Comment on above: Order Comment: Diffe rential performed on cytospin Performed By: #### L [id number] ####[facility] ([facility])[address] [place] [address] CELLS COUNTED TOTAL (#) IN BODY FLUID 100 Normal [facility] Comment on above: Order Comment: Diffe rential performed on cytospin Performed By: #### L [id number] ####[facility] ([facility])[address] [place] [address] EOSINOPHILS TOTAL PER COUNTED LEUKOCYTES IN BODY FLUID BY MANUAL COUNT [facility] Comment on above: Order Comment: Diffe rential performed on cytospin Performed By: #### L [id number] ####[facility] ([facility])[address] [place] [address] LYMPHOCYTES TOTAL PER COUNTED LEUKOCYTES IN BODY FLUID BY MANUAL COUNT 13 [facility] Comment on above: Order Comment: Diffe rential performed on cytospin Performed By: #### L [id number] ####[facility] ([facility])[address] [place] [address] MESOTHELIAL CELLS TOTAL PER COUNTED LEUKOCYTES IN BODY FLUID BY MANUAL COUN [facility] Comment on above: Order Comment: Diffe rential performed on cytospin Performed By: #### L [id number] ####[facility] ([facility])[address] [place] [address] MONOCYTES+MACROPHAGES TOTAL PER COUNTED LEUKOCYTES IN BODY FLUID BY MANUAL 36 [facility] Comment on above: Order Comment: Diffe rential performed on cytospin Performed By: #### L [id number] ####[facility] ([facility])[address] [place] [address] NEUTROPHILS TOTAL PER COUNTED LEUKOCYTES IN BODY FLUID BY MANUAL COUNT 51 [facility] Comment on above: Order Comment: Diffe rential performed on cytospin Performed By: #### L [id number] ####[facility] ([facility])[address] [place] [address] OTHER CELLS BODY FLUID (MANUAL) [facility] Comment on above: Order Comment: Diffe rential performed on cytospin Performed By: #### L [id number] ####[facility] ([facility])[address] [place] [address] CBC WITH AUTO DIFFERENTIALon 03-14-2024 Erythrocyte distribution width (RBC) [Ratio] 14.7 % Normal 11.5-15.0 [facility] Comment on above: Performed By: #### L [id number] ####[facility] [place] [address] ERYTHROCYTE MEAN CORPUSCULAR HEMOGLOBIN CONCENTRATION (G/DL) BY AUTOMATED 31.6 g/dL Low 32.0-35.0 [facility] Comment on above: Performed By: #### L [id number] ####[facility] ([facility])[address] [place] [address] Hematocrit (Bld) [Volume fraction] 34.2 % Low 36.0-48.0 [facility] Comment on above: Performed By: #### L [id number] ####[facility] ([facility])[address] [place] [address] Hemoglobin (Bld) [Mass/Vol] 10.8 g/dL Low 12.0-15.0 [facility] Comment on above: Performed By: #### L [id number] ####[facility] ([facility])[address] [place] [address] MCH (RBC) [Entitic mass] 29.8 pg Normal 27.0-33.0 [facility] Comment on above: Performed By: #### L [id number] ####[facility] ([facility])[address] [place] [address] MCV (RBC) [Entitic vol] 94.5 fL Normal 82.0-98.0 [facility] Comment on above: Performed By: #### L [id number] ####[facility] [place] [address] NRBC (PER 100 WBCS) BY AUTOMATED COUNT 0.0 % Normal 0 [facility] Comment on above: Performed By: #### L [id number] ####[facility] [place] [address] PLATELETS (10*3/UL) IN BLOOD AUTOMATED COUNT 218 10*3/uL Normal 150-400 [facility] Comment on above: Performed By: #### L [id number] ####[facility] ([facility])[address] [place] [address] RBC (Bld) [#/Vol] 3.62 10*6/uL Low 3.80-5.00 [facility] Comment on above: Performed By: #### L [id number] ####[facility] [address] WBC (Bld) [#/Vol] 18.33 10*3/uL High 4.00-10.60 [facility] Comment on above: Performed By: #### L [id number] ####[facility] ([facility])[address] [address] CONSULTon 03-14-2024 CONSULT Normal [facility] FUNGAL CULTUREon 03-14-2024 FUNGAL SMEAR No yeast or fungal e lements seen [facility] Comment on above: Performed By: #### L [id number] ####[facility] [place] [address] HEMOGLOBIN AND HEMATOCRIT, B LOODon 03-14-2024 Hematocrit (Bld) [Volume fraction] 31.9 % Low 36.0-48.0 [facility] Comment on above: Performed By: #### L [id number] ####[facility] [address] Hemoglobin (Bld) [Mass/Vol] 10.3 g/dL Low 12.0-15.0 [facility] Comment on above: Performed By: #### L [id number] ####[facility] [address] HPon 03-14-2024 HP Normal [facility] IGG, IGA, IGMon 03-14-2024 Magnesium [Mass/Vol] 1340 mg/dL Normal 591-1540 [facility] Comment on above: Performed By: #### L [id number] ####[facility] [place] [address] Magnesium [Mass/Vol] 517 mg/dL High 60-413 [facility] Comment on above: Performed By: #### L [id number] ####[facility] ([facility])[address] [place] [address] Magnesium [Mass/Vol] 95.3 mg/dL Normal 54-285 [facility] Comment on above: Performed By: #### L [id number] ####[facility] ([facility])[address] [place] [address] IMMUNOGLOBULIN Skyler IMMUNOGLOBIN E 32 IU/mL Normal 0-100 [facility] Comment on above: Result Comment: Test Performed by [employer] [address] [place] [id number] - Released 03/14/2024 23:25 Performed By: #### L [id number] ####[facility] [id number] [place] [address] LACTIC ACID WITH 4 HOUR REFL EXon 03-14-2024 LACTATE (MMOL/L) IN SER/PLAS 0.3 mmol/L Low 0.5-2.2 [facility] Comment on above: Performed By: #### L [id number] ####[facility] ([facility])[address] [place] [address] MAGNESIUMon 03-14-2024 Magnesium [Mass/Vol] 1.5 mg/dL Low 1.9-2.7 [facility] Comment on above: Performed By: #### L [id number] ####[facility] ([facility])[address] [place] [address] MANUAL DIFFERENTIALon 2023 BASOPHILS (10*3/UL) IN BLOOD BY CALCULATION 0.04 10*3/uL Normal 0.00-0.20 [facility] Comment on above: Performed By: #### L [id number] ####[facility] ([facility])[address] [place] [address] BASOPHILS/100 LEUKOCYTES IN BLOOD BY AUTOMATED COUNT 0.2 % Normal 0.0-1.0 [facility] Comment on above: Performed By: #### L [id number] ####[facility] ([facility])[address] [place] [address] EOSINOPHILS (10*3/UL) IN BLOOD BY CALCULATION 0.00 10*3/uL Normal 0.00-0.50 [facility] Comment on above: Performed By: #### L [id number] ####[facility] ([facility])[address] [place] [address] EOSINOPHILS/100 LEUKOCYTES IN BLOOD BY AUTOMATED COUNT 0.0 % Normal 0.0-6.0 [facility] Comment on above: Performed By: #### L [id number] ####[facility] ([facility])[address] [place] [address] IMMATURE GRANULOCYTES (10*3/UL) IN BLOOD BY CALCULATION 0.09 10*3/uL Normal 0.00-0.20 [facility] Comment on above: Performed By: #### L [id number] ####[facility] ([facility])[address] [place] [address] IMMATURE GRANULOCYTES/100 LEUKOCYTES IN BLOOD BY AUTOMATED COUNT 0.5 % Normal 0.0-1.0 [facility] Comment on above: Performed By: #### L [id number] ####[facility] ([facility])[address] [place] [address] LYMPHOCYTES (10*3/UL) IN BLOOD BY CALCULATION 0.24 10*3/uL Low 1.20-4.00 [facility] Comment on above: Performed By: #### L [id number] ####[facility] ([facility])[address] [place] [address] LYMPHOCYTES/100 LEUKOCYTES IN BLOOD BY AUTOMATED COUNT 1.3 % Low 20.0-45.0 [facility] Comment on above: Performed By: #### L [id number] ####[facility] ([facility])[address] [place] [address] MONOCYTES (10*3/UL) IN BLOOD BY CALCUATION 0.97 10*3/uL Normal 0.10-1.00 [facility] Comment on above: Performed By: #### L [id number] ####[facility] ([facility])[address] [place] [address] MONOCYTES/100 LEUKOCYTES IN BLOOD BY AUTOMATED COUNT 5.3 % Normal 5.0-12.0 [facility] Comment on above: Performed By: #### L [id number] ####[facility] ([facility])[address] [place] [address] NEUTROPHILS (10*3/UL) IN BLOOD BY CALCULATION 17.0 10*3/uL High 1.6-7.6 [facility] Comment on above: Performed By: #### L [id number] ####[facility] ([facility])[address] [place] [address] NEUTROPHILS/100 LEUKOCYTES IN BLOOD BY AUTOMATED COUNT 92.7 % High 40.0-72.0 [facility] Comment on above: Performed By: #### L [id number] ####[facility] ([facility])[address] [place] [address] MYCOPLASMA PNEUMONIAE ANTIBO DY, IGMon 03-14-2024 MYCOPLASMA PNEUMONIAE IGM 0.43 U/L Normal <=0.76 [facility] Comment on above: Result Comment: INTE [...] for more than 12 months post-infection.Performed By: [facility] [place] [id number] Director: Tip Hathaway MD, PhDCLIA Number: [id number] Performed By: #### L [id number] ####[facility] [place] [address] MYCOPLASMA PNEUMONIAE PCRon 03-14-2024 MYCOPLASMA PNEUMONIAE PCR Not detected Normal [facility] Comment on above: Result Comment: NOT DETECTED - A negative result does not rule out thepresence of PCR inhibitors in the patient specimen orassay specific nucleic acid in concentrations below thelevel of detection by the assay.INTERPRETIVE INFORMATION: Mycoplasma pneumoniae by PCRThis test was developed and its performance characteristicsdetermined by [facility]. It has not been cleared orapproved by the [place] Food and Drug Administration. This test wasperformed in a CLIA certified laboratory and is intended forclinical purposes.Performed By: [facility] [place], [place] [address]Inhjjxzfbe Director: Tip Hathaway MD, PhDCLIA Number: [id number] Performed By: #### L [id number] ####[facility] ([facility])[address] [place] [address] MYCOPLASMA PNEUMONIAE SOURCE Bronchial wash Normal [facility] Comment on above: Performed By: #### L [id number] ####[facility] ([facility])[address] [place] [address] NON-HOSPITAL CARRIER CYTOLOGY - CELLULAR EXAMon 03-14-2024 LAB AP CASE REPORT Normal [facility] Comment on above: Result Comment: Non- gynecologic Cytology Case: [id number] Provider: Quinn Adler MD Collected: 03/14/2024 1535Ordering Location: [facility] Intensive Received: 03/15/2024 0721 CarePathologist: DAVID Reddypecimen: Bronchoalveolar lavage, right lower lobe Performed By: #### L [id number] ####[facility] ([facility])[address] [place] [address] LAB AP CLINICAL INFORMATION Hemoptysis Normal [facility] Comment on above: Performed By: #### L [id number] ####[facility] ([facility])[address] [place] [address] LAB AP GROSS DESCRIPTION Normal [facility] Comment on above: Result Comment: 27 m L cloudy, red mucoid fluid Performed By: #### L [id number] ####[facility] ([facility])[address] [place] [address] LAB AP REPORT FINAL DIAGNOSIS NARRATIVE Normal [facility] Comment on above: Result Comment: Hector cantrell, right lower lobe, bronchoalveolar lavage: - Negative for malignancy - Marked acute inflammation and bacteria present. Performed By: #### L [id number] ####[facility] ([facility])[address] [place] [address] PATHOLOGY REVIEWon PATHOLOGY REVIEW Electronically pete d by Eboni Celis MD on 03/22/24 at 12:41 PM. Normal [facility] Comment on above: Performed By: #### L [id number] ####[facility] ([facility])[address] [place] [address] PHOSPHORUSon 03-14-2024 Magnesium [Mass/Vol] 3.7 mg/dL Normal 2.5-5.0 [facility] Comment on above: Performed By: #### L [id number] ####[facility] ([facility])[address] [place] [address] PNEUMOCYSTIS SMEAR BY DFAon 03-14-2024 PNEUMOCYSTIS SMEAR, DFA Negative Normal Negative [facility] Comment on above: Performed By: #### L [id number] ####[facility] ([facility])[address] [place] [address] PROTIME-INRon 03-14-2024 INR IN PPP BY COAGULATION ASSAY 1.08 Normal 0.90-1.10 [facility] Comment on above: Result Comment: ACCC [...] 1995;[id number]. Performed By: #### L [id number] ####[facility] ([facility])[address] [place] [address] PROTHROMBIN TIME (PT) IN PPP BY COAGULATION ASSAY 14.0 Seconds Normal 12.3-14.8 [facility] Comment on above: Performed By: #### L [id number] ####[facility] ([facility])[address] [place] [address] RESPIRATORY CULTUREon 2023 Bacteria identified Cx Nom (Unsp spec) Normal [facility] Comment on above: Result Comment: >10, 000 CFU/mL of Colonies Consistent with Upper Respiratory Li Performed By: #### L [id number] ####[facility] ([facility])[address] [place] [address] GRAM STAIN RESULT Normal [facility] Comment on above: Result Comment: Poly morphonuclear leukocytesGram positive cocci in pairsGram negative bacilliCytocentrifuge sample Performed By: #### L [id number] ####[facility] ([facility])[address] [place] [address] TRIGLYCERIDESon 03-14-2024 FASTING? unknown Normal [facility] Comment on above: Order Comment: Monit or triglycerides while patient is on propofol. Consult Nutrition if greater than 500 mg/dL. Performed By: #### L [id number] ####[facility] [place] [address] Magnesium [Mass/Vol] 84 mg/dL Normal 40-149 [facility] Comment on above: Order Comment: Monit or triglycerides while patient is on propofol. Consult Nutrition if greater than 500 mg/dL. Result Comment: TRIG LYCERIDE REFERENCE RANGE:20 YEARS AND OLDER CARDIOVASCULAR RISKLESS THAN 150 mg/dL LOW [id number] TO 199 mg/dL BORDERLINE ARXA099 mg/dL AND GREATER HIGH RISK Performed By: #### L [id number] ####[facility] ([facility])[address] [place] [address] TROPONIN Ion 03-14-2024 Troponin I.cardiac [Mass/Vol] 0.05 ng/mL High 0.00-0.04 [facility] Comment on above: Performed By: #### L [id number] ####[facility] ([facility])[address] [address] Troponin I.cardiac [Mass/Vol] 0.06 ng/mL High 0.00-0.04 [facility] Comment on above: Performed By: #### L [id number] ####[facility] ([facility])[address] [place] [address] TYPE AND SCREENon 03-14-2024 AB SCREEN Negative Normal [facility] Comment on above: Performed By: #### L [id number] ####[facility], ABO group Nom (Bld) A Normal [facility] Comment on above: Performed By: #### L [id number] ####[facility], RH TYPE IN BLOOD Negative Normal [facility] Comment on above: Performed By: #### L [id number] ####[facility], BI MAMMOGRAM SCREENING [...] IS VERY IMPORTANT TO YOUR HEALTH. THE [employer] GUIDELINES RECOMMEND THAT WOMEN 40 [...] 02-26-2024 Albumin [Mass/Vol] 4.1 g/dL Normal 3.3-5.0 [facility] Comment on above: Performed By: #### 2 [id number] #### [facility] [address] [place] [address] Albumin/Globulin (S) [Mass conc ratio] 1.1 Normal 1.1-2.2 [facility] Comment on above: Performed By: #### 2 [id number] #### [facility] [address] [place] [address] ALP [Catalytic activity/Vol] 47 Int._Unit/L Normal 21-98 [facility] Comment on above: Performed By: #### 2 [id number] #### [facility] [address] [place] [address] ALT No additional P-5'-P [Catalytic activity/Vol] 9 Int._Unit/L Normal 6-46 [facility] Comment on above: Performed By: #### 2 [id number] #### [facility] [address] [place] [address] Anion gap [Moles/Vol] 11 mmol/L Normal 6-16 [facility] Comment on above: Performed By: #### 2 [id number] #### [facility] [address] [place] [address] AST [Catalytic activity/Vol] 16 Int._Unit/L Normal 5-43 [facility] Comment on above: Performed By: #### 2 [id number] #### [facility] [address] [place] [address] Bilirubin [Mass/Vol] 0.4 mg/dL Normal 0.0-1.1 [facility] Comment on above: Performed By: #### 2 [id number] #### [facility] [address] [place] [address] Calcium [Mass/Vol] 9.8 mg/dL Normal 8.9-11.1 [facility] Comment on above: Performed By: #### 2 [id number] #### [facility] [address] [place] [address] Chloride [Moles/Vol] 102 mmol/L Normal 101-111 [facility] Comment on above: Performed By: #### 2 [id number] #### [facility] [address] [place] [address] CO2 [Moles/Vol] 27 mmol/L Normal 21-31 [facility] Comment on above: Performed By: #### 2 [id number] #### [facility] [address] [place] [address] Creatinine [Mass/Vol] 0.6 mg/dL Normal 0.5-1.3 [facility] Comment on above: Performed By: #### 2 [id number] #### [facility] [address] [place] [address] Globulin (S) [Mass/Vol] 3.7 g/dL Normal 1.4-4.0 [facility] Comment on above: Performed By: #### 2 [id number] #### [facility] [address] [place] [address] Glucose [Mass/Vol] 67 mg/dL Normal 55-199 [facility] Comment on above: Performed By: #### 2 [id number] #### [facility] [address] [place] [address] Potassium [Moles/Vol] 4.2 mmol/L Normal 3.5-5.3 [facility] Comment on above: Performed By: #### 2 [id number] #### [facility] [address] [place] [address] Protein [Mass/Vol] 7.8 g/dL Normal 6.0-7.8 [facility] Comment on above: Performed By: #### 2 [id number] #### [facility] [address] [place] [address] Sodium [Moles/Vol] 136 mmol/L Normal 135-145 [facility] Comment on above: Performed By: #### 2 [id number] #### [facility] [address] [place] [address] Urea nitrogen [Mass/Vol] 15 mg/dL Normal 5-21 [facility] Comment on above: Performed By: #### 2 [id number] #### [facility] [address] [place] [address] Urea nitrogen/Creatinine [Mass ratio] 25 No Units High 10-20 [facility] Comment on above: Performed By: #### 2 [id number] #### [facility] [address] [place] [address] General Surgery Office/Clini c Noteon 02-26-2024 General Surgery Office/Clinic Note General Surgery Office/Clinic Note Chief Complaint Hormone positive left breast cancer surveillance visit HPI Staff Emeli is a 63 y.o. female here for 3 month follow up Hx of left breast cancer s/p [place] Node biopsy of left done 04/11/2023 Denies [...] E&M of Est. Patient Low 20-29 Min 33630 Personal history of malignant neoplasm of breast (Z85.3: Personal history of malignant neoplasm of breast) As above Portions of this record may have been created with voice recognition artificial intelligence software, specifically [employer], [employer] and or [employer]. Substitutions may have occurred due to the [...] 50,000 intl units (1.25 mg) oral capsule, 42873 International_Unit= 1 cap(s), Oral, qWeek Allergies No [...] influenza virus vaccine, inactivated 07/14/2014 Recorded Normal [facility] Comment on above: Result Comment: Elec tronically Signed By: Aurora RICE, Lauro Cast.br\Date and Time Signed: 02/26/24 14:44 EDT eGFRon 02-26-2024 eGFR 99 mL/min/1.73 m2 Normal >=59 [facility] Comment on above: Order Comment: Order added by Discern Expert. Performed By: #### 1 [id number] #### [facility] [address] [place] [address] CNOVon 02-20-2024 CNOV Normal [facility] Oncology Progress Noteon Oncology Progress [...] left breast invasive lobular carcinoma, ER +90%, [place] +20 to 30%, HER2/elif 1+, and Ki67 was positive 1%. 2 out of 2 sentinel lymph node with positive for macro metastatic disease. Her tumor was discussed at the [facility] tumor board patient is to obtain [...] Lumpectomy with wire-guided localization LYMPH NODE SAMPLING: [place] lymph node(s) SPECIMEN INTEGRITY: multiple specimens (A [...] to adjuv (more content not included)... Normal [facility] Consent for Treatmenton 11-15 Consent for Treatment [id number] Normal [facility] Immunoglobs. A/E/G/Mon 11-26 IgA Quant duplt test Invalid Interpretation Code [facility] Comment on above: Performed By: #### 2 [id number], [id number], [id number], [id number], [id number], [id number] ####[facility] [id number] [place] [address] IgG Quant duplt test Invalid Interpretation Code [facility] Comment on above: Performed By: #### 2 [id number], [id number], [id number], [id number], [id number], [id number] ####[place] [address] [place] [address] IgM Quant duplt test Invalid Interpretation Code [facility] Comment on above: Performed By: #### 2 [id number], [id number], [id number], [id number], [id number], [id number] ####[place] [place] [id number] [employer],Qn,Son Immunoglobulin light chains.kappa.free (S) [Mass/Vol] 32.2 mg/L High 3.3-19.4 [facility] Comment on above: Performed By: #### 2 [id number], 96706942, 1325579, 81176255, 4209763, 04822813 ####[facility] [address] [place] [address] Immunoglobulin light chains.kappa.free/Imm unoglobulin light chains.lambda.free (S) [Mass ratio] 1.11 Invalid Interpretation Code 0.26-1.65 [facility] Comment on above: Result Comment: Perf ormed at: [facility] [place] [address] [place], [place] [id number] PhD Adelfo Shannon Performed By: #### 2 32269466, 67319173, 7931901, 28216758, 2327292, 26124400 ####[facility] [address] [place] [address] Immunoglobulin light chains.lambda.free [Mass/Vol] 28.9 mg/L High 5.7-26.3 [facility] Comment on above: Performed By: #### 2 41638990, 24279925, 0135158, 23839875, 0164417, 40895097 ####[address] [place] [address] JULIO and PE, Serumon 11-26-19 24 Albumin [Mass/Vol] 3.6 g/dL Invalid Interpretation Code 2.9-4.4 [facility] Comment on above: Performed By: #### 2 01244201, 97444905, 7860833, 87334989, 1450436, 58815128 ####[address] [address] Albumin/Globulin [Mass ratio] 0.9 {ratio} Invalid Interpretation Code 0.7-1.7 [facility] Comment on above: Performed By: #### 2 70602056, 80600122, 1003687, 31933168, 5943985, 55147342 ####[address] [address] Alpha 1 globulin Elph [Mass/Vol] 0.4 g/dL Invalid Interpretation Code 0.0-0.4 [facility] Comment on above: Performed By: #### 2 85891420, 39812484, 3412467, 74811382, 8229220, 44998346 ####[address] [place] [address] Alpha 2 globulin Elph [Mass/Vol] 0.9 g/dL Invalid Interpretation Code 0.4-1.0 [facility] Comment on above: Performed By: #### 2 89898777, 70441874, 3184957, 21133576, 8618745, 11647405 ####[address] [address] Beta globulin Elph [Mass/Vol] 1.2 g/dL Invalid Interpretation Code 0.7-1.3 [facility] Comment on above: Performed By: #### 2 12036484, 85556955, 7518171, 08533999, 5949529, 86211831 ####[facility] [address] [place] [address] Gamma globulin Elph [Mass/Vol] 1.7 g/dL Invalid Interpretation Code 0.4-1.8 [facility] Comment on above: Performed By: #### 2 88515243, 60529684, 2132226, 20446510, 8852197, 88555184 ####[facility] [address] [place] [address] Globulin (S) [Mass/Vol] 4.2 g/dL High 2.2-3.9 [facility] Comment on above: Performed By: #### 2 68943343, 69255887, 8734935, 01635811, 8608794, 66089747 ####[facility] [address] [place] [address] IgA [Mass/Vol] 552 mg/dL High 87-352 [facility] Comment on above: Performed By: #### 2 13624594, 34050850, 2981811, 78789477, 8498727, 83283717 ####[address] [place] [address] IgG [Mass/Vol] 1650 mg/dL High 586-1602 [facility] Comment on above: Performed By: #### 2 31280746, 14020361, 9442329, 31792323, 3132408, 36446957 ####[facility] [address] [place] [address] IgM [Mass/Vol] 112 mg/dL Invalid Interpretation Code 26-217 [facility] Comment on above: Performed By: #### 2 86582654, 88775875, 6419289, 72946921, 9224986, 75070913 ####[facility] [address] [place] [address] Interpretation IEP [Interp] Comment Invalid Interpretation Code [facility] Comment on above: Result Comment: No m onoclonality detected. Performed By: #### 2 43399797, 90357942, 0624971, 27593115, 8743564, 47953812 ####[facility] [address] [place] [address] Laboratory comment Yossi (Report) Comment Invalid Interpretation Code [facility] Comment on above: Result Comment: Prot ein electrophoresis scan will follow via computer, mail, or crop grain or livestock farmer delivery. Performed at: [facility] [id number] PhD Adelfo Shannon Performed By: #### 2 59570677, 54506894, 7739671, 82612447, 1426455, 83786647 ####[facility] [address] [place] [address] Protein [Mass/Vol] 7.8 g/dL Invalid Interpretation Code 6.0-8.5 [facility] Comment on above: Performed By: #### 2 03224996, 88157102, 2455622, 44952944, 5307597, 54423531 ####[facility] [address] [place] [address] Protein.monoclonal Elph [Mass/Vol] Not Observed Invalid Interpretation Code Not Observed [facility] Comment on above: Performed By: #### 2 24785055, 46116866, 7082607, 20663560, 6506487, 87726230 ####[facility] [address] [place] [address] Immunoglobs. A/E/G/Mon 11-25 IgE Qn 21 International_Unit/mL Invalid Interpretation Code 6-495 [facility] Comment on above: Result Comment: Perf ormed at: [facility] [address] [id number] MD José Miguel Shipman Performed By: #### 2 57435845, 64613888, 8441057, 71678443, 8789187, 28884503 ####[address] [place] [address] CBC w/ Auto Diffon 4 Basophils/100 WBC (Bld) 0.6 % Normal 0.0-2.0 [facility] Comment on above: Performed By: #### 2 42104018, 17693635, 2493226, 76310112, 3226402, 33973968 ####[address] [address] Basophils/Leukocytes Auto (Bld) [Pure # fraction] 0.0 E9/L Normal 0.0-0.2 [facility] Comment on above: Performed By: #### 2 99276290, 45003686, 2825606, 67853218, 2603746, 18298364 ####[address] [address] Eosinophils (Bld) [#/Vol] 0.0 E9/L Normal 0.0-0.5 [facility] Comment on above: Performed By: #### 2 88400786, 52139606, 4133300, 74762910, 2383654, 78675168 ####[address] [address] Eosinophils/100 WBC (Bld) 0.9 % Normal 0.0-8.0 [facility] Comment on above: Performed By: #### 2 82072842, 05137018, 5303121, 83095411, 5251438, 60486878 ####[address] [address] Erythrocyte distribution width (RBC) [Ratio] 14.3 % High 10.9-14.2 [facility] Comment on above: Performed By: #### 2 88603532, 85414675, 3991904, 59644111, 5376910, 80736520 ####[address] [address] Hematocrit (Bld) [Volume fraction] 37.7 % Normal 34.0-46.0 [facility] Comment on above: Performed By: #### 2 44082634, 80243456, 5130954, 70452361, 7312602, 82226399 ####[facility] [address] [place] [address] Hemoglobin (Bld) [Mass/Vol] 12.2 g/dL Normal 12.0-16.0 [facility] Comment on above: Performed By: #### 2 56007083, 31819745, 0120336, 74250945, 1399145, 67903119 ####[facility] [address] [place] [address] Lymphocytes (Bld) [#/Vol] 0.7 E9/L Low 1.0-4.0 [facility] Comment on above: Performed By: #### 2 89874320, 88503999, 7373348, 45979458, 2262857, 61300097 ####[address] [address] Lymphocytes/100 WBC (Bld) 16.0 % Normal 14.0-50.0 [facility] Comment on above: Performed By: #### 2 47014765, 84613660, 5427285, 00156370, 3381786, 17999196 ####[address] [address] MCH (RBC) [Entitic mass] 29.4 pg Normal 27.0-34.0 [facility] Comment on above: Performed By: #### 2 97763340, 30170791, 0897170, 75999958, 6149184, 69553695 ####[address] [address] MCHC (RBC) [Mass/Vol] 32.3 g/dL Normal 31.4-36.0 [facility] Comment on above: Performed By: #### 2 81811254, 76818918, 1992558, 77560401, 9690669, 56083564 ####[address] [place] [address] MCV (RBC) [Entitic vol] 90.9 fL Normal 80.0-100.0 [facility] Comment on above: Performed By: #### 2 56271259, 93918528, 1547779, 90718516, 7460626, 85431894 ####[address] [address] Monocytes (Bld) [#/Vol] 0.6 E9/L Normal 0.2-1.0 [facility] Comment on above: Performed By: #### 2 58574766, 34320012, 1529260, 63429230, 5061535, 19292909 ####[address] [address] Neutrophils (Bld) [#/Vol] 3.2 E9/L Normal 2.0-7.5 [facility] Comment on above: Performed By: #### 2 37737196, 17845745, 7567887, 52002301, 3293112, 05398777 ####[address] [address] Neutrophils/100 WBC (Bld) 68.5 % Normal 36.0-75.0 [facility] Comment on above: Performed By: #### 2 59021317, 37513922, 5960811, 51533250, 9402249, 84075289 ####[address] [address] Platelet 290.0 E9/L Normal 150.0-500. 0 [facility] Comment on above: Performed By: #### 2 06867450, 30273468, 5105907, 90287712, 2436413, 39328530 ####[address] [address] Platelet mean volume (Bld) [Entitic vol] 6.9 fL Normal 6.4-10.8 [facility] Comment on above: Performed By: #### 2 70290818, 92559785, 4144930, 21507157, 8401444, 16047704 ####[facility] [address] [place] [address] RBC (Bld) [#/Vol] 4.2 E12/L Low 4.3-5.9 [facility] Comment on above: Performed By: #### 2 12988001, 21322672, 0153164, 63631036, 0072273, 85144464 ####[facility] [address] [place] [address] WBC corrected for nucl RBC Auto (Bld) [#/Vol] 4.6 E9/L Normal 4.0-11.0 [facility] Comment on above: Performed By: #### 2 95287542, 20794944, 6241009, 23164375, 0625134, 75670238 ####[facility] [address] [place] [address] CHEMISTRYOrdered By: SYSTEM SYSTEM on 11-20-2023 Albumin [...] 11-20-2023 Albumin [Mass/Vol] 4.1 g/dL Normal 3.3-5.0 [facility] Comment on above: Performed By: #### 2 74089138, 06346387, 3282179, 75443395, 5337664, 98246516 ####[facility] [address] [place] [address] Albumin/Globulin (S) [Mass conc ratio] 1.0 Low 1.1-2.2 [facility] Comment on above: Performed By: #### 2 47077987, 36835004, 8333755, 81605749, 0042865, 97869215 ####[facility] [address] [place] [address] ALP [Catalytic activity/Vol] 52 Int._Unit/L Normal 21-98 [facility] Comment on above: Performed By: #### 2 99640204, 82260713, 4432079, 13174228, 4406692, 28401741 ####[facility] [address] [place] [address] ALT No additional P-5'-P [Catalytic activity/Vol] 13 Int._Unit/L Normal 6-46 [facility] Comment on above: Performed By: #### 2 68695922, 17037456, 1144822, 40337809, 4577027, 49183819 ####[facility] [address] [place] [address] Anion gap [Moles/Vol] 11 mmol/L Normal 6-16 [facility] Comment on above: Performed By: #### 2 85541528, 84037479, 0824180, 64125191, 1676293, 41933833 ####[facility] [address] [place] [address] AST [Catalytic activity/Vol] 19 Int._Unit/L Normal 5-43 [facility] Comment on above: Performed By: #### 2 82600338, 13130794, 4182796, 25843064, 4171541, 66353598 ####[facility] [address] [place] [address] Bilirubin [Mass/Vol] 0.6 mg/dL Normal 0.0-1.1 [facility] Comment on above: Performed By: #### 2 67077427, 03793416, 2668881, 86578589, 0545609, 34307421 ####[facility] [address] [place] [address] Calcium [Mass/Vol] 9.4 mg/dL Normal 8.9-11.1 [facility] Comment on above: Performed By: #### 2 60806379, 41984636, 3216029, 87109349, 1453797, 16118218 ####[facility] [address] [place] [address] Chloride [Moles/Vol] 103 mmol/L Normal 101-111 [facility] Comment on above: Performed By: #### 2 73661228, 08835920, 4986032, 58772891, 4754373, 13156933 ####[facility] [address] [place] [address] CO2 [Moles/Vol] 28 mmol/L Normal 21-31 [facility] Comment on above: Performed By: #### 2 53694227, 74455157, 7677718, 04976538, 4689453, 99976424 ####[facility] [address] [place] [address] Creatinine [Mass/Vol] 0.6 mg/dL Normal 0.5-1.3 [facility] Comment on above: Performed By: #### 2 84853430, 68118937, 5438012, 91347084, 3457577, 17459499 ####[facility] [address] [place] [address] Globulin (S) [Mass/Vol] 4.0 g/dL Normal 1.4-4.0 [facility] Comment on above: Performed By: #### 2 16813778, 50228119, 9591725, 17364182, 2627309, 20974837 ####[facility] [address] [place] [address] Glucose [Mass/Vol] 84 mg/dL Normal 55-199 [facility] Comment on above: Performed By: #### 2 52159295, 92601044, 9148755, 68122436, 4253667, 01579949 ####[facility] [address] [place] [address] Potassium [Moles/Vol] 4.2 mmol/L Normal 3.5-5.3 [facility] Comment on above: Performed By: #### 2 85080910, 72641827, 3027063, 37275498, 8106660, 53238441 ####[facility] [address] [place] [address] Protein [Mass/Vol] 8.1 g/dL High 6.0-7.8 [facility] Comment on above: Performed By: #### 2 41447651, 12976620, 9170123, 93754332, 5716753, 38074585 ####[facility] [address] [place] [address] Sodium [Moles/Vol] 138 mmol/L Normal 135-145 [facility] Comment on above: Performed By: #### 2 74103322, 27478178, 1179052, 65204512, 8348076, 51667464 ####[facility] [address] [place] [address] Urea nitrogen [Mass/Vol] 17 mg/dL Normal 5-21 [facility] Comment on above: Performed By: #### 2 33841382, 09680855, 2481381, 33911144, 0691476, 53203576 ####[facility] [address] [place] [address] Urea nitrogen/Creatinine [Mass ratio] 28 No Units High 10-20 [facility] Comment on above: Performed By: #### 2 31091653, 30211833, 7750149, 40836907, 0499421, 81683730 ####[facility] [address] [place] [address] Consent for Treatmenton Consent for Treatment [id number]#1.00TIFF Normal [facility] HEMATOLOGYOrdered By: SYSTEM SYSTEM on [...] 11-20-2023 eGFR 100 mL/min/1.73 m2 Normal >=59 [facility] Comment on above: Order Comment: Order added by Discern Expert. Performed By: #### 2 90138795, 48031638, 1999962, 08911976, 8582120, 28372995 ####[facility] [address] [place] [address] General Surgery Office/Clini c Noteon 11-14-2023 General Surgery Office/Clinic Note Chief Complaint 3 month follow up HPI Staff Emeli is a 62 y.o. female here for 3 month follow up Hx of left breast cancer s/p [place] Node biopsy of left done 04/11/2023 Denies [...] with voice recognition artificial intelligence software, specifically [employer], [employer] and or [employer]. Substitutions may have occurred due to the inherent limitations of voice recognition and artificial intelligence software. ATTESTATION: Documentation services were performed after patient or guardian consented to allow [employer] to record this visit. SANTA weight reduction specialist and provider reviewed before signing. SANTA: [...] 50,000 intl units (1.25 mg) oral capsule, [address] International_Unit= 1 cap(s), Oral, qWeek Allergies No [...] Recorded diphthe (more content not included)... Normal [facility] Comment on above: Result [...] What to do next Scheduled Follow-Up Appointments Monday. 2023 2:30 PM EDT With: Sylvain RICE, Neftali Ling Where: [facility] Monday 3:00 PM EDT With: Lauro Simon MD Where: [facility] General Surgery [place] Normal [facility] Insurance Correspondenceon 0 09-25-2023 Insurance Correspondence [id number]#1.00TIFF Normal [facility] Consent for Treatmenton 08-17 Consent for Treatment [id number]#1.00TIFF Normal [facility] ED Pat Eduon 09-04-2023 ED [facility] Nephrology Protein Blood Test Why am I [...] including vitamins, herbs, eye drops, creams, and dngb-sif-zffnenj medicines. ? Any medical conditions you have. [...] Albumin: ? Premature infant: 3?4.2 g/dL. ? [place]: 3.5?5.4 g/dL. ? : 4.4?5.4 g/dL. ? [...] Reviewed: 03/26/2021 Elsevier Patient Education ? 2022 [employer] Normal [facility] Oncology Progress Noteon Oncology Progress Note Chief Complaint Breast CA Pt has no major ques/concerns for doc today. Diagnoses 1. Breast cancer, left (C50.912: Malignant neoplasm of unspecified site of left female breast) Oncological History/ROS/PE/Assessment and Plan Chief Complaint Left breast invasive lobular carcinoma, ER +90%, [place] +20 to 30%, HER2/elif 1+, and Ki67 [...] left breast invasive lobular carcinoma, ER +90%, [place] +20 to 30%, HER2/eilf 1+, and Ki67 was positive 1%. 2 out of 2 sentinel lymph node with positive for macro metastatic disease. Her tumor was discussed at the [facility] tumor board patient is to obtain [...] Lumpectomy with wire-guided localization LYMPH NODE SAMPLING: [place] lymph node(s) SPECIMEN INTEGRITY: multiple specimens (A [...] invasive tumor cells, performed on previous biopsy ([id number]), please refer to previous report for details PROGESTERONE RECEPTOR: 20-30% of invasive tumor cells, performed on previous biopsy (386), please refer to previous report for details Ki-67 INDEX OF INVASIVE TUMOR CELLS: Approximately 1% of invasive tumor cells, performed on previous biopsy (1355), please refer to previous report for details HER2/ELIF STUDIES: 1+ (IHC), performed on previous biopsy (5548), please refer to previous report for details [...] score of (more content not included)... Normal [facility] Outside Oncologyon 4 Outside Oncology [id number]#1.00TIFF Normal [facility] CHEMISTRYOrdered By: SYSTEM SYSTEM on [...] for Treatmenton 08-17 Consent for Treatment [id number]#1.00TIFF Normal [facility] Hep Func Panelon 09-01-2023 Albumin [Mass/Vol] 4.0 g/dL Normal 3.3-5.0 [facility] Comment on above: Performed By: #### 2 706226 ####[address] [place] [address] Albumin/Globulin [Mass ratio] 0.9 {ratio} Low 1.1-2.2 [facility] Comment on above: Performed By: #### 2 [address] ####[address] [address] Alk Phos 67 Int._Unit/L Normal 21-98 [facility] Comment on above: Performed By: #### 2 [address] ####[address] [address] ALT 11 Int._Unit/L Normal 6-46 [facility] Comment on above: Performed By: #### 2 [address] ####[address] [address] AST 18 Int._Unit/L Normal 5-43 [facility] Comment on above: Performed By: #### 2 [address]38[address] ####[address] [address] Bili Direct 0.1 mg/dL Normal 0.0-0.4 [facility] Comment on above: Performed By: #### 2 932305 ####[address] [address] Bili Indirect 0.4 mg/dL Normal 0.1-0.9 [facility] Comment on above: Performed By: #### 2 809684 ####[address] [address] Bili Total 0.5 mg/dL Normal 0.0-1.1 [facility] Comment on above: Performed By: #### 2 644758 ####[address] [address] Globulin (S) [Mass/Vol] 4.6 g/dL High 1.4-4.0 [facility] Comment on above: Performed By: #### 2 398734 ####[address] [address] Protein [Mass/Vol] 8.6 g/dL High 6.0-7.8 [facility] Comment on above: Performed By: #### 2 109[address] ####[facility] [address] [place] [address] Ambulatory Visit Summaryon 0 08-07-2023 Ambulatory Visit [...] PM EDT With: Lauro Simon MD Where: [facility] General Surgery [place] Normal [facility] General Surgery Office/Clini c Noteon 08-07-2023 General Surgery Office/Clinic Note Chief Complaint 3 month follow up HPI Staff Emeli is a 62 y.o. female here for 3 month follow up Hx of left breast cancer s/p [place] Node biopsy of left done 04/11/2023 denies breast changes She started letrozole 2.5 mg History of Present Illness 62-year-old female status post left breast needle localized lumpectomy, left axillary sentinel lymph node biopsy performed for ER positive [place] HER2 negative T1 N1 [place] breast cancer 2 of 2 lymph nodes found to have metastases, low Oncotype DX with chemotherapy declined by medical oncology, completed radiation therapy at [facility] here today for breast cancer surveillance [...] normal Assessment/Plan 62-year-old female with ER positive [place] HER2 negative breast cancer status post needle left breast localized lumpectomy left sentinel lymph node biopsy performed March 2023 here for surveillance visit 1. Breast cancer, left (C50.912: Malignant neoplasm of unspecified site of left female breast) Follow-up 3 months Ordered: E&M of Est. Patient Low 20-29 Min [address]200 2. Encounter for follow-up surveillance of breast cancer (Z08: Encounter for follow-up examination after completed treatment for malignant neoplasm) As above Ordered: E&M of Est. Patient Low 20-29 Min [address] Portions of this record may have been created with voice recognition artificial intelligence software, specifically [employer], [employer] and or [employer]. Substitutions may have occurred due to the [...] 50,000 intl units (1.25 mg) oral capsule, [address] International_Unit= 1 cap(s), Oral, qWeek Allergies No [...] virus vaccine, inactivated 07/14/2014 Recorded Normal [facility] Comment on above: Result Comment: Elec tronically Signed By: Aurora RICE, Lauro Peacock\Date and Time Signed: 08/07/23 16:29 EST BD Bone Density DEXAon 06-01 BD Bone Density DEXA Exam Date/Time: 05/30/2023 14:43 EST Reason for Exam: M85.88;correction medication use Report IMPRESSION: OSTEOPENIA. The 10 [...] DEXA DATE: 05/30/2023 2:21 PM CLINICAL HISTORY: correction medication use, M85.88. COMPARISON: None available. COMMENTS: [...] Dale MD Transcribed by: MEAGAN Technologist: VINCE Chowdhury [facility] Consent for Treatmenton 05-17 Consent for Treatment [id number]#1.00TIFF [facility] CHEMISTRYOrdered By: SYSTEM SYSTEM on 05-22-2023 [...] 0.7 mg/dL Normal 0.5 - 1.3 mg/dL [facility] [facility] Remisol GFR/1.73 sq M.predicted among non-blacks MDRD (S/P/Bld) [Vol rate/Area] 97 mL/min/1.73 m2 Normal >=59mL/min /1.73 m2 [facility] [place] [facility] Chem S Glucose [Mass/Vol] 93 mg/dL Normal 55 - 199 mg/dL [facility] Potassium [Moles/Vol] 4.1 mmol/L Normal 3.5 - 5.3 mmol/L [facility] Sodium [Moles/Vol] 138 mmol/L Normal 135 - 145 mmol/L [facility] [place] Remisol Urea nitrogen [Mass/Vol] 21 mg/dL Normal 5 - 21 mg/dL [facility] [place] Remisol HEMATOLOGYOrdered By: Rama Davenport on 02-22-2023 Erythrocyte distribution width (RBC) [Ratio] 15.4 % High 10.9 - 14.2 % [facility] [place] HemeAutoSS Hematocrit (Bld) [Volume fraction] 36.5 % Normal 34.0 - 46.0 % [facility] [place] HemeAutoSS Hemoglobin (Bld) [Mass/Vol] 12.4 g/dL Normal 12.0 - 16.0 gm/dL [facility] [place] HemeAutoSS MCH (RBC) [Entitic mass] 29.5 pg Normal 27.0 - 34.0 pg [facility] [place] HemeAutoSS MCHC (RBC) [Mass/Vol] 34.0 g/dL Normal 31.4 - 36.0 gm/dL [facility] [place] HemeAutoSS MCV (RBC) [Entitic vol] 86.8 fL Normal 80.0 - 100.0 fL [facility] [place] HemeAutoSS Platelet mean volume (Bld) [Entitic vol] 7.1 fL Normal 6.4 - 10.8 fL [facility] [place] HemeAutoSS Platelets (Bld) [#/Vol] 275.0 E9/L Normal 150.0 - 500.0 E9/L [facility] [employer]eAutoSS RBC (Bld) [#/Vol] 4.2 E12/L Low 4.3 - 5.9 E12/L [facility] HemeAutoSS WBC corrected for nucl RBC Auto (Bld) [#/Vol] 6.6 E9/L Normal 4.0 - 11.0 E9/L [facility] [place] HemeAutoSS CULTURE SPUTUMon 12-10-2022 CULTURE SPUTUM Culture Observations : NORMAL RESPIRATORY LI. Normal [facility] Comment on above: Performed By: #### C BC #### [facility] [address] [place] [address] Dr. Ildefonso Finn SPUTUM GRAM STAINon 12-11-19 COMMENTS Normal [facility] Comment on above: Performed By: #### S PUTGS #### [facility] [address] [address] [address] Ildefonso Finn DIPHTHEROIDS Normal [facility] Comment on above: Performed By: #### S PUTGS #### [facility] [address] [place] [address] Dr. Ildefonso Finn EPITHELIALS <25 [facility] Comment on above: Performed By: #### S PUTGS #### [facility] [address] [place] [address] Dr. Ildefonso Finn FUNGAL ELEMENTS [facility] Comment on above: Performed By: #### S PUTGS #### [facility] [address] [address] [address] Ildefonso Finn GRAM NEG BACILLI [facility] Comment on above: Performed By: #### S PUTGS #### [facility] [address] [place] [address] Dr. Ildefonso INGRAM NEG DIPPLOCOCCI [facility] Comment on above: Performed By: #### S PUTGS #### [facility] [address] [place] [address] Dr. Ildefonso Finn GRAM POS BACILLI [facility] Comment on above: Performed By: #### S PUTGS #### [facility] [address] [place] [address] Dr. Ildefonso Finn GRAM POSITIVE COCCI MODERATE Normal [facility] Comment on above: Performed By: #### S PUTGS #### [facility] [address] [place] [address] Dr. Ildefonso Finn WBC (Bld) [#/Vol] 10*3/uL [facility] Comment on above: Performed By: #### S PUTGS #### [facility] [address] [place] [address] Dr. Ildefonso Finn Covid-19 PCR (CVDTB)on SARS-CoV-2 (COVID-19) RNA KARLA+probe Ql (Unsp spec) Not detected Normal NOT DETECTED [facility] Comment on above: Result Comment: When diagnostic [...] for this test is supported by the Environmental Protection Forester of Health and Human Service's declaration that [...] used). Performed By: #### C VDTBH #### [facility] [address] [address] [address] Ildefonso Finn INFLUENZA A AND B AGon 09-15 INFLUANEGH SEE BELOW Normal [facility] Comment on above: Result Comment: Nega tive for Flu A protein angiten. Infection due to Flu A cannot be ruled out. Flu A angiten in the sample may be below the detection limit of the test. Performed By: #### I NFLUAB #### [facility] [address] [address] [address] Ildefonso Finn INFLUBNEG SEE BELOW Normal [facility] Comment on above: Result Comment: Nega tive for Flu B protein antigen. Infection due to Flu B cannot be ruled out. Flu B antigen in the sample may be below the detection limit of the test. Performed By: #### I NFLUAB #### [facility] [address] [address] [address] Ildefonso Finn INFLUENZA A AG Negative Normal NEGATIVE SEE COMMENT [facility] Comment on above: Performed By: #### I NFLUAB #### [facility] [address] [place] [address] Dr. Ildefonso Finn INFLUENZA B AG Negative Normal NEGATIVE SEE COMMENT [facility] Comment on above: Performed By: #### I NFLUAB #### [facility] [address] [place] [address] Dr. Ildefonso Finn OCC BLD IMMUNO SCREENon 06-17 OCCULT BLOOD Negative Normal NEGATIVE [facility] Comment on above: Performed By: #### O BSCRN #### [facility] [address] [place] [address] Dr. Ildefonso Finn CBC AUTO DIFFon 07-02-2022 BASO # 0.0 103/ul Normal 0.0-0.1 [facility] Comment on above: Performed By: #### C BC #### [facility] [address] [place] [address] Dr. Ildefonso Finn Basophils/100 WBC (Bld) 0.8 % Normal 0.2-2.0 [facility] Comment on above: Performed By: #### C BC #### [facility] [address] [place] [address] Dr. Ildefonso Finn EO # 0.1 103/ul Normal 0.0-0.7 [facility] Comment on above: Performed By: #### C BC #### [facility] [address] [place] [address] Dr. Ildefonso Finn Eosinophils/100 WBC (Bld) 1.1 % Normal 0.9-7.0 [facility] Comment on above: Performed By: #### C BC #### [facility] [address] [place] [address] Dr. Ildefonso Finn Erythrocyte distribution width (RBC) [Ratio] 13.4 % Normal 11.0-15.0 [facility] Comment on above: Performed By: #### C BC #### [facility] [address] [place] [address] Dr. Ildefonso Finn Hematocrit (Bld) [Volume fraction] 39.5 % Normal 36.0-48.0 [facility] Comment on above: Performed By: #### C BC #### [facility] [address] [place] [address] Dr. Ildefonso Finn Hemoglobin (Bld) [Mass/Vol] 12.9 g/dL Normal 12.0-16.0 [facility] Comment on above: Performed By: #### C BC #### [facility] [address] [place] [address] Dr. Ildefonso Finn IG # 0.01 10e3/ul Normal 0.00-0.03 [facility] Comment on above: Performed By: #### C BC #### [facility] [address] [place] [address] Dr. Ildefonso Finn IG % 0.2 % Normal 0.0-0.5 [facility] Comment on above: Performed By: #### C BC #### [facility] [address] [place] [address] Dr. Ildefonso Finn LYMPH # 1.1 103/ul Critically low 1.2-3.8 [facility] Comment on above: Performed By: #### C BC #### [facility] [address] [place] [address] Dr. Ildefonso Finn Lymphocytes/100 WBC (Bld) 20.3 % Critically low 20.5-60.0 [facility] Comment on above: Performed By: #### C BC #### [facility] [address] [place] [address] Dr. Ildefonso Finn MANUAL DIFF REQ NO Normal [facility] Comment on above: Performed By: #### C BC #### [facility] [address] [place] [address] Dr. Ildefonso Finn MCH (RBC) [Entitic mass] 29.3 pg Normal 26.7-34.0 [facility] Comment on above: Performed By: #### C BC #### [facility] [address] [place] [address] Dr. Ildefonso Finn MCHC (RBC) [Mass/Vol] 32.7 g/dL Normal 29.9-35.2 [facility] Comment on above: Performed By: #### C BC #### [facility] [id number] Ildefonso Finn MCV (RBC) [Entitic vol] 89.8 fL Normal 81.0-99.0 [facility] Comment on above: Performed By: #### C BC #### [facility] [address] [address] [address] Ildefonso Finn MONO # 0.5 103/ul Normal 0.3-0.8 [facility] Comment on above: Performed By: #### C BC #### [facility] [address] [place] [address] Dr. Ildefonso Finn Monocytes/100 WBC (Bld) 10.0 % Normal 1.7-12.0 [facility] Comment on above: Performed By: #### C BC #### [facility] [address] [place] [address] Dr. Ildefonso Finn NEUT # 3.6 103/ul Normal 1.4-6.5 [facility] Comment on above: Performed By: #### C BC #### [facility] [address] [place] [address] Dr. Ildefonso Finn Neutrophils/100 WBC (Bld) 67.6 % Normal 43.0-75.0 [facility] Comment on above: Performed By: #### C BC #### [facility] [address] [place] [address] Dr. Ildefonso Finn Platelet mean volume (Bld) [Entitic vol] 9.0 fL Critically low 9.5-13.5 [facility] Comment on above: Performed By: #### C BC #### [facility] [address] [place] [address] Dr. Ildefonso Finn PLT 290 103/ul Normal 150-450 [facility] Comment on above: Performed By: #### C BC #### [facility] [address] [place] [address] Dr. Ildefonso Finn RBC 4.40 106/ul Normal 4.20-5.40 [facility] Comment on above: Performed By: #### C BC #### [facility] [address] [place], [place] [id number] Dr. Ildefonso Finn WBC 5.3 103/ul Normal 4.0-11.0 [facility] Comment on above: Performed By: #### C BC #### [facility] [address] [place] [address] Dr. Ildefonso Finn FREE THYROXINE INDEX T7on FTI 2.56 Normal 1.30-4.50 [facility] Comment on above: Performed By: #### C BC #### [facility] [address] [place] [address] Dr. Ildefonso Finn T3U 32.0 % Normal 30.0-39.0 [facility] Comment on above: Performed By: #### C BC #### [facility] [address] [place] [address] Dr. Ildefonso Finn T4 [Mass/Vol] 8.00 ug/dL Normal 4.80-13.90 [facility] Comment on above: Performed By: #### C BC #### [facility] [address] [place] [address] Dr. Ildefonso Finn GLYCOHEMOGLOBIN A1Con 2021 ADA RECOMMENDATION SEE BELOW Normal [facility] Comment on above: Result Comment: ADA RECOMMENDED LIMIT 4.0 - 6.0 ADA THERAPEUTIC TARGET < 7.0 ACTION SUGGESTED > 7.0 Performed By: #### A 1C #### [facility] [address] [place] [address] Dr. Ildefonso Finn Glucose [Mass/Vol] 114 mg/dL Normal [facility] Comment on above: Performed By: #### A 1C #### [facility] [address] [place] [address] Dr. Ildefonso Finn HbA1c (Bld) [Mass fraction] 5.6 % Normal 4.5-6.2 [facility] Comment on above: Performed By: #### A 1C #### [facility] [address] [place] [address] Dr. Ildefonso Finn IRONon 07-02-2022 Iron [Mass/Vol] 87.0 ug/dL Normal 50.0-170.0 [facility] Comment on above: Performed By: #### I PRISCILLA #### [facility] [address] [address] [address] Ildefonso Finn LIPID PROFILEon 07-02-2022 CHOL-HDL RATIO NORM SEE BELOW Normal [facility] Comment on above: Result Comment: 3.3 - 4.4 LOW RISK 4.4 - 7.1 AVERAGE RISK 7.1 - 11.0 MODERATE RISK >11.0 HIGH RISK Performed By: #### C BC #### [facility] [address] [address] [address] Ildefonso Finn Cholesterol [Mass/Vol] 173 mg/dL Normal <=200 [facility] Comment on above: Performed By: #### C BC #### [facility] [address] [address] [address] Ildefonso Finn Cholesterol in HDL [Mass/Vol] 74 mg/dL Critically high 40-60 [facility] Comment on above: Performed By: #### C BC #### [facility] [address] [address] [address] Ildefonso Finn Cholesterol in LDL [Mass/Vol] 90.6 mg/dL Normal [facility] Comment on above: Performed By: #### C BC #### [facility] [address] [address] [address] Ildefonso Finn Cholesterol.total/Cho lesterol in HDL [Mass ratio] 2.3 {ratio} Normal [facility] Comment on above: Performed By: #### C BC #### [facility] [address] [address] [address] Ildefonso Finn HDL NORMAL > or = 60 mg/dl - LO W CARDIOVASCULAR RISK <40 mg/dl - HIGH CARDIOVASCULAR RISK Normal [facility] Comment on above: Performed By: #### C BC #### [facility] [address] [id number] Ildefonso Finn LDL CALC NORMAL SEE BELOW Normal [facility] Comment on above: Result Comment: <100 mg/dl OPTIMAL 100 - 129 mg/dl NEAR OR ABOVE OPTIMAL 130 - 159 mg/dl BORDERLINE HIGH 160 - 189 mg/dl HIGH >190 mg/dl VERY HIGH Performed By: #### C BC #### [facility] [address] [place] [address] Dr. Ildefonso Finn Triglyceride [Mass/Vol] 42 mg/dL Normal <=150 [facility] Comment on above: Performed By: #### C BC #### [facility] [address] [place] [address] Dr. Ildefonso Finn VLDL CALC 8.4 mg/dL Normal [facility] Comment on above: Performed By: #### C BC #### [facility] [address] [place] [address] Dr. Ildefonso Finn PROF 14(COMP METB)on 022 Albumin [Mass/Vol] 3.6 g/dL Normal 3.4-5.0 [facility] Comment on above: Performed By: #### C BC #### [facility] [address] [place] [address] Dr. Ildefonso Finn Albumin/Globulin [Mass ratio] 0.8 {ratio} Normal [facility] Comment on above: Performed By: #### C BC #### [facility] [address] [place] [address] Dr. Ildefonso Finn ALP [Catalytic activity/Vol] 74 U/L Normal 46-116 [facility] Comment on above: Performed By: #### C BC #### [facility] [address] [place] [address] Dr. Ildefonso Finn ALT [Catalytic activity/Vol] 15 U/L Normal 14-59 [facility] Comment on above: Performed By: #### C BC #### [facility] [address] [place] [address] Dr. Ildefonso Finn Anion gap [Moles/Vol] 7.8 mmol/L Normal [facility] Comment on above: Performed By: #### C BC #### [facility] [address] [place] [address] Dr. Ildefonso Finn AST [Catalytic activity/Vol] 21 U/L Normal 15-37 [facility] Comment on above: Performed By: #### C BC #### [facility] [address] [place] [address] Dr. Ildefonso Finn Bilirubin [Mass/Vol] 0.4 mg/dL Normal 0.2-1.0 [facility] Comment on above: Performed By: #### C BC #### [facility] [address] [place] [address] Dr. Ildefonso Finn Calcium [Mass/Vol] 9.0 mg/dL Normal 8.5-10.1 [facility] Comment on above: Performed By: #### C BC #### [facility] [address] [place] [address] Dr. Ildefonso Finn Chloride [Moles/Vol] 103 mmol/L Normal 98-107 [facility] Comment on above: Performed By: #### C BC #### [facility] [address] [place] [address] Dr. Ildefonso Finn CO2 [Moles/Vol] 30.5 mmol/L Normal 21.0-32.0 [facility] Comment on above: Performed By: #### C BC #### [facility] [address] [place] [address] Dr. Ildefonso Finn Creatinine [Mass/Vol] 0.70 mg/dL Normal 0.55-1.02 [facility] Comment on above: Performed By: #### C BC #### [facility] [address] [place] [address] Dr. Ildefonso Finn EGFR-AF NAURUAN >60 Normal >=60 [facility] Comment on above: Performed By: #### C BC #### [facility] [address] [place] [address] Dr. Ildefonso Finn EGFR-NON AF NAURUAN >60 Normal >=60 [facility] Comment on above: Performed By: #### C BC #### [facility] [address] [place] [address] Dr. Ildefonso Finn Globulin (S) [Mass/Vol] 4.5 g/dL Normal [facility] Comment on above: Performed By: #### C BC #### [facility] [address] [place] [address] Dr. Ildefonso Finn Glucose [Mass/Vol] 106 mg/dL Normal 74-106 [facility] Comment on above: Performed By: #### C BC #### [facility] [address] [address] [address] Ildefonso Finn Potassium [Moles/Vol] 4.3 mmol/L Normal 3.5-5.1 [facility] Comment on above: Performed By: #### C BC #### [facility] [address] [address] [address] Ildefonso Fnin Protein [Mass/Vol] 8.1 g/dL Normal 6.4-8.2 [facility] Comment on above: Performed By: #### C BC #### [facility] [address] [place] [address] Dr. Ildefonso Finn Sodium [Moles/Vol] 137 mmol/L Normal 136-145 [facility] Comment on above: Performed By: #### C BC #### [facility] [address] [place] [address] Dr. Ildefonso Finn Urea nitrogen [Mass/Vol] 15.0 mg/dL Normal 7.0-18.0 [facility] Comment on above: Performed By: #### C BC #### [facility] [address] [place] [address] Dr. Ildefonso Finn Urea nitrogen/Creatinine [Mass ratio] 21.4 mg/mg Normal [facility] Comment on above: Performed By: #### C BC #### [facility] [address] [place] [address] Dr. Ildefonso Finn TSHon 07-02-2022 TSH 2.511 uIU/mL Normal 0.358-3.74 0 [facility] Comment on above: Performed By: #### C BC #### [facility] [address] [place] [address] Dr. Ildefonso Finn CULTURE SPUTUMon 04-16-2022 CULTURE SPUTUM Culture Observations : H. parainfluenzae; beta lactamase negative Isolate 1 Haemophilus parainfluenzae Normal [facility] Comment on above: Performed By: #### S PUTCX #### [facility] [address] [place] [address] Dr. Ildefonso Finn SPUTUM GRAM STAINon 04-16-20 COMMENTS Normal [facility] Comment on above: Performed By: #### S PUTGS #### [facility] [address] [address] [address] Ildefonso Finn DIPHTHEROIDS Normal [facility] Comment on above: Performed By: #### S PUTGS #### [facility] [address] [place] [address] Dr. Ildefonso Finn EPITHELIALS <25 Normal [facility] Comment on above: Performed By: #### S PUTGS #### [facility] [address] [place] [address] Dr. Ildefonso Finn FUNGAL ELEMENTS Normal [facility] Comment on above: Performed By: #### S PUTGS #### [facility] [address] [place] [address] Dr. Ildefonos Finn GRAM NEG BACILLI [facility] Comment on above: Performed By: #### S PUTGS #### [facility] [address] [place] [address] Dr. Ildefonso INGRAM NEG DIPPLOCOCCI MODERATE Normal [facility] Comment on above: Performed By: #### S PUTGS #### [facility] [address] [place] [address] Dr. Ildefonso Finn GRAM POS BACILLI [facility] Comment on above: Performed By: #### S PUTGS #### [facility] [address] [place] [address] Dr. Ildefonso Finn GRAM POSITIVE COCCI FEW Normal [facility] Comment on above: Performed By: #### S PUTGS #### [facility] [address] [place] [address] Dr. Ildefonso Finn WBC (Bld) [#/Vol] 10*3/uL Normal [facility] Comment on above: Performed By: #### S PUTGS #### [facility] [address] [place] [address] Dr. Ildefonso Finn Covid-19 PCR (CVDTB)on SARS-CoV-2 (COVID-19) RNA KARLA+probe Ql (Unsp spec) Detected Critically abnormal NOT DETECTED [facility] Comment on above: Result Comment: This test is not yet approved or cleared by the [place] FDA. When there are no FDA-approved or cleared tests available, and other criteria are met, FDA can make tests available under an emergency access mechanism called an Emergency Use Authorization (EUA). The EUA for this test is supported by the [place] of Health and Human Service's (HHS's) declaration [...] longer be used). Performed By: #### C [facility] #### [facility] [address] [place] [address] Dr. Ildefonso Finn Screening Mammogram, [facility] 12-29-2021 Screening Mammogram, Bilateral CLINICAL HISTORY: Screening [...] VERY IMPORTANT TO YOUR HEALTH. THE CURRENT [place] [employer] AND [employer] GUIDELINES RECOMMENDS ANNUAL MAMMOGRAPHY BEGINNING AT AGE 38 THIS FACILITY USES A REMINDER SYSTEM TO ENSURE ALL PATIENTS RECEIVE REMINDER NOTIFICATIONS AT THE APPROPRIATE TIME BASED ON THE RECOMMENDATIONS OF THIS EXAM. 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 Accredited by the ACR and FDA. Report reported and signed by ESTEFANIA RUBIN on 12/31/2021 1312 Normal [facility] Station Supervisor Vital Signs Date Time Vital Sign Value Performing Clinician Facility 09-24-2024 09:45-0400 Body height 165.1 cm Lillian Finch APRN.CNP Work Phone: [facility] 09-24-2024 09:45-0400 Body mass index (BMI) [Ratio] 22.47 kg/m2 Lillian Finch APRN.CNP Work Phone: [facility] 09-24-2024 09:45-0400 Body temperature 97.59 [degF] Andegoni Sandalakis SUPERVISOR [employer].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 Work Phone: [facility] 09-24-2024 09:45-0400 Body weight 61.24 kg Andegoni Sandalakis SUPERVISOR [employer].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 Work Phone: [facility] 09-24-2024 09:45-0400 Diastolic blood pressure 79 mm[Hg] Andegoni Sandalakis SUPERVISOR [employer].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 Work Phone: [facility] 09-24-2024 09:45-0400 Heart rate 83 /min Andegoni Sandalakis SUPERVISOR [employer].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 Work Phone: [facility] 09-24-2024 09:45-0400 SaO2% (BldA) [Mass fraction] 94 % Andegoni Sandalakis SUPERVISOR [employer].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 Work Phone: [facility] 09-24-2024 09:45-0400 Systolic blood pressure 127 mm[Hg] Andegoni Sandalakis SUPERVISOR [employer].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 Work Phone: [facility] 09-10-2024 15:19-0500 SaO2% (BldA) [Mass fraction] 98 % BRIANNA YANEZ [facility] Comment on above: Order Comment: Specimen Type: ARTERIAL B LOOD SPECIMENOrdering Facility: [facility] Address: [address] [place] [address] Performed By: #### A LLBG ####[facility] LABCLIA [id number] [address] [place] 09-10-2024 11:11-0500 SaO2% (BldA) [Mass fraction] 99 % BRIANNA YANEZ [facility] Comment on above: Order Comment: Specimen Type: ARTERIAL B LOOD SPECIMENOrdering Facility: [facility] Address: [address] [place] [address] Performed By: #### A LLBG ####[facility] LABCLIA [id number] [address] [place] [id number] [place] 09-10-2024 07:24-0500 SaO2% (BldA) [Mass fraction] 97 % BRIANNA HOY [facility] Comment on above: Order Comment: Specimen Type: ARTERIAL B LOOD SPECIMENOrdering Facility: [facility] Address: [address] [place] [address] Performed By: #### A LLBG ####[facility] LABCLIA [id number] [address] [place] 09-10-2024 03:20-0500 SaO2% (BldA) [Mass fraction] 97 % BRIANNA HOY [facility] Comment on above: Order Comment: Specimen Type: ARTERIAL B LOOD SPECIMENOrdering Facility: [facility] Address: [address] [place] [address] Performed By: #### A LLBG ####[facility] LABIA [id number] [address] [place] 09-09-2024 23:58-0500 SaO2% (BldA) [Mass fraction] 98 % BRIANNA HOY [facility] Comment on above: Order Comment: Specimen Type: ARTERIAL B LOOD SPECIMENOrdering Facility: [facility] Address: [address] [place] [address] Performed By: #### A LLBG ####[facility] [facility] LABCLIA [id number] [place] [id number] [place] 09-09-2024 19:30-0500 SaO2% (BldA) [Mass fraction] 99 % BRIANNA HOY [facility] Comment on above: Order Comment: Specimen Type: ARTERIAL B LOOD SPECIMENOrdering Facility: [facility] Address: [address] [place] [address] Performed By: #### A LLBG ####[facility] LABCLIA [id number] [place] [id number] [place] 09-09-2024 15:54-0500 SaO2% (BldA) [Mass fraction] 99 % BRIANNA HOY [facility] Comment on above: Order Comment: Specimen Type: ARTERIAL B LOOD SPECIMENOrdering Facility: [facility] Address: [address] [place], [place] [id number] Performed By: #### A LLBG ####[facility] LABCLIA [id number] [place] [id number] [place] [facility] 09-09-2024 14:04-0500 SaO2% (BldA) [Mass fraction] 98 % BRIANNA HOY [facility] Comment on above: Order Comment: Specimen Type: ARTERIAL B LOOD SPECIMENOrdering Facility: [facility] Address: [address] [place] [address] Performed By: #### A LLBG ####[facility] LABCLIA [id number] [address] OF [facility] 09-09-2024 12:58-0500 SaO2% (BldA) [Mass fraction] 98 % BRIANNA HOY [facility] Comment on above: Order Comment: Specimen Type: ARTERIAL B LOOD SPECIMENOrdering Facility: [facility] Address: [address] [place] [address] Performed By: #### A LLBG ####[facility] LABCLIA [id number] [place] [id number] [place] 09-09-2024 11:43-0500 SaO2% (BldA) [Mass fraction] 97 % BRIANNA HOY [facility] Comment on above: Order Comment: Specimen Type: ARTERIAL B LOOD SPECIMENOrdering Facility: [facility] Address: [address] [place] [address] Performed By: #### A LLBG ####[facility] LABCLIA [id number] [place] [id number] [place] 09-09-2024 10:26-0500 SaO2% (BldA) [Mass fraction] 100 % BRIANNA HOY [facility] Comment on above: Order Comment: Specimen Type: ARTERIAL B LOOD SPECIMENOrdering Facility: [facility] Address: [address] [place] [address] Performed By: #### A LLBG ####[facility] LABCLIA [id number] [place] [id number] [place] [facility] 09-09-2024 09:25-0500 SaO2% (BldA) [Mass fraction] 100 % BRIANNA HOY [facility] Comment on above: Order Comment: Specimen Type: ARTERIAL B LOOD SPECIMENOrdering Facility: [facility] Address: [address] [place] [address] Performed By: #### A LLBG ####[facility] LABIA [id number] [place] [id number] [place] 09-09-2024 08:49-0500 SaO2% (BldA) [Mass fraction] 100 % BRIANNA HOY [facility] Comment on above: Order Comment: Specimen Type: ARTERIAL B LOOD SPECIMENOrdering Facility: [facility] Address: [address] [place] [address] Performed By: #### A LLBG ####[facility] LABIA [id number] [place] [id number] [place] 09-09-2024 07:23-0500 SaO2% (BldA) [Mass fraction] 100 % BRIANNA HOY [facility] Comment on above: Order Comment: Specimen Type: ARTERIAL B LOOD SPECIMENOrdering Facility: [facility] Address: [address] [place] [address] Performed By: #### A LLBG ####[facility] LABIA [id number] [place] [id number] [place] 09-03-2024 13:08-0500 Body temperature 97.34 [degF] Mhd Rajeev-Yesenia [facility] 09-03-2024 13:08-0500 Diastolic blood pressure 85 mm[Hg] Mhd Al-Marrawi [facility] 09-03-2024 13:08-0500 Heart rate 80 /min Mhd Al-Marrawi [facility] 09-03-2024 13:08-0500 Mean blood pressure 109 mm[Hg] Mhd Al-Marrawi [facility] 09-03-2024 13:08-0500 Respiratory rate 16 /min Mhd Al-Marrawi [facility] 09-03-2024 13:08-0500 SaO2% (BldA) [Mass fraction] 97 % Mhd Al-Marrawi [facility] 09-03-2024 13:08-0500 Systolic blood pressure 157 mm[Hg] d Al-Marrawi [facility] 08-27-2024 10:56-0500 Body mass index (BMI) [Ratio] 22.63 kg/m2 Francisco Javier Calderón MD Work Phone: [facility] 08-27-2024 10:56-0500 Body temperature 98.8 [degF] Francisco Javier Calderón MD Work Phone: [facility] 08-27-2024 10:56-0500 Body weight 61.69 kg Francisco Javier Calderón MD Work Phone: [facility] 08-27-2024 10:56-0500 Diastolic blood pressure 80 mm[Hg] Francisco Javier Calderón MD Work Phone: [facility] 08-27-2024 10:56-0500 Heart rate 99 /min Francisco Javier Calderón MD Work Phone: [facility] 08-27-2024 10:56-0500 Respiratory rate 18 /min Francisco Javier Calderón MD Work Phone: [facility] 08-27-2024 10:56-0500 SaO2% (BldA) [Mass fraction] 95 % Francisco Javier Calderón MD Work Phone: [facility] 08-27-2024 10:56-0500 Systolic blood pressure 130 mm[Hg] Francisco Javier Paz Work Phone: [facility] 07-19-2024 13:27-0500 Body mass index (BMI) [Ratio] 21.13 kg/m2 Jung Quiroz MD Work Phone: [facility] 07-19-2024 13:27-0500 Body temperature 98.4 [degF] Jung Quiroz MD Work Phone: [facility] 07-19-2024 13:27-0500 Body weight 57.61 kg Jung Quiroz MD Work Phone: [facility] 07-19-2024 13:27-0500 Diastolic blood pressure 85 mm[Hg] Jung more MD Work Phone: [facility] 07-19-2024 13:27-0500 Heart rate 90 /min Jung Quiroz MD Work Phone: [facility] 07-19-2024 13:27-0500 Respiratory rate 16 /min Jung Quiroz MD Work Phone: [facility] 07-19-2024 13:27-0500 SaO2% (BldA) [Mass fraction] 95 % Jung Quiroz MD Work Phone: [facility] 07-19-2024 13:27-0500 Systolic blood pressure 146 mm[Hg] Jung Waldron i, MD Work Phone: [facility] 07-11-2024 08:59-0500 Diastolic blood pressure 86 mm[Hg] Deangelo Morales MD Work Phone: [facility] 07-11-2024 08:59-0500 Systolic blood pressure 138 mm[Hg] Deangelo Paz Work Phone: [facility] 07-11-2024 08:58-0500 Body height 165.1 cm Deangelo Morales MD Work Phone: [facility] 07-11-2024 08:58-0500 Body mass index (BMI) [Ratio] 21.13 kg/m2 Deangelo Morales MD Work Phone: [facility] 07-11-2024 08:58-0500 Body weight 57.61 kg Deangelo Morales MD Work Phone: [facility] 07-11-2024 08:58-0500 Heart rate 88 /min Deangelo Morales MD Work Phone: [facility] 07-11-2024 08:58-0500 Respiratory rate 12 /min Deangelo Morales MD Work Phone: [facility] 07-11-2024 08:58-0500 SaO2% (BldA) [Mass fraction] 97 % Deangelo Morales MD Work Phone: [facility] 05-27-2024 15:14-0500 Diastolic blood pressure 94 mm[Hg] Lauro Simon [facility] 05-27-2024 15:14-0500 Heart rate 91 /min Lauro Simon [facility] 05-27-2024 15:14-0500 Systolic blood pressure 159 mm[Hg] Lauro Simon [facility] 04-30-2024 15:41-0400 Body temperature 98.06 [degF] Mhd Al-Marrawi [facility] 04-30-2024 15:41-0400 Diastolic blood pressure 85 mm[Hg] Mhd Al-Marrawi [facility] 04-30-2024 15:41-0400 Heart rate 88 /min Mhd Al-Marrawi [facility] 04-30-2024 15:41-0400 Mean blood pressure 99 mm[Hg] Mhd Al-Marrawi [facility] 04-30-2024 15:41-0400 Respiratory rate 18 /min Mhd Al-Marrawi [facility] 04-30-2024 15:41-0400 SaO2% (BldA) [Mass fraction] 97 % Mhd Al-Marrawi [facility] 04-30-2024 15:41-0400 Systolic blood pressure 127 mm[Hg] Mhd Al-Marrawi [facility] 04-19-2024 09:56-0400 Heart rate 85 /min Mhd Al-Marrawi [facility] 04-19-2024 09:56-0400 SaO2% (BldA) [Mass fraction] 97 % Mhd Al-Marrawi [facility] 04-19-2024 09:56-0400 Respiratory rate 20 /min Mhd Al-Marrawi [facility] 04-19-2024 09:56-0400 Body temperature 97.7 [degF] Mhd Al-Marrawi [facility] 04-19-2024 09:55-0400 Blood Pressure Location Mhd Al-Marrawi [facility] 04-19-2024 09:55-0400 Diastolic blood pressure 75 mm[Hg] Mhd Al-Marrawi [facility] 04-19-2024 09:55-0400 Mean blood pressure 88 mm[Hg] Mhd Al-Marrawi [facility] 04-19-2024 09:55-0400 Systolic blood pressure 113 mm[Hg] Mhd Al-Marrawi [facility] 04-19-2024 08:29-0400 Blood Pressure Location Mhd Al-Marrawi [facility] 04-19-2024 08:29-0400 Diastolic blood pressure 73 mm[Hg] Mhd Al-Marrawi [facility] 04-19-2024 08:29-0400 Heart rate 76 /min Mhd Al-Marrawi [facility] 04-19-2024 08:29-0400 Mean blood pressure 87 mm[Hg] Mhd Al-Marrawi [facility] 04-19-2024 08:29-0400 Systolic blood pressure 116 mm[Hg] Mhd Al-Marrawi [facility] 04-19-2024 08:29-0400 Heart rate 78 /min Mhd Al-Marrawi [facility] 04-19-2024 08:29-0400 SaO2% (BldA) [Mass fraction] 99 % Mhd Al-Marrawi [facility] 04-19-2024 08:29-0400 Body temperature 97.7 [degF] Mhd Al-Marrawi [facility] 04-19-2024 08:28-0400 Respiratory rate 20 /min Mhd Al-Marrawi [facility] 04-19-2024 08:25-0400 Blood Pressure Location Mhd Al-Marrawi [facility] 04-19-2024 08:25-0400 Diastolic blood pressure 76 mm[Hg] Mhd Al-Marrawi [facility] 04-19-2024 08:25-0400 Mean blood pressure 95 mm[Hg] Mhd Al-Marrawi [facility] 04-19-2024 08:25-0400 Systolic blood pressure 131 mm[Hg] Mhd Al-Marrawi [facility] 04-18-2024 13:30-0400 Body height 165.1 cm Fernanda Rinkes DO Work Phone: [facility] 04-18-2024 13:30-0400 Body mass index (BMI) [Ratio] 19.47 kg/m2 Fernanda Rinkes DO Work Phone: [facility] 04-18-2024 13:30-0400 Body weight 53.07 kg Fernanda Rinkes DO Work Phone: [facility] 04-18-2024 13:30-0400 Diastolic blood pressure 70 mm[Hg] Fernanda Rinkes DO Work Phone: [facility] 04-18-2024 13:30-0400 Systolic blood pressure 120 mm[Hg] Fernanda Rinkes DO Work Phone: [facility] 04-09-2024 11:43-0400 Body temperature 97.52 [degF] Mhd Al-Marrawi [facility] 04-09-2024 11:43-0400 Diastolic blood pressure 77 mm[Hg] Mhd Al-Marrawi [facility] 04-09-2024 11:43-0400 Heart rate 93 /min Mhd Al-Marrawi [facility] 04-09-2024 11:43-0400 Mean blood pressure 94 mm[Hg] Mhd Al-Marrawi [facility] 04-09-2024 11:43-0400 Respiratory rate 16 /min Mhd Al-Marrawi [facility] 04-09-2024 11:43-0400 SaO2% (BldA) [Mass fraction] 97 % Mhd Al-Marrawi [facility] 04-09-2024 11:43-0400 Systolic blood pressure 127 mm[Hg] Mhd Al-Marrawi [facility] 03-11-2024 15:19-0400 Body temperature 99.14 [degF] Mhd Al-Marrawi [facility] 03-11-2024 15:19-0400 Diastolic blood pressure 83 mm[Hg] Mhd Al-Marrawi [facility] 03-11-2024 15:19-0400 Heart rate 96 /min Mhd Al-Marrawi [facility] 03-11-2024 15:19-0400 Mean blood pressure 97 mm[Hg] Mhd Al-Marrawi [facility] 03-11-2024 15:19-0400 Respiratory rate 20 /min Mhd Al-Marrawi [facility] 03-11-2024 15:19-0400 SaO2% (BldA) [Mass fraction] 94 % Mhd Al-Marrawi [facility] 03-11-2024 15:19-0400 Systolic blood pressure 124 mm[Hg] Mhd Al-Marrawi [facility] 02-26-2024 14:36-0400 Diastolic blood pressure 96 mm[Hg] Lauro Simon [facility] [place] 02-26-2024 14:36-0400 Heart rate 90 /min Lauro Simon [facility] [place] 02-26-2024 14:36-0400 Systolic blood pressure 145 mm[Hg] Lauro Simon [facility] [place] 02-20-2024 12:42-0400 Body height 165.1 cm Chris Baum MD Work Phone: [facility] 02-20-2024 12:42-0400 Body mass index (BMI) [Ratio] 21.63 kg/m2 Chris Baum MD Work Phone: [facility] 02-20-2024 12:42-0400 Body weight 58.97 kg Chris Baum MD Work Phone: [facility] 02-20-2024 12:42-0400 Diastolic blood pressure 81 mm[Hg] Chris Baum MD Work Phone: [facility] 02-20-2024 12:42-0400 Heart rate 83 /min Chris Baum MD Work Phone: [facility] 02-20-2024 12:42-0400 Systolic blood pressure 133 mm[Hg] Chris Baum MD Work Phone: [facility] 12-04-2023 14:31-0400 Body temperature 98.42 [degF] Khanh Amaro [facility] 12-04-2023 14:31-0400 Diastolic blood pressure 72 mm[Hg] Khanh Amaro [facility] 12-04-2023 14:31-0400 Heart rate 97 /min Khanh Amaro [facility] 12-04-2023 14:31-0400 Mean blood pressure 86 mm[Hg] Khanh Amaro [facility] 12-04-2023 14:31-0400 Respiratory rate 16 /min Khanh Amaro [facility] 12-04-2023 14:31-0400 SaO2% (BldA) [Mass fraction] 95 % Khanh Amaro [facility] 12-04-2023 14:31-0400 Systolic blood pressure 113 mm[Hg] Khanh Amaro [facility] 11-06-2023 15:13-0400 Blood Pressure Location Lauro Simon [facility] [place] 11-06-2023 15:13-0400 Diastolic blood pressure 90 mm[Hg] Lauro Simon [facility] [place] 11-06-2023 15:13-0400 Heart rate 85 /min Lauro Simon [facility] [place] 11-06-2023 15:13-0400 Systolic blood pressure 137 mm[Hg] Lauro Simon [facility] [place] 09-04-2023 14:44-0500 Body temperature 97.34 [degF] Mhd Al-Marrawi [facility] 09-04-2023 14:44-0500 Diastolic blood pressure 64 mm[Hg] Mhd Al-Marrawi [facility] 09-04-2023 14:44-0500 Heart rate 91 /min Mhd Al-Marrawi [facility] 09-04-2023 14:44-0500 Mean blood pressure 86 mm[Hg] Mhd Al-Marrawi [facility] 09-04-2023 14:44-0500 Respiratory rate 18 /min Mhd Al-Marrawi [facility] 09-04-2023 14:44-0500 SaO2% (BldA) [Mass fraction] 99 % Mhd Al-Marrawi [facility] 09-04-2023 14:44-0500 Systolic blood pressure 130 mm[Hg] Mhd Al-Marrawi [facility] 08-07-2023 15:51-0500 Diastolic blood pressure 78 mm[Hg] Lauro Simon [facility] [place] 08-07-2023 15:51-0500 Heart rate 80 /min Lauro Simon [facility] [place] 08-07-2023 15:51-0500 Systolic blood pressure 128 mm[Hg] Lauro Simon [facility] [place] 05-22-2023 14:00-0500 Blood Pressure Location Mhd Al-Marrawi [facility] 05-22-2023 14:00-0500 Body temperature 97.88 [degF] Mhd Al-Marrawi [facility] 05-22-2023 14:00-0500 Diastolic blood pressure 77 mm[Hg] Mhd Al-Marrawi [facility] 05-22-2023 14:00-0500 Heart rate 86 /min Mhd Al-Marrawi [facility] 05-22-2023 14:00-0500 Mean blood pressure 94 mm[Hg] Mhd Al-Marrawi [facility] 05-22-2023 14:00-0500 Respiratory rate 16 /min Mhd Al-Marrawi [facility] 05-22-2023 14:00-0500 SaO2% (BldA) [Mass fraction] 98 % Mhd Al-Marrawi [facility] 05-22-2023 14:00-0500 Systolic blood pressure 129 mm[Hg] Mhd Al-Marrawi [facility] 05-01-2023 09:00-0400 Blood Pressure Location Mhd Al-Marrawi [facility] 05-01-2023 09:00-0400 Body temperature 97.7 [degF] Mhd Al-Marrawi [facility] 05-01-2023 09:00-0400 Diastolic blood pressure 71 mm[Hg] Mhd Al-Marrawi [facility] 05-01-2023 09:00-0400 Heart rate 86 /min Mhd Al-Marrawi [facility] 05-01-2023 09:00-0400 Mean blood pressure 87 mm[Hg] Mhd Al-Marrawi [facility] 05-01-2023 09:00-0400 Respiratory rate 18 /min Mhd Al-Marrawi [facility] 05-01-2023 09:00-0400 SaO2% (BldA) [Mass fraction] 95 % d Al-Marrawi [facility] 05-01-2023 09:00-0400 Systolic blood pressure 120 mm[Hg] Mhd Al-Marrawi [facility] 03-01-2023 10:51-0400 Blood Pressure Location Bashar [place] [facility] 03-01-2023 10:51-0400 Diastolic blood pressure 78 mm[Hg] Bashar [place] [facility] 03-01-2023 10:51-0400 Heart rate 77 /min Bashar [place] [facility] 03-01-2023 10:51-0400 SaO2% (BldA) [Mass fraction] 97 % Bashar [place] [facility] 03-01-2023 10:51-0400 Systolic blood pressure 136 mm[Hg] Bashar [place] [facility] 02-22-2023 12:31-0400 Blood Pressure Location Lauro Toritourany [facility] 02-22-2023 12:31-0400 Diastolic blood pressure 84 mm[Hg] Lauro Ugarteurany [facility] 02-22-2023 12:31-0400 Systolic blood pressure 127 mm[Hg] Lauro Ugarteurany [facility] 02-22-2023 12:30-0400 Blood Pressure Location Lauro Hoody [facility] 02-22-2023 12:30-0400 Body temperature 98.06 [degF] Lauro Moratayay [facility] 02-22-2023 12:30-0400 Diastolic blood pressure 79 mm[Hg] Lauro Moratayay [facility] 02-22-2023 12:30-0400 Heart rate 87 /min Lauro Morat[facility]ay [facility] 02-22-2023 12:30-0400 Respiratory rate 16 /min Lauro Simon [facility] 02-22-2023 12:30-0400 SaO2% (BldA) [Mass fraction] 96 % Lauro Simon [facility] 02-22-2023 12:30-0400 Systolic blood pressure 136 mm[Hg] Lauro Morat[facility]ay [facility] Encounters Encounter Date Encounter Type Care Provider Facility Start: 02-04-2025 ambulatory NIYA robbins [facility] Start: 12-31-2024 End: 12-31-2024 ambulatory Mhd Sushil Narayan Facility:[facility] Start: 12-31-2024 End: 12-31-2024 Patient encounter procedure Mhd Sushil Narayan [facility] Start: 12-23-2024 End: 12-23-2024 ambulatory d Sushil Narayan Facility:[facility] Start: 12-23-2024 End: 12-23-2024 Patient encounter procedure Masoodd Sushil Narayan [facility] Start: 12-10-2024 End: 12-10-2024 ambulatory Lauro Simon Facility:[facility] Start: 12-10-2024 End: 12-10-2024 Patient encounter procedure Lauro Simon [facility] [place] Start: 11-15-2024 End: 11-15-2024 ambulatory JATIN VASQUEZ Facility:[facility] Start: 11-15-2024 End: 11-15-2024 ambulatory EMELI WATT Facility:[facility] Start: 11-06-2024 End: 11-06-2024 ambulatory AMRIKLandry KATHRYN [facility] Start: 10-25-2024 End: 10-25-2024 Telephone encounter Janell Gonzáles MD Work Phone: Admitting Comment on above: Post Dc Program Call - Fyi Start: 09-24-2024 End: 09-24-2024 Telephone encounter Janell Gonzáles MD Work Phone: Cardiology Comment on above: Patient Question; Ca re Coordinator - Other Start: 09-24-2024 End: 09-24-2024 Patient encounter procedure Lillian Finch [employer].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 Work Phone: Cardiothoracic Comment on above: Myxoma of heart (Hannah khanh Dx); Bronchiectasis without complication (HCC); ABLA (acute blood loss anemia) Start: 09-24-2024 End: 09-24-2024 ambulatory JANELL GONZÁLES Facility:[facility] Start: 09-24-2024 End: 09-24-2024 Subsequent hospital visit by physician Xr Chest Main J1 Work Phone: Radiology Comment on above: Surgery follow-up [Z 09] Start: 09-14-2024 End: 09-14-2024 Orders Only Deangelo Morales MD Work Phone: Cardiology Comment on above: 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); Hx of cardiac cath; Atelectasis; Chest pain, unspecified type Start: 09-11-2024 End: 09-17-2024 Telephone encounter Francisco Javier Calderón MD Work Phone: Infectious Disease Comment on above: Patient Update Start: 09-09-2024 End: 09-14-2024 Evaluation and management of inpatient JANELL GONZÁLES Facility:[facility] Start: 09-03-2024 End: 09-03-2024 ambulatory [facility] Start: 09-03-2024 End: 09-03-2024 Patient encounter procedure [facility] Start: 09-02-2024 End: 04-02-2024 Pre-admission assessment [facility] Start: 08-29-2024 End: 08-29-2024 ambulatory [facility] Start: 08-27-2024 End: 08-27-2024 Patient encounter procedure [facility] Work Phone: Cardiothoracic Comment on above: Pre-op exam (Primary Dx); Pre-op testing Start: 08-27-2024 End: 08-27-2024 Preprocedural examination done [facility] Work Phone: [facility] Start: 08-27-2024 End: 08-27-2024 Admission to same day surgery center Anesthesia Clearance Work Phone: [facility] Work Phone: Start: 08-27-2024 End: 08-27-2024 Patient encounter procedure Anesthesia Clearance Work Phone: Cardiothoracic Comment on above: Encounter for preope rative anesthesiology assessment for cardiac surgery (Primary Dx) Pre-operative cardio vascular examination; Benign neoplasm of heart Bronchiectasis witho ut complication (HCC) (Primary Dx); Pre-operative cardiovascular examination; Benign neoplasm of heart Start: 08-27-2024 End: 08-27-2024 Patient encounter status Janell Gonzáles MD Work Phone: [facility] Start: 08-27-2024 End: 08-27-2024 ambulatory Janell Gonzáles MD Work Phone: Cardiothoracic Comment on above: Patient Education Start: 08-27-2024 Encounter for preprocedural cardiovascular examination FRANCISCO JAVIER CALDERÓN [facility] Start: 08-26-2024 End: 08-26-2024 Patient encounter procedure Arielle Sharif MD Work Phone: Cardiology Start: 08-26-2024 End: 08-26-2024 ambulatory Arielle Sharif MD Work Phone: Cardiology Start: 08-26-2024 End: 08-26-2024 ambulatory JANELL GONZÁLES Facility:[facility] Start: 08-26-2024 End: 08-26-2024 ambulatory JANELL GONZÁLES Facility:[facility] Start: 08-26-2024 End: 08-26-2024 Patient encounter status Xr J1 Work Phone: [facility] Start: 08-26-2024 End: 08-26-2024 Subsequent hospital visit by physician Xr Chest Main J1 Work Phone: Radiology Comment on above: Pre-operative cardio vascular examination [Z01.810] Start: 08-25-2024 End: 08-25-2024 Telephone encounter Arielle Sharif MD Work Phone: Cardiology Comment on above: Patient Education Start: 08-22-2024 End: 09-13-2024 Patient encounter status Arielle Sharif MD Work Phone: [facility] Start: 08-15-2024 End: 08-15-2024 ambulatory jackson Narayan Facility:[facility] Start: 08-15-2024 End: 08-15-2024 Patient encounter procedure jackson Narayan [facility] Start: 08-15-2024 End: 08-15-2024 Patient encounter status Janell Gonzáles MD Work Phone: [facility] Start: 08-15-2024 End: 08-15-2024 Telephone encounter Janell Gonzáles MD Work Phone: Cardiothoracic Comment on above: Referral Information ; Cardiac Preop Checklist Start: 08-13-2024 End: 08-13-2024 ambulatory JANELL GONZÁLES Facility:[facility] Start: 08-13-2024 End: 08-13-2024 Patient encounter procedure Janell Gonzáles MD Work Phone: Cardiothoracic Comment on above: Bronchiectasis witho ut complication (HCC) (Primary Dx) Start: 08-06-2024 End: 08-06-2024 ambulatory [facility] Start: 08-01-2024 ambulatory [facility] Start: 07-19-2024 End: 07-19-2024 ambulatory JANELL GONZÁLES Facility:[facility] Start: 07-19-2024 End: 07-19-2024 Patient encounter procedure Jung Quiroz MD Work Phone: Pulmonary Medicine Comment on above: Preoperative respira tory examination (Primary Dx); Left atrial mass; Bronchiectasis without complication (HCC) Start: 07-19-2024 End: 07-19-2024 Patient encounter status Jung Quiroz MD Work Phone: [facility] Work Phone: Start: 07-12-2024 End: 07-23-2024 Telephone encounter Janell Gonzáles MD Work Phone: Cardiothoracic Comment on above: Referral Information ; Follow Up Start: 07-11-2024 End: 07-11-2024 Subsequent hospital visit by physician Emmie Guerra ([facility]) Work Phone: Radiology Comment on above: 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) [I77.9] Start: 07-11-2024 End: 07-11-2024 Patient encounter procedure Pulm Fct Lab J-1 Pulmonary Medicine Comment on above: 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); Benign neoplasm of heart Start: 07-11-2024 End: 07-11-2024 ambulatory BRIANNA YANEZ [facility] Comment on above: Spirometry Start: 06-04-2024 End: 06-10-2024 Telephone encounter No One (Historical) Referring Physician Comment on above: External Referrals/r esources Insurance Inquiry Referral Information ; Consult Start: 05-30-2024 End: 05-30-2024 ambulatory [facility] Start: 05-27-2024 End: 05-27-2024 ambulatory Lauro Simon Facility:[facility] Start: 05-27-2024 End: 05-27-2024 Patient encounter procedure Lauro Simon [facility] General Surgery [place] Start: 05-03-2024 End: 05-03-2024 ambulatory [facility] Start: 05-02-2024 End: 05-02-2024 ambulatory [facility] Start: 05-01-2024 End: 05-01-2024 ambulatory [facility] Start: 04-30-2024 End: 04-30-2024 ambulatory Neftali Narayan Facility:[facility] Start: 04-30-2024 End: 04-30-2024 Patient encounter procedure Neftali Narayan [facility] Start: 04-26-2024 End: 04-26-2024 ambulatory MOHAMAD [facility] Start: 04-19-2024 End: 04-19-2024 ambulatory Neftali Narayan Facility:[facility] Start: 04-19-2024 End: 04-19-2024 Patient encounter procedure Neftali Narayan [facility] Start: 04-18-2024 End: 04-18-2024 Bamboo flowsheet Fernanda Juliankes DO Work Phone: [facility] Start: 04-18-2024 End: 04-18-2024 Bamboo flowsheet Fernanda Juliankes DO Work Phone: [facility] Start: 04-18-2024 End: 04-18-2024 Patient encounter status Fernanda Juliankes DO Work Phone: [facility] Start: 04-18-2024 End: 04-18-2024 Periodic preventive med est patient 65yrs& older Fernanda Juliankes DO Work Phone: [facility] Comment on above: Encounter for gyneco logical examination without abnormal finding; Screening for malignant neoplasm of cervix; Encounter for screening mammogram for breast cancer Start: 04-18-2024 End: 04-18-2024 ambulatory FERNANDASEMAJ MCGOVERN Not Available Start: 04-17-2024 End: 07-16-2024 ambulatory MD Neftali Narayan Facility:[facility] Start: 04-17-2024 End: 07-16-2024 Recurring Neftali Narayan [facility] Start: 04-11-2024 End: 04-11-2024 ambulatory Neftali Narayan Facility:[facility] Start: 04-11-2024 End: 04-11-2024 Lab Drop off Neftali Boo-Yesenia [facility] Start: 04-09-2024 End: 04-09-2024 ambulatory Mhd Yaser Al-Marrawi Facility:[facility] Start: 04-09-2024 End: 04-09-2024 Patient encounter procedure Mhd Yaser Al-Marrawi [facility] Start: 04-09-2024 End: 04-09-2024 ambulatory Mhd Yaser Al-Marrawi Facility:[facility] Start: 04-09-2024 End: 04-09-2024 Patient encounter procedure Mhd Yaser Al-Marrawi [facility] Start: 03-28-2024 [facility] Start: 03-27-2024 Evaluation and management of inpatient KATIANAKEL [facility] Start: 03-27-2024 Evaluation and management of inpatient KATIANASOOK [facility] Start: 03-27-2024 End: 04-01-2024 Evaluation and management of inpatient GABY BAER [facility] Start: 03-27-2024 End: 03-27-2024 ambulatory UNKNOWN PROVIDER Facility:[facility] Start: 03-25-2024 Evaluation and management of inpatient [facility] Start: 03-25-2024 Evaluation and management of inpatient LAURA [facility] Start: 03-25-2024 Evaluation and management of inpatient JO ANN ANIBAL [facility] Start: 03-25-2024 Evaluation and management of inpatient LAURA [facility] Start: 03-24-2024 Evaluation and management of inpatient LAURA [facility] Start: 03-23-2024 [facility] Start: 03-22-[facility]24 Evaluation and management of inpatient [facility] Start: 03-22-2024 Evaluation and management of inpatient LAURA [facility] Start: 03-22-2024 Evaluation and management of inpatient RAGHEB [facility] Start: 03-21-2024 Evaluation and management of inpatient RAGHEB [facility] Start: 03-20-2024 Evaluation and management of inpatient RAGHEB [facility] Start: 03-18-2024 Evaluation and management of inpatient RAGHEB [facility] Start: 03-17-2024 Evaluation and management of inpatient RAGHEB [facility] Start: 03-16-2024 Evaluation and management of inpatient RAGHEB [facility] Start: 03-15-2024 Evaluation and management of inpatient RAGHEB [facility] Start: 03-15-2024 Evaluation and management of inpatient RAGB [facility] Start: 03-14-2024 End: 03-26-2024 Evaluation and management of inpatient OTIS MAGDI [facility] Start: 03-11-2024 End: 03-11-2024 ambulatory Mhd Yaadán AlMomo Facility:[facility] Start: 03-11-2024 End: 03-11-2024 [facility] Start: 03-01-2024 End: 03-01-2024 ambulatory FERNANDA Francheska ARELYVINCE Not Available Start: 02-26-2024 End: 02-26-2024 ambulatory Khanh Amaro Facility:[facility] Start: 02-26-2024 End: 02-26-2024 Patient encounter procedure Lauro Simon [facility] General Surgery [place] Start: 02-20-2024 End: 02-20-2024 ambulatory BRIANNA YANEZ Facility:[facility] Start: 02-20-2024 End: 02-20-2024 Patient encounter procedure Chris Baum MD Work Phone: [facility] Comment on above: Multiple sclerosis ( HCC) (Primary Dx) Start: 12-04-2023 End: 12-04-2023 ambulatory hKanh Amaro Facility:[facility] Start: 12-04-2023 End: 12-04-2023 Patient encounter procedure Khanh Amaro [facility] Start: 11-20-2023 End: 11-20-2023 ambulatory Mhd Yaser Al-Marrawi Facility:[facility] Start: 11-20-2023 End: 11-20-2023 Patient encounter procedure Mhd Yaser Al-Marrawi [facility] Start: 11-06-2023 End: 11-06-2023 ambulatory Lauro Simon Facility:[facility] Start: 11-06-2023 End: 11-06-2023 Patient encounter procedure Lauro Simon [facility] Start: 09-15-2023 ambulatory Khanh Amaro Facility: [facility] Start: 09-04-2023 End: 09-04-2023 ambulatory Mhd Yaser Al-Marrawi Facility:[facility] Start: 09-04-2023 End: 09-04-2023 Patient encounter procedure Mhd Yaser Al-Marrawi [facility] Start: 09-01-2023 End: 09-01-2023 ambulatory Mhd Yaser Al-Marrawi Facility:[facility] Start: 09-01-2023 End: 09-01-2023 Patient encounter procedure Mhd Yaser Al-Marrawi [facility] Start: 08-07-2023 End: 08-07-2023 ambulatory Lauro Simon Facility:[facility] Start: 08-07-2023 End: 08-07-2023 Patient encounter procedure Lauro Simon [facility] Surgery [place] Start: 05-30-2023 End: 05-30-2023 ambulatory Mhd Kristineser Rajeev-Yesenia Facility:[facility] Start: 05-30-2023 End: 05-30-2023 Patient encounter procedure Mhd Sushil Al-Sharirasendy [facility] Start: 05-22-2023 End: 05-22-2023 Patient encounter procedure Mhd Kristineser Al-Sharirasendy [facility] Start: 05-22-2023 End: 05-22-2023 Patient encounter procedure Mhd Sushil Al-Yesenia [facility] Start: 05-01-2023 End: 05-01-2023 Patient encounter procedure Lauro Simon [facility] Start: 05-01-2023 End: 05-01-2023 Patient encounter procedure Mhd Sushil Al-Yesenia [facility] Start: 03-01-2023 End: 03-01-2023 Patient encounter procedure Bashar X [place] [facility] Start: 03-01-2023 End: 03-01-2023 Preprocedural examination done Bashar X [place] [facility] Start: 02-22-2023 End: 02-22-2023 Patient encounter procedure Lauro Simon [facility] Start: 02-20-2023 End: 03-23-2023 Pre-admission assessment Lauro Simon [facility] Start: 12-10-2022 End: 12-11-[address] BRIANNA YANEZ . Facility:[facility] Start: 09-15-2022 End: 09-15-[address] BRIANNA YANEZ . Facility:[facility] Start: 07-12-2022 End: 07-12-[address] BRIANNA YANEZ . Facility:[facility] Start: 07-06-2022 Encounter for genera l adult medical examination without abnormal findings DR BRIANNA YANEZ . 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) Lauro Simon Start: 08-26-2024 Antibody screen BRIANNA YANEZ Comment on above: Order Comment: Speci men Type: BLOOD SPECIMENOrdering Facility: [facility] Address: [address] [place] [address] Performed By: #### T [id number] ####CC MAIN BLOOD BANKCLIA [id number] [address] [place] Start: 08-26-2024 Radiologic exam ches t 2 views Janell Gonzáles MD Work Phone: Start: 07-11-2024 Echocardiography GEOFFREY YANEZ Start: 07-11-2024 Co diffusing capacity Z Jazzy Gonzáles MD Work Phone: Start: 07-11-2024 Pulmonary ventilatio n & perfusion imaging Janell Gonzáles MD Work Phone: Start: 07-11-2024 Ct angiography chest w/contrast/noncontrast Janell Gonzáles MD Work Phone: Start: 07-11-2024 Creatinine [Mass/vol ume] in Serum or Plasma [facility] Provider Start: 04-26-2024 Follow-up visit OTIS HALE Start: 04-19-2024 Biopsy of bone Mhd Elsi arrque Start: 03-01-2024 Mammography Fernanda carlin DO Work Phone: Start: 04-11-2023 Biopsy of lymph node June fuentes Simon Start: 01-11-2023 Microscopic observat ion [Identifier] in Cervix by Cyto stain Fernanda Mcgovern DO Work Phone: Start: 06-16-2021 Bronchoscopy Lauro Ro ny Biopsy of breast Lauro stevenson section Lauro stevenson Open heart surgery Mhd Darion fishman Plan of Treatment Date Care Activity Detail Author Start: 01-12-2028 Screening for malignant neoplasm of cervix [facility] Start: 11-28-2027 Urine microalbumin profile DTaP,Tdap,Td Vaccine (2 - Td or Tdap) [facility] Start: 09-25-2027 Diabetes Screening Diabetes Screening [facility] Start: 09-15-2027 Diabetes Screening Diabetes Screening [facility] Start: 08-26-2027 Diabetes Screening Diabetes Screening [facility] Start: 04-01-2027 Diabetes Screening Diabetes Screening [facility] Start: 01-11-2026 Screening for malignant neoplasm of cervix Pap Smear [facility] Start: 06-02-2025 ambulatory Ambulatory Facility: [facility] Start: 04-30-2025 End: 04-30-2025 Patient encounter procedure 04/30/2025 3:00 PM EDT Office Visit [facility] [address] [place] [address] Fernanda Mcgovern DO [address] [place] [address] [facility] Start: 03-01-2025 Screening for malignant neoplasm of breast [facility] Start: 11-15-2024 End: 11-15-2024 Patient encounter procedure Vascular Medicine Comment on above: OPEN HEART Start: 11-15-2024 End: 11-15-2024 ambulatory 11/15/2024 8:30 AM EDT Results Only [place] [id number] [place] [address] LAB Main [address] Draw Station Comment on above: LAB Start: 09-24-2024 End: 09-24-2024 ambulatory 09/24/2024 9:30 AM EDT Results Only [place] [address] [place] [id number] CBC CMP Main [place] [address] Draw Station Comment on above: CBC CMP Start: 09-24-2024 End: 09-24-2024 Patient encounter procedure Radiology Comment on above: SURGERY FOLLOW UP HOSPITAL DISCHARGE J 5-3-23 Start: 09-14-2024 End: 12-14-2024 Basic metabolic 2000 panel - Serum or Plasma BASIC METABOLIC PANEL Lab Routine Disorder of artery or arteriole (HCC) Hx of cardiac cath Atelectasis Expected: 09/14/2024, Expires: 12/14/2024 [facility] Work Phone: Comment on above: Expected: 09/14/2024, Expires: Start: 09-14-2024 End: 12-14-2024 CBC panel - Blood by Automated count COMPLETE BLOOD COUNT Lab Routine Disorder of artery or arteriole (HCC) Hx of cardiac cath Atelectasis Expected: 09/14/2024, Expires: 12/14/2024 [facility] Comment on above: Expected: 09/14/2024, Expires: Start: 09-14-2024 End: 12-14-2024 Lipid 1996 panel - Serum or Plasma LIPID PANEL BASIC Lab Routine Disorder of artery or arteriole (HCC) Hx of cardiac cath Atelectasis Chest pain, unspecified type Expected: 09/14/2024, Expires: 12/14/2024 [facility] Comment on above: Expected: 09/14/2024, Expires: Start: 09-09-2024 End: 09-09-2024 Admission to same [facility] Admitting Comment on above: LA Mass Excision (1) Start: 09-09-2024 End: 09-09-2024 Exc intracardiac tumor rescj cardiopulmonary byp [facility] CT & VAS Start: 09-09-2024 Subsequent hospital visit by physician Admitting Comment on above: Pre-operative cardiovascular examination [Z01.810], 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] Start: 08-27-2024 End: 08-27-2024 Patient encounter procedure Cardiothoracic Comment on above: LA Mass Excision (1) Start: 08-27-2024 End: 11-26-2024 STAPHYLOCOCCUS AUREUS & MRSA SCREEN, PCR, NASAL [facility] Work Phone: Comment on above: Expected: 08/27/2024, Expires: Start: 08-27-2024 End: 08-27-2024 Patient encounter procedure Cardiothoracic Comment on above: LA Mass Excision (1) Z01.810 (ICD-10-CM) - Pre-operative cardiovascular examination consult to ID Start: 08-26-2024 End: 08-26-2024 Admission to same day surgery center 08/26/2024 6:15 PM EST - 08/26/2024 7:06 PM EST Surgery HOSP [employer] [address] [place] [address] Arielle Sharif MD [address] [place] [address]ON[address] C[address] W IMAGE INJECT & INTERP W LT HEART CATH W INJECT LT VENTRGRAPHY HOSP [employer] Comment on above: CORONARY ANGIO W CATH PLACE W IMAGE INJE CT & INTERP W LT HEART CATH W INJECT LT VENTRGRAPHY Start: 08-26-2024 End: 08-26-2024 Cath plmt l hrt & arts w/njx & angio img s&i CORONARY ANGIO W CATH PLACE W IMAGE INJECT & INTERP W LT HEART CATH W INJECT LT VENTRGRAPHY Pre-operative cardiovascular examination Other chest pain Benign neoplasm of heart 08/26/2024 6:15 PM EST FACULTY I ON CALL MEDICAL ASSISTANT Start: 08-26-2024 Subsequent hospital visit by physician 08/26/2024 6:15 PM EST Hospital Encounter HOSP [facility] [employer] [address] [place] [address] Arielle Sharif MD [address] [facility] [place] [address] [place] [address] Pre-operative cardiovascular examination [Z01.810], Other chest pain [R07.89], 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] HOSP [facility] [employer] Comment on above: Pre-operative cardiovascular examination [Z01.810], Other chest pain [R07.89], 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] Start: 08-26-2024 End: 08-26-2024 Admission to same day surgery center 08/26/2024 7:20 AM EST - 08/26/2024 8:11 AM EST Surgery HOSP [facility] [employer] [address] [place] [address] Arielle Sharif MD [address] [place] [address] W IMAGE INJECT & INTERP W LT HEART CATH W INJECT LT VENTRGRAPHY HOSP [employer] Comment on above: CORONARY ANGIO W CATH PLACE W IMAGE INJE CT & INTERP W LT HEART CATH W INJECT LT VENTRGRAPHY Start: 08-26-2024 End: 08-26-2024 Cath plmt l hrt & arts w/njx & angio img s&i CORONARY ANGIO W CATH PLACE W IMAGE INJECT & INTERP W LT HEART CATH W INJECT LT VENTRGRAPHY Pre-operative cardiovascular examination Other chest pain Benign neoplasm of heart 08/26/2024 7:20 AM EST FACULTY I ON CALL MEDICAL ASSISTANT Start: 08-26-2024 Subsequent hospital visit by physician 08/26/2024 7:20 AM EST Hospital Encounter HOSP [facility] [employer] [address] [place] [address] Arielle Sharif MD [address] [facility] [address] [place] [address] Pre-operative cardiovascular examination [Z01.810], Other chest pain [R07.89], 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] HOSP [employer] Comment on above: Pre-operative cardiovascular examination [Z01.810], Other chest pain [R07.89], 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] Start: 08-26-2024 End: 08-26-2024 Patient encounter procedure Radiology Comment on above: LA Mass Excision (1) ADMIT Start: 08-26-2024 End: 08-26-2024 [facility] [address] [facility] Comment on above: LA Mass Excision (1) Start: 08-15-2024 End: 11-14-2024 aPTT in Platelet poor plasma by Coagulation assay ACTIVATED PARTIAL THROMBOPLASTIN TIME Lab Routine Other chest pain Pre-operative cardiovascular examination Benign neoplasm of heart Expected: 08/15/2024 (Approximate), Expires: 11/14/2024 [facility] Comment on above: Expected: 08/15/2024 (Approximate), Expi res: 11/14/2024 Start: 08-15-2024 End: 11-14-2024 CBC W Auto Differential panel - Blood COMPLETE BLOOD COUNT AND DIFFERENTIAL Lab Routine Pre-operative cardiovascular examination Benign neoplasm of heart Expected: 08/15/2024, Expires: 11/14/2024 [facility] Comment on above: Expected: 08/15/2024, Expires: Start: 08-15-2024 End: 11-14-2024 Comprehensive metabolic 2000 panel - Serum or Plasma COMPREHENSIVE METABOLIC PANEL Lab Routine Pre-operative cardiovascular examination Benign neoplasm of heart Expected: 08/15/2024, Expires: 11/14/2024 [facility] Work Phone: Comment on above: Expected: 08/15/2024, Expires: Start: 08-15-2024 End: 11-14-2024 CONFIRM BLOOD TYPE CONFIRM BLOOD TYPE Blood Bank Routine Pre-operative cardiovascular examination Benign neoplasm of heart Expected: 08/15/2024, Expires: 11/14/2024 [facility] Comment on above: Expected: 08/15/2024, Expires: Start: 08-15-2024 End: 11-14-2024 Lactate dehydrogenase [Enzymatic activity/volume] in Serum or Plasma LACTATE DEHYDROGENASE Lab Routine Pre-operative cardiovascular examination Benign neoplasm of heart Expected: 08/15/2024, Expires: 11/14/2024 [facility] Comment on above: Expected: 08/15/2024, Expires: Start: 08-15-2024 End: 11-14-2024 PT panel - Platelet poor plasma by Coagulation assay PROTHROMBIN TIME Lab Routine Other chest pain Pre-operative cardiovascular examination Benign neoplasm of heart Expected: 08/15/2024 (Approximate), Expires: 11/14/2024 [facility] Comment on above: Expected: 08/15/2024 (Approximate), Expi res: 11/14/2024 Start: 08-15-2024 End: 11-14-2024 TYPE AND SCREEN,30 DAY TYPE AND SCREEN,30 DAY Blood Bank Routine Pre-operative cardiovascular examination Benign neoplasm of heart Expected: 08/15/2024, Expires: 11/14/2024 [facility] Comment on above: Expected: 08/15/2024, Expires: Start: 08-15-2024 End: 11-14-2024 URINALYSIS, DIPSTICK ONLY URINALYSIS, DIPSTICK ONLY Lab Routine Pre-operative cardiovascular examination Benign neoplasm of heart Expected: 08/15/2024, Expires: 11/14/2024 [facility] Comment on above: Expected: 08/15/2024, Expires: Start: 08-13-2024 End: 08-13-2024 Patient encounter procedure 08/13/2024 1:00 PM EST Office Visit Cardiothoracic [address] [place] [address] Janell Gonzáles MD [address] [place] [address] [I77.9][D15.1] Cardiothoracic Comment on above: [I77.9][D15.1] Start: 08-01-2024 Shingrix Vaccine (2 of 2) Shingrix Vaccine (2 of 2) [facility] Start: 07-19-2024 End: 07-19-2024 Patient encounter procedure 07/19/2024 2:00 PM EST Office Visit Pulmonary Medicine [address] [place] [id number] Jung Quiroz MD [address] [place] [address] Pre Op / Consult Per Romi Guerra4-1 07-13 Pulmonary Medicine Comment on above: Pre Op / Consult Per Romi J4-1 07-13 Start: 07-17-2024 Advance Directive Discussion Advance Directive Discussion [facility] Start: 06-10-2024 End: 09-09-2024 CREATININE BLD CREATININE BLD Lab Routine 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 Expected: 06/10/2024, Expires: 09/09/2024 [facility] Comment on above: Expected: 06/10/2024, Expires: Start: 04-18-2024 End: 04-18-2024 Patient encounter procedure 04/18/2024 1:15 PM EDT Office Visit [facility] [address] [place] [id number] Fernanda Mcgovern DO [address] [place] [address] Encounter for gynecological examination without abnormal finding; Screening for malignant neoplasm of cervix; Encounter for screening mammogram for breast cancer [facility] Comment on above: Encounter for gynecological examination without abnormal finding; Screening for malignant neoplasm of cervix; Encounter for screening mammogram for breast cancer Start: 03-17-2024 Covid-19 Vaccine () Covid-19 Vaccine () [facility] Start: 03-17-2024 Influenza vaccination [facility] Start: 01-06-2024 Screening for malignant neoplasm of breast Mammogram Screening [facility] Start: 11-11-2023 Advance Directive Discussion Advance Directive Discussion [facility] Start: 11-11-2023 Screening for osteoporosis Bone Density Screening [facility] Start: 03-17-2023 Covid-19 Vaccine () Covid-19 Vaccine () [facility] Start: 07-05-2022 Diabetes Screening Diabetes Screening [facility] Start: 2008 Shingrix Vaccine (1 of 2) Shingrix Vaccine (1 of 2) [facility] Start: 11-11-2003 Lipid panel Lipid Screening [facility] Start: 11-11-2003 Screening for malignant neoplasm of colon [facility] Start: 1976 Anxiety Screening Anxiety Screening [facility] Start: 1976 Depression Screening Depression Screening [facility] Start: 1976 Hepatitis C screening Hepatitis C Screening [facility] Start: 1976 HIV screening HIV Screening [facility] Start: 1958 Screening for malignant neoplasm of colon [facility] End: 07-10-2025 CTA Chest vessels W contrast IV CTA CHEST (GATED) W IVCON Radiology Routine 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 1 Occurrences starting 06/10/2024 until 07/10/2025 [facility] Comment on above: 1 Occurrences starting 06/10/2024 until 07/10/2025 End: 06-10-2025 ECG COMPLETE ECG COMPLETE ECG Routine 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 1 Occurrences starting 06/10/2024 until 06/10/2025 [facility] Work Phone: Comment on above: 1 Occurrences starting 06/10/2024 until 06/10/2025 End: 08-15-2025 ECG COMPLETE ECG COMPLETE ECG Routine Pre-operative cardiovascular examination Benign neoplasm of heart 1 Occurrences starting 08/15/2024 until 08/15/2025 [facility] Comment on above: 1 Occurrences starting 08/15/2024 until 08/15/2025 End: 09-14-2025 ECG COMPLETE ECG COMPLETE ECG Routine Disorder of artery or arteriole (HCC) Hx of cardiac cath Atelectasis 1 Occurrences starting 09/14/2024 until 09/14/2025 [facility] Comment on above: 1 Occurrences starting 09/14/2024 until 09/14/2025 End: 06-10-2025 Echocardiography ECHO Cardiology Routine 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 1 Occurrences starting 06/10/2024 until 06/10/2025 [facility] Comment on above: 1 Occurrences starting 06/10/2024 until 06/10/2025 End: 09-14-2025 Echocardiography ECHO Cardiology Routine Disorder of artery or arteriole (HCC) Hx of cardiac cath Atelectasis 1 Occurrences starting 09/14/2024 until 09/14/2025 [facility] Comment on above: 1 Occurrences starting 09/14/2024 until 09/14/2025 INTERACTIVE HEART BATISTA RGERY PROGRAM INTERACTIVE HEART SURGERY PROGRAM Procedures Routine Pre-operative cardiovascular examination Benign neoplasm of heart Ordered: 08/15/2024 [facility] Comment on above: Ordered: 08/15/2024 End: 07-10-2025 LUNG DIFFUSION CAPACITY (DLCO) LUNG DIFFUSION CAPACITY (DLCO) PFT Routine 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 1 Occurrences starting 06/10/2024 until 07/10/2025 [facility] Comment on above: 1 Occurrences starting 06/10/2024 until 07/10/2025 End: 07-10-2025 NM Lung Ventilation and Perfusion NM LUNG VENT / PERF VQ Radiology Routine Disorder of artery or arteriole (HCC) Other specified symptoms and signs involving the circulatory and respiratory systems Benign neoplasm of heart 1 Occurrences starting 06/10/2024 until 07/10/2025 [facility] Comment on above: 1 Occurrences starting 06/10/2024 until 07/10/2025 SENDOUT TEST MISCELLANEOUS [facility] SENDOUT TEST MISCELLANEOUS [facility] Lab Routine Screening for malignant neoplasm of cervix Ordered: 04/18/2024 [facility] [employer] Work Phone: Comment on above: Ordered: 04/18/2024 End: 07-10-2025 SPIROMETRY BASELINE ONLY SPIROMETRY BASELINE ONLY PFT Routine 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 1 Occurrences starting 06/10/2024 until 07/10/2025 [facility] Comment on above: 1 Occurrences starting 06/10/2024 until 07/10/2025 End: 06-10-2025 US Carotid arteries - bilateral US CAROTID ARTERIES [facility] Vascular Lab Routine Disorder of artery or arteriole (HCC) Other specified symptoms and signs involving the circulatory and respiratory systems Benign neoplasm of heart 1 Occurrences starting 06/10/2024 until 06/10/2025 [facility] Comment on above: 1 Occurrences starting 06/10/2024 until 06/10/2025 End: 09-14-2025 XR Chest PA and Lateral XR CHEST 2V FRONTAL/LAT Radiology Routine Pre-operative cardiovascular examination Benign neoplasm of heart 1 Occurrences starting 08/15/2024 until 09/14/2025 [facility] Comment on above: 1 Occurrences starting 08/15/2024 until 09/14/2025 Immunizations Immunization Date Immunization Notes Care Provider Vianca [facility] 06-27-2023 influenza virus vaccine, unspecified formulation Chris Baum MD Work Phone: [facility] 04-15-2022 influenza virus vaccine, unspecified formulation Lauro Simon [facility] 05-02-2021 influenza virus vaccine, unspecified formulation Lauro Simon [facility] 10-31-2020 SARS-CoV-2 (COVID-19 ) mRNA BNT-162b2 vax Lauro Mourany [facility] Comment on above: Result Comment: 2022: [id number] 10-10-2020 SARS-CoV-2 (COVID-19 ) mRNA BNT-162b2 vax Lauro Mourany [facility] Comment on above: Result Comment: 2022: [id number] 05-02-2019 influenza virus vaccine, unspecified formulation Lauro Simon [facility] 05-02-2019 influenza, injectabl e, quadrivalent, preservative free Chris Baum MD Work Phone: [facility] 05-04-2018 influenza virus vaccine, unspecified formulation Lauro Simon [facility] 05-04-2018 influenza, injectabl e, quadrivalent, preservative free Chris Baum MD Work Phone: [facility] 11-27-2017 tetanus toxoid, redu alona diphtheria toxoid, and acellular pertussis vaccine, adsorbed Lauro Simon [facility] 05-02-2017 influenza virus vaccine, unspecified formulation Lauro Smion [facility] 05-09-2016 influenza, unspecifi ed formulation Lauro Simon [facility] 05-07-2015 influenza virus vaccine, unspecified formulation Lauro Simon [facility] 05-07-2015 influenza, high dose seasonal, preservative-free Chris Baum MD Work Phone: [facility] 07-14-2014 influenza virus vaccine, unspecified formulation Lauro Simon [facility] 07-14-2014 influenza, injectable,quadrivalent , preservative free, pediatric Chris Baum MD Work Phone: [facility] 07-14-2014 pneumococcal conjuga te vaccine, 13 valent Lauro Simon [facility] 04-12-2013 influenza virus vaccine, unspecified formulation Chris Baum MD Work Phone: [facility] Work Phone: 06-15-2012 influenza virus vaccine, unspecified formulation Chris Baum MD Work Phone: [facility] 12-01-2011 pneumococcal polysaccharide vaccine, 23 valent Chris Baum MD Work Phone: [facility] 10-12-2010 influenza virus vaccine, unspecified formulation Chris Baum MD Work Phone: [facility] NEGATED: Highlighted row has not occurred!04-21-2023 influenza virus vaccine, unspecified formulation Lauro Simon [facility] [place] Payers Date Payer Category Payer Medicare [id number] 2023 Private Health Insurance [id number] 2023 Medicare [id number] 2023 Unknown [id number] 2023 Unknown [id number] 1960 Unknown [id number] 2.16.84 0.1.670305.3.579.2.593 1958 Unknown [id number] 2.16.84 0.1.234791.3.579.2.593 1958 Unknown [id number] 2.16.84 0.1.358375.3.579.2.593 1958 Unknown [id number] 2.16.84 0.1.970614.3.579.2.593 1958 Unknown [id number] 2.16.84 0.1.354914.3.579.2.593 1958 Unknown [id number] 2.16.84 0.1.574674.3.579.2.593 1958 Unknown [id number] 2.16.84 0.1.588492.3.579.2.593 1958 Unknown [id number] 2.16.84 0.1.325612.3.579.2.593 1958 Unknown [id number] 2.16. 840.1.130963.3.579.2.732 1958 Unknown [id number] 2.16.8 40.1.688134.3.579.2. 1958 Unknown [id number] 2.16.8 40.1.317810.3.579.2.72 1958 Unknown [id number] 2.16.84 0.1.332853.3.579.2.125 1958 Unknown [id number] 2.16.84 0.1.715176.3.579.2.1259 1958 Unknown [id number] 2.16.8 40.1.669553.3.579.2. 1958 Unknown [id number] 2.16.8 40.1.128391.3.579.2. 1958 Unknown [id number] 2.16.8 40.1.448509.3.579.2. 1958 Unknown [id number] 2.16.8 40.1.515864.3.579.2 1958 Unknown [id number] 2.16.8 40.1.823289.3.579.2. 1958 Unknown [id number] 2.16.8 40.1.741035.3.579.2. 1958 Unknown [id number] 2.16.8 40.1.821851.3.579.2. 1958 Unknown [id number] 2.16.8 40.1.227154.3.579.2. 1958 Unknown [id number] 2.16.8 40.1.927663.3.579.2 1958 Unknown [id number] 2.16.8 40.1.011382.3.579.2. 1958 Unknown [id number] 2.16.8 40.1.520538.3.579.2.727 1958 Unknown [id number] 2.16.8 40.1.710503.3.579.2.72 1958 Unknown [id number] 2.16.8 40.1.857512.3.579.2.72 1958 Unknown [id number] 2.16.8 40.1.953197.3.579.2. 1958 Unknown [id number] 2.16.8 40.1.372975.3.579.2.72 1958 Unknown [id number] 2.16.8 40.1.226460.3.579.2. 1958 Unknown [id number] 2.16.8 40.1.274571.3.579.2. 1958 Unknown [id number] 2.16.8 40.1.809290.3.579.2. 1958 Unknown [id number] 2.16.8 40.1.634591.3.579.2. 1958 Unknown [id number] 2.16.8 40.1.130695.3.579.2 1958 Unknown [id number] 2.16.8 40.1.406245.3.579.2.72 1958 Unknown [id number] 2.16.8 40.1.426772.3.579.2.72 1958 Unknown [id number] 2.16.8 40.1.204257.3.579.2.72 1958 Unknown [id number] 2.16.8 40.1.485721.3.579.2. 1958 Unknown [id number] 2.16.8 40.1.719493.3.579.2.72 1958 Unknown [id number] 2.16.8 40.1.360834.3.579.272 Unknown [id number] Social History Date Type Detail Facility Start: 01-30-2023 End: 12-31-2024 Tobacco smoking status Never smoked tobacco (finding) [facility] Tobacco smoking status Never [facility] Start: 02-19-2024 End: 02-20-2024 Sex Assigned At Female [facility] Start: 10-22-2014 End: 01-11-2023 Tobacco use and exposure Smokeless tobacco non-user [facility] Start: 02-20-2024 End: 09-24-2024 Alcohol intake Current non-drinker of alcohol (finding) [facility] Start: 02-19-2024 End: 02-20-2024 History of Social function [facility] Start: 1960 Sex Assigned At Not on file C [facility] Start: 04-17-2024 End: 04-18-2024 Alcoholic beverage intake Lifetime non-drinker (finding) [facility] Start: 12-29-2022 Alcohol Comment Caffeine intake: non e [facility] Start: 1960 Sex assigned at Female N [facility] Start: 12-27-2022 Gender identity Identifies as female gender (finding) [facility] Sexual Orientation [facility] Start: 10-28-2009 Sex Female (finding) [facility] Procedure Code Equipment Code Equipment Original Text Equipment Identifier Dates Rosine Thk1.65mm P tfe 4x.5in Cardiovascular Sterile - [id number] Start: 09-09-2024 Goals Date Patient Goal Desired Activity /State Personal health goal Personal health goal Functional Status Date Assessment Result Facility 09-14-2024 Are you deaf, or do you have serious difficulty hearing No 09/14/2024 1:11 PM Katelynn Coy RN No [facility] 09-14-2024 Are you blind, or do you have serious difficulty seeing, even when wearing glasses No 09/14/2024 1:11 PM Katelynn Coy RN No [facility] 09-14-2024 Do you have serious difficulty walking or climbing stairs No 09/14/2024 1:11 PM Katelynn Coy RN No [facility] 09-14-2024 Do you have difficul ty dressing or bathing No 09/14/2024 1:11 PM Katelynn Coy RN No [facility] 09-14-2024 Because of a physica l, mental, or emotional condition, do you have difficulty doing errands alone such as visiting a physician's office or shopping No 09/14/2024 1:11 PM Katelynn Coy, SHOAIB No [facility] 08-26-2024 Are you deaf, or do you have serious difficulty hearing No 08/26/2024 7:00 PM Tim Torres RN No [facility] 08-26-2024 Are you blind, or do you have serious difficulty seeing, even when wearing glasses No 08/26/2024 7:00 PM Tim Torres RN No [facility] 08-26-2024 Do you have serious difficulty walking or climbing stairs No 08/26/2024 7:00 PM Tim Torres RN No [facility] 08-26-2024 Do you have difficul ty dressing or bathing No 08/26/2024 7:00 PM Tim Torres RN No [facility] 08-26-2024 Because of a physica l, mental, or emotional condition, do you have difficulty doing errands alone such as visiting a physician's office or shopping No 08/26/2024 7:00 PM Tim Torres RN No [facility] 04-10-2024 Functional Status N/A [facility] 08-07-2023 Functional Status N/A [facility] [place] 03-01-2023 Functional Status No [facility] 02-22-2023 Functional Status No [facility] 10-13-2014 Are you deaf, or do you have serious difficulty hearing No 10/13/2014 8:26 AM Teri Crawford Ma No [facility] 10-13-2014 Are you blind, or do you have serious difficulty seeing, even when wearing glasses No 10/13/2014 8:26 AM Teri Crawford Ma No [facility] 10-13-2014 Do you have serious difficulty walking or climbing stairs No 10/13/2014 8:26 AM EDT Guido PeñalozaTeri No [facility] 10-13-2014 Do you have difficul ty dressing or bathing No 10/13/2014 8:26 AM EDT Guido PeñalozaTeri No [facility] 10-13-2014 Because of a physica l, mental, or emotional condition, do you have difficulty doing errands alone such as visiting a physician's office or shopping No 10/13/2014 8:26 AM EDT Guido AnabelaTeri [facility] Mental Status Date Assessment Result Facility 09-14-2024 Because of a physica l, mental, or emotional condition, do you have serious difficulty concentrating, remembering, or making decisions No 09/14/2024 1:11 PM Katelynn Coy, SHOAIB No [facility] 08-26-2024 Because of a physica l, mental, or emotional condition, do you have serious difficulty concentrating, remembering, or making decisions No 08/26/2024 7:00 PM Tim Torres, SHOAIB No [facility] 10-13-2014 Because of a physica l, mental, or emotional condition, do you have serious difficulty concentrating, remembering, or making decisions No 10/13/2014 8:26 AM EDT Guido PeñalozaTeri No [facility] Clinical Notes 01-03-2022 to 02-04-2025 Telephone Encounter - Selina Hurd RN - 10/25/2024 1:05 PM EDTTelephone Encounter - Selina Hurd RN - 10/25/2024 1:05 PM EDTTelephone Encounter - Pam Onofre RN - 09/24/2024 1:42 PM EDTRadiology Note Date & Type Note Facility 02-04-2025 Note [facility] 12-31-2024 Note Oncology Progress No te Chief Complaint Breast Ca; No questions or concerns. Oncological History/ROS/PE/Assessment and Plan Diagnoses 1. Breast cancer, left (C50.912: Malignant neoplasm of unspecified site of left female breast) 2. Lytic bone lesions on xray (M89.9: Disorder of bone, unspecified) HPI: Chief Complaint breast Ca; has a mole that would like to discuss today. Lytic bone lesion found on calvarium and iliac bones while she was admitted that [facility] with bronchiectasis related hemoptysis. HPI: Emeli is a 62-year-old lady with history of multiple sclerosis and bronchiectasis who was referred by Dr. Simon to our oncology clinic to be evaluated and managed for her new left breast invasive lobular carcinoma, ER +90%, [place] +20 to 30%, HER2/elif 1+, and Ki67 was positive 1%. 2 out of 2 sentinel lymph node with positive for macro metastatic disease. Her tumor was discussed at the [facility] tumor board patient is to obtain [...] Lumpectomy with wire-guided localization LYMPH NODE SAMPLING: [place] lymph node(s) SPECIMEN INTEGRITY: multiple specimens (A [...] invasive tumor cells, performed on previous biopsy (-[id number]), please refer to previous report for details PROGESTERONE RECEPTOR: 20-30% of invasive tumor cells, performed on previous biopsy ([id number]), please refer to previous report for details Ki-67 INDEX OF INVASIVE TUMOR CELLS: Approximately 1% of invasive tumor cells, performed on previous biopsy ([id number]), please refer to previous report for details HER2/ELIF STUDIES: 1+ ([facility]), performed on previous biopsy ([id number]), please refer to previous report for details MICROCALCIFICATIONS: Not identified on submitted sections CLINICAL HISTORY: Radiologic finding Final Diagnosis (Verified) A: LEFT BREAST, LUMPECTOMY WITH NEEDLE LOCALIZATION: ??? INVASIVE LOBULAR CARCINOMA, GRADE 1 (1.1 CM). ??? LOBULAR CARCINOMA IN SITU. ??? MEDIAL AND ANTERIOR/POSTERIOR MARGIN < 1 MM FROM INVASIVE CARCINOMA. ??? PREVIOUS BIOPSY SITE IDENTIFIED. B: TRUE MARGINS, LEFT BREAST, EXCISION: ??? BENIGN FATTY BREAST TISSUE WITH NO EVIDENCE OF MALIGNANCY. ??? MARGINS NEGATIVE FOR MALIGNANCY. C: SENTINEL LYMPH NODES, LEFT BREAST, EXCISION: ??? METASTATIC LYMPH NODES IDENTIFIED (2/). Recovering from [...] see Rad onc on 05/25/23 for adjuvant (more content not included)... [facility] 11-15-2024 Note [facility] 11-06-2024 Note [facility] 11-06-2024 Note Follow up treated le ft breast and LN 25/ + 5 finished 2023 Pt had surgery at for myxoma. She has recovered well. Her last mammogram was February 2024. ken Mahmood [facility] 10-25-2024 Telephone encounter Note Images from the original note were not included. [facility] [place] Phone Encounter DATE of SERVICE: 10/25/2024 TIME of SERVICE: 1:07 PM Status: FYI Service/Provider: Cardiac Surgery Yeyo Gonzáles M.D. Reason for call: Education Reinforcement Contact information: [phone] Resolution: Reinforced education Comments: Pt was asking when she was able to drive and when her sternal precautions were lifted. Pt had surgery on 09/09. Informed pt that her sternal precautions were up this past Monday (10/21). Pt asked for email of AVS. Emailed to [email or web address]. Selina Hurd RN Date of Resolution: 10/25/2024 Time of Resolution 1:07 PM [facility] 10-25-2024 Miscellaneous Notes Images from the original note were not included. [facility] Phone Encounter DATE of SERVICE: 10/25/2024 TIME of SERVICE: 1:07 PM Status: FYI Service/Provider: Cardiac Surgery Yeyo Gonzáles M.D. Reason for call: Education Reinforcement Contact information: [phone] Resolution: Reinforced education Comments: Pt was asking when she was able to drive and when her sternal precautions were lifted. Pt had surgery on 09/09. Informed pt that her sternal precautions were up this past Monday (10/21). Pt asked for email of AVS. Emailed to [email or web address]. Selina Hurd RN Date of Resolution: 10/25/2024 Time of Resolution 1:07 PM documented in this encounter [facility] 09-24-2024 Telephone encounter Note Images from the original note were not included. [facility] Phone Encounter DATE of SERVICE: 09/24/2024 TIME of SERVICE: 1:44 PM Status: FYI Service/Provider: Cardiac Surgery Yeyo Gonzáles M.D. Reason for call: Care Coordination Contact information: [phone] Resolution: Other Dr Yanez FAX # [phone] Comments: Pt calling [facility] line. Seen today in [facility]. Asking for us to send copies of appt/lab/discharge summary/Operative Report to PCP Dr Yanez at Fax# [phone] and completed request. Encouraged to call with any further questions. Pam Onofre RN Date of Resolution: 09/24/2024 Time of Resolution 1:44 PM [facility] 09-24-2024 Miscellaneous Notes Images from the original note were not included. [facility] Phone Encounter DATE of SERVICE: 09/24/2024 TIME of SERVICE: 1:44 PM Status: FYI Service/Provider: Cardiac Surgery Yeyo Gonzáles M.D. Reason for call: Care Coordination Contact information: [phone] Resolution: Other Dr Yanez FAX # [phone] Comments: Pt calling [facility] line. Seen today in [facility]. Asking for us to send copies of appt/lab/discharge summary/Operative Report to PCP Dr Yanez at Fax# [phone] and completed request. Encouraged to call with any further questions. Pam Onofre RN Date of Resolution: 09/24/2024 Time of Resolution 1:44 PM documented in this encounter [facility] 09-24-2024 Instructions Lillian Finch APRN.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 - 09/24/2024 10:13 AM EDT Follow up with PCP next week with repeat cbc and cmp to monitor trends. Follow up with hand winder in 4-6 weeks with consideration of repeat echo. Cardiology to determine clearance for return to work and order Cardiac Rehab Phase II if not already given at the time of discharge. No further refills unless specified by local providers. documented in this encounter [facility] 09-24-2024 History of Present illness Narrative Images from the original note were not included. [facility] Rajesh Larry Department of Cardiovascular Medicine DEPARTMENT OF CARDIAC SURGERY OUTPATIENT VISIT DATE September 24, 2024 OUTPATIENT VISIT TYPE POSTOPERATIVE Emeli Kaufman is a 63 year old female who presents who is here for post operative follow up HPI: S/P on 09/09/2024 [facility] Surgeon: Janell Gonzáles MD Operations: LA Mass Excision and Reconstruction of the Interatrial Septum with Autologous Pericardial Patch/Moderate-severe MR with anterior-directed jet after weaning from CPB/Second cross-clamp - Atrial septum reconstructed with a patch of autologous pericardium Surgical Pathology/Microbiology: Final Diagnosis: A. Left atrial mass, excision: - Myxoma. 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 ALLERGIES Allergen Reactions Warfarin Other: See Comments Due to hemorrhaging ALL BLOOD THINNERS Current Outpatient Medications Medication Sig acetaminophen (TYLENOL) 325 mg tablet Take 2 tablets by mouth every 4 hours as needed for pain. metoprolol tartrate, short acting, (LOPRESSOR) 25 mg tablet Take 1/2 tablet by mouth every 12 hours. MULTIVITAMIN-FERROUS FUMARATE-FOLIC ACID 18 MG-400 MCG TABLET Take 1 tablet by mouth daily with breakfast. pantoprazole DR (PROTONIX) 20 mg tablet Take 1 tablet by mouth daily at 6 am for 15 days. furosemide (LASIX) 20 mg tablet Take 1 tablet by mouth once daily for 7 days. potassium chloride ER (KLOR-CON M10) 10 mEq tablet Take 1 tablet by mouth once daily for 7 days. albuterol (PROVENTIL) 2.5 mg /3 mL (0.083 %) nebulizer solution Use 3 mL via nebulizer every 12 hours. Inhale over 5-15 minutes alendronate (FOSAMAX) 70 mg tablet Take 70 mg by mouth one time a week. calcium carbonate (OS-TONY 500) 500 mg calcium (1,250 mg) tablet Take 1 tablet by mouth once daily. letrozole (FEMARA) 2.5 mg tablet Take 2.5 mg by mouth once daily. sodium chloride 0.9 % nebulizer solution Use 3 mL via nebulizer as needed. albuterol (PROVENTIL) 2.5 mg /3 mL (0.083 %) nebulizer solution Use 3 mL via nebulizer three times daily as needed. Inhale over 5-15 minutes latanoprost (XALATAN) 0.005 % ophthalmic solution Use 1 Drop in both eyes daily at bedtime. cholecalciferol (VITAMIN D-3) 2,000 unit tablet Take 2,000 Units by mouth once daily. Nebulizer and Compressor For Neb magdi 1 Device as needed. Use as directed. No current facility-administered medications for this visit. Chief Complaints: Some swelling and fatigue Discharge Post Operative Course: Pain scale :Yes chest wall and back. Advised to increase tyelnol to TID vs prn with notable discomfort Appetite: improving Activity: Walking ad fide around the house Elimination: normal, no constipation , urination is normal Sleep: difficulty staying asleep Mood: normal Incisions/Wounds: healing Review of Systems: HEENT: Negative for fevers since discharge Positive for hoarseness Cardiac: Denies significant problems, chest pain, Arrhythmia, and positive for BLE edema Respiratory: hx of bronchiectasis, vocal paralysis Musculoskeletal: hx of MS Neuro: Denies neurological complaints Physical Exam: BP 127/79 Pulse 83 Temp 36.4 C (97.6 F) (Oral) Ht 165.1 cm (5' 5 ) Wt 61.2 kg (135 lb) SpO2 94% BMI 22.47 kg/m Appearance: well developed, white female, in no acute distress Neck: No neck vein distention Cardiac: regular S1, S2, No murmur, No rub Lungs: Clear breath sounds bilaterally with decreased air entry at the bases bilaterally Abdomen: soft, non tender, Normal bowel sounds Extremities: Edema: bilateral 1+ Sternum: stable, no click Sternotomy site: healing, clean, dry and intact Wound: NA Procedures: N/A IMPRESSION & PLAN: 1.S/P on 09/09/2024 [facility] Surgeon: Janell Gonzáles MD Operations: LA Mass Excision and Reconstruction of the Interatrial Septum with Autologous Pericardial Patch/Moderate-severe MR with anterior-directed jet after weaning from CPB/Second cross-clamp - Atrial septum reconstructed with a patch of autologous pericardium Surgical Pathology/Microbiology: Final Diagnosis: A. Left atrial mass, excision: - Myxoma. Post op echo:CONCLUSIONS: - Technically difficult exam due to post op and bandages/chest tubes/wound. - Exam indication: s/p LA mass removal - The left ventricle is normal in size. Left ventricular systolic function is normal. EF = 64 5% (2D biplane) - The right ventricle is normal in size. Right ventricular systolic function is low normal. - Exam was compared with the prior echocardiographic exam performed on 09/09/2024 (OR). There has been interval removal of left atrial myxoma. Discharged on 09/14/2024 2. LA MASS - s/p removal - surg path reviewed myxoma - continue asa EC09/24/2024 Diagnosis: NORMAL SINUS RHYTHM MINIMAL VOLTAGE CRITERIA FOR LVH, MAY BE NORMAL VARIANT ( Sokolow-Fong ) NONSPECIFIC ST ABNORMALITY ABNORMAL ECG 3. Atelectasis/FVO - improving with small obey pleural effusions - weight: down 4lbs since discharge - continue diuretic for 5 more days. Then no more - encouraged to continue deep breathing exercises and walking CXR: 09/24/2024 RESULT: Lines, tubes, and devices: None. Lungs and pleura: Bilateral basilar opacities reflecting mucoid impactions with background bronchiectasis reflecting a sequela of chronic infectious/inflammatory process as seen on multiple prior exams. Stable blunting of the bilateral costophrenic angles with no sizable pleural effusion. No pneumothorax. Cardiomediastinal silhouette: Stable cardiomediastinal silhouette. Interval resolution in pneumomediastinum. Bones and soft tissues: Interval marked improvement of subcutaneous emphysema in cervical soft tissue. Intact medial sternotomy wires. 4. ABLA - post op - trending up - encouraged to increase dietary iron LABS: Latest Ref Rng 09/14/2024 09/24/2024 Alkaline Phosphatase 34 - 123 U/L 45 68 AST 13 - 35 U/L 16 17 ALT 7 - 38 U/L 9 7 Glucose 74 - 99 mg/dL 111 (H) 73 (L) BUN 7 - 21 mg/dL 24 (H) 18 Creatinine 0.58 - 0.96 mg/dL 0.57 (L) 0.66 Sodium 136 - 144 mmol/L 139 143 Potassium 3.7 - 5.1 mmol/L 4.4 4.4 Latest Ref Rng 09/14/2024 09/24/2024 WBC 3.70 - 11.00 k/uL 7.17 5.10 RBC 3.90 - 5.20 m/uL 3.28 (L) 3.62 (L) Hemoglobin 11.5 - 15.5 g/dL 9.1 (L) 10.1 (L) Hematocrit 36.0 - 46.0 % 29.2 (L) 32.6 (L) Platelet Count 150 - 400 k/uL 211 428 (H) Summary: See above. Follow up with PCP next week with repeat cbc and cmp to monitor trends. Follow up with hand winder in 4-6 weeks with consideration of repeat echo. Post op care and discharge orders reviewed with the patient- all questions were answered. Surgical sites healing without complication Discussed new medications, dosage, route of administration and side effects Reviewed walking program at home Reviewed diet guidelines for recovery from surgery Return to the clinic prn with signs or symptoms of infection, fevers, SOB, or pleural effusion SBE prophylaxis reviewed Discussed wound care Lillian Finch APRN.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 documented in this encounter [facility] 09-24-2024 Note [facility] 09-24-2024 History of Present illness Narrative Radiology Service Progress Note PATIENT NAME: Emeli Kaufman DATE OF SERVICE: September 24, 2024 TIME: 9:23 AM PATIENT IDENTITY VERIFICATION COMPLETED USING TWO (2) IDENTIFIERS: Name and Date of confirmed by patient verbally. FALL SCREENING: Has the patient had 2 falls in the last year or 1 fall with injury or currently using an Ambulatory Assistive Device (Walker, Cane, Wheelchair, Crutches, etc.)? No PATIENT GENDER DATA: Assigned female at . status: : No status: NO. PATIENT RELEVANT IMPLANT DATA REVIEWED: Not Applicable PATIENT PRESENTS WITH AN IMPLANTABLE OR ATTACHED SKEIN STRAIGHTENER: No RADIOLOGY DEPARTMENT: General X-ray: Exam(s) Completed: Chest X-Ray PERIPHERAL IV DATA: Not applicable SIGNED BY: JULIANA ORLANDO September 24, 2024 9:23 AM documented in this encounter [facility] 09-24-2024 Note [facility] 09-14-2024 Note [facility] 09-14-2024 Note [facility] 09-13-2024 Note [facility] 09-13-2024 Note [facility] 09-12-2024 Note [facility] 09-12-2024 Note [facility] 09-12-2024 Note [facility] 09-12-2024 Note [facility] 09-11-2024 Note [facility] 09-11-2024 Note [facility] 09-11-2024 Telephone encounter Note Per patient's the patient had her heart procedure done this past Monday and is currently admitted to [facility]. [phone] ([place]) Me [facility] 09-11-2024 Miscellaneous Notes Per patient's the patient had her heart procedure done this past Monday and is currently admitted to [facility]. [phone] (home) Me documented in this encounter [facility] 09-10-2024 Note [facility] 09-10-2024 Note [facility] 09-09-2024 Note [facility] 09-09-2024 Note [facility] 09-09-2024 Note [facility] 09-09-2024 Note [facility] 09-03-2024 Note [facility] 09-03-2024 History of Present illness Narrative Images from the original note were not included. Heart, Vascular and Thoracic Drain DEPARTMENT OF CARDIAC SURGERY OUTPATIENT VISIT DATE September 03, 2024 OUTPATIENT VISIT SERVICE DATE: 09/03/2024 SERVICE TIME: 5:53 PM PCP: Brianna Yanez [address] [place] [address] Referring Physician: SELF Patient Type: Established Visit to Determine Surgery: Yes HPI: Ms. Emeli Kaufman is a 63 year old female seen regarding candidacy for cardiac surgery. She has a left atrial mass. She's been cleared for surgery by ID for her bronchiectasis. Last CT Result Conclusion CTA CHEST (GATED) W IVCON Exam End: 07/11/2024 10:25 AM (Final result) Impression: IMPRESSION: LEFT ATRIUM: There is a 1.5 x 1.2 x 1.4 cm high attenuation (HU 81-120) mass attached to the interatrial septum, most consistent with myxoma as was seen on outside transesophageal echocardiogram AORTA: Normal size thoracic aorta. No acute aortic pathology. no evidence of wall changes. AORTIC VALVE: trileaflet.Trivial leaflet calcification. CORONARY ANATOMY: normal origin of the coronary arteries. Mild calcified atherosclerotic changes of the coronary arteries. However, the current study is not optimized for coronary assessment. LUNGS: Again seen biapical scarring. Extensive bilateral bronchiectasis more prominent in the mid and lower lung lobes with bronchiolectasis with exuberant bronchial wall thickening and mucoid impaction with likely associated postobstructive atelectasis and these findings appear slightly progressed since prior CT in 2019. Outside CT March 24, 2024 images are not available for direct comparison Small calcified lung nodules. MEDIASTINUM: mediastinal and hilar lymphadenopathy, stable. Assistant Cook: CALLI Transcribe Date/Time: Jul 11 2024 3:32P Dictated by : ZO NORRIS MD This examination was interpreted and the report reviewed and electronically signed by: ZO NORRIS MD on Jul 11 2024 4:17PM EST Last ECHO Result Conclusion ECHO Collected: 07/11/2024 12:49 PM (Final result) Impression: CONCLUSIONS: - Exam indication: LA Mass (OSH-DEZ) - The left ventricle is normal in size. Left ventricular systolic function is normal. EF = 55 5% (2D biplane) Normal left ventricular diastolic function. - The right ventricle is normal in size. Right ventricular systolic function is normal. - There is mild (1+) tricuspid valve regurgitation. - Estimated right ventricular systolic pressure is 41 mmHg consistent with mild pulmonary hypertension. Estimated right atrial pressure is 3 mmHg based on IVC assessment. - There is a trivial to small pericardial effusion adjacent to the right ventricle and right atrium measuring 0.4 cm. - There is homogenous immbobile solid mass adjacent to the interatrial septum within the left atrium measuring 1.3 x 1.2 cm (clips# [id number]). - Exam was compared with the prior echocardiographic exam performed on 07/19/2019. Pericardial effusion has decreased. There is is homogenous solid mass adjacent to the interatrial septum within the left atrium seen on today's exam. * * * Final * * * Impression: Left atrial mass Plan: Operative: left atrial mass removal. Based on my ev These findings will be communicated back to the requesting physician via electronic medical record Janell Gonzáles MD documented in this encounter [facility] 09-03-2024 Note Oncology Progress No te Chief Complaint Breast Ca; here to go over results bx results. Diagnoses 1. Breast cancer, left (C50.912: Malignant neoplasm of unspecified site of left female breast) Oncological History/ROS/PE/Assessment and Plan Diagnoses 1. Breast cancer, left (C50.912: Malignant neoplasm of unspecified site of left female breast) 2. Lytic bone lesions on xray (M89.9: Disorder of bone, unspecified) Oncological History/ROS/PE/Assessment and Plan Chief Complaint breast Ca; has a mole that would like to discuss today. Lytic bone lesion found on calvarium and iliac bones while she was admitted that [facility] with bronchiectasis related hemoptysis. HPI: Emeli is a 62-year-old lady with history of multiple sclerosis and bronchiectasis who was referred by Dr. Simon to our oncology clinic to be evaluated and managed for her new left breast invasive lobular carcinoma, [place] +90%, [place] +20 to 30%, HER2/elif 1+, and Ki67 was positive 1%. 2 out of 2 sentinel lymph node with positive for macro metastatic disease. Her tumor was discussed at the [facility] tumor board patient is to obtain [...] Lumpectomy with wire-guided localization LYMPH NODE SAMPLING: [place] lymph node(s) SPECIMEN INTEGRITY: multiple specimens (A [...] A: LEFT BREAST, LUMPECTOMY WITH NEEDLE LOCALIZATION: ??? INVASIVE LOBULAR CARCINOMA, GRADE 1 (1.1 CM). ??? LOBULAR CARCINOMA IN SITU. ??? MEDIAL AND ANTERIOR/POSTERIOR MARGIN < 1 MM FROM INVASIVE CARCINOMA. ??? PREVIOUS BIOPSY SITE IDENTIFIED. B: TRUE MARGINS, LEFT BREAST, EXCISION: ??? BENIGN FATTY BREAST TISSUE WITH NO EVIDENCE OF MALIGNANCY. ??? MARGINS NEGATIVE FOR MALIGNANCY. C: SENTINEL LYMPH NODES, LEFT BREAST, EXCISION: ??? METASTATIC LYMPH NODES IDENTIFIED (2/2). Recovering from her surgery and she is seeing Dr. Montano again today. She denies any chest pain or shortness of breath. She never had bone density scan. Is not currently on hormone replacement therapy (more content not included)... [facility] 08-29-2024 Note [facility] 08-27-2024 Note [facility] 08-27-2024 History of Present illness Narrative Images from the original note were not included. INFECTIOUS DISEASE CONSULT NOTE Date: August 27, 2024 Patient Name: Emeli Kaufman Voice recognition software has been used to create this note. Seeming errors in the note should be considered accordingly. Asked to see patient by Dr. Yeyo Gonzáles for bronchiectasis. My recommendations will be communicated back by way of shared medical record. HISTORY OF PRESENT ILLNESS: Emeli Kaufman is a 63 year old lady with long-standing bronchiectasis, who suffered bleeding complications during bronchoscopy in February 2024, requiring intubation and mechanical ventilation for about 5 days. During that hospitalization she was felt to have a small pulmonary embolus and was discharged from hospital on a blood thinner. A few hours after discharge from the hospital she developed massive hemoptysis and had to be readmitted and intubated and supported in an ICU. During this hospitalization she was found to have a left atrial mass. The patient was referred to [facility] after she recovered from the bleeding complications. Bronchiectasis has been reasonably well controlled on bronchodilator nebulizations and airway clearance maneuvers. Most years she has required one or two short courses of oral antibiotics for infectious flares, around the time of the season change in the fall and the spring. The patient was evaluated in the CT surgery clinic and accepted for surgery. Surgery is scheduled for 09/09/2024. Comorbid conditions include: multiple sclerosis, stable off medications; Significant past history: breast cancer treated with lumpectomy, axillary dissection, and radiation therapy, 2 years previously. 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 MEDICATIONS: Medications reviewed. Current antibiotics: None No current facility-administered medications for this visit. ALLERGIES Allergen Reactions Warfarin Other: See Comments Due to hemorrhaging ALL BLOOD THINNERS EXAMINATION: BP 130/80 (BP Site: Left Arm, BP Position: Sitting) Pulse 99 Temp 37.1 C (98.8 F) Resp 18 Wt 61.7 kg (136 lb) SpO2 95% BMI 22.63 kg/m Alert and oriented. Looks well. Thin build. No clubbing. Normal heart rate. No murmurs. Normal breath sounds. LAB, MICROBIOLOGY, AND IMAGING DATA: Lab results, microbiology findings, and imaging reports reviewed. Relevant images personally reviewed. Relevant findings are incorporated at the appropriate places in the history section. Lab Results Component Value Date HB 12.4 08/26/2024 HB 12.4 07/05/2019 HB Requisitioning entry error 05/05/2016 HB 13.5 05/05/2016 Lab Results Component Value Date WBC 4.69 08/26/2024 WBC 5.47 07/05/2019 WBC Requisitioning entry error 05/05/2016 WBC 5.81 05/05/2016 WBC eosinophil proportion: Lab Results Component Value Date EODINP 0.9 08/26/2024 EODINP 1.5 07/05/2019 EODINP Requisitioning entry error 05/05/2016 EODINP 0.9 05/05/2016 Lab Results Component Value Date PLT 253 08/26/2024 PLT 262 07/05/2019 PLT Requisitioning entry error 05/05/2016 PLT 233 05/05/2016 Lab Results Component Value Date CREAT 0.61 08/26/2024 CREAT 0.65 08/26/2024 CREAT 0.80 07/11/2024 Lab Results Component Value Date K 3.8 08/26/2024 K 4.7 08/26/2024 K 4.9 07/05/2019 Lab Results Component Value Date EGFROTH 99 08/26/2024 EGFROTH 98 08/26/2024 EGFROTH >60 07/11/2024 No results found for: CYSTATINC No results found for: EGFRAD Lab Results Component Value Date TBILI 0.3 08/26/2024 TBILI 0.4 07/05/2019 TBILI 0.3 05/05/2016 Lab Results Component Value Date AST 18 08/26/2024 AST 17 07/05/2019 AST 25 05/05/2016 Lab Results Component Value Date ALT 10 08/26/2024 ALT 7 07/05/2019 ALT 11 05/05/2016 Lab Results Component Value Date ALKPHOS 65 08/26/2024 ALKPHOS 60 07/05/2019 ALKPHOS 60 05/05/2016 CBC: Lab Results Component Value Date ABSNEUT 3.21 08/26/2024 LIVER: Lab Results Component Value Date INR 1.0 08/26/2024 TBILI 0.3 08/26/2024 CBILI <0.2 05/05/2016 BLEEDING RISK AND COAGULATION STUDIES: Lab Results Component Value Date APTT 28.8 08/26/2024 LD 156 08/26/2024 PANCREAS: No results found for: AMYLASE , LIPASE ENDOCRINE: Lab Results Component Value Date HBA1C 5.0 09/20/2005 NON-SPECIFIC INFLAMMATORY MARKERS: Lab Results Component Value Date WSR 15 04/12/2013 ASSESSMENT: Bronchiectasis. Left atrial myxoma. Scheduled to be removed surgically on 09/09/2024. RECOMMENDATIONS: The patient should be given a standard perioperative antibiotic course during her operation. Nothing more is needed. There is some concern that airway clearance may be impaired for a few days following her cardiac operation, and this may predispose the patient to develop an infectious flare of bronchiectasis. The patient will need to be monitored for the first few days postoperatively and should be treated with appropriate antibiotics if she develops symptoms and signs suggestive of an infectious flare of bronchiectasis. I will be away on 09/09, but will be back within two or three days of the patient's operation and will check in to see how the patient is doing at that time. Signature: Francisco Javier Calderón MD Pager: [phone] documented in this encounter [facility] 08-27-2024 History of Present illness Narrative 63 year old female with PMH notable for: Breast cancer (CMS/HCC) Bronchiectasis (CMS/HCC) Chronic cough COVID-19 Migraines Mucus plugging of bronchi Multiple sclerosis (CMS/HCC) Neurogenic bladder Paralysis of vocal cords Pericardial effusion Pt presents for preoperative evaluation prior to LA Mass Excision (1) with Janell Gonzáles MD on 09/09/2024. Pt is currently asymptomatic without any chest pain, shortness of breath, recent weight loss, fever, chills, nausea/vomiting, diarrhea. Airway: MP I, TM III Patient instructed to: - Follow surgical instruction regarding warfarin/ASA therapy - Continue: Albuterol, letrozole, fosamax - Hold: Calcium Pt denies any problems with prior anesthetics. Denies symptoms concerning for esophageal pathology. Accept blood products. T/S complete, negative ab. We additionally discussed the anesthetic plan, what to expect, and any questions or concerns the patient may have had. documented in this encounter [facility] 08-27-2024 Note [facility] 08-27-2024 Note [facility] 08-27-2024 History of Present illness Narrative AMBULATORY PATIENT EDUCATION READINESS TO LEARN Cognitive Ability: Alert and oriented Motivation To Learn: Interested Family Support: High - Very involved in pt care Instruction Provided To: Patient & Family Patient Learns Best By: Multiple Methods Factors Affecting Learning: None Physical Limitations Affecting Learning: None LEARNING RESPONSE Diagnosis: LA mass Education Topic: Pre-Op Open Heart Surgery Instructions Teaching Points: Logistics / Protocols /Complication Prevention Instruction/Supplemental Materials: Individual Instruction Patient/Family Response: Somewhat Follow up plan: Patient/Family to call [facility] with any further questions Referral (Recommendation): None Teach completed, topic: Patient educated to report to J1-2 on 09/09/2024 for check in for upcoming scheduled surgery. documented in this encounter [facility] 08-27-2024 Note [facility] 08-27-2024 History of Present illness Narrative CHART COPY-DO NOT DISCARD CARDIOVASCULAR SURGERY PRE-OPERATIVE ASSESSMENT NAME: Emeli Kaufman Alert Notes: DATE: 08/27/2024 SEX: female : 1960 AGE: [age] year old Estimated body mass index is 22.63 kg/m as calculated from the following: Height as of 07/11/24: 165.1 cm (5' 5 ). Weight as of an earlier encounter on 08/27/24: 61.7 kg (136 lb). Patient scheduled for surgery on: 09/09/2024 [facility] MD: Dr. Deangelo Morales CHIEF COMPLAINT: Pre-Op Open Heart Surgery MEDICATIONS: Current Outpatient Medications Medication Sig mupirocin (BACTROBAN) 2 % ointment Apply a small amount in each nostril using a cotton swab twice the day before surgery and once the morning of surgery. albuterol (PROVENTIL) 2.5 mg /3 mL (0.083 %) nebulizer solution Use 3 mL via nebulizer every 12 hours. Inhale over 5-15 minutes alendronate (FOSAMAX) 70 mg tablet Take 70 mg by mouth one time a week. calcium carbonate (OS-TONY 500) 500 mg calcium (1,250 mg) tablet Take 1 tablet by mouth once daily. letrozole (FEMARA) 2.5 mg tablet Take 2.5 mg by mouth once daily. sodium chloride 0.9 % nebulizer solution Use 3 mL via nebulizer as needed. albuterol (PROVENTIL) 2.5 mg /3 mL (0.083 %) nebulizer solution Use 3 mL via nebulizer three times daily as needed. Inhale over 5-15 minutes latanoprost (XALATAN) 0.005 % ophthalmic solution Use 1 Drop in both eyes daily at bedtime. cholecalciferol (VITAMIN D-3) 2,000 unit tablet Take 2,000 Units by mouth once daily. Nebulizer and Compressor For Neb magdi 1 Device as needed. Use as directed. No current facility-administered medications for this visit. ALLERGIES: ALLERGIES Allergen Reactions Warfarin Other: See Comments Due to hemorrhaging ALL BLOOD THINNERS LATEX ALLERGY: No FOOD SENSITIVITIES: No ANTICOAGULANTS: none STEROIDS: No HISTORIES: FAMILY HISTORY Problem Relation Age of Onset other ( at age 65) Mother other (vascular blood clot) Mother other ( at age 72) Father Blood Clots Father No Known Problems Brother other ( at age 19) Brother Drug abuse Brother No Known Problems Maternal Grandmother No Known Problems Maternal Grandfather No Known Problems Paternal Grandmother No Known Problems Paternal Grandfather other ( at age 35) Son Malig Hyperthermia Son No Known Problems Son No Known Problems Son PAST MEDICAL HISTORY Diagnosis Date Migraine with aura, without mention of intractable migraine without mention of status migrainosus Multiple sclerosis (HCC) Pulmonary 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 Social History Tobacco Use Smoking status: Never Smokeless tobacco: Never Vaping Use Vaping status: Never Used Substance Use Topics Alcohol use: No Drug use: No REVIEW OF SYSTEMS: GEN: Denies Complaints HEENT: Glasses, paralysis of vocal cord DERM: Denies Dermatological Complaints [employer] PARAPROFESSIONAL: remote hx of migraines, MS s/p treatment with Avonex (interferon beta 1a, discontinued in 2014 RESP: bronchiectasis w EVAN s/p voriconazole for 1 year, hx of hemptysis, pulm nodules, frequent pneumonia CARD: LA myxoma GI: Denies Gastrointestinal Complaints : Denies complaints ENDO: Denies Endocrine Complaints HEME: breast CA s/p radiation 05/2023 MUSC/SKEL: Osteopenia, MS s/p treatment with Avonex (interferon beta 1a, discontinued in 2014 PVD: Denies PVD Varicose Veins: No BRUITS (Carotid): see cards note PULSES: Pedal Left 2 Right 2 NYHA CLASSIFICATION: FAMILY HISTORY OF CAD: No ? PERFUSION INDEX: na Pacer Check: NA CARDIAC EVALUATION: Cardiac Cath: Date - 08/26/2024 Ultrasound: Date - 07/11/2024 PFT: Date - 07/11/2024 ECHO: Last ECHO Result Conclusion ECHO Collected: 07/11/2024 12:49 PM (Final result) Impression: CONCLUSIONS: - Exam indication: LA Mass (OSH-DEZ) - The left ventricle is normal in size. Left ventricular systolic function is normal. EF = 55 5% (2D biplane) Normal left ventricular diastolic function. - The right ventricle is normal in size. Right ventricular systolic function is normal. - There is mild (1+) tricuspid valve regurgitation. - Estimated right ventricular systolic pressure is 41 mmHg consistent with mild pulmonary hypertension. Estimated right atrial pressure is 3 mmHg based on IVC assessment. - There is a trivial to small pericardial effusion adjacent to the right ventricle and right atrium measuring 0.4 cm. - There is homogenous immbobile solid mass adjacent to the interatrial septum within the left atrium measuring 1.3 x 1.2 cm (clips# [id number], [id number]). - Exam was compared with the prior echocardiographic exam performed on 07/19/2019. Pericardial effusion has decreased. There is is homogenous solid mass adjacent to the interatrial septum within the left atrium seen on today's exam. * * * Final * * * CT Scan: Last CT Result Conclusion CTA CHEST (GATED) W IVCON Exam End: 07/11/2024 10:25 AM (Final result) Impression: IMPRESSION: LEFT ATRIUM: There is a 1.5 x 1.2 x 1.4 cm high attenuation (HU 81-120) mass attached to the interatrial septum, most consistent with myxoma as was seen on outside transesophageal echocardiogram AORTA: Normal size thoracic aorta. No acute aortic pathology. no evidence of wall changes. AORTIC VALVE: trileaflet.Trivial leaflet calcification. CORONARY ANATOMY: normal origin of the coronary arteries. Mild calcified atherosclerotic changes of the coronary arteries. However, the current study is not optimized for coronary assessment. LUNGS: Again seen biapical scarring. Extensive bilateral bronchiectasis more prominent in the mid and lower lung lobes with bronchiolectasis with exuberant bronchial wall thickening and mucoid impaction with likely associated postobstructive atelectasis and these findings appear slightly progressed since prior CT in 2019. Outside CT March 24, 2024 images are not available for direct comparison Small calcified lung nodules. MEDIASTINUM: mediastinal and hilar lymphadenopathy, stable. Assistant Cook: CALLI Transcribe Date/Time: Jul 11 2024 3:32P Dictated by : ZO NORRIS MD This examination was interpreted and the report reviewed and electronically signed by: ZO NORRIS MD on Jul 11 2024 4:17PM EST MRI: na CXR: XR CHEST 2V FRONTAL/LAT Result Date: 08/26/2024 IMPRESSION: See result Assistant Cook: [facility] Transcribe Date/Time: Aug 26 2024 2:44P Dictated by : SIVA NARANJO MD This examination was interpreted and the report reviewed and electronically signed by: SIVA NARANJO MD on Aug 26 2024 2:48PM EST EKG: Last EKG Result Conclusion ECG COMPLETE Collected: 08/26/2024 9:47 AM (Preliminary result) Impression: NORMAL SINUS RHYTHM LEFT VENTRICULAR HYPERTROPHY WITH REPOLARIZATION ABNORMALITY ( Sokolow-Fong , [place] product ) ABNORMAL ECG Dental: Not Cleared NA ? Recent Labs 08/26/24 1120 08/26/24 1012 WBC -- 4.69 HB -- 12.4 HCT -- 40.1 PLT -- 253 INR -- 1.0 APTT -- 28.8 PTSEC -- 11.1 NA 140 141 K 3.8 4.7 BUN 20 21 CREAT 0.61 0.65 Pre Op Instructions per protocol reviewed and handout given to patient . Patient Education completed and documented. Instructed to start Bactroban per protocol. Emotional support provided to patient and family. All questions and concerns adressed. Signature: Aundrea Morales RN See Cardiology History and Physical dated 08/27/2024 documented in this encounter [facility] 08-26-2024 Note [facility] 08-26-2024 History of Present illness Narrative Radiology Service Progress Note PATIENT NAME: Emeli Kaufman DATE OF SERVICE: August 26, 2024 TIME: 10:05 AM PATIENT IDENTITY VERIFICATION COMPLETED USING TWO (2) IDENTIFIERS: Name and Date of confirmed by patient verbally. FALL SCREENING: Has the patient had 2 falls in the last year or 1 fall with injury or currently using an Ambulatory Assistive Device (Walker, Cane, Wheelchair, Crutches, etc.)? No PATIENT GENDER DATA: Assigned female at . status: : No status: NO. PATIENT RELEVANT IMPLANT DATA REVIEWED: Not Applicable PATIENT PRESENTS WITH AN IMPLANTABLE OR ATTACHED SKEIN STRAIGHTENER: No RADIOLOGY DEPARTMENT: General X-ray: Exam(s) Completed: Chest X-Ray PERIPHERAL IV DATA: Not applicable SIGNED BY: RT Ramses(Adriel) August 26, 2024 10:05 AM documented in this encounter [facility] 08-26-2024 Note [facility] 08-25-2024 Telephone encounter Note CARDIOVASCULAR LAB INSTRUCTIONS: Readiness to Learn: Cognitive Ability: Alert and oriented Motivation To Learn: Interested Family/Significant Other Support: Unable to assess - Family not present Instruction Provided To: Patient Patient Learns Best By: Verbal Instruction Factors Affecting Learning: None Physical Limitations Affecting Learning: None Learning Response: Procedure: Left Heart Diagnostic Pre procedure education topics: Arrival time/NPO Status/Medications/Travel Instructions/Restrictions Patient/Family Response Evaluation: Verbalizes understanding Follow Up Plan and Medication: As directed by physician Instruction/Supplemental Material Given: Cardiac catheterization instructions, procedure information, hospital information, hotel information. Instructed By Lurdes Cooper RN, RN. In Department of CARDIOLOGY. [facility] 08-25-2024 Miscellaneous Notes CARDIOVASCULAR LAB INSTRUCTIONS: Readiness to Learn: Cognitive Ability: Alert and oriented Motivation To Learn: Interested Family/Significant Other Support: Unable to assess - Family not present Instruction Provided To: Patient Patient Learns Best By: Verbal Instruction Factors Affecting Learning: None Physical Limitations Affecting Learning: None Learning Response: Procedure: Left Heart Diagnostic Pre procedure education topics: Arrival time/NPO Status/Medications/Travel Instructions/Restrictions Patient/Family Response Evaluation: Verbalizes understanding Follow Up Plan and Medication: As directed by physician Instruction/Supplemental Material Given: Cardiac catheterization instructions, procedure information, hospital information, hotel information. Instructed By Lurdes Cooper RN, RN. In Department of CARDIOLOGY. documented in this encounter [facility] 08-15-2024 Telephone encounter Note Expedite surgery: LA mass excision (1) 08/26-LHC 08/27-Testing, TCI, ID (Dr. Combs, if available) , Tong, 30 day 09/09-OHS Send FedEx (not comfortable with MyChart) Patient accepted surgery date of 09/09. LHC will be on 08/26. Testing, TCI, ID (requesting Dr. Terrence Combs), Tong to be done on 08/27. Patient will stop OTC products on 09/04 and verbalized understanding. No dental clearance is needed. Shaneka Mishra RN Cardiac Surgery PreOp Checklist Patient Name: Emeli Kaufman OR Surgery Date: 09/09/24 TCI Appt. Date: 08/27/24 Primary Care Provider: Brianna Yanez MD Definition Comments Diabetes/Insulin Pump A1-c and Endo consult (need for pump pt) n/a Hypothyroid/thyroid nodules TSH/US of thyroid if new nodule n/a Stroke (CVA) Neurology consult n/a Dysphagia, stricture w/no recent dilation, Sampson's Esophagus GI consult n/a Von Willebrand/thrombocytopenia/ Blood... Hematology consult n/a Abnormal labs from outside Place any necessary consults n/a Cardiac Cath Correct birthday/include all images/moving if outside cath [facility] 08/26/24 Redo OHS/Robotic surgery/radiation to chest CT or CTA/if outside CT will need in-house CXR, Cardiac MRI n/a Mechanical valve Admit for Heparin/Lovenox bridge n/a Female <50 y/o HCG n/a Heparin allergy hx of HIT Vascular Medicine consult n/a Nickel/Metal allergy Dermatology consult n/a Breast implants/Robotic candidates Plastic Surgery consult n/a Urinary strictures Urology consult/Urology consult to OR ordered and n/a All stimulators/spinal stimulator Type of stimulator n/a PPM/AICD Device check n/a Valve/TAVR/TEVAR/Myectomy/ascendi ng aorta Dental clearance/Dental Consult at [facility] n/a CABG surgery with previous CABG/varicose vein/vein stripping Leg vein mapping n/a LMT disease > 30% or Carotid Bruits Carotid ultrasound n/a Descending Aneurysm/TEVAR/TAA Pre-admit/hydration/spinal drain to be placed: IR/OR/Not Needed n/a Dialysis patient IHD day prior to OHS n/a CABG with no ECHO results Discussion w/surgeon results for dental clearance: preop/postop n/a Advanced Directives Instructions given to patient Not discussed FMLA Forward to AA n/a Test/Consult not needed Communicate in Epic or Access n/a Record of decreased PFTs, known lung disease Any pulmonary consult n/a Pulmonary embolectomy Needs US/Duplex BLE, VQ scan RHC, possible LHC, Pulmonary and/or Vascular consult n/a Abnormal CT All>1cm if further workup/consult needed n/a CC-Bio Repostitory Notification of packet and general knowledge given to pt n/a [facility] 08-15-2024 Miscellaneous Notes Expedite surgery: LA mass excision (1) 08/26-LHC 08/27-Testing, TCI, ID (Dr. Combs, if available) , , day 09/09-OHS Send FedEx (not comfortable with MyChart) Patient accepted surgery date of 09/09. LHC will be on 08/26. Testing, TCI, ID (requesting Dr. Terrence Combs), Tong to be done on 08/27. Patient will stop OTC products on 09/04 and verbalized understanding. No dental clearance is needed. Shaneka Mishra RN Cardiac Surgery PreOp Checklist Patient Name: Emeli Kaufman OR Surgery Date: 09/09/24 TCI Appt. Date: 08/27/24 Primary Care Provider: Brianna Yanez MD Definition Comments Diabetes/Insulin Pump A1-c and Endo consult (need for pump pt) n/a Hypothyroid/thyroid nodules TSH/US of thyroid if new nodule n/a Stroke (CVA) Neurology consult n/a Dysphagia, stricture w/no recent dilation, Sampson's Esophagus GI consult n/a Von Willebrand/thrombocytopenia/ Blood... Hematology consult n/a Abnormal labs from outside Place any necessary consults n/a Cardiac Cath Correct birthday/include all images/moving if outside cath [facility] 08/26/24 Redo OHS/Robotic surgery/radiation to chest CT or CTA/if outside CT will need in-house CXR, Cardiac MRI n/a Mechanical valve Admit for Heparin/Lovenox bridge n/a Female <50 y/o HCG n/a Heparin allergy hx of HIT Vascular Medicine consult n/a Nickel/Metal allergy Dermatology consult n/a Breast implants/Robotic candidates Plastic Surgery consult n/a Urinary strictures Urology consult/Urology consult to OR ordered and n/a All stimulators/spinal stimulator Type of stimulator n/a PPM/AICD Device check n/a Valve/TAVR/TEVAR/Myectomy/ascendi ng aorta Dental clearance/Dental Consult at [facility] n/a CABG surgery with previous CABG/varicose vein/vein stripping Leg vein mapping n/a LMT disease > 30% or Carotid Bruits Carotid ultrasound n/a Descending Aneurysm/TEVAR/TAA Pre-admit/hydration/spinal drain to be placed: IR/OR/Not Needed n/a Dialysis patient IHD day prior to OHS n/a CABG with no ECHO results Discussion w/surgeon results for dental clearance: preop/postop n/a Advanced Directives Instructions given to patient Not discussed FMLA Forward to AA n/a Test/Consult not needed Communicate in Epic or Access n/a Record of decreased PFTs, known lung disease Any pulmonary consult n/a Pulmonary embolectomy Needs US/Duplex BLE, VQ scan RHC, possible LHC, Pulmonary and/or Vascular consult n/a Abnormal CT All>1cm if further workup/consult needed n/a CC-Bio Repostitory Notification of packet and general knowledge given to pt n/a Dr. Gonzáles met with patient and is offering surgery. NPM will contact patient to discuss scheduling. Shaneka Mishra RN documented in this encounter [facility] 08-15-[address] Gonzáles met with patient and is offering surgery. NPM will contact patient to discuss scheduling. Shaneka Mishra RN [facility] 08-14-2024 Note [facility] 08-14-2024 History of Present illness Narrative Images from the original note were not included. Heart, Vascular and Thoracic Drain DEPARTMENT OF CARDIAC SURGERY OUTPATIENT VISIT DATE August 14, 2024 OUTPATIENT VISIT SERVICE DATE: 08/14/2024 SERVICE TIME: 9:21 AM PCP: Brianna Yanez [address] [place] [address] Referring Physician: Janell Gonzáles [facility] [address] [facility] [id number] Patient Type: Established Visit to Determine Surgery: Yes HPI: Ms. Emeli Kaufman is a 63 year old female seen regarding candidacy for cardiac surgery. She is currently asymptomatic. Comorbidities include bronchiectasis. I have personally reviewed and analyzed all records that pertain to the patient's prior course in addition to the following studies: CT scan and echo. Last CT Result Conclusion CTA CHEST (GATED) W IVCON Exam End: 07/11/2024 10:25 AM (Final result) Impression: IMPRESSION: LEFT ATRIUM: There is a 1.5 x 1.2 x 1.4 cm high attenuation (HU 81-120) mass attached to the interatrial septum, most consistent with myxoma as was seen on outside transesophageal echocardiogram AORTA: Normal size thoracic aorta. No acute aortic pathology. no evidence of wall changes. AORTIC VALVE: trileaflet.Trivial leaflet calcification. CORONARY ANATOMY: normal origin of the coronary arteries. Mild calcified atherosclerotic changes of the coronary arteries. However, the current study is not optimized for coronary assessment. LUNGS: Again seen biapical scarring. Extensive bilateral bronchiectasis more prominent in the mid and lower lung lobes with bronchiolectasis with exuberant bronchial wall thickening and mucoid impaction with likely associated postobstructive atelectasis and these findings appear slightly progressed since prior CT in 2019. Outside CT March 24, 2024 images are not available for direct comparison Small calcified lung nodules. MEDIASTINUM: mediastinal and hilar lymphadenopathy, stable. Assistant Cook: CALLI Transcribe Date/Time: Jul 11 2024 3:32P Dictated by : ZO NORRIS MD This examination was interpreted and the report reviewed and electronically signed by: ZO NORRIS MD on Jul 11 2024 4:17PM EST Last ECHO Result Conclusion ECHO Collected: 07/11/2024 12:49 PM (Final result) Impression: CONCLUSIONS: - Exam indication: LA Mass (OSH-DEZ) - The left ventricle is normal in size. Left ventricular systolic function is normal. EF = 55 5% (2D biplane) Normal left ventricular diastolic function. - The right ventricle is normal in size. Right ventricular systolic function is normal. - There is mild (1+) tricuspid valve regurgitation. - Estimated right ventricular systolic pressure is 41 mmHg consistent with mild pulmonary hypertension. Estimated right atrial pressure is 3 mmHg based on IVC assessment. - There is a trivial to small pericardial effusion adjacent to the right ventricle and right atrium measuring 0.4 cm. - There is homogenous immbobile solid mass adjacent to the interatrial septum within the left atrium measuring 1.3 x 1.2 cm (clips# [id number], [id number]). - Exam was compared with the prior echocardiographic exam performed on 07/19/2019. Pericardial effusion has decreased. There is is homogenous solid mass adjacent to the interatrial septum within the left atrium seen on today's exam. * * * Final * * * Impression: Left atrial myxoma. Bronchectasis is relatively well controlled Plan: Operative: left atrial removal Based on my evaluation she is a medium risk for cardiac surgery. The risks, benefits and anticipated outcomes of the procedure, the risks and benefits of the alternatives to the procedure, and the roles and tasks of the personnel to be involved, were discussed with the patient, and the patient consents to the procedure and agrees to proceed. We discussed the possibility that there could be two patients undergoing surgery in two separate rooms (concurrent surgery) and that I would be present for the critical components of all operations. We also discussed that in an emergency situation, a qualified backup surgeon is available and in the rare event of such a serious situation, that colleague might take over the operation. These findings will be communicated back to the requesting physician via electronic medical record Janell Gonzáles MD documented in this encounter [facility] 08-06-2024 Note [facility] 08-06-2024 Note [facility] 08-01-2024 Note [facility] 07-23-2024 Telephone encounter Note Patient agreed to F/U with Dr. Gonzáles on 08/13/24 at 1 pm. Shaneka Mishra RN [facility] 07-23-2024 Miscellaneous Notes Patient agreed to F/U with Dr. Gonzáles on 08/13/24 at 1 pm. Shaneka Mishra RN Expedite evaluation Schedule Pulmonology appt and call patient with date Patient will need Pulmonology consult for clearance for heart surgery regarding Bronchiectasis. Shaneka Mishra RN From: Chayo Kerr Sent: Friday, July 12, 2024 8:44 AM To: Shaneka Mishra < > Subject: Call from Emeli Kaufman ([id number]) - Patient ready to schedule for surgery Good morning Patient saw Dr. Gonzáles on 07/11 and has decided to move forward with scheduling her surgery. She can be reached at [phone]. documented in this encounter [facility] 07-19-2024 Instructions Jung Quiroz MD - 07/19/2024 2:57 PM EST It was a pleasure to meet you Ms. Kaufman. Please follow strict bronchopulmonary hygiene as advised in the clinic today I have prescribed the Albuterol as discussed Please resume the Vest therapy after you discuss with your professional driver as you desired. I do not see contra-indication to it as of now. F/u with you professional driver post surgery documented in this encounter [facility] 07-19-2024 Note [facility] 07-19-2024 History of Present illness Narrative Images from the original note were not included. . Respiratory Drain Note Ms. Kaufman is a 63 year old female who presents to the [facility] Respiratory Drain. Consultation requested by Dr. 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 Initially patient had CT scan which showed right pulmonary embolism with extensive mediastinal and hilar adenopathy for which she was started on anticoagulation afterward patient developed massive hemoptysis requiring intubation and underwent bronchoscopy for airway evaluation which was found to have large clot which was removed. As of today, she feels well with no real complains as such. She has been non compliant with BPH. She otherwise has had no recent infections or any antibiotic therapy after April 2024. She denies fever, chills, excessive sputum or any other symptoms. 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 Work and Exposure Histories: Social History Tobacco Use Smoking status: Never Smokeless tobacco: Never Vaping Use Vaping status: Never Used Substance Use Topics Alcohol use: No Drug use: No Occupation: Asbestos: No significant exposure. Silica: No significant exposure. [place]: No significant exposure. Organic HP antigen: No significant exposure. Inorganic HP antigen: No significant exposure. Mold: No significant exposure. Tree pollen: No significant exposure. Radiation: No significant exposure. Fumes: No significant exposure. Metal dust: No significant exposure. Beryllium: No significant exposure. Dust: No significant exposure. Family History: FAMILY HISTORY Problem Relation Age of Onset other ( at age 65) Mother other (vascular blood clot) Mother other ( at age 72) Father Blood Clots Father No Known Problems Brother other ( at age 19) Brother Drug abuse Brother No Known Problems Maternal Grandmother No Known Problems Maternal Grandfather No Known Problems Paternal Grandmother No Known Problems Paternal Grandfather other ( at age 35) Son Malig Hyperthermia Son No Known Problems Son No Known Problems Son Allergies and Medications: Warfarin Outpatient Medications: alendronate (FOSAMAX) 70 mg tablet Take 70 mg by mouth one time a week. calcium carbonate (OS-TONY 500) 500 mg calcium (1,250 mg) tablet Take 1 tablet by mouth once daily. letrozole (FEMARA) 2.5 mg tablet Take 2.5 mg by mouth once daily. sodium chloride 0.9 % nebulizer solution Use 3 mL via nebulizer as needed. albuterol (PROVENTIL) 2.5 mg /3 mL (0.083 %) nebulizer solution Use 3 mL via nebulizer three times daily as needed. Inhale over 5-15 minutes latanoprost (XALATAN) 0.005 % ophthalmic solution Use 1 Drop in both eyes daily at bedtime. cholecalciferol (VITAMIN D-3) 2,000 unit tablet Take 2,000 Units by mouth once daily. Nebulizer and Compressor For Neb magdi 1 Device as needed. Use as directed. Health Risks: Ms. Kaufman is not having pain related to the reason for this visit. PHYSICAL EXAM: BP 146/85 Pulse 90 Temp (Src) 98.4 (Temporal) Resp 16 Wt 127 lb (57.6kg) SpO2 95% Constitutional: Normal exam Skin: No skin rash or nodules Eyes:Anicteric sclera. Pupils are equally round and reactive to light. Extraocular movements are intact. ENT : External ears normal, canals clear, Neck veins are not distended, no carotid bruits Nodes: No palpable lymphnodes Nose/Sinuses: Nares normal. Septum midline. Mucosa normal. No drainage or sinus tenderness. Cardiac: RRR without murmur, gallop, or rubs. No ectopy, Negative findings: S1 normal, S2 normal Respiratory: NVBS heard in the anterior lung koch Abdomen: No hepatomegaly or spleenomegaly, no abdominal tenderness, Bowel sounds normal. Extremities: No deformities, edema, skin discoloration, clubbing or cyanosis. Good capillary refill. , negative findings: no cyanosis, clubbing or edema, no deformities present Neuro: Gait normal. Reflexes normal and symmetric. Sensation grossly intact., Negative findings: muscle tone normal, muscle strength normal Peripheral pulses: Pulses palpable Labs / Imaging / Diagnostic Studies: All personally reviewed by me Data Reviewed (in addition to that noted in HPI, and Past histories above): CT Chest: Severe bronchiectasis with mucoid impaction Echo: normal biventricular function Assessment: Ms. 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 Plan: From a bronchiectasis standpoint of view, she is not having any exacerbation or bothersome symptoms as of now except for a chronic cough. I counseled her extensively about the importance of bronchopulmonary hygiene She does not have any current signs of infection or anything else that I can optimize from that aspect She did have life-threatening hemoptysis in February 2024. This makes the scenario challenging with regards to anticoagulation during and postsurgery. I will leave this to the operating surgeon for further evaluation. PREOPERATIVE EVALUATION: This patients ARISCAT score is 50 for a Atrial Myxoma removal procedure = 42.1% risk for perioperative pulmonary complications (such as hypoxemia, hypercapnia, atelectasis, pulmonary infection, prolonged mechanical ventilatory needs). This patients [place] Respiratory Failure Index is 31 = 11.6% risk of respiratory failure (defined as prolonged intubation >48 hours). These risk do not preclude the patient from a medically necessary surgical procedure. We would recommend the following intervention to minimize the patients risk for respiratory complications: Please consult pulmonary medicine when hospitalized # Lung Expansion Maneuvers: Provide teaching on using incentive spirometry & deep breathing exercises prior to surgery; these should be done 10X an hour, every hour while awake. Provide adequate suctioning if indicated Intermittent positive pressure breathing or CPAP @ 10 cm H20 as needed # Early mobilization of the patient, aggressive PT/OT # Bronchodilator therapy: Albuterol INH q4h as needed Duoneb INH q4h while awake Advair/pulmicort # Pain control: Multimodal pain control to encourage deep breathing and ambulation # Ventilator/post extubation Low tidal volume ventilation (~6 ml/kg) when intubated. Early extubation as able Post-operatively consider extubating to BIPAP (especially if the patient is drowsy or has evidence of hypercapnia) # Other: Diuresis to maintain patient at dry weight Adequate glycemic control (target blood glucose <180) Bowel regimen: prevention of constipation and abdominal distension, aspiration precautions, NGT if needed. DVT prophylaxis Discussed with Dr. Dominguez who agrees with above. Jung Quiroz MD Pulmonary Critical Care Associated attestation - Joan Dominguez MD - 07/20/2024 2:12 PM EST I confirmed the above information and modified the note according to my findings. I have personally examined the patient and reviewed the data from the lab and radiologic studies and discussed the plan with Dr. Quiroz. IMPRESSION/PLAN: This is a 63 year old female who was referred to the [facility] for preop eval prior to planned left atrial myxoma removal. Has known bronchiectasis but disease is not currently active. Recent admission for massive hemoptysis which may be an issue if systemic anticoagulation is needed intra-op. Has not had any hemoptysis since discharge. She will be at increased risk of periop pulmonary complications (see below) but I think she is optimized at this time. See below for periop recommendations regarding pulmonary bronchiectasis management. Staff: Joan Dominguez MD documented in this encounter [facility] 07-12-2024 Note [facility] 07-12-2024 History of Present illness Narrative Images from the original note were not included. Heart, Vascular and Thoracic Drain DEPARTMENT OF CARDIAC SURGERY OUTPATIENT VISIT DATE July 12, 2024 OUTPATIENT VISIT SERVICE DATE: 07/12/2024 SERVICE TIME: 3:54 PM PCP: Brianna Yanez [address] [place] [address] Referring Physician: Janell Gonzáles [id number] [facility] [address] Patient Type: New Visit to Determine Surgery: Yes HPI: Ms. Emeli Kaufman is a 63 year old female seen regarding candidacy for cardiac surgery. She is currently symptomatic and complains of shortness of breath and coughing but not related to her LA mass. Comorbidities include bronchiectasis, MS. I have personally reviewed and analyzed all records that pertain to the patient's prior course in addition to the following studies: CT scan. Last CT Result Conclusion CTA CHEST (GATED) W IVCON Exam End: 07/11/2024 10:25 AM (Final result) Impression: IMPRESSION: LEFT ATRIUM: There is a 1.5 x 1.2 x 1.4 cm high attenuation (HU 81-120) mass attached to the interatrial septum, most consistent with myxoma as was seen on outside transesophageal echocardiogram AORTA: Normal size thoracic aorta. No acute aortic pathology. no evidence of wall changes. AORTIC VALVE: trileaflet.Trivial leaflet calcification. CORONARY ANATOMY: normal origin of the coronary arteries. Mild calcified atherosclerotic changes of the coronary arteries. However, the current study is not optimized for coronary assessment. LUNGS: Again seen biapical scarring. Extensive bilateral bronchiectasis more prominent in the mid and lower lung lobes with bronchiolectasis with exuberant bronchial wall thickening and mucoid impaction with likely associated postobstructive atelectasis and these findings appear slightly progressed since prior CT in 2019. Outside CT March 24, 2024 images are not available for direct comparison Small calcified lung nodules. MEDIASTINUM: mediastinal and hilar lymphadenopathy, stable. Assistant Cook: PSCB Transcribe Date/Time: Jul 11 2024 3:32P Dictated by : ZO NORRIS MD This examination was interpreted and the report reviewed and electronically signed by: ZO NORRIS MD on Jul 11 2024 4:17PM EST Last ECHO Result Conclusion ECHO Collected: 07/11/2024 12:49 PM (Final result) Impression: CONCLUSIONS: - Exam indication: LA Mass (OSH-DEZ) - The left ventricle is normal in size. Left ventricular systolic function is normal. EF = 55 5% (2D biplane) Normal left ventricular diastolic function. - The right ventricle is normal in size. Right ventricular systolic function is normal. - There is mild (1+) tricuspid valve regurgitation. - Estimated right ventricular systolic pressure is 41 mmHg consistent with mild pulmonary hypertension. Estimated right atrial pressure is 3 mmHg based on IVC assessment. - There is a trivial to small pericardial effusion adjacent to the right ventricle and right atrium measuring 0.4 cm. - There is homogenous immbobile solid mass adjacent to the interatrial septum within the left atrium measuring 1.3 x 1.2 cm (clips# [id number], [id number]). - Exam was compared with the prior echocardiographic exam performed on 07/19/2019. Pericardial effusion has decreased. There is is homogenous solid mass adjacent to the interatrial septum within the left atrium seen on today's exam. * * * Final * * * Impression: Severe bronchiectasis Plan: Operative: LA mass removal Based on my evaluation she is a medium risk for cardiac surgery. The risks, benefits and anticipated outcomes of the procedure, the risks and benefits of the alternatives to the procedure, and the roles and tasks of the personnel to be involved, were discussed with the patient, and the patient consents to the procedure and agrees to proceed. We discussed the possibility that there could be two patients undergoing surgery in two separate rooms (concurrent surgery) and that I would be present for the critical components of all operations. We also discussed that in an emergency situation, a qualified backup surgeon is available and in the rare event of such a serious situation, that colleague might take over the operation. These findings will be communicated back to the requesting physician via electronic medical record Janell Gonzáles MD documented in this encounter [facility] 07-12-2024 Telephone encounter Note Expedite evaluation Schedule Pulmonology appt and call patient with date Patient will need Pulmonology consult for clearance for heart surgery regarding Bronchiectasis. Shaneka Mishra RN [facility] 07-12-2024 Telephone encounter Note From: Chayo Kerr Sent: Friday, July 12, 2024 8:44 AM To: Shaneka Mishra Subject: Call from Emeli Kaufman ([id number]) - Patient ready to schedule for surgery Good morning Patient saw Dr. Gonzáles on 07/11 and has decided to move forward with scheduling her surgery. She can be reached at [phone]. [facility] 07-11-2024 Note HNO ID: [id number] Author: HARDEEP HATHAWAY RRT Service: ? Author Type: Registered Resp Therapist Type: Progress Notes Filed: 07/11/2024 11:35 Note Text: PULM FUNCTION: Provider: Janell Gonzáles MD Spirometry: 1 DLCO: 1 [facility] 07-11-2024 History of Present illness Narrative PULM FUNCTION: Provider: Janell Gonzáles MD Spirometry: 1 DLCO: 1 documented in this encounter [facility] 07-11-2024 History of Present illness Narrative RADIOLOGY SERVICE PROGRESS NOTE SERVICE DATE: 07/11/2024 SERVICE TIME: 10:35 AM PATIENT IDENTITY VERIFICATION COMPLETED USING TWO (2) STANDARD IDENTIFIERS: Name and Date of confirmed by patient verbally FALL SCREENING: Has the patient had 2 falls in the last year or 1 fall with injury or currently using an Ambulatory Assistive Device (Walker, Cane, Wheelchair, Crutches, etc.)? No PATIENT GENDER DATA: .female : No ALLERGIES: Reviewed and unchanged MEDICATIONS REVIEWED: Yes PATIENT RELEVANT IMPLANT DATA REVIEWED: Not Applicable PATIENT PRESENTS WITH AN IMPLANTABLE OR ATTACHED SKEIN STRAIGHTENER: No CREATININE: Creatinine Date Value Ref Range Status 07/05/2019 0.71 0.58 - 0.96 mg/dL Final 12/11/2015 0.73 0.70 - 1.40 mg/dL Final Creatinine (POCT) Date Value Ref Range Status 07/11/2024 0.80 0.7 - 1.4 mg/dL Final eGFR (POCT) Date Value Ref Range Status 07/11/2024 >60 mL/min/1.73 m2 Final eGFR- Date Value Ref Range Status 07/05/2019 >60 Final P.O.C.T. RESULTS: N/A July 11, [address] PERFORMED: No IV SITE: Ambulatory: A peripheral IV was started in the Right antecubital site with a Angio cath: 20 gauge. POST EXAM PIV STATUS: Discontinued PROCEDURE TYPE: VQ Scan: 0.8 mCi of Tc99m DTPA was inhaled. 5.0 mCi of Tc99m MAA was administered IV. ADMINISTRATION TIME: 1034 PATIENT DISCHARGED TO: Ambulatory patient, left [place] department area. Is this a therapy: No A Diagnostic radioactive procedure has taken place, with no further precautions necessary other than routine body substance precautions. More information regarding radiation safety can be found using this link: [email or web address] SIGNATURE: RT Saira(R) PATIENT NAME: Emeli Kaufman DATE: July 11, 2024 TIME: 10:35 AM PAGER/CONTACT #: documented in this encounter [facility] 07-11-2024 Note [facility] 07-11-2024 History of Present illness Narrative Radiology Service Progress Note DATE OF SERVICE: July 11, 2024 TIME: 10:03 AM PATIENT WEIGHT: 127 LBS PATIENT IDENTITY VERIFICATION COMPLETED USING TWO (2) STANDARD IDENTIFIERS: Name and Date of confirmed by patient verbally and Name and Date of confirmed by identification band. FALL SCREENING: Has the patient had 2 falls in the last year or 1 fall with injury or currently using an Ambulatory Assistive Device (Walker, Cane, Wheelchair, Crutches, etc.)? No PATIENT GENDER DATA: Female. status: : No status: NO. ALLERGIES: Reviewed and unchanged CONTRAST ALLERGY: No EXAM: CT -CONTRAST INDUCED NEPHROPATHY RISK FACTORS: Patient age > 60 years CREATININE: Creatinine Date Value Ref Range Status 07/05/2019 0.71 0.58 - 0.96 mg/dL Final 12/11/2015 0.73 0.70 - 1.40 mg/dL Final Creatinine (POCT) Date Value Ref Range Status 07/11/2024 0.80 0.7 - 1.4 mg/dL Final eGFR (POCT) Date Value Ref Range Status 07/11/2024 >60 mL/min/1.73 m2 Final eGFR- Date Value Ref Range Status 07/05/2019 >60 Final P.O.C.T. RESULTS: POC done: Yes, See Lab Tab July 11, 2024 TREATMENT: No Hydration needed. IV SITE: Ambulatory: A peripheral IV was started in the Right antecubital site with a Angio cath: 20 gauge. IV SITE APPEARANCE: Clean,Dry and Intact SIGNATURE: Gina Combs RN PATIENT NAME: Emeli Kaufman DATE: July 11, 2024 TIME: 10:03 AM Radiology Service Progress Note PATIENT NAME: Emeli Kaufman DATE OF SERVICE: July 11, 2024 TIME: 10:22 AM PATIENT IDENTITY VERIFICATION COMPLETED USING TWO (2) IDENTIFIERS: Name and Date of confirmed by patient verbally and Name and Date of confirmed by identification band. FALL SCREENING: Has the patient had 2 falls in the last year or 1 fall with injury or currently using an Ambulatory Assistive Device (Walker, Cane, Wheelchair, Crutches, etc.)? No PATIENT GENDER DATA: Female. status: : No status: NO. PATIENT RELEVANT IMPLANT DATA REVIEWED: Yes PATIENT PRESENTS WITH AN IMPLANTABLE OR ATTACHED SKEIN STRAIGHTENER: No RADIOLOGY DEPARTMENT: CT; Exam(s) Completed: Cardiac PERIPHERAL IV DATA: Site assessment: Clean,Dry and Intact, Site disposition Left in for next appointment SIGNED BY: RT Lucrecia(R) July 11, 2024 10:22 AM documented in this encounter [facility] 07-11-2024 Note [facility] 07-11-2024 Note [facility] 07-11-2024 History of Present illness Narrative Images from the original note were not included. [facility] aRjesh Larry Department of Cardiovascular Medicine SECTION OF CARDIOVASCULAR IMAGING OUTPATIENT VISIT DATE July 10, 2024 OUTPATIENT VISIT TYPE NEW PRIMARY CARE PHYSICIAN: Brianna Yanez [address] [place] [address] REFERRING PHYSICIAN: Janell Gonzáles [address] [facility] [id number] CHIEF COMPLAINT: Cardiac mass HISTORY OF PRESENT ILLNESS: Ms. Kaufman is a 63 year old female from [place], [place] who presents today for evaluation of a cardiac mass. 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 She was recently admitted to [facility] on 03/14/24 after she developed massive hemoptysis during a routine bronchoscopy for mucus plugging and was transferred to [facility] ICU. Patient was admitted on 03/14/2020 for for massive hemoptysis complicating a bronchoscopy procedure, was intubated and in the ICU received TXA, subsequently hemoptysis resolved. She was then extubated and transferred to the floor. During hospitalization she had multiple bronchoscopy with BAL which all came back negative for infection, AFB obtained which came back negative. Sputum culture negative. No fungal or bacterial growth reported. Was treated with course of IV cefepime and doxycycline. On a repeat CTA on 03/23 chest showed right pulmonary embolism with extensive mediastinal and hilar lymphadenopathy likely reactive without evidence of right heart strain. An ECHO was done for chest pain, likely related to cough, and this showed a normal LVEF and normal RV but also a organized mass measuring approximately 1.3 cm x 1.3 cm adjacent to the interatrial septum within the left atrium . She was started on Eliquis. She went home and on 03/27/2024 she had a massive hemoptysis again requiring admission. Her Eliquis was discontinued. She then underwent DEZ to follow up on this cardiac mass on 05/01/24 which demonstrated a homogenous immbobile solid mass noted in the left atrium measuring 1.1x1.2 cm, with minimal calcifications at the edges, attached to the interatrial septum, most likely a tumor versus myxoma. During patient's stay in the hospital patient had MRI of the brain that showed heterogenous non enhancing T1 hypointense lesions throughout the calvarium possibly reflecting metastatic disease from history of breast carcinoma. A follow up PET scan in 04/2024 which reportedly revealed no lesions with FDG uptake suggestive of metastatic cancer. She was told by her oncologist at [facility] she has no metastatic disease at this time. She denies chest pain, shortness of breath, orthopnea, cough, edema, palpitations, PND, lightheadedness or syncope. PAST CARDIAC HISTORY: Recently diagnosed cardiac mass. 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 SOCIAL HISTORY Social History Tobacco Use Smoking status: Never Smokeless tobacco: Never Vaping Use Vaping status: Never Used Substance Use Topics Alcohol use: No Drug use: No FAMILY HISTORY Problem Relation Age of Onset other ( at age 65) Mother other (vascular blood clot) Mother other ( at age 72) Father Blood Clots Father No Known Problems Brother other ( at age 19) Brother Drug abuse Brother No Known Problems Maternal Grandmother No Known Problems Maternal Grandfather No Known Problems Paternal Grandmother No Known Problems Paternal Grandfather other ( at age 35) Son Malig Hyperthermia Son No Known Problems Son No Known Problems Son ALLERGIES: ALLERGIES Allergen Reactions Warfarin Other: See Comments Due to hemorrhaging ALL BLOOD THINNERS MEDICATIONS: alendronate (FOSAMAX) 70 mg tablet Take 70 mg by mouth one time a week. calcium carbonate (OS-TONY 500) 500 mg calcium (1,250 mg) tablet Take 1 tablet by mouth once daily. letrozole (FEMARA) 2.5 mg tablet Take 2.5 mg by mouth once daily. sodium chloride 0.9 % nebulizer solution Use 3 mL via nebulizer as needed. albuterol (PROVENTIL) 2.5 mg /3 mL (0.083 %) nebulizer solution Use 3 mL via nebulizer three times daily as needed. Inhale over 5-15 minutes latanoprost (XALATAN) 0.005 % ophthalmic solution Use 1 Drop in both eyes daily at bedtime. cholecalciferol (VITAMIN D-3) 2,000 unit tablet Take 2,000 Units by mouth once daily. Nebulizer and Compressor For Neb magdi 1 Device as needed. Use as directed. REVIEW OF SYSTEMS: GENERAL: Negative for: Weight loss or gain, Fever or Chills, Weakness and Sleep difficulties. HEENT: Negative for: Headache, Impaired Vision, Glasses, Hearing Impairment, Ringing in Ears, Nosebleeds, Poor dental care, Bleeding Gums, Dentures NECK: Negative for: Swelling, Pain, Stiffness RESPIRATORY: Negative for: Cough, Blood in Sputum, Shortness of breath, Wheezing, Apnea GASTROINTESTINAL: Negative for: Trouble swallowing, Heartburn, Change in bowel habits, Blood in stool, Dark black stools MUSCULOSKELETAL: Negative for: Muscle or joint pain, Stiffness , Joint swelling NEUROLOGIC/PSYCHIATRIC: Negative for: Weakness, Paralysis, Numbness, Tingling, Tremor, Nervousness, Depressed mood, Memory loss SKIN: Negative for: Rashes, Itching HEMATOLOGICAL/LYMPHATIC: Negative for: Easy bruising , Easy bleeding ENDOCRINE: Negative for: Heat or cold intolerance, Excessive sweating, Frequent urination, Frequent thirst PHYSICAL EXAMINATION: BP 138/86 (BP Site: Right Arm, BP Position: Sitting, BP Cuff Size: Regular Adult) Pulse 88 Resp 12 Ht 165.1 cm (5' 5 ) Wt 57.6 kg (127 lb) SpO2 97% BMI 21.13 kg/m General: Well appearing, in no acute distress. Skin: No clubbing, no cyanosis. Eyes: Extra ocular movements intact Oropharynx: Teeth in good repair. Neck: No jugular venous distention, no carotid bruits, carotids have a normal upstroke, no palpable thyromegaly. Lungs: Clear to auscultation bilaterally, no wheezing or rhonchi. Heart: Regular rhythm, PMI not displaced, S1, S2 normal, no S3, no S4, no heaves, no rub and no murmur. Abdomen: Soft, nontender, bowel sounds normal, no palpable organomegaly, no bruits. Extremities: No peripheral edema . Grade 2/4 distal pulses bilaterally. Neuro: Oriented to person, place and time, alert, cooperative, gait coordinated. CARDIOVASCULAR MEDICINE TESTING: Electrocardiogram: 07/11/2024 Echocardiogram: DEZ 05/01/2024 Left Ventricle: The left ventricle is normal size. Global left ventricular systolic function is normal. The EF is 65% visually. No regional wall motion abnormality Right Ventricle: The right ventricle is normal in size. Normal right ventricular systolic function. Left Atrium: A homogenous immbobile solid mass, measuring 1.1x1.2 cm, with minimal calcifications at the edges, was noted in the left atrium, attached to the interatrial septum, most likely a tumor versus Myxoma. Aortic Valve: Trivial aortic valve regurgitation. Tricuspid Valve: Mild tricuspid regurgitation. Last DEZ Result Conclusion No resulted procedures found. Last CT Result Conclusion CT CHEST W IVCON Exam End: 03/24/2024 11:28 AM (Final result) Impression: 1. Acute right upper lobe pulmonary emboli. No evidence for right heart failure. 2. Increasing bibasilar bronchial inspissation. Extensive varicose bronchiectasis. 3. Multiple new pleural-based nodular densities which may be infectious in nature or may relate to pulmonary infarcts. 4. No definite bony metastatic disease. Fairly extensive mediastinal and hilar lymphadenopathy is probably reactive in nature given other findings present. Neoplastic etiology not entirely excluded however. Follow-up recommended 5. The spleen appears prominent incompletely included. This was called by myself by phone to the patient's nurse Ying Noonan at 4:20 PM on 03/24/2024. Difficulty was encountered and reaching the patient's nurse. Nurse is to immediately relay clinical findings to appropriate caregiver. Electronically signed: Norma Harding. MRI Brain 03/22/2024: - No acute infarct, mass effect or midline shift. - Moderate burden of periventricular and to a lesser extent subcortical T2/FLAIR hyperintensities which may be seen in setting of demyelination or chronic microvessel changes. No acutely enhancing intraparenchymal lesions. - Heterogeneous nonenhancing T1 hypointense lesions throughout the calvarium possibly reflecting metastatic disease from history of breast carcinoma. I have personally reviewed the Electrocardiogram, Echocardiogram, and CT Chest Scan. IMPRESSION: Ms. Kaufman is a 63 year old female from [place], [place] who presents today for evaluation of a left atrial mass. 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 She recently had a complicated hospitalization as described above and was found to have a left atrial mass incidentally. 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 She has not had any embolic systemic phenomenon, thankfully, because anticoagulation in her case carries a high-risk of bleeding. The biggest question remains wether her pulmonary function is good enough to make it through open heart surgery safely. PFT's later today should help stratify the degree of pulmonary compromise from her previous infections. PLAN AND RECOMMENDATIONS: Would recommend excision of left atrial mass acknowledging that she might be at higher surgical risk due to known pulmonary disease and recent pulmonary hemorrhage. If needed, this can be postponed to allow for recovery and rehabilitation from recent hospitalization. Case discussed with Dr. Morales. Aram Parisi MD Cardiovascular Medicine Fellow, PGY-6 Date: 07/11/2024, 2:11 PM [facility] STAFF PHYSICIAN NOTE OF PERSONAL INVOLVEMENT IN CARE IMPRESSION: Patient is a 63 year old female with incidental mass in the LA attached to IAS. She has hx of bronchiectasis with recurrent infections and also multiple sclerosis. 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 She has an increased risk of pulmonary complications. Dr Gonzáles is evaluating her case. I have reviewed the documentation obtained and documented by Dr Castle and I have personally performed a face to face assessment of the patient and have personally participated in the mims components of the visit which includes medical decision making.. I have discussed the case and management of the patient's care. STAFF PHYSICIAN: Fransisca Morales MD DATE OF SERVICE: July 11, 2024 TIME OF SERVICE: 3:57 PM documented in this encounter [facility] 07-11-2024 Note [facility] 06-10-2024 Telephone encounter Note Schedule eval- Needs Cardsdenisha Tong Call patient with date and send [employer] to home address Patient accepted evaluation and testing here. Shaneka Mishra RN [facility] 06-10-2024 Miscellaneous Notes Schedule eval- Needs Cards testingRodolfo Call patient with date and send [employer] to home address Patient accepted evaluation and testing here. Shaneka Mishra RN Dr. Gonzáles reviewed file and is offering evaluation. NPM will contact patient to discuss scheduling. Shaneka Mishra RN I contacted patient to ask her to request a more detailed note from her oncologist regarding recent MRI findings of concern for mets ( possible non enhancing T1 hypointense lesions reflecting mets). She has a H/O breast cancer 05/2023 with lumpectomy and radiation. She will reach out or have her Oncologist office contact me. Shaneka Mishra RN Unspecified CTS referral for patient with cardiac mass. Chart to NPM for Dr. Gonzáles to review. Katelynn Gregorio RN LOCAL PATIENT Received Routed [facility] Telephone Encounter from Dr. Block/Minal Calvert Brohman is being referred to First Available/Unspecified by No referring provider defined for this encounter. Phone: N/A Fax: Patient diagnosis/Reason for consult: Cardiac Mass Referral triage process explained: No Patient will receive a call from Cardiac NPM after triage review with surgeon to discuss any additional testing and/or consults that will be scheduled. Pt will then receive a call from our scheduling office for scheduling. Please call pt at [phone]. Patient Registration: Registration complete/updated: yes Insurance card(s) scanned in [facility] with in the past year: Yes: Date: 06/04/24 - INN Pt's Chartio is active. Ok to communicate to pt via Chartio not asked Medical Records: Records in [facility] (internal [facility] records): Yes Imaging in [facility] (internal [facility] records): Yes Care Everywhere - queried yes, downloaded Yes Linked Outside Organizations (list): [facility] OS Records Requested: yes Date: June 04, 2024 Outside Hospital(s) requested records from: [place] Received: yes Uploaded: Yes. Waiting on additional records: No. Missing (list): [facility] Radiology Imaging Requested: yes Date: June 04, 2024 Outside Hospital(s) requested imaging from: [place]. Imaging will be received via Electronic Transfer Received: yes Imaging uploaded: Yes via Electronic Transfer Waiting on additional: No. Missing (list): Additional providers added to Care Teams: Yes Additional Notes/Comments: Referral information complete 06/04/24 Enct routed to: Yes, NPM Cardiac, for Triage Aaliyah Thornton documented in this encounter [facility] 06-10-[address] Gonzáles reviewed file and is offering evaluation. NPM will contact patient to discuss scheduling. Shaneka Mishra RN [facility] 06-07-2024 Telephone encounter Note I contacted patient to ask her to request a more detailed note from her oncologist regarding recent MRI findings of concern for mets ( possible non enhancing T1 hypointense lesions reflecting mets). She has a H/O breast cancer 05/2023 with lumpectomy and radiation. She will reach out or have her Oncologist office contact me. Shaneka Mishra RN [facility] 06-05-2024 Telephone encounter Note Unspecified CTS referral for patient with cardiac mass. Chart to NPM for Dr. Gonzáles to review. Katelynn Gregorio RN [facility] Work Phone: 06-04-2024 Telephone encounter Note INN [facility] 06-04-2024 Miscellaneous Notes INN documented in this encounter [facility] 06-04-2024 Telephone encounter Note LOCAL PATIENT Received Routed Epic Telephone Encounter from Dr. Block/Minal Kaufman is being referred to First Available/Unspecified by No referring provider defined for this encounter. Phone: N/A Fax: Patient diagnosis/Reason for consult: Cardiac Mass Referral triage process explained: No Patient will receive a call from Cardiac NPM after triage review with surgeon to discuss any additional testing and/or consults that will be scheduled. Pt will then receive a call from our scheduling office for scheduling. Please call pt at [phone]. Patient Registration: Registration complete/updated: yes Insurance card(s) scanned in [facility] with in the past year: Yes: Date: 06/04/24 - INN Pt's Chartio is active. Ok to communicate to pt via Chartio not asked Medical Records: Records in Epic (internal [facility] records): Yes Imaging in [employer] (internal [facility] records): Yes Care Everywhere - queried yes, downloaded Yes Linked Outside Organizations (list): [facility] Records Requested: yes Date: June 04, 2024 Outside Hospital(s) requested records from: [place] Received: yes Uploaded: Yes. Waiting on additional records: No. Missing (list): OS Radiology Imaging Requested: yes Date: June 04, 2024 Outside Hospital(s) requested imaging from: [place]. Imaging will be received via Electronic Transfer Received: yes Imaging uploaded: Yes via Electronic Transfer Waiting on additional: No. Missing (list): Additional providers added to Care Teams: Yes Additional Notes/Comments: Referral information complete 06/04/24 Enct routed to: Yes, NPM Cardiac, for Triage Aaliyah Thornton edicine [facility] 06-04-2024 Telephone encounter Note Patient: Emeli Kaufman Date of : 1960 Patient phone number: [phone] Referring Provider for the encounter: Kem Block Requesting Provider: n/a Reason for requesting visit (RFV/signs and symptoms/diagnosis): Cardiac mass (I51.89). Person calling: caregiver: Malgorzata Return call to: self Medical Records/Insurance Card scanned into Epic: Yes Comments: ed[facility] 06-04-2024 Miscellaneous Notes Patient: Emeli Calvert Brohman Date of : 1960 Patient phone number: [phone] Referring Provider for the encounter: Kem Block Requesting Provider: n/a Reason for requesting visit (RFV/signs and symptoms/diagnosis): Cardiac mass (I51.89). Person calling: caregiver: Malgorzata Return call to: self Medical Records/Insurance Card scanned into GoodData: Yes Comments: documented in this encounter [facility] 05-30-2024 Note [facility] 05-16-2024 Note PET scan reviewed. W ill repeat a scan in 3 months. See the patient and probably will need a bronch, and EBUS TBNA Niya Blackwell MD Interventional Pulmonary Medicine Pulmonary and Critical Care Medicine [facility] Physicians [facility] 05-02-2024 Note [facility] 04-30-2024 Note Oncology Progress No te Diagnoses 1. Breast cancer, left (C50.912: Malignant neoplasm of unspecified site of left female breast) 2. Lytic bone lesions on xray (M89.9: Disorder of bone, unspecified) Oncological History/ROS/PE/Assessment and Plan Chief Complaint breast Ca; has a mole that would like to discuss today. Lytic bone lesion found on calvarium and iliac bones while she was admitted that [facility] with bronchiectasis related hemoptysis. HPI: Emeli is a 62-year-old lady with history of multiple sclerosis and bronchiectasis who was referred by Dr. Simon to our oncology clinic to be evaluated and managed for her new left breast invasive lobular carcinoma, ER +90%, [place] +20 to 30%, HER2/elif 1+, and Ki67 was positive 1%. 2 out of 2 sentinel lymph node with positive for macro metastatic disease. Her tumor was discussed at the [facility] tumor board patient is to obtain [...] Lumpectomy with wire-guided localization LYMPH NODE SAMPLING: [place] lymph node(s) SPECIMEN INTEGRITY: multiple specimens (A [...] invasive tumor cells, performed on previous biopsy ([id number]), please refer to previous report for details [...] 17 with Re (more content not included)... [facility] 04-26-2024 Note [facility] 04-18-2024 History of Present illness Narrative Images [...] Review Audit Reviewed by Windy Goff MA (Alkylation Operator) on 04/18/24 at 1329 Medication Order Taking? Sig Documenting Provider Last Dose Status alendronate (Fosamax) 70 MG tablet [id number] TAKE 1 TABLET BY MOUTH EVERY 7 DAYS WITH 6-8 OZ WATER 30 MINUTES BEFORE ANY FOOD DRINK OR MEDICATION Fernanda Mcgovern DO Active calcium carbonate (Os-Tony) 1250 (500 Ca) MG tablet [id number] Take 1 tablet by mouth in the morning. Fernanda Mcgovern DO Active cholecalciferol (Vitamin D-3) 50 MCG (2000 UT) tablet [id number] Take 2,000 Units by mouth in the morning. Historical Provider, Active latanoprost (Xalatan) 0.005 % ophthalmic solution [id number] Administer 1 drop into both eyes at bedtime. Historical ProviderMD Active letrozole (Femara) 2.5 MG chemo tablet [id number] Yes Take 2.5 mg by mouth Daily. Fernanda Mcgovern DO Active levoFLOXacin (Levaquin) 750 MG tablet [id number] Yes Fernanda Mcgovern DO Active metoprolol tartrate (Lopressor) 25 MG tablet [id number] Yes Take 12.5 mg by mouth in the morning and 12.5 mg in the evening. Fernanda Mcgovern, Active Past Medical History: Diagnosis Date Breast cancer ([facility]) 2022 Bronchiectasis ([facility]) delivery delivered History of bronchoscopy 2010 Lung infection 2010 slow growing lung infection Migraine, menstrual, intractable ([facility]) Miscarriage D&C Multiple sclerosis ([facility]) 2006 Pneumonia x2 Past Surgical History: Procedure [...] breast cancer Z12.31 documented in this encounter [facility] 04-09-2024 Hospital Discharge instructions Follow Up Care 04/09/2024 13:00:10 With:Sylvain RICE, BRENNAN Mello, ONC Address: When: Unknown Comments:Continue letrozole, Fosamax, calcium and vitamin D.CBC with differential CMP in 4 months.See pulmonary and may be infectious disease at [place] for evaluation of the multiple lung lesion that is consistent with a chronic infections.Return in 4 months. [facility] 04-09-2024 Note Oncology Progress No te Chief [...] iliac bones while she was admitted that [facility] with bronchiectasis related hemoptysis. HPI: Emeli is a 62-year-old lady with history of multiple sclerosis and bronchiectasis who was referred by Dr. Simon to our oncology clinic to be evaluated and managed for her new left breast invasive lobular carcinoma, ER +90%, [place] +20 to 30%, HER2/elif 1+, and Ki67 was positive 1%. 2 out of 2 sentinel lymph node with positive for macro metastatic disease. Her tumor was discussed at the [facility] tumor board patient is to obtain [...] Lumpectomy with wire-guided localization LYMPH NODE SAMPLING: [place] lymph node(s) SPECIMEN INTEGRITY: multiple specimens (A [...] invasive tumor cells, performed on previous biopsy ([id number]), please refer to previous report for details PROGESTERONE RECEPTOR: 20-30% of invasive tumor cells, performed on previous biopsy ([id number]), please refer to previous report for details Ki-67 INDEX OF INVASIVE TUMOR CELLS: Approximately 1% of invasive tumor cells, performed on previous biopsy ([id number]), please refer to previous report for details [...] to her left (more content not included)... [facility] 04-01-2024 Note [facility] 04-01-2024 Note [facility] 04-01-2024 Hospital Discharge instructions Follow Up Care [...] CT scan and the labs as well. [facility] 03-31-2024 Note [facility] 03-31-2024 [...] Note [facility] 03-26-2024 Note AFB cultures remain negative to date [facility] 03-26-2024 Note Patient is up walkin g halls with spouse without the need for oxygen. Patient has no complaints of shortness of breath. Plan of care is ongoing. [facility] 03-26-2024 Note [facility] [...] Note 9:30-SW sent MRI fin dings to [facility], SW to call. 10:30-SW called and faxed updated documents to [facility]-await call back on accepting. OTM will continue to follow. [facility] 03-25-2024 [facility] [...] cells, abundant acute inflammation, bacteria, and debris. [facility] Comment on above: Performed By: #### L AB13 ####[facility] ([facility])[address] [place] [address] 03-11-2024 Note Oncology Progress No te Chief [...] left breast invasive lobular carcinoma, ER +90%, [place] +20 to 30%, HER2/elif 1+, and Ki67 was positive 1%. 2 out of 2 sentinel lymph node with positive for macro metastatic disease. Her tumor was discussed at the [facility] tumor board patient is to obtain [...] Lumpectomy with wire-guided localization LYMPH NODE SAMPLING: [place] lymph node(s) SPECIMEN INTEGRITY: multiple specimens (A [...] invasive tumor cells, performed on previous biopsy ([id number]), please refer to previous report for details PROGESTERONE RECEPTOR: 20-30% of invasive tumor cells, performed on previous biopsy (), please refer to previous report for details Ki-67 INDEX OF INVASIVE TUMOR CELLS: Approximately 1% of invasive tumor cells, performed on previous biopsy ([id number]), please refer to previous report for details HER2/ELIF STUDIES: 1+ ([facility]), performed on previous biopsy ([id number]), please refer to previous report for details [...] adjuvant treatment. She (more content not included)... [facility] 02-20-2024 Note [facility] 02-20-2024 History of Present illness Narrative Images from the original note were not included. [facility] FOLLOWUP/ESTABLISHED PATIENT VISIT Also followed by: [...] Flowsheet Row Office Visit from 02/20/2024 in [facility] Office Visit from 07/01/2015 in [facility] Office Visit from 05/28/2014 in [facility] Upper Extremity Domain T Score 57 47.9 56.84 Lower Extremity Domain T Score 50 48.92 55.49 Cognitive Function Domain T Score 67 -- -- Positive Affect Well Being T Score -- -- -- Ability To Participate In Social Roles T Score 56 -- -- Satisfaction With Social Roles T Score 62 -- -- Neuro-QoL Symptoms (higher=worse symptoms) Flowsheet [facility] Office Visit from 02/20/2024 in [facility] Office Visit from 07/01/2015 in [facility] Office Visit from 05/28/2014 in [facility] Sleep Domain T Score 32 [...] without mention of status migrainosus, Multiple sclerosis ([facility]), Pulmonary infiltrate, and Sciatica. She has no past medical history of Atrial fibrillation ([facility]), Cancer ([facility]), Chronic obstructive pulmonary disease (COPD) ([facility]), Chronic renal insufficiency, Congestive heart failure ([facility]), Coronary artery disease, Depression, Diabetes ([facility]), Epilepsy ([facility]), Hypertension, Obstructive sleep apnea, Steroid long-term use, Stroke ([facility]), or Substance abuse ([facility]). has a current medication list which includes the following prescription(s): letrozole, latanoprost, cholecalciferol, calcium carbonate, sodium chloride, albuterol, ipratropium bromide, and nebulizer and compressor for neb. EXAM: BP 133/81 Pulse 83 Ht 165.1 cm (5' 5 ) Wt 59 kg (130 lb) BMI 21.63 kg/m MSPT Results Flowsheet [facility] Office Visit from 12/11/2015 in [facility] Office Visit from 07/01/2015 in [facility] Office Visit from 05/28/2014 in [facility] Processing Speed Total Number Correct [...] 5 Biceps 5 5 Triceps 5 5 Dust Collector Attendant 5 5 Dorsal interossei 5 5 Lower [...] Ángel Zendejas MD Neuroimmunology Fellow, PGY 5 [facility] for Multiple Sclerosis Patient seen and evaluated. She has long-standing multiple sclerosis but has been clinically stable for many years, without evidence for active inflammation. Although a brain MRI could be considered now, I think it's unlikely to change our current recommendations to remain off multiple sclerosis disease modifying therapy. Chris Baum MD cc: Brianna Yanez MD, [address] [facility] [address] documented in this encounter [facility] 12-04-2023 Hospital Discharge instructions Follow Up Care 12/04/2023 15:23:41 With:Sylvain RICE, BRENNAN Mello, ONC Address: When: Unknown Comments:Continue taking letrozole or Femara once daily.Continue calcium and vitamin D.Continue taking Fosamax once a week for the osteoporosis.CBC and CMP labs in 6 months and return in 6 months. [facility] 09-04-2023 Hospital Discharge instructions Follow Up Care 09/04/2023 15:35:12 With:Sondra FIELDS, Khanh Fuentes, ONC Address: [facility] [address] [place] [address] [place] [phone] When: Unknown Comments:continue alendronate weekly and letrozole dailydiagnostic mamm in January/Feb (machine operator helper will order)cmp in 3mofollow-up in 3mo with Dr. Boo [facility] 09-04-2023 Hospital Discharge instructions Patient Education 09/04/2023 [...] including vitamins, herbs, eye drops, creams, and fsdd-hqr-htkzggm medicines. Any medical conditions you have. How [...] Total protein: ?Premature infant: 4.2 7.6 g/dL. ?[place]: 4.6 7.4 g/dL. ?Infant: 6 6.7 g/dL. ?Child: 6.2 8 g/dL. Albumin: ?Premature : 3 4.2 g/dL. ?[place]: 3.5 5.4 g/dL. ?: 4.4 5.4 g/dL. [...] provider. Document Revised: 03/26/2021 Document Reviewed: 03/26/2021 [employer] Patient Education 2022 [employer]. Follow Up Care 05/22/2023 14:57:40 With:Sylvain RICE, BRENNAN Mello, ONC Address: When: Unknown Comments:Start Actonel 35 mg once a week with full glass of water in am in upright position, again only once a week.Continue Femara once daily.Calcium 500 mg twice daily.Continue vitamin D 2000 units daily.Labs in 3 months including CBC with differential, CMP, myeloma labs.Return in 3 months. [facility] 05-01-2023 Hospital Discharge instructions Follow Up Care 05/01/2023 10:39:18 With:Neftali Narayan Address: [address] [phone] Business (1) When: Unknown Comments:Proceed with radiation oncology consult and adjuvant radiation once recommended by them.LFTS and Bone density scan now.Start Femara 2.5 mg once daily one week after completing the radiation to the left breast.Start calcium 500 mg one pill twice daily.Start vitamin D 2000 units daily.LFTs 4 weeks after starting Femara and RTC then. [facility] 04-25-2023 Hospital Discharge instructions Follow Up Care 04/25/2023 12:37:04 With:Neftali Narayan Address: [address] [phone] Business (1) When: Unknown Comments:The plan will need to do Oncotype DX scoreReferral to radiation oncology for evaluation for need for adjuvant radiation. Return in 2 to 3 weeks for oncotype DX results [facility] 01-03-2022 Note PROCEDURE: XR FOOT R T MIN 3 VIEWS HISTORY: Cellulitis ; acute second toe pain COMPARISON: None. FINDINGS: BONES:No fracture, acute abnormality, or significant arthropathy. SOFT TISSUES:No visible soft tissue swelling. EFFUSION:None visible. OTHER: Negative. IMPRESSION: 1. No appreciable bone or soft tissue abnormality to account for patient's symptoms. Electronically authenticated by: LUCIEN BONILLA Date: 2022-01-03 17:34 [facility] Evaluation + Plan note Future Appointments Appointment Date:03/01/2023 09:00:00 AM Scheduled Provider: Location:.MAMMOGRAM Appointment Type:MA Needle Loc (FT) Appointment Date:03/01/2023 11:00:00 AM Scheduled Provider: Location:.NUCLEAR MED Appointment Type:NM Lymphoscintigraphy (FT) Appointment Date:03/01/2023 12:00:00 PM Scheduled Provider: Location:[facility] Appointment Type:Surgery FT Appointment Date:03/01/2023 02:00:00 PM Scheduled Provider: Location:.MAMMOGRAM Appointment Type:MA Diagnostic (FT) Appointment Date:03/13/2023 03:00:00 PM Scheduled Provider:Lauro Simon MD Location:[facility] Appointment Type:GS Post Op 15 Future Scheduled TestsMA Breast Needle Loc w/ Guidance, Left 03/01/23NM Lymphoscintigraphy 03/01/23MA Mamm Diag w/CAD if perf and 3D LT 03/01/23 [facility] Evaluation + Plan note Future Appointments Appointment Date:03/22/2023 09:00:00 AM Scheduled Provider: Location:.MAMMOGRAM Appointment Type:MA Needle Loc (FT) Appointment Date:03/22/2023 10:00:00 AM Scheduled Provider: Location:.NUCLEAR MED Appointment Type:NM Lymphoscintigraphy (FT) Appointment Date:03/22/2023 01:00:00 PM Scheduled Provider: Location:[facility] Appointment Type:Surgery FT Appointment Date:03/22/2023 03:00:00 PM Scheduled Provider: Location:.MAMMOGRAM Appointment Type:MA Diagnostic (FT) Appointment Date:04/03/2023 02:00:00 PM Scheduled Provider:Lauro Simon MD Location:[facility] Appointment Type:GS Post Op 15 Future Scheduled TestsMA Breast Needle Loc w/ Guidance, Left 03/22/23NM Lymphoscintigraphy 03/22/23MA Mamm Diag w/CAD if perf and 3D LT 03/22/23 [facility] Evaluation + Plan note Future Appointments Appointment Date:04/03/2023 02:00:00 PM Scheduled Provider:Lauro Simon MD Location:[facility] Appointment Type: Post Op 15 [facility] Evaluation + Plan note Future Appointments Appointment Date:05/22/2023 02:00:00 PM Scheduled Provider: Location:FT.ONCOLOGY Appointment Type:ONC Office Visit 30 (FT) Appointment Date:07/24/2023 03:00:00 PM Scheduled Provider:Lauro Simon MD Location:[facility] Appointment Type:[address] Evaluation + Plan note Future Appointments Appointment Date:07/24/2023 03:00:00 PM Scheduled Provider:Lauro Simon MD Location:[facility] Appointment Type:[place] [address] Appointment Date:08/14/2023 02:30:00 PM Scheduled Provider: Location:.ONCOLOGY Appointment Type:ONC Office Visit 30 (FT) Future Scheduled TestsHepatic Function Panel 08/07/23BD Bone Density DEXA 05/23/23 [facility] Evaluation + Plan note Future Appointments Appointment Date:07/24/2023 03:00:00 PM Scheduled Provider:Lauro Simon MD Location:[facility] Appointment Type:[place] [address] Appointment Date:08/14/2023 02:30:00 PM Scheduled Provider: Location:.ONCOLOGY Appointment Type:ONC Office Visit 30 (FT) Future Scheduled TestsHepatic Function Panel 08/07/23 [facility] Evaluation + Plan note Future Appointments Appointment Date:08/14/2023 02:30:00 PM Scheduled Provider: Location:.ONCOLOGY Appointment Type:ONC Office Visit 30 (FT) Appointment Date:11/06/2023 03:00:00 PM Scheduled Provider:Lauro Simon MD Location:[facility] Appointment Type:[place] [address] Future Scheduled TestsHepatic Function Panel 08/07/23 [facility] Evaluation + Plan note Future Appointments Appointment Date:09/04/2023 02:30:00 PM Scheduled Provider:Neftali Narayan MD Location:FT.ONCOLOGY Appointment Type:ONC Office Visit 30 (FT) Appointment Date:11/06/2023 03:00:00 PM Scheduled Provider:Lauro Simon MD Location:[facility] Appointment Type:[address] Evaluation + Plan note Future Appointments Appointment Date:11/06/2023 03:00:00 PM Scheduled Provider:Lauro Simon MD Location:[facility] Appointment Type:[place] [address] Appointment Date:12/04/2023 02:30:00 PM Scheduled Provider:Neftali Narayan MD Location:FT.ONCOLOGY Appointment Type:ONC Office Visit 30 (FT) Future Scheduled TestsIFE and PE, Serum 12/03/23Immunoglobs. A/E/G/M 12/03/23Free K+L Lt Chains,Qn,S 12/03/23CBC w/ Auto Diff 12/03/23Comprehensive Metabolic Panel 12/03/23 [facility] Evaluation + Plan note Future Appointments Appointment Date:12/04/2023 02:30:00 PM Scheduled Provider:Neftali Narayan MD Location:FT.ONCOLOGY Appointment Type:ONC Office Visit 30 (FT) Appointment Date:02/05/2024 03:00:00 PM Scheduled Provider:Lauro Simon MD Location:[facility] Appointment Type:[place] [address] Future Scheduled TestsIFE and PE, Serum 12/03/23Immunoglobs. A/E/G/M 12/03/23Free K+L Lt Chains,Qn,S 12/03/23CBC w/ Auto Diff 12/03/23Comprehensive Metabolic Panel 12/03/23 [facility] Evaluation + Plan note Future Appointments Appointment Date:12/04/2023 02:30:00 PM Scheduled Provider:Neftali Narayan MD Location:FT.ONCOLOGY Appointment Type:ONC Office Visit 30 (FT) Appointment Date:02/05/2024 03:00:00 PM Scheduled Provider:Lauro Simon MD Location:[facility] Appointment Type:[facility] 15 Diagnostic Tests PendingIFE and PE, Serum 11/20/23Immunoglobs. A/E/G/M 11/20/23Free K+L Lt Chains,Qn,S 11/20/23 [facility] Evaluation + Plan note Future Appointments Appointment Date:02/05/2024 03:00:00 PM Scheduled Provider:Lauro Simon MD Location:[facility] Appointment Type:[facility] Appointment Date:03/04/2024 03:30:00 PM Scheduled Provider:Neftali Narayan MD Location:FT.ONCOLOGY Appointment Type:ONC Office Visit 30 (FT) Future Scheduled TestsComprehensive Metabolic Panel 02/26/24 [facility] Evaluation + Plan note Future Appointments Appointment Date:03/11/2024 03:00:00 PM Scheduled Provider:Neftali Narayan MD Location:FT.ONCOLOGY Appointment Type:ONC Office Visit 30 (FT) Appointment Date:05/27/2024 03:00:00 PM Scheduled Provider:Lauro Simon MD Location:[facility] Appointment Type:[address] General [facility] [place] Evaluation + Plan note Future Appointments Appointment Date:05/27/2024 03:00:00 PM Scheduled Provider:Lauro Simon MD Location:[facility] Appointment Type:[facility] Appointment Date:09/02/2024 03:20:00 PM Scheduled Provider:Neftali Narayan MD Location:FT.ONCOLOGY Appointment Type:ONC Office Visit 20 (FT) Future Scheduled TestsCBC w/ Auto Diff 09/11/24Comprehensive Metabolic Panel 09/11/24 [facility] Evaluation + Plan note Future Appointments Appointment Date:04/30/2024 03:40:00 PM Scheduled Provider:Neftali Narayan MD Location:FT.ONCOLOGY Appointment Type:ONC Office Visit 20 (FT) Appointment Date:05/27/2024 03:00:00 PM Scheduled Provider:Lauro Simon MD Location:[facility] Appointment Type: Established 15 Diagnostic Tests PendingCA 15-3 04/09/24CA 27 29 04/09/24IFE and PE, Serum 04/09/24Free K+L Lt Chains,Qn,S 04/09/24IgE, Quant 04/09/24 Future Scheduled TestsCBC w/ Auto Diff 03/28/24CBC w/ Auto Diff 09/11/24Comprehensive Metabolic Panel 03/28/24Comprehensive Metabolic Panel 09/11/24CT Biopsy, Bone Superficial 04/10/24 [facility] Evaluation + Plan note Future Appointments Appointment Date:04/30/2024 03:40:00 PM Scheduled Provider:Neftali Narayan MD [facility] Type:ONC Office Visit 20 (FT) Appointment Date:05/27/2024 03:00:00 PM Scheduled Provider:Lauro Simon MD Location:[facility] Appointment Type: Established 15 Future Scheduled TestsCBC w/ Auto Diff 03/28/24CBC w/ Auto Diff 09/11/24Comprehensive Metabolic Panel 03/28/24Comprehensive Metabolic Panel 09/11/24CT Biopsy, Bone Superficial 04/10/24 [facility] Evaluation + Plan note Future Appointments Appointment Date:04/19/2024 09:00:00 AM Scheduled Provider: [facility] Type:CT Biopsy (FT) Appointment Date:04/19/2024 09:00:00 AM Scheduled Provider: Location:[facility] Services Appointment Type:Surgery FT Appointment Date:04/30/2024 03:40:00 PM Scheduled Provider:Neftali Narayan MD [facility] Type:ONC Office Visit 20 (FT) Appointment Date:05/27/2024 03:00:00 PM Scheduled Provider:Lauro Simon MD Location:[facility] Appointment Type: Established 15 Future Scheduled TestsCBC w/ Auto Diff 03/28/24CBC w/ Auto Diff 09/11/24Comprehensive Metabolic Panel 03/28/24Comprehensive Metabolic Panel 09/11/24CT Biopsy, Bone Superficial 04/19/24 [facility] Evaluation + Plan note Future Appointments Appointment Date:04/30/2024 03:40:00 PM Scheduled Provider:Neftali Narayan MD Location:FT.ONCOLOGY Appointment Type:ONC Office Visit 20 (FT) Appointment Date:05/27/2024 03:00:00 PM Scheduled Provider:Lauro Simon MD Location:[facility] Appointment Type: Established 15 Future Scheduled TestsCBC w/ Auto Diff 03/28/24CBC w/ Auto Diff 09/11/24Comprehensive Metabolic Panel 03/28/24Comprehensive Metabolic Panel 09/11/24 [facility] Evaluation + Plan note Future Appointments Appointment Date:05/27/2024 03:00:00 PM Scheduled Provider:Lauro Simon MD Location:[facility] Appointment Type: Established 15 Appointment Date:08/27/2024 03:20:00 PM Scheduled Provider:Neftali Narayan MD Location:.[facility] Appointment Type:ONC Office Visit 20 (FT) Future Scheduled TestsCBC w/ Auto Diff 03/28/24CBC w/ Auto Diff 08/31/24CBC w/ Auto Diff 09/11/24Comprehensive Metabolic Panel 03/28/24Comprehensive Metabolic Panel 08/31/24Comprehensive Metabolic Panel 09/11/24 [facility] Evaluation + Plan note Future Appointments Appointment Date:08/27/2024 03:20:00 PM Scheduled Provider:Neftali Narayan MD Location:.[facility]COL[facility]Y Appointment Type:ONC Office Visit 20 (FT) Appointment Date:12/10/2024 02:40:00 PM Scheduled Provider:Lauro Simon MD Location:[facility] Appointment Type: Established 15 Future Scheduled TestsCBC w/ Auto Diff 03/28/24CBC w/ Auto Diff 08/31/24CBC w/ Auto Diff 09/11/24Comprehensive Metabolic Panel 03/28/24Comprehensive Metabolic Panel 08/31/24Comprehensive Metabolic Panel 09/11/24 [facility] General Surgery [place] Evaluation + Plan note Future Appointments Appointment Date:04/09/2024 11:40:00 AM Scheduled Provider:Neftali Narayan MD Location:[facility]COL[facility] Appointment Type:ONC Office Visit 20 (FT) Appointment Date:05/27/2024 03:00:00 PM Scheduled Provider:Lauro Simon MD Location:[facility] Appointment Type: Established 15 Future Scheduled TestsCBC w/ Auto Diff 03/28/24CBC w/ Auto Diff 09/11/24Comprehensive Metabolic Panel 03/28/24Comprehensive Metabolic Panel 09/11/24 [facility] Evaluation + Plan note Future Appointments Appointment Date:08/27/2024 03:20:00 PM Scheduled Provider:Neftali Narayan MD Location:[facility] Appointment Type:ONC Office Visit 20 (FT) Appointment Date:12/10/2024 02:40:00 PM Scheduled Provider:Lauro Simon MD Location:[facility] Appointment Type: Established 15 Future Scheduled TestsCBC w/ Auto Diff 03/28/24CBC w/ Auto Diff 08/31/24Comprehensive Metabolic Panel 03/28/24Comprehensive Metabolic Panel 08/31/24 [facility] Evaluation + Plan note Future Appointments Appointment Date:12/10/2024 02:40:00 PM Scheduled Provider:Lauro Simon MD Location:[facility] Appointment Type: Established 15 Appointment Date:12/31/2024 02:00:00 PM Scheduled Provider:Neftali Narayan MD Location:[facility] Appointment Type:ONC Office Visit 20 (FT) Future Scheduled TestsCA 15-3 01/01/25CA 27 29 01/01/25IFE and PE, Serum 01/01/25Immunoglobs. A/E/G/M 01/01/25Free K+L Lt Chains,Qn,S 01/01/25CBC w/ Auto Diff 03/28/24CBC w/ Auto Diff 08/31/24CBC w/ Auto Diff 01/01/25Comprehensive Metabolic Panel 03/28/24Comprehensive Metabolic Panel 08/31/24Comprehensive Metabolic Panel 01/01/25 [facility] Evaluation + Plan note Future Appointments Appointment Date:12/31/2024 02:00:00 PM Scheduled Provider:Neftali Narayan MD Location:.[facility]COL[facility] Appointment Type:ONC Office Visit 20 (FT) Appointment Date:06/02/2025 03:00:00 PM Scheduled Provider:Lauro Simon MD Location:[facility] Appointment Type:GS Established 15 Future Scheduled TestsCA 15-3 01/01/25CA 27 29 01/01/25IFE and PE, Serum 01/01/25Immunoglobs. A/E/G/M 01/01/25Free K+L Lt Chains,Qn,S 01/01/25CBC w/ Auto Diff 03/28/24CBC w/ Auto Diff 08/31/24CBC w/ Auto Diff 01/01/25Comprehensive Metabolic Panel 03/28/24Comprehensive Metabolic Panel 08/31/24Comprehensive Metabolic Panel 01/01/25 [facility] General Surgery [place] Evaluation + Plan note Future Appointments Appointment Date:12/31/2024 02:00:00 PM Scheduled Provider:Neftali Narayan MD Location:.ONCOLOGY Appointment Type:ONC Office Visit 20 (FT) Appointment Date:06/02/2025 03:00:00 PM Scheduled Provider:Lauro Simon MD Location:[facility] Appointment Type:GS Established 15 Diagnostic Tests PendingCA 15-3 12/23/24CA 27 29 6Free K+L Lt Chains,Qn,S 12/23/24IFE and PE, Serum 12/23/24Immunoglobs. A/E/G/M 12/23/24 Future Scheduled TestsCBC w/ Auto Diff 03/28/24CBC w/ Auto Diff 08/31/24Comprehensive Metabolic Panel 03/28/24Comprehensive Metabolic Panel 08/31/24 [facility] Evaluation + Plan note Future Appointments Appointment Date:06/02/2025 03:00:00 PM Scheduled Provider:Lauro Simon MD Location:[facility] Appointment Type:[facility] 15 Appointment Date:07/01/2025 02:00:00 PM Scheduled Provider:Sylvain RICE, Neftali Ling [facility] Type:ONC Office Visit 20 (FT) Future Scheduled TestsCA 15-3 06/18/25CA 27 29 06/18/25Immunoglobs. A/E/G/M 06/18/25Free K+L Lt Chains,Qn,S 06/18/25CBC w/ Auto Diff 06/18/25Comprehensive Metabolic Panel 06/18/25Protein Electrophoresis 06/18/25BD Bone Density DEXA 05/21/25 [facility] Evaluation note Diagnosis Multiple sclerosis (HCC)- Primary [facility] sclerosis [facility] [place] [facility] Diagnosis Encounter for gynecological examination without abnormal finding Screening for malignant neoplasm of cervix Screening for malignant neoplasm of the cervix Encounter for screening mammogram for breast cancer [facility] [place] [facility]* Diagnosis 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 Unspecified disorders of arteries and arterioles Other specified symptoms and signs involving the circulatory and respiratory systems Benign neoplasm of heart [facility] [place] [facility]* Diagnosis 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 Unspecified disorders of arteries and arterioles Benign neoplasm of heart [facility] [place] [facility]* Diagnosis 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 Unspecified disorders of arteries and arterioles Benign neoplasm of heart [facility] [place] [facility]* Diagnosis Disorder of artery or arteriole (HCC) Unspecified disorders of arteries and arterioles Benign neoplasm of heart documented in this encounter [facility] note* Diagnosis Disorder of artery or arteriole (HCC) Unspecified disorders of arteries and arterioles Benign neoplasm of heart documented in this encounter [facility] note* Diagnosis Disorder of artery or arteriole (HCC) Unspecified disorders of arteries and arterioles Other specified symptoms and signs involving the circulatory and respiratory systems Benign neoplasm of heart documented in this encounter [facility] note* Diagnosis Disorder of artery or arteriole (HCC) Unspecified disorders of arteries and arterioles Benign neoplasm of heart [facility] [place] [facility]* Diagnosis Preoperative respiratory examination- Primary Pre-operative respiratory examination Left atrial mass Bronchiectasis without complication (HCC) Bronchiectasis without acute exacerbation documented in this encounter [facility] note* Diagnosis Left atrial mass- Primary Bronchiectasis without complication (HCC) Bronchiectasis without acute exacerbation documented in this encounter [facility] note* Diagnosis Bronchiectasis without complication (HCC)- Primary Bronchiectasis without acute exacerbation documented in this encounter [facility] note* Diagnosis Pre-operative cardiovascular examination- Primary Other chest pain Benign neoplasm of heart Pre-operative cardiovascular examination Other chest pain Benign neoplasm of heart Pre-operative cardiovascular examination Benign neoplasm of heart documented in this encounter [facility] note* Diagnosis Pre-operative cardiovascular examination Benign neoplasm of heart Pre-operative cardiovascular examination Benign neoplasm of heart [facility] [place] [facility]* Diagnosis Pre-op exam- Primary Preoperative examination, unspecified Pre-op testing Preoperative examination, unspecified Pre-operative cardiovascular examination Benign neoplasm of heart documented [facility] [place] [facility]* Diagnosis Encounter for preoperative anesthesiology assessment for cardiac surgery- Primary Pre-operative cardiovascular examination Benign neoplasm of heart [facility] [place] [facility]* Diagnosis Hx of cardiac cath [Z98.890]- Primary Other postprocedural status Pre-operative cardiovascular examination Benign neoplasm of heart documented in this encounter [facility] note* Diagnosis Pre-operative cardiovascular examination Benign neoplasm of heart Pre-operative cardiovascular examination Benign neoplasm of heart [facility] [place] [facility]* Diagnosis Bronchiectasis without complication (HCC)- Primary Bronchiectasis without acute exacerbation Pre-operative cardiovascular examination Benign neoplasm of heart Pre-operative cardiovascular examination Benign neoplasm of heart documented in this encounter [facility] note* Diagnosis 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 Unspecified disorders of arteries and arterioles Hx of cardiac cath Other postprocedural status Atelectasis Pulmonary collapse Chest pain, unspecified type documented in this encounter [facility] note* Diagnosis 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 Bronchiectasis without complication (HCC) Bronchiectasis without acute exacerbation ABLA (acute blood loss anemia) documented in this encounter [facility] note* Diagnosis Surgery follow-up Follow-up examination, following unspecified surgery documented in this encounter [facility] course Narrative No data available for this section [facility] Discharge instructions No data available for this section [facility] No data available for this section [facility] (narrative)* Diagnostic Procedure Only (Routine) - New Request Specialty Diagnoses / Procedures Referred By Contac t Referred To Contact MOLECULAR & FUNCTIONAL IMAGING Diagnoses Disorder of artery or arteriole (HCC) Other specified symptoms and signs involving the circulatory and respiratory systems Benign neoplasm of heart Procedures NM LUNG VENT / PERF VQ PULMONARY VENTILATION & PERFUSION IMAGING Janell Gonzáles MD [address] [place] [address] Molecular & Functional Imaging [address] [place] [address] Referral ID Status Reason Start Date Expiration Date Visits Requested Visits Authorized [id number] New Request Auto-Generat ed Referral 4 07/10/2025 1 1 * Outpatient Procedure (Routine) - New Request Specialty Diagnoses / Procedures Referred By Contac t Referred To Contact [facility] Diagnoses Disorder of artery or arteriole (HCC) Other specified symptoms and signs involving the circulatory and respiratory systems Benign neoplasm of heart Procedures US CAROTID ARTERIES OBEY VAS LAB DUPLEX SCAN EXTRACRANIAL ART COMPL BI STUDY Janell Gonzáles MD [address] [place] [address] [facility] [place] [address] Referral ID Status Reason Start Date Expiration Date Visits Requested Visits Authorized [id number] New Request Auto-Generat ed Referral 4 06/10/2025 1 1 * Outpatient Procedure (Routine) - New Request Specialty Diagnoses / Procedures Referred By Contac t Referred To Contact [facility] Diagnoses 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 Procedures LUNG DIFFUSION CAPACITY (DLCO) DIFFUSING CAPACITY Janell Gonzáles MD [address] [place] [address] [place] [address] Referral ID Status Reason Start Date Expiration Date Visits Requested Visits Authorized [id number] New Request Auto-Generat ed Referral 4 07/10/2025 1 1 * Outpatient Procedure (Routine) - New Request Specialty Diagnoses / Procedures Referred By Contac t Referred To Contact [facility] [place] Diagnoses 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 Procedures SPIROMETRY BASELINE ONLY SPMTRY W/VC EXPIRATORY LUZMARIA W/WO MXML VOL VNTJ Janell Gonzá[place] [address] [place] [address] [place] [address] Referral ID Status Reason Start Date Expiration Date Visits Requested Visits Authorized [id number] New Request Auto-Generat ed Referral 4 07/10/2025 1 1 * MRI/CT (Routine) - New Request Specialty Diagnoses / Procedures Referred By Contac t Referred To Contact CT IMAGING Diagnoses 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 Procedures CTA CHEST (GATED) W IVCON CT ANGIOGRAPHY CHEST W/CONTRAST/NONCONTRAST Janell Gonzáles MD [address] [place] [address] [facility] [place] [address] Referral ID Status Reason Start Date Expiration Date Visits Requested Visits Authorized [id number] New Request Auto-Generat ed Referral 4 07/10/2025 1 1 * Outpatient Procedure (Routine) - New Request Specialty Diagnoses / Procedures Referred By Contac t Referred To Contact [facility] Diagnoses 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 Procedures ECHO ECHO TTHRC R-T 2D W/WOM-MODE COMPL SPEC&COLR D Janell Gonzáles MD [address] [place] [address] [place] [phone] Referral ID Status Reason Start Date Expiration Date Visits Requested Visits Authorized [id number] New Request Auto-Generat ed Referral 4 06/10/2025 1 1 * Outpatient Procedure (Routine) - New Request Specialty Diagnoses / Procedures Referred By Contac t Referred To Contact [facility] Diagnoses 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 Procedures ECG COMPLETE ECG ROUTINE ECG W/LEAST 12 LDS W/I&R Janell Gonzáles MD [address] [place] [id number] [place] [phone] Referral ID Status Reason Start Date Expiration Date Visits Requested Visits Authorized [id number] New Request Auto-Generat ed Referral 4 06/10/2025 1 1 * Consult, Test, Treat (Routine) - Authorized Specialty Diagnoses / Procedures Referred By Contac t Referred To Contact Cardiac Surg Diagnoses 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 Procedures CARDIOTHORACIC PREOP EVALUATION OFFICE/OUTPATIENT NEW HIGH MDM 60 MINUTES Janell Gonzáles MD [address] [place] [address] Referral ID Status Reason Start Date Expiration Date Visits Requested Visits Authorized [id number] Authorized PCP Requested Referral 4 06/10/2025 1 1 * Consult, Test, Treat (Routine) - Authorized Specialty Diagnoses / Procedures [facility] Referred To Contact Card[facility] Diagnoses 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 Procedures CONSULT TO CARDIOLOGY OFFICE/OUTPATIENT NEW HIGH MDM 60 MINUTES Janell Gonzáles MD [address] [place] [address] Referral ID Status Reason Start Date Expiration Date Visits Requested Visits Authorized [id number] Authorized PCP Requested Referral 4 06/10/2025 1 1 [facility] for referral (narrative)* Diagnostic Procedure Only (Routine) - Closed Specialty Diagnoses / Procedures [facility] Referred To Contact MOLECULAR & FUNCTIONAL IMAGING Diagnoses Disorder of artery or arteriole (HCC) Other specified symptoms and signs involving the circulatory and respiratory systems Benign neoplasm of heart Procedures NM LUNG VENT / PERF VQ PULMONARY VENTILATION & PERFUSION IMAGING Janell Gonzáles MD [address] [place] [address] Molecular & Functional Imaging [address] [place] [address] Referral ID Status Reason Start Date Expiration Date V isits Requested Visits Authorized [id number] Closed Auto-Generate d Referral 06/10/2024 07/10/2025 1 1 [facility] for referral (narrative)* Outpatient Procedure (Routine) - Authorized Specialty Diagnoses / Procedures [facility] Referred To Contact [facility] Diagnoses Pre-operative cardiovascular examination Benign neoplasm of heart Procedures ECG COMPLETE ECG ROUTINE ECG W/LEAST 12 LDS W/I&R Janell Gonzáles MD [address] [place] [address] Heart [facility] Drain [address] [place] [address] Referral ID Status Reason Start Date Expiration Date Visits Requested Visits Authorized [id number] Authorized Auto-Generat ed Referral 08/15/2024 08/15/2025 1 1 * Consult, Test, Treat (Routine) - Authorized Specialty Diagnoses / Procedures Referred By Contac t Referred To Contact Infectious Diseases Diagnoses Pre-operative cardiovascular examination Benign neoplasm of heart Procedures CONSULT TO INFECTIOUS DISEASES OFFICE/OUTPATIENT [facility] 60 MINUTES Janell Gonzáles MD [address] [place] [address] Referral ID Status Reason Start Date Expiration Date Visits Requested Visits Authorized [id number] Authorized PCP Requested Referral 08/15/2024 08/15/2025 1 1 * Consult, Test, Treat (Routine) - Authorized Specialty Diagnoses / Procedures Referred By Earnestine dozier Referred To Contact Cardiac Surg Diagnoses Pre-operative cardiovascular examination Benign neoplasm of heart Procedures CARDIOTHORACIC PREOP EVALUATION OFFICE/OUTPATIENT [facility] 60 MINUTES Janell Gonzáles MD [address] [place] [address] Referral ID Status Reason Start Date Expiration Date Visits Requested Visits Authorized [id number] Authorized PCP Requested Referral 08/15/2024 08/15/2025 [facility] Consult, Test, Treat (Routine) - Closed Specialty Diagnoses / Procedures Referred By Contkamilah t Referred To Contact Cardiac Surg Diagnoses Pre-operative cardiovascular examination Benign neoplasm of heart Procedures CARDIOTHORACIC PREOP EVALUATION OFFICE/OUTPATIENT [facility] 60 MINUTES Janell Gonzáles MD [address] [place] [phone] Phone: tel: fax: Referral ID Status Reason Start Date Expiration Date V isits Requested Visits Authorized [id number] Closed PCP Requested Referral 08/15/2024 08/15/2025 1 1 [facility] Summary Purpose Family History No Family [...] Records FoundNo Advanced Directives Records FoundNo Advanced Directiv es Records FoundNo Advanced Directives Records FoundNo Advanced Directives Records FoundNo AdvancedDirectives Records FoundNo Advanced Directives Records FoundNo Advanced Directives Records Found Reason for Referral Specialty Diagnoses / Procedures Referred By Contac t Referred To Contact Pulmonary and Critical Care Medicine Diagnoses Left atrial mass Bronchiectasis without complication (HCC) Procedures CONSULT TO PULM/CRITICAL CARE OFFICE/OUTPATIENT [facility] 60 MINUTES Janell Gonzáles MD [address] [place] [address] Referral ID Status Reason Start Date Expiration Date V isits Requested Visits Authorized [id number] Closed PCP Requested Referral 07/12/2024 07/12/2025 1 1 Specialty Diagnoses / Procedures Referred By Contac t Referred To Contact CT IMAGING Diagnoses 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 Procedures CTA CHEST (GATED) W IVCON CT ANGIOGRAPHY CHEST W/CONTRAST/NONCONTRAST Janell Gonzáles MD [address] [place] [address] [facility] [place] [address] Referral ID Status Reason Start Date Expiration Date V isits Requested Visits Authorized [id number] Closed Auto-Generate d Referral 06/10/2024 07/10/2025 1 1 Specialty Diagnoses / Procedures Referred By Contac t Referred To Contact [facility] [place] Procedures CARDIOVASCULAR MEDICINE OP FOLLOW UP APPT ORDER Deangelo Morales MD [address] [place] [address] Heart And Vascular Drain [facility] [place] [address] Referral ID Status Reason Start Date Expiration Date Visits Requested Visits Authorized [id number] Authorized PCP Requested Referral 07/11/2025 1 1 Additional Source Comments INFORMATION SOURCE (unrecogn ized section and content) DATE CREATED AUTHOR 01/01/2022 [facility] dical Specialist DATE CREATED AUTHOR AUTHOR'S ORGANIZ ATION 12/23/2022 [facility] DATE CREATED AUTHOR AUTHOR'S ORGANIZ ATION 02/28/2024 [facility] DATE CREATED AUTHOR AUTHOR'S ORGANIZ ATION 04/03/2024 [facility] DATE CREATED AUTHOR AUTHOR'S ORGANIZ ATION 04/12/2024 [facility] DATE CREATED AUTHOR AUTHOR'S ORGANIZ ATION 04/13/2024 [facility] DATE CREATED AUTHOR AUTHOR'S ORGANIZ ATION 04/14/2024 [facility] DATE CREATED AUTHOR AUTHOR'S ORGANIZ ATION 04/16/2024 [facility] DATE CREATED AUTHOR AUTHOR'S ORGANIZ ATION 04/19/2024 [facility] DATE CREATED AUTHOR AUTHOR'S ORGANIZ ATION 04/20/2024 [facility] DATE CREATED AUTHOR AUTHOR'S ORGANIZ ATION 04/21/2024 [facility] DATE CREATED AUTHOR AUTHOR'S ORGANIZ ATION 04/23/2024 [facility] DATE CREATED AUTHOR AUTHOR'S ORGANIZ ATION 05/02/2024 [facility] DATE CREATED AUTHOR AUTHOR'S ORGANIZ ATION 05/29/2024 [facility] DATE CREATED AUTHOR AUTHOR'S ORGANIZ ATION 08/13/2024 [facility] DATE CREATED AUTHOR AUTHOR'S ORGANIZ ATION 08/17/2024 [facility] DATE CREATED AUTHOR AUTHOR'S ORGANIZ ATION 12/12/2024 [facility] DATE CREATED AUTHOR AUTHOR'S ORGANIZ ATION 12/22/2024 [facility] DATE CREATED AUTHOR AUTHOR'S ORGANIZ ATION 12/24/2024 [facility] DATE CREATED AUTHOR AUTHOR'S ORGANIZ ATION 12/28/2024 [facility] DATE CREATED AUTHOR AUTHOR'S ORGANIZ ATION 01/03/2025 [facility] DATE CREATED AUTHOR AUTHOR'S ORGANIZ ATION 01/05/2025 [facility] DATE CREATED AUTHOR AUTHOR'S ORGANIZ ATION 02/09/2025 [facility] Patient Care team informatio n (unrecognized section and content) Heel Scourer Relationship Specialty Start Date End Date Brianna Yanez MD PCP - General Family Medicine 09/09/10 Heel Scourer Relationship Specialty Start Date End Date Brianna Yanez MD [address] [place] [address] PCP - General Family Medicine 12/28/22 Heel Scourer Relationship Specialty Start Date End Date Brianna Yanez MD [address] [place] [address] PCP - General Family Medicine 12/28/22 Heel Scourer Relationship Specialty Start Date End Date Brianna Yanez MD PCP - General Family Medicine 09/09/10 Kem Block MD [address] [place] [address] Referring Cardiology 06/04/24 Unspecified, Cardiac Surgeon - [address] [place] [address] Surgeon Cardiac Surg 06/04/24 Heel Scourer Relationship Specialty Start Date End Date Brianna Yanez MD PCP - General Family Medicine 09/09/10 Kem Block MD [address] [place] [address] Referring Cardiology 06/04/24 Unspecified, Cardiac Surgeon - [address] [place] [address] Surgeon Cardiac Surg 06/04/24 06/04/24 Janell Gonzáles MD [address] [place] [address] Surgeon Cardiac Surg 06/05/24 Heel Scourer Relationship Specialty Start Date End Date Brianna Yanez MD PCP - General Family Medicine 09/09/10 Kem Block MD [address] [place] [address] Referring Cardiology 06/04/24 Janell Gonzáles MD [address] [place] [address] Surgeon Cardiac Surg 06/05/24 Deangelo Morales MD [address] [place] [address] Primary Staff Physician Cardiology 07/11/24 Heel Scourer Relationship Specialty Start Date End Date Brianna Yanez MD PCP - General Family Medicine 09/09/10 Kem Block MD [address] [place] [address] Referring Cardiology 06/04/24 Janell Gonzáles MD [address] [place] [phone] Surgeon Cardiac Surg 06/05/24 Deangelo Morales MD [address] [address] Primary Staff Physician Cardiology 07/11/24 Heel Scourer Relationship Specialty Start Date End Date Brianna Yanez MD PCP - General Family Medicine 09/09/10 Kem Block MD [address] [place] [address] Referring Cardiology 06/04/24 Janell Gonzáles MD [address] [place] [address] Surgeon Cardiac Surg 06/05/24 Deangelo Morales MD [address] [address] Primary Staff Physician Cardiology 07/11/24 Heel Scourer Relationship Specialty Start Date End Date Brianna Yanez MD PCP - General Family Medicine 09/09/10 Kem Block MD [address] [place] [address] Referring Cardiology 06/04/24 Janell Gonzáles MD [address] [place] [address] Surgeon Cardiac Surg 06/05/24 Deangelo Morales MD [address] [address] Primary Staff Physician Cardiology 07/11/24 Heel Scourer Relationship Specialty Start Date End Date Brianna Yanez MD PCP - General Family Medicine 09/09/10 Kem Block MD [address] [place] [address] Referring Cardiology 06/04/24 Janell Gonzáles MD [address] [place] [address] Surgeon Cardiac Surg 06/05/24 Deangelo Morales MD [address] [address] Primary Staff Physician Cardiology 07/11/24 Heel Scourer Relationship Specialty Start Date End Date Brianna Yanez MD PCP - General Family Medicine 09/09/10 Kem Block MD [address] [place] [address] Referring Cardiology 06/04/24 Janell Gonzáles MD [address] [place] [address] Surgeon Cardiac Surg 06/05/24 Deangelo Morales MD [address] [address] Primary Staff Physician Cardiology 07/11/24 Heel Scourer Relationship Specialty Start Date End Date Brianna Yanez MD PCP - General Family Medicine 09/09/10 Kem Block MD [address] [place] [address] Referring Cardiology 06/04/24 Janell Gonzáles MD [address] [place] [address] Surgeon Cardiac Surg 06/05/24 Deangelo Morales MD [address] [address] Primary Staff Physician Cardiology 07/11/24 Heel Scourer Relationship Specialty Start Date End Date Brianna Yanez MD PCP - General Family Medicine 09/09/10 Kem Block MD [address] [place] [address] Referring Cardiology 06/04/24 Janell Gonzáles MD [address] [place] [address] Surgeon Cardiac Surg 06/05/24 Deangelo Morales MD [address] [place] [address] Primary Staff Physician Cardiology 07/11/24 Heel Scourer Relationship Specialty Start Date End Date Brianna Yanez MD PCP - General Family Medicine 09/09/10 Kem Block MD [address] [place] [address] Referring Cardiology 06/04/24 Janell Gonzáles MD [address] [place] [address] Surgeon Cardiac Surg 06/05/24 Deangelo Morales MD [address] [address] Primary Staff Physician Cardiology 07/11/24 Heel Scourer Relationship Specialty Start Date End Date Brianna Yanez MD PCP - General Family Medicine 09/09/10 eKm Block MD [address] [place] [address] Referring Cardiology 06/04/24 Janell Gonzáles MD [address] [place] [address] Surgeon Cardiac Surg 06/05/24 Deangelo Morales MD [address] [phone] Primary Staff Physician Cardiology 07/11/24 Heel Scourer Relationship Specialty Start Date End Date Brianna Yanez MD PCP - General Family Medicine 09/09/10 Kem Block MD [address] [place] [address] Referring Cardiology 06/04/24 Janell Gonzáles MD [address] [place] [address] Surgeon Cardiac Surg 06/05/24 Deangelo Morales MD [address] [id number] Primary Staff Physician Cardiology 07/11/24 Heel Scourer Relationship Specialty Start Date End Date Brianna Yanez MD PCP - General Family Medicine 09/09/10 Kem Block MD [address] [place] [address] Referring Cardiology 06/04/24 Janell Gonzáles MD [address] [place] [address] Surgeon Cardiac Surg 06/05/24 Deangelo Morales MD [address] [address] Primary Staff Physician Cardiology 07/11/24 Heel Scourer Relationship Specialty Start Date End Date Brianna Yanez MD PCP - General Family Medicine 09/09/10 Kem Block MD [address] [place] [address] Referring Cardiology 06/04/24 Janell Gonzáles MD [address] [place] [address] Surgeon Cardiac Surg 06/05/24 Deangelo Morales MD [address] [address] Primary Staff Physician Cardiology 07/11/24 Heel Scourer Relationship Specialty Start Date End Date Brianna Yanez MD PCP - General Family Medicine 09/09/10 Kem Block MD [address] [place] [address] Referring Cardiology 06/04/24 Janell Gonzáles MD [address] [place] [address] Surgeon Cardiac Surg 06/05/24 Deangelo Morales MD [address] [address] Primary Staff Physician Cardiology 07/11/24 Heel Scourer Relationship Specialty Start Date End Date Brianna Yanez MD PCP - General Family Medicine 09/09/10 Kem Block MD [address] [place] [address] Referring Cardiology 06/04/24 Janell Gonzáles MD [address] [place] [address] Surgeon Cardiac Surg 06/05/24 Deangelo Morales MD [address] [address] Primary Staff Physician Cardiology 07/11/24 Heel Scourer Relationship Specialty Start Date End Date Brianna Yanez MD PCP - General Family Medicine 09/09/10 Kem Block MD [address] [place] [address] Referring Cardiology 06/04/24 Janell Gonzáles MD [address] [place] [address] Surgeon Cardiac Surg 06/05/24 Deangelo Morales MD [address] [address] Primary Staff Physician Cardiology 07/11/24 Heel Scourer Relationship Specialty Start Date End Date Brianna Yanez MD PCP - General Family Medicine 09/09/10 Kem Block MD [address] [place] [address] Referring Cardiology 06/04/24 Janell Gonzáles MD [address] [place] [address] Surgeon Cardiac Surg 06/05/24 Deangelo Morales MD [address] [address] Primary Staff Physician Cardiology 07/11/24 Heel Scourer Relationship Specialty Start Date End Date Brianna Yanez MD PCP - General Family Medicine 09/09/10 Kem Block MD [address] [place] [address] Referring Cardiology 06/04/24 Janell Gonzáles MD [address] [place] [address] Surgeon Cardiac Surg 06/05/24 Deangelo Morales MD [address] [place] [id number] Primary Staff Physician Cardiology 07/11/24 Heel Scourer Relationship Specialty Start Date End Date Brianna Yanez MD PCP - General Family Medicine 09/09/10 Kem Block MD [address] [place] [address] Referring Cardiology 06/04/24 Janell Gonzáles MD [facility] [place] [address] Surgeon Cardiac Surg 06/05/24 Deangelo Morales MD [address] [place] [phone] Primary Staff Physician Cardiology 07/11/24 Source Comments (unrecognize d section and content) In the event this informatio n is protected by the Federal Confidentiality of Alcohol and Drug Abuse Patient Records regulations: The Federal rules restrict any use of the information to criminally investigate or prosecute any alcohol or drug abuse patient.[facility] the event this information is protected by the Federal Confidentiality of Alcohol and Drug Abuse Patient Records regulations: The Federal rules restrict any use of the information to criminally investigate or prosecute any alcohol or drug abuse patient.[facility] the event this information is protected by the Federal Confidentiality of Alcohol and Drug Abuse Patient Records regulations: The Federal rules restrict any use of the information to criminally investigate or prosecute any alcohol or drug abuse patient.[facility] the event this information is protected by the Federal Confidentiality of Alcohol and Drug Abuse Patient Records regulations: The Federal rules restrict any use of the information to criminally investigate or prosecute any alcohol or drug abuse patient.[facility]In the event this information is protected by the Federal Confidentiality of Alcohol and Drug Abuse Patient Records regulations: The Federal rules restrict any use of the information to criminally investigate or prosecute any alcohol or drug abuse patient.[facility]In the event this information is protected by the Federal Confidentiality of Alcohol and Drug Abuse Patient Records regulations: The Federal rules restrict any use of the information to criminally investigate or prosecute any alcohol or drug abuse patient.[facility]In the event this information is protected by the Federal Confidentiality of Alcohol and Drug Abuse Patient Records regulations: The Federal rules restrict any use of the information to criminally investigate or prosecute any alcohol or drug abuse patient.[facility]In the event this information is protected by the Federal Confidentiality of Alcohol and Drug Abuse Patient Records regulations: The Federal rules restrict any use of the information to criminally investigate or prosecute any alcohol or drug abuse patient.[facility]In the event this information is protected by the Federal Confidentiality of Alcohol and Drug Abuse Patient Records regulations: The Federal rules restrict any use of the information to criminally investigate or prosecute any alcohol or drug abuse patient.[facility] the event this information is protected by the Federal Confidentiality of Alcohol and Drug Abuse Patient Records regulations: The Federal rules restrict any use of the information to criminally investigate or prosecute any alcohol or drug abuse patient.[facility] HospitalIn the event this information is protected by the Federal Confidentiality of Alcohol and Drug Abuse Patient Records regulations: The Federal rules restrict any use of the information to criminally investigate or prosecute any alcohol or drug abuse patient.[facility]In the event this information is protected by the Federal Confidentiality of Alcohol and Drug Abuse Patient Records regulations: The Federal rules restrict any use of the information to criminally investigate or prosecute any alcohol or drug abuse patient.[facility] HospitalIn the event this information is protected by the Federal Confidentiality of Alcohol and Drug Abuse Patient Records regulations: The Federal rules restrict any use of the information to criminally investigate or prosecute any alcohol or drug abuse patient.[facility]In the event this information is protected by the Federal Confidentiality of Alcohol and Drug Abuse Patient Records regulations: The Federal rules restrict any use of the information to criminally investigate or prosecute any alcohol or drug abuse patient.[facility]In the event this information is protected by the Federal Confidentiality of Alcohol and Drug Abuse Patient Records regulations: The Federal rules restrict any use of the information to criminally investigate or prosecute any alcohol or drug abuse patient.[facility] HospitalIn the event this information is protected by the Federal Confidentiality of Alcohol and Drug Abuse Patient Records regulations: The Federal rules restrict any use of the information to criminally investigate or prosecute any alcohol or drug abuse patient.[facility] HospitalIn the event this information is protected by the Federal Confidentiality of Alcohol and Drug Abuse Patient Records regulations: The Federal rules restrict any use of the information to criminally investigate or prosecute any alcohol or drug abuse patient.[facility] HospitalIn the event this information is protected by the Federal Confidentiality of Alcohol and Drug Abuse Patient Records regulations: The Federal rules restrict any use of the information to criminally investigate or prosecute any alcohol or drug abuse patient.[facility] HospitalIn the event this information is protected by the Federal Confidentiality of Alcohol and Drug Abuse Patient Records regulations: The Federal rules restrict any use of the information to criminally investigate or prosecute any alcohol or drug abuse patient.[facility] HospitalIn the event this information is protected by the Federal Confidentiality of Alcohol and Drug Abuse Patient Records regulations: The Federal rules restrict any use of the information to criminally investigate or prosecute any alcohol or drug abuse patient.[facility] HospitalIn the event this information is protected by the Federal Confidentiality of Alcohol and Drug Abuse Patient Records regulations: The Federal rules restrict any use of the information to criminally investigate or prosecute any alcohol or drug abuse patient.[facility] HospitalIn the event this information is protected by the Federal Confidentiality of Alcohol and Drug Abuse Patient Records regulations: The Federal rules restrict any use of the information to criminally investigate or prosecute any alcohol or drug abuse patient.[facility] HospitalIn the event this information is protected by the Federal Confidentiality of Alcohol and Drug Abuse Patient Records regulations: The Federal rules restrict any use of the information to criminally investigate or prosecute any alcohol or drug abuse patient.[facility] HospitalIn the event this information is protected by the Federal Confidentiality of Alcohol and Drug Abuse Patient Records regulations: The Federal rules restrict any use of the information to criminally investigate or prosecute any alcohol or drug abuse patient.[facility] HospitalIn the event this information is protected by the Federal Confidentiality of Alcohol and Drug Abuse Patient Records regulations: The Federal rules restrict any use of the information to criminally investigate or prosecute any alcohol or drug abuse patient.[facility] HospitalIn the event this information is protected by the Federal Confidentiality of Alcohol and Drug Abuse Patient Records regulations: The Federal rules restrict any use of the information to criminally investigate or prosecute any alcohol or drug abuse patient.[facility] HospitalIn the event this information is protected by the Federal Confidentiality of Alcohol and Drug Abuse Patient Records regulations: The Federal rules restrict any use of the information to criminally investigate or prosecute any alcohol or drug abuse patient.[facility] HospitalIn the event this information is protected by the Federal Confidentiality of Alcohol and Drug Abuse Patient Records regulations: The Federal rules restrict any use of the information to criminally investigate or prosecute any alcohol or drug abuse patient.[facility] Reason for Visit (unrecogniz ed section and content) Reason Comments New Patient Specialty Diagnoses / Procedures Referred By Contac t Referred To Contact Infectious Diseases Diagnoses Pre-operative cardiovascular examination Benign neoplasm of heart Procedures CONSULT TO INFECTIOUS DISEASES OFFICE/OUTPATIENT NEW HIGH MDM 60 MINUTES Janell Gonzáles MD [address] [facility] [place] [address] Phone: tel: fax: Referral ID Status Reason Start Date Expiration Date V isits Requested Visits Authorized [id number] Closed PCP Requested Referral 08/15/2024 08/15/2025 1 1 Reason Comments New Patient Evaluation Reason Comments Gynecologic Exam Denies concerns, Den ies bowel/bladder/breast concerns. Denies vaginal bleeding/spotting. 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 Procedures LUNG DIFFUSION CAPACITY (DLCO) DIFFUSING CAPACITY Janell Gonzáles MD [address] [place] [address] [place] [address] Referral ID Status Reason Start Date Expiration Date V isits Requested Visits Authorized [id number] Closed Auto-Generate d Referral 06/10/2024 07/10/2025 1 1 Specialty Diagnoses / Procedures Referred By Contac t Referred To Contact RESPIRATORY COLTS NECK Diagnoses 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 Procedures SPIROMETRY BASELINE ONLY SPMTRY W/VC EXPIRATORY LUZMARIA W/WO MXML VOL VNTJ Janell Gonzáles MD [address] [place] [address] [place] [address] Referral ID Status Reason Start Date Expiration Date V isits Requested Visits Authorized [id number] Closed Auto-Generate d Referral 06/10/2024 07/10/2025 1 1 Specialty Diagnoses / Procedures Referred By Contac t Referred To Contact Cardiology Diagnoses 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 Procedures CONSULT TO CARDIOLOGY OFFICE/OUTPATIENT NEW HIGH MDM 60 MINUTES Janell Gonzáles MD [address] [place] [address] Referral ID Status Reason Start Date Expiration Date V isits Requested Visits Authorized [id number] Closed PCP Requested Referral 06/10/2024 06/10/2025 [address] Specialty Diagnoses / Procedures [facility] CT IM[facility] Diagnoses 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 Procedures CTA CHEST (GATED) W IVCON CT ANGIOGRAPHY CHEST W/CONTRAST/NONCONTRAST Jaenll Gonzáles MD [address] [place] [address] Ct [facility] [place] [address] Referral ID Status Reason Start Date Expiration Date V isits Requested Visits Authorized [id number] Closed Auto-Generate d Referral 06/10/2024 07/10/2025 1 1 Reason Comments Radiology [place] Specialty Diagnoses / Procedures [facility] Referred To Contact MOLECULAR & FUNCTIONAL IMAGING Diagnoses Disorder of artery or arteriole (HCC) Other specified symptoms and signs involving the circulatory and respiratory systems Benign neoplasm of heart Procedures NM LUNG VENT / PERF VQ PULMONARY VENTILATION & PERFUSION IMAGING Janell Gonzáles MD [address] [place] [address] Molecular & Functional Imaging [address] [place] [address] Referral ID Status Reason Start Date Expiration Date V isits Requested Visits Authorized [id number] Closed Auto-Generate d Referral 06/10/2024 07/10/2025 1 1 Specialty Diagnoses / Procedures [facility] Referred To Contact Cardiac Surg Diagnoses 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 Procedures CARDIOTHORACIC PREOP EVALUATION OFFICE/OUTPATIENT [facility] 60 MINUTES Janell Gonzá[place] [address] [place] [address] Referral ID Status Reason Start Date Expiration Date V isits Requested Visits Authorized [id number] Closed PCP Requested Referral 06/10/2024 06/10/2025 1 1 Specialty Diagnoses / Procedures [facility] Referred To Contact Pulmonary and Critical Care Medicine Diagnoses Left atrial mass Bronchiectasis without complication (HCC) Procedures CONSULT TO PULM/CRITICAL CARE OFFICE/OUTPATIENT [facility] 60 MINUTES Janell Gonzáles MD [address] [place] [address] Referral ID Status Reason Start Date Expiration Date V isits Requested Visits Authorized [id number] Closed PCP Requested Referral 07/12/2024 07/12/2025 1 1 Reason Comments Referral Information Follow Up Reason Comments Referral Information Cardiac Preop Checklist Reason Comments Patient Education Reason Comments Radio Main J1 Reason Comments Pre-Op Exam Reason Comments Patient Update Reason Comments 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 [facility] [employer] [facility]. provides no warranty or guarantee of the accuracy or completeness of information in this document.
== END 2025-02-26 12:48 | disposition home or self-care (01) ==
LOC: LAB 12:48
PROVIDERS: PCP Family Medicine; Visit Provider Family Medicine
DX: J18.9 Pneumonia, unspecified organism (principal)
CPT/HCPCS: 36415; 85025; 86480

== ENCOUNTER 2025-04-14 09:22 | Outpatient (RCR) | payer MEDICARE, OTHER, SELFPAY ==
--- OUTSIDE RECORDS SUMMARY | 2025-04-02 14:00 | XMS_ITS ---
Author Organization [facility] [place] Address [address] [place] [address] Care Team Providers Care Part Time Name Role Phone Joselito Wagner Primary Care Provider REASON FOR VISIT sputum Encounters Encounter Location Date Provider Diagnosis [facility] [address] [facility] [place] [address] 04/02/2025 Joselito Wagner Productive cough R05 .8 Assessments Encounter Date Diagnosis (ICD Code) Assessment Notes Treatment Notes Treatment Clinical Notes Section Notes 04/02/2025 Productive cough (ICD-10 - R05.8) Plan Of Treatment Pending Test Test Name Order Date Sputum Culture 04/02/2025 Progress Notes * Emeli KAUFMAN MDOB:1960 (64 yo F)Acc No.[id number]:04/02/2025 Patient: Karon Emeli RUIZ :1960 A ge:64 Y S ex:Female [address] [facility] [address] Subjective: * Chief Complaints: * S putum * Medical History: * Surgical History: * Hospitalization/Major Diagno stic Procedure: * Medications: Objective: * Vitals: * Physical Examination: Assessment: * Assessment: 1. P roductive cough - R05.8 (Primary) Plan: * Treatment: * Procedure Codes: * true * Date: Generated for Printi ng/Faxing/eTransmitting on: 0 04/09/2025 03:03 PM EDT
--- OUTSIDE RECORDS SUMMARY | 2025-04-09 15:03 | XMS_ITS | Patient Health Record ---
Author Organization [facility] [place] Address [address] [place] [address] Care Team Providers Care Car Pincher Name Role Phone Joselito Yanez Primary Care Provider Stevie Fajardo Unavailable [phone] Allergies No Known Allergies Results Component Value Reference Range Notes BNP Reviewed date:04/16/2024 04:08:53 PM Interpretation: Performing Lab: Notes/Report: [facility] , NT Pro B Type Natriuretic Pept 355.0 <=900.0 pg/mL Performing Lab: see note - [facility] LB CBC AUTO DIFF Reviewed date:04/16/2024 04:08:53 PM Interpretation: Performing Lab: Notes/Report: [facility] , White Blood Count 8.1 4.0-11.0 10 [...] 9.3 9.5-13.5 fL Performing Lab: see note - [facility] LB PROF 14(COMP METB) Reviewed date:04/16/2024 04:08:53 PM Interpretation: Performing Lab: Notes/Report: [facility] , Sodium 132 136-145 mmol/L Potassium 4.0 [...] 0.5 Performing Lab: see note ML - [facility] LB XR ribs LT 2V Reviewed date:06/27/2024 06:45:51 PM Interpretation: Performing Lab: Notes/Report: Source Facility: [facility] [place] [address] [place] [address] XRay Report Signed Patient: EMELI KAUFMAN MR#: [id number] : 1960 Acct:[id number] Age/Sex: 63 / F ADM Date: 06/26/24 Loc: RAD Attending Dr: Brianna Yanez M.D. Ordering Physician: Brianna Yanez M.D. Date of Service: 06/26/24 Procedure(s): XR ribs LT 2V Accession Number(s): [id number] cc: Brianna Yanez M.D. [place] [address] Patient Name: EMELI KAUFMAN MRN: [id number] date: 1960 Sex: F Assigned Patient Location: RAD Current Patient Location: Accession/Order Number: [id number] Exam Date: 06/26/2024 16:02 Report Date: 06/27/2024 07:27 At the request of: BRIANNA YANEZ Procedure: XR ribs LT 2V EXAMINATION: XR [...] M.D. Signed By: 06/27/24729 DD/ 6 TD/TT: Drying Oven Attendant: Manual Differential Reviewed date:04/16/2024 04:08:53 PM Interpretation: Performing Lab: Notes/Report: [facility] , Segmented Neutrophils % Manual 82.0 43.0-75.0 Lymphocytes Percent Manual 8.0 20.5-60.0 % Monocytes Percent Manual 10.0 1.7-12.0 % Eosinophils Percent Manual 0.0 0.9-7.0 % Basophils Percent Manual 0.0 0.2-2.0 % Segmented Neut Absolute Manual 6.64 1.4-6.5 10 3/uL Lymphocytes Absolute Manual 0.64 1.20-3.80 10 3/uL Monocytes Absolute Manual 0.81 0.30-0.80 10 3/ uL Eosinophils Absolute Manual 0.00 0.00-0.70 10 3/uL Basophils Abs Manual 0.00 0.00-0.10 10 3/uL Performing Lab: see note ML - [facility] LB Troponin I High Sensitivity Reviewed date:04/16/2024 04:08:53 PM Interpretation: Performing Lab: Notes/Report: [facility] , Troponin I High Sensitivity 4.4 4.0-51.3 pg/mL CUT-OFF POINTS HAVE BEEN ESTABLISHED BASED ON THE FOURTH UNIVERSAL DEFINITION OF MYOCARDIAL INFARCTION. THE UPPER REFERENCE LIMIT (URL) OF TROPONIN, DEFINED THE 99TH PERCENTILE OF cTnI DISTRIBUTION IN A REFERENCE POPULATION, HAS BEEN CONFIRMED THE DECISION THRESHOLD FOR KS DIAGNOSIS. 99TH PERCENTILE = 51.4 PG/ML NOTE: HIGH-SENSITIVITY TROPONIN ASSAY IS NOT INTENDED TO BE USED IN ISOLATION BUT SHOULD BE INTERPRETED IN CONJUNCTION WITH OTHER DIAGNOSTIC AND CLINICAL INFORMATION. Performing Lab: see note [facility] LB White Blood Cells Reviewed date:04/28/2024 07:03:23 [...] LC - [facility] LB Result 1 Reviewed date:04/28/2024 07:03:23 PM Interpretation: Performing Lab: Notes/Report: [facility] , Result 1 See Below For Report Result 1 Moderate number of gram positive rods. Performing Lab: see note LC - [facility] LB Result 2 Reviewed date:04/28/2024 07:03:23 PM Interpretation: Performing Lab: Notes/Report: [facility] , Result 2 See Below For Report Result 2 FOREIGN EXCHANGE DEALER Performing Lab: see note LC - [facility] LB Result 3 Reviewed date:04/28/2024 07:03:23 PM Interpretation: Performing Lab: Notes/Report: [facility] , Result 3 See Below For Report Result 3 [employer]EIGN EXCHANGE DEALER Performing Lab: see note LC - [facility] LB Result 4 Reviewed date:04/28/2024 07:03:23 PM Interpretation: Performing Lab: Notes/Report: [facility] , Result 4 See Below For Report Result 4 FOREIGN EXCHANGE DEALER Performing Lab: see note LC - [facility] [...] Culture WILL FOLLOW Lower Respiratory Culture Routine respir atory mary Lower Respiratory Culture WILL FOLLOW Lower Respiratory Culture Performed at: - [facility] [place] Lower Respiratory Culture WILL FOLLOW Lower Respiratory Culture [address], [place], [place] [id number] Lower Respiratory Culture WILL FOLLOW Lower Respiratory Culture Gambling Box Person: Shiva Emanuel PhD, Phone: [phone] Lower Respiratory Culture WILL FOLLOW Performing Lab: see note LC - [facility] LB SEE REPORT - Sr. Director Id information not found for OBX-specific moving picture producer legend CA echo doppler complete Reviewed date:04/24/2024 08:38:58 PM Interpretation: Performing Lab: Notes/Report: Source Facility: [place] [address] Cardiology Report Signed Patient: EMELI KAUFMAN MR#: [id number] : 1960 Acct:[id number] Age/Sex: 63 / F ADM Date: 04/24/24 Loc: CARD Attending Dr: Brianna Yanez M.D. Ordering Physician: Brianna Yanez M.D. Date of Service: 04/24/24 Procedure(s): CA echo doppler complete Accession Number(s): [id number] cc: Brianna Yanez M.D. Patient Name: EMELI KAUFMAN MR#: [id number] : 1960 Exam Date: 04/24/2024 Ordering Doctor: DR Brianna Yanez . ECHOCARDIOGRAM REPORT PROCEDURE: CA ECHO DOPPLER [...] M.D. Signed By: 04/24/241616 DD/ 15 TD/TT: Drying Oven Attendant: GITA shi 2V Reviewed date:06/27/2024 06:45:51 PM Interpretation: Performing Lab: Notes/Report: Source Facility: [facility] [place] [address] [place] [address] XRay Report Signed Patient: EMELI KAUFMAN MR#: [id number] : 1960 Acct:[id number] Age/Sex: 63 / F ADM Date: 06/26/24 Loc: RAD Attending Dr: Brianna Yanez M.D. Ordering Physician: Brianna Yanez M.D. Date of Service: 06/26/24 Procedure(s): XR chest 2V Accession Number(s): [id number] cc: Brianna Yanez M.D. The [address] [address] Patient Name: EMELI KAUFMAN MRN: [id number] date: 1960 Sex: F Assigned Patient Location: [facility] Current Patient Location: Accession/Order Number: [id number] Exam Date: 06/26/2024 16:02 Report Date: 06/27/2024 07:27 At the request of: BRIANNA YANEZ Procedure: XR chest 2V EXAMINATION: XR chest [...] Dictated By: Ayaka Wu M.D. Signed By: 06/27/2430 DD/ 6 TD/TT: Drying Oven Attendant: LAB TESTING Reviewed date:04/02/2025 06:01:15 PM Interpretation: Performing Lab: Notes/Report: DAY 1 [id number] Acid-fast (Mycobacteria) Smear and Culture With Reflex to Id [facility] , Miscellaneous Test COMMENT . Test Ordered: [id number] Acid Fast Smear+Culture W/Rflx AFB Specimen Processing Note: CB Concentration Reference Range: . Acid Fast Smear Negative CB Reference Range: . Acid Fast Culture Positive [A ] CB Reference Range: . Acid-fast bacilli have been detected in culture at 4 weeks. Further identification to follow. M tuberculosis complex Negative BN Reference Range: . This test was developed and its performance characteristics determined by [facility]. It has not been cleared or approved by the Food and Drug Administration. M avium complex Negative BN Reference Range: . This test was developed and its performance characteristics determined by [facility]. It has not been cleared or approved by the Food and Drug Administration. Reflex ID by MALDI See Reflex BN Reference Range: . Organism ID by MALDI BN Reference Range: . Test not performed. Inadequate growth of organism on culture or testing medium. Other: FOREIGN EXCHANGE DEALER NOLAB Reference Range: . Susceptibility Testing BN Reference Range: . Test not performed. Organism not recovered in culture at [facility]. Therefore, susceptibility testing not performed. Performed at: [address] [id number] Gambling Box Person: Shiva Emanuel PhD, Phone: [phone] Performed at: [address] [id number] Gambling Box Person: Ramonita Valdez MD, Phone: [phone] Performing Lab: see note [facility] LB LAB TESTING Reviewed date:03/09/2025 11:14:03 AM Interpretation: Performing Lab: Notes/Report: DAY 2 [id number] Acid-fast (Mycobacteria) Smear and Culture With Reflex to Id [facility] , Miscellaneous Test COMMENT . Test Ordered: [id number] Acid Fast Smear+Culture W/Rflx AFB Specimen Processing Note: CB Concentration Reference Range: . Acid Fast Smear Negative CB Reference Range: . Acid Fast Culture Negative CB Reference Range: . No acid fast bacilli isolated after 6 weeks. Performed at: [address] [id number] Gambling Box Person: Shiva Emanuel PhD, Phone: [phone] Performing Lab: see note [facility] LB LAB TESTING Reviewed date:03/09/2025 11:14:03 AM Interpretation: Performing Lab: Notes/Report: DAY 3 [id number] Acid-fast (Mycobacteria) Smear and Culture With Reflex to Id [facility] , Miscellaneous Test COMMENT . Test Ordered: [id number] Acid Fast Smear+Culture W/Rflx AFB Specimen Processing Note: CB Concentration Reference Range: . Acid Fast Smear Negative CB Reference Range: . Acid Fast Culture Negative CB Reference Range: . No acid fast bacilli isolated after 6 weeks. Performed at: [address] [id number] Gambling Box Person: Shiva Emanuel PhD, Phone: [phone] Performing Lab: see note LC - [facility] LB CBC AUTO DIFF Reviewed date:02/26/2025 01:40:44 PM Interpretation: Performing Lab: Notes/Report: [facility] , White Blood Count 7.5 4.0-11.0 10 3/uL Red Blood Count 4.21 4.20-5.40 10 6/uL Hemoglobin 12.2 12.0-16.0 g/dL Hematocrit 37.4 36.0-48.0 % Mean Corpuscular Volume 88.8 81.0-99.0 fL Mean Corpuscular Hemoglobin 29.0 26.7-34.0 pg Mean Corpuscular HGB Conc 32.6 29.9-35.2 g/dL Red Cell Distribution Width 16.0 11.0-15.0 % Platelet Count 263 150-450 10 3/uL Mean Platelet Volume 9.4 9.5-13.5 fL Neutrophils Percent Auto 74.3 43.0-75.0 % Lymphocytes Percent Auto 14.2 20.5-60.0 % Monocytes Percent Auto 10.0 1.7-12.0 % Eosinophils Percent Auto 0.7 0.9-7.0 % Basophils Percent Auto 0.5 0.2-2.0 % Immature Granulocytes Pct Auto 0.3 0.0-0.5 % Neutrophils Absolute Auto 5.6 1.4-6.5 10 3/uL Lymphocytes Absolute Auto 1.1 1.2-3.8 10 3/uL Monocytes Absolute Auto 0.8 0.3-0.8 10 3/uL Eosinophils Absolute Auto 0.1 0.0-0.7 10 3/uL Basophils Absolute Auto 0.0 0.0-0.1 10 3/uL Immature Granulocytes Abs Auto 0.02 0.00-0.03 10 3/uL Performing Lab: see note ML - [facility] LB QuantiFERON-TB Gold Plus Reviewed date:03/02/2025 01:28:47 PM Interpretation: Performing Lab: Notes/Report: [facility] , QuantiFERON Incubation . Incubation performed. Reference Range: . QuantiFERON-TB Gold Plus Negative Negative No response to M tuberculosis antigens detected. Infection with M tuberculosis is unlikely, but high risk individuals should be considered for additional testing (ATS/IDSA/CDC Clinical Practice Guidelines, 2017). The reference range is an Antigen minus Nil result of <0.35 IU/mL. Chemiluminescence immunoassay methodology Performed at: [address] [id number] Gambling Box Person: Shiva Emanuel PhD, Phone: [phone] QuantiFERON Criteria Comment . QuantiFERON-TB Gold Plus is a qualitative indirect test for M tuberculosis infection (including disease) and is intended for use in conjunction with risk assessment, radiography, and other medical and diagnostic evaluations. The QuantiFERON-TB Gold Plus result is determined by subtracting the Nil value from either TB antigen (Ag) value. The Mitogen tube serves as a control for the test. QuantiFERON TB1 Ag Value 0.01 . IU/mL QuantiFERON TB2 Ag Value 0.01 . IU/mL QuantiFERON Nil Value 0.01 . IU/mL QuantiFERON Mitogen Value 7.54 . IU/mL Performing Lab: see note - [facility] LB Lower Respiratory Culture Reviewed date:01/26/2025 04:05:59 PM Interpretation: Performing Lab: Notes/Report: [facility] , Lower Respiratory Culture See Below For Report Lower Respiratory Culture WILL FOLLOW Lower Respiratory Culture Routine respir atory mary Lower Respiratory Culture WILL FOLLOW Lower Respiratory Culture Performed at: [facility] Lower Respiratory Culture WILL FOLLOW Lower Respiratory Culture [address] [place] [phone] Lower Respiratory Culture WILL FOLLOW Lower Respiratory Culture Gambling Box Person: Shiva Emanuel PhD, Phone: [phone] Lower Respiratory Culture WILL FOLLOW Performing Lab: see note - [facility] LB SEE REPORT - Sr. Director Id information not found for OBX-specific moving picture producer legend Gram Stain Evaluation Reviewed date:01/26/2025 04:05:59 PM Interpretation: Performing Lab: Notes/Report: [facility] , Gram Stain Evaluation See Below For Report Gram Stain Evaluation This specimen is of good quality and is acceptable for routine Gram Stain Evaluation bacterial culture. Gram Stain Evaluation This specimen is of good quality and is acceptable for routine Performing Lab: see note - [facility] LB Result 4 Reviewed date:01/26/2025 04:05:59 PM Interpretation: Performing Lab: Notes/Report: [facility] , Result 4 See Below For Report Result 4 FOREIGN EXCHANGE DEALER Performing Lab: see note - [facility] LB Result 3 Reviewed date:01/26/2025 [...] - [facility] LB White Blood Cells Reviewed date:01/26/2025 04:05:59 PM Interpretation: Performing Lab: Notes/Report: [facility] , White Blood Cells See Below For Report White Blood Cells White Blood Cells Many White Blood Cells Performing Lab: see note LC - [facility] LB Lower Respiratory Culture Reviewed date:06/13/2024 06:25:07 PM Interpretation: Performing Lab: Notes/Report: [facility] , Lower Respiratory Culture See Below For Report Lower Respiratory Culture WILL FOLLOW Lower Respiratory Culture Specimen has b een received and testing has been initiated. Lower Respiratory Culture WILL FOLLOW Lower Respiratory Culture Routine respir atory mary Lower Respiratory Culture WILL FOLLOW Lower Respiratory Culture Performed at: [facility] Lower Respiratory Culture WILL FOLLOW Lower Respiratory Culture [address], [place], [place] [id number] Lower Respiratory Culture WILL FOLLOW Lower Respiratory Culture Gambling Box Person: Shiva Emanuel PhD, Phone: [phone] Lower Respiratory Culture WILL FOLLOW Performing Lab: see note LC - [facility] LB SEE REPORT - Sr. Director Id information not found for OBX-specific moving picture producer legend Gram Stain Evaluation Reviewed date:06/13/2024 [...] 4 See Below For Report Result 4 FOREIGN EXCHANGE DEALER Performing Lab: see note LC - [facility] LB Result 3 Reviewed date:06/13/2024 06:25:07 PM Interpretation: Performing Lab: Notes/Report: [facility] , Result 3 See Below For Report Result 3 FOREIGN EXCHANGE DEALER Performing Lab: see note LC - [facility] [...] Lab: see note LC - [facility] LB Reason For Referral Diagnosis 1 Mass in chest (R22.2 ) Referral Organization [facility] Referring Provider First Name Joselito Referring Provider Last Name Bernard Referring Provider Speciality [facility] maureen Referred Provider [facility] Specialty Card[facility] Referral Priority Routine Medications Medication SIG (Take, Route, Frequency, Duration) Notes Start Date End Date Status Sodium Chloride 0.9 % 3mL Inhalation TID ; Duration: 30 days Active Vitamin D 50 MCG (1999) 1 capsule Orally Once a day Active Compression Stocking Thigh 30-40mmHg - daily; Duration: 365 days 04/16/2024 Not-Taking Latanoprost 0.005 % 1 drop into affected eye in the evening Ophthalmic Once a day Active Letrozole 2.5 MG 1 tablet Orally Once a day; Duration: 90 days Active Metoprolol Tartrate 25 MG 1/2 tablet wit h food Orally Twice a day 10/03/2024 Active Albuterol Sulfate (2.5 MG/3ML) 0.083% 3 mL as needed Inhalation every 6 hours 10/03/2024 Active Alendronate Sodium 70 MG 1 tablet 30 min utes before the first food, beverage or medicine of the day with plain water Oral once weekly; Duration: 84 days Active Calcium Carbonate 1250 (500 Ca) MG 1 tablet with food Orally once daily 10/03/2024 Active [facility] Spectravite Women - TAKE 1 TABLET DA JONI WITH BREAKFAST Oral; Duration: 30 Days Active Immunizations Vaccine Route Administration Date Status Comme nts Arexvy Unknown 06/30/2023 Administered Flu, Fluad (47378) 65 yrs and older, single-dose syringe (8364-1847) IM Intramuscular 06/06/2024 Administered Flu, Flucelvax (10933) 2 yrs+, single-dose syringe (6881-7012) Unknown 06/27/2023 Administered Flu, Fluzone (77020) 6 mos+, single-dose syringe/vial (5659-9830) Unknown 04/15/2022 Administered Pneumococcal (Prevnar 13) Unknown [...] Problem Status W/U Status Risk Notes Problem Malignant neoplasm of female breast (907747781) Malignant neoplasm of unspecified site of left female breast (C50.912) Active confirmed Problem Bronchiolectasis (92667791) Bronchiectasis, uncomplicated (J47.9) Active confirmed Problem Migraine variant with headache (disorder) (986482587) Migraine headache (G43.909) Active confirmed Problem Gastroesophageal reflux disease (320168612) GERD (gastroesophagea l reflux disease) (K21.9) Active confirmed Problem Pulmonary embolism (97506891) Pulmonary embolism (I26.99) Active confirmed Problem Neurogenic bladder (445147215) Neurogenic bladder (N31.9) Active confirmed Problem Multiple tracheobronchial mucus plugs (disorder) (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) Mucus plugging of bronchi (J98.09) Active confirmed Problem Rib pain (813902930) Rib pain (R07.81) Active confirmed Problem Multiple sclerosis (86772341) Multiple sclerosis (G35) Active confirmed Problem Dextroscoliosis (002523636276386) Dextroscoliosis (M41.80) Active confirmed Problem Neoplasm of heart (disorder) (585740870) Cardiac mass (I51.89) Active confirmed Problem Vocal cord palsy (disorder) (370089716) Paralysis of vocal cords or larynx, 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) Active confirmed Problem History of infectious disease (458153514) 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 Problem Septal myocardial infarction (I21.29) Active confirmed Problem History of infectious disease (164699738) History of fungal infection (Z86.19) Active confirmed Cryptococcus Problem Hemoptysis (10655585) Massive hemoptysis (R04.2) Active confirmed Problem History of COVID-19 (43506636687219346 5) History of COVID-19 (Z86.16) Active confirmed Problem Pericardial effusion (930800596) Pericardial effusion (I31.39) Active confirmed Vital Signs Heart Rate 79 /min 10/22/2024 Temperature 96.8 degrees Fahrenheit 10/22/2024 Respiratory Rate 18 /min 10/22/2024 Oximetry 94 % 10/22/2024 Blood pressure diastolic 74 mm Hg 10/22/2024 Height 65 in 10/22/2024 Blood pressure systolic 129 mm Hg 10/22/2024 Weight 137.8 lbs 10/22/2024 BMI 22.93 kg/m2 10/22/2024 Procedures Procedure Date Ordered Date Performed Result Body Sit e EKG w Interp & Report - performed 04/16/2024 N/ A CARDIO Echocardiogram 04/16/2024 N/A Encounters Encounter Location Date Provider Diagnosis [id number] [place] [address] 04/16/2024 Joselito Hoy Chest pain R07.9 [facility] [address] [place] [address] 06/06/2024 Joselito Hoy Encounter for immunization Z23 ; Bronchiectasis, uncomplicated J47.9 ; Chest pain R07.9 and Sinus tachycardia R00.0 [facility] [address] [place] [address] 06/26/2024 Joselito Hoy Rib pain R07.81 [address] [place] [address] 10/03/2024 Joselito Hoy Bronchiectasis, uncomplicated J47.9 [facility] [address] [place] [address] 10/22/2024 Stevie Fajardo Bronchiectasis, uncomplicated J47.9 ; Mucus plugging of bronchi J98.09 ; Paralysis of vocal cords or larynx, unspecified J38.00 ; Pulmonary embolism I26.99 ; History of Mycobacterium avium complex infection Z86.19 ; History of fungal infection Z86.19 and History of COVID-19 Z86.16 [facility] [address] [place] [address] 04/23/2024 Stevie Fajardo Bronchiectasis, uncomplicated J47.9 ; Massive hemoptysis R04.2 ; Mucus plugging of bronchi J98.09 ; Paralysis of vocal cords or larynx, unspecified J38.00 ; Pulmonary embolism I26.99 ; Malignant neoplasm of unspecified site of left female breast C50.912 ; History of Mycobacterium avium complex infection Z86.19 ; History of fungal infection Z86.19 and History of COVID-19 Z86.16 [facility] [address] [place] [address] 04/16/2024 Joselito Hoy [facility] [address] [place] [address] 04/24/2024 Joselito Hoy Mass in chest R22.2 [facility] [address] [facility] [place] [address] 04/24/2024 Joselito Yanez [facility] [address] [place] [address] 06/06/2024 Joselito Hoy [facility] [address] [place] [address] 06/21/2024 Joselito Espositoy [facility] [address] [facility] [place] [address] 06/27/2024 Joselito Espositoy [facility] [address] [facility] [place] [address] 08/28/2024 Stevie [facility] [address] [facility] [place] [address] 10/03/2024 Joselito [facility] [address] [facility] [place] [address] 01/20/2025 Joselito Hoy Cough R05.9 [facility] [address] [facility] [place] [address] 01/29/2025 Joselito Hoy [facility] [address] [facility] [place] [address] 02/26/2025 Joselito Hoy Pneumonia, unspecifi ed organism J18.9 [facility] [address] [facility] [place] [address] 02/27/2025 Joselito Espositorgaham [facility] [address] [facility] [place] [address] 03/02/2025 Joselito Yanez [facility] [address] [facility] [place] [address] 03/09/2025 Joselito Hoy [facility] [place] [address] [facility] [place] [address] 03/11/2025 Stevie [facility] [address] [facility] [place] [address] 04/02/2025 Joselito Hoy Productive cough R05 .8 Assessments Encounter Date [...] secretions associated with bronchiectasis, requiring transfer to [facility] for further evaluation.Had second episode 03/26/2024 which [...] further mucous plugging and development of infections. Euxn-fl-hydv was performed today regarding need for nebulizer and nebulizer supplies. Patient requires saline nebs which is available only in nebulized form for the purpose of bronchiectasis. Additionally, qlfl-hv-bhqe was performed today regarding need for vest. Patient is keeping up with vest. She was encouraged to use it twice daily as instructed to promote a good pulmonary toilet. She denies any issues with pain or irritation with use after surgery. Deferring any further bronchoscopic management to [facility] regarding any biopsies; I do not have the tools available here at [facility] to adequately treat her outside of a bronchoscopy for clearance of secretions. 10/22/2024 Mucus plugging of bronchi (ICD-10 - J98.09) Continue with a good pulmonary toilet. 06/06/2024 Encounter for immunization (ICD-10 - Z23) 06/06/2024 Bronchiectasis, uncomplicated (ICD-10 - J47.9) 06/26/2024 Rib pain (ICD-10 - R07.81) 10/03/2024 Bronchiectasis, uncomplicated (ICD-10 - J47.9) 04/24/2024 Mass in chest (ICD-10 - R22.2) 01/20/2025 Cough (ICD-10 - R05.9) 02/26/2025 Pneumonia, unspecified organism (ICD-10 - J18.9) 04/02/2025 Productive cough (ICD-10 - R05.8) 06/06/2024 Chest pain (ICD-10 - R07.9) 10/22/2024 Paralysis of vocal cords or larynx, [...] pulmonary embolism identified 03/21/2024. Sharon on Eliquis. 06/06/2024 Sinus tachycardia (ICD-10 - R00.0) 10/22/2024 History of Mycobacterium avium complex infection [...] 04/23/2024 History of COVID-19 (ICD-10 - Z86.16) 04/23/2024 Other s/p lumpectomy. F/U with oncology. s/p lumpectomy. F/U with oncology. 10/22/2024 Other Plan Of Treatment Pending Test Test Name Order Date CULTURE, SPUTUM 04/21/2023 EKG w Interp & Report - performed 2023 CARDIO Echocardiogram 04/16/2024 Sputum Culture 01/20/2025 Sputum Culture 04/02/2025 CBC W/AUTO DIFF 02/26/2025 High Sensitivity Troponin 04/16/2024 CULTURE SPUTUM 04/16/2024 CULTURE SPUTUM 06/06/2024 PROTIME 04/04/2024 QUANTIFERON TB GOLD PLUS 02/26/2025 SPUTUM GRAM STAIN 06/06/2024 SPUTUM GRAM STAIN 04/16/2024 SYMPTOMATIC COVID-19 ANTIGEN 01/29/2024 US ROXIE DOP LEG LT 04/04/2024 US ROXIE DOP LEG RT 04/04/2024 XR CHEST 2 V 04/16/2024 XR CHEST 2 V 06/26/2024 Insurance Providers Payer Name Payer Address Payer Phone Subscriber Number Group Number Insured Name Patient Relationship to Insured Coverage Start Date Coverage End Date MEDICARE [place] [address] [place] [place] [address] [phone] [id number] Emeli Kaufman Self - patient is the insured 4 [facility] [address] [address] [place] [address] [id number] Emeli Kaufman Self - patient is the [...] female breast C50.912 Surgical History Surgery Date(Month/Year) EBUS-[facility] 08/06/2024 Open Heart Surgery- remove myxoma 2024 Bronchoscopy-07/05/2019 & 04/28/2021, ,03/14/2024, 03/2024 dilatation and curettage section lumpectomy, left breast 04/11/2023 Chest Tube Placement 09/09/2024 Hospitalization History Reason Date(Month/Year) Massive Hemoptysis-[facility] 03/14/2024 Massive Hemoptysis-[facility] 03/26/2024
--- OUTSIDE RECORDS SUMMARY | 2025-04-09 15:03 | XMS_ITS | Clinical Summary ---
Author Organization [facility] Healthcare Address [address] [place] [address] Care Team Providers Care Education Specialist Name Role Phone Sabas Wagner MD Primary Care Provider [phone] Allergies No known active allergies Medications latanoprost [...] Encounters Date Type Department Care Team Description 03/04/2025 10:30 AM EDT [facility] [address] [place] [id number] Encounter for screening mammogram for malignant neoplasm of breast 03/04/2025 Travel 03/03/2025 Travel 02/25/2025 Travel from Last 3 Months Family [...] Care Team (Late st Contact Info) Description 04/30/2025 3:00 PM EDT Office Visit ROXANA SWANSON [address] [place] [phone] Fernanda Mcgovern DO [address] [place] [address] Health Maintenance Due Date Last Done Comments CT Colonography 1958 Colonoscopy 1958 Colorectal Cancer Screening 1958 FIT-DNA 1958 FIT 1958 FOBT 1958 Sigmoidoscopy 1960 Influenza Vaccine (#1) 2025 3, 04/15/2022, 05/02/2021, Additional history exists Mammogram 03/04/2026 03/04/2025, 02/14, 01/05/2023, Additional history exists Cervical Cancer Screening Discontinued HPV/Cotest Discontinued 01/11/2023, 11/15, 12/03/2020, Additional history exists Pap Smear Discontinued 01/11/2023 Pneumococcal Vaccine: 65+ Years Completed 06/30/2023, 07/14/2014, 12/01/2011 Procedures Procedure Name Priority Date/Time Associated Diagnosis Comments BI MAMMOGRAM SCREENING TOMOSYNTHESIS BILATERAL Routine 03/04/2025 10:34 AM EDT Encounter for screening mammogram for malignant neoplasm of breast THINPREP TIS PAP W/REFL HPV MRNA E6/E7 Routine 01/11/2023 2:39 PM EDT Screening for malignant neoplasm of cervix from Last 3 Months or Most Recently Relevant to Health Maintenance Results * Bilateral screening mammogram with tomosynthesis (03/04/2025 10:34 AM EDT) Anatomical Region Laterality Modality Breast Bilateral Mammography 03/05/2025 10:0 2 AM EDT Impressions 03/05/2025 10:08 AM EDT Impression: No specific evidence of malignancy seen in either breast. BIRADS 2 - Benign Findings DENSITY: There are scattered areas of fibroglandular density. FOLLOW-UP: Routine Screening Mammogram ELECTRONICALLY SIGNED BY: Bam Grossman M.D. Narrative 03/05/2025 10:08 AM EDT Examination: BI MAMMOGRAM SCREENING TOMOSYNTHESIS BILATERAL Clinical History: screening for malignant neoplasm, history of left breast carcinoma Technique: Screening digital mammography study of both breasts was performed with 2-D and 3-D tomosynthesis imaging. Study was compared to the prior exam dated 03/01/2024. Findings: There is no evidence of interval dominant spiculated mass, grouped microcalcifications, or skin thickening which would be suggestive of malignancy. A few benign-appearing calcifications are seen bilaterally. Postoperative clips are noted on the left superiorly. Mild skin thickening on the left similar to the prior study and and likely postoperative in nature. Procedure Note Bam Grossman MD - 03/05/2025 Examination: BI MAMMOGRAM SCREENING TOMOSYNTHESIS BILATERAL Clinical History: screening for malignant neoplasm, history of left breastcarcinoma Technique: Screening digital mammography study of both breasts wasperformed with 2-D and 3-D tomosynthesis imaging. Study was compared tothe prior exam dated 03/01/2024. Findings: There is no evidence of interval dominant spiculated mass,grouped microcalcifications, or skin thickening which would be suggestiveof malignancy. A few benign-appearing calcifications are seen bilaterally. Postoperativeclips are noted on the left superiorly. Mild skin thickening on the leftsimilar to the prior study and and likely postoperative in nature. IMPRESSION: Impression: No specific evidence of malignancy seen in either breast. BIRADS 2 - Benign Findings DENSITY: There are scattered areas of fibroglandular density. FOLLOW-UP: Routine Screening Mammogram ELECTRONICALLY SIGNED BY: Bam Grossman M.D. [facility] Sushil Narayan MD IMG BI PROCEDURES F inal Result * THINPREP TIS PAP W/REFL HPV MRNA E6/E7 (01/11/2023 2:39 PM EDT) CLINICAL INFORMATION [facility] Comment:Routine exam LMP [facility] Comment:TISH PREV. PAP [facility] Comment:NONE GIVEN PREV. BX [facility] Comment:NONE GIVEN SOURCE [facility] Comment:Cervix, Endocervix STATEMENT OF ADEQUACY [facility] Comment: Satisfactory for evaluation. Endocervical/transformation zone component present. INTERPRETATION/RESUL T [facility] Comment:Negative for intraep ithelial lesion or malignancy. 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 (ALWAYS MESSAGE) [facility] Comment: EXPLANATORY NOTE: The [...] Organization Information Site ID: [id number] Name: [facility] Address: [address] [place] [address] Director: Nico Nixon MD Fernanda Mcgovern DO LAB CYTOLOGY ORDERABLES Fin al Result [facility] from Last 3 Months or Most Recently Relevant to Health Maintenance Insurance MEDICARE [employer]IC [employer] Care Teams Education Specialist Relationship Specialty Start Date End Date Sabas Wagner MD [address] [place] [address] PCP - General Family Medicine 12/28/22
--- OUTSIDE RECORDS SUMMARY | 2025-04-09 15:03 | XMS_ITS | Encounter Summary ---
Author Organization [facility] Address [address] [place] [address] Care Team Providers Care Channel Machine Operator Name Role Phone Sabas Wagner MD Primary Care Provider [phone] Kem Block MD Unavailable [phone] Janell Reynolds MD Unavailable [phone] Deangelo Morales MD Unavailable [phone] Source Comments In the event this information is protected by the Federal Confidentiality of Alcohol and Drug AbusePatient Records regulations: The Federal rules restrict any use of the information to criminally investigate or prosecute any alcohol or drug abuse patient.[facility] Encounter Details Date Type Department Care Team (Latest Contact Info) Description 12/08/2024 [place] [address] Provider, Ccf Please complete Cardiovascular Surgery Questionnaires [...] is lower risk 3 02/20/2024 Data from: https://www.neighborhoodatlas.[facility]/. Last address used for calculation [id number] 02/20/2024 Comments No Sex and [...] of Assessment Author No 09/14/2024 1:11 PM Aanyeli Coy RN * Do you have serious [...] 06/09/2025 7:15 AM EST Procedure Cardiology [address] [place] [address] est imaging 6 mo f/u per HVI order 06/09/2025 7:45 AM EST Office Visit Cardiology [address] [phone] Deangelo Morales MD [address] [id number] est imaging 6 mo f/u per HVI order documented as of this encounter Goals Goal Patient Goal Type Associated Problems Recent Progress Patient-Stated? Author Blood Pressure < 140/90 Blood Pressure 118/80( 025 10:57 AM EDT) No Janell Reynolds MD documented as of this encounter Visit Diagnoses Not on filedocumented in this encounter Care Teams Channel Machine Operator Relationship Specialty Start Date End Date Sabas Wagner MD PCP - General Family Medicine 09/09/10 Kem Block MD [address] [place] [address] Referring Cardiology 06/04/24 Janell Reynolds MD [address] [place] [address] Surgeon Cardiac Surg 06/05/24 Deangelo Morales MD [address] [place] [address] Primary Staff Physician Cardiology 07/11/24 documented as of this encounter
--- OUTSIDE RECORDS SUMMARY | 2025-04-09 15:03 | XMS_ITS | Encounter Summary ---
Author Organization [facility] Address [address] [place] [address] Care Team Providers Care Neighborhood Planner Name Role Phone Sabas Wagner MD Primary Care Provider [phone] Kem Block MD Unavailable [phone] Janell Reynolds MD Unavailable [phone] Deangelo Morales MD Unavailable [phone] Source Comments In the event this information is protected by the Federal Confidentiality of Alcohol and Drug AbusePatient Records regulations: The Federal rules restrict any use of the information to criminally investigate or prosecute any alcohol or drug abuse patient.[facility] Encounter Details Date Type Department Care Team (Latest Contact Info) Description 10/09/2024 [place] [address] Provider, Ccf Please complete Cardiovascular Surgery Questionnaires [...] is lower risk 3 02/20/2024 Data from: https://www.neighborhoodatlas.[facility]/. Last address used for calculation [id number] 02/20/2024 Comments No Sex and [...] 06/09/2025 7:15 AM EST Procedure Cardiology [address] [place] [address] est imaging 6 mo f/u per HVI order 06/09/2025 7:45 AM EST Office Visit Cardiology [address] [id number] Deangelo Morales MD [address] [id number] est imaging 6 mo f/u per HVI order documented as of this encounter Goals Goal Patient Goal Type Associated Problems Recent Progress Patient-Stated? Author Blood Pressure < 140/90 Blood Pressure 118/80( 025 10:57 AM EDT) No Janell Reynolds MD documented as of this encounter Visit Diagnoses Not on filedocumented in this encounter Care Teams Neighborhood Planner Relationship Specialty Start Date End Date Sabas Wagner MD PCP - General Family Medicine 09/09/10 Kem Block MD [address] [place] [address] Referring Cardiology 06/04/24 Janell Reynolds MD [address] [place] [address] Surgeon Cardiac Surg 06/05/24 Deangelo Morales MD [address] [place] [address] Primary Staff Physician Cardiology 07/11/24 documented as of this encounter
--- OUTSIDE RECORDS SUMMARY | 2025-04-09 15:03 | XMS_ITS | Encounter Summary ---
Author Organization [facility] Address [address] [place] [address] Care Team Providers Care Recessing Machine Operator Name Role Phone Sbaas Wagner MD Primary Care Provider [phone] Kem Block MD Unavailable [phone] Janell Reynolds MD Unavailable [phone] Deangelo Morales MD Unavailable [phone] Source Comments In the event this information is protected by the Federal Confidentiality of Alcohol and Drug AbusePatient Records regulations: The Federal rules restrict any use of the information to criminally investigate or prosecute any alcohol or drug abuse patient.[facility] Encounter Details Date Type Department Care Team (Latest Contact Info) Description 03/08/2025 [place] [address] Provider, Ccf Please complete Cardiovascular Surgery Questionnaires [...] risk 3 02/20/2024 Data from: https://www.neighborhoodatlas.[facility]/. Last address used for calculation [id number] 02/20/2024 Comments No Sex and [...] 06/09/2025 7:15 AM EST Procedure Cardiology [address] [place] [address] est imaging 6 mo f/u per HVI order 06/09/2025 7:45 AM EST Office Visit Cardiology [address] [phone] Deangelo Morales MD [address] [phone] est imaging 6 mo f/u per HVI order documented as of this encounter Goals Goal Patient Goal Type Associated Problems Recent Progress Patient-Stated? Author Blood Pressure < 140/90 Blood Pressure 118/80( 025 10:57 AM EDT) No Janell Reynolds MD documented as of this encounter Visit Diagnoses Not on filedocumented in this encounter Care Teams Recessing Machine Operator Relationship Specialty Start Date End Date Sabas Wagner MD PCP - General Family Medicine 09/09/10 Kem Block MD [address] [place] [address] Referring Cardiology 06/04/24 Janell Reynolds MD [address] [place] [address] Surgeon Cardiac Surg 06/05/24 Deangelo Morales MD [address] [place] [address] Primary Staff Physician Cardiology 07/11/24 documented as of this encounter
--- OUTSIDE RECORDS SUMMARY | 2025-04-09 15:03 | XMS_ITS | Clinical Summary ---
Author Organization [facility] Address [address] [place] [address] Phone Care Team Providers Care Precision Grinder Name Role Phone Unavailable Primary Care Provider [...] COVID-19 Vaccine (1 - 2023-2 5 season) 2025 Influenza Vaccine (#1) 2025 RSV High Risk: [...]
--- OUTSIDE RECORDS SUMMARY | 2025-04-09 15:03 | XMS_ITS | Encounter Summary ---
Author Organization [facility] Address [address] [place] [address] Care Team Providers Care Cargo And Ramp Services Manager Name Role Phone Sabas Wagner MD Primary Care Provider [phone] Kem Block MD Unavailable [phone] Janell Reynolds MD Unavailable [phone] Deangelo Morales MD Unavailable [phone] Source Comments In the event this information is protected by the Federal Confidentiality of Alcohol and Drug AbusePatient Records regulations: The Federal rules restrict any use of the information to criminally investigate or prosecute any alcohol or drug abuse patient.[facility] Encounter Details Date Type Department Care Team (Latest Contact Info) Description 03/15/2025 [place] [address] Provider, Ccf REMINDER: Please complete Cardiovascular Surgery Questionnaires Social History [...] is lower risk 3 02/20/2024 Data from: https://www.neighborhoodatlas.[facility]/. Last address used for calculation [id number] 02/20/2024 Comments No Sex and [...] 06/09/2025 7:15 AM EST Procedure Cardiology [address] [place] [address] est imaging 6 mo f/u per HVI order 06/09/2025 7:45 AM EST Office Visit Cardiology [address] [phone] Deangelo Morales MD [address] [phone] est imaging 6 mo f/u per HVI order documented as of this encounter Goals Goal Patient Goal Type Associated Problems Recent Progress Patient-Stated? Author Blood Pressure < 140/90 Blood Pressure 118/80( 025 10:57 AM EDT) No Janell Reynolds MD documented as of this encounter Visit Diagnoses Not on filedocumented in this encounter Care Teams Cargo And Ramp Services Manager Relationship Specialty Start Date End Date Sabas Wagner MD PCP - General Family Medicine 09/09/10 Kem Block MD [address] [place] [address] Referring Cardiology 06/04/24 Janell Reynolds MD [address] [place] [address] Surgeon Cardiac Surg 06/05/24 Deangelo Morales MD [address] [place] [address] Primary Staff Physician Cardiology 07/11/24 documented as of this encounter
--- OUTSIDE RECORDS SUMMARY | 2025-04-09 15:03 | XMS_ITS | Encounter Summary ---
Author Organization [facility] Address [address] [place] [address] Care Team Providers Care Director Telecommunications Name Role Phone Sabas Wagner MD Primary Care Provider +[phone] Kem Block MD Unavailable [phone] Janell Reynolds MD Unavailable [phone] Deangelo Morales MD Unavailable [phone] Source Comments In the event this information is protected by the Federal Confidentiality of Alcohol and Drug AbusePatient Records regulations: The Federal rules restrict any use of the information to criminally investigate or prosecute any alcohol or drug abuse patient.[facility] Encounter Details Date Type Department Care Team (Late st Contact Info) Description 08/15/2024 Patient Msg Cardiothoracic [address] [place], [place] [phone] Provider, Ccf Please complete your Cardiac Surgery [...] is lower risk 3 02/20/2024 Data from: https://www.neighborhoodatlas.medicine.[facility].edu/. Last address used for calculation [address] 02/20/2024 Comments No Sex and [...] 06/09/2025 7:15 AM EST Procedure Cardiology [address] [place] [address] est imaging 6 mo f/u per HVI order 06/09/2025 7:45 AM EST Office Visit Cardiology [address] [phone] Deangelo Morales MD [address] [phone] est imaging 6 mo f/u per HVI order documented as of this encounter Goals Goal Patient Goal Type Associated Problems Recent Progress Patient-Stated? Author Blood Pressure < 140/90 Blood Pressure 118/80( 025 10:57 AM EDT) No Janell Reynolds MD documented as of this encounter Visit Diagnoses Not on filedocumented in this encounter Care Teams Director Telecommunications Relationship Specialty Start Date End Date Sabas Wagner MD PCP - General Family Medicine 09/09/10 Kem Block MD [address] [place] [address] Referring Cardiology 06/04/24 Janell Reynolds MD [address] [place] [address] Surgeon Cardiac Surg 06/05/24 Deangelo Morales MD [address] [place] [address] Primary Staff Physician Cardiology 07/11/24 documented as of this encounter
--- OUTSIDE RECORDS SUMMARY | 2025-04-09 15:03 | XMS_ITS | Encounter Summary ---
Author Organization [facility] Address [address] [place] [address] Care Team Providers Care Skeet Operator Name Role Phone Sabas Wagner MD Primary Care Provider [phone] Encounter Details Date Type Department Care Team (Late st Contact Info) Description 12/13/2022 Abstract ROXANA SWANSON [address] [place] [address] Fernanda Mcgovern DO [address] [place] [address] Social History Tobacco Use Types Packs/Day Years [...] EDT Office Visit ROXANA SWANSON [address] [place] [address] Fernanda Mcgovern DO [address] [place] [phone] documented as of this encounter Visit Diagnoses Not on filedocumented in this encounter Care Teams Skeet Operator Relationship Specialty Start Date End Date Sabas Wagner MD [address] [place] [address] PCP - General Family Medicine 12/28/22 documented as of this encounter
--- OUTSIDE RECORDS SUMMARY | 2025-04-09 15:07 | XMS_ITS | CCD ---
Author Organization [facility] Team Providers Care Nitrocellulose Operator Name Role Phone VAIBHAVY ., DR REED [...] DR REED Admitting Unavailable HOY ., DR ERED Primary Care Unavailable HOY ., DR REED [...] Physician Brianna Yanez MD Primary Care Provider [phone] PROVIDER, UNKNOWN Attending Unavailable PROVIDER, UNKNOWN Admitting Unavailable Neftali Narayan Admitting Unavailmichelle e Neftali Narayan Attending Unavailabl e Al-Marrawi, Neftali Yaser Attending Unavailabl e Al-Marrawi, Masoodd Yaser Admitting Unavailabl e Al-Marrawi, Mhd Yaser Admitting Unavailabl e Al-Marrawi, Mhd Yaser Attending Unavailabl e Al-Marrawi, Mhd Yaser Referring Unavailabl e Bernard RICE, Brianna Calvert Primary Care Provider [phone] Jeff-Yesenia, Neftali Yaser Attending Unavailabl e Al-Marrawi, Mhd Yaser Attending Unavailabl e Al-Marrawi, Mhd Yaser Admitting Unavailabl e Demboske, Khanh Gina Admitting Unavailable Demboske, Khanh Gina Attending Unavailable Al-Marrawi, Masoodd Yaser Attending Unavailabl e Demboske, Khanh Gina Admitting Unavailable Demboske, Khanh Gina Attending Unavailable Al-Marrawi, Masoodd Yaser Attending Unavailabl e Al-Marrawi, Mhd Yaser Admitting Unavailabl e Al-Marrawi, Masoodd Yaser Attending Unavailabl e Al-Marrawi, Mhd Yaser Admitting Unavailabl e Al-Marrawi, Mhd Yaser Attending Unavailabl e Demboske, Khanh Gina Attending Unavailable Lauro Simon. Attending Unavailable MoLauro kaufman. Attending Unavailable MoLauro kaufman Attending Unavailable Lauro Simon Attending Unavailable Al-Marrawi, Neftali Yaser Attending Unavailabl e Al-Marrawi, Masoodd Yaser Attending Unavailabl e Al-Marrawi, Masoodd Yaser Referring Unavailabl e Al-Marrawi, Mhd Yaser Admitting Unavailabl francheska Hurtado MD, [facility] [phone] Unspecified, Cardiac Surgeon - Unavailable U navailable Unspecified, Cardiac Surgeon - Unavailable U navailable Eliecer RICE, Janell Calvert Unavailable [phone] Deangelo Morales MD Unavailable MD Neftali Narayan Admitting Unavail able MD Neftali Narayan Referring Unavail able MD Neftali Narayan Attending Unavail able MD Neftali Narayan Referring Unavail able MD Neftali Narayan Attending Unavail able MD Neftali Narayan Admitting Unavail able MD Neftali Narayan Attending Unavail able Lauro Simon Attending Unavailable Al-Marrasendy, Neftali Ling Attending Unavailabl e Al-Marrasendy, eNftali Ling Admitting Unavailabl e Al-Marrawi, Neftali Ling Attending Unavailabl e Al-Marrawi, Neftali Ling Attending Unavailabl e Al-Marrawi, Neftali Yaadán Admitting Unavailabl e HOROTIS HALE Attending Unavailable ASSALY, RAGHEB Admitting Unavailable SAMSA, ULI Referring Unavailable PIRKL, DEA Referring Unavailable ASSALY, RAGHEB Referring Unavailable ALGHOTHANI, MOHAMAD Referring Unavailable AMRIK PERALTAA Attending Unavaila ble OMBALLI, NIYA Attending Unavailable OMBALLI, MOHAMED Attending Unavailable ASSALY, RAGHEB Referring Unavailable JOSE, MIRRA Referring Unavailable PIRKL, DEA Referring Unavailable YUSUF, LAURA Referring Unavailable ASSALY, RAGHEB Referring Unavailable ASSALY, RAGHEB Referring Unavailable OMBALLI, MOHAMED Referring Unavailable OMBALLI, NIYA Attending Unavailable OMBALLI, MOHAMED Referring Unavailable ANIBAL, [...] Admitting Unavailable SIMON, BECKIE T Referring Unavailable YASER JEFF-SUDHAKAR LOPEZ Referring Unava ilable RINKES, FERNANDA E Attending Unavailable RINKES, FERNANDA E Referring Unavailable JANELL GONZÁLES Referring Unavailable BRIANNA YANEZ Primary Care Unavailable SAMAME, EMELI Referring Unavailable [...] HOY, BRIANNA M Primary Care Unavailable COLIN GONZÁLES-VIKY M Attending Unavailable COLIN GONZÁLES-SALMON M Admitting Unavailable HOY, BRIANNA M Primary Care Unavailable HOY, BRIANNA M Primary Care Unavailable DEANGELO MORALES Attending Unavailable COLIN GONZÁLES-SALMON M Referring Unavailable TONGLIZBETHN-SALMON M Referring Unavailable HOY, BRIANNA M Primary Care Unavailable HOY, BRIANNA M Primary Care Unavailable COLIN GONZÁLES-SALMON M Referring Unavailable TONG, COLIN-SALMON M Referring Unavailable HOY, BRIANNA M Primary Care Unavailable TONG, COLIN-SALMON M Referring Unavailable TONGLIZBETHN-SALMON M Attending Unavailable HOY, BRIANNA M Primary Care Unavailable LIZBETH GONZÁLESN-SALMON M Referring Unavailable JUNG QUIROZ Attending Unavaila ble HOY, BRIANNA M Primary Care Unavailable HOY, BRIANNA M Primary Care Unavailable TONGCOLIN-SALMON M Referring Unavailable HOY, BRIANNA M Primary Care Unavailable TONGCOLIN-SALMON M Referring Unavailable TONGLIZBETHN-SALMON M Referring Unavailable TONGLIZBETHN-SALMON M Attending Unavailable HOY, BRIANNA M Primary Care Unavailable HOY, BRIANNA M Primary Care Unavailable TONGLIZBETHN-SALMON M Referring Unavailable HOY, BRIANNA M Primary Care Unavailable TONGLIZBETHN-SALMON M Referring Unavailable HOY, BRIANNA M Primary Care Unavailable TONG, COLIN-SALMON M Referring Unavailable TONG, COLIN-SALMON M Referring Unavailable FRANCISCO JAVIER CALDERÓN Attending Unavailable HOY, BRIANNA M Primary Care Unavailable COLIN GONZÁLES-SALMON M Referring Unavailable CANDELARIA, ARIELLE N Attending Unavailable HOY, BRIANNA M Primary Care Unavailable HOY, BRIANNA M Primary Care Unavailable TONGCOLIN-SALMON M Referring Unavailable TONG, COLIN-SALMON M Referring Unavailable BRIANNA YANEZ M Primary Care Unavailable LIZBETH GONZÁLESGLEN Calvert Referring Unavailable HOBRIANNA Stevenson M Primary Care Unavailable SELF Referring Unavailable JANELL GONZÁLES Attending Unavailable HOY, BRIANNA M Primary Care Unavailable LIZBETH GONZÁLESGLEN Calvert Referring Unavailable HOY, BRIANNA M Primary Care Unavailable HOY, BRIANNA M Primary Care Unavailable ELIECERLIZBETHGLEN Calvert Referring Unavailable KHOT, ARIELLE N Attending Unavailable KHOT, ARIELLE N Admitting Unavailable HOY, BRIANNA M Primary Care Unavailable Al-Marrasendy, Masoodd Yaser Attending Unavailabl e Al-Marrawi, Neftali Yaser Attending Unavailabl e Al-Marrawi, Mhd Yaser Admitting Unavailabl e Al-Marrawi, Masoodd Yaser Attending Unavailabl e Al-Marrawi, Mhd Yaser Admitting Unavailabl e Lauro Simon Attending Unavailable Allergies Allergy Classification Reported Allergen(s) Allergy Type Date of Onset Reaction(s) Facility (8 sources) No Known Medication Allergies; Translations: [No Known Medication Allergies] Propensity to adverse reactions (disorder) [facility] Repository (20 sources) Warfarin; Translations: [WARFARIN] Drug Allergy 4 Other: See Comments [facility] (4 sources) apixaban; Translations: [apixaban] Drug Allergy Bleeding (finding) [facility] Comment on above: pulmonary hemorrhage (3 sources) apixaban; Translations: [Eliquis] Drug Allergy [facility] (3 sources) apixaban; Translations: [APIXABAN] Drug Allergy 5 Other: See Comments [facility] Medications Current Medications Medication Drug Class(es) Dates [...] day(s), # 30 tab(s), Refills(s) 5, Pharmacy: [facility]/pharmacy #[id number], 165, cm, 05/22/23 14:14:00 EST, [...] Ordered metoprolol tartrate 25 mg oral tablet (20 sources) beta-Adrenergic Linus Start: 03-19-2025 End: 06-17-2025 take 1 tablet by mouth every twelve hours metoprolol tartrate, short acting, (LOPRESSOR) 25 mg tablet Take 1/2 tablet by mouth every 12 hours. 90 tablet 3 03/19/2025 06/17/2025 Active Start: 12-10-2024 Lopressor 25 m g oral tablet 12.5 mg = 0.5 tab(s), Oral, BID, Refills(s) 0 Start Date: 12/10/24 Status: Ordered Repeat number: 1 Start: 09-14-2024 End: 03-14-2025 take 1 tablet by mouth every twelve hours in the evening metoprolol tartrate, short acting, (LOPRESSOR) 25 mg tablet Take 1/2 tablet by mouth every 12 hours. 90 tablet 09/14/2024 3:05 PM EST 09/14/2024 03/14/2025 Discontinued Start: 04-09-2024 Lopressor 25 m g oral tablet Refills(s) 0 Start Date: 04/09/24 Status: Ordered Start: 04-01-2024 End: 05-01-2024 metoprolol tartrate (Lopress or) 25 MG tablet Take 12.5 mg by mouth in the morning and 12.5 mg in the evening. 04/01/2024 05/01/2024 Active MULTIVITAMIN-FERROUS FUMARATE-FOLIC ACID 18 MG-400 MCG TABLET (8 sources) Start: 11-15-2024 take 1 tablet by mouth once daily at breakfast MULTIVITAMIN-FERROUS FUMARATE-FOLIC ACID 18 MG-400 MCG TABLET Take 1 tablet by mouth daily with breakfast. 30 tablet 2 11/15/2024 Active Start: 09-15-2024 End: 12-14-2024 take 1 tablet by mouth once daily at breakfast MULTIVITAMIN-FERROUS FUMARATE-FOLIC ACID 18 MG-400 MCG TABLET Take 1 tablet by mouth daily with breakfast. 30 tablet 2 09/14/2024 3:05 PM EST 09/15/2024 12/14/2024 Active mupirocin 0.02 mg/mg topical ointment (4 sources) RNA Synthetase Inhibitor Antibacterial Start: 08-27-2024 mupirocin (BACTROBAN ) 2 % ointment Apply a small amount [...] taking., # 12 tab(s), Refills(s) 1, Pharmacy: [facility]/pharmacy #[id number], 165, cm, 09/04/23 14:48:00 EST, [...] day, # 12 tab(s), Refills(s) 1, Pharmacy: [facility]/pharmacy #[id number], 165, cm, 12/10/24 14:47:00 EDT, Height/Length [...] day, # 12 tab(s), Refills(s) 1, Pharmacy: [facility]/pharmacy #[id number], 165, cm, 05/27/24 15:17:00 EST, Height/Length [...] day, # 12 tab(s), Refills(s) 1, Pharmacy: [facility]/pharmacy #[id number], 165, cm, 12/04/23 14:36:00 EDT, [...] day, # 12 tab(s), Refills(s) 1, Pharmacy: [facility]/pharmacy #[id number], 165, cm, 09/04/23 14:48:00 EST, [...] 2 spray(s) nasal route twice daily Ipratropium [place] (ATROVENT) 0.03 % nasal spray Indications: Chronic [...] 1 Start: 01-30-2023 take 1 capsule by co ut once daily Vitamin D 50,000 intl units (1.25 mg) oral capsule 50,000 International_Unit = 1 cap(s), Oral, Daily, Refills(s) 0, Prophylaxis Start Date: 01/30/23 Status: Ordered Start: 01-30-2023 take 1 capsule by [facility] every week Vitamin D 50,000 intl units (1.25 mg) oral capsule 50,000 International_Unit = 1 cap(s), Oral, qWeek, Refills(s) 0, Prophylaxis Start Date: 01/30/23 Status: Ordered Problems Active Problems Problem Classification Problem Date Documented Date Episodic/Chronic Bacterial infection; unspecified site (20 sources) [...] sclerosis] Onset: 08-31-2010 01-30-2023 Chronic Other aftercare (6 sources) Follow-up status; Translations: [Encounter for follow-up examination after completed treatment for malignant neoplasm] Onset: 08-07-2023 Episodic Other aftercare (1 source) Surgical follow-up; Translations: [Encounter for follow-up examination after completed treatment for conditions other than malignant neoplasm] 09-24-2024 Episodic Other and ill-defined heart disease (10 sources) Mass of thoracic structure; Translations: [Other ill-defined heart diseases] Onset: 09-09-2024 07-19-2024 Chronic Other and ill-defined heart disease (3 sources) Other ill-defined heart diseases; Translations: [Other ill-defined heart diseases] Onset: 05-01-2024 Chronic Other and unspecified benign neoplasm (11 sources) Benign neoplasm of heart; 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] 06-10-2024 Episodic Other and unspecified benign neoplasm (1 source) Myxoma of heart; 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] 09-19-2024 Episodic Other bone disease and musculoskeletal deformities [...] abnormal finding of lung field] Episodic Other screening for suspected conditions (not mental disorders or infectious disease) (20 sources) Encounter for screening for malignant neoplasm of rectum; Translations: [Mammography abnormal] Onset: 07-12-2022 Episodic Residual codes; unclassified (2 sources) History of cardiac catheterization; Translations: [Other specified postprocedural states] 09-03-2024 Episodic Unclassified (1 source) CONTACT W/AND (SUSP) EXPOS COVID-19; Translations: [CONTACT W/AND (SUSP) EXPOS COVID-19] Onset: 09-18-2022 Unclassified (20 sources) Body mass index 20-24 - normal 02-20-2023 Unclassified (15 sources) Interactive Heart Surgery Education Onset: 08-15-2024 08-15-2024 Unclassified (2 sources) History of cardiac catheterization 09-14-2024 Unclassified (2 sources) Telehealth Phone Visit; Translations: [Telehealth Phone Visit] Onset: 08-29-2024 Unclassified (1 source) Autogenerated Problem Onset: 03-08-2025 03-08-2025 Viral infection (4 sources) COVID-19; Translations: [COVID-19] Onset: 04-16-2022 Past or Other Problems Problem Classification Problem Date Documented Date Episodic/Chronic Acute posthemorrhagic anemia (9 sources) Acute posthemorrhagic anemia; Translations: [Acute posthemorrhagic anemia] Onset: 09-12-2024 09-12-2024 Episodic Cardiac dysrhythmias (2 sources) Tachycardia, unspecified; Translations: [Tachycardia, unspecified] Onset: 03-27-2024 Episodic Complications of surgical procedures or medical care (9 sources) Postprocedural respiratory disorders; Translations: [Postprocedural pneumothorax] Onset: 09-13-2024 09-13-2024 Episodic Fluid and electrolyte disorders (8 sources) Hypervolemia; Translations: [Fluid overload, unspecified] Onset: 09-11-2024 09-11-2024 Episodic Lymphadenitis (2 sources) Localized enlarged lymph nodes; Translations: [Localized enlarged lymph nodes] Onset: 08-01-2024 Episodic Nonspecific chest pain (4 sources) Chest pain; Translations: [Other chest pain] Onset: 08-26-2024 08-15-2024 Episodic Other aftercare (1 source) Encounter for follow-up examination after completed treatment for conditions other than malignant neoplasm; Translations: [Surgery follow-up] Onset: 09-24-2024 Episodic Other and unspecified benign neoplasm (3 sources) Benign neoplasm of heart; 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 (HCC)] Onset: 08-26-2024 Episodic Other circulatory disease (3 sources) Other [...] Hemoptysis; Translations: [Hemoptysis] Onset: 03-27-2024 Episodic Other nervous system disorders (8 sources) Postoperative pain ; Translations: [Other acute postprocedural pain] Onset: 09-09-2024 09-09-2024 Episodic Other upper respiratory infections (4 sources) Acute sinusitis, unspecified; Translations: [ACUTE SINUSITIS UNSPECIFIED] Onset: 03-22-2022 Episodic Pleurisy; pneumothorax; pulmonary collapse (20 sources) Atelectasis; Translations: [Atelectasis] Onset: 09-09-2024 09-14-2024 Episodic Pneumonia (except that caused by tuberculosis or sexually transmitted disease) (20 sources) Pneumonia; Translations: [Pneumonia, unspecified organism] Onset: 09-14-2016 02-22-2023 Episodic Residual codes; unclassified (2 sources) Estrogen receptor positive status [ER+]; Translations: [Estrogen receptor positive status (ER+)] Onset: 05-25-2023 Episodic Residual codes; unclassified (1 source) Other specified postprocedural states; Translations: [Hx of cardiac cath] Onset: 11-15-2024 Episodic Skin and subcutaneous tissue infections (4 sources) Cellulitis, unspecified; Translations: [CELLULITIS UNSPECIFIED] Onset: 01-03-2022 Episodic Results Test Name Value Interpretation Reference Range Facility CNPTOUTREACHon 03-14-2025 CNPTOUTREACH Normal [facility] BI MAMMOGRAM SCREENING TOMOS YNTHESIS BILATERALon 03-04-2025 BI MAMMOGRAM SCREENING TOMOSYNTHESIS BILATERAL This is a summary report. The complete report is available in the patient's medical record. If you cannot access the medical record, please contact the sending organization for a detailed fax or copy. Examination: BI MAMMOGRAM SCREENING TOMOSYNTHESIS BILATERAL Clinical [...] Mammogram ELECTRONICALLY SIGNED BY: Bam Grossman M.D. Normal Not Available Immunoglobs. A/E/G/Mon 01-02 IgA Quant duplt test Invalid Interpretation Code [facility] Comment on above: Performed By: #### 1 [id number] #### [facility] [address] [place] [address] IgG Quant duplt test Invalid Interpretation Code [facility] Comment on above: Performed By: #### 1 [id number] #### [facility] [address] [place] [address] IgM Quant duplt test Invalid Interpretation Code [facility] Comment on above: Performed By: #### 1 [id number] #### [facility] [address] [place] [address] CA 15-3on 12-26-2024 CA 15-3 19.8 unit/mL Invalid Interpretation Code 0.0-25.0 [facility] Comment on above: Result Comment: [facility] Electrochemiluminescence Immunoassay (ECLIA) Values obtained with different assay methods or kits cannot be used interchangeably. Results cannot be interpreted as absolute evidence of the presence or absence of malignant disease. Performed at: [address] [id number] PhD Adelfo Shannon Performed By: #### 1 [id number] #### [facility] [address] [place] [address] CA 27 29on 12-26-2024 CA 27 29 32.9 unit/mL Invalid Interpretation Code 0.0-38.6 [facility] Comment on above: Result Comment: [facility] [employer] Immunochemiluminometric Methodology (ICMA) Values obtained with different assay methods or kits cannot be used interchangeably. Results cannot be interpreted as absolute evidence of the presence or absence of malignant disease. Performed at: [address] [id number] PhD Adelfo Shannon Performed By: #### 1 [id number] #### [facility] [address] [place] [address] Free K+L Lt Chains,Qn,Son Free [place] Lt Chains,S 25.2 mg/L High 3.3-19.4 [facility] Comment on above: Performed By: #### 2 [id number] #### [facility] [address] [place] [address] Free Lambda Lt Chains,S 23.1 mg/L Invalid Interpretation Code 5.7-26.3 [facility] Comment on above: Performed By: #### 2 [id number] #### [facility] [address] [place] [address] [place]/Lambda Ratio,S 1.09 Invalid Interpretation Code 0.26-1.65 [facility] Comment on above: Result Comment: Perf ormed at: [address] [id number] PhD Adelfo Shannon Performed By: #### 2 [id number] #### [facility] [address] [place] [address] JULIO and PE, Serumon 12-27-19 25 Albumin [Mass/Vol] 3.7 g/dL Invalid Interpretation Code 2.9-4.4 [facility] Comment on above: Performed By: #### 1 [id number] #### [facility] [address] [place] [address] Albumin/Globulin [Mass ratio] 1.0 {ratio} Invalid Interpretation Code 0.7-1.7 [facility] Comment on above: Performed By: #### 1 [id number] #### [facility] [address] [place] [address] Alpha 1 Glob 0.3 gm/dL Invalid Interpretation Code 0.0-0.4 [facility] Comment on above: Performed By: #### 1 [id number] #### [facility] [address] [place] [address] Alpha 2 Glob 0.8 gm/dL Invalid Interpretation Code 0.4-1.0 [facility] Comment on above: Performed By: #### 1 [id number] #### [facility] [address] [place] [address] Beta Glob 1.2 gm/dL Invalid Interpretation Code 0.7-1.3 [facility] Comment on above: Performed By: #### 1 [id number] #### [facility] [address] [place] [address] Gamma Glob 1.6 gm/dL Invalid Interpretation Code 0.4-1.8 [facility] Comment on above: Performed By: #### 1 [id number] #### [facility] [address] [place] [address] Globulin (S) [Mass/Vol] 3.9 g/dL Invalid Interpretation Code 2.2-3.9 [facility] Comment on above: Performed By: #### 1 [id number] #### [facility] [address] [place] [address] IgA Quant 496 mg/dL High 87-352 [facility] Comment on above: Performed By: #### 1 [id number] #### [facility] [address] [place] [address] IgG Quant 1518 mg/dL Invalid Interpretation Code 586-1602 [facility] Comment on above: Performed By: #### 1 [id number] #### [facility] [address] [place] [address] IgM Quant 116 mg/dL Invalid Interpretation Code 26-217 [facility] Comment on above: Performed By: #### 1 [id number] #### [facility] [address] [place] [address] Immunofix. Result Comment Invalid Interpretation Code [facility] Comment on above: Result Comment: No m onoclonality detected. Performed By: #### 1 [id number] #### [facility] [address] [place] [address] M-Bill Not Observed Invalid Interpretation Code Not Observed [facility] Comment on above: Performed By: #### 1 [id number] #### [facility] [address] [place] [address] Note Comment Invalid Interpretation Code [facility] Comment on above: Result Comment: Prot ein electrophoresis scan will follow via computer, mail, or finance advisor delivery. Performed at: [facility] [address] [id number] PhD Adelfo Shannon Performed By: #### 1 [id number] #### [facility] [address] [place] [address] Protein [Mass/Vol] 7.6 g/dL Invalid Interpretation Code 6.0-8.5 [facility] Comment on above: Performed By: #### 1 [id number] #### [facility] [address] [place] [address] Immunoglobs. A/E/G/Mon 12-26 IgE Quant 27 International_Unit/mL Invalid Interpretation Code 6-495 [facility] Comment on above: Result Comment: Perf ormed at: [facility] [address] [id number] MD José Miguel Shipman Performed By: #### 1 [id number] #### [facility] [address] [place] [address] CBC w/ Auto Diffon 5 Basophil Absolute 0.0 E9/L Normal 0.0-0.2 [facility] Comment on above: Performed By: #### 2 [id number] #### [facility] [address] [place] [address] Basophils/100 WBC (Bld) 0.4 % Normal 0.0-2.0 [facility] Comment on above: Performed By: #### 2 [id number] #### [facility] [address] [place] [address] Eos Absolute 0.0 E9/L Normal 0.0-0.5 [facility] Comment on above: Performed By: #### 2 [id number] #### [facility] [address] [place] [address] Eosinophils/100 WBC (Bld) 0.5 % Normal 0.0-8.0 [facility] Comment on above: Performed By: #### 2 [id number] #### [facility] [address] [place] [address] Erythrocyte distribution width (RBC) [Ratio] 17.0 % High 10.9-14.2 [facility] Comment on above: Performed By: #### 2 [id number] #### [facility] [address] [place] [address] Hematocrit (Bld) [Volume fraction] 39.1 % Normal 34.0-46.0 [facility] Comment on above: Performed By: #### 2 [id number] #### [facility] [address] [place] [address] Hemoglobin (Bld) [Mass/Vol] 12.7 g/dL Normal 12.0-16.0 [facility] Comment on above: Performed By: #### 2 [id number] #### [facility] [address] [place] [address] Lymph Absolute 0.9 E9/L Low 1.0-4.0 [facility] Comment on above: Performed By: #### 2 [id number] #### [facility] [address] [place] [address] Lymphocytes/100 WBC (Bld) 14.5 % Normal 14.0-50.0 [facility] Comment on above: Performed By: #### 2 [id number] #### [facility] [address] [place] [address] MCH (RBC) [Entitic mass] 27.3 pg Normal 27.0-34.0 [facility] Comment on above: Performed By: #### 2 [id number] #### [facility] [address] [place] [address] MCHC (RBC) [Mass/Vol] 32.6 g/dL Normal 31.4-36.0 [facility] Comment on above: Performed By: #### 2 [id number] #### [facility] [address] [place] [address] MCV (RBC) [Entitic vol] 83.7 fL Normal 80.0-100.0 [facility] Comment on above: Performed By: #### 2 [id number] #### [facility] [address] [place] [address] Hardy Absolute 0.8 E9/L Normal 0.2-1.0 [facility] Comment on above: Performed By: #### 2 [id number] #### [facility] [address] [place] [address] Monocytes/100 WBC (Bld) 12.6 % Normal 4.0-14.0 [facility] Comment on above: Performed By: #### 2 [id number] #### [facility] [address] [place] [address] Neutro Absolute 4.7 E9/L Normal 2.0-7.5 [facility] Comment on above: Performed By: #### 2 [id number] #### [facility] [address] [place] [address] Neutro Auto 72.0 % Normal 36.0-75.0 [facility] Comment on above: Performed By: #### 2 [id number] #### [facility] [address] [place] [address] Platelet 277.0 E9/L Normal 150.0-500. 0 [facility] Comment on above: Performed By: #### 2 [id number] #### [facility] [address] [place] [address] Platelet mean volume (Bld) [Entitic vol] 7.9 fL Normal 6.4-10.8 [facility] Comment on above: Performed By: #### 2 092269 #### [facility] [address] [place] [address] RBC 4.7 E12/L Normal 4.3-5.9 [facility] Comment on above: Performed By: #### 2 815538 #### [facility] [address] [place] [address] WBC 6.5 E9/L Normal 4.0-11.0 [facility] Comment on above: Performed By: #### 2 038417 #### [facility] [address] [place] [address] CHEMISTRYOrdered By: SYSTEM SYSTEM on 12-23-2024 Albumin [...] 12-23-2024 Albumin [Mass/Vol] 4.3 g/dL Normal 3.3-5.0 [facility] Comment on above: Performed By: #### 2 719513 #### [facility] [address] [place] [address] Albumin/Globulin [Mass ratio] 1.1 {ratio} Normal 1.1-2.2 [facility] Comment on above: Performed By: #### 2 781510 #### [facility] [address] [place] [address] Alk Phos 49 Int._Unit/L Normal 21-98 [facility] Comment on above: Performed By: #### 2 236641 #### [facility] [address] [place] [address] ALT 10 Int._Unit/L Normal 6-46 [facility] Comment on above: Performed By: #### 2 948004 #### [facility] [address] [place] [address] Anion gap [Moles/Vol] 12 mmol/L Normal 6-16 [facility] Comment on above: Performed By: #### 2 888884 #### [facility] [address] [place] [address] AST 14 Int._Unit/L Normal 5-43 [facility] Comment on above: Performed By: #### 2 616052 #### [facility] [address] [place] [address] Bili Total 0.3 mg/dL Normal 0.0-1.1 [facility] Comment on above: Performed By: #### 2 811569 #### [facility] [address] [place] [address] BUN/Creat Ratio 27 No Units High 10-20 [facility] Comment on above: Performed By: #### 2 747778 #### [facility] [address] [place] [address] Calcium [Mass/Vol] 9.8 mg/dL Normal 8.9-11.1 [facility] Comment on above: Performed By: #### 2 721038 #### [facility] [address] [place] [address] Chloride [Moles/Vol] 102 mmol/L Normal 101-[address] [facility] Comment on above: Performed By: #### 2 497294 #### [facility] [address] [place] [address] CO2 [Moles/Vol] 29 mmol/L Normal 21-31 [facility] Comment on above: Performed By: #### 2 097153 #### [facility] [address] [place] [address] Creatinine [Mass/Vol] 0.7 mg/dL Normal 0.5-1.3 [facility] Comment on above: Performed By: #### 2 246039 #### [facility] [address] [place] [address] Globulin (S) [Mass/Vol] 3.9 g/dL Normal 1.4-4.0 [facility] Comment on above: Performed By: #### 2 292226 #### [facility] [address] [place] [address] Glucose [Mass/Vol] 87 mg/dL Normal 55-199 [facility] Comment on above: Performed By: #### 2 480485 #### [facility] [address] [place] [address] Potassium [Moles/Vol] 4.5 mmol/L Normal 3.5-5.3 [facility] Comment on above: Performed By: #### 2 378484 #### [facility] [address] [place] [address] Protein [Mass/Vol] 8.2 g/dL High 6.0-7.8 [facility] Comment on above: Performed By: #### 2 568139 #### [facility] [address] [place] [address] Sodium [Moles/Vol] 138 mmol/L Normal 135-145 [facility] Comment on above: Performed By: #### 2 321239 #### [facility] [address] [place] [address] Urea nitrogen [Mass/Vol] 19 mg/dL Normal 5-21 [facility] Comment on above: Performed By: #### 2 053285 #### [facility] [address] [place] [address] HEMATOLOGYOrdered By: SYSTEM SYSTEM on 12-23-2024 Basophils/100 [...] 12-23-2024 eGFR 95 mL/min/1.73 m2 Normal >=59 [facility] Comment on above: Performed By: #### 1 7916268 #### [facility] [address] [place] [address] General Surgery Office/Clini c Noteon 12-10-2024 General Surgery Office/Clinic Note General Surgery Office/Clinic Note Chief Complaint 6 month follow up HPI Staff Emeli is a 64 y.o. female here for 6 month follow up Hx of left breast cancer s/p Bypro Node biopsy of left done 04/11/2023 Denies [...] E&M of Est. Patient Low 20-29 Min 39907 2. Breast cancer, left (C50.912: Malignant neoplasm of unspecified site of left female breast) Ordered: E&M of Est. Patient Low 20-29 Min 51902 3. Encounter for follow-up surveillance of breast cancer (Z08: Encounter for follow-up examination after completed treatment for malignant neoplasm) Patient will management of multiple myeloma with the medical oncology service, she will follow-up with us in 6 months with repeat mammogram Ordered: E&M of Est. Patient Low 20-29 Min 24500 Personal history of malignant neoplasm of breast (Z85.3: Personal history of malignant neoplasm of breast) As above Portions of this record may have been created with voice recognition artificial intelligence software, specifically [employer], [employer] and or [employer]. Substitutions may have occurred due to [...] 50,000 intl units (1.25 mg) oral capsule, [address] International_Unit= 1 cap(s), Oral, Daily Allergies Eliquis [...] formulation 05/09/2016 (more content not included)... Normal [facility] Comment on above: Result Comment: Elec tronically Signed By: Aurora RICE, Lauro Peacock\Date and Time Signed: 12/10/24 14:53 EDT Basic metabolic 2000 panelon 11-15-2024 Anion gap [Moles/Vol] 9 mmol/L Normal 8-15 [facility] Comment on above: Order Comment: Speci men Type: BLOOD SPECIMENOrdering Facility: [facility] Address: [address] [place] [address] Performed By: #### 2 4321-2, 50563-8 ####[facility] [id number] [place] [address] [place] Calcium [Mass/Vol] 10.0 mg/dL Normal 8.5-10.2 [facility] Comment on above: Order Comment: Speci men Type: BLOOD SPECIMENOrdering Facility: [facility] Address: [address] [place] [address] Performed By: #### 2 4321-2, 39961-0 ####[facility] [id number] [place] [id number] [place] Chloride [Moles/Vol] 104 mmol/L Normal 98-107 [facility] Comment on above: Order Comment: Speci men Type: BLOOD SPECIMENOrdering Facility: [facility] Address: [address] [place] [address] Performed By: #### 2 4321-2, 53902-9 ####[facility] [id number] [address] [address] [place] CO2 [Moles/Vol] 27 mmol/L Normal 22-30 [facility] Comment on above: Order Comment: Speci men Type: BLOOD SPECIMENOrdering Facility: [facility] Address: [address] [place] [address] Performed By: #### 2 432-2, 64808-4 ####[facility] [id number] [place] [address] [place] Creatinine [Mass/Vol] 0.74 mg/dL Normal 0.58-0.96 [facility] Comment on above: Order Comment: Speci men Type: BLOOD SPECIMENOrdering Facility: [facility] Address: [address] [place] [address] Performed By: #### 2 432-, ####[facility] [id number] [place] [address] [place] Creatinine and Glomerular filtration rate.predicted panel (S/P/Bld) 89 mL/min/1.73m??? Normal >=60 [facility] Comment on above: Order Comment: Speci men Type: BLOOD SPECIMENOrdering Facility: [facility] Address: [address] [place] [address] Result Comment: Lexie mated Glomerular Filtration Rate [...] actual GFR. Performed By: #### 2 4321-2, 94411-1 ####[facility] [id number] [address] [address] [place] Glucose [Mass/Vol] 95 mg/dL Normal 74-99 [facility] Comment on above: Order Comment: Speci men Type: BLOOD SPECIMENOrdering Facility: [facility] Address: [address] [place] [address] Result Comment: The [place] [employer] (ADA) provides guidance for cutoff [...] Standards of Medical Care in Diabetes 2016, [place] [employer]. Diabetes Care. 2016.39(Suppl 1). Performed By: #### 2 432-, 41666-4 ####[facility] [id number] [place] [address] [place] Potassium [Moles/Vol] 4.5 mmol/L Normal 3.7-5.1 [facility] Comment on above: Order Comment: Neoi men Type: BLOOD SPECIMENOrdering Facility: [facility] Address: [address] [place] [address] Performed By: #### 2 432-, 99901-1 ####[facility] [id number] [place] [address] [place] Sodium [Moles/Vol] 140 mmol/L Normal 136-144 [facility] Comment on above: Order Comment: Speci men Type: BLOOD SPECIMENOrdering Facility: [facility] Address: [address] [place] [address] Performed By: #### 2 4321-, 61100-9 ####[facility] [id number] [place] [address] [place] Urea nitrogen [Mass/Vol] 19 mg/dL Normal 7-21 [facility] Comment on above: Order Comment: Speci men Type: BLOOD SPECIMENOrdering Facility: [facility] Address: [address] [place] [address] Performed By: #### 2 4321-2, 90973-4 ####[facility] [id number] [place] [address] [place] CBC panel Auto (Bld)on 11-15 Erythrocyte distribution width (RBC) [Ratio] 14.3 % Normal 11.5-15.0 [facility] Comment on above: Order Comment: Speci men Type: BLOOD SPECIMENOrdering Facility: [facility] Address: [address] [place] [address] Performed By: #### 5 8410-2 ####[facility] [id number] [address] [place] Hematocrit (Bld) [Volume fraction] 38.1 % Normal 36.0-46.0 [facility] Comment on above: Order Comment: Speci men Type: BLOOD SPECIMENOrdering Facility: [facility] Address: [address] [place] [address] Performed By: #### 5 8410-2 ####[facility] [id number] [address] [place] Hemoglobin (Bld) [Mass/Vol] 11.7 g/dL Normal 11.5-15.5 [facility] Comment on above: Order Comment: Speci men Type: BLOOD SPECIMENOrdering Facility: [facility] Address: [address] [place] [address] Performed By: #### 5 8410-2 ####[facility] [id number] [place] [id number] [place] MCH (RBC) [Entitic mass] 26.8 pg Normal 26.0-34.0 [facility] Comment on above: Order Comment: Speci men Type: BLOOD SPECIMENOrdering Facility: [facility] Address: [address] [place] [address] Performed By: #### 5 8410-2 ####[facility] [id number] [place] [address] [place] MCHC (RBC) [Mass/Vol] 30.7 g/dL Normal 30.5-36.0 [facility] Comment on above: Order Comment: Speci men Type: BLOOD SPECIMENOrdering Facility: [facility] Address: [address] [place] [address] Performed By: #### 5 8410-2 ####[facility] [id number] [place] [address] [place] MCV (RBC) [Entitic vol] 87.4 fL Normal 80.0-100.0 [facility] Comment on above: Order Comment: Speci men Type: BLOOD SPECIMENOrdering Facility: [facility] Address: [address] [place] [address] Performed By: #### 5 8410-2 ####[facility] [id number] [place] [address] [place] Nucleated RBC (Bld) [#/Vol] 10*3/uL Normal <0.01 [facility] Comment on above: Order Comment: Speci men Type: BLOOD SPECIMENOrdering Facility: [facility] Address: [address] [place] [address] Performed By: #### 5 8410-2 ####[facility] [id number] [place] [address] [place] Platelet mean volume (Bld) [Entitic vol] 9.8 fL Normal 9.0-12.7 [facility] Comment on above: Order Comment: Speci men Type: BLOOD SPECIMENOrdering Facility: [facility] Address: [address] [place] [address] Performed By: #### 5 8410-2 ####[facility] [id number] [address] [address] [place] Platelets (Bld) [#/Vol] 281 10*3/uL Normal 150-400 [facility] Comment on above: Order Comment: Speci men Type: BLOOD SPECIMENOrdering Facility: [facility] Address: [address] [place] [address] Performed By: #### 5 8410-2 ####[facility] [id number] [address] [address] [place] RBC (Bld) [#/Vol] 4.36 10*6/uL Normal 3.90-5.20 [facility] Comment on above: Order Comment: Speci men Type: BLOOD SPECIMENOrdering Facility: [facility] Address: [address] [place] [address] Performed By: #### 5 8410-2 ####[facility] [id number] [place] [address] [place] WBC (Bld) [#/Vol] 6.49 10*3/uL Normal 3.70-11.00 [facility] Comment on above: Order Comment: Speci men Type: BLOOD SPECIMENOrdering Facility: [facility] Address: [address] [place] [address] Performed By: #### 5 8410-2 ####[facility] [id number] [place] [address] [place] CNOVon 11-15-2024 CNOV Normal [facility] ECG COMPLETEon 11-15-2024 ECG COMPLETE Normal [facility] Lipid 1996 panelon 5 Cholesterol [Mass/Vol] 171 mg/dL Normal <200 [facility] Comment on above: Order Comment: Speci men Type: BLOOD SPECIMENOrdering Facility: [facility] Address: [address] [place] [address] Result Comment: <200 mg/dL, Desirable 200-239 mg/dL, Borderline high>239 mg/dL, High Performed By: #### 2 4321-2, 43271-9 ####[facility] [id number] [address] [address] [place] Cholesterol in HDL [Mass/Vol] 62 mg/dL Normal >39 [facility] Comment on above: Order Comment: Speci men Type: BLOOD SPECIMENOrdering Facility: [facility] Address: [address] [place] [address] Result Comment: 40-5 9 mg/dL, Acceptable>59 mg/dL, High: Negative risk factor for coronary heart disease<40 mg/dL, Low: Positive risk factor for coronary heart disease Performed By: #### 2 432-2, 50989-6 ####[facility] [id number] [address] [address] [place] Cholesterol in LDL [Mass/Vol] 95 mg/dL Normal <100 [facility] Comment on above: Order Comment: Speci men Type: BLOOD SPECIMENOrdering Facility: [facility] Address: [address] [place] [address] Result Comment: <100 mg/dL, Optimal 100-129 mg/dL, Near optimal/above optimal 130-159 mg/dL, Borderline high 160-189 mg/dL, High>189 mg/dL, Very highSecondary prevention optimal LDL Cholesterol levels are recommended to be <70 mg/dLLDL cholesterol is calculated using the Lowery-NIH equation. Performed By: #### 2 4321-2, 32543-8 ####[facility] [id number] [address] [address] [place] Cholesterol in LDL/Cholesterol in HDL [Mass ratio] 1.53 {ratio} Normal <2.54 [facility] Comment on above: Order Comment: Speci men Type: BLOOD SPECIMENOrdering Facility: [facility] Address: [address] [place] [address] Result Comment: Reffrancheska maciel:1. National Cholesterol Education Program ATP III Guideline At-A-Glance Quick Desk Reference: National Heart, Lung, and Blood Watkins. National Institutes of Health. 2001: NIH Publication No. 01-3305.2. An International Atherosclerosis Society position paper: global recommendations for the management of dyslipidemia: executive summary, Atherosclerosis. 2014: 232(2):410-413. Performed By: #### 2 1-2, 47195-3 ####[facility] [id number] [facility] [place] [id number] [place] Cholesterol in VLDL [Mass/Vol] 12 mg/dL Normal <30 [facility] Comment on above: Order Comment: Speci men Type: BLOOD SPECIMENOrdering Facility: [facility] Address: [address] [place] [address] Performed By: #### 2 4320-, 02534-9 ####[facility] [id number] [place] [address] [place] Cholesterol non HDL [Mass/Vol] 109 mg/dL Normal <130 [facility] Comment on above: Order Comment: Speci men Type: BLOOD SPECIMENOrdering Facility: [facility] Address: [address] [place] [address] Result Comment: <130 mg/dL, Optimal 130-159 mg/dL, Near optimal/above optimal 160-189 mg/dL, Borderline high 190-219 mg/dL, High>219 mg/dL, Very highSecondary prevention optimal non HDL Cholesterol levels are recommended to be <100 mg/dL Performed By: #### 2 4320-, 40316-8 ####[facility] [id number] [address] [address] [place] Cholesterol.total/Cho lesterol in HDL [Mass ratio] 2.76 {ratio} Normal <5.10 [facility] Comment on above: Order Comment: Speci men Type: BLOOD SPECIMENOrdering Facility: [facility] Address: [address] [place] [address] Performed By: #### 2 4320-2, 42620-5 ####[facility] [id number] [address], [facility] [place] FASTING TIME 0 hrs Normal [facility] Comment on above: Order Comment: Speci men Type: BLOOD SPECIMENOrdering Facility: [facility] Address: [address] [place] [address] Performed By: #### 2 4321-2, 34915-7 ####[facility] [id number] [address], [place] [address] [place] Triglyceride [Mass/Vol] 73 mg/dL Normal <150 [facility] Comment on above: Order Comment: Speci men Type: BLOOD SPECIMENOrdering Facility: [facility] Address: [address] [place] [address] Result Comment: <150 mg/dL, Normal 150-199 mg/dL, Borderline high 200-499 mg/dL, High>499 mg/dL, Very high Performed By: #### 2 4321-2, 84679-8 ####[facility] [id number] [address], [place] [address] [place] CNPNon 10-25-2024 CNPN Normal [facility] CBC panel Auto (Bld)on 09-24 Erythrocyte distribution width (RBC) [Ratio] 15.1 % High 11.5-15.0 [facility] Comment on above: Order Comment: Speci men Type: BLOOD SPECIMENOrdering Facility: [facility] Address: [address] [place] [address] Performed By: #### 5 8410-2 ####[facility] [id number] [address], [facility] [place] Hematocrit (Bld) [Volume fraction] 32.6 % Low 36.0-46.0 [facility] Comment on above: Order Comment: Speci men Type: BLOOD SPECIMENOrdering Facility: [facility] Address: [address] [place] [address] Performed By: #### 5 8410-2 ####[facility] [id number] [place] [address] [place] Hemoglobin (Bld) [Mass/Vol] 10.1 g/dL Low 11.5-15.5 [facility] Comment on above: Order Comment: Speci men Type: BLOOD SPECIMENOrdering Facility: [facility] Address: [address] [place] [address] Performed By: #### 5 8410-2 ####[facility] [id number] [place] [address] [place] MCH (RBC) [Entitic mass] 27.9 pg Normal 26.0-34.0 [facility] Comment on above: Order Comment: Speci men Type: BLOOD SPECIMENOrdering Facility: [facility] Address: [address] [place] [address] Performed By: #### 5 8410-2 ####[facility] [id number] [address] [place] MCHC (RBC) [Mass/Vol] 31.0 g/dL Normal 30.5-36.0 [facility] Comment on above: Order Comment: Speci men Type: BLOOD SPECIMENOrdering Facility: [facility] Address: [address] [place] [address] Performed By: #### 5 8410-2 ####[facility] [id number] [place] [address] [place] MCV (RBC) [Entitic vol] 90.1 fL Normal 80.0-100.0 [facility] Comment on above: Order Comment: Speci men Type: BLOOD SPECIMENOrdering Facility: [facility] Address: [address] [place] [address] Performed By: #### 5 8410-2 ####[facility] [id number] [place] [address] [place] Nucleated RBC (Bld) [#/Vol] 10*3/uL Normal <0.01 [facility] Comment on above: Order Comment: Speci men Type: BLOOD SPECIMENOrdering Facility: [facility] Address: [address] [place] [address] Performed By: #### 5 8410-2 ####[facility] [id number] [place] [address] [place] Platelet mean volume (Bld) [Entitic vol] 9.0 fL Normal 9.0-12.7 [facility] Comment on above: Order Comment: Speci men Type: BLOOD SPECIMENOrdering Facility: [facility] Address: [address] [place] [address] Performed By: #### 5 8410-2 ####[facility] [id number] [place] [address] [place] Platelets (Bld) [#/Vol] 428 10*3/uL High 150-400 [facility] Comment on above: Order Comment: Speci men Type: BLOOD SPECIMENOrdering Facility: [facility] Address: [address] [place] [address] Performed By: #### 5 8410-2 ####[facility] [id number] [place] [address] [place] RBC (Bld) [#/Vol] 3.62 10*6/uL Low 3.90-5.20 [facility] Comment on above: Order Comment: Speci men Type: BLOOD SPECIMENOrdering Facility: [facility] Address: [address] [place] [address] Performed By: #### 5 8410-2 ####[facility] [id number] [place] [address] [place] WBC (Bld) [#/Vol] 5.10 10*3/uL Normal 3.70-11.00 [facility] Comment on above: Order Comment: Speci men Type: BLOOD SPECIMENOrdering Facility: [facility] Address: [address] [place] [address] Performed By: #### 5 8410-2 ####[facility] [id number] [address] [address] [place] CNOVon 09-24-2024 CNOV Normal [facility] CNPNon 09-24-2024 CNPN Normal [facility] Comprehensive metabolic 2000 panelon 09-24-2024 Albumin [Mass/Vol] 3.8 g/dL Low 3.9-4.9 [facility] Comment on above: Order Comment: Speci men Type: BLOOD SPECIMENOrdering Facility: [facility] Address: [address] [place], [place] [address] Performed By: #### 2 4323-8 ####[facility] [id number] [address] [place] [address] [place] ALP [Catalytic activity/Vol] 68 U/L Normal 34-123 [facility] Comment on above: Order Comment: Speci men Type: BLOOD SPECIMENOrdering Facility: [facility] Address: [address] [place], [place] [address] Performed By: #### 2 4323-8 ####[facility] [id number] [address] [place] [address] [place] ALT [Catalytic activity/Vol] 7 U/L Normal 7-38 [facility] Comment on above: Order Comment: Speci men Type: BLOOD SPECIMENOrdering Facility: [facility] Address: [address] [place] [address] Performed By: #### 2 4323-8 ####[facility] [id number] [address] [address] [place] Anion gap [Moles/Vol] 12 mmol/L Normal 8-15 [facility] Comment on above: Order Comment: Speci men Type: BLOOD SPECIMENOrdering Facility: [facility] Address: [address] [place], [place] [address] Performed By: #### 2 4323-8 ####[facility] [id number] [place] [address] [place] AST [Catalytic activity/Vol] 17 U/L Normal 13-35 [facility] Comment on above: Order Comment: Speci men Type: BLOOD SPECIMENOrdering Facility: [facility] Address: [address] [place] [address] Performed By: #### 2 4323-8 ####[facility] [id number] [place] [id number] [place] Bilirubin [Mass/Vol] 0.2 mg/dL Normal 0.2-1.3 [facility] Comment on above: Order Comment: Speci men Type: BLOOD SPECIMENOrdering Facility: [facility] Address: [address] [place] [address] Performed By: #### 2 4323-8 ####[facility] [id number] [place] [address] [place] Calcium [Mass/Vol] 10.0 mg/dL Normal 8.5-10.2 [facility] Comment on above: Order Comment: Speci men Type: BLOOD SPECIMENOrdering Facility: [facility] Address: [address] [place] [address] Performed By: #### 2 4323-8 ####[facility] [id number] [place] [id number] [place] Chloride [Moles/Vol] 107 mmol/L Normal 98-107 [facility] Comment on above: Order Comment: Speci men Type: BLOOD SPECIMENOrdering Facility: [facility] Address: [address] [place] [address] Performed By: #### 2 4323-8 ####[facility] [id number] [place] [id number] [place] CO2 [Moles/Vol] 24 mmol/L Normal 22-30 [facility] Comment on above: Order Comment: Speci men Type: BLOOD SPECIMENOrdering Facility: [facility] Address: [address] [place], [place] [address] Performed By: #### 2 4323-8 ####[facility] [id number] [address] [address] [place] Creatinine [Mass/Vol] 0.66 mg/dL Normal 0.58-0.96 [facility] Comment on above: Order Comment: Speci men Type: BLOOD SPECIMENOrdering Facility: [facility] Address: [address] [place] [address] Performed By: #### 2 4323-8 ####[facility] [id number] [place] [address] [place] Creatinine and Glomerular filtration rate.predicted panel (S/P/Bld) 97 mL/min/1.73m??? Normal >=60 [facility] Comment on above: Order Comment: Speci men Type: BLOOD SPECIMENOrdering Facility: [facility] Address: [address] [place] [address] Result Comment: Lexie mated Glomerular Filtration Rate [...] actual GFR. Performed By: #### 2 4323-8 ####[facility] [id number] [address] [address] [place] Glucose [Mass/Vol] 73 mg/dL Low 74-99 [facility] Comment on above: Order Comment: Speci men Type: BLOOD SPECIMENOrdering Facility: [facility] Address: [address] [place] [address] Result Comment: The [place] [employer] (ADA) provides guidance for cutoff [...] Standards of Medical Care in Diabetes 2016, [place] [employer]. Diabetes Care. 2016.39(Suppl 1). Performed By: #### 2 4323-8 ####[facility] [id number] [place] [address] [place] Potassium [Moles/Vol] 4.4 mmol/L Normal 3.7-5.1 [facility] Comment on above: Order Comment: Speci men Type: BLOOD SPECIMENOrdering Facility: [facility] Address: [address] [place] [address] Performed By: #### 2 4323-8 ####[facility] [id number] [place] [address] [place] Protein [Mass/Vol] 7.8 g/dL Normal 6.3-8.0 [facility] Comment on above: Order Comment: Speci men Type: BLOOD SPECIMENOrdering Facility: [facility] Address: [address] [place] [address] Performed By: #### 2 4323-8 ####[facility] [id number] [place] [id number] [place] Sodium [Moles/Vol] 143 mmol/L Normal 136-144 [facility] Comment on above: Order Comment: Speci men Type: BLOOD SPECIMENOrdering Facility: [facility] Address: [address] [place] [address] Performed By: #### 2 4323-8 ####[facility] [id number] [place] [id number] [place] Urea nitrogen [Mass/Vol] 18 mg/dL Normal 7-21 [facility] Comment on above: Order Comment: Speci men Type: BLOOD SPECIMENOrdering Facility: [facility] Address: [address] [place] [id number] Performed By: #### 2 4323-8 ####[facility] [id number] [place] [address] [place] ECG COMPLETEon 09-24-2024 ECG COMPLETE Normal [facility] XR CHEST 2V FRONTAL/LATon XR CHEST 2V FRONTAL/LAT Normal [facility] XR Chest PA and Lateralon IMPRESSION: See result. [employer] Software Development Engineer: CALLI Transcribe Date/Time: Sep 24 2024 2:14P Dictated by : RENETTA LATHAM DO This examination was interpreted and the report reviewed and electronically signed by: ELISEO HERNANDEZ MD on Sep 24 2024 5:02PM [facility] DIVISION OF RADIOLOGY * * *Final [...] medial sternotomy wires. DIVISION OF RADIOLOGY Provider, Ccf Cher Merritt - 09/24/2024 * * *Final Report* * [...] medial sternotomy wires. IMPRESSION IMPRESSION: See result. [employer] Software Development Engineer: PSCB Transcribe Date/Time: Sep 24 2024 2:14P Dictated by : RENETTA LATHAM DO This examination was interpreted and the report reviewed and electronically signed by: ELISEO HERNANDEZ MD on Sep 24 2024 5:02PM EST [facility] Radiology Study observation (narrative) [facility] XR Chest PA and LateralOrder ed By: Ccf Provider on 09-24-2024 [facility] CBC panel Auto (Bld)on 09-14 Erythrocyte distribution width (RBC) [Ratio] 15.9 % High 11.5-15.0 [facility] Comment on above: Order Comment: Speci men Type: BLOOD SPECIMENOrdering Facility: [facility] Address: [address] [place] [address] Performed By: #### 5 8410-2 ####[facility] [id number] [place] [address] [place] Hematocrit (Bld) [Volume fraction] 29.2 % Low 36.0-46.0 [facility] Comment on above: Order Comment: Speci men Type: BLOOD SPECIMENOrdering Facility: [facility] Address: [address] [place] [address] Performed By: #### 5 8410-2 ####[facility] [id number] [place] [address] [place] Hemoglobin (Bld) [Mass/Vol] 9.1 g/dL Low 11.5-15.5 [facility] Comment on above: Order Comment: Speci men Type: BLOOD SPECIMENOrdering Facility: [facility] Address: [address] [place] [address] Performed By: #### 5 8410-2 ####[facility] [id number] [place] [address] [place] MCH (RBC) [Entitic mass] 27.7 pg Normal 26.0-34.0 [facility] Comment on above: Order Comment: Speci men Type: BLOOD SPECIMENOrdering Facility: [facility] Address: [address] [place] [address] Performed By: #### 5 8410-2 ####[facility] [id number] [place] [address] [place] MCHC (RBC) [Mass/Vol] 31.2 g/dL Normal 30.5-36.0 [facility] Comment on above: Order Comment: Speci men Type: BLOOD SPECIMENOrdering Facility: [facility] Address: [address] [place] [address] Performed By: #### 5 8410-2 ####[facility] [id number] [place] [address] [place] MCV (RBC) [Entitic vol] 89.0 fL Normal 80.0-100.0 [facility] Comment on above: Order Comment: Speci men Type: BLOOD SPECIMENOrdering Facility: [facility] Address: [address] [place] [address] Performed By: #### 5 8410-2 ####[facility] [id number] [place] [address] [place] Nucleated RBC (Bld) [#/Vol] 10*3/uL Normal <0.01 [facility] Comment on above: Order Comment: Speci men Type: BLOOD SPECIMENOrdering Facility: [facility] Address: [address] [place] [address] Performed By: #### 5 8410-2 ####[facility] [id number] [place] [address] [place] Platelet mean volume (Bld) [Entitic vol] 9.8 fL Normal 9.0-12.7 [facility] Comment on above: Order Comment: Speci men Type: BLOOD SPECIMENOrdering Facility: [facility] Address: [address] [place] [address] Performed By: #### 5 8410-2 ####[facility] [id number] [place] [address] [place] Platelets (Bld) [#/Vol] 211 10*3/uL Normal 150-400 [facility] Comment on above: Order Comment: Speci men Type: BLOOD SPECIMENOrdering Facility: [facility] Address: [address] [place] [address] Performed By: #### 5 8410-2 ####[facility] [id number] [place] [id number] [place] RBC (Bld) [#/Vol] 3.28 10*6/uL Low 3.90-5.20 [facility] Comment on above: Order Comment: Speci men Type: BLOOD SPECIMENOrdering Facility: [facility] Address: [address] [place] [address] Performed By: #### 5 8410-2 ####[facility] [id number] [address] [place] [address] [place] WBC (Bld) [#/Vol] 7.17 10*3/uL Normal 3.70-11.00 [facility] Comment on above: Order Comment: Speci men Type: BLOOD SPECIMENOrdering Facility: [facility] Address: [address] [place] [address] Performed By: #### 5 8410-2 ####[facility] [id number] [place] [id number] [place] CONSULT PROGon 09-14-2024 CONSULT PROG Normal [facility] Comprehensive metabolic 2000 panelon 09-14-2024 Albumin [Mass/Vol] 3.2 g/dL Low 3.9-4.9 [facility] Comment on above: Order Comment: Speci men Type: BLOOD SPECIMENOrdering Facility: [facility] Address: [address] [place] [address] Performed By: #### 2 4323-8 ####[facility] [id number] [address] [address] [place] ALP [Catalytic activity/Vol] 45 U/L Normal 34-123 [facility] Comment on above: Order Comment: Speci men Type: BLOOD SPECIMENOrdering Facility: [facility] Address: [address] [place] [address] Performed By: #### 2 4323-8 ####[facility] [id number] [address] [address] [place] ALT [Catalytic activity/Vol] 9 U/L Normal 7-38 [facility] Comment on above: Order Comment: Speci men Type: BLOOD SPECIMENOrdering Facility: [facility] Address: [address] [place] [address] Performed By: #### 2 4323-8 ####[facility] [id number] [address] [address] [place] Anion gap [Moles/Vol] 8 mmol/L Normal 8-15 [facility] Comment on above: Order Comment: Speci men Type: BLOOD SPECIMENOrdering Facility: [facility] Address: [address] [place] [address] Performed By: #### 2 4323-8 ####[facility] [id number] [facility] [place] [id number] [place] AST [Catalytic activity/Vol] 16 U/L Normal 13-35 [facility] Comment on above: Order Comment: Speci men Type: BLOOD SPECIMENOrdering Facility: [facility] Address: [address] [place] [address] Performed By: #### 2 4323-8 ####[facility] [id number] [place] [id number] [place] Bilirubin [Mass/Vol] mg/dL Low 0.2-1.3 [facility] Comment on above: Order Comment: Speci men Type: BLOOD SPECIMENOrdering Facility: [facility] Address: [address] [place] [address] Performed By: #### 2 4323-8 ####[facility] [id number] [place] [id number] [place] Calcium [Mass/Vol] 9.4 mg/dL Normal 8.5-10.2 [facility] Comment on above: Order Comment: Speci men Type: BLOOD SPECIMENOrdering Facility: [facility] Address: [address] [place] [address] Performed By: #### 2 4323-8 ####[facility] [id number] [place] [id number] [place] Chloride [Moles/Vol] 104 mmol/L Normal 98-107 [facility] Comment on above: Order Comment: Speci men Type: BLOOD SPECIMENOrdering Facility: [facility] Address: [address] [place] [address] Performed By: #### 2 4323-8 ####[facility] [id number] [place] [id number] [place] CO2 [Moles/Vol] 27 mmol/L Normal 22-30 [facility] Comment on above: Order Comment: Speci men Type: BLOOD SPECIMENOrdering Facility: [facility] Address: [address] [place] [address] Performed By: #### 2 4323-8 ####[facility] [id number] [place] [id number] [place] Creatinine [Mass/Vol] 0.57 mg/dL Low 0.58-0.96 [facility] Comment on above: Order Comment: Speci men Type: BLOOD SPECIMENOrdering Facility: [facility] Address: [address] [place] [address] Performed By: #### 2 4323-8 ####[facility] [id number] [place] [address] [place] Creatinine and Glomerular filtration rate.predicted panel (S/P/Bld) 101 mL/min/1.73m??? Normal >=60 [facility] Comment on above: Order Comment: Speci men Type: BLOOD SPECIMENOrdering Facility: [facility] Address: [address] [place] [address] Result Comment: Lexie mated Glomerular Filtration Rate [...] actual GFR. Performed By: #### 2 4323-8 ####[facility] [id number] [address] [address] [place] Glucose [Mass/Vol] 111 mg/dL High 74-99 [facility] Comment on above: Order Comment: Speci men Type: BLOOD SPECIMENOrdering Facility: [facility] Address: [address] [place], [place] [phone] Result Comment: The [place] [employer] (ADA) provides guidance for cutoff [...] Standards of Medical Care in Diabetes 2016, [place] [employer]. Diabetes Care. 2016.39(Suppl 1). Performed By: #### 2 4323-8 ####[facility] [id number] [place] [address] [place] Potassium [Moles/Vol] 4.4 mmol/L Normal 3.7-5.1 [facility] Comment on above: Order Comment: Speci men Type: BLOOD SPECIMENOrdering Facility: [facility] Address: [address] [place] [address] Performed By: #### 2 4323-8 ####[facility] [id number] [address] [address] [place] Protein [Mass/Vol] 6.4 g/dL Normal 6.3-8.0 [facility] Comment on above: Order Comment: Speci men Type: BLOOD SPECIMENOrdering Facility: [facility] Address: [address] [place], [place] [address] Performed By: #### 2 4323-8 ####[facility] [id number] [address] [address] [place] Sodium [Moles/Vol] 139 mmol/L Normal 136-144 [facility] Comment on above: Order Comment: Speci men Type: BLOOD SPECIMENOrdering Facility: [facility] Address: [address] [place] [address] Performed By: #### 2 4323-8 ####[facility] [id number] [place] [address] [place] Urea nitrogen [Mass/Vol] 24 mg/dL High 7-21 [facility] Comment on above: Order Comment: Speci men Type: BLOOD SPECIMENOrdering Facility: [facility] Address: [address] [place] [address] Performed By: #### 2 4323-8 ####[facility] [id number] [place] [address] [place] XR CHEST 1V FRONTAL PORTon 0 09-14-2024 XR CHEST 1V FRONTAL PORT Normal [facility] CBC panel Auto (Bld)on 09-13 Erythrocyte distribution width (RBC) [Ratio] 15.8 % High 11.5-15.0 [facility] Comment on above: Order Comment: Speci men Type: BLOOD SPECIMENOrdering Facility: [facility] Address: [address] [place] [address] Performed By: #### 5 8410-2 ####[facility] [id number] [place] [address] [place] Hematocrit (Bld) [Volume fraction] 29.3 % Low 36.0-46.0 [facility] Comment on above: Order Comment: Speci men Type: BLOOD SPECIMENOrdering Facility: [facility] Address: [address] [place] [address] Performed By: #### 5 8410-2 ####[facility] [id number] [place] [address] [place] Hemoglobin (Bld) [Mass/Vol] 9.1 g/dL Low 11.5-15.5 [facility] Comment on above: Order Comment: Speci men Type: BLOOD SPECIMENOrdering Facility: [facility] Address: [address] [place] [address] Performed By: #### 5 8410-2 ####[facility] [id number] [place] [address] [place] MCH (RBC) [Entitic mass] 27.7 pg Normal 26.0-34.0 [facility] Comment on above: Order Comment: Speci men Type: BLOOD SPECIMENOrdering Facility: [facility] Address: [address] [place] [address] Performed By: #### 5 8410-2 ####[facility] [id number] [place] [address] [place] MCHC (RBC) [Mass/Vol] 31.1 g/dL Normal 30.5-36.0 [facility] Comment on above: Order Comment: Speci men Type: BLOOD SPECIMENOrdering Facility: [facility] Address: [address] [place] [address] Performed By: #### 5 8410-2 ####[facility] [id number] [place] [address] [place] MCV (RBC) [Entitic vol] 89.3 fL Normal 80.0-100.0 [facility] Comment on above: Order Comment: Speci men Type: BLOOD SPECIMENOrdering Facility: [facility] Address: [address] [place] [address] Performed By: #### 5 8410-2 ####[facility] [id number] [place] [address] [place] Nucleated RBC (Bld) [#/Vol] 10*3/uL Normal <0.01 [facility] Comment on above: Order Comment: Speci men Type: BLOOD SPECIMENOrdering Facility: [facility] Address: [address] [place] [address] Performed By: #### 5 8410-2 ####[facility] [id number] [address] [address] [place] Platelet mean volume (Bld) [Entitic vol] 10.0 fL Normal 9.0-12.7 [facility] Comment on above: Order Comment: Speci men Type: BLOOD SPECIMENOrdering Facility: [facility] Address: [address] [place] [address] Performed By: #### 5 8410-2 ####[facility] [id number] [place] [address] [place] Platelets (Bld) [#/Vol] 182 10*3/uL Normal 150-400 [facility] Comment on above: Order Comment: Speci men Type: BLOOD SPECIMENOrdering Facility: [facility] Address: [address] [place] [address] Performed By: #### 5 8410-2 ####[facility] [id number] [place] [address] [place] RBC (Bld) [#/Vol] 3.28 10*6/uL Low 3.90-5.20 [facility] Comment on above: Order Comment: Speci men Type: BLOOD SPECIMENOrdering Facility: [facility] Address: [address] [place] [address] Performed By: #### 5 8410-2 ####[facility] [id number] [place] [address] [place] WBC (Bld) [#/Vol] 4.53 10*3/uL Normal 3.70-11.00 [facility] Comment on above: Order Comment: Speci men Type: BLOOD SPECIMENOrdering Facility: [facility] Address: [address] [place] [address] Performed By: #### 5 8410-2 ####[facility] [id number] [place] [id number] [place] CONSULT PROGon 09-13-2024 CONSULT PROG Normal [facility] metabolic 2000 panelon 09-13-2024 Albumin [Mass/Vol] 3.4 g/dL Low 3.9-4.9 [facility] Comment on above: Order Comment: Speci men Type: BLOOD SPECIMENOrdering Facility: [facility] Address: [address] [place] [address] Performed By: #### 2 4323-8 ####[facility] [id number] [place] [address] [place] ALP [Catalytic activity/Vol] 43 U/L Normal 34-123 [facility] Comment on above: Order Comment: Speci men Type: BLOOD SPECIMENOrdering Facility: [facility] Address: [address] [place] [address] Performed By: #### 2 4323-8 ####[facility] [id number] [place] [address] [place] ALT [Catalytic activity/Vol] 11 U/L Normal 7-38 [facility] Comment on above: Order Comment: Speci men Type: BLOOD SPECIMENOrdering Facility: [facility] Address: [address] [place] [address] Performed By: #### 2 4323-8 ####[facility] [id number] [place] [id number] [place] Anion gap [Moles/Vol] 8 mmol/L Normal 8-15 [facility] Comment on above: Order Comment: Speci men Type: BLOOD SPECIMENOrdering Facility: [facility] Address: [address] [place] [address] Performed By: #### 2 4323-8 ####[facility] [id number] [place] [id number] [place] AST [Catalytic activity/Vol] 24 U/L Normal 13-35 [facility] Comment on above: Order Comment: Speci men Type: BLOOD SPECIMENOrdering Facility: [facility] Address: [address] [place] [address] [place] [address] Performed By: #### 2 4323-8 ####[facility] [id number] [address] [address] [place] Bilirubin [Mass/Vol] 0.2 mg/dL Normal 0.2-1.3 [facility] Comment on above: Order Comment: Speci men Type: BLOOD SPECIMENOrdering Facility: [facility] Address: [address] [place], [place] [address] Performed By: #### 2 4323-8 ####[facility] [id number] [place] [id number] [place] Calcium [Mass/Vol] 8.9 mg/dL Normal 8.5-10.2 [facility] Comment on above: Order Comment: Speci men Type: BLOOD SPECIMENOrdering Facility: [facility] Address: [address] [place] [address] Performed By: #### 2 4323-8 ####[facility] [id number] [address] [address] [place] Chloride [Moles/Vol] 102 mmol/L Normal 98-107 [facility] Comment on above: Order Comment: Speci men Type: BLOOD SPECIMENOrdering Facility: [facility] Address: [address] [place], [place] [address] Performed By: #### 2 4323-8 ####[facility] [id number] [address] [address] [place] CO2 [Moles/Vol] 29 mmol/L Normal 22-30 [facility] Comment on above: Order Comment: Speci men Type: BLOOD SPECIMENOrdering Facility: [facility] Address: [address] [place], [place] [address] Performed By: #### 2 4323-8 ####[facility] [id number] [address] [address] [place] Creatinine [Mass/Vol] 0.63 mg/dL Normal 0.58-0.96 [facility] Comment on above: Order Comment: Milo peters Type: BLOOD SPECIMENOrdering Facility: [facility] Address: [address] [place] [address] Performed By: #### 2 4323-8 ####[facility] [id number] [place] [address] [place] Creatinine and Glomerular filtration rate.predicted panel (S/P/Bld) 99 mL/min/1.73m??? Normal >=60 [facility] Comment on above: Order Comment: Milo peters Type: BLOOD SPECIMENOrdering Facility: [facility] Address: [address] [place] [address] Result Comment: Lexie mated Glomerular Filtration Rate [...] actual GFR. Performed By: #### 2 4323-8 ####[facility] [id number] [place] [address] [place] Glucose [Mass/Vol] 103 mg/dL High 74-99 [facility] Comment on above: Order Comment: Milo peters Type: BLOOD SPECIMENOrdering Facility: [facility] Address: [address] [place] [address] Result Comment: The [place] [employer] (ADA) provides guidance for cutoff [...] Standards of Medical Care in Diabetes 2016, [place] [employer]. Diabetes Care. 2016.39(Suppl 1). Performed By: #### 2 4323-8 ####[facility] [id number] [address] [address] [place] Potassium [Moles/Vol] 3.9 mmol/L Normal 3.7-5.1 [facility] Comment on above: Order Comment: Speci men Type: BLOOD SPECIMENOrdering Facility: [facility] Address: [address] [place] [address] Performed By: #### 2 4323-8 ####[facility] [id number] [place] [id number] [place] Protein [Mass/Vol] 6.3 g/dL Normal 6.3-8.0 [facility] Comment on above: Order Comment: Speci men Type: BLOOD SPECIMENOrdering Facility: [facility] Address: [address] [place] [address] Performed By: #### 2 4323-8 ####[facility] [id number] [place] [id number] [place] Sodium [Moles/Vol] 139 mmol/L Normal 136-144 [facility] Comment on above: Order Comment: Speci men Type: BLOOD SPECIMENOrdering Facility: [facility] Address: [address] [place] [address] Performed By: #### 2 4323-8 ####[facility] [id number] [address] [address] [place] Urea nitrogen [Mass/Vol] 24 mg/dL High 7-21 [facility] Comment on above: Order Comment: Speci men Type: BLOOD SPECIMENOrdering Facility: [facility] Address: [address] [place], [place] [address] Performed By: #### 2 4323-8 ####[facility] [id number] [place] [id number] [place] POTASSIUMon 09-13-2024 Potassium [Moles/Vol] 4.4 mmol/L Normal 3.7-5.1 [facility] Comment on above: Order Comment: Speci men Type: BLOOD SPECIMENOrdering Facility: [facility] Address: [address] [place] [address] Performed By: #### K 1 ####[facility] [id number] [place] [id number] [place] XR CHEST 1V FRONTAL PORTon 0 09-13-2024 XR CHEST 1V FRONTAL PORT Normal [facility] ALLIED HEALTHon 09-12-2024 ALLIED HEALTH Normal [facility] CASE MANAGEMon 09-12-2024 CASE MANAGEM Normal [facility] CBC panel Auto (Bld)on 09-12 Erythrocyte distribution width (RBC) [Ratio] 15.9 % High 11.5-15.0 [facility] Comment on above: Order Comment: Speci men Type: BLOOD SPECIMENOrdering Facility: [facility] Address: [address] [place] [address] Performed By: #### 5 8410-2 ####[facility] [id number] [place] [id number] [place] Hematocrit (Bld) [Volume fraction] 29.8 % Low 36.0-46.0 [facility] Comment on above: Order Comment: Speci men Type: BLOOD SPECIMENOrdering Facility: [facility] Address: [address] [place] [address] Performed By: #### 5 8410-2 ####[facility] [id number] [place] [id number] [place] Hemoglobin (Bld) [Mass/Vol] 9.4 g/dL Low 11.5-15.5 [facility] Comment on above: Order Comment: Speci men Type: BLOOD SPECIMENOrdering Facility: [facility] Address: [address] [place] [address] Performed By: #### 5 8410-2 ####[facility] [id number] [place] [address] [place] MCH (RBC) [Entitic mass] 28.1 pg Normal 26.0-34.0 [facility] Comment on above: Order Comment: Speci men Type: BLOOD SPECIMENOrdering Facility: [facility] Address: [address] [place] [address] Performed By: #### 5 8410-2 ####[facility] [id number] [place] [address] [place] MCHC (RBC) [Mass/Vol] 31.5 g/dL Normal 30.5-36.0 [facility] Comment on above: Order Comment: Speci men Type: BLOOD SPECIMENOrdering Facility: [facility] Address: [address] [place] [address] Performed By: #### 5 8410-2 ####[facility] [id number] [place] [address] [place] MCV (RBC) [Entitic vol] 89.2 fL Normal 80.0-100.0 [facility] Comment on above: Order Comment: Speci men Type: BLOOD SPECIMENOrdering Facility: [facility] Address: [address] [place] [address] Performed By: #### 5 8410-2 ####[facility] [id number] [place] [address] [place] Nucleated RBC (Bld) [#/Vol] 10*3/uL Normal <0.01 [facility] Comment on above: Order Comment: Speci men Type: BLOOD SPECIMENOrdering Facility: [facility] Address: [address] [place] [address] Performed By: #### 5 8410-2 ####[facility] [id number] [address] [place] [address] [place] Platelet mean volume (Bld) [Entitic vol] 10.0 fL Normal 9.0-12.7 [facility] Comment on above: Order Comment: Speci men Type: BLOOD SPECIMENOrdering Facility: [facility] Address: [address] [place] [address] Performed By: #### 5 8410-2 ####[facility] [id number] [address], [facility]95 [place] Platelets (Bld) [#/Vol] 165 10*3/uL Normal 150-400 [facility] Comment on above: Order Comment: Speci men Type: BLOOD SPECIMENOrdering Facility: [facility] Address: [address] [place] [address] Performed By: #### 5 8410-2 ####[facility] [id number] [place] [id number] [place] RBC (Bld) [#/Vol] 3.34 10*6/uL Low 3.90-5.20 [facility] Comment on above: Order Comment: Speci men Type: BLOOD SPECIMENOrdering Facility: [facility] Address: [address] [place] [address] Performed By: #### 5 8410-2 ####[facility] [id number] [place] [id number] [place] WBC (Bld) [#/Vol] 5.69 10*3/uL Normal 3.70-11.00 [facility] Comment on above: Order Comment: Speci men Type: BLOOD SPECIMENOrdering Facility: [facility] Address: [address] [place] [address] Performed By: #### 5 8410-2 ####[facility] [id number] [address] [place] [address] [place] CONSULTon 09-12-2024 CONSULT Normal [facility] metabolic 2000 panelon 09-12-2024 Albumin [Mass/Vol] 3.1 g/dL Low 3.9-4.9 [facility] Comment on above: Order Comment: Speci men Type: BLOOD SPECIMENOrdering Facility: [facility] Address: [address] [place] [address] Performed By: #### 2 4323-8 ####[facility] [id number] [facility] [place] [address] [place] ALP [Catalytic activity/Vol] 46 U/L Normal 34-123 [facility] Comment on above: Order Comment: Speci men Type: BLOOD SPECIMENOrdering Facility: [facility] Address: [address] [place] [address] Performed By: #### 2 4323-8 ####[facility] [id number] [facility] [place] [address] [place] ALT [Catalytic activity/Vol] 10 U/L Normal 7-38 [facility] Comment on above: Order Comment: Speci men Type: BLOOD SPECIMENOrdering Facility: [facility] Address: [address] [place] [address] Performed By: #### 2 4323-8 ####[facility] [id number] [facility] [place] [id number] [place] Anion gap [Moles/Vol] 8 mmol/L Normal 8-15 [facility] Comment on above: Order Comment: Speci men Type: BLOOD SPECIMENOrdering Facility: [facility] Address: [address] [place] [address] Performed By: #### 2 4323-8 ####[facility] [id number] [facility] [place] [address] [place] AST [Catalytic activity/Vol] 25 U/L Normal 13-35 [facility] Comment on above: Order Comment: Speci men Type: BLOOD SPECIMENOrdering Facility: [facility] Address: [address] [place] [address] Performed By: #### 2 4323-8 ####[facility] [id number] [address] [address] [place] Bilirubin [Mass/Vol] 0.2 mg/dL Normal 0.2-1.3 [facility] Comment on above: Order Comment: Speci men Type: BLOOD SPECIMENOrdering Facility: [facility] Address: [address] [place] [address] Performed By: #### 2 4323-8 ####[facility] [id number] [place] [id number] [place] Calcium [Mass/Vol] 8.9 mg/dL Normal 8.5-10.2 [facility] Comment on above: Order Comment: Speci men Type: BLOOD SPECIMENOrdering Facility: [facility] Address: [address] [place] [address] Performed By: #### 2 4323-8 ####[facility] [id number] [place] [id number] [place] Chloride [Moles/Vol] 103 mmol/L Normal 98-107 [facility] Comment on above: Order Comment: Speci men Type: BLOOD SPECIMENOrdering Facility: [facility] Address: [address] [place] [address] Performed By: #### 2 4323-8 ####[facility] [id number] [place] [id number] [place] CO2 [Moles/Vol] 27 mmol/L Normal 22-30 [facility] Comment on above: Order Comment: Speci men Type: BLOOD SPECIMENOrdering Facility: [facility] Address: [address] [place] [address] Performed By: #### 2 4323-8 ####[facility] [id number] [address] [address] [place] Creatinine [Mass/Vol] 0.67 mg/dL Normal 0.58-0.96 [facility] Comment on above: Order Comment: Milo peters Type: BLOOD SPECIMENOrdering Facility: [facility] Address: [address] [place] [address] Performed By: #### 2 4323-8 ####[facility] [id number] [place] [address] [place] [address] [facility] Creatinine and Glomerular filtration rate.predicted panel (S/P/Bld) 97 mL/min/1.73m??? Normal >=60 [facility] Comment on above: Order Comment: Milo peters Type: BLOOD SPECIMENOrdering Facility: [facility] Address: [address] [place] [address] Result Comment: Lexie mated Glomerular Filtration Rate [...] actual GFR. Performed By: #### 2 4323-8 ####[facility] [id number] [place] [address] [place] Glucose [Mass/Vol] 99 mg/dL Normal 74-99 [facility] Comment on above: Order Comment: Milo peters Type: BLOOD SPECIMENOrdering Facility: [facility] Address: [address] [place] [address] Result Comment: The [place] [employer] (ADA) provides guidance for cutoff [...] Standards of Medical Care in Diabetes 2016, [place] [employer]. Diabetes Care. 2016.39(Suppl 1). Performed By: #### 2 4323-8 ####[facility] [id number] [address] [address] [place] Potassium [Moles/Vol] 4.1 mmol/L Normal 3.7-5.1 [facility] Comment on above: Order Comment: Speci men Type: BLOOD SPECIMENOrdering Facility: [facility] Address: [address] [place] [address] Performed By: #### 2 4323-8 ####[facility] [id number] [address] [address] [place] Protein [Mass/Vol] 6.3 g/dL Normal 6.3-8.0 [facility] Comment on above: Order Comment: Speci men Type: BLOOD SPECIMENOrdering Facility: [facility] Address: [address] [place], [place] [address] Performed By: #### 2 4323-8 ####[facility] [id number] [address] [address] [place] Sodium [Moles/Vol] 138 mmol/L Normal 136-144 [facility] Comment on above: Order Comment: Speci men Type: BLOOD SPECIMENOrdering Facility: [facility] Address: [address] [place], [place] [address] Performed By: #### 2 4323-8 ####[facility] [id number] [address] [address] [place] Urea nitrogen [Mass/Vol] 24 mg/dL High 7-21 [facility] Comment on above: Order Comment: Speci men Type: BLOOD SPECIMENOrdering Facility: [facility] Address: [address] [place], [place] [address] Performed By: #### 2 4323-8 ####[facility] [id number] [place] [address] [place] ECG COMPLETEon 09-12-2024 ECG COMPLETE Normal [facility] ECHO LIMITEDon 09-12-2024 ECHO LIMITED Normal [facility] THERAPY NTon 09-12-2024 THERAPY NT Normal [facility] THERAPY NT Normal [facility] THERAPY NT Normal [facility] XR CHEST 1V FRONTALon 2024 XR CHEST 1V FRONTAL Normal [facility] XR CHEST 1V FRONTAL PORTon 0 09-12-2024 XR CHEST 1V FRONTAL PORT Normal [facility] XR CHEST 1V FRONTAL PORT Normal [facility] ALLIED HEALTHon 09-11-2024 ALLIED HEALTH Normal [facility] CASE MANAGEMon 09-11-2024 CASE MANAGEM Normal [facility] CBC panel Auto (Bld)on 09-11 Erythrocyte distribution width (RBC) [Ratio] 15.9 % High 11.5-15.0 [facility] Comment on above: Order Comment: Speci men Type: BLOOD SPECIMENOrdering Facility: [facility] Address: [address] [place] [address] Performed By: #### 5 8410-2 ####[facility] [id number] [place] [address] [place] Hematocrit (Bld) [Volume fraction] 33.4 % Low 36.0-46.0 [facility] Comment on above: Order Comment: Speci men Type: BLOOD SPECIMENOrdering Facility: [facility] Address: [address] [place] [address] Performed By: #### 5 8410-2 ####[facility] [id number] [place] [id number] [place] Hemoglobin (Bld) [Mass/Vol] 10.3 g/dL Low 11.5-15.5 [facility] Comment on above: Order Comment: Speci men Type: BLOOD SPECIMENOrdering Facility: [facility] Address: [address] [place] [address] Performed By: #### 5 8410-2 ####[facility] [id number] [place] [address] [place] MCH (RBC) [Entitic mass] 27.8 pg Normal 26.0-34.0 [facility] Comment on above: Order Comment: Speci men Type: BLOOD SPECIMENOrdering Facility: [facility] Address: [address] [place] [address] Performed By: #### 5 8410-2 ####[facility] [id number] [place] [address] [place] MCHC (RBC) [Mass/Vol] 30.8 g/dL Normal 30.5-36.0 [facility] Comment on above: Order Comment: Speci men Type: BLOOD SPECIMENOrdering Facility: [facility] Address: [address] [place] [address] Performed By: #### 5 8410-2 ####[facility] [id number] [place] [address] [place] MCV (RBC) [Entitic vol] 90.3 fL Normal 80.0-100.0 [facility] Comment on above: Order Comment: Speci men Type: BLOOD SPECIMENOrdering Facility: [facility] Address: [address] [place] [address] Performed By: #### 5 8410-2 ####[facility] [id number] [place] [address] [place] Nucleated RBC (Bld) [#/Vol] 10*3/uL Normal <0.01 [facility] Comment on above: Order Comment: Speci men Type: BLOOD SPECIMENOrdering Facility: [facility] Address: [address] [place] [address] Performed By: #### 5 8410-2 ####[facility] [id number] [place] [address] [place] Platelet mean volume (Bld) [Entitic vol] 10.1 fL Normal 9.0-12.7 [facility] Comment on above: Order Comment: Speci men Type: BLOOD SPECIMENOrdering Facility: [facility] Address: [address] [place] [address] Performed By: #### 5 8410-2 ####[facility] [id number] [address] [address] [place] Platelets (Bld) [#/Vol] 170 10*3/uL Normal 150-400 [facility] Comment on above: Order Comment: Speci men Type: BLOOD SPECIMENOrdering Facility: [facility] Address: [address] [place] [address] Performed By: #### 5 8410-2 ####[facility] [id number] [address] [address] [place] RBC (Bld) [#/Vol] 3.70 10*6/uL Low 3.90-5.20 [facility] Comment on above: Order Comment: Speci men Type: BLOOD SPECIMENOrdering Facility: [facility] Address: [address] [place] [address] Performed By: #### 5 8410-2 ####[facility] [id number] [address] [address] [place] WBC (Bld) [#/Vol] 10.59 10*3/uL Normal 3.70-11.00 [facility] Comment on above: Order Comment: Speci men Type: BLOOD SPECIMENOrdering Facility: [facility] Address: [address] [place] [address] Performed By: #### 5 8410-2 ####[facility] [id number] [address] [address] [place] CNDSon 09-11-2024 CNDS Normal [facility] CNPNon 09-11-2024 CNPN Normal [facility] Comprehensive metabolic 2000 panelon 09-11-2024 Albumin [Mass/Vol] 3.4 g/dL Low 3.9-4.9 [facility] Comment on above: Order Comment: Speci men Type: BLOOD SPECIMENOrdering Facility: [facility] Address: [address] [place] [address] Performed By: #### 2 4323-8 ####[facility] [id number] [facility] [place] [id number] [place] ALP [Catalytic activity/Vol] 58 U/L Normal 34-123 [facility] Comment on above: Order Comment: Speci men Type: BLOOD SPECIMENOrdering Facility: [facility] Address: [address] [place] [address] Performed By: #### 2 4323-8 ####[facility] [id number] [facility] [place] [address] [place] ALT [Catalytic activity/Vol] 12 U/L Normal 7-38 [facility] Comment on above: Order Comment: Speci men Type: BLOOD SPECIMENOrdering Facility: [facility] Address: [address] [place] [address] Performed By: #### 2 4323-8 ####[facility] [id number] [facility] [place] [id number] [place] Anion gap [Moles/Vol] 11 mmol/L Normal 8-15 [facility] Comment on above: Order Comment: Speci men Type: BLOOD SPECIMENOrdering Facility: [facility] Address: [address] [place] [address] Performed By: #### 2 4323-8 ####[facility] [id number] [facility] [place] [id number] [place] AST [Catalytic activity/Vol] 38 U/L High 13-35 [facility] Comment on above: Order Comment: Speci men Type: BLOOD SPECIMENOrdering Facility: [facility] Address: [address] [place] [address] Performed By: #### 2 4323-8 ####[facility] [id number] [place] [id number] [place] Bilirubin [Mass/Vol] 0.3 mg/dL Normal 0.2-1.3 [facility] Comment on above: Order Comment: Speci men Type: BLOOD SPECIMENOrdering Facility: [facility] Address: [address] [place] [address] Performed By: #### 2 4323-8 ####[facility] [id number] [place] [address] [place] Calcium [Mass/Vol] 8.6 mg/dL Normal 8.5-10.2 [facility] Comment on above: Order Comment: Speci men Type: BLOOD SPECIMENOrdering Facility: [facility] Address: [address] [place] [address] Performed By: #### 2 4323-8 ####[facility] [id number] [place] [address] [place] Chloride [Moles/Vol] 103 mmol/L Normal 98-107 [facility] Comment on above: Order Comment: Speci men Type: BLOOD SPECIMENOrdering Facility: [facility] Address: [address] [place] [address] Performed By: #### 2 4323-8 ####[facility] [id number] [place] [id number] [place] CO2 [Moles/Vol] 25 mmol/L Normal 22-30 [facility] Comment on above: Order Comment: Speci men Type: BLOOD SPECIMENOrdering Facility: [facility] Address: [address] [place] [address] Performed By: #### 2 4323-8 ####[facility] [id number] [place] [id number] [place] Creatinine [Mass/Vol] 0.70 mg/dL Normal 0.58-0.96 [facility] Comment on above: Order Comment: Milo peters Type: BLOOD SPECIMENOrdering Facility: [facility] Address: [address] [place] [address] Performed By: #### 2 4323-8 ####[facility] [id number] [place] [address] [place] Creatinine and Glomerular filtration rate.predicted panel (S/P/Bld) 96 mL/min/1.73m??? Normal >=60 [facility] Comment on above: Order Comment: Milo peters Type: BLOOD SPECIMENOrdering Facility: [facility] Address: [address] [place] [address] Result Comment: Lexie mated Glomerular Filtration Rate [...] actual GFR. Performed By: #### 2 4323-8 ####[facility] [id number] [place] [address] [place] Glucose [Mass/Vol] 102 mg/dL High 74-99 [facility] Comment on above: Order Comment: Milo peters Type: BLOOD SPECIMENOrdering Facility: [facility] Address: [address] [place] [address] Result Comment: The [place] [employer] (ADA) provides guidance for cutoff [...] Standards of Medical Care in Diabetes 2016, [place] [employer]. Diabetes Care. 2016.39(Suppl 1). Performed By: #### 2 4323-8 ####[facility] [id number] [address] [address] [place] Potassium [Moles/Vol] 4.6 mmol/L Normal 3.7-5.1 [facility] Comment on above: Order Comment: Speci men Type: BLOOD SPECIMENOrdering Facility: [facility] Address: [address] [place], [place] [address] Performed By: #### 2 4323-8 ####[facility] [id number] [address] [address] [place] Protein [Mass/Vol] 6.5 g/dL Normal 6.3-8.0 [facility] Comment on above: Order Comment: Speci men Type: BLOOD SPECIMENOrdering Facility: [facility] Address: [address] [place] [address] Performed By: #### 2 4323-8 ####[facility] [id number] [address] [address] [place] Sodium [Moles/Vol] 139 mmol/L Normal 136-144 [facility] Comment on above: Order Comment: Speci men Type: BLOOD SPECIMENOrdering Facility: [facility] Address: [address] [place] [address] Performed By: #### 2 4323-8 ####[facility] [id number] [address] [address] [place] Urea nitrogen [Mass/Vol] 18 mg/dL Normal 7-21 [facility] Comment on above: Order Comment: Speci men Type: BLOOD SPECIMENOrdering Facility: [facility] Address: [address] [place], [place] [address] Performed By: #### 2 4323-8 ####[facility] [id number] [place] [id number] [place] XR CHEST 1V FRONTAL PORTon 0 09-11-2024 XR CHEST 1V FRONTAL PORT Normal [facility] ALLIED HEALTHon 09-10-2024 ALLIED HEALTH HNO ID: [id number] Author: ALEC BACA Chaplain Service: Spiritual Care Author Type: Gold Prospector Type: Allied Health Filed: 09/10/2024 10:55 Note Text: Accepted anoint.,bless. Normal [facility] ARTERIAL BLOOD GASESon 09-10 Base excess Calc (Bld) [Moles/Vol] 3 mmol/L High 0-2 [facility] Comment on above: Order Comment: Speci men Type: ARTERIAL BLOOD SPECIMENOrdering Facility: [facility] Address: [address] [place] [address] Performed By: #### A LLBG ####[facility] [id number] [place] [address] [place] Body temperature 98.6 [degF] Normal [facility] Comment on above: Order Comment: Speci men Type: ARTERIAL BLOOD SPECIMENOrdering Facility: [facility] Address: [address] [place] [address] Performed By: #### A LLBG ####[facility] [id number] [place] [address] [place] Calcium.ionized (Bld) [Mass/Vol] 1.17 mmol/L Normal 1.08-1.30 [facility] Comment on above: Order Comment: Speci men Type: ARTERIAL BLOOD SPECIMENOrdering Facility: [facility] Address: [address] [place] [address] Performed By: #### A LLBG ####[facility] [id number] [place] [address] [place] Calcium.ionized adjusted to pH 7.4 (BldA) [Moles/Vol] 1.19 mmol/L Normal 1.08-1.30 [facility] Comment on above: Order Comment: Speci men Type: ARTERIAL BLOOD SPECIMENOrdering Facility: [facility] Address: [address] [place] [address] Performed By: #### A LLBG ####[facility] [id number] [address] [address] [place] Carboxyhemoglobin (BldA) [Mass fraction] 1.2 % Normal 0.0-2.0 [facility] Comment on above: Order Comment: Speci men Type: ARTERIAL BLOOD SPECIMENOrdering Facility: [facility] Address: [address] [place] [address] Result Comment: Carb oxyhemoglobin Reference Range for Smokers: 2.0-8.0% Performed By: #### A LLBG ####[facility] [id number] [place] [address] [place] CO2 (Bld) [Partial pressure] 41 mm Hg Normal 36-46 [facility] Comment on above: Order Comment: Speci men Type: ARTERIAL BLOOD SPECIMENOrdering Facility: [facility] Address: [address] [place] [address] Performed By: #### A LLBG ####[facility] [id number] [place] [address] [place] Glucose [Mass/Vol] 124 mg/dL High 60-105 [facility] Comment on above: Order Comment: Speci men Type: ARTERIAL BLOOD SPECIMENOrdering Facility: [facility] Address: [address] [place] [address] Performed By: #### A LLBG ####[facility] [id number] [place] [id number] [place] HCO3 (Bld) [Moles/Vol] 27 mmol/L High 22-26 [facility] Comment on above: Order Comment: Speci men Type: ARTERIAL BLOOD SPECIMENOrdering Facility: [facility] Address: [address], [place] [address] Performed By: #### A LLBG ####[facility] [id number] [place] [address] [place] Hematocrit (Bld) [Volume fraction] 32.6 % Low 36.0-46.0 [facility] Comment on above: Order Comment: Speci men Type: ARTERIAL BLOOD SPECIMENOrdering Facility: [facility] Address: [address] [place] [address] Performed By: #### A LLBG ####[facility] [id number] [place] [address] [place] Hemoglobin (Bld) [Mass/Vol] 10.5 g/dL Low 11.5-15.5 [facility] Comment on above: Order Comment: Speci men Type: ARTERIAL BLOOD SPECIMENOrdering Facility: [facility] Address: [address] [place] [address] Performed By: #### A LLBG ####[facility] [id number] [place] [address] [place] Lactate [Moles/Vol] 1.5 mmol/L Normal 0.5-2.2 [facility] Comment on above: Order Comment: Speci men Type: ARTERIAL BLOOD SPECIMENOrdering Facility: [facility] Address: [address] [place] [address] Performed By: #### A LLBG ####[facility] [id number] [place] [address] [place] LITERS 1 Liters/min Normal [facility] Comment on above: Order Comment: Speci men Type: ARTERIAL BLOOD SPECIMENOrdering Facility: [facility] Address: [address] [place] [address] Performed By: #### A LLBG ####[facility] [id number] [place] [address] [place] Methemoglobin (Bld) [Mass fraction] 0.3 % Normal 0.0-1.5 [facility] Comment on above: Order Comment: Speci men Type: ARTERIAL BLOOD SPECIMENOrdering Facility: [facility] Address: [address] [place] [address] Performed By: #### A LLBG ####[facility] [id number] [address] [address] [place] O2 THERAPY [place] = Nasal Cannula Normal [facility] Comment on above: Order Comment: Speci men Type: ARTERIAL BLOOD SPECIMENOrdering Facility: [facility] Address: [address] [place] [address] Performed By: #### A LLBG ####[facility] [id number] [address] [address] [place] Oxygen (Bld) [Partial pressure] 108 mm Hg High 85-95 [facility] Comment on above: Order Comment: Speci men Type: ARTERIAL BLOOD SPECIMENOrdering Facility: [facility] Address: [address] [place] [address] Performed By: #### A LLBG ####[facility] [id number] [place] [id number] [place] Oxyhemoglobin (BldA) [Mass fraction] 97 % Normal 95-98 [facility] Comment on above: Order Comment: Speci men Type: ARTERIAL BLOOD SPECIMENOrdering Facility: [facility] Address: [address] [place] [address] Performed By: #### A LLBG ####[facility] [id number] [address] [address] [place] pH (Bld) 7.44 [pH] Normal 7.35-7.45 [facility] Comment on above: Order Comment: Speci men Type: ARTERIAL BLOOD SPECIMENOrdering Facility: [facility] Address: [address] [place] [address] Performed By: #### A LLBG ####[facility] [id number] [place] [address] [place] Potassium [Moles/Vol] 4.0 mmol/L Normal 3.5-5.0 [facility] Comment on above: Order Comment: Speci men Type: ARTERIAL BLOOD SPECIMENOrdering Facility: [facility] Address: [address] [place] [address] Performed By: #### A LLBG ####[facility] [id number] [place] [address] [place] Sodium [Moles/Vol] 137 mmol/L Normal 136-144 [facility] Comment on above: Order Comment: Speci men Type: ARTERIAL BLOOD SPECIMENOrdering Facility: [facility] Address: [address] [place] [address] Performed By: #### A LLBG ####[facility] [id number] [place] [address] [place] Base excess Calc (Bld) [Moles/Vol] 2 mmol/L Normal 0-2 [facility] Comment on above: Order Comment: Speci men Type: ARTERIAL BLOOD SPECIMENOrdering Facility: [facility] Address: [address] [place] [address] Performed By: #### A LLBG ####[facility] [id number] [place] [address] [place] Body temperature 98.6 [degF] Normal [facility] Comment on above: Order Comment: Speci men Type: ARTERIAL BLOOD SPECIMENOrdering Facility: [facility] Address: [address] [place] [address] Performed By: #### A LLBG ####[facility] [id number] [place] [address] [place] Calcium.ionized (Bld) [Mass/Vol] 1.16 mmol/L Normal 1.08-1.30 [facility] Comment on above: Order Comment: Speci men Type: ARTERIAL BLOOD SPECIMENOrdering Facility: [facility] Address: [address] [place] [address] Performed By: #### A LLBG ####[facility] [id number] [place] [address] [place] Calcium.ionized adjusted to pH 7.4 (BldA) [Moles/Vol] 1.15 mmol/L Normal 1.08-1.30 [facility] Comment on above: Order Comment: Speci men Type: ARTERIAL BLOOD SPECIMENOrdering Facility: [facility] Address: [address] [place] [address] Performed By: #### A LLBG ####[facility] [id number] [place] [address] [place] Carboxyhemoglobin (BldA) [Mass fraction] 1.0 % Normal 0.0-2.0 [facility] Comment on above: Order Comment: Speci men Type: ARTERIAL BLOOD SPECIMENOrdering Facility: [facility] Address: [address] [place] [address] Result Comment: Carb oxyhemoglobin Reference Range for Smokers: 2.0-8.0% Performed By: #### A LLBG ####[facility] [id number] [place] [address] [place] CO2 (Bld) [Partial pressure] 46 mm Hg Normal 36-46 [facility] Comment on above: Order Comment: Speci men Type: ARTERIAL BLOOD SPECIMENOrdering Facility: [facility] Address: [address] [place] [address] Performed By: #### A LLBG ####[facility] [id number] [place] [address] [place] Glucose [Mass/Vol] 134 mg/dL High 60-105 [facility] Comment on above: Order Comment: Speci men Type: ARTERIAL BLOOD SPECIMENOrdering Facility: [facility] Address: [address] [place] [address] Performed By: #### A LLBG ####[facility] [id number] [place] [address] [place] HCO3 (Bld) [Moles/Vol] 27 mmol/L High 22-26 [facility] Comment on above: Order Comment: Speci men Type: ARTERIAL BLOOD SPECIMENOrdering Facility: [facility] Address: [address] [place] [address] Performed By: #### A LLBG ####[facility] [id number] [place] [address] [place] Hematocrit (Bld) [Volume fraction] 32.8 % Low 36.0-46.0 [facility] Comment on above: Order Comment: Speci men Type: ARTERIAL BLOOD SPECIMENOrdering Facility: [facility] Address: [address] [place] [address] Performed By: #### A LLBG ####[facility] [id number] [place] [address] [place] Hemoglobin (Bld) [Mass/Vol] 10.6 g/dL Low 11.5-15.5 [facility] Comment on above: Order Comment: Speci men Type: ARTERIAL BLOOD SPECIMENOrdering Facility: [facility] Address: [address] [place] [address] Performed By: #### A LLBG ####[facility] [id number] [place] [address] [place] Lactate [Moles/Vol] 2.0 mmol/L Normal 0.5-2.2 [facility] Comment on above: Order Comment: Speci men Type: ARTERIAL BLOOD SPECIMENOrdering Facility: [facility] Address: [address] [place] [address] Performed By: #### A LLBG ####[facility] [id number] [place] [address] [place] LITERS 1 Liters/min Normal [facility] Comment on above: Order Comment: Speci men Type: ARTERIAL BLOOD SPECIMENOrdering Facility: [facility] Address: [address] [place] [id number] Performed By: #### A LLBG ####[facility] [id number] [address] [address] [place] Methemoglobin (Bld) [Mass fraction] 0.7 % Normal 0.0-1.5 [facility] Comment on above: Order Comment: Speci men Type: ARTERIAL BLOOD SPECIMENOrdering Facility: [facility] Address: [address] [place] [id number] Performed By: #### A LLBG ####[facility] [id number] [address] [address] [place] O2 THERAPY NC = Nasal Cannula Normal [facility] Comment on above: Order Comment: Speci men Type: ARTERIAL BLOOD SPECIMENOrdering Facility: [facility] Address: [address] [place], [place] [id number] Performed By: #### A LLBG ####[facility] [id number] [address] [address] [place] Oxygen (Bld) [Partial pressure] 120 mm Hg High 85-95 [facility] Comment on above: Order Comment: Speci men Type: ARTERIAL BLOOD SPECIMENOrdering Facility: [facility] Address: [address] [place] [id number] Performed By: #### A LLBG ####[facility] [id number] [address] [place] [address] [place] Oxyhemoglobin (BldA) [Mass fraction] 97 % Normal 95-98 [facility] Comment on above: Order Comment: Speci men Type: ARTERIAL BLOOD SPECIMENOrdering Facility: [facility] Address: [address] [place] [id number] Performed By: #### A LLBG ####[facility] [id number] [place] [address] [place] pH (Bld) 7.39 [pH] Normal 7.35-7.45 [facility] Comment on above: Order Comment: Speci men Type: ARTERIAL BLOOD SPECIMENOrdering Facility: [facility] Address: [address] [place] [address] Performed By: #### A LLBG ####[facility] [id number] [place] [address] [place] Potassium [Moles/Vol] 4.0 mmol/L Normal 3.5-5.0 [facility] Comment on above: Order Comment: Speci men Type: ARTERIAL BLOOD SPECIMENOrdering Facility: [facility] Address: [address] [place] [address] Performed By: #### A LLBG ####[facility] [id number] [place] [address] [place] Sodium [Moles/Vol] 137 mmol/L Normal 136-144 [facility] Comment on above: Order Comment: Speci men Type: ARTERIAL BLOOD SPECIMENOrdering Facility: [facility] Address: [address] [place] [address] Performed By: #### A LLBG ####[facility] [id number] [place] [address] [place] Base excess Calc (Bld) [Moles/Vol] 2 mmol/L Normal 0-2 [facility] Comment on above: Order Comment: Speci men Type: ARTERIAL BLOOD SPECIMENOrdering Facility: [facility] Address: [address] [place] [address] Performed By: #### A LLBG ####[facility] [id number] [place] [id number] [place] Body temperature 98.6 [degF] Normal [facility] Comment on above: Order Comment: Speci men Type: ARTERIAL BLOOD SPECIMENOrdering Facility: [facility] Address: [address] [place] [address] Performed By: #### A LLBG ####[facility] [id number] [place] [address] [place] Calcium.ionized (Bld) [Mass/Vol] 1.13 mmol/L Normal 1.08-1.30 [facility] Comment on above: Order Comment: Speci men Type: ARTERIAL BLOOD SPECIMENOrdering Facility: [facility] Address: [address] [place] [address] Performed By: #### A LLBG ####[facility] [id number] [place] [address] [place] Calcium.ionized adjusted to pH 7.4 (BldA) [Moles/Vol] 1.13 mmol/L Normal 1.08-1.30 [facility] Comment on above: Order Comment: Speci men Type: ARTERIAL BLOOD SPECIMENOrdering Facility: [facility] Address: [address] [place] [address] Performed By: #### A LLBG ####[facility] [id number] [place] [address] [place] Carboxyhemoglobin (BldA) [Mass fraction] 1.3 % Normal 0.0-2.0 [facility] Comment on above: Order Comment: Speci men Type: ARTERIAL BLOOD SPECIMENOrdering Facility: [facility] Address: [address] [place] [address] Result Comment: Carb oxyhemoglobin Reference Range for Smokers: 2.0-8.0% Performed By: #### A LLBG ####[facility] [id number] [place] [address] [place] CO2 (Bld) [Partial pressure] 44 mm Hg Normal 36-46 [facility] Comment on above: Order Comment: Speci men Type: ARTERIAL BLOOD SPECIMENOrdering Facility: [facility] Address: [address] [place] [address] Performed By: #### A LLBG ####[facility] [id number] [place] [address] [place] Glucose [Mass/Vol] 165 mg/dL High 60-105 [facility] Comment on above: Order Comment: Speci men Type: ARTERIAL BLOOD SPECIMENOrdering Facility: [facility] Address: [address] [place] [address] Performed By: #### A LLBG ####[facility] [id number] [place] [address] [place] HCO3 (Bld) [Moles/Vol] 27 mmol/L High 22-26 [facility] Comment on above: Order Comment: Speci men Type: ARTERIAL BLOOD SPECIMENOrdering Facility: [facility] Address: [address] [place] [address] Performed By: #### A LLBG ####[facility] [id number] [place] [address] [place] Hematocrit (Bld) [Volume fraction] 35.1 % Low 36.0-46.0 [facility] Comment on above: Order Comment: Speci men Type: ARTERIAL BLOOD SPECIMENOrdering Facility: [facility] Address: [address] [place] [address] Performed By: #### A LLBG ####[facility] [id number] [place] [address] [place] Hemoglobin (Bld) [Mass/Vol] 11.4 g/dL Low 11.5-15.5 [facility] Comment on above: Order Comment: Speci men Type: ARTERIAL BLOOD SPECIMENOrdering Facility: [facility] Address: [address] [place] [address] Performed By: #### A LLBG ####[facility] [id number] [place] [address] [place] Lactate [Moles/Vol] 1.7 mmol/L Normal 0.5-2.2 [facility] Comment on above: Order Comment: Speci men Type: ARTERIAL BLOOD SPECIMENOrdering Facility: [facility] Address: [address] [place] [address] Performed By: #### A LLBG ####[facility] [id number] [place] [address] [place] LITERS 1 Liters/min Normal [facility] Comment on above: Order Comment: Speci men Type: ARTERIAL BLOOD SPECIMENOrdering Facility: [facility] Address: [address] [place] [address] Performed By: #### A LLBG ####[facility] [id number] [place] [address] [place] Methemoglobin (Bld) [Mass fraction] 0.6 % Normal 0.0-1.5 [facility] Comment on above: Order Comment: Speci men Type: ARTERIAL BLOOD SPECIMENOrdering Facility: [facility] Address: [address] [place] [address] Performed By: #### A LLBG ####[facility] [id number] [place] [address] [place] O2 THERAPY NC = Nasal Cannula Normal [facility] Comment on above: Order Comment: Speci men Type: ARTERIAL BLOOD SPECIMENOrdering Facility: [facility] Address: [address] [place] [address] Performed By: #### A LLBG ####[facility] [id number] [place] [address] [place] Oxygen (Bld) [Partial pressure] 90 mm Hg Normal 85-95 [facility] Comment on above: Order Comment: Speci men Type: ARTERIAL BLOOD SPECIMENOrdering Facility: [facility] Address: [address] [place] [id number] Performed By: #### A LLBG ####[facility] [id number] [place] [address] [place] Oxyhemoglobin (BldA) [Mass fraction] 95 % Normal 95-98 [facility] Comment on above: Order Comment: Speci men Type: ARTERIAL BLOOD SPECIMENOrdering Facility: [facility] Address: [address] [place] [address] Performed By: #### A LLBG ####[facility] [id number] [place] [address] [place] pH (Bld) 7.40 [pH] Normal 7.35-7.45 [facility] Comment on above: Order Comment: Speci men Type: ARTERIAL BLOOD SPECIMENOrdering Facility: [facility] Address: [address] [place] [address] Performed By: #### A LLBG ####[facility] [id number] [place] [address] [place] Potassium [Moles/Vol] 4.3 mmol/L Normal 3.5-5.0 [facility] Comment on above: Order Comment: Speci men Type: ARTERIAL BLOOD SPECIMENOrdering Facility: [facility] Address: [address] [place] [address] Performed By: #### A LLBG ####[facility] [id number] [place] [address] [place] Sodium [Moles/Vol] 137 mmol/L Normal 136-144 [facility] Comment on above: Order Comment: Speci men Type: ARTERIAL BLOOD SPECIMENOrdering Facility: [facility] Address: [address] [place] [address] Performed By: #### A LLBG ####[facility] [id number] [place] [address] [place] Base excess Calc (Bld) [Moles/Vol] 4 mmol/L High 0-2 [facility] Comment on above: Order Comment: Speci men Type: ARTERIAL BLOOD SPECIMENOrdering Facility: [facility] Address: [address] [place] [address] Performed By: #### A LLBG ####[facility] [id number] [place] [address] [place] Body temperature 98.42 [degF] Normal [facility] Comment on above: Order Comment: Speci men Type: ARTERIAL BLOOD SPECIMENOrdering Facility: [facility] Address: [address] [place] [address] Performed By: #### A LLBG ####[facility] [id number] [place] [address] [place] Calcium.ionized (Bld) [Mass/Vol] 1.13 mmol/L Normal 1.08-1.30 [facility] Comment on above: Order Comment: Speci men Type: ARTERIAL BLOOD SPECIMENOrdering Facility: [facility] Address: [address] [place] [address] Performed By: #### A LLBG ####[facility] [id number] [place] [address] [place] Calcium.ionized adjusted to pH 7.4 (BldA) [Moles/Vol] 1.17 mmol/L Normal 1.08-1.30 [facility] Comment on above: Order Comment: Speci men Type: ARTERIAL BLOOD SPECIMENOrdering Facility: [facility] Address: [address] [place] [address] Performed By: #### A LLBG ####[facility] [id number] [place] [address] [place] Carboxyhemoglobin (BldA) [Mass fraction] 1.5 % Normal 0.0-2.0 [facility] Comment on above: Order Comment: Speci men Type: ARTERIAL BLOOD SPECIMENOrdering Facility: [facility] Address: [address] [place] [address] Result Comment: Carb oxyhemoglobin Reference Range for Smokers: 2.0-8.0% Performed By: #### A LLBG ####[facility] [id number] [place] [address] [place] CO2 (Bld) [Partial pressure] 40 mm Hg Normal 36-46 [facility] Comment on above: Order Comment: Speci men Type: ARTERIAL BLOOD SPECIMENOrdering Facility: [facility] Address: [address] [place] [address] Performed By: #### A LLBG ####[facility] [id number] [place] [address] [place] CO2 adjusted to patient's actual temperature (Bld) [Partial pressure] 40 mmHg Normal 36-46 [facility] Comment on above: Order Comment: Speci men Type: ARTERIAL BLOOD SPECIMENOrdering Facility: [facility] Address: [address] [place] [address] Performed By: #### A LLBG ####[facility] [id number] [place] [address] [place] Glucose [Mass/Vol] 148 mg/dL High 60-105 [facility] Comment on above: Order Comment: Speci men Type: ARTERIAL BLOOD SPECIMENOrdering Facility: [facility] Address: [address] [place] [address] Performed By: #### A LLBG ####[facility] [id number] [place] [address] [place] HCO3 (Bld) [Moles/Vol] 28 mmol/L High 22-26 [facility] Comment on above: Order Comment: Speci men Type: ARTERIAL BLOOD SPECIMENOrdering Facility: [facility] Address: [address] [place] [address] Performed By: #### A LLBG ####[facility] [id number] [place] [address] [place] Hematocrit (Bld) [Volume fraction] 33.9 % Low 36.0-46.0 [facility] Comment on above: Order Comment: Speci men Type: ARTERIAL BLOOD SPECIMENOrdering Facility: [facility] Address: [address] [place] [address] Performed By: #### A LLBG ####[facility] [id number] [place] [address] [place] Hemoglobin (Bld) [Mass/Vol] 11.0 g/dL Low 11.5-15.5 [facility] Comment on above: Order Comment: Speci men Type: ARTERIAL BLOOD SPECIMENOrdering Facility: [facility] Address: [address] [place] [address] Performed By: #### A LLBG ####[facility] [id number] [place] [address] [place] Lactate [Moles/Vol] 1.0 mmol/L Normal 0.5-2.2 [facility] Comment on above: Order Comment: Speci men Type: ARTERIAL BLOOD SPECIMENOrdering Facility: [facility] Address: [address] [place] [address] Performed By: #### A LLBG ####[facility] [id number] [place] [address] [place] LITERS 1 Liters/min Normal [facility] Comment on above: Order Comment: Speci men Type: ARTERIAL BLOOD SPECIMENOrdering Facility: [facility] Address: [address] [place] [address] Performed By: #### A LLBG ####[facility] [id number] [place] [address] [place] Methemoglobin (Bld) [Mass fraction] 0.5 % Normal 0.0-1.5 [facility] Comment on above: Order Comment: Speci men Type: ARTERIAL BLOOD SPECIMENOrdering Facility: [facility] Address: [address] [place] [address] Performed By: #### A LLBG ####[facility] [id number] [address] [address] [place] O2 THERAPY NC = Nasal Cannula Normal [facility] Comment on above: Order Comment: Speci men Type: ARTERIAL BLOOD SPECIMENOrdering Facility: [facility] Address: [address] [place], [place] [id number] Performed By: #### A LLBG ####[facility] [id number] [place] [id number] [place] Oxygen (Bld) [Partial pressure] 82 mm Hg Low 85-95 [facility] Comment on above: Order Comment: Speci men Type: ARTERIAL BLOOD SPECIMENOrdering Facility: [facility] Address: [address] [place] [address] Performed By: #### A LLBG ####[facility] [id number] [place] [address] [place] Oxygen adjusted to patient's actual temperature (Bld) [Partial pressure] 81 mmHg Low 85-95 [facility] Comment on above: Order Comment: Speci men Type: ARTERIAL BLOOD SPECIMENOrdering Facility: [facility] Address: [address] [place], [place] [id number] Performed By: #### A LLBG ####[facility] [id number] [place] [id number] [place] Oxyhemoglobin (BldA) [Mass fraction] 95 % Normal 95-98 [facility] Comment on above: Order Comment: Speci men Type: ARTERIAL BLOOD SPECIMENOrdering Facility: [facility] Address: [address] [place], [place] [id number] Performed By: #### A LLBG ####[facility] [id number] [place] [id number] [place] pH (Bld) 7.46 [pH] High 7.35-7.45 [facility] Comment on above: Order Comment: Speci men Type: ARTERIAL BLOOD SPECIMENOrdering Facility: [facility] Address: [address] [place] [address] Performed By: #### A LLBG ####[facility] [id number] [place] [address] [place] pH adjusted to patient's actual temperature (Bld) 7.46 High 7.35-7.45 [facility] Comment on above: Order Comment: Speci men Type: ARTERIAL BLOOD SPECIMENOrdering Facility: [facility] Address: [address] [place] [address] Performed By: #### A LLBG ####[facility] [id number] [place] [address] [place] Potassium [Moles/Vol] 4.0 mmol/L Normal 3.5-5.0 [facility] Comment on above: Order Comment: Speci men Type: ARTERIAL BLOOD SPECIMENOrdering Facility: [facility] Address: [address] [place] [address] Performed By: #### A LLBG ####[facility] [id number] [place] [address] [place] Sodium [Moles/Vol] 137 mmol/L Normal 136-144 [facility] Comment on above: Order Comment: Speci men Type: ARTERIAL BLOOD SPECIMENOrdering Facility: [facility] Address: [address] [place] [address] Performed By: #### A LLBG ####[facility] [id number] [place] [address] [place] CASE MGT INIT ASSESon 2024 CASE MGT INIT ASSES Normal [facility] CBC panel Auto (Bld)on 09-10 Erythrocyte distribution width (RBC) [Ratio] 15.9 % High 11.5-15.0 [facility] Comment on above: Order Comment: Speci men Type: BLOOD SPECIMENOrdering Facility: [facility] Address: [address] [place] [address] Performed By: #### 5 8410-2 ####[facility] [id number] [place] [address] [place] Hematocrit (Bld) [Volume fraction] 33.7 % Low 36.0-46.0 [facility] Comment on above: Order Comment: Speci men Type: BLOOD SPECIMENOrdering Facility: [facility] Address: [address] [place] [address] Performed By: #### 5 8410-2 ####[facility] [id number] [place] [address] [place] Hemoglobin (Bld) [Mass/Vol] 10.8 g/dL Low 11.5-15.5 [facility] Comment on above: Order Comment: Speci men Type: BLOOD SPECIMENOrdering Facility: [facility] Address: [address] [place] [address] Performed By: #### 5 8410-2 ####[facility] [id number] [place] [address] [place] MCH (RBC) [Entitic mass] 27.9 pg Normal 26.0-34.0 [facility] Comment on above: Order Comment: Speci men Type: BLOOD SPECIMENOrdering Facility: [facility] Address: [address] [place] [address] Performed By: #### 5 8410-2 ####[facility] [id number] [place] [address] [place] MCHC (RBC) [Mass/Vol] 32.0 g/dL Normal 30.5-36.0 [facility] Comment on above: Order Comment: Speci men Type: BLOOD SPECIMENOrdering Facility: [facility] Address: [address] [place] [address] Performed By: #### 5 8410-2 ####[facility] [id number] [place] [address] [place] MCV (RBC) [Entitic vol] 87.1 fL Normal 80.0-100.0 [facility] Comment on above: Order Comment: Speci men Type: BLOOD SPECIMENOrdering Facility: [facility] Address: [address] [place] [address] Performed By: #### 5 8410-2 ####[facility] [id number] [place] [address] [place] Nucleated RBC (Bld) [#/Vol] 10*3/uL Normal <0.01 [facility] Comment on above: Order Comment: Speci men Type: BLOOD SPECIMENOrdering Facility: [facility] Address: [address] [place] [address] Performed By: #### 5 8410-2 ####[facility] [id number] [place] [address] [place] Platelet mean volume (Bld) [Entitic vol] 10.1 fL Normal 9.0-12.7 [facility] Comment on above: Order Comment: Speci men Type: BLOOD SPECIMENOrdering Facility: [facility] Address: [address] [place] [address] Performed By: #### 5 8410-2 ####[facility] [id number] [place] [address] [place] Platelets (Bld) [#/Vol] 186 10*3/uL Normal 150-400 [facility] Comment on above: Order Comment: Speci men Type: BLOOD SPECIMENOrdering Facility: [facility] Address: [address] [place] [address] Performed By: #### 5 8410-2 ####[facility] [id number] [place] [address] [place] RBC (Bld) [#/Vol] 3.87 10*6/uL Low 3.90-5.20 [facility] Comment on above: Order Comment: Speci men Type: BLOOD SPECIMENOrdering Facility: [facility] Address: [address] [place] [address] Performed By: #### 5 8410-2 ####[facility] [id number] [place] [address] [place] WBC (Bld) [#/Vol] 11.83 10*3/uL High 3.70-11.00 [facility] Comment on above: Order Comment: Speci men Type: BLOOD SPECIMENOrdering Facility: [facility] Address: [address] [place] [address] Performed By: #### 5 8410-2 ####[facility] [id number] [place] [address] [place] Comprehensive metabolic 2000 panelon 09-10-2024 Albumin [Mass/Vol] 3.3 g/dL Low 3.9-4.9 [facility] Comment on above: Order Comment: Speci men Type: BLOOD SPECIMENOrdering Facility: [facility] Address: [address] [place] [address] Performed By: #### 2 4323-8 ####[facility] [id number] [place] [address] [place]#### HSTNT ####[facility] [id number] [place] [address] [place] ALP [Catalytic activity/Vol] 48 U/L Normal 34-123 [facility] Comment on above: Order Comment: Speci men Type: BLOOD SPECIMENOrdering Facility: [facility] Address: [address] [place] [address] Performed By: #### 2 4323-8 ####[facility] [id number] [place] [address] [place]#### HSTNT ####[facility] [id number] [facility] [address] [address] [place] ALT [Catalytic activity/Vol] 10 U/L Normal 7-38 [facility] Comment on above: Order Comment: Speci men Type: BLOOD SPECIMENOrdering Facility: [facility] Address: [address] [place] [address] Performed By: #### 2 4323-8 ####[facility] [id number] [facility] [place] [id number] [place]#### HSTNT ####[facility] [id number] [place] [address] [place] Anion gap [Moles/Vol] 10 mmol/L Normal 8-15 [facility] Comment on above: Order Comment: Speci men Type: BLOOD SPECIMENOrdering Facility: [facility] Address: [address] [place] [address] Performed By: #### 2 4323-8 ####[facility] [id number] [place] [address] [place]#### HSTNT ####[facility] [id number] [place] [id number] [place] AST [Catalytic activity/Vol] 48 U/L High 13-35 [facility] Comment on above: Order Comment: Speci men Type: BLOOD SPECIMENOrdering Facility: [facility] Address: [address] [place], [place] [address] Performed By: #### 2 4323-8 ####[facility] [id number] [place] [address] [place]#### HSTNT ####[facility] [id number] [place] [id number] [place] Bilirubin [Mass/Vol] 0.3 mg/dL Normal 0.2-1.3 [facility] Comment on above: Order Comment: Speci men Type: BLOOD SPECIMENOrdering Facility: [facility] Address: [address] [place] [address] Performed By: #### 2 4323-8 ####[facility] [id number] [place] [address] [place]#### HSTNT ####[facility] [id number] [place] [address] [place] Calcium [Mass/Vol] 8.5 mg/dL Normal 8.5-10.2 [facility] Comment on above: Order Comment: Speci men Type: BLOOD SPECIMENOrdering Facility: [facility] Address: [address] [place] [address] Performed By: #### 2 4323-8 ####[facility] [id number] [place] [address] [place]#### HSTNT ####[facility] [id number] [place] [address] [place] Chloride [Moles/Vol] 104 mmol/L Normal 98-107 [facility] Comment on above: Order Comment: Speci men Type: BLOOD SPECIMENOrdering Facility: [facility] Address: [address] [place] [address] Performed By: #### 2 4323-8 ####[facility] [id number] [place] [id number] [place]#### HSTNT ####[facility] [id number] [place] [address] [place] CO2 [Moles/Vol] 26 mmol/L Normal 22-30 [facility] Comment on above: Order Comment: Speci men Type: BLOOD SPECIMENOrdering Facility: [facility] Address: [address] [place] [address] Performed By: #### 2 4323-8 ####[facility] [id number] [facility] [place] [address] [place]#### HSTNT ####[facility] [id number] [place] [address] [place] Creatinine [Mass/Vol] 0.71 mg/dL Normal 0.58-0.96 [facility] Comment on above: Order Comment: Speci men Type: BLOOD SPECIMENOrdering Facility: [facility] Address: [address] [place] [address] Performed By: #### 2 4323-8 ####[facility] [id number] [place] [address] [place]#### HSTNT ####[facility] [id number] [address] [place] [facility] Creatinine and Glomerular filtration rate.predicted panel (S/P/Bld) 94 mL/min/1.73m??? Normal >=60 [facility] Comment on above: Order Comment: Speci men Type: BLOOD SPECIMENOrdering Facility: [facility] Address: [address] [place] [address] Result Comment: Lexie mated Glomerular Filtration Rate [...] actual GFR. Performed By: #### 2 4323-8 ####[facility] [id number] [place] [address] [place]#### HSTNT ####[facility] [id number] [place] [id number] [place] Glucose [Mass/Vol] 149 mg/dL High 74-99 [facility] Comment on above: Order Comment: Speci men Type: BLOOD SPECIMENOrdering Facility: [facility] Address: [address] [place] [address] Result Comment: The [place] [employer] (ADA) provides guidance for cutoff [...] Standards of Medical Care in Diabetes 2016, [place] [employer]. Diabetes Care. 2016.39(Suppl 1). Performed By: #### 2 4323-8 ####[facility] [id number] [place] [address] [place]#### HSTNT ####[facility] [id number] [place] [id number] [place] Potassium [Moles/Vol] 4.1 mmol/L Normal 3.7-5.1 [facility] Comment on above: Order Comment: Speci men Type: BLOOD SPECIMENOrdering Facility: [facility] Address: [address] [place] [address] Performed By: #### 2 4323-8 ####[facility] [id number] [place] [address] [place]#### HSTNT ####[facility] [id number] [address] [address] [place] Protein [Mass/Vol] 6.1 g/dL Low 6.3-8.0 [facility] Comment on above: Order Comment: Speci men Type: BLOOD SPECIMENOrdering Facility: [facility] Address: [address] [place] [address] Performed By: #### 2 4323-8 ####[facility] [id number] [place] [address] [place]#### HSTNT ####[facility] [id number] [place] [address] [place] Sodium [Moles/Vol] 140 mmol/L Normal 136-144 [facility] Comment on above: Order Comment: Speci men Type: BLOOD SPECIMENOrdering Facility: [facility] Address: [address] [place] [address] Performed By: #### 2 4323-8 ####[facility] [id number] [place] [address] [place]#### HSTNT ####[facility] [id number] [place] [address] [place] Urea nitrogen [Mass/Vol] 20 mg/dL Normal 7-21 [facility] Comment on above: Order Comment: Speci men Type: BLOOD SPECIMENOrdering Facility: [facility] Address: [address] [place] [address] Performed By: #### 2 4323-8 ####[facility] [id number] [place] [address] [place]#### HSTNT ####[facility] [id number] [place] [address] [place] HIGH SENSITIVITY TROPONIN To n 09-10-2024 Troponin T.cardiac High sensitivity method [Mass/Vol] 532 ng/L High <12 [facility] Comment on above: Order Comment: Speci men Type: BLOOD SPECIMENOrdering Facility: [facility] Address: [address] [place] [address] Performed By: #### 2 4323-8 ####[facility] [id number] [place] [address] [place]#### HSTNT ####[facility] [id number] [place] [address] [place] XR CHEST 1V FRONTAL PORTon 0 09-10-2024 XR CHEST 1V FRONTAL PORT Normal [facility] XR CHEST 1V FRONTAL PORT Normal [facility] ANES POSTPROC EVALon 025 ANES POSTPROC EVAL Normal [facility] ANES PRE-OPon 09-09-2024 ANES PRE-OP Normal [facility] ARTERIAL BLOOD GASESon 09-09 Base excess Calc (Bld) [Moles/Vol] 3 mmol/L High 0-2 [facility] Comment on above: Order Comment: Speci men Type: ARTERIAL BLOOD SPECIMENOrdering Facility: [facility] Address: [address] [place] [address] Performed By: #### A LLBG ####[facility] [id number] [place] [address] [place] Body temperature 98.42 [degF] Normal [facility] Comment on above: Order Comment: Speci men Type: ARTERIAL BLOOD SPECIMENOrdering Facility: [facility] Address: [address] [place] [address] Performed By: #### A LLBG ####[facility] [id number] [place] [address] [place] Calcium.ionized (Bld) [Mass/Vol] 1.20 mmol/L Normal 1.08-1.30 [facility] Comment on above: Order Comment: Speci men Type: ARTERIAL BLOOD SPECIMENOrdering Facility: [facility] Address: [address] [place] [address] Performed By: #### A LLBG ####[facility] [id number] [place] [address] [place] Calcium.ionized adjusted to pH 7.4 (BldA) [Moles/Vol] 1.22 mmol/L Normal 1.08-1.30 [facility] Comment on above: Order Comment: Speci men Type: ARTERIAL BLOOD SPECIMENOrdering Facility: [facility] Address: [address] [place] [address] Performed By: #### A LLBG ####[facility] [id number] [place] [address] [place] Carboxyhemoglobin (BldA) [Mass fraction] 1.1 % Normal 0.0-2.0 [facility] Comment on above: Order Comment: Speci men Type: ARTERIAL BLOOD SPECIMENOrdering Facility: [facility] Address: [address] [place] [address] Result Comment: Carb oxyhemoglobin Reference Range for Smokers: 2.0-8.0% Performed By: #### A LLBG ####[facility] [id number] [place] [address] [place] CO2 (Bld) [Partial pressure] 41 mm Hg Normal 36-46 [facility] Comment on above: Order Comment: Speci men Type: ARTERIAL BLOOD SPECIMENOrdering Facility: [facility] Address: [address] [place] [address] Performed By: #### A LLBG ####[facility] [id number] [place] [address] [place] CO2 adjusted to patient's actual temperature (Bld) [Partial pressure] 40 mmHg Normal 36-46 [facility] Comment on above: Order Comment: Speci men Type: ARTERIAL BLOOD SPECIMENOrdering Facility: [facility] Address: [address] [place] [address] Performed By: #### A LLBG ####[facility] [id number] [place] [address] [place] Glucose [Mass/Vol] 161 mg/dL High 60-105 [facility] Comment on above: Order Comment: Speci men Type: ARTERIAL BLOOD SPECIMENOrdering Facility: [facility] Address: [address] [place] [address] Performed By: #### A LLBG ####[facility] [id number] [place] [address] [place] HCO3 (Bld) [Moles/Vol] 27 mmol/L High 22-26 [facility] Comment on above: Order Comment: Speci men Type: ARTERIAL BLOOD SPECIMENOrdering Facility: [facility] Address: [address] [place] [address] Performed By: #### A LLBG ####[facility] [id number] [place] [address] [place] Hematocrit (Bld) [Volume fraction] 34.8 % Low 36.0-46.0 [facility] Comment on above: Order Comment: Speci men Type: ARTERIAL BLOOD SPECIMENOrdering Facility: [facility] Address: [address] [place] [address] Performed By: #### A LLBG ####[facility] [id number] [place] [address] [place] Hemoglobin (Bld) [Mass/Vol] 11.3 g/dL Low 11.5-15.5 [facility] Comment on above: Order Comment: Speci men Type: ARTERIAL BLOOD SPECIMENOrdering Facility: [facility] Address: [address] [place] [address] Performed By: #### A LLBG ####[facility] [id number] [place] [address] [place] Lactate [Moles/Vol] 1.3 mmol/L Normal 0.5-2.2 [facility] Comment on above: Order Comment: Speci men Type: ARTERIAL BLOOD SPECIMENOrdering Facility: [facility] Address: [address] [place] [id number] Performed By: #### A LLBG ####[facility] [id number] [place] [address] [place] LITERS 2 Liters/min Normal [facility] Comment on above: Order Comment: Speci men Type: ARTERIAL BLOOD SPECIMENOrdering Facility: [facility] Address: [address] [place] [id number] Performed By: #### A LLBG ####[facility] [id number] [place] [address] [place] Methemoglobin (Bld) [Mass fraction] 0.5 % Normal 0.0-1.5 [facility] Comment on above: Order Comment: Speci men Type: ARTERIAL BLOOD SPECIMENOrdering Facility: [facility] Address: [address] [place] [address] Performed By: #### A LLBG ####[facility] [id number] [place] [address] [place] O2 THERAPY NC = Nasal Cannula Normal [facility] Comment on above: Order Comment: Speci men Type: ARTERIAL BLOOD SPECIMENOrdering Facility: [facility] Address: [address] [place], [place] [id number] Performed By: #### A LLBG ####[facility] [id number] [place] [address] [place] Oxygen (Bld) [Partial pressure] 105 mm Hg High 85-95 [facility] Comment on above: Order Comment: Speci men Type: ARTERIAL BLOOD SPECIMENOrdering Facility: [facility] Address: [address] [place], [place] [id number] Performed By: #### A LLBG ####[facility] [id number] [place] [address] [place] Oxygen adjusted to patient's actual temperature (Bld) [Partial pressure] 105 mmHg High 85-95 [facility] Comment on above: Order Comment: Speci men Type: ARTERIAL BLOOD SPECIMENOrdering Facility: [facility] Address: [address] [place] [address] Performed By: #### A LLBG ####[facility] [id number] [address] [address] [place] Oxyhemoglobin (BldA) [Mass fraction] 97 % Normal 95-98 [facility] Comment on above: Order Comment: Speci men Type: ARTERIAL BLOOD SPECIMENOrdering Facility: [facility] Address: [address] [place] [address] Performed By: #### A LLBG ####[facility] [id number] [place] [address] [place] pH (Bld) 7.43 [pH] Normal 7.35-7.45 [facility] Comment on above: Order Comment: Speci men Type: ARTERIAL BLOOD SPECIMENOrdering Facility: [facility] Address: [address] [place] [address] Performed By: #### A LLBG ####[facility] [id number] [place] [address] [place] pH adjusted to patient's actual temperature (Bld) 7.44 Normal 7.35-7.45 [facility] Comment on above: Order Comment: Speci men Type: ARTERIAL BLOOD SPECIMENOrdering Facility: [facility] Address: [address] [place] [address] Performed By: #### A LLBG ####[facility] [id number] [place] [address] [place] Potassium [Moles/Vol] 4.0 mmol/L Normal 3.5-5.0 [facility] Comment on above: Order Comment: Speci men Type: ARTERIAL BLOOD SPECIMENOrdering Facility: [facility] Address: [address] [place] [address] Performed By: #### A LLBG ####[facility] [id number] [place] [address] [place] Sodium [Moles/Vol] 140 mmol/L Normal 136-144 [facility] Comment on above: Order Comment: Speci men Type: ARTERIAL BLOOD SPECIMENOrdering Facility: [facility] Address: [address] [place] [address] Performed By: #### A LLBG ####[facility] [id number] [place] [address] [place] Base excess Calc (Bld) [Moles/Vol] 2 mmol/L Normal 0-2 [facility] Comment on above: Order Comment: Speci men Type: ARTERIAL BLOOD SPECIMENOrdering Facility: [facility] Address: [address] [place] [address] Performed By: #### A LLBG ####[facility] [id number] [place] [address] [place] Body temperature 97.88 [degF] Normal [facility] Comment on above: Order Comment: Speci men Type: ARTERIAL BLOOD SPECIMENOrdering Facility: [facility] Address: [address] [place] [address] Performed By: #### A LLBG ####[facility] [id number] [place] [address] [place] Calcium.ionized (Bld) [Mass/Vol] 1.19 mmol/L Normal 1.08-1.30 [facility] Comment on above: Order Comment: Speci men Type: ARTERIAL BLOOD SPECIMENOrdering Facility: [facility] Address: [address] [place] [address] Performed By: #### A LLBG ####[facility] [id number] [place] [address] [place] Calcium.ionized adjusted to pH 7.4 (BldA) [Moles/Vol] 1.20 mmol/L Normal 1.08-1.30 [facility] Comment on above: Order Comment: Speci men Type: ARTERIAL BLOOD SPECIMENOrdering Facility: [facility] Address: [address] [place] [address] Performed By: #### A LLBG ####[facility] [id number] [place] [address] [place] Carboxyhemoglobin (BldA) [Mass fraction] 1.0 % Normal 0.0-2.0 [facility] Comment on above: Order Comment: Speci men Type: ARTERIAL BLOOD SPECIMENOrdering Facility: [facility] Address: [address] [place] [address] Result Comment: Carb oxyhemoglobin Reference Range for Smokers: 2.0-8.0% Performed By: #### A LLBG ####[facility] [id number] [place] [address] [place] CO2 (Bld) [Partial pressure] 43 mm Hg Normal 36-46 [facility] Comment on above: Order Comment: Speci men Type: ARTERIAL BLOOD SPECIMENOrdering Facility: [facility] Address: [address] [place] [address] Performed By: #### A LLBG ####[facility] [id number] [place] [address] [place] CO2 adjusted to patient's actual temperature (Bld) [Partial pressure] 42 mmHg Normal 36-46 [facility] Comment on above: Order Comment: Speci men Type: ARTERIAL BLOOD SPECIMENOrdering Facility: [facility] Address: [address] [place] [address] Performed By: #### A LLBG ####[facility] [id number] [place] [address] [place] Glucose [Mass/Vol] 158 mg/dL High 60-105 [facility] Comment on above: Order Comment: Speci men Type: ARTERIAL BLOOD SPECIMENOrdering Facility: [facility] Address: [address] [place] [address] Performed By: #### A LLBG ####[facility] [id number] [place] [address] [place] HCO3 (Bld) [Moles/Vol] 27 mmol/L High 22-26 [facility] Comment on above: Order Comment: Speci men Type: ARTERIAL BLOOD SPECIMENOrdering Facility: [facility] Address: [address] [place] [address] Performed By: #### A LLBG ####[facility] [id number] [place] [address] [place] Hematocrit (Bld) [Volume fraction] 36.7 % Normal 36.0-46.0 [facility] Comment on above: Order Comment: Speci men Type: ARTERIAL BLOOD SPECIMENOrdering Facility: [facility] Address: [address] [place] [address] Performed By: #### A LLBG ####[facility] [id number] [place] [address] [place] Hemoglobin (Bld) [Mass/Vol] 11.9 g/dL Normal 11.5-15.5 [facility] Comment on above: Order Comment: Speci men Type: ARTERIAL BLOOD SPECIMENOrdering Facility: [facility] Address: [address] [place] [address] Performed By: #### A LLBG ####[facility] [id number] [place] [address] [place] Lactate [Moles/Vol] 1.1 mmol/L Normal 0.5-2.2 [facility] Comment on above: Order Comment: Speci men Type: ARTERIAL BLOOD SPECIMENOrdering Facility: [facility] Address: [address] [place] [address] Performed By: #### A LLBG ####[facility] [id number] [address] [address] [place] LITERS 4 Liters/min Normal [facility] Comment on above: Order Comment: Speci men Type: ARTERIAL BLOOD SPECIMENOrdering Facility: [facility] Address: [address] [place] [id number] Performed By: #### A LLBG ####[facility] [id number] [place] [id number] [place] Methemoglobin (Bld) [Mass fraction] 0.9 % Normal 0.0-1.5 [facility] Comment on above: Order Comment: Speci men Type: ARTERIAL BLOOD SPECIMENOrdering Facility: [facility] Address: [address] [place] [id number] Performed By: #### A LLBG ####[facility] [id number] [place] [address] [place] O2 THERAPY NC = Nasal Cannula Normal [facility] Comment on above: Order Comment: Speci men Type: ARTERIAL BLOOD SPECIMENOrdering Facility: [facility] Address: [address] [place] [id number] Performed By: #### A LLBG ####[facility] [id number] [place] [id number] [place] Oxygen (Bld) [Partial pressure] 116 mm Hg High 85-95 [facility] Comment on above: Order Comment: Speci men Type: ARTERIAL BLOOD SPECIMENOrdering Facility: [facility] Address: [address] [place] [address] Performed By: #### A LLBG ####[facility] [id number] [place] [id number] [place] Oxygen adjusted to patient's actual temperature (Bld) [Partial pressure] 113 mmHg High 85-95 [facility] Comment on above: Order Comment: Speci men Type: ARTERIAL BLOOD SPECIMENOrdering Facility: [facility] Address: [address] [place] [id number] Performed By: #### A LLBG ####[facility] [id number] [place] [address] [place] Oxyhemoglobin (BldA) [Mass fraction] 97 % Normal 95-98 [facility] Comment on above: Order Comment: Speci men Type: ARTERIAL BLOOD SPECIMENOrdering Facility: [facility] Address: [address] [place] [address] Performed By: #### A LLBG ####[facility] [id number] [place] [address] [place] pH (Bld) 7.41 [pH] Normal 7.35-7.45 [facility] Comment on above: Order Comment: Speci men Type: ARTERIAL BLOOD SPECIMENOrdering Facility: [facility] Address: [address] [place] [address] Performed By: #### A LLBG ####[facility] [id number] [place] [address] [place] pH adjusted to patient's actual temperature (Bld) 7.42 Normal 7.35-7.45 [facility] Comment on above: Order Comment: Speci men Type: ARTERIAL BLOOD SPECIMENOrdering Facility: [facility] Address: [address] [place] [address] Performed By: #### A LLBG ####[facility] [id number] [place] [address] [place] Potassium [Moles/Vol] 4.4 mmol/L Normal 3.5-5.0 [facility] Comment on above: Order Comment: Speci men Type: ARTERIAL BLOOD SPECIMENOrdering Facility: [facility] Address: [address] [place] [address] Performed By: #### A LLBG ####[facility] [id number] [place] [address] [place] Sodium [Moles/Vol] 139 mmol/L Normal 136-144 [facility] Comment on above: Order Comment: Speci men Type: ARTERIAL BLOOD SPECIMENOrdering Facility: [facility] Address: [address] [place] [address] Performed By: #### A LLBG ####[facility] [id number] [place] [address] [place] Base excess Calc (Bld) [Moles/Vol] 2 mmol/L Normal 0-2 [facility] Comment on above: Order Comment: Speci men Type: ARTERIAL BLOOD SPECIMENOrdering Facility: [facility] Address: [address] [place] [address] Performed By: #### A LLBG ####[facility] [id number] [place] [address] [place] Body temperature 98.6 [degF] Normal [facility] Comment on above: Order Comment: Speci men Type: ARTERIAL BLOOD SPECIMENOrdering Facility: [facility] Address: [address] [place] [address] Performed By: #### A LLBG ####[facility] [id number] [place] [address] [place] Calcium.ionized (Bld) [Mass/Vol] 1.21 mmol/L Normal 1.08-1.30 [facility] Comment on above: Order Comment: Speci men Type: ARTERIAL BLOOD SPECIMENOrdering Facility: [facility] Address: [address] [place] [address] Performed By: #### A LLBG ####[facility] [id number] [place] [address] [place] Calcium.ionized adjusted to pH 7.4 (BldA) [Moles/Vol] 1.20 mmol/L Normal 1.08-1.30 [facility] Comment on above: Order Comment: Speci men Type: ARTERIAL BLOOD SPECIMENOrdering Facility: [facility] Address: [address] [place] [address] Performed By: #### A LLBG ####[facility] [id number] [place] [address] [place] Carboxyhemoglobin (BldA) [Mass fraction] 1.0 % Normal 0.0-2.0 [facility] Comment on above: Order Comment: Speci men Type: ARTERIAL BLOOD SPECIMENOrdering Facility: [facility] Address: [address] [place] [address] Result Comment: Carb oxyhemoglobin Reference Range for Smokers: 2.0-8.0% Performed By: #### A LLBG ####[facility] [id number] [place] [address] [place] CO2 (Bld) [Partial pressure] 45 mm Hg Normal 36-46 [facility] Comment on above: Order Comment: Speci men Type: ARTERIAL BLOOD SPECIMENOrdering Facility: [facility] Address: [address] [place] [address] Performed By: #### A LLBG ####[facility] [id number] [place] [address] [place] Glucose [Mass/Vol] 150 mg/dL High 60-105 [facility] Comment on above: Order Comment: Speci men Type: ARTERIAL BLOOD SPECIMENOrdering Facility: [facility] Address: [address] [place] [address] Performed By: #### A LLBG ####[facility] [id number] [place] [address] [place] HCO3 (Bld) [Moles/Vol] 27 mmol/L High 22-26 [facility] Comment on above: Order Comment: Speci men Type: ARTERIAL BLOOD SPECIMENOrdering Facility: [facility] Address: [address] [place] [address] Performed By: #### A LLBG ####[facility] [id number] [place] [address] [place] Hematocrit (Bld) [Volume fraction] 36.3 % Normal 36.0-46.0 [facility] Comment on above: Order Comment: Speci men Type: ARTERIAL BLOOD SPECIMENOrdering Facility: [facility] Address: [address] [place] [address] Performed By: #### A LLBG ####[facility] [id number] [place] [address] [place] Hemoglobin (Bld) [Mass/Vol] 11.8 g/dL Normal 11.5-15.5 [facility] Comment on above: Order Comment: Speci men Type: ARTERIAL BLOOD SPECIMENOrdering Facility: [facility] Address: [address] [place] [address] Performed By: #### A LLBG ####[facility] [id number] [place] [address] [place] Lactate [Moles/Vol] 0.9 mmol/L Normal 0.5-2.2 [facility] Comment on above: Order Comment: Speci men Type: ARTERIAL BLOOD SPECIMENOrdering Facility: [facility] Address: [address] [place] [address] Performed By: #### A LLBG ####[facility] [id number] [place] [address] [place] LITERS 4 Liters/min Normal [facility] Comment on above: Order Comment: Speci men Type: ARTERIAL BLOOD SPECIMENOrdering Facility: [facility] Address: [address] [place] [address] Performed By: #### A LLBG ####[facility] [id number] [place] [address] [place] Methemoglobin (Bld) [Mass fraction] 0.5 % Normal 0.0-1.5 [facility] Comment on above: Order Comment: Speci men Type: ARTERIAL BLOOD SPECIMENOrdering Facility: [facility] Address: [address] [place] [address] Performed By: #### A LLBG ####[facility] [id number] [place] [address] [place] O2 THERAPY NC = Nasal Cannula Normal [facility] Comment on above: Order Comment: Speci men Type: ARTERIAL BLOOD SPECIMENOrdering Facility: [facility] Address: [address] [place] [address] Performed By: #### A LLBG ####[facility] [id number] [place] [address] [place] Oxygen (Bld) [Partial pressure] 128 mm Hg High 85-95 [facility] Comment on above: Order Comment: Speci men Type: ARTERIAL BLOOD SPECIMENOrdering Facility: [facility] Address: [address] [place] [address] Performed By: #### A LLBG ####[facility] [id number] [place] [address] [place] Oxyhemoglobin (BldA) [Mass fraction] 97 % Normal 95-98 [facility] Comment on above: Order Comment: Speci men Type: ARTERIAL BLOOD SPECIMENOrdering Facility: [facility] Address: [address] [place] [address] Performed By: #### A LLBG ####[facility] [id number] [place] [address] [place] pH (Bld) 7.39 [pH] Normal 7.35-7.45 [facility] Comment on above: Order Comment: Speci men Type: ARTERIAL BLOOD SPECIMENOrdering Facility: [facility] Address: [address] [place] [address] Performed By: #### A LLBG ####[facility] [id number] [place] [address] [place] Potassium [Moles/Vol] 4.2 mmol/L Normal 3.5-5.0 [facility] Comment on above: Order Comment: Speci men Type: ARTERIAL BLOOD SPECIMENOrdering Facility: [facility] Address: [address] [place] [address] Performed By: #### A LLBG ####[facility] [id number] [place] [address] [place] Sodium [Moles/Vol] 139 mmol/L Normal 136-144 [facility] Comment on above: Order Comment: Speci men Type: ARTERIAL BLOOD SPECIMENOrdering Facility: [facility] Address: [address] [place] [address] Performed By: #### A LLBG ####[facility] [id number] [place] [address] [place] Base excess Calc (Bld) [Moles/Vol] 0 mmol/L Normal 0-2 [facility] Comment on above: Order Comment: Speci men Type: ARTERIAL BLOOD SPECIMENOrdering Facility: [facility] Address: [address] [place] [address] Performed By: #### A LLBG ####[facility] [id number] [place] [address] [place] Body temperature 98.6 [degF] Normal [facility] Comment on above: Order Comment: Speci men Type: ARTERIAL BLOOD SPECIMENOrdering Facility: [facility] Address: [address] [place] [address] Performed By: #### A LLBG ####[facility] [id number] [place] [address] [place] Calcium.ionized (Bld) [Mass/Vol] 1.22 mmol/L Normal 1.08-1.30 [facility] Comment on above: Order Comment: Speci men Type: ARTERIAL BLOOD SPECIMENOrdering Facility: [facility] Address: [address] [place] [address] Performed By: #### A LLBG ####[facility] [id number] [place] [address] [place] Calcium.ionized adjusted to pH 7.4 (BldA) [Moles/Vol] 1.20 mmol/L Normal 1.08-1.30 [facility] Comment on above: Order Comment: Speci men Type: ARTERIAL BLOOD SPECIMENOrdering Facility: [facility] Address: [address] [place] [address] Performed By: #### A LLBG ####[facility] [id number] [place] [address] [place] Carboxyhemoglobin (BldA) [Mass fraction] 1.1 % Normal 0.0-2.0 [facility] Comment on above: Order Comment: Speci men Type: ARTERIAL BLOOD SPECIMENOrdering Facility: [facility] Address: [address] [place] [address] Result Comment: Carb oxyhemoglobin Reference Range for Smokers: 2.0-8.0% Performed By: #### A LLBG ####[facility] [id number] [place] [address] [place] CO2 (Bld) [Partial pressure] 45 mm Hg Normal 36-46 [facility] Comment on above: Order Comment: Speci men Type: ARTERIAL BLOOD SPECIMENOrdering Facility: [facility] Address: [address] [place] [address] Performed By: #### A LLBG ####[facility] [id number] [place] [address] [place] Glucose [Mass/Vol] 147 mg/dL High 60-105 [facility] Comment on above: Order Comment: Speci men Type: ARTERIAL BLOOD SPECIMENOrdering Facility: [facility] Address: [address] [place] [address] Performed By: #### A LLBG ####[facility] [id number] [place] [address] [place] HCO3 (Bld) [Moles/Vol] 25 mmol/L Normal 22-26 [facility] Comment on above: Order Comment: Speci men Type: ARTERIAL BLOOD SPECIMENOrdering Facility: [facility] Address: [address] [place] [address] Performed By: #### A LLBG ####[facility] [id number] [place] [address] [place] Hematocrit (Bld) [Volume fraction] 38.7 % Normal 36.0-46.0 [facility] Comment on above: Order Comment: Speci men Type: ARTERIAL BLOOD SPECIMENOrdering Facility: [facility] Address: [address] [place] [address] Performed By: #### A LLBG ####[facility] [id number] [place] [address] [place] Hemoglobin (Bld) [Mass/Vol] 12.6 g/dL Normal 11.5-15.5 [facility] Comment on above: Order Comment: Speci men Type: ARTERIAL BLOOD SPECIMENOrdering Facility: [facility] Address: [address] [place] [address] Performed By: #### A LLBG ####[facility] [id number] [place] [address] [place] Lactate [Moles/Vol] 1.1 mmol/L Normal 0.5-2.2 [facility] Comment on above: Order Comment: Speci men Type: ARTERIAL BLOOD SPECIMENOrdering Facility: [facility] Address: [address] [place] [address] Performed By: #### A LLBG ####[facility] [id number] [place] [address] [place] LITERS 4 Liters/min Normal [facility] Comment on above: Order Comment: Speci men Type: ARTERIAL BLOOD SPECIMENOrdering Facility: [facility] Address: [address] [place] [address] Performed By: #### A LLBG ####[facility] [id number] [place] [address] [place] Methemoglobin (Bld) [Mass fraction] 0.8 % Normal 0.0-1.5 [facility] Comment on above: Order Comment: Speci men Type: ARTERIAL BLOOD SPECIMENOrdering Facility: [facility] Address: [address] [place] [address] Performed By: #### A LLBG ####[facility] [id number] [place] [address] [place] O2 THERAPY NC = Nasal Cannula Normal [facility] Comment on above: Order Comment: Speci men Type: ARTERIAL BLOOD SPECIMENOrdering Facility: [facility] Address: [address] [place] [address] Performed By: #### A LLBG ####[facility] [id number] [place] [address] [place] Oxygen (Bld) [Partial pressure] 104 mm Hg High 85-95 [facility] Comment on above: Order Comment: Speci men Type: ARTERIAL BLOOD SPECIMENOrdering Facility: [facility] Address: [address] [place] [address] Performed By: #### A LLBG ####[facility] [id number] [place] [address] [place] Oxyhemoglobin (BldA) [Mass fraction] 96 % Normal 95-98 [facility] Comment on above: Order Comment: Speci men Type: ARTERIAL BLOOD SPECIMENOrdering Facility: [facility] Address: [address] [place] [address] Performed By: #### A LLBG ####[facility] [id number] [place] [address] [place] pH (Bld) 7.37 [pH] Normal 7.35-7.45 [facility] Comment on above: Order Comment: Speci men Type: ARTERIAL BLOOD SPECIMENOrdering Facility: [facility] Address: [address] [place] [address] Performed By: #### A LLBG ####[facility] [id number] [place] [address] [place] Potassium [Moles/Vol] 4.1 mmol/L Normal 3.5-5.0 [facility] Comment on above: Order Comment: Speci men Type: ARTERIAL BLOOD SPECIMENOrdering Facility: [facility] Address: [address] [place] [address] Performed By: #### A LLBG ####[facility] [id number] [place] [address] [place] Sodium [Moles/Vol] 140 mmol/L Normal 136-144 [facility] Comment on above: Order Comment: Speci men Type: ARTERIAL BLOOD SPECIMENOrdering Facility: [facility] Address: [address] [place] [address] Performed By: #### A LLBG ####[facility] [id number] [place] [address] [place] Base excess Calc (Bld) [Moles/Vol] 0 mmol/L Normal 0-2 [facility] Comment on above: Order Comment: Speci men Type: ARTERIAL BLOOD SPECIMENOrdering Facility: [facility] Address: [address] [place] [address] Performed By: #### A LLBG ####[facility] [id number] [place] [address] [place] Body temperature 98.6 [degF] Normal [facility] Comment on above: Order Comment: Speci men Type: ARTERIAL BLOOD SPECIMENOrdering Facility: [facility] Address: [address] [place] [address] Performed By: #### A LLBG ####[facility] [id number] [place] [address] [place] Calcium.ionized (Bld) [Mass/Vol] 1.27 mmol/L Normal 1.08-1.30 [facility] Comment on above: Order Comment: Speci men Type: ARTERIAL BLOOD SPECIMENOrdering Facility: [facility] Address: [address] [place] [address] Performed By: #### A LLBG ####[facility] [id number] [place] [address] [place] Calcium.ionized adjusted to pH 7.4 (BldA) [Moles/Vol] 1.24 mmol/L Normal 1.08-1.30 [facility] Comment on above: Order Comment: Speci men Type: ARTERIAL BLOOD SPECIMENOrdering Facility: [facility] Address: [address] [place] [address] Performed By: #### A LLBG ####[facility] [id number] [place] [address] [place] Carboxyhemoglobin (BldA) [Mass fraction] 1.3 % Normal 0.0-2.0 [facility] Comment on above: Order Comment: Speci men Type: ARTERIAL BLOOD SPECIMENOrdering Facility: [facility] Address: [address] [place] [address] Result Comment: Carb oxyhemoglobin Reference Range for Smokers: 2.0-8.0% Performed By: #### A LLBG ####[facility] [id number] [place] [address] [place] CO2 (Bld) [Partial pressure] 47 mm Hg High 36-46 [facility] Comment on above: Order Comment: Speci men Type: ARTERIAL BLOOD SPECIMENOrdering Facility: [facility] Address: [address] [place] [address] Performed By: #### A LLBG ####[facility] [id number] [place] [address] [place] FIO2 40 % Normal [facility] Comment on above: Order Comment: Speci men Type: ARTERIAL BLOOD SPECIMENOrdering Facility: [facility] Address: [address] [place] [address] Performed By: #### A LLBG ####[facility] [id number] [place] [address] [place] Glucose [Mass/Vol] 133 mg/dL High 60-105 [facility] Comment on above: Order Comment: Speci men Type: ARTERIAL BLOOD SPECIMENOrdering Facility: [facility] Address: [address] [place] [address] Performed By: #### A LLBG ####[facility] [id number] [place] [address] [place] HCO3 (Bld) [Moles/Vol] 26 mmol/L Normal 22-26 [facility] Comment on above: Order Comment: Speci men Type: ARTERIAL BLOOD SPECIMENOrdering Facility: [facility] Address: [address] [place] [address] Performed By: #### A LLBG ####[facility] [id number] [place] [address] [place] Hematocrit (Bld) [Volume fraction] 37.9 % Normal 36.0-46.0 [facility] Comment on above: Order Comment: Speci men Type: ARTERIAL BLOOD SPECIMENOrdering Facility: [facility] Address: [address] [place] [address] Performed By: #### A LLBG ####[facility] [id number] [place] [address] [place] Hemoglobin (Bld) [Mass/Vol] 12.3 g/dL Normal 11.5-15.5 [facility] Comment on above: Order Comment: Speci men Type: ARTERIAL BLOOD SPECIMENOrdering Facility: [facility] Address: [address] [place] [address] Performed By: #### A LLBG ####[facility] [id number] [place] [address] [place] Lactate [Moles/Vol] 1.2 mmol/L Normal 0.5-2.2 [facility] Comment on above: Order Comment: Speci men Type: ARTERIAL BLOOD SPECIMENOrdering Facility: [facility] Address: [address] [place] [address] Performed By: #### A LLBG ####[facility] [id number] [place] [address] [place] Methemoglobin (Bld) [Mass fraction] 0.6 % Normal 0.0-1.5 [facility] Comment on above: Order Comment: Speci men Type: ARTERIAL BLOOD SPECIMENOrdering Facility: [facility] Address: [address] [place] [address] Performed By: #### A LLBG ####[facility] [id number] [place] [address] [place] O2 THERAPY VENT=Ventilator Normal [facility] Comment on above: Order Comment: Speci men Type: ARTERIAL BLOOD SPECIMENOrdering Facility: [facility] Address: [address] [place] [address] Performed By: #### A LLBG ####[facility] [id number] [place] [address] [place] Oxygen (Bld) [Partial pressure] 106 mm Hg High 85-95 [facility] Comment on above: Order Comment: Speci men Type: ARTERIAL BLOOD SPECIMENOrdering Facility: [facility] Address: [address] [place] [address] Performed By: #### A LLBG ####[facility] [id number] [place] [address] [place] Oxyhemoglobin (BldA) [Mass fraction] 96 % Normal 95-98 [facility] Comment on above: Order Comment: Speci men Type: ARTERIAL BLOOD SPECIMENOrdering Facility: [facility] Address: [address] [place] [address] Performed By: #### A LLBG ####[facility] [id number] [place] [address] [place] pH (Bld) 7.36 [pH] Normal 7.35-7.45 [facility] Comment on above: Order Comment: Speci men Type: ARTERIAL BLOOD SPECIMENOrdering Facility: [facility] Address: [address] [place] [address] Performed By: #### A LLBG ####[facility] [id number] [place] [address] [place] PO2 / FIO2 RATIO 265 mmHg Low >300 [facility] Comment on above: Order Comment: Speci men Type: ARTERIAL BLOOD SPECIMENOrdering Facility: [facility] Address: [address] [place] [address] Performed By: #### A LLBG ####[facility] [id number] [place] [address] [place] Potassium [Moles/Vol] 4.3 mmol/L Normal 3.5-5.0 [facility] Comment on above: Order Comment: Speci men Type: ARTERIAL BLOOD SPECIMENOrdering Facility: [facility] Address: [address] [place] [address] Performed By: #### A LLBG ####[facility] [id number] [place] [address] [place] Sodium [Moles/Vol] 141 mmol/L Normal 136-144 [facility] Comment on above: Order Comment: Speci men Type: ARTERIAL BLOOD SPECIMENOrdering Facility: [facility] Address: [address] [place] [address] Performed By: #### A LLBG ####[facility] [id number] [place] [address] [place] Base excess Calc (Bld) [Moles/Vol] 1 mmol/L Normal 0-2 [facility] Comment on above: Order Comment: Speci men Type: ARTERIAL BLOOD SPECIMENOrdering Facility: [facility] Address: [address] [place] [address] Performed By: #### A LLBG ####[facility] [id number] [place] [address] [place] Body temperature 98.6 [degF] Normal [facility] Comment on above: Order Comment: Speci men Type: ARTERIAL BLOOD SPECIMENOrdering Facility: [facility] Address: [address] [place] [address] Performed By: #### A LLBG ####[facility] [id number] [place] [address] [place] Calcium.ionized (Bld) [Mass/Vol] 1.26 mmol/L Normal 1.08-1.30 [facility] Comment on above: Order Comment: Speci men Type: ARTERIAL BLOOD SPECIMENOrdering Facility: [facility] Address: [address] [place] [address] Performed By: #### A LLBG ####[facility] [id number] [place] [address] [place] Calcium.ionized adjusted to pH 7.4 (BldA) [Moles/Vol] 1.23 mmol/L Normal 1.08-1.30 [facility] Comment on above: Order Comment: Speci men Type: ARTERIAL BLOOD SPECIMENOrdering Facility: [facility] Address: [address] [place] [address] Performed By: #### A LLBG ####[facility] [id number] [place] [address] [place] Carboxyhemoglobin (BldA) [Mass fraction] 1.8 % Normal 0.0-2.0 [facility] Comment on above: Order Comment: Speci men Type: ARTERIAL BLOOD SPECIMENOrdering Facility: [facility] Address: [address] [place] [address] Result Comment: Carb oxyhemoglobin Reference Range for Smokers: 2.0-8.0% Performed By: #### A LLBG ####[facility] [id number] [place] [address] [place] CO2 (Bld) [Partial pressure] 48 mm Hg High 36-46 [facility] Comment on above: Order Comment: Speci men Type: ARTERIAL BLOOD SPECIMENOrdering Facility: [facility] Address: [address] [place] [address] Performed By: #### A LLBG ####[facility] [id number] [place] [address] [place] Glucose [Mass/Vol] 102 mg/dL Normal 60-105 [facility] Comment on above: Order Comment: Speci men Type: ARTERIAL BLOOD SPECIMENOrdering Facility: [facility] Address: [address] [place] [address] Performed By: #### A LLBG ####[facility] [id number] [place] [address] [place] HCO3 (Bld) [Moles/Vol] 26 mmol/L Normal 22-26 [facility] Comment on above: Order Comment: Speci men Type: ARTERIAL BLOOD SPECIMENOrdering Facility: [facility] Address: [address] [place] [address] Performed By: #### A LLBG ####[facility]CL[facility] [id number] [place] [address] [place] Hematocrit (Bld) [Volume fraction] 34.3 % Low 36.0-46.0 [facility] Comment on above: Order Comment: Speci men Type: ARTERIAL BLOOD SPECIMENOrdering Facility: [facility] Address: [address] [place] [address] Performed By: #### A LLBG ####[facility]CL[facility] [id number] [place] [address] [place] Hemoglobin (Bld) [Mass/Vol] 11.1 g/dL Low 11.5-15.5 [facility] [facility] Comment on above: Order Comment: Speci men Type: ARTERIAL BLOOD SPECIMENOrdering Facility: [facility] Address: [address] [place] [address] Performed By: #### A LLBG ####[facility] [id number] [place] [address] [place] Lactate [Moles/Vol] 1.7 mmol/L Normal 0.5-2.2 [facility] Comment on above: Order Comment: Speci men Type: ARTERIAL BLOOD SPECIMENOrdering Facility: [facility] Address: [address] [place] [address] Performed By: #### A LLBG ####[facility] [id number] [place] [address] [place] Methemoglobin (Bld) [Mass fraction] 0.7 % Normal 0.0-1.5 [facility] Comment on above: Order Comment: Speci men Type: ARTERIAL BLOOD SPECIMENOrdering Facility: [facility] Address: [address] [place] [address] Performed By: #### A LLBG ####[facility] [id number] [place] [address] [place] O2 THERAPY VENT=Ventilator Normal [facility] Comment on above: Order Comment: Speci men Type: ARTERIAL BLOOD SPECIMENOrdering Facility: [facility] Address: [address] [place] [address] Performed By: #### A LLBG ####[facility] [id number] [place] [address] [place] Oxygen (Bld) [Partial pressure] 95 mm Hg Normal 85-95 [facility] Comment on above: Order Comment: Speci men Type: ARTERIAL BLOOD SPECIMENOrdering Facility: [facility] Address: [address] [place] [address] Performed By: #### A LLBG ####[facility] [id number] [place] [address] [place] Oxyhemoglobin (BldA) [Mass fraction] 95 % Normal 95-98 [facility] Comment on above: Order Comment: Speci men Type: ARTERIAL BLOOD SPECIMENOrdering Facility: [facility] Address: [address] [place] [address] Performed By: #### A LLBG ####[facility] [id number] [place] [address] [place] pH (Bld) 7.36 [pH] Normal 7.35-7.45 [facility] Comment on above: Order Comment: Speci men Type: ARTERIAL BLOOD SPECIMENOrdering Facility: [facility] Address: [address] [place] [address] Performed By: #### A LLBG ####[facility] [id number] [place] [address] [place] Potassium [Moles/Vol] 4.4 mmol/L Normal 3.5-5.0 [facility] Comment on above: Order Comment: Speci men Type: ARTERIAL BLOOD SPECIMENOrdering Facility: [facility] Address: [address] [place] [address] Performed By: #### A LLBG ####[facility] [id number] [place] [address] [place] Sodium [Moles/Vol] 142 mmol/L Normal 136-144 [facility] Comment on above: Order Comment: Speci men Type: ARTERIAL BLOOD SPECIMENOrdering Facility: [facility] Address: [address] [place] [address] Performed By: #### A LLBG ####[facility] [id number] [place] [address] [place] Base deficit (BldA) [Moles/Vol] -1 mmol/L Normal -2-0 [facility] Comment on above: Order Comment: Speci men Type: ARTERIAL BLOOD SPECIMENOrdering Facility: [facility] Address: [address] [place] [address] Performed By: #### A LLBG ####[facility] [id number] [place] [address] [place] Calcium.ionized (Bld) [Mass/Vol] 1.33 mmol/L High 1.08-1.30 [facility] Comment on above: Order Comment: Speci men Type: ARTERIAL BLOOD SPECIMENOrdering Facility: [facility] Address: [address] [place] [address] Performed By: #### A LLBG ####[facility] [id number] [place] [address] [place] Calcium.ionized adjusted to pH 7.4 (BldA) [Moles/Vol] 1.25 mmol/L Normal 1.08-1.30 [facility] Comment on above: Order Comment: Speci men Type: ARTERIAL BLOOD SPECIMENOrdering Facility: [facility] Address: [address] [place] [address] Performed By: #### A LLBG ####[facility] [id number] [place] [address] [place] Carboxyhemoglobin (BldA) [Mass fraction] 1.1 % Normal 0.0-2.0 [facility] Comment on above: Order Comment: Speci men Type: ARTERIAL BLOOD SPECIMENOrdering Facility: [facility] Address: [address] [place] [address] Result Comment: Carb oxyhemoglobin Reference Range for Smokers: 2.0-8.0% Performed By: #### A LLBG ####[facility] [id number] [place] [address] [place] CO2 (Bld) [Partial pressure] 53 mm Hg High 36-46 [facility] Comment on above: Order Comment: Speci men Type: ARTERIAL BLOOD SPECIMENOrdering Facility: [facility] Address: [address] [place] [address] Performed By: #### A LLBG ####[facility] [id number] [place] [address] [place] CO2 adjusted to patient's actual temperature (Bld) [Partial pressure] 53 mmHg High 36-46 [facility] Comment on above: Order Comment: Speci men Type: ARTERIAL BLOOD SPECIMENOrdering Facility: [facility] Address: [address] [place] [address] Performed By: #### A LLBG ####[facility] [id number] [place] [address] [place] Glucose [Mass/Vol] 187 mg/dL High 60-105 [facility] Comment on above: Order Comment: Speci men Type: ARTERIAL BLOOD SPECIMENOrdering Facility: [facility] Address: [address] [place] [address] Performed By: #### A LLBG ####[facility] [id number] [place] [address] [place] HCO3 (Bld) [Moles/Vol] 25 mmol/L Normal 22-26 [facility] Comment on above: Order Comment: Speci men Type: ARTERIAL BLOOD SPECIMENOrdering Facility: [facility] Address: [address] [place], [place] [id number] Performed By: #### A LLBG ####[facility] [id number] [place] [address] [place] Hematocrit (Bld) [Volume fraction] 28.7 % Low 36.0-46.0 [facility] Comment on above: Order Comment: Speci men Type: ARTERIAL BLOOD SPECIMENOrdering Facility: [facility] Address: [address] [place] [address] Performed By: #### A LLBG ####[facility] [id number] [place] [address] [place] Hemoglobin (Bld) [Mass/Vol] 9.3 g/dL Low 11.5-15.5 [facility] Comment on above: Order Comment: Speci men Type: ARTERIAL BLOOD SPECIMENOrdering Facility: [facility] Address: [address] [place] [address] Performed By: #### A LLBG ####[facility] [id number] [place] [address] [place] Lactate [Moles/Vol] 3.2 mmol/L High 0.5-2.2 [facility] Comment on above: Order Comment: Speci men Type: ARTERIAL BLOOD SPECIMENOrdering Facility: [facility] Address: [address] [place] [address] Performed By: #### A LLBG ####[facility] [id number] [place] [address] [place] Methemoglobin (Bld) [Mass fraction] 1.8 % High 0.0-1.5 [facility] Comment on above: Order Comment: Speci men Type: ARTERIAL BLOOD SPECIMENOrdering Facility: [facility] Address: [address] [place] [address] Performed By: #### A LLBG ####[facility] [id number] [place] [address] [place] Oxygen (Bld) [Partial pressure] 300 mm Hg High 85-95 [facility] Comment on above: Order Comment: Speci men Type: ARTERIAL BLOOD SPECIMENOrdering Facility: [facility] Address: [address] [place] [address] Performed By: #### A LLBG ####[facility] [id number] [place] [address] [place] Oxygen adjusted to patient's actual temperature (Bld) [Partial pressure] 300 mmHg High 85-95 [facility] Comment on above: Order Comment: Speci men Type: ARTERIAL BLOOD SPECIMENOrdering Facility: [facility] Address: [address] [place] [address] Performed By: #### A LLBG ####[facility] [id number] [place] [address] [place] Oxyhemoglobin (BldA) [Mass fraction] 97 % Normal 95-98 [facility] Comment on above: Order Comment: Speci men Type: ARTERIAL BLOOD SPECIMENOrdering Facility: [facility] Address: [address] [place] [address] Performed By: #### A LLBG ####[facility] [id number] [place] [address] [place] pH (Bld) 7.30 [pH] Low 7.35-7.45 [facility] Comment on above: Order Comment: Speci men Type: ARTERIAL BLOOD SPECIMENOrdering Facility: [facility] Address: [address] [place] [address] Performed By: #### A LLBG ####[facility] [id number] [place] [address] [place] pH adjusted to patient's actual temperature (Bld) 7.30 Low 7.35-7.45 [facility] Comment on above: Order Comment: Speci men Type: ARTERIAL BLOOD SPECIMENOrdering Facility: [facility] Address: [address] [place] [address] Performed By: #### A LLBG ####[facility] [id number] [place] [address] [place] Potassium [Moles/Vol] 4.1 mmol/L Normal 3.5-5.0 [facility] Comment on above: Order Comment: Speci men Type: ARTERIAL BLOOD SPECIMENOrdering Facility: [facility] Address: [address] [place] [address] Performed By: #### A LLBG ####[facility] [id number] [place] [address] [place] Sodium [Moles/Vol] 138 mmol/L Normal 136-144 [facility] Comment on above: Order Comment: Speci men Type: ARTERIAL BLOOD SPECIMENOrdering Facility: [facility] Address: [address] [place] [address] Performed By: #### A LLBG ####[facility] [id number] [place] [address] [place] Base deficit (BldA) [Moles/Vol] -1 mmol/L Normal -2-0 [facility] Comment on above: Order Comment: Speci men Type: ARTERIAL BLOOD SPECIMENOrdering Facility: [facility] Address: [address] [place] [address] Performed By: #### A LLBG ####[facility] [id number] [place] [address] [place] Calcium.ionized (Bld) [Mass/Vol] 1.06 mmol/L Low 1.08-1.30 [facility] Comment on above: Order Comment: Speci men Type: ARTERIAL BLOOD SPECIMENOrdering Facility: [facility] Address: [address] [place] [address] Performed By: #### A LLBG ####[facility] [id number] [place] [address] [place] Calcium.ionized adjusted to pH 7.4 (BldA) [Moles/Vol] 1.06 mmol/L Low 1.08-1.30 [facility] Comment on above: Order Comment: Speci men Type: ARTERIAL BLOOD SPECIMENOrdering Facility: [facility] Address: [address] [place] [address] Performed By: #### A LLBG ####[facility] [id number] [place] [address] [place] Carboxyhemoglobin (BldA) [Mass fraction] 1.3 % Normal 0.0-2.0 [facility] Comment on above: Order Comment: Speci men Type: ARTERIAL BLOOD SPECIMENOrdering Facility: [facility] Address: [address] [place] [address] Result Comment: Carb oxyhemoglobin Reference Range for Smokers: 2.0-8.0% Performed By: #### A LLBG ####[facility] [id number] [address] [place] CO2 (Bld) [Partial pressure] 37 mm Hg Normal 36-46 [facility] Comment on above: Order Comment: Speci men Type: ARTERIAL BLOOD SPECIMENOrdering Facility: [facility] Address: [address] [place] [address] Performed By: #### A LLBG ####[facility] [id number] [place] [address] [place] CO2 adjusted to patient's actual temperature (Bld) [Partial pressure] 37 mmHg Normal 36-46 [facility] Comment on above: Order Comment: Speci men Type: ARTERIAL BLOOD SPECIMENOrdering Facility: [facility] Address: [address] [place] [address] Performed By: #### A LLBG ####[facility] [id number] [place] [address] [place] Glucose [Mass/Vol] 293 mg/dL High 60-105 [facility] Comment on above: Order Comment: Speci men Type: ARTERIAL BLOOD SPECIMENOrdering Facility: [facility] Address: [address] [place] [address] Performed By: #### A LLBG ####[facility] [id number] [place] [address] [place] HCO3 (Bld) [Moles/Vol] 23 mmol/L Normal 22-26 [facility] Comment on above: Order Comment: Speci men Type: ARTERIAL BLOOD SPECIMENOrdering Facility: [facility] Address: [address] [place] [address] Performed By: #### A LLBG ####[facility] [id number] [place] [address] [place] Hematocrit (Bld) [Volume fraction] 24.8 % Low 36.0-46.0 [facility] Comment on above: Order Comment: Speci men Type: ARTERIAL BLOOD SPECIMENOrdering Facility: [facility] Address: [address] [place] [address] Performed By: #### A LLBG ####[facility] [id number] [place] [address] [place] Hemoglobin (Bld) [Mass/Vol] 8.0 g/dL Low 11.5-15.5 [facility] Comment on above: Order Comment: Speci men Type: ARTERIAL BLOOD SPECIMENOrdering Facility: [facility] Address: [address] [place] [address] Performed By: #### A LLBG ####[facility] [id number] [place] [address] [place] Lactate [Moles/Vol] 2.9 mmol/L High 0.5-2.2 [facility] Comment on above: Order Comment: Speci men Type: ARTERIAL BLOOD SPECIMENOrdering Facility: [facility] Address: [address] [place] [address] Performed By: #### A LLBG ####[facility] [id number] [place] [address] [place] Methemoglobin (Bld) [Mass fraction] 0.7 % Normal 0.0-1.5 [facility] Comment on above: Order Comment: Speci men Type: ARTERIAL BLOOD SPECIMENOrdering Facility: [facility] Address: [address] [place] [address] Performed By: #### A LLBG ####[facility] [id number] [place] [address] [place] Oxygen (Bld) [Partial pressure] 228 mm Hg High 85-95 [facility] Comment on above: Order Comment: Speci men Type: ARTERIAL BLOOD SPECIMENOrdering Facility: [facility] Address: [address] [place] [address] Performed By: #### A LLBG ####[facility] [id number] [place] [address] [place] Oxygen adjusted to patient's actual temperature (Bld) [Partial pressure] 228 mmHg High 85-95 [facility] Comment on above: Order Comment: Speci men Type: ARTERIAL BLOOD SPECIMENOrdering Facility: [facility] Address: [address] [place] [address] Performed By: #### A LLBG ####[facility] [id number] [place] [address] [place] Oxyhemoglobin (BldA) [Mass fraction] 98 % Normal 95-98 [facility] Comment on above: Order Comment: Speci men Type: ARTERIAL BLOOD SPECIMENOrdering Facility: [facility] Address: [address] [place] [address] Performed By: #### A LLBG ####[facility] [id number] [place] [id number] [place] pH (Bld) 7.40 [pH] Normal 7.35-7.45 [facility] Comment on above: Order Comment: Speci men Type: ARTERIAL BLOOD SPECIMENOrdering Facility: [facility] Address: [address] [place] [address] Performed By: #### A LLBG ####[facility] [id number] [place] [address] [place] pH adjusted to patient's actual temperature (Bld) 7.40 Normal 7.35-7.45 [facility] Comment on above: Order Comment: Speci men Type: ARTERIAL BLOOD SPECIMENOrdering Facility: [facility] Address: [address] [place] [address] Performed By: #### A LLBG ####[facility] [id number] [place] [address] [place] Potassium [Moles/Vol] 5.8 mmol/L High 3.5-5.0 [facility] Comment on above: Order Comment: Speci men Type: ARTERIAL BLOOD SPECIMENOrdering Facility: [facility] Address: [address] [place] [address] Performed By: #### A LLBG ####[facility] [id number] [place] [address] [place] Sodium [Moles/Vol] 135 mmol/L Low 136-144 [facility] Comment on above: Order Comment: Speci men Type: ARTERIAL BLOOD SPECIMENOrdering Facility: [facility] Address: [address] [place] [address] Performed By: #### A LLBG ####[facility] [id number] [place] [address] [place] Base deficit (BldA) [Moles/Vol] -1 mmol/L Normal -2-0 [facility] Comment on above: Order Comment: Speci men Type: ARTERIAL BLOOD SPECIMENOrdering Facility: [facility] Address: [address] [place] [address] Performed By: #### A LLBG ####[facility] [id number] [place] [address] [place] Calcium.ionized (Bld) [Mass/Vol] 1.09 mmol/L Normal 1.08-1.30 [facility] Comment on above: Order Comment: Speci men Type: ARTERIAL BLOOD SPECIMENOrdering Facility: [facility] Address: [address] [place] [address] Performed By: #### A LLBG ####[facility] [id number] [place] [address] [place] Calcium.ionized adjusted to pH 7.4 (BldA) [Moles/Vol] 1.10 mmol/L Normal 1.08-1.30 [facility] Comment on above: Order Comment: Speci men Type: ARTERIAL BLOOD SPECIMENOrdering Facility: [facility] Address: [address] [place] [address] Performed By: #### A LLBG ####[facility] [id number] [place] [address] [place] Carboxyhemoglobin (BldA) [Mass fraction] 1.3 % Normal 0.0-2.0 [facility] Comment on above: Order Comment: Speci men Type: ARTERIAL BLOOD SPECIMENOrdering Facility: [facility] Address: [address] [place] [address] Result Comment: Carb oxyhemoglobin Reference Range for Smokers: 2.0-8.0% Performed By: #### A LLBG ####[facility] [id number] [place] [address] [place] CO2 (Bld) [Partial pressure] 36 mm Hg Normal 36-46 [facility] Comment on above: Order Comment: Speci men Type: ARTERIAL BLOOD SPECIMENOrdering Facility: [facility] Address: [address] [place] [address] Performed By: #### A LLBG ####[facility] [id number] [place] [address] [place] CO2 adjusted to patient's actual temperature (Bld) [Partial pressure] 36 mmHg Normal 36-46 [facility] Comment on above: Order Comment: Speci men Type: ARTERIAL BLOOD SPECIMENOrdering Facility: [facility] Address: [address] [place] [address] Performed By: #### A LLBG ####[facility] [id number] [place] [address] [place] Glucose [Mass/Vol] 209 mg/dL High 60-105 [facility] Comment on above: Order Comment: Speci men Type: ARTERIAL BLOOD SPECIMENOrdering Facility: [facility] Address: [address] [place] [address] Performed By: #### A LLBG ####[facility] [id number] [place] [address] [place] HCO3 (Bld) [Moles/Vol] 23 mmol/L Normal 22-26 [facility] Comment on above: Order Comment: Speci men Type: ARTERIAL BLOOD SPECIMENOrdering Facility: [facility] Address: [address] [place] [address] Performed By: #### A LLBG ####[facility] [id number] [place] [address] [place] Hematocrit (Bld) [Volume fraction] 27.6 % Low 36.0-46.0 [facility] Comment on above: Order Comment: Speci men Type: ARTERIAL BLOOD SPECIMENOrdering Facility: [facility] Address: [address] [place] [address] Performed By: #### A LLBG ####[facility] [id number] [place] [address] [place] Hemoglobin (Bld) [Mass/Vol] 8.9 g/dL Low 11.5-15.5 [facility] Comment on above: Order Comment: Speci men Type: ARTERIAL BLOOD SPECIMENOrdering Facility: [facility] Address: [address] [place] [address] Performed By: #### A LLBG ####[facility] [id number] [place] [address] [place] Lactate [Moles/Vol] 2.4 mmol/L High 0.5-2.2 [facility] Comment on above: Order Comment: Speci men Type: ARTERIAL BLOOD SPECIMENOrdering Facility: [facility] Address: [address] [place] [id number] Performed By: #### A LLBG ####[facility] [id number] [address] [address] [place] Methemoglobin (Bld) [Mass fraction] 0.8 % Normal 0.0-1.5 [facility] Comment on above: Order Comment: Speci men Type: ARTERIAL BLOOD SPECIMENOrdering Facility: [facility] Address: [address] [place] [id number] Performed By: #### A LLBG ####[facility] [id number] [address] [address] [place] Oxygen (Bld) [Partial pressure] 299 mm Hg High 85-95 [facility] Comment on above: Order Comment: Speci men Type: ARTERIAL BLOOD SPECIMENOrdering Facility: [facility] Address: [address] [place] [id number] Performed By: #### A LLBG ####[facility] [id number] [address] [address] [place] Oxygen adjusted to patient's actual temperature (Bld) [Partial pressure] 299 mmHg High 85-95 [facility] Comment on above: Order Comment: Speci men Type: ARTERIAL BLOOD SPECIMENOrdering Facility: [facility] Address: [address] [place] [address] Performed By: #### A LLBG ####[facility] [id number] [address] [address] [place] Oxyhemoglobin (BldA) [Mass fraction] 98 % Normal 95-98 [facility] Comment on above: Order Comment: Speci men Type: ARTERIAL BLOOD SPECIMENOrdering Facility: [facility] Address: [address] [place] [address] Performed By: #### A LLBG ####[facility] [id number] [place] [address] [place] pH (Bld) 7.42 [pH] Normal 7.35-7.45 [facility] Comment on above: Order Comment: Speci men Type: ARTERIAL BLOOD SPECIMENOrdering Facility: [facility] Address: [address] [place] [address] Performed By: #### A LLBG ####[facility] [id number] [place] [address] [place] pH adjusted to patient's actual temperature (Bld) 7.42 Normal 7.35-7.45 [facility] Comment on above: Order Comment: Speci men Type: ARTERIAL BLOOD SPECIMENOrdering Facility: [facility] Address: [address] [place] [address] Performed By: #### A LLBG ####[facility] [id number] [place] [address] [place] Potassium [Moles/Vol] 4.8 mmol/L Normal 3.5-5.0 [facility] Comment on above: Order Comment: Speci men Type: ARTERIAL BLOOD SPECIMENOrdering Facility: [facility] Address: [address] [place] [address] Performed By: #### A LLBG ####[facility] [id number] [place] [address] [place] Sodium [Moles/Vol] 136 mmol/L Normal 136-144 [facility] Comment on above: Order Comment: Speci men Type: ARTERIAL BLOOD SPECIMENOrdering Facility: [facility] Address: [address] [place] [address] Performed By: #### A LLBG ####[facility] [id number] [place] [address] [place] Base deficit (BldA) [Moles/Vol] -1 mmol/L Normal -2-0 [facility] Comment on above: Order Comment: Speci men Type: ARTERIAL BLOOD SPECIMENOrdering Facility: [facility] Address: [address] [place] [address] Performed By: #### A LLBG ####[facility] [id number] [place] [address] [place] Calcium.ionized (Bld) [Mass/Vol] 1.27 mmol/L Normal 1.08-1.30 [facility] Comment on above: Order Comment: Speci men Type: ARTERIAL BLOOD SPECIMENOrdering Facility: [facility] Address: [address] [place] [address] Performed By: #### A LLBG ####[facility] [id number] [place] [address] [place] Calcium.ionized adjusted to pH 7.4 (BldA) [Moles/Vol] 1.23 mmol/L Normal 1.08-1.30 [facility] Comment on above: Order Comment: Speci men Type: ARTERIAL BLOOD SPECIMENOrdering Facility: [facility] Address: [address] [place] [address] Performed By: #### A LLBG ####[facility] [id number] [place] [address] [place] Carboxyhemoglobin (BldA) [Mass fraction] 0.8 % Normal 0.0-2.0 [facility] Comment on above: Order Comment: Speci men Type: ARTERIAL BLOOD SPECIMENOrdering Facility: [facility] Address: [address] [place] [address] Result Comment: Carb oxyhemoglobin Reference Range for Smokers: 2.0-8.0% Performed By: #### A LLBG ####[facility] LABCLIA [id number] [place] [address] [place] CO2 (Bld) [Partial pressure] 46 mm Hg Normal 36-46 [facility] Comment on above: Order Comment: Speci men Type: ARTERIAL BLOOD SPECIMENOrdering Facility: [facility] Address: [address] [place] [address] Performed By: #### A LLBG ####[facility] LABCLIA [id number] [place] [address] [place] CO2 adjusted to patient's actual temperature (Bld) [Partial pressure] 46 mmHg Normal 36-46 [facility] Comment on above: Order Comment: Speci men Type: ARTERIAL BLOOD SPECIMENOrdering Facility: [facility] Address: [address] [place] [address] Performed By: #### A LLBG ####[facility] LABCLIA [id number] [place] [address] [place] Glucose [Mass/Vol] 127 mg/dL High 60-105 [facility] Comment on above: Order Comment: Speci men Type: ARTERIAL BLOOD SPECIMENOrdering Facility: [facility] Address: [address] [place] [address] Performed By: #### A LLBG ####[facility] LABCLIA [id number] [place] [address] [place] HCO3 (Bld) [Moles/Vol] 25 mmol/L Normal 22-26 [facility] Comment on above: Order Comment: Speci men Type: ARTERIAL BLOOD SPECIMENOrdering Facility: [facility] Address: [address] [place] [address] Performed By: #### A LLBG ####[facility] LABCLIA [id number] [place] [address] [place] Hematocrit (Bld) [Volume fraction] 36.5 % Normal 36.0-46.0 [facility] Comment on above: Order Comment: Speci men Type: ARTERIAL BLOOD SPECIMENOrdering Facility: [facility] Address: [address] [place], [place] [address] Performed By: #### A LLBG ####[facility] LABCLIA [id number] [place] [address] [place] Hemoglobin (Bld) [Mass/Vol] 11.9 g/dL Normal 11.5-15.5 [facility] Comment on above: Order Comment: Speci men Type: ARTERIAL BLOOD SPECIMENOrdering Facility: [facility] Address: [address] [place] [address] Performed By: #### A LLBG ####[facility] LABIA [id number] [place] [address] [place] Lactate [Moles/Vol] 2.1 mmol/L Normal 0.5-2.2 [facility] Comment on above: Order Comment: Speci men Type: ARTERIAL BLOOD SPECIMENOrdering Facility: [facility] Address: [address] [place] [address] Performed By: #### A LLBG ####[facility] LABIA [id number] [place] [address] [place] Methemoglobin (Bld) [Mass fraction] 0.5 % Normal 0.0-1.5 [facility] Comment on above: Order Comment: Speci men Type: ARTERIAL BLOOD SPECIMENOrdering Facility: [facility] Address: [address] [place] [address] Performed By: #### A LLBG ####[facility] LABIA [id number] [place] [address] [place] Oxygen (Bld) [Partial pressure] 349 mm Hg High 85-95 [facility] Comment on above: Order Comment: Speci men Type: ARTERIAL BLOOD SPECIMENOrdering Facility: [facility] Address: [address] [place] [address] Performed By: #### A LLBG ####[facility] LABCLIA [id number] [place] [address] [place] Oxygen adjusted to patient's actual temperature (Bld) [Partial pressure] 349 mmHg High 85-95 [facility] Comment on above: Order Comment: Speci men Type: ARTERIAL BLOOD SPECIMENOrdering Facility: [facility] Address: [address] [place] [address] Performed By: #### A LLBG ####[facility] LABCLIA [id number] [place] [address] [place] Oxyhemoglobin (BldA) [Mass fraction] 99 % High 95-98 [facility] Comment on above: Order Comment: Speci men Type: ARTERIAL BLOOD SPECIMENOrdering Facility: [facility] Address: [address] [place] [address] Performed By: #### A LLBG ####[facility] LABCLIA [id number] [place] [address] [place] pH (Bld) 7.35 [pH] Normal 7.35-7.45 [facility] Comment on above: Order Comment: Speci men Type: ARTERIAL BLOOD SPECIMENOrdering Facility: [facility] Address: [address] [place] [address] Performed By: #### A LLBG ####[facility] LABCLIA [id number] [place] [address] [place] pH adjusted to patient's actual temperature (Bld) 7.35 Normal 7.35-7.45 [facility] Comment on above: Order Comment: Speci men Type: ARTERIAL BLOOD SPECIMENOrdering Facility: [facility] Address: [address] [place] [address] Performed By: #### A LLBG ####[facility] LABCLIA [id number] [place] [address] [place] Potassium [Moles/Vol] 3.8 mmol/L Normal 3.5-5.0 [facility] Comment on above: Order Comment: Speci men Type: ARTERIAL BLOOD SPECIMENOrdering Facility: [facility] Address: [address] [place] [address] Performed By: #### A LLBG ####[facility] LABCLIA [id number] [place] [address] [place] Sodium [Moles/Vol] 141 mmol/L Normal 136-144 [facility] Comment on above: Order Comment: Speci men Type: ARTERIAL BLOOD SPECIMENOrdering Facility: [facility] Address: [address] [place] [address] Performed By: #### A LLBG ####[facility] LABCLIA [id number] [place] [address] [place] CBC panel Auto (Bld)on 09-09 Erythrocyte distribution width (RBC) [Ratio] 15.5 % High 11.5-15.0 [facility] Comment on above: Order Comment: Speci men Type: BLOOD SPECIMENOrdering Facility: [facility] Address: [address] [place] [address] Performed By: #### 5 8410-2 ####[facility] LABIA [id number] [place] [address] [place] Hematocrit (Bld) [Volume fraction] 36.2 % Normal 36.0-46.0 [facility] Comment on above: Order Comment: Speci men Type: BLOOD SPECIMENOrdering Facility: [facility] Address: [address] [place] [address] Performed By: #### 5 8410-2 ####[facility] LABIA [id number] [place] [address] [place] Hemoglobin (Bld) [Mass/Vol] 11.8 g/dL Normal 11.5-15.5 [facility] Comment on above: Order Comment: Speci men Type: BLOOD SPECIMENOrdering Facility: [facility] Address: [address] [place] [address] Performed By: #### 5 8410-2 ####[facility] LABIA [id number] [place] [address] [place] MCH (RBC) [Entitic mass] 28.2 pg Normal 26.0-34.0 [facility] Comment on above: Order Comment: Speci men Type: BLOOD SPECIMENOrdering Facility: [facility] Address: [address] [place] [address] Performed By: #### 5 8410-2 ####[facility] LABCLIA [id number] [place] [address] [place] MCHC (RBC) [Mass/Vol] 32.6 g/dL Normal 30.5-36.0 [facility] Comment on above: Order Comment: Speci men Type: BLOOD SPECIMENOrdering Facility: [facility] Address: [address] [place] [address] Performed By: #### 5 8410-2 ####[facility] LABCLIA [id number] [place] [address] [place] MCV (RBC) [Entitic vol] 86.6 fL Normal 80.0-100.0 [facility] Comment on above: Order Comment: Speci men Type: BLOOD SPECIMENOrdering Facility: [facility] Address: [address] [place] [address] Performed By: #### 5 8410-2 ####[facility] LABIA [id number] [place] [address] [place] Nucleated RBC (Bld) [#/Vol] 10*3/uL Normal <0.01 [facility] Comment on above: Order Comment: Speci men Type: BLOOD SPECIMENOrdering Facility: [facility] Address: [address] [place] [address] Performed By: #### 5 8410-2 ####[facility] LABCLIA [id number] [place] [address] [place] Platelet mean volume (Bld) [Entitic vol] 9.9 fL Normal 9.0-12.7 [facility] Comment on above: Order Comment: Speci men Type: BLOOD SPECIMENOrdering Facility: [facility] Address: [address] [place] [address] Performed By: #### 5 8410-2 ####[facility] LABIA [id number] [place] [address] [place] Platelets (Bld) [#/Vol] 196 10*3/uL Normal 150-400 [facility] Comment on above: Order Comment: Speci men Type: BLOOD SPECIMENOrdering Facility: [facility] Address: [address] [place] [address] Performed By: #### 5 8410-2 ####[facility] [id number] [place] [address] [place] RBC (Bld) [#/Vol] 4.18 10*6/uL Normal 3.90-5.20 [facility] Comment on above: Order Comment: Speci men Type: BLOOD SPECIMENOrdering Facility: [facility] Address: [address] [place] [address] Performed By: #### 5 8410-2 ####[facility] [id number] [place] [address] [place] WBC (Bld) [#/Vol] 20.82 10*3/uL High 3.70-11.00 [facility] Comment on above: Order Comment: Speci men Type: BLOOD SPECIMENOrdering Facility: [facility] Address: [address] [place] [address] Performed By: #### 5 8410-2 ####[facility] [id number] [place] [address] [place] ECG COMPLETEon 09-09-2024 ECG COMPLETE Normal [facility] Fibrinogen PPP-mCncon 2024 Fibrinogen Coag (PPP) [Mass/Vol] 330 mg/dL Normal 200-400 [facility] Comment on above: Order Comment: Speci men Type: BLOOD SPECIMENOrdering Facility: [facility] Address: [address] [place] [address] Performed By: #### 3 255-7, 85190-8, 30520-8 ####[facility] [id number] [place] [address] [place] Gas and Carbon monoxide pane l (BldV)on 09-09-2024 BASE DEFICIT, VENOUS >-1 Normal -2-0 [facility] Comment on above: Order Comment: Speci men Type: VENOUS BLOOD SPECIMENOrdering Facility: [facility] Address: [address] [place] [address] Performed By: #### 2 4344-4 ####[facility] [id number] [place] [address] [place] Calcium.ionized (Bld) [Mass/Vol] 1.13 mmol/L Normal 1.08-1.30 [facility] Comment on above: Order Comment: Speci men Type: VENOUS BLOOD SPECIMENOrdering Facility: [facility] Address: [address] [place] [address] Performed By: #### 2 4344-4 ####[facility] [id number] [place] [address] [place] Calcium.ionized adjusted to pH 7.4 (BldA) [Moles/Vol] 1.11 mmol/L Normal 1.08-1.30 [facility] Comment on above: Order Comment: Speci men Type: VENOUS BLOOD SPECIMENOrdering Facility: [facility] Address: [address] [place] [address] Performed By: #### 2 4344-4 ####[facility] [id number] [place] [address] [place] Carboxyhemoglobin (BldV) [Mass fraction] 1.4 % Normal 0.0-2.0 [facility] Comment on above: Order Comment: Speci men Type: VENOUS BLOOD SPECIMENOrdering Facility: [facility] Address: [address] [place] [address] Result Comment: Carb oxyhemoglobin Reference Range for Smokers: 2.0-8.0% Performed By: #### 2 4344-4 ####[facility] LABCLIA [id number] [place] [address] [place] CO2 (BldV) [Partial pressure] 46 mm[Hg] Normal 42-55 [facility] Comment on above: Order Comment: Speci men Type: VENOUS BLOOD SPECIMENOrdering Facility: [facility] Address: [address] [place] [address] Performed By: #### 2 4344-4 ####[facility] LABCLIA [id number] [place] [address] [place] CO2 adjusted to patient's actual temperature (BldV) [Partial pressure] 46 mmHg Normal 42-55 [facility] Comment on above: Order Comment: Speci men Type: VENOUS BLOOD SPECIMENOrdering Facility: [facility] Address: [address] [place] [address] Performed By: #### 2 4344-4 ####[facility] LABCLIA [id number] [place] [address] [place] Glucose [Mass/Vol] 190 mg/dL High 60-105 [facility] Comment on above: Order Comment: Speci men Type: VENOUS BLOOD SPECIMENOrdering Facility: [facility] Address: [address] [place] [address] Performed By: #### 2 4344-4 ####[facility] LABCLIA [id number] [place] [address] [place] HCO3 (Bld) [Moles/Vol] 25 mmol/L Normal 24-28 [facility] Comment on above: Order Comment: Speci men Type: VENOUS BLOOD SPECIMENOrdering Facility: [facility] Address: [address] [place] [address] Performed By: #### 2 4344-4 ####[facility] LABCLIA [id number] [place] [address] [place] Hematocrit (Bld) [Volume fraction] 27.3 % Low 36.0-46.0 [facility] Comment on above: Order Comment: Speci men Type: VENOUS BLOOD SPECIMENOrdering Facility: [facility] Address: [address] [place] [address] Performed By: #### 2 4344-4 ####[facility] LABCLIA [id number] [place] [address] [place] Hemoglobin (Bld) [Mass/Vol] 8.8 g/dL Low 11.5-15.5 [facility] Comment on above: Order Comment: Speci men Type: VENOUS BLOOD SPECIMENOrdering Facility: [facility] Address: [address] [place] [address] Performed By: #### 2 4344-4 ####[facility] LABCLIA [id number] [place] [address] [place] Lactate [Moles/Vol] 2.2 mmol/L Normal 0.5-2.2 [facility] Comment on above: Order Comment: Speci men Type: VENOUS BLOOD SPECIMENOrdering Facility: [facility] Address: [address] [place] [address] Performed By: #### 2 4344-4 ####[facility] LABCLIA [id number] [place] [address] [place] Methemoglobin (Bld) [Mass fraction] 0.9 % Normal 0.0-1.5 [facility] Comment on above: Order Comment: Speci men Type: VENOUS BLOOD SPECIMENOrdering Facility: [facility] Address: [address] [place] [address] Performed By: #### 2 4344-4 ####[facility] LABCLIA [id number] [place] [address] [place] Oxygen (BldV) [Partial pressure] 52 mm[Hg] High 35-45 [facility] Comment on above: Order Comment: Speci men Type: VENOUS BLOOD SPECIMENOrdering Facility: [facility] Address: [address] [place] [address] Performed By: #### 2 4344-4 ####[facility] LABCLIA [id number] [address] [address] [place] Oxygen adjusted to patient's actual temperature (BldV) [Partial pressure] 52 mmHg High 35-45 [facility] Comment on above: Order Comment: Speci men Type: VENOUS BLOOD SPECIMENOrdering Facility: [facility] Address: [address] [place], [place] [address] Performed By: #### 2 4344-4 ####[facility] LABCLIA [id number] [address] [address] [place] Oxygen saturation in Venous blood 82 % Normal 60-85 [facility] Comment on above: Order Comment: Speci men Type: VENOUS BLOOD SPECIMENOrdering Facility: [facility] Address: [address] [place], [place] [address] Performed By: #### 2 4344-4 ####[facility] LABCLIA [id number] [place] [address] [place] Oxyhemoglobin (BldV) [Mass fraction] 80 % Normal 60-85 [facility] Comment on above: Order Comment: Speci men Type: VENOUS BLOOD SPECIMENOrdering Facility: [facility] Address: [address] [place], [place] [address] Performed By: #### 2 4344-4 ####[facility] LABCLIA [id number] [address] [address] [place] pH (BldV) 7.36 [pH] Normal 7.32-7.42 [facility] Comment on above: Order Comment: Speci men Type: VENOUS BLOOD SPECIMENOrdering Facility: [facility] Address: [address] [place] [address] Performed By: #### 2 4344-4 ####[facility] LABIA [id number] [place] [address] [place] pH adjusted to patient's actual temperature (BldV) 7.36 Normal 7.32-7.42 [facility] Comment on above: Order Comment: Speci men Type: VENOUS BLOOD SPECIMENOrdering Facility: [facility] Address: [address] [place] [address] Performed By: #### 2 4344-4 ####[facility] LABIA [id number] [place] [address] [place] Potassium [Moles/Vol] 4.7 mmol/L Normal 3.5-5.0 [facility] Comment on above: Order Comment: Speci men Type: VENOUS BLOOD SPECIMENOrdering Facility: [facility] Address: [address] [place] [address] Performed By: #### 2 4344-4 ####[facility] LABIA [id number] [place] [address] [place] Sodium [Moles/Vol] 138 mmol/L Normal 136-144 [facility] Comment on above: Order Comment: Speci men Type: VENOUS BLOOD SPECIMENOrdering Facility: [facility] Address: [address] [place] [address] Performed By: #### 2 4344-4 ####[facility] [id number] [place] [address] [place] INTRAOPERATIVE ECHO PREon INTRAOPERATIVE ECHO PRE Normal [facility] OPERATIVE NOon 09-09-2024 OPERATIVE NO Normal [facility] PT panel Coag (PPP)on 2024 INR Coag (PPP) [Relative time] 1.1 {INR} Normal 0.9-1.3 [facility] Comment on above: Order Comment: Speci men Type: BLOOD SPECIMENOrdering Facility: [facility] Address: [address] [place] [address] Result Comment: Ailyn min K Antagonist (VKA) Therapeutic Range: INR 2 to 3 (Target INR of 2.5)Note: For patients treated with VKA drugs, such as warfarin, the [employer] 2012 Guideline recommends [...] 2017, 70: 252-289 Performed By: #### 3 255-7, 87312-5, 00024-5 ####[facility] LABCLIA [id number] [place] [address] [place] PT Coag (PPP) [Time] 11.8 s Normal 9.7-13.0 [facility] Comment on above: Order Comment: Speci men Type: BLOOD SPECIMENOrdering Facility: [facility] Address: [address] [place] [address] Performed By: #### 3 255-7, 28143-1, 21228-3 ####[facility] LABIA [id number] [place] [address] [place] Pathology biopsy report Yossi (Tiss)on 09-09-2024 CASE REPORT Normal [facility] Comment on above: Order Comment: Speci men Type: TISSUE SPECIMENOrdering Facility: [facility] Address: [address] [place] [address] Result Comment: Surg ical Pathology Report Case: [id number] Provider: Janell Gonzáles MD Collected: 09/09/2024 08:50 AMOrdering Location: Admitting Received: 09/09/2024 12:04 PMPathologist: Trey Adrian MD, PhDSpecimen: Soft Tissue, Mass, Resection, Left Atrial Mass Performed By: #### 6 6121-5 ####[facility] LABCLIA [id number] [place] [address] [place] CLINICAL HISTORY Normal [facility] Comment on above: Order Comment: Speci men Type: TISSUE SPECIMENOrdering Facility: [facility] Address: [address] [place] [address] Result Comment: Pre- op diagnosis:Pre-operative cardiovascular examination [Z01.810]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 Normal [facility] Comment on above: Order Comment: Speci men Type: TISSUE SPECIMENOrdering Facility: [facility] Address: [address] [place] [address] Performed By: #### 6 6121-5 ####[id number] [address] FINAL DIAGNOSIS Normal [facility] Comment on above: Order Comment: Speci men Type: TISSUE SPECIMENOrdering Facility: [facility] Address: [address] [place] [address] Result Comment: A. L eft atrial mass, excision:- Myxoma. at 1333 EST Performed By: #### 6 6121-5 ####[facility] LABIA [id number] [address] [place] FINAL PERFORMING LAB Normal [facility] Comment on above: Order Comment: Neoi men Type: TISSUE SPECIMENOrdering Facility: [facility] Address: [address] [place] [address] Result Comment: Diag nostic interpretation performed at: [facility], [address] [place] [address] [place] [address] CLIA# [id number] Director: Juan Jacobo MD Performed By: #### 6 6121-5 ####[facility] [id number] [place] [address] [place] GROSS DESCRIPTION Normal [facility] Comment on above: Order Comment: Speci men Type: TISSUE SPECIMENOrdering Facility: [facility] Address: [address] [place] [address] Result Comment: A. S oft Tissue, Mass, ResectionReceived in formalin designated left atrial mass is a smooth, oval, lobulated and gelatinous mass that measures 1.5 x 1.2 x 1.1 cm. Sectioning through the mass reveals hemorrhagic cut surfaces. The specimen is entirely submitted in 2 cassettes.WE September 10, 2024 9:47 AMGross examination performed at [facility], [address] [place] [address] Performed By: #### 6 6121-5 ####[facility] [id number] [place] [address] [place] THROMBOGRAPH PANELon 02-24-2 025 Clot angle TEG (Bld) [Angle] 73.2 degrees Normal 47.0-74.0 [facility] Comment on above: Order Comment: Speci men Type: BLOOD SPECIMENOrdering Facility: [facility] Address: [address] [place] [address] Performed By: #### T EGPNP ####[facility] [id number] [place] [address] [place] Clot Lysis 30 Min post maximum clot amplitude TEG (Bld) [Length fraction] 0.0 % Normal 0.0-8.0 [facility] Comment on above: Order Comment: Speci men Type: BLOOD SPECIMENOrdering Facility: [facility] Address: [address] [place] [address] Performed By: #### T EGPNP ####[facility] LABCLIA [id number] [place] [address] [place] Clotting time TEG (Bld) 3.3 minutes Low 4.0-10.0 [facility] Comment on above: Order Comment: Speci men Type: BLOOD SPECIMENOrdering Facility: [facility] Address: [address] [place] [address] Performed By: #### T EGPNP ####[facility] LABCLIA [id number] [place] [address] [place] Coagulation index TEG Qn (Bld) 2.7 Normal -4.6-3.2 [facility] Comment on above: Order Comment: Speci men Type: BLOOD SPECIMENOrdering Facility: [facility] Address: [address] [place] [address] Result Comment: This test was developed, and its performance characteristics determined by the [facility] Department of Pathology and Laboratory Medicine. It has not been cleared or approved by the FDA. The [facility] Department of Pathology and Laboratory Medicine is regulated under CLIA as qualified to perform high-complexity testing. This test is used for clinical purposes. It should not be regarded as investigational or for research. Performed By: #### T EGPNP ####[facility] LABCLIA [id number] [place] [address] [place] Maximum clot firmness TEG (Bld) [Length] 62.2 mm Normal 51.0-75.0 [facility] Comment on above: Order Comment: Speci men Type: BLOOD SPECIMENOrdering Facility: [facility] Address: [address] [id number] Performed By: #### T EGPNP ####[facility] LABCLIA [id number] [facility] [place] [address] [place] Thromboelastography after addtion of heparinase panel (Bld) Normal [facility] Comment on above: Order Comment: Speci men Type: BLOOD SPECIMENOrdering Facility: [facility] Address: [address] [place] [address] Result Comment: A th romboelastograph (TEG) study [...] timely manner. Performed By: #### T EGPNP ####[facility] LABCLIA [id number] [place] [address] [place] XR CHEST 1V FRONTAL PORTon 0 09-09-2024 XR CHEST 1V FRONTAL PORT Normal [facility] aPTT PPPon 09-09-2024 aPTT Coag (PPP) [Time] 27.3 s Normal 23.0-32.4 [facility] Comment on above: Order Comment: Milo peters Type: BLOOD SPECIMENOrdering Facility: [facility] Address: [address] [place] [address] Performed By: #### 3 255-7, 19773-7, 56362-1 ####[facility] LABCLIA [id number] [place] [address] [place] Telemedicineon 08-29-2024 Telemedicine Normal [facility] CNCNPATEDon 08-27-2024 CNCNPATED Normal [facility] CNOVon 08-27-2024 CNOV Normal [facility] STAPHYLOCOCCUS AUREUS AND MR SA SCREEN, PCR, NASALon 08-27-2024 S. aureus and MRSA panel KARLA+probe (Nose) Not detected Normal Not Detected [facility] Comment on above: Order Comment: Speci men Type: SWABOrdering Facility: [facility] Address: [address] [place] [address] Performed By: #### S APCR ####[facility] [id number] [place] [address] [place] Basic metabolic 2000 panelon 08-26-2024 Anion gap [Moles/Vol] 8 mmol/L Normal 8-15 [facility] Comment on above: Order Comment: Speci men Type: BLOOD SPECIMENOrdering Facility: [facility] Address: [address] [place] [address] Performed By: #### 2 4321-2 ####[facility] [id number] [place] [address] [place] Calcium [Mass/Vol] 9.1 mg/dL Normal 8.5-10.2 [facility] Comment on above: Order Comment: Speci men Type: BLOOD SPECIMENOrdering Facility: [facility] Address: [address] [place] [address] Performed By: #### 2 4321-2 ####[facility] [id number] [place] [address] [place] Chloride [Moles/Vol] 105 mmol/L Normal 98-107 [facility] Comment on above: Order Comment: Speci men Type: BLOOD SPECIMENOrdering Facility: [facility] Address: [address] [place] [address] Performed By: #### 2 4321-2 ####[facility] [id number] [place] [address] [place] CO2 [Moles/Vol] 27 mmol/L Normal 22-30 [facility] Comment on above: Order Comment: Speci men Type: BLOOD SPECIMENOrdering Facility: [facility] Address: [address] [place] [address] Performed By: #### 2 4321-2 ####[facility] [id number] [place] [address] [place] Creatinine [Mass/Vol] 0.61 mg/dL Normal 0.58-0.96 [facility] Comment on above: Order Comment: Speci men Type: BLOOD SPECIMENOrdering Facility: [facility] Address: [address] [place] [address] Performed By: #### 2 4321-2 ####[facility] [id number] [address] [place] Creatinine and Glomerular filtration rate.predicted panel (S/P/Bld) 99 mL/min/1.73m??? Normal >=60 [facility] Comment on above: Order Comment: Speci men Type: BLOOD SPECIMENOrdering Facility: [facility] Address: [address] [place] [address] Result Comment: Lexie mated Glomerular Filtration Rate [...] actual GFR. Performed By: #### 2 4321-2 ####[facility] [id number] [place] [address] [place] Glucose [Mass/Vol] 93 mg/dL Normal 74-99 [facility] Comment on above: Order Comment: Speci men Type: BLOOD SPECIMENOrdering Facility: [facility] Address: [address] [place] [address] Result Comment: The [place] [employer] (ADA) provides guidance for cutoff [...] Standards of Medical Care in Diabetes 2016, [place] [employer]. Diabetes Care. 2016.39(Suppl 1). Performed By: #### 2 4321-2 ####[facility] [id number] [place] [address] [place] Potassium [Moles/Vol] 3.8 mmol/L Normal 3.7-5.1 [facility] Comment on above: Order Comment: Speci men Type: BLOOD SPECIMENOrdering Facility: [facility] Address: [address] [place] [address] Performed By: #### 2 4321-2 ####[facility] [id number] [place] [address] [place] Sodium [Moles/Vol] 140 mmol/L Normal 136-144 [facility] Comment on above: Order Comment: Speci men Type: BLOOD SPECIMENOrdering Facility: [facility] Address: [address] [place] [address] Performed By: #### 2 4321-2 ####[facility] [id number] [place] [address] [place] Urea nitrogen [Mass/Vol] 20 mg/dL Normal 7-21 [facility] Comment on above: Order Comment: Speci men Type: BLOOD SPECIMENOrdering Facility: [facility] Address: [address] [place] [address] Performed By: #### 2 4321-2 ####[facility] [id number] [place] [id number] [place] CARD CATH DIAGNOSTICon 08-26 CARD CATH DIAGNOSTIC Normal [facility] CBC W Auto Differential pane l (Bld)on 08-26-2024 Basophils (Bld) [#/Vol] 10*3/uL Normal <0.11 [facility] Comment on above: Order Comment: Speci men Type: BLOOD SPECIMENOrdering Facility: [facility] Address: [address] [place] [address] Performed By: #### 5 7021-8 ####[facility] [id number] [place] [address] [place] Basophils/100 WBC (Bld) 0.4 % Normal [facility] Comment on above: Order Comment: Speci men Type: BLOOD SPECIMENOrdering Facility: [facility] Address: [address] [place] [address] Performed By: #### 5 7021-8 ####[facility] [id number] [place] [address] [place] Differential cell count method Nom (Bld) Auto Normal [facility] Comment on above: Order Comment: Speci men Type: BLOOD SPECIMENOrdering Facility: [facility] Address: [address] [place] [address] Performed By: #### 5 7021-8 ####[facility] [id number] [place] [address] [place] Eosinophils (Bld) [#/Vol] 0.04 10*3/uL Normal <0.46 [facility] Comment on above: Order Comment: Speci men Type: BLOOD SPECIMENOrdering Facility: [facility] Address: [address] [place] [address] Performed By: #### 5 7021-8 ####[facility] [id number] [place] [address] [place] Eosinophils/100 WBC (Bld) 0.9 % Normal [facility] Comment on above: Order Comment: Speci men Type: BLOOD SPECIMENOrdering Facility: [facility] Address: [address] [place] [address] Performed By: #### 5 7021-8 ####[facility] [id number] [place] [address] [place] Erythrocyte distribution width (RBC) [Ratio] 15.1 % High 11.5-15.0 [facility] Comment on above: Order Comment: Speci men Type: BLOOD SPECIMENOrdering Facility: [facility] Address: [address] [place] [address] Performed By: #### 5 7021-8 ####[facility] [id number] [place] [address] [place] Hematocrit (Bld) [Volume fraction] 40.1 % Normal 36.0-46.0 [facility] Comment on above: Order Comment: Speci men Type: BLOOD SPECIMENOrdering Facility: [facility] Address: [address] [place] [address] Performed By: #### 5 7021-8 ####[facility] [id number] [place] [address] [place] Hemoglobin (Bld) [Mass/Vol] 12.4 g/dL Normal 11.5-15.5 [facility] Comment on above: Order Comment: Speci men Type: BLOOD SPECIMENOrdering Facility: [facility] Address: [address] [place] [address] Performed By: #### 5 7021-8 ####[facility] [id number] [place] [address] [place] Immature granulocytes (Bld) [#/Vol] 10*3/uL Normal <0.10 [facility] Comment on above: Order Comment: Speci men Type: BLOOD SPECIMENOrdering Facility: [facility] Address: [address] [place] [address] Performed By: #### 5 7021-8 ####[facility] [id number] [place] [address] [place] Immature granulocytes/100 WBC (Bld) 0.2 % Normal [facility] Comment on above: Order Comment: Speci men Type: BLOOD SPECIMENOrdering Facility: [facility] Address: [address] [place] [address] Performed By: #### 5 7021-8 ####[facility] [id number] [place] [address] [place] Lymphocytes (Bld) [#/Vol] 0.88 10*3/uL Low 1.00-4.00 [facility] Comment on above: Order Comment: Speci men Type: BLOOD SPECIMENOrdering Facility: [facility] Address: [address] [place] [address] Performed By: #### 5 7021-8 ####[facility] [id number] [place] [address] [place] Lymphocytes/100 WBC (Bld) 18.8 % Normal [facility] Comment on above: Order Comment: Speci men Type: BLOOD SPECIMENOrdering Facility: [facility] Address: [address] [place] [address] Performed By: #### 5 7021-8 ####[facility] [id number] [place] [address] [place] MCH (RBC) [Entitic mass] 27.6 pg Normal 26.0-34.0 [facility] Comment on above: Order Comment: Speci men Type: BLOOD SPECIMENOrdering Facility: [facility] Address: [address] [place] [address] Performed By: #### 5 7021-8 ####[facility] [id number] [place] [address] [place] MCHC (RBC) [Mass/Vol] 30.9 g/dL Normal 30.5-36.0 [facility] Comment on above: Order Comment: Speci men Type: BLOOD SPECIMENOrdering Facility: [facility] Address: [address] [place] [address] Performed By: #### 5 7021-8 ####[facility] [id number] [place] [address] [place] MCV (RBC) [Entitic vol] 89.1 fL Normal 80.0-100.0 [facility] Comment on above: Order Comment: Speci men Type: BLOOD SPECIMENOrdering Facility: [facility] Address: [address] [place] [address] Performed By: #### 5 7021-8 ####[facility] [id number] [place] [address] [place] Monocytes (Bld) [#/Vol] 0.53 10*3/uL Normal <0.87 [facility] Comment on above: Order Comment: Speci men Type: BLOOD SPECIMENOrdering Facility: [facility] Address: [address] [place] [address] Performed By: #### 5 7021-8 ####[facility] [id number] [place] [address] [place] Monocytes/100 WBC (Bld) 11.3 % Normal [facility] Comment on above: Order Comment: Speci men Type: BLOOD SPECIMENOrdering Facility: [facility] Address: [address] [place] [address] Performed By: #### 5 7021-8 ####[facility] [id number] [place] [address] [place] Neutrophils (Bld) [#/Vol] 3.21 10*3/uL Normal 1.45-7.50 [facility] Comment on above: Order Comment: Speci men Type: BLOOD SPECIMENOrdering Facility: [facility] Address: [address] [place] [address] Performed By: #### 5 7021-8 ####[facility] [id number] [place] [address] [place] Neutrophils/100 WBC (Bld) 68.4 % Normal [facility] Comment on above: Order Comment: Speci men Type: BLOOD SPECIMENOrdering Facility: [facility] Address: [address] [place] [address] Performed By: #### 5 7021-8 ####[facility] [id number] [place] [address] [place] Nucleated RBC (Bld) [#/Vol] 10*3/uL Normal <0.01 [facility] Comment on above: Order Comment: Speci men Type: BLOOD SPECIMENOrdering Facility: [facility] Address: [address] [place] [address] Performed By: #### 5 7021-8 ####[facility] [id number] [place] [address] [place] Nucleated RBC/100 WBC (Bld) [Ratio] 0.0 /100 WBC Normal [facility] Comment on above: Order Comment: Speci men Type: BLOOD SPECIMENOrdering Facility: [facility] Address: [address] [place] [address] Performed By: #### 5 7021-8 ####[facility] [id number] [place] [address] [place] Platelet mean volume (Bld) [Entitic vol] 9.7 fL Normal 9.0-12.7 [facility] Comment on above: Order Comment: Speci men Type: BLOOD SPECIMENOrdering Facility: [facility] Address: [address] [place] [address] Performed By: #### 5 7021-8 ####[facility] [id number] [place] [address] [place] Platelets (Bld) [#/Vol] 253 10*3/uL Normal 150-400 [facility] Comment on above: Order Comment: Speci men Type: BLOOD SPECIMENOrdering Facility: [facility] Address: [address] [place] [address] Performed By: #### 5 7021-8 ####[facility] [id number] [place] [address] [place] RBC (Bld) [#/Vol] 4.50 10*6/uL Normal 3.90-5.20 [facility] Comment on above: Order Comment: Speci men Type: BLOOD SPECIMENOrdering Facility: [facility] Address: [address] [place] [address] Performed By: #### 5 7021-8 ####[facility] [id number] [place] [address] [place] WBC (Bld) [#/Vol] 4.69 10*3/uL Normal 3.70-11.00 [facility] Comment on above: Order Comment: Speci men Type: BLOOD SPECIMENOrdering Facility: [facility] Address: [address] [place] [address] Performed By: #### 5 7021-8 ####[facility] [id number] [place] [address] [place] CONFIRM BLOOD TYPEon 025 ABO A Normal [facility] Comment on above: Order Comment: Speci men Type: BLOOD SPECIMENOrdering Facility: [facility] Address: [address] [place] [address] Performed By: #### C ONABO ####[facility] BLOOD BANKCLIA [id number] [place] [address] [place] Rh Nom (Bld) Negative Normal [facility] Comment on above: Order Comment: Speci men Type: BLOOD SPECIMENOrdering Facility: [facility] Address: [address] [place] [address] Performed By: #### C ONABO ####[facility] BANKIA [id number] [address] [address] [place] Comprehensive metabolic 2000 panelon 08-26-2024 Albumin [Mass/Vol] 4.3 g/dL Normal 3.9-4.9 [facility] Comment on above: Order Comment: Speci men Type: BLOOD SPECIMENOrdering Facility: [facility] Address: [address] [place] [address] Performed By: #### 2 4323-8, 2532-0 ####[facility] [id number] [place] [id number] [place] ALP [Catalytic activity/Vol] 65 U/L Normal 34-123 [facility] Comment on above: Order Comment: Speci men Type: BLOOD SPECIMENOrdering Facility: [facility] Address: [address] [place] [address] Performed By: #### 2 4328, 2531-0 ####[facility] [id number] [place] [address] [place] ALT [Catalytic activity/Vol] 10 U/L Normal 7-38 [facility] Comment on above: Order Comment: Speci men Type: BLOOD SPECIMENOrdering Facility: [facility] Address: [address] [place] [address] Performed By: #### 2 4323-8, 2-0 ####[facility] [id number] [place] [id number] [place] Anion gap [Moles/Vol] 10 mmol/L Normal 8-15 [facility] Comment on above: Order Comment: Speci men Type: BLOOD SPECIMENOrdering Facility: [facility] Address: [address] [place] [address] Performed By: #### 2 4323-8, 2532-0 ####[facility] [id number] [place] [id number] [place] AST [Catalytic activity/Vol] 18 U/L Normal 13-35 [facility] Comment on above: Order Comment: Speci men Type: BLOOD SPECIMENOrdering Facility: [facility] Address: [address] [place] [address] Performed By: #### 2 4323-8, 2531-0 ####[facility] [id number] [place] [address] [place] Bilirubin [Mass/Vol] 0.3 mg/dL Normal 0.2-1.3 [facility] Comment on above: Order Comment: Speci men Type: BLOOD SPECIMENOrdering Facility: [facility] Address: [address] [place] [address] Performed By: #### 2 432-8, 0 ####[facility] [id number] [place] [address] [place] Calcium [Mass/Vol] 9.9 mg/dL Normal 8.5-10.2 [facility] Comment on above: Order Comment: Speci men Type: BLOOD SPECIMENOrdering Facility: [facility] Address: [address] [place] [address] Performed By: #### 2 432-8, 0 ####[facility] [id number] [place] [address] [place] Chloride [Moles/Vol] 106 mmol/L Normal 98-107 [facility] Comment on above: Order Comment: Speci men Type: BLOOD SPECIMENOrdering Facility: [facility] Address: [address] [place] [address] Performed By: #### 2 4323-8, 0 ####[facility] [id number] [place] [id number] [place] CO2 [Moles/Vol] 25 mmol/L Normal 22-30 [facility] Comment on above: Order Comment: Speci men Type: BLOOD SPECIMENOrdering Facility: [facility] Address: [address] [place] [address] Performed By: #### 2 4323-8, 0 ####[facility] [id number] [place] [id number] [place] Creatinine [Mass/Vol] 0.65 mg/dL Normal 0.58-0.96 [facility] Comment on above: Order Comment: Speci men Type: BLOOD SPECIMENOrdering Facility: [facility] Address: [address] [place] [address] Performed By: #### 2 4323-8, 0 ####[facility] [id number] [place] [address] [place] Creatinine and Glomerular filtration rate.predicted panel (S/P/Bld) 98 mL/min/1.73m??? Normal >=60 [facility] Comment on above: Order Comment: Speci men Type: BLOOD SPECIMENOrdering Facility: [facility] Address: [address] [place] [address] Result Comment: Lexie mated Glomerular Filtration Rate [...] reflect actual GFR. Performed By: #### 2 4323-8, 0 ####[facility] [id number] [place] [id number] [place] Glucose [Mass/Vol] 96 mg/dL Normal 74-99 [facility] Comment on above: Order Comment: Speci men Type: BLOOD SPECIMENOrdering Facility: [facility] Address: [address] [place] [address] Result Comment: The [place] [employer] (ADA) provides guidance for cutoff [...] Standards of Medical Care in Diabetes 2016, [place] [employer]. Diabetes Care. 2016.39(Suppl 1). Performed By: #### 2 43209-21, ####[facility] [id number] [place] [address] [place] Potassium [Moles/Vol] 4.7 mmol/L Normal 3.7-5.1 [facility] Comment on above: Order Comment: Speci men Type: BLOOD SPECIMENOrdering Facility: [facility] Address: [address] [place] [address] Performed By: #### 2 4323-02, ####[facility] [id number] [place] [address] [place] Protein [Mass/Vol] 7.4 g/dL Normal 6.3-8.0 [facility] Comment on above: Order Comment: Speci men Type: BLOOD SPECIMENOrdering Facility: [facility] Address: [address] [place] [address] Performed By: #### 2 4323-02, ####[facility] [id number] [place] [id number] [place] Sodium [Moles/Vol] 141 mmol/L Normal 136-144 [facility] Comment on above: Order Comment: Speci men Type: BLOOD SPECIMENOrdering Facility: [facility] Address: [address] [place] [address] Performed By: #### 2 43209-21, ####[facility] [id number] [place] [address] [place] Urea nitrogen [Mass/Vol] 21 mg/dL Normal 7-21 [facility] Comment on above: Order Comment: Milo peters Type: BLOOD SPECIMENOrdering Facility: [facility] Address: [address] [place] [address] Performed By: #### 2 4323-8, 2532-0 ####[facility] [id number] [place] [address] [place] ECG COMPLETEon 08-26-2024 ECG COMPLETE Normal [facility] LDH SerPl-cCncon 08-26-2024 LDH [Catalytic activity/Vol] 156 U/L Normal 135-214 [facility] Comment on above: Order Comment: Milo peters Type: BLOOD SPECIMENOrdering Facility: [facility] Address: [address] [place] [address] Performed By: #### 2 4323-8, 2-0 ####[facility] [id number] [place] [address] [place] PT panel Coag (PPP)on 2024 INR Coag (PPP) [Relative time] 1.0 {INR} Normal 0.9-1.3 [facility] Comment on above: Order Comment: Milo peters Type: BLOOD SPECIMENOrdering Facility: [facility] Address: [address] [place] [address] Result Comment: Ailyn min K Antagonist (VKA) Therapeutic Range: INR 2 to 3 (Target INR of 2.5)Note: For patients treated with VKA drugs, such as warfarin, the [place] [employer] 2012 Guideline recommends [...] 70: 252-289 Performed By: #### 3 4528-0, 66671-3 ####[facility] [id number] [place] [address] [place] PT Coag (PPP) [Time] 11.1 s Normal 9.7-13.0 [facility] Comment on above: Order Comment: Speci men Type: BLOOD SPECIMENOrdering Facility: [facility] Address: [address] [place] [address] Performed By: #### 3 4528-0, 53629-6 ####[facility] [id number] [address] [place] [facility] TYPE AND SCREEN,30 DAYon ABO A Normal [facility] Comment on above: Order Comment: Speci men Type: BLOOD SPECIMENOrdering Facility: [facility] Address: [address] [place] [address] Performed By: #### T SCR30 ####[facility] BLOOD BANKIA [id number] [address] [place] Rh Nom (Bld) Negative Normal [facility] Comment on above: Order Comment: Speci men Type: BLOOD SPECIMENOrdering Facility: [facility] Address: [address] [place] [address] Performed By: #### T SCR30 ####[facility] BLOOD BANKIA [id number] [address] [place] URINALYSIS, DIPSTICK ONLYon 08-26-2024 Bilirubin Ql (U) Negative Normal Negative [facility] Comment on above: Order Comment: Speci men Type: URINE SPECIMENOrdering Facility: [facility] Address: [address] [place] [address] Performed By: #### U A ####[facility] [id number] [place] [address] [place] Clarity (Unsp spec) Clear Normal Clear [facility] Comment on above: Order Comment: Speci men Type: URINE SPECIMENOrdering Facility: [facility] Address: [address] [place] [address] Performed By: #### U A ####[facility] [id number] [place] [address] [place] Color (U) Yellow Normal Yellow [facility] Comment on above: Order Comment: Speci men Type: URINE SPECIMENOrdering Facility: [facility] Address: [address] [place] [address] Performed By: #### U A ####[facility] [id number] [place] [address] [place] Glucose Test strip (U) [Mass/Vol] Negative Normal Negative [facility] Comment on above: Order Comment: Speci men Type: URINE SPECIMENOrdering Facility: [facility] Address: [address] [place] [address] Performed By: #### U A ####[facility] [id number] [place] [address] [place] Hemoglobin Ql (U) Negative Normal Negative [facility] Comment on above: Order Comment: Speci men Type: URINE SPECIMENOrdering Facility: [facility] Address: [address] [place] [address] Performed By: #### U A ####[facility] [id number] [place] [address] [place] Ketones Ql (U) Negative Normal Negative [facility] Comment on above: Order Comment: Speci men Type: URINE SPECIMENOrdering Facility: [facility] Address: [address] [place] [address] Performed By: #### U A ####[facility] [id number] [place] [address] [place] Leukocyte esterase Test strip Ql (U) Negative Normal Negative [facility] Comment on above: Order Comment: Speci men Type: URINE SPECIMENOrdering Facility: [facility] Address: [address] [place] [address] Performed By: #### U A ####[facility] [id number] [place] [address] [place] Nitrite Ql (U) Negative Normal Negative [facility] Comment on above: Order Comment: Speci men Type: URINE SPECIMENOrdering Facility: [facility] Address: [address] [place] [address] Performed By: #### U A ####[facility] [id number] [place] [address] [place] pH (U) 7.5 [pH] Normal <8.5 [facility] Comment on above: Order Comment: Speci men Type: URINE SPECIMENOrdering Facility: [facility] Address: [address] [place] [address] Performed By: #### U A ####[facility] [id number] [place] [address] [place] Protein (U) [Mass/Vol] Negative Normal Negative [facility] Comment on above: Order Comment: Speci men Type: URINE SPECIMENOrdering Facility: [facility] Address: [address] [place] [address] Performed By: #### U A ####[facility] [id number] [place] [address] [place] Specific gravity (U) [Rel density] 1.017 Normal 1.005-1.03 0 [facility] Comment on above: Order Comment: Speci men Type: URINE SPECIMENOrdering Facility: [facility] Address: [address] [id number] Performed By: #### U A ####[facility] [id number] [address] [facility] Urobilinogen Ql (U) 0.2 EU/dL Normal 0.2-1.0 EU/dL [facility] Comment on above: Order Comment: Speci men Type: URINE SPECIMENOrdering Facility: [facility] Address: [address] [id number] Performed By: #### U A ####[facility] [id number] [place] [address] [place] XR CHEST 2V FRONTAL/LATon XR CHEST 2V FRONTAL/LAT Normal [facility] XR Chest PA and Lateralon IMPRESSION: See result Aws Software Development Engineer: CALLI Transcribe Date/Time: Aug 26 2024 2:44P Dictated by : SIVA NARANJO MD This examination was interpreted and the report reviewed and electronically signed by: SIVA NARANJO MD on Aug 26 2024 2:48PM [facility] DIVISION OF RADIOLOGY * * *Final [...] tissues: Mild scoliosis. DIVISION OF RADIOLOGY Provider, [facility] - 08/26/2024 * * *Final Report* [...] tissues: Mild scoliosis. IMPRESSION IMPRESSION: See result Aws Software Development Engineer: CALLI Transcribe Date/Time: Aug 26 2024 2:44P Dictated by : SIVA NARANJO MD This examination was interpreted and the report reviewed and electronically signed by: SIVA NARANJO MD on Aug 26 2024 2:48PM EST [facility] Radiology Study observation (narrative) [facility] XR Chest PA and LateralOrder ed By: Ccf Provider on 08-26-2024 [facility] aPTT PPPon 08-26-2024 aPTT Coag (PPP) [Time] 28.8 s Normal 23.0-32.4 [facility] Comment on above: Order Comment: Speci men Type: BLOOD SPECIMENOrdering Facility: [facility] Address: [address] [place] [address] Performed By: #### 3 4528-0, 91416-3 ####[facility] [id number] [facility] [id number] [place] [address] [place] CNPNon 08-25-2024 CNPN Normal [facility] CBC w/ Auto Diffon 5 Basophils/100 WBC (Bld) 0.6 % Normal 0.0-2.0 [facility] Comment on above: Performed By: #### 2 [id number] #### Shawn [facility] [address] [place] [address] Basophils/Leukocytes Auto (Bld) [Pure # fraction] 0.0 E9/L Normal 0.0-0.2 [facility] Comment on above: Performed By: #### 2 [id number] #### [facility] [address] [place] [address] Eosinophils (Bld) [#/Vol] 0.1 E9/L Normal 0.0-0.5 [facility] Comment on above: Performed By: #### 2 955396 #### [facility] [address] [place] [address] Eosinophils/100 WBC (Bld) 1.2 % Normal 0.0-8.0 [facility] Comment on above: Performed By: #### 2 [id number] #### [facility] [address] [place] [address] Erythrocyte distribution width (RBC) [Ratio] 16.2 % High 10.9-14.2 [facility] Comment on above: Performed By: #### 2 630541 #### [facility] [address] [place] [address] Hematocrit (Bld) [Volume fraction] 38.6 % Normal 34.0-46.0 [facility] Comment on above: Performed By: #### 2 841046 #### [facility] [address] [place] [address] Hemoglobin (Bld) [Mass/Vol] 12.7 g/dL Normal 12.0-16.0 [facility] Comment on above: Performed By: #### 2 234012 #### [facility] [address] [place] [address] Lymphocytes (Bld) [#/Vol] 1.0 E9/L Normal 1.0-4.0 [facility] Comment on above: Performed By: #### 2 881545 #### [facility] [address] [place] [address] Lymphocytes/100 WBC (Bld) 17.0 % Normal 14.0-50.0 [facility] Comment on above: Performed By: #### 2 [id number] #### [facility] [address] [place] [address] MCH (RBC) [Entitic mass] 28.6 pg Normal 27.0-34.0 [facility] Comment on above: Performed By: #### 2 811471 #### [facility] [address] [place] [address] MCHC (RBC) [Mass/Vol] 33.0 g/dL Normal 31.4-36.0 [facility] Comment on above: Performed By: #### 2 636643 #### [facility] [address] [place] [address] MCV (RBC) [Entitic vol] 86.5 fL Normal 80.0-100.0 [facility] Comment on above: Performed By: #### 2 468696 #### [facility] [address] [place] [address] Monocytes (Bld) [#/Vol] 0.8 E9/L Normal 0.2-1.0 [facility] Comment on above: Performed By: #### 2 544263 #### [facility] [address] [place] [address] Neutrophils (Bld) [#/Vol] 4.2 E9/L Normal 2.0-7.5 [facility] Comment on above: Performed By: #### 2 620356 #### [facility] [address] [place] [address] Neutrophils/100 WBC (Bld) 67.9 % Normal 36.0-75.0 [facility] Comment on above: Performed By: #### 2 121097 #### [facility] [address] [place] [address] Platelet mean volume (Bld) [Entitic vol] 7.8 fL Normal 6.4-10.8 [facility] Comment on above: Performed By: #### 2 228605 #### [facility] [address] [place] [address] Platelets (Bld) [#/Vol] 278.0 E9/L Normal 150.0-500. 0 [facility] Comment on above: Performed By: #### 2 622483 #### [facility] [address] [place] [address] RBC (Bld) [#/Vol] 4.5 E12/L Normal 4.3-5.9 [facility] Comment on above: Performed By: #### 2 844151 #### [facility] [address] [place] [address] WBC corrected for nucl RBC Auto (Bld) [#/Vol] 6.2 E9/L Normal 4.0-11.0 [facility] Comment on above: Performed By: #### 2 412448 #### [facility] [address] [place] [address] CHEMISTRYOrdered By: SYSTEM SYSTEM on 08-15-2024 Albumin [...] 08-15-2024 Albumin [Mass/Vol] 4.3 g/dL Normal 3.3-5.0 [facility] Comment on above: Performed By: #### 2 908165 #### [facility] [address] [place] [address] Albumin/Globulin (S) [Mass conc ratio] 1.1 Normal 1.1-2.2 [facility] Comment on above: Performed By: #### 2 570557 #### [facility] [address] [place] [address] ALP [Catalytic activity/Vol] 50 Int._Unit/L Normal 21-98 [facility] Comment on above: Performed By: #### 2 074228 #### [facility] [address] [place] [address] ALT No additional P-5'-P [Catalytic activity/Vol] 12 Int._Unit/L Normal 6-46 [facility] Comment on above: Performed By: #### 2 860627 #### [facility] [address] [place] [address] Anion gap [Moles/Vol] 11 mmol/L Normal 6-16 [facility] Comment on above: Performed By: #### 2 961493 #### [facility] [address] [place] [address] AST [Catalytic activity/Vol] 17 Int._Unit/L Normal 5-43 [facility] Comment on above: Performed By: #### 2 768870 #### [facility] [address] [place] [address] Bilirubin [Mass/Vol] 0.4 mg/dL Normal 0.0-1.[address] [facility] Comment on above: Performed By: #### 2 463247 #### [facility] [address] [place] [address] Calcium [Mass/Vol] 10.0 mg/dL Normal 8.9-11.1 [facility] Comment on above: Performed By: #### 2 087111 #### [facility] [address] [place] [address] Chloride [Moles/Vol] 104 mmol/L Normal 101-[address] [facility] Comment on above: Performed By: #### 2 589677 #### [facility] [address] [place] [address] CO2 [Moles/Vol] 29 mmol/L Normal 21-31 [facility] Comment on above: Performed By: #### 2 332386 #### [facility] [address] [place] [address] Creatinine [Mass/Vol] 0.6 mg/dL Normal 0.5-1.3 [facility] Comment on above: Performed By: #### 2 003622 #### [facility] [address] [place] [address] Globulin (S) [Mass/Vol] 3.9 g/dL Normal 1.4-4.0 [facility] Comment on above: Performed By: #### 2 581064 #### [facility] [address] [place] [address] Glucose [Mass/Vol] 82 mg/dL Normal 55-199 [facility] Comment on above: Performed By: #### 2 771801 #### [facility] [address] [place] [address] Potassium [Moles/Vol] 4.6 mmol/L Normal 3.5-5.3 [facility] Comment on above: Performed By: #### 2 975335 #### [facility] [address] [place] [address] Protein [Mass/Vol] 8.2 g/dL High 6.0-7.8 [facility] Comment on above: Performed By: #### 2 588335 #### [facility] [address] [place] [address] Sodium [Moles/Vol] 139 mmol/L Normal 135-145 [facility] Comment on above: Performed By: #### 2 545221 #### [facility] [address] [place] [address] Urea nitrogen [Mass/Vol] 21 mg/dL Normal 5-21 [facility] Comment on above: Performed By: #### 2 232257 #### [facility] [address] [place] [address] Urea nitrogen/Creatinine [Mass ratio] 35 No Units High 10-20 [facility] Comment on above: Performed By: #### 2 408528 #### [facility] [address] [place] [address] CNPNon 08-15-2024 CNPN Normal [facility] HEMATOLOGYOrdered By: SYSTEM SYSTEM on 08-15-2024 [...] 08-15-2024 eGFR 99 mL/min/1.73 m2 Normal >=59 [facility] Comment on above: Performed By: #### 1 [id number] #### [facility] [address] [place] [address] CNOVon 08-13-2024 CNOV Normal [facility] ANESon 08-06-2024 ANES Normal [facility] ANES Normal [facility] HPon 08-06-2024 HP Normal [facility] NON-INSIGHT LEADER CYTOLOGY - CELLULAR EXAMon 08-06-2024 LAB AP CASE REPORT Normal Mago teixeira [facility] Comment on above: Result Comment: Non- gynecologic Cytology Case: [id number] Provider: Niya Blackwell MD Collected: 08/06/2024 1421Ordering Location: [facility] Main Operating Room Received: 08/07/2024 0841Pathologist: DAVID Lakepecimens: A) - Lymph Node Station 4L, 4L fna B) - Lymph Node Station 7, station 7 fna Performed By: #### L AB13 ####[facility] LAB (BEAKER)[address] [facility] [place] [address] LAB AP CLINICAL INFORMATION Order Diagnoses [facility] Comment on above: Result Comment: R59. 0 - Mediastinal adenopathy [ICD-10-CM]J47.9 - Bronchiectasis without complication (CMS/HCC) [ICD-10-CM] Performed By: #### L AB13 ####[facility] LAB (BEAKER)[address] [facility] [place] [address] LAB AP GROSS DESCRIPTION [facility] Comment on above: Result Comment: A. 2 air-dried slides, 2 alcohol-fixed slides, 30 mL CytoLyt with hazy, red fluid with clots.B. 1 air-dried slide, 1 alcohol-fixed slide, 30 mL CytoLyt with clear, light pink fluid with clots. Performed By: #### L AB13 ####[facility] (BEAKER)[address] [facility] [place] [address] LAB AP INTRAOPERATIVE CONSULTATION [facility] Comment on above: Result Comment: A. L [...] material submitted.* Performed By: #### L AB13 ####[facility] ([facility])[address] [place] [address] LAB AP MICROSCOPIC DESCRIPTION [facility] Comment on above: Result Comment: A. S atisfactory for evaluation. Examination of the prepared smears and cell block reveals abundant lymphocytes, benign bronchial cells, inflammation and blood.B. Satisfactory for evaluation. Examination of the prepared smears and cell block reveals acute inflammation, scattered lymphocytes, benign bronchial cells, and blood. Performed By: #### L AB13 ####[facility] ([facility])[address] [place] [address] LAB AP REPORT FINAL DIAGNOSIS NARRATIVE [facility] Comment on above: Result Comment: A. L ymph node, station 4L, EBUS-guided fine needle aspiration: - Negative for metastatic malignancy. - Cellular evidence of a lymph node.B. Lymph node, station 7, EBUS-guided fine needle aspiration: - Negative for metastatic malignancy. - Cellular evidence of a lymph node. - Acute inflammation present. Performed By: #### L AB13 ####[facility] ([facility])[address] [place] [address] NURSNOTEon 08-06-2024 NURSNOTE RN reviewed discharg e instructions with patient and at bedside. No questions or concerns expressed at this time. Normal [facility] POCT GLUCOSE METER UNSOLICIT ED RESULTSon 08-06-2024 Glucose [Mass/Vol] 87 mg/dL Normal 70-105 [facility] Comment on above: Order Comment: Waive d Testing in the ED is performed under the ED CLIA certificate #[id number]. Result Comment: [facility] Performed By: #### L [id number] ####[facility] (BEAKER)[address] [place] [address] TISSUE CULTUREon 08-06-2024 Bacteria identified Cx Nom (Unsp spec) Abnormal [facility] Comment on above: Result Comment: STRE PTOCOCCUS SALIVARIUS GROUPIsolated from Broth Culture Streptococcus salivarius groupSTREPTOCOCCUS MITIS GROUPIsolated from Broth Culture Streptococcus mitis group Performed By: #### L [id number] ####[facility] ([facility])[address] [place] [address] GRAM STAIN RESULT Normal [facility] Comment on above: Result Comment: Few Polymorphonuclear leukocytesNo organisms seen Performed By: #### L [id number] ####[facility] ([facility])[address] [place] [address] Follow-Upon 08-01-2024 Follow-Up Normal [facility] HPon 08-01-2024 HP Normal [facility] CNOVon 07-19-2024 CNOV Normal [facility] CNPNon 07-12-2024 CNPN Normal [facility] CNOVon 07-11-2024 CNOV Normal [facility] CREATININE BLDon 07-11-2024 Creatinine [Mass/Vol] 0.64 mg/dL Normal 0.58-0.96 [facility] Comment on above: Order Comment: Speci men Type: BLOOD SPECIMENOrdering Facility: [facility] Address: [address] [place] [address] Performed By: #### C RET1 ####[facility]CL[facility] [id number] [place] [address] [place] Creatinine and Glomerular filtration rate.predicted panel (S/P/Bld) 98 mL/min/1.73m??? Normal >=60 [facility] Comment on above: Order Comment: Speci men Type: BLOOD SPECIMENOrdering Facility: [facility] Address: [address] [place] [address] Result Comment: Lexie mated Glomerular Filtration Rate [...] actual GFR. Performed By: #### C RET1 ####[facility] [id number] [facility] [place] [address] [place] CREATININE, BLOOD (POC)on Creatinine [Mass/Vol] 0.80 mg/dL 0.7 - 1.4 mg/dL [facility] eGFR (POCT) mL/min/1.7 3 m2 [facility] Location:Radiology [facility], [address] [place] [address], [address] [place] [address] POINT OF CARE [facility] CTA CHEST (GATED) W IVCONon 07-11-2024 CTA CHEST (GATED) W IVCON Normal [facility] CTA Chest vessels W contrast Richa [...] nodules. MEDIASTINUM: mediastinal and hilar lymphadenopathy, stable. Aws Software Development Engineer: CALLI Transcribe Date/Time: Jul 11 2024 3:32P Dictated by : ZO NORRIS MD This examination was interpreted and the report reviewed and electronically signed by: ZO NORRIS MD on Jul 11 2024 4:17PM [facility] DIVISION OF RADIOLOGY * * *Final [...] SCANNER: out-patient Siemens Definition Force Dual source [id number] scanner PROTOCOL: Prospectively triggered helical high-pitch acquisitions [...] AORTIC DIMENSIONS: AORTIC ROOT: 3.7 cm measured [id number] mid ASCENDING THORACIC AORTA: 3.0 cm mid AORTIC ARCH: 2.5 cm mid DESCENDING THORACIC AORTA: 2.6 cm limited upper ABDOMEN: small cystic lesions of the liver BONES and SOFT TISSUES: degenerative changes of the thoracic spine. Lead Android Developer (topogram) images: No additional findings. DIVISION OF RADIOLOGY Provider, [facility] - 07/11/2024 * * *Final Report* [...] SCANNER: out-patient Siemens Definition Force Dual source [id number] scanner PROTOCOL: Prospectively triggered helical high-pitch acquisitions [...] AORTIC DIMENSIONS: AORTIC ROOT: 3.7 cm measured [id number] mid ASCENDING THORACIC AORTA: 3.0 cm mid AORTIC ARCH: 2.5 cm mid DESCENDING THORACIC AORTA: 2.6 cm limited upper ABDOMEN: small cystic lesions of the liver BONES and SOFT TISSUES: degenerative changes of the thoracic spine. Lead Android Developer (topogram) images: No additional findings. IMPRESSION IMPRESSION: [...] hilar lymphadenopathy, stable. (more content not included)... [facility] CTA Chest vessels W contrast IVOrdered By: Ccf Provider on 07-11-2024 [facility] ECG COMPLETEon 07-11-2024 ECG COMPLETE Normal [facility] NM LUNG VENT / PERF VQon NM LUNG VENT / PERF VQ Normal [facility] Lung Ventilation and Perf usionon 07-11-2024 IMPRESSION: Low probability exam for pulmonary embolism. Aws Software Development Engineer: CALLI Transcribe Date/Time: Jul 11 2024 11:04A Dictated by : RALEIGH ARIAS MD This examination was interpreted and the report reviewed and electronically signed by: HANNA MALLORY MD on Jul 11 2024 11:17AM [facility] DIVISION OF RADIOLOGY * * *Final Report* * * DATE OF EXAM: Jul 11 2024 10:59AM [facility] 0032 - NM LUNG VENT / PERF [...] No mismatched defects. DIVISION OF RADIOLOGY Provider, Nicole Merritt - 07/11/2024 * * *Final Report* * [...] IMPRESSION: Low probability exam for pulmonary embolism. Aws Software Development Engineer: PSCB Transcribe Date/Time: Jul 11 2024 11:04A Dictated by : RALEIGH ARIAS MD This examination was interpreted and the report reviewed and electronically signed by: HANNA MALLORY MD on Jul 11 2024 11:17AM EST [facility] Lung Ventilation and Perf usionOrdered By: Ccf Provider on 07-11-2024 [facility] No Panel Informationon 07-11 [facility] [address] [place] [address] Test Date: 2024-07-11 Pat Name: EMELI KAUFMAN Department: Room: Gender: Female Biometric Fingerprinting Technician: : 1960 Requested By: Order Number: [id number] Reading MD: Juma Bergman MD Interpretive Statements [...] 12:41:53 EST by Juma Bergman MD ID: [id number] Name: EMELI KAUFMAN Race: White Ht: 63.62 [...] 3.92 FEF50/FIF50 0.21 90-100 FIVC (L) 1.87 FWM54-95 (L/sec) 0.59 0.98 2.02 3.46 29 Time [...] measurements obtained were repeatable.//NF PULMONARY FUNCTION LAB [facility] Radiology Study observation (narrative) [facility] SPIROMETRY BASELINE ONLYon 1 09-11-2023 DLCO (ml/min/mmHg) 13.70 ml/min/mm H g [facility] DLCO LLN (ml/min/mmHg) 14.67 ml/min/mmH g [facility] DLCO PREDICTED (ml/min/mmHg) 20.84 ml/min/mmH g [facility] DLCO ULN (ml/min/mmHg) 27.01 ml/min/mmH g [facility] DLCO/VA (ml/min/mmHg/L) 4.22 ml/min/mmH g/L [facility] DLCO/VA PREDICTED (ml/min/mmHg/L) 4.37 ml/min/mmH g/L [facility] DLCOcor PREDICTED (ml/min/mmHg) 20.84 ml/min/mmH g [facility] ERV PREDICTED (L) 0.93 L/S [facility] FEF25% PRE (L/S) 2.63 L/S [facility] ROQ88-02% LLN (L/S) 0.98 L/S [facility] WVQ71-24% PRE (L/S) 0.59 L/S [facility] MIK00-75% PREDICTED (L/S) 2.02 L/S [facility] FEF75% LLN (L/S) 0.20 L/S [facility] FEF75% PRE (L/S0 0.27 L/S [facility] FEF75% PREDICTED (L/S) 0.53 L/S [facility] FEF75% ULN (L/S) 1.31 L/S [facility] FET PRE (S) 6.95 S [facility] FEV1 LLN (L) 1.56 L [facility] FEV1 PRE (L) 1.27 L [facility] FEV1 PREDICTED (L) 2.21 L [facility] FEV1 ULN (L) 2.82 L [facility] FEV1/FVC LLN (%) 67 % [facility] FEV1/FVC PRE (%) 61 % [facility] FEV1/FVC PREDICTED (%) 79 % [facility] FVC LLN (L) 2.01 L [facility] FVC PRE (L) 2.07 L [facility] FVC PREDICTED (L) 2.80 L [facility] FVC ULN (L) 3.62 L [facility] IC PREDICTED (L) 1.87 L/S [facility] PEF LLN (L/S) 4.20 L/S [facility] PEF PRE (L/S) 3.01 L/S [facility] PEF ULN (L/S) 7.59 L/S [facility] SVC LLN (L) 2.01 L/S [facility] SVC PREDICTED (L) 2.80 L/S [facility] SVC ULN (L) 3.62 L/S [facility] VA (L) 3.25 L [facility] VA PREDICTED (L) 5.00 L [facility] US CAROTID ARTERIES OBEY VAS LABon 07-11-2024 US CAROTID ARTERIES OBEY VAS LAB Normal [facility] CNPNon 06-04-2024 CNPN Normal [facility] Follow-Upon 05-30-2024 Follow-Up Normal [facility] Ambulatory Visit Summaryon 1 07-27-2023 Ambulatory [...] PM EDT With: Lauro Simon MD Where: [facility] General Surgery [address] [place] [address]- Medications What How Much When Why Instructions [...] for choosing us for your care. Normal [facility] General Surgery Office/Clini c Noteon 05-27-2024 General Surgery Office/Clinic Note General Surgery Office/Clinic Note Chief Complaint 3 month follow up HPI Staff Emeli is a 63 y.o. 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 Patient admitted an outside facility for hemoptysis. Currently following with infectious disease and pulmonology at [facility] for evaluation of chronic infections of the [...] follow-up visit, related to the original procedure 17159 2. Encounter for follow-up surveillance of breast cancer (Z08: Encounter for follow-up examination after completed treatment for malignant neoplasm) As above Ordered: Postoperative follow-up visit, related to the original procedure 98278 Personal history of malignant neoplasm of breast (Z85.3: Personal history of malignant neoplasm of breast) Portions of this record may have been created with voice recognition artificial intelligence software, specifically [employer], [employer] and or [employer]. Substitutions may have occurred due to [...] 50,000 intl units (1.25 mg) oral capsule, [address] International_Unit= 1 cap(s), Oral, Daily Allergies No [...] influenza virus vaccine, inactivated 07/14/2014 Recorded Normal [facility] Comment on above: Result Comment: Elec tronically Signed By: Aurora RICE, Lauro Peacock\Date and Time Signed: 05/27/24 15:27 EST Documentationon 05-16-2024 Documentation [id number] Jing Kaufman 1960 F Date Provider Department Center 05/16/2024 [employer] No family history on file Normal [facility] Follow-Upon 05-02-2024 Follow-Up Normal [facility] ANESon 05-01-2024 ANES Normal [facility] HPon 05-01-2024 HP [facility] NURSNOTEon 05-01-2024 NURSNOTE [facility] NURSNOTE Bedside swallow stud y completed and passed. [facility] Surgical Pathology Reporton 04-29-2024 Surgical Pathology Report [facility] [address] [place] [address]- Surgical Pathology Report Collected Date/Time: 04/19/2024 09:04 [...] characteristics were determined by the [facility]. They have not been cleared or approved by the US Food and Drug Administration. The FDA has determined that such clearance or approval is not necessary. These tests are used for clinical purposes. They should not be regarded as investigational or for research. Appropriate positive and negative controls are performed and are acceptable. Normal [facility] Comment on above: Performed By: #### 4 [id number] #### [facility] [address] [place] [address] Telephoneon 04-29-2024 Telephone [phone] [place]aisyt[place]Jing 1960 F Date Provider Department Center 04/29/2024 MEENA HEREDIA [facility] No family history on file Normal [facility] NM PET w/ CT Scan Skull [...] Following the administration of 12.63 millicuries of Y38-Axamecgizahpdhveph (FDG), scans were obtained from above the skull through both feet on a dedicated PET CT unit. Using the servicer\X2019\s standard software, data were reconstructed using filtered [...] 12.6 Imaging Post Administration (mins): 50 Normal [facility] CBC w/ Auto Diffon 4 Basophils/100 WBC (Bld) 0.7 % Normal 0.0-2.0 [facility] Comment on above: Performed By: #### 2 [id number] #### [facility] [address] [place] [address] Basophils/Leukocytes Auto (Bld) [Pure # fraction] 0.0 E9/L Normal 0.0-0.2 [facility] Comment on above: Performed By: #### 2 [id number] #### [facility] [address] [place] [address] Eosinophils (Bld) [#/Vol] 0.1 E9/L Normal 0.0-0.5 [facility] Comment on above: Performed By: #### 2 [id number] #### [facility] [address] [place] [address] Eosinophils/100 WBC (Bld) 1.1 % Normal 0.0-8.0 [facility] Comment on above: Performed By: #### 2 [id number] #### [facility] [address] [place] [address] Erythrocyte distribution width (RBC) [Ratio] 16.0 % High 10.9-14.2 [facility] Comment on above: Performed By: #### 2 [id number] #### [facility] [address] [place] [address] Hematocrit (Bld) [Volume fraction] 31.6 % Low 34.0-46.0 [facility] Comment on above: Performed By: #### 2 [id number] #### [facility] [address] [place] [address] Hemoglobin (Bld) [Mass/Vol] 10.3 g/dL Low 12.0-16.0 [facility] Comment on above: Performed By: #### 2 [id number] #### [facility] [address] [place] [address] Lymphocytes (Bld) [#/Vol] 0.7 E9/L Low 1.0-4.0 [facility] Comment on above: Performed By: #### 2 [id number] #### [facility] [address] [place] [address] Lymphocytes/100 WBC (Bld) 14.2 % Normal 14.0-50.0 [facility] Comment on above: Performed By: #### 2 [id number] #### [facility] [address] [place] [address] MCH (RBC) [Entitic mass] 29.2 pg Normal 27.0-34.0 [facility] Comment on above: Performed By: #### 2 [id number] #### [facility] [address] [place] [address] MCHC (RBC) [Mass/Vol] 32.5 g/dL Normal 31.4-36.0 [facility] Comment on above: Performed By: #### 2 [id number] #### [facility] [address] [place] [address] MCV (RBC) [Entitic vol] 89.7 fL Normal 80.0-100.0 [facility] Comment on above: Performed By: #### 2 [id number] #### [facility] [address] [place] [address] Monocytes (Bld) [#/Vol] 0.5 E9/L Normal 0.2-1.0 [facility] Comment on above: Performed By: #### 2 [id number] #### [facility] [address] [place] [address] Neutrophils (Bld) [#/Vol] 3.6 E9/L Normal 2.0-7.5 [facility] Comment on above: Performed By: #### 2 [id number] #### [facility] [address] [place] [address] Neutrophils/100 WBC (Bld) 74.6 % Normal 36.0-75.0 [facility] Comment on above: Performed By: #### 2 [id number] #### [facility] [address] [place] [address] Platelet mean volume (Bld) [Entitic vol] 7.1 fL Normal 6.4-10.8 [facility] Comment on above: Performed By: #### 2 [id number] #### [facility] [address] [place] [address] Platelets (Bld) [#/Vol] 392.0 E9/L Normal 150.0-500. 0 [facility] Comment on above: Performed By: #### 2 [id number] #### [facility] [address] [place] [address] RBC (Bld) [#/Vol] 3.5 E12/L Low 4.3-5.9 [facility] Comment on above: Performed By: #### 2 [id number] #### [facility] [address] [place] [address] WBC corrected for nucl RBC Auto (Bld) [#/Vol] 4.8 E9/L Normal 4.0-11.0 [facility] Comment on above: Performed By: #### 2 [id number] #### [facility] [address] [place] [address] COAGULATIONOrdered By: Gaston Harp on 04-19-2024 aPTT Coag (PPP) [Time] 32.7 s Normal 25.1 - 36.5 second(s) [facility] Auto Coag Comment on above: Interpretive Data: [...] the same coagulation reagent and instrumentation as [facility]. Currently there are no coagulation studies available worldwide for children to 14 days, and no normal ranges. Heparin therapeutic range (represented by Anti-Factor Xa activity of 0.2 - 0.4 U/mL) corresponds to PTT of 56.6 - 109.0 sec. INR Coag (PPP) [Relative time] 1.17 {INR} Invalid Interpretation Code [facility] Auto Coag Comment on above: Interpretive Data: I NR results are specifically intended to assess patients stabilized on long-term Anticoagulation therapy suggested INR s Less Intensive Anticoagulation 2.0 3.0 Conventional Range 3.0 4.5 PT Coag (PPP) [Time] 13.1 s High 9.4 - 1 2.5 second(s) [facility] Auto Coag Comment on above: Interpretive Data: [...] the same coagulation reagent and instrumentation as [facility]. Currently there are no coagulation studies available [...] MD Transcribed by: MEAGAN Technologist: Trenton MOON [facility] HEMATOLOGYOrdered By: SYSTEM SYSTEM on 04-19-2024 Basophils/100 [...] [Relative time] 1.17 {INR} Invalid Interpretation Code [facility] Comment on above: Result Comment: INR results are specifically intended to assess patients stabilized on long-term Anticoagulation therapy suggested INR?s ?Less Intensive Anticoagulation? 2.0 ? 3.0 Conventional Range 3.0 ? 4.5 Performed By: #### 2 [id number] #### [facility] [address] [place] [address] PT Coag (PPP) [Time] 13.1 second(s) High 9.4-12.5 [facility] Comment on above: Result Comment: 15 [...] the same coagulation reagent and instrumentation as [facility]. Currently there are no coagulation studies available worldwide for children to 14 days, and no normal ranges. Performed By: #### 2 [id number] #### [facility] [address] [place] [address] PTTon 04-19-2024 aPTT Coag (PPP) [Time] 32.7 second(s) Normal 25.1-36.5 [facility] Comment on above: Result Comment: Para [...] the same coagulation reagent and instrumentation as [facility]. Currently there are no coagulation studies available worldwide for children to 14 days, and no normal ranges. Heparin therapeutic range (represented by Anti-Factor Xa activity of 0.2 - 0.4 U/mL) corresponds to PTT of 56.6 - 109.0 sec. Performed By: #### 2 [id number] #### [facility] [address] [place] [address] U24 Prot Electon 04-17-2024 Albumin Elph (24H U) [Mass fraction] 22.8 % Invalid Interpretation Code [facility] Comment on above: Order Comment: [facility] called and asked if gina had sent order over yet since they werent able to see the order. I went ahead and put the sample into transit for them. She will call back if they cant see the order. 04/15/2024 16:14:48 EDT [id number] Performed By: #### 1 [id number] #### [facility] [address] [place] [address] Alpha 1 globulin Elph (24H U) [Mass fraction] 6.9 % Invalid Interpretation Code [facility] Comment on above: Order Comment: [facility] called and asked if gina had sent order over yet since they werent able to see the order. I went ahead and put the sample into transit for them. She will call back if they cant see the order. 04/15/2024 16:14:48 EDT [id number] Performed By: #### 1 [id number] #### [facility] [address] [place] [address] Alpha 2 globulin Elph (24H U) [Mass fraction] 21.0 % Invalid Interpretation Code [facility] Comment on above: Order Comment: [facility] called and asked if gina had sent order over yet since they werent able to see the order. I went ahead and put the sample into transit for them. She will call back if they cant see the order. 04/15/2024 16:14:48 EDT [id number] Performed By: #### 1 [id number] #### [facility] [address] [place] [address] Beta globulin Elph (24H U) [Mass fraction] 27.8 % Invalid Interpretation Code [facility] Comment on above: Order Comment: [facility] called and asked if gina had sent order over yet since they werent able to see the order. I went ahead and put the sample into transit for them. She will call back if they cant see the order. 04/15/2024 16:14:48 EDT [id number] Performed By: #### 1 [id number] #### [facility] [address] [place] [address] Gamma globulin Elph (24H U) [Mass fraction] 21.5 % Invalid Interpretation Code [facility] Comment on above: Order Comment: [facility] called and asked if gina had sent order over yet since they werent able to see the order. I went ahead and put the sample into transit for them. She will call back if they cant see the order. 04/15/2024 16:14:48 EDT [id number] Performed By: #### 1 [id number] #### [facility] [address] [place] [address] Laboratory comment Yossi (Report) Comment Invalid Interpretation Code [facility] Comment on above: Order Comment: [facility] called and asked if gina had sent order over yet since they werent able to see the order. I went ahead and put the sample into transit for them. She will call back if they cant see the order. 04/15/2024 16:14:48 EDT [id number] Result Comment: Prot ein electrophoresis scan will follow via computer, mail, or finance advisor delivery. Performed at: [facility] [id number] PhD Adelfo Shannon Performed By: #### 1 [id number] #### [facility] [address] [place] [address] Protein (24H U) [Mass/Time] 130 mg/24hr Invalid Interpretation Code 30-150 [facility] Comment on above: Order Comment: [facility] called and asked if gina had sent order over yet since they werent able to see the order. I went ahead and put the sample into transit for them. She will call back if they cant see the order. 04/15/2024 16:14:48 EDT [id number] Performed By: #### 1 [id number] #### [facility] [address] [place] [address] Protein (U) [Mass/Vol] 9.6 mg/dL Invalid Interpretation Code Not Estab. [facility] Comment on above: Order Comment: [facility] called and asked if gina had sent order over yet since they werent able to see the order. I went ahead and put the sample into transit for them. She will call back if they cant see the order. 04/15/2024 16:14:48 EDT [id number] Performed By: #### 1 [id number] #### [facility] [address] [place] [address] Protein.monoclonal Elph (24H U) [Mass fraction] Not Observed Invalid Interpretation Code Not Observed [facility] Comment on above: Order Comment: [facility] called and asked if gina had sent order over yet since they werent able to see the order. I went ahead and put the sample into transit for them. She will call back if they cant see the order. 04/15/2024 16:14:48 EDT [id number] Performed By: #### 1 [id number] #### [facility] [address] [place] [address] WRITTEN AUTHORIZATIONon Written Authorization Comment Invalid Interpretation Code [facility] Comment on above: Result Comment: Writ ten Authorization Received. Authorization received from electronic requisition 04-15-2024 Logged by Nya Burt Performed at: [facility] [id number] PhD Adelfo Shannon Performed By: #### 3 [id number] #### [facility] [address] [place] [address] CA 15-3on 04-15-2024 Cancer Ag 15-3 Qn 19.4 unit/mL Invalid Interpretation Code 0.0-25.0 [facility] Comment on above: Result Comment: [employer] Electrochemiluminescence Immunoassay (ECLIA) Values obtained with different assay methods or kits cannot be used interchangeably. Results cannot be interpreted as absolute evidence of the presence or absence of malignant disease. Performed at: [address] [id number] Adelfo Shannon Performed By: #### 1 [id number] #### [facility] [address] [place] [address] CA 27 29on 04-15-2024 Cancer Ag 27-29 Qn 24.0 unit/mL Invalid Interpretation Code 0.0-38.6 [facility] Comment on above: Result Comment: [employer] Immunochemiluminometric Methodology (ICMA) Values obtained with different assay methods or kits cannot be used interchangeably. Results cannot be interpreted as absolute evidence of the presence or absence of malignant disease. Performed at: [address] [id number] PhD Adelfo Shannon Performed By: #### 1 [id number] #### [facility] [address] [place] [address] Free K+L Lt Chains,Qn,Son Immunoglobulin light chains.kappa.free (S) [Mass/Vol] 35.2 mg/L High 3.3-19.4 [facility] Comment on above: Performed By: #### 2 [id number] #### [facility] [address] [place] [address] Immunoglobulin light chains.kappa.free/Imm unoglobulin light chains.lambda.free (S) [Mass ratio] 1.12 Invalid Interpretation Code 0.26-1.65 [facility] Comment on above: Result Comment: Perf ormed at: [place] [id number] [place], [place] [id number] PhD Adelfo Shannon Performed By: #### 2 [id number] #### [facility] [address] [place] [address] Immunoglobulin light chains.lambda.free [Mass/Vol] 31.5 mg/L High 5.7-26.3 [facility] Comment on above: Performed By: #### 2 [id number] #### [facility] [address] [place] [address] JULIO and PE, Serumon 04-15-20 24 Albumin [Mass/Vol] 3.0 g/dL Invalid Interpretation Code 2.9-4.4 [facility] Comment on above: Performed By: #### 1 [id number] #### [facility] [address] [place] [address] Albumin/Globulin [Mass ratio] 0.8 {ratio} Invalid Interpretation Code 0.7-1.7 [facility] Comment on above: Performed By: #### 1 [id number] #### [facility] [address] [place] [address] Alpha 1 globulin Elph [Mass/Vol] 0.5 g/dL High 0.0-0.4 [facility] Comment on above: Performed By: #### 1 [id number] #### [facility] [address] [place] [address] Alpha 2 globulin Elph [Mass/Vol] 0.9 g/dL Invalid Interpretation Code 0.4-1.0 [facility] Comment on above: Performed By: #### 1 [id number] #### [facility] [address] [place] [address] Beta globulin Elph [Mass/Vol] 1.2 g/dL Invalid Interpretation Code 0.7-1.3 [facility] Comment on above: Performed By: #### 1 [id number] #### [facility] [address] [place] [address] Gamma globulin Elph [Mass/Vol] 1.4 g/dL Invalid Interpretation Code 0.4-1.8 [facility] Comment on above: Performed By: #### 1 [id number] #### [facility] [address] [place] [address] Globulin (S) [Mass/Vol] 4.0 g/dL High 2.2-3.9 [facility] Comment on above: Performed By: #### 1 [id number] #### [facility] [address] [place] [address] IgA [Mass/Vol] 533 mg/dL High 87-352 [facility] Comment on above: Performed By: #### 1 [id number] #### [facility] [address] [place] [address] IgG [Mass/Vol] 1396 mg/dL Invalid Interpretation Code [id number] [facility] Comment on above: Performed By: #### 1 [id number] #### [facility] [address] [place] [address] IgM [Mass/Vol] 114 mg/dL Invalid Interpretation Code [facility] Comment on above: Performed By: #### 1 [id number] #### [facility] [address] [place] [address] Interpretation IEP [Interp] Comment Invalid Interpretation Code [facility] Comment on above: Result Comment: No m onoclonality detected. Performed By: #### 1 [id number] #### [facility] [address] [place] [address] Laboratory comment Yossi (Report) Comment Invalid Interpretation Code [facility] Comment on above: Result Comment: Prot ein electrophoresis scan will follow via computer, mail, or finance advisor delivery. Performed at: [address] [id number] PhD Adelfo Shannon Performed By: #### 1 [id number] #### [facility] [address] [place] [address] Protein [Mass/Vol] 7.0 g/dL Invalid Interpretation Code 6.0-8.5 [facility] Comment on above: Performed By: #### 1 [id number] #### [facility] [address] [place] [address] Protein.monoclonal Elph [Mass/Vol] Not Observed Invalid Interpretation Code Not Observed [facility] Comment on above: Performed By: #### 1 [id number] #### [facility] [address] [place] [address] IgE, Quanton 04-15-2024 IgE Qn 24 International_Unit/mL Invalid Interpretation Code 6-495 [facility] Comment on above: Result Comment: Perf ormed at: [facility] [address] [id number] MD José Miguel Shipman Performed By: #### 1 [id number] #### [facility] [address] [place] [address] Urine Vol/Per Ref Labon 03-19 Hrs Will Ref Lab 24 hour(s) Invalid Interpretation Code [facility] Comment on above: Order Comment: Order added by Discern Expert Performed By: #### 9 [id number] #### [facility] [address] [place] [address] Specimen volume Unsp time (U) 1350 mL Invalid Interpretation Code [facility] Comment on above: Order Comment: Order added by Discern Expert Performed By: #### 9 [id number] #### [facility] [address] [place] [address] Lab Miscellaneous-LCon 04-13 Lab Miscellaneous COMMENT Invalid Interpretation Code [facility] Comment on above: Order Comment: 24 hr urine TV-1350 ML Result Comment: Test Ordered: [id number] Free K+L Lt Chains,Qn,Ur Free [place] Lt Chains,Ur 89.13 [H ] mg/L BN Reference Range: 1.17-86.46 Free Lambda Lt Chains,Ur 10.17 mg/L BN Reference Range: 0.27-15.21 [place]/Lambda Ratio,U 8.76 BN Reference Range: 1.83-14.26 Performed at: [facility] [address] [id number] PhD Adelfo Shannon Performed By: #### 1 [id number] #### [facility] [address] [place] [address] Lab Miscellaneous-LCon 04-11 Test Code 809502 Invalid Interpretation Code [facility] Comment on above: Order Comment: 24 hr urine TV-1350 ML Performed By: #### 1 [id number] #### [facility] [address] [place] [address] Lab Miscellaneous-LCOrdered By: Estela Kimberly on 04-11-2024 Test Name FLC 24hr UR Invalid Interpretation Code [facility] Comment on above: Order Comment: 24 hr urine TV-1350 ML Performed By: #### 1 [id number] #### [facility] [address] [place] [address] Reference Laboratory Testing Ordered By: Estela Harris on 04-11-2024 Test Code 944209 1 Invalid Interpretation Code [facility] Ambulatory Visit Summaryon 0 04-09-2024 Ambulatory [...] EST With: Aurora RICE, Lauro Toro Where: [facility] General Surgery [place] [address], [address] [place] [address]- Medications What How Much When Why Instructions [...] for choosing us for your care. Normal [facility] CBC w/ Auto Diffon 4 Basophils/100 WBC (Bld) 0.4 % Normal 0.0-2.0 [facility] Comment on above: Performed By: #### 2 [id number] #### [facility] [address] [place] [address] Basophils/Leukocytes Auto (Bld) [Pure # fraction] 0.0 E9/L Normal 0.0-0.2 [facility] Comment on above: Performed By: #### 2 [id number] #### [facility] [address] [place] [address] Eosinophils (Bld) [#/Vol] 0.0 E9/L Normal 0.0-0.5 [facility] Comment on above: Performed By: #### 2 [id number] #### [facility] [address] [place] [address] Eosinophils/100 WBC (Bld) 0.2 % Normal 0.0-8.0 [facility] Comment on above: Performed By: #### 2 [id number] #### [facility] [address] [place] [address] Erythrocyte distribution width (RBC) [Ratio] 15.7 % High 10.9-14.2 [facility] Comment on above: Performed By: #### 2 [id number] #### [facility] [address] [place] [address] Hematocrit (Bld) [Volume fraction] 32.0 % Low 34.0-46.0 [facility] Comment on above: Performed By: #### 2 [id number] #### [facility] [address] [place] [address] Hemoglobin (Bld) [Mass/Vol] 10.7 g/dL Low 12.0-16.0 [facility] Comment on above: Performed By: #### 2 [id number] #### [facility] [address] [place] [address] Lymphocytes (Bld) [#/Vol] 0.5 E9/L Low 1.0-4.0 [facility] Comment on above: Performed By: #### 2 [id number] #### [facility] [address] [place] [address] Lymphocytes/100 WBC (Bld) 5.2 % Low 14.0-50.0 [facility] Comment on above: Performed By: #### 2 [id number] #### [facility] [address] [place] [address] MCH (RBC) [Entitic mass] 30.7 pg Normal 27.0-34.0 [facility] Comment on above: Performed By: #### 2 [id number] #### [facility] [address] [place] [address] MCHC (RBC) [Mass/Vol] 33.3 g/dL Normal 31.4-36.0 [facility] Comment on above: Performed By: #### 2 [id number] #### [facility] [address] [place] [address] MCV (RBC) [Entitic vol] 92.2 fL Normal 80.0-100.0 [facility] Comment on above: Performed By: #### 2 [id number] #### [facility] [address] [place] [address] Monocytes (Bld) [#/Vol] 1.0 E9/L Normal 0.2-1.0 [facility] Comment on above: Performed By: #### 2 [id number] #### [facility] [address] [place] [address] Neutrophils (Bld) [#/Vol] 8.6 E9/L High 2.0-7.5 [facility] Comment on above: Performed By: #### 2 [id number] #### [facility] [address] [place] [address] Neutrophils/100 WBC (Bld) 84.0 % High 36.0-75.0 [facility] Comment on above: Performed By: #### 2 [id number] #### [facility] [address] [place] [address] Platelet mean volume (Bld) [Entitic vol] 8.5 fL Normal 6.4-10.8 [facility] Comment on above: Performed By: #### 2 [id number] #### [facility] [address] [place] [address] Platelets (Bld) [#/Vol] 310.0 E9/L Normal 150.0-500. 0 [facility] Comment on above: Performed By: #### 2 [id number] #### [facility] [address] [place] [address] RBC (Bld) [#/Vol] 3.5 E12/L Low 4.3-5.9 [facility] Comment on above: Performed By: #### 2 [id number] #### [facility] [address] [place] [address] WBC corrected for nucl RBC Auto (Bld) [#/Vol] 10.2 E9/L Normal 4.0-11.0 [facility] Comment on above: Performed By: #### 2 [id number] #### [facility] [address] [place] [address] CHEMISTRYOrdered By: SYSTEM SYSTEM on 04-09-2024 Albumin [...] 04-09-2024 Albumin [Mass/Vol] 4.0 g/dL Normal 3.3-5.0 [facility] Comment on above: Performed By: #### 2 [id number] #### [facility] [address] [place] [address] Albumin/Globulin (S) [Mass conc ratio] 1.0 Low 1.1-2.2 [facility] Comment on above: Performed By: #### 2 [id number] #### [facility] [address] [place] [address] ALP [Catalytic activity/Vol] 56 Int._Unit/L Normal 21-98 [facility] Comment on above: Performed By: #### 2 [id number] #### [facility] [address] [place] [address] ALT No additional P-5'-P [Catalytic activity/Vol] 8 Int._Unit/L Normal 6-46 [facility] Comment on above: Performed By: #### 2 [id number] #### [facility] [address] [place] [address] Anion gap [Moles/Vol] 12 mmol/L Normal 6-16 [facility] Comment on above: Performed By: #### 2 [id number] #### [facility] [address] [place] [address] AST [Catalytic activity/Vol] 13 Int._Unit/L Normal 5-43 [facility] Comment on above: Performed By: #### 2 [id number] #### [facility] [address] [place] [address] Bilirubin [Mass/Vol] 0.5 mg/dL Normal 0.0-1.[address] [facility] Comment on above: Performed By: #### 2 [id number] #### [facility] [address] [place] [address] Calcium [Mass/Vol] 9.1 mg/dL Normal 8.9-11.1 [facility] Comment on above: Performed By: #### 2 [id number] #### [facility] [address] [place] [address] Chloride [Moles/Vol] 103 mmol/L Normal 101-[address] [facility] Comment on above: Performed By: #### 2 [id number] #### [facility] [address] [place] [address] CO2 [Moles/Vol] 25 mmol/L Normal 21-31 [facility] Comment on above: Performed By: #### 2 [id number] #### [facility] [address] [place] [address] Creatinine [Mass/Vol] 0.5 mg/dL Normal 0.5-1.3 [facility] Comment on above: Performed By: #### 2 [id number] #### [facility] [address] [place] [address] Globulin (S) [Mass/Vol] 4.0 g/dL Normal 1.4-4.0 [facility] Comment on above: Performed By: #### 2 [id number] #### [facility] [address] [place] [address] Glucose [Mass/Vol] 97 mg/dL Normal 55-199 [facility] Comment on above: Performed By: #### 2 [id number] #### [facility] [address] [place] [address] Potassium [Moles/Vol] 4.2 mmol/L Normal 3.5-5.3 [facility] Comment on above: Performed By: #### 2 [id number] #### [facility] [address] [place] [address] Protein [Mass/Vol] 8.0 g/dL High 6.0-7.8 [facility] Comment on above: Performed By: #### 2 [id number] #### [facility] [address] [place] [address] Sodium [Moles/Vol] 136 mmol/L Normal 135-145 [facility] Comment on above: Performed By: #### 2 [id number] #### [facility] [address] [place] [address] Urea nitrogen [Mass/Vol] 20 mg/dL Normal 5-21 [facility] Comment on above: Performed By: #### 2 [id number] #### [facility] [address] [place] [address] Urea nitrogen/Creatinine [Mass ratio] 40 No Units High 10-20 [facility] Comment on above: Performed By: #### 2 [id number] #### [facility] [address] [place] [address] HEMATOLOGYOrdered By: SYSTEM SYSTEM on 04-09-2024 Basophils/100 [...] 04-09-2024 eGFR 104 mL/min/1.73 m2 Normal >=59 [facility] Comment on above: Performed By: #### 1 [id number] #### [facility] [address] [place] [address] 36on 04-02-2024 36 No one answered the phone call. Normal [facility] Telephoneon 04-02-2024 Telephone Normal [facility] 30on 04-01-2024 30 Normal [facility] BASIC METABOLIC PANELon 03-17 Anion gap [Moles/Vol] 13 mmol/L Normal 7-20 [facility] Comment on above: Performed By: #### L [id number] ####[facility] ([facility])[address] [place] [address] Calcium [Mass/Vol] 9.3 mg/dL Normal 8.6-10.3 [facility] Comment on above: Performed By: #### L [id number] ####[facility] ([facility])[address] [place] [address] Chloride [Moles/Vol] 103 mmol/L Normal 98-107 [facility] Comment on above: Performed By: #### L [id number] ####[facility] ([facility])[address] [place] [address] CO2 [Moles/Vol] 28 mmol/L Normal 21-31 [facility] Comment on above: Performed By: #### L [id number] ####[facility] ([facility])[address] [place] [address] Creatinine [Mass/Vol] 0.52 mg/dL Low 0.60-1.20 [facility] Comment on above: Performed By: #### L [id number] ####[facility] ([facility])[address] [place] [address] GLOMERULAR FILTRATION RATE ML/MIN/1.73 SQ M.PREDICTED 103.0 mL/min/1.73m*2 Normal >60.0 [facility] Comment on above: Result Comment: [facility]???s estimated glomerular filtration rate (eGFR) will [...] of individuals. Performed By: #### L [id number] ####[facility] ([facility])[address] [place] [address] Glucose [Mass/Vol] 84 mg/dL Normal 70-100 [facility] Comment on above: Performed By: #### L [id number] ####[facility] ([facility])[address] [place] [address] Potassium [Moles/Vol] 3.8 mmol/L Normal 3.5-5.1 [facility] Comment on above: Performed By: #### L [id number] ####[facility] ([facility])[address] [place] [address] Sodium [Moles/Vol] 140 mmol/L Normal 136-145 [facility] Comment on above: Performed By: #### L [id number] ####[facility] ([facility])[address] [place] [address] Urea nitrogen [Mass/Vol] 34 mg/dL High 7-25 [facility] Comment on above: Performed By: #### L [id number] ####[facility] ([facility])[address] [place] [address] UREA NITROGEN/CREATININE (MASS RATIO) IN SER/PLAS 65.4 Normal [facility] Comment on above: Performed By: #### L [id number] ####[facility] ([facility])[address] [place] [address] CBC WITH AUTO DIFFERENTIALon 04-01-2024 Basophils (Bld) [#/Vol] 0.04 10*3/uL Normal 0.00-0.20 [facility] Comment on above: Performed By: #### L [id number] ####[facility] ([facility])[address] [place] [address] Basophils/100 WBC (Bld) 0.8 % Normal 0.0-1.0 [facility] Comment on above: Performed By: #### L [id number] ####[facility] ([facility])[address] [place] [address] Eosinophils (Bld) [#/Vol] 0.17 10*3/uL Normal 0.00-0.50 [facility] Comment on above: Performed By: #### L [id number] ####[facility] (BEAKER)[address] [place] [address] Eosinophils/100 WBC (Bld) 3.4 % Normal 0.0-6.0 [facility] Comment on above: Performed By: #### L [id number] ####[facility] ([facility])[address] [place] [address] Erythrocyte distribution width (RBC) [Ratio] 15.7 % High 11.5-15.0 [facility] Comment on above: Performed By: #### L [id number] ####[facility] ([facility])[address] [place] [address] ERYTHROCYTE MEAN CORPUSCULAR HEMOGLOBIN CONCENTRATION (G/DL) BY AUTOMATED 30.8 g/dL Low 32.0-35.0 [facility] Comment on above: Performed By: #### L [id number] ####[facility] ([facility])[address] [place] [address] Hematocrit (Bld) [Volume fraction] 31.8 % Low 36.0-48.0 [facility] Comment on above: Performed By: #### L [id number] ####[facility] (BEAKER)[address] [place] [address] Hemoglobin (Bld) [Mass/Vol] 9.8 g/dL Low 12.0-15.0 [facility] Comment on above: Performed By: #### L [id number] ####[facility] [place] [address] Immature granulocytes (Bld) [#/Vol] 0.04 10*3/uL Normal 0.00-0.20 [facility] Comment on above: Performed By: #### L [id number] ####[facility] (BEAKER)[address] [place] [address] Immature granulocytes/100 WBC (Bld) 0.8 % Normal 0.0-1.0 [facility] Comment on above: Performed By: #### L [id number] ####[facility] (BEAKER)[address] [place] [address] Lymphocytes (Bld) [#/Vol] 1.49 10*3/uL Normal 1.20-4.00 [facility] Comment on above: Performed By: #### L [id number] ####[facility] ([facility]ER)[address] [place] [address] Lymphocytes/100 WBC (Bld) 30.2 % Normal 20.0-45.0 [facility] Comment on above: Performed By: #### L [id number] ####[facility] (BEAKER)[address] [place] [address] MCH (RBC) [Entitic mass] 29.6 pg Normal 27.0-33.0 [facility] Comment on above: Performed By: #### L [id number] ####[facility] (BEAKER)[address] [place] [address] MCV (RBC) [Entitic vol] 96.1 fL Normal 82.0-98.0 [facility] Comment on above: Performed By: #### L [id number] ####[facility] (BEAKER)[address] [place] [address] Monocytes (Bld) [#/Vol] 0.46 10*3/uL Normal 0.10-1.00 [facility] Comment on above: Performed By: #### L [id number] ####[facility] (BEAKER)[address] [place] [address] Monocytes/100 WBC (Bld) 9.3 % Normal 5.0-12.0 [facility] Comment on above: Performed By: #### L [id number] ####[facility] (BEAKER)[address] [place] [address] Neutrophils (Bld) [#/Vol] 2.74 10*3/uL Normal 1.60-7.60 [facility] Comment on above: Performed By: #### L [id number] ####[facility] (BEAKER)[address] [place] [address] Neutrophils/100 WBC (Bld) 55.5 % Normal 40.0-72.0 [facility] Comment on above: Performed By: #### L [id number] ####[facility] ([facility])[address] [address] NRBC (PER 100 WBCS) BY AUTOMATED COUNT 0.0 % Normal 0 [facility] Comment on above: Performed By: #### L [id number] ####[facility] ([facility])[address] [address] PLATELETS (10*3/UL) IN BLOOD AUTOMATED COUNT 393 10*3/uL Normal 150-400 [facility] Comment on above: Performed By: #### L [id number] ####[facility] ([facility])[address] [address] RBC (Bld) [#/Vol] 3.31 10*6/uL Low 3.80-5.00 [facility] Comment on above: Performed By: #### L [id number] ####[facility] ([facility])[address] [address] WBC (Bld) [#/Vol] 4.94 10*3/uL Normal 4.00-10.60 [facility] Comment on above: Performed By: #### L [id number] ####[facility] ([facility])[address] [address] CONSULTon 04-01-2024 CONSULT Normal [facility] DSon 04-01-2024 DS Normal [facility] MAGNESIUMon 04-01-2024 Magnesium [Mass/Vol] 1.9 mg/dL Normal 1.9-2.7 [facility] Comment on above: Performed By: #### L [id number] ####[facility] ([facility])[address] [place] [address] PHOSPHORUSon 04-01-2024 Magnesium [Mass/Vol] 3.1 mg/dL Normal 2.5-5.0 [facility] Comment on above: Performed By: #### L [id number] ####[facility] ([facility])[address] [place] [address] BASIC METABOLIC PANELon 09- Anion gap [Moles/Vol] 12 mmol/L Normal 7-20 [facility] Comment on above: Performed By: #### L [id number] ####[facility] ([facility])[address] [place] [address] Calcium [Mass/Vol] 9.1 mg/dL Normal 8.6-10.3 [facility] Comment on above: Performed By: #### L [id number] ####[facility] ([facility])[address] [place] [address] Chloride [Moles/Vol] 102 mmol/L Normal 98-107 [facility] Comment on above: Performed By: #### L [id number] ####[facility] ([facility])[address] [place] [address] CO2 [Moles/Vol] 28 mmol/L Normal 21-31 [facility] Comment on above: Performed By: #### L [id number] ####[facility] ([facility])[address] [place] [address] Creatinine [Mass/Vol] 0.52 mg/dL Low 0.60-1.20 [facility] Comment on above: Performed By: #### L [id number] ####[facility] ([facility])[address] [facility] [facility] [place] [address] GLOMERULAR FILTRATION RATE ML/MIN/1.73 SQ M.PREDICTED 103.0 mL/min/1.73m*2 Normal >60.0 [facility] Comment on above: Result Comment: [facility]???s estimated glomerular filtration rate (eGFR) will [...] of individuals. Performed By: #### L [id number] ####[facility] ([facility])[address] [place] [address] Glucose [Mass/Vol] 103 mg/dL High 70-100 [facility] Comment on above: Performed By: #### L [id number] ####[facility] ([facility])[address] [place] [address] Potassium [Moles/Vol] 4.0 mmol/L Normal 3.5-5.1 [facility] Comment on above: Performed By: #### L [id number] ####[facility] ([facility])[address] [place] [address] Sodium [Moles/Vol] 138 mmol/L Normal 136-145 [facility] Comment on above: Performed By: #### L [id number] ####[facility] ([facility])[address] [place] [address] Urea nitrogen [Mass/Vol] 28 mg/dL High 7-25 [facility] Comment on above: Performed By: #### L [id number] ####[facility] ([facility])[address] [place] [address] UREA NITROGEN/CREATININE (MASS RATIO) IN SER/PLAS 53.8 Normal [facility] Comment on above: Performed By: #### L [id number] ####[facility] ([facility])[address] [place] [address] CBC WITH AUTO DIFFERENTIALon 03-31-2024 Basophils (Bld) [#/Vol] 0.05 10*3/uL Normal 0.00-0.20 [facility] Comment on above: Performed By: #### L [id number] ####[facility] ([facility])[address] [place] [address] Basophils/100 WBC (Bld) 0.8 % Normal 0.0-1.0 [facility] Comment on above: Performed By: #### L [id number] ####[facility] (BEAKER)[address] [place] [address] Eosinophils (Bld) [#/Vol] 0.16 10*3/uL Normal 0.00-0.50 [facility] Comment on above: Performed By: #### L [id number] ####[facility] ([facility])[address] [place] [address] Eosinophils/100 WBC (Bld) 2.7 % Normal 0.0-6.0 [facility] Comment on above: Performed By: #### L [id number] ####[facility] ([facility])[address] [place] [address] Erythrocyte distribution width (RBC) [Ratio] 15.4 % High 11.5-15.0 [facility] Comment on above: Performed By: #### L [id number] ####[facility] ([facility])[address] [place] [address] ERYTHROCYTE MEAN CORPUSCULAR HEMOGLOBIN CONCENTRATION (G/DL) BY AUTOMATED 31.4 g/dL Low 32.0-35.0 [facility] Comment on above: Performed By: #### L [id number] ####[facility] [place] [address] Hematocrit (Bld) [Volume fraction] 30.6 % Low 36.0-48.0 [facility] Comment on above: Performed By: #### L [id number] ####[facility] (BEAKER)[address] [place] [address] Hemoglobin (Bld) [Mass/Vol] 9.6 g/dL Low 12.0-15.0 [facility] Comment on above: Performed By: #### L [id number] ####[facility] ([facility]ER)[address] [place] [address] Immature granulocytes (Bld) [#/Vol] 0.03 10*3/uL Normal 0.00-0.20 [facility] Comment on above: Performed By: #### L [id number] ####[facility] (BE[facility]ER)[address] [place] [address] Immature granulocytes/100 WBC (Bld) 0.5 % Normal 0.0-1.0 [facility] Comment on above: Performed By: #### L [id number] ####[facility] (BEAKER)[address] [place] [address] Lymphocytes (Bld) [#/Vol] 1.18 10*3/uL Low 1.20-4.00 [facility] Comment on above: Performed By: #### L [id number] ####[facility] (BEAKER)[address] [place] [address] Lymphocytes/100 WBC (Bld) 20.0 % Normal 20.0-45.0 [facility] Comment on above: Performed By: #### L [id number] ####[facility] (BEAKER)[address] [place] [address] MCH (RBC) [Entitic mass] 29.6 pg Normal 27.0-33.0 [facility] Comment on above: Performed By: #### L [id number] ####[facility] (BEAKER)[address] [place] [address] MCV (RBC) [Entitic vol] 94.4 fL Normal 82.0-98.0 [facility] Comment on above: Performed By: #### L [id number] ####[facility] (BE[facility]ER)[address] [place] [address] Monocytes (Bld) [#/Vol] 0.61 10*3/uL Normal 0.10-1.00 [facility] Comment on above: Performed By: #### L [id number] ####[facility] (BEAKER)[address] [place] [address] Monocytes/100 WBC (Bld) 10.4 % Normal 5.0-12.0 [facility] Comment on above: Performed By: #### L [id number] ####[facility] (BEAKER)[address] [place] [address] Neutrophils (Bld) [#/Vol] 3.86 10*3/uL Normal 1.60-7.60 [facility] Comment on above: Performed By: #### L [id number] ####[facility] (BEAKER)[address] [place] [address] Neutrophils/100 WBC (Bld) 65.6 % Normal 40.0-72.0 [facility] Comment on above: Performed By: #### L [id number] ####[facility] [place] [address] NRBC (PER 100 WBCS) BY AUTOMATED COUNT 0.0 % Normal 0 [facility] Comment on above: Performed By: #### L [id number] ####[facility] ([facility])[address] [place] [address] PLATELETS (10*3/UL) IN BLOOD AUTOMATED COUNT 373 10*3/uL Normal 150-400 [facility] Comment on above: Performed By: #### L [id number] ####[facility] ([facility])[address] [place] [address] RBC (Bld) [#/Vol] 3.24 10*6/uL Low 3.80-5.00 [facility] Comment on above: Performed By: #### L [id number] ####[facility] [place] [address] WBC (Bld) [#/Vol] 5.89 10*3/uL Normal 4.00-10.60 [facility] Comment on above: Performed By: #### L [id number] ####[facility] (BEAKER)[address] [place] [address] MAGNESIUMon 03-31-2024 Magnesium [Mass/Vol] 1.9 mg/dL Normal 1.9-2.7 [facility] Comment on above: Performed By: #### L [id number] ####[facility] (BEAKER)[address] [place] [address] Magnesium [Mass/Vol] 1.8 mg/dL Low 1.9-2.7 [facility] Comment on above: Performed By: #### L [id number] ####[facility] ([facility]AKER)[address] [place] [address] NURSNOTEon 03-31-2024 NURSNOTE Normal [facility] NURSNOTE Normal [facility] PHOSPHORUSon 03-31-2024 Magnesium [Mass/Vol] 3.2 mg/dL Normal 2.5-5.0 [facility] Comment on above: Performed By: #### L [id number] ####[facility] ([facility])[address] [place] [address] 30on 03-30-2024 30 Normal [facility] BASIC METABOLIC PANELon 03-17 Anion gap [Moles/Vol] 14 mmol/L Normal 7-20 [facility] Comment on above: Performed By: #### L [id number] ####[facility] (BEAKER)[address] [place] [address] Calcium [Mass/Vol] 9.2 mg/dL Normal 8.6-10.3 [facility] Comment on above: Performed By: #### L [id number] ####[facility] (BEAKER)[address] [place] [address] Chloride [Moles/Vol] 101 mmol/L Normal 98-107 [facility] Comment on above: Performed By: #### L [id number] ####[facility] (BEAKER)[address] [place] [address] CO2 [Moles/Vol] 27 mmol/L Normal 21-31 [facility] Comment on above: Performed By: #### L [id number] ####[facility] (BEAKER)[address] [place] [address] Creatinine [Mass/Vol] 0.44 mg/dL Low 0.60-1.20 [facility] Comment on above: Performed By: #### L [id number] ####[facility] [place] [address] GLOMERULAR FILTRATION RATE ML/MIN/1.73 SQ M.PREDICTED 107.3 mL/min/1.73m*2 Normal >60.0 [facility] Comment on above: Result Comment: [facility]???s estimated glomerular filtration rate (eGFR) will [...] of individuals. Performed By: #### L [id number] ####[facility] ([facility])[address] [place] [address] Glucose [Mass/Vol] 103 mg/dL High 70-100 [facility] Comment on above: Performed By: #### L [id number] ####[facility] ([facility])[address] [place] [address] Potassium [Moles/Vol] 3.8 mmol/L Normal 3.5-5.1 [facility] Comment on above: Performed By: #### L [id number] ####[facility] ([facility])[address] [place] [address] Sodium [Moles/Vol] 138 mmol/L Normal 136-145 [facility] Comment on above: Performed By: #### L [id number] ####[facility] [place] [address] Urea nitrogen [Mass/Vol] 15 mg/dL Normal 7-25 [facility] Comment on above: Performed By: #### L [id number] ####[facility] ([facility])[address] [facility] [place] [address] UREA NITROGEN/CREATININE (MASS RATIO) IN SER/PLAS 34.1 Normal [facility] Comment on above: Performed By: #### L [id number] ####[facility] [place] [address] CBC WITH AUTO DIFFERENTIALon 03-30-2024 Basophils (Bld) [#/Vol] 0.03 10*3/uL Normal 0.00-0.20 [facility] Comment on above: Performed By: #### L [id number] ####[facility] [place] [address] Basophils/100 WBC (Bld) 0.4 % Normal 0.0-1.0 [facility] Comment on above: Performed By: #### L [id number] ####[facility] ([facility])[address] [place] [address] Eosinophils (Bld) [#/Vol] 0.03 10*3/uL Normal 0.00-0.50 [facility] Comment on above: Performed By: #### L [id number] ####[facility] [place] [address] Eosinophils/100 WBC (Bld) 0.4 % Normal 0.0-6.0 [facility] Comment on above: Performed By: #### L [id number] ####[facility] [place] [address] Erythrocyte distribution width (RBC) [Ratio] 14.6 % Normal 11.5-15.0 [facility] Comment on above: Performed By: #### L [id number] ####[facility] [place] [address] ERYTHROCYTE MEAN CORPUSCULAR HEMOGLOBIN CONCENTRATION (G/DL) BY AUTOMATED 32.4 g/dL Normal 32.0-35.0 [facility] Comment on above: Performed By: #### L [id number] ####[facility] (BEAKER)[address] [place] [address] Hematocrit (Bld) [Volume fraction] 29.6 % Low 36.0-48.0 [facility] Comment on above: Performed By: #### L [id number] ####[facility] (BEAKER)[address] [place] [address] Hemoglobin (Bld) [Mass/Vol] 9.6 g/dL Low 12.0-15.0 [facility] Comment on above: Performed By: #### L [id number] ####[facility] [place] [address] Immature granulocytes (Bld) [#/Vol] 0.04 10*3/uL Normal 0.00-0.20 [facility] Comment on above: Performed By: #### L [id number] ####[facility] ([facility])[address] [place] [address] Immature granulocytes/100 WBC (Bld) 0.5 % Normal 0.0-1.0 [facility] Comment on above: Performed By: #### L [id number] ####[facility] ([facility])[address] [place] [address] Lymphocytes (Bld) [#/Vol] 1.16 10*3/uL Low 1.20-4.00 [facility] Comment on above: Performed By: #### L [id number] ####[facility] ([facility])[address] [place] [address] Lymphocytes/100 WBC (Bld) 14.4 % Low 20.0-45.0 [facility] Comment on above: Performed By: #### L [id number] ####[facility] ([facility]AKER)[address] [place] [address] MCH (RBC) [Entitic mass] 30.1 pg Normal 27.0-33.0 [facility] Comment on above: Performed By: #### L [id number] ####[facility] ([facility]AKER)[address] [place] [address] MCV (RBC) [Entitic vol] 92.8 fL Normal 82.0-98.0 [facility] Comment on above: Performed By: #### L [id number] ####[facility] ([facility]AKER)[address] [place] [address] Monocytes (Bld) [#/Vol] 0.83 10*3/uL Normal 0.10-1.00 [facility] Comment on above: Performed By: #### L [id number] ####[facility] (BEAKER)[address] [place] [address] Monocytes/100 WBC (Bld) 10.3 % Normal 5.0-12.0 [facility] Comment on above: Performed By: #### L [id number] ####[facility] (BEAKER)[address] [place] [address] Neutrophils (Bld) [#/Vol] 5.97 10*3/uL Normal 1.60-7.60 [facility] Comment on above: Performed By: #### L [id number] ####[facility] ([facility]AKER)[address] [place] [address] Neutrophils/100 WBC (Bld) 74.0 % High 40.0-72.0 [facility] Comment on above: Performed By: #### L [id number] ####[facility] ([facility]AKER)[address] [place] [address] NRBC (PER 100 WBCS) BY AUTOMATED COUNT 0.0 % Normal 0 [facility] Comment on above: Performed By: #### L [id number] ####[facility] ([facility]AKER)[address] [place] [address] PLATELETS (10*3/UL) IN BLOOD AUTOMATED COUNT 394 10*3/uL Normal 150-400 [facility] Comment on above: Performed By: #### L [id number] ####[facility] ([facility]AKER)[address] [place] [address] RBC (Bld) [#/Vol] 3.19 10*6/uL Low 3.80-5.00 [facility] Comment on above: Performed By: #### L [id number] ####[facility] ([facility]ER)[address] [place] [address] WBC (Bld) [#/Vol] 8.06 10*3/uL Normal 4.00-10.60 [facility] Comment on above: Performed By: #### L [id number] ####[facility] [place] [address] HEMOGLOBIN AND HEMATOCRIT, B LOODon 03-30-2024 Hematocrit (Bld) [Volume fraction] 29.9 % Low 36.0-48.0 [facility] Comment on above: Performed By: #### L [id number] ####[facility] ([facility])[address] [place] [address] Hemoglobin (Bld) [Mass/Vol] 9.7 g/dL Low 12.0-15.0 [facility] Comment on above: Performed By: #### L [id number] ####[facility] ([facility])[address] [place] [address] MAGNESIUMon 03-30-2024 Magnesium [Mass/Vol] 2.1 mg/dL Normal 1.9-2.7 [facility] Comment on above: Performed By: #### L [id number] ####[facility] [address] PHOSPHORUSon 03-30-2024 Magnesium [Mass/Vol] 3.4 mg/dL Normal 2.5-5.0 [facility] Comment on above: Performed By: #### L [id number] ####[facility] [place] [address] BASIC METABOLIC PANELon 03-17 Anion gap [Moles/Vol] 16 mmol/L Normal 7-20 [facility] Comment on above: Performed By: #### L [id number] ####[facility] (BEAKER)[address] [address] Calcium [Mass/Vol] 9.5 mg/dL Normal 8.6-10.3 [facility] Comment on above: Performed By: #### L [id number] ####[facility] [place] [address] Chloride [Moles/Vol] 101 mmol/L Normal 98-107 [facility] Comment on above: Performed By: #### L [id number] ####[facility] ([facility])[address] [place] [address] CO2 [Moles/Vol] 26 mmol/L Normal 21-31 [facility] Comment on above: Performed By: #### L [id number] ####[facility] ([facility])[address] [place] [address] Creatinine [Mass/Vol] 0.48 mg/dL Low 0.60-1.20 [facility] Comment on above: Performed By: #### L [id number] ####[facility] ([facility])[address] [place] [address] GLOMERULAR FILTRATION RATE ML/MIN/1.73 SQ M.PREDICTED 105.0 mL/min/1.73m*2 Normal >60.0 [facility] Comment on above: Result Comment: [facility]???s estimated glomerular filtration rate (eGFR) will [...] of individuals. Performed By: #### L [id number] ####[facility] [place] [address] Glucose [Mass/Vol] 183 mg/dL High 70-100 [facility] Comment on above: Performed By: #### L [id number] ####[facility] ([facility])[address] [place] [address] Potassium [Moles/Vol] 3.9 mmol/L Normal 3.5-5.1 [facility] Comment on above: Performed By: #### L [id number] ####[facility] ([facility]AKER)[address] [place] [address] Sodium [Moles/Vol] 139 mmol/L Normal 136-145 [facility] Comment on above: Performed By: #### L [id number] ####[facility] (BEAKER)[address] [place] [address] Urea nitrogen [Mass/Vol] 13 mg/dL Normal 7-25 [facility] Comment on above: Performed By: #### L [id number] ####[facility] (BEAKER)[address] [place] [address] UREA NITROGEN/CREATININE (MASS RATIO) IN SER/PLAS 27.1 Normal [facility] Comment on above: Performed By: #### L [id number] ####[facility] (BEAKER)[address] [place] [address] Anion gap [Moles/Vol] 10 mmol/L Normal 7-20 [facility] Comment on above: Performed By: #### L [id number] ####[facility] (BEAKER)[address] [place] [address] Calcium [Mass/Vol] 8.5 mg/dL Low 8.6-10.3 [facility] Comment on above: Performed By: #### L [id number] ####[facility] ([facility]AKER)[address] [place] [address] Chloride [Moles/Vol] 107 mmol/L Normal 98-107 [facility] Comment on above: Performed By: #### L [id number] ####[facility] ([facility]AKER)[address] [place] [address] CO2 [Moles/Vol] 26 mmol/L Normal 21-31 [facility] Comment on above: Performed By: #### L [id number] ####[facility] (BEAKER)[address] [place] [address] Creatinine [Mass/Vol] 0.41 mg/dL Low 0.60-1.20 [facility] Comment on above: Performed By: #### L [id number] ####[facility] ([facility])[address] [place] [address] GLOMERULAR FILTRATION RATE ML/MIN/1.73 SQ M.PREDICTED 109.1 mL/min/1.73m*2 Normal >60.0 [facility] Comment on above: Result Comment: [facility]???s estimated glomerular filtration rate (eGFR) will [...] of individuals. Performed By: #### L [id number] ####[facility] ([facility])[address] [place] [address] Glucose [Mass/Vol] 86 mg/dL Normal 70-100 [facility] Comment on above: Performed By: #### L [id number] ####[facility] ([facility])[address] [place] [address] Potassium [Moles/Vol] 3.8 mmol/L Normal 3.5-5.1 [facility] Comment on above: Performed By: #### L [id number] ####[facility] ([facility])[address] [facility] [place] [address] Sodium [Moles/Vol] 139 mmol/L Normal 136-145 [facility] Comment on above: Performed By: #### L [id number] ####[facility] ([facility])[address] [facility] [place] [address] Urea nitrogen [Mass/Vol] 14 mg/dL Normal 7-25 [facility] Comment on above: Performed By: #### L [id number] ####[facility] ([facility])[address] [place] [address] UREA NITROGEN/CREATININE (MASS RATIO) IN SER/PLAS 34.1 Normal [facility] Comment on above: Performed By: #### L [id number] ####[facility] [place] [address] CBC WITH AUTO DIFFERENTIALon 03-29-2024 Basophils (Bld) [#/Vol] 0.03 10*3/uL Normal 0.00-0.20 [facility] Comment on above: Performed By: #### L [id number] ####[facility] ([facility])[address] [place] [address] Basophils/100 WBC (Bld) 0.7 % Normal 0.0-1.0 [facility] Comment on above: Performed By: #### L [id number] ####[facility] ([facility])[address] [place] [address] Eosinophils (Bld) [#/Vol] 0.19 10*3/uL Normal 0.00-0.50 [facility] Comment on above: Performed By: #### L [id number] ####[facility] [place] [address] Eosinophils/100 WBC (Bld) 4.3 % Normal 0.0-6.0 [facility] Comment on above: Performed By: #### L [id number] ####[facility] [place] [address] Erythrocyte distribution width (RBC) [Ratio] 15.2 % High 11.5-15.0 [facility] Comment on above: Performed By: #### L [id number] ####[facility] (BEAKER)[address] [place] [address] ERYTHROCYTE MEAN CORPUSCULAR HEMOGLOBIN CONCENTRATION (G/DL) BY AUTOMATED 31.6 g/dL Low 32.0-35.0 [facility] Comment on above: Performed By: #### L [id number] ####[facility] (BEAKER)[address] [place] [address] Hematocrit (Bld) [Volume fraction] 24.7 % Low 36.0-48.0 [facility] Comment on above: Performed By: #### L [id number] ####[facility] (BEAKER)[address] [place] [address] Hemoglobin (Bld) [Mass/Vol] 7.8 g/dL Low 12.0-15.0 [facility] Comment on above: Performed By: #### L [id number] ####[facility] [place] [address] Immature granulocytes (Bld) [#/Vol] 0.02 10*3/uL Normal 0.00-0.20 [facility] Comment on above: Performed By: #### L [id number] ####[facility] (BEAKER)[address] [place] [address] Immature granulocytes/100 WBC (Bld) 0.4 % Normal 0.0-1.0 [facility] Comment on above: Performed By: #### L [id number] ####[facility] (BEAKER)[address] [place] [address] Lymphocytes (Bld) [#/Vol] 0.87 10*3/uL Low 1.20-4.00 [facility] Comment on above: Performed By: #### L [id number] ####[facility] (BEAKER)[address] [place] [address] Lymphocytes/100 WBC (Bld) 19.5 % Low 20.0-45.0 [facility] Comment on above: Performed By: #### L [id number] ####[facility] (BEAKER)[address] [place] [address] MCH (RBC) [Entitic mass] 29.3 pg Normal 27.0-33.0 [facility] Comment on above: Performed By: #### L [id number] ####[facility] (BEAKER)[address] [place] [address] MCV (RBC) [Entitic vol] 92.9 fL Normal 82.0-98.0 [facility] Comment on above: Performed By: #### L [id number] ####[facility] (BEAKER)[address] [place] [address] Monocytes (Bld) [#/Vol] 0.49 10*3/uL Normal 0.10-1.00 [facility] Comment on above: Performed By: #### L [id number] ####[facility] ([facility])[address] [place] [address] Monocytes/100 WBC (Bld) 11.0 % Normal 5.0-12.0 [facility] Comment on above: Performed By: #### L [id number] ####[facility] ([facility])[address] [place] [address] Neutrophils (Bld) [#/Vol] 2.86 10*3/uL Normal 1.60-7.60 [facility] Comment on above: Performed By: #### L [id number] ####[facility] ([facility])[address] [place] [address] Neutrophils/100 WBC (Bld) 64.1 % Normal 40.0-72.0 [facility] Comment on above: Performed By: #### L [id number] ####[facility] ([facility])[address] [place] [address] NRBC (PER 100 WBCS) BY AUTOMATED COUNT 0.0 % Normal 0 [facility] Comment on above: Performed By: #### L [id number] ####[facility] ([facility])[address] [place] [address] PLATELETS (10*3/UL) IN BLOOD AUTOMATED COUNT 283 10*3/uL Normal 150-400 [facility] Comment on above: Performed By: #### L [id number] ####[facility] [place] [address] RBC (Bld) [#/Vol] 2.66 10*6/uL Low 3.80-5.00 [facility] Comment on above: Performed By: #### L [id number] ####[facility] (BEAKER)[address] [place] [address] WBC (Bld) [#/Vol] 4.46 10*3/uL Normal 4.00-10.60 [facility] Comment on above: Performed By: #### L [id number] ####[facility] (BEAKER)[address] [place] [address] HEMOGLOBIN AND HEMATOCRIT, B LOODon 03-29-2024 Hematocrit (Bld) [Volume fraction] 32.2 % Low 36.0-48.0 [facility] Comment on above: Performed By: #### L [id number] ####[facility] (BEAKER)[address], [place] [address] Hemoglobin (Bld) [Mass/Vol] 10.4 g/dL Low 12.0-15.0 [facility] Comment on above: Performed By: #### L [id number] ####[facility] (BEAKER)[address] [place] [address] Hematocrit (Bld) [Volume fraction] 23.8 % Low 36.0-48.0 [facility] Comment on above: Performed By: #### L [id number] ####[facility] (BEAKER)[address] [place] [address] Hemoglobin (Bld) [Mass/Vol] 7.8 g/dL Low 12.0-15.0 [facility] Comment on above: Performed By: #### L [id number] ####[facility] (BEAKER)[address] [place] [address] Hematocrit (Bld) [Volume fraction] 25.2 % Low 36.0-48.0 [facility] Comment on above: Performed By: #### L [id number] ####[facility] (BEAKER)[address] [place] [address] Hemoglobin (Bld) [Mass/Vol] 8.1 g/dL Low 12.0-15.0 [facility] Comment on above: Performed By: #### L [id number] ####[facility] (BEAKER)[address] [place] [address] MAGNESIUMon 03-29-2024 Magnesium [Mass/Vol] 1.8 mg/dL Low 1.9-2.7 [facility] Comment on above: Performed By: #### L [id number] ####[facility] (BEAKER)[address] [place] [address] Magnesium [Mass/Vol] 1.9 mg/dL Normal 1.9-2.7 [facility] Comment on above: Performed By: #### L [id number] ####[facility] [place] [address] PHOSPHORUSon 03-29-2024 Magnesium [Mass/Vol] 3.6 mg/dL Normal 2.5-5.0 [facility] Comment on above: Performed By: #### L [id number] ####[facility] ([facility])[address] [place] [address] BASIC METABOLIC PANELon 03-17 Anion gap [Moles/Vol] 9 mmol/L Normal 7-20 [facility] Comment on above: Performed By: #### L [id number] ####[facility] [place] [address] Calcium [Mass/Vol] 8.1 mg/dL Low 8.6-10.3 [facility] Comment on above: Performed By: #### L [id number] ####[facility] (BEAKER)[address] [place] [address] Chloride [Moles/Vol] 107 mmol/L Normal 98-107 [facility] Comment on above: Performed By: #### L [id number] ####[facility] (BEAKER)[address] [place] [address] CO2 [Moles/Vol] 26 mmol/L Normal 21-31 [facility] Comment on above: Performed By: #### L [id number] ####[facility] (BEAKER)[address] [place] [address] Creatinine [Mass/Vol] 0.47 mg/dL Low 0.60-1.20 [facility] Comment on above: Performed By: #### L [id number] ####[facility] ([facility])[address] [place] [address] GLOMERULAR FILTRATION RATE ML/MIN/1.73 SQ M.PREDICTED 105.6 mL/min/1.73m*2 Normal >60.0 [facility] Comment on above: Result Comment: [facility]???s estimated glomerular filtration rate (eGFR) will [...] of individuals. Performed By: #### L [id number] ####[facility] ([facility])[address] [place] [address] Glucose [Mass/Vol] 111 mg/dL High 70-100 [facility] Comment on above: Performed By: #### L [id number] ####[facility] ([facility])[address] [place] [address] Potassium [Moles/Vol] 3.8 mmol/L Normal 3.5-5.1 [facility] Comment on above: Performed By: #### L [id number] ####[facility] ([facility])[address] [place] [address] Sodium [Moles/Vol] 138 mmol/L Normal 136-145 [facility] Comment on above: Performed By: #### L [id number] ####[facility] ([facility])[address] [facility] [place] [address] Urea nitrogen [Mass/Vol] 24 mg/dL Normal 7-25 [facility] Comment on above: Performed By: #### L [id number] ####[facility] [place] [address] UREA NITROGEN/CREATININE (MASS RATIO) IN SER/PLAS 51.1 Normal [facility] Comment on above: Performed By: #### L [id number] ####[facility] [place] [address] CBC WITH AUTO DIFFERENTIALon 03-28-2024 Basophils (Bld) [#/Vol] 0.05 10*3/uL Normal 0.00-0.20 [facility] Comment on above: Performed By: #### L [id number] ####[facility] ([facility])[address] [place] [address] Basophils/100 WBC (Bld) 0.6 % Normal 0.0-1.0 [facility] Comment on above: Performed By: #### L [id number] ####[facility] ([facility])[address] [place] [address] Eosinophils (Bld) [#/Vol] 0.11 10*3/uL Normal 0.00-0.50 [facility] Comment on above: Performed By: #### L [id number] ####[facility] ([facility])[address] [place] [address] Eosinophils/100 WBC (Bld) 1.3 % Normal 0.0-6.0 [facility] Comment on above: Performed By: #### L [id number] ####[facility] ([facility])[address] [place] [address] Erythrocyte distribution width (RBC) [Ratio] 15.4 % High 11.5-15.0 [facility] Comment on above: Performed By: #### L [id number] ####[facility] ([facility])[address] [place] [address] ERYTHROCYTE MEAN CORPUSCULAR HEMOGLOBIN CONCENTRATION (G/DL) BY AUTOMATED 32.0 g/dL Normal 32.0-35.0 [facility] Comment on above: Performed By: #### L [id number] ####[facility] ([facility])[address] [place] [address] Hematocrit (Bld) [Volume fraction] 25.3 % Low 36.0-48.0 [facility] Comment on above: Performed By: #### L [id number] ####[facility] ([facility])[address] [place] [address] Hemoglobin (Bld) [Mass/Vol] 8.1 g/dL Low 12.0-15.0 [facility] Comment on above: Performed By: #### L [id number] ####[facility] ([facility])[address] [place] [address] Immature granulocytes (Bld) [#/Vol] 0.04 10*3/uL Normal 0.00-0.20 [facility] Comment on above: Performed By: #### L [id number] ####[facility] ([facility])[address] [place] [address] Immature granulocytes/100 WBC (Bld) 0.5 % Normal 0.0-1.0 [facility] Comment on above: Performed By: #### L [id number] ####[facility] ([facility])[address] [place] [address] Lymphocytes (Bld) [#/Vol] 1.35 10*3/uL Normal 1.20-4.00 [facility] Comment on above: Performed By: #### L [id number] ####[facility] ([facility])[address] [place] [address] Lymphocytes/100 WBC (Bld) 15.9 % Low 20.0-45.0 [facility] Comment on above: Performed By: #### L [id number] ####[facility] ([facility])[address] [place] [address] MCH (RBC) [Entitic mass] 30.1 pg Normal 27.0-33.0 [facility] Comment on above: Performed By: #### L [id number] ####[facility] ([facility])[address] [place] [address] MCV (RBC) [Entitic vol] 94.1 fL Normal 82.0-98.0 [facility] Comment on above: Performed By: #### L [id number] ####[facility] (BEAKER)[address] [place] [address] Monocytes (Bld) [#/Vol] 0.83 10*3/uL Normal 0.10-1.00 [facility] Comment on above: Performed By: #### L [id number] ####[facility] (BEAKER)[address] [place] [address] Monocytes/100 WBC (Bld) 9.8 % Normal 5.0-12.0 [facility] Comment on above: Performed By: #### L [id number] ####[facility] (BEAKER)[address] [place] [address] Neutrophils (Bld) [#/Vol] 6.10 10*3/uL Normal 1.60-7.60 [facility] Comment on above: Performed By: #### L [id number] ####[facility] (BEAKER)[address] [place] [address] Neutrophils/100 WBC (Bld) 71.9 % Normal 40.0-72.0 [facility] Comment on above: Performed By: #### L [id number] ####[facility] (BEAKER)[address] [place] [address] NRBC (PER 100 WBCS) BY AUTOMATED COUNT 0.0 % Normal 0 [facility] Comment on above: Performed By: #### L [id number] ####[facility] (BEAKER)[address] [place] [address] PLATELETS (10*3/UL) IN BLOOD AUTOMATED COUNT 397 10*3/uL Normal 150-400 [facility] Comment on above: Performed By: #### L [id number] ####[facility] (BEAKER)[address] [place] [address] RBC (Bld) [#/Vol] 2.69 10*6/uL Low 3.80-5.00 [facility] Comment on above: Performed By: #### L [id number] ####[facility] (BEAKER)[address] [address] WBC (Bld) [#/Vol] 8.48 10*3/uL Normal 4.00-10.60 [facility] Comment on above: Performed By: #### L [id number] ####[facility] (BEAKER)[address] [address] CONSULTon 03-28-2024 CONSULT Normal [facility] HEMOGLOBIN AND HEMATOCRIT, B LOODon 03-28-2024 Hematocrit (Bld) [Volume fraction] 24.9 % Low 36.0-48.0 [facility] Comment on above: Performed By: #### L [id number] ####[facility] (BEAKER)[address] [address] Hemoglobin (Bld) [Mass/Vol] 7.9 g/dL Low 12.0-15.0 [facility] Comment on above: Performed By: #### L [id number] ####[facility] (BEAKER)[address] [address] Hematocrit (Bld) [Volume fraction] 25.7 % Low 36.0-48.0 [facility] Comment on above: Performed By: #### L [id number] ####[facility] (BEAKER)[address] [address] Hemoglobin (Bld) [Mass/Vol] 8.2 g/dL Low 12.0-15.0 [facility] Comment on above: Performed By: #### L [id number] ####[facility] (BEAKER)[address] [address] MAGNESIUMon 03-28-2024 Magnesium [Mass/Vol] 1.9 mg/dL Normal 1.9-2.7 [facility] Comment on above: Performed By: #### L [id number] ####[facility] ([facility]AKER)[address] [place] [address] PHOSPHORUSon 03-28-2024 Magnesium [Mass/Vol] 3.0 mg/dL Normal 2.5-5.0 [facility] Comment on above: Performed By: #### L [id number] ####[facility] ([facility])[address] [place] [address] 30on 03-27-2024 30 Normal [facility] 30 Normal [facility] 30 Normal [facility] AFB CULTUREon 03-27-2024 AFB CULTURE No growth at 42 days Normal [facility] Comment on above: Performed By: #### L [id number] ####[facility] ([facility])[address] [place] [address] AFB STAIN No acid fast bacilli seen Normal [facility] Comment on above: Performed By: #### L [id number] ####[facility] ([facility])[address] [place] [address] APTTon 03-27-2024 ACTIVATED PARTIAL THROMBOPLASTIN TIME IN PPP BY COAGULATION ASSAY 27.7 Seconds Normal 25.0-35.0 [facility] Comment on above: Result Comment: Clin ical significance of the APTT is questionable in the presence of heparin. Performed By: #### L [id number] ####[facility] ([facility])[address] [place] [address] ACTIVATED PARTIAL THROMBOPLASTIN TIME IN PPP BY COAGULATION ASSAY 31.3 Seconds Normal 25.0-35.0 [facility] Comment on above: Result Comment: Clin ical significance of the APTT is questionable in the presence of heparin. Performed By: #### L [id number] ####[facility] ([facility])[address] [place] [address] B-TYPE NATRIURETIC PEPTIDEon 03-27-2024 Natriuretic peptide B (Bld) [Mass/Vol] 53 pg/mL Normal 0-100 [facility] Comment on above: Performed By: #### L [id number] ####[facility] ([facility])[address] [place] [address] BASIC METABOLIC PANELon 03-17 Anion gap [Moles/Vol] 10 mmol/L Normal 7-20 [facility] Comment on above: Performed By: #### L [id number] ####[facility] [place] [address] Calcium [Mass/Vol] 8.2 mg/dL Low 8.6-10.3 [facility] Comment on above: Performed By: #### L [id number] ####[facility] [place] [address] Chloride [Moles/Vol] 106 mmol/L Normal 98-107 [facility] Comment on above: Performed By: #### L [id number] ####[facility] (BEAKER)[address] [place] [address] CO2 [Moles/Vol] 26 mmol/L Normal 21-31 [facility] Comment on above: Performed By: #### L [id number] ####[facility] [place] [address] Creatinine [Mass/Vol] 0.51 mg/dL Low 0.60-1.20 [facility] Comment on above: Performed By: #### L [id number] ####[facility] [place] [address] GLOMERULAR FILTRATION RATE ML/MIN/1.73 SQ M.PREDICTED 103.5 mL/min/1.73m*2 Normal >60.0 [facility] Comment on above: Result Comment: The [facility]???s estimated glomerular filtration rate (eGFR) will [...] of individuals. Performed By: #### L [id number] ####[facility] (BEAKER)[address] [place] [address] Glucose [Mass/Vol] 103 mg/dL High 70-100 [facility] Comment on above: Performed By: #### L [id number] ####[facility] (BEAKER)[address] [place] [address] Potassium [Moles/Vol] 4.0 mmol/L Normal 3.5-5.1 [facility] Comment on above: Performed By: #### L [id number] ####[facility] (BEAKER)[address] [place] [address] Sodium [Moles/Vol] 138 mmol/L Normal 136-145 [facility] Comment on above: Performed By: #### L [id number] ####[facility] (BEAKER)[address] [place] [address] Urea nitrogen [Mass/Vol] 26 mg/dL High 7-25 [facility] Comment on above: Performed By: #### L [id number] ####[facility] (BEAKER)[address] [place] [address] UREA NITROGEN/CREATININE (MASS RATIO) IN SER/PLAS 51.0 [facility] Comment on above: Performed By: #### L [id number] ####[facility] ([facility]AKER)[address] [place] [address] BLOOD CULTUREon 03-27-2024 Bacteria identified Cx Nom (Bld) No growth at 5 days Normal [facility] Comment on above: Performed By: #### L [id number] ####[facility] (BEAKER)[address] [place] [address] Order Comment: From a different site than #1. CALCIUM, IONIZEDon CALCIUM IONIZED (MMOL/L) IN BLOOD 1.24 mmol/L Normal 1.15-1.33 [facility] Comment on above: Performed By: #### C ALCIUM, IONIZED ####[facility] [id number] [place] [address] [place] CALCIUM IONIZED (MMOL/L) IN BLOOD 1.21 mmol/L Normal 1.15-1.33 [facility] Comment on above: Performed By: #### C ALCIUM, IONIZED ####[facility] [id number] [place] [address] [facility] CBC WITH AUTO DIFFERENTIALon 03-27-2024 Basophils (Bld) [#/Vol] 0.04 10*3/uL Normal 0.00-0.20 [facility] Comment on above: Performed By: #### L [id number] ####[facility] (BEAKER)[address] [place] [address] Basophils/100 WBC (Bld) 0.2 % Normal 0.0-1.0 [facility] Comment on above: Performed By: #### L [id number] ####[facility] (BEAKER)[address] [place] [address] Eosinophils (Bld) [#/Vol] 0.02 10*3/uL Normal 0.00-0.50 [facility] Comment on above: Performed By: #### L [id number] ####[facility] (BEAKER)[address] [place] [address] Eosinophils/100 WBC (Bld) 0.1 % Normal 0.0-6.0 [facility] Comment on above: Performed By: #### L [id number] ####[facility] (BEAKER)[address] [place] [address] Erythrocyte distribution width (RBC) [Ratio] 15.1 % High 11.5-15.0 [facility] Comment on above: Performed By: #### L [id number] ####[facility] (BEAKER)[address] [place] [address] ERYTHROCYTE MEAN CORPUSCULAR HEMOGLOBIN CONCENTRATION (G/DL) BY AUTOMATED 30.1 g/dL Low 32.0-35.0 [facility] Comment on above: Performed By: #### L [id number] ####[facility] (BEAKER)[address] [place] [address] Hematocrit (Bld) [Volume fraction] 28.2 % Low 36.0-48.0 [facility] Comment on above: Performed By: #### L [id number] ####[facility] (BEAKER)[address] [place] [address] Hemoglobin (Bld) [Mass/Vol] 8.5 g/dL Low 12.0-15.0 [facility] Comment on above: Performed By: #### L [id number] ####[facility] (BEAKER)[address] [place] [address] Immature granulocytes (Bld) [#/Vol] 0.16 10*3/uL Normal 0.00-0.20 [facility] Comment on above: Performed By: #### L [id number] ####[facility] (BEAKER)[address] [place] [address] Immature granulocytes/100 WBC (Bld) 0.8 % Normal 0.0-1.0 [facility] Comment on above: Performed By: #### L [id number] ####[facility] (BEAKER)[address] [place] [address] Lymphocytes (Bld) [#/Vol] 0.37 10*3/uL Low 1.20-4.00 [facility] Comment on above: Performed By: #### L [id number] ####[facility] (BEAKER)[address] [place] [address] Lymphocytes/100 WBC (Bld) 1.9 % Low 20.0-45.0 [facility] Comment on above: Performed By: #### L [id number] ####[facility] (BEAKER)[address] [place] [address] MCH (RBC) [Entitic mass] 29.4 pg Normal 27.0-33.0 [facility] Comment on above: Performed By: #### L [id number] ####[facility] (BEAKER)[address] [place] [address] MCV (RBC) [Entitic vol] 97.6 fL Normal 82.0-98.0 [facility] Comment on above: Performed By: #### L [id number] ####[facility] [place] [address] Monocytes (Bld) [#/Vol] 0.31 10*3/uL Normal 0.10-1.00 [facility] Comment on above: Performed By: #### L [id number] ####[facility] ([facility])[address] [address] Monocytes/100 WBC (Bld) 1.6 % Low 5.0-12.0 [facility] Comment on above: Performed By: #### L [id number] ####[facility] ([facility])[address], [place] [address] Neutrophils (Bld) [#/Vol] 18.90 10*3/uL High 1.60-7.60 [facility] Comment on above: Performed By: #### L [id number] ####[facility] ([facility])[address] [address] Neutrophils/100 WBC (Bld) 95.4 % High 40.0-72.0 [facility] Comment on above: Performed By: #### L [id number] ####[facility] ([facility])[address] [address] NRBC (PER 100 WBCS) BY AUTOMATED COUNT 0.0 % Normal 0 [facility] Comment on above: Performed By: #### L [id number] ####[facility] ([facility])[address] [place] [address] PLATELETS (10*3/UL) IN BLOOD AUTOMATED COUNT 399 10*3/uL Normal 150-400 [facility] Comment on above: Performed By: #### L [id number] ####[facility] [address] RBC (Bld) [#/Vol] 2.89 10*6/uL Low 3.80-5.00 [facility] Comment on above: Performed By: #### L [id number] ####[facility] [place] [address] WBC (Bld) [#/Vol] 19.80 10*3/uL High 4.00-10.60 [facility] Comment on above: Performed By: #### L [id number] ####[facility] (BEAKER)[address] [place] [address] COMPREHENSIVE METABOLIC PANE Flash 03-27-2024 Albumin [Mass/Vol] 3.2 g/dL Low 3.5-5.7 [facility] Comment on above: Performed By: #### L [id number] ####[facility] [place] [address] ALP [Catalytic activity/Vol] 43 U/L Normal 34-104 [facility] Comment on above: Performed By: #### L [id number] ####[facility] [place] [address] ALT [Catalytic activity/Vol] 11 U/L Normal 7-52 [facility] Comment on above: Performed By: #### L [id number] ####[facility] [place] [address] Anion gap [Moles/Vol] 10 mmol/L Normal 7-20 [facility] Comment on above: Performed By: #### L [id number] ####[facility] (BEAKER)[address] [place] [address] AST [Catalytic activity/Vol] 17 U/L Normal 13-39 [facility] Comment on above: Performed By: #### L [id number] ####[facility] (BEAKER)[address] [place] [address] Bilirubin [Mass/Vol] 0.4 mg/dL Normal 0.3-1.0 [facility] Comment on above: Performed By: #### L [id number] ####[facility] (BEAKER)[address] [place] [address] Calcium [Mass/Vol] 8.1 mg/dL Low 8.6-10.3 [facility] Comment on above: Performed By: #### L [id number] ####[facility] ([facility])[address] [place] [address] Chloride [Moles/Vol] 104 mmol/L Normal 98-107 [facility] Comment on above: Performed By: #### L [id number] ####[facility] ([facility])[address] [place] [address] CO2 [Moles/Vol] 26 mmol/L Normal 21-31 [facility] Comment on above: Performed By: #### L [id number] ####[facility] ([facility])[address] [place] [address] Creatinine [Mass/Vol] 0.54 mg/dL Low 0.60-1.20 [facility] Comment on above: Performed By: #### L [id number] ####[facility] ([facility])[address] [place] [address] GLOMERULAR FILTRATION RATE ML/MIN/1.73 SQ M.PREDICTED 102.1 mL/min/1.73m*2 Normal >60.0 [facility] Comment on above: Result Comment: [facility]???s estimated glomerular filtration rate (eGFR) will [...] of individuals. Performed By: #### L [id number] ####[facility] ([facility])[address] [place] [address] Glucose [Mass/Vol] 176 mg/dL High 70-100 [facility] Comment on above: Performed By: #### L [id number] ####[facility] ([facility])[address] [place] [address] Potassium [Moles/Vol] 4.4 mmol/L Normal 3.5-5.1 [facility] Comment on above: Performed By: #### L [id number] ####[facility] ([facility])[address] [place] [address] Protein [Mass/Vol] 6.5 g/dL Normal 6.0-8.3 [facility] Comment on above: Performed By: #### L [id number] ####[facility] ([facility])[address] [place] [address] Sodium [Moles/Vol] 136 mmol/L Normal 136-145 [facility] Comment on above: Performed By: #### L [id number] ####[facility] ([facility])[address] [place] [address] Urea nitrogen [Mass/Vol] 34 mg/dL High 7-25 [facility] Comment on above: Performed By: #### L [id number] ####[facility] ([facility])[address] [place] [address] UREA NITROGEN/CREATININE (MASS RATIO) IN SER/PLAS 63.0 Normal [facility] Comment on above: Performed By: #### L [id number] ####[facility] ([facility])[address] [place] [address] FUNGAL CULTUREon 03-27-2024 FUNGAL SMEAR No yeast or fungal e lements seen Normal [facility] Comment on above: Performed By: #### L [id number] ####[facility] ([facility])[address] [place] [address] HEMOGLOBIN AND HEMATOCRIT, B LOODon 03-27-2024 Hematocrit (Bld) [Volume fraction] 22.1 % Low 36.0-48.0 [facility] Comment on above: Performed By: #### L [id number] ####[facility] [place] [address] Hemoglobin (Bld) [Mass/Vol] 6.9 g/dL Low 12.0-15.0 [facility] Comment on above: Performed By: #### L [id number] ####[facility] (BEAKER)[address] [place] [address] Hematocrit (Bld) [Volume fraction] 24.1 % Low 36.0-48.0 [facility] Comment on above: Performed By: #### L [id number] ####[facility] (BEAKER)[address] [place] [address] Hemoglobin (Bld) [Mass/Vol] 7.5 g/dL Low 12.0-15.0 [facility] Comment on above: Performed By: #### L [id number] ####[facility] (BEAKER)[address] [place] [address] Hematocrit (Bld) [Volume fraction] 24.4 % Low 36.0-48.0 [facility] Comment on above: Performed By: #### L [id number] ####[facility] (BEAKER)[address] [place] [address] Hemoglobin (Bld) [Mass/Vol] 7.6 g/dL Low 12.0-15.0 [facility] Comment on above: Performed By: #### L [id number] ####[facility] (BEAKER)[address] [place] [address] Hematocrit (Bld) [Volume fraction] 25.4 % Low 36.0-48.0 [facility] Comment on above: Performed By: #### L [id number] ####[facility] (BEAKER)[address] [place] [address] Hemoglobin (Bld) [Mass/Vol] 8.0 g/dL Low 12.0-15.0 [facility] Comment on above: Performed By: #### L [id number] ####[facility] (BEAKER)[address] [place] [address] HPon 03-27-2024 HP Normal [facility] LACTIC ACID WITH 4 HOUR REFL EXon 03-27-2024 LACTATE (MMOL/L) IN SER/PLAS 0.7 mmol/L Normal 0.5-2.2 [facility] Comment on above: Performed By: #### L [id number] ####[facility] ([facility])[address] [place] [address] LACTATE (MMOL/L) IN SER/PLAS 1.3 mmol/L Normal 0.5-2.2 [facility] Comment on above: Performed By: #### L [id number] ####[facility] ([facility])[address] [place] [address] MAGNESIUMon 03-27-2024 Magnesium [Mass/Vol] 1.8 mg/dL Low 1.9-2.7 [facility] Comment on above: Performed By: #### L [id number] ####[facility] ([facility])[address] [place] [address] PHOSPHORUSon 03-27-2024 Magnesium [Mass/Vol] 4.0 mg/dL Normal 2.5-5.0 [facility] Comment on above: Performed By: #### L [id number] ####[facility] ([facility])[address] [place] [address] POTASSIUM, WHOLE BLOODon Potassium [Moles/Vol] 4.1 mmol/L Normal 3.5-5.1 [facility] Comment on above: Performed By: #### P OTASSIUM, WHOLE BLOOD ####[facility] [id number] [place] [address] [facility] Potassium [Moles/Vol] 4.9 mmol/L Normal 3.5-5.1 [facility] Comment on above: Performed By: #### P OTASSIUM, WHOLE BLOOD ####[facility] [id number] [place] [address] [facility] PROCALCITONIN TESTon 024 PROCALCITONIN IN BLOOD 0.08 ng/mL Normal 0.00-0.10 [facility] Comment on above: Result Comment: Rebeca tor triglycerides while patient is on propofol Performed By: #### L [id number] ####[facility] (BEAKER)[address] [place] [address] PROTIME-INRon 03-27-2024 INR IN PPP BY COAGULATION ASSAY 1.16 High 0.90-1.10 [facility] Comment on above: Result Comment: [facility] P RECOMMENDED INR FOR WARFARIN THERAPY CONDITION INRPROPHYLAXIS OF VENOUS THROMBOSIS 2-3(HIGH-RISK SURGERY)TREATMENT OF VENOUS THROMBOSIS 2-3TREATMENT OF PULMONARY EMBOLISM 2-3PREVENTION OF SYSTEMIC EMBOLISM: 2-3 ACUTE MYOCARDIAL INFARCTION TISSUE HEART VALVES VALVULAR HEART DISEASE ATRIAL FIBRILLATION RECURRENT SYSTEMIC EMBOLISMMECHANICAL HEART VALVE 2.5-3.5 FROM: ORAL ANTICOAGULANTS. MECHANISM OF ACTION, CLINICAL EFFECTIVENESS, AND OPTIMAL THERAPEUTIC RANGE. CHEST 1995;108:231S-246S. Performed By: #### L [id number] ####[facility] (BEAKER)[address] [place] [address] PROTHROMBIN TIME (PT) IN PPP BY COAGULATION ASSAY 14.8 Seconds Normal 12.3-14.8 [facility] Comment on above: Performed By: #### L [id number] ####[facility] (BEAKER)[address] [place] [address] INR IN PPP BY COAGULATION ASSAY 1.41 High 0.90-1.10 [facility] Comment on above: Result Comment: [facility] P RECOMMENDED INR FOR WARFARIN THERAPY CONDITION INRPROPHYLAXIS OF VENOUS THROMBOSIS 2-3(HIGH-RISK SURGERY)TREATMENT OF VENOUS THROMBOSIS 2-3TREATMENT OF PULMONARY EMBOLISM 2-3PREVENTION OF SYSTEMIC EMBOLISM: 2-3 ACUTE MYOCARDIAL INFARCTION TISSUE HEART VALVES VALVULAR HEART DISEASE ATRIAL FIBRILLATION RECURRENT SYSTEMIC EMBOLISMMECHANICAL HEART VALVE 2.5-3.5 FROM: ORAL ANTICOAGULANTS. MECHANISM OF ACTION, CLINICAL EFFECTIVENESS, AND OPTIMAL THERAPEUTIC RANGE. CHEST 1995;108:231S-246S. Performed By: #### L [id number] ####[facility] ([facility])[address] [place] [address] PROTHROMBIN TIME (PT) IN PPP BY COAGULATION ASSAY 17.1 Seconds High 12.3-14.8 [facility] Comment on above: Performed By: #### L [id number] ####[facility] ([facility])[address] [place] [address] RESPIRATORY CULTUREon 2023 Bacteria identified Cx Nom (Unsp spec) 1,000 CFU/mL Colonies Consistent with Upper Respiratory Li Normal [facility] Comment on above: Performed By: #### L [id number] ####[facility] ([facility])[address] [place] [address] GRAM STAIN RESULT Normal [facility] Comment on above: Result Comment: Few Polymorphonuclear leukocytesNo organisms seen Performed By: #### L [id number] ####[facility] ([facility])[address] [place] [address] SODIUM, WHOLE BLOODon 2023 SODIUM, WHOLE BLOOD 138 Normal 136-145 Un[facility] Comment on above: Performed By: #### S ODIUM, WHOLE BLOOD ####[facility] [id number] [place] [address] [place] SODIUM, WHOLE BLOOD 137 Normal 136-145 Un[facility] Comment on above: Performed By: #### S ODIUM, WHOLE BLOOD ####[facility] [id number] [place] [address] [place] TRIGLYCERIDESon 03-27-2024 FASTING? unknown Normal [facility] Comment on above: Order Comment: Monit or triglycerides while patient is on propofol. Consult Nutrition if greater than 500 mg/dL. Performed By: #### L [id number] ####[facility] ([facility])[address] [place] [address] Magnesium [Mass/Vol] 50 mg/dL Normal 40-149 [facility] Comment on above: Order Comment: Monit or triglycerides while patient is on propofol. Consult Nutrition if greater than 500 mg/dL. Result Comment: TRIG LYCERIDE REFERENCE RANGE:20 YEARS AND OLDER CARDIOVASCULAR RISKLESS THAN 150 mg/dL LOW [id number] TO 199 mg/dL BORDERLINE [id number] mg/dL AND GREATER HIGH RISK Performed By: #### L [id number] ####[facility] ([facility])[address] [place] [address] TROPONIN Ion 03-27-2024 Troponin I.cardiac [Mass/Vol] 0.02 ng/mL Normal 0.00-0.04 [facility] Comment on above: Performed By: #### L [id number] ####[facility] ([facility])[address] [place] [address] TYPE AND SCREENon 03-27-2024 AB SCREEN Negative Normal [facility] Comment on above: Performed By: #### L [id number] ####[facility], ABO group Nom (Bld) A Normal [facility] Comment on above: Performed By: #### L [id number] ####[facility], RH TYPE IN BLOOD Negative Normal [facility] Comment on above: Performed By: #### L [id number] ####[facility], VENOUS BLOOD GAS WITH IONIZE D CALCIUMon 03-27-2024 Base excess Calc (BldV) [Moles/Vol] 2.1 mmol/L Normal [facility] Comment on above: Performed By: #### L [id number] ####[facility] [id number] [place] [address] [facility] CALCIUM IONIZED (MMOL/L) IN BLOOD 1.21 mmol/L Normal 1.15-1.33 [facility] Comment on above: Performed By: #### L [id number] ####[facility] [id number] [place] [address] [facility] CO2 (BldV) [Partial pressure] 61 mm[Hg] High 40-50 [facility] Comment on above: Performed By: #### L [id number] ####[facility] [id number] [place] [address] [facility] HCO3 (Bld) [Moles/Vol] 29.3 mmol/L Normal [facility] Comment on above: Performed By: #### L [id number] ####[facility] [id number] [place] [address] [facility] Oxygen (BldV) [Partial pressure] 55 mm[Hg] High 35-45 [facility] Comment on above: Performed By: #### L [id number] ####[facility] [id number] [place] [address] [facility] OXYGEN SATURATION (%) IN VENOUS BLOOD 83.8 % High 65.0-75.0 [facility] Comment on above: Performed By: #### L [id number] ####[facility] [id number] [place] [address] [facility] PH OF VENOUS BLOOD 7.29 Low 7.31-7.41 [facility] Comment on above: Performed By: #### L [id number] ####[facility] [id number] [place] [address] [facility] 30on 03-26-2024 30 Normal [facility] ANTI-XA (HEPARIN LEVEL)on HEPARIN UNFRACTIONATED (U/ML) IN PPP BY CHROMOGENIC METHOD >1.00 Critically high 0.3-0.7 [facility] Comment on above: Order Comment: Check anti-Xa level every 6 hours while on heparin infusion, or per protocol. Result Comment: [place] roxaban and Apixaban will interfere with the anti Xa assay used to monitor UFH and LMWH. Performed By: #### L [id number] ####[facility] ([facility])[address] [place] [address] COMPREHENSIVE METABOLIC PANE Flash 03-26-2024 Albumin [Mass/Vol] 3.4 g/dL Low 3.5-5.7 [facility] Comment on above: Performed By: #### L [id number] ####[facility] ([facility])[address] [place] [address] ALP [Catalytic activity/Vol] 39 U/L Normal 34-104 [facility] Comment on above: Performed By: #### L [id number] ####[facility] ([facility])[address] [place] [address] ALT [Catalytic activity/Vol] 10 U/L Normal 7-52 [facility] Comment on above: Performed By: #### L [id number] ####[facility] ([facility])[address] [place] [address] Anion gap [Moles/Vol] 11 mmol/L Normal 7-20 [facility] Comment on above: Performed By: #### L [id number] ####[facility] ([facility])[address] [place] [address] AST [Catalytic activity/Vol] 19 U/L Normal 13-39 [facility] Comment on above: Performed By: #### L [id number] ####[facility] ([facility])[address] [place] [address] Bilirubin [Mass/Vol] 0.4 mg/dL Normal 0.3-1.0 [facility] Comment on above: Performed By: #### L [id number] ####[facility] ([facility])[address] [place] [address] Calcium [Mass/Vol] 9.0 mg/dL Normal 8.6-10.3 [facility] Comment on above: Performed By: #### L [id number] ####[facility] ([facility])[address] [place] [address] Chloride [Moles/Vol] 101 mmol/L Normal 98-107 [facility] Comment on above: Performed By: #### L [id number] ####[facility] ([facility])[address] [place] [address] CO2 [Moles/Vol] 28 mmol/L Normal 21-31 [facility] Comment on above: Performed By: #### L [id number] ####[facility] ([facility])[address] [place] [address] Creatinine [Mass/Vol] 0.46 mg/dL Low 0.60-1.20 [facility] Comment on above: Performed By: #### L [id number] ####[facility] ([facility])[address] [place] [address] GLOMERULAR FILTRATION RATE ML/MIN/1.73 SQ M.PREDICTED 106.1 mL/min/1.73m*2 Normal >60.0 [facility] Comment on above: Result Comment: The [facility]???s estimated glomerular filtration rate (eGFR) will [...] of individuals. Performed By: #### L [id number] ####[facility] ([facility])[address] [place] [address] Glucose [Mass/Vol] 115 mg/dL High 70-100 [facility] Comment on above: Performed By: #### L [id number] ####[facility] ([facility])[address] [place] [address] Potassium [Moles/Vol] 4.0 mmol/L Normal 3.5-5.1 [facility] Comment on above: Performed By: #### L [id number] ####[facility] [place] [address] Protein [Mass/Vol] 6.9 g/dL Normal 6.0-8.3 [facility] Comment on above: Performed By: #### L [id number] ####[facility] [place] [address] Sodium [Moles/Vol] 136 mmol/L Normal 136-145 [facility] Comment on above: Performed By: #### L [id number] ####[facility] ([facility])[address] [place] [address] Urea nitrogen [Mass/Vol] 17 mg/dL Normal 7-25 [facility] Comment on above: Performed By: #### L [id number] ####[facility] ([facility])[address] [place] [address] UREA NITROGEN/CREATININE (MASS RATIO) IN SER/PLAS 37.0 [facility] Comment on above: Performed By: #### L [id number] ####[facility] ([facility])[address] [place] [address] DSon 03-26-2024 DS [facility] NURSNOTEon 03-26-2024 NURSNOTE [facility] NURSNOTE Operational Risk Manager received a ca ll from lab for a critical heparin greater than 1.0 and PTT of 32. The patient is no longer on the heparin drip. [facility] 30on 03-25-2024 30 [facility] 30 [facility] ANTI-XA (HEPARIN LEVEL)on HEPARIN UNFRACTIONATED (U/ML) IN PPP BY CHROMOGENIC METHOD 0.24 IU/mL Low 0.3-0.7 [facility] Comment on above: Order Comment: Check anti-Xa level every 6 hours while on heparin infusion, or per protocol. Result Comment: [place] roxaban and Apixaban will interfere with the anti Xa assay used to monitor UFH and LMWH. Performed By: #### L [id number] ####[facility] (BEAKER)[address] [place] [address] HEPARIN UNFRACTIONATED (U/ML) IN PPP BY CHROMOGENIC METHOD 0.10 IU/mL Invalid Interpretation Code 0.3-0.7 [facility] Comment on above: Order Comment: Check anti-Xa level every 6 hours while on heparin infusion, or per protocol. Result Comment: Patsy roxaban and Apixaban will interfere with the anti Xa assay used to monitor UFH and LMWH. Performed By: #### L [id number] ####[facility] (BEAKER)[address] [place] [address] BASIC METABOLIC PANELon 09-0 Anion gap [Moles/Vol] 13 mmol/L Normal 7-20 [facility] Comment on above: Performed By: #### L [id number] ####[facility] (BEAKER)[address] [place] [address] Calcium [Mass/Vol] 9.4 mg/dL Normal 8.6-10.3 [facility] Comment on above: Performed By: #### L [id number] ####[facility] (BEAKER)[address] [place] [address] Chloride [Moles/Vol] 100 mmol/L Normal 98-107 [facility] Comment on above: Performed By: #### L [id number] ####[facility] (BEAKER)[address] [place] [address] CO2 [Moles/Vol] 27 mmol/L Normal 21-31 [facility] Comment on above: Performed By: #### L [id number] ####[facility] (BEAKER)[address] [place] [address] Creatinine [Mass/Vol] 0.52 mg/dL Low 0.60-1.20 [facility] Comment on above: Performed By: #### L [id number] ####[facility] (BEAKER)[address] [place] [address] GLOMERULAR FILTRATION RATE ML/MIN/1.73 SQ M.PREDICTED 103.0 mL/min/1.73m*2 Normal >60.0 [facility] Comment on above: Result Comment: The [facility]???s estimated glomerular filtration rate (eGFR) will [...] of individuals. Performed By: #### L [id number] ####[facility] ([facility])[address] [place] [address] Glucose [Mass/Vol] 109 mg/dL High 70-100 [facility] Comment on above: Performed By: #### L [id number] ####[facility] ([facility])[address] [place] [address] Potassium [Moles/Vol] 4.6 mmol/L Normal 3.5-5.1 [facility] Comment on above: Performed By: #### L [id number] ####[facility] [place] [address] Sodium [Moles/Vol] 135 mmol/L Low 136-145 [facility] Comment on above: Performed By: #### L [id number] ####[facility] [place] [address] Urea nitrogen [Mass/Vol] 22 mg/dL Normal 7-25 [facility] Comment on above: Performed By: #### L [id number] ####[facility] [place] [address] UREA NITROGEN/CREATININE (MASS RATIO) IN SER/PLAS 42.3 Normal [facility] Comment on above: Performed By: #### L [id number] ####[facility] (BEAKER)[address] [place] [address] CBCon 03-25-2024 Erythrocyte distribution width (RBC) [Ratio] 14.6 % Normal 11.5-15.0 [facility] Comment on above: Performed By: #### L [id number] ####[facility] [place] [address] ERYTHROCYTE MEAN CORPUSCULAR HEMOGLOBIN CONCENTRATION (G/DL) BY AUTOMATED 31.3 g/dL Low 32.0-35.0 [facility] Comment on above: Performed By: #### L [id number] ####[facility] [place] [address] Hematocrit (Bld) [Volume fraction] 33.5 % Low 36.0-48.0 [facility] Comment on above: Performed By: #### L [id number] ####[facility] [place] [address] Hemoglobin (Bld) [Mass/Vol] 10.5 g/dL Low 12.0-15.0 [facility] Comment on above: Performed By: #### L [id number] ####[facility] ([facility] [place] [address] MCH (RBC) [Entitic mass] 29.6 pg Normal 27.0-33.0 [facility] Comment on above: Performed By: #### L [id number] ####[facility] (BEAKER)[address] [place] [address] MCV (RBC) [Entitic vol] 94.4 fL Normal 82.0-98.0 [facility] Comment on above: Performed By: #### L [id number] ####[facility] (BEAKER)[address] [place] [address] PLATELETS (10*3/UL) IN BLOOD AUTOMATED COUNT 321 10*3/uL Normal 150-400 [facility] Comment on above: Performed By: #### L [id number] ####[facility] (BEAKER)[address] [place] [address] RBC (Bld) [#/Vol] 3.55 10*6/uL Low 3.80-5.00 [facility] Comment on above: Performed By: #### L [id number] ####[facility] (BEAKER)[address] [place] [address] WBC (Bld) [#/Vol] 8.51 10*3/uL Normal 4.00-10.60 [facility] Comment on above: Performed By: #### L [id number] ####[facility] ([facility] [place] [address] Erythrocyte distribution width (RBC) [Ratio] 14.5 % Normal 11.5-15.0 [facility] Comment on above: Performed By: #### L [id number] ####[facility] ([facility])[address] [place] [address] ERYTHROCYTE MEAN CORPUSCULAR HEMOGLOBIN CONCENTRATION (G/DL) BY AUTOMATED 30.7 g/dL Low 32.0-35.0 [facility] Comment on above: Performed By: #### L [id number] ####[facility] [place] [address] Hematocrit (Bld) [Volume fraction] 28.3 % Low 36.0-48.0 [facility] Comment on above: Performed By: #### L [id number] ####[facility] (BEAKER)[address] [place] [address] Hemoglobin (Bld) [Mass/Vol] 8.7 g/dL Low 12.0-15.0 [facility] Comment on above: Performed By: #### L [id number] ####[facility] (BEAKER)[address] [place] [address] MCH (RBC) [Entitic mass] 28.8 pg Normal 27.0-33.0 [facility] Comment on above: Performed By: #### L [id number] ####[facility] (BEAKER)[address] [place] [address] MCV (RBC) [Entitic vol] 93.7 fL Normal 82.0-98.0 [facility] Comment on above: Performed By: #### L [id number] ####[facility] [place] [address] PLATELETS (10*3/UL) IN BLOOD AUTOMATED COUNT 350 10*3/uL Normal 150-400 [facility] Comment on above: Performed By: #### L [id number] ####[facility] ([facility])[address] [place] [address] RBC (Bld) [#/Vol] 3.02 10*6/uL Low 3.80-5.00 [facility] Comment on above: Performed By: #### L [id number] ####[facility] ([facility])[address] [place] [address] WBC (Bld) [#/Vol] 6.83 10*3/uL Normal 4.00-10.60 [facility] Comment on above: Performed By: #### L [id number] ####[facility] ([facility])[address] [place] [address] COMPREHENSIVE METABOLIC PANE Flash 03-25-2024 Albumin [Mass/Vol] 3.2 g/dL Low 3.5-5.7 [facility] Comment on above: Performed By: #### L [id number] ####[facility] ([facility])[address] [place] [address] ALP [Catalytic activity/Vol] 41 U/L Normal 34-104 [facility] Comment on above: Performed By: #### L [id number] ####[facility] (BEAKER)[address] [place] [address] ALT [Catalytic activity/Vol] 13 U/L Normal 7-52 [facility] Comment on above: Performed By: #### L [id number] ####[facility] (BEAKER)[address] [place] [address] Anion gap [Moles/Vol] 10 mmol/L Normal 7-20 [facility] Comment on above: Performed By: #### L [id number] ####[facility] (BEAKER)[address] [place] [address] AST [Catalytic activity/Vol] 19 U/L Normal 13-39 [facility] Comment on above: Performed By: #### L [id number] ####[facility] (BEAKER)[address] [place] [address] Bilirubin [Mass/Vol] 0.3 mg/dL Normal 0.3-1.0 [facility] Comment on above: Performed By: #### L [id number] ####[facility] (BEAKER)[address] [place] [address] Calcium [Mass/Vol] 8.6 mg/dL Normal 8.6-10.3 [facility] Comment on above: Performed By: #### L [id number] ####[facility] (BEAKER)[address] [place] [address] Chloride [Moles/Vol] 101 mmol/L Normal 98-107 [facility] Comment on above: Performed By: #### L [id number] ####[facility] (BEAKER)[address] [place] [address] CO2 [Moles/Vol] 30 mmol/L Normal 21-31 [facility] Comment on above: Performed By: #### L [id number] ####[facility] (BEAKER)[address] [place] [address] Creatinine [Mass/Vol] 0.49 mg/dL Low 0.60-1.20 [facility] Comment on above: Performed By: #### L [id number] ####[facility] (BEAKER)[address] [place] [address] GLOMERULAR FILTRATION RATE ML/MIN/1.73 SQ M.PREDICTED 104.5 mL/min/1.73m*2 Normal >60.0 [facility] Comment on above: Result Comment: [facility]???s estimated glomerular filtration rate (eGFR) will [...] of individuals. Performed By: #### L [id number] ####[facility] ([facility])[address] [place] [address] Glucose [Mass/Vol] 108 mg/dL High 70-100 [facility] Comment on above: Performed By: #### L [id number] ####[facility] ([facility])[address] [place] [address] Potassium [Moles/Vol] 4.2 mmol/L Normal 3.5-5.1 [facility] Comment on above: Performed By: #### L [id number] ####[facility] ([facility])[address] [place] [address] Protein [Mass/Vol] 6.5 g/dL Normal 6.0-8.3 [facility] Comment on above: Performed By: #### L [id number] ####[facility] ([facility])[address] [place] [address] Sodium [Moles/Vol] 137 mmol/L Normal 136-145 [facility] Comment on above: Performed By: #### L [id number] ####[facility] ([facility])[address] [place] [address] Urea nitrogen [Mass/Vol] 22 mg/dL Normal 7-25 [facility] Comment on above: Performed By: #### L [id number] ####[facility] ([facility])[address] [place] [address] UREA NITROGEN/CREATININE (MASS RATIO) IN SER/PLAS 44.9 Normal [facility] Comment on above: Performed By: #### L [id number] ####[facility] ([facility])[address] [place] [address] IMMUNOFIXATION ELECTROPHORES Monika 03-25-2024 IMMUNOFIXATION ELECTROPHORESIS 1 See attached report Normal [facility] Comment on above: Performed By: #### L [id number] ####[facility] (JACK)[address] [place] [address] Magnesium [Mass/Vol] 1450 mg/dL Normal 591-1540 [facility] Comment on above: Performed By: #### L [id number] ####[facility] ([facility])[address] [place] [address] Magnesium [Mass/Vol] 633 mg/dL High 60-413 [facility] Comment on above: Performed By: #### L [id number] ####[facility] ([facility])[address] [place] [address] Magnesium [Mass/Vol] 116 mg/dL Normal 54-285 [facility] Comment on above: Performed By: #### L [id number] ####[facility] [place] [address] KAPPA / LAMBDA LIGHT CHAINS, FREEon 03-25-2024 IMMUNOGLOBULIN LIGHT CHAINS KAPPA/LAMBDA (MASS RATIO) IN SERUM 1.29 Normal 0.22-1.74 [facility] Comment on above: Result Comment: Test Performed by [employer] [address] [place] [id number] - Released 03/25/2024 18:34 Performed By: #### L [id number] ####I AM AT [id number] [place] [address] IMMUNOGLOBULIN LIGHT CHAINS.KAPPA (MG/DL) IN SERUM 51.3 mg/L High <20.8 [facility] Comment on above: Result Comment: Perf ormed using Diazyme reagent on [employer]. Results obtained with different assay methods cannot be used interchangeably. Performed By: #### L [id number] ####I AM AT [id number] [place] [address] IMMUNOGLOBULIN LIGHT CHAINS.LAMBDA (MG/DL) IN SERUM 39.9 mg/L High 4.2-27.7 [facility] Comment on above: Result Comment: Perf ormed using Diazyme reagent on [employer]. Results obtained with different assay methods cannot be used interchangeably. Performed By: #### L [id number] ####[facility] [id number] [place] [address] MAGNESIUMon 03-25-2024 Magnesium [Mass/Vol] 1.8 mg/dL Low 1.9-2.7 [facility] Comment on above: Performed By: #### L [id number] ####[facility] ([facility])[address] [place] [address] PROTEIN ELECTROPHORESIS, SER UMon 03-25-2024 Protein [Mass/Vol] 7.1 g/dL Normal 6.0-8.3 [facility] Comment on above: Performed By: #### L [id number] ####[facility] ([facility])[address] [place] [address] PROTEIN FRACTION (INTERPRETATION) IN SER/PLAS BY ELECTROPHORESIS See attached report Normal [facility] Comment on above: Performed By: #### L [id number] ####[facility] ([facility])[address] [place] [address] 30on 03-24-2024 30 Normal [facility] APTTon 03-24-2024 ACTIVATED PARTIAL THROMBOPLASTIN TIME IN PPP BY COAGULATION ASSAY 27.4 Seconds Normal 25.0-35.0 [facility] Comment on above: Order Comment: Basel ine aPTT before initiating heparin infusion. Result Comment: Clin ical significance of the APTT is questionable in the presence of heparin. Performed By: #### L [id number] ####[facility] [place] [address] CBC WITH AUTO DIFFERENTIALon 03-24-2024 Basophils (Bld) [#/Vol] 0.04 10*3/uL Normal 0.00-0.20 [facility] Comment on above: Performed By: #### L [id number] ####[facility] ([facility])[address] [place] [address] Basophils/100 WBC (Bld) 0.6 % Normal 0.0-1.0 [facility] Comment on above: Performed By: #### L [id number] ####[facility] (BEAKER)[address] [place] [address] Eosinophils (Bld) [#/Vol] 0.25 10*3/uL Normal 0.00-0.50 [facility] Comment on above: Performed By: #### L [id number] ####[facility] ([facility])[address] [place] [address] Eosinophils/100 WBC (Bld) 3.5 % Normal 0.0-6.0 [facility] Comment on above: Performed By: #### L [id number] ####[facility] ([facility])[address] [place] [address] Erythrocyte distribution width (RBC) [Ratio] 14.5 % Normal 11.5-15.0 [facility] Comment on above: Performed By: #### L [id number] ####[facility] ([facility])[address] [place] [address] ERYTHROCYTE MEAN CORPUSCULAR HEMOGLOBIN CONCENTRATION (G/DL) BY AUTOMATED 30.7 g/dL Low 32.0-35.0 [facility] Comment on above: Performed By: #### L [id number] ####[facility] [place] [address] Hematocrit (Bld) [Volume fraction] 27.4 % Low 36.0-48.0 [facility] Comment on above: Performed By: #### L [id number] ####[facility] (BEAKER)[address] [place] [address] Hemoglobin (Bld) [Mass/Vol] 8.4 g/dL Low 12.0-15.0 [facility] Comment on above: Performed By: #### L [id number] ####[facility] ([facility]ER)[address] [place] [address] Immature granulocytes (Bld) [#/Vol] 0.04 10*3/uL Normal 0.00-0.20 [facility] Comment on above: Performed By: #### L [id number] ####[facility] ([facility]ER)[address] [place] [address] Immature granulocytes/100 WBC (Bld) 0.6 % Normal 0.0-1.0 [facility] Comment on above: Performed By: #### L [id number] ####[facility] ([facility]ER)[address] [place] [address] Lymphocytes (Bld) [#/Vol] 0.93 10*3/uL Low 1.20-4.00 [facility] Comment on above: Performed By: #### L [id number] ####[facility] ([facility]ER)[address] [place] [address] Lymphocytes/100 WBC (Bld) 12.9 % Low 20.0-45.0 [facility] Comment on above: Performed By: #### L [id number] ####[facility] ([facility]ER)[address] [place] [address] MCH (RBC) [Entitic mass] 29.5 pg Normal 27.0-33.0 [facility] Comment on above: Performed By: #### L [id number] ####[facility] ([facility]ER)[address] [place] [address] MCV (RBC) [Entitic vol] 96.1 fL Normal 82.0-98.0 [facility] Comment on above: Performed By: #### L [id number] ####[facility] ([facility]ER)[address] [place] [address] Monocytes (Bld) [#/Vol] 0.57 10*3/uL Normal 0.10-1.00 [facility] Comment on above: Performed By: #### L [id number] ####[facility] ([facility])[address] [place] [address] Monocytes/100 WBC (Bld) 7.9 % Normal 5.0-12.0 [facility] Comment on above: Performed By: #### L [id number] ####[facility] ([facility]ER)[address] [place] [address] Neutrophils (Bld) [#/Vol] 5.39 10*3/uL Normal 1.60-7.60 [facility] Comment on above: Performed By: #### L [id number] ####[facility] ([facility]ER)[address] [place] [address] Neutrophils/100 WBC (Bld) 74.5 % High 40.0-72.0 [facility] Comment on above: Performed By: #### L [id number] ####[facility] [place] [address] NRBC (PER 100 WBCS) BY AUTOMATED COUNT 0.0 % Normal 0 [facility] Comment on above: Performed By: #### L [id number] ####[facility] [place] [address] PLATELETS (10*3/UL) IN BLOOD AUTOMATED COUNT 303 10*3/uL Normal 150-400 [facility] Comment on above: Performed By: #### L [id number] ####[facility] [place] [address] RBC (Bld) [#/Vol] 2.85 10*6/uL Low 3.80-5.00 [facility] Comment on above: Performed By: #### L [id number] ####[facility] ([facility]ER)[address] [place] [address] WBC (Bld) [#/Vol] 7.22 10*3/uL Normal 4.00-10.60 [facility] Comment on above: Performed By: #### L [id number] ####[facility] ([facility]ER)[address] [place] [address] COMPREHENSIVE METABOLIC PANE Flash 03-24-2024 Albumin [Mass/Vol] 3.0 g/dL Low 3.5-5.7 [facility] Comment on above: Performed By: #### L [id number] ####[facility] ([facility]ER)[address] [place] [address] ALP [Catalytic activity/Vol] 39 U/L Normal 34-104 [facility] Comment on above: Performed By: #### L [id number] ####[facility] [place] [address] ALT [Catalytic activity/Vol] 13 U/L Normal 7-52 [facility] Comment on above: Performed By: #### L [id number] ####[facility] ([facility])[address] [place] [address] Anion gap [Moles/Vol] 8 mmol/L Normal 7-20 [facility] Comment on above: Performed By: #### L [id number] ####[facility] ([facility])[address] [place] [address] AST [Catalytic activity/Vol] 20 U/L Normal 13-39 [facility] Comment on above: Performed By: #### L [id number] ####[facility] ([facility])[address] [place] [address] Bilirubin [Mass/Vol] 0.3 mg/dL Normal 0.3-1.0 [facility] Comment on above: Performed By: #### L [id number] ####[facility] ([facility])[address] [place] [address] Calcium [Mass/Vol] 8.6 mg/dL Normal 8.6-10.3 [facility] Comment on above: Performed By: #### L [id number] ####[facility] ([facility])[address] [place] [address] Chloride [Moles/Vol] 106 mmol/L Normal 98-107 [facility] Comment on above: Performed By: #### L [id number] ####[facility] [place] [address] CO2 [Moles/Vol] 30 mmol/L Normal 21-31 [facility] Comment on above: Performed By: #### L [id number] ####[facility] [place] [address] Creatinine [Mass/Vol] 0.42 mg/dL Low 0.60-1.20 [facility] Comment on above: Performed By: #### L [id number] ####[facility] [place] [address] GLOMERULAR FILTRATION RATE ML/MIN/1.73 SQ M.PREDICTED 108.5 mL/min/1.73m*2 Normal >60.0 [facility] Comment on above: Result Comment: [facility]???s estimated glomerular filtration rate (eGFR) will [...] of individuals. Performed By: #### L [id number] ####[facility] [place] [address] Glucose [Mass/Vol] 102 mg/dL High 70-100 [facility] Comment on above: Performed By: #### L [id number] ####[facility] [place] [address] Potassium [Moles/Vol] 3.9 mmol/L Normal 3.5-5.1 [facility] Comment on above: Performed By: #### L [id number] ####[facility] ([facility]ER)[address] [place] [address] Protein [Mass/Vol] 6.2 g/dL Normal 6.0-8.3 [facility] Comment on above: Performed By: #### L [id number] ####[facility] ([facility]ER)[address] [place] [address] Sodium [Moles/Vol] 140 mmol/L Normal 136-145 [facility] Comment on above: Performed By: #### L [id number] ####[facility] ([facility]ER)[address] [place] [address] Urea nitrogen [Mass/Vol] 28 mg/dL High 7-25 [facility] Comment on above: Performed By: #### L [id number] ####[facility] [place] [address] UREA NITROGEN/CREATININE (MASS RATIO) IN SER/PLAS 66.7 Normal [facility] Comment on above: Performed By: #### L [id number] ####[facility] ([facility])[address] [place] [address] PLATELET COUNTon 03-24-2024 PLATELETS (10*3/UL) IN BLOOD AUTOMATED COUNT 345 10*3/uL Normal 150-400 [facility] Comment on above: Performed By: #### L [id number] ####[facility] ([facility])[address] [address] CBCon 03-23-2024 Erythrocyte distribution width (RBC) [Ratio] 14.1 % Normal 11.5-15.0 [facility] Comment on above: Performed By: #### L [id number] ####[facility] ([facility])[address], [place] [address] ERYTHROCYTE MEAN CORPUSCULAR HEMOGLOBIN CONCENTRATION (G/DL) BY AUTOMATED 30.9 g/dL Low 32.0-35.0 [facility] Comment on above: Performed By: #### L [id number] ####[facility], [place] [address] Hematocrit (Bld) [Volume fraction] 31.4 % Low 36.0-48.0 [facility] Comment on above: Performed By: #### L [id number] ####[facility], [place] [address] Hemoglobin (Bld) [Mass/Vol] 9.7 g/dL Low 12.0-15.0 [facility] Comment on above: Performed By: #### L [id number] ####[facility] ([facility])[address] [place] [address] MCH (RBC) [Entitic mass] 29.4 pg Normal 27.0-33.0 [facility] Comment on above: Performed By: #### L [id number] ####[facility] ([facility])[address] [place] [address] MCV (RBC) [Entitic vol] 95.2 fL Normal 82.0-98.0 [facility] Comment on above: Performed By: #### L [id number] ####[facility] ([facility])[address] [place] [address] PLATELETS (10*3/UL) IN BLOOD AUTOMATED COUNT 266 10*3/uL Normal 150-400 [facility] Comment on above: Performed By: #### L [id number] ####[facility] ([facility])[address] [place] [address] RBC (Bld) [#/Vol] 3.30 10*6/uL Low 3.80-5.00 [facility] Comment on above: Performed By: #### L [id number] ####[facility] ([facility])[address] [place] [address] WBC (Bld) [#/Vol] 5.54 10*3/uL Normal 4.00-10.60 [facility] Comment on above: Performed By: #### L [id number] ####[facility] ([facility])[address] [place] [address] COMPREHENSIVE METABOLIC PANE Flash 03-23-2024 Albumin [Mass/Vol] 3.0 g/dL Low 3.5-5.7 [facility] Comment on above: Performed By: #### L [id number] ####[facility] ([facility])[address] [place] [address] ALP [Catalytic activity/Vol] 38 U/L Normal 34-104 [facility] Comment on above: Performed By: #### L [id number] ####[facility] [place] [address] ALT [Catalytic activity/Vol] 11 U/L Normal 7-52 [facility] Comment on above: Performed By: #### L [id number] ####[facility] ([facility])[address] [place] [address] Anion gap [Moles/Vol] 13 mmol/L Normal 7-20 [facility] Comment on above: Performed By: #### L [id number] ####[facility] ([facility])[address] [place] [address] AST [Catalytic activity/Vol] 21 U/L Normal 13-39 [facility] Comment on above: Performed By: #### L [id number] ####[facility] ([facility])[address] [place] [address] Bilirubin [Mass/Vol] 0.3 mg/dL Normal 0.3-1.0 [facility] Comment on above: Performed By: #### L [id number] ####[facility] ([facility])[address] [place] [address] Calcium [Mass/Vol] 8.6 mg/dL Normal 8.6-10.3 [facility] Comment on above: Performed By: #### L [id number] ####[facility] ([facility])[address] [place] [address] Chloride [Moles/Vol] 107 mmol/L Normal 98-107 [facility] Comment on above: Performed By: #### L [id number] ####[facility] [place] [address] CO2 [Moles/Vol] 23 mmol/L Normal 21-31 [facility] Comment on above: Performed By: #### L [id number] ####[facility] ([facility]AKER)[address] [place] [address] Creatinine [Mass/Vol] 0.46 mg/dL Low 0.60-1.20 [facility] Comment on above: Performed By: #### L [id number] ####[facility] ([facility])[address] [place] [address] GLOMERULAR FILTRATION RATE ML/MIN/1.73 SQ M.PREDICTED 106.1 mL/min/1.73m*2 Normal >60.0 [facility] Comment on above: Result Comment: [facility]???s estimated glomerular filtration rate (eGFR) will [...] of individuals. Performed By: #### L [id number] ####[facility] ([facility])[address] [place] [address] Glucose [Mass/Vol] 93 mg/dL Normal 70-100 [facility] Comment on above: Performed By: #### L [id number] ####[facility] ([facility])[address] [place] [address] Potassium [Moles/Vol] 3.8 mmol/L Normal 3.5-5.1 [facility] Comment on above: Performed By: #### L [id number] ####[facility] ([facility])[address] [place] [address] Protein [Mass/Vol] 6.2 g/dL Normal 6.0-8.3 [facility] Comment on above: Performed By: #### L [id number] ####[facility] [place] [address] Sodium [Moles/Vol] 139 mmol/L Normal 136-145 [facility] Comment on above: Performed By: #### L [id number] ####[facility] ([facility]AKER)[address] [place] [address] Urea nitrogen [Mass/Vol] 28 mg/dL High 7-25 [facility] Comment on above: Performed By: #### L [id number] ####[facility] ([facility])[address] [place] [address] UREA NITROGEN/CREATININE (MASS RATIO) IN SER/PLAS 60.9 Normal [facility] Comment on above: Performed By: #### L [id number] ####[facility] ([facility])[address] [place] [address] CONSULTon 03-23-2024 CONSULT Normal [facility] CT ABDOMEN PELVIS W AND WO I V CONTRASTon 03-23-2024 CT ABDOMEN PELVIS W AND WO IV CONTRAST Invalid Interpretation Code [facility] CT CHEST W IV CONTRASTon CT CHEST W IV CONTRAST Invalid Interpretation Code [facility] MAGNESIUMon 03-23-2024 Magnesium [Mass/Vol] 1.7 mg/dL Low 1.9-2.7 [facility] Comment on above: Performed By: #### L [id number] ####[facility] ([facility])[address] [place] [address] PHOSPHORUSon 03-23-2024 Magnesium [Mass/Vol] 3.6 mg/dL Normal 2.5-5.0 [facility] Comment on above: Performed By: #### L [id number] ####[facility] ([facility])[address] [place] [address] VENOUS BLOOD GAS WITH IONIZE D CALCIUMon 03-23-2024 Base excess Calc (BldV) [Moles/Vol] 4.5 mmol/L Normal [facility] Comment on above: Performed By: #### L [id number] ####[facility] [id number] [place] [address] [place] CALCIUM IONIZED (MMOL/L) IN BLOOD 1.18 mmol/L Normal 1.15-1.33 [facility] Comment on above: Performed By: #### L [id number] ####[facility] [id number] [place] [address] [place] CO2 (BldV) [Partial pressure] 39 mm[Hg] Low 40-50 [facility] Comment on above: Performed By: #### L [id number] ####[facility] [id number] [place] [address] [facility] HCO3 (Bld) [Moles/Vol] 28.4 mmol/L Normal [facility] Comment on above: Performed By: #### L [id number] ####[facility] [id number] [place] [address] [facility] Oxygen (BldV) [Partial pressure] 62 mm[Hg] High 35-45 [facility] Comment on above: Performed By: #### L [id number] ####[facility] [id number] [place] [address] [facility] OXYGEN SATURATION (%) IN VENOUS BLOOD 92.7 % High 65.0-75.0 [facility] Comment on above: Performed By: #### L [id number] ####[facility] [id number] [place] [address] [facility] PH OF VENOUS BLOOD 7.47 High 7.31-7.41 [facility] Comment on above: Performed By: #### L [id number] ####[facility] [id number] [place] [address] [facility] 30on 03-22-2024 30 Normal [facility] 30 Normal [facility] BASIC METABOLIC PANELon 090 Anion gap [Moles/Vol] 12 mmol/L Normal 7-20 [facility] Comment on above: Performed By: #### L [id number] ####[facility] ([facility])[address] [facility] [place] [address] Calcium [Mass/Vol] 8.9 mg/dL Normal 8.6-10.3 [facility] Comment on above: Performed By: #### L [id number] ####[facility] ([facility])[address] [facility] [place] [address] Chloride [Moles/Vol] 105 mmol/L Normal 98-107 [facility] Comment on above: Performed By: #### L [id number] ####[facility] [place] [address] CO2 [Moles/Vol] 26 mmol/L Normal 21-31 [facility] Comment on above: Performed By: #### L [id number] ####[facility] [place] [address] Creatinine [Mass/Vol] 0.44 mg/dL Low 0.60-1.20 [facility] Comment on above: Performed By: #### L [id number] ####[facility] ([facility])[address] [place] [address] GLOMERULAR FILTRATION RATE ML/MIN/1.73 SQ M.PREDICTED 107.3 mL/min/1.73m*2 Normal >60.0 [facility] Comment on above: Result Comment: [facility]???s estimated glomerular filtration rate (eGFR) will [...] of individuals. Performed By: #### L [id number] ####[facility] ([facility])[address] [place] [address] Glucose [Mass/Vol] 92 mg/dL Normal 70-100 [facility] Comment on above: Performed By: #### L [id number] ####[facility] [place] [address] Potassium [Moles/Vol] 3.7 mmol/L Normal 3.5-5.1 [facility] Comment on above: Performed By: #### L [id number] ####[facility] [place] [address] Sodium [Moles/Vol] 139 mmol/L Normal 136-145 [facility] Comment on above: Performed By: #### L [id number] ####[facility] [place] [address] Urea nitrogen [Mass/Vol] 26 mg/dL High 7-25 [facility] Comment on above: Performed By: #### L [id number] ####[facility] [place] [address] UREA NITROGEN/CREATININE (MASS RATIO) IN SER/PLAS 59.1 Normal [facility] Comment on above: Performed By: #### L [id number] ####[facility] [place] [address] CBCon 03-22-2024 Erythrocyte distribution width (RBC) [Ratio] 13.9 % Normal 11.5-15.0 [facility] Comment on above: Performed By: #### L [id number] ####[facility] ([facility])[address] [place] [address] ERYTHROCYTE MEAN CORPUSCULAR HEMOGLOBIN CONCENTRATION (G/DL) BY AUTOMATED 31.4 g/dL Low 32.0-35.0 [facility] Comment on above: Performed By: #### L [id number] ####[facility] ([facility])[address] [place] [address] Hematocrit (Bld) [Volume fraction] 32.8 % Low 36.0-48.0 [facility] Comment on above: Performed By: #### L [id number] ####[facility] [place] [address] Hemoglobin (Bld) [Mass/Vol] 10.3 g/dL Low 12.0-15.0 [facility] Comment on above: Performed By: #### L [id number] ####[facility] [place] [address] MCH (RBC) [Entitic mass] 28.9 pg Normal 27.0-33.0 [facility] Comment on above: Performed By: #### L [id number] ####[facility] [place] [address] MCV (RBC) [Entitic vol] 91.9 fL Normal 82.0-98.0 [facility] Comment on above: Performed By: #### L [id number] ####[facility] [address] PLATELETS (10*3/UL) IN BLOOD AUTOMATED COUNT 313 10*3/uL Normal 150-400 [facility] Comment on above: Performed By: #### L [id number] ####[facility] ([facility])[address] [place] [address] RBC (Bld) [#/Vol] 3.57 10*6/uL Low 3.80-5.00 [facility] Comment on above: Performed By: #### L [id number] ####[facility] ([facility])[address] [place] [address] WBC (Bld) [#/Vol] 5.94 10*3/uL Normal 4.00-10.60 [facility] Comment on above: Performed By: #### L [id number] ####[facility] ([facility])[address] [address] CONSULTon 03-22-2024 CONSULT Normal [facility] LACTIC ACID WITH 4 HOUR REFL EXon 03-22-2024 LACTATE (MMOL/L) IN SER/PLAS 1.3 mmol/L Normal 0.5-2.2 [facility] Comment on above: Result Comment: M-CH EMISTRY SPECIMEN MODERATELY HEMOLYZED RESULTS MAY NOT BE ACCURATE Performed By: #### L [id number] ####[facility] ([facility])[address] [place] [address] MAGNESIUMon 03-22-2024 Magnesium [Mass/Vol] 1.9 mg/dL Normal 1.9-2.7 [facility] Comment on above: Performed By: #### L [id number] ####[facility] [place] [address] MR CERVICAL SPINE W AND WO C ONTRASTon 03-22-2024 MR CERVICAL SPINE W AND WO CONTRAST Invalid Interpretation Code [facility] MR LUMBAR SPINE W AND WO CON TRASTon 03-22-2024 MR LUMBAR SPINE W AND WO CONTRAST Invalid Interpretation Code [facility] MR THORACIC SPINE W AND WO C ONTRASTon 03-22-2024 MR THORACIC SPINE W AND WO CONTRAST Invalid Interpretation Code [facility] PHOSPHORUSon 03-22-2024 Magnesium [Mass/Vol] 3.5 mg/dL Normal 2.5-5.0 [facility] Comment on above: Performed By: #### L [id number] ####[facility] ([facility])[address] [place] [address] 30on 03-21-2024 30 Normal [facility] 30 Normal [facility] BASIC METABOLIC PANELon Anion gap [Moles/Vol] 13 mmol/L Normal 7-20 [facility] Comment on above: Performed By: #### L [id number] ####[facility] ([facility])[address] [place] [address] Calcium [Mass/Vol] 8.8 mg/dL Normal 8.6-10.3 [facility] Comment on above: Performed By: #### L [id number] ####[facility] ([facility])[address] [place] [address] Chloride [Moles/Vol] 104 mmol/L Normal 98-107 [facility] Comment on above: Performed By: #### L [id number] ####[facility] ([facility])[address] [place] [address] CO2 [Moles/Vol] 27 mmol/L Normal 21-31 [facility] Comment on above: Performed By: #### L [id number] ####[facility] ([facility])[address] [place] [address] Creatinine [Mass/Vol] 0.48 mg/dL Low 0.60-1.20 [facility] Comment on above: Performed By: #### L [id number] ####[facility] ([facility])[address] [place] [address] GLOMERULAR FILTRATION RATE ML/MIN/1.73 SQ M.PREDICTED 105.0 mL/min/1.73m*2 Normal >60.0 [facility] Comment on above: Result Comment: The [facility]???s estimated glomerular filtration rate (eGFR) will [...] of individuals. Performed By: #### L [id number] ####[facility] ([facility])[address] [place] [address] Glucose [Mass/Vol] 108 mg/dL High 70-100 [facility] Comment on above: Performed By: #### L [id number] ####[facility] ([facility])[address] [place] [address] Potassium [Moles/Vol] 3.9 mmol/L Normal 3.5-5.1 [facility] Comment on above: Performed By: #### L [id number] ####[facility] ([facility])[address] [place] [address] Sodium [Moles/Vol] 140 mmol/L Normal 136-145 [facility] Comment on above: Performed By: #### L [id number] ####[facility] [place] [address] Urea nitrogen [Mass/Vol] 23 mg/dL Normal 7-25 [facility] Comment on above: Performed By: #### L [id number] ####[facility] ([facility])[address] [place] [address] UREA NITROGEN/CREATININE (MASS RATIO) IN SER/PLAS 47.9 Normal [facility] Comment on above: Performed By: #### L [id number] ####[facility] ([facility])[address] [place] [address] CBCon 03-21-2024 Erythrocyte distribution width (RBC) [Ratio] 13.7 % Normal 11.5-15.0 [facility] Comment on above: Performed By: #### L [id number] ####[facility] ([facility])[address] [place] [address] ERYTHROCYTE MEAN CORPUSCULAR HEMOGLOBIN CONCENTRATION (G/DL) BY AUTOMATED 32.4 g/dL Normal 32.0-35.0 [facility] Comment on above: Performed By: #### L [id number] ####[facility] ([facility])[address] [place] [address] Hematocrit (Bld) [Volume fraction] 32.4 % Low 36.0-48.0 [facility] Comment on above: Performed By: #### L [id number] ####[facility] ([facility])[address] [place] [address] Hemoglobin (Bld) [Mass/Vol] 10.5 g/dL Low 12.0-15.0 [facility] Comment on above: Performed By: #### L [id number] ####[facility] ([facility])[address] [place] [address] MCH (RBC) [Entitic mass] 29.2 pg Normal 27.0-33.0 [facility] Comment on above: Performed By: #### L [id number] ####[facility] ([facility])[address] [place] [address] MCV (RBC) [Entitic vol] 90.3 fL Normal 82.0-98.0 [facility] Comment on above: Performed By: #### L [id number] ####[facility] [place] [address] PLATELETS (10*3/UL) IN BLOOD AUTOMATED COUNT 288 10*3/uL Normal 150-400 [facility] Comment on above: Performed By: #### L [id number] ####[facility] [place] [address] RBC (Bld) [#/Vol] 3.59 10*6/uL Low 3.80-5.00 [facility] Comment on above: Performed By: #### L [id number] ####[facility] ([facility])[address] [place] [address] WBC (Bld) [#/Vol] 7.45 10*3/uL Normal 4.00-10.60 [facility] Comment on above: Performed By: #### L [id number] ####[facility] ([facility])[address] [place] [address] CONSULTon 03-21-2024 CONSULT Normal [facility] MAGNESIUMon 03-21-2024 Magnesium [Mass/Vol] 1.9 mg/dL Normal 1.9-2.7 [facility] Comment on above: Performed By: #### L [id number] ####[facility] ([facility])[address] [place] [address] MR BRAIN W AND WO CONTRASTon 03-21-2024 MR BRAIN W AND WO CONTRAST Invalid Interpretation Code [facility] PHOSPHORUSon 03-21-2024 Magnesium [Mass/Vol] 3.1 mg/dL Normal 2.5-5.0 [facility] Comment on above: Performed By: #### L [id number] ####[facility] ([facility])[address] [place] [address] 30on 03-20-2024 30 Normal [facility] BASIC METABOLIC PANELon Anion gap [Moles/Vol] 15 mmol/L Normal 7-20 [facility] Comment on above: Performed By: #### L [id number] ####[facility] [place] [address] Calcium [Mass/Vol] 8.7 mg/dL Normal 8.6-10.3 [facility] Comment on above: Performed By: #### L [id number] ####[facility] ([facility]ER)[address] [place] [address] Chloride [Moles/Vol] 102 mmol/L Normal 98-107 [facility] Comment on above: Performed By: #### L [id number] ####[facility] [place] [address] CO2 [Moles/Vol] 25 mmol/L Normal 21-31 [facility] Comment on above: Performed By: #### L [id number] ####[facility] ([facility])[address] [place] [address] Creatinine [Mass/Vol] 0.39 mg/dL Low 0.60-1.20 [facility] Comment on above: Performed By: #### L [id number] ####[facility] ([facility])[address] [place] [address] GLOMERULAR FILTRATION RATE ML/MIN/1.73 SQ M.PREDICTED 110.4 mL/min/1.73m*2 Normal >60.0 [facility] Comment on above: Result Comment: The [facility]???s estimated glomerular filtration rate (eGFR) will [...] of individuals. Performed By: #### L [id number] ####[facility] [place] [address] Glucose [Mass/Vol] 85 mg/dL Normal 70-100 [facility] Comment on above: Performed By: #### L [id number] ####[facility] [place] [address] Potassium [Moles/Vol] 3.5 mmol/L Normal 3.5-5.1 [facility] Comment on above: Performed By: #### L [id number] ####[facility] [place] [address] Sodium [Moles/Vol] 138 mmol/L Normal 136-145 [facility] Comment on above: Performed By: #### L [id number] ####[facility] [place] [address] Urea nitrogen [Mass/Vol] 8 mg/dL Normal 7-25 [facility] Comment on above: Performed By: #### L [id number] ####[facility] ([facility])[address] [place] [address] UREA NITROGEN/CREATININE (MASS RATIO) IN SER/PLAS 20.5 Normal [facility] Comment on above: Performed By: #### L [id number] ####[facility] [place] [address] CBCon 03-20-2024 Erythrocyte distribution width (RBC) [Ratio] 13.9 % Normal 11.5-15.0 [facility] Comment on above: Performed By: #### L [id number] ####[facility], [place] [address] ERYTHROCYTE MEAN CORPUSCULAR HEMOGLOBIN CONCENTRATION (G/DL) BY AUTOMATED 32.1 g/dL Normal 32.0-35.0 [facility] Comment on above: Performed By: #### L [id number] ####[facility] [place] [address] Hematocrit (Bld) [Volume fraction] 32.1 % Low 36.0-48.0 [facility] Comment on above: Performed By: #### L [id number] ####[facility] ([facility])[address] [place] [address] Hemoglobin (Bld) [Mass/Vol] 10.3 g/dL Low 12.0-15.0 [facility] Comment on above: Performed By: #### L [id number] ####[facility] ([facility])[address] [place] [address] MCH (RBC) [Entitic mass] 29.5 pg Normal 27.0-33.0 [facility] Comment on above: Performed By: #### L [id number] ####[facility] ([facility])[address] [address] MCV (RBC) [Entitic vol] 92.0 fL Normal 82.0-98.0 [facility] Comment on above: Performed By: #### L [id number] ####[facility] ([facility])[address] [place] [address] PLATELETS (10*3/UL) IN BLOOD AUTOMATED COUNT 243 10*3/uL Normal 150-400 [facility] Comment on above: Performed By: #### L [id number] ####[facility] ([facility])[address] [place] [address] RBC (Bld) [#/Vol] 3.49 10*6/uL Low 3.80-5.00 [facility] Comment on above: Performed By: #### L [id number] ####[facility] ([facility])[address] [address] WBC (Bld) [#/Vol] 6.86 10*3/uL Normal 4.00-10.60 [facility] Comment on above: Performed By: #### L [id number] ####[facility] ([facility])[address] [place] [address] MAGNESIUMon 03-20-2024 Magnesium [Mass/Vol] 1.8 mg/dL Low 1.9-2.7 [facility] Comment on above: Performed By: #### L [id number] ####[facility] ([facility])[address], [place] [address] PHOSPHORUSon 03-20-2024 Magnesium [Mass/Vol] 2.6 mg/dL Normal 2.5-5.0 [facility] Comment on above: Performed By: #### L [id number] ####[facility] [place] [address] BASIC METABOLIC PANELon 09-0 Anion gap [Moles/Vol] 10 mmol/L Normal 7-20 [facility] Comment on above: Performed By: #### L [id number] ####[facility] [place] [address] Calcium [Mass/Vol] 8.1 mg/dL Low 8.6-10.3 [facility] Comment on above: Performed By: #### L [id number] ####[facility] ([facility])[address] [place] [address] Chloride [Moles/Vol] 107 mmol/L Normal 98-107 [facility] Comment on above: Performed By: #### L [id number] ####[facility] ([facility])[address] [place] [address] CO2 [Moles/Vol] 27 mmol/L Normal 21-31 [facility] Comment on above: Performed By: #### L [id number] ####[facility] ([facility])[address] [place] [address] Creatinine [Mass/Vol] 0.41 mg/dL Low 0.60-1.20 [facility] Comment on above: Performed By: #### L [id number] ####[facility] ([facility])[address] [place] [address] GLOMERULAR FILTRATION RATE ML/MIN/1.73 SQ M.PREDICTED 109.1 mL/min/1.73m*2 Normal >60.0 [facility] Comment on above: Result Comment: [facility]???s estimated glomerular filtration rate (eGFR) will [...] of individuals. Performed By: #### L [id number] ####[facility] ([facility])[address] [place] [address] Glucose [Mass/Vol] 107 mg/dL High 70-100 [facility] Comment on above: Performed By: #### L [id number] ####[facility] ([facility])[address] [place] [address] Potassium [Moles/Vol] 3.6 mmol/L Normal 3.5-5.1 [facility] Comment on above: Performed By: #### L [id number] ####[facility] ([facility])[address] [place] [address] Sodium [Moles/Vol] 140 mmol/L Normal 136-145 [facility] Comment on above: Performed By: #### L [id number] ####[facility] ([facility])[address] [place] [address] Urea nitrogen [Mass/Vol] 6 mg/dL Low 7-25 [facility] Comment on above: Performed By: #### L [id number] ####[facility] ([facility])[address] [place] [address] UREA NITROGEN/CREATININE (MASS RATIO) IN SER/PLAS 14.6 Normal [facility] Comment on above: Performed By: #### L [id number] ####[facility] ([facility])[address] [place] [address] CBCon 03-19-2024 Erythrocyte distribution width (RBC) [Ratio] 14.6 % Normal 11.5-15.0 [facility] Comment on above: Performed By: #### L [id number] ####[facility] ([facility])[address] [place] [address] ERYTHROCYTE MEAN CORPUSCULAR HEMOGLOBIN CONCENTRATION (G/DL) BY AUTOMATED 31.6 g/dL Low 32.0-35.0 [facility] Comment on above: Performed By: #### L [id number] ####[facility] ([facility])[address] [address] Hematocrit (Bld) [Volume fraction] 28.2 % Low 36.0-48.0 [facility] Comment on above: Performed By: #### L [id number] ####[facility] ([facility])[address] [address] Hemoglobin (Bld) [Mass/Vol] 8.9 g/dL Low 12.0-15.0 [facility] Comment on above: Performed By: #### L [id number] ####[facility] ([facility])[address] [address] MCH (RBC) [Entitic mass] 29.3 pg Normal 27.0-33.0 [facility] Comment on above: Performed By: #### L [id number] ####[facility] ([facility])[address] [address] MCV (RBC) [Entitic vol] 92.8 fL Normal 82.0-98.0 [facility] Comment on above: Performed By: #### L [id number] ####[facility] ([facility])[address] [address] PLATELETS (10*3/UL) IN BLOOD AUTOMATED COUNT 212 10*3/uL Normal 150-400 [facility] Comment on above: Performed By: #### L [id number] ####[facility] ([facility])[address] [address] RBC (Bld) [#/Vol] 3.04 10*6/uL Low 3.80-5.00 [facility] Comment on above: Performed By: #### L [id number] ####[facility], [place] [address] WBC (Bld) [#/Vol] 6.98 10*3/uL Normal 4.00-10.60 [facility] Comment on above: Performed By: #### L [id number] ####[facility] ([facility])[address] [place] [address] MAGNESIUMon 03-19-2024 Magnesium [Mass/Vol] 1.8 mg/dL Low 1.9-2.7 [facility] Comment on above: Performed By: #### L [id number] ####[facility] ([facility])[address] [place] [address] PHOSPHORUSon 03-19-2024 Magnesium [Mass/Vol] 2.6 mg/dL Normal 2.5-5.0 [facility] Comment on above: Performed By: #### L [id number] ####[facility] [place] [address] [id number] 2023 ALPHA-1 ANTITRYPSIN 294 mg/dL High 90-200 [facility] Comment on above: Result Comment: To c onvert to umol/L, multiply mg/dL by 0.185Performed By: [employer] [place], [place] [address]Rdosqxieoi Director: Tip Hathaway MD, PhDCLIA Number: [id number] Performed By: #### L [id number] ####[facility] ([facility])[address] [place] [address] BASIC METABOLIC PANELon Anion gap [Moles/Vol] 14 mmol/L Normal 7-20 [facility] Comment on above: Performed By: #### L [id number] ####[facility] [place] [address] Calcium [Mass/Vol] 7.9 mg/dL Low 8.6-10.3 [facility] Comment on above: Performed By: #### L [id number] ####[facility] ([facility])[address] [place] [address] Chloride [Moles/Vol] 108 mmol/L High 98-107 [facility] Comment on above: Performed By: #### L [id number] ####[facility] ([facility])[address] [place] [address] CO2 [Moles/Vol] 23 mmol/L Normal 21-31 [facility] Comment on above: Performed By: #### L [id number] ####[facility] ([facility])[address] [place] [address] Creatinine [Mass/Vol] 0.47 mg/dL Low 0.60-1.20 [facility] Comment on above: Performed By: #### L [id number] ####[facility] ([facility])[address] [place] [address] GLOMERULAR FILTRATION RATE ML/MIN/1.73 SQ M.PREDICTED 105.6 mL/min/1.73m*2 Normal >60.0 [facility] Comment on above: Result Comment: [facility]???s estimated glomerular filtration rate (eGFR) will [...] of individuals. Performed By: #### L [id number] ####[facility] ([facility])[address] [place] [address] Glucose [Mass/Vol] 103 mg/dL High 70-100 [facility] Comment on above: Performed By: #### L [id number] ####[facility] ([facility])[address] [place] [address] Potassium [Moles/Vol] 3.6 mmol/L Normal 3.5-5.1 [facility] Comment on above: Performed By: #### L [id number] ####[facility] ([facility])[address] [place] [address] Sodium [Moles/Vol] 141 mmol/L Normal 136-145 [facility] Comment on above: Performed By: #### L [id number] ####[facility] ([facility])[address] [place] [address] Urea nitrogen [Mass/Vol] 6 mg/dL Low 7-25 [facility] Comment on above: Performed By: #### L [id number] ####[facility] ([facility])[address] [place] [address] UREA NITROGEN/CREATININE (MASS RATIO) IN SER/PLAS 12.8 Normal [facility] Comment on above: Performed By: #### L [id number] ####[facility] ([facility])[address] [place] [address] Anion gap [Moles/Vol] 11 mmol/L Normal 7-20 [facility] Comment on above: Performed By: #### L [id number] ####[facility] (BEAKER)[address] [place] [address] Calcium [Mass/Vol] 8.1 mg/dL Low 8.6-10.3 [facility] Comment on above: Performed By: #### L [id number] ####[facility] (BEAKER)[address] [place] [address] Chloride [Moles/Vol] 108 mmol/L High 98-107 [facility] Comment on above: Performed By: #### L [id number] ####[facility] (BEAKER)[address] [place] [address] CO2 [Moles/Vol] 23 mmol/L Normal 21-31 [facility] Comment on above: Performed By: #### L [id number] ####[facility] (BEAKER)[address] [place] [address] Creatinine [Mass/Vol] 0.44 mg/dL Low 0.60-1.20 [facility] Comment on above: Performed By: #### L [id number] ####[facility] (BEAKER)[address] [place] [address] GLOMERULAR FILTRATION RATE ML/MIN/1.73 SQ M.PREDICTED 107.3 mL/min/1.73m*2 Normal >60.0 [facility] Comment on above: Result Comment: [facility]???s estimated glomerular filtration rate (eGFR) will [...] of individuals. Performed By: #### L [id number] ####[facility] ([facility])[address] [place] [address] Glucose [Mass/Vol] 92 mg/dL Normal 70-100 [facility] Comment on above: Performed By: #### L [id number] ####[facility] [facility])[address] [place] [address] Potassium [Moles/Vol] 3.6 mmol/L Normal 3.5-5.1 [facility] Comment on above: Performed By: #### L [id number] ####[facility] ([facility])[address] [place] [address] Sodium [Moles/Vol] 138 mmol/L Normal 136-145 [facility] Comment on above: Performed By: #### L [id number] ####[facility] ([facility])[address] [place] [address] Urea nitrogen [Mass/Vol] 8 mg/dL Normal 7-25 [facility] Comment on above: Performed By: #### L [id number] ####[facility] [place] [address] UREA NITROGEN/CREATININE (MASS RATIO) IN SER/PLAS 18.2 Normal [facility] Comment on above: Performed By: #### L [id number] ####[facility] ([facility])[address] [place] [address] CBCon 03-18-2024 Erythrocyte distribution width (RBC) [Ratio] 14.6 % Normal 11.5-15.0 [facility] Comment on above: Performed By: #### L [id number] ####[facility] ([facility] [place] [address] ERYTHROCYTE MEAN CORPUSCULAR HEMOGLOBIN CONCENTRATION (G/DL) BY AUTOMATED 31.7 g/dL Low 32.0-35.0 [facility] Comment on above: Performed By: #### L [id number] ####[facility] [place] [address] Hematocrit (Bld) [Volume fraction] 27.1 % Low 36.0-48.0 [facility] Comment on above: Performed By: #### L [id number] ####[facility] ([facility] [place] [address] Hemoglobin (Bld) [Mass/Vol] 8.6 g/dL Low 12.0-15.0 [facility] Comment on above: Performed By: #### L [id number] ####[facility] (BEAKER)[address] [place] [address] MCH (RBC) [Entitic mass] 29.3 pg Normal 27.0-33.0 [facility] Comment on above: Performed By: #### L [id number] ####[facility] ([facility]AKER)[address] [place] [address] MCV (RBC) [Entitic vol] 92.2 fL Normal 82.0-98.0 [facility] Comment on above: Performed By: #### L [id number] ####[facility] ([facility]AKER)[address] [place] [address] PLATELETS (10*3/UL) IN BLOOD AUTOMATED COUNT 167 10*3/uL Normal 150-400 [facility] Comment on above: Performed By: #### L [id number] ####[facility] (BEAKER)[address] [place] [address] RBC (Bld) [#/Vol] 2.94 10*6/uL Low 3.80-5.00 [facility] Comment on above: Performed By: #### L [id number] ####[facility] (BEAKER)[address] [place] [address] WBC (Bld) [#/Vol] 8.17 10*3/uL Normal 4.00-10.60 [facility] Comment on above: Performed By: #### L [id number] ####[facility] (BEAKER)[address] [place] [address] MAGNESIUMon 03-18-2024 Magnesium [Mass/Vol] 2.0 mg/dL Normal 1.9-2.7 [facility] Comment on above: Performed By: #### L [id number] ####[facility] ([facility]AKER)[address] [place] [address] Magnesium [Mass/Vol] 1.7 mg/dL Low 1.9-2.7 [facility] Comment on above: Performed By: #### L [id number] ####[facility] (BEAKER)[address] [place] [address] PHOSPHORUSon 03-18-2024 Magnesium [Mass/Vol] 3.4 mg/dL Normal 2.5-5.0 [facility] Comment on above: Performed By: #### L [id number] ####[facility] ([facility]ER)[address] [place] [address] Magnesium [Mass/Vol] 2.4 mg/dL Low 2.5-5.0 [facility] Comment on above: Performed By: #### L [id number] ####[facility] (BEAKER)[address] [place] [address] TRIGLYCERIDESon 03-18-2024 FASTING? Unknown Normal [facility] Comment on above: Order Comment: Monit or triglycerides while patient is on propofol. Consult Nutrition if greater than 500 mg/dL. Performed By: #### L [id number] ####[facility] ([facility]AKER)[address] [place] [address] Magnesium [Mass/Vol] 116 mg/dL Normal 40-149 [facility] Comment on above: Order Comment: Monit or triglycerides while patient is on propofol. Consult Nutrition if greater than 500 mg/dL. Result Comment: TRIG LYCERIDE REFERENCE RANGE:20 YEARS AND OLDER CARDIOVASCULAR RISKLESS THAN 150 mg/dL LOW [id number] TO 199 mg/dL BORDERLINE LVTY021 mg/dL AND GREATER HIGH RISK Performed By: #### L [id number] ####[facility] ([facility]AKER)[address] [place] [address] 30on 03-17-2024 30 Normal [facility] AFB CULTUREon 03-17-2024 AFB CULTURE No growth at 42 days Normal [facility] Comment on above: Performed By: #### L [id number] ####[facility] (BEAKER)[address] [place] [address] AFB STAIN No acid fast bacilli seen Normal [facility] Comment on above: Performed By: #### L [id number] ####[facility] ([facility]AKER)[address] [place] [address] BASIC METABOLIC PANELon Anion gap [Moles/Vol] 10 mmol/L Normal 7-20 [facility] Comment on above: Performed By: #### L [id number] ####[facility] (BEAKER)[address] [place] [address] Calcium [Mass/Vol] 8.0 mg/dL Low 8.6-10.3 [facility] Comment on above: Performed By: #### L [id number] ####[facility] (BEAKER)[address] [place] [address] Chloride [Moles/Vol] 107 mmol/L Normal 98-107 [facility] Comment on above: Performed By: #### L [id number] ####[facility] (BEAKER)[address] [place] [address] CO2 [Moles/Vol] 23 mmol/L Normal 21-31 [facility] Comment on above: Performed By: #### L [id number] ####[facility] ([facility])[address] [place] [address] Creatinine [Mass/Vol] 0.48 mg/dL Low 0.60-1.20 [facility] Comment on above: Performed By: #### L [id number] ####[facility] ([facility])[address] [place] [address] GLOMERULAR FILTRATION RATE ML/MIN/1.73 SQ M.PREDICTED 105.0 mL/min/1.73m*2 Normal >60.0 [facility] Comment on above: Result Comment: [facility]???s estimated glomerular filtration rate (eGFR) will [...] of individuals. Performed By: #### L [id number] ####[facility] ([facility])[address] [place] [address] Glucose [Mass/Vol] 101 mg/dL High 70-100 [facility] Comment on above: Performed By: #### L [id number] ####[facility] ([facility])[address] [place] [address] Potassium [Moles/Vol] 3.4 mmol/L Low 3.5-5.1 [facility] Comment on above: Performed By: #### L [id number] ####[facility] ([facility])[address] [place] [address] Sodium [Moles/Vol] 137 mmol/L Normal 136-145 [facility] Comment on above: Performed By: #### L [id number] ####[facility] ([facility])[address] [facility] [place] [address] Urea nitrogen [Mass/Vol] 8 mg/dL Normal 7-25 [facility] Comment on above: Performed By: #### L [id number] ####[facility] ([facility])[address] [place] [address] UREA NITROGEN/CREATININE (MASS RATIO) IN SER/PLAS 16.7 Normal [facility] Comment on above: Performed By: #### L [id number] ####[facility] ([facility])[address] [place] [address] CBCon 03-17-2024 Erythrocyte distribution width (RBC) [Ratio] 14.7 % Normal 11.5-15.0 [facility] Comment on above: Performed By: #### L [id number] ####[facility] ([facility])[address] [place] [address] ERYTHROCYTE MEAN CORPUSCULAR HEMOGLOBIN CONCENTRATION (G/DL) BY AUTOMATED 32.0 g/dL Normal 32.0-35.0 [facility] Comment on above: Performed By: #### L [id number] ####[facility] ([facility])[address] [place] [address] Hematocrit (Bld) [Volume fraction] 29.7 % Low 36.0-48.0 [facility] Comment on above: Performed By: #### L [id number] ####[facility] [place] [address] Hemoglobin (Bld) [Mass/Vol] 9.5 g/dL Low 12.0-15.0 [facility] Comment on above: Performed By: #### L [id number] ####[facility] [place] [address] MCH (RBC) [Entitic mass] 29.9 pg Normal 27.0-33.0 [facility] Comment on above: Performed By: #### L [id number] ####[facility] (BEAKER)[address] [place] [address] MCV (RBC) [Entitic vol] 93.4 fL Normal 82.0-98.0 [facility] Comment on above: Performed By: #### L [id number] ####[facility] [place] [address] PLATELETS (10*3/UL) IN BLOOD AUTOMATED COUNT 186 10*3/uL Normal 150-400 [facility] Comment on above: Performed By: #### L [id number] ####[facility] ([facility])[address] [place] [address] RBC (Bld) [#/Vol] 3.18 10*6/uL Low 3.80-5.00 [facility] Comment on above: Performed By: #### L [id number] ####[facility] ([facility])[address] [place] [address] WBC (Bld) [#/Vol] 8.27 10*3/uL Normal 4.00-10.60 [facility] Comment on above: Performed By: #### L [id number] ####[facility] ([facility])[address] [place] [address] Erythrocyte distribution width (RBC) [Ratio] 14.6 % Normal 11.5-15.0 [facility] Comment on above: Performed By: #### L [id number] ####[facility] ([facility])[address] [place] [address] ERYTHROCYTE MEAN CORPUSCULAR HEMOGLOBIN CONCENTRATION (G/DL) BY AUTOMATED 31.4 g/dL Low 32.0-35.0 [facility] Comment on above: Performed By: #### L [id number] ####[facility] [place] [address] Hematocrit (Bld) [Volume fraction] 30.3 % Low 36.0-48.0 [facility] Comment on above: Performed By: #### L [id number] ####[facility] (BEAKER)[address] [place] [address] Hemoglobin (Bld) [Mass/Vol] 9.5 g/dL Low 12.0-15.0 [facility] Comment on above: Performed By: #### L [id number] ####[facility] [place] [address] MCH (RBC) [Entitic mass] 29.3 pg Normal 27.0-33.0 [facility] Comment on above: Performed By: #### L [id number] ####[facility] ([facility])[address] [place] [address] MCV (RBC) [Entitic vol] 93.5 fL Normal 82.0-98.0 [facility] Comment on above: Performed By: #### L [id number] ####[facility] ([facility])[address] [place] [address] PLATELETS (10*3/UL) IN BLOOD AUTOMATED COUNT 185 10*3/uL Normal 150-400 [facility] Comment on above: Performed By: #### L [id number] ####[facility] ([facility])[address] [place] [address] RBC (Bld) [#/Vol] 3.24 10*6/uL Low 3.80-5.00 [facility] Comment on above: Performed By: #### L [id number] ####[facility] ([facility])[address] [place] [address] WBC (Bld) [#/Vol] 9.38 10*3/uL Normal 4.00-10.60 [facility] Comment on above: Performed By: #### L [id number] ####[facility] ([facility])[address] [place] [address] FUNGAL CULTUREon 03-17-2024 FUNGAL SMEAR No yeast or fungal e lements seen Normal [facility] Comment on above: Performed By: #### L [id number] ####[facility] ([facility])[address] [place] [address] HEMOGLOBIN AND HEMATOCRIT, B LOODon 03-17-2024 Hematocrit (Bld) [Volume fraction] 27.7 % Low 36.0-48.0 [facility] Comment on above: Performed By: #### L [id number] ####[facility] ([facility])[address] [place] [address] Hemoglobin (Bld) [Mass/Vol] 9.0 g/dL Low 12.0-15.0 [facility] Comment on above: Performed By: #### L [id number] ####[facility] ([facility])[address] [place] [address] MAGNESIUMon 03-17-2024 Magnesium [Mass/Vol] 1.9 mg/dL Normal 1.9-2.7 [facility] Comment on above: Performed By: #### L [id number] ####[facility] ([facility])[address] [place] [address] PHOSPHORUSon 03-17-2024 Magnesium [Mass/Vol] 2.2 mg/dL Low 2.5-5.0 [facility] Comment on above: Performed By: #### L [id number] ####[facility] ([facility])[address] [place] [address] SPUTUM CULTUREon 03-17-2024 GRAM STAIN RESULT Normal [facility] Comment on above: Order Comment: Light Growth Colonies Consistent with Upper Respiratory Li Result Comment: <10 Epithelial cells per low power field>25 Polys Per Low Power FieldRare Gram positive cocci in clustersRare Gram negative bacilli Performed By: #### L [id number] ####[facility] ([facility])[address] [facility] [place] [address] TROPONIN Ion 03-17-2024 Troponin I.cardiac [Mass/Vol] 0.08 ng/mL High 0.00-0.04 [facility] Comment on above: Performed By: #### L [id number] ####[facility] ([facility])[address] [facility] [place] [address] Troponin I.cardiac [Mass/Vol] 0.06 ng/mL High 0.00-0.04 [facility] Comment on above: Performed By: #### L [id number] ####[facility] ([facility])[address] [facility] [place] [place] [address] VANCOMYCIN, TROUGHon 024 VANCOMYCIN (UG/ML) IN SER/PLAS - TROUGH 4.5 ug/mL Low 5.0-20.0 [facility] Comment on above: Performed By: #### L [id number] ####[facility] (BEAKER)[address] [place] [address] BASIC METABOLIC PANELon 08-3 Anion gap [Moles/Vol] 12 mmol/L Normal 7-20 [facility] Comment on above: Performed By: #### L [id number] ####[facility] [place] [address] Calcium [Mass/Vol] 7.9 mg/dL Low 8.6-10.3 [facility] Comment on above: Performed By: #### L [id number] ####[facility] [place] [address] Chloride [Moles/Vol] 105 mmol/L Normal 98-107 [facility] Comment on above: Performed By: #### L [id number] ####[facility] (BEAKER)[address] [place] [address] CO2 [Moles/Vol] 22 mmol/L Normal 21-31 [facility] Comment on above: Performed By: #### L [id number] ####[facility] (BEAKER)[address] [place] [address] Creatinine [Mass/Vol] 0.65 mg/dL Normal 0.60-1.20 [facility] Comment on above: Performed By: #### L [id number] ####[facility] (BEAKER)[address] [place] [address] GLOMERULAR FILTRATION RATE ML/MIN/1.73 SQ M.PREDICTED 97.6 mL/min/1.73m*2 Normal >60.0 [facility] Comment on above: Result Comment: [facility]???s estimated glomerular filtration rate (eGFR) will [...] of individuals. Performed By: #### L [id number] ####[facility] ([facility])[address] [place] [address] Glucose [Mass/Vol] 95 mg/dL Normal 70-100 [facility] Comment on above: Performed By: #### L [id number] ####[facility] [place] [address] Potassium [Moles/Vol] 3.3 mmol/L Low 3.5-5.1 [facility] Comment on above: Performed By: #### L [id number] ####[facility] ([facility])[address] [place] [address] Sodium [Moles/Vol] 136 mmol/L Normal 136-145 [facility] Comment on above: Performed By: #### L [id number] ####[facility] [place] [address] Urea nitrogen [Mass/Vol] 9 mg/dL Normal 7-25 [facility] Comment on above: Performed By: #### L [id number] ####[facility] [place] [address] UREA NITROGEN/CREATININE (MASS RATIO) IN SER/PLAS 13.8 Normal [facility] Comment on above: Performed By: #### L [id number] ####[facility] [place] [address] CBCon 03-16-2024 Erythrocyte distribution width (RBC) [Ratio] 14.7 % Normal 11.5-15.0 [facility] Comment on above: Performed By: #### L [id number] ####[facility] [place] [address] ERYTHROCYTE MEAN CORPUSCULAR HEMOGLOBIN CONCENTRATION (G/DL) BY AUTOMATED 31.8 g/dL Low 32.0-35.0 [facility] Comment on above: Performed By: #### L [id number] ####[facility] (BEAKER)[address] [place] [address] Hematocrit (Bld) [Volume fraction] 30.8 % Low 36.0-48.0 [facility] Comment on above: Performed By: #### L [id number] ####[facility] [place] [address] Hemoglobin (Bld) [Mass/Vol] 9.8 g/dL Low 12.0-15.0 [facility] Comment on above: Performed By: #### L [id number] ####[facility] [place] [address] MCH (RBC) [Entitic mass] 29.4 pg Normal 27.0-33.0 [facility] Comment on above: Performed By: #### L [id number] ####[facility] [place] [address] MCV (RBC) [Entitic vol] 92.5 fL Normal 82.0-98.0 [facility] Comment on above: Performed By: #### L [id number] ####[facility] (BEAKER)[address] [place] [address] PLATELETS (10*3/UL) IN BLOOD AUTOMATED COUNT 179 10*3/uL Normal 150-400 [facility] Comment on above: Performed By: #### L [id number] ####[facility] (BEAKER)[address] [place] [address] RBC (Bld) [#/Vol] 3.33 10*6/uL Low 3.80-5.00 [facility] Comment on above: Performed By: #### L [id number] ####[facility] (BEAKER)[address] [place] [address] WBC (Bld) [#/Vol] 9.45 10*3/uL Normal 4.00-10.60 [facility] Comment on above: Performed By: #### L [id number] ####[facility] (BEAKER)[address] [place] [address] Erythrocyte distribution width (RBC) [Ratio] 14.7 % Normal 11.5-15.0 [facility] Comment on above: Performed By: #### L [id number] ####[facility] [place] [address] ERYTHROCYTE MEAN CORPUSCULAR HEMOGLOBIN CONCENTRATION (G/DL) BY AUTOMATED 32.0 g/dL Normal 32.0-35.0 [facility] Comment on above: Performed By: #### L [id number] ####[facility] [place] [address] Hematocrit (Bld) [Volume fraction] 30.6 % Low 36.0-48.0 [facility] Comment on above: Performed By: #### L [id number] ####[facility] (BEAKER)[address] [place] [address] Hemoglobin (Bld) [Mass/Vol] 9.8 g/dL Low 12.0-15.0 [facility] Comment on above: Performed By: #### L [id number] ####[facility] (BEAKER)[address] [place] [address] MCH (RBC) [Entitic mass] 30.0 pg Normal 27.0-33.0 [facility] Comment on above: Performed By: #### L [id number] ####[facility] (BEAKER)[address] [place] [address] MCV (RBC) [Entitic vol] 93.6 fL Normal 82.0-98.0 [facility] Comment on above: Performed By: #### L [id number] ####[facility] (BEAKER)[address] [place] [address] PLATELETS (10*3/UL) IN BLOOD AUTOMATED COUNT 177 10*3/uL Normal 150-400 [facility] Comment on above: Performed By: #### L [id number] ####[facility] (BEAKER)[address] [address] RBC (Bld) [#/Vol] 3.27 10*6/uL Low 3.80-5.00 [facility] Comment on above: Performed By: #### L [id number] ####[facility] (BEAKER)[address] [address] WBC (Bld) [#/Vol] 10.10 10*3/uL Normal 4.00-10.60 [facility] Comment on above: Performed By: #### L [id number] ####[facility] (BEAKER)[address] [address] Erythrocyte distribution width (RBC) [Ratio] 14.9 % Normal 11.5-15.0 [facility] Comment on above: Performed By: #### L [id number] ####[facility] (BEAKER)[address] [address] ERYTHROCYTE MEAN CORPUSCULAR HEMOGLOBIN CONCENTRATION (G/DL) BY AUTOMATED 31.0 g/dL Low 32.0-35.0 [facility] Comment on above: Performed By: #### L [id number] ####[facility] (BEAKER)[address] [place] [address] Hematocrit (Bld) [Volume fraction] 37.4 % Normal 36.0-48.0 [facility] Comment on above: Performed By: #### L [id number] ####[facility] (BEAKER)[address], [place] [address] Hemoglobin (Bld) [Mass/Vol] 11.6 g/dL Low 12.0-15.0 [facility] Comment on above: Performed By: #### L [id number] ####[facility] (BEAKER)[address] [place] [address] MCH (RBC) [Entitic mass] 30.1 pg Normal 27.0-33.0 [facility] Comment on above: Performed By: #### L [id number] ####[facility] (BEAKER)[address] [place] [address] MCV (RBC) [Entitic vol] 96.9 fL Normal 82.0-98.0 [facility] Comment on above: Performed By: #### L [id number] ####[facility] (BEAKER)[address] [place] [address] PLATELETS (10*3/UL) IN BLOOD AUTOMATED COUNT 179 10*3/uL Normal 150-400 [facility] Comment on above: Performed By: #### L [id number] ####[facility] (BEAKER)[address] [place] [address] RBC (Bld) [#/Vol] 3.86 10*6/uL Normal 3.80-5.00 [facility] Comment on above: Performed By: #### L [id number] ####[facility] (BEAKER)[address] [place] [address] WBC (Bld) [#/Vol] 12.28 10*3/uL High 4.00-10.60 [facility] Comment on above: Performed By: #### L [id number] ####[facility] (BEAKER)[address] [place] [address] HEMOGLOBIN AND HEMATOCRIT, B LOODon 03-16-2024 Hematocrit (Bld) [Volume fraction] 29.0 % Low 36.0-48.0 [facility] Comment on above: Performed By: #### L [id number] ####[facility] (BEAKER)[address] [place] [address] Hemoglobin (Bld) [Mass/Vol] 9.4 g/dL Low 12.0-15.0 [facility] Comment on above: Performed By: #### L [id number] ####[facility] (BEAKER)[address] [place] [address] Hematocrit (Bld) [Volume fraction] 31.8 % Low 36.0-48.0 [facility] Comment on above: Performed By: #### L [id number] ####[facility] (BEAKER)[address] [place] [address] Hemoglobin (Bld) [Mass/Vol] 9.9 g/dL Low 12.0-15.0 [facility] Comment on above: Performed By: #### L [id number] ####[facility] [place] [address] Hematocrit (Bld) [Volume fraction] 30.0 % Low 36.0-48.0 [facility] Comment on above: Performed By: #### L [id number] ####[facility] [place] [address] Hemoglobin (Bld) [Mass/Vol] 9.6 g/dL Low 12.0-15.0 [facility] Comment on above: Performed By: #### L [id number] ####[facility] ([facility])[address] [place] [address] MAGNESIUMon 03-16-2024 Magnesium [Mass/Vol] 1.7 mg/dL Low 1.9-2.7 [facility] Comment on above: Performed By: #### L [id number] ####[facility] (BEAKER)[address] [place] [address] PHOSPHORUSon 03-16-2024 Magnesium [Mass/Vol] 2.4 mg/dL Low 2.5-5.0 [facility] Comment on above: Performed By: #### L [id number] ####[facility] (BEAKER)[address] [place] [address] TROPONIN Ion 03-16-2024 Troponin I.cardiac [Mass/Vol] 0.05 ng/mL High 0.00-0.04 [facility] Comment on above: Performed By: #### L [id number] ####[facility] (BEAKER)[address] [place] [address] Troponin I.cardiac [Mass/Vol] 0.05 ng/mL High 0.00-0.04 [facility] Comment on above: Performed By: #### L [id number] ####[facility] ([facility])[address] [place] [address] Troponin I.cardiac [Mass/Vol] 0.03 ng/mL Normal 0.00-0.04 [facility] Comment on above: Performed By: #### L [id number] ####[facility] ([facility])[address] [place] [address] Troponin I.cardiac [Mass/Vol] 0.02 ng/mL Normal 0.00-0.04 [facility] Comment on above: Performed By: #### L [id number] ####[facility] ([facility])[address] [place] [address] Troponin I.cardiac [Mass/Vol] 0.07 ng/mL High 0.00-0.04 [facility] Comment on above: Performed By: #### L [id number] ####[facility] ([facility])[address] [place] [address] VANCOMYCIN, PEAKon 4 VANCOMYCIN (UG/ML) IN SER/PLAS - PEAK 13.4 ug/mL Low 20.0-50.0 [facility] Comment on above: Performed By: #### L [id number] ####[facility] ([facility])[address] [place] [address] 30on 03-15-2023 30 Normal [facility] BASIC METABOLIC PANELon 02-16 Anion gap [Moles/Vol] 10 mmol/L Normal 7-20 [facility] Comment on above: Performed By: #### L [id number] ####[facility] ([facility])[address] [place] [address] Calcium [Mass/Vol] 7.9 mg/dL Low 8.6-10.3 [facility] Comment on above: Performed By: #### L [id number] ####[facility] [place] [address] Chloride [Moles/Vol] 110 mmol/L High 98-107 [facility] Comment on above: Performed By: #### L [id number] ####[facility] ([facility])[address] [facility] [facility] [place] [address] CO2 [Moles/Vol] 23 mmol/L Normal 21-31 [facility] Comment on above: Performed By: #### L [id number] ####[facility] ([facility])[address] [place] [address] Creatinine [Mass/Vol] 0.59 mg/dL Low 0.60-1.20 [facility] Comment on above: Performed By: #### L [id number] ####[facility] ([facility])[address] [place] [address] GLOMERULAR FILTRATION RATE ML/MIN/1.73 SQ M.PREDICTED 100.0 mL/min/1.73m*2 Normal >60.0 [facility] Comment on above: Result Comment: The [facility]???s estimated glomerular filtration rate (eGFR) will [...] of individuals. Performed By: #### L [id number] ####[facility] ([facility])[address] [place] [address] Glucose [Mass/Vol] 103 mg/dL High 70-100 [facility] Comment on above: Performed By: #### L [id number] ####[facility] ([facility])[address] [place] [address] Potassium [Moles/Vol] 3.6 mmol/L Normal 3.5-5.1 [facility] Comment on above: Performed By: #### L [id number] ####[facility] ([facility])[address] [place] [address] Sodium [Moles/Vol] 139 mmol/L Normal 136-145 [facility] Comment on above: Performed By: #### L [id number] ####[facility] (BEAKER)[address] [place] [address] Urea nitrogen [Mass/Vol] 11 mg/dL Normal 7-25 [facility] Comment on above: Performed By: #### L [id number] ####[facility] [place] [address] UREA NITROGEN/CREATININE (MASS RATIO) IN SER/PLAS 18.6 Normal [facility] Comment on above: Performed By: #### L [id number] ####[facility] [place] [address] Anion gap [Moles/Vol] 9 mmol/L Normal 7-20 [facility] Comment on above: Performed By: #### L [id number] ####[facility] [place] [address] Calcium [Mass/Vol] 7.9 mg/dL Low 8.6-10.3 [facility] Comment on above: Performed By: #### L [id number] ####[facility] (BEAKER)[address] [place] [address] Chloride [Moles/Vol] 107 mmol/L Normal 98-107 [facility] Comment on above: Performed By: #### L [id number] ####[facility] (BEAKER)[address] [place] [address] CO2 [Moles/Vol] 24 mmol/L Normal 21-31 [facility] Comment on above: Performed By: #### L [id number] ####[facility] (BEAKER)[address] [place] [address] Creatinine [Mass/Vol] 0.65 mg/dL Normal 0.60-1.20 [facility] Comment on above: Performed By: #### L [id number] ####[facility] (BEAKER)[address] [place] [address] GLOMERULAR FILTRATION RATE ML/MIN/1.73 SQ M.PREDICTED 97.6 mL/min/1.73m*2 Normal >60.0 [facility] Comment on above: Result Comment: The [facility]???s estimated glomerular filtration rate (eGFR) will [...] of individuals. Performed By: #### L [id number] ####[facility] ([facility])[address] [place] [address] Glucose [Mass/Vol] 117 mg/dL High 70-100 [facility] Comment on above: Performed By: #### L [id number] ####[facility] ([facility])[address] [place] [address] Potassium [Moles/Vol] 3.8 mmol/L Normal 3.5-5.1 [facility] Comment on above: Performed By: #### L [id number] ####[facility] ([facility])[address] [place] [address] Sodium [Moles/Vol] 136 mmol/L Normal 136-145 [facility] Comment on above: Performed By: #### L [id number] ####[facility] [place] [address] Urea nitrogen [Mass/Vol] 15 mg/dL Normal 7-25 [facility] Comment on above: Performed By: #### L [id number] ####[facility] ([facility])[address] [place] [address] UREA NITROGEN/CREATININE (MASS RATIO) IN SER/PLAS 23.1 Normal [facility] Comment on above: Performed By: #### L [id number] ####[facility] [place] [address] CBCon 03-15-2024 Erythrocyte distribution width (RBC) [Ratio] 14.7 % Normal 11.5-15.0 [facility] Comment on above: Performed By: #### L [id number] ####[facility] ([facility])[address] [place] [address] ERYTHROCYTE MEAN CORPUSCULAR HEMOGLOBIN CONCENTRATION (G/DL) BY AUTOMATED 31.5 g/dL Low 32.0-35.0 [facility] Comment on above: Performed By: #### L [id number] ####[facility] ([facility])[address] [place] [address] Hematocrit (Bld) [Volume fraction] 28.9 % Low 36.0-48.0 [facility] Comment on above: Performed By: #### L [id number] ####[facility] ([facility])[address] [place] [address] Hemoglobin (Bld) [Mass/Vol] 9.1 g/dL Low 12.0-15.0 [facility] Comment on above: Performed By: #### L [id number] ####[facility] ([facility])[address] [place] [address] MCH (RBC) [Entitic mass] 29.4 pg Normal 27.0-33.0 [facility] Comment on above: Performed By: #### L [id number] ####[facility] ([facility])[address] [place] [address] MCV (RBC) [Entitic vol] 93.5 fL Normal 82.0-98.0 [facility] Comment on above: Performed By: #### L [id number] ####[facility] [place] [address] PLATELETS (10*3/UL) IN BLOOD AUTOMATED COUNT 170 10*3/uL Normal 150-400 [facility] Comment on above: Performed By: #### L [id number] ####[facility] (BEAKER)[address] [place] [address] RBC (Bld) [#/Vol] 3.09 10*6/uL Low 3.80-5.00 [facility] Comment on above: Performed By: #### L [id number] ####[facility] (BEAKER)[address] [place] [address] WBC (Bld) [#/Vol] 6.38 10*3/uL Normal 4.00-10.60 [facility] Comment on above: Performed By: #### L [id number] ####[facility] ([facility])[address] [place] [address] Erythrocyte distribution width (RBC) [Ratio] 14.9 % Normal 11.5-15.0 [facility] Comment on above: Performed By: #### L [id number] ####[facility] [place] [address] ERYTHROCYTE MEAN CORPUSCULAR HEMOGLOBIN CONCENTRATION (G/DL) BY AUTOMATED 32.0 g/dL Normal 32.0-35.0 [facility] Comment on above: Performed By: #### L [id number] ####[facility] [place] [address] Hematocrit (Bld) [Volume fraction] 28.4 % Low 36.0-48.0 [facility] Comment on above: Performed By: #### L [id number] ####[facility] (BEAKER)[address] [place] [address] Hemoglobin (Bld) [Mass/Vol] 9.1 g/dL Low 12.0-15.0 [facility] Comment on above: Performed By: #### L [id number] ####[facility] (BEAKER)[address] [place] [address] MCH (RBC) [Entitic mass] 29.7 pg Normal 27.0-33.0 [facility] Comment on above: Performed By: #### L [id number] ####[facility] (BEAKER)[address] [place] [address] MCV (RBC) [Entitic vol] 92.8 fL Normal 82.0-98.0 [facility] Comment on above: Performed By: #### L [id number] ####[facility] ([facility])[address] [place] [address] PLATELETS (10*3/UL) IN BLOOD AUTOMATED COUNT 180 10*3/uL Normal 150-400 [facility] Comment on above: Performed By: #### L [id number] ####[facility] ([facility])[address] [place] [address] RBC (Bld) [#/Vol] 3.06 10*6/uL Low 3.80-5.00 [facility] Comment on above: Performed By: #### L [id number] ####[facility] ([facility])[address] [place] [address] WBC (Bld) [#/Vol] 5.62 10*3/uL Normal 4.00-10.60 [facility] Comment on above: Performed By: #### L [id number] ####[facility] ([facility])[address] [place] [address] CYSTIC FIBROSIS EXPANDED CHIARA IANT PANELon 03-15-2024 CYSTIC FIBROSIS 5T VARIANT Negative Normal [facility] Comment on above: Performed By: #### L [id number] ####[facility] ([facility])[address] [place] [address] CYSTIC FIBROSIS EXPANDED VARIANT PANEL INTERP 0 variants Normal [facility] Comment on above: Result Comment: None [...] consider ordering Cystic Fibrosis(CFTR) Sequencing and Deletion/Duplication ([facility] test [id number]) to detect rare CFTR variants not tested by this assay. Ifthere is a family history of CF, please contact an [facility] geneticcounselor ([phone]) and provide the specific familialvariants to confirm they were tested by this assay.Ethnicity Classic CF Patients with No Detectable Severe Variants by CF Variant PanelAfrican Zimbabwean 5%Ashkenazi Scientologist 1% Zimbabwean 20% 1% Zimbabwean 4%Specimen: Whole BloodSymptoms: YesFamily History: UnknownThis result has been reviewed and approved by Francia Vasquez M.D.BACKGROUND INFORMATION: Cystic Fibrosis (CFTR), Expanded Variant PanelCHARACTERISTICS OF CYSTIC FIBROSIS (CF): Chronic sinopulmonarydisease, gastrointestinal malabsorption/pancreatic insufficiency,and obstructive azoospermia. Symptoms of CFTR-related disordersinclude: pancreatitis, bilateral absence of the vas deferens,nasal polyposis, and bronchiectasis.INCIDENCE: 1 in 2,300 Ashkenazi Scientologist, 1 in 2,500 Caucasians, 1in 13,500 Hispanics, [...] provided for the 23 recommended ACMG variants.c.1A>G, p.Wds0Fph; c.[id number], Exons 2-3del;c.115C>T, p.Gln39X; c.178G>T, p.Glu60X; c.200C>T, p.Rcq91Wfj;c.223C>T, p.Arg75X; c.254G>A (Legacy G85E), p.Svg83Bon;c.262_263delTT, p.Rhs36ZhewhK09 (aka p.Fvm96gb); c.273+1G>A,Intronic; c.273+3A>C, Intronic; c.274-1G>A, Intronic; c.274G>A,p.Nzv73Lwi; c.274G>T, p.Glu92X; c.292C>T, p.Gln98X; c.313delA,p.Bhd328OjutvG0 (aka p.Jmi411iv); c.325_327delTATinsG,p.Ztl508OubeaP3 (aka p.Mkb169fg); c.328G>C, p.Itu462Xgn; c.349C>T,p.Ncf081Msl; c.350G>A (Legacy R117H), p.Nov537Itg; c.366T>A,p.Dyz446Z; c.442delA, p.Veh343AjqpbV1 (aka p.Zih452zb); c.489+1G>T(Legacy 621+1G>T), Intronic; c.531delT, p.Nkd530RizhvH17 (akap.Vtn502yw); c.532G>A, p.Qup469Lcl; c.579+1G>T (Legacy 711+1G>T),Intronic; c.579+5G>A, Intronic; c.579+3A>G, Intronic; c.580-1G>T,Intronic; c.595C>T, p.Aeb565Mrz; c.613C>T, p.Dsy532Uah; c.617T>G,p.Kso336Eft; c.658C>T, p.Myy809B; c.680T>G, p.Mvl429Aoc;c.722_743del, p.Btv954YelijV00 (aka p.Iqk401ao); c.803delA,p.Gxv434BhudpO72 (aka p.Hlv860st); c.805_806delAT, p.Vgj753ThssuX6(aka p.Qgi498yq); c.935_937delTCT, p.Fhf792xrm; c.948delT,p.Kwa514DddxmR88 (aka p.Orh880kp); c.988G>T, p.Dcp712H; c.1000C>T(Legacy R334W), p.Wzb258Awa; c.1007T>A, p.Bnp114Fmd; c.1021T>C,p.Nbl541Rlq; c.1021_1022dupTC, p.Rbm110NjzlhR66 (aka p.Nuf574vv);c.1040G>A, p.Cit800Phf; c.1040G>C (Legacy R347P), p.Yxm288Mtc;c.1055G>A, p.Lzw866Wnj; c.1081delT, p.Dbb418LalaeN9 (akap.Mvg616zw); c.1116+1G>A, Intronic; c.1130dupA, p.Ctu904TzeioM7(aka p.Tpf164kb); c.1155_1156dupTA, p.Qfd526IcmzwJ2 (akap.Wok584jv); c.1202G>A, p.Loq755M; c.1203G>A, p.Atj347T;c.1209+1G>A, Intronic; c.1327_1330dupGATA, p.Rkt257CunhtR8 (akap.Vpw116ky); c.1340delA, p.Ezj171VeyfyG5 (aka p.Kbi486mr);c.1364C>A (Legacy A455E), p.Emw527Leh; c.1393-1G>A, Intronic;c.1397C>A, p.Dkx254C; c.1397C>G, p.Dnf380F; c.1400T>C,p.Aak584Djg; c.1418delG, p.Epm129CtjtlJ89 (aka p.Dwx983pz);c.1438G>T, p.Yos588Prl; c.1466C>A, p.Qgj340S; c.1475C>T,p.Psp055Zlj; c.1477C>T, p.Awk768Q; c.1519_1521delATC (WjzgrdL239mjg), p.Qut785zsn; c.1521_1523delCTT (Legacy F860psz),p.Qya647lot; c.1545_1546delTA, p.Bki591U; c.1558G>T, p.Vkt067Dmw;c.1572C>A, p.Leg265E; c.1573C>T, p.Tup398T; c.1585-1G>A (Ornckw1366-1T>A), Intronic; c.1585-8G>A, Intronic; c.1624G>T (LlffvoP808D), p.Srs327V; c.1645A>C, p.Evj636Cfl; c.1646G>A, p.Fiv616Rin;c.1647T>G, p.Bmc588Ega; c.1651G>A, p.Nrp322Mhg; c.1652G>A (OrhjkoC675Q), p.Ufq170Uav; c.1654C>T, p.Biq877A; c.1657C>T (ZpseemV524R), p.Vmz372Y; c.1675G>A, p.Rmk309Bdr; c.1679G>A, p.Vzv713Yji;c.1679G>C (Legacy R560T), p.Scm145Kdp; c.1680-886A>G, Intronic;c.1680-1G>A, Intronic; c.1703delT, p.Pot092UsxshE4 (akap.Nsy911oj); c.1705T>G, p.Whl264Wkb; c.1721C>A, p.Ftf988Ixc;c.1753G>T, p.Fmn389W; c.1766+1G>A (Legacy 1898+1G>A), Intronic;c.1766+3A>G, Intronic; c.1792_1798delAAAACTA, p.Qbf436GbghnU00(aka p.Utl414mr); c.1911delG, p.Mpe404OkzroO17 (aka p.Lfe157dg);c.1923_1931del9insA, p.Owh241YzaaxP0 (aka p.Vfn429of);c.1972_1984del13insAGAAA, p.Xht916AtsqzC9 (aka p.Whf907lb);c.1975delA, p.Gpj217KqchbV0 (aka p.Ynm849xd); c.2011delT,p.Fqd821B; c.2050_2del, p.Mkt589IpobcE7; c.2050_elinsG(aka c.205_elinsG), p.Krg679UpcbfX83; c.2delA (Whlujc1182vivV), p.Kdu783ZnxizK95; c.2125C>T, p.Vta237G; c.2128A>T,p.Vzl527R; c.2175dupA, p.Vxw335LvypvF6 (aka p.Ryh544lp);c.2195T>G, p.Zvo352F; c.2215delG, p.Zhh055OvkrsV69 (akap.Qwv602hj); c.2290C>T, p.Ait739Dns; c.2453delT, p.Dyf819WjimqS3(aka p.Pul970ts); c.2464G>T, p.Cqq979P; c.2490+1G>A, Intronic;c.2491G>T, p.Ivq402T; c.2537G>A, p.Dje610Q; c.2538G>A, p.Qgi323U;c.2551C>T, p.Klv122C; c.2583delT, p.Mce934PulteM1 (akap.Kqr553xv); c.2657+5G>A (Legacy 2789+5G>A), Intronic; c.2668C>T,p.Ulo686X; c.2737_2738insG, p.Xge621V; c.2780T>C, p.Xqk338Ioh;c.2810dupT, p.Jqr883HgapgM89 (aka p.Grj185os); c.2834C>T,p.Hww040Ciy; c.2875delG, p.Bkh723GzwzkU6 (aka p.Ccm368rg);c.2908G>C, p.Yqn633Ecd; c.2988+1G>A (Legacy 3120+1G>A), Intronic;c.2988G>A, Intronic; c.2989-1G>A, Intronic; c.3039delC,p.Vyq5384IwvpyQ1 (aka p.Xsf9237mh); c.3067_3072delATAGTG,p.Mxg6927_Mow7643kzp (aka I0664_P9465alg); c.3140-26A>G, Intronic;c.3194T>C, p.Lcl9183Dnd; c.3196C>T, p.Kmp1142Uzt; c.3197G>A,p.Hyt7476Jvi; c.3230T>C, p.Awf4343Ika; c.3266G>A, p.Dpf4582J;c.3276C>A, p.Uqd1385U; c.3276C>G, p.Wft2152N; c.3302T>A,p.Nyi2976Gfj; c.3310G>T, p.Ixb5532V; c.3472C>T, p.Dcn5476B;c.3484C>T (Legacy Q9755R), p.Lhm1684H; c.3528delC (Yzedyg1805yczF), p.Bfc4478GaemrM75 (aka p.Ned0379ok);c.3532_3535dupTCAA, p.Ovr3114GjkvxD48 (aka p.Frj0018ax);c.3587C>G, p.Atz5017U; c.3611G>A, p.Zae3434S; c.3612G>A,p.Jbx5556H; c.3659delC, p.Kuh4433XrvyxQ9 (aka p.Xci9772um);c.3691delT, p.Xlb5329JnuqfJ7 (aka p.Nrj7169ue); c.3712C>T,p.Ghz6124H; c.3718-8757C>T (Legacy 3849+10kbC>T), Intronic;c.3731G>A, p.Mvy3811Tlp; c.3744delA, p.Jvy2365XlyeoM4 (akap.Qrh5373qv); c.3752G>A, p.Xoa6745Jos; c.3763T>C, p.Mbt2594Cfk;c.3764C>A, p.Vnl5529M; c.3773dupT, p.Rfo1996UeljvQ1 (akap.Awm6763gj); c.3846G>A (Legacy D6997I), p.Hzt9023W; c.3873+1G>A,Intronic; c.3909C>G (Legacy H2282P), p.Fni5259Fep; c.3937C>T,p.Ijn6055Z; c.3964-78_4242+577del, Exons 22-23del; c.4025_4028dup,p.Wnj2046YhwugK75 (aka p.R0257hh); c.4046G>A, p.Ahv0228Eav;c.4077_4080delTGTTinsAA, p.Jai8336tzU1 (aka p.Evv5865fa);c.4111G>T, p.Mrj9619X; c.4251delA, p.Pom2229DoczrM60 (akap.Eri6457yo). The IVS-8 variant, c.1210-12[5], will be reportedonly when R117H is detected or in patients who are reported to besymptomatic.CLINICAL SENSITIVITY: Ashkenazi Scientologist 96 percent; 92percent; 80 percent; 78 percent; AsianAmerican 55 percent.METHODOLOGY: Matrix-Assisted Laser Desorption Ionization-Time ofFlight (MALDI-TOF)Analytical sensitivity and specificity: 99 percent.LIMITATIONS: Diagnostic errors can occur due to rare sequencevariations. Only the CFTR variants listed above and 5T variantwill be interrogated.This test was developed and its performance characteristicsdetermined by [facility]. It has not been cleared orapproved by the U.S. Food and Drug Administration. This test wasperformed in a CLIA-certified laboratory and is intended forclinical purposes.Counseling and informed consent are recommended for genetictesting. Consent forms are available online.Performed By: [facility] [place], [place] [address]Laboratory Director: Tip Hathaway MD, PhDCLIA Number: [id number] Performed By: #### L [id number] ####[facility] ([facility])[address] [place] [address] CYSTIC FIBROSIS, ALLELE 1 Negative Normal [facility] Comment on above: Performed By: #### L [id number] ####[facility] ([facility])[address] [place] [address] CYSTIC FIBROSIS, ALLELE 2 Negative Normal [facility] Comment on above: Performed By: #### L [id number] ####[facility] ([facility])[address] [place] [address] HEMOGLOBIN AND HEMATOCRIT, B LOODon 03-15-2024 Hematocrit (Bld) [Volume fraction] 30.1 % Low 36.0-48.0 [facility] Comment on above: Performed By: #### L [id number] ####[facility] ([facility])[address] [place] [address] Hemoglobin (Bld) [Mass/Vol] 9.5 g/dL Low 12.0-15.0 [facility] Comment on above: Performed By: #### L [id number] ####[facility] ([facility])[address] [place] [address] Hematocrit (Bld) [Volume fraction] 30.3 % Low 36.0-48.0 [facility] Comment on above: Performed By: #### L [id number] ####[facility] ([facility])[address] [place] [address] Hemoglobin (Bld) [Mass/Vol] 9.7 g/dL Low 12.0-15.0 [facility] Comment on above: Performed By: #### L [id number] ####[facility] ([facility])[address] [place] [address] MAGNESIUMon 03-15-2024 Magnesium [Mass/Vol] 1.5 mg/dL Low 1.9-2.7 [facility] Comment on above: Performed By: #### L [id number] ####[facility] ([facility])[address] [place] [address] MRSA/MSSA DNA NASALon 2023 MRSA DNA Negative Normal Negative [facility] Comment on above: Order Comment: Testi [...] preclude nasal colonization. Performed By: #### L [id number] ####[facility] ([facility])[address] [place] [address] MSSA DNA Negative Normal Negative [facility] Comment on above: Order Comment: Testi [...] preclude nasal colonization. Performed By: #### L [id number] ####[facility] ([facility])[address] [place] [address] PHOSPHORUSon 03-15-2024 Magnesium [Mass/Vol] 2.1 mg/dL Normal 1.9-2.7 [facility] Comment on above: Performed By: #### L [id number] ####[facility] [facility] ([facility]AKER)[address] [place] [address] Performed By: #### L [id number] ####[facility] ([facility] [place] [address] Magnesium [Mass/Vol] 2.8 mg/dL Normal 2.5-5.0 [facility] Comment on above: Performed By: #### L [id number] ####[facility] ([facility] [place] [address] TROPONIN Ion 03-15-2024 Troponin I.cardiac [Mass/Vol] 0.02 ng/mL Normal 0.00-0.04 [facility] Comment on above: Performed By: #### L [id number] ####[facility] ([facility])[address] [facility] [place] [address] Troponin I.cardiac [Mass/Vol] 0.02 ng/mL Normal 0.00-0.04 [facility] Comment on above: Performed By: #### L [id number] ####[facility] ([facility])[address] [place] [address] Troponin I.cardiac [Mass/Vol] 0.01 ng/mL Normal 0.00-0.04 [facility] Comment on above: Performed By: #### L [id number] ####[facility] ([facility])[address] [place] [address] Troponin I.cardiac [Mass/Vol] 0.03 ng/mL Normal 0.00-0.04 [facility] Comment on above: Performed By: #### L [id number] ####[facility] ([facility] [place] [address] Troponin I.cardiac [Mass/Vol] 0.07 ng/mL High 0.00-0.04 [facility] Comment on above: Performed By: #### L [id number] ####[facility] [place] [address] 1,8-XWXK-Q-GLUCANon 03-14-20 24 (1,3)-MGOK-N-IDMXSX 47 pg/mL Normal [facility] Comment on above: Performed By: #### L [id number] ####[facility] ([facility])[address] [place] [address] (1,3)-RQRW-K-KOUSTQ INTERPRETATION Negative Normal Negative [facility] Comment on above: Result Comment: INTE RPRETIVE INFORMATION: (1,3)-wuwl-W-seacaa (Fungitell) Less than 31 pg/mL ................... Negative 31-59 pg/mL .......................... Negative 60-79 pg/mL .......................... Indeterminate Greater than or equal to 80 pg/mL .... PositiveThe Fungitell test is indicated for presumptive diagnosisof fungal infection and should be used in conjunction withother diagnostic procedures. This test does not detectcertain fungal species such as Cryptococcus, which producevery low levels of (1,3)-xoel-E-pvociu. This test will notdetect the zygomycetes, such as Absidia, Mucor, andRhizopus, which are not known to produce(1,3)-rlsn-R-npwyar. In addition, the yeast phase ofBlastomyces dermatitidis produces little(1,3)-ngtw-U-vsybzk and may not be detected by the assay.Performed By: [employer] [place], [place] [address]Dvjkzkwirm Director: Tip Hathaway MD, PhDCLIA Number: [id number] Performed By: #### L [id number] ####[facility] ([facility] [place] [address] 30on 03-14-2024 30 Normal [facility] 30 Normal [facility] 30 The patient is Moder ately Unstable - Medium risk of patient condition declining or worsening The patient's goals for the shift include NABIL The clinical goals for the shift include Reduce Bleeding and VSS Normal [facility] AFB CULTUREon 03-14-2024 AFB CULTURE No growth at 42 days [facility] Comment on above: Performed By: #### L [id number] ####[facility] (BEAKER)[address] [place] [address] AFB STAIN No acid fast bacilli seen Normal [facility] Comment on above: Performed By: #### L [id number] ####[facility] (BEAKER)[address] [place] [address] ALLERGEN ASPERGILLUS FUMIGAT USon 03-14-2024 ALLERGEN MICROORGANISM: ASPERGILLUS FUMIGATUS IGE (KU/L) <0.10 Normal <=0.34 [facility] Comment on above: Result Comment: Perf ormed By: [employer] [place], [place] [address]Roxhyclpap Director: Tip Hathaway MD, PhDCLIA Number: [id number] Performed By: #### L [id number] ####[facility] ([facility])[address] [place] [address] ALLERGEN INTERPRETATIONon ALLERGEN INTERPRETATION See Note Normal [facility] Comment on above: Result Comment: REFE [...] rule outclinical allergy or even anaphylaxis.Performed By: [employer] [place], [place] [address]Ijxdktkcse Director: Tip Hathaway MD, PhDCLIA Number: [id number] Performed By: #### L [id number] ####[facility] ([facility])[address] [place] [address] APTTon 03-14-2024 ACTIVATED PARTIAL THROMBOPLASTIN TIME IN PPP BY COAGULATION ASSAY 26.4 Seconds Normal 25.0-35.0 [facility] Comment on above: Result Comment: Clin ical significance of the APTT is questionable in the presence of heparin. Performed By: #### L [id number] ####[facility] (BEAKER)[address] [place] [address] ASPERGILLUS GALACTOMANNAN AN TIGENon 03-14-2024 ASPERGILLUS GALACTOMANNAN ANTIGEN, SERUM Negative Normal Negative [facility] Comment on above: Result Comment: INTE RPRETIVE INFORMATION: Aspergillus Galactomannan Antigen by EIANegative results do not exclude the diagnosis of invasiveaspergillosis. A single positive test result (index equalto or greater than 0.5) should be clinically correlatedby testing a separate serum specimen because many agents(e.g. foods, antibiotics) may cross-react with the test.If invasive aspergillosis is suspected in high-riskpatients, serial sampling is recommended.Performed By: [employer] [place], [place] [address]Usjmfqvpeu Director: Tip Hathaway MD, PhDCLIA Number: [id number] Performed By: #### L [id number] ####[facility] ([facility])[address] [place] [address] ASPERGILLUS GALACTOMANNAN INDEX 0.03 Normal [facility] Comment on above: Performed By: #### L [id number] ####[facility] ([facility])[address] [place] [address] ASPERGILLUS GALACTOMANNAN ANTIGEN, SERUM Negative Normal Negative [facility] Comment on above: Result Comment: INTE RPRETIVE INFORMATION: Aspergillus Galactomannan Antigen by EIANegative results do not exclude the diagnosis of invasiveaspergillosis. A single positive test result (index equalto or greater than 0.5) should be clinically correlatedby testing a separate serum specimen because many agents(e.g. foods, antibiotics) may cross-react with the test.If invasive aspergillosis is suspected in high-riskpatients, serial sampling is recommended.Performed By: [employer] [place], [place] [address]Laboratory Director: Tip Hathaway MD, PhDCLIA Number: [id number] Performed By: #### L [id number] ####[facility] ([facility])[address] [place] [address] ASPERGILLUS GALACTOMANNAN INDEX 0.03 Normal [facility] Comment on above: Performed By: #### L [id number] ####[facility] ([facility])[address] [place] [address] BASIC METABOLIC PANELon 02-15 Anion gap [Moles/Vol] 11 mmol/L Normal 7-20 [facility] Comment on above: Performed By: #### L [id number] ####[facility] ([facility])[address] [place] [address] Calcium [Mass/Vol] 7.7 mg/dL Low 8.6-10.3 [facility] Comment on above: Performed By: #### L [id number] ####[facility] ([facility] [place] [address] Chloride [Moles/Vol] 106 mmol/L Normal 98-107 [facility] Comment on above: Performed By: #### L [id number] ####[facility] ([facility] [place] [address] CO2 [Moles/Vol] 26 mmol/L Normal 21-31 [facility] Comment on above: Performed By: #### L [id number] ####[facility] ([facility])[address] [place] [address] Creatinine [Mass/Vol] 0.73 mg/dL Normal 0.60-1.20 [facility] Comment on above: Performed By: #### L [id number] ####[facility] ([facility])[address] [place] [address] GLOMERULAR FILTRATION RATE ML/MIN/1.73 SQ M.PREDICTED 91.2 mL/min/1.73m*2 Normal >60.0 [facility] Comment on above: Result Comment: The [facility]???s estimated glomerular filtration rate (eGFR) will [...] of individuals. Performed By: #### L [id number] ####[facility] ([facility])[address] [place] [address] Glucose [Mass/Vol] 104 mg/dL High 70-100 [facility] Comment on above: Performed By: #### L [id number] ####[facility] ([facility])[address] [place] [address] Potassium [Moles/Vol] 4.0 mmol/L Normal 3.5-5.1 [facility] Comment on above: Performed By: #### L [id number] ####[facility] ([facility])[address] [place] [address] Sodium [Moles/Vol] 139 mmol/L Normal 136-145 [facility] Comment on above: Performed By: #### L [id number] ####[facility] (BEAKER)[address] [facility] [place] [address] Urea nitrogen [Mass/Vol] 17 mg/dL Normal 02-07 [facility] Comment on above: Performed By: #### L [id number] ####[facility] (BEAKER)[address] [place] [address] UREA NITROGEN/CREATININE (MASS RATIO) IN SER/PLAS 23.3 Normal [facility] Comment on above: Performed By: #### L [id number] ####[facility] [facility] [place] [address] BLOOD CULTUREon 03-14-2024 Bacteria identified Cx Nom (Bld) No growth at 5 days [facility] Comment on above: Performed By: #### L [id number] ####[facility] ([facility])[address] [place] [address] Order Comment: From a different site than #1. BODY FLUID CELL DIFFERENTIAL on 03-14-2024 BASOPHILS TOTAL PER COUNTED LEUKOCYTES IN BODY FLUID BY MANUAL COUNT Normal [facility] Comment on above: Order Comment: Diffe rential performed on cytospin Performed By: #### L [id number] ####[facility] ([facility])[address] [place] [address] CELLS COUNTED TOTAL (#) IN BODY FLUID 100 Normal [facility] Comment on above: Order Comment: Diffe rential performed on cytospin Performed By: #### L [id number] ####[facility] (BEAKER)[address] [place] [address] EOSINOPHILS TOTAL PER COUNTED LEUKOCYTES IN BODY FLUID BY MANUAL COUNT Normal [facility] Comment on above: Order Comment: Diffe rential performed on cytospin Performed By: #### L [id number] ####[facility] (BEAKER)[address] [place] [address] LYMPHOCYTES TOTAL PER COUNTED LEUKOCYTES IN BODY FLUID BY MANUAL COUNT 13 Normal [facility] Comment on above: Order Comment: Diffe rential performed on cytospin Performed By: #### L [id number] ####[facility] (BEAKER)[address] [place] [address] MESOTHELIAL CELLS TOTAL PER COUNTED LEUKOCYTES IN BODY FLUID BY MANUAL COUN Normal [facility] Comment on above: Order Comment: Diffe rential performed on cytospin Performed By: #### L [id number] ####[facility] (BEAKER)[address] [place] [address] MONOCYTES+MACROPHAGES TOTAL PER COUNTED LEUKOCYTES IN BODY FLUID BY MANUAL 36 Normal [facility] Comment on above: Order Comment: Diffe rential performed on cytospin Performed By: #### L [id number] ####[facility] (BEAKER)[address] [place] [address] NEUTROPHILS TOTAL PER COUNTED LEUKOCYTES IN BODY FLUID BY MANUAL COUNT 51 Normal [facility] Comment on above: Order Comment: Diffe rential performed on cytospin Performed By: #### L [id number] ####[facility] (BEAKER)[address] [place] [address] OTHER CELLS BODY FLUID (MANUAL) Normal [facility] Comment on above: Order Comment: Diffe rential performed on cytospin Performed By: #### L [id number] ####[facility] (BEAKER)[address] [place] [address] CBC WITH AUTO DIFFERENTIALon 03-14-2024 Erythrocyte distribution width (RBC) [Ratio] 14.7 % Normal 11.5-15.0 [facility] Comment on above: Performed By: #### L [id number] ####[facility] (BEAKER)[address] [place] [address] ERYTHROCYTE MEAN CORPUSCULAR HEMOGLOBIN CONCENTRATION (G/DL) BY AUTOMATED 31.6 g/dL Low 32.0-35.0 [facility] Comment on above: Performed By: #### L [id number] ####[facility] (BEAKER)[address] [place] [address] Hematocrit (Bld) [Volume fraction] 34.2 % Low 36.0-48.0 [facility] Comment on above: Performed By: #### L [id number] ####[facility] (BEAKER)[address] [place] [address] Hemoglobin (Bld) [Mass/Vol] 10.8 g/dL Low 12.0-15.0 [facility] Comment on above: Performed By: #### L [id number] ####[facility] (BEAKER)[address] [place] [address] MCH (RBC) [Entitic mass] 29.8 pg Normal 27.0-33.0 [facility] Comment on above: Performed By: #### L [id number] ####[facility] (BEAKER)[address] [place] [address] MCV (RBC) [Entitic vol] 94.5 fL Normal 82.0-98.0 [facility] Comment on above: Performed By: #### L [id number] ####[facility] ([facility] [place] [address] NRBC (PER 100 WBCS) BY AUTOMATED COUNT 0.0 % Normal 0 [facility] Comment on above: Performed By: #### L [id number] ####[facility] (BEAKER)[address] [place] [address] PLATELETS (10*3/UL) IN BLOOD AUTOMATED COUNT 218 10*3/uL Normal 150-400 [facility] Comment on above: Performed By: #### L [id number] ####[facility] (BEAKER)[address] [place] [address] RBC (Bld) [#/Vol] 3.62 10*6/uL Low 3.80-5.00 [facility] Comment on above: Performed By: #### L [id number] ####[facility] (BEAKER)[address] [place] [address] WBC (Bld) [#/Vol] 18.33 10*3/uL High 4.00-10.60 [facility] Comment on above: Performed By: #### L [id number] ####[facility] (BEAKER)[address] [place] [address] CONSULTon 03-14-2024 CONSULT Normal [facility] FUNGAL CULTUREon 03-14-2024 FUNGAL SMEAR No yeast or fungal e lements seen Normal [facility] Comment on above: Performed By: #### L [id number] ####[facility] ([facility])[address] [place] [address] HEMOGLOBIN AND HEMATOCRIT, B LOODon 03-14-2024 Hematocrit (Bld) [Volume fraction] 31.9 % Low 36.0-48.0 [facility] Comment on above: Performed By: #### L [id number] ####[facility] ([facility])[address] [place] [address] Hemoglobin (Bld) [Mass/Vol] 10.3 g/dL Low 12.0-15.0 [facility] Comment on above: Performed By: #### L [id number] ####[facility] ([facility])[address] [place] [address] HPon 03-14-2024 HP Normal [facility] IGG, IGA, IGMon 03-14-2024 Magnesium [Mass/Vol] 1340 mg/dL Normal 591-1540 [facility] Comment on above: Performed By: #### L [id number] ####[facility] ([facility])[address] [place] [address] Magnesium [Mass/Vol] 517 mg/dL High 60-413 [facility] Comment on above: Performed By: #### L [id number] ####[facility] ([facility])[address] [place] [address] Magnesium [Mass/Vol] 95.3 mg/dL Normal 54-285 [facility] Comment on above: Performed By: #### L [id number] ####[facility] ([facility])[address] [place] [place] [address] IMMUNOGLOBULIN Sky[employer] IMMUNOGLOBIN E 32 IU/mL Normal 0-100 [facility] Comment on above: Result Comment: Test Performed by [employer] [address] [place] [address] - Released 03/14/2024 23:25 Performed By: #### L [id number] ####[facility] [id number] [place] [address] LACTIC ACID WITH 4 HOUR REFL EXon 03-14-2024 LACTATE (MMOL/L) IN SER/PLAS 0.3 mmol/L Low 0.5-2.2 [facility] Comment on above: Performed By: #### L [id number] ####[facility] [place] [address] MAGNESIUMon 03-14-2024 Magnesium [Mass/Vol] 1.5 mg/dL Low 1.9-2.7 [facility] Comment on above: Performed By: #### L [id number] ####[facility] ([facility])[address] [place] [address] MANUAL DIFFERENTIALon 2023 BASOPHILS (10*3/UL) IN BLOOD BY CALCULATION 0.04 10*3/uL Normal 0.00-0.20 [facility] Comment on above: Performed By: #### L [id number] ####[facility] ([facility])[address] [place] [address] BASOPHILS/100 LEUKOCYTES IN BLOOD BY AUTOMATED COUNT 0.2 % Normal 0.0-1.0 [facility] Comment on above: Performed By: #### L [id number] ####[facility] ([facility])[address] [place] [address] EOSINOPHILS (10*3/UL) IN BLOOD BY CALCULATION 0.00 10*3/uL Normal 0.00-0.50 [facility] Comment on above: Performed By: #### L [id number] ####[facility] [place] [address] EOSINOPHILS/100 LEUKOCYTES IN BLOOD BY AUTOMATED COUNT 0.0 % Normal 0.0-6.0 [facility] Comment on above: Performed By: #### L [id number] ####[facility] ([facility] [place] [address] IMMATURE GRANULOCYTES (10*3/UL) IN BLOOD BY CALCULATION 0.09 10*3/uL Normal 0.00-0.20 [facility] Comment on above: Performed By: #### L [id number] ####[facility] ([facility] [place] [address] IMMATURE GRANULOCYTES/100 LEUKOCYTES IN BLOOD BY AUTOMATED COUNT 0.5 % Normal 0.0-1.0 [facility] Comment on above: Performed By: #### L [id number] ####[facility] ([facility])[address] [place], [place] [address] LYMPHOCYTES (10*3/UL) IN BLOOD BY CALCULATION 0.24 10*3/uL Low 1.20-4.00 [facility] Comment on above: Performed By: #### L [id number] ####[facility] ([facility])[address] [place], [place] [address] LYMPHOCYTES/100 LEUKOCYTES IN BLOOD BY AUTOMATED COUNT 1.3 % Low 20.0-45.0 [facility] Comment on above: Performed By: #### L [id number] ####[facility] ([facility])[address] [place], [place] [address] MONOCYTES (10*3/UL) IN BLOOD BY CALCUATION 0.97 10*3/uL Normal 0.10-1.00 [facility] Comment on above: Performed By: #### L [id number] ####[facility] ([facility])[address] [place], [place] [address] MONOCYTES/100 LEUKOCYTES IN BLOOD BY AUTOMATED COUNT 5.3 % Normal 5.0-12.0 [facility] Comment on above: Performed By: #### L [id number] ####[facility] (BEAKER)[address] [place], [place] [address] NEUTROPHILS (10*3/UL) IN BLOOD BY CALCULATION 17.0 10*3/uL High 1.6-7.6 [facility] Comment on above: Performed By: #### L [id number] ####[facility] (BEAKER)[address] [place] [address] NEUTROPHILS/100 LEUKOCYTES IN BLOOD BY AUTOMATED COUNT 92.7 % High 40.0-72.0 [facility] Comment on above: Performed By: #### L [id number] ####[facility] (JACK)[address] [place] [address] MYCOPLASMA PNEUMONIAE ANTIBO DY, IGMon 03-14-2024 MYCOPLASMA PNEUMONIAE IGM 0.43 U/L Normal <=0.76 [facility] Comment on above: Result Comment: INTE [...] for more than 12 months post-infection.Performed By: [employer] [place] [id number] Director: Tip Hathaway MD, PhDCLIA Number: [id number] Performed By: #### L [id number] ####[facility] [place] [address] MYCOPLASMA PNEUMONIAE PCRon 03-14-2024 MYCOPLASMA PNEUMONIAE PCR Not detected Normal [facility] Comment on above: Result Comment: NOT DETECTED - A negative result does not rule out thepresence of PCR inhibitors in the patient specimen orassay specific nucleic acid in concentrations below thelevel of detection by the assay.INTERPRETIVE INFORMATION: Mycoplasma pneumoniae by PCRThis test was developed and its performance characteristicsdetermined by [employer]. It has not been cleared orapproved by the [place] Food and Drug Administration. This test wasperformed in a CLIA certified laboratory and is intended forclinical purposes.Performed By: [employer] [place], [place] [address]Ubgtogrezj Director: Tip Hathaway MD, PhDCLIA Number: [id number] Performed By: #### L [id number] ####[facility] (BEAKER)[address] [place] [address] MYCOPLASMA PNEUMONIAE SOURCE Bronchial wash Normal [facility] Comment on above: Performed By: #### L [id number] ####[facility] (BEAKER)[address] [place] [address] NON-INSIGHT LEADER CYTOLOGY - CELLULAR EXAMon 03-14-2024 LAB AP [facility] REPORT [facility] Comment on above: Result Comment: Non- gynecologic Cytology Case: [id number] Provider: Quinn Adler MD Collected: 03/14/2024 1535Ordering Location: [facility] Intensive Received: 03/15/2024 0721 CarePathologist: DAVID Reddypecimen: Bronchoalveolar lavage, right lower lobe Performed By: #### L [id number] ####[facility] (BEAKER)[address] [place] [address] LAB AP CLINICAL INFORMATION Hemoptysis Normal [facility] Comment on above: Performed By: #### L [id number] ####[facility] (BEAKER)[address] [place] [address] LAB AP GROSS DESCRIPTION [facility] Comment on above: Result Comment: 27 m L cloudy, red mucoid fluid Performed By: #### L [id number] ####[facility] (BEAKER)[address] [place] [address] LAB AP REPORT FINAL DIAGNOSIS NARRATIVE Normal [facility] Comment on above: Result Comment: A. L óscar, right lower lobe, bronchoalveolar lavage: - Negative for malignancy - Marked acute inflammation and bacteria present. Performed By: #### L [id number] ####[facility] (BEAKER)[address] [place] [address] PATHOLOGY REVIEWon PATHOLOGY REVIEW Electronically pete d by Eboni Celis MD on 03/22/24 at 12:41 PM. Normal [facility] Comment on above: Performed By: #### L [id number] ####[facility] (BEAKER)[address] [place] [address] PHOSPHORUSon 03-14-2024 Magnesium [Mass/Vol] 3.7 mg/dL Normal 2.5-5.0 [facility] Comment on above: Performed By: #### L [id number] ####[facility] (BEAKER)[address] [place] [address] PNEUMOCYSTIS SMEAR BY DFAon 03-14-2024 PNEUMOCYSTIS SMEAR, DFA Negative Normal Negative [facility] Comment on above: Performed By: #### L [id number] ####[facility] ([facility])[address] [facility] [place] [address] PROTIME-INRon 03-14-2024 INR IN PPP BY COAGULATION ASSAY 1.08 Normal 0.90-1.10 [facility] Comment on above: Result Comment: ACCC [...] CHEST 1995;108:[id number]-246S. Performed By: #### L [id number] ####[facility] ([employer])[address] [place] [address] PROTHROMBIN TIME (PT) IN PPP BY COAGULATION ASSAY 14.0 Seconds Normal 12.3-14.8 [facility] Comment on above: Performed By: #### L [id number] ####[facility] ([facility])[address] [facility] [place] [address] RESPIRATORY CULTUREon 2023 Bacteria identified Cx Nom (Unsp spec) Normal [facility] Comment on above: Result Comment: >10, 000 CFU/mL of Colonies Consistent with Upper Respiratory Li Performed By: #### L [id number] ####[facility] ([facility])[address] [facility] [place] [address] GRAM STAIN RESULT Normal [facility] Comment on above: Result Comment: Poly morphonuclear leukocytesGram positive cocci in pairsGram negative bacilliCytocentrifuge sample Performed By: #### L [id number] ####[facility] ([facility])[address] [place] [address] TRIGLYCERIDESon 03-14-2024 FASTING? unknown Normal [facility] Comment on above: Order Comment: Monit or triglycerides while patient is on propofol. Consult Nutrition if greater than 500 mg/dL. Performed By: #### L AB134 ####[facility] ([facility])[address] [place] [address] Magnesium [Mass/Vol] 84 mg/dL Normal 40-149 [facility] Comment on above: Order Comment: Monit or triglycerides while patient is on propofol. Consult Nutrition if greater than 500 mg/dL. Result Comment: TRIG LYCERIDE REFERENCE RANGE:20 YEARS AND OLDER CARDIOVASCULAR RISKLESS THAN 150 mg/dL LOW OHTU801 TO 199 mg/dL BORDERLINE LGYC253 mg/dL AND GREATER HIGH RISK Performed By: #### L AB134 ####[facility] ([facility])[address] [place] [address] TROPONIN Ion 03-14-2024 Troponin I.cardiac [Mass/Vol] 0.05 ng/mL High 0.00-0.04 [facility] Comment on above: Performed By: #### L [id number] ####[facility] ([facility])[address] [place] [address] Troponin I.cardiac [Mass/Vol] 0.06 ng/mL High 0.00-0.04 [facility] Comment on above: Performed By: #### L [id number] ####[facility] (JACK)[address] [place] [address] TYPE AND SCREENon 03-14-2024 AB SCREEN Negative Normal [facility] Comment on above: Performed By: #### L AB276 ####[facility], ABO group Nom (Bld) A Normal [facility] Comment on above: Performed By: #### L AB276 ####[facility], RH TYPE IN BLOOD Negative Normal [facility] Comment on above: Performed By: #### L AB276 ####[facility], CHEMISTRYOrdered By: SYSTEM SYSTEM on 02-26-2024 Albumin [...] 02-26-2024 Albumin [Mass/Vol] 4.1 g/dL Normal 3.3-5.0 [facility] Comment on above: Performed By: #### 2 [id number] #### [facility] [address] [place] [address] Albumin/Globulin (S) [Mass conc ratio] 1.1 Normal 1.1-2.2 [facility] Comment on above: Performed By: #### 2 083552 #### [facility] [address] [place] [address] ALP [Catalytic activity/Vol] 47 Int._Unit/L Normal 21-98 [facility] Comment on above: Performed By: #### 2 485235 #### [facility] [address] [place] [address] ALT No additional P-5'-P [Catalytic activity/Vol] 9 Int._Unit/L Normal 6-46 [facility] Comment on above: Performed By: #### 2 505708 #### [facility] [address] [place] [address] Anion gap [Moles/Vol] 11 mmol/L Normal 6-16 [facility] Comment on above: Performed By: #### 2 177245 #### [facility] [address] [place] [address] AST [Catalytic activity/Vol] 16 Int._Unit/L Normal 5-43 [facility] Comment on above: Performed By: #### 2 212472 #### [facility] [address] [place] [address] Bilirubin [Mass/Vol] 0.4 mg/dL Normal 0.0-1.[address] [facility] Comment on above: Performed By: #### 2 736322 #### [facility] [address] [place] [address] Calcium [Mass/Vol] 9.8 mg/dL Normal 8.9-11.1 [facility] Comment on above: Performed By: #### 2 507622 #### [facility] [address] [place] [address] Chloride [Moles/Vol] 102 mmol/L Normal 101-[address] [facility] Comment on above: Performed By: #### 2 074194 #### [facility] [address] [place] [address] CO2 [Moles/Vol] 27 mmol/L Normal 21-31 [facility] Comment on above: Performed By: #### 2 366107 #### [facility] [address] [place] [address] Creatinine [Mass/Vol] 0.6 mg/dL Normal 0.5-1.3 [facility] Comment on above: Performed By: #### 2 929946 #### [facility] [address] [place] [address] Globulin (S) [Mass/Vol] 3.7 g/dL Normal 1.4-4.0 [facility] Comment on above: Performed By: #### 2 713025 #### [facility] [address] [place] [address] Glucose [Mass/Vol] 67 mg/dL Normal 55-199 [facility] Comment on above: Performed By: #### 2 655602 #### [facility] [address] [place] [address] Potassium [Moles/Vol] 4.2 mmol/L Normal 3.5-5.3 [facility] Comment on above: Performed By: #### 2 085841 #### [facility] [address] [place] [address] Protein [Mass/Vol] 7.8 g/dL Normal 6.0-7.8 [facility] Comment on above: Performed By: #### 2 163844 #### [facility] [address] [place] [address] Sodium [Moles/Vol] 136 mmol/L Normal 135-145 [facility] Comment on above: Performed By: #### 2 510330 #### [facility] [address] [place] [address] Urea nitrogen [Mass/Vol] 15 mg/dL Normal 5-21 [facility] Comment on above: Performed By: #### 2 580526 #### [facility] [address] [place] [address] Urea nitrogen/Creatinine [Mass ratio] 25 No Units High 10-20 [facility] Comment on above: Performed By: #### 2 861687 #### [facility] [address] [place] [address] General Surgery Office/Clini c Noteon 02-26-2024 General Surgery Office/Clinic Note General Surgery Office/Clinic Note Chief Complaint Hormone positive left breast cancer surveillance visit HPI Staff Emeli is a 63 y.o. female here for 3 month follow up Hx of left breast cancer s/p Bypro Node biopsy of left done 04/11/2023 Denies [...] E&M of Est. Patient Low 20-29 Min [address]32 Personal history of malignant neoplasm of breast (Z85.3: Personal history of malignant neoplasm of breast) As above Portions of this record may have been created with voice recognition artificial intelligence software, specifically [employer] and or [employer]. Substitutions may have occurred due to [...] 50,000 intl units (1.25 mg) oral capsule, [address] International_Unit= 1 cap(s), Oral, qWeek Allergies No [...] influenza virus vaccine, inactivated 07/14/2014 Recorded Normal [facility] Comment on above: Result Comment: Elec tronically Signed By: Aurora RICE, Lauro Cast.br\Date and Time Signed: 02/26/24 14:44 EDT eGFRon 02-26-2024 eGFR 99 mL/min/1.73 m2 Normal >=59 [facility] Comment on above: Order Comment: Order added by Discern Expert. Performed By: #### 1 [id number] #### [facility] [address] [place] [address] Oncology Progress Noteon Oncology Progress Note Chief [...] left breast invasive lobular carcinoma, ER +90%, NH +20 to 30%, HER2/elif 1+, and Ki67 was positive 1%. 2 out of 2 sentinel lymph node with positive for macro metastatic disease. Her tumor was discussed at the [facility] tumor board patient is to obtain [...] Lumpectomy with wire-guided localization LYMPH NODE SAMPLING: Bypro lymph node(s) SPECIMEN INTEGRITY: multiple specimens (A [...] to adjuv (more content not included)... Normal [facility] Consent for Treatmenton 11-15 Consent for Treatment [id number]#[id number] Normal [facility] Immunoglobs. A/E/G/Mon 11-26 IgA Quant duplt test Invalid Interpretation Code [facility] Comment on above: Performed By: #### 2 53913488, 82821391, 7775342, 64045775, 6350908, 37709487 ####[facility] [address] [place] [address] IgG Quant duplt test Invalid Interpretation Code [facility] Comment on above: Performed By: #### 2 24348651, 08926883, 2657061, 32741218, 5714764, 10951445 ####[facility] [address] [place] [address] IgM Quant duplt test Invalid Interpretation Code [facility] Comment on above: Performed By: #### 2 89366297, 33727267, 1457991, 91865968, 8809137, 44906529 ####[facility] [address] [place] [address] Free K+L Lt Chains,Qn,Son Immunoglobulin light chains.kappa.free (S) [Mass/Vol] 32.2 mg/L High 3.3-19.4 [facility] Comment on above: Performed By: #### 2 53369843, 15042758, 6027582, 70164696, 5295307, 87076823 ####[place] [address] [place] [address] Immunoglobulin light chains.kappa.free/Imm unoglobulin light chains.lambda.free (S) [Mass ratio] 1.11 Invalid Interpretation Code 0.26-1.65 [facility] Comment on above: Result Comment: [facility] [address] [place], [place] [id number] PhD Adelfo Shannon Performed By: #### 2 21605314, 87199186, 8574849, 25092228, 6469366, 18517140 ####[facility] [address] [place] [address] Immunoglobulin light chains.lambda.free [Mass/Vol] 28.9 mg/L High 5.7-26.3 [facility] Comment on above: Performed By: #### 2 51791178, 11358592, 4488134, 68449271, 5654211, 30836022 ####[facility] [address] [place] [address] JULIO and PE, Serumon 11-26-19 24 Albumin [Mass/Vol] 3.6 g/dL Invalid Interpretation Code 2.9-4.4 [facility] Comment on above: Performed By: #### 2 31646436, 00146284, 8944266, 46488994, 2992803, 90407192 ####[facility] [address] [place] [address] Albumin/Globulin [Mass ratio] 0.9 {ratio} Invalid Interpretation Code 0.7-1.7 [facility] Comment on above: Performed By: #### 2 22582121, 04712224, 7101939, 75519375, 1499710, 60676863 ####[facility] [address] [place] [address] Alpha 1 globulin Elph [Mass/Vol] 0.4 g/dL Invalid Interpretation Code 0.0-0.4 [facility] Comment on above: Performed By: #### 2 71033898, 08573704, 3494809, 45551760, 2195929, 50818648 ####[facility] [address] [place] [address] Alpha 2 globulin Elph [Mass/Vol] 0.9 g/dL Invalid Interpretation Code 0.4-1.0 [facility] Comment on above: Performed By: #### 2 37595929, 11204009, 3660445, 40409399, 0090067, 21200303 ####[facility] [address] [place] [address] Beta globulin Elph [Mass/Vol] 1.2 g/dL Invalid Interpretation Code 0.7-1.3 [facility] Comment on above: Performed By: #### 2 29961454, 59948610, 7934105, 03508720, 5950042, 57430690 ####[facility] [address] [place] [address] Gamma globulin Elph [Mass/Vol] 1.7 g/dL Invalid Interpretation Code 0.4-1.8 [facility] Comment on above: Performed By: #### 2 23690012, 81378534, 1689750, 93486155, 4847867, 55345075 ####[facility] [address] [place] [address] Globulin (S) [Mass/Vol] 4.2 g/dL High 2.2-3.9 [facility] Comment on above: Performed By: #### 2 54785660, 76164269, 4362513, 42087760, 9003192, 31768047 ####[facility] [address] [place] [address] IgA [Mass/Vol] 552 mg/dL High 87-352 [facility] Comment on above: Performed By: #### 2 40182702, 66470976, 7572799, 75146686, 1617642, 44160855 ####[facility] [address] [place] [address] IgG [Mass/Vol] 1650 mg/dL High 586-1602 [facility] Comment on above: Performed By: #### 2 24097561, 00190518, 1577367, 58293844, 8380568, 61553426 ####[facility] [address] [place] [address] IgM [Mass/Vol] 112 mg/dL Invalid Interpretation Code [facility] Comment on above: Performed By: #### 2 92548228, 63839948, 3872109, 59036803, 8703980, 82086446 ####[facility] [address] [place] [address] Interpretation IEP [Interp] Comment Invalid Interpretation Code [facility] Comment on above: Result Comment: No m onoclonality detected. Performed By: #### 2 96389695, 44990481, 1855333, 37129885, 3774078, 85992288 ####[facility] [address] [place] [address] Laboratory comment Yossi (Report) Comment Invalid Interpretation Code [facility] Comment on above: Result Comment: Prot ein electrophoresis scan will follow via computer, mail, or finance advisor delivery. Performed at: [address] [id number] [id number] PhD Adelfo Shannon Performed By: #### 2 55991285, 87783655, 4610064, 80856028, 3891365, 54355602 ####[facility] [address] [place] [address] Protein [Mass/Vol] 7.8 g/dL Invalid Interpretation Code 6.0-8.5 [facility] Comment on above: Performed By: #### 2 06575902, 57413209, 2966611, 93886146, 4161141, 31475990 ####[facility] [address] [place] [address] Protein.monoclonal Elph [Mass/Vol] Not Observed Invalid Interpretation Code Not Observed [facility] Comment on above: Performed By: #### 2 60217104, 05691832, 8024599, 94623914, 3751623, 41012616 ####[facility] [address] [place] [address] Immunoglobs. A/E/G/Mon 11-25 IgE Qn 21 International_Unit/mL Invalid Interpretation Code 6-495 [facility] Comment on above: Result Comment: Perf ormed at: [address] [id number] MD José Miguel Shipman Performed By: #### 2 55193948, 97961504, 5216469, 49343552, 4583858, 71387266 ####[facility] [place] [address] CBC w/ Auto Diffon 4 Basophils/100 WBC (Bld) 0.6 % Normal 0.0-2.0 [facility] Comment on above: Performed By: #### 2 46039993, 94467936, 9459604, 90835586, 4074440, 81864232 ####[place] [address] Basophils/Leukocytes Auto (Bld) [Pure # fraction] 0.0 E9/L Normal 0.0-0.2 [facility] Comment on above: Performed By: #### 2 71735815, 86169181, 0862069, 71960019, 0157535, 15466150 ####[place] [address] Eosinophils (Bld) [#/Vol] 0.0 E9/L Normal 0.0-0.5 [facility] Comment on above: Performed By: #### 2 54964030, 57879170, 2688302, 11779441, 5412092, 00810121 ####[place] [address] Eosinophils/100 WBC (Bld) 0.9 % Normal 0.0-8.0 [facility] Comment on above: Performed By: #### 2 65477319, 14768194, 8837612, 24661378, 5209674, 80716263 ####[place] [address] Erythrocyte distribution width (RBC) [Ratio] 14.3 % High 10.9-14.2 [facility] Comment on above: Performed By: #### 2 17381610, 80970232, 5854746, 16951558, 5705885, 21556419 ####[address] [address] Hematocrit (Bld) [Volume fraction] 37.7 % Normal 34.0-46.0 [facility] Comment on above: Performed By: #### 2 04045513, 15779343, 9138469, 80048794, 6755008, 48361641 ####[facility] [address] [place] [address] Hemoglobin (Bld) [Mass/Vol] 12.2 g/dL Normal 12.0-16.0 [facility] Comment on above: Performed By: #### 2 66277446, 16115045, 4461301, 85286682, 2913524, 79831395 ####[address] [address] Lymphocytes (Bld) [#/Vol] 0.7 E9/L Low 1.0-4.0 [facility] Comment on above: Performed By: #### 2 92154606, 37317142, 8156675, 96939290, 7745426, 93579549 ####[address] [address] Lymphocytes/100 WBC (Bld) 16.0 % Normal 14.0-50.0 [facility] Comment on above: Performed By: #### 2 26738917, 44038609, 7144733, 85114726, 0083669, 86543887 ####[address] [address] MCH (RBC) [Entitic mass] 29.4 pg Normal 27.0-34.0 [facility] Comment on above: Performed By: #### 2 12539853, 81821614, 9678496, 25361307, 0111097, 76173529 ####[address] [address] MCHC (RBC) [Mass/Vol] 32.3 g/dL Normal 31.4-36.0 [facility] Comment on above: Performed By: #### 2 17711578, 24863910, 8940300, 82640923, 3532472, 22013315 ####[address] [address] MCV (RBC) [Entitic vol] 90.9 fL Normal 80.0-100.0 [facility] Comment on above: Performed By: #### 2 41837083, 19024269, 0442338, 37126526, 7708712, 99907688 ####[facility] [address] [place] [address] Monocytes (Bld) [#/Vol] 0.6 E9/L Normal 0.2-1.0 [facility] Comment on above: Performed By: #### 2 78146651, 57296573, 7416280, 93312620, 2860835, 92069564 ####[address] [address] Neutrophils (Bld) [#/Vol] 3.2 E9/L Normal 2.0-7.5 [facility] Comment on above: Performed By: #### 2 97863923, 07937775, 0897926, 07122887, 0854708, 12094582 ####[address] [address] Neutrophils/100 WBC (Bld) 68.5 % Normal 36.0-75.0 [facility] Comment on above: Performed By: #### 2 69021684, 19339267, 3162260, 02417972, 2110321, 28165852 ####[address] [address] Platelet 290.0 E9/L Normal 150.0-500. 0 [facility] Comment on above: Performed By: #### 2 14691380, 17350563, 4330832, 96009631, 3594472, 16852824 ####[place] [address] [place] [address] Platelet mean volume (Bld) [Entitic vol] 6.9 fL Normal 6.4-10.8 [facility] Comment on above: Performed By: #### 2 29377910, 87168963, 1792103, 95288753, 5533296, 33387152 ####[facility] [address] [place] [address] RBC (Bld) [#/Vol] 4.2 E12/L Low 4.3-5.9 [facility] Comment on above: Performed By: #### 2 50529885, 26159506, 0764142, 30468330, 8169589, 28801837 ####[facility] [address] [place] [address] WBC corrected for nucl RBC Auto (Bld) [#/Vol] 4.6 E9/L Normal 4.0-11.0 [facility] Comment on above: Performed By: #### 2 18889237, 53754661, 0930955, 83765868, 8944120, 12403185 ####[facility] [address] [place] [address] CHEMISTRYOrdered By: SYSTEM SYSTEM on 11-20-2023 Albumin [...] 11-20-2023 Albumin [Mass/Vol] 4.1 g/dL Normal 3.3-5.0 [facility] Comment on above: Performed By: #### 2 32874690, 14727882, 4863331, 00286781, 2674852, 20767234 ####[facility] [address] [place] [address] Albumin/Globulin (S) [Mass conc ratio] 1.0 Low 1.1-2.2 [facility] Comment on above: Performed By: #### 2 54186623, 19947605, 7195032, 28072804, 8709280, 03815790 ####[facility] [address] [place] [address] ALP [Catalytic activity/Vol] 52 Int._Unit/L Normal 21-98 [facility] Comment on above: Performed By: #### 2 91459812, 08590031, 5890560, 05752320, 8529203, 35454251 ####[facility] [address] [place] [address] ALT No additional P-5'-P [Catalytic activity/Vol] 13 Int._Unit/L Normal 6-46 [facility] Comment on above: Performed By: #### 2 97296643, 24091890, 9538988, 61783250, 9979345, 48476600 ####[facility] [address] [place] [address] Anion gap [Moles/Vol] 11 mmol/L Normal 6-16 [facility] Comment on above: Performed By: #### 2 17952663, 67117082, 7618652, 44691369, 1371568, 40949186 ####[facility] [address] [place] [address] AST [Catalytic activity/Vol] 19 Int._Unit/L Normal 5-43 [facility] Comment on above: Performed By: #### 2 52594173, 40444685, 4563507, 48439047, 4450954, 76159554 ####[facility] [address] [place] [address] Bilirubin [Mass/Vol] 0.6 mg/dL Normal 0.0-1.[address] [facility] Comment on above: Performed By: #### 2 45862003, 95759069, 7687463, 57443931, 1531618, 38172032 ####[facility] [address] [place] [address] Calcium [Mass/Vol] 9.4 mg/dL Normal 8.9-11.1 [facility] Comment on above: Performed By: #### 2 65274731, 19196786, 7486300, 69225768, 7628849, 51843880 ####[facility] [address] [place] [address] Chloride [Moles/Vol] 103 mmol/L Normal 101-[address] [facility] Comment on above: Performed By: #### 2 30361265, 80169888, 2947973, 52084501, 5688191, 72128437 ####[facility] [address] [place] [address] CO2 [Moles/Vol] 28 mmol/L Normal 21-31 [facility] Comment on above: Performed By: #### 2 71635976, 67247116, 8007123, 54957396, 7056096, 20618139 ####[facility] [address] [place] [address] Creatinine [Mass/Vol] 0.6 mg/dL Normal 0.5-1.3 [facility] Comment on above: Performed By: #### 2 59023358, 41226702, 7378770, 35433034, 7693280, 77197546 ####[facility] [address] [place] [address] Globulin (S) [Mass/Vol] 4.0 g/dL Normal 1.4-4.0 [facility] Comment on above: Performed By: #### 2 08766565, 65719912, 3034408, 74028759, 8646495, 31331726 ####[facility] [address] [place] [address] Glucose [Mass/Vol] 84 mg/dL Normal 55-199 [facility] Comment on above: Performed By: #### 2 09587365, 52952993, 9272833, 57143690, 6306023, 19340792 ####[facility] [address] [place] [address] Potassium [Moles/Vol] 4.2 mmol/L Normal 3.5-5.3 [facility] Comment on above: Performed By: #### 2 02167730, 12398427, 1231687, 76109203, 6814625, 13283366 ####[facility] [address] [place] [address] Protein [Mass/Vol] 8.1 g/dL High 6.0-7.8 [facility] Comment on above: Performed By: #### 2 47826960, 72278005, 3798273, 76905719, 7306769, 78570137 ####[facility] [address] [place] [address] Sodium [Moles/Vol] 138 mmol/L Normal 135-145 [facility] Comment on above: Performed By: #### 2 07595385, 58969851, 8329745, 24343842, 7344522, 01798890 ####[facility] [address] [place] [address] Urea nitrogen [Mass/Vol] 17 mg/dL Normal 5-21 [facility] Comment on above: Performed By: #### 2 75765310, 96436168, 7856839, 34677903, 5662956, 08495816 ####[facility] [address] [place] [address] Urea nitrogen/Creatinine [Mass ratio] 28 No Units High 10-20 [facility] Comment on above: Performed By: #### 2 85105782, 29370786, 3069027, 34393019, 3863742, 32943363 ####[facility] [address] [place] [address] Consent for Treatmenton Consent for Treatment [id number] Normal [facility] HEMATOLOGYOrdered By: SYSTEM SYSTEM on 11-20-2023 [...] 11-20-2023 eGFR 100 mL/min/1.73 m2 Normal >=59 [facility] Comment on above: Order Comment: Order added by Discern Expert. Performed By: #### 2 15566814, 27958324, 9344469, 76209638, 3520187, 26511557 ####[facility] [address] [place] [address] General Surgery Office/Clini c Noteon 11-14-2023 General Surgery Office/Clinic Note Chief Complaint 3 month follow up HPI Staff Emeli is a 62 y.o. female here for 3 month follow up Hx of left breast cancer s/p Bypro Node biopsy of left done 04/11/2023 Denies [...] with voice recognition artificial intelligence software, specifically [employer] and or [employer]. Substitutions may have occurred due to the inherent limitations of voice recognition and artificial intelligence software. ATTESTATION: Documentation services were performed after patient or guardian consented to allow [employer] to record this visit. SANTA airborne and air delivery specialist and provider reviewed before signing. SANTA: [...] 50,000 intl units (1.25 mg) oral capsule, 23534 International_Unit= 1 cap(s), Oral, qWeek Allergies No [...] Recorded diphthe (more content not included)... Normal [facility] Comment on above: Result Comment: Elec [...] FT Oncology Monday 3:00 PM EDT With: Lauor Simon MD Where: [facility] General Surgery [place] Normal [facility] Insurance Correspondenceon 0 09-25-2023 Insurance Correspondence [id number]#1.00TIFF Normal [facility] Consent for Treatmenton 08-17 Consent for Treatment [id number]#1.00TIFF Normal [facility] ED Pat Eduon 09-04-[address] [facility] Nephrology Protein Blood Test Why am [...] including vitamins, herbs, eye drops, creams, and qarh-ajb-kqffstf medicines. ? Any medical conditions you have. [...] protein: ? Premature : 4.2?7.6 g/dL. ? [place]: 4.6?7.4 g/dL. ? Infant: 6?6.7 g/dL. ? Child: 6.2?8 g/dL. ? Albumin: ? Premature : 3?4.2 g/dL. ? : 3.5?5.4 g/dL. ? [...] provider. Document Revised: 03/26/2021 Document Reviewed: 03/26/[address] Patient Education ? 2022 [employer] [facility] Oncology Progress Noteon Oncology Progress Note Chief Complaint Breast CA Pt has no major ques/concerns for doc today. Diagnoses 1. Breast cancer, left (C50.912: Malignant neoplasm of unspecified site of left female breast) Oncological History/ROS/PE/Assessment and Plan Chief Complaint Left breast invasive lobular carcinoma, ER +90%, NH +20 to 30%, HER2/elif 1+, and Ki67 [...] left breast invasive lobular carcinoma, ER +90%, NH +20 to 30%, HER2/elif 1+, and Ki67 was positive 1%. 2 out of 2 sentinel lymph node with positive for macro metastatic disease. Her tumor was discussed at the [facility] tumor board patient is to obtain [...] Lumpectomy with wire-guided localization LYMPH NODE SAMPLING: Bypro lymph node(s) SPECIMEN INTEGRITY: multiple specimens (A [...] invasive tumor cells, performed on previous biopsy ([id number]), please refer to previous report for details PROGESTERONE RECEPTOR: 20-30% of invasive tumor cells, performed on previous biopsy ([id number]), please refer to previous report for details Ki-67 INDEX OF INVASIVE TUMOR CELLS: Approximately 1% of invasive tumor cells, performed on previous biopsy ([id number]), please refer to previous report for details HER2/ELIF STUDIES: 1+ (IHC), performed on previous biopsy ([id number]), please refer to previous report for details [...] score of (more content not included)... Normal [facility] Outside Oncologyon 4 Outside Oncology [id number]#1.00TIFF Normal [facility] CHEMISTRYOrdered By: SYSTEM SYSTEM on 09-01-2023 [...] for Treatmenton 08-17 Consent for Treatment [id number]#1.00TIFF Normal [facility] Hep Func Panelon 09-01-2023 Albumin [Mass/Vol] 4.0 g/dL Normal 3.3-5.0 [facility] Comment on above: Performed By: #### 2 [id number] ####[facility] [address] [place] [address] Albumin/Globulin [Mass ratio] 0.9 {ratio} Low 1.1-2.2 [facility] Comment on above: Performed By: #### 2 [id number] ####[facility] [address] [place] [address] Alk Phos 67 Int._Unit/L Normal 21-98 [facility] Comment on above: Performed By: #### 2 [id number] ####[address] [place] [address] ALT 11 Int._Unit/L Normal 6-46 [facility] Comment on above: Performed By: #### 2 [id number] ####[address] [place] [address] AST 18 Int._Unit/L Normal 5-43 [facility] Comment on above: Performed By: #### 2 [id number] ####[address] [address] Bili Direct 0.1 mg/dL Normal 0.0-0.4 [facility] Comment on above: Performed By: #### 2 [id number] ####[address] [address] Bili Indirect 0.4 mg/dL Normal 0.1-0.9 [facility] Comment on above: Performed By: #### 2 [id number] ####[facility] [address] [place] [address] Bili Total 0.5 mg/dL Normal 0.0-1.1 [facility] Comment on above: Performed By: #### 2 [id number] ####[facility] [address] [place] [address] Globulin (S) [Mass/Vol] 4.6 g/dL High 1.4-4.0 [facility] Comment on above: Performed By: #### 2 [id number] ####[facility] [address] [place] [address] Protein [Mass/Vol] 8.6 g/dL High 6.0-7.8 [facility] Comment on above: Performed By: #### 2 [id number] ####[facility] [address] [place] [address] Ambulatory Visit Summaryon 0 08-07-2023 Ambulatory Visit [...] PM EDT With: Lauro Simon MD Where: [facility] General Surgery [place] Normal [facility] General Surgery Office/Clini c Noteon 08-07-2023 General Surgery Office/Clinic Note Chief Complaint 3 month follow up HPI Staff Emeli is a 62 y.o. female here for 3 month follow up Hx of left breast cancer s/p Bypro Node biopsy of left done 04/11/2023 denies breast changes She started letrozole 2.5 mg History of Present Illness 62-year-old female status post left breast needle localized lumpectomy, left axillary sentinel lymph node biopsy performed for ER positive NH HER2 negative T1 N1 MX breast cancer 2 of 2 lymph nodes found to have metastases, low Oncotype DX with chemotherapy declined by medical oncology, completed radiation therapy at [facility] here today for breast cancer [...] normal Assessment/Plan 62-year-old female with ER positive NH HER2 negative breast cancer status post needle left breast localized lumpectomy left sentinel lymph node biopsy performed March 2023 here for surveillance visit 1. Breast cancer, left (C50.912: Malignant neoplasm of unspecified site of left female breast) Follow-up 3 months Ordered: E&M of Est. Patient Low 20-29 Min 88301 2. Encounter for follow-up surveillance of breast cancer (Z08: Encounter for follow-up examination after completed treatment for malignant neoplasm) As above Ordered: E&M of Est. Patient Low 20-29 Min 33844 Portions of this record may have been created with voice recognition artificial intelligence software, specifically [employer] and or [employer]. 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 COMPARISON: None available. [...] MD Transcribed by: MEAGAN Technologist: VINCE Chowdhury [facility] Consent for Treatmenton 05-17 Consent for Treatment [id number]#1.00TIFF [facility] CHEMISTRYOrdered By: SYSTEM SYSTEM on 05-22-2023 [...] 97 mL/min/1.73 m2 Normal >=59mL/min /1.73 m2 [facility] Chem S Glucose [Mass/Vol] 93 mg/dL Normal [...] 6.6 E9/L Normal 4.0 - 11.0 E9/L [facility] [employer] CULTURE SPUTUMon 12-10-2022 CULTURE SPUTUM Culture Observations : NORMAL RESPIRATORY LI. Normal [facility] Comment on above: Performed By: #### C BC #### [facility] [address] [address] [address] Ildefonso Finn SPUTUM GRAM STAINon 12-11-19 COMMENTS Normal [facility] Comment on above: Performed By: #### S PUTGS #### [facility] [address] [address] [address] Ildefonso Finn DIPHTHEROIDS Normal [facility] Comment on above: Performed By: #### S PUTGS #### [facility] [address] [place] [address] Dr. Ildefonso Finn EPITHELIALS <25 Normal [facility] Comment on above: Performed By: #### S PUTGS #### [facility] [address] [address] [address] Ildefonso Finn FUNGAL ELEMENTS [facility] Comment on above: Performed By: #### S PUTGS #### [facility] [address] [address] [address] Ildefonso Finn GRAM NEG BACILLI [facility] Comment on above: Performed By: #### S PUTGS #### [facility] [address] [address] [address] Ildefonso INGRAM NEG DIPPLOCOCCI Normal [facility] Comment on above: Performed By: #### S PUTGS #### [facility] [address] [address] [address] Ildefonso Finn GRAM POS BACILLI [facility] Comment on above: Performed By: #### S PUTGS #### [facility] [address] [place] [address] Dr. Ildefonso Finn GRAM POSITIVE COCCI MODERATE Normal [facility] Comment on above: Performed By: #### S PUTGS #### [facility] [address] [place] [address] Dr. Ildefonso Finn WBC (Bld) [#/Vol] 10*3/uL [facility] Comment on above: Performed By: #### S PUTGS #### [facility] [address] [place] [address] Dr. Ildefonso Finn Covid-19 PCR (CVDTBH)on SARS-CoV-2 (COVID-19) RNA KARLA+probe Ql (Unsp spec) Not detected Normal NOT DETECTED [facility] Comment on above: Result Comment: [...] for this test is supported by the [employer] of Health and Human Service's declaration that [...] used). Performed By: #### C VDTB #### [facility] [address] [place] [address] Dr. Ildefonso Finn INFLUENZA A [facility] B [facility] 09[facility] Comment on above: Result Comment: Nega tive for Flu A protein angiten. Infection due to Flu A cannot be ruled out. Flu A angiten in the sample may be below the detection limit of the test. Performed By: #### I NFLUAB #### [facility] [address] [place] [address] Dr. Ildefonso Finn INFLUBNEG SEE BELOW Normal [facility] Comment on above: Result Comment: Nega tive for Flu B protein antigen. Infection due to Flu B cannot be ruled out. Flu B antigen in the sample may be below the detection limit of the test. Performed By: #### I NFLUAB #### [facility] [address] [place] [address] Dr. Ildefonso Finn INFLUENZA A AG Negative Normal NEGATIVE SEE COMMENT [facility] Comment on above: Performed By: #### I NFLUAB #### [facility] [address] [place] [address] Dr. Ildefonso Finn INFLUENZA B AG Negative Normal NEGATIVE SEE COMMENT [facility] Comment on above: Performed By: #### I NFLUAB #### [facility] [address] [place] [address] Dr. Ildefonso Finn OCC BLD IMMUNO SCREENon 06-17 OCCULT BLOOD Negative Normal NEGATIVE [facility] Comment on above: Performed By: #### O BSCRN #### [facility] [address] [place] [address] Dr. Ildefonso Finn CBC AUTO DIFFon 07-02-2022 BASO # 0.0 103/ul Normal 0.0-0.1 [facility] Comment on above: Performed By: #### C BC #### [facility] [address] [place] [address] Dr. Ildefonso Finn Basophils/100 WBC (Bld) 0.8 % Normal 0.2-2.0 [facility] Comment on above: Performed By: #### C BC #### [facility] [address] [place] [address] Dr. Ildefonso Finn EO # 0.1 103/ul Normal 0.0-0.7 [facility] Comment on above: Performed By: #### C BC #### [facility] [address] [place] [address] Dr. Ildefonso Finn Eosinophils/100 WBC (Bld) 1.1 % Normal 0.9-7.0 [facility] Comment on above: Performed By: #### C BC #### [facility] [address] [place] [address] Dr. Ildefonso Finn Erythrocyte distribution width (RBC) [Ratio] 13.4 % Normal 11.0-15.0 [facility] Comment on above: Performed By: #### C BC #### [facility] [address] [place] [address] Dr. Ildefonso Finn Hematocrit (Bld) [Volume fraction] 39.5 % Normal 36.0-48.0 [facility] Comment on above: Performed By: #### C BC #### [facility] [address] [place] [address] Dr. Ildefonso Finn Hemoglobin (Bld) [Mass/Vol] 12.9 g/dL Normal 12.0-16.0 [facility] Comment on above: Performed By: #### C BC #### [facility] [address] [place] [address] Dr. Ildefonso Finn IG # 0.01 10e3/ul Normal 0.00-0.03 [facility] Comment on above: Performed By: #### C BC #### [facility] [address] [place] [address] Dr. Ildefonso Finn IG % 0.2 % Normal 0.0-0.5 [facility] Comment on above: Performed By: #### C BC #### [facility] [address] [place] [address] Dr. Ildefonso Finn LYMPH # 1.1 103/ul Critically low 1.2-3.8 [facility] Comment on above: Performed By: #### C BC #### [facility] [address] [place] [address] Dr. Ildefonso Finn Lymphocytes/100 WBC (Bld) 20.3 % Critically low 20.5-60.0 [facility] Comment on above: Performed By: #### C BC #### [facility] [address] [place] [address] Dr. Ildefonso Finn MANUAL DIFF REQ NO Normal [facility] Comment on above: Performed By: #### C BC #### [facility] [address] [place] [address] Dr. Ildefonso Finn MCH (RBC) [Entitic mass] 29.3 pg Normal 26.7-34.0 [facility] Comment on above: Performed By: #### C BC #### [facility] [address] [place] [address] Dr. Ildefonso Finn MCHC (RBC) [Mass/Vol] 32.7 g/dL Normal 29.9-35.2 [facility] Comment on above: Performed By: #### C BC #### [facility] [address] [place] [address] Dr. Ildefonso Finn MCV (RBC) [Entitic vol] 89.8 fL Normal 81.0-99.0 [facility] Comment on above: Performed By: #### C BC #### [facility] [address] [place] [address] Dr. Ildefonso Finn MONO # 0.5 103/ul Normal 0.3-0.8 [facility] Comment on above: Performed By: #### C BC #### [facility] [address] [address] [address] Ildefonso Finn Monocytes/100 WBC (Bld) 10.0 % Normal 1.7-12.0 [facility] Comment on above: Performed By: #### C BC #### [facility] [address] [place] [address] Dr. Ildefonso Finn NEUT # 3.6 103/ul Normal 1.4-6.5 [facility] Comment on above: Performed By: #### C BC #### [facility] [address] [place] [address] Dr. Ildefonso Finn Neutrophils/100 WBC (Bld) 67.6 % Normal 43.0-75.0 [facility] Comment on above: Performed By: #### C BC #### [facility] [address] [place] [address] Dr. Ildefonso Finn Platelet mean volume (Bld) [Entitic vol] 9.0 fL Critically low 9.5-13.5 [facility] Comment on above: Performed By: #### C BC #### [facility] [address] [place] [address] Dr. Ildefonso Finn PLT 290 103/ul Normal 150-450 [facility] Comment on above: Performed By: #### C BC #### [facility] [address] [place] [address] Dr. Ildefonso Finn RBC 4.40 106/ul Normal 4.20-5.40 [facility] Comment on above: Performed By: #### C BC #### [facility] [address] [place] [address] Dr. Ildefonso Finn WBC 5.3 103/ul Normal 4.0-11.0 [facility] Comment on above: Performed By: #### C BC #### [facility] [address] [place] [address] Dr. Ildefonso Finn FREE THYROXINE INDEX T7on FTI 2.56 Normal 1.30-4.50 [facility] Comment on above: Performed By: #### C BC #### [facility] [address] [place] [address] Dr. Ildefonso Finn T3U 32.0 % Normal 30.0-39.0 [facility] Comment on above: Performed By: #### C BC #### [facility] [address] [place] [address] Dr. Ildefonso Finn T4 [Mass/Vol] 8.00 ug/dL Normal 4.80-13.90 [facility] Comment on above: Performed By: #### C BC #### [facility] [address] [place] [address] Dr. Ildefonso Finn GLYCOHEMOGLOBIN A1Con 2021 ADA RECOMMENDATION SEE BELOW Normal [facility] Comment on above: Result Comment: ADA RECOMMENDED LIMIT 4.0 - 6.0 ADA THERAPEUTIC TARGET < 7.0 ACTION SUGGESTED > 7.0 Performed By: #### A 1C #### [facility] [address] [place] [address] Dr. Ildefonso Finn Glucose [Mass/Vol] 114 mg/dL Normal [facility] Comment on above: Performed By: #### A 1C #### [facility] [address] [place] [address] Dr. Ildefonso Finn HbA1c (Bld) [Mass fraction] 5.6 % Normal 4.5-6.2 [facility] Comment on above: Performed By: #### A 1C #### [facility] [address] [place] [address] Dr. Ildefonso Finn IRONon 07-02-2022 Iron [Mass/Vol] 87.0 ug/dL Normal 50.0-170.0 [facility] Comment on above: Performed By: #### I PRISCILLA #### [facility] [address] [address] [address] Ildefonso Finn LIPID PROFILEon 07-02-2022 CHOL-HDL RATIO NORM SEE BELOW Normal [facility] Comment on above: Result Comment: 3.3 - 4.4 LOW RISK 4.4 - 7.1 AVERAGE RISK 7.1 - 11.0 MODERATE RISK >11.0 HIGH RISK Performed By: #### C BC #### [facility] [address] [address] [address] Ildefonso Finn Cholesterol [Mass/Vol] 173 mg/dL Normal <=200 [facility] Comment on above: Performed By: #### C BC #### [facility] [address] [address] [address] Ildefonso Finn Cholesterol in HDL [Mass/Vol] 74 mg/dL Critically high 40-60 [facility] Comment on above: Performed By: #### C BC #### [facility] [address] [address] [address] Ildefonso Finn Cholesterol in LDL [Mass/Vol] 90.6 mg/dL Normal [facility] Comment on above: Performed By: #### C BC #### [facility] [address] [address] [address] Ildefonso Finn Cholesterol.total/Cho lesterol in HDL [Mass ratio] 2.3 {ratio} Normal [facility] Comment on above: Performed By: #### C BC #### [facility] [address] [address] [address] Ildefonso Finn HDL NORMAL > or = 60 mg/dl - LO W CARDIOVASCULAR RISK <40 mg/dl - HIGH CARDIOVASCULAR RISK Normal [facility] Comment on above: Performed By: #### C BC #### [facility] [id number] Ildefonso Finn LDL CALC NORMAL SEE BELOW Normal [facility] Comment on above: Result Comment: <100 mg/dl OPTIMAL 100 - 129 mg/dl NEAR OR ABOVE OPTIMAL 130 - 159 mg/dl BORDERLINE HIGH 160 - 189 mg/dl HIGH >190 mg/dl VERY HIGH Performed By: #### C BC #### [facility] [address] [address] [address] Ildefonso Finn Triglyceride [Mass/Vol] 42 mg/dL Normal <=150 [facility] Comment on above: Performed By: #### C BC #### [facility] [address] [place] [address] Dr. Ildefonso Finn VLDL CALC 8.4 mg/dL Normal [facility] Comment on above: Performed By: #### C BC #### [facility] [address] [place] [address] Dr. Ildefonso Finn PROF 14(COMP METB)on 022 Albumin [Mass/Vol] 3.6 g/dL Normal 3.4-5.0 [facility] Comment on above: Performed By: #### C BC #### [facility] [address] [place] [address] Dr. Ildefonso Finn Albumin/Globulin [Mass ratio] 0.8 {ratio} Normal [facility] Comment on above: Performed By: #### C BC #### [facility] [address] [place] [address] Dr. Ildefonso Finn ALP [Catalytic activity/Vol] 74 U/L Normal 46-116 [facility] Comment on above: Performed By: #### C BC #### [facility] [address] [place] [address] Dr. Ildefonso Finn ALT [Catalytic activity/Vol] 15 U/L Normal 14-59 [facility] Comment on above: Performed By: #### C BC #### [facility] [address] [place] [address] Dr. Ildefonso Finn Anion gap [Moles/Vol] 7.8 mmol/L Normal [facility] Comment on above: Performed By: #### C BC #### [facility] [address] [place] [address] Dr. Ildefonso Finn AST [Catalytic activity/Vol] 21 U/L Normal 15-37 [facility] Comment on above: Performed By: #### C BC #### [facility] [address] [place] [address] Dr. Ildefonso Finn Bilirubin [Mass/Vol] 0.4 mg/dL Normal 0.2-1.0 [facility] Comment on above: Performed By: #### C BC #### [facility] [address] [address] [address] Ildefonso Finn Calcium [Mass/Vol] 9.0 mg/dL Normal 8.5-10.1 [facility] Comment on above: Performed By: #### C BC #### [facility] [address] [address] [address] Ildefonso Finn Chloride [Moles/Vol] 103 mmol/L Normal 98-107 [facility] Comment on above: Performed By: #### C BC #### [facility] [address] [place] [address] Dr. Ildefonso Finn CO2 [Moles/Vol] 30.5 mmol/L Normal 21.0-32.0 [facility] Comment on above: Performed By: #### C BC #### [facility] [address] [place] [address] Dr. Ildefonso Finn Creatinine [Mass/Vol] 0.70 mg/dL Normal 0.55-1.02 [facility] Comment on above: Performed By: #### C BC #### [facility] [address] [place] [address] Dr. Ildefonso Finn EGFR-AF GREEK >60 Normal >=60 [facility] Comment on above: Performed By: #### C BC #### [facility] [address] [place] [address] Dr. Ildefonso Finn EGFR-NON AF GREEK >60 Normal >=60 [facility] Comment on above: Performed By: #### C BC #### [facility] [address] [place] [address] Dr. Ildefonso Finn Globulin (S) [Mass/Vol] 4.5 g/dL Normal [facility] Comment on above: Performed By: #### C BC #### [facility] [address] [place] [address] Dr. Ildefonso Finn Glucose [Mass/Vol] 106 mg/dL Normal 74-106 [facility] Comment on above: Performed By: #### C BC #### [facility] [address] [place] [address] Dr. Ildefonso Finn Potassium [Moles/Vol] 4.3 mmol/L Normal 3.5-5.1 [facility] Comment on above: Performed By: #### C BC #### [facility] [address] [place] [address] Dr. Ildefonso Finn Protein [Mass/Vol] 8.1 g/dL Normal 6.4-8.2 [facility] Comment on above: Performed By: #### C BC #### [facility] [address] [place] [address] Dr. Ildefonso Finn Sodium [Moles/Vol] 137 mmol/L Normal 136-145 [facility] Comment on above: Performed By: #### C BC #### [facility] [address] [place] [address] Dr. Ildefonso Finn Urea nitrogen [Mass/Vol] 15.0 mg/dL Normal 7.0-18.0 [facility] Comment on above: Performed By: #### C BC #### [facility] [address] [place] [address] Dr. Ildefonso Finn Urea nitrogen/Creatinine [Mass ratio] 21.4 mg/mg Normal [facility] Comment on above: Performed By: #### C BC #### [facility] [address] [place] [address] Dr. Ildefonso Finn TSHon 07-02-2022 TSH 2.511 uIU/mL Normal 0.358-3.74 0 [facility] Comment on above: Performed By: #### C BC #### [facility] [address] [place] [address] Dr. Ildefonso Finn CULTURE SPUTUMon 04-16-2022 CULTURE SPUTUM Culture Observations : H. parainfluenzae; beta lactamase negative Isolate 1 Haemophilus parainfluenzae Normal [facility] Comment on above: Performed By: #### S PUTCX #### [facility] [address] [place] [address] Dr. Ildefonso Finn SPUTUM GRAM STAINon 04-16-20 COMMENTS Normal [facility] Comment on above: Performed By: #### S PUTGS #### [facility] [address] [address] [address] Ildefonso Finn DIPHTHEROIDS Normal [facility] Comment on above: Performed By: #### S PUTGS #### [facility] [address] [place] [address] Dr. Ildefonso Finn EPITHELIALS <25 Normal [facility] Comment on above: Performed By: #### S PUTGS #### [facility] [address] [place] [address] Dr. Ildefonso Finn FUNGAL ELEMENTS Normal [facility] Comment on above: Performed By: #### S PUTGS #### [facility] [address] [place] [address] Dr. Ildefonso Finn GRAM NEG BACILLI Normal [facility] Comment on above: Performed By: #### S PUTGS #### [facility] [address] [place] [address] Dr. Ildefonso INGRAM NEG DIPPLOCOCCI MODERATE Normal [facility] Comment on above: Performed By: #### S PUTGS #### [facility] [address] [place] [address] Dr. Ildefonso Finn GRAM POS BACILLI Normal [facility] Comment on above: Performed By: #### S PUTGS #### [facility] [address] [place] [address] Dr. Ildefonso Finn GRAM POSITIVE COCCI FEW Normal [facility] Comment on above: Performed By: #### S PUTGS #### [facility] [address] [place] [address] Dr. Ildefonso Finn WBC (Bld) [#/Vol] 10*3/uL Normal [facility] Comment on above: Performed By: #### S PUTGS #### [facility] [address] [place] [address] Dr. Ildefonso Finn Covid-19 PCR (CVDTB)on SARS-CoV-2 (COVID-19) RNA KARLA+probe Ql (Unsp spec) Detected Critically abnormal NOT DETECTED [facility] Comment on above: Result Comment: This test is not yet approved or cleared by the [place] FDA. When there are no FDA-approved or cleared tests available, and other criteria are met, FDA can make tests available under an emergency access mechanism called an Emergency Use Authorization (EUA). The EUA for this test is supported by the [place] of Health and Human Service's (HHS's) declaration [...] By: #### C [facility] #### [facility] [address] [place] [address] Dr. Ildefonso Finn Screening Mammogram, Ryan stanley [...] VERY IMPORTANT TO YOUR HEALTH. THE CURRENT [employer] [employer] GUIDELINES RECOMMENDS ANNUAL MAMMOGRAPHY BEGINNING AT AGE 38 THIS FACILITY USES A REMINDER SYSTEM TO ENSURE ALL PATIENTS RECEIVE REMINDER NOTIFICATIONS AT THE APPROPRIATE TIME BASED ON THE RECOMMENDATIONS OF THIS EXAM. 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 Accredited by the ACR and FDA. Report reported and signed by ESTEFANIA RUBIN on 12/31/2021 1312 Normal [facility] Development Analyst Vital Signs Date Time Vital Sign Value Performing Clinician Facility 09-24-2024 09:45-0400 Body height 165.1 cm Lillian Finch APRN.CNP Work Phone: [facility] 09-24-2024 09:45-0400 Body mass index (BMI) [Ratio] 22.47 kg/m2 Lillian Finch APRN.CNP Work Phone: [facility] 09-24-2024 09:45-0400 Body temperature 97.59 [degF] Andegoni Sandalakis PROOFER.PLAYER DEVELOPMENT MANAGER Work Phone: [facility] 09-24-2024 09:45-0400 Body weight 61.24 kg Andegoni Sandalakis PROOFER.PLAYER DEVELOPMENT MANAGER Work Phone: [facility] 09-24-2024 09:45-0400 Diastolic blood pressure 79 mm[Hg] Andegoni Sandalakis PROOFER.PLAYER DEVELOPMENT MANAGER Work Phone: [facility] 09-24-2024 09:45-0400 Heart rate 83 /min Andegoni Sandalakis PROOFER.PLAYER DEVELOPMENT MANAGER Work Phone: [facility] 09-24-2024 09:45-0400 SaO2% (BldA) [Mass fraction] 94 % Andegoni Sandalakis PROOFER.PLAYER DEVELOPMENT MANAGER Work Phone: [facility] 09-24-2024 09:45-0400 Systolic blood pressure 127 mm[Hg] Andegoni Sandalakis PROOFER.PLAYER DEVELOPMENT MANAGER Work Phone: [facility] 09-10-2024 15:19-0500 SaO2% (BldA) [Mass fraction] 98 % [facility] GONZ[facility] Comment on above: Order Comment: Specimen Type: ARTERIAL B LOOD SPECIMENOrdering Facility: [facility] Address: [address] [place] [address] Performed By: #### A LLBG ####[facility] [id number] [address] [place] [facility] 09-10-2024 11:11-0500 SaO2% (BldA) [Mass fraction] 99 % JANELL GONZÁLES [facility] Comment on above: Order Comment: Specimen Type: ARTERIAL B LOOD SPECIMENOrdering Facility: [facility] Address: [address] [place] [address] Performed By: #### A LLBG ####[facility] [id number] [place] [address] [place] 09-10-2024 07:24-0500 SaO2% (BldA) [Mass fraction] 97 % JANELL GONZÁLES [facility] Comment on above: Order Comment: Specimen Type: ARTERIAL B LOOD SPECIMENOrdering Facility: [facility] Address: [address] [place], [place] [id number] Performed By: #### A LLBG ####[facility] [id number] [place] [id number] [facility] 09-10-2024 03:20-0500 SaO2% (BldA) [Mass fraction] 97 % JANELL GONZÁLES [facility] Comment on above: Order Comment: Specimen Type: ARTERIAL B LOOD SPECIMENOrdering Facility: [facility] Address: [address] [place] [address] Performed By: #### A LLBG ####[facility] [id number] [place] [id number] [facility] 09-09-2024 23:58-0500 SaO2% (BldA) [Mass fraction] 98 % JANELL GONZÁLES [facility] Comment on above: Order Comment: Specimen Type: ARTERIAL B LOOD SPECIMENOrdering Facility: [facility] Address: [address] [place] [address] Performed By: #### A LLBG ####[facility] [id number] [place] [id number] [facility] 09-09-2024 19:30-0500 SaO2% (BldA) [Mass fraction] 99 % JANELL GONZÁLES [facility] Comment on above: Order Comment: Specimen Type: ARTERIAL B LOOD SPECIMENOrdering Facility: [facility] Address: [address] [place] [address] Performed By: #### A LLBG ####[facility] [id number] [place] [id number] [facility] 09-09-2024 15:54-0500 SaO2% (BldA) [Mass fraction] 99 % JANELL GONZÁLES [facility] Comment on above: Order Comment: Specimen Type: ARTERIAL B LOOD SPECIMENOrdering Facility: [facility] Address: [address] [place] [address] Performed By: #### A LLBG ####[facility] [id number] [address] [place] [facility] 09-09-2024 14:04-0500 SaO2% (BldA) [Mass fraction] 98 % JANELL GONZÁLES [facility] Comment on above: Order Comment: Specimen Type: ARTERIAL B LOOD SPECIMENOrdering Facility: [facility] Address: [address] [place] [address] Performed By: #### A LLBG ####[facility] [id number] [address] [place] 09-09-2024 12:58-0500 SaO2% (BldA) [Mass fraction] 98 % JANELL GONZÁLES [facility] Comment on above: Order Comment: Specimen Type: ARTERIAL B LOOD SPECIMENOrdering Facility: [facility] Address: [address] [place] [address] Performed By: #### A LLBG ####[facility] [id number] [address] [place] 09-09-2024 11:43-0500 SaO2% (BldA) [Mass fraction] 97 % JANELL GONZÁLES [facility] Comment on above: Order Comment: Specimen Type: ARTERIAL B LOOD SPECIMENOrdering Facility: [facility] Address: [address] [place] [address] Performed By: #### A LLBG ####[facility] [id number] [address] [id number] [place] 09-09-2024 10:26-0500 SaO2% (BldA) [Mass fraction] 100 % JANELL GONZÁLES [facility] Comment on above: Order Comment: Specimen Type: ARTERIAL B LOOD SPECIMENOrdering Facility: [facility] Address: [address] [place] [address] Performed By: #### A LLBG ####[facility] [id number] [address] [id number] [place] [facility] 09-09-2024 09:25-0500 SaO2% (BldA) [Mass fraction] 100 % JANELL GONZÁLES [facility] Comment on above: Order Comment: Specimen Type: ARTERIAL B LOOD SPECIMENOrdering Facility: [facility] Address: [address] [place] [address] Performed By: #### A LLBG ####[facility] [id number] [address] [id number] [place] 09-09-2024 08:49-0500 SaO2% (BldA) [Mass fraction] 100 % JANELL GONZÁLES [facility] Comment on above: Order Comment: Specimen Type: ARTERIAL B LOOD SPECIMENOrdering Facility: [facility] Address: [address] [place] [address] Performed By: #### A LLBG ####[facility] [id number] [place] [id number] [place] 09-09-2024 07:23-0500 SaO2% (BldA) [Mass fraction] 100 % JANELL GONZÁLES [facility] Comment on above: Order Comment: Specimen Type: ARTERIAL B LOOD SPECIMENOrdering Facility: [facility] Address: [address] [place] [address] Performed By: #### A LLBG ####[facility] [id number] [address] [id number] [place] 09-03-2024 13:08-0500 Body temperature 97.34 [degF] Mhd Jeff-Yesenia [facility] 09-03-2024 13:08-0500 Diastolic blood pressure 85 mm[Hg] Mhd Al-Marrawi [facility] 09-03-2024 13:08-0500 Heart rate 80 /min Mhd Al[facility]Marrawi [facility] 09-03-2024 13:08-0500 Mean blood pressure 109 mm[Hg] Mhd [facility]raw[facility] 09-03-2024 13:08-0500 Respiratory rate 16 /min [facility] 09-03-2024 13:08-0500 SaO2% (BldA) [Mass fraction] 97 % [facility] 09-03-2024 13:08-0500 Systolic blood pressure 157 mm[Hg] d Al-Marrawi [facility] 08-27-2024 10:56-0500 Body mass index (BMI) [Ratio] 22.63 kg/m2 Francisco Javier Calderón MD Work Phone: [facility] 08-27-2024 10:56-0500 Body temperature 98.8 [degF] Francisco Javier Calderón MD Work Phone: [facility] 08-27-2024 10:56-0500 Body weight 61.69 kg Francisco Javier Calderón MD Work Phone: [facility] 08-27-2024 10:56-0500 Diastolic blood pressure 80 mm[Hg] Francisco Javier Calderón MD Work Phone: [facility] 08-27-2024 10:56-0500 Heart rate 99 /min Francisco Javier Calderón MD Work Phone: [facility] 08-27-2024 10:56-0500 Respiratory rate 18 /min Francisco Javier Calderón MD Work Phone: [facility] 08-27-2024 10:56-0500 SaO2% (BldA) [Mass fraction] 95 % Francisco Javier Calderón MD Work Phone: [facility] 08-27-2024 10:56-0500 Systolic blood pressure 130 mm[Hg] Francisco Javier Paz Work Phone: [facility] 07-19-2024 13:27-0500 Body mass index (BMI) [Ratio] 21.13 kg/m2 Jung Quiroz MD Work Phone: [facility] 07-19-2024 13:27-0500 Body temperature 98.4 [degF] Jung uQiroz MD Work Phone: [facility] 07-19-2024 13:27-0500 Body weight 57.61 kg Jung Quiroz MD Work Phone: [facility] 07-19-2024 13:27-0500 Diastolic blood pressure 85 mm[Hg] Jung more MD Work Phone: [facility] 07-19-2024 13:27-0500 Heart rate 90 /min Jung Qiuroz MD Work Phone: [facility] 07-19-2024 13:27-0500 Respiratory rate 16 /min Jung Quiroz MD Work Phone: [facility] 07-19-2024 13:27-0500 SaO2% (BldA) [Mass fraction] 95 % Jung Quiroz MD Work Phone: [facility] 07-19-2024 13:27-0500 Systolic blood pressure 146 mm[Hg] Jung Waldron i, MD Work Phone: [facility] 07-11-2024 08:59-0500 Diastolic blood pressure 86 mm[Hg] Deangelo Morales MD Work Phone: [facility] 07-11-2024 08:59-0500 Systolic blood pressure 138 mm[Hg] Deangelo Paz Work Phone: [facility] 07-11-2024 08:58-0500 Body height 165.1 cm Deangelo Morales MD Work Phone: [facility] 07-11-2024 08:58-0500 Body mass index (BMI) [Ratio] 21.13 kg/m2 Deangelo Morales MD Work Phone: [facility] 07-11-2024 08:58-0500 Body weight 57.61 kg Deangelo Morales MD Work Phone: [facility] 07-11-2024 08:58-0500 Heart rate 88 /min Deangelo Morales MD Work Phone: [facility] 07-11-2024 08:58-0500 Respiratory rate 12 /min Deangelo Morales MD Work Phone: [facility] 07-11-2024 08:58-0500 SaO2% (BldA) [Mass fraction] 97 % Deangelo Morales MD Work Phone: [facility] 05-27-2024 15:14-0500 Diastolic blood pressure 94 mm[Hg] Lauro Simon [facility] 05-27-2024 15:14-0500 Heart rate 91 /min Lauro Simon [facility] 05-27-2024 15:14-0500 Systolic blood pressure 159 mm[Hg] Lauro Simon [facility] 04-30-2024 15:41-0400 Body temperature 98.06 [degF] Mhd [facility] 04-30-2024 15:41-0400 Diastolic blood pressure 85 mm[Hg] [facility]hd [facility] 04-30-2024 15:41-0400 Heart rate 88 /min [facility] 04-30-2024 15:41-0400 Mean blood pressure 99 mm[Hg] Mhd [facility] 04-30-2024 15:41-0400 Respiratory rate 18 /min [facility] 04-30-2024 15:41-0400 SaO2% (BldA) [Mass fraction] 97 % [facility] 04-30-2024 15:41-0400 Systolic blood pressure 127 mm[Hg] Mhd [facility] 04-19-2024 09:56-0400 Heart rate 85 /min [facility] 04-19-2024 09:56-0400 SaO2% (BldA) [Mass fraction] 97 % [facility] 04-19-2024 09:56-0400 Respiratory rate 20 /min [facility] 04-19-2024 09:56-0400 Body temperature 97.7 [degF] Mhd [facility] 04-19-2024 09:55-0400 Blood Pressure Location Mhd Al[facility]Mar[facility] 04-19-2024 09:55-0400 Diastolic blood pressure 75 mm[Hg] Mhd [facility] 04-19-2024 09:55-0400 Mean blood pressure 88 mm[Hg] Mhd [facility] 04-19-2024 09:55-0400 Systolic blood pressure 113 mm[Hg] Mhd [facility] 04-19-2024 08:29-0400 Blood Pressure Location Mhd Al-Marraw[facility] 04-19-2024 08:29-0400 Diastolic blood pressure 73 mm[Hg] Mhd [facility] 04-19-2024 08:29-0400 Heart rate 76 /min Mhd [facility] 04-19-2024 08:29-0400 Mean blood pressure 87 mm[Hg] Mhd [facility] 04-19-2024 08:29-0400 Systolic blood pressure 116 mm[Hg] Mhd [facility] 04-19-2024 08:29-0400 Heart rate 78 /min [facility]hd [facility] 04-19-2024 08:29-0400 SaO2% (BldA) [Mass fraction] 99 % [facility] 04-19-2024 08:29-0400 Body temperature 97.7 [degF] Mhd [facility] 04-19-2024 08:28-0400 Respiratory rate 20 /min [facility]hd [facility] 04-19-2024 08:25-0400 Blood Pressure Location Mhd Al[facility]Marraw[facility] 04-19-2024 08:25-0400 Diastolic blood pressure 76 mm[Hg] [facility]hd [facility] 04-19-2024 08:25-0400 Mean blood pressure 95 mm[Hg] [facility]hd [facility] 04-19-2024 08:25-0400 Systolic blood pressure 131 mm[Hg] [facility]hd [facility] 04-18-2024 13:30-0400 Body height 165.1 cm Fernanda Rinkes DO Work Phone: [facility] 04-18-2024 13:30-0400 Body mass index (BMI) [Ratio] 19.47 kg/m2 Fernanda Rinkes DO Work Phone: [facility] 04-18-2024 13:30-0400 Body weight 53.07 kg Fernanda Rinkes DO Work Phone: [facility] 04-18-2024 13:30-0400 Diastolic blood pressure 70 mm[Hg] Fernanda Rinkes DO Work Phone: [facility] 04-18-2024 13:30-0400 Systolic blood pressure 120 mm[Hg] Fernanda Rinkes DO Work Phone: [facility] 04-09-2024 11:43-0400 Body temperature 97.52 [degF] [facility]hd [facility] 04-09-2024 11:43-0400 Diastolic blood pressure 77 mm[Hg] Mhd [facility] 04-09-2024 11:43-0400 Heart rate 93 /min Mhd [facility] 04-09-2024 11:43-0400 Mean blood pressure 94 mm[Hg] [facility]hd [facility] 04-09-2024 11:43-0400 Respiratory rate 16 /min [facility] 04-09-2024 11:43-0400 SaO2% (BldA) [Mass fraction] 97 % [facility] 04-09-2024 11:43-0400 Systolic blood pressure 127 mm[Hg] Mhd [facility] 03-11-2024 15:19-0400 Body temperature 99.14 [degF] [facility]hd [facility] 03-11-2024 15:19-0400 Diastolic blood pressure 83 mm[Hg] Mhd [facility] 03-11-2024 15:19-0400 Heart rate 96 /min [facility]hd [facility] 03-11-2024 15:19-0400 Mean blood pressure 97 mm[Hg] [facility] 03-11-2024 15:19-0400 Respiratory rate 20 /min [facility] 03-11-2024 15:19-0400 SaO2% (BldA) [Mass fraction] 94 % [facility] 03-11-2024 15:19-0400 Systolic blood pressure 124 mm[Hg] Mhd [facility] 02-26-2024 14:36-0400 Diastolic blood pressure 96 mm[Hg] Lauro Simon [facility] [place] 02-26-2024 14:36-0400 Heart rate 90 /min Lauro Simon [facility] [place] 02-26-2024 14:36-0400 Systolic blood pressure 145 mm[Hg] Lauro Simon [facility] [place] 02-20-2024 12:42-0400 Body height 165.1 cm Alexander Baum MD Work Phone: [facility] 02-20-2024 12:42-0400 Body mass index (BMI) [Ratio] 21.63 kg/m2 Alexander Baum MD Work Phone: [facility] 02-20-2024 12:42-0400 Body weight 58.97 kg Alexander Baum MD Work Phone: [facility] 02-20-2024 12:42-0400 Diastolic blood pressure 81 mm[Hg] Alexander Baum MD Work Phone: [facility] 02-20-2024 12:42-0400 Heart rate 83 /min Alexander Baum MD Work Phone: [facility] 02-20-2024 12:42-0400 Systolic blood pressure 133 mm[Hg] Alexander Baum MD Work Phone: [facility] 12-04-2023 14:31-0400 Body temperature 98.42 [degF] Khanh Amaro [facility] 12-04-2023 14:31-0400 Diastolic blood pressure 72 mm[Hg] Khanh Amaro [facility] 12-04-2023 14:31-0400 Heart rate 97 /min Khanh Amaro [facility] 12-04-2023 14:31-0400 Mean blood pressure 86 mm[Hg] Khanh Amaro [facility] 12-04-2023 14:31-0400 Respiratory rate 16 /min Khanh Amaro [facility] 12-04-2023 14:31-0400 SaO2% (BldA) [Mass fraction] 95 % Khanh Amaro [facility] 12-04-2023 14:31-0400 Systolic blood pressure 113 mm[Hg] Khanh Amaro [facility] 11-06-2023 15:13-0400 Blood Pressure Location Lauro Simon [facility] [place] 11-06-2023 15:13-0400 Diastolic blood pressure 90 mm[Hg] Lauro Simon [facility] [place] 11-06-2023 15:13-0400 Heart rate 85 /min Lauro Simon [facility] [place] 11-06-2023 15:13-0400 Systolic blood pressure 137 mm[Hg] Lauro Simon [facility] [place] 09-04-2023 14:44-0500 Body temperature 97.34 [degF] Mhd [facility] 09-04-2023 14:44-0500 Diastolic blood pressure 64 mm[Hg] Mhd [facility] 09-04-2023 14:44-0500 Heart rate 91 /min d Al[facility] 09-04-2023 14:44-0500 Mean blood pressure 86 mm[Hg] Mhd [facility] 09-04-2023 14:44-0500 Respiratory rate 18 /min Mhd [facility] 09-04-2023 14:44-0500 SaO2% (BldA) [Mass fraction] 99 % [facility] 09-04-2023 14:44-0500 Systolic blood pressure 130 mm[Hg] Mhd [facility] 08-07-2023 15:51-0500 Diastolic blood pressure 78 mm[Hg] Lauro Simon [facility] [place] 08-07-2023 15:51-0500 Heart rate 80 /min Lauro Simon [facility] [place] 08-07-2023 15:51-0500 Systolic blood pressure 128 mm[Hg] Lauro Simon [facility] [place] 05-22-2023 14:00-0500 Blood Pressure Location Mhd Al[facility] 05-22-2023 14:00-0500 Body temperature 97.88 [degF] [facility]hd [facility] 05-22-2023 14:00-0500 Diastolic blood pressure 77 mm[Hg] Mhd [facility] 05-22-2023 14:00-0500 Heart rate 86 /min Mhd [facility] 05-22-2023 14:00-0500 Mean blood pressure 94 mm[Hg] d [facility] 05-22-2023 14:00-0500 Respiratory rate 16 /min Mhd [facility] 05-22-2023 14:00-0500 SaO2% (BldA) [Mass fraction] 98 % [facility]hd [facility] 05-22-2023 14:00-0500 Systolic blood pressure 129 mm[Hg] Mhd [facility] 05-01-2023 09:00-0400 Blood Pressure Location Mhd Al[facility] 05-01-2023 09:00-0400 Body temperature 97.7 [degF] Mhd [facility] 05-01-2023 09:00-0400 Diastolic blood pressure 71 mm[Hg] Mhd [facility] 05-01-2023 09:00-0400 Heart rate 86 /min Mhd Al[facility] 05-01-2023 09:00-0400 Mean blood pressure 87 mm[Hg] Mhd [facility] 05-01-2023 09:00-0400 Respiratory rate 18 /min d [facility] 05-01-2023 09:00-0400 SaO2% (BldA) [Mass fraction] 95 % d Al[facility] 05-01-2023 09:00-0400 Systolic blood pressure 120 mm[Hg] d [facility] 03-01-2023 10:51-0400 Blood Pressure Location Bashar Powhatan [facility] 03-01-2023 10:51-0400 Diastolic blood pressure 78 mm[Hg] Bashar Powhatan [facility] 03-01-2023 10:51-0400 Heart rate 77 /min Bashar Powhatan [facility] 03-01-2023 10:51-0400 SaO2% (BldA) [Mass fraction] 97 % Bashar Powhatan [facility] 03-01-2023 10:51-0400 Systolic blood pressure 136 mm[Hg] Bashar Powhatan [facility] 02-22-2023 12:31-0400 Blood Pressure Location Lauro Mourany [facility] 02-22-2023 12:31-0400 Diastolic blood pressure 84 mm[Hg] Lauro Mourany [facility] 02-22-2023 12:31-0400 Systolic blood pressure 127 mm[Hg] Lauro Mourany [facility] 02-22-2023 12:30-0400 Blood Pressure Location Lauro Mourany [facility] 02-22-2023 12:30-0400 Body temperature 98.06 [degF] Lauro Mourany [facility] 02-22-2023 12:30-0400 Diastolic blood pressure 79 mm[Hg] Lauro Ugarteurany [facility] 02-22-2023 12:30-0400 Heart rate 87 /min Lauro Ugarteurany [facility] 02-22-2023 12:30-0400 Respiratory rate 16 /min Lauro Ugarteurany [facility] 02-22-2023 12:30-0400 SaO2% (BldA) [Mass fraction] 96 % Lauro Ugartebradfordy [facility] 02-22-2023 12:30-0400 Systolic blood pressure 136 mm[Hg] Lauro Ugarteurany [facility] Encounters Encounter Date Encounter Type Care Provider Facility Start: 03-14-2025 End: 03-19-2025 ambulatory Libra Payne RN Cardiothoracic Comment on above: Refill Request Start: 03-04-2025 End: 03-04-2025 ambulatory SUDHAKAR NARAYAN Not Available Start: 02-04-2025 ambulatory NIYA robbins [facility] Start: 12-31-2024 End: 12-31-2024 ambulatory d Sushil Narayan Facility:[facility] Start: 12-31-2024 End: 12-31-2024 Patient encounter procedure d Sushil Narayan [facility] Start: 12-23-2024 End: 12-23-2024 ambulatory d Sushil Narayan Facility:[facility] Start: 12-23-2024 End: 12-23-2024 Patient encounter procedure jackson Narayan [facility] Start: 12-10-2024 End: 12-10-2024 ambulatory Lauro Simon Facility:[facility] Start: 12-10-2024 End: 12-10-2024 Patient encounter procedure Lauro Simon [facility] General Surgery [place] Start: 11-15-2024 End: 11-15-2024 ambulatory JATIN VASQUEZ Facility:[facility] Start: 11-15-2024 End: 11-15-2024 ambulatory EMELI WATT Facility:[facility] Start: 11-06-2024 End: 11-06-2024 ambulatory ALANA KATHRYN [facility] Start: 10-25-2024 End: 10-25-2024 Telephone encounter Janell Gonzáles MD Work Phone: Admitting Comment on above: Post Dc Program Call - Fyi Start: 09-24-2024 End: 09-24-2024 Telephone encounter Janell Gonzáles MD Work Phone: Cardiology Comment on above: Patient Question; Ca re Coordinator - Other Start: 09-24-2024 End: 09-24-2024 Patient encounter procedure Lillian Finch APRN.CNP Work Phone: Cardiothoracic Comment on above: Myxoma of heart (Hannah khanh Dx); Bronchiectasis without complication (HCC); ABLA (acute blood loss anemia) Start: 09-24-2024 End: 09-24-2024 ambulatory JANELL GONZÁLES Facility:[facility] Start: 09-24-2024 End: 09-24-2024 Subsequent hospital visit by physician Ct [facility] Main [facility]1 Work Phone: Radiology Comment on [...] Evaluation and management of inpatient JANELL GONZÁLES Facility:[facility] Start: 09-03-2024 End: 09-03-2024 ambulatory [facility] Start: 09-03-2024 End: 09-03-2024 Patient encounter procedure [facility] Start: 09-02-2024 End: 04-02-2024 Pre-admission assessment [facility] Start: 08-29-2024 End: 08-29-2024 ambulatory [facility] Start: 08-27-2024 End: 08-27-2024 Patient encounter procedure [facility] Work Phone: Cardiothoracic Comment on above: Pre-op exam (Primary Dx); Pre-op testing Start: 08-27-2024 End: 08-27-2024 Preprocedural examination done [facility] Work Phone: [facility] Start: 08-27-2024 End: 08-27-2024 Admission to same day surgery center Anesthesia Clearance Work Phone: [facility] Work Phone: Start: 08-27-2024 End: 08-27-2024 Patient encounter procedure Anesthesia Clearance Work Phone: Cardiothoracic Comment on above: Encounter for preope rative anesthesiology assessment for cardiac surgery (Primary Dx) Pre-operative cardio vascular examination; Benign neoplasm of heart Bronchiectasis witho ut complication (HCC) (Primary Dx); Pre-operative cardiovascular examination; Benign neoplasm of heart Start: 08-27-2024 End: 08-27-2024 Patient encounter status Janell Gonzáles MD Work Phone: [facility] Start: 08-27-2024 End: 08-27-2024 ambulatory Janell Gonzáles MD Work Phone: Cardiothoracic Comment on above: Patient Education Start: 08-26-2024 End: 08-26-2024 Patient encounter procedure Arielle Sharif MD Work Phone: Cardiology Start: 08-26-2024 End: 08-26-2024 ambulatory Arielle Sharif MD Work Phone: Cardiology Start: 08-26-2024 End: 08-26-2024 ambulatory JANELL GONZÁLES Facility:[facility] Start: 08-26-2024 Encounter for preprocedural cardiovascular examination JANELL GONZÁLES [facility] Start: 08-26-2024 End: 08-26-2024 ambulatory JANELL GONZÁLES Facility:[facility] Start: 08-26-2024 End: 08-26-2024 Patient encounter status Xr J1 Work Phone: [facility] Start: 08-26-2024 End: 08-26-2024 Subsequent hospital visit by physician Xr Chest Main J1 Work Phone: Radiology Comment on above: Pre-operative cardio vascular examination [Z01.810] Start: 08-25-2024 End: 08-25-2024 Telephone encounter Arielle Sharif MD Work Phone: Cardiology Comment on above: Patient Education Start: 08-22-2024 End: 09-13-2024 Patient encounter status Arielle Sharif MD Work Phone: [facility] Start: 08-15-2024 End: 08-15-2024 ambulatory jackson BooYesenia Facility:[facility] Start: 08-15-2024 End: 08-15-2024 Patient encounter procedure [facility] Start: 08-15-2024 End: 08-15-2024 Patient encounter status Janell Gonzáles MD Work Phone: [facility] Start: 08-15-2024 End: 08-15-2024 Telephone encounter Janell Gonzáles MD Work Phone: Cardiothoracic Comment on above: Referral Information ; Cardiac Preop Checklist Start: 08-13-2024 End: 08-13-2024 ambulatory JANELL GONZÁLES Facility:[facility] Start: 08-13-2024 End: 08-13-2024 Patient encounter procedure Janell Gonzáles MD Work Phone: Cardiothoracic Comment on above: Bronchiectasis witho ut complication (HCC) (Primary Dx) Start: 08-06-2024 End: 08-06-2024 ambulatory [facility] Start: 08-01-2024 ambulatory [facility] Start: 07-19-2024 End: 07-19-2024 ambulatory JANELL GONZÁLES Facility:[facility] Start: 07-19-2024 End: 07-19-2024 Patient encounter procedure Jung Quiroz MD Work Phone: Pulmonary Medicine Comment on above: Preoperative respira tory examination (Primary Dx); Left atrial mass; Bronchiectasis without complication (HCC) Start: 07-19-2024 End: 07-19-2024 Patient encounter status Jung Quiroz MD Work Phone: [facility] Work Phone: Start: 07-12-2024 End: 07-23-2024 [...] ; Consult Start: 05-30-2024 End: 05-30-2024 ambulatory [facility] Start: 05-27-2024 End: 05-27-2024 ambulatory Lauro Simon Facility:[facility] Start: 05-27-2024 End: 05-27-2024 Patient encounter procedure Lauro Simon [facility] General Surgery [place] Start: 05-03-2024 End: 05-03-2024 ambulatory [facility] Start: 05-02-2024 End: 05-02-2024 ambulatory [facility] Start: 05-01-2024 End: 05-01-2024 ambulatory [facility] Start: 04-30-2024 End: 04-30-2024 ambulatory Neftali Narayan Facility:[facility] Start: 04-30-2024 End: 04-30-2024 Patient encounter procedure Neftali Ling Al-Yesenia [facility] Start: 04-26-2024 End: 04-26-2024 ambulatory GERMAN HURTADO [facility] Start: 04-19-2024 End: 04-19-2024 ambulatory Neftali Narayan Facility:[facility] Start: 04-19-2024 End: 04-19-2024 Patient encounter procedure Neftali Boo-Yesenia [facility] Start: 04-18-2024 End: 04-18-2024 Bamboo flowsheet Fernanda Francheska Rinkes DO Work Phone: [facility] Start: 04-18-2024 End: 04-18-2024 Bamboo flowsheet Fernanda Francheska Rinkes DO Work Phone: [facility] Start: 04-18-2024 End: 04-18-2024 Patient encounter status Fernanda E Rinkes DO Work Phone: [facility] Start: 04-18-2024 End: 04-18-2024 Periodic preventive med est patient 65yrs& older Fernanda E Rinkes DO Work Phone: [facility] Comment on above: Encounter for gyneco logical examination without abnormal finding; Screening for malignant neoplasm of cervix; Encounter for screening mammogram for breast cancer Start: 04-18-2024 End: 04-18-2024 ambulatory FERNANDA MCGOVERN Not Available Start: 04-17-2024 End: 07-16-2024 ambulatory MD Neftali Narayan Facility:[facility] Start: 04-17-2024 End: 07-16-2024 Recurring Neftali Narayan [facility] Start: 04-11-2024 End: 04-11-2024 ambulatory Neftali Narayan Facility:[facility] Start: 04-11-2024 End: 04-11-2024 Lab Drop off Mhd Yaser Al-Marrawi [facility] Start: 04-09-2024 End: 04-09-2024 ambulatory Mhd Yaser Al-Marrawi Facility:[facility] Start: 04-09-2024 End: 04-09-2024 Patient encounter procedure Mhd Yaser Al-Marrawi [facility] Start: 04-09-2024 End: 04-09-2024 ambulatory Mhd Yaser Al-Marrawi Facility:[facility] Start: 04-09-2024 End: 04-09-2024 Patient encounter procedure Mhd Yaser Al-Marrawi [facility] Start: 03-28-2024 Evaluation and management of inpatient [facility]GSOOK [facility] Start: 03-27-2024 Evaluation and management of inpatient KATIANASOOK [facility] Start: 03-27-2024 Evaluation and management of inpatient YOUNGSOOK [facility] Start: 03-27-2024 End: 04-01-2024 [facility] Start: 03-27-2024 End: 03-27-2024 ambulatory UNKNOWN PROVIDER Facility:[facility] Start: 03-25-2024 Evaluation and management of inpatient DEA PIRKL [facility] Start: 03-25-2024 Evaluation and management of inpatient LAURA [facility] Start: 03-25-2024 Evaluation and management of inpatient JO ANN ANIBAL [facility] Start: 03-25-2024 Evaluation and management of inpatient LAURA [facility] Start: 03-24-2024 Evaluation and management of inpatient LAURA [facility] Start: 03-23-2024 [facility] Start: 03-22-2024 Evaluation and management of inpatient DEA PIRKL [facility] Start: 03-22-2024 Evaluation and management of inpatient LAURA YUSUF [facility] Start: 03-22-2024 Evaluation and management of inpatient RAGHEB [facility] Start: 03-21-2024 Evaluation and management of inpatient RAGHEB [facility] Start: 03-20-2024 Evaluation and management of inpatient RAGHEB [facility] Start: 03-18-2024 Evaluation and management of inpatient RAGHEB [facility] Start: 03-17-2024 Evaluation and management of inpatient RAGHEB [facility] Start: 03-16-2024 Evaluation and management of inpatient RAGHEB [facility] Start: 03-15-2024 Evaluation and management of inpatient RAGHEB [facility] Start: 03-15-2024 Evaluation and management of inpatient RAGHEB [facility] Start: 03-14-2024 End: 03-26-2024 Evaluation and management of inpatient OTIS MAGDI [facility] Start: 03-11-2024 End: 03-11-2024 ambulatory Mhd Sushil Narayan Facility:[facility] Start: 03-11-2024 End: 03-11-2024 [facility] Start: 02-26-2024 End: 02-26-2024 ambulatory Khanh Fuentes Caritosuellen Facility:[facility] Start: 02-26-2024 End: 02-26-2024 Patient encounter procedure Lauro Simon [facility] General Surgery [place] Start: 02-20-2024 End: 02-20-2024 Patient encounter procedure Alexander Baum MD Work Phone: [facility] Comment on above: Multiple sclerosis ( HCC) (Primary Dx) Start: 12-04-2023 End: 12-04-2023 ambulatory Khanh Amaro Facility:[facility] Start: 12-04-2023 End: 12-04-2023 Patient encounter procedure Khanh Amaro [facility] Start: 11-20-2023 End: 11-20-2023 ambulatory Mhd Yaser Al-Marrawi Facility:[facility] Start: 11-20-2023 End: 11-20-2023 Patient encounter procedure Mhd Yaser Al-Marrawi [facility] Start: 11-06-2023 End: 11-06-2023 ambulatory Lauro Simon Facility:[facility] Start: 11-06-2023 End: 11-06-2023 Patient encounter procedure Lauro Simon [facility] General Surgery [place] Start: 09-15-2023 ambulatory Khanh Amaro Facility: [facility] Start: 09-04-2023 End: 09-04-2023 ambulatory Mhd Yaser Al-Marrawi Facility:[facility] Start: 09-04-2023 End: 09-04-2023 Patient encounter procedure Mhd Yaser Al-Marrawi [facility] Start: 09-01-2023 End: 09-01-2023 ambulatory Mhd Yaser Al-Marrawi Facility:[facility] Start: 09-01-2023 End: 09-01-2023 Patient encounter procedure Mhd Yaser Al-Marrawi [facility] Start: 08-07-2023 End: 08-07-2023 ambulatory Lauro Simon Facility:[facility] Start: 08-07-2023 End: 08-07-2023 Patient encounter procedure Lauro Simon [facility] General Surgery [place] Start: 05-30-2023 End: 05-30-2023 ambulatory Mhd Yaser Al-Sharirawi Facility:[facility] Start: 05-30-2023 End: 05-30-2023 Patient encounter procedure Mhd Yaser Al-Marrawi [facility] Start: 05-22-2023 End: 05-22-2023 Patient encounter procedure Mhd Yaser Al-Marrawi [facility] Start: 05-22-2023 End: 05-22-2023 Patient encounter procedure Mhd Yaser Al-Marrasendy [facility] Start: 05-01-2023 End: 05-01-2023 Patient encounter procedure Lauro Simon [facility] [place] Start: 05-01-2023 End: 05-01-2023 Patient encounter procedure Mhd Yaser Al-Sharirasendy [facility] Start: 03-01-2023 End: 03-01-2023 Patient encounter procedure Bashar X [place] [facility] Start: 03-01-2023 End: 03-01-2023 Preprocedural examination done Bashar X [place] [facility] Start: 02-22-2023 End: 02-22-2023 Patient encounter procedure Lauro Simon [facility] Start: 02-20-2023 End: 03-23-2023 Pre-admission assessment Lauro Simon [facility] Start: 12-10-2022 End: 12-11-[address] BRIANNA YANEZ . Facility:[facility] Start: 09-15-2022 End: 09-15-[address] BRIANNA YANEZ . Facility:[facility] Start: 07-12-2022 End: 07-12-[address] BRIANNA YANEZ . Facility:[facility] Start: 07-06-2022 Encounter for genera l adult medical examination without abnormal findings DR BRIANNA YANEZ . 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 [id number] [address] [place] [facility] Start: 08-26-2024 Radiologic exam ches t 2 views Janell Gonzáles MD Work Phone: Start: 07-11-2024 Echocardiography ELSIE GONZÁLES Start: 07-11-2024 Co diffusing capacity Z Jazzy Gonzáles MD Work Phone: Start: 07-11-2024 Pulmonary ventilatio n & perfusion imaging Janell Gonzáles MD Work Phone: Start: 07-11-2024 Ct angiography chest w/contrast/noncontrast Janell Gonzáles MD Work Phone: Start: 07-11-2024 Creatinine [Mass/vol ume] in Serum or Plasma [facility] Provider Start: 04-26-2024 Follow-up visit OTIS HALE Start: 04-19-2024 Biopsy of bone Mhjackson herring Start: 03-01-2024 Mammography Fernanda carlin DO Work Phone: Start: 04-11-2023 Biopsy of lymph node June Simon Start: 01-11-2023 Microscopic observat ion [Identifier] in Cervix by Cyto stain Fernanda Mcgovern DO Work Phone: Start: 06-16-2021 Bronchoscopy Lauro Ugarteura ny Biopsy of breast Lauro Morataya y section Lauro stevenson Open heart surgery Mhd Darion fishman Plan of Treatment Date Care Activity Detail Author Start: 11-15-2029 Lipid panel Lipid Screening [facility] Start: 01-12-2028 Screening for malignant neoplasm of cervix [facility] Start: 11-28-2027 Urine microalbumin profile DTaP,Tdap,Td Vaccine (2 - Td or Tdap) [facility] Start: 11-16-2027 Diabetes Screening Diabetes Screening [facility] Start: 09-25-2027 Diabetes Screening Diabetes Screening [facility] Start: 09-15-2027 Diabetes Screening Diabetes Screening [facility] Start: 08-26-2027 Diabetes Screening Diabetes Screening [facility] Start: 04-01-2027 Diabetes Screening Diabetes Screening [facility] Start: 01-11-2026 Screening for malignant neoplasm of cervix Pap Smear [facility] Start: 06-09-2025 End: 06-09-2025 Procedure Cardiology Comment on above: est imaging 6 mo f/u per [facility]VI order Start: 06-02-2025 ambulatory Ambulatory Facility:[facility] Start: 04-30-2025 End: 04-30-2025 Patient encounter procedure 04/30/2025 3:00 PM EDT Office Visit [facility] [address] [place] [address] Fernanda Mcgovern, DO [address] [place] [address] [facility] Start: 03-17-2025 Influenza vaccination Influenza Vaccine (#1) [facility] Start: 03-01-2025 Screening for malignant neoplasm of breast [facility] Start: 11-15-2024 End: 11-15-2024 Patient encounter procedure Vascular Medicine Comment on above: OPEN HEART Start: 11-15-2024 End: 11-15-2024 ambulatory 11/15/2024 8:30 AM EDT Results Only [facility] [address] [place] [address] LAB [facility] Comment on above: LAB Start: 09-24-2024 End: 09-24-2024 ambulatory 09/24/2024 9:30 AM EDT Results Only [facility] [address] [place] [address] CBC CMP [facility] Comment on above: CBC CMP Start: 09-24-2024 End: 09-24-2024 Patient encounter procedure Radiology Comment on above: SURGERY FOLLOW UP HOSPITAL DISCHARGE J 5-3-23 Start: 09-14-2024 End: 12-14-2024 Basic metabolic 2000 panel - Serum or Plasma BASIC METABOLIC PANEL Lab Routine Disorder of artery or arteriole (HCC) Hx of cardiac cath Atelectasis Expected: 09/14/2024, Expires: 12/14/2024 [facility] Work Phone: Comment on above: Expected: 09/14/2024, Expires: Start: 09-14-2024 End: 12-14-2024 CBC panel - Blood by Automated count COMPLETE BLOOD COUNT Lab Routine Disorder of artery or arteriole (HCC) Hx of cardiac cath Atelectasis Expected: 09/14/2024, Expires: 12/14/2024 [facility] Comment on above: Expected: 09/14/2024, Expires: Start: 09-14-2024 End: 12-14-2024 Lipid 1996 panel - Serum or Plasma LIPID PANEL BASIC Lab Routine Disorder of artery or arteriole (HCC) Hx of cardiac cath Atelectasis Chest pain, unspecified type Expected: 09/14/2024, Expires: 12/14/2024 [facility] Comment on above: Expected: 09/14/2024, Expires: Start: 09-09-2024 End: 09-09-2024 Admission to same day surgery center Admitting Comment on above: LA Mass Excision (1) Start: 09-09-2024 End: 09-09-2024 Exc intracardiac tumor rescj cardiopulmonary byp [facility] CT & VAS Start: 09-09-2024 Subsequent hospital visit by physician Admitting Comment on above: Pre-operative cardiovascular examination [Z01.810], 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] Start: 08-27-2024 End: 08-27-2024 Patient encounter procedure Cardiothoracic Comment on above: LA Mass Excision (1) Start: 08-27-2024 End: 11-26-2024 STAPHYLOCOCCUS AUREUS & MRSA SCREEN, PCR, NASAL [facility] Work Phone: Comment on above: Expected: 08/27/2024, Expires: Start: 08-27-2024 End: 08-27-2024 Patient encounter procedure Cardiothoracic Comment on above: LA Mass Excision (1) Z01.810 (ICD-10-CM) - Pre-operative cardiovascular examination consult to ID Start: 08-26-2024 End: 08-26-2024 Admission to same day surgery center 08/26/2024 6:15 PM EST - 08/26/2024 7:06 PM EST Surgery HOSP Emergency Room Clerk [address] [place] [address] Arielle Sharif MD [address] [place] [address]ON[address] C[address] W IMAGE INJECT & INTERP W LT HEART CATH W INJECT LT VENTRGRAPHY HOSP Emergency Room Clerk Comment on above: CORONARY ANGIO W CATH [...] neoplasm of heart 08/26/2024 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 Start: 08-26-2024 Subsequent hospital visit by physician 08/26/2024 6:15 PM EST Hospital Encounter HOSP Emergency Room Clerk [address] [place] [address] Arielle Sharif MD [address] [place] [address] Pre-operative cardiovascular examination [Z01.810], Other chest pain [R07.89], 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] HOSP Emergency Room Clerk Comment on above: Pre-operative cardiovascular examination [Z01.810], Other chest pain [R07.89], 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] Start: 08-26-2024 End: 08-26-2024 Admission to same day surgery center 08/26/2024 7:20 AM EST - 08/26/2024 8:11 AM EST Surgery HOSP Emergency Room Clerk [address] [place] [address] Arielle Sharif MD [address] [place] [address] [address] W CATH [address] W IMAGE INJECT & INTERP W LT HEART CATH W INJECT LT VENTRGRAPHY HOSP Emergency Room Clerk Comment on above: CORONARY ANGIO W CATH [...] neoplasm of heart 08/26/2024 7:20 AM EST 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 Start: 08-26-2024 Subsequent hospital visit by physician 08/26/2024 7:20 AM EST Hospital Encounter HOSP Emergency Room Clerk [address] [place] [address] Arielle Sharif MD [address] [place] [address] Pre-operative cardiovascular examination [Z01.810], Other chest pain [R07.89], 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 Comment on above: LA Mass Excision (1) Start: 08-15-2024 End: 11-14-2024 aPTT in Platelet poor plasma by Coagulation assay ACTIVATED PARTIAL THROMBOPLASTIN TIME Lab Routine Other chest pain Pre-operative cardiovascular examination Benign neoplasm of heart Expected: 08/15/2024 (Approximate), Expires: 11/14/2024 [facility] Comment on above: Expected: 08/15/2024 (Approximate), Expi res: 11/14/2024 Start: 08-15-2024 End: 11-14-2024 CBC W Auto Differential panel - Blood COMPLETE BLOOD COUNT AND DIFFERENTIAL Lab Routine Pre-operative cardiovascular examination Benign neoplasm of heart Expected: 08/15/2024, Expires: 11/14/2024 [facility] Comment on above: Expected: 08/15/2024, Expires: Start: 08-15-2024 End: 11-14-2024 Comprehensive metabolic 2000 panel - Serum or Plasma COMPREHENSIVE METABOLIC PANEL Lab Routine Pre-operative cardiovascular examination Benign neoplasm of heart Expected: 08/15/2024, Expires: 11/14/2024 [facility] Work Phone: Comment on above: Expected: 08/15/2024, Expires: Start: 08-15-2024 End: 11-14-2024 CONFIRM BLOOD TYPE CONFIRM BLOOD TYPE Blood Bank Routine Pre-operative cardiovascular examination Benign neoplasm of heart Expected: 08/15/2024, Expires: 11/14/2024 [facility] Comment on above: Expected: 08/15/2024, Expires: Start: 08-15-2024 End: 11-14-2024 Lactate dehydrogenase [Enzymatic activity/volume] in Serum or Plasma LACTATE DEHYDROGENASE Lab Routine Pre-operative cardiovascular examination Benign neoplasm of heart Expected: 08/15/2024, Expires: 11/14/2024 [facility] Comment on above: Expected: 08/15/2024, Expires: Start: 08-15-2024 End: 11-14-2024 PT panel - Platelet poor plasma by Coagulation assay PROTHROMBIN TIME Lab Routine Other chest pain Pre-operative cardiovascular examination Benign neoplasm of heart Expected: 08/15/2024 (Approximate), Expires: 11/14/2024 [facility] Comment on above: Expected: 08/15/2024 (Approximate), Expi res: 11/14/2024 Start: 08-15-2024 End: 11-14-2024 TYPE AND SCREEN,30 DAY TYPE AND SCREEN,30 DAY Blood Bank Routine Pre-operative cardiovascular examination Benign neoplasm of heart Expected: 08/15/2024, Expires: 11/14/2024 [facility] Comment on above: Expected: 08/15/2024, Expires: Start: 08-15-2024 End: 11-14-2024 URINALYSIS, DIPSTICK ONLY URINALYSIS, DIPSTICK ONLY Lab Routine Pre-operative cardiovascular examination Benign neoplasm of heart Expected: 08/15/2024, Expires: 11/14/2024 [facility] Comment on above: Expected: 08/15/2024, Expires: Start: 08-13-2024 End: 08-13-2024 Patient encounter procedure 08/13/2024 1:00 PM EST Office Visit Cardiothoracic [address] [place] [address] Janell Gonzáles MD [address] [place] [address] [I77.9][D15.1] Cardiothoracic Comment on above: [I77.9][D15.1] Start: 08-01-2024 Shingrix Vaccine (2 of 2) Shingrix Vaccine (2 of 2) [facility] Start: 07-19-2024 End: 07-19-2024 Patient encounter procedure 07/19/2024 2:00 PM EST Office Visit Pulmonary Medicine [address] [place] [address] Jung Quiroz MD [address] [place] [address] Pre Op / Consult Per Romi [email or web address] 07-13 Pulmonary Medicine Comment on above: Pre Op / Consult Per Romi [email or web address] 07-13 Start: 07-17-2024 Advance Directive Discussion Advance Directive Discussion [facility] Start: 06-10-2024 End: 09-09-2024 CREATININE BLD CREATININE BLD Lab Routine 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 Expected: 06/10/2024, Expires: 09/09/2024 [facility] Comment on above: Expected: 06/10/2024, Expires: Start: 04-18-2024 End: 04-18-2024 Patient encounter procedure 04/18/2024 1:15 PM EDT Office Visit [facility] [address] [place] [id number] Fernanda Mcgovern DO [address] [place] [address] Encounter for gynecological examination without abnormal finding; Screening for malignant neoplasm of cervix; Encounter for screening mammogram for breast cancer [facility] Comment on above: Encounter for gynecological examination without abnormal finding; Screening for malignant neoplasm of cervix; Encounter for screening mammogram for breast cancer Start: 03-17-2024 Covid-19 Vaccine () Covid-19 Vaccine () [facility] Start: 03-17-2024 Influenza vaccination Influenza Vaccine (#1) [facility] Start: 01-06-2024 Screening for malignant neoplasm of breast Mammogram Screening [facility] Start: 11-11-2023 Advance Directive Discussion Advance Directive Discussion [facility] Start: 11-11-2023 Screening for osteoporosis Bone Density Screening [facility] Start: 10-16-2023 Medicare Annual Wellness Visit Medicare Annual Wellness Visit [facility] Start: 03-17-2023 Covid-19 Vaccine () Covid-19 Vaccine () [facility] Start: 07-05-2022 Diabetes Screening Diabetes Screening [facility] Start: 2008 Shingrix Vaccine (1 of 2) Shingrix Vaccine (1 of 2) [facility] Start: 11-11-2003 Lipid panel Lipid Screening [facility] Start: 11-11-2003 Screening for malignant neoplasm of colon [facility] Start: 1976 Anxiety Screening Anxiety Screening [facility] Start: 1976 Depression Screening Depression Screening [facility] Start: 1976 Hepatitis C screening Hepatitis C Screening [facility] Start: 1976 HIV screening HIV Screening [facility] Start: 1960 Screening for malignant neoplasm of colon [facility] End: 07-10-2025 CTA Chest vessels W contrast IV CTA CHEST (GATED) W IVCON Radiology Routine 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 1 Occurrences starting 06/10/2024 until 07/10/2025 [facility] Comment on above: 1 Occurrences starting 06/10/2024 until 07/10/2025 End: 06-10-2025 ECG COMPLETE ECG COMPLETE ECG Routine 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 1 Occurrences starting 06/10/2024 until 06/10/2025 [facility] [employer] Work Phone: Comment on above: 1 Occurrences starting 06/10/2024 until 06/10/2025 End: 08-15-2025 ECG COMPLETE ECG COMPLETE ECG Routine Pre-operative cardiovascular examination Benign neoplasm of heart 1 Occurrences starting 08/15/2024 until 08/15/2025 [facility] Comment on above: 1 Occurrences starting 08/15/2024 until 08/15/2025 End: 09-14-2025 ECG COMPLETE ECG COMPLETE ECG Routine Disorder of artery or arteriole (HCC) Hx of cardiac cath Atelectasis 1 Occurrences starting 09/14/2024 until 09/14/2025 [facility] Comment on above: 1 Occurrences starting 09/14/2024 until 09/14/2025 End: 06-10-2025 Echocardiography ECHO Cardiology Routine 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 1 Occurrences starting 06/10/2024 until 06/10/2025 [facility] Comment on above: 1 Occurrences starting 06/10/2024 until 06/10/2025 End: 09-14-2025 Echocardiography ECHO Cardiology Routine Disorder of artery or arteriole (HCC) Hx of cardiac cath Atelectasis 1 Occurrences starting 09/14/2024 until 09/14/2025 [facility] Comment on above: 1 Occurrences starting 09/14/2024 until 09/14/2025 INTERACTIVE HEART BATISTA RGERY PROGRAM INTERACTIVE HEART SURGERY PROGRAM Procedures Routine Pre-operative cardiovascular examination Benign neoplasm of heart Ordered: 08/15/2024 [facility] Comment on above: Ordered: 08/15/2024 End: 07-10-2025 LUNG DIFFUSION CAPACITY (DLCO) LUNG DIFFUSION CAPACITY (DLCO) PFT Routine 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 1 Occurrences starting 06/10/2024 until 07/10/2025 [facility] Comment on above: 1 Occurrences starting 06/10/2024 until 07/10/2025 End: 07-10-2025 NM Lung Ventilation and Perfusion NM LUNG VENT / PERF VQ Radiology Routine Disorder of artery or arteriole (HCC) Other specified symptoms and signs involving the circulatory and respiratory systems Benign neoplasm of heart 1 Occurrences starting 06/10/2024 until 07/10/2025 [facility] Comment on above: 1 Occurrences starting 06/10/2024 until 07/10/2025 SENDOUT TEST MISCELLANEOUS [facility] SENDOUT TEST MISCELLANEOUS [facility] Lab Routine Screening for malignant neoplasm of cervix Ordered: 04/18/2024 [facility] Work Phone: Comment on above: Ordered: 04/18/2024 End: 07-10-2025 SPIROMETRY BASELINE ONLY SPIROMETRY BASELINE ONLY PFT Routine 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 1 Occurrences starting 06/10/2024 until 07/10/2025 [facility] Comment on above: 1 Occurrences starting 06/10/2024 until 07/10/2025 End: 06-10-2025 US Carotid arteries - bilateral US CAROTID ARTERIES [facility] Vascular Lab Routine Disorder of artery or arteriole (HCC) Other specified symptoms and signs involving the circulatory and respiratory systems Benign neoplasm of heart 1 Occurrences starting 06/10/2024 until 06/10/2025 [facility] Comment on above: 1 Occurrences starting 06/10/2024 until 06/10/2025 End: 09-14-2025 XR Chest PA and Lateral XR CHEST 2V FRONTAL/LAT Radiology Routine Pre-operative cardiovascular examination Benign neoplasm of heart 1 Occurrences starting 08/15/2024 until 09/14/2025 [facility] Comment on above: 1 Occurrences starting 08/15/2024 until 09/14/2025 Immunizations Immunization Date Immunization Notes Care Provider Vianca mcfarlane 06-27-2023 influenza virus vaccine, unspecified formulation Alexander Baum MD Work Phone: [facility] 04-15-2022 influenza virus vaccine, unspecified formulation Lauro Simon [facility] [place] 05-02-2021 influenza virus vaccine, unspecified formulation Lauro Simon [facility] [place] 10-31-2020 SARS-CoV-2 (COVID-19 ) mRNA BNT-162b2 vax Lauro Simon [facility] Comment on above: Result Comment: 2022: [id number] 10-10-2020 SARS-CoV-2 (COVID-19 ) mRNA BNT-162b2 vax Lauro Smion [facility] Comment on above: Result Comment: 2022: [id number] 05-02-2019 influenza virus vaccine, unspecified formulation Lauro Simon [facility] 05-02-2019 influenza, injectabl e, quadrivalent, preservative free Alexander Baum MD Work Phone: [facility] 05-04-2018 influenza virus vaccine, unspecified formulation Lauro Simon [facility] 05-04-2018 influenza, injectabl e, quadrivalent, preservative free Alexander Baum MD Work Phone: [facility] 11-27-2017 tetanus toxoid, redu alona diphtheria toxoid, and acellular pertussis vaccine, adsorbed Lauro Simon [facility] 05-02-2017 influenza virus vaccine, unspecified formulation Lauro Simon [facility] 05-09-2016 influenza, unspecifi ed formulation Lauro Simon [facility] 05-07-2015 influenza virus vaccine, unspecified formulation Lauro Simon [facility] 05-07-2015 influenza, high dose seasonal, preservative-free Alexander Baum MD Work Phone: [facility] 07-14-2014 influenza virus vaccine, unspecified formulation Lauro Simon [facility] 07-14-2014 influenza, injectable,quadrivalent , preservative free, pediatric Alexander Baum MD Work Phone: [facility] 07-14-2014 pneumococcal conjuga te vaccine, 13 valent Lauro Simon [facility] 04-12-2013 influenza virus vaccine, unspecified formulation Alexander Baum MD Work Phone: [facility] Work Phone: 06-15-2012 influenza virus vaccine, unspecified formulation Alexander Baum MD Work Phone: [facility] 12-01-2011 pneumococcal polysaccharide vaccine, 23 valent Alexander Baum MD Work Phone: [facility] 10-12-2010 influenza virus vaccine, unspecified formulation Alexander Baum MD Work Phone: [facility] NEGATED: Highlighted row has not occurred!04-21-2023 influenza virus vaccine, unspecified formulation Lauro Simon [facility] Payers Date Payer Category Payer Medicare [id number] 2023 Private Health Insurance [id number] 2023 Medicare [id number] 2023 Unknown [id number] 2023 Unknown [id number] 1958 Unknown [id number] 2.16.84 0.1.794272.3.579.2.593 1958 Unknown [id number] 2.16.84 0.1.140678.3.579.2.593 1958 Unknown [id number] 2.16.84 0.1.176251.3.579.2.593 1958 Unknown [id number] 2.16.84 0.1.992068.3.579.2.593 1958 Unknown [id number] 2.16.84 0.1.333124.3.579.2.593 1958 Unknown [id number] 2.16.84 0.1.792899.3.579.2.593 1958 Unknown [id number] 2.16.84 0.1.431628.3.579.2.593 1958 Unknown [id number] 2.16.84 0.1.521607.3.579.2.593 1958 Unknown [id number] 2.16. 840.1.307663.3.579.2.732 1958 Unknown [id number] 2.16.8 40.1.757254.3.579.2.72 1958 Unknown [id number] 2.16.8 40.1.524161.3.579.2.72 1958 Unknown [id number] 2.16.8 40.1.834756.3.579.2.72 1958 Unknown [id number] 2.16.8 40.1.198393.3.579.2.72 1958 Unknown [id number] 2.16.8 40.1.642788.3.579.2.727 1958 Unknown [id number] 2.16.8 40.1.702662.3.579.2.72 1958 Unknown [id number] 2.16.8 40.1.757463.3.579.2.72 1958 Unknown [id number] 2.16.8 40.1.088205.3.579.2.72 1958 Unknown [id number] 2.16.8 40.1.864672.3.579.2.72 1958 Unknown [id number] 2.16.8 40.1.436927.3.579.2.72 1958 Unknown [id number] 2.16.8 40.1.229587.3.579.2. 1958 Unknown [id number] 2.16.8 40.1.651050.3.579.2. 1958 Unknown [id number] 2.16.8 40.1.549389.3.579.2. 1958 Unknown [id number] 2.16.8 40.1.168022.3.579.2. 1958 Unknown [id number] 2.16.8 40.1.950576.3.579.2. 1958 Unknown [id number] 2.16.8 40.1.365494.3.579.2 1958 Unknown [id number] 2.16.8 40.1.040302.3.579.2. 1958 Unknown [id number] 2.16.8 40.1.022092.3.579.2 1958 Unknown [id number] 2.16.8 40.1.139165.3.579.2. 1958 Unknown [id number] 2.16.8 40.1.666435.3.579.2 1958 Unknown [id number] 2.16.8 40.1.402854.3.579.2. 1958 Unknown [id number] 2.16.8 40.1.096149.3.579.2. 1958 Unknown [id number] 2.16.8 40.1.488906.3.579.2. 1958 Unknown [id number] 2.16.8 40.1.126501.3.579.2. 1958 Unknown [id number] 2.16.8 40.1.530122.3.579.2. 1958 Unknown [id number] 2.16.8 40.1.959585.3.579.2.1259 1958 Unknown [id number] 2.16.84 0.1.651445.3.579.2.1259 1958 Unknown [id number] 2.16.8 40.1.907114.3.579.2.727 1958 Unknown [id number] 2.16.8 40.1.780494.3.579.2.727 1958 Unknown [id number] 2.16.8 40.1.736573.3.579.2.727 Unknown [id number] Social History Date Type Detail Facility Start: 10-22-2014 End: 01-30-2023 Tobacco smoking status Never smoked tobacco (finding) [facility] Start: 06-17-2012 Tobacco smoking status Never [facility] Start: 02-19-2024 End: 02-20-2024 Sex Assigned At Female [facility] Start: 10-22-2014 End: 01-11-2023 Tobacco use and exposure Smokeless tobacco non-user [facility] Start: 02-20-2024 End: 11-15-2024 Alcohol intake Current non-drinker of alcohol (finding) [facility] Start: 02-19-2024 End: 02-20-2024 History of Social function [facility] Start: 1960 Sex Assigned At Not on file [facility] Start: 04-17-2024 End: 04-18-2024 Alcoholic beverage intake Lifetime non-drinker (finding) [facility] Start: 12-29-2022 Alcohol Comment Caffeine intake: non e [facility] Start: 1960 Sex assigned at Female [facility] Start: 12-27-2022 Gender identity Identifies as female gender (finding) [facility] Sexual Orientation [facility] Start: 10-28-2009 Sex Female (finding) [facility] Medical Equipment Procedure Code Equipment Code Equipment Original Text Equipment Identifier Dates [place] Thk1.65mm P tfe 4x.5in Cardiovascular Sterile - [id number] Start: 09-09-2024 Goals Date Patient Goal Desired Activity /State Personal health goal Personal health goal Personal health goal Functional Status Date Assessment Result Facility 09-14-2024 Are you deaf, or do you have serious difficulty hearing No 09/14/2024 1:11 PM Katelynn Coy, SHOAIB No [facility] 09-14-2024 Are you blind, or do you have serious difficulty seeing, even when wearing glasses No 09/14/2024 1:11 PM Katelynn Coy, SHOAIB No [facility] 09-14-2024 Do you have serious difficulty walking or climbing stairs No 09/14/2024 1:11 PM Katelynn Coy, SHOAIB No [facility] 09-14-2024 Do you have difficul ty dressing or bathing No 09/14/2024 1:11 PM Katelynn Coy, SHOAIB No [facility] 09-14-2024 Because of a physica l, mental, or emotional condition, do you have difficulty doing errands alone such as visiting a physician's office or shopping No 09/14/2024 1:11 PM Katelynn Coy RN No [facility] 08-26-2024 Are you deaf, or do you have serious difficulty hearing No 08/26/2024 7:00 PM Tim Torres RN No [facility] 08-26-2024 Are you blind, or do you have serious difficulty seeing, even when wearing glasses No 08/26/2024 7:00 PM Tim Torres RN No [facility] 08-26-2024 Do you have serious difficulty walking or climbing stairs No 08/26/2024 7:00 PM Tim Torres RN No [facility] 08-26-2024 Do you have difficul ty dressing or bathing No 08/26/2024 7:00 PM Tim Torres RN No [facility] 08-26-2024 Because of a physica l, mental, or emotional condition, do you have difficulty doing errands alone such as visiting a physician's office or shopping No 08/26/2024 7:00 PM Tim Torres, SHOAIB No [facility] 04-10-2024 Functional Status N/A [facility] 08-07-2023 Functional Status N/A [facility] [place] 03-01-2023 Functional Status No [facility] 02-22-2023 Functional Status No [facility] 10-13-2014 Are you deaf, or do you have serious difficulty hearing No 10/13/2014 8:26 AM EDT Teri Lora Ma [facility] 10-13-2014 Are you blind, or do you have serious difficulty seeing, even when wearing glasses No 10/13/2014 8:26 AM EDT Teri Lora Ma [facility] 10-13-2014 Do you have serious difficulty walking or climbing stairs No 10/13/2014 8:26 AM EDT Teri Lora Ma [facility] 10-13-2014 Do you have difficul ty dressing or bathing No 10/13/2014 8:26 AM EDT Teri Lora Ma [facility] 10-13-2014 Because of a physica l, mental, or emotional condition, do you have difficulty doing errands alone such as visiting a physician's office or shopping No 10/13/2014 8:26 AM ISHANT Teri Lora Ma [facility] Mental Status Date Assessment Result Facility 09-14-2024 Because of a physica l, mental, or emotional condition, do you have serious difficulty concentrating, remembering, or making decisions No 09/14/2024 1:11 PM Katelynn Coy, SHOAIB No [facility] 08-26-2024 Because of a physica l, mental, or emotional condition, do you have serious difficulty concentrating, remembering, or making decisions No 08/26/2024 7:00 PM Tim Torres, SHOAIB No [facility] 10-13-2014 Because of a physica l, mental, or emotional condition, do you have serious difficulty concentrating, remembering, or making decisions No 10/13/2014 8:26 AM EDT Teri Lora Ma [facility] Clinical Notes 01-03-2022 to 03-14-2025 Libra Payne RN - 03/14/2025 1:43 PM EDTTelepasquale Alfaro - Claudia Martinez - 03/14/2025 9:42 AM EDTTelephone Encounter - Claudia Martinez - 03/14/2025 9:42 AM EDTPatient Instructions Note Date & Type Note Facility 03-14-2025 Note [facility] 03-14-2025 History of Present illness Narrative QOL Call Tracking Documentation Follow-Up Type: Phone Call Call Attempt: 1st Attempt Call Status: Patient will complete in [employer] documented in this encounter [facility] 03-14-2025 Telephone encounter Note Call from pharmacy requesting refill. Requested Prescriptions Pending Prescriptions Disp Refills metoprolol tartrate, short acting, (LOPRESSOR) 25 mg tablet 90 tablet 3 Sig: Take 1/2 tablet by mouth every 12 hours. Patient last seen 11/15/24 Claudia GALICIA [facility] Work Phone: 03-14-2025 Miscellaneous Notes Call from pharmacy requesting refill. Requested Prescriptions Pending Prescriptions Disp Refills metoprolol tartrate, short acting, (LOPRESSOR) 25 mg tablet 90 tablet 3 Sig: Take 1/2 tablet by mouth every 12 hours. Patient last seen 11/15/24 Claudia GALICIA documented in this encounter [facility] 02-04-2025 Note [facility] 12-31-2024 Note Oncology Progress No te Chief [...] iliac bones while she was admitted that [facility] with bronchiectasis related hemoptysis. HPI: Emeli is a 62-year-old lady with history of multiple sclerosis and bronchiectasis who was referred by Dr. Simon to our oncology clinic to be evaluated and managed for her new left breast invasive lobular carcinoma, ER +90%, NH +20 to 30%, HER2/elif 1+, and Ki67 was positive 1%. 2 out of 2 sentinel lymph node with positive for macro metastatic disease. Her tumor was discussed at the [facility] tumor board patient is to obtain [...] Lumpectomy with wire-guided localization LYMPH NODE SAMPLING: Bypro lymph node(s) SPECIMEN INTEGRITY: multiple specimens (A [...] 05/25/23 for adjuvant (more content not included)... Shawn [facility] 11-15-2024 Note [facility] 11-06-2024 Note [facility] 11-06-2024 Note Follow up treated le ft breast and LN + 5 finished 2023 Pt had surgery at for myxoma. She has recovered well. Her last mammogram was February 2024. Ela ken [facility] 10-25-2024 Telephone encounter Note Images from the original note were not included. [facility] Phone Encounter DATE of SERVICE: 10/25/2024 TIME of SERVICE: 1:07 PM Status: FYI Service/Provider: Cardiac Surgery Yeyo Gonzáles M.D. Reason for call: Education Reinforcement Contact information: [phone] Resolution: Reinforced education Comments: Pt was asking when she was able to drive and when her sternal precautions were lifted. Pt had surgery on 09/09. Informed pt that her sternal precautions were up this past Monday (10/21). Pt asked for email of AVS. Emailed to [email or web address] Selina Hurd RN Date of Resolution: 10/25/2024 Time of Resolution 1:07 PM [facility] 10-25-2024 Miscellaneous Notes Images from the original note were not included. [facility] Phone Encounter DATE of SERVICE: 10/25/2024 TIME of SERVICE: 1:07 PM Status: FYI Service/Provider: Cardiac Surgery Yeyo Gonzáles M.D. Reason for call: Education Reinforcement Contact information: [phone] Resolution: Reinforced education Comments: Pt was asking when she was able to drive and when her sternal precautions were lifted. Pt had surgery on 09/09. Informed pt that her sternal precautions were up this past Monday (10/21). Pt asked for email of AVS. Emailed to [email or web address]. Selina Hurd RN Date of Resolution: 10/25/2024 Time of Resolution 1:07 PM documented in this encounter [facility] 09-24-2024 Telephone encounter Note Images from the original note were not included. [facility] Phone Encounter DATE of SERVICE: 09/24/2024 TIME of SERVICE: 1:44 PM Status: FYI Service/Provider: Cardiac Surgery Yeyo Gonzáles M.D. Reason for call: Care Coordination Contact information: [phone] Resolution: Other Dr Yanez FAX # [phone] Comments: Pt calling [facility] line. Seen today in [facility]. Asking for us to send copies of appt/lab/discharge summary/Operative Report to PCP Dr Yanez at Fax# [phone] and completed request. Encouraged to call with any further questions. Pam Onofre RN Date of Resolution: 09/24/2024 Time of Resolution 1:44 PM [facility] 09-24-2024 Miscellaneous Notes Images from the original note were not included. [facility] Phone Encounter DATE of SERVICE: 09/24/2024 TIME of SERVICE: 1:44 PM Status: FYI Service/Provider: Cardiac Surgery Yeyo Gonzáles M.D. Reason for call: Care Coordination Contact information: [phone] Resolution: Gomez Yanez FAX # [phone] Comments: Pt calling [facility] line. Seen today in [facility]. Asking for us to send copies of appt/lab/discharge summary/Operative Report to PCP Dr Yanez at Fax# [phone] and completed request. Encouraged to call with any further questions. Pam Onofre RN Date of Resolution: 09/24/2024 Time of Resolution 1:44 PM documented in this encounter [facility] 09-24-2024 Instructions Lillian Finch APRN.PLAYER DEVELOPMENT MANAGER - 09/24/2024 10:13 AM EDT Follow up with PCP next week with repeat cbc and cmp to monitor trends. Follow up with certified prosthetist/orthotist in 4-6 weeks with consideration of repeat echo. Cardiology to determine clearance for return to work and order Cardiac Rehab Phase II if not already given at the time of discharge. No further refills unless specified by local providers. documented in this encounter [facility] 09-24-2024 History of Present illness Narrative Images from the original note were not included. [facility] Department of Cardiovascular Medicine DEPARTMENT [...] cmp to monitor trends. Follow up with certified prosthetist/orthotist in 4-6 weeks with consideration of repeat [...] prophylaxis reviewed Discussed wound care Lillian Finch APRN.PLAYER DEVELOPMENT MANAGER documented in this encounter [facility] 09-24-2024 Note [facility] 09-24-2024 History of Present illness Narrative [...] PATIENT PRESENTS WITH AN IMPLANTABLE OR ATTACHED HOUSEKEEPING ATTENDANT: No RADIOLOGY DEPARTMENT: General X-ray: Exam(s) Completed: Chest X-Ray PERIPHERAL IV DATA: Not applicable SIGNED BY: JULIANA ORLANDO September 24, 2024 9:23 AM documented in this encounter [facility] 09-24-2024 Note [facility] 09-14-2024 Note [facility] 09-14-2024 Note [facility] 09-13-2024 Note [facility] 09-13-2024 Note [facility] 09-12-2024 Note [facility] 09-12-2024 Note [facility] 09-12-2024 Note [facility] 09-12-2024 Note [facility] 09-11-2024 Note [facility] 09-11-2024 Note [facility] 09-11-2024 Telephone encounter Note Per patient's the patient had her heart procedure done this past Monday and is currently admitted to [facility]. [phone] ([place]) Me [facility] 09-11-2024 Miscellaneous Notes Per patient's the patient had her heart procedure done this past Monday and is currently admitted to 5-3-23. [phone] (home) Me documented in this encounter [facility] 09-10-2024 Note [facility] 09-10-2024 Note [facility] 09-09-2024 Note [facility] 09-09-2024 Note [facility] 09-09-2024 Note [facility] 09-09-2024 Note [facility] 09-03-2024 Note [facility] 09-03-2024 History of Present illness Narrative Images from the original note were not included. [facility] DEPARTMENT OF CARDIAC SURGERY OUTPATIENT VISIT DATE September 03, 2024 OUTPATIENT VISIT SERVICE DATE: 09/03/2024 SERVICE TIME: 5:53 PM PCP: Brianna Hilton[address] [place] [address] Referring Physician: SELF Patient Type: Established Visit [...] nodules. MEDIASTINUM: mediastinal and hilar lymphadenopathy, stable. Aws Software Development Engineer: PSCB Transcribe Date/Time: Jul 11 2024 3:32P [...] Janell Gonzáles MD documented in this encounter [facility] 09-03-2024 Note Oncology Progress No te [...] iliac bones while she was admitted that [facility] with bronchiectasis related hemoptysis. HPI: Emeli is a 62-year-old lady with history of multiple sclerosis and bronchiectasis who was referred by Dr. Simon to our oncology clinic to be evaluated and managed for her new left breast invasive lobular carcinoma, ER +90%, NH +20 to 30%, HER2/elif 1+, and Ki67 was positive 1%. 2 out of 2 sentinel lymph node with positive for macro metastatic disease. Her tumor was discussed at the [facility] tumor board patient is to obtain [...] Lumpectomy with wire-guided localization LYMPH NODE SAMPLING: Bypro lymph node(s) SPECIMEN INTEGRITY: multiple specimens (A [...] hormone replacement therapy (more content not included)... [facility] 08-29-2024 Note [facility] 08-27-2024 Note [facility] 08-27-2024 History of Present illness Narrative [...] atrial mass. The patient was referred to [facility] after she recovered from the bleeding [...] patient is doing at that time. Signature: rFancisco Javier Calderón MD Pager: [phone] documented in this encounter [facility] 08-27-2024 History of Present illness Narrative [...] may have had. documented in this encounter [facility] 08-27-2024 Note [facility] 08-27-2024 Note [facility] 08-27-2024 History of Present illness Narrative [...] upcoming scheduled surgery. documented in this encounter [facility] 08-27-2024 Note [facility] 08-27-2024 History of Present illness Narrative [...] surgery on: 09/09/2024 [facility] MD: Dr. Deangelo Moarles CHIEF COMPLAINT: Pre-Op Open Heart Surgery MEDICATIONS: [...] of vocal cord DERM: Denies Dermatological Complaints SUPERVISOR CURING ROOM: remote hx of migraines, MS s/p treatment [...] nodules. MEDIASTINUM: mediastinal and hilar lymphadenopathy, stable. Aws Software Development Engineer: CALLI Transcribe Date/Time: Jul 11 2024 3:32P Dictated by : ZO NORRIS MD This examination was interpreted and the report reviewed and electronically signed by: ZO NORRIS MD on Jul 11 2024 4:17PM EST MRI: na CXR: XR CHEST 2V FRONTAL/LAT Result Date: 08/26/2024 IMPRESSION: See result Aws Software Development Engineer: [facility] Transcribe Date/Time: Aug 26 2024 2:44P Dictated by : SIVA NARANJO MD This examination was interpreted and the report reviewed and electronically signed by: SIVA NARANJO MD on Aug 26 2024 2:48PM EST EKG: Last EKG Result Conclusion ECG COMPLETE Collected: 08/26/2024 9:47 AM (Preliminary result) Impression: NORMAL SINUS RHYTHM LEFT VENTRICULAR HYPERTROPHY WITH REPOLARIZATION ABNORMALITY ( Sokolow-Fong , Kaleb product ) ABNORMAL ECG Dental: Not Cleared [...] All questions and concerns adressed. Signature: Aundrea L Andrew, RN See Cardiology History and Physical dated 08/27/2024 documented in this encounter [facility] 08-26-2024 Note [facility] 08-26-2024 History of Present illness Narrative [...] PATIENT PRESENTS WITH AN IMPLANTABLE OR ATTACHED HOUSEKEEPING ATTENDANT: No RADIOLOGY DEPARTMENT: General X-ray: Exam(s) Completed: Chest X-Ray PERIPHERAL IV DATA: Not applicable SIGNED BY: RT Ramses(Adriel) August 26, 2024 10:05 AM documented in this encounter [facility] 08-26-2024 Note [facility] 08-25-2024 Telephone encounter Note CARDIOVASCULAR LAB [...] Cooper RN, RN. In Department of CARDIOLOGY. [facility] 08-25-2024 Miscellaneous Notes CARDIOVASCULAR LAB INSTRUCTIONS: [...] hospital information, hotel information. Instructed By Lurdes Cooper, RN, RN. In Department of CARDIOLOGY. documented in this encounter [facility] 08-15-2024 Telephone encounter Note Expedite surgery: LA mass excision (1) 08/26-[facility] 08/27-Testing, TCI, ID (Dr. Combs, if available) , Eliecer, day 09/09-[facility] Send FedEx (not comfortable with MyChart) Patient accepted surgery date of 09/09. LHC will be on 08/26. Testing, TCI, ID (requesting Dr. Terrence Combs), Eliecer to be done on 08/27. Patient will [...] and general knowledge given to pt n/a [facility] 08-15-2024 Miscellaneous Notes Expedite surgery: LA mass excision (1) 08/26-[facility] 08/27-Testing, TCI, ID (Dr. Combs, if available) , Eliecer, day 09/09-[facility] Send FedEx (not comfortable with MyChart) Patient accepted surgery date of 09/09. LHC will be on 08/26. Testing, TCI, ID (requesting Dr. Terrence Combs), Eliecer to be done on 08/27. Patient will stop OTC products on 09/04 and verbalized understanding. No dental clearance is needed. Shaneka Mishra director medical surgical Surgery PreOp Checklist Patient Name: Emeli Kaufman [...] Shaneka Mishra RN documented in this encounter [facility] 08-15-[address] Gonzáles met with patient and is offering surgery. NPM will contact patient to discuss scheduling. Shaneka Mishra RN [facility] 08-14-2024 Note [facility] 08-14-2024 History of Present illness Narrative Images from the original note were not included. [facility] DEPARTMENT OF CARDIAC SURGERY OUTPATIENT VISIT DATE August 14, 2024 OUTPATIENT VISIT SERVICE DATE: 08/14/2024 SERVICE TIME: 9:21 AM PCP: Brianna Yanez [address] [place] [address] Referring Physician: Janell Gonzáles [address] [facility] [address] Patient Type: Established Visit to Determine Surgery: [...] nodules. MEDIASTINUM: mediastinal and hilar lymphadenopathy, stable. Aws Software Development Engineer: PSCB Transcribe Date/Time: Jul 11 2024 3:32P [...] Janell Gonzáles MD documented in this encounter [facility] 08-06-2024 Note [facility] 08-06-2024 Note [facility] 08-01-2024 Note [facility] 07-23-2024 Telephone encounter Note Patient agreed to F/U with Dr. Gonzáles on 08/13/24 at 1 pm. Shaneka Mishra RN [facility] 07-23-2024 Miscellaneous Notes Patient agreed to [...] < > Subject: Call from Emeli Kaufman ([id number]) - Patient ready to schedule for surgery Good morning Patient saw Dr. Gonzáles on 07/11 and has decided to move forward with scheduling her surgery. She can be reached at [phone]. documented in this encounter [facility] 07-19-2024 Instructions Jung Quiroz MD - 07/19/2024 2:57 PM EST It was a pleasure to meet you Ms. Kaufman. Please follow strict bronchopulmonary hygiene as advised in the clinic today I have prescribed the Albuterol as discussed Please resume the Vest therapy after you discuss with your anesthesia technician as you desired. I do not see contra-indication to it as of now. F/u with you anesthesia technician post surgery documented in this encounter [facility] 07-19-2024 Note [facility] 07-19-2024 History of Present illness Narrative Images from the original note were not included. . [facility] Note Ms. Kaufman is a 63 year old female who presents to the [facility]. Consultation requested by Dr. 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 Silica: No significant exposure. [place]: No significant exposure. 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 Plan: From a [...] infection, prolonged mechanical ventilatory needs). [facility] Failure Index is 31 = 11.6% [...] female who was referred to the [facility] for preop eval prior [...] Joan Dominguez MD documented in this encounter [facility] 07-12-2024 Note [facility] 07-12-2024 History of Present illness Narrative Images from the original note were not included. [facility] DEPARTMENT OF CARDIAC SURGERY OUTPATIENT VISIT DATE July 12, 2024 OUTPATIENT VISIT SERVICE DATE: 07/12/2024 SERVICE TIME: 3:54 PM PCP: Brianna Yanez [address] [place] [address] Referring Physician: Janell Gonzáles [address] [facility] [address] Patient Type: New Visit to Determine Surgery: [...] nodules. MEDIASTINUM: mediastinal and hilar lymphadenopathy, stable. Aws Software Development Engineer: CALLI Transcribe Date/Time: Jul 11 2024 3:32P [...] Janell Gonzáles MD documented in this encounter [facility] 07-12-2024 Telephone encounter Note Expedite evaluation Schedule Pulmonology appt and call patient with date Patient will need Pulmonology consult for clearance for heart surgery regarding Bronchiectasis. Shaneka Mishra RN [facility] 07-12-2024 Telephone encounter Note From: Chayo Kerr Sent: Friday, July 12, 2024 8:44 AM To: Shaneka Mishra Subject: Call from Emeli Kaufman ([id number]) - Patient ready to schedule for surgery Good morning Patient saw Dr. Gonzáles on 07/11 and has decided to move forward with scheduling her surgery. She can be reached at [phone]. [facility] 07-11-2024 Note HNO ID: [id number] Author: HARDEEP HATHAWAY RRT Service: ? Author Type: Registered Resp Therapist Type: Progress Notes Filed: 07/11/2024 11:35 Note Text: PULM FUNCTION: Provider: Janell Gonzáles MD Spirometry: 1 DLCO: 1 [facility] 07-11-2024 History of Present illness Narrative PULM FUNCTION: Provider: Janell Gonzáles MD Spirometry: 1 DLCO: 1 documented in this encounter [facility] 07-11-2024 History of Present illness Narrative [...] PATIENT PRESENTS WITH AN IMPLANTABLE OR ATTACHED HOUSEKEEPING ATTENDANT: No CREATININE: Creatinine Date Value Ref Range [...] 1034 PATIENT DISCHARGED TO: Ambulatory patient, left ID department area. Is this a therapy: No A Diagnostic radioactive procedure has taken place, with no further precautions necessary other than routine body substance precautions. More information regarding radiation safety can be found using this link: [email or web address] SIGNATURE: RT Saira(R) PATIENT NAME: Emeli Kafuman DATE: July 11, 2024 TIME: 10:35 AM PAGER/CONTACT #: documented in this encounter [facility] 07-11-2024 Note [facility] 07-11-2024 History of Present illness Narrative [...] PATIENT PRESENTS WITH AN IMPLANTABLE OR ATTACHED HOUSEKEEPING ATTENDANT: No RADIOLOGY DEPARTMENT: CT; Exam(s) Completed: Cardiac PERIPHERAL IV DATA: Site assessment: Clean,Dry and Intact, Site disposition Left in for next appointment SIGNED BY: RT Lucrecia(R) July 11, 2024 10:22 AM documented in this encounter [facility] 07-11-2024 Note [facility] 07-11-2024 Note [facility] 07-11-2024 History of Present illness Narrative Images from the original note were not included. [facility] Rajesh Larry Department of Cardiovascular Medicine SECTION OF CARDIOVASCULAR IMAGING OUTPATIENT VISIT DATE July 10, 2024 OUTPATIENT VISIT TYPE NEW PRIMARY CARE PHYSICIAN: Brianna Yanez [address] [place] [address] REFERRING PHYSICIAN: Janell Gonzáles [facility] [facility] [address] CHIEF COMPLAINT: Cardiac mass HISTORY OF PRESENT ILLNESS: Ms. Kaufman is a 63 year old female from [place], [place] who presents today for evaluation of a cardiac mass. 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 She was recently admitted to [facility] on 03/14/24 after she developed massive hemoptysis during a routine bronchoscopy for mucus plugging and was transferred to [facility] ICU. Patient was admitted on 03/14/2020 for [...] She was told by her oncologist at [facility] she has no metastatic disease at [...] is a 63 year old female from [place], [place] who presents today for evaluation of a left atrial mass. 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 Shaneka Mishra RN [facility] 06-10-2024 Miscellaneous Notes Schedule eval- Needs Cardsdenisha Tong Call patient [...] have her Oncologist office contact me. Shaneka Mishra, RN Unspecified CTS referral for patient with cardiac mass. Chart to NPM for Dr. Gonzáles to review. Katelynn Gregorio RN LOCAL PATIENT Received Routed [facility] Telephone Encounter from Dr. Hurtado/Minal Kaufman is being referred to First Available/Unspecified [...] office for scheduling. Please call pt at [phone]. Patient Registration: Registration complete/updated: yes Insurance card(s) [facility] with in the past year: Yes: Date: 06/04/24 - [facility] Pt's [employer] is active. Ok to communicate to pt via Team Apart not asked Medical Records: Records in [facility] (internal CC records): Yes Imaging in [facility] (internal CC records): Yes Care Everywhere - queried yes, downloaded Yes Linked Outside Organizations (list): [facility] OS Records Requested: yes Date: June 04, 2024 Outside Hospital(s) requested records from: ID Received: yes Uploaded: Yes. Waiting on additional records: No. Missing (list): [facility] Radiology Imaging Requested: yes Date: June 04, 2024 Outside Hospital(s) requested imaging from: ID. Imaging will be received via Electronic Transfer Received: yes Imaging uploaded: Yes via Electronic Transfer Waiting on additional: No. Missing (list): Additional providers added to Care Teams: Yes Additional Notes/Comments: Referral information complete 06/04/24 Enct routed to: Yes, NPM Cardiac, for Triage Aaliyah Thornton documented in this encounter [facility] 06-10-[address] Gonzáles reviewed file and is offering evaluation. NPM will contact patient to discuss scheduling. Shaneka Mishra RN [facility] 06-07-2024 Telephone encounter Note I contacted patient to ask her to request a more detailed note from her oncologist regarding recent MRI findings of concern for mets ( possible non enhancing T1 hypointense lesions reflecting mets). She has a H/O breast cancer 05/2023 with lumpectomy and radiation. She will reach out or have her Oncologist office contact me. Shaneka Mishra RN [facility] 06-05-2024 Telephone encounter Note Unspecified CTS referral for patient with cardiac mass. Chart to NPM for Dr. Gonzáles to review. Katelynn Gregorio RN [facility] Work Phone: 06-04-2024 Telephone encounter Note INN [facility] 06-04-2024 Miscellaneous Notes INN documented in this encounter [facility] 06-04-2024 Telephone encounter Note LOCAL PATIENT Received Routed Epic Telephone Encounter from Dr. Hurtado/Minal Kaufman is being referred to First Available/Unspecified [...] office for scheduling. Please call pt at [phone]. Patient Registration: Registration complete/updated: yes Insurance card(s) scanned in epic with in the past year: Yes: Date: 06/04/24 - [facility]N Pt's [employer] is active. Ok to communicate to pt via [employer] not asked Medical Records: Records in Epic (internal CC records): Yes Imaging in [facility] (internal CC records): Yes Care Everywhere - queried yes, downloaded Yes Linked Outside Organizations (list): [facility] OS Records Requested: yes Date: June 04, 2024 Outside Hospital(s) requested records from: ID Received: yes Uploaded: Yes. Waiting on additional records: No. Missing (list): [facility] Radiology Imaging Requested: yes Date: June 04, 2024 Outside Hospital(s) requested imaging from: ID. Imaging will be received via Electronic Transfer Received: yes Imaging uploaded: Yes via Electronic Transfer Waiting on additional: No. Missing (list): Additional providers added to Care Teams: Yes Additional Notes/Comments: Referral information complete 06/04/24 Enct routed to: Yes, NPM Cardiac, for Triage Aaliyah Thornton [facility] 06-04-2024 Telephone encounter Note Patient: Emeli Kaufman Date of : 1960 Patient phone number: [phone] Referring Provider for the encounter: German Hurtado Requesting Provider: n/a Reason for requesting visit (RFV/signs and symptoms/diagnosis): Cardiac mass (I51.89). Person calling: caregiver: Malgorzata Return call to: self Medical Records/Insurance Card scanned into Epic: Yes Comments: [facility] 06-04-2024 Miscellaneous Notes Patient: Emeli Kaufman Date of : 1960 Patient phone number: [phone] Referring Provider for the encounter: German Hurtado Requesting Provider: n/a Reason for requesting visit (RFV/signs and symptoms/diagnosis): Cardiac mass (I51.89). Person calling: caregiver: Malgorzata Return call to: self Medical Records/Insurance Card scanned into Epic: Yes Comments: documented in this encounter [facility] 05-30-2024 Note [facility] 05-16-2024 Note PET scan reviewed. W ill repeat a scan in 3 months. See the patient and probably will need a bronch, and EBUS TBNA Niya Blackwell MD Interventional Pulmonary Medicine Pulmonary and Critical Care Medicine [facility] Physicians [facility] 05-02-2024 Note [facility] 04-30-2024 Note Oncology Progress No te Diagnoses 1. Breast cancer, left (C50.912: Malignant neoplasm of unspecified site of left female breast) 2. Lytic bone lesions on xray (M89.9: Disorder of bone, unspecified) Oncological History/ROS/PE/Assessment and Plan Chief Complaint breast Ca; has a mole that would like to discuss today. Lytic bone lesion found on calvarium and iliac bones while she was admitted that [facility] with bronchiectasis related hemoptysis. HPI: Emeli is a 62-year-old lady with history of multiple sclerosis and bronchiectasis who was referred by Dr. Simon to our oncology clinic to be evaluated and managed for her new left breast invasive lobular carcinoma, ER +90%, NH +20 to 30%, HER2/elif 1+, and Ki67 was positive 1%. 2 out of 2 sentinel lymph node with positive for macro metastatic disease. Her tumor was discussed at the [facility] tumor board patient is to obtain [...] Lumpectomy with wire-guided localization LYMPH NODE SAMPLING: Bypro lymph node(s) SPECIMEN INTEGRITY: multiple specimens (A [...] invasive tumor cells, performed on previous biopsy ([id number]), please refer to previous report for details PROGESTERONE RECEPTOR: 20-30% of invasive tumor cells, performed on previous biopsy ([id number]), please refer to previous report for details Ki-67 INDEX OF INVASIVE TUMOR CELLS: Approximately 1% of invasive tumor cells, performed on previous biopsy (0525), please refer to previous report for details HER2/ELIF STUDIES: 1+ ([facility]), performed on previous biopsy (7812), please refer to previous report for details [...] 17 with Re (more content not included)... [facility] 04-26-2024 Note [facility] 04-18-2024 History of Present illness Narrative Images [...] Review Audit Reviewed by Windy Goff MA (Supervisor [employer]) on 04/18/24 at 1329 Medication Order Taking? Sig Documenting Provider Last Dose Status alendronate (Fosamax) 70 MG tablet [id number] TAKE 1 TABLET BY MOUTH EVERY 7 DAYS WITH 6-8 OZ WATER 30 MINUTES BEFORE ANY FOOD DRINK OR MEDICATION Fernanda Mcgovern DO Active calcium carbonate (Os-Tony) 1250 (500 Ca) MG tablet [id number] Take 1 tablet by mouth in the morning. Fernanda Mcgovern DO Active cholecalciferol (Vitamin D-3) 50 MCG (2000 UT) tablet [id number] Take 2,000 Units by mouth in the morning. Historical Provider, Active latanoprost (Xalatan) 0.005 % ophthalmic solution [id number] Administer 1 drop into both eyes at bedtime. Historical Provider, Active letrozole (Femara) 2.5 MG chemo tablet [id number] Yes Take 2.5 mg by mouth Daily. Fernanda Mcgovern DO Active levoFLOXacin (Levaquin) 750 MG tablet [id number] Yes Fernanda Mcgovern DO Active metoprolol tartrate (Lopressor) 25 MG tablet [id number] Yes Take 12.5 mg by mouth in the morning and 12.5 mg in the evening. Fernanda Mcgovern DO Active Past Medical History: Diagnosis Date Breast cancer ([facility]) 2022 Bronchiectasis ([facility]) delivery delivered History of bronchoscopy 2010 Lung infection 2011 slow growing lung infection Migraine, menstrual, intractable ([facility]) Miscarriage D&C Multiple sclerosis ([facility]) 2006 Pneumonia x2 Past Surgical History: Procedure [...] breast cancer Z12.31 documented in this encounter [facility] 04-09-2024 Hospital Discharge instructions Follow Up Care 04/09/2024 13:00:10 With:Sylvain RICE, BRENNAN Mello, ONC Address: When: Unknown Comments:Continue letrozole, Fosamax, calcium and vitamin D.CBC with differential CMP in 4 months.See pulmonary and may be infectious disease at ID for evaluation of the multiple lung lesion that is consistent with a chronic infections.Return in 4 months. [facility] 04-09-2024 Note Oncology Progress No te [...] iliac bones while she was admitted that [facility] with bronchiectasis related hemoptysis. HPI: Emeli is a 62-year-old lady with history of multiple sclerosis and bronchiectasis who was referred by Dr. Simon to our oncology clinic to be evaluated and managed for her new left breast invasive lobular carcinoma, ER +90%, NH +20 to 30%, HER2/elif 1+, and Ki67 was positive 1%. 2 out of 2 sentinel lymph node with positive for macro metastatic disease. Her tumor was discussed at the [facility] tumor board patient is to obtain [...] Lumpectomy with wire-guided localization LYMPH NODE SAMPLING: Bypro lymph node(s) SPECIMEN INTEGRITY: multiple specimens (A [...] invasive tumor cells, performed on previous biopsy ([id number]), please refer to previous report for details PROGESTERONE RECEPTOR: 20-30% of invasive tumor cells, performed on previous biopsy (), please refer to previous report for details Ki-67 INDEX OF INVASIVE TUMOR CELLS: Approximately 1% of invasive tumor cells, performed on previous biopsy (), please refer to previous report for details HER2/ELIF STUDIES: 1+ ([facility]), performed on previous biopsy ([id number]), please refer to previous report for details [...] to her left (more content not included)... [facility] 04-01-2024 Note [facility] 04-01-2024 Note [facility] 04-01-2024 Hospital Discharge instructions Follow Up Care [...] CT scan and the labs as well. [facility] 03-31-2024 Note [facility] 03-31-2024 Note [facility] 03-30-2024 Note [facility] 03-30-2024 Note [facility] 03-29-2024 Note [facility] 03-28-2024 Note [facility] 03-27-2024 Note [facility] 03-27-2024 Note [facility] 03-27-2024 Note [facility] 03-27-2024 Note [facility] 03-27-2024 Note [facility] 03-27-2024 Note [facility] 03-26-2024 Note AFB cultures remain negative to date [facility] 03-26-2024 Note Patient is up walkin g halls with spouse without the need for oxygen. Patient has no complaints of shortness of breath. Plan of care is ongoing. [facility] 03-26-2024 Note [facility] 03-26-2024 Note [facility] 03-26-2024 Note [facility] 03-26-2024 Note [facility] 03-26-2024 Note [facility] 03-26-2024 Note [facility] 03-25-2024 Note [facility] 03-25-2024 Note [facility] 03-25-2024 Note [facility] 03-25-2024 Note [facility] 03-25-2024 Note 9:30-SW sent MRI fin dings to [facility], SW to call. 10:30-SW called and faxed updated documents to [facility] IPR-await call back on accepting. OTM will continue to follow. [facility] 03-25-2024 Note [facility] 03-25-2024 Note [facility] 03-24-2024 Note [facility] 03-24-2024 Note [facility] 03-23-2024 Note [facility] 03-23-2024 Note [facility] 03-23-2024 Note [facility] 03-22-2024 Note [facility] 03-22-2024 Note [facility] 03-22-2024 Note [facility] 03-22-2024 Note [facility] 03-22-2024 Note [facility] 03-22-2024 Note [facility] 03-21-2024 Note [facility] 03-21-2024 Note [facility] 03-21-2024 Note [facility] 03-20-2024 Note [facility] 03-20-2024 Note [facility] 03-20-2024 Note [facility] 03-20-2024 Note [facility] 03-20-2024 Note [facility] 03-19-2024 Note [facility] 03-19-2024 Note [facility] 03-18-2024 Note [facility] 03-18-2024 Note [facility] 03-17-2024 Note [facility] 03-17-2024 Note [facility] 03-17-2024 Note [facility] 03-16-2024 Note [facility] 03-15-2024 Note [facility] 03-15-2024 Note [facility] 03-15-2024 Note [facility] 03-14-2024 Note [facility] 03-14-2024 Note Satisfactory for luci luation. Examination of the ThinPrep slide and cell block reveals benign bronchial cells, abundant acute inflammation, bacteria, and debris. [facility] Comment on above: Performed By: #### L [id number] ####[facility] ([facility] [place] [address] 03-11-2024 Note Oncology Progress No te Chief [...] left breast invasive lobular carcinoma, ER +90%, NH +20 to 30%, HER2/elif 1+, and Ki67 was positive 1%. 2 out of 2 sentinel lymph node with positive for macro metastatic disease. Her tumor was discussed at the [facility] tumor board patient is to obtain [...] Lumpectomy with wire-guided localization LYMPH NODE SAMPLING: Bypro lymph node(s) SPECIMEN INTEGRITY: multiple specimens (A [...] adjuvant treatment. She (more content not included)... [facility] 02-20-2024 History of Present illness Narrative Images from the original note were not included. [facility] FOLLOWUP/ESTABLISHED PATIENT VISIT Also followed by: Brianna [...] Flowsheet Row Office Visit from 02/20/2024 in [facility] Office Visit from 07/01/2015 in [facility] Office Visit from 05/28/2014 in [facility] Upper Extremity Domain T Score 57 47.9 56.84 Lower Extremity Domain T Score 50 48.92 55.49 Cognitive Function Domain T Score 67 -- -- Positive Affect Well Being T Score -- -- -- Ability To Participate In Social Roles T Score 56 -- -- Satisfaction With Social Roles T Score 62 -- -- Neuro-QoL Symptoms (higher=worse symptoms) Flowsheet [facility] Office Visit from 02/20/2024 in [facility] Office Visit from 07/01/2015 in [facility] Office Visit from 05/28/2014 in [facility] Sleep Domain T Score 32 38.15 40.22 [...] without mention of status migrainosus, Multiple sclerosis ([facility]), Pulmonary infiltrate, and Sciatica. She has no past medical history of Atrial fibrillation ([facility]), Cancer ([facility]), Chronic obstructive pulmonary disease (COPD) ([facility]), Chronic renal insufficiency, Congestive heart failure ([facility]), Coronary artery disease, Depression, Diabetes ([facility]), Epilepsy ([facility]), Hypertension, Obstructive sleep apnea, Steroid long-term use, Stroke ([facility]), or Substance abuse ([facility]). has a current medication list which includes the following prescription(s): letrozole, latanoprost, cholecalciferol, calcium carbonate, sodium chloride, albuterol, ipratropium bromide, and nebulizer and compressor for neb. 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 She has long-standing multiple sclerosis but has been clinically stable for many years, without evidence for active inflammation. Although a brain MRI could be considered now, I think it's unlikely to change our current recommendations to remain off multiple sclerosis disease modifying therapy. Alexander Baum MD cc: Brianna Yanez MD, [address] [facility] [id number] documented in this encounter [facility] 12-04-2023 Hospital Discharge instructions Follow Up Care 12/04/2023 15:23:41 With:Sylvain RICE, BRENNAN Mello, ONC Address: When: Unknown Comments:Continue taking letrozole or Femara once daily.Continue calcium and vitamin D.Continue taking Fosamax once a week for the osteoporosis.CBC and CMP labs in 6 months and return in 6 months. [facility] 09-04-2023 Hospital Discharge instructions Follow Up Care 09/04/2023 15:35:12 With:Sondra FIELDS, Khanh Fuentes, ONC Address: [facility] [address] [place] [address] [place] [address] [phone] When: Unknown Comments:continue alendronate weekly and letrozole dailydiagnostic mamm in January/Feb (toll service observer will order)cmp in 3mofollow-up in 3mo with Dr. Boo [facility] 09-04-2023 Hospital Discharge instructions Patient Education [...] including vitamins, herbs, eye drops, creams, and nfee-iwj-bdmxhen medicines. Any medical conditions you have. How [...] Total protein: ?Premature infant: 4.2 7.6 g/dL. ?: 4.6 7.4 g/dL. ?: 6 6.7 g/dL. ?Child: 6.2 8 g/dL. Albumin: ?Premature : 3 4.2 g/dL. ?[place]: 3.5 5.4 g/dL. ?Infant: 4.4 5.4 g/dL. [...] provider. Document Revised: 03/26/2021 Document Reviewed: 03/26/2021 [employer] Patient Education 2022 [employer]. Follow Up Care 05/22/2023 14:57:40 With:Sylvain RICE, BRENNAN Mello, ONC Address: When: Unknown Comments:Start Actonel 35 mg once a week with full glass of water in am in upright position, again only once a week.Continue Femara once daily.Calcium 500 mg twice daily.Continue vitamin D 2000 units daily.Labs in 3 months including CBC with differential, CMP, myeloma labs.Return in 3 months. [facility] 05-01-2023 Hospital Discharge instructions Follow Up Care 05/01/2023 10:39:18 With:Neftali Narayan Address: [address] [phone] Business (1) When: Unknown Comments:Proceed with radiation oncology consult and adjuvant radiation once recommended by them.LFTS and Bone density scan now.Start Femara 2.5 mg once daily one week after completing the radiation to the left breast.Start calcium 500 mg one pill twice daily.Start vitamin D 2000 units daily.LFTs 4 weeks after starting Femara and RTC then. [facility] 04-25-2023 Hospital Discharge instructions Follow Up Care 04/25/2023 12:37:04 With:Neftali Narayan Address: [place] [phone] Business (1) When: Unknown Comments:The plan will need to do Oncotype DX scoreReferral to radiation oncology for evaluation for need for adjuvant radiation. Return in 2 to 3 weeks for oncotype DX results [facility] 01-03-2022 Note PROCEDURE: XR FOOT R T MIN 3 VIEWS HISTORY: Cellulitis ; acute second toe pain COMPARISON: None. FINDINGS: BONES:No fracture, acute abnormality, or significant arthropathy. SOFT TISSUES:No visible soft tissue swelling. EFFUSION:None visible. OTHER: Negative. IMPRESSION: 1. No appreciable bone or soft tissue abnormality to account for patient's symptoms. Electronically authenticated by: LUCIEN BONILLA Date: 2022-01-03 17:34 [facility] Evaluation + Plan note Future Appointments Appointment Date:03/01/2023 09:00:00 AM Scheduled Provider: Location:.MAMMOGRAM Appointment Type:MA Needle Loc (FT) Appointment Date:03/01/2023 11:00:00 AM Scheduled Provider: Location:.NUCLEAR MED Appointment Type:NM Lymphoscintigraphy (FT) Appointment Date:03/01/2023 12:00:00 PM Scheduled Provider: Location:[facility] Appointment Type:Surgery FT Appointment Date:03/01/2023 02:00:00 PM Scheduled Provider: Location:.MAMMOGRAM Appointment Type:MA Diagnostic (FT) Appointment Date:03/13/2023 03:00:00 PM Scheduled Provider:Lauro Simon MD Location:[facility] Appointment Type:GS Post Op 15 Future Scheduled TestsMA Breast Needle Loc w/ Guidance, Left 03/01/23NM Lymphoscintigraphy 03/01/23MA Mamm Diag w/CAD if perf and 3D LT 03/01/23 [facility] Evaluation + Plan note Future Appointments Appointment Date:03/22/2023 09:00:00 AM Scheduled Provider: Location:.MAMMOGRAM Appointment Type:MA Needle Loc (FT) Appointment Date:03/22/2023 10:00:00 AM Scheduled Provider: Location:.[facility] MED Appointment Type:NM Lymphoscintigraphy (FT) Appointment Date:03/22/2023 01:00:00 PM Scheduled Provider: Location:[facility] Appointment Type:Surgery FT Appointment Date:03/22/2023 03:00:00 PM Scheduled Provider: Location:.MAMMOGRAM Appointment Type:MA Diagnostic (FT) Appointment Date:04/03/2023 02:00:00 PM Scheduled Provider:Lauro Simon MD Location:[facility] Appointment Type:GS Post Op 15 Future Scheduled TestsMA Breast Needle Loc w/ Guidance, Left 03/22/23NM Lymphoscintigraphy 03/22/23MA Mamm Diag w/CAD if perf and 3D LT 03/22/23 [facility] Evaluation + Plan note Future Appointments Appointment Date:04/03/2023 02:00:00 PM Scheduled Provider:Lauro Simon MD Location:[facility] Appointment Type: Post Op 15 [facility] Evaluation + Plan note Future Appointments Appointment Date:05/22/2023 02:00:00 PM Scheduled Provider: Location:.ONCOLOGY Appointment Type:ONC Office Visit 30 (FT) Appointment Date:07/24/2023 03:00:00 PM Scheduled Provider:Lauro Simon MD Location:[facility] Appointment Type:[facility] 15 [facility] Evaluation + Plan note Future Appointments Appointment Date:07/24/2023 03:00:00 PM Scheduled Provider:Lauro Simon MD Location:[facility] Appointment Type:[facility] Appointment Date:08/14/2023 02:30:00 PM Scheduled Provider: Location:.ONCOLOGY Appointment Type:ONC Office Visit 30 (FT) Future Scheduled TestsHepatic Function Panel 08/07/23BD Bone Density DEXA 05/23/23 [facility] Evaluation + Plan note Future Appointments Appointment Date:07/24/2023 03:00:00 PM Scheduled Provider:Lauro Simon MD Location:[facility] Appointment Type:[facility] Appointment Date:08/14/2023 02:30:00 PM Scheduled Provider: Location:.ONCOLOGY Appointment Type:ONC Office Visit 30 (FT) Future Scheduled TestsHepatic Function Panel 08/07/23 [facility] Evaluation + Plan note Future Appointments Appointment Date:08/14/2023 02:30:00 PM Scheduled Provider: Location:.ONCOLOGY Appointment Type:ONC Office Visit 30 (FT) Appointment Date:11/06/2023 03:00:00 PM Scheduled Provider:Lauro Simon MD Location:[facility] Appointment Type:[place] [id number] Future Scheduled TestsHepatic Function Panel 08/07/23 [facility] Evaluation + Plan note Future Appointments Appointment Date:09/04/2023 02:30:00 PM Scheduled Provider:Nefatli Narayan MD Location:.ONCOLOGY Appointment Type:ONC Office Visit 30 (FT) Appointment Date:11/06/2023 03:00:00 PM Scheduled Provider:Lauro Simon MD Location:[facility] Appointment Type: Established 15 [facility] Evaluation + Plan note Future Appointments Appointment Date:11/06/2023 03:00:00 PM Scheduled Provider:Lauro Simon MD Location:[facility] Appointment Type: Established 15 Appointment Date:12/04/2023 02:30:00 PM Scheduled Provider:Neftali Narayan MD Location:FT.ONCOLOGY Appointment Type:ONC Office Visit 30 (FT) Future Scheduled TestsIFE and PE, Serum 12/03/23Immunoglobs. A/E/G/M 12/03/23Free K+L Lt Chains,Qn,S 12/03/23CBC w/ Auto Diff 12/03/23Comprehensive Metabolic Panel 12/03/23 [facility] Evaluation + Plan note Future Appointments Appointment Date:12/04/2023 02:30:00 PM Scheduled Provider:Neftali Narayan MD Location:FT.ONCOLOGY Appointment Type:ONC Office Visit 30 (FT) Appointment Date:02/05/2024 03:00:00 PM Scheduled Provider:Lauro Simon MD Location:[facility] Appointment Type: Established 15 Future Scheduled TestsIFE and PE, Serum 12/03/23Immunoglobs. A/E/G/M 12/03/23Free K+L Lt Chains,Qn,S 12/03/23CBC w/ Auto Diff 12/03/23Comprehensive Metabolic Panel 12/03/23 [facility] [place] Evaluation + Plan note Future Appointments Appointment Date:12/04/2023 02:30:00 PM Scheduled Provider:Neftali Narayan MD Location:.ONCOLOGY Appointment Type:ONC Office Visit 30 (FT) Appointment Date:02/05/2024 03:00:00 PM Scheduled Provider:Lauro Simon MD Location:[facility] Appointment Type:GS Established 15 Diagnostic Tests PendingIFE and PE, Serum 11/20/23Immunoglobs. A/E/G/M 11/20/23Free K+L Lt Chains,Qn,S 11/20/23 [facility] Evaluation + Plan note Future Appointments Appointment Date:02/05/2024 03:00:00 PM Scheduled Provider:Lauro Simon MD Location:[facility] Appointment Type: Established 15 Appointment Date:03/04/2024 03:30:00 PM Scheduled Provider:Neftali Narayan MD Location:FT.ONCOLOGY Appointment Type:ONC Office Visit 30 (FT) Future Scheduled TestsComprehensive Metabolic Panel 02/26/24 [facility] Evaluation + Plan note Future Appointments Appointment Date:03/11/2024 03:00:00 PM Scheduled Provider:Neftali Narayan MD Location:FT.ONCOLOGY Appointment Type:ONC Office Visit 30 (FT) Appointment Date:05/27/2024 03:00:00 PM Scheduled Provider:Lauro Simon MD Location:[facility] Appointment Type: Established 15 [facility] General Surgery [place] Evaluation + Plan note Future Appointments Appointment Date:05/27/2024 03:00:00 PM Scheduled Provider:Lauro Simon MD Location:[facility] Appointment Type: Established 15 Appointment Date:09/02/2024 03:20:00 PM Scheduled Provider:Neftali Narayan MD Location:FT.ONCOLOGY Appointment Type:ONC Office Visit 20 (FT) Future Scheduled TestsCBC w/ Auto Diff 09/11/24Comprehensive Metabolic Panel 09/11/24 [facility] Evaluation + Plan note Future Appointments Appointment Date:04/30/2024 03:40:00 PM Scheduled Provider:Neftali Narayan MD Location:FT.ONCOLOGY Appointment Type:ONC Office Visit 20 (FT) Appointment Date:05/27/2024 03:00:00 PM Scheduled Provider:Lauro Simon MD Location:[facility] Appointment Type: Established 15 Diagnostic Tests PendingCA 15-3 04/09/24CA 27 29 04/09/24IFE and PE, Serum 04/09/24Free K+L Lt Chains,Qn,S 04/09/24IgE, Quant 04/09/24 Future Scheduled TestsCBC w/ Auto Diff 03/28/24CBC w/ Auto Diff 09/11/24Comprehensive Metabolic Panel 03/28/24Comprehensive Metabolic Panel 09/11/24CT Biopsy, Bone Superficial 04/10/24 [facility] Evaluation + Plan note Future Appointments Appointment Date:04/30/2024 03:40:00 PM Scheduled Provider:Sylvain RICE, Neftali Ling Location:.ONCOLOGY Appointment Type:ONC Office Visit 20 (FT) Appointment Date:05/27/2024 03:00:00 PM Scheduled Provider:Lauro Simon MD Location:[facility] Appointment Type: Established 15 Future Scheduled TestsCBC w/ Auto Diff 03/28/24CBC w/ Auto Diff 09/11/24Comprehensive Metabolic Panel 03/28/24Comprehensive Metabolic Panel 09/11/24CT Biopsy, Bone Superficial 04/10/24 [facility] Evaluation + Plan note Future Appointments Appointment Date:04/19/2024 09:00:00 AM Scheduled Provider: Location:[facility] Appointment Type:CT Biopsy (FT) Appointment Date:04/19/2024 09:00:00 AM Scheduled Provider: Location:[facility] Appointment Type:Surgery FT Appointment Date:04/30/2024 03:40:00 PM Scheduled Provider:Neftali Narayan MD Location:.ONCOLOGY Appointment Type:ONC Office Visit 20 (FT) Appointment Date:05/27/2024 03:00:00 PM Scheduled Provider:Lauro Simon MD Location:[facility] Appointment Type: Established 15 Future Scheduled TestsCBC w/ Auto Diff 03/28/24CBC w/ Auto Diff 09/11/24Comprehensive Metabolic Panel 03/28/24Comprehensive Metabolic Panel 09/11/24CT Biopsy, Bone Superficial 04/19/24 [facility] Evaluation + Plan note Future Appointments Appointment Date:04/30/2024 03:40:00 PM Scheduled Provider:Neftali Narayan MD Location:.ONCOLOGY Appointment Type:ONC Office Visit 20 (FT) Appointment Date:05/27/2024 03:00:00 PM Scheduled Provider:Lauro Simon MD Location:[facility] Appointment Type: Established 15 Future Scheduled TestsCBC w/ Auto Diff 03/28/24CBC w/ Auto Diff 09/11/24Comprehensive Metabolic Panel 03/28/24Comprehensive Metabolic Panel 09/11/24 [facility] Evaluation + Plan note Future Appointments Appointment Date:05/27/2024 03:00:00 PM Scheduled Provider:Lauro Simon MD Location:[facility] Appointment Type:[facility] 15 Appointment Date:08/27/2024 03:20:00 PM Scheduled Provider:Neftali Narayan MD Location:.ONCOLOGY Appointment Type:ONC Office Visit 20 (FT) Future Scheduled TestsCBC w/ Auto Diff 03/28/24CBC w/ Auto Diff 2//25CBC w/ Auto Diff 09/11/24Comprehensive Metabolic Panel 03/28/24Comprehensive Metabolic Panel 08/31/24Comprehensive Metabolic Panel 09/11/24 [facility] Evaluation + Plan note Future Appointments Appointment Date:08/27/2024 03:20:00 PM Scheduled Provider:Neftali Narayan MD Location:.ONCOLOGY Appointment Type:ONC Office Visit 20 (FT) Appointment Date:12/10/2024 02:40:00 PM Scheduled Provider:Lauro Simon MD Location:[facility] Appointment Type: Established 15 Future Scheduled TestsCBC w/ Auto Diff 03/28/24CBC w/ Auto Diff 2/15/25CBC w/ Auto Diff /Comprehensive Metabolic Panel 03/28/24Comprehensive Metabolic Panel 08/31/24Comprehensive Metabolic Panel 09/11/24 [facility] General Surgery [place] Evaluation + Plan note Future Appointments Appointment Date:04/09/2024 11:40:00 AM Scheduled Provider:Neftali Narayan MD Location:FT.ONCOLOGY Appointment Type:ONC Office Visit 20 (FT) Appointment Date:05/27/2024 03:00:00 PM Scheduled Provider:Lauro Simon MD Location:[facility] Appointment Type: Established 15 Future Scheduled TestsCBC w/ Auto Diff 03/28/24CBC w/ Auto Diff 09/11/24Comprehensive Metabolic Panel 03/28/24Comprehensive Metabolic Panel 09/11/24 [facility] Evaluation + Plan note Future Appointments Appointment Date:08/27/2024 03:20:00 PM Scheduled Provider:Neftali Narayan MD Location:[facility] Appointment Type:ONC Office Visit 20 (FT) Appointment Date:12/10/2024 02:40:00 PM Scheduled Provider:Lauro Simon MD Location:[facility] Appointment Type: Established 15 Future Scheduled TestsCBC w/ Auto Diff 03/28/24CBC w/ Auto Diff 08/31/24Comprehensive Metabolic Panel 03/28/24Comprehensive Metabolic Panel 08/31/24 [facility] Evaluation + Plan note Future Appointments Appointment Date:12/10/2024 02:40:00 PM Scheduled Provider:Lauro Simon MD Location:[facility] Appointment Type: Established 15 Appointment Date:12/31/2024 02:00:00 PM Scheduled Provider:Neftali Narayan MD Location:[facility] Appointment Type:ONC Office Visit 20 (FT) Future Scheduled TestsCA 15-3 01/01/25CA 27 29 01/01/25IFE and PE, Serum 01/01/25Immunoglobs. A/E/G/M 01/01/25Free K+L Lt Chains,Qn,S 01/01/25CBC w/ Auto Diff 03/28/24CBC w/ Auto Diff 08/31/24CBC w/ Auto Diff 01/01/25Comprehensive Metabolic Panel 03/28/24Comprehensive Metabolic Panel 08/31/24Comprehensive Metabolic Panel 01/01/25 [facility] Evaluation + Plan note Future Appointments Appointment Date:12/31/2024 02:00:00 PM Scheduled Provider:Neftali Narayan MD Location:.[facility]COL[facility] Appointment Type:ONC Office Visit 20 (FT) Appointment Date:06/02/2025 03:00:00 PM Scheduled Provider:Lauro Simon MD Location:[facility] Appointment Type:GS Established 15 Future Scheduled TestsCA 15-3 01/01/25CA 27 29 01/01/25IFE and PE, Serum 01/01/25Immunoglobs. A/E/G/M 01/01/25Free K+L Lt Chains,Qn,S 01/01/25CBC w/ Auto Diff 03/28/24CBC w/ Auto Diff 08/31/24CBC w/ Auto Diff 01/01/25Comprehensive Metabolic Panel 03/28/24Comprehensive Metabolic Panel 08/31/24Comprehensive Metabolic Panel 01/01/25 [facility] [place] Evaluation + Plan note Future Appointments Appointment Date:12/31/2024 02:00:00 PM Scheduled Provider:Neftali Narayan MD Location:.ONCOL[facility] Appointment Type:ONC Office Visit 20 (FT) Appointment Date:06/02/2025 03:00:00 PM Scheduled Provider:Lauro Simon MD Location:[facility] Appointment Type:GS Established 15 Diagnostic Tests PendingCA 15-3 12/23/24CA 27 29 12/23/24Free K+L Lt Chains,Qn,S 12/23/24IFE and PE, Serum 12/23/24Immunoglobs. A/E/G/M 12/23/24 Future Scheduled TestsCBC w/ Auto Diff 03/28/24CBC w/ Auto Diff 08/31/24Comprehensive Metabolic Panel 03/28/24Comprehensive Metabolic Panel 08/31/24 [facility] Evaluation + Plan note Future Appointments Appointment Date:06/02/2025 03:00:00 PM Scheduled Provider:Lauro Simon MD Location:[facility] Appointment Type:[facility] 15 Appointment Date:07/01/2025 02:00:00 PM Scheduled Provider:Neftali Narayan MD [facility] Type:ONC Office Visit 20 (FT) Future Scheduled TestsCA 15-3 06/18/25CA 27 29 06/18/25Immunoglobs. A/E/G/M 06/18/25Free K+L Lt Chains,Qn,S 06/18/25CBC w/ Auto Diff 06/18/25Comprehensive Metabolic Panel 06/18/25Protein Electrophoresis 06/18/25BD Bone Density DEXA 05/21/25 [facility] Evaluation note Diagnosis Multiple sclerosis (HCC)- Primary Multiple sclerosis [facility] [place] [facility] Diagnosis Encounter for gynecological examination without abnormal finding Screening for malignant neoplasm of cervix Screening for malignant neoplasm of the cervix Encounter for screening mammogram for breast cancer [facility] [place] [facility] Diagnosis 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 Unspecified disorders of arteries and arterioles Other specified symptoms and signs involving the circulatory and respiratory systems Benign neoplasm of heart [facility] [place] [facility]* Diagnosis 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 Unspecified disorders of arteries and arterioles Benign neoplasm of heart [facility] [place] [facility]* Diagnosis 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 Unspecified disorders of arteries and arterioles Benign neoplasm of heart [facility] [place] [facility]* Diagnosis Disorder of artery or arteriole (HCC) Unspecified disorders of arteries and arterioles Benign neoplasm of heart [facility] [place] [facility]* Diagnosis Disorder of artery or arteriole (HCC) Unspecified disorders of arteries and arterioles Benign neoplasm of heart [facility] [place] [facility] Diagnosis Disorder of artery or arteriole (HCC) Unspecified disorders of arteries and arterioles Other specified symptoms and signs involving the circulatory and respiratory systems Benign neoplasm of heart documented in this encounter [facility] note* Diagnosis Disorder of artery or arteriole (HCC) Unspecified disorders of arteries and arterioles Benign neoplasm of heart documented in this encounter [facility] note* Diagnosis Preoperative respiratory examination- Primary Pre-operative respiratory examination Left atrial mass Bronchiectasis without complication (HCC) Bronchiectasis without acute exacerbation documented in this encounter [facility] note* Diagnosis Left atrial mass- Primary Bronchiectasis without complication (HCC) Bronchiectasis without acute exacerbation documented in this encounter [facility] note* Diagnosis Bronchiectasis without complication (HCC)- Primary Bronchiectasis without acute exacerbation documented in this encounter [facility] note* Diagnosis Pre-operative cardiovascular examination- Primary Other chest pain Benign neoplasm of heart Pre-operative cardiovascular examination Other chest pain Benign neoplasm of heart Pre-operative cardiovascular examination Benign neoplasm of heart documented in this encounter [facility] note* Diagnosis Pre-operative cardiovascular examination Benign neoplasm of heart Pre-operative cardiovascular examination Benign neoplasm of heart documented in this encounter [facility] note* Diagnosis Pre-op exam- Primary Preoperative examination, unspecified Pre-op testing Preoperative examination, unspecified Pre-operative cardiovascular examination Benign neoplasm of heart documented in this encounter [facility] note* Diagnosis Encounter for preoperative anesthesiology assessment for cardiac surgery- Primary Pre-operative cardiovascular examination Benign neoplasm of heart documented in this encounter [facility] note* Diagnosis Hx of cardiac cath [Z98.890]- Primary Other postprocedural status Pre-operative cardiovascular examination Benign neoplasm of heart documented in this encounter [facility] note* Diagnosis Pre-operative cardiovascular examination Benign neoplasm of heart Pre-operative cardiovascular examination Benign neoplasm of heart [facility] [place] [facility]* Diagnosis Bronchiectasis without complication (HCC)- Primary Bronchiectasis without acute exacerbation Pre-operative cardiovascular examination Benign neoplasm of heart Pre-operative cardiovascular examination Benign neoplasm of heart documented in this encounter [facility] note* Diagnosis 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 Unspecified disorders of arteries and arterioles Hx of cardiac cath Other postprocedural status Atelectasis Pulmonary collapse Chest pain, unspecified type [facility] Diagnosis 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 Bronchiectasis without complication (HCC) Bronchiectasis without acute exacerbation ABLA (acute blood loss anemia) [facility] [place] [facility]* Diagnosis Surgery follow-up Follow-up examination, following unspecified surgery documented in this encounter [facility] course Narrative No data available for this section [facility] instructions No data available for this section [facility] No data available for this section [facility] Diagnostic Procedure Only (Routine) - New Request Specialty Diagnoses / Procedures Referred By Contac Referred To Contact MOLECULAR & FUNCTIONAL IMAGING Diagnoses Disorder of artery or arteriole (HCC) Other specified symptoms and signs involving the circulatory and respiratory systems Benign neoplasm of heart Procedures NM LUNG VENT / PERF VQ PULMONARY VENTILATION & PERFUSION IMAGING Janell Gonzáles MD [address] [place] [address] Molecular & Functional Imaging [address] [place] [address] Referral ID Status Reason Start Date Expiration Date Visits Requested Visits Authorized [id number] New Request Auto-Generat ed Referral 4 07/10/2025 1 1 * Outpatient Procedure (Routine) - New Request Specialty Diagnoses / Procedures Referred By Contac t Referred To Contact [facility] Diagnoses Disorder of artery or arteriole (HCC) Other specified symptoms and signs involving the circulatory and respiratory systems Benign neoplasm of heart Procedures US CAROTID ARTERIES OBEY VAS LAB DUPLEX SCAN EXTRACRANIAL ART COMPL BI STUDY Janell Gonzáles MD [address] [place] [address] [facility] [place] [address] Referral ID Status Reason Start Date Expiration Date Visits Requested Visits Authorized [id number] New Request Auto-Generat ed Referral 4 06/10/2025 1 1 * Outpatient Procedure (Routine) - New Request Specialty Diagnoses / Procedures [facility] To [facility] Diagnoses 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 Procedures LUNG DIFFUSION CAPACITY (DLCO) DIFFUSING CAPACITY Janell Gonzáles MD [address] [place] [address] [place] [address] Referral ID Status Reason Start Date Expiration Date Visits Requested Visits Authorized [id number] New Request Auto-Generat ed Referral 4 07/10/2025 1 1 * Outpatient Procedure (Routine) - New Request Specialty Diagnoses / Procedures Referred By Earnestine t Referred To Contact [facility] Diagnoses 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 Procedures CTA CHEST (GATED) W IVCON CT ANGIOGRAPHY CHEST W/CONTRAST/NONCONTRAST Janell Gonzáles MD [address] [place] [address] Ct Imaging [place] [address] Referral ID Status Reason Start Date Expiration Date Visits Requested Visits Authorized [id number] New Request Auto-Generat ed Referral 4 07/10/2025 1 1 * Outpatient Procedure (Routine) - New Request Specialty Diagnoses / Procedures [facility] Referred To Contact [facility] Diagnoses 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 Procedures ECHO ECHO TTHRC R-T 2D W/WOM-MODE COMPL SPEC&COLR D Janell Gonzáles MD [address] [place] [address] [place] [address] Referral ID Status Reason Start Date Expiration Date Visits Requested Visits Authorized [id number] New Request Auto-Generat ed Referral 4 06/10/2025 1 1 * Outpatient Procedure (Routine) - New Request Specialty Diagnoses / Procedures [facility] Referred To Contact [facility] Diagnoses 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 Procedures ECG COMPLETE ECG ROUTINE ECG W/LEAST 12 LDS W/I&R Janell Gonzáles MD [address] [place] [address] [place] [address] Referral ID Status Reason Start Date Expiration Date Visits Requested Visits Authorized [id number] New Request Auto-Generat ed Referral 4 06/10/2025 1 1 * Consult, Test, Treat (Routine) - Authorized Specialty Diagnoses / Procedures [facility] Referred To Contact Cardiac Surg Diagnoses 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 Procedures CARDIOTHORACIC PREOP EVALUATION OFFICE/OUTPATIENT NEW HIGH MDM 60 MINUTES Janell Gonzáles MD [address] [place] [address] Referral ID Status Reason Start Date Expiration Date Visits Requested Visits Authorized [id number] Authorized PCP Requested Referral 4 06/10/2025 1 1 * Consult, Test, Treat (Routine) - Authorized Specialty Diagnoses / Procedures Referred By Contac t Referred To Contact Cardiology Diagnoses 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 Procedures CONSULT TO CARDIOLOGY OFFICE/OUTPATIENT [facility] 60 MINUTES Janell Gonzáles MD [address] [place] [address] Referral ID Status Reason Start Date Expiration Date Visits Requested Visits Authorized [id number] Authorized PCP Requested Referral 06/10/2025 1 1 [facility] for referral (narrative)* Diagnostic Procedure Only (Routine) - Closed Specialty Diagnoses / Procedures [facility] Referred To Contact MOLECULAR & FUNCTIONAL IMAGING Diagnoses Disorder of artery or arteriole (HCC) Other specified symptoms and signs involving the circulatory and respiratory systems Benign neoplasm of heart Procedures NM LUNG VENT / PERF VQ PULMONARY VENTILATION & PERFUSION IMAGING Janell Gonzáles MD [address] [place] [address] Molecular & Functional Imaging [address] [place] [address] Referral ID Status Reason Start Date Expiration Date V isits Requested Visits Authorized [id number] Closed Auto-Generate d Referral 06/10/2024 07/10/2025 1 1 [facility] for referral (narrative)* Outpatient Procedure (Routine) - Authorized Specialty Diagnoses / Procedures Referred By Contac t Referred To Contact [facility] Diagnoses Pre-operative cardiovascular examination Benign neoplasm of heart Procedures ECG COMPLETE ECG ROUTINE ECG W/LEAST 12 LDS W/I&R Janell Gonzáles MD [address] [place] [address] Heart [facility] Vascular [address] [address] Referral ID Status Reason Start Date Expiration Date Visits Requested Visits Authorized [id number] Authorized Auto-Generat ed Referral 08/15/2024 08/15/2025 1 1 * Consult, Test, Treat (Routine) - Authorized Specialty Diagnoses / Procedures Referred By Earnestine dozier Referred To Contact Infectious Diseases Diagnoses Pre-operative cardiovascular examination Benign neoplasm of heart Procedures CONSULT TO INFECTIOUS DISEASES OFFICE/OUTPATIENT NEW HIGH MDM 60 MINUTES Janell Gonzáles MD [address] [place] [address] Referral ID Status Reason Start Date Expiration Date Visits Requested Visits Authorized [id number] Authorized PCP Requested Referral 08/15/2024 08/15/2025 1 1 * Consult, Test, Treat (Routine) - Authorized Specialty Diagnoses / Procedures Referred By Earnestine dozier Referred To Contact Cardiac Surg Diagnoses Pre-operative cardiovascular examination Benign neoplasm of heart Procedures CARDIOTHORACIC PREOP EVALUATION OFFICE/OUTPATIENT [facility] 60 MINUTES Janell Gonzáles MD [address] [facility] [place] [address] Referral ID Status Reason Start Date Expiration Date Visits Requested Visits Authorized [id number] Authorized PCP Requested Referral 08/15/2024 08/15/2025 1 1 [facility] N[facility]* Consult, Test, Treat (Routine) - Closed Specialty Diagnoses / Procedures Referred By Earnestine dozier Referred To Contact Cardiac Surg Diagnoses Pre-operative cardiovascular examination Benign neoplasm of heart Procedures CARDIOTHORACIC PREOP EVALUATION OFFICE/OUTPATIENT NEW [facility] 60 MINUTES Janell Gonzáles MD [address] [facility] [place] [address] Phone: tel: fax: Referral ID Status Reason Start Date Expiration Date V isits Requested Visits Authorized [id number] Closed PCP Requested Referral 08/15/2024 08/15/2025 1 1 [facility] Summary Purpose Family History No Family [...] Procedures CONSULT TO PULM/CRITICAL CARE OFFICE/OUTPATIENT NEW HIGH MDM 60 MINUTES Janell Gonzáles MD [address] [place] [address] Referral ID Status Reason Start Date Expiration Date V isits Requested Visits Authorized [id number] Closed PCP Requested Referral 07/12/2024 07/12/2025 1 1 Specialty Diagnoses / Procedures Referred By Contac t Referred To Contact CT IMAGING Diagnoses 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 Procedures CTA CHEST (GATED) W IVCON CT ANGIOGRAPHY CHEST W/CONTRAST/NONCONTRAST Janell Gonzáles MD [address] [place] [address] Ct Imaging [place] [address] Referral ID Status Reason Start Date Expiration Date V isits Requested Visits Authorized [id number] Closed Auto-Generate d Referral 06/10/2024 07/10/2025 1 1 Specialty Diagnoses / Procedures [facility] Referred To Contact [facility] Procedures CARDIOVASCULAR MEDICINE OP FOLLOW UP APPT ORDER Deangelo Morales MD [address] [place] [address] Heart [facility] [address] [place] [address] Referral ID Status Reason Start Date Expiration Date Visits Requested Visits Authorized [id number] Authorized PCP Requested Referral 07/11/2025 1 1 Additional Source Comments INFORMATION SOURCE (unrecogn ized section and content) DATE CREATED AUTHOR 01/01/2022 [facility] dical Specialist DATE CREATED AUTHOR AUTHOR'S ORGANIZ ATION 12/23/2022 Nessa Iraheta [facility] DATE CREATED AUTHOR AUTHOR'S ORGANIZ ATION 02/28/2024 [facility] DATE CREATED AUTHOR AUTHOR'S ORGANIZ ATION 04/03/2024 [facility] DATE CREATED AUTHOR AUTHOR'S ORGANIZ ATION 04/12/2024 [facility] DATE CREATED AUTHOR AUTHOR'S ORGANIZ ATION 04/13/2024 [facility] DATE CREATED AUTHOR AUTHOR'S ORGANIZ ATION 04/14/2024 [facility] DATE CREATED AUTHOR AUTHOR'S ORGANIZ ATION 04/16/2024 [facility] DATE CREATED AUTHOR AUTHOR'S ORGANIZ ATION 04/19/2024 [facility] DATE CREATED AUTHOR AUTHOR'S ORGANIZ ATION 04/21/2024 [facility] DATE CREATED AUTHOR AUTHOR'S ORGANIZ ATION 04/23/2024 [facility] DATE CREATED AUTHOR AUTHOR'S ORGANIZ ATION 05/02/2024 [facility] DATE CREATED AUTHOR AUTHOR'S ORGANIZ ATION 05/29/2024 [facility] DATE CREATED AUTHOR AUTHOR'S ORGANIZ ATION 08/13/2024 [facility] DATE CREATED AUTHOR AUTHOR'S ORGANIZ ATION 08/17/2024 [facility] DATE CREATED AUTHOR AUTHOR'S ORGANIZ ATION 12/12/2024 [facility] DATE CREATED AUTHOR AUTHOR'S ORGANIZ ATION 12/24/2024 [facility] DATE CREATED AUTHOR AUTHOR'S ORGANIZ ATION 12/28/2024 [facility] DATE CREATED AUTHOR AUTHOR'S ORGANIZ ATION 01/03/2025 [facility] DATE CREATED AUTHOR AUTHOR'S ORGANIZ ATION 01/05/2025 [facility] DATE CREATED AUTHOR AUTHOR'S ORGANIZ ATION 02/09/2025 [facility] DATE CREATED AUTHOR AUTHOR'S ORGANIZ ATION 03/10/2025 [facility] DATE CREATED AUTHOR AUTHOR'S ORGANIZ ATION 03/16/2025 [facility] DATE CREATED AUTHOR AUTHOR'S ORGANIZ ATION 03/17/2025 [facility] Patient Care team informatio n (unrecognized section and content) Nitrocellulose Operator Relationship Specialty Start Date End Date Brianna Yanez MD PCP - General Family Medicine 09/09/10 Nitrocellulose Operator Relationship Specialty Start Date End Date Brianna Yanez MD [address] [place] [address] PCP - General Family Medicine 12/28/22 Nitrocellulose Operator Relationship Specialty Start Date End Date Brianna Yanez MD [address] [place] [address] PCP - General Family Medicine 12/28/22 Nitrocellulose Operator Relationship Specialty Start Date End Date Brianna Yanez MD PCP - General Family Medicine 09/09/10 German Hurtado MD [address] [place] [address] Referring Cardiology 06/04/24 Unspecified, Cardiac Surgeon - [address] [place] [address] Surgeon Cardiac Surg 06/04/24 Nitrocellulose Operator Relationship Specialty Start Date End Date Brianna Yanez MD PCP - General Family Medicine 09/09/10 German Hurtado MD [address] [place] [address] Referring Cardiology 06/04/24 Unspecified, Cardiac Surgeon - [address] [place] [address] Surgeon Cardiac Surg 06/04/24 06/04/24 Janell Gonzáles MD [address] [facility] [place] [place] [address] Surgeon Cardiac Surg 06/05/24 Nitrocellulose Operator Relationship Specialty Start Date End Date Brianna Yanez MD PCP - General Family Medicine 09/09/10 German Hurtado MD [address] [place] [address] Referring Cardiology 06/04/24 Janell Gonzáles MD [address] [place] [address] Surgeon Cardiac Surg 06/05/24 Deangelo Morales MD [address] [address] Primary Staff Physician Cardiology 07/11/24 Nitrocellulose Operator Relationship Specialty Start Date End Date Brianna Yanez MD PCP - General Family Medicine 09/09/10 German Hurtado MD [address] [place] [address] Referring Cardiology 06/04/24 Janell Gonzáles MD [address] [place] [address] Surgeon Cardiac Surg 06/05/24 Deangelo Morales MD [address] [address] Primary Staff Physician Cardiology 07/11/24 Nitrocellulose Operator Relationship Specialty Start Date End Date Brianna Yanez MD PCP - General Family Medicine 09/09/10 German Hurtado MD [address] [place] [address] Referring Cardiology 06/04/24 Janell Gonzáles MD [address] [place] [address] Surgeon Cardiac Surg 06/05/24 Deangelo Morales MD [address] [address] Primary Staff Physician Cardiology 07/11/24 Nitrocellulose Operator Relationship Specialty Start Date End Date Brianna Yanez MD PCP - General Family Medicine 09/09/10 German Hurtado MD [address] [place] [address] Referring Cardiology 06/04/24 Janell Gonzáles MD [address] [place] [address] Surgeon Cardiac Surg 06/05/24 Deangelo Morales MD [address] [address] Primary Staff Physician Cardiology 07/11/24 Nitrocellulose Operator Relationship Specialty Start Date End Date Brianna Yanez MD PCP - General Family Medicine 09/09/10 German Hurtado MD [address] [place] [address] Referring Cardiology 06/04/24 Janell Gonzáles MD [address] [place] [address] Surgeon Cardiac Surg 06/05/24 Deangelo Morales MD [address] [address] Primary Staff Physician Cardiology 07/11/24 Nitrocellulose Operator Relationship Specialty Start Date End Date Brianna Yanez MD PCP - General Family Medicine 09/09/10 German Hurtado MD [address] [place] [address] Referring Cardiology 06/04/24 Janell Gonzáles MD [address] [place] [address] Surgeon Cardiac Surg 06/05/24 Deangelo Morales MD [address] [address] Primary Staff Physician Cardiology 07/11/24 Nitrocellulose Operator Relationship Specialty Start Date End Date Brianna Yanez MD PCP - General Family Medicine 09/09/10 German Hurtado MD [address] [place] [address] Referring Cardiology 06/04/24 Janell Gonzáles MD [address] [place] [address] Surgeon Cardiac Surg 06/05/24 Deangelo Morales MD [address] [address] Primary Staff Physician Cardiology 07/11/24 Nitrocellulose Operator Relationship Specialty Start Date End Date Brianna Yanez MD PCP - General Family Medicine 09/09/10 German Hurtado MD [address] [place] [address] Referring Cardiology 06/04/24 Janell Gonzáles MD [address] [place] [address] Surgeon Cardiac Surg 06/05/24 Deangelo Morales MD [address] [address] Primary Staff Physician Cardiology 07/11/24 Nitrocellulose Operator Relationship Specialty Start Date End Date Brianna Yanez MD PCP - General Family Medicine 09/09/10 German Hurtado MD [address] [place] [address] Referring Cardiology 06/04/24 Janell Gonzáles MD [address] [place] [address] Surgeon Cardiac Surg 06/05/24 Deangelo Morales MD [address] [address] Primary Staff Physician Cardiology 07/11/24 Nitrocellulose Operator Relationship Specialty Start Date End Date Brianna Yanez MD PCP - General Family Medicine 09/09/10 German Hurtado MD [address] [place] [address] Referring Cardiology 06/04/24 Janell Gonzáles MD [address] [place] [address] Surgeon Cardiac Surg 06/05/24 Deangelo Morales MD [address] [address] Primary Staff Physician Cardiology 07/11/24 Nitrocellulose Operator Relationship Specialty Start Date End Date Brianna Yanez MD PCP - General Family Medicine 09/09/10 German Hurtado MD [address] [place] [address] Referring Cardiology 06/04/24 Janell Gonzáles MD [address] [place] [address] Surgeon Cardiac Surg 06/05/24 Deangelo Morales MD [address] [address] Primary Staff Physician Cardiology 07/11/24 Nitrocellulose Operator Relationship Specialty Start Date End Date Brianna Yanez MD PCP - General Family Medicine 09/09/10 German Hurtado MD [address] [place] [address] Referring Cardiology 06/04/24 Janell Gonzáles MD [address] [place] [address] Surgeon Cardiac Surg 06/05/24 Deangelo Morales MD [address] [address] Primary Staff Physician Cardiology 07/11/24 Nitrocellulose Operator Relationship Specialty Start Date End Date Brianna Yanez MD PCP - General Family Medicine 09/09/10 German Hurtado MD [address] [place] [address] Referring Cardiology 06/04/24 Janell Gonzáles MD [address] [place] [address] Surgeon Cardiac Surg 06/05/24 Deangelo Morales MD [address] [address] Primary Staff Physician Cardiology 07/11/24 Nitrocellulose Operator Relationship Specialty Start Date End Date Brianna Yanez MD PCP - General Family Medicine 09/09/10 German Hurtado MD [address] [place] [address] Referring Cardiology 06/04/24 Janell Gonzáles MD [address] [place] [address] Surgeon Cardiac Surg 06/05/24 Deangelo Morales MD [address] [address] Primary Staff Physician Cardiology 07/11/24 Nitrocellulose Operator Relationship Specialty Start Date End Date Brianna Yanez MD PCP - General Family Medicine 09/09/10 German Hurtado MD [address] [place] [address] Referring Cardiology 06/04/24 Janell Gonzáles MD [address] [place] [address] Surgeon Cardiac Surg 06/05/24 Deangelo Morales MD [address] [address] Primary Staff Physician Cardiology 07/11/24 Nitrocellulose Operator Relationship Specialty Start Date End Date Brianna Yanez MD PCP - General Family Medicine 09/09/10 German Hurtado MD [address] [place] [address] Referring Cardiology 06/04/24 Janell Gonzáles MD [address] [place] [address] Surgeon Cardiac Surg 06/05/24 Deangelo Morales MD [address] [id number] Primary Staff Physician Cardiology 07/11/24 Nitrocellulose Operator Relationship Specialty Start Date End Date Brianna Yanez MD PCP - General Family Medicine 09/09/10 German Hurtado MD [address] [place] [address] Referring Cardiology 06/04/24 Janell Gonzáles MD [address] [place], [place] [address] Surgeon Cardiac Surg 06/05/24 Deangelo Morales MD [address] [address] Primary Staff Physician Cardiology 07/11/24 Nitrocellulose Operator Relationship Specialty Start Date End Date Brianna Yanez MD PCP - General Family Medicine 09/09/10 German Hurtado MD [address] [place] [address] Referring Cardiology 06/04/24 Janell Gonzáels MD [address] [place] [address] Surgeon Cardiac Surg 06/05/24 Deangelo Morales MD [address] [address] Primary Staff Physician Cardiology 07/11/24 Nitrocellulose Operator Relationship Specialty Start Date End Date Brianna Yanez MD PCP - General Family Medicine 09/09/10 German Hurtado MD [address] [place] [address] Referring Cardiology 06/04/24 Janell Gonzáles MD [address] [place] [address] Surgeon Cardiac Surg 06/05/24 Deangelo Morales MD [address] [phone] Primary Staff Physician Cardiology 07/11/24 Nitrocellulose Operator Relationship Specialty Start Date End Date Brianna Yanez MD PCP - General Family Medicine 09/09/10 German Hurtado MD [address] [place] [address] Referring Cardiology 06/04/24 Janell Gonzáles MD [address] [place] [address] Surgeon Cardiac Surg 06/05/24 Deangelo Morales MD [address] [phone] Primary Staff Physician Cardiology 07/11/24 Nitrocellulose Operator Relationship Specialty Start Date End Date Brianna Yanez MD PCP - General Family Medicine 09/09/10 German Hurtado MD [address] [place] [address] Referring Cardiology 06/04/24 Janell Gonzáles MD [address] [facility] [place] [id number] Surgeon Cardiac Surg 06/05/24 Deangelo Morales MD [address] [place] [address] Primary Staff Physician Cardiology 07/11/24 Source Comments (unrecognize d section and content) In the event this informatio n is protected by the Federal Confidentiality of Alcohol and Drug Abuse Patient Records regulations: The Federal rules restrict any use of the information to criminally investigate or prosecute any alcohol or drug abuse patient.[facility] Hospital[facility] the event this information is protected by the Federal Confidentiality of Alcohol and Drug Abuse Patient Records regulations: The Federal rules restrict any use of the information to criminally investigate or prosecute any alcohol or drug abuse patient.[facility] HospitalIn the event this information is protected by the Federal Confidentiality of Alcohol and Drug Abuse Patient Records regulations: The Federal rules restrict any use of the information to criminally investigate or prosecute any alcohol or drug abuse patient.[facility] HospitalIn the event this information is protected by the Federal Confidentiality of Alcohol and Drug Abuse Patient Records regulations: The Federal rules restrict any use of the information to criminally investigate or prosecute any alcohol or drug abuse patient.[facility] HospitalIn the event this information is protected by the Federal Confidentiality of Alcohol and Drug Abuse Patient Records regulations: The Federal rules restrict any use of the information to criminally investigate or prosecute any alcohol or drug abuse patient.[facility] HospitalIn the event this information is protected by the Federal Confidentiality of Alcohol and Drug Abuse Patient Records regulations: The Federal rules restrict any use of the information to criminally investigate or prosecute any alcohol or drug abuse patient.[facility] HospitalIn the event this information is protected by the Federal Confidentiality of Alcohol and Drug Abuse Patient Records regulations: The Federal rules restrict any use of the information to criminally investigate or prosecute any alcohol or drug abuse patient.[facility] HospitalIn the event this information is protected by the Federal Confidentiality of Alcohol and Drug Abuse Patient Records regulations: The Federal rules restrict any use of the information to criminally investigate or prosecute any alcohol or drug abuse patient.[facility] HospitalIn the event this information is protected by the Federal Confidentiality of Alcohol and Drug Abuse Patient Records regulations: The Federal rules restrict any use of the information to criminally investigate or prosecute any alcohol or drug abuse patient.[facility] HospitalIn the event this information is protected by the Federal Confidentiality of Alcohol and Drug Abuse Patient Records regulations: The Federal rules restrict any use of the information to criminally investigate or prosecute any alcohol or drug abuse patient.[facility] HospitalIn the event this information is protected by the Federal Confidentiality of Alcohol and Drug Abuse Patient Records regulations: The Federal rules restrict any use of the information to criminally investigate or prosecute any alcohol or drug abuse patient.[facility] HospitalIn the event this information is protected by the Federal Confidentiality of Alcohol and Drug Abuse Patient Records regulations: The Federal rules restrict any use of the information to criminally investigate or prosecute any alcohol or drug abuse patient.[facility] HospitalIn the event this information is protected by the Federal Confidentiality of Alcohol and Drug Abuse Patient Records regulations: The Federal rules restrict any use of the information to criminally investigate or prosecute any alcohol or drug abuse patient.[facility] HospitalIn the event this information is protected by the Federal Confidentiality of Alcohol and Drug Abuse Patient Records regulations: The Federal rules restrict any use of the information to criminally investigate or prosecute any alcohol or drug abuse patient.[facility] HospitalIn the event this information is protected by the Federal Confidentiality of Alcohol and Drug Abuse Patient Records regulations: The Federal rules restrict any use of the information to criminally investigate or prosecute any alcohol or drug abuse patient.[facility] HospitalIn the event this information is protected by the Federal Confidentiality of Alcohol and Drug Abuse Patient Records regulations: The Federal rules restrict any use of the information to criminally investigate or prosecute any alcohol or drug abuse patient.[facility] HospitalIn the event this information is protected by the Federal Confidentiality of Alcohol and Drug Abuse Patient Records regulations: The Federal rules restrict any use of the information to criminally investigate or prosecute any alcohol or drug abuse patient.[facility] HospitalIn the event this information is protected by the Federal Confidentiality of Alcohol and Drug Abuse Patient Records regulations: The Federal rules restrict any use of the information to criminally investigate or prosecute any alcohol or drug abuse patient.[facility] HospitalIn the event this information is protected by the Federal Confidentiality of Alcohol and Drug Abuse Patient Records regulations: The Federal rules restrict any use of the information to criminally investigate or prosecute any alcohol or drug abuse patient.[facility] HospitalIn the event this information is protected by the Federal Confidentiality of Alcohol and Drug Abuse Patient Records regulations: The Federal rules restrict any use of the information to criminally investigate or prosecute any alcohol or drug abuse patient.[facility] HospitalIn the event this information is protected by the Federal Confidentiality of Alcohol and Drug Abuse Patient Records regulations: The Federal rules restrict any use of the information to criminally investigate or prosecute any alcohol or drug abuse patient.[facility] HospitalIn the event this information is protected by the Federal Confidentiality of Alcohol and Drug Abuse Patient Records regulations: The Federal rules restrict any use of the information to criminally investigate or prosecute any alcohol or drug abuse patient.[facility] HospitalIn the event this information is protected by the Federal Confidentiality of Alcohol and Drug Abuse Patient Records regulations: The Federal rules restrict any use of the information to criminally investigate or prosecute any alcohol or drug abuse patient.[facility] HospitalIn the event this information is protected by the Federal Confidentiality of Alcohol and Drug Abuse Patient Records regulations: The Federal rules restrict any use of the information to criminally investigate or prosecute any alcohol or drug abuse patient.[facility] HospitalIn the event this information is protected by the Federal Confidentiality of Alcohol and Drug Abuse Patient Records regulations: The Federal rules restrict any use of the information to criminally investigate or prosecute any alcohol or drug abuse patient.[facility] HospitalIn the event this information is protected by the Federal Confidentiality of Alcohol and Drug Abuse Patient Records regulations: The Federal rules restrict any use of the information to criminally investigate or prosecute any alcohol or drug abuse patient.[facility] HospitalIn the event this information is protected by the Federal Confidentiality of Alcohol and Drug Abuse Patient Records regulations: The Federal rules restrict any use of the information to criminally investigate or prosecute any alcohol or drug abuse patient.[facility] HospitalIn the event this information is protected by the Federal Confidentiality of Alcohol and Drug Abuse Patient Records regulations: The Federal rules restrict any use of the information to criminally investigate or prosecute any alcohol or drug abuse patient.[facility] HospitalIn the event this information is protected by the Federal Confidentiality of Alcohol and Drug Abuse Patient Records regulations: The Federal rules restrict any use of the information to criminally investigate or prosecute any alcohol or drug abuse patient.[facility] HospitalIn the event this information is protected by the Federal Confidentiality of Alcohol and Drug Abuse Patient Records regulations: The Federal rules restrict any use of the information to criminally investigate or prosecute any alcohol or drug abuse patient.[facility] Reason for Visit (unrecogniz ed section and content) Reason Comments New Patient Specialty Diagnoses / Procedures Referred By Contac t Referred To Contact Infectious Diseases Diagnoses Pre-operative cardiovascular examination Benign neoplasm of heart Procedures CONSULT TO INFECTIOUS DISEASES OFFICE/OUTPATIENT NEW HIGH MDM 60 MINUTES Janell Gonzáles MD [address] [facility] [place] [id number] Phone: tel: fax: Referral ID Status Reason Start Date Expiration Date V isits Requested Visits Authorized [id number] Closed PCP Requested Referral 08/15/2024 08/15/2025 1 [...] CAPACITY (DLCO) DIFFUSING CAPACITY Janell Gonzáles MD [address] [facility] [place] [place] [address] [facility] [address] [place] [address] Referral ID Status Reason Start Date Expiration Date V isits Requested Visits Authorized [id number] Closed Auto-Generate d Referral 06/10/2024 07/10/2025 1 1 Specialty Diagnoses / Procedures Referred By Contac t Referred To Contact [facility] Diagnoses 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 Procedures CONSULT TO CARDIOLOGY OFFICE/OUTPATIENT NEW HIGH MDM 60 MINUTES Janell Gonzáles MD [address] [place] [address] Referral ID Status Reason Start Date Expiration Date V isits Requested Visits Authorized [id number] Closed PCP Requested Referral 06/10/2024 06/10/2025 [address] Specialty Diagnoses / Procedures Referred By Contac t Referred To Contact CT IMAGING Diagnoses 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 Procedures CTA CHEST (GATED) W IVCON CT ANGIOGRAPHY CHEST W/CONTRAST/NONCONTRAST Janell Gonzáles MD [address] [place] [address] Ct [facility] [place] [address] Referral ID Status Reason Start Date Expiration Date V isits Requested Visits Authorized [id number] Closed Auto-Generate d Referral 06/10/2024 07/10/2025 1 1 Reason Comments Radiology [place] Specialty Diagnoses / Procedures Referred By Contac t Referred To Contact MOLECULAR & FUNCTIONAL IMAGING Diagnoses Disorder of artery or arteriole (HCC) Other specified symptoms and signs involving the circulatory and respiratory systems Benign neoplasm of heart Procedures NM LUNG VENT / PERF VQ PULMONARY VENTILATION & PERFUSION IMAGING Janell Gonzáles MD [address] [place] [address] Molecular & Functional Imaging [address] [place] [address] Referral ID Status Reason Start Date Expiration Date V isits Requested Visits Authorized [id number] Closed Auto-Generate d Referral 06/10/2024 07/10/2025 1 1 Specialty Diagnoses / Procedures Referred By Contac t Referred To Contact Cardiac Surg Diagnoses 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 Procedures CARDIOTHORACIC PREOP EVALUATION OFFICE/OUTPATIENT NEW HIGH MDM 60 MINUTES Janell Gonzáles MD [address] [place] [address] Referral ID Status Reason Start Date Expiration Date V isits Requested Visits Authorized [id number] Closed PCP Requested Referral 06/10/2024 06/10/2025 1 1 Specialty Diagnoses / Procedures Referred By Contac t Referred To Contact Pulmonary and Critical Care Medicine Diagnoses Left atrial mass Bronchiectasis without complication (HCC) Procedures CONSULT TO PULM/CRITICAL CARE OFFICE/OUTPATIENT NEW HIGH MDM 60 MINUTES Janell Gonzáles MD [address] [place] [address] Referral ID Status Reason Start Date Expiration Date V isits Requested Visits Authorized [id number] Closed PCP Requested Referral 07/12/2024 07/12/2025 1 1 Reason Comments Referral Information Follow Up Reason Comments Referral Information Cardiac Preop Checklist Reason Comments Patient Education Reason Comments Radio Main J1 Reason Comments Pre-Op Exam Reason Comments Patient Update Reason Comments Patient Question 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 [facility]. provides no warranty or guarantee of the accuracy or completeness of information in this document.
== END 2025-04-16 08:09 | disposition home or self-care (01) ==
LOC: LAB 09:22
PROVIDERS: PCP Family Medicine; Visit Provider Family Medicine
DX: R05.8 Other specified cough (principal); Z51.81 Encounter for therapeutic drug level monitoring
CPT/HCPCS: 87116; 87206